=== PATIENT | male | born 1940 | race Caucasian/White ===

== ENCOUNTER 2018-08-12 11:35 | Inpatient (IN) | payer OTHER, SELFPAY ==
[2018-08-12 11:42] VITALS: BP 136/78; PULSE 100; RESP 16; TEMP 36
[2018-08-12 12:29] LABS: Bilirubin Negative (Negative); Blood Large (Negative); Clarity Cloudy; Glucose Negative (Negative); Ketones Trace mg/dL (Negative); Leukocyte Esterase Moderate (Negative); Nitrite Negative (Negative)
[2018-08-12 12:37] LABS: RBC >50 (0-2); WBC 20-50 HPF (0-5)
[2018-08-12 12:38] LABS: Bacteria Many HPF (Negative); C & S Indicated? Yes; Casts Negative LPF (Negative); Crystals Negative HPF (Negative); Epithelial Cells Rare HPF (Negative); Mucus Trace (Negative)
[2018-08-12 12:39] LABS: Abs Immature Grans 0.04 k/cumm (0.0-0.09); Absolute Basophil Count 0.03 k/cumm (0.0-0.2); Absolute Eosinophil Count 0.02 k/cumm (0.0-0.7); Absolute Lymphocyte Count 1.25 k/cumm (1.2-3.4); Absolute Monocyte Count 1.53 k/cumm (0.11-0.7); Basophils % 0.3; Eosinophils % 0.2; HCT 37.2 % (40.0-50.0); Immature Grans % 0.4; Lymphocytes % 11.2; Mean Corp. HGB Concentration 32.3 g/dL (32.0-36.0); Mean Corpuscular Hemoglobin 29.3 pg (27.0-33.0); Mean Corpuscular Volume 90.7 fL (80-95); Mean Platelet Volume 9.4 fL (8.0-11.0); Monocytes % 13.7; Neutrophils % 74.2; Platelet Count 176 x1000/uL (130-400); RBC Distribution Width 14.6 % (11.8-14.1); White Blood Cell Count 11.17 k/cumm (4.4-10.8)
[2018-08-12 12:40] LABS: Absolute Neutrophil Count 8.29 k/cumm (1.2-6.7)
[2018-08-12 12:52] LABS: ALT 45 U/L (12-78); AST 45 U/L (15-37); Albumin 2.5 g/dL (3.4-5.0); Alkaline Phosphatase 119 U/L (46-116); Anion Gap 7.2 mmol/L (3-11); BUN 27 mg/dL (7-18); Bilirubin, Total 1.9 mg/dL (0.2-1.0); CO2 25.8 mmol/L (21.0-32.0); CREATININE 2.31 mg/dL (0.70-1.30); Calcium 10.8 mg/dL (8.5-10.1); Chloride 101 mmol/L (98-107); Glucose 294 mg/dL (70-100); Potassium 4.6 mmol/L (3.5-5.1); Sodium 134 mmol/L (136-145)
[2018-08-12 13:17] LABS: RBC Morphology Normal
[2018-08-12] MEDS: Normal Saline 1,000 ML 250 ML IV (13:25)
--- NOTE | 2018-08-12 14:14 | ED.GENADUL_ITS ---
Discharge Plan Disposition Patient Disposition: [facility] INPATIENT Condition: Improving Discharge Details Chief Complaint: Urinary Clinical Impression: UTI (urinary tract infection), Acute renal insufficiency Reason For Visit: UTI,KENNETH,URINARY RETENTION Admit Date/Time: 08/12/18 14:50 Admit Provider: Tonny Carmona Attending Provider: Tonny Carmona Primary Care Provider: Ricardo Luis ED Provider: Parker Forman Discharge Data Discharge Date/Time-TO BE ENTERED AT DEPARTURE: 08/12/18 16:06 Medical Decision Making Patient presenting to the emergency department for chief complaint of urinary retention and suprapubic pain. states on Saturday patient began complaining of some urinary retention and chills. Initially this seemed slightly worse than his normal urinary retention but over the last couple days it is become more severe this morning started having a little more than dribbling urination and chills, weakness, mild confusion. states approximately a month ago patient was done at [facility] for urinary catheter placement that remained in place for 2 weeks due to urinary retention. Patient does have history of BPH. Physical exam shows some suprapubic tenderness otherwise no other acute findings are noted. To my examination director of medical staff services noted patient to have at least 800 mL's of urinary retention so Knox catheter verbal order was given. Requested nurse to send urinalysis off that sample. At time of my examination patient did state improvement in discomfort. Urine was very cloudy, blood- tinged, and mucousy. Plan to check labs, establish IV access, and give some fluids. Evaluation of patient's labs show a obvious urinary tract infection, mild leukocytosis, hyperglycemia, and some acute kidney injury. Patient was ordered 1 g of Rocephin and I did discuss with patient admission to the hospital due to mild confusion, urinary tract infection, and generalized weakness. Patient and family member were in agreement with this plan. I contacted inpatient hospitalist agreed to have patient admitted for further treatment and stabilization. Report was given to Dr. Carmona whom accepted pain Medical Records Medical records reviewed: Yes I reviewed the patient's medical records. Lab Data Lab results reviewed: Yes I reviewed the patient's lab results. HPI General Mode of arrival: wheelchair . Date/Time Provider Initiated Documentation: 08/12/18 11:48 . Limitations to Documentation: no limitations . Information obtained by: patient, family, RN notes reviewed and old records reviewed . History of Present Illness 77 year old M presents to the emergency department with the chief complaint of Urinary retention, described as severe, with intensity rated at 9. Quality is described as sharp, and is localized to the abdomen (superpubic). Patient reports no radiation. Patient started experiencing this day(s) (3) and it has been constant. No relieving factors improve symptom(s), No exacerbating factors reported . Patient notes no other symptoms.. Patient did receive the following treatments prior to arrival, none Related Data Home Medications Medication Instructions Recorded Confirmed multivitamin [Daily Multiple] 1 ea PO DAILY 12/11/16 08/12/18 blood sugar diagnostic [OneTouch #90 strip 02/12/17 08/12/18 Ultra Test] blood-glucose meter [OneTouch #1 kit 02/12/17 08/12/18 Ultra2] lancets [PansieveTouch UltraSoft #90 ea 02/12/17 08/12/18 Lancets] metformin 500 mg PO BID #180 tab-cap 04/17/17 08/12/18 amlodipine 5 mg PO DAILY #90 tab-cap 09/13/17 08/12/18 warfarin [Jantoven] 1 tab PO DIRECTED #180 tab 01/21/18 08/12/18 omeprazole 20 mg PO DAILY cap 04/15/18 08/12/18 furosemide 20 mg PO DAILY #90 tab 05/13/18 08/12/18 losartan 50 mg PO DAILY #90 tab-cap 07/09/18 08/12/18 potassium chloride [Klor-Con M10] 10 meq PO DAILY #90 tabcr 07/09/18 08/12/18 pravastatin 40 mg PO QPM #90 tab 07/09/18 08/12/18 metoprolol tartrate 50 mg PO BID 08/12/18 08/12/18 cephalexin [Keflex] 500 mg PO TID #20 cap 08/17/18 Previous Rx's Medication Instructions Recorded amlodipine 5 mg PO DAILY #90 tab-cap 09/13/17 warfarin [Jantoven] 1 tab PO DIRECTED #180 tab 01/21/18 furosemide 20 mg PO DAILY #90 tab 05/13/18 losartan 50 mg PO DAILY #90 tab-cap 07/09/18 potassium chloride [Klor-Con M10] 10 meq PO DAILY #90 tabcr 07/09/18 pravastatin 40 mg PO QPM #90 tab 07/09/18 cephalexin [Keflex] 500 mg PO TID #20 cap 08/17/18 Allergies Allergy/AdvReac Type Severity Reaction Status Date / Time No Known Allergies Allergy Unverified 06/04/18 11:23 General Stated Complaint: Urinary GISSEL: 3 Review of Systems Constitutional Reports chills, Reports fatigue, Reports fever(s), Reports malaise and Reports weakness Cardiovascular Denies chest pain and Denies dyspnea Respiratory Denies dyspnea Gastrointestinal Denies abdominal pain, Denies diarrhea, Denies nausea and Denies vomiting Genitourinary Reports as per HPI, Denies flank pain, Denies testicular pain, Reports urinary frequency, Reports urinary hesitancy, Reports urinary incontinence and Reports urinary urgency Integumentary/Breasts Denies rash Neurologic Reports confusion (mild) and Reports weakness Psychiatric Reports confusion (mild) Endocrine Reports fatigue PFSH Family History Mother Diabetes Heart disease Father Neoplasm Brother Neoplasm Brother No problems noted. Daughter No problems noted. Medical History BPH (benign prostatic hyperplasia) (Chronic) Afib (Chronic) GERD (gastroesophageal reflux disease) (Chronic) Hyperlipidemia (Acute) Hypertension (Chronic) Social History household members: spouse current occupational status: retired pets and animals: No Smoking/Tobacco Use Status: Never alcohol intake: current alcohol intake frequency: a few times a month substance use type: does not use special amor needs: No Surgical History Cholecystectomy (~1985) Colonoscopy - MAC (~2002) Replacement of total knee joint Tonsillectomy and adenoidectomy Exam Const General: cooperative Orientation: alert, awake and oriented x3 HENMT Head: normal to inspection Ears: hearing grossly normal bilaterally Mouth: oral mucosa abnormal (dry) Resp Effort & Inspection: normal respiratory effort and able to speak in complete sentences Auscultation: clear to auscultation bilaterally Cardio Rate: regular rate Rhythm: regular rhythm and regular rhythm Heart Sounds: S1 normal and S2 normal GI Inspection: obesity Palpation: soft, not firm and nontender Auscultation: normal bowel sounds Back/Spine/Pelvis Back: no CVA tenderness Skin General skin exam: no rashes or lesions noted and dry skin Rashes: no rashes Neuro General: alert, awake and oriented x3 Course 77-year-old man admitted with a complicated UTI. His urine ended up growing out 2 forms of Klebsiella both nearly pansensitive. He was treated with IV ceftriaxone with resultant improvement in his symptoms. He has urinary retention and is being worked up by Dr. Hobbs from urology. He had a Knox catheter for the first few days and successfully passed a voiding trial, he is voiding on his own in adequate amounts. He has hyperparathyroidism and ran an elevated calcium level of 11.0, corrects to 12.2. He has follow-up with surgery for what sounds like a parathyroidectomy on 08/20/2018 at [facility]. Vital Signs Temperature 36 C L 08/12/18 11:42 Pulse 100 H 08/12/18 11:42 Respiratory Rate 16 08/12/18 11:42 Blood Pressure 136/78 08/12/18 11:42 Temperature 36 C L 08/12/18 11:42 Pulse 100 H 08/12/18 11:42 Respiratory Rate 16 08/12/18 11:42 Respiratory Effort 08/12/18 11:46 Blood Pressure 136/78 08/12/18 11:42 Lab/Test Results Lab/Test Results: 08/12/18 12:15 Urine - Reflex from Ua Urine Culture - Pending Laboratory Tests Range/Units 08/12/18 08/12/18 08/12/18 12:15 12:20 12:20 WBC (4.4-10.8) k/cumm 11.17 H RBC (4.50-6.00) m/cumm 4.10 L Hgb (13.5-17.5) g/dL 12.0 L Hct (40.0-50.0) % 37.2 L MCV (80-95) fL 90.7 MCH (27.0-33.0) pg 29.3 MCHC (32.0-36.0) g/dL 32.3 RDW (11.8-14.1) % 14.6 H Plt Count (130-400) x1000/uL 176 MPV (8.0-11.0) fL 9.4 Immature Gran % 0.4 Neutrophils % 74.2 Lymphocytes % 11.2 Monocytes % 13.7 Eosinophils % 0.2 Basophils % 0.3 Absolute Neutrophils (1.2-6.7) k/cumm 8.29 H Absolute Lymphocytes (1.2-3.4) k/cumm 1.25 Absolute Monocytes (0.11-0.7) k/cumm 1.53 H Absolute Eosinophils (0.0-0.7) k/cumm 0.02 Absolute Basophils (0.0-0.2) k/cumm 0.03 Differential Comment Comment RBC Morphology Normal Sodium (136-145) mmol/L 134 L Potassium (3.5-5.1) mmol/L 4.6 Chloride (98-107) mmol/L 101 Carbon Dioxide (21.0-32.0) mmol/L 25.8 Anion Gap (3-11) mmol/L 7.2 BUN (7-18) mg/dL 27 H Creatinine (0.70-1.30) mg/dL 2.31 H Estimated GFR/1.73 m2 (mL/min/1.73m2) 27.50 Glucose (70-100) mg/dL 294 H Calcium (8.5-10.1) mg/dL 10.8 H Total Bilirubin (0.2-1.0) mg/dL 1.9 H AST (15-37) U/L 45 H ALT (12-78) U/L 45 Alkaline Phosphatase (46-116) U/L 119 H Total Protein (6.4-8.2) g/dL 7.0 Albumin (3.4-5.0) g/dL 2.5 L Urine Color (Yellow) Brown Urine Clarity Cloudy Urine pH (5-8) 7.0 Ur Specific [place] (1.005-1.025) 1.020 Urine Protein (Negative) mg/dL >=300 H Urine Ketones (Negative) mg/dL Trace H Urine Blood (Negative) Large H Urine Nitrite (Negative) Negative Urine Bilirubin (Negative) Negative Urine Urobilinogen (Up TO 0.2) EU/dL 1.0 H Ur Leukocyte Esterase (Negative) Moderate H Urine RBC (0-2) >50 H Urine WBC (0-5) HPF 20-50 Ur Epithelial Cells (Negative) HPF Rare Urine Crystals (Negative) HPF Negative Urine Bacteria (Negative) HPF Many Urine Casts (Negative) LPF Negative Urine Mucus (Negative) Trace Ur Culture Indicated? Yes Urine Glucose (Negative) mg/dL Negative
[2018-08-12 14:18] LABS: Lactate-non-spesis 2.2 mmol/L (0.6-1.4)
[2018-08-12 15:48] LABS: Prothrombin Time 52.4 sec (9.3-10.8)
[2018-08-12 15:53] LABS: INR 5.7 (1.0-3.5); PTT Activated 60.2 sec (21.0-31.4)
[2018-08-12 16:31] VITALS: BP 140/88; PULSE 96; RESP 20; TEMP 38.6; O2SAT 95
[2018-08-12 16:50] VITALS: BP 140/88; PULSE 96; RESP 20; TEMP 38.6; O2SAT 94
[2018-08-12] MEDS: LEVOFLOXACIN 750 MG/150 ML BAG 150 MG IVPB (17:14)
--- NOTE | 2018-08-12 18:22 | HOME_ITS ---
Home Ventilator Equipment Home care company [employer] Reason: Obstructive Sleep Apnea Make: Respironics Model: Dreamstation Mask type: Face mask Mask size: Large Mode: BiPAP Settings: /6 PS 4.0 Oxygen bleed in (lpm): 0 Condition: Good Date last checked: 08/12/18 Year of last sleep study: Compliance Daily Comments:
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
--- NOTE | 2018-08-12 19:08 | NUR.NOTE ---
1633-Pt admitted from the ED via stretcher. Pt stood and pivoted from the stretcher to his bed with 2 assist. Balance noted to be poor. Pt SOB related to this transfer activity. VSS upon arrival. See initial shift assesment for arrival head to toe assesment.
[2018-08-12 19:21] VITALS: TEMP 38.6
[2018-08-12] MEDS: Acetaminophen 325 MG TAB PO (19:21)
[2018-08-12] MEDS: Metoprolol 50 MG TAB PO (19:21)
[2018-08-12] MEDS: Pravastatin 40 MG TAB PO (19:21)
[2018-08-12] MEDS: Normal Saline 1,000 ML 75 ML IV (22:44)
[2018-08-12 23:44] VITALS: BP 142/74; PULSE 87; RESP 22; TEMP 37.7; O2SAT 96
[2018-08-13 07:05] VITALS: RESP 18; O2SAT 94
[2018-08-13 07:27] LABS: Abs Immature Grans 0.04 k/cumm (0.0-0.09); Absolute Basophil Count 0.02 k/cumm (0.0-0.2); Absolute Eosinophil Count 0.05 k/cumm (0.0-0.7); Absolute Lymphocyte Count 1.55 k/cumm (1.2-3.4); Absolute Monocyte Count 1.37 k/cumm (0.11-0.7); Absolute Neutrophil Count 7.53 k/cumm (1.2-6.7); Basophils % 0.2; Eosinophils % 0.5; HCT 35.5 % (40.0-50.0); HGB 11.4 g/dL (13.5-17.5); Immature Grans % 0.4; Lymphocytes % 14.7; Mean Corp. HGB Concentration 32.1 g/dL (32.0-36.0); Mean Corpuscular Hemoglobin 29.1 pg (27.0-33.0); Mean Corpuscular Volume 90.6 fL (80-95); Mean Platelet Volume 10.2 fL (8.0-11.0); Neutrophils % 71.2; Platelet Count 176 x1000/uL (130-400); RBC 3.92 m/cumm (4.50-6.00); RBC Distribution Width 14.4 % (11.8-14.1); White Blood Cell Count 10.56 k/cumm (4.4-10.8)
[2018-08-13 07:39] LABS: Prothrombin Time 46.9 sec (9.3-10.8)
[2018-08-13 07:43] LABS: Anion Gap 8.7 mmol/L (3-11); BUN 33 mg/dL (7-18); CO2 21.3 mmol/L (21.0-32.0); CREATININE 2.41 mg/dL (0.70-1.30); Calcium 10.8 mg/dL (8.5-10.1); Chloride 104 mmol/L (98-107); Estimated GFR 26.19 (mL/min/1.73m2); Glucose 189 mg/dL (70-100); Potassium 4.4 mmol/L (3.5-5.1); Sodium 134 mmol/L (136-145)
--- NOTE | 2018-08-13 07:43 | DI.US_ITS ---
SYMPTOM/DIAGNOSIS: KENNETH, URINARY OBSTRUCTION, UTI RENAL ULTRASOUND: The study is technically limited due to the patient's body habitus. The right kidney measures 13.7 x 7.2 x 6.0 cm. There are multiple stones. There is no evidence of gross hydronephrosis. There is a 7.5 x 8.1 x 6.3 cm cyst in the lateral portion of the kidney. The left kidney measures 139 x 7 8 cm. There are multiple stones and no evidence of gross hydronephrosis. A Knox catheter is identified in place in an empty bladder.
[2018-08-13 07:55] LABS: INR 5.1 (1.0-3.5)
[2018-08-13 08:05] VITALS: BP 138/102; PULSE 67; RESP 26; TEMP 37.5; O2SAT 97
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
[2018-08-13 09:14] LABS: Lactate-non-spesis 1.4 mmol/L (0.6-1.4)
[2018-08-13] MEDS: Multivitamin TAB 1 TAB PO (09:37)
[2018-08-13] MEDS: Normal Saline Flush 10 ML SYR (09:37)
[2018-08-13] MEDS: Potassium Chloride 10 MEQ TABCR PO (09:37)
[2018-08-13] MEDS: Metoprolol 50 MG TAB PO ×2 (09:37→19:26)
[2018-08-13] MEDS: Tamsulosin 0.4 MG CAPCR PO (09:38)
[2018-08-13] MEDS: Omeprazole 20 MG CAPCR PO (09:38)
[2018-08-13] MEDS: Insulin Aspart 300 UNITS/3 ML PEN SC ×3 (09:38→17:15)
[2018-08-13] MEDS: amLODIPine 5 MG TAB PO (09:38)
--- NOTE | 2018-08-13 12:42 | PHARADMIT ---
Addendum entered by Jose Sullivan III 08/15/18 16:17: Pharmacy Note Subjective Urine sensitivities show Klebsiella sens> to Rocephin. Zosyn/Levaquin DC'd Objective VS-OK INR-5.2 K+4.5 SCr-1.92 H&H-up Plts-OK BM yesterday Assessment Lasix & ARB held due to KENNETH, Lopressor & Norvasc continue wit parameters. Plan If urinary etention continues will be consulted Original Note: Addendum entered by Jose Sullivan III 08/14/18 15:54: Pharmacy Note Subjective Fevers persistent x 2 days on Levaquin, Zosyn 4.5gm IV q6hrs added. Treating UTI with urinary retention. Objective VS-OK INR-4.6 Lytes,-ok SCr-2.19 H&H-10.3/32.5 Plts-175 BM today Assessment Flomax started. MD waiting for INR to decrease (does not want Vit-K at this time) Plan Watch renal function and ABX dosing Original Note: Admission Pharmacy Clinical Review UTI, KENNETH, Urinary retention Code Status Full Code Current Weight Wgt-142.3 kg Renally Cleared and Narrow Therapeutic Index Meds CrCl~ 29 mL/min Meds-OK QTc Value / Action Taken NA BP Control, Fever BP-138/102 Tmax- 37.7C Electrolytes reviewed Na- 134 K+4.4 DVT Prophylaxis No High INR (5.1) Opiate Usage / Scheduled Bowel Regimen Ordered No Yes Plt/SCr for Heparin / Enoxaparin Plts-176 SCr- 2.41 INR for Warfarin INR-5.1 H/H stable, WBC/Bands H&H- 11.4/35.5 WBC- 10.56 Antibiotic appropriateness Levaquin Cultures and Sensitivities Urine- Gram (-) lam Surgical ABX d/c within 24 hr na DM control / Insulin Dosing BG-189 Aspart, Heart Failure (Check EF%) (MIS's, B-Block, Diuretics) Norvasc, Lopressor IV to PO Switch No Home Meds Reviewed Yes Home Meds Not Ordered Wafarin-on hold, Lasix. Losartan, Metformin Comments
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
--- NOTE | 2018-08-13 14:19 | NT_ITS ---
Date of service: 08/13/18 Time of Service: 14:19 PT Notes 08/13/18 Patient refused afternoon PT session, stating that he was in too much pain. Shirlene Barber, CLAIM SPECIALIST
[2018-08-13] MEDS: Normal Saline 1,000 ML 75 ML IV (14:21)
[2018-08-13 16:07] VITALS: BP 95/60; PULSE 87; RESP 20; TEMP 37.2; O2SAT 95
--- NOTE | 2018-08-13 16:31 | W.PM.PROGNOT ---
Date of service: 08/13/18 Time of Service: 16:32 Assessment and Plan (1) Acute renal insufficiency: Current visit: No Status: Acute In setting of urinary retention, likely obstructive nephropathy. Treat urinary tract infection and continue Griffin catheter. No evidence of hydronephrosis by ultrasound. Monitor kidney function with daily renal panel, avoid nephrotoxins, and renally dose medications when appropriate. Will also attempt to treat patient's prostatic hypertrophy with an alpha geraldine. (2) BPH (benign prostatic hyperplasia): Current visit: Yes Status: Chronic Initiate Flomax. Currently with evidence of urinary retention in setting of acute infection and acute infection ? continue Rgiffin catheter with plans for voiding trial in the near future. (3) Afib: Current visit: Yes Status: Chronic Continue beta-geraldine therapy. Hold Coumadin in setting of supratherapeutic INR, and monitor INR daily. (4) GERD (gastroesophageal reflux disease): Current visit: Yes Status: Chronic On daily omeprazole. (5) Essential hypertension, benign: Current visit: Yes Status: Chronic Continue beta-geraldine and calcium channel geraldine therapy with hold parameters. Currently with ARB and Lasix on hold due to acute kidney injury. (6) Hyperlipidemia: Current visit: Yes Status: Chronic Continue pravastatin. (7) Diabetes mellitus type 2 in obese: Current visit: Yes Status: Chronic Hold Metformin, Continue sliding scale coverage, and ADA diet. (8) LUCAS on CPAP: Current visit: Yes Status: Chronic Home CPAP ordered. (9) UTI (urinary tract infection): Current visit: No Status: Acute Continue renally dosed Levaquin, currently day #2, and monitor urine and blood cultures. Urine currently with Gram negative rods, not yet speciated. (10) CHF (congestive heart failure): Current visit: Yes Status: Chronic History of nonischemic cardiomyopathy, with last ejection fraction showing 45-50% by echo in 2016. Currently with furosemide and ARB on hold secondary to acute kidney injury, patient is also receiving gentle hydration secondary to kidney injury. Monitor fluid status carefully. While overall volume overloaded chronically, he does not appear to be acutely in heart failure. (11) DVT prophylaxis: Current visit: Yes Status: Acute Monitor daily INR. Subjective Interval history since last seen: 77-year-old man with past medical history significant for A. fib, nonischemic cardiomyopathy with an EF of 45-50%, LUCAS, and diabetes admitted from [facility] emergency department with evidence of Urinary Retention, UTI, and KENNETH. Mr. Winkler developed urinary retention requiring Griffin catheter placement at [facility], with successful removal following a 2-week course of Griffin placement. The patient's spouse also remarks that there was evidence of numerous kidney stones on imaging, and that he was scheduled to follow-up with urology in the future. She states that his urinary retention was on the basis of an enlarged prostate, but that no specific treatments was prescribed to him. The patient began having symptoms 2 days prior to admission that included shaking chills, urinary frequency, pyuria, and hematuria. He was admitted and started on antibiotic therapy, with a griffin catheter placed and started on concurrent alpha-geraldine. Today he reports some improvement overall in his symptoms, and he has remained afebrile since last night. No other events reported. Exam Narrative Exam Narrative: General: Patient appears comfortable, sitting up in bed, AAOX3, NAD Neck: Supple CV: Regular, mildly tachycardic, S1S2,. Obese in contour. Murmurs, or gallops. Pulmonary: Clear to auscultation bilaterally, no crackles, wheezing, or rhonchi. Appears tachypneic but reports it's his baseline. Abdomen: + Bowel Sounds, soft, nontender, nondistended. Obese in contour. Vascular: 2+ bilateral lower extremity edema with chronic hyperpigmentation : Griffin Catheter in place draining bloody appearing urine Psych: Normal mood and affect. Objective Objective Clinical Data: Abnormal lab results 08/13/18 08/13/18 08/13/18 Range/Units 06:50 06:50 06:50 RBC 3.92 L (4.50-6.00) m/cumm Hgb 11.4 L (13.5-17.5) g/dL Hct 35.5 L (40.0-50.0) % RDW 14.4 H (11.8-14.1) % Absolute Neutrophils 7.53 H (1.2-6.7) k/cumm Absolute Monocytes 1.37 H (0.11-0.7) k/cumm PT 46.9 H (9.3-10.8) sec INR 5.1 H* D (1.0-3.5) Sodium 134 L (136-145) mmol/L BUN 33 H (7-18) mg/dL Creatinine 2.41 H (0.70-1.30) mg/dL Glucose 189 H D (70-100) mg/dL Calcium 10.8 H (8.5-10.1) mg/dL Vital Signs Temperature 37.2 C 08/13/18 16:07 Temperature Source Tympanic 08/13/18 16:07 Pulse 87 08/13/18 16:07 Pulse Rhythm Regular 08/13/18 09:30 Respiratory Rate 20 08/13/18 16:07 Respiratory Effort Non-Labored 08/13/18 09:30 Respiratory Depth Normal 08/13/18 09:30 Respiratory Pattern Normal 08/13/18 09:30 Blood Pressure 95/60 L 08/13/18 16:07 Pulse Oximetry 95 08/13/18 16:07 Oxygen Delivery Method Room Air 08/13/18 16:07 Oxygen Flow Rate 0 08/13/18 16:07 Fraction of Inspired Oxygen (FIO2) 21 08/13/18 07:05 Pain Level 0 08/12/18 16:50 Intake & Output 08/12/18 08/13/18 08/13/18 23:59 11:59 23:59 Intake Total 1250 / 1250 Output Total 3750 / 3750 350 / 350 750 / 750 Balance -3750 / -3750 -340 / -340 500 / 500 Weight 142.3 kg Intake: IV 1000 / 1000 Oral 250 / 250 Output: Urine 3750 / 3750 350 / 350 750 / 750 Other: Urine Color Dark Red Dark Red Dark Red Urine Appearance Cloudy Clear Hematuria Hematuria Clots Voiding Methods Indwelling Catheter Laboratory Results WBC 10.56 k/cumm (4.4-10.8) 08/13/18 06:50 RBC 3.92 m/cumm (4.50-6.00) L 08/13/18 06:50 Hgb 11.4 g/dL (13.5-17.5) L 08/13/18 06:50 Hct 35.5 % (40.0-50.0) L 08/13/18 06:50 MCV 90.6 fL (80-95) 08/13/18 06:50 MCH 29.1 pg (27.0-33.0) 08/13/18 06:50 MCHC 32.1 g/dL (32.0-36.0) 08/13/18 06:50 RDW 14.4 % (11.8-14.1) H 08/13/18 06:50 Plt Count 176 x1000/uL (130-400) 08/13/18 06:50 MPV 10.2 fL (8.0-11.0) 08/13/18 06:50 Immature Gran % 0.4 08/13/18 06:50 Neutrophils % 71.2 08/13/18 06:50 Lymphocytes % 14.7 08/13/18 06:50 Monocytes % 13.0 08/13/18 06:50 Eosinophils % 0.5 08/13/18 06:50 Basophils % 0.2 08/13/18 06:50 Absolute Neutrophils 7.53 k/cumm (1.2-6.7) H 08/13/18 06:50 Absolute Lymphocytes 1.55 k/cumm (1.2-3.4) 08/13/18 06:50 Absolute Monocytes 1.37 k/cumm (0.11-0.7) H 08/13/18 06:50 Absolute Eosinophils 0.05 k/cumm (0.0-0.7) 08/13/18 06:50 Absolute Basophils 0.02 k/cumm (0.0-0.2) 08/13/18 06:50 Differential Comment Comment 08/12/18 12:20 RBC Morphology Normal 08/12/18 12:20 PT 46.9 sec (9.3-10.8) H 08/13/18 06:50 INR 5.1 (1.0-3.5) H* D 08/13/18 06:50 APTT 60.2 sec (21.0-31.4) H 08/12/18 15:10 Sodium 134 mmol/L (136-145) L 08/13/18 06:50 Potassium 4.4 mmol/L (3.5-5.1) 08/13/18 06:50 Chloride 104 mmol/L (98-107) 08/13/18 06:50 Carbon Dioxide 21.3 mmol/L (21.0-32.0) 08/13/18 06:50 Anion Gap 8.7 mmol/L (3-11) 08/13/18 06:50 BUN 33 mg/dL (7-18) H 08/13/18 06:50 Creatinine 2.41 mg/dL (0.70-1.30) H 08/13/18 06:50 Estimated GFR/1.73 m2 26.19 (mL/min/1.73m2) 08/13/18 06:50 Glucose 189 mg/dL (70-100) H D 08/13/18 06:50 Lactate 1.4 mmol/L (0.6-1.4) 08/13/18 09:03 Calcium 10.8 mg/dL (8.5-10.1) H 08/13/18 06:50 Total Bilirubin 1.9 mg/dL (0.2-1.0) H 08/12/18 12:20 AST 45 U/L (15-37) H 08/12/18 12:20 ALT 45 U/L (12-78) 08/12/18 12:20 Alkaline Phosphatase 119 U/L (46-116) H 08/12/18 12:20 Total Protein 7.0 g/dL (6.4-8.2) 08/12/18 12:20 Albumin 2.5 g/dL (3.4-5.0) L 08/12/18 12:20 Urine Color Brown (Yellow) 08/12/18 12:15 Urine Clarity Cloudy 08/12/18 12:15 Urine pH 7.0 (5-8) 08/12/18 12:15 Ur Specific Rice 1.020 (1.005-1.025) 08/12/18 12:15 Urine Protein >=300 mg/dL (Negative) H 08/12/18 12:15 Urine Ketones Trace mg/dL (Negative) H 08/12/18 12:15 Urine Blood Large (Negative) H 08/12/18 12:15 Urine Nitrite Negative (Negative) 08/12/18 12:15 Urine Bilirubin Negative (Negative) 08/12/18 12:15 Urine Urobilinogen 1.0 EU/dL (Up TO 0.2) H 08/12/18 12:15 Ur Leukocyte Esterase Moderate (Negative) H 08/12/18 12:15 Urine RBC >50 (0-2) H 08/12/18 12:15 Urine WBC 20-50 HPF (0-5) 08/12/18 12:15 Ur Epithelial Cells Rare HPF (Negative) 08/12/18 12:15 Urine Crystals Negative HPF (Negative) 08/12/18 12:15 Urine Bacteria Many HPF (Negative) 08/12/18 12:15 Urine Casts Negative LPF (Negative) 08/12/18 12:15 Urine Mucus Trace (Negative) 08/12/18 12:15 Ur Culture Indicated? Yes 08/12/18 12:15 Urine Glucose Negative mg/dL (Negative) 08/12/18 12:15 Objective Narrative Objective Narrative: Exam(s) a US:US renal SYMPTOM/DIAGNOSIS: KENNETH, URINARY OBSTRUCTION, UTI RENAL ULTRASOUND: The study is technically limited due to the patient's body habitus. The right kidney measures 13.7 x 7.2 x 6.0 cm. There are multiple stones. There is no evidence of gross hydronephrosis. There is a 7.5 x 8.1 x 6.3 cm cyst in the lateral portion of the kidney. The left kidney measures 139 x 7 8 cm. There are multiple stones and no evidence of gross hydronephrosis. A Griffin catheter is identified in place in an empty bladder.
[2018-08-13] MEDS: Pravastatin 40 MG TAB PO (19:26)
[2018-08-14] VITALS (7 sets, daily range): BP systolic 90–113; BP diastolic 58–73; PULSE 74–90; RESP 22–24; TEMP 36.2–38.2; O2SAT 93–97
[2018-08-14] MEDS: Normal Saline 1,000 ML 75 ML IV ×2 (04:05→19:11)
[2018-08-14 07:48] LABS: Abs Immature Grans 0.02 k/cumm (0.0-0.09); Anion Gap 7.7 mmol/L (3-11); BUN 38 mg/dL (7-18); CO2 21.3 mmol/L (21.0-32.0); CREATININE 2.19 mg/dL (0.70-1.30); Calcium 10.3 mg/dL (8.5-10.1); Chloride 106 mmol/L (98-107); Estimated GFR 29.25 (mL/min/1.73m2); Glucose 205 mg/dL (70-100); HCT 32.5 % (40.0-50.0); HGB 10.3 g/dL (13.5-17.5); Mean Corp. HGB Concentration 31.7 g/dL (32.0-36.0); Mean Corpuscular Hemoglobin 28.6 pg (27.0-33.0); Mean Corpuscular Volume 90.3 fL (80-95); Mean Platelet Volume 10.3 fL (8.0-11.0); Platelet Count 175 x1000/uL (130-400); Potassium 4.1 mmol/L (3.5-5.1); RBC Distribution Width 14.3 % (11.8-14.1); Sodium 135 mmol/L (136-145); White Blood Cell Count 7.91 k/cumm (4.4-10.8)
[2018-08-14 08:06] LABS: Prothrombin Time 42.7 sec (9.3-10.8)
[2018-08-14 08:08] LABS: INR 4.6 (1.0-3.5)
[2018-08-14 08:17] LABS: Absolute Neutrophil Count 5.46 k/cumm (1.2-6.7)
[2018-08-14 08:18] LABS: Absolute Eosinophil Count 0.08 k/cumm (0.0-0.7); Absolute Lymphocyte Count 1.66 k/cumm (1.2-3.4); Absolute Monocyte Count 0.71 k/cumm (0.11-0.7); Atypical Lymphocytes % 2
[2018-08-14 08:19] LABS: Diff Comment Manual Differential; RBC Morphology Normal
[2018-08-14] MEDS: Multivitamin TAB 1 TAB PO (08:23)
[2018-08-14] MEDS: Tamsulosin 0.4 MG CAPCR PO (08:23)
[2018-08-14] MEDS: Omeprazole 20 MG CAPCR PO (08:23)
[2018-08-14] MEDS: Potassium Chloride 10 MEQ TABCR PO (08:23)
--- NOTE | 2018-08-14 08:39 | PT.INTREAT ---
Date of service: 08/14/18 Time of Service: 08:39 PT Notes Inpatient Physical Therapy Treatment Note Date: 08/14/18 SUBJECTIVE: Sav states that he is feeling much better this morning, compared to yesterday. He is agreeable to PT, although states that he has not moved much over the past week, as he as not felt well. OBJECTIVE: PAIN: No c/o pain BED MOBILITY/TRANSFERS Sit-stand: SBA Stand-sit: SBA GAIT Assistive Device: FWW Weight bearing: Full Assist: SBA Distance: 150' Deviation: C/o increased fatigue, cueing for upright posture ASSESSMENT: Patient tolerated a progression in gait distance with FWW support and SBA, requiring cueing for upright posture, and with c/o increased fatigue. Patient would benefit from continued strengthening and gait and transfer training to improved ability to perform functional daily tasks with increased independence. PLAN: Continue with PT's POC TREATMENT CODE/TIME: 20 minutes; STEWART
[2018-08-14] MEDS: Insulin Aspart 300 UNITS/3 ML PEN SC ×3 (08:54→16:54)
--- NOTE | 2018-08-14 14:58 | NT_ITS ---
Date of service: 08/14/18 Time of Service: 14:00 PT Notes PHYSICAL THERAPY NOTE 08/14/18 Attempted to see for PT session, pt sleeping soundly in bed with Bipap in place , sleeping in chair leaning on patient's bed. Did not disturb. Will progress mobility in am Riya Fitzgerald PT
--- NOTE | 2018-08-14 15:31 | W.PM.PROGNOT ---
Assessment and Plan (1) UTI (urinary tract infection): Current visit: No Status: Acute Persistent fevers despite two days of Levaquin, with urine culture showing GNR X2 colonies, both >100,000. Unfortunately it appears that Blood Cultures were not collected in the emergency department. Broaden antibiotic coverage to Zosyn and monitor urine and blood cultures. Urine currently with Gram negative rods, not yet speciated. (2) Acute renal insufficiency: Current visit: No Status: Acute In setting of urinary retention, likely obstructive nephropathy. Treat urinary tract infection and continue Griffin catheter. No evidence of hydronephrosis by ultrasound. Monitor kidney function with daily renal panel, avoid nephrotoxins, and renally dose medications when appropriate. Will also attempt to treat patient's prostatic hypertrophy with an alpha geraldine. Current creatinine still elevated but mildly improved this morning. (3) BPH (benign prostatic hyperplasia): Current visit: No Status: Chronic Initiate Flomax. Currently with evidence of urinary retention in setting of acute infection and acute infection ? continue Griffin catheter with plans for voiding trial in the near future. (4) Afib: Current visit: No Status: Chronic Continue beta-geraldine therapy. Hold Coumadin in setting of supratherapeutic INR, and monitor INR daily. (5) GERD (gastroesophageal reflux disease): Current visit: No Status: Chronic On daily omeprazole. (6) Essential hypertension, benign: Current visit: No Status: Chronic Continue beta-geraldine and calcium channel geraldine therapy with hold parameters. Currently with ARB and Lasix on hold due to acute kidney injury. (7) Hyperlipidemia: Current visit: No Status: Chronic Continue pravastatin. (8) Diabetes mellitus type 2 in obese: Current visit: No Status: Chronic Hold Metformin, Continue sliding scale coverage, and ADA diet. (9) LUCAS on CPAP: Current visit: No Status: Chronic Home CPAP ordered. (10) CHF (congestive heart failure): Current visit: No Status: Chronic History of nonischemic cardiomyopathy, with last ejection fraction showing 45-50% by echo in 2016. Currently with furosemide and ARB on hold secondary to acute kidney injury, patient is also receiving gentle hydration secondary to kidney injury. Monitor fluid status carefully. While overall volume overloaded chronically, he does not appear to be acutely in heart failure. (11) DVT prophylaxis: Current visit: No Status: Acute Monitor daily INR. Subjective Interval history since last seen: 77-year-old man with past medical history significant for A. fib, nonischemic cardiomyopathy with an EF of 45-50%, LUCAS, and diabetes admitted from [facility] emergency department with evidence of Urinary Retention, UTI, and KENNETH. Mr. Winkler developed urinary retention requiring Griffin catheter placement at [facility], with successful removal following a 2-week course of Griffin placement. The patient's spouse also remarks that there was evidence of numerous kidney stones on imaging, and that he was scheduled to follow-up with urology in the future. She states that his urinary retention was on the basis of an enlarged prostate, but that no specific treatments was prescribed to him. The patient began having symptoms 2 days prior to admission that included shaking chills, urinary frequency, pyuria, and hematuria. He was admitted and started on antibiotic therapy, with a griffin catheter placed and started on concurrent alpha-geraldine. Today he reports some improvement overall in his symptoms, and his reports improvement overall in his appearance and alertness. The patient was febrile again last night. No other events reported. Exam Narrative Exam Narrative: General: Patient appears comfortable, sitting up in bed, AAOX3, NAD Neck: Supple CV: Regular, mildly tachycardic, S1S2,. Obese in contour. Murmurs, or gallops. Pulmonary: Clear to auscultation bilaterally, no crackles, wheezing, or rhonchi. Appears tachypneic but reports it's his baseline. Abdomen: + Bowel Sounds, soft, nontender, nondistended. Obese in contour. Vascular: 2+ bilateral lower extremity edema with chronic hyperpigmentation : Griffin Catheter in place draining bloody appearing urine Psych: Normal mood and affect. Objective Objective Clinical Data: Abnormal lab results 08/14/18 08/14/18 08/14/18 Range/Units 07:05 07:05 07:05 RBC 3.60 L (4.50-6.00) m/cumm Hgb 10.3 L (13.5-17.5) g/dL Hct 32.5 L (40.0-50.0) % MCHC 31.7 L (32.0-36.0) g/dL RDW 14.3 H (11.8-14.1) % Absolute Monocytes 0.71 H (0.11-0.7) k/cumm PT 42.7 H (9.3-10.8) sec INR 4.6 H* (1.0-3.5) Sodium 135 L (136-145) mmol/L BUN 38 H (7-18) mg/dL Creatinine 2.19 H (0.70-1.30) mg/dL Glucose 205 H (70-100) mg/dL Calcium 10.3 H (8.5-10.1) mg/dL Vital Signs Temperature 37.1 C 08/14/18 15:22 Temperature Source Tympanic 08/14/18 15:22 Pulse 81 08/14/18 15:22 Pulse Rhythm Regular 08/14/18 10:48 Respiratory Rate 22 08/14/18 15:22 Respiratory Effort 08/14/18 10:48 Respiratory Depth Shallow 08/14/18 10:48 Respiratory Pattern Normal 08/14/18 10:48 Blood Pressure 103/73 08/14/18 15:22 Pulse Oximetry 94 L 08/14/18 15:22 Oxygen Delivery Method Room Air 08/14/18 15:22 Oxygen Flow Rate 0 08/14/18 15:22 Fraction of Inspired Oxygen (FIO2) 21 08/13/18 07:05 Pain Level 0 08/14/18 13:00 Comment 08/14/18 15:22 Intake & Output 08/13/18 08/14/18 08/14/18 23:59 11:59 23:59 Intake Total 2090 / 2090 1360 / 1360 360 / 360 Output Total 1625 / 1625 900 / 900 400 / 400 Balance 465 / 465 460 / 460 -40 / -40 Intake: IV 1600 / 1600 1000 / 1000 Oral 490 / 490 360 / 360 360 / 360 Output: Urine 1625 / 1625 900 / 900 400 / 400 Other: Urine Color Dark Red Dark Hui Straw Urine Appearance Clear Clear Hematuria Hematuria Clots Stool Size Moderate Stool Characteristics Soft Formed Brown Laboratory Results WBC 7.91 k/cumm (4.4-10.8) 08/14/18 07:05 RBC 3.60 m/cumm (4.50-6.00) L 08/14/18 07:05 Hgb 10.3 g/dL (13.5-17.5) L 08/14/18 07:05 Hct 32.5 % (40.0-50.0) L 08/14/18 07:05 MCV 90.3 fL (80-95) 08/14/18 07:05 MCH 28.6 pg (27.0-33.0) 08/14/18 07:05 MCHC 31.7 g/dL (32.0-36.0) L 08/14/18 07:05 RDW 14.3 % (11.8-14.1) H 08/14/18 07:05 Plt Count 175 x1000/uL (130-400) 08/14/18 07:05 MPV 10.3 fL (8.0-11.0) 08/14/18 07:05 Immature Gran % 0.0 08/14/18 07:05 Neutrophils % 69.0 08/14/18 07:05 Lymphocytes % 19.0 08/14/18 07:05 Monocytes % 9.0 08/14/18 07:05 Eosinophils % 1.0 08/14/18 07:05 Basophils % 0.0 08/14/18 07:05 Absolute Neutrophils 5.46 k/cumm (1.2-6.7) 08/14/18 07:05 Absolute Lymphocytes 1.66 k/cumm (1.2-3.4) 08/14/18 07:05 Absolute Monocytes 0.71 k/cumm (0.11-0.7) H 08/14/18 07:05 Absolute Eosinophils 0.08 k/cumm (0.0-0.7) 08/14/18 07:05 Absolute Basophils 0.00 k/cumm (0.0-0.2) 08/14/18 07:05 Differential Comment Manual differential 08/14/18 07:05 Atypical Lymphocytes 2 08/14/18 07:05 RBC Morphology Normal 08/14/18 07:05 PT 42.7 sec (9.3-10.8) H 08/14/18 07:05 INR 4.6 (1.0-3.5) H* 08/14/18 07:05 APTT 60.2 sec (21.0-31.4) H 08/12/18 15:10 Sodium 135 mmol/L (136-145) L 08/14/18 07:05 Potassium 4.1 mmol/L (3.5-5.1) 08/14/18 07:05 Chloride 106 mmol/L (98-107) 08/14/18 07:05 Carbon Dioxide 21.3 mmol/L (21.0-32.0) 08/14/18 07:05 Anion Gap 7.7 mmol/L (3-11) 08/14/18 07:05 BUN 38 mg/dL (7-18) H 08/14/18 07:05 Creatinine 2.19 mg/dL (0.70-1.30) H 08/14/18 07:05 Estimated GFR/1.73 m2 29.25 (mL/min/1.73m2) 08/14/18 07:05 Glucose 205 mg/dL (70-100) H 08/14/18 07:05 Lactate 1.4 mmol/L (0.6-1.4) 08/13/18 09:03 Calcium 10.3 mg/dL (8.5-10.1) H 08/14/18 07:05 Total Bilirubin 1.9 mg/dL (0.2-1.0) H 08/12/18 12:20 AST 45 U/L (15-37) H 08/12/18 12:20 ALT 45 U/L (12-78) 08/12/18 12:20 Alkaline Phosphatase 119 U/L (46-116) H 08/12/18 12:20 Total Protein 7.0 g/dL (6.4-8.2) 08/12/18 12:20 Albumin 2.5 g/dL (3.4-5.0) L 08/12/18 12:20 Urine Color Brown (Yellow) 08/12/18 12:15 Urine Clarity Cloudy 08/12/18 12:15 Urine pH 7.0 (5-8) 08/12/18 12:15 Ur Specific [place] 1.020 (1.005-1.025) 08/12/18 12:15 Urine Protein >=300 mg/dL (Negative) H 08/12/18 12:15 Urine Ketones Trace mg/dL (Negative) H 08/12/18 12:15 Urine Blood Large (Negative) H 08/12/18 12:15 Urine Nitrite Negative (Negative) 08/12/18 12:15 Urine Bilirubin Negative (Negative) 08/12/18 12:15 Urine Urobilinogen 1.0 EU/dL (Up TO 0.2) H 08/12/18 12:15 Ur Leukocyte Esterase Moderate (Negative) H 08/12/18 12:15 Urine RBC >50 (0-2) H 08/12/18 12:15 Urine WBC 20-50 HPF (0-5) 08/12/18 12:15 Ur Epithelial Cells Rare HPF (Negative) 08/12/18 12:15 Urine Crystals Negative HPF (Negative) 08/12/18 12:15 Urine Bacteria Many HPF (Negative) 08/12/18 12:15 Urine Casts Negative LPF (Negative) 08/12/18 12:15 Urine Mucus Trace (Negative) 08/12/18 12:15 Ur Culture Indicated? Yes 08/12/18 12:15 Urine Glucose Negative mg/dL (Negative) 08/12/18 12:15
[2018-08-14] MEDS: Pravastatin 40 MG TAB PO (19:38)
[2018-08-14] MEDS: Metoprolol 50 MG TAB PO (19:38)
--- NOTE | 2018-08-14 20:21 | NUR.NOTE ---
Nursing Note: Patient is more alert this evening, still struggle with shortness of breath with activity got very sob with minimal steps in his room . He is able to reposition himself once assisted into bed. His PO intake of fluid is improving. he still has a KVO running, but the color ad appearance of his urine has improved since yesterday.
[2018-08-15 00:13] VITALS: BP 122/81; PULSE 74; RESP 24; TEMP 37.1; O2SAT 96
[2018-08-15 04:45] VITALS: BP 101/67; PULSE 66; RESP 20; TEMP 36.4; O2SAT 97
[2018-08-15 07:12] LABS: Abs Immature Grans 0.04 k/cumm (0.0-0.09); HGB 10.8 g/dL (13.5-17.5); Mean Corp. HGB Concentration 32.7 g/dL (32.0-36.0); Mean Corpuscular Hemoglobin 29.6 pg (27.0-33.0); Mean Corpuscular Volume 90.4 fL (80-95); Mean Platelet Volume 9.9 fL (8.0-11.0); Platelet Count 187 x1000/uL (130-400); RBC 3.65 m/cumm (4.50-6.00); RBC Distribution Width 14.4 % (11.8-14.1); White Blood Cell Count 8.22 k/cumm (4.4-10.8)
[2018-08-15 07:20] VITALS: BP 134/79; PULSE 74; RESP 24; TEMP 36.6; O2SAT 95
[2018-08-15 07:26] LABS: Anion Gap 10.6 mmol/L (3-11); BUN 32 mg/dL (7-18); CO2 19.4 mmol/L (21.0-32.0); CREATININE 1.92 mg/dL (0.70-1.30); Calcium 10.4 mg/dL (8.5-10.1); Chloride 106 mmol/L (98-107); Estimated GFR 34.04 (mL/min/1.73m2); Glucose 258 mg/dL (70-100); Potassium 4.5 mmol/L (3.5-5.1); Sodium 136 mmol/L (136-145)
[2018-08-15 07:37] LABS: Prothrombin Time 48.1 sec (9.3-10.8)
[2018-08-15 07:50] VITALS: O2SAT 95
[2018-08-15 07:50] LABS: INR 5.2 (1.0-3.5)
[2018-08-15] MEDS: Multivitamin TAB 1 TAB PO (08:00)
[2018-08-15] MEDS: Omeprazole 20 MG CAPCR PO (08:00)
[2018-08-15] MEDS: Insulin Aspart 300 UNITS/3 ML PEN SC ×3 (08:00→16:57)
[2018-08-15] MEDS: Tamsulosin 0.4 MG CAPCR PO (08:00)
[2018-08-15] MEDS: amLODIPine 5 MG TAB PO (08:00)
[2018-08-15] MEDS: Metoprolol 50 MG TAB PO ×2 (08:00→20:25)
[2018-08-15] MEDS: Potassium Chloride 10 MEQ TABCR PO (08:01)
--- NOTE | 2018-08-15 08:18 | PDOC.CMPRO ---
Care Management Progress Note NOTE FOR 08/14/18 S/O: CM met with Sav multiple times throughout the day. He had new PT/OT consults ordered as well. CM met with , Sav and his at the bedside to discuss current status and treatment. CM encouraged Sav and his to discuss home services and decide if they would accept this service if recommended. Sav has a BIPAP he uses while sleeping through [facility]. A: 77 year old male admitted to [facility] 08/12/18 for UTI, KENNETH, Urinary Retention P: Sav will return home when ready per . He will follow up with Dr. Santos and his PCP as well as his plan of care as prescribed. He is considering home health services upon discharge. He will transport via private vehicle with family.
[2018-08-15 08:25] LABS: Absolute Eosinophil Count 0.33 k/cumm (0.0-0.7); Absolute Lymphocyte Count 1.73 k/cumm (1.2-3.4); Absolute Monocyte Count 0.49 k/cumm (0.11-0.7); Absolute Neutrophil Count 5.67 k/cumm (1.2-6.7); Atypical Lymphocytes % 2
--- NOTE | 2018-08-15 08:25 | CMPROGNOTE_ITS ---
Care Management Progress Note NOTE FOR 08/14/18 S/O: CM met with Sav multiple times throughout the day. He had new PT/OT consults ordered as well. CM met with , Sav and his at the bedside to discuss current status and treatment. CM encouraged Sav and his to discuss home services and decide if they would accept this service if recommended. Sav has a BIPAP he uses while sleeping through [employer]. A: 77 year old male admitted to [facility] 08/12/18 for UTI, KENNETH, Urinary Retention P: Sav will return home when ready per . He will follow up with Dr. Santos and his PCP as well as his plan of care as prescribed. He is considering home health services upon discharge. He will transport via private vehicle with family.
[2018-08-15 08:26] LABS: Diff Comment Manual Differential; RBC Morphology Normal
--- NOTE | 2018-08-15 08:29 | PDOC.CMPRO ---
Care Management Progress Note S/O: Sav was lying in bed, his at his bedside when CM attempted to meet with him. He will remain inpatient at this time, and consider increased home supports. A: 77 year old male admitted to [facility] 08/12/18 for UTI, KENNETH, Urinary Retention P: Sav will return home when ready per MD. He will follow up with Dr. Santos and his PCP as well as his plan of care as prescribed. He is considering home health services upon discharge. He will transport via private vehicle with family.
--- NOTE | 2018-08-15 09:03 | DM INPTCON_ITS ---
DESCRIPTION/ASSESSMENT: Appreciate diabetes consult for Mr. Winkler who is hospitalized with urinary complications. Current A1c 7.6 BMI 40 BLood sugars yesterday 225-256 taking 3 units of insulin for the sensitive correction. At home he takes Metformin however his creatinine is elevated here. Fasting blood sugar today 409mg/dl. Blood sugars increase as the day progresses and last night increased nocturnally. He has been visited in the past as an inpatient without interest in self management discussion. INTERVENTION: Suggest intensifying his insulin correction to resistant level given his body mass and elevated blood sugars. Basal insulin may also be helpful to prevent increased hyperglycemia overnight of Glargine at initial dose of 10 units. PLAN: Will follow blood sugars and visit
[2018-08-15] MEDS: Normal Saline 1,000 ML 75 ML IV (09:34)
--- NOTE | 2018-08-15 10:49 | PT.INTREAT ---
Date of service: 08/15/18 Time of Service: 10:49 PT Notes Inpatient Physical Therapy Treatment Note Date: 08/15/18 SUBJECTIVE: Sav is agreeable to PT. OBJECTIVE: PAIN: Patient c/o pain with transfers. BED MOBILITY/TRANSFERS Supine-sit: Mod A with HOB at 10 degrees Sit-stand: SBA Stand-sit: SBA GAIT Assistive Device: FWW Weight bearing: Full Assist: SBA Distance: 100' x2 Deviation: Cueing for upright posture THEREX: Refused ASSESSMENT: Patient tolerated a progression in his gait distance with FWW support and SBA. He required standing rest break x1 due to fatigue. Patient would benefit from continued gait and transfer training to improve ability to perform with increased independence, as well as participation in a strengthening program. PLAN: Continue with PT's POC TREATMENT CODE/TIME: 25 minutes; TAx2
--- NOTE | 2018-08-15 15:04 | PT.INTREAT ---
Date of service: 08/15/18 Time of Service: 15:04 PT Notes Inpatient Physical Therapy Treatment Note Date: 08/15/18 SUBJECTIVE: Patient is agreeable to PT this afternoon. OBJECTIVE: PAIN: No c/o pain BED MOBILITY/TRANSFERS Sit-stand: S Stand-sit: S GAIT Assistive Device: FWW Weight bearing: Full Assist: SBA Distance: 200' Deviation: Cueing for upright posture, SOB ASSESSMENT: Patient was able to tolerate a slight progression in his gait distance with FWW support, requiring cueing for upright posture. Patient demonstrates some SOB with gait training, although did not require standing rest. PLAN: Continue with PT's POC TREATMENT CODE/TIME: 20 minutes; TA
--- NOTE | 2018-08-15 15:40 | W.PM.PROGNOT ---
Assessment and Plan (1) UTI (urinary tract infection): Current visit: No Status: Acute Urine Culture growing X2 colonies of Klebsiella Pneumonia, both susceptible to Ceftriaxone. Unfortunately it appears that Blood Cultures were not collected in the emergency department. Continue but change antibiotics to Ceftriaxone, now day #3 total of antibiotics. (2) Acute renal insufficiency: Current visit: No Status: Acute In setting of urinary retention, likely obstructive nephropathy. Treat urinary tract infection and continue Griffin catheter. No evidence of hydronephrosis by ultrasound. Monitor kidney function with daily renal panel, avoid nephrotoxins, and renally dose medications when appropriate. Will also attempt to treat patient's prostatic hypertrophy with an alpha geraldine. Current creatinine still elevated but continues to improve this morning. (3) BPH (benign prostatic hyperplasia): Current visit: No Status: Chronic Initiate Flomax. Currently with evidence of urinary retention in setting of acute infection and acute infection ? continue Griffin catheter with plans for voiding trial in the near future. (4) Afib: Current visit: No Status: Chronic Continue beta-geraldine therapy. Holding Coumadin in setting of supratherapeutic INR - monitor INR daily. (5) GERD (gastroesophageal reflux disease): Current visit: No Status: Chronic On daily omeprazole. (6) Essential hypertension, benign: Current visit: No Status: Chronic Continue beta-geraldine and calcium channel geraldine therapy with hold parameters. Currently with ARB and Lasix on hold due to acute kidney injury. (7) Hyperlipidemia: Current visit: No Status: Chronic Continue pravastatin. (8) Diabetes mellitus type 2 in obese: Current visit: No Status: Chronic Hold Metformin, Continue sliding scale coverage, and ADA diet. (9) LUCAS on CPAP: Current visit: No Status: Chronic Home CPAP ordered. (10) CHF (congestive heart failure): Current visit: No Status: Chronic History of nonischemic cardiomyopathy, with last ejection fraction showing 45-50% by echo in 2016. Currently with furosemide and ARB on hold secondary to acute kidney injury, patient is also receiving gentle hydration secondary to kidney injury. Monitor fluid status carefully. While overall volume overloaded chronically, he does not appear to be acutely in heart failure. (11) DVT prophylaxis: Current visit: No Status: Acute Monitor daily INR. Subjective Interval history since last seen: 77-year-old man with past medical history significant for A. fib, nonischemic cardiomyopathy with an EF of 45-50%, LUCAS, and diabetes admitted from [facility] emergency department with evidence of Urinary Retention, UTI, and KENNETH. Mr. Winkler developed urinary retention requiring Griffin catheter placement at [facility], with successful removal following a 2-week course of Griffin placement. The patient's spouse also remarks that there was evidence of numerous kidney stones on imaging, and that he was scheduled to follow-up with urology in the future. She states that his urinary retention was on the basis of an enlarged prostate, but that no specific treatments was prescribed to him. The patient began having symptoms 2 days prior to admission that included shaking chills, urinary frequency, pyuria, and hematuria. He was admitted and started on antibiotic therapy, with a griffin catheter placed and started on concurrent alpha-geraldine. Today he reports continued improvement overall in his symptoms, and his reports improvement overall in his appearance and alertness. Urine Culture with growth of 2 seperate colonies of Klebsiella Pneumonia. The patient was febrile again last night. No other events reported. Exam Narrative Exam Narrative: General: Patient appears comfortable, sitting up in bed, AAOX3, NAD Neck: Supple CV: Regular, mildly tachycardic, S1S2,. Obese in contour. Murmurs, or gallops. Pulmonary: Clear to auscultation bilaterally, no crackles, wheezing, or rhonchi. Appears tachypneic but reports it's his baseline. Abdomen: + Bowel Sounds, soft, nontender, nondistended. Obese in contour. Vascular: 2+ bilateral lower extremity edema with chronic hyperpigmentation : Griffin Catheter in place draining bloody appearing urine Psych: Normal mood and affect. Objective Objective Clinical Data: Abnormal lab results 08/15/18 08/15/18 08/15/18 Range/Units 07:00 07:00 07:00 RBC 3.65 L (4.50-6.00) m/cumm Hgb 10.8 L (13.5-17.5) g/dL Hct 33.0 L (40.0-50.0) % RDW 14.4 H (11.8-14.1) % PT 48.1 H (9.3-10.8) sec INR 5.2 H* D (1.0-3.5) Carbon Dioxide 19.4 L (21.0-32.0) mmol/L BUN 32 H (7-18) mg/dL Creatinine 1.92 H (0.70-1.30) mg/dL Glucose 258 H (70-100) mg/dL Calcium 10.4 H (8.5-10.1) mg/dL Vital Signs Temperature 36.6 C 08/15/18 07:20 Temperature Source Tympanic 08/15/18 07:20 Pulse 74 08/15/18 07:20 Pulse Rhythm Regular 08/15/18 09:28 Respiratory Rate 24 08/15/18 07:20 Respiratory Effort 08/15/18 09:28 Respiratory Depth Shallow 08/15/18 09:28 Respiratory Pattern Normal 08/15/18 09:28 Blood Pressure 134/79 08/15/18 07:20 Pulse Oximetry 95 08/15/18 07:50 Oxygen Delivery Method Room Air 08/15/18 07:50 Oxygen Flow Rate 0 08/15/18 07:50 Fraction of Inspired Oxygen (FIO2) 21 08/13/18 07:05 Pain Level 0 08/14/18 13:00 Comment 08/14/18 15:22 Intake & Output 08/14/18 08/15/18 08/15/18 23:59 11:59 23:59 Intake Total 2185 / 2185 2157.5 / 2157.5 240 / 240 Output Total 1400 / 1400 1625 / 1625 500 / 500 Balance 785 / 785 532.5 / 532.5 -260 / -260 Intake: IV 1825 / 1825 1307.5 / 1307.5 Oral 360 / 360 850 / 850 240 / 240 Output: Urine 1400 / 1400 1625 / 1625 500 / 500 Other: Urine Color Dark Robles Straw Straw Urine Appearance Cloudy Clots Cloudy Comment slight tension on griffin, was irritating patient meatus, repositioned , care given, relif was felt as ther was no longer tension , dark robles with blood clots Laboratory Results WBC 8.22 k/cumm (4.4-10.8) 08/15/18 07:00 RBC 3.65 m/cumm (4.50-6.00) L 08/15/18 07:00 Hgb 10.8 g/dL (13.5-17.5) L 08/15/18 07:00 Hct 33.0 % (40.0-50.0) L 08/15/18 07:00 MCV 90.4 fL (80-95) 08/15/18 07:00 MCH 29.6 pg (27.0-33.0) 08/15/18 07:00 MCHC 32.7 g/dL (32.0-36.0) 08/15/18 07:00 RDW 14.4 % (11.8-14.1) H 08/15/18 07:00 Plt Count 187 x1000/uL (130-400) 08/15/18 07:00 MPV 9.9 fL (8.0-11.0) 08/15/18 07:00 Immature Gran % 0.0 08/15/18 07:00 Neutrophils % 69.0 08/15/18 07:00 Lymphocytes % 19.0 08/15/18 07:00 Monocytes % 6.0 08/15/18 07:00 Eosinophils % 4.0 08/15/18 07:00 Basophils % 0.0 08/15/18 07:00 Absolute Neutrophils 5.67 k/cumm (1.2-6.7) 08/15/18 07:00 Absolute Lymphocytes 1.73 k/cumm (1.2-3.4) 08/15/18 07:00 Absolute Monocytes 0.49 k/cumm (0.11-0.7) 08/15/18 07:00 Absolute Eosinophils 0.33 k/cumm (0.0-0.7) 08/15/18 07:00 Absolute Basophils 0.00 k/cumm (0.0-0.2) 08/15/18 07:00 Differential Comment Manual differential 08/15/18 07:00 Atypical Lymphocytes 2 08/15/18 07:00 RBC Morphology Normal 08/15/18 07:00 PT 48.1 sec (9.3-10.8) H 08/15/18 07:00 INR 5.2 (1.0-3.5) H* D 08/15/18 07:00 APTT 60.2 sec (21.0-31.4) H 08/12/18 15:10 Sodium 136 mmol/L (136-145) 08/15/18 07:00 Potassium 4.5 mmol/L (3.5-5.1) 08/15/18 07:00 Chloride 106 mmol/L (98-107) 08/15/18 07:00 Carbon Dioxide 19.4 mmol/L (21.0-32.0) L 08/15/18 07:00 Anion Gap 10.6 mmol/L (3-11) 08/15/18 07:00 BUN 32 mg/dL (7-18) H 08/15/18 07:00 Creatinine 1.92 mg/dL (0.70-1.30) H 08/15/18 07:00 Estimated GFR/1.73 m2 34.04 (mL/min/1.73m2) 08/15/18 07:00 Glucose 258 mg/dL (70-100) H 08/15/18 07:00 Lactate 1.4 mmol/L (0.6-1.4) 08/13/18 09:03 Calcium 10.4 mg/dL (8.5-10.1) H 08/15/18 07:00 Total Bilirubin 1.9 mg/dL (0.2-1.0) H 08/12/18 12:20 AST 45 U/L (15-37) H 08/12/18 12:20 ALT 45 U/L (12-78) 08/12/18 12:20 Alkaline Phosphatase 119 U/L (46-116) H 08/12/18 12:20 Total Protein 7.0 g/dL (6.4-8.2) 08/12/18 12:20 Albumin 2.5 g/dL (3.4-5.0) L 08/12/18 12:20 Urine Color Brown (Yellow) 08/12/18 12:15 Urine Clarity Cloudy 08/12/18 12:15 Urine pH 7.0 (5-8) 08/12/18 12:15 Ur Specific [place] 1.020 (1.005-1.025) 08/12/18 12:15 Urine Protein >=300 mg/dL (Negative) H 08/12/18 12:15 Urine Ketones Trace mg/dL (Negative) H 08/12/18 12:15 Urine Blood Large (Negative) H 08/12/18 12:15 Urine Nitrite Negative (Negative) 08/12/18 12:15 Urine Bilirubin Negative (Negative) 08/12/18 12:15 Urine Urobilinogen 1.0 EU/dL (Up TO 0.2) H 08/12/18 12:15 Ur Leukocyte Esterase Moderate (Negative) H 08/12/18 12:15 Urine RBC >50 (0-2) H 08/12/18 12:15 Urine WBC 20-50 HPF (0-5) 08/12/18 12:15 Ur Epithelial Cells Rare HPF (Negative) 08/12/18 12:15 Urine Crystals Negative HPF (Negative) 08/12/18 12:15 Urine Bacteria Many HPF (Negative) 08/12/18 12:15 Urine Casts Negative LPF (Negative) 08/12/18 12:15 Urine Mucus Trace (Negative) 08/12/18 12:15 Ur Culture Indicated? Yes 08/12/18 12:15 Urine Glucose Negative mg/dL (Negative) 08/12/18 12:15
[2018-08-15 16:11] VITALS: BP 106/68; PULSE 79; RESP 20; TEMP 36.7; O2SAT 96
[2018-08-15] MEDS: Pravastatin 40 MG TAB PO (20:25)
[2018-08-16 00:49] VITALS: BP 102/77; PULSE 78; RESP 16; TEMP 36.5; O2SAT 96
[2018-08-16 07:45] VITALS: BP 128/84; PULSE 73; RESP 24; TEMP 36.8; O2SAT 95
[2018-08-16] MEDS: Metoprolol 50 MG TAB PO ×2 (08:04→20:24)
[2018-08-16] MEDS: Potassium Chloride 10 MEQ TABCR PO (08:04)
[2018-08-16] MEDS: Omeprazole 20 MG CAPCR PO (08:04)
[2018-08-16] MEDS: Multivitamin TAB 1 TAB PO (08:04)
[2018-08-16] MEDS: Normal Saline Flush 10 ML SYR (08:04)
[2018-08-16] MEDS: Tamsulosin 0.4 MG CAPCR PO (08:04)
[2018-08-16] MEDS: amLODIPine 5 MG TAB PO (08:04)
[2018-08-16] MEDS: Insulin Aspart 300 UNITS/3 ML PEN SC ×3 (08:07→17:02)
--- NOTE | 2018-08-16 08:39 | PDOC.CMPRO ---
- If Service Date Differs Date of service: 08/16/18 Time of Service: 08:39 Care Management Progress Note S/O: Sav was sitting at the edge of his bed eating breakfast when CM visited this morning. He is engaged in conversation and makes good eye contact. Sav denies pain at this time and reports that he would like to meet with the MD prior to additional lab draws. Sav denies pain at this time and states that he is ready for discharge and that there has been discussion of HH services (which he has had in the past). He will remain inpatient at this time. A: 77 year old male admitted to [facility] 08/12/18 for UTI, KENNETH, Urinary Retention P: Sav will return home when ready per MD. He will follow up with Dr. Santos and his PCP as well as his plan of care as prescribed. He is considering home health services upon discharge. He will transport via private vehicle with his , Lashawn. CM will continue to offer support to patient, family and care team regarding discharge planning and disposition.
--- NOTE | 2018-08-16 08:42 | CMPROGNOTE_ITS ---
- If Service Date Differs Date of service: 08/16/18 Time of Service: 08:39 Care Management Progress Note S/O: Sav was sitting at the edge of his bed eating breakfast when CM visited this morning. He is engaged in conversation and makes good eye contact. Sav denies pain at this time and reports that he would like to meet with the MD prior to additional lab draws. Sav denies pain at this time and states that he is ready for discharge and that there has been discussion of HH services (which he has had in the past). He will remain inpatient at this time. A: 77 year old male admitted to [facility] 08/12/18 for UTI, KENNETH, Urinary Retention P: Sav will return home when ready per MD. He will follow up with Dr. Santos and his PCP as well as his plan of care as prescribed. He is considering home health services upon discharge. He will transport via private vehicle with his , Lashawn. CM will continue to offer support to patient, family and care team regarding discharge planning and disposition.
[2018-08-16 09:25] LABS: Abs Immature Grans 0.05 k/cumm (0.0-0.09); Absolute Basophil Count 0.05 k/cumm (0.0-0.2); Absolute Eosinophil Count 0.26 k/cumm (0.0-0.7); Absolute Lymphocyte Count 1.27 k/cumm (1.2-3.4); Absolute Monocyte Count 0.62 k/cumm (0.11-0.7); Absolute Neutrophil Count 6.51 k/cumm (1.2-6.7); Basophils % 0.6; HCT 35.3 % (40.0-50.0); HGB 11.2 g/dL (13.5-17.5); Immature Grans % 0.6; Lymphocytes % 14.5; Mean Corp. HGB Concentration 31.7 g/dL (32.0-36.0); Mean Corpuscular Hemoglobin 28.6 pg (27.0-33.0); Mean Corpuscular Volume 90.3 fL (80-95); Mean Platelet Volume 9.9 fL (8.0-11.0); Monocytes % 7.1; Neutrophils % 74.2; Platelet Count 205 x1000/uL (130-400); RBC 3.91 m/cumm (4.50-6.00); RBC Distribution Width 14.4 % (11.8-14.1); White Blood Cell Count 8.76 k/cumm (4.4-10.8)
[2018-08-16 09:38] LABS: Anion Gap 9.4 mmol/L (3-11); BUN 28 mg/dL (7-18); CO2 20.6 mmol/L (21.0-32.0); CREATININE 1.77 mg/dL (0.70-1.30); Calcium 10.2 mg/dL (8.5-10.1); Chloride 108 mmol/L (98-107); Estimated GFR 37.39 (mL/min/1.73m2); Glucose 224 mg/dL (70-100); Potassium 4.6 mmol/L (3.5-5.1); Sodium 138 mmol/L (136-145)
[2018-08-16 09:49] LABS: Diff Comment Agrees w/ Instrument; Prothrombin Time 42.9 sec (9.3-10.8)
[2018-08-16 09:57] LABS: INR 4.6 (1.0-3.5)
--- NOTE | 2018-08-16 10:52 | PT.INNT ---
Date of service: 08/16/18 Time of Service: 10:52 PT Notes 08/16/2018 Patient refuses PT services x2 this a.m. due to fatigue. Mari Callahan, DIRECTOR [employer]OD AND [employer]
[2018-08-16 15:20] VITALS: BP 115/73; PULSE 67; RESP 22; TEMP 36.7; O2SAT 97
[2018-08-16] MEDS: Normal Saline Flush 10 ML SYR 20 ML (16:56)
--- NOTE | 2018-08-16 19:09 | PGE_ITS ---
Assessment and Plan (1) UTI (urinary tract infection): Current visit: No Status: Acute The urinary tract infection appears to be adequately treated. No fevers, normal white count. He is on IV ceftriaxone. Will transition to oral medication tomorrow (2) Acute renal insufficiency: Current visit: No Status: Acute Creatinine at 1.77. He is adequately hydrated. This may be his new baseline. The chronic urinary retention is likely leading to some obstructive uropathy (3) LUCAS on CPAP: Current visit: No Status: Chronic Continue nocturnal CPAP. Likely related to body habitus. (4) Afib: Current visit: No Status: Chronic (5) BPH (benign prostatic hyperplasia): Current visit: No Status: Chronic Continues on warfarin anticoagulation. INR 4.6 today, holding warfarin until INR comes back into therapeutic range. Subjective Interval history since last seen: Patient is much clearer today. His says his sensorium is back to baseline. The patient initially voiced some desire to go home today. He had his Griffin catheter discontinued but was only able to void in very small amounts. His sensorium seemed to get cloudy as the day went on. Eventually he agreed to stay at least 1 more night. He is not having any fever chills or rigors. No evidence of any bleeding Exam Narrative Exam Narrative: On exam his lungs are completely clear and dry bilaterally heart sounds are regular no apparent murmur abdomen is massively obese but overall soft and nontender. He did not appear to have a full bladder. Lower extremities show 3+ edema bilaterally which is chronic. No open sores or weeping Objective Objective Clinical Data: Abnormal lab results 08/16/18 08/16/18 08/16/18 Range/Units 08:55 08:55 08:55 RBC 3.91 L (4.50-6.00) m/cumm Hgb 11.2 L (13.5-17.5) g/dL Hct 35.3 L (40.0-50.0) % MCHC 31.7 L (32.0-36.0) g/dL RDW 14.4 H (11.8-14.1) % PT 42.9 H (9.3-10.8) sec INR 4.6 H* D (1.0-3.5) Chloride 108 H (98-107) mmol/L Carbon Dioxide 20.6 L (21.0-32.0) mmol/L BUN 28 H (7-18) mg/dL Creatinine 1.77 H (0.70-1.30) mg/dL Glucose 224 H (70-100) mg/dL Calcium 10.2 H (8.5-10.1) mg/dL Vital Signs Temperature 36.7 C 08/16/18 15:20 Temperature Source Tympanic 08/16/18 15:20 Pulse 67 08/16/18 15:20 Pulse Rhythm Regular 08/16/18 08:05 Respiratory Rate 22 08/16/18 15:20 Respiratory Effort 08/16/18 08:05 Respiratory Depth Shallow 08/16/18 08:05 Respiratory Pattern Normal 08/16/18 08:05 Blood Pressure 115/73 08/16/18 15:20 Pulse Oximetry 97 08/16/18 15:20 Oxygen Delivery Method Room Air 08/16/18 15:20 Oxygen Flow Rate 0 08/16/18 15:20 Fraction of Inspired Oxygen (FIO2) 21 08/13/18 07:05 Pain Level 0 08/16/18 15:20 Comment 08/16/18 15:20 Intake & Output 08/15/18 08/16/18 08/16/18 23:59 11:59 23:59 Intake Total 890 / 890 730 / 730 70 / 70 Output Total 1675 / 1675 1949 575 / 575 Balance -785 / -785 -1220 / -1220 -505 / -505 Intake: IV 50 / 50 10 / 10 70 / 70 Oral 840 / 840 720 / 720 Output: Urine 1675 / 1675 1949 575 / 575 Other: Urine Color Dark Hui Light Hui Light Hui Urine Appearance Clear Sediment Clots Comment Pt voided small amount in toilet following griffin removal, aware. Voiding Methods Toilet Laboratory Results WBC 8.76 k/cumm (4.4-10.8) 08/16/18 08:55 RBC 3.91 m/cumm (4.50-6.00) L 08/16/18 08:55 Hgb 11.2 g/dL (13.5-17.5) L 08/16/18 08:55 Hct 35.3 % (40.0-50.0) L 08/16/18 08:55 MCV 90.3 fL (80-95) 08/16/18 08:55 MCH 28.6 pg (27.0-33.0) 08/16/18 08:55 MCHC 31.7 g/dL (32.0-36.0) L 08/16/18 08:55 RDW 14.4 % (11.8-14.1) H 08/16/18 08:55 Plt Count 205 x1000/uL (130-400) 08/16/18 08:55 MPV 9.9 fL (8.0-11.0) 08/16/18 08:55 Immature Gran % 0.6 08/16/18 08:55 Neutrophils % 74.2 08/16/18 08:55 Lymphocytes % 14.5 08/16/18 08:55 Monocytes % 7.1 08/16/18 08:55 Eosinophils % 3.0 08/16/18 08:55 Basophils % 0.6 08/16/18 08:55 Absolute Neutrophils 6.51 k/cumm (1.2-6.7) 08/16/18 08:55 Absolute Lymphocytes 1.27 k/cumm (1.2-3.4) 08/16/18 08:55 Absolute Monocytes 0.62 k/cumm (0.11-0.7) 08/16/18 08:55 Absolute Eosinophils 0.26 k/cumm (0.0-0.7) 08/16/18 08:55 Absolute Basophils 0.05 k/cumm (0.0-0.2) 08/16/18 08:55 Differential Comment Agrees w/ instrument 08/16/18 08:55 Atypical Lymphocytes 2 08/15/18 07:00 RBC Morphology Normal 08/15/18 07:00 PT 42.9 sec (9.3-10.8) H 08/16/18 08:55 INR 4.6 (1.0-3.5) H* D 08/16/18 08:55 APTT 60.2 sec (21.0-31.4) H 08/12/18 15:10 Sodium 138 mmol/L (136-145) 08/16/18 08:55 Potassium 4.6 mmol/L (3.5-5.1) 08/16/18 08:55 Chloride 108 mmol/L (98-107) H 08/16/18 08:55 Carbon Dioxide 20.6 mmol/L (21.0-32.0) L 08/16/18 08:55 Anion Gap 9.4 mmol/L (3-11) 08/16/18 08:55 BUN 28 mg/dL (7-18) H 08/16/18 08:55 Creatinine 1.77 mg/dL (0.70-1.30) H 08/16/18 08:55 Estimated GFR/1.73 m2 37.39 (mL/min/1.73m2) 08/16/18 08:55 Glucose 224 mg/dL (70-100) H 08/16/18 08:55 Lactate 1.4 mmol/L (0.6-1.4) 08/13/18 09:03 Calcium 10.2 mg/dL (8.5-10.1) H 08/16/18 08:55 Total Bilirubin 1.9 mg/dL (0.2-1.0) H 08/12/18 12:20 AST 45 U/L (15-37) H 08/12/18 12:20 ALT 45 U/L (12-78) 08/12/18 12:20 Alkaline Phosphatase 119 U/L (46-116) H 08/12/18 12:20 Total Protein 7.0 g/dL (6.4-8.2) 08/12/18 12:20 Albumin 2.5 g/dL (3.4-5.0) L 08/12/18 12:20 Urine Color Brown (Yellow) 08/12/18 12:15 Urine Clarity Cloudy 08/12/18 12:15 Urine pH 7.0 (5-8) 08/12/18 12:15 Ur Specific [place] 1.020 (1.005-1.025) 08/12/18 12:15 Urine Protein >=300 mg/dL (Negative) H 08/12/18 12:15 Urine Ketones Trace mg/dL (Negative) H 08/12/18 12:15 Urine Blood Large (Negative) H 08/12/18 12:15 Urine Nitrite Negative (Negative) 08/12/18 12:15 Urine Bilirubin Negative (Negative) 08/12/18 12:15 Urine Urobilinogen 1.0 EU/dL (Up TO 0.2) H 08/12/18 12:15 Ur Leukocyte Esterase Moderate (Negative) H 08/12/18 12:15 Urine RBC >50 (0-2) H 08/12/18 12:15 Urine WBC 20-50 HPF (0-5) 08/12/18 12:15 Ur Epithelial Cells Rare HPF (Negative) 08/12/18 12:15 Urine Crystals Negative HPF (Negative) 08/12/18 12:15 Urine Bacteria Many HPF (Negative) 08/12/18 12:15 Urine Casts Negative LPF (Negative) 08/12/18 12:15 Urine Mucus Trace (Negative) 08/12/18 12:15 Ur Culture Indicated? Yes 08/12/18 12:15 Urine Glucose Negative mg/dL (Negative) 08/12/18 12:15
[2018-08-16] MEDS: Pravastatin 40 MG TAB PO (20:24)
[2018-08-16 23:54] VITALS: BP 127/86; PULSE 90; RESP 16; TEMP 36.3; O2SAT 97
[2018-08-17 06:36] LABS: Abs Immature Grans 0.04 k/cumm (0.0-0.09); Absolute Basophil Count 0.03 k/cumm (0.0-0.2); Absolute Eosinophil Count 0.28 k/cumm (0.0-0.7); Absolute Lymphocyte Count 1.53 k/cumm (1.2-3.4); Absolute Monocyte Count 0.71 k/cumm (0.11-0.7); Basophils % 0.3; Eosinophils % 3.1; HCT 35.2 % (40.0-50.0); Immature Grans % 0.4; Lymphocytes % 16.8; Mean Corp. HGB Concentration 31.3 g/dL (32.0-36.0); Mean Corpuscular Hemoglobin 28.2 pg (27.0-33.0); Mean Corpuscular Volume 90.3 fL (80-95); Mean Platelet Volume 9.4 fL (8.0-11.0); Monocytes % 7.8; Neutrophils % 71.6; Platelet Count 241 x1000/uL (130-400); RBC Distribution Width 14.3 % (11.8-14.1); White Blood Cell Count 9.09 k/cumm (4.4-10.8)
[2018-08-17 06:45] LABS: Anion Gap 9.9 mmol/L (3-11); BUN 25 mg/dL (7-18); CO2 22.1 mmol/L (21.0-32.0); CREATININE 1.64 mg/dL (0.70-1.30); Chloride 107 mmol/L (98-107); Estimated GFR 40.83 (mL/min/1.73m2); Glucose 199 mg/dL (70-100); Potassium 4.9 mmol/L (3.5-5.1); Prothrombin Time 37.1 sec (9.3-10.8); Sodium 139 mmol/L (136-145)
[2018-08-17] MEDS: Omeprazole 20 MG CAPCR PO (08:03)
[2018-08-17] MEDS: Potassium Chloride 10 MEQ TABCR PO (08:03)
[2018-08-17] MEDS: Tamsulosin 0.4 MG CAPCR PO (08:03)
[2018-08-17] MEDS: Metoprolol 50 MG TAB PO (08:03)
[2018-08-17 08:05] VITALS: BP 125/82; PULSE 83; RESP 24; TEMP 36; O2SAT 95
[2018-08-17] MEDS: amLODIPine 5 MG TAB PO (08:05)
[2018-08-17] MEDS: Insulin Aspart 300 UNITS/3 ML PEN SC ×2 (08:05→11:54)
[2018-08-17] MEDS: Multivitamin TAB 1 TAB PO (08:05)
--- NOTE | 2018-08-17 11:15 | PT.INNT ---
Date of service: 08/17/18 Time of Service: 11:16 PT Notes 08/17/2018 Patient refuses PT treatment.
--- NOTE | 2018-08-17 13:06 | PDOC.CMDIS ---
- If Service Date Differs Date of service: 08/17/18 Time of Service: 13:06 LACE Index Scoring Tool - Questions: Length of Stay (in days): 4 - 6 Acuity (Admit via E.D.?): Yes Comorbidities: Diabetes w/o Complication, Congestive Heart Failure E.D. Visits: 4 - Answers: Total Score: 14 Risk of Readmission: High Risk Care Management Discharge Reason for Hospitalization: UTI, KENNETH, Urinary Retention Discharge Plan: Sav will discharge home when medically ready per MD. Anticipate patient will discharge with no services and follow up with his PCP. Sav will transport via private vehicle with his , Lashawn. Patient/Family Education Needs: Discharge education, any limitations and follow up plan of care. Ask Me Three discussion.
--- NOTE | 2018-08-17 18:33 | W.PM.DS.N ---
Date of service: 08/17/18 Time of Service: 18:33 DS: Diagnosis Discharge Diagnosis (1) UTI (urinary tract infection): Status: Acute Asessment and Plan: Patient was admitted for complicated urinary tract infection. Urine culture grew out 2 species of Klebsiella that were nearly pansensitive. He was treated with IV Zosyn and changed to oral Keflex at the time of discharge. He did not have blood cultures at the time of admission. (2) Acute renal insufficiency: Status: Acute Asessment and Plan: Patient has ongoing problems with chronic renal insufficiency. He had transient worsening of his creatinine but creatinine improved to 1.64 at the time of discharge. (3) LUCAS on CPAP: Status: Chronic Asessment and Plan: Patient's obstructive sleep apnea was treated with his home CPAP device. (4) Afib: Status: Chronic Asessment and Plan: Patient's atrial fibrillation was under good control during his stay. He was over anticoagulated and his warfarin was held through his admission. The plan is for him to hold his warfarin and get a PT/INR on Saturday. (5) BPH (benign prostatic hyperplasia): Status: Chronic Asessment and Plan: Patient had trouble with urinary retention and had a Griffin catheter during his stay. He was started on an alpha geraldine and a voiding trial was attempted on 08/16/2018. At the time of discharge he is able to void on his own in fact had 2500 cc of urine out. We will continue on alpha-geraldine and monitor for signs or symptoms of urinary retention. (6) Hypercalcemia: Status: Acute Asessment and Plan: Patient's calcium was elevated at 11.0 (corrects to 12.2). Patient notes that he is scheduled for evaluation to have his parathyroid glands removed because of ongoing hyperparathyroidism. He has a follow-up appointment on 08/20/2018. Discharge Plan Disposition Patient Disposition: HOME Condition: Improving Discharge Details Reason For Visit: UTI,KENNETH,URINARY RETENTION Admit Date/Time: 08/12/18 14:50 Admit Provider: Tonny Carmona Attending Provider: Tonny Carmona Primary Care Provider: Ricardo Luis Hospital Course Hospital Course: 77-year-old man admitted with a complicated UTI. His urine ended up growing out 2 forms of Klebsiella both nearly pansensitive. He was treated with IV ceftriaxone with resultant improvement in his symptoms. He has urinary retention and is being worked up by Dr. Hobbs from urology. He had a Griffin catheter for the first few days and successfully passed a voiding trial, he is voiding on his own in adequate amounts. He has hyperparathyroidism and ran an elevated calcium level of 11.0, corrects to 12.2. He has follow-up with surgery for what sounds like a parathyroidectomy on 08/20/2018 at [facility]. Home Meds and New Rx's Prescriptions: New cephalexin [Keflex] 500 mg capsule 500 mg PO TID Qty: 20 RF: 0 Continue multivitamin [Daily Multiple] 1 EACH tablet 1 ea PO DAILY RF: 0 blood sugar diagnostic [OneTouch Ultra Test] 1 EACH strip 1 ea Miscellaneous DAILY Qty: 90 RF: 3 lancets [OneTouch UltraSoft Lancets] 1 EACH misc 1 ea Miscellaneous DAILY Qty: 90 RF: 3 blood-glucose meter [OneTouch Ultra2] 1 EACH kit 1 ea Miscellaneous DAILY Qty: 1 RF: 0 metformin 1,000 MG tablet 500 mg PO BID Qty: 180 RF: 3 amlodipine 5 MG tablet 5 mg PO DAILY Qty: 90 RF: 4 warfarin [Jantoven] 2.5 MG tablet 1 tab PO DIRECTED Qty: 180 RF: 6 omeprazole 20 MG capsule,delayed release(DR/EC) 20 mg PO DAILY RF: 0 furosemide 20 MG tablet 20 mg PO DAILY Qty: 90 RF: 3 losartan 50 MG tablet 50 mg PO DAILY Qty: 90 RF: 3 pravastatin 40 MG tablet 40 mg PO QPM Qty: 90 RF: 0 potassium chloride [Klor-Con M10] 10 MEQ tablet,ER particles/crystals 10 meq PO DAILY Qty: 90 RF: 1 metoprolol tartrate 100 mg Tablet 50 mg PO BID RF: 0 Discharge Instructions Instructions: Urinary Retention in Men (GEN), Urinary Tract Infection in Men (DC) Stand Alone Forms: Nursing Discharge Form Referrals: Ricardo Luis DO [Primary Care Provider] - (Please call Dr Luis's office and make a follow up appointment at [phone]) Activity:: Activity as Tolerated Equipment/Supplies:: No Equipment Needed Diet:: Carb Counting Discharge Orders Discharge Orders: Discharge Order (Routine); Ordered 08/17/18 Ordered By: Rui Gayle Other Ambulatory Orders: Prothrombin Time (Routine) Timeframe: [id number] Location: Determined by Patient Ordered By: Rui Gayle Discharge Data Discharge Date/Time-TO BE ENTERED AT DEPARTURE: 08/17/18 14:00 Exam Narrative Exam Narrative: His exam on the day of discharge revealed clear lungs bilaterally his heart showed a regular rate and rhythm his abdomen though quite massively obese is soft and nontender there was no suprapubic tenderness. His lower extremities show chronic edema and venous stasis changes but there were no active lesions. DS: Data Vitals/I&O Vitals and I&O: Vital Signs Temperature 36.0 C L 08/17/18 08:05 Temperature Source Tympanic 08/17/18 08:05 Pulse 83 08/17/18 08:05 Pulse Rhythm Regular 08/17/18 08:05 Respiratory Rate 24 08/17/18 08:05 Respiratory Effort Non-Labored 08/17/18 08:05 Respiratory Depth Shallow 08/17/18 08:05 Respiratory Pattern Normal 08/17/18 08:05 Blood Pressure 125/82 08/17/18 08:05 Pulse Oximetry 95 08/17/18 08:05 Oxygen Delivery Method Room Air 08/17/18 08:05 Oxygen Flow Rate 0 08/17/18 08:05 Fraction of Inspired Oxygen (FIO2) 21 08/13/18 07:05 Pain Level 0 08/17/18 08:05 Comment 08/16/18 15:20 Intake & Output 08/16/18 08/17/18 08/17/18 23:59 11:59 23:59 Intake Total 70 / 70 240 / 240 240 / 240 Output Total 775 / 775 Balance -705 / -705 240 / 240 240 / 240 Intake: IV 70 / 70 Oral 240 / 240 240 / 240 Output: Urine 775 / 775 Other: Urine Color Yellow Urine Appearance Clear Urine Odor Normal Comment Pt voided small amount in toilet following griffin removal, aware. Pt void in toilet, RESEARCH PHYSICIST to obtain PVR bladder scan. Voiding Methods Urinal Toilet Toilet Diaper Incontinent Pending studies at discharge: ARTHROCENTESIS (06/28/97) Bed Mobility Treatment (11/30/17) Bed Mobility Treatment using Assistive, Adaptive, Supportive or Protective Equipment (12/16/17) Drainage of Left Pleural Cavity with Drainage Device, Open Approach (11/30/17) Drainage of Left Pleural Cavity, Percutaneous Approach, Diagnostic (12/16/17) ENDO RECTUM POLYPECTOMY (02/21/06) ENDOSC POLYPECTOMY OF LG INTEST (02/21/06) Gait Training/Functional Ambulation Treatment (01/16/17) Gait Training/Functional Ambulation Treatment using Assistive, Adaptive, Supportive or Protective Equipment (12/16/17) Introduction of Other Therapeutic Substance into Respiratory Tract, Via Natural or Artificial Opening (12/16/17) Monitoring of Cardiac Electrical Activity, External Approach (12/16/17) Range of Motion and Joint Mobility Treatment of Musculoskeletal System - Whole Body (11/30/17) Therapeutic Exercise Treatment of Musculoskeletal System - Whole Body (11/30/17) Transfer Training Treatment (11/30/17) Transfer Training Treatment using Assistive, Adaptive, Supportive or Protective Equipment (12/16/17) WBC 9.09 k/cumm (4.4-10.8) 08/17/18 06:13 RBC 3.90 m/cumm (4.50-6.00) L 08/17/18 06:13 Hgb 11.0 g/dL (13.5-17.5) L 08/17/18 06:13 Hct 35.2 % (40.0-50.0) L 08/17/18 06:13 MCV 90.3 fL (80-95) 08/17/18 06:13 MCH 28.2 pg (27.0-33.0) 08/17/18 06:13 MCHC 31.3 g/dL (32.0-36.0) L 08/17/18 06:13 RDW 14.3 % (11.8-14.1) H 08/17/18 06:13 Plt Count 241 x1000/uL (130-400) 08/17/18 06:13 MPV 9.4 fL (8.0-11.0) 08/17/18 06:13 Immature Gran % 0.4 08/17/18 06:13 Neutrophils % 71.6 08/17/18 06:13 Lymphocytes % 16.8 08/17/18 06:13 Monocytes % 7.8 08/17/18 06:13 Eosinophils % 3.1 08/17/18 06:13 Basophils % 0.3 08/17/18 06:13 Absolute Neutrophils 6.50 k/cumm (1.2-6.7) 08/17/18 06:13 Absolute Lymphocytes 1.53 k/cumm (1.2-3.4) 08/17/18 06:13 Absolute Monocytes 0.71 k/cumm (0.11-0.7) H 08/17/18 06:13 Absolute Eosinophils 0.28 k/cumm (0.0-0.7) 08/17/18 06:13 Absolute Basophils 0.03 k/cumm (0.0-0.2) 08/17/18 06:13 Differential Comment Agrees w/ instrument 08/16/18 08:55 Atypical Lymphocytes 2 08/15/18 07:00 RBC Morphology Normal 08/15/18 07:00 PT 37.1 sec (9.3-10.8) H 08/17/18 06:13 INR 4.0 (1.0-3.5) H D 08/17/18 06:13 APTT 60.2 sec (21.0-31.4) H 08/12/18 15:10 Sodium 139 mmol/L (136-145) 08/17/18 06:13 Potassium 4.9 mmol/L (3.5-5.1) 08/17/18 06:13 Chloride 107 mmol/L (98-107) 08/17/18 06:13 Carbon Dioxide 22.1 mmol/L (21.0-32.0) 08/17/18 06:13 Anion Gap 9.9 mmol/L (3-11) 08/17/18 06:13 BUN 25 mg/dL (7-18) H 08/17/18 06:13 Creatinine 1.64 mg/dL (0.70-1.30) H 08/17/18 06:13 Estimated GFR/1.73 m2 40.83 (mL/min/1.73m2) 08/17/18 06:13 Glucose 199 mg/dL (70-100) H 08/17/18 06:13 Lactate 1.4 mmol/L (0.6-1.4) 08/13/18 09:03 Calcium 11.0 mg/dL (8.5-10.1) H 08/17/18 06:13 Total Bilirubin 1.9 mg/dL (0.2-1.0) H 08/12/18 12:20 AST 45 U/L (15-37) H 08/12/18 12:20 ALT 45 U/L (12-78) 08/12/18 12:20 Alkaline Phosphatase 119 U/L (46-116) H 08/12/18 12:20 Total Protein 7.0 g/dL (6.4-8.2) 08/12/18 12:20 Albumin 2.5 g/dL (3.4-5.0) L 08/12/18 12:20 Urine Color Brown (Yellow) 08/12/18 12:15 Urine Clarity Cloudy 08/12/18 12:15 Urine pH 7.0 (5-8) 08/12/18 12:15 Ur Specific [place] 1.020 (1.005-1.025) 08/12/18 12:15 Urine Protein >=300 mg/dL (Negative) H 08/12/18 12:15 Urine Ketones Trace mg/dL (Negative) H 08/12/18 12:15 Urine Blood Large (Negative) H 08/12/18 12:15 Urine Nitrite Negative (Negative) 08/12/18 12:15 Urine Bilirubin Negative (Negative) 08/12/18 12:15 Urine Urobilinogen 1.0 EU/dL (Up TO 0.2) H 08/12/18 12:15 Ur Leukocyte Esterase Moderate (Negative) H 08/12/18 12:15 Urine RBC >50 (0-2) H 08/12/18 12:15 Urine WBC 20-50 HPF (0-5) 08/12/18 12:15 Ur Epithelial Cells Rare HPF (Negative) 08/12/18 12:15 Urine Crystals Negative HPF (Negative) 08/12/18 12:15 Urine Bacteria Many HPF (Negative) 08/12/18 12:15 Urine Casts Negative LPF (Negative) 08/12/18 12:15 Urine Mucus Trace (Negative) 08/12/18 12:15 Ur Culture Indicated? Yes 08/12/18 12:15 Urine Glucose Negative mg/dL (Negative) 08/12/18 12:15 Labs on day of discharge: Labs from last 24 hours 08/17/18 08/17/18 08/17/18 06:13 06:13 06:13 WBC 9.09 RBC 3.90 L Hgb 11.0 L Hct 35.2 L MCV 90.3 MCH 28.2 MCHC 31.3 L RDW 14.3 H Plt Count 241 MPV 9.4 Immature Gran % 0.4 Neutrophils % 71.6 Lymphocytes % 16.8 Monocytes % 7.8 Eosinophils % 3.1 Basophils % 0.3 Absolute Neutrophils 6.50 Absolute Lymphocytes 1.53 Absolute Monocytes 0.71 H Absolute Eosinophils 0.28 Absolute Basophils 0.03 PT 37.1 H INR 4.0 H D Sodium 139 Potassium 4.9 Chloride 107 Carbon Dioxide 22.1 Anion Gap 9.9 BUN 25 H Creatinine 1.64 H Estimated GFR/1.73 m2 40.83 Glucose 199 H Calcium 11.0 H
--- NOTE | 2018-09-15 15:03 | DM INPTCON_ITS ---
DESCRIPTION/ASSESSMENT: Appreciate diabetes consult for Mr. Winkler who is hospitalized for with UTI. BMI 42 A1c 7.6 Met with Mr. Winkler and his to discuss self management ideas to help Mr. Winkler manage blood sugars at home. He will be going off Metformin due to kidney impairment and initiating glipizide. Blood sugars here in 2-300s taking mealtime correction at sensitive level. INTERVENTION: Given his A1c, reinforced importance of lifestyle intervention to prevent progression of diabetes. Reviewed diabetes food guide and he was part of the discussion focused on carbohydrate sources. Discussed limiting breads and starches and increasing vegetables. Discussed physical activity. Discussed stress. He states he just blows up and then it is over. He jokes with his about this. PLAN: They have my contact information if that should have lifestyle or other diabetes questions.
== END 2018-08-17 14:00 | disposition home or self-care (01) | DRG 690 ==
LOC: ER 15:36 → MS 08-13 12:52
PROVIDERS: Admitting Provider Internal Medicine; Emergency Provider Nurse Practitioner Family; PCP Emergency Medicine; Visit Provider Family Medicine
DX: N39.0 Urinary tract infection, site not specified (principal); N17.9 Acute kidney failure, unspecified; B96.1 Klebsiella pneumoniae [K. pneumoniae] as the cause of diseases classified elsewhere; Z16.11 Resistance to penicillins; E11.22 Type 2 diabetes mellitus with diabetic chronic kidney disease; N18.9 Chronic kidney disease, unspecified; G47.33 Obstructive sleep apnea (adult) (pediatric); I48.91 Unspecified atrial fibrillation; R79.1 Abnormal coagulation profile; T45.515A Adverse effect of anticoagulants, initial encounter; Z79.01 Long term (current) use of anticoagulants; N40.1 Benign prostatic hyperplasia with lower urinary tract symptoms; N13.8 Other obstructive and reflux uropathy; E21.3 Hyperparathyroidism, unspecified; E83.52 Hypercalcemia; E66.9 Obesity, unspecified; I87.8 Other specified disorders of veins; K21.9 Gastro-esophageal reflux disease without esophagitis; I12.9 Hypertensive chronic kidney disease with stage 1 through stage 4 chronic kidney disease, or unspecified chronic kidney disease; E78.5 Hyperlipidemia, unspecified; Z79.84 Long term (current) use of oral hypoglycemic drugs; I50.9 Heart failure, unspecified
CPT/HCPCS: 36415; 51702; 76770; 80048; 80053; 87077; 96361; 96365; 96366; 97162; 97530; 99223; 99232; 99239; 99285; 81003; 81015; 83605; 85025; 85610; 85730; 87086; 87186; 99284; J0696; J1956

== ENCOUNTER 2018-08-18 02:22 | Outpatient (CLI) | payer OTHER, SELFPAY ==
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
[2018-08-18 16:16] LABS: Prothrombin Time 26.2 sec (9.3-10.8)
[2018-08-18 16:44] LABS: INR 2.8 (1.0-3.5)
== END 2018-08-18 02:42 ==
LOC: LOS 02:22 → LBO 15:32
PROVIDERS: PCP Emergency Medicine; Visit Provider Emergency Medicine
DX: I48.91 Unspecified atrial fibrillation (principal); Z79.01 Long term (current) use of anticoagulants; Z55.0 Illiteracy and low-level literacy
CPT/HCPCS: 36415; 85610

== ENCOUNTER 2018-09-09 13:24 | Inpatient (IN) | payer OTHER, SELFPAY ==
[2018-09-09 13:30] VITALS: BP 123/80; PULSE 89; RESP 20; TEMP 36.5; O2SAT 96
[2018-09-09 14:44] LABS: Bilirubin Negative (Negative); Blood Large (Negative); Clarity Cloudy; Glucose Negative (Negative); Ketones Trace mg/dL (Negative); Leukocyte Esterase Large (Negative); Nitrite Negative (Negative); Urobilinogen 0.2 EU/dL (Up TO 0.2)
[2018-09-09] MEDS: Ketorolac 30 MG/ML VIAL IVP (14:48)
[2018-09-09 14:53] LABS: C & S Indicated? Yes; WBC >50 HPF (0-5)
[2018-09-09 14:54] LABS: Abs Immature Grans 0.01 k/cumm (0.0-0.09); Absolute Basophil Count 0.02 k/cumm (0.0-0.2); Absolute Eosinophil Count 0.07 k/cumm (0.0-0.7); Absolute Lymphocyte Count 1.17 k/cumm (1.2-3.4); Absolute Neutrophil Count 5.08 k/cumm (1.2-6.7); Basophils % 0.3; HCT 36.8 % (40.0-50.0); HGB 11.9 g/dL (13.5-17.5); Immature Grans % 0.1; Lymphocytes % 16.6; Mean Corp. HGB Concentration 32.3 g/dL (32.0-36.0); Mean Corpuscular Hemoglobin 28.9 pg (27.0-33.0); Mean Corpuscular Volume 89.3 fL (80-95); Monocytes % 9.9; Neutrophils % 72.1; Platelet Count 210 x1000/uL (130-400); RBC 4.12 m/cumm (4.50-6.00); RBC Distribution Width 15.8 % (11.8-14.1); White Blood Cell Count 7.05 k/cumm (4.4-10.8)
[2018-09-09 15:06] LABS: ALT 24 U/L (12-78); AST 23 U/L (15-37); Albumin 2.9 g/dL (3.4-5.0); Alkaline Phosphatase 128 U/L (46-116); Anion Gap 9.4 mmol/L (3-11); BUN 30 mg/dL (7-18); Bilirubin, Total 0.8 mg/dL (0.2-1.0); CO2 24.6 mmol/L (21.0-32.0); CREATININE 2.23 mg/dL (0.70-1.30); Calcium 10.7 mg/dL (8.5-10.1); Chloride 102 mmol/L (98-107); Estimated GFR 28.57 (mL/min/1.73m2); Glucose 273 mg/dL (70-100); Lipase 242 U/L (73-393); Potassium 4.8 mmol/L (3.5-5.1); Sodium 136 mmol/L (136-145); Total Protein 7.7 g/dL (6.4-8.2)
--- NOTE | 2018-09-09 15:20 | W.ED.GENAD ---
Discharge Plan Disposition Patient Disposition: [facility] INPATIENT Condition: Fair Discharge Details Chief Complaint: Abd Prob Clinical Impression: Kidney stone, UTI (urinary tract infection), Supratherapeutic INR Reason For Visit: UTI Admit Date/Time: 09/09/18 23:52 Admit Provider: Mazin Sue Attending Provider: Mazin Sue Primary Care Provider: Ricardo Luis ED Provider: Yoni Garcia Discharge Data Discharge Date/Time-TO BE ENTERED AT DEPARTURE: 09/10/18 00:56 Medical Decision Making <Chapin Jessica MD - Last Filed: 09/09/18 19:44> 15:25 --78-year-old male with multiple medical problems including renal stones here with left lower quadrant abdominal pain intermittent over the past 3 days. Recent gross hematuria. Tender left lateral lower abdomen. Afebrile. INR pending. UA concerning for large blood and >50RBCs. Consider UTI vs ureteral stone vs septic stone vs other. Plan to CT a/p. Toradol IM for pain. 19:41 --CT of the abdomen pelvis interpreted by radiology: Right hydronephrosis and hydroureter with an 8 mm obstructing calculus at the UVJ, air in the bladder, right ureter and right pelvis. Correlation with recent instrumentation versus infection. Multiple nonobstructing bilateral renal calculi. Stranding around the pancreatic head. Correlation with lab values for acute pancreatitis. Other incidental findings noted including cyst in his kidneys, degenerative changes of the lumbar spine, and inguinal fat-containing hernias bilateral. Labs reviewed and supratherapeutic INR of 9.6 noted. No active bleeding. UA concerning for infection. Patient denies recent instrumentation. Suspect septic stone. Plan is to treat with ceftriaxone IV. Dr. Santos not available for consultation. Call to [facility] [place] - awaiting call back. HPI <Chapin Jessica MD - Last Filed: 09/09/18 19:44> General Mode of arrival: ambulatory. Date/Time Provider Initiated Documentation: 09/09/18 13:30. Limitations to Documentation: no limitations. Information obtained by: patient. HPI Narrative: 78-year-old male with history of diabetes, hypertension, atrial fibrillation, CHF, renal stones here with chief complaint of abdominal pain. Patient notes 3 days of intermittent, sharp, moderate intensity, left lower quadrant abdominal pain. Worse in certain positions. No associated dysuria. Has had some hematuria that now cleared. Related Data Home Medications Medication Instructions Recorded Confirmed multivitamin [Daily Multiple] 1 ea PO DAILY 12/11/16 09/09/18 blood sugar diagnostic [OneTouch #90 strip 02/12/17 08/12/18 Ultra Test] blood-glucose meter [OneTouch #1 kit 02/12/17 08/12/18 Ultra2] lancets [OneTouch UltraSoft #90 ea 02/12/17 08/12/18 Lancets] metformin 500 mg PO BID #180 tab-cap 04/17/17 09/09/18 amlodipine 5 mg PO DAILY #90 tab-cap 09/13/17 09/09/18 warfarin [Jantoven] 1 tab PO DIRECTED #180 tab 01/21/18 09/09/18 omeprazole 20 mg PO DAILY cap 04/15/18 09/09/18 furosemide 20 mg PO DAILY #90 tab 05/13/18 09/09/18 losartan 50 mg PO DAILY #90 tab-cap 07/09/18 09/09/18 potassium chloride [Klor-Con M10] 10 meq PO DAILY #90 tabcr 07/09/18 09/09/18 pravastatin 40 mg PO QPM #90 tab 07/09/18 09/09/18 cephalexin [Keflex] 500 mg PO TID #20 cap 08/17/18 metoprolol tartrate 100 mg tablet 50 mg PO BID #60 tab 08/22/18 09/09/18 Previous Rx's Medication Instructions Recorded amlodipine 5 mg PO DAILY #90 tab-cap 09/13/17 warfarin [Jantoven] 1 tab PO DIRECTED #180 tab 01/21/18 furosemide 20 mg PO DAILY #90 tab 05/13/18 losartan 50 mg PO DAILY #90 tab-cap 07/09/18 potassium chloride [Klor-Con M10] 10 meq PO DAILY #90 tabcr 07/09/18 pravastatin 40 mg PO QPM #90 tab 07/09/18 cephalexin [Keflex] 500 mg PO TID #20 cap 08/17/18 metoprolol tartrate 100 mg tablet 50 mg PO BID #60 tab 08/22/18 Allergies Allergy/AdvReac Type Severity Reaction Status Date / Time No Known Allergies Allergy Unverified 09/09/18 13:34 General Stated Complaint: Abd Prob GISSEL: 3 Review of Systems <Chapin Jessica MD - Last Filed: 09/09/18 19:44> Review of Systems All systems reviewed & are unremarkable except as noted in HPI and below Constitutional Denies fever(s) Cardiovascular Denies chest pain Gastrointestinal Reports abdominal pain, Denies nausea and Denies vomiting Exam <Chapin Jessica MD - Last Filed: 09/09/18 19:44> Const General: cooperative and no acute distress HENMT Head: normocephalic and atraumatic Mouth: moist mucous membranes Eyes Conjunctivae: normal conjunctivae Sclera: normal sclerae EOM: EOM intact bilaterally Neck Neck: trachea midline and supple Resp Effort & Inspection: able to speak in complete sentences and other Auscultation: clear to auscultation bilaterally, no rales, no rhonchi and no wheezes Cardio Jugular venous pressure: no JVD Rate: regular rate and not tachycardic Rhythm: regular rhythm GI Palpation: soft, not firm, no guarding, no masses, not rigid and tender (left lateral lower abd) Skin General skin exam: no rashes or lesions noted Neuro General: alert, awake, oriented x3 and tone normal Extrem General: no edema Psych Appearance: grossly normal Mental Status: mental status grossly normal Speech and Movement: speech and movement normal Course <Chapin Jessica MD - Last Filed: 09/09/18 19:44> Vital Signs Temperature 36.5 C 09/09/18 13:30 Pulse 89 09/09/18 13:30 Respiratory Rate 20 09/09/18 13:30 Blood Pressure 123/80 09/09/18 13:30 Pulse Oximetry 96 09/09/18 13:30 Temperature 36.5 C 09/09/18 13:30 Temperature Source Temporal Artery Scan 09/09/18 13:30 Pulse 89 09/09/18 13:30 Respiratory Rate 20 09/09/18 13:30 Respiratory Effort Non-Labored 09/09/18 13:32 Blood Pressure 123/80 09/09/18 13:30 Pulse Oximetry 96 09/09/18 13:30 Oxygen Delivery Method Room Air 09/09/18 13:30 Oxygen Flow Rate 0 09/09/18 13:30 Pain Level 8 09/09/18 14:48 Comment 09/09/18 13:30 Lab/Test Results Lab/Test Results: 09/09/18 14:37 Urine - Reflex from Ua Urine Culture - Pending Laboratory Tests Range/Units 09/09/18 09/09/18 09/09/18 14:37 14:44 14:44 WBC (4.4-10.8) k/cumm 7.05 RBC (4.50-6.00) m/cumm 4.12 L Hgb (13.5-17.5) g/dL 11.9 L Hct (40.0-50.0) % 36.8 L MCV (80-95) fL 89.3 MCH (27.0-33.0) pg 28.9 MCHC (32.0-36.0) g/dL 32.3 RDW (11.8-14.1) % 15.8 H Plt Count (130-400) x1000/uL 210 MPV (8.0-11.0) fL 9.0 Immature Gran % 0.1 Neutrophils % 72.1 Lymphocytes % 16.6 Monocytes % 9.9 Eosinophils % 1.0 Basophils % 0.3 Absolute Neutrophils (1.2-6.7) k/cumm 5.08 Absolute Lymphocytes (1.2-3.4) k/cumm 1.17 L Absolute Monocytes (0.11-0.7) k/cumm 0.70 Absolute Eosinophils (0.0-0.7) k/cumm 0.07 Absolute Basophils (0.0-0.2) k/cumm 0.02 Sodium (136-145) mmol/L 136 Potassium (3.5-5.1) mmol/L 4.8 Chloride (98-107) mmol/L 102 Carbon Dioxide (21.0-32.0) mmol/L 24.6 Anion Gap (3-11) mmol/L 9.4 BUN (7-18) mg/dL 30 H Creatinine (0.70-1.30) mg/dL 2.23 H Estimated GFR/1.73 m2 (mL/min/1.73m2) 28.57 Glucose (70-100) mg/dL 273 H Calcium (8.5-10.1) mg/dL 10.7 H Total Bilirubin (0.2-1.0) mg/dL 0.8 AST (15-37) U/L 23 ALT (12-78) U/L 24 Alkaline Phosphatase (46-116) U/L 128 H Total Protein (6.4-8.2) g/dL 7.7 Albumin (3.4-5.0) g/dL 2.9 L Lipase (73-393) U/L 242 Urine Color (Yellow) Brown Urine Clarity Cloudy Urine pH (5-8) 6.0 Ur Specific [place] (1.005-1.025) 1.020 Urine Protein (Negative) mg/dL 100 H Urine Ketones (Negative) mg/dL Trace H Urine Blood (Negative) Large H Urine Nitrite (Negative) Negative Urine Bilirubin (Negative) Negative Urine Urobilinogen (Up TO 0.2) EU/dL 0.2 Ur Leukocyte Esterase (Negative) Large H Urine RBC Not Applicable Urine WBC (0-5) HPF >50 Ur Epithelial Cells Not Applicable Urine Crystals Not Applicable Urine Bacteria Not Applicable Urine Mucus Not Applicable Ur Culture Indicated? Yes Urine Glucose (Negative) mg/dL Negative Sign Out <Chapin Jessica MD - Last Filed: 09/09/18 19:44> Sign Out Data: Sign Out Comment: Patient has septic stone. He also has supratherapeutic INR with no active bleeding. He has received ceftriaxone IV. Dr. Santos not available. Awaiting return call from [facility] [place] regarding transfer. Last updated by Chapin Jessica MD at 09/09/18 20:28 Post-Handoff Eval: Patient signed out to me pending discussion with urology at [facility]. 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 Also was in ER. Initially when discussed with urology patient accepted, however, once attending reviewed image results he felt the stone had passed and was in the bladder. Urology asked for a prone pelvic CT scan to be done. The CT scan shows that the stone thought to be in the right ureter is actually in the bladder and moves. Therefore patient does not need surgical intervention. 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 Also urology recommended decompression of the bladder with Knox until culture results are back and antibiotics could be tailored. Case discussed with Dr. Sue. Patient accepted to his service for further management.
--- NOTE | 2018-09-09 15:29 | ED.GENADUL_ITS ---
Discharge Plan Disposition Patient Disposition: [facility] INPATIENT Condition: Fair Discharge Details Chief Complaint: Abd Prob Clinical Impression: Kidney stone, UTI (urinary tract infection), Supratherapeutic INR Reason For Visit: UTI Admit Date/Time: 09/09/18 23:52 Admit Provider: Mazin Sue Attending Provider: Mazin Sue Primary Care Provider: Ricardo Luis ED Provider: Yoni Garcia Discharge Data Discharge Date/Time-TO BE ENTERED AT DEPARTURE: 09/10/18 00:56 Medical Decision Making <Chapin Jessica MD - Last Filed: 09/09/18 19:44> 15:25 --78-year-old male with multiple medical problems including renal stones here with left lower quadrant abdominal pain intermittent over the past 3 days. Recent gross hematuria. Tender left lateral lower abdomen. Afebrile. INR pending. UA concerning for large blood and >50RBCs. Consider UTI vs ureteral stone vs septic stone vs other. Plan to CT a/p. Toradol IM for pain. 19:41 --CT of the abdomen pelvis interpreted by radiology: Right hydronephrosis and hydroureter with an 8 mm obstructing calculus at the UVJ, air in the bladder , right ureter and right pelvis. Correlation with recent instrumentation versus infection. Multiple nonobstructing bilateral renal calculi. Stranding around the pancreatic head. Correlation with lab values for acute pancreatitis. Other incidental findings noted including cyst in his kidneys, degenerative changes of the lumbar spine, and inguinal fat-containing hernias bilateral. Labs reviewed and supratherapeutic INR of 9.6 noted. No active bleeding. UA concerning for infection. Patient denies recent instrumentation. Suspect septic stone. Plan is to treat with ceftriaxone IV. Dr. Santos not available for consultation. Call to [facility] [place] urology - awaiting call back. HPI <Chapin Jessica MD - Last Filed: 09/09/18 19:44> General Mode of arrival: ambulatory . Date/Time Provider Initiated Documentation: 09/09/18 13:30 . Limitations to Documentation: no limitations . Information obtained by: patient . HPI Narrative: 78-year-old male with history of diabetes, hypertension, atrial fibrillation, CHF, renal stones here with chief complaint of abdominal pain. Patient notes 3 days of intermittent, sharp, moderate intensity, left lower quadrant abdominal pain. Worse in certain positions. No associated dysuria. Has had some hematuria that now cleared. Related Data Home Medications Medication Instructions Recorded Confirmed multivitamin [Daily Multiple] 1 ea PO DAILY 12/11/16 09/09/18 blood sugar diagnostic [OneTouch #90 strip 02/12/17 08/12/18 Ultra Test] blood-glucose meter [OneTouch #1 kit 02/12/17 08/12/18 Ultra2] lancets [OneTouch UltraSoft #90 ea 02/12/17 08/12/18 Lancets] metformin 500 mg PO BID #180 tab-cap 04/17/17 09/09/18 amlodipine 5 mg PO DAILY #90 tab-cap 09/13/17 09/09/18 warfarin [Jantoven] 1 tab PO DIRECTED #180 tab 01/21/18 09/09/18 omeprazole 20 mg PO DAILY cap 04/15/18 09/09/18 furosemide 20 mg PO DAILY #90 tab 05/13/18 09/09/18 losartan 50 mg PO DAILY #90 tab-cap 07/09/18 09/09/18 potassium chloride [Klor-Con M10] 10 meq PO DAILY #90 tabcr 07/09/18 09/09/18 pravastatin 40 mg PO QPM #90 tab 07/09/18 09/09/18 cephalexin [Keflex] 500 mg PO TID #20 cap 08/17/18 metoprolol tartrate 100 mg tablet 50 mg PO BID #60 tab 08/22/18 09/09/18 Previous Rx's Medication Instructions Recorded amlodipine 5 mg PO DAILY #90 tab-cap 09/13/17 warfarin [Jantoven] 1 tab PO DIRECTED #180 tab 01/21/18 furosemide 20 mg PO DAILY #90 tab 05/13/18 losartan 50 mg PO DAILY #90 tab-cap 07/09/18 potassium chloride [Klor-Con M10] 10 meq PO DAILY #90 tabcr 07/09/18 pravastatin 40 mg PO QPM #90 tab 07/09/18 cephalexin [Keflex] 500 mg PO TID #20 cap 08/17/18 metoprolol tartrate 100 mg tablet 50 mg PO BID #60 tab 08/22/18 Allergies Allergy/AdvReac Type Severity Reaction Status Date / Time No Known Allergies Allergy Unverified 09/09/18 13:34 General Stated Complaint: Abd Prob GISSEL: 3 Review of Systems <Chapin Jessica MD - Last Filed: 09/09/18 19:44> Review of Systems All systems reviewed & are unremarkable except as noted in HPI and below Constitutional Denies fever(s) Cardiovascular Denies chest pain Gastrointestinal Reports abdominal pain, Denies nausea and Denies vomiting Exam <Chapin Jessica MD - Last Filed: 09/09/18 19:44> Const General: cooperative and no acute distress HENMT Head: normocephalic and atraumatic Mouth: moist mucous membranes Eyes Conjunctivae: normal conjunctivae Sclera: normal sclerae EOM: EOM intact bilaterally Neck Neck: trachea midline and supple Resp Effort & Inspection: able to speak in complete sentences and other Auscultation: clear to auscultation bilaterally, no rales, no rhonchi and no wheezes Cardio Jugular venous pressure: no JVD Rate: regular rate and not tachycardic Rhythm: regular rhythm GI Palpation: soft, not firm, no guarding, no masses, not rigid and tender (left lateral lower abd) Skin General skin exam: no rashes or lesions noted Neuro General: alert, awake, oriented x3 and tone normal Extrem General: no edema Psych Appearance: grossly normal Mental Status: mental status grossly normal Speech and Movement: speech and movement normal Course <Chapin Jessica MD - Last Filed: 09/09/18 19:44> Vital Signs Temperature 36.5 C 09/09/18 13:30 Pulse 89 09/09/18 13:30 Respiratory Rate 20 09/09/18 13:30 Blood Pressure 123/80 09/09/18 13:30 Pulse Oximetry 96 09/09/18 13:30 Temperature 36.5 C 09/09/18 13:30 Temperature Source Temporal Artery Scan 09/09/18 13:30 Pulse 89 09/09/18 13:30 Respiratory Rate 20 09/09/18 13:30 Respiratory Effort Non-Labored 09/09/18 13:32 Blood Pressure 123/80 09/09/18 13:30 Pulse Oximetry 96 09/09/18 13:30 Oxygen Delivery Method Room Air 09/09/18 13:30 Oxygen Flow Rate 0 09/09/18 13:30 Pain Level 8 09/09/18 14:48 Comment 09/09/18 13:30 Lab/Test Results Lab/Test Results: 09/09/18 14:37 Urine - Reflex from Ua Urine Culture - Pending Laboratory Tests Range/Units 09/09/18 09/09/18 09/09/18 14:37 14:44 14:44 WBC (4.4-10.8) k/cumm 7.05 RBC (4.50-6.00) m/cumm 4.12 L Hgb (13.5-17.5) g/dL 11.9 L Hct (40.0-50.0) % 36.8 L MCV (80-95) fL 89.3 MCH (27.0-33.0) pg 28.9 MCHC (32.0-36.0) g/dL 32.3 RDW (11.8-14.1) % 15.8 H Plt Count (130-400) x1000/uL 210 MPV (8.0-11.0) fL 9.0 Immature Gran % 0.1 Neutrophils % 72.1 Lymphocytes % 16.6 Monocytes % 9.9 Eosinophils % 1.0 Basophils % 0.3 Absolute Neutrophils (1.2-6.7) k/cumm 5.08 Absolute Lymphocytes (1.2-3.4) k/cumm 1.17 L Absolute Monocytes (0.11-0.7) k/cumm 0.70 Absolute Eosinophils (0.0-0.7) k/cumm 0.07 Absolute Basophils (0.0-0.2) k/cumm 0.02 Sodium (136-145) mmol/L 136 Potassium (3.5-5.1) mmol/L 4.8 Chloride (98-107) mmol/L 102 Carbon Dioxide (21.0-32.0) mmol/L 24.6 Anion Gap (3-11) mmol/L 9.4 BUN (7-18) mg/dL 30 H Creatinine (0.70-1.30) mg/dL 2.23 H Estimated GFR/1.73 m2 (mL/min/1.73m2) 28.57 Glucose (70-100) mg/dL 273 H Calcium (8.5-10.1) mg/dL 10.7 H Total Bilirubin (0.2-1.0) mg/dL 0.8 AST (15-37) U/L 23 ALT (12-78) U/L 24 Alkaline Phosphatase (46-116) U/L 128 H Total Protein (6.4-8.2) g/dL 7.7 Albumin (3.4-5.0) g/dL 2.9 L Lipase (73-393) U/L 242 Urine Color (Yellow) Brown Urine Clarity Cloudy Urine pH (5-8) 6.0 Ur Specific [place] (1.005-1.025) 1.020 Urine Protein (Negative) mg/dL 100 H Urine Ketones (Negative) mg/dL Trace H Urine Blood (Negative) Large H Urine Nitrite (Negative) Negative Urine Bilirubin (Negative) Negative Urine Urobilinogen (Up TO 0.2) EU/dL 0.2 Ur Leukocyte Esterase (Negative) Large H Urine RBC Not Applicable Urine WBC (0-5) HPF >50 Ur Epithelial Cells Not Applicable Urine Crystals Not Applicable Urine Bacteria Not Applicable Urine Mucus Not Applicable Ur Culture Indicated? Yes Urine Glucose (Negative) mg/dL Negative Sign Out <Chapin Jessica MD - Last Filed: 09/09/18 19:44> Sign Out Data: Sign Out Comment: Patient has septic stone. He also has supratherapeutic INR with no active bleeding. He has received ceftriaxone IV. Dr. Santos not available. Awaiting return call from [facility] [place] urology regarding transfer. Last updated by Chapin Jessica MD at 09/09/18 20:28 Post-Handoff Eval: Patient signed out to me pending discussion with urology at [facility]. 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 Also was in ER. Initially when discussed with urology patient accepted, however, once attending reviewed image results he felt the stone had passed and was in the bladder. Urology asked for a prone pelvic CT scan to be done. The CT scan shows that the stone thought to be in the right ureter is actually in the bladder and moves. Therefore patient does not need surgical intervention. 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 Also urology recommended decompression of the bladder with Knox until culture results are back and antibiotics could be tailored. Case discussed with Dr. Sue. Patient accepted to his service for further management.
[2018-09-09 15:37] LABS: Prothrombin Time 86.6 sec (9.3-10.8)
[2018-09-09 15:50] LABS: INR 9.6 (1.0-3.5)
--- NOTE | 2018-09-09 17:08 | DI.VRAD_ITS ---
EXAM: CT Abdomen and Pelvis Without Intravenous Contrast EXAM DATE/TIME: 09/09/2018 2:28 PM CLINICAL HISTORY: 78 years old, male; Signs and symptoms; Other: Llq abd pain 3 days; Prior surgery; Surgery date: 6+ months; Surgery type: Appendectomy, galbladder TECHNIQUE: Axial computed tomography images of the abdomen and pelvis without intravenous contrast. All CT scans at this facility use at least one of these dose optimization techniques: automated exposure control; mA and/or kV adjustment per patient size (includes targeted exams where dose is matched to clinical indication); or iterative reconstruction. Coronal and sagittal reformatted images were created and reviewed. COMPARISON: CT CHEST ABD PELVIS WITH CONTRAST 11/29/2017 9:35 PM FINDINGS: Lower thorax: Mild calcifications of the posterior pleura on the left. ABDOMEN: Liver: Normal. No mass. Gallbladder and bile ducts: Cholecystectomy clips. Pancreas: Pancreatic calcifications. There is mesenteric stranding around the pancreatic head. Spleen: Normal. No splenomegaly. Adrenals: Normal. No mass. Kidneys and ureters: 7.5 cm cyst in the upper pole of right kidney. 1.5 cm cyst in the midpole of the left kidney. There are multiple nonobstructing calculi in the bilateral kidneys. The largest measures 1.5 cm in the midpole of the right kidney and 1.7 cm in the midpole of the left kidney. There is mild perinephric stranding on the right.. There is hydronephrosis and hydroureter on the right with a 8mm calculus at the uretero vesicular junction. Air is seen in the bladder, in the right ureter and in the right pelvis. Correlation with recent instrumentation versus infection. The left ureter is unremarkable. Stomach and bowel: Normal. No obstruction. No mucosal thickening. Appendix: Appendix is unremarkable. PELVIS: Bladder: See Kidneys And Ureters Finding. Reproductive: Unremarkable as visualized. ABDOMEN and PELVIS: Intraperitoneal space: Normal. No free air. No significant fluid collection. Bones/joints: Degenerative changes of the spine. Grade 1 anterolisthesis of L4 over L5. Soft tissues: Bilateral inguinal hernias containing fat. Umbilical hernia containing fat. Vasculature: Normal. No abdominal aortic aneurysm. Lymph nodes: Normal. No enlarged lymph nodes. IMPRESSION: 1. Right hydronephrosis and hydroureter with a 8mm obstructing calculus at the ureterovesical junction. 2. Air in the bladder, right ureter and right pelvis. Correlation with recent instrumentation versus infection. 3. Multiple nonobstructing bilateral renal calculi as described above. 4. Stranding around the pancreatic head. Correlation with lab values for acute pancreatitis. Other nonacute findings as described above. Dictated and Authenticated by: Bassam Young MD. Ordering:FELICITY KELSEY MD
--- NOTE | 2018-09-09 21:28 | DI.CT_ITS ---
SYMPTOM/DIAGNOSIS: EVALUATE DISTAL RIGHT URETERAL STONE ABDOMEN AND PELVIC CT: Comparison is made with 06/06/18. The exam is somewhat limited by the patient's body habitus. There are multiple large calcifications in the medullary regions of both kidneys. There are two stones seen in the adjacent portion of the bladder of the posterior right side. There is air in the bladder as well as some air in the right renal pelvis. There is mild right hydronephrosis. There are bilateral renal cysts. The prostate does not appear enlarged. There are bilateral fatty containing inguinal hernias as well as an umbilical hernia. The appendix appears normal. There is a moderate quantity of stool. No bowel dilatation or inflammatory changes are seen. The lung bases show mild pleural calcification. The patient is status post cholecystectomy. The liver, spleen and adrenals are unremarkable. The pancreas is somewhat atrophic. The aorta is normal in diameter. Degenerative changes are seen in the spine. IMPRESSION: Multiple bilateral renal calculi. There is mild right hydronephrosis. There are two calcifications seen in the bladder, one of which is close to the ureterovesical junction. A bladder calculus was demonstrated on the previous exam. There is air within the urinary bladder as well as some bladder wall thickening and trabeculation. PELVIC CT: Comparison is made with noncontrast CT of the abdomen and pelvis performed earlier the same day. The exam was performed in the prone position. The two calculi in the bladder are seen in the anterior bladder, consistent with mobile calculi. Gas is again noted in the bladder. There appears to be trabeculation of the bladder wall and multiple small diverticula, filling with air. The bladder appears somewhat distended. The prostate is not enlarged. IMPRESSION: Two mobile bladder calculi are demonstrated. There is air in the urinary bladder which shows thickened wall with multiple diverticula versus emphysematous cystitis.
[2018-09-09] MEDS: Lactated Ringers 1,000 ML 125 ML IV (22:17)
--- NOTE | 2018-09-09 22:43 | DI.VRAD_ITS ---
EXAM: CT Pelvis Without Intravenous Contrast EXAM DATE/TIME: 09/09/2018 9:29 PM CLINICAL HISTORY: 78 years old, male; Signs and symptoms; Other: To evaluate distal right stone TECHNIQUE: Axial computed tomography images of the pelvis without intravenous contrast. All CT scans at this facility use at least one of these dose optimization techniques: automated exposure control; mA and/or kV adjustment per patient size (includes targeted exams where dose is matched to clinical indication); or iterative reconstruction. Coronal and sagittal reformatted images were created and reviewed. COMPARISON: CT renal colic wo 09/09/2018 4:20 PM FINDINGS: Kidneys and ureters: Upon prone positioning, the 2 calculi become dependent suggesting they are within the urinary bladder rather than in the UPJ. Stomach and bowel: No evidence of bowel obstruction. Appendix: Normal appendix. Bladder: Gas is also noted in the urinary bladder which can be seen secondary to recent instrumentation, infection, or fistulous connection. There appear to be some locules of gas either within the urinary bladder wall or within multiple diverticula (series 6 image 47-52) . Emphysematous cystitis is therefore not excluded. There is mild urinary bladder wall prominence which can be seen with infection in the appropriate clinical setting. Reproductive: Normal as visualized. Intraperitoneal space: Unremarkable. No free air. No significant fluid collection. Vasculature: Evaluation of the intra-abdominal organs and vasculature is limited secondary to the lack of IV contrast. Evaluation of the bowel is limited secondary to lack of oral contrast. Vascular calcifications. Lymph nodes: Unremarkable. No enlarged lymph nodes. Bones/joints: Skeletal degenerative changes. Minimal anterolisthesis of L4 on L5, unchanged from prior examination. Soft tissues: Incompletely imaged fat containing anterior abdominal wall hernia. bilateral fat containing inguinal hernias. IMPRESSION: 1. Upon prone positioning, 2 calculi become dependent suggesting they are within the urinary bladder rather than in the UPJ. 2. Gas is also noted in the urinary bladder which can be seen secondary to recent instrumentation, infection, or fistulous connection. There appear to be some locules of gas within the urinary bladder wall , within multiple diverticula , or within a combination (series 6 image 52) . Emphysematous cystitis is therefore not excluded. There is mild urinary bladder wall prominence which can be seen with infection in the appropriate clinical setting. 3. Other findings as above. Dictated and Authenticated by: Hafsa Tucker MD. Ordering:CASEY ALVARADO MD
--- NOTE | 2018-09-09 23:41 | W.PM.HP.N ---
Date of service: 09/09/18 Time of Service: 23:41 Assessment and Plan (1) Cystitis: Current visit: Yes Status: Acute Emphysematous cystitis: As discussed above will begin empiric antibiotics (Rocephin) and Place Knox catheter per urology recommendation. Will await urine culture results. As to the elevated INR, in the setting of gross hematuria, will give dose of vitamin K and obviously hold Coumadin Regarding diabetes will hold Metformin given renal insufficiency and put on sliding scale insulin coverage. I did review advanced directives and patient requests full code History of Present Illness Chief Complaint: Abdominal pain Narrative: Patient is a 78-year-old male with multiple medical problems including diabetes and kidney stone. He comes to the emergency room with several days of left lower quadrant pain (now resolved) and gross hematuria in the emergency room initial evaluation with CT showed what was thought to be 9 mm stone at the UV junction along with gas in the ureter repeat CT in the supine position showed the stone in a dependent position, confirming that it was in fact in the bladder not the ureter, and gas was noted in the wall of the bladder, indicating diagnosis of emphysematous cystitis case was discussed with urology at [facility] and they recommended medical management, entailing antibiotics and Knox catheter. Patient was was admitted for further evaluation and management. Past medical history: CHF, BPH, A. fib, GERD, hyperlipidemia, diabetes, sleep apnea, hypertension, kidney stones, UTI, chronic renal insufficiency, history of hemothorax on the left, history of pneumonia. Allergies: None known. Medications Norvasc 5 daily Lasix 20 daily Cozaar 50 daily metformin 500 twice daily Lopressor 50 twice daily Multivite's Prilosec 20 daily potassium 10 mEq daily pravastatin 40 at bedtime Coumadin unknown dose. Physical exam: Blood pressure 123/80, pulse 89 respirations 20 temp 36.5 HEENT is unremarkable, neck supple lungs clear, no CVA tenderness, abdomen is soft and nontender. and rectal exams are deferred extremities 1+ pedal edema. Neurological patient is alert and oriented moves all 4 extremities equally Laboratory: White count is 7.0 hematocrit 36 platelets 210 INR is 9.6 sodium 136 potassium 4.8 chloride 102 bicarb 24 BUN 30 creatinine 2.2 glucose [address] findings as described above. Review of Systems Review of Systems All systems reviewed & are unremarkable except as noted in HPI and below PFSH Family History Mother Diabetes Heart disease Father Neoplasm Brother Neoplasm Brother No problems noted. Daughter No problems noted. 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) LUCAS on CPAP (Chronic) Essential hypertension, benign (Chronic) Hemothorax on left (Resolved) Social History household members: spouse current occupational status: retired pets and animals: No Smoking/Tobacco Use Status: Never alcohol intake: current alcohol intake frequency: a few times a month substance use type: does not use special aomr needs: No Surgical History Cholecystectomy (~1985) Colonoscopy - MAC (~2002) Replacement of total knee joint Tonsillectomy and adenoidectomy Meds Home Medications Medication Instructions Recorded Confirmed Type multivitamin [Daily Multiple] 1 ea PO DAILY 12/11/16 09/09/18 History blood sugar diagnostic [OneTouch #90 strip 02/12/17 08/12/18 History Ultra Test] blood-glucose meter [OneTouch #1 kit 02/12/17 08/12/18 History Ultra2] lancets [OneTouch UltraSoft #90 ea 02/12/17 08/12/18 History Lancets] metformin 500 mg PO BID #180 tab-cap 04/17/17 09/09/18 History amlodipine 5 mg PO DAILY #90 tab-cap 09/13/17 09/09/18 Rx warfarin [Jantoven] 1 tab PO DIRECTED #180 tab 01/21/18 09/09/18 Rx omeprazole 20 mg PO DAILY cap 04/15/18 09/09/18 History furosemide 20 mg PO DAILY #90 tab 05/13/18 09/09/18 Rx losartan 50 mg PO DAILY #90 tab-cap 07/09/18 09/09/18 Rx potassium chloride [Klor-Con M10] 10 meq PO DAILY #90 tabcr 07/09/18 09/09/18 Rx pravastatin 40 mg PO QPM #90 tab 07/09/18 09/09/18 Rx cephalexin [Keflex] 500 mg PO TID #20 cap 08/17/18 Rx metoprolol tartrate 100 mg tablet 50 mg PO BID #60 tab 08/22/18 09/09/18 Rx Allergies Allergy/AdvReac Type Severity Reaction Status Date / Time No Known Allergies Allergy Unverified 09/09/18 13:34 Exam Narrative Exam Narrative: per HPI Results Labs : 09/09/18 14:44 09/09/18 14:44 Laboratory Results - last 24 hr 09/09/18 09/09/18 09/09/18 14:37 14:44 14:44 WBC 7.05 RBC 4.12 L Hgb 11.9 L Hct 36.8 L MCV 89.3 MCH 28.9 MCHC 32.3 RDW 15.8 H Plt Count 210 MPV 9.0 Immature Gran % 0.1 Neutrophils % 72.1 Lymphocytes % 16.6 Monocytes % 9.9 Eosinophils % 1.0 Basophils % 0.3 Absolute Neutrophils 5.08 Absolute Lymphocytes 1.17 L Absolute Monocytes 0.70 Absolute Eosinophils 0.07 Absolute Basophils 0.02 PT INR Sodium 136 Potassium 4.8 Chloride 102 Carbon Dioxide 24.6 Anion Gap 9.4 BUN 30 H Creatinine 2.23 H Estimated GFR/1.73 m2 28.57 Glucose 273 H Calcium 10.7 H Total Bilirubin 0.8 AST 23 ALT 24 Alkaline Phosphatase 128 H Total Protein 7.7 Albumin 2.9 L Lipase 242 Urine Color Brown Urine Clarity Cloudy Urine pH 6.0 Ur Specific Hamilton 1.020 Urine Protein 100 H Urine Ketones Trace H Urine Blood Large H Urine Nitrite Negative Urine Bilirubin Negative Urine Urobilinogen 0.2 Ur Leukocyte Esterase Large H Urine RBC Not Applicable Urine WBC >50 Ur Epithelial Cells Not Applicable Urine Crystals Not Applicable Urine Bacteria Not Applicable Urine Mucus Not Applicable Ur Culture Indicated? Yes Urine Glucose Negative 09/09/18 14:44 WBC RBC Hgb Hct MCV MCH MCHC RDW Plt Count MPV Immature Gran % Neutrophils % Lymphocytes % Monocytes % Eosinophils % Basophils % Absolute Neutrophils Absolute Lymphocytes Absolute Monocytes Absolute Eosinophils Absolute Basophils PT 86.6 H INR 9.6 H* D Sodium Potassium Chloride Carbon Dioxide Anion Gap BUN Creatinine Estimated GFR/1.73 m2 Glucose Calcium Total Bilirubin AST ALT Alkaline Phosphatase Total Protein Albumin Lipase Urine Color Urine Clarity Urine pH Ur Specific Hamilton Urine Protein Urine Ketones Urine Blood Urine Nitrite Urine Bilirubin Urine Urobilinogen Ur Leukocyte Esterase Urine RBC Urine WBC Ur Epithelial Cells Urine Crystals Urine Bacteria Urine Mucus Ur Culture Indicated? Urine Glucose Last Vital Signs Temp 36.5 C 09/09/18 13:30 Pulse 89 09/09/18 13:30 Resp 20 09/09/18 13:30 BP 123/80 09/09/18 13:30 Pulse Ox 96 09/09/18 13:30
[2018-09-10] VITALS (7 sets, daily range): BP systolic 107–135; BP diastolic 72–91; PULSE 73–98; RESP 20–30; TEMP 36.7–37.9; O2SAT 95–99
[2018-09-10 08:13] LABS: Abs Immature Grans 0.01 k/cumm (0.0-0.09); Absolute Basophil Count 0.02 k/cumm (0.0-0.2); Absolute Eosinophil Count 0.17 k/cumm (0.0-0.7); Absolute Lymphocyte Count 1.02 k/cumm (1.2-3.4); Absolute Monocyte Count 0.84 k/cumm (0.11-0.7); Basophils % 0.3; Eosinophils % 2.4; HCT 34.5 % (40.0-50.0); HGB 11.1 g/dL (13.5-17.5); Immature Grans % 0.1; Lymphocytes % 14.4; Mean Corp. HGB Concentration 32.2 g/dL (32.0-36.0); Mean Corpuscular Hemoglobin 28.8 pg (27.0-33.0); Mean Corpuscular Volume 89.6 fL (80-95); Mean Platelet Volume 9.1 fL (8.0-11.0); Monocytes % 11.9; Neutrophils % 70.9; Platelet Count 182 x1000/uL (130-400); RBC 3.85 m/cumm (4.50-6.00); RBC Distribution Width 15.7 % (11.8-14.1); White Blood Cell Count 7.06 k/cumm (4.4-10.8)
[2018-09-10 08:18] LABS: Anion Gap 8.3 mmol/L (3-11); BUN 34 mg/dL (7-18); CO2 24.7 mmol/L (21.0-32.0); CREATININE 2.06 mg/dL (0.70-1.30); Calcium 10.3 mg/dL (8.5-10.1); Chloride 105 mmol/L (98-107); Estimated GFR 31.31 (mL/min/1.73m2); Glucose 190 mg/dL (70-100); Potassium 4.3 mmol/L (3.5-5.1); Sodium 138 mmol/L (136-145)
[2018-09-10] MEDS: Metoprolol 50 MG TAB PO ×2 (08:23→19:12)
[2018-09-10] MEDS: Insulin Aspart 300 UNITS/3 ML PEN SC ×3 (08:23→17:40)
[2018-09-10] MEDS: amLODIPine 5 MG TAB PO (08:23)
[2018-09-10] MEDS: Omeprazole 20 MG CAPCR PO (08:23)
[2018-09-10] MEDS: Lactated Ringers 1,000 ML 125 ML IV ×2 (08:24→17:10)
[2018-09-10 10:25] LABS: Prothrombin Time 73.8 sec (9.3-10.8)
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
[2018-09-10 10:29] LABS: INR 8.2 (1.0-3.5)
--- NOTE | 2018-09-10 10:35 | PHARADMIT ---
Addendum entered by Jose Mas Sullivancher PALACIOS 09/15/18 11:57: Patient is ready for discharge on oral Levaquin. He has passed (8mm) stone). INR-OK (2.4) .....SCr-1.72 elevated Patient has not had BM (fleets now, ordered. Discharge orders once he has a BM. Original Note: Addendum entered by Jose Mas Sullivancher PALACIOS 09/12/18 17:43: Pharmacy Note Subjective MD considering changing to DOAC from Warfarin. Still no Urology consult added Urine has cleared Objective VS-OK pain: 0 Lytes-OK SCr- 1.69 INR-1.4 H&H-UP No BM yet Assessment Rocephin continues Plan No MD notes entered as of yet Original Note: Addendum entered by Jose Sullivan III 09/11/18 14:49: Pharmacy Note Subjective Patient admitted for High INR-9.6 and hematuria. Question of possible renal stone involvement INR has dropped to 1.8 today. MD is to contact patients urologist in [place] for possible transfer. Objective VS-OK pain: 08/27 Lytes-ok SCr-1.89 H&H-9.9/31.1 Plts-164 No BM Assessment Urine remains robles. Rocephin continues. Vit-K used to bring INR down. Plan Either patient will be transferred or a consult will be entered for Original Note: Admission Pharmacy Clinical Review UTI, (hematuria) Code Status Full Code Current Weight Wgt- 145.5 kg2 Renally Cleared and Narrow Therapeutic Index Meds CrCl~ 32 mL/min Meds-ok QTc Value / Action Taken NA BP Control, Fever BP- 135/91 Tmax-37.2C Electrolytes reviewed Na- 138 K+4.3 Mag-2.0 DVT Prophylaxis No, high INR (Warfarin Held) Opiate Usage / Scheduled Bowel Regimen Ordered No No Plt/SCr for Heparin / Enoxaparin Plts-182 SCr-2005 INR for Warfarin INR-9.6 (8.2 now) H/H stable, WBC/Bands H&H- 11.1/34.5 WBC- 7.06 Antibiotic appropriateness Rocephin Cultures and Sensitivities Urine-pending Surgical ABX d/c within 24 hr na DM control / Insulin Dosing BG- 190 Aspart Heart Failure (Check EF%) (MIS's, B-Block, Diuretics) Norvasc, Lopressor, IV to PO Switch No Home Meds Reviewed Yes Home Meds Not Ordered Lasix, Losartan, , Warfarin, Keflex,M-vites, Metformin, K-Dur Comments
[2018-09-10] MEDS: Phytonadione 5 MG TABLET 10 MG PO (11:06)
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
--- NOTE | 2018-09-10 15:53 | CHAPLAIN ---
I introduced myself to Sav, explained my role and offered support. Sav was pleasant but not interested in further conversation.
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
[2018-09-10] MEDS: Normal Saline Flush 10 ML SYR IVP (16:20)
[2018-09-10] MEDS: Tamsulosin 0.4 MG CAPCR PO (17:47)
[2018-09-10] MEDS: Pravastatin 40 MG TAB PO (19:12)
[2018-09-10] MEDS: Acetaminophen 325 MG TAB 650 MG PO (19:12)
--- NOTE | 2018-09-10 19:32 | PGE_ITS ---
Assessment and Plan (1) Emphysematous cystitis: Current visit: Yes Status: Acute Due to GNR UTI POA - continue empiric antibiotics, griffin. (2) Elevated INR: Current visit: Yes Status: Acute S/p Vit K/FFP. Monitor INR. (3) Hematuria: Current visit: Yes Status: Acute S/p Vit K/FFP. Continue griffin. May require transfer for a urologic intervention. (4) Hydronephrosis: Current visit: Yes Status: Acute Continue griffin. As above (5) Nephrolithiasis: Current visit: Yes Status: Chronic Evidently the obstructive stone initially seen on CT is now in the bladder. May require urologic instrumentation. For now, continue griffin. (6) Chronic a-fib: Current visit: Yes Status: Acute Holding anticoagulation. Rate controlled. (7) CHF (congestive heart failure): Current visit: No Status: Chronic Euvolemic. Monitor volume status. Subjective Interval history since last seen: Mr Winkler feels better. He denies any dizziness , chest pain, shortness of breath (he states that this is how he normally breathes, and his - at bedside - confirms this). He denies any nausea/ vomiting. He still has some LLQ discomfort with some movements, but overall he states he feels better. He consents to getting FFP transfusion as he continues to have significant hematuria. Exam Narrative Exam Narrative: General: Very pleasant obese male, laying comfortably in bed, having some abdominal breathing HEENT: EOMI, MMM Heart: irregularly irregular rhythm, no murmurs Lungs: CTAB Abdomen: soft, nontender, nondistended, obses : jain red blood in griffin catheter Extremities: no edema/clubbing/cyanosis of BLE's. Objective Objective Clinical Data: Abnormal lab results 09/10/18 09/10/18 09/10/18 Range/Units 07:50 07:50 07:50 RBC 3.85 L (4.50-6.00) m/cumm Hgb 11.1 L (13.5-17.5) g/dL Hct 34.5 L (40.0-50.0) % RDW 15.7 H (11.8-14.1) % Absolute Lymphocytes 1.02 L (1.2-3.4) k/cumm Absolute Monocytes 0.84 H (0.11-0.7) k/cumm PT 73.8 H (9.3-10.8) sec INR 8.2 H* D (1.0-3.5) BUN 34 H (7-18) mg/dL Creatinine 2.06 H (0.70-1.30) mg/dL Glucose 190 H D (70-100) mg/dL Calcium 10.3 H (8.5-10.1) mg/dL Vital Signs Temperature 37.1 C 09/10/18 17:05 Temperature Source Tympanic 09/10/18 16:05 Pulse 79 09/10/18 17:05 Pulse Rhythm Irregular 09/10/18 15:40 Respiratory Rate 20 09/10/18 17:05 Respiratory Effort 09/10/18 15:40 Respiratory Depth Shallow 09/10/18 15:40 Respiratory Pattern Tachypnea 09/10/18 15:40 Blood Pressure 109/72 09/10/18 17:05 Pulse Oximetry 99 09/10/18 17:05 Oxygen Delivery Method Room Air 09/10/18 17:05 Oxygen Flow Rate 0 09/10/18 17:05 Pain Level 0 09/10/18 01:17 Comment 09/09/18 13:30 Intake & Output 09/09/18 09/10/18 09/10/18 23:59 11:59 23:59 Intake Total 1058.75 / 1058.75 1889.000 / 1889.000 Output Total 400 / 400 1200 / 1200 Balance 658.75 / 658.75 689.000 / 689.000 Weight 145.15 kg 145.15 kg Intake: IV 818.75 / 818.75 1000.000 / 1000.000 Oral 240 / 240 600 / 600 Blood Product 289 / 289 Frozen Plasma Unit 289 / 289 [id number] Output: Urine 400 / 400 1200 / 1200 Other: Urine Color Brown Dark Red Dark Red Urine Appearance Clear Hematuria Laboratory Results WBC 7.06 k/cumm (4.4-10.8) 09/10/18 07:50 RBC 3.85 m/cumm (4.50-6.00) L 09/10/18 07:50 Hgb 11.1 g/dL (13.5-17.5) L 09/10/18 07:50 Hct 34.5 % (40.0-50.0) L 09/10/18 07:50 MCV 89.6 fL (80-95) 09/10/18 07:50 MCH 28.8 pg (27.0-33.0) 09/10/18 07:50 MCHC 32.2 g/dL (32.0-36.0) 09/10/18 07:50 RDW 15.7 % (11.8-14.1) H 09/10/18 07:50 Plt Count 182 x1000/uL (130-400) 09/10/18 07:50 MPV 9.1 fL (8.0-11.0) 09/10/18 07:50 Immature Gran % 0.1 09/10/18 07:50 Neutrophils % 70.9 09/10/18 07:50 Lymphocytes % 14.4 09/10/18 07:50 Monocytes % 11.9 09/10/18 07:50 Eosinophils % 2.4 09/10/18 07:50 Basophils % 0.3 09/10/18 07:50 Absolute Neutrophils 5.00 k/cumm (1.2-6.7) 09/10/18 07:50 Absolute Lymphocytes 1.02 k/cumm (1.2-3.4) L 09/10/18 07:50 Absolute Monocytes 0.84 k/cumm (0.11-0.7) H 09/10/18 07:50 Absolute Eosinophils 0.17 k/cumm (0.0-0.7) 09/10/18 07:50 Absolute Basophils 0.02 k/cumm (0.0-0.2) 09/10/18 07:50 PT 73.8 sec (9.3-10.8) H 09/10/18 07:50 INR 8.2 (1.0-3.5) H* D 09/10/18 07:50 Sodium 138 mmol/L (136-145) 09/10/18 07:50 Potassium 4.3 mmol/L (3.5-5.1) 09/10/18 07:50 Chloride 105 mmol/L (98-107) 09/10/18 07:50 Carbon Dioxide 24.7 mmol/L (21.0-32.0) 09/10/18 07:50 Anion Gap 8.3 mmol/L (3-11) 09/10/18 07:50 BUN 34 mg/dL (7-18) H 09/10/18 07:50 Creatinine 2.06 mg/dL (0.70-1.30) H 09/10/18 07:50 Estimated GFR/1.73 m2 31.31 (mL/min/1.73m2) 09/10/18 07:50 Glucose 190 mg/dL (70-100) H D 09/10/18 07:50 Calcium 10.3 mg/dL (8.5-10.1) H 09/10/18 07:50 Magnesium 2.0 mg/dL (1.8-2.4) 09/10/18 07:50 Total Bilirubin 0.8 mg/dL (0.2-1.0) 09/09/18 14:44 AST 23 U/L (15-37) 09/09/18 14:44 ALT 24 U/L (12-78) 09/09/18 14:44 Alkaline Phosphatase 128 U/L (46-116) H 09/09/18 14:44 Total Protein 7.7 g/dL (6.4-8.2) 09/09/18 14:44 Albumin 2.9 g/dL (3.4-5.0) L 09/09/18 14:44 Lipase 242 U/L (73-393) 09/09/18 14:44 Urine Color Brown (Yellow) 09/09/18 14:37 Urine Clarity Cloudy 09/09/18 14:37 Urine pH 6.0 (5-8) 09/09/18 14:37 Ur Specific [place] 1.020 (1.005-1.025) 09/09/18 14:37 Urine Protein 100 mg/dL (Negative) H 09/09/18 14:37 Urine Ketones Trace mg/dL (Negative) H 09/09/18 14:37 Urine Blood Large (Negative) H 09/09/18 14:37 Urine Nitrite Negative (Negative) 09/09/18 14:37 Urine Bilirubin Negative (Negative) 09/09/18 14:37 Urine Urobilinogen 0.2 EU/dL (Up TO 0.2) 09/09/18 14:37 Ur Leukocyte Esterase Large (Negative) H 09/09/18 14:37 Urine RBC Not Applicable 09/09/18 14:37 Urine WBC >50 HPF (0-5) 09/09/18 14:37 Ur Epithelial Cells Not Applicable 09/09/18 14:37 Urine Crystals Not Applicable 09/09/18 14:37 Urine Bacteria Not Applicable 09/09/18 14:37 Urine Mucus Not Applicable 09/09/18 14:37 Ur Culture Indicated? Yes 09/09/18 14:37 Urine Glucose Negative mg/dL (Negative) 09/09/18 14:37 Patient ABO/Rh O Negative 09/10/18 07:50
[2018-09-10] MEDS: MORPHine 10 MG/ML VIAL IVP (21:14)
[2018-09-11 00:25] VITALS: BP 93/65; PULSE 72; RESP 20; TEMP 36.8; O2SAT 95
[2018-09-11] MEDS: Lactated Ringers 1,000 ML 125 ML IV ×2 (01:23→09:45)
[2018-09-11] MEDS: Normal Saline Flush 10 ML SYR IVP ×5 (02:13→21:23)
[2018-09-11] MEDS: MORPHine 10 MG/ML VIAL IVP ×4 (02:14→22:43)
[2018-09-11 07:10] VITALS: O2SAT 95
[2018-09-11 07:11] VITALS: BP 106/70; PULSE 66; RESP 19; TEMP 36.3; O2SAT 94
[2018-09-11] MEDS: Metoprolol 50 MG TAB PO ×2 (07:41→20:49)
[2018-09-11] MEDS: Omeprazole 20 MG CAPCR PO (07:41)
[2018-09-11] MEDS: amLODIPine 5 MG TAB PO (07:41)
[2018-09-11 07:46] LABS: Abs Immature Grans 0.02 k/cumm (0.0-0.09); Absolute Basophil Count 0.02 k/cumm (0.0-0.2); Absolute Eosinophil Count 0.16 k/cumm (0.0-0.7); Absolute Lymphocyte Count 1.24 k/cumm (1.2-3.4); Absolute Monocyte Count 0.88 k/cumm (0.11-0.7); Basophils % 0.3; Eosinophils % 2.5; HCT 31.1 % (40.0-50.0); HGB 9.9 g/dL (13.5-17.5); Immature Grans % 0.3; Lymphocytes % 19.6; Mean Corp. HGB Concentration 31.8 g/dL (32.0-36.0); Mean Corpuscular Hemoglobin 28.9 pg (27.0-33.0); Mean Corpuscular Volume 90.9 fL (80-95); Mean Platelet Volume 8.9 fL (8.0-11.0); Monocytes % 13.9; Neutrophils % 63.4; Platelet Count 164 x1000/uL (130-400); RBC 3.42 m/cumm (4.50-6.00); RBC Distribution Width 15.7 % (11.8-14.1); White Blood Cell Count 6.32 k/cumm (4.4-10.8)
[2018-09-11] MEDS: Insulin Aspart 300 UNITS/3 ML PEN SC ×3 (07:53→17:19)
[2018-09-11 07:54] LABS: BUN 27 mg/dL (7-18); CREATININE 1.89 mg/dL (0.70-1.30); Calcium 9.5 mg/dL (8.5-10.1); Chloride 106 mmol/L (98-107); Estimated GFR 34.58 (mL/min/1.73m2); Glucose 196 mg/dL (70-100); Potassium 4.2 mmol/L (3.5-5.1); Sodium 139 mmol/L (136-145)
[2018-09-11 07:55] LABS: INR 1.8 (1.0-3.5); Prothrombin Time 17.4 sec (9.3-10.8)
--- NOTE | 2018-09-11 11:28 | PT.INTREAT ---
Date of service: 09/11/18 Time of Service: 11:28 PT Notes Inpatient Physical Therapy Treatment Note Date: 09/11/18 SUBJECTIVE: Sav states that he is feeling good this morning, that he is not having any pain at this time. OBJECTIVE: PAIN: No c/o pain BED MOBILITY/TRANSFERS Sit-stand: SBA Stand-sit: S GAIT Assistive Device: FWW Weight bearing: Full Assist: SBA Distance: 150' Deviation: Slow pace ASSESSMENT: Patient tolerated session without c/o pain. He was able to progress his gait distance with FWW support and SBA. PLAN: Continue with PT's POC TREATMENT CODE/TIME: 25 minutes; TAx2
--- NOTE | 2018-09-11 13:12 | PDOC.CMPRO ---
- If Service Date Differs Date of service: 09/11/18 Time of Service: 13:13 Care Management Progress Note S/O: CM with patient in the room his spouse is present. Sav continues to have a griffin cath in place with robles colored urine. is going to consult Sav's urologist for possible transfer of patient to his service. Sav remains on IV fluids and antibiotics. He states his pain is controlled. Art INR is 1.8 today from 9.6 on admission his coumadin is on hold. Sav does have a PT consult. A:Sav is a 78 year old male admitted with UTI P:Patient will return home when medically ready for discharge vs transfer to urology services in [place]. CM to continue to provide support ongoing discharge planning, education and disposition to patient, family, and care team.
[2018-09-11 15:32] VITALS: BP 117/76; PULSE 78; RESP 22; TEMP 37.4; O2SAT 95
[2018-09-11] MEDS: Acetaminophen 325 MG TAB 650 MG PO (16:47)
[2018-09-11] MEDS: Tamsulosin 0.4 MG CAPCR PO (17:27)
--- NOTE | 2018-09-11 17:45 | PGE_ITS ---
Assessment and Plan (1) Emphysematous cystitis: Current visit: Yes Status: Acute Due to Klebsiella UTI POA - continue rocephin (sensitive) (2) Elevated INR: Current visit: Yes Status: Resolved S/p Vit K/FFP. INR 1.8 today. Monitor. (3) Hematuria: Current visit: Yes Status: Acute In setting of nephrolithiasis/cystitis, Resolved S/p Vit K/FFP. Continue griffin. (4) Hydronephrosis: Current visit: Yes Status: Acute Continue griffin. As above. Urology follow up as outpatient (5) Nephrolithiasis: Current visit: Yes Status: Chronic Evidently the obstructive stone initially seen on CT is now in the bladder - confirmed with radiology. Continue griffin, follow up as outpatient. (6) Chronic a-fib: Current visit: Yes Status: Acute Holding anticoagulation. Rate controlled. (7) CHF (congestive heart failure): Current visit: No Status: Chronic D/c IVF as did become slightly fluid overloaded. Would initiate diuresis tomorrow. Subjective Interval history since last seen: Feels better today. States he is in less pain. He was able to ambulate. Denies any dizziness, chest pain, shortness of breath, nausea, vomiting. Hematuria has resolved. Exam Narrative Exam Narrative: General: Very pleasant obese male, laying comfortably in bed, no abdominal breathing noted today. HEENT: EOMI, MMM Heart: irregularly irregular rhythm, no murmurs Lungs: CTAB Abdomen: soft, nontender, nondistended, obese : robles urine in griffin catheter Extremities: +1 BLE edema, symmetric/no clubbing/no cyanosis of BLE's. Objective Objective Clinical Data: Abnormal lab results 09/11/18 09/11/18 09/11/18 Range/Units 07:35 07:35 07:35 RBC 3.42 L (4.50-6.00) m/cumm Hgb 9.9 L (13.5-17.5) g/dL Hct 31.1 L (40.0-50.0) % MCHC 31.8 L (32.0-36.0) g/dL RDW 15.7 H (11.8-14.1) % Absolute Monocytes 0.88 H (0.11-0.7) k/cumm PT 17.4 H D (9.3-10.8) sec BUN 27 H (7-18) mg/dL Creatinine 1.89 H (0.70-1.30) mg/dL Glucose 196 H (70-100) mg/dL Vital Signs Temperature 37.4 C 09/11/18 15:32 Temperature Source Tympanic 09/11/18 15:32 Pulse 78 09/11/18 15:32 Pulse Rhythm Irregular 09/11/18 07:30 Respiratory Rate 22 09/11/18 15:32 Respiratory Effort 09/11/18 07:30 Respiratory Depth Deep 09/11/18 07:30 Respiratory Pattern Normal 09/11/18 07:30 Blood Pressure 117/76 09/11/18 15:32 Pulse Oximetry 95 09/11/18 15:32 Oxygen Delivery Method Room Air 09/11/18 15:32 Oxygen Flow Rate 0 09/11/18 15:32 Pain Level 10 09/11/18 14:41 Comment 09/09/18 13:30 Intake & Output 09/10/18 09/11/18 09/11/18 23:59 11:59 23:59 Intake Total 1939.000 / 7368.389 3190 / 2640 795.833 / 795.833 Output Total 1949 650 / 650 1000 / 1000 Balance -11.000 / -11.000 1989 / 1989 -204.167 / -204.167 Intake: IV 1050.000 / 5385.027 9131 / 2000 545.833 / 545.833 Oral 600 / 600 640 / 640 250 / 250 Blood Product 289 / 289 Frozen Plasma Unit 289 / 289 [id number] Output: Urine 1949 650 / 650 1000 / 1000 Other: Urine Color Dark Red Dark [place] Brown Urine Appearance Hematuria Cloudy Comment ? SOME HEMATURIA. URINE WAS DK ROBLES TO TEA COLORED. Laboratory Results WBC 6.32 k/cumm (4.4-10.8) 09/11/18 07:35 RBC 3.42 m/cumm (4.50-6.00) L 09/11/18 07:35 Hgb 9.9 g/dL (13.5-17.5) L 09/11/18 07:35 Hct 31.1 % (40.0-50.0) L 09/11/18 07:35 MCV 90.9 fL (80-95) 09/11/18 07:35 MCH 28.9 pg (27.0-33.0) 09/11/18 07:35 MCHC 31.8 g/dL (32.0-36.0) L 09/11/18 07:35 RDW 15.7 % (11.8-14.1) H 09/11/18 07:35 Plt Count 164 x1000/uL (130-400) 09/11/18 07:35 MPV 8.9 fL (8.0-11.0) 09/11/18 07:35 Immature Gran % 0.3 09/11/18 07:35 Neutrophils % 63.4 09/11/18 07:35 Lymphocytes % 19.6 09/11/18 07:35 Monocytes % 13.9 09/11/18 07:35 Eosinophils % 2.5 09/11/18 07:35 Basophils % 0.3 09/11/18 07:35 Absolute Neutrophils 4.00 k/cumm (1.2-6.7) 09/11/18 07:35 Absolute Lymphocytes 1.24 k/cumm (1.2-3.4) 09/11/18 07:35 Absolute Monocytes 0.88 k/cumm (0.11-0.7) H 09/11/18 07:35 Absolute Eosinophils 0.16 k/cumm (0.0-0.7) 09/11/18 07:35 Absolute Basophils 0.02 k/cumm (0.0-0.2) 09/11/18 07:35 PT 17.4 sec (9.3-10.8) H D 09/11/18 07:35 INR 1.8 (1.0-3.5) D 09/11/18 07:35 Sodium 139 mmol/L (136-145) 09/11/18 07:35 Potassium 4.2 mmol/L (3.5-5.1) 09/11/18 07:35 Chloride 106 mmol/L (98-107) 09/11/18 07:35 Carbon Dioxide 24.0 mmol/L (21.0-32.0) 09/11/18 07:35 Anion Gap 9.0 mmol/L (3-11) 09/11/18 07:35 BUN 27 mg/dL (7-18) H 09/11/18 07:35 Creatinine 1.89 mg/dL (0.70-1.30) H 09/11/18 07:35 Estimated GFR/1.73 m2 34.58 (mL/min/1.73m2) 09/11/18 07:35 Glucose 196 mg/dL (70-100) H 09/11/18 07:35 Calcium 9.5 mg/dL (8.5-10.1) 09/11/18 07:35 Magnesium 2.0 mg/dL (1.8-2.4) 09/11/18 07:35 Total Bilirubin 0.8 mg/dL (0.2-1.0) 09/09/18 14:44 AST 23 U/L (15-37) 09/09/18 14:44 ALT 24 U/L (12-78) 09/09/18 14:44 Alkaline Phosphatase 128 U/L (46-116) H 09/09/18 14:44 Total Protein 7.7 g/dL (6.4-8.2) 09/09/18 14:44 Albumin 2.9 g/dL (3.4-5.0) L 09/09/18 14:44 Lipase 242 U/L (73-393) 09/09/18 14:44 Urine Color Brown (Yellow) 09/09/18 14:37 Urine Clarity Cloudy 09/09/18 14:37 Urine pH 6.0 (5-8) 09/09/18 14:37 Ur Specific [place] 1.020 (1.005-1.025) 09/09/18 14:37 Urine Protein 100 mg/dL (Negative) H 09/09/18 14:37 Urine Ketones Trace mg/dL (Negative) H 09/09/18 14:37 Urine Blood Large (Negative) H 09/09/18 14:37 Urine Nitrite Negative (Negative) 09/09/18 14:37 Urine Bilirubin Negative (Negative) 09/09/18 14:37 Urine Urobilinogen 0.2 EU/dL (Up TO 0.2) 09/09/18 14:37 Ur Leukocyte Esterase Large (Negative) H 09/09/18 14:37 Urine RBC Not Applicable 09/09/18 14:37 Urine WBC >50 HPF (0-5) 09/09/18 14:37 Ur Epithelial Cells Not Applicable 09/09/18 14:37 Urine Crystals Not Applicable 09/09/18 14:37 Urine Bacteria Not Applicable 09/09/18 14:37 Urine Mucus Not Applicable 09/09/18 14:37 Ur Culture Indicated? Yes 09/09/18 14:37 Urine Glucose Negative mg/dL (Negative) 09/09/18 14:37 Patient ABO/Rh O Negative 09/10/18 07:50
[2018-09-11] MEDS: Heparin 5,000 UNITS/ML VIAL 5000 UNITS SC (18:25)
[2018-09-11] MEDS: Pravastatin 40 MG TAB PO (20:49)
[2018-09-11 23:27] VITALS: BP 111/75; PULSE 62; RESP 18; TEMP 37.2; O2SAT 96
[2018-09-12] MEDS: Normal Saline Flush 10 ML SYR IVP ×7 (01:02→23:25)
[2018-09-12] MEDS: MORPHine 10 MG/ML VIAL IVP ×6 (01:03→23:24)
[2018-09-12] MEDS: Heparin 5,000 UNITS/ML VIAL 5000 UNITS SC ×2 (06:43→17:32)
[2018-09-12 07:30] LABS: Abs Immature Grans 0.02 k/cumm (0.0-0.09); Absolute Basophil Count 0.03 k/cumm (0.0-0.2); Absolute Lymphocyte Count 1.45 k/cumm (1.2-3.4); Absolute Monocyte Count 0.69 k/cumm (0.11-0.7); Absolute Neutrophil Count 4.14 k/cumm (1.2-6.7); Basophils % 0.5; Eosinophils % 3.1; Immature Grans % 0.3; Lymphocytes % 22.2; Mean Corp. HGB Concentration 31.4 g/dL (32.0-36.0); Mean Corpuscular Hemoglobin 28.6 pg (27.0-33.0); Mean Corpuscular Volume 90.9 fL (80-95); Mean Platelet Volume 9.2 fL (8.0-11.0); Monocytes % 10.6; Neutrophils % 63.3; Platelet Count 213 x1000/uL (130-400); RBC 3.85 m/cumm (4.50-6.00); RBC Distribution Width 15.5 % (11.8-14.1); White Blood Cell Count 6.53 k/cumm (4.4-10.8)
[2018-09-12 07:35] VITALS: BP 120/80; PULSE 95; RESP 18; TEMP 36.9; O2SAT 96
[2018-09-12 07:39] LABS: INR 1.4 (1.0-3.5); Prothrombin Time 13.8 sec (9.3-10.8)
[2018-09-12 07:41] LABS: Anion Gap 9.8 mmol/L (3-11); BUN 23 mg/dL (7-18); CO2 24.2 mmol/L (21.0-32.0); CREATININE 1.69 mg/dL (0.70-1.30); Calcium 10.2 mg/dL (8.5-10.1); Chloride 105 mmol/L (98-107); Estimated GFR 39.34 (mL/min/1.73m2); Glucose 179 mg/dL (70-100); Magnesium 1.9 mg/dL (1.8-2.4); Potassium 4.1 mmol/L (3.5-5.1); Sodium 139 mmol/L (136-145)
[2018-09-12] MEDS: Metoprolol 50 MG TAB PO ×2 (08:19→19:16)
[2018-09-12] MEDS: amLODIPine 5 MG TAB PO (08:20)
[2018-09-12] MEDS: Omeprazole 20 MG CAPCR PO (08:20)
[2018-09-12] MEDS: Insulin Aspart 300 UNITS/3 ML PEN SC ×3 (08:27→17:32)
--- NOTE | 2018-09-12 09:03 | CMPROGNOTE_ITS ---
- If Service Date Differs Date of service: 09/12/18 Time of Service: 09:01 Care Management Progress Note S/O:CM met with Sav at the bedside he is alert and engaged. He states he understands his current plan of care. Sav is tearful at times during his conversation with CM reflective on his past. No change in Sav's plan of care today he remains on IV antibiotics. He will discharge home when medically ready with his spouse. Anticipate no additional services he will need to continue follow up with his urologist. A:Sva is a 78 year old male admitted with UTI P:Patient will return home when medically ready for discharge home when medically ready with his spouse via private car. CM to continue to provide support ongoing discharge planning, education and disposition to patient, family , and care team.
--- NOTE | 2018-09-12 11:39 | PT.INNT ---
Date of service: 09/12/18 Time of Service: 11:39 PT Notes PHYSICAL THERAPY NOTE 09/12/18 3 attempts to see patient for PT this morning, pt receiving Reiki, pt then sleeping, pt then meeting with Case Management. Will continue attempts in pm Jack Fitzgerald PT
[2018-09-12] MEDS: Acetaminophen 325 MG TAB 650 MG PO ×2 (16:06→23:25)
[2018-09-12 16:18] VITALS: BP 148/77; PULSE 87; RESP 20; TEMP 37.3; O2SAT 94
[2018-09-12] MEDS: Tamsulosin 0.4 MG CAPCR PO (17:32)
--- NOTE | 2018-09-12 18:42 | W.PM.PROGNOT ---
Assessment and Plan (1) Emphysematous cystitis: Current visit: Yes Status: Acute Due to Klebsiella UTI POA - on rocephin D4. Voiding trial tonight. To finish a 14 day course of antibiotics considering the complicated UTI. Would transition to oral on discharge. (2) Elevated INR: Current visit: Yes Status: Resolved Resume coumadin today. Not a candidate for a DOAC due to weight. (3) Hematuria: Current visit: Yes Status: Acute In setting of nephrolithiasis/cystitis, Resolved S/p Vit K/FFP. (4) Hydronephrosis: Current visit: Yes Status: Acute On flomax. Voiding trial tonight. Will need outpatient urology follow up. (5) Nephrolithiasis: Current visit: Yes Status: Chronic Evidently the obstructive stone initially seen on CT is now in the bladder - confirmed with radiology. Follow up with urology as outpatient (6) Chronic a-fib: Current visit: Yes Status: Acute Rate controlled. Resume anticoagulation (7) CHF (congestive heart failure): Current visit: No Status: Chronic IV lasix today - monitor I/O's. (8) Discharge planning issues: Current visit: Yes Status: Acute Can likely be discharged home tomorrow. Full code. (9) DVT prophylaxis: Current visit: Yes Status: Acute on SQ heparin while INR subtherapeutic. Coumadin is being resumed today. Subjective Interval history since last seen: Doing much better today. States pain in L groin is significantly better. Denies any dizziness, chest pain, shortness of breath, nausea, vomiting. Has been able to ambulate in the hallway without an issue. Hematuria has completely resolved. He is very happy with the care he has received here. Exam Narrative Exam Narrative: General: Very pleasant obese male, laying comfortably in bed, very upbeat HEENT: EOMI, MMM Heart: irregularly irregular rhythm, no murmurs Lungs: CTAB Abdomen: soft, nontender, nondistended, obese : clear-yellow urine in griffin catheter Extremities: +1 BLE edema, symmetric/no clubbing/no cyanosis of BLE's. Objective Objective Clinical Data: Abnormal lab results 09/12/18 09/12/18 09/12/18 Range/Units 07:07 07:07 07:07 RBC 3.85 L (4.50-6.00) m/cumm Hgb 11.0 L (13.5-17.5) g/dL Hct 35.0 L (40.0-50.0) % MCHC 31.4 L (32.0-36.0) g/dL RDW 15.5 H (11.8-14.1) % PT 13.8 H (9.3-10.8) sec BUN 23 H (7-18) mg/dL Creatinine 1.69 H (0.70-1.30) mg/dL Glucose 179 H (70-100) mg/dL Calcium 10.2 H (8.5-10.1) mg/dL Vital Signs Temperature 37.3 C 09/12/18 16:18 Temperature Source Tympanic 09/12/18 16:18 Pulse 87 09/12/18 16:18 Pulse Rhythm Irregular 09/12/18 16:00 Respiratory Rate 20 09/12/18 16:18 Respiratory Effort Incrsd Work of Breathing 09/12/18 16:00 Respiratory Depth Normal 09/12/18 16:00 Respiratory Pattern Normal 09/12/18 16:00 Blood Pressure 148/77 H 09/12/18 16:18 Pulse Oximetry 94 L 09/12/18 16:18 Oxygen Delivery Method Room Air 09/12/18 16:18 Oxygen Flow Rate 0 09/12/18 16:18 Pain Level 0 09/12/18 09:20 Comment 09/09/18 13:30 Intake & Output 09/11/18 09/12/18 09/12/18 23:59 11:59 23:59 Intake Total 1840.000 / 1840.000 290 / 290 250 / 250 Output Total 1750 / 1750 900 / 900 500 / 500 Balance 90.000 / 90.000 -610 / -610 -250 / -250 Intake: IV 1050.000 / 1050.000 50 / 50 Oral 790 / 790 240 / 240 250 / 250 Output: Urine 1750 / 1750 900 / 900 500 / 500 Other: Urine Color Brown Yellow Yellow Urine Appearance Clear Clear Clear Strain Urine Result Negative-No Stones/Gravel Negative-No Stones/Gravel Comment light brown same strained no evidence of stones seen at this time no stones or gravel Laboratory Results WBC 6.53 k/cumm (4.4-10.8) 09/12/18 07:07 RBC 3.85 m/cumm (4.50-6.00) L 09/12/18 07:07 Hgb 11.0 g/dL (13.5-17.5) L 09/12/18 07:07 Hct 35.0 % (40.0-50.0) L 09/12/18 07:07 MCV 90.9 fL (80-95) 09/12/18 07:07 MCH 28.6 pg (27.0-33.0) 09/12/18 07:07 MCHC 31.4 g/dL (32.0-36.0) L 09/12/18 07:07 RDW 15.5 % (11.8-14.1) H 09/12/18 07:07 Plt Count 213 x1000/uL (130-400) 09/12/18 07:07 MPV 9.2 fL (8.0-11.0) 09/12/18 07:07 Immature Gran % 0.3 09/12/18 07:07 Neutrophils % 63.3 09/12/18 07:07 Lymphocytes % 22.2 09/12/18 07:07 Monocytes % 10.6 09/12/18 07:07 Eosinophils % 3.1 09/12/18 07:07 Basophils % 0.5 09/12/18 07:07 Absolute Neutrophils 4.14 k/cumm (1.2-6.7) 09/12/18 07:07 Absolute Lymphocytes 1.45 k/cumm (1.2-3.4) 09/12/18 07:07 Absolute Monocytes 0.69 k/cumm (0.11-0.7) 09/12/18 07:07 Absolute Eosinophils 0.20 k/cumm (0.0-0.7) 09/12/18 07:07 Absolute Basophils 0.03 k/cumm (0.0-0.2) 09/12/18 07:07 PT 13.8 sec (9.3-10.8) H 09/12/18 07:07 INR 1.4 (1.0-3.5) 09/12/18 07:07 Sodium 139 mmol/L (136-145) 09/12/18 07:07 Potassium 4.1 mmol/L (3.5-5.1) 09/12/18 07:07 Chloride 105 mmol/L (98-107) 09/12/18 07:07 Carbon Dioxide 24.2 mmol/L (21.0-32.0) 09/12/18 07:07 Anion Gap 9.8 mmol/L (3-11) 09/12/18 07:07 BUN 23 mg/dL (7-18) H 09/12/18 07:07 Creatinine 1.69 mg/dL (0.70-1.30) H 09/12/18 07:07 Estimated GFR/1.73 m2 39.34 (mL/min/1.73m2) 09/12/18 07:07 Glucose 179 mg/dL (70-100) H 09/12/18 07:07 Calcium 10.2 mg/dL (8.5-10.1) H 09/12/18 07:07 Magnesium 1.9 mg/dL (1.8-2.4) 09/12/18 07:07 Total Bilirubin 0.8 mg/dL (0.2-1.0) 09/09/18 14:44 AST 23 U/L (15-37) 09/09/18 14:44 ALT 24 U/L (12-78) 09/09/18 14:44 Alkaline Phosphatase 128 U/L (46-116) H 09/09/18 14:44 Total Protein 7.7 g/dL (6.4-8.2) 09/09/18 14:44 Albumin 2.9 g/dL (3.4-5.0) L 09/09/18 14:44 Lipase 242 U/L (73-393) 09/09/18 14:44 Urine Color Brown (Yellow) 09/09/18 14:37 Urine Clarity Cloudy 09/09/18 14:37 Urine pH 6.0 (5-8) 09/09/18 14:37 Ur Specific [place] 1.020 (1.005-1.025) 09/09/18 14:37 Urine Protein 100 mg/dL (Negative) H 09/09/18 14:37 Urine Ketones Trace mg/dL (Negative) H 09/09/18 14:37 Urine Blood Large (Negative) H 09/09/18 14:37 Urine Nitrite Negative (Negative) 09/09/18 14:37 Urine Bilirubin Negative (Negative) 09/09/18 14:37 Urine Urobilinogen 0.2 EU/dL (Up TO 0.2) 09/09/18 14:37 Ur Leukocyte Esterase Large (Negative) H 09/09/18 14:37 Urine RBC Not Applicable 09/09/18 14:37 Urine WBC >50 HPF (0-5) 09/09/18 14:37 Ur Epithelial Cells Not Applicable 09/09/18 14:37 Urine Crystals Not Applicable 09/09/18 14:37 Urine Bacteria Not Applicable 09/09/18 14:37 Urine Mucus Not Applicable 09/09/18 14:37 Ur Culture Indicated? Yes 09/09/18 14:37 Urine Glucose Negative mg/dL (Negative) 09/09/18 14:37 Patient ABO/Rh O Negative 09/10/18 07:50
[2018-09-12] MEDS: Furosemide 20 MG/2 ML VIAL IVP (19:14)
[2018-09-12] MEDS: Warfarin 5 MG TAB PO (19:16)
[2018-09-12] MEDS: Pravastatin 40 MG TAB PO (19:16)
[2018-09-12 23:17] VITALS: BP 121/79; PULSE 66; RESP 18; TEMP 37.6; O2SAT 96
[2018-09-13] MEDS: Heparin 5,000 UNITS/ML VIAL 5000 UNITS SC ×3 (01:42→17:34)
[2018-09-13] MEDS: Normal Saline Flush 10 ML SYR IVP ×4 (01:56→20:16)
[2018-09-13] MEDS: MORPHine 10 MG/ML VIAL IVP ×7 (01:56→20:15)
[2018-09-13 07:15] VITALS: BP 126/83; PULSE 66; RESP 24; TEMP 36.9; O2SAT 95
[2018-09-13 07:42] LABS: Abs Immature Grans 0.01 k/cumm (0.0-0.09); Absolute Basophil Count 0.03 k/cumm (0.0-0.2); Absolute Monocyte Count 0.71 k/cumm (0.11-0.7); Absolute Neutrophil Count 3.67 k/cumm (1.2-6.7); Basophils % 0.5; Eosinophils % 3.4; HCT 31.7 % (40.0-50.0); HGB 9.9 g/dL (13.5-17.5); Immature Grans % 0.2; Mean Corp. HGB Concentration 31.2 g/dL (32.0-36.0); Mean Corpuscular Hemoglobin 28.4 pg (27.0-33.0); Mean Corpuscular Volume 91.1 fL (80-95); Mean Platelet Volume 9.2 fL (8.0-11.0); Neutrophils % 61.9; Platelet Count 189 x1000/uL (130-400); RBC 3.48 m/cumm (4.50-6.00); RBC Distribution Width 15.5 % (11.8-14.1); White Blood Cell Count 5.92 k/cumm (4.4-10.8)
[2018-09-13 07:50] LABS: INR 1.5 (1.0-3.5); Prothrombin Time 14.5 sec (9.3-10.8)
[2018-09-13 07:51] LABS: Anion Gap 8.8 mmol/L (3-11); BUN 23 mg/dL (7-18); CO2 24.2 mmol/L (21.0-32.0); CREATININE 1.77 mg/dL (0.70-1.30); Calcium 9.7 mg/dL (8.5-10.1); Chloride 106 mmol/L (98-107); Glucose 216 mg/dL (70-100); Magnesium 1.8 mg/dL (1.8-2.4); Sodium 139 mmol/L (136-145)
[2018-09-13] MEDS: amLODIPine 5 MG TAB PO (07:58)
[2018-09-13] MEDS: Omeprazole 20 MG CAPCR PO (07:58)
[2018-09-13] MEDS: Metoprolol 50 MG TAB PO ×2 (07:58→20:15)
[2018-09-13] MEDS: Insulin Aspart 300 UNITS/3 ML PEN SC ×3 (08:05→17:34)
[2018-09-13] MEDS: Magnesium Oxide 400 MG TAB PO (08:37)
[2018-09-13 10:05] VITALS: O2SAT 96
--- NOTE | 2018-09-13 11:01 | PDOC.CMPRO ---
- If Service Date Differs Date of service: 09/13/18 Time of Service: 11:01 Care Management Progress Note S/O: CM met with Sav this morning, whom was sitting up in his chair. Sav states that he did not have a good night, as he had pain issues. Sav discussed his concerns with receiving pain medications in a timely manner, which CECI Camejo, is aware of. CM spoke with CECI Camejo, and have requested that CECI Denny M/S Transmitter Chief, meet with Sav in regards to his concerns. Sav states that he felt better after our conversation, and is hopeful that he is able to get some sleep this evening. A:Sav is a 78 year old male admitted with UTI P:Patient will return home when medically ready for discharge home when medically ready with his spouse via private car. CM to continue to provide support ongoing discharge planning, education and disposition to patient, family, and care team.
--- NOTE | 2018-09-13 11:36 | CMPROGNOTE_ITS ---
- If Service Date Differs Date of service: 09/13/18 Time of Service: 11:01 Care Management Progress Note S/O: CM met with Sav this morning, whom was sitting up in his chair. Sav states that he did not have a good night, as he had pain issues. Sav discussed his concerns with receiving pain medications in a timely manner, which CECI Camejo, is aware of. CM spoke with CECI Camejo, and have requested that CECI Denny M/S [employer] Assistant Principal, meet with Sav in regards to his concerns. Sav states that he felt better after our conversation, and is hopeful that he is able to get some sleep this evening. A:Sav is a 78 year old male admitted with UTI P:Patient will return home when medically ready for discharge home when medically ready with his spouse via private car. CM to continue to provide support ongoing discharge planning, education and disposition to patient, family , and care team.
--- NOTE | 2018-09-13 13:06 | PT.INTREAT ---
Date of service: 09/13/18 Time of Service: 09:00 PT Notes Inpatient Physical Therapy Treatment Note Date: 09/13/18 PRECAUTIONS: Standard SUBJECTIVE: Declined stair ambulation. Indicated he knows how to do stairs and does not need to do them today. Willing to ambulate and do some chair exercises. OBJECTIVE: PAIN: Complained of back pain with attempting to sit back in his chair after ambulation. BED MOBILITY/TRANSFERS Sit-stand: SBA Stand-sit: SBA GAIT Assistive Device:FWW Weight bearing: Full Assist: SBA Distance: 200ft THEREX: Performed 20 reps of ankle pumps and LAQs while in seated position. STAIRS: Refused today. Discussed performance of these tomorrow to show he is strong enough to do them before being DC'ed from hospital. ASSESSMENT: Tolerated ambulation very well despite not agreeing to do stairs. PLAN: Continue to focus on improved mobility and function with ADLs for preparation for DC to home. TREATMENT CODE/TIME: STEWART x 2 (30 minutes), 9:00am
--- NOTE | 2018-09-13 14:18 | W.PM.PROGNOT ---
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 Consider change to PO Levofloxacin, with a planned 14 day course of antibiotic therapy for complicated UTI. (2) Hydronephrosis: Current visit: Yes Status: Acute Likely in setting of BPH and obstructive uropathy. Continue on a-geraldine. Underwent voiding trial this morning without significant post-void residual. Will need outpatient urology follow up - known at [facility]. (3) Elevated INR: Current visit: Yes Status: Resolved Significantly elevated INR at time of admission, with initial value of 9.6. S/p Vitamin K. Resumed coumadin 09/12/2017. Not a candidate for a DOAC due to weight. (4) Hematuria: Current visit: Yes Status: Acute In setting of nephrolithiasis/cystitis with significantly elevated INR - Resolved S/p Vit K/FFP. (5) Nephrolithiasis: Current visit: Yes Status: Chronic Initially thought obstructive stone in bladder by repeat imaging - read apparently confirmed with radiology. Follow up with urology as outpatient. (6) Chronic a-fib: Current visit: Yes Status: Chronic Rate controlled on BB Therapy. Resumed anticoagulation - monitor daily INR. (7) CHF (congestive heart failure): Current visit: No Status: Chronic Currently holding Oral lasix, but patient has received IV. Acute on CKD, appears improved. Consider reinitiation of oral furosemide tomorrow - monitor daily weights closely. (8) Discharge planning issues: Current visit: Yes Status: Acute Can likely be discharged home tomorrow. Full code. (9) Diabetes mellitus type 2 in obese: Current visit: No Status: Chronic Holding metformin, which may not be ideal for patient given CKD. Current blood sugars in the 200's. Will initiate ISS. (10) DVT prophylaxis: Current visit: Yes Status: Acute on SQ heparin while INR subtherapeutic. Subjective Interval history since last seen: 78-year-old patient with a prior history of BPH and urinary retention, nephrolithiasis, Afib, and CHF admitted from [facility] Emergency Department on 09/09/2018 with evidence of UTI. Mr. Winkler presented to the Emergency Department with several days of left lower quadrant pain and gross hematuria, with initial evaluation showing a 9 mm stone at the UV junction along with gas in the ureter - however a repeat CT in the supine position showed the stone to be in fact in the bladder and not the ureter, and gas was noted in the wall of the bladder, indicating diagnosis of emphysematous cystitis. Recommendtion was made by Urology at [facility] for medical management, including antibiotics and [place] catheterization. Patient was was admitted for further evaluation and treatment. The patient has remained on antibiotic therapy with evidence of Klebsiella by culture. Underwent void trial this morning, and had 50 cc's of post-void residual by bladder scan. He is feeling well subjectively. Hematuria has resolved. No overnight events reported. Remains afebrile. Exam Narrative Exam Narrative: General: Sitting up in bed, NAD noted. Appears comfortable. Neck: Supple CV: irregularly irregular, Not tachycardic. No overt murmurs Pulmonary: CTAB without crackles, rhonchi, or wheezing Abdomen: + Bowel Sounds, soft, nontender, nondistended, obese in contour Extremities: +1-2 B/l LE edema, symmetric Objective Objective Clinical Data: Abnormal lab results 09/13/18 09/13/18 09/13/18 Range/Units 06:15 06:15 06:15 RBC 3.48 L (4.50-6.00) m/cumm Hgb 9.9 L (13.5-17.5) g/dL Hct 31.7 L (40.0-50.0) % MCHC 31.2 L (32.0-36.0) g/dL RDW 15.5 H (11.8-14.1) % Absolute Monocytes 0.71 H (0.11-0.7) k/cumm PT 14.5 H (9.3-10.8) sec BUN 23 H (7-18) mg/dL Creatinine 1.77 H (0.70-1.30) mg/dL Glucose 216 H (70-100) mg/dL Vital Signs Temperature 36.9 C 09/13/18 07:15 Temperature Source Tympanic 09/13/18 07:15 Pulse 66 09/13/18 07:15 Pulse Rhythm Regular 09/13/18 13:08 Respiratory Rate 24 09/13/18 07:15 Respiratory Effort 09/13/18 13:08 Respiratory Depth Normal 09/13/18 13:08 Respiratory Pattern Normal 09/13/18 13:08 Blood Pressure 126/83 09/13/18 07:15 Pulse Oximetry 95 09/13/18 07:15 Oxygen Delivery Method Room Air 09/13/18 07:15 Oxygen Flow Rate 0 09/13/18 07:15 Pain Level 4 09/13/18 12:39 Comment 09/09/18 13:30 Intake & Output 09/12/18 09/13/18 09/13/18 23:59 11:59 23:59 Intake Total 250 / 250 280 / 280 Output Total 2100 / 2100 750 / 750 180 / 180 Balance -1850 / -1850 -750 / -750 100 / 100 Intake: IV 30 / 30 Oral 250 / 250 250 / 250 Output: Urine 2100 / 2100 750 / 750 180 / 180 Other: Urine Color Yellow Pale Dark [place] Yellow Urine Appearance Clear Clear Clear Urine Odor Strong Strain Urine Result Negative-No Stones/Gravel Comment no stones Voiding Methods Urinal Laboratory Results WBC 5.92 k/cumm (4.4-10.8) 09/13/18 06:15 RBC 3.48 m/cumm (4.50-6.00) L 09/13/18 06:15 Hgb 9.9 g/dL (13.5-17.5) L 09/13/18 06:15 Hct 31.7 % (40.0-50.0) L 09/13/18 06:15 MCV 91.1 fL (80-95) 09/13/18 06:15 MCH 28.4 pg (27.0-33.0) 09/13/18 06:15 MCHC 31.2 g/dL (32.0-36.0) L 09/13/18 06:15 RDW 15.5 % (11.8-14.1) H 09/13/18 06:15 Plt Count 189 x1000/uL (130-400) 09/13/18 06:15 MPV 9.2 fL (8.0-11.0) 09/13/18 06:15 Immature Gran % 0.2 09/13/18 06:15 Neutrophils % 61.9 09/13/18 06:15 Lymphocytes % 22.0 09/13/18 06:15 Monocytes % 12.0 09/13/18 06:15 Eosinophils % 3.4 09/13/18 06:15 Basophils % 0.5 09/13/18 06:15 Absolute Neutrophils 3.67 k/cumm (1.2-6.7) 09/13/18 06:15 Absolute Lymphocytes 1.30 k/cumm (1.2-3.4) 09/13/18 06:15 Absolute Monocytes 0.71 k/cumm (0.11-0.7) H 09/13/18 06:15 Absolute Eosinophils 0.20 k/cumm (0.0-0.7) 09/13/18 06:15 Absolute Basophils 0.03 k/cumm (0.0-0.2) 09/13/18 06:15 PT 14.5 sec (9.3-10.8) H 09/13/18 06:15 INR 1.5 (1.0-3.5) 09/13/18 06:15 Sodium 139 mmol/L (136-145) 09/13/18 06:15 Potassium 4.0 mmol/L (3.5-5.1) 09/13/18 06:15 Chloride 106 mmol/L (98-107) 09/13/18 06:15 Carbon Dioxide 24.2 mmol/L (21.0-32.0) 09/13/18 06:15 Anion Gap 8.8 mmol/L (3-11) 09/13/18 06:15 BUN 23 mg/dL (7-18) H 09/13/18 06:15 Creatinine 1.77 mg/dL (0.70-1.30) H 09/13/18 06:15 Estimated GFR/1.73 m2 37.30 (mL/min/1.73m2) 09/13/18 06:15 Glucose 216 mg/dL (70-100) H 09/13/18 06:15 Calcium 9.7 mg/dL (8.5-10.1) 09/13/18 06:15 Magnesium 1.8 mg/dL (1.8-2.4) 09/13/18 06:15 Total Bilirubin 0.8 mg/dL (0.2-1.0) 09/09/18 14:44 AST 23 U/L (15-37) 09/09/18 14:44 ALT 24 U/L (12-78) 09/09/18 14:44 Alkaline Phosphatase 128 U/L (46-116) H 09/09/18 14:44 Total Protein 7.7 g/dL (6.4-8.2) 09/09/18 14:44 Albumin 2.9 g/dL (3.4-5.0) L 09/09/18 14:44 Lipase 242 U/L (73-393) 09/09/18 14:44 Urine Color Brown (Yellow) 09/09/18 14:37 Urine Clarity Cloudy 09/09/18 14:37 Urine pH 6.0 (5-8) 09/09/18 14:37 Ur Specific [place] 1.020 (1.005-1.025) 09/09/18 14:37 Urine Protein 100 mg/dL (Negative) H 09/09/18 14:37 Urine Ketones Trace mg/dL (Negative) H 09/09/18 14:37 Urine Blood Large (Negative) H 09/09/18 14:37 Urine Nitrite Negative (Negative) 09/09/18 14:37 Urine Bilirubin Negative (Negative) 09/09/18 14:37 Urine Urobilinogen 0.2 EU/dL (Up TO 0.2) 09/09/18 14:37 Ur Leukocyte Esterase Large (Negative) H 09/09/18 14:37 Urine RBC Not Applicable 09/09/18 14:37 Urine WBC >50 HPF (0-5) 09/09/18 14:37 Ur Epithelial Cells Not Applicable 09/09/18 14:37 Urine Crystals Not Applicable 09/09/18 14:37 Urine Bacteria Not Applicable 09/09/18 14:37 Urine Mucus Not Applicable 09/09/18 14:37 Ur Culture Indicated? Yes 09/09/18 14:37 Urine Glucose Negative mg/dL (Negative) 09/09/18 14:37 Patient ABO/Rh O Negative 09/10/18 07:50
--- NOTE | 2018-09-13 14:27 | PGE_ITS ---
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 Consider change to PO Levofloxacin, with a planned 14 day course of antibiotic therapy for complicated UTI. (2) Hydronephrosis: Current visit: Yes Status: Acute Likely in setting of BPH and obstructive uropathy. Continue on a-geraldine. Underwent voiding trial this morning without significant post-void residual. Will need outpatient urology follow up - known at [facility]. (3) Elevated INR: Current visit: Yes Status: Resolved Significantly elevated INR at time of admission, with initial value of 9.6. S/p Vitamin K. Resumed coumadin 09/12/2017. Not a candidate for a DOAC due to weight. (4) Hematuria: Current visit: Yes Status: Acute In setting of nephrolithiasis/cystitis with significantly elevated INR - Resolved S/p Vit K/FFP. (5) Nephrolithiasis: Current visit: Yes Status: Chronic Initially thought obstructive stone in bladder by repeat imaging - read apparently confirmed with radiology. Follow up with urology as outpatient. (6) Chronic a-fib: Current visit: Yes Status: Chronic Rate controlled on BB Therapy. Resumed anticoagulation - monitor daily INR. (7) CHF (congestive heart failure): Current visit: No Status: Chronic Currently holding Oral lasix, but patient has received IV. Acute on CKD, appears improved. Consider reinitiation of oral furosemide tomorrow - monitor daily weights closely. (8) Discharge planning issues: Current visit: Yes Status: Acute Can likely be discharged home tomorrow. Full code. (9) Diabetes mellitus type 2 in obese: Current visit: No Status: Chronic Holding metformin, which may not be ideal for patient given CKD. Current blood sugars in the 200's. Will initiate ISS. (10) DVT prophylaxis: Current visit: Yes Status: Acute on SQ heparin while INR subtherapeutic. Subjective Interval history since last seen: 78-year-old patient with a prior history of BPH and urinary retention, nephrolithiasis, Afib, and CHF admitted from [facility] Emergency Department on 09/09/2018 with evidence of UTI. Mr. Winkler presented to the Emergency Department with several days of left lower quadrant pain and gross hematuria, with initial evaluation showing a 9 mm stone at the UV junction along with gas in the ureter - however a repeat CT in the supine position showed the stone to be in fact in the bladder and not the ureter , and gas was noted in the wall of the bladder, indicating diagnosis of emphysematous cystitis. Recommendtion was made by Urology at [facility] for medical management, including antibiotics and Knox catheterization. Patient was was admitted for further evaluation and treatment. The patient has remained on antibiotic therapy with evidence of Klebsiella by culture. Underwent void trial this morning, and had 50 cc's of post-void residual by bladder scan. He is feeling well subjectively. Hematuria has resolved. No overnight events reported. Remains afebrile. Exam Narrative Exam Narrative: General: Sitting up in bed, NAD noted. Appears comfortable. Neck: Supple CV: irregularly irregular, Not tachycardic. No overt murmurs Pulmonary: CTAB without crackles, rhonchi, or wheezing Abdomen: + Bowel Sounds, soft, nontender, nondistended, obese in contour Extremities: +1-2 B/l LE edema, symmetric Objective Objective Clinical Data: Abnormal lab results 09/13/18 09/13/18 09/13/18 Range/Units 06:15 06:15 06:15 RBC 3.48 L (4.50-6.00) m/cumm Hgb 9.9 L (13.5-17.5) g/dL Hct 31.7 L (40.0-50.0) % MCHC 31.2 L (32.0-36.0) g/dL RDW 15.5 H (11.8-14.1) % Absolute Monocytes 0.71 H (0.11-0.7) k/cumm PT 14.5 H (9.3-10.8) sec BUN 23 H (7-18) mg/dL Creatinine 1.77 H (0.70-1.30) mg/dL Glucose 216 H (70-100) mg/dL Vital Signs Temperature 36.9 C 09/13/18 07:15 Temperature Source Tympanic 09/13/18 07:15 Pulse 66 09/13/18 07:15 Pulse Rhythm Regular 09/13/18 13:08 Respiratory Rate 24 09/13/18 07:15 Respiratory Effort 09/13/18 13:08 Respiratory Depth Normal 09/13/18 13:08 Respiratory Pattern Normal 09/13/18 13:08 Blood Pressure 126/83 09/13/18 07:15 Pulse Oximetry 95 09/13/18 07:15 Oxygen Delivery Method Room Air 09/13/18 07:15 Oxygen Flow Rate 0 09/13/18 07:15 Pain Level 4 09/13/18 12:39 Comment 09/09/18 13:30 Intake & Output 09/12/18 09/13/18 09/13/18 23:59 11:59 23:59 Intake Total 250 / 250 280 / 280 Output Total 2100 / 2100 750 / 750 180 / 180 Balance -1850 / -1850 -750 / -750 100 / 100 Intake: IV 30 / 30 Oral 250 / 250 250 / 250 Output: Urine 2100 / 2100 750 / 750 180 / 180 Other: Urine Color Yellow Pale Dark Hui Yellow Urine Appearance Clear Clear Clear Urine Odor Strong Strain Urine Result Negative-No Stones/Gravel Comment no stones Voiding Methods Urinal Laboratory Results WBC 5.92 k/cumm (4.4-10.8) 09/13/18 06:15 RBC 3.48 m/cumm (4.50-6.00) L 09/13/18 06:15 Hgb 9.9 g/dL (13.5-17.5) L 09/13/18 06:15 Hct 31.7 % (40.0-50.0) L 09/13/18 06:15 MCV 91.1 fL (80-95) 09/13/18 06:15 MCH 28.4 pg (27.0-33.0) 09/13/18 06:15 MCHC 31.2 g/dL (32.0-36.0) L 09/13/18 06:15 RDW 15.5 % (11.8-14.1) H 09/13/18 06:15 Plt Count 189 x1000/uL (130-400) 09/13/18 06:15 MPV 9.2 fL (8.0-11.0) 09/13/18 06:15 Immature Gran % 0.2 09/13/18 06:15 Neutrophils % 61.9 09/13/18 06:15 Lymphocytes % 22.0 09/13/18 06:15 Monocytes % 12.0 09/13/18 06:15 Eosinophils % 3.4 09/13/18 06:15 Basophils % 0.5 09/13/18 06:15 Absolute Neutrophils 3.67 k/cumm (1.2-6.7) 09/13/18 06:15 Absolute Lymphocytes 1.30 k/cumm (1.2-3.4) 09/13/18 06:15 Absolute Monocytes 0.71 k/cumm (0.11-0.7) H 09/13/18 06:15 Absolute Eosinophils 0.20 k/cumm (0.0-0.7) 09/13/18 06:15 Absolute Basophils 0.03 k/cumm (0.0-0.2) 09/13/18 06:15 PT 14.5 sec (9.3-10.8) H 09/13/18 06:15 INR 1.5 (1.0-3.5) 09/13/18 06:15 Sodium 139 mmol/L (136-145) 09/13/18 06:15 Potassium 4.0 mmol/L (3.5-5.1) 09/13/18 06:15 Chloride 106 mmol/L (98-107) 09/13/18 06:15 Carbon Dioxide 24.2 mmol/L (21.0-32.0) 09/13/18 06:15 Anion Gap 8.8 mmol/L (3-11) 09/13/18 06:15 BUN 23 mg/dL (7-18) H 09/13/18 06:15 Creatinine 1.77 mg/dL (0.70-1.30) H 09/13/18 06:15 Estimated GFR/1.73 m2 37.30 (mL/min/1.73m2) 09/13/18 06:15 Glucose 216 mg/dL (70-100) H 09/13/18 06:15 Calcium 9.7 mg/dL (8.5-10.1) 09/13/18 06:15 Magnesium 1.8 mg/dL (1.8-2.4) 09/13/18 06:15 Total Bilirubin 0.8 mg/dL (0.2-1.0) 09/09/18 14:44 AST 23 U/L (15-37) 09/09/18 14:44 ALT 24 U/L (12-78) 09/09/18 14:44 Alkaline Phosphatase 128 U/L (46-116) H 09/09/18 14:44 Total Protein 7.7 g/dL (6.4-8.2) 09/09/18 14:44 Albumin 2.9 g/dL (3.4-5.0) L 09/09/18 14:44 Lipase 242 U/L (73-393) 09/09/18 14:44 Urine Color Brown (Yellow) 09/09/18 14:37 Urine Clarity Cloudy 09/09/18 14:37 Urine pH 6.0 (5-8) 09/09/18 14:37 Ur Specific [place] 1.020 (1.005-1.025) 09/09/18 14:37 Urine Protein 100 mg/dL (Negative) H 09/09/18 14:37 Urine Ketones Trace mg/dL (Negative) H 09/09/18 14:37 Urine Blood Large (Negative) H 09/09/18 14:37 Urine Nitrite Negative (Negative) 09/09/18 14:37 Urine Bilirubin Negative (Negative) 09/09/18 14:37 Urine Urobilinogen 0.2 EU/dL (Up TO 0.2) 09/09/18 14:37 Ur Leukocyte Esterase Large (Negative) H 09/09/18 14:37 Urine RBC Not Applicable 09/09/18 14:37 Urine WBC >50 HPF (0-5) 09/09/18 14:37 Ur Epithelial Cells Not Applicable 09/09/18 14:37 Urine Crystals Not Applicable 09/09/18 14:37 Urine Bacteria Not Applicable 09/09/18 14:37 Urine Mucus Not Applicable 09/09/18 14:37 Ur Culture Indicated? Yes 09/09/18 14:37 Urine Glucose Negative mg/dL (Negative) 09/09/18 14:37 Patient ABO/Rh O Negative 09/10/18 07:50
[2018-09-13 15:37] VITALS: BP 109/72; PULSE 68; RESP 20; TEMP 37; O2SAT 95
[2018-09-13] MEDS: Acetaminophen 325 MG TAB 650 MG PO ×3 (16:29→23:35)
[2018-09-13] MEDS: Tamsulosin 0.4 MG CAPCR PO (17:34)
[2018-09-13] MEDS: Normal Saline 500 ML IV (20:00)
[2018-09-13] MEDS: Warfarin 5 MG TAB PO (20:15)
[2018-09-13] MEDS: Pravastatin 40 MG TAB PO (20:16)
[2018-09-13 23:29] VITALS: BP 107/72; PULSE 63; RESP 18; TEMP 36.1; O2SAT 96
[2018-09-14] MEDS: Heparin 5,000 UNITS/ML VIAL 5000 UNITS SC ×2 (01:14→09:57)
[2018-09-14] MEDS: MORPHine 10 MG/ML VIAL IVP ×3 (01:42→23:01)
[2018-09-14 01:44] VITALS: BP 109/72; PULSE 67; RESP 18; TEMP 36.5; O2SAT 96
[2018-09-14 04:08] VITALS: BP 125/82; PULSE 57; RESP 22; TEMP 36.4; O2SAT 95
[2018-09-14] MEDS: Acetaminophen 325 MG TAB 650 MG PO ×4 (04:15→19:36)
[2018-09-14 06:36] LABS: Abs Immature Grans 0.03 k/cumm (0.0-0.09); Absolute Basophil Count 0.03 k/cumm (0.0-0.2); Absolute Eosinophil Count 0.18 k/cumm (0.0-0.7); Absolute Lymphocyte Count 1.52 k/cumm (1.2-3.4); Absolute Neutrophil Count 3.79 k/cumm (1.2-6.7); Basophils % 0.5; Eosinophils % 2.9; HCT 32.1 % (40.0-50.0); Immature Grans % 0.5; Lymphocytes % 24.7; Mean Corp. HGB Concentration 31.2 g/dL (32.0-36.0); Mean Corpuscular Hemoglobin 28.4 pg (27.0-33.0); Mean Corpuscular Volume 91.2 fL (80-95); Mean Platelet Volume 9.2 fL (8.0-11.0); Monocytes % 9.8; Neutrophils % 61.6; Platelet Count 226 x1000/uL (130-400); RBC 3.52 m/cumm (4.50-6.00); RBC Distribution Width 15.4 % (11.8-14.1); White Blood Cell Count 6.15 k/cumm (4.4-10.8)
[2018-09-14 06:47] LABS: INR 1.8 (1.0-3.5); Prothrombin Time 16.8 sec (9.3-10.8)
[2018-09-14 06:54] LABS: Anion Gap 9.2 mmol/L (3-11); BUN 24 mg/dL (7-18); CO2 23.8 mmol/L (21.0-32.0); CREATININE 1.85 mg/dL (0.70-1.30); Calcium 9.9 mg/dL (8.5-10.1); Chloride 105 mmol/L (98-107); Estimated GFR 35.44 (mL/min/1.73m2); Glucose 188 mg/dL (70-100); Sodium 138 mmol/L (136-145)
[2018-09-14 07:25] VITALS: BP 126/86; PULSE 64; RESP 20; TEMP 36.4; O2SAT 97
[2018-09-14 07:35] VITALS: O2SAT 97
[2018-09-14] MEDS: Insulin Aspart 300 UNITS/3 ML PEN SC ×3 (08:40→17:04)
[2018-09-14] MEDS: amLODIPine 5 MG TAB PO (08:41)
[2018-09-14] MEDS: Omeprazole 20 MG CAPCR PO (08:41)
[2018-09-14] MEDS: Metoprolol 50 MG TAB PO ×2 (08:41→19:36)
[2018-09-14] MEDS: Docusate Sodium 100 MG CAP PO ×3 (10:20→19:36)
--- NOTE | 2018-09-14 12:18 | CMPROGNOTE_ITS ---
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 He is open to discussion, and states that he is appreciative of discussion with CM yesterday. Per morning meeting Sav will transition to PO antibiotics today and possibly be ready for DC tomorrow. Sav will have outpatient urology f/u at time of DC. A: 78 y/o male admitted 09/09/18 for UTI P: Patient will return home when medically ready for discharge home when medically ready with his spouse via private car. CM to continue to provide support ongoing discharge planning, education and disposition to patient, family , and care team.
[2018-09-14] MEDS: Polyethylene Glycol 3350 17 GM PACKET PO (12:46)
--- NOTE | 2018-09-14 13:25 | PT.INTREAT ---
Date of service: 09/14/18 Time of Service: 12:05 PT Notes Inpatient Physical Therapy Treatment Note Date: 09/14/18 PRECAUTIONS:Standard SUBJECTIVE: Already did ankle pumps and LAQs about 200 times this morning, but willing to take a walk in the [place]. Not willing to do stairs. OBJECTIVE: PAIN: Back pain with going sit to stand and stand to sit BED MOBILITY/TRANSFERS Up with nursing staff Sit-stand: SBA Stand-sit: S GAIT Assistive Device: FWW Weight bearing: Full Assist: SBA Distance: 200ft THEREX: Refused, as indicated in subjective part of note. Already exercised his legs on his own today. STAIRS:Refused, as he did yesterday. ASSESSMENT: Tolerated ambulation very well. PLAN: Continue to encourage strengthening of LEs and ambulation for improved functional mobility with ADLs. TREATMENT CODE/TIME: STEWART (15 minutes), 12:05-12:20
--- NOTE | 2018-09-14 15:04 | W.PM.PROGNOT ---
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 Consider change to PO Levofloxacin, with a planned 14 day course of antibiotic therapy for complicated UTI. (2) Hydronephrosis: Current visit: Yes Status: Acute Likely in setting of BPH and obstructive uropathy. Continue on a-geraldine. Underwent successful voiding trial yesterday morning without significant post-void residual. Will need outpatient urology follow up - known at [facility]. (3) Elevated INR: Current visit: Yes Status: Resolved Significantly elevated INR at time of admission, with initial value of 9.6. S/p Vitamin K. Resumed coumadin 09/12/2017. Not a candidate for a DOAC due to weight. Continue to monitor daily INR. (4) Hematuria: Current visit: Yes Status: Acute In setting of nephrolithiasis/cystitis with significantly elevated INR - Resolved S/p Vit K/FFP. (5) Nephrolithiasis: Current visit: Yes Status: Chronic Initially thought obstructive, stone in bladder by repeat imaging - read apparently confirmed with radiology. Follow up with urology as outpatient. (6) Chronic a-fib: Current visit: Yes Status: Chronic Rate controlled on BB Therapy. Resumed anticoagulation - monitor daily INR. (7) CHF (congestive heart failure): Current visit: No Status: Chronic Currently holding Oral lasix, but patient has received IV lasix previously. Acute on CKD, with current creatinine elevation likely chronic on basis of obstructive uropathy. Consider reinitiation of oral furosemide soon - monitor daily weights closely. (8) Diabetes mellitus type 2 in obese: Current visit: No Status: Chronic Holding metformin, which may not be ideal for patient given CKD. Current blood sugars in the 200's. Initiated ISS previously. (9) Constipation: Current visit: Yes Status: Acute Reported lack of bowel movement for a number of days without any abdominal discomfort or nausea. Passing flatus. Start standing Senna and Colace, one time administration of and then prn miralax, and reevaluate. (10) Discharge planning issues: Current visit: Yes Status: Acute Full code. (11) DVT prophylaxis: Current visit: Yes Status: Acute Discontinue SQ heparin as patient's INR is increasing and nearly therapeutic. Subjective Interval history since last seen: 78-year-old patient with a prior history of BPH and urinary retention, nephrolithiasis, Afib, and CHF admitted from [facility] Emergency Department on 09/09/2018 with evidence of UTI. Mr. Winkler presented to the Emergency Department with several days of left lower quadrant pain and gross hematuria, with initial evaluation showing a 9 mm stone at the UV junction along with gas in the ureter - however a repeat CT in the supine position showed the stone to be in fact in the bladder and not the ureter, and gas was noted in the wall of the bladder, indicating diagnosis of emphysematous cystitis. Recommendtion was made by Urology at [facility] for medical management, including antibiotics and Knox catheterization. Patient was was admitted for further evaluation and treatment. The patient has remained on antibiotic therapy with evidence of Klebsiella by culture. Underwent successful voiding trial yesterday,. He is feeling well subjectively. Hematuria has resolved. Patient's creatinine continues to be elevated but better than at time of admission. He is complaining of lack of bowel movement for a number of days. No overnight events reported. Remains afebrile. Exam Narrative Exam Narrative: General: Sitting up out of bed inc chair, NAD noted. Appears comfortable. Neck: Supple CV: irregularly irregular, Not tachycardic. No overt murmurs Pulmonary: CTAB without crackles, rhonchi, or wheezing Abdomen: + Bowel Sounds, soft, nontender, nondistended, obese in contour Extremities: +1-2 B/l LE edema, symmetric Objective Objective Clinical Data: Abnormal lab results 09/14/18 09/14/18 09/14/18 Range/Units 05:48 05:48 05:48 RBC 3.52 L (4.50-6.00) m/cumm Hgb 10.0 L (13.5-17.5) g/dL Hct 32.1 L (40.0-50.0) % MCHC 31.2 L (32.0-36.0) g/dL RDW 15.4 H (11.8-14.1) % PT 16.8 H (9.3-10.8) sec BUN 24 H (7-18) mg/dL Creatinine 1.85 H (0.70-1.30) mg/dL Glucose 188 H (70-100) mg/dL Vital Signs Temperature 36.4 C L 09/14/18 07:25 Temperature Source Tympanic 09/14/18 07:25 Pulse 64 09/14/18 07:25 Pulse Rhythm Regular 09/13/18 16:35 Respiratory Rate 20 09/14/18 07:25 Respiratory Effort Non-Labored 09/14/18 11:01 Respiratory Depth Normal 09/14/18 11:01 Respiratory Pattern Normal 09/14/18 11:01 Blood Pressure 126/86 09/14/18 07:25 Pulse Oximetry 97 09/14/18 07:35 Oxygen Delivery Method Room Air 09/14/18 07:35 Oxygen Flow Rate 0 09/14/18 07:35 Pain Level 2 09/14/18 11:17 Comment 09/09/18 13:30 Intake & Output 09/13/18 09/14/18 09/14/18 23:59 11:59 23:59 Intake Total 630.026 / 630.026 250 / 250 Output Total 680 / 680 1050 / 1050 Balance -49.974 / -49.974 -800 / -800 Intake: IV 80.026 / 80.026 Oral 550 / 550 250 / 250 Output: Urine 680 / 680 1050 / 1050 Other: Urine Color Yellow Yellow Urine Appearance Clear Clear Urine Odor None Normal Strain Urine Result Positive-Gravel Seen Comment very small grit looking materials noted Voiding Methods Urinal Urinal Laboratory Results WBC 6.15 k/cumm (4.4-10.8) 09/14/18 05:48 RBC 3.52 m/cumm (4.50-6.00) L 09/14/18 05:48 Hgb 10.0 g/dL (13.5-17.5) L 09/14/18 05:48 Hct 32.1 % (40.0-50.0) L 09/14/18 05:48 MCV 91.2 fL (80-95) 09/14/18 05:48 MCH 28.4 pg (27.0-33.0) 09/14/18 05:48 MCHC 31.2 g/dL (32.0-36.0) L 09/14/18 05:48 RDW 15.4 % (11.8-14.1) H 09/14/18 05:48 Plt Count 226 x1000/uL (130-400) 09/14/18 05:48 MPV 9.2 fL (8.0-11.0) 09/14/18 05:48 Immature Gran % 0.5 09/14/18 05:48 Neutrophils % 61.6 09/14/18 05:48 Lymphocytes % 24.7 09/14/18 05:48 Monocytes % 9.8 09/14/18 05:48 Eosinophils % 2.9 09/14/18 05:48 Basophils % 0.5 09/14/18 05:48 Absolute Neutrophils 3.79 k/cumm (1.2-6.7) 09/14/18 05:48 Absolute Lymphocytes 1.52 k/cumm (1.2-3.4) 09/14/18 05:48 Absolute Monocytes 0.60 k/cumm (0.11-0.7) 09/14/18 05:48 Absolute Eosinophils 0.18 k/cumm (0.0-0.7) 09/14/18 05:48 Absolute Basophils 0.03 k/cumm (0.0-0.2) 09/14/18 05:48 PT 16.8 sec (9.3-10.8) H 09/14/18 05:48 INR 1.8 (1.0-3.5) 09/14/18 05:48 Sodium 138 mmol/L (136-145) 09/14/18 05:48 Potassium 4.0 mmol/L (3.5-5.1) 09/14/18 05:48 Chloride 105 mmol/L (98-107) 09/14/18 05:48 Carbon Dioxide 23.8 mmol/L (21.0-32.0) 09/14/18 05:48 Anion Gap 9.2 mmol/L (3-11) 09/14/18 05:48 BUN 24 mg/dL (7-18) H 09/14/18 05:48 Creatinine 1.85 mg/dL (0.70-1.30) H 09/14/18 05:48 Estimated GFR/1.73 m2 35.44 (mL/min/1.73m2) 09/14/18 05:48 Glucose 188 mg/dL (70-100) H 09/14/18 05:48 Calcium 9.9 mg/dL (8.5-10.1) 09/14/18 05:48 Magnesium 1.8 mg/dL (1.8-2.4) 09/13/18 06:15 Total Bilirubin 0.8 mg/dL (0.2-1.0) 09/09/18 14:44 AST 23 U/L (15-37) 09/09/18 14:44 ALT 24 U/L (12-78) 09/09/18 14:44 Alkaline Phosphatase 128 U/L (46-116) H 09/09/18 14:44 Total Protein 7.7 g/dL (6.4-8.2) 09/09/18 14:44 Albumin 2.9 g/dL (3.4-5.0) L 09/09/18 14:44 Lipase 242 U/L (73-393) 09/09/18 14:44 Urine Color Brown (Yellow) 09/09/18 14:37 Urine Clarity Cloudy 09/09/18 14:37 Urine pH 6.0 (5-8) 09/09/18 14:37 Ur Specific [place] 1.020 (1.005-1.025) 09/09/18 14:37 Urine Protein 100 mg/dL (Negative) H 09/09/18 14:37 Urine Ketones Trace mg/dL (Negative) H 09/09/18 14:37 Urine Blood Large (Negative) H 09/09/18 14:37 Urine Nitrite Negative (Negative) 09/09/18 14:37 Urine Bilirubin Negative (Negative) 09/09/18 14:37 Urine Urobilinogen 0.2 EU/dL (Up TO 0.2) 09/09/18 14:37 Ur Leukocyte Esterase Large (Negative) H 09/09/18 14:37 Urine RBC Not Applicable 09/09/18 14:37 Urine WBC >50 HPF (0-5) 09/09/18 14:37 Ur Epithelial Cells Not Applicable 09/09/18 14:37 Urine Crystals Not Applicable 09/09/18 14:37 Urine Bacteria Not Applicable 09/09/18 14:37 Urine Mucus Not Applicable 09/09/18 14:37 Ur Culture Indicated? Yes 09/09/18 14:37 Urine Glucose Negative mg/dL (Negative) 09/09/18 14:37 Patient ABO/Rh O Negative 09/10/18 07:50
--- NOTE | 2018-09-14 15:13 | PGE_ITS ---
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 Consider change to PO Levofloxacin, with a planned 14 day course of antibiotic therapy for complicated UTI. (2) Hydronephrosis: Current visit: Yes Status: Acute Likely in setting of BPH and obstructive uropathy. Continue on a-geraldine. Underwent successful voiding trial yesterday morning without significant post- void residual. Will need outpatient urology follow up - known at [facility]. (3) Elevated INR: Current visit: Yes Status: Resolved Significantly elevated INR at time of admission, with initial value of 9.6. S/p Vitamin K. Resumed coumadin 09/12/2017. Not a candidate for a DOAC due to weight. Continue to monitor daily INR. (4) Hematuria: Current visit: Yes Status: Acute In setting of nephrolithiasis/cystitis with significantly elevated INR - Resolved S/p Vit K/FFP. (5) Nephrolithiasis: Current visit: Yes Status: Chronic Initially thought obstructive, stone in bladder by repeat imaging - read apparently confirmed with radiology. Follow up with urology as outpatient. (6) Chronic a-fib: Current visit: Yes Status: Chronic Rate controlled on BB Therapy. Resumed anticoagulation - monitor daily INR. (7) CHF (congestive heart failure): Current visit: No Status: Chronic Currently holding Oral lasix, but patient has received IV lasix previously. Acute on CKD, with current creatinine elevation likely chronic on basis of obstructive uropathy. Consider reinitiation of oral furosemide soon - monitor daily weights closely. (8) Diabetes mellitus type 2 in obese: Current visit: No Status: Chronic Holding metformin, which may not be ideal for patient given CKD. Current blood sugars in the 200's. Initiated ISS previously. (9) Constipation: Current visit: Yes Status: Acute Reported lack of bowel movement for a number of days without any abdominal discomfort or nausea. Passing flatus. Start standing Senna and Colace , one time administration of and then prn miralax, and reevaluate. (10) Discharge planning issues: Current visit: Yes Status: Acute Full code. (11) DVT prophylaxis: Current visit: Yes Status: Acute Discontinue SQ heparin as patient's INR is increasing and nearly therapeutic. Subjective Interval history since last seen: 78-year-old patient with a prior history of BPH and urinary retention, nephrolithiasis, Afib, and CHF admitted from [facility] Emergency Department on 09/09/2018 with evidence of UTI. Mr. Winkler presented to the Emergency Department with several days of left lower quadrant pain and gross hematuria, with initial evaluation showing a 9 mm stone at the UV junction along with gas in the ureter - however a repeat CT in the supine position showed the stone to be in fact in the bladder and not the ureter , and gas was noted in the wall of the bladder, indicating diagnosis of emphysematous cystitis. Recommendtion was made by Urology at [facility] for medical management, including antibiotics and [place] catheterization. Patient was was admitted for further evaluation and treatment. The patient has remained on antibiotic therapy with evidence of Klebsiella by culture. Underwent successful voiding trial yesterday,. He is feeling well subjectively. Hematuria has resolved. Patient's creatinine continues to be elevated but better than at time of admission. He is complaining of lack of bowel movement for a number of days. No overnight events reported. Remains afebrile. Exam Narrative Exam Narrative: General: Sitting up out of bed inc chair, NAD noted. Appears comfortable. Neck: Supple CV: irregularly irregular, Not tachycardic. No overt murmurs Pulmonary: CTAB without crackles, rhonchi, or wheezing Abdomen: + Bowel Sounds, soft, nontender, nondistended, obese in contour Extremities: +1-2 B/l LE edema, symmetric Objective Objective Clinical Data: Abnormal lab results 09/14/18 09/14/18 09/14/18 Range/Units 05:48 05:48 05:48 RBC 3.52 L (4.50-6.00) m/cumm Hgb 10.0 L (13.5-17.5) g/dL Hct 32.1 L (40.0-50.0) % MCHC 31.2 L (32.0-36.0) g/dL RDW 15.4 H (11.8-14.1) % PT 16.8 H (9.3-10.8) sec BUN 24 H (7-18) mg/dL Creatinine 1.85 H (0.70-1.30) mg/dL Glucose 188 H (70-100) mg/dL Vital Signs Temperature 36.4 C L 09/14/18 07:25 Temperature Source Tympanic 09/14/18 07:25 Pulse 64 09/14/18 07:25 Pulse Rhythm Regular 09/13/18 16:35 Respiratory Rate 20 09/14/18 07:25 Respiratory Effort Non-Labored 09/14/18 11:01 Respiratory Depth Normal 09/14/18 11:01 Respiratory Pattern Normal 09/14/18 11:01 Blood Pressure 126/86 09/14/18 07:25 Pulse Oximetry 97 09/14/18 07:35 Oxygen Delivery Method Room Air 09/14/18 07:35 Oxygen Flow Rate 0 09/14/18 07:35 Pain Level 2 09/14/18 11:17 Comment 09/09/18 13:30 Intake & Output 09/13/18 09/14/18 09/14/18 23:59 11:59 23:59 Intake Total 630.026 / 630.026 250 / 250 Output Total 680 / 680 1050 / 1050 Balance -49.974 / -49.974 -800 / -800 Intake: IV 80.026 / 80.026 Oral 550 / 550 250 / 250 Output: Urine 680 / 680 1050 / 1050 Other: Urine Color Yellow Yellow Urine Appearance Clear Clear Urine Odor None Normal Strain Urine Result Positive-Gravel Seen Comment very small grit looking materials noted Voiding Methods Urinal Urinal Laboratory Results WBC 6.15 k/cumm (4.4-10.8) 09/14/18 05:48 RBC 3.52 m/cumm (4.50-6.00) L 09/14/18 05:48 Hgb 10.0 g/dL (13.5-17.5) L 09/14/18 05:48 Hct 32.1 % (40.0-50.0) L 09/14/18 05:48 MCV 91.2 fL (80-95) 09/14/18 05:48 MCH 28.4 pg (27.0-33.0) 09/14/18 05:48 MCHC 31.2 g/dL (32.0-36.0) L 09/14/18 05:48 RDW 15.4 % (11.8-14.1) H 09/14/18 05:48 Plt Count 226 x1000/uL (130-400) 09/14/18 05:48 MPV 9.2 fL (8.0-11.0) 09/14/18 05:48 Immature Gran % 0.5 09/14/18 05:48 Neutrophils % 61.6 09/14/18 05:48 Lymphocytes % 24.7 09/14/18 05:48 Monocytes % 9.8 09/14/18 05:48 Eosinophils % 2.9 09/14/18 05:48 Basophils % 0.5 09/14/18 05:48 Absolute Neutrophils 3.79 k/cumm (1.2-6.7) 09/14/18 05:48 Absolute Lymphocytes 1.52 k/cumm (1.2-3.4) 09/14/18 05:48 Absolute Monocytes 0.60 k/cumm (0.11-0.7) 09/14/18 05:48 Absolute Eosinophils 0.18 k/cumm (0.0-0.7) 09/14/18 05:48 Absolute Basophils 0.03 k/cumm (0.0-0.2) 09/14/18 05:48 PT 16.8 sec (9.3-10.8) H 09/14/18 05:48 INR 1.8 (1.0-3.5) 09/14/18 05:48 Sodium 138 mmol/L (136-145) 09/14/18 05:48 Potassium 4.0 mmol/L (3.5-5.1) 09/14/18 05:48 Chloride 105 mmol/L (98-107) 09/14/18 05:48 Carbon Dioxide 23.8 mmol/L (21.0-32.0) 09/14/18 05:48 Anion Gap 9.2 mmol/L (3-11) 09/14/18 05:48 BUN 24 mg/dL (7-18) H 09/14/18 05:48 Creatinine 1.85 mg/dL (0.70-1.30) H 09/14/18 05:48 Estimated GFR/1.73 m2 35.44 (mL/min/1.73m2) 09/14/18 05:48 Glucose 188 mg/dL (70-100) H 09/14/18 05:48 Calcium 9.9 mg/dL (8.5-10.1) 09/14/18 05:48 Magnesium 1.8 mg/dL (1.8-2.4) 09/13/18 06:15 Total Bilirubin 0.8 mg/dL (0.2-1.0) 09/09/18 14:44 AST 23 U/L (15-37) 09/09/18 14:44 ALT 24 U/L (12-78) 09/09/18 14:44 Alkaline Phosphatase 128 U/L (46-116) H 09/09/18 14:44 Total Protein 7.7 g/dL (6.4-8.2) 09/09/18 14:44 Albumin 2.9 g/dL (3.4-5.0) L 09/09/18 14:44 Lipase 242 U/L (73-393) 09/09/18 14:44 Urine Color Brown (Yellow) 09/09/18 14:37 Urine Clarity Cloudy 09/09/18 14:37 Urine pH 6.0 (5-8) 09/09/18 14:37 Ur Specific [place] 1.020 (1.005-1.025) 09/09/18 14:37 Urine Protein 100 mg/dL (Negative) H 09/09/18 14:37 Urine Ketones Trace mg/dL (Negative) H 09/09/18 14:37 Urine Blood Large (Negative) H 09/09/18 14:37 Urine Nitrite Negative (Negative) 09/09/18 14:37 Urine Bilirubin Negative (Negative) 09/09/18 14:37 Urine Urobilinogen 0.2 EU/dL (Up TO 0.2) 09/09/18 14:37 Ur Leukocyte Esterase Large (Negative) H 09/09/18 14:37 Urine RBC Not Applicable 09/09/18 14:37 Urine WBC >50 HPF (0-5) 09/09/18 14:37 Ur Epithelial Cells Not Applicable 09/09/18 14:37 Urine Crystals Not Applicable 09/09/18 14:37 Urine Bacteria Not Applicable 09/09/18 14:37 Urine Mucus Not Applicable 09/09/18 14:37 Ur Culture Indicated? Yes 09/09/18 14:37 Urine Glucose Negative mg/dL (Negative) 09/09/18 14:37 Patient ABO/Rh O Negative 09/10/18 07:50
[2018-09-14 16:10] VITALS: BP 111/70; PULSE 61; RESP 18; TEMP 36.6; O2SAT 95
[2018-09-14] MEDS: Tamsulosin 0.4 MG CAPCR PO (17:04)
[2018-09-14] MEDS: Pravastatin 40 MG TAB PO (19:36)
[2018-09-14] MEDS: Warfarin 5 MG TAB PO (19:36)
[2018-09-14 19:38] VITALS: BP 119/71; PULSE 71; RESP 22; TEMP 36.4; O2SAT 96
[2018-09-14] MEDS: Senna TAB 2 TAB PO (21:47)
[2018-09-14] MEDS: Normal Saline Flush 10 ML SYR IVP (23:02)
[2018-09-15 00:01] VITALS: RESP 16
[2018-09-15 00:48] VITALS: BP 112/71; PULSE 71; RESP 16; TEMP 36.6; O2SAT 98
[2018-09-15] MEDS: Acetaminophen 325 MG TAB 650 MG PO ×4 (02:15→13:58)
[2018-09-15 07:36] LABS: BUN 25 mg/dL (7-18); CREATININE 1.72 mg/dL (0.70-1.30); Calcium 9.9 mg/dL (8.5-10.1); Chloride 107 mmol/L (98-107); Estimated GFR 38.55 (mL/min/1.73m2); Glucose 238 mg/dL (70-100); INR 2.4 (1.0-3.5); Potassium 4.3 mmol/L (3.5-5.1); Prothrombin Time 22.9 sec (9.3-10.8); Sodium 139 mmol/L (136-145)
[2018-09-15 07:40] VITALS: BP 117/77; PULSE 71; RESP 18; TEMP 36.4; O2SAT 98
[2018-09-15 07:44] LABS: Abs Immature Grans 0.02 k/cumm (0.0-0.09); Absolute Basophil Count 0.03 k/cumm (0.0-0.2); Absolute Eosinophil Count 0.19 k/cumm (0.0-0.7); Absolute Lymphocyte Count 1.14 k/cumm (1.2-3.4); Absolute Neutrophil Count 4.18 k/cumm (1.2-6.7); Basophils % 0.5; Eosinophils % 3.1; HCT 30.7 % (40.0-50.0); HGB 9.8 g/dL (13.5-17.5); Immature Grans % 0.3; Lymphocytes % 18.5; Mean Corp. HGB Concentration 31.9 g/dL (32.0-36.0); Mean Corpuscular Hemoglobin 28.6 pg (27.0-33.0); Mean Corpuscular Volume 89.5 fL (80-95); Mean Platelet Volume 9.5 fL (8.0-11.0); Monocytes % 9.7; Neutrophils % 67.9; Platelet Count 202 x1000/uL (130-400); RBC 3.43 m/cumm (4.50-6.00); RBC Distribution Width 15.5 % (11.8-14.1); White Blood Cell Count 6.16 k/cumm (4.4-10.8)
[2018-09-15] MEDS: Docusate Sodium 100 MG CAP PO (07:52)
[2018-09-15] MEDS: Metoprolol 50 MG TAB PO (07:52)
[2018-09-15] MEDS: amLODIPine 5 MG TAB PO (07:52)
[2018-09-15] MEDS: Omeprazole 20 MG CAPCR PO (07:52)
[2018-09-15] MEDS: LEVOFLOXACIN 500 MG, LEVOFLOXACIN 250 MG 750 MG PO (07:52)
[2018-09-15] MEDS: Insulin Aspart 300 UNITS/3 ML PEN SC ×2 (07:57→12:24)
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
[2018-09-15 08:12] LABS: Diff Comment RBC Morph Reviewed; Microcytosis 1+; Polychromasia Present
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
[2018-09-15] MEDS: Furosemide 20 MG TAB PO (09:01)
--- NOTE | 2018-09-15 10:10 | PDOC.CMPRO ---
- If Service Date Differs Date of service: 09/15/18 Time of Service: 10:10 Care Management Progress Note S/O: CM met with patient in his room he is sitting up in the recliner. He continues to not have a BM he would like to before returning home. He is taking acetaminophen to relieve his pain which he reports is helping. He is avoiding morphine r/t side effects of constipation. Sav reports he does have urologist in [place] , he also has an [place] [facility] [place] He would like to return home when medically ready. He states that he does not need additional services. CM provided active listening and reflection r/t Pt current hospital stay. He vocalizes his concerns about being informed of short nursing staff during the night and extended wait time for his pain management medications. CM over the weekend did share this with the primary nurse and requested it audit manager meet with patient to address his concerns. Today the patient states his pain is well controlled and he appreciates being able to discuss his hospital experience. A:Sav is a 78 year old male admitted with UTI P:Patient will return home when medically ready for discharge home when medically ready with his spouse via private car. CM to continue to provide support ongoing discharge planning, education and disposition to patient, family, and care team.
[2018-09-15] MEDS: Polyethylene Glycol 3350 17 GM PACKET PO (10:15)
--- NOTE | 2018-09-15 10:21 | CMPROGNOTE_ITS ---
- If Service Date Differs Date of service: 09/15/18 Time of Service: 10:10 Care Management Progress Note S/O: CM met with patient in his room he is sitting up in the recliner. He continues to not have a BM he would like to before returning home. He is taking acetaminophen to relieve his pain which he reports is helping. He is avoiding morphine r/t side effects of constipation. Sav reports he does have urologist in [place] , he also has an appointment at [facility] [place]. He would like to return home when medically ready. He states that he does not need additional services. CM provided active listening and reflection r/t Pt current hospital stay. He vocalizes his concerns about being informed of short nursing staff during the night and extended wait time for his pain management medications. CM over the weekend did share this with the primary nurse and requested product introduction manager meet with patient to address his concerns. Today the patient states his pain is well controlled and he appreciates being able to discuss his hospital experience. A:Sav is a 78 year old male admitted with UTI P:Patient will return home when medically ready for discharge home when medically ready with his spouse via private car. CM to continue to provide support ongoing discharge planning, education and disposition to patient, family , and care team.
--- NOTE | 2018-09-15 10:21 | NUR.NOTE ---
Pt given miralax and prune juice because pt is refusing enema at this time. Nursing Note:
--- NOTE | 2018-09-15 12:18 | DSE_ITS ---
Date of service: 09/15/18 Time of Service: 12:16 DS: Diagnosis Discharge Diagnosis (1) Emphysematous cystitis: Status: Acute (2) Hydronephrosis: Status: Acute (3) Elevated INR: Status: Resolved (4) Hematuria: Status: Acute (5) Nephrolithiasis: Status: Chronic (6) Chronic a-fib: Status: Chronic (7) CHF (congestive heart failure): Status: Chronic (8) Diabetes mellitus type 2 in obese: Status: Chronic (9) Constipation: Status: Acute Discharge Plan Disposition Condition: Improving Discharge Details Reason For Visit: UTI, Hematuria Admit Date/Time: 09/09/18 23:52 Admit Provider: Mazin Sue Attending Provider: Mazin Sue Primary Care Provider: Ricardo Luis Hospital Course Hospital Course: CC: Hematuria HPI: 78-year-old patient with a prior history of BPH and urinary retention, nephrolithiasis, Afib, and CHF admitted from [facility] Emergency Department on 2017 with evidence of UTI. Mr. Winkler presented to the Emergency Department with several days of left lower quadrant pain and gross hematuria, with initial evaluation showing a 9 mm stone at the UV junction along with gas in the ureter - however a repeat CT in the supine position showed the stone to be in fact in the bladder and not the ureter , and gas was noted in the wall of the bladder, indicating diagnosis of emphysematous cystitis. Recommendtion was made by Urology at [facility] [place] for medical management, including antibiotics and Knox catheterization. Patient was was admitted for further evaluation and treatment. The patient has remained on antibiotic therapy for an infection that appears to be Klebsiella by culture. Underwent successful voiding trial previously, and has since passed the stone in his bladder. He is feeling well subjectively. Hematuria has resolved. Patient's creatinine continues to be elevated but better than at time of admission. He had complained of lack of bowel movement for a number of days, resolved following administration of a bowel regimen yesterday and a fleets enema this morning. Hospital Course: (1) Emphysematous cystitis: Culture with Klebsiella - Ceftriaxone initially for five days, followed by change to oral Levofloxacin yesterday with a planned 14 day course of antibiotic therapy for complicated UTI. (2) Hydronephrosis: Likely in setting of BPH and obstructive uropathy. Continue on a-geraldine. Underwent successful voiding trial 2 days ago without significant post-void residual. Will need outpatient urology follow up - scheduled. Passed large bladder stone. (3) Elevated INR: Significantly elevated INR at time of admission, with initial value of 9.6. S/ p Vitamin K. Resumed coumadin 09/12/2017. Not a candidate for a DOAC due to weight. Continue to monitor INR with plans for repeat check as an outpatient in 2-3 days. (4) Hematuria: In setting of nephrolithiasis/cystitis with significantly elevated INR - Resolved S/p Vit K/FFP. (5) Nephrolithiasis: Initially thought obstructive, stone in bladder by repeat imaging - read apparently confirmed with radiology. Patient successfully passed stone. Follow up with urology as outpatient. (6) Chronic a-fib: Rate controlled on BB Therapy. Resumed anticoagulation - monitor INR as above. (7) CHF (congestive heart failure): NICMP with LVEF 45%. Oral lasix held secondary to acute infection and KENNETH - resume now. Patient also received single doses of IV Furosemide. Acute on CKD, with current creatinine elevation likely chronic on basis of obstructive uropathy - Will continue to hold ARB. Pulmonary exam normal, with significant and Chronic LE Edema present. (8) Diabetes mellitus type 2 in obese: Plan on discontinuation of metformin at time of discharge secondary to patient' s creatinine and age. Blood sugars mainly in the 200's - maintained on a sliding scale while hospitalized. Plan on initiating very low dose sulfonylurea with titration as outpatient. (9) Constipation: Reported lack of bowel movement for a number of days without any abdominal discomfort or nausea. Passing flatus. Started on standing Senna and Colace, one time administration of Miralax, and finally Fleets Enema. Patient with successful bowel movement this am. Recommend continuation of daily miralax for another 2-3 days, then on a prn basis. (10) Elevated Creatinine Previous baseline of 1.3, with current values ranging in the 1.7 - 2 range in the setting of obstructive uropathy. Unsure if this is now patient's new baseline. Did initiate a-geraldine in case of enlarged prostate, and patient is following with urology. Need to monitor closely - repeat BMP in 2-3 days. (11) Code Status: Full code. Home Meds and New Rx's Prescriptions: New tamsulosin 0.4 mg Capsule 0.4 mg PO DAILY@1800 30 Days RF: 0 levofloxacin 750 mg tablet 750 mg PO QAM 8 Days Qty: 8 RF: 0 glipizide 5 mg tablet 5 mg PO DAILY Qty: 30 RF: 0 Continue multivitamin [Daily Multiple] 1 EACH tablet 1 ea PO DAILY RF: 0 blood sugar diagnostic [Digitinguch Ultra Test] 1 EACH strip 1 ea Miscellaneous DAILY Qty: 90 RF: 3 lancets [Bluebridge DigitalTouch UltraSoft Lancets] 1 EACH misc 1 ea Miscellaneous DAILY Qty: 90 RF: 3 blood-glucose meter [Digitinguch Ultra2] 1 EACH kit 1 ea Miscellaneous DAILY Qty: 1 RF: 0 amlodipine 5 MG tablet 5 mg PO DAILY Qty: 90 RF: 4 warfarin [Jantoven] 2.5 MG tablet 1 tab PO DIRECTED Qty: 180 RF: 6 omeprazole 20 MG capsule,delayed release(DR/EC) 20 mg PO DAILY RF: 0 furosemide 20 MG tablet 20 mg PO DAILY Qty: 90 RF: 3 pravastatin 40 MG tablet 40 mg PO QPM Qty: 90 RF: 0 potassium chloride [Klor-Con M10] 10 MEQ tablet,ER particles/crystals 10 meq PO DAILY Qty: 90 RF: 1 metoprolol tartrate 100 mg tablet 50 mg PO BID Qty: 60 RF: 4 Discontinued metformin 1,000 MG tablet 500 mg PO BID Qty: 180 RF: 3 losartan 50 MG tablet 50 mg PO DAILY Qty: 90 RF: 3 cephalexin [Keflex] 500 mg capsule 500 mg PO TID Qty: 20 RF: 0 Discharge Instructions Instructions: Urinary Tract Infection in Men (DC) Stand Alone Forms: Nursing Discharge Form Referrals: Ricardo Luis DO [Primary Care Provider] - Activity:: No Strenuous Activity Equipment/Supplies:: No Equipment Needed Diet:: Carb Counting Discharge Orders Other Ambulatory Orders: Basic Metabolic Panel (Routine) Timeframe: 2 Days Location: Determined by Patient Ordered By: Tonny Carmona Complete Blood Count w/Diff (Routine) Timeframe: 2 Days Location: Determined by Patient Ordered By: Tonny Carmona Prothrombin Time (Routine) Timeframe: 2 Days Location: Determined by Patient Ordered By: Tonny Carmona Exam Narrative Exam Narrative: General: Sitting up out of bed inc chair, NAD noted. Appears comfortable. Neck: Supple CV: irregularly irregular, Not tachycardic. No overt murmurs Pulmonary: CTAB without crackles, rhonchi, or wheezing Abdomen: + Bowel Sounds, soft, nontender, nondistended, obese in contour Extremities: +1-2 B/l LE edema, symmetric DS: Data Vitals/I&O Vitals and I&O: Vital Signs Temperature 36.4 C L 09/15/18 07:40 Temperature Source Tympanic 09/15/18 07:40 Pulse 71 09/15/18 07:40 Pulse Rhythm Regular 09/13/18 16:35 Respiratory Rate 18 09/15/18 07:40 Respiratory Effort Non-Labored 09/14/18 21:02 Respiratory Depth Normal 09/14/18 21:02 Respiratory Pattern Normal 09/14/18 21:02 Blood Pressure 117/77 09/15/18 07:40 Pulse Oximetry 98 09/15/18 07:40 Oxygen Delivery Method Room Air 09/15/18 07:40 Oxygen Flow Rate 0 09/15/18 07:40 Pain Level 3 09/15/18 10:55 Comment 09/09/18 13:30 Intake & Output 09/14/18 09/15/18 09/15/18 23:59 11:59 23:59 Intake Total 480 / 480 240 / 240 Output Total 700 / 700 1200 / 1200 Balance -220 / -220 -960 / -960 Intake: Oral 480 / 480 240 / 240 Output: Urine 700 / 700 1200 / 1200 Other: Urine Color Yellow Yellow Urine Appearance Clear Clear Urine Odor Normal Strain Urine Result Positive-Stone Seen Comment large, brown, hard, almond-size stone passed. Specimen saved, labeled and sent to lab. Stool Size Large Stool Characteristics Formed Voiding Methods Urinal Toilet Completed studies during hospitalization [Text1]: Exam(s) 09/09/[address]:CT pelvic wo a CT:CT renal colic wo SYMPTOM/DIAGNOSIS: EVALUATE DISTAL RIGHT URETERAL STONE ABDOMEN AND PELVIC CT: Comparison is made with 06/06/18. The exam is somewhat limited by the patient's body habitus. There are multiple large calcifications in the medullary regions of both kidneys. There are two stones seen in the adjacent portion of the bladder of the posterior right side. There is air in the bladder as well as some air in the right renal pelvis. There is mild right hydronephrosis. There are bilateral renal cysts. The prostate does not appear enlarged. There are bilateral fatty containing inguinal hernias as well as an umbilical hernia. The appendix appears normal. There is a moderate quantity of stool. No bowel dilatation or inflammatory changes are seen. The lung bases show mild pleural calcification. The patient is status post cholecystectomy. The liver, spleen and adrenals are unremarkable. The pancreas is somewhat atrophic. The aorta is normal in diameter. Degenerative changes are seen in the spine. IMPRESSION: Multiple bilateral renal calculi. There is mild right hydronephrosis. There are two calcifications seen in the bladder, one of which is close to the ureterovesical junction. A bladder calculus was demonstrated on the previous exam. There is air within the urinary bladder as well as some bladder wall thickening and trabeculation. PELVIC CT: Comparison is made with noncontrast CT of the abdomen and pelvis performed earlier the same day. The exam was performed in the prone position. The two calculi in the bladder are seen in the anterior bladder, consistent with mobile calculi. Gas is again noted in the bladder. There appears to be trabeculation of the bladder wall and multiple small diverticula, filling with air. The bladder appears somewhat distended. The prostate is not enlarged. IMPRESSION: Two mobile bladder calculi are demonstrated. There is air in the urinary bladder which shows thickened wall with multiple diverticula versus emphysematous cystitis. --------- Exam(s) 09/09/2018 EXAM: CT Abdomen and Pelvis Without Intravenous Contrast EXAM DATE/TIME: 09/09/2018 2:28 PM COMPARISON: CT CHEST ABD PELVIS WITH CONTRAST 11/29/2017 9:35 PM FINDINGS: Lower thorax: Mild calcifications of the posterior pleura on the left. ABDOMEN: Liver: Normal. No mass. Gallbladder and bile ducts: Cholecystectomy clips. Pancreas: Pancreatic calcifications. There is mesenteric stranding around the pancreatic head. Spleen: Normal. No splenomegaly. Adrenals: Normal. No mass. Kidneys and ureters: 7.5 cm cyst in the upper pole of right kidney. 1.5 cm cyst in the midpole of the left kidney. There are multiple nonobstructing calculi in the bilateral kidneys. The largest measures 1.5 cm in the midpole of the right kidney and 1.7 cm in the midpole of the left kidney. There is mild perinephric stranding on the right.. There is hydronephrosis and hydroureter on the right with a 8mm calculus at the uretero vesicular junction. Air is seen in the bladder, in the right ureter and in the right pelvis. Correlation with recent instrumentation versus infection. The left ureter is unremarkable. Stomach and bowel: Normal. No obstruction. No mucosal thickening. Appendix: Appendix is unremarkable. PELVIS: Bladder: See Kidneys And Ureters Finding. Reproductive: Unremarkable as visualized. ABDOMEN and PELVIS: Intraperitoneal space: Normal. No free air. No significant fluid collection. Bones/joints: Degenerative changes of the spine. Grade 1 anterolisthesis of L4 over L5. Soft tissues: Bilateral inguinal hernias containing fat. Umbilical hernia containing fat. Vasculature: Normal. No abdominal aortic aneurysm. Lymph nodes: Normal. No enlarged lymph nodes. IMPRESSION: 1. Right hydronephrosis and hydroureter with a 8mm obstructing calculus at the ureterovesical junction. 2. Air in the bladder, right ureter and right pelvis. Correlation with recent instrumentation versus infection. 3. Multiple nonobstructing bilateral renal calculi as described above. 4. Stranding around the pancreatic head. Correlation with lab values for acute pancreatitis. Other nonacute findings as described above. --------- Exam(s) a CT:CT pelvic wo a CT:CT renal colic wo SYMPTOM/DIAGNOSIS: EVALUATE DISTAL RIGHT URETERAL STONE ABDOMEN AND PELVIC CT: Comparison is made with 06/06/18. The exam is somewhat limited by the patient's body habitus. There are multiple large calcifications in the medullary regions of both kidneys. There are two stones seen in the adjacent portion of the bladder of the posterior right side. There is air in the bladder as well as some air in the right renal pelvis. There is mild right hydronephrosis. There are bilateral renal cysts. The prostate does not appear enlarged. There are bilateral fatty containing inguinal hernias as well as an umbilical hernia. The appendix appears normal. There is a moderate quantity of stool. No bowel dilatation or inflammatory changes are seen. The lung bases show mild pleural calcification. The patient is status post cholecystectomy. The liver, spleen and adrenals are unremarkable. The pancreas is somewhat atrophic. The aorta is normal in diameter. Degenerative changes are seen in the spine. IMPRESSION: Multiple bilateral renal calculi. There is mild right hydronephrosis. There are two calcifications seen in the bladder, one of which is close to the ureterovesical junction. A bladder calculus was demonstrated on the previous exam. There is air within the urinary bladder as well as some bladder wall thickening and trabeculation. PELVIC CT: Comparison is made with noncontrast CT of the abdomen and pelvis performed earlier the same day. The exam was performed in the prone position. The two calculi in the bladder are seen in the anterior bladder, consistent with mobile calculi. Gas is again noted in the bladder. There appears to be trabeculation of the bladder wall and multiple small diverticula, filling with air. The bladder appears somewhat distended. The prostate is not enlarged. IMPRESSION: Two mobile bladder calculi are demonstrated. There is air in the urinary bladder which shows thickened wall with multiple diverticula versus emphysematous cystitis. --------- EXAM: CT Pelvis Without Intravenous Contrast EXAM DATE/TIME: 09/09/2018 9:29 PM CLINICAL HISTORY: 78 years old, male; Signs and symptoms; Other: To evaluate distal right stone COMPARISON: CT renal colic wo 09/09/2018 4:20 PM FINDINGS: Kidneys and ureters: Upon prone positioning, the 2 calculi become dependent suggesting they are within the urinary bladder rather than in the UPJ. Stomach and bowel: No evidence of bowel obstruction. Appendix: Normal appendix. Bladder: Gas is also noted in the urinary bladder which can be seen secondary to recent instrumentation, infection, or fistulous connection. There appear to be some locules of gas either within the urinary bladder wall or within multiple diverticula (series 6 image [id number]) . Emphysematous cystitis is therefore not excluded. There is mild urinary bladder wall prominence which can be seen with infection in the appropriate clinical setting. Reproductive: Normal as visualized. Intraperitoneal space: Unremarkable. No free air. No significant fluid collection. Vasculature: Evaluation of the intra-abdominal organs and vasculature is limited secondary to the lack of IV contrast. Evaluation of the bowel is limited secondary to lack of oral contrast. Vascular calcifications. Lymph nodes: Unremarkable. No enlarged lymph nodes. Bones/joints: Skeletal degenerative changes. Minimal anterolisthesis of L4 on L5, unchanged from prior examination. Soft tissues: Incompletely imaged fat containing anterior abdominal wall hernia. bilateral fat containing inguinal hernias. IMPRESSION: 1. Upon prone positioning, 2 calculi become dependent suggesting they are within the urinary bladder rather than in the UPJ. 2. Gas is also noted in the urinary bladder which can be seen secondary to recent instrumentation, infection, or fistulous connection. There appear to be some locules of gas within the urinary bladder wall , within multiple diverticula , or within a combination (series 6 image 52) . Emphysematous cystitis is therefore not excluded. There is mild urinary bladder wall prominence which can be seen with infection in the appropriate clinical setting. 3. Other findings as above. Labs on day of discharge: Labs from last 24 hours 09/15/18 09/15/18 09/15/18 06:25 06:25 06:25 WBC 6.16 RBC 3.43 L Hgb 9.8 L Hct 30.7 L MCV 89.5 MCH 28.6 MCHC 31.9 L RDW 15.5 H Plt Count 202 MPV 9.5 Immature Gran % 0.3 Neutrophils % 67.9 Lymphocytes % 18.5 Monocytes % 9.7 Eosinophils % 3.1 Basophils % 0.5 Absolute Neutrophils 4.18 Absolute Lymphocytes 1.14 L Absolute Monocytes 0.60 Absolute Eosinophils 0.19 Absolute Basophils 0.03 Differential Comment Rbc morph reviewed RBC Morphology See below Polychromasia Present Microcytosis 1+ PT 22.9 H D INR 2.4 D Sodium 139 Potassium 4.3 Chloride 107 Carbon Dioxide 23.0 Anion Gap 9.0 BUN 25 H Creatinine 1.72 H Estimated GFR/1.73 m2 38.55 Glucose 238 H Calcium 9.9
[2018-09-15] MEDS: Normal Saline Flush 10 ML SYR IVP (12:25)
[2018-09-15] MEDS: MORPHine 10 MG/ML VIAL IVP (12:25)
--- NOTE | 2018-09-15 15:19 | PDOC.CMDIS ---
- If Service Date Differs Date of service: 09/15/18 Time of Service: 15:19 LACE Index Scoring Tool - Questions: Length of Stay (in days): 7 - 13 Acuity (Admit via E.D.?): Yes Comorbidities: Diabetes w/o Complication, Mild Liver/Renal Disease E.D. Visits: 4 - Answers: Total Score: 15 Risk of Readmission: High Risk Care Management Discharge Reason for Hospitalization: UTI Discharge Plan: Sav will be discharged home today with his spouse. Sav declines any services at this time. CM reviewed symptoms of hypoglycemia with patient and reviewed new medications. Sav feels ready to go home and he will follow up with primary care provider and urologist. Patient/Family Education Needs: Discharge education, limitations and follow up plan of care. Review of ask me three and self management discussion with patient and spouse.
== END 2018-09-15 14:00 | disposition home or self-care (01) | DRG 690 ==
LOC: ER 20:50 → MS 09-10 00:56
PROVIDERS: Internal Medicine; Student in an Organized Health Care Education/Training Program; Admitting Provider General Practice; Emergency Provider Emergency Medicine; PCP Emergency Medicine; Visit Provider General Practice
DX: N30.81 Other cystitis with hematuria (principal); N13.6 Pyonephrosis; N17.9 Acute kidney failure, unspecified; Z68.41 Body mass index [BMI] 40.0-44.9, adult; B96.1 Klebsiella pneumoniae [K. pneumoniae] as the cause of diseases classified elsewhere; Z16.11 Resistance to penicillins; N21.0 Calculus in bladder; K59.00 Constipation, unspecified; R79.1 Abnormal coagulation profile; Z79.01 Long term (current) use of anticoagulants; T45.515A Adverse effect of anticoagulants, initial encounter; I48.2 Chronic atrial fibrillation; N18.9 Chronic kidney disease, unspecified; E11.22 Type 2 diabetes mellitus with diabetic chronic kidney disease; R94.4 Abnormal results of kidney function studies; G47.33 Obstructive sleep apnea (adult) (pediatric); Z79.84 Long term (current) use of oral hypoglycemic drugs; E66.01 Morbid (severe) obesity due to excess calories
CPT/HCPCS: 36415; 51702; 80048; 80053; 83690; 86900; 86901; 87077; 96361; 96365; 96375; 97162; 97530; 99222; 99232; 99233; 99239; 99285; 72192; 74176; 81003; 81015; 83735; 85025; 85610; 87086; 87186; J0696; J1644; J1885; J1941; J2270; P9059

== ENCOUNTER 2018-09-19 09:47 | Outpatient (CLI) | payer OTHER, SELFPAY ==
[2018-09-19 13:21] LABS: Abs Immature Grans 0.02 k/cumm (0.0-0.09); Absolute Basophil Count 0.02 k/cumm (0.0-0.2); Absolute Eosinophil Count 0.15 k/cumm (0.0-0.7); Absolute Lymphocyte Count 1.58 k/cumm (1.2-3.4); Absolute Monocyte Count 0.61 k/cumm (0.11-0.7); Absolute Neutrophil Count 4.31 k/cumm (1.2-6.7); Basophils % 0.3; Eosinophils % 2.2; HCT 35.7 % (40.0-50.0); HGB 11.2 g/dL (13.5-17.5); Immature Grans % 0.3; Lymphocytes % 23.6; Mean Corp. HGB Concentration 31.4 g/dL (32.0-36.0); Mean Corpuscular Hemoglobin 28.4 pg (27.0-33.0); Mean Corpuscular Volume 90.6 fL (80-95); Mean Platelet Volume 9.4 fL (8.0-11.0); Monocytes % 9.1; Neutrophils % 64.5; Platelet Count 245 x1000/uL (130-400); RBC 3.94 m/cumm (4.50-6.00); RBC Distribution Width 16.1 % (11.8-14.1); White Blood Cell Count 6.69 k/cumm (4.4-10.8)
[2018-09-19 13:34] LABS: Iron 56 ug/dL (50-175); Total Iron Binding Capacity 308 ug/dL (250-450); Transferrin Sat 18 % (20-55)
[2018-09-19 13:44] LABS: INR 3.7 (1.0-3.5); Prothrombin Time 34.2 sec (9.3-10.8)
[2018-09-19 13:49] LABS: Hemoglobin A1C 7.7 % (4.5-6.2)
[2018-09-19 13:51] LABS: BUN 22 mg/dL (7-18); CREATININE 1.75 mg/dL (0.70-1.30); Calcium 10.5 mg/dL (8.5-10.1); Chloride 108 mmol/L (98-107); Estimated GFR 37.79 (mL/min/1.73m2); Ferritin 99 ng/mL (8-388); Glucose 92 mg/dL (70-100); Potassium 3.8 mmol/L (3.5-5.1); Sodium 141 mmol/L (136-145)
[2018-09-19 14:13] LABS: NT-proBNP 1818 pg/mL
== END 2018-09-19 10:07 ==
PROVIDERS: PCP Emergency Medicine; Visit Provider Internal Medicine
DX: R79.1 Abnormal coagulation profile (principal); I48.2 Chronic atrial fibrillation; N20.0 Calculus of kidney; I50.9 Heart failure, unspecified
CPT/HCPCS: 36415; 80048; 82728; 83036; 83540; 83550; 83880; 85025; 85610

== ENCOUNTER 2018-09-26 07:41 | Outpatient (CLI) | payer OTHER, SELFPAY ==
[2018-09-26 11:32] LABS: INR 2.1 (1.0-3.5); Prothrombin Time 20.1 sec (9.3-10.8)
== END 2018-09-26 08:01 ==
PROVIDERS: PCP Emergency Medicine; Visit Provider Emergency Medicine
DX: I48.91 Unspecified atrial fibrillation (principal); Z79.01 Long term (current) use of anticoagulants
CPT/HCPCS: 36415; 85610

== ENCOUNTER 2018-10-03 01:59 | Outpatient (CLI) | payer OTHER, SELFPAY ==
[2018-10-03 11:11] LABS: INR 2.1 (1.0-3.5); Prothrombin Time 19.7 sec (9.3-10.8)
== END 2018-10-03 02:19 ==
PROVIDERS: PCP Emergency Medicine; Visit Provider Emergency Medicine
DX: I48.91 Unspecified atrial fibrillation (principal); Z79.01 Long term (current) use of anticoagulants
CPT/HCPCS: 36415; 85610

== ENCOUNTER 2018-11-20 12:11 | Outpatient (CLI) | payer OTHER, SELFPAY ==
[2018-11-20 13:21] LABS: INR 3.3 (0.9-1.1); Prothrombin Time 33.8 sec (9.3-11.0)
== END 2018-11-20 12:31 ==
PROVIDERS: PCP Emergency Medicine; Visit Provider Emergency Medicine
DX: I48.91 Unspecified atrial fibrillation (principal); Z79.01 Long term (current) use of anticoagulants
CPT/HCPCS: 36415; 85610

== ENCOUNTER 2019-01-06 14:10 | Outpatient (CLI) | payer OTHER, SELFPAY ==
[2019-01-06 14:58] LABS: Absolute Basophil Count 0.02 k/cumm (0.0-0.2); Absolute Eosinophil Count 0.14 k/cumm (0.0-0.7); Absolute Lymphocyte Count 1.62 k/cumm (1.2-3.4); Absolute Monocyte Count 0.74 k/cumm (0.11-0.7); Basophils % 0.4; Eosinophils % 2.7; HCT 37.7 % (40.0-50.0); HGB 12.3 g/dL (13.5-17.5); Mean Corp. HGB Concentration 32.6 g/dL (32.0-36.0); Mean Corpuscular Volume 88.9 fL (80-95); Mean Platelet Volume 9.7 fL (8.0-11.0); Monocytes % 14.2; Neutrophils % 51.7; Platelet Count 168 x1000/uL (130-400); RBC 4.24 m/cumm (4.50-6.00); RBC Distribution Width 15.7 % (11.8-14.1); White Blood Cell Count 5.22 k/cumm (4.4-10.8)
[2019-01-06 15:11] LABS: INR 2.7 (0.9-1.1); Prothrombin Time 26.9 sec (9.3-11.0)
[2019-01-06 15:36] LABS: Iron 46 ug/dL (50-175); Total Iron Binding Capacity 384 ug/dL (250-450); Transferrin Sat 12 % (20-55)
[2019-01-06 16:03] LABS: Ferritin 36 ng/mL (8-388); Vitamin B12 458 pg/mL (193-986)
[2019-01-06 16:35] LABS: NT-proBNP 2675 pg/mL
== END 2019-01-06 14:30 ==
PROVIDERS: PCP Emergency Medicine; Visit Provider Emergency Medicine
DX: D63.1 Anemia in chronic kidney disease (principal); N18.9 Chronic kidney disease, unspecified; I50.9 Heart failure, unspecified; R20.2 Paresthesia of skin; I48.91 Unspecified atrial fibrillation; Z79.01 Long term (current) use of anticoagulants
CPT/HCPCS: 36415; 82607; 82728; 83540; 83550; 83880; 85025; 85610

== ENCOUNTER 2019-02-12 14:23 | Outpatient (CLI) | payer OTHER, SELFPAY ==
[2019-02-12 14:48] LABS: INR 2.2 (0.9-1.1); Prothrombin Time 22.3 sec (9.3-11.0)
== END 2019-02-12 14:43 ==
PROVIDERS: PCP Emergency Medicine; Visit Provider Emergency Medicine
DX: I48.91 Unspecified atrial fibrillation (principal); Z79.01 Long term (current) use of anticoagulants
CPT/HCPCS: 36415; 85610

== ENCOUNTER 2019-03-20 14:12 | Outpatient (CLI) | payer OTHER, SELFPAY ==
--- NOTE | 2019-03-20 14:30 | DI.RAD_ITS ---
SYMPTOMS/DIAGNOSIS: CONGESTIVE HEART FAILURE, CHRONIC ATRIAL FIBRILLATION, I48.2 PA AND LATERAL CHEST: The heart is at the upper limits of normal in size. The lungs are grossly clear. No pleural effusions seen. CONCLUSION: No evidence of acute disease.
[2019-03-20 14:49] LABS: INR 2.1 (0.9-1.1); Prothrombin Time 20.9 sec (9.3-11.0)
[2019-03-20 15:22] LABS: Anion Gap 9.9 mmol/L (3-11); BUN 26 mg/dL (7-18); CO2 23.1 mmol/L (21.0-32.0); CREATININE 2.04 mg/dL (0.70-1.30); Calcium 9.9 mg/dL (8.5-10.1); Chloride 110 mmol/L (98-107); Estimated GFR 31.66 (mL/min/1.73m2); Glucose 162 mg/dL (70-100); Potassium 4.2 mmol/L (3.5-5.1); Sodium 143 mmol/L (136-145)
== END 2019-03-20 14:32 ==
PROVIDERS: PCP Emergency Medicine; Visit Provider Emergency Medicine
DX: I48.2 Chronic atrial fibrillation (principal); E11.9 Type 2 diabetes mellitus without complications; E66.9 Obesity, unspecified; I10 Essential (primary) hypertension; I50.9 Heart failure, unspecified; Z79.01 Long term (current) use of anticoagulants
CPT/HCPCS: 36415; 80048; 71046; 83036; 85610

== ENCOUNTER 2019-04-02 01:07 | Outpatient (CLI) | payer OTHER, SELFPAY ==
--- NOTE | 2019-04-02 10:32 | MERGE_ITS ---
*[facility]* *[facility]* [address] [place] [address] Date of study: 04/02/2019 Transthoracic Echocardiography M-mode, complete 2D, complete spectral Doppler, and color Doppler *STUDY CONCLUSIONS* Summary: 1. Left ventricle: The cavity size was normal. Systolic function was normal. The estimated ejection fraction was 60-65%. The study was not technically sufficient to allow evaluation of LV diastolic dysfunction due to atrial fibrillation. Doppler parameters are consistent with high ventricular filling pressure. 2. Mitral valve: There was moderate regurgitation. 3. Left atrium: The atrium was severely dilated. 4. Right ventricle: The cavity size was normal. Wall thickness was normal. Systolic function was normal. 5. Right atrium: The atrium was severely dilated. 6. Atrial septum: No defect or patent foramen ovale was identified. 7. Pulmonary arteries: Pulmonary systolic pressure was in the range of 40mm Hg to 55mm Hg. 8. Inferior vena cava: The vessel was patent and dilated. The respirophasic diameter changes were blunted (less than 50%), consistent with elevated central venous pressure. *PATIENT PRESENTATION* Height: 188cm ((74in) ) S/D Pressure: 136 / 71 Weight: 149.7kg ((329.3lb) ) BSA: 2.86m^2 Test start time: 10:40 AM. Test stop time: 11:40 AM. 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 This study was interpreted by [facility]. Pertinent images and digital data are archived for permanent storage and are available for subsequent review. Comparison was made to the study of October 2016. Study status: Routine. Transthoracic echocardiography. M-mode, complete 2D, complete spectral Doppler, and color Doppler. A Transthoracic Echocardiogram was performed. Scanning was performed from the parasternal, apical, subcostal, and suprasternal notch acoustic windows. Images were obtained using an [id number] cardiac ultrasound machine. Image quality was adequate. Study completion: The patient tolerated the procedure well. History: PMH: CHF chronic afib Heart failure. I50.9, I48.2. *CARDIAC ANATOMY* Left ventricle: The cavity size was normal. Systolic function was normal. The estimated ejection fraction was 60-65%. The study was not technically sufficient to allow evaluation of LV diastolic dysfunction due to atrial fibrillation. Doppler parameters are consistent with high ventricular filling pressure. Aortic valve: Trileaflet. Doppler: There was no stenosis. VTI ratio of LVOT to aortic valve: 0.52. Valve area (VTI): 2cm^2. Indexed valve area (VTI): 0.7cm^2/m^2. Peak velocity ratio of LVOT to aortic valve: 0.54. Valve area (Vmax): 2.1cm^2. Indexed valve area (Vmax): 0.7cm^2/m^2. Mean velocity ratio of LVOT to aortic valve: 0.53. Valve area (Vmean): 2cm^2. Indexed valve area (Vmean): 0.7cm^2/m^2. Mean gradient (S): 5mm Hg. Peak gradient (S): 7.6mm Hg. Aorta: Aortic root: The aortic root was normal in size. Ascending aorta: The ascending aorta was mildly dilated. Mitral valve: Doppler: There was no evidence for stenosis. There was moderate regurgitation. Peak gradient (D): 6mm Hg. Left atrium: The atrium was severely dilated. Atrial septum: No defect or patent foramen ovale was identified. Right ventricle: The cavity size was normal. Wall thickness was normal. Systolic function was normal. Pulmonic valve: Doppler: There was no evidence for stenosis. There was no significant regurgitation. Peak gradient (S): 2.8mm Hg. Tricuspid valve: Doppler: There was mild regurgitation. Pulmonary artery: Poorly visualized. Pulmonary systolic pressure was in the range of 40mm Hg to 55mm Hg. Right atrium: The atrium was severely dilated. Pericardium: There was no pericardial effusion. Systemic veins: Inferior vena cava: Well visualized. The vessel was patent and dilated. The respirophasic diameter changes were blunted (less than 50%), consistent with elevated central venous pressure. Baseline ECG: Atrial fibrillation. Measurements Left ventricle Value Reference LV ID, ED, PLAX (H) 6.2 cm 3.5 - 6.0 LV ID, ES, PLAX (H) 4.8 cm 2.1 - 4.0 LV PW thickness, ED, PLAX 1.2 cm LV end-diastolic volume, 1-p A2C 220 ml LV ejection fraction, 1-p A2C 48 % LV end-diastolic volume, 1-p A4C 138 ml LV ejection fraction, 1-p A4C 50 % LV e', lateral 0.108 m/sec LV E/e', lateral 11 LV e', medial 0.094 m/sec LV E/e', medial 13 LV e', average 0.101 m/sec LV E/e', average 12 Ventricular septum Value Reference IVS thickness, ED, PLAX 1.1 cm LVOT Value Reference LVOT ID, A-P 2.2 cm LVOT area 3.8 cm^2 LVOT peak velocity, S 0.74 m/sec LVOT mean velocity, S 0.57 m/sec LVOT VTI, S 16.0 cm LVOT peak gradient, S 2.2 mm Hg LVOT mean gradient, S 1.4 mm Hg Stroke volume (SV), LVOT DP 61 ml Stroke index (SV/bsa), LVOT DP 21 ml/m^2 Aortic valve Value Reference Aortic valve peak velocity, S 1.4 m/sec Aortic valve mean velocity, S 1.07 m/sec Aortic valve VTI, S 31.0 cm Aortic mean gradient, S 5 mm Hg Aortic peak gradient, S 7.6 mm Hg VTI ratio, LVOT/AV 0.52 Aortic valve area, VTI 2 cm^2 Velocity ratio, peak, LVOT/AV 0.54 Aortic valve area, peak velocity 2.1 cm^2 Velocity ratio, mean, LVOT/AV 0.53 Aortic valve area, mean velocity 2 cm^2 Aortic valve area/bsa, mean velocity 0.7 cm^2/m^2 Aorta Value Reference Aortic root ID, ED 3.1 cm Ascending aorta ID, A-P, S 3.9 cm Left atrium Value Reference LA ID, A-P, ES 5.5 cm LA ID/bsa, A-P 1.9 cm/m^2 <=2.2 LA area, ES, A4C (H) 37.1 cm^2 8.8 - 23.4 LA area, ES, A2C 35 cm^2 LA volume/bsa, ES, 1-p A4C 67 ml/m^2 LA volume, ES, 2-p 159 ml LA volume/bsa, ES, 2-p 56 ml/m^2 LA/aortic root ratio 1.76 Mitral valve Value Reference Mitral E-wave peak velocity 1.23 m/sec Mitral peak gradient, D 6 mm Hg Tricuspid valve Value Reference Tricuspid regurg peak velocity 2.3 m/sec Tricuspid peak RV-RA gradient 21.5 mm Hg Right atrium Value Reference RA area, ES, A4C (H) 39.3 cm^2 8.3 - 19.5 Pulmonic valve Value Reference Pulmonic peak gradient, S 2.8 mm Hg Legend: (L) and (H) elizabeth values outside specified reference range. I have personally reviewed the images and have reviewed and edited the reported findings. Electronically signed by Rui Chino MD 04/02/2019 18:51
== END 2019-04-02 01:27 ==
PROVIDERS: PCP Emergency Medicine; Visit Provider Emergency Medicine
DX: I48.2 Chronic atrial fibrillation (principal); I50.9 Heart failure, unspecified; I51.7 Cardiomegaly; I34.0 Nonrheumatic mitral (valve) insufficiency; I10 Essential (primary) hypertension
CPT/HCPCS: 93306

== ENCOUNTER 2019-04-10 09:59 | Emergency (ER) | payer OTHER, SELFPAY ==
[2019-04-10] VITALS (12 sets, daily range): BP systolic 111–118; BP diastolic 70–75; PULSE 90–114; RESP 18–23; TEMP 37.2; O2SAT 81–99
--- NOTE | 2019-04-10 10:06 | NUR.NOTE ---
pt states that he has had a fever and generalized weakness for the past 2-3 days as well as a fever or 102 as been taking Tylenol. this morning pt felt nauseous and vomited however no longer feel nauseated
--- NOTE | 2019-04-10 10:13 | W.ED.GENAD ---
Discharge Plan Disposition Patient Disposition: HOME Condition: Fair Discharge Details Chief Complaint: Fever Clinical Impression: Pneumonia Primary Care Provider: Ricardo Luis ED Provider: Alice Wiseman Home Meds and New Rx's Prescriptions: New doxycycline hyclate 100 mg capsule 100 mg PO BID Qty: 10 RF: 0 cefpodoxime 200 mg tablet 200 mg PO Q24H Qty: 5 RF: 0 Continued glipizide 5 mg tablet 10 mg PO DAILY Qty: 180 RF: 3 tamsulosin 0.4 mg capsule 0.4 mg PO DAILY@1800 90 Days Qty: 90 RF: 3 multivitamin [Daily Multiple] 1 EACH tablet 1 ea PO DAILY RF: 0 blood-glucose meter [UniphoreTouch Ultra2] 1 EACH kit 1 ea Miscellaneous DAILY Qty: 1 RF: 0 omeprazole 20 MG capsule,delayed release(DR/EC) 20 mg PO DAILY RF: 0 furosemide 20 MG tablet 20 mg PO DAILY Qty: 90 RF: 3 potassium chloride [Klor-Con M10] 10 MEQ tablet,ER particles/crystals 10 meq PO DAILY Qty: 90 RF: 1 metoprolol tartrate 100 mg tablet 50 mg PO BID Qty: 60 RF: 4 amlodipine 5 mg tablet 5 mg PO DAILY Qty: 90 RF: 4 OneTouch Ultra Test strip 1 ea Miscellaneous DAILY Qty: 90 RF: 3 lancets [OneTouch UltraSoft Lancets] misc 1 ea Miscellaneous DAILY Qty: 90 RF: 4 warfarin [Jantoven] 2.5 mg tablet 5 mg PO DIRECTED Qty: 180 RF: 6 pravastatin 40 mg tablet 40 mg PO QPM Qty: 90 RF: 3 Discharge Instructions Additional Instructions: Encourage hydration. You may use Tylenol or discomfort or recurrence of fever. Please take antibiotics as prescribed, even if symptoms improve please take entire course. You have a follow up appointment with your primary care at 1PM 04/14/19. If you develop shortness of breath, difficulty breathing, high fevers, inability to stay hydrated or other new/worsening symptoms please seek care urgently once again. Referrals: Ricardo Luis, [Primary Care Provider] - Medical Decision Making Patient 78-year-old male, coming by his , with chief complaint of fever x3 days. Patient is also endorsing cough that he reports been quite productive. Patient reports that he has chronic shortness of breath that is unchanged. Denies any chest pain. Denies any recent travel. No recent antibiotics. Denies any chest pain. Patient is also endorsing some nasal congestion. On exam, patient appears diaphoretic. He is currently afebrile, did take Tylenol this morning. Had a T-max of 103 ?F per 's report over the past 3 days. He does not appear toxic. Concern for wheezes and crackles in the right lower lobe. Plan to screen for pneumonia with chest x-ray, obtain labs. Discussed plan with the patient his when agreed Patient given DuoNeb for wheezing and shortness of breath WBC 11.8. Creatinine 2.5, this is up from 2.04 on 03/20. He has been elevated to near this level historically. Discussed finding with the patient and his , they are aware of his kidney function. Advised that he may be dehdrated associated with illness, encouraged hydration. He was given a 500cc bolus here. Patietn anemic, this is unchaged. INR 2.2. Glucose 229 which is not out of range of normal for patient. CXR reviewed by radiologist with no acute abnomality noted. Dwespite this, patient will be treated for pneumonia as this is noted on clinical exam. RLL crackles noted. Will treat with Doxycycline and Cefpodoxime. Want prompt follow up for the patient, was able to call and get appointment for first office day next week. He was given strict return precautions. Advised he will need his creatinine reassessed, he will discuss this more with PCP and have this ordered at their discretion. All of their questions and concerns were addressed, they are in agreement wiht this plan. HPI General Mode of arrival: ambulatory. Date/Time Provider Initiated Documentation: 04/10/19 10:12. Limitations to Documentation: no limitations. Information obtained by: patient, family (accompanied by ) and RN notes reviewed. History of Present Illness 78 year old M presents to the emergency department with the chief complaint of fever, Quality is described as other (denies any pain at this time), Patient started experiencing this day(s) (3) and it has been constant. Medication improves symptom(s), No exacerbating factors reported . Patient notes cough, diaphoresis, fever/chills, nausea/vomiting (since resolved) and shortness of breath (chronic, unchaged); denies confusion, chest pain, headaches, loss of appetite, malaise, rash, syncope and weakness. Patient did receive the following treatments prior to arrival, none Related Data Home Medications Medication Instructions Recorded Confirmed multivitamin [Daily Multiple] 1 ea PO DAILY 12/11/16 04/10/19 blood-glucose meter [OneTouch #1 kit 02/12/17 04/10/19 Ultra2] omeprazole 20 mg PO DAILY cap 04/15/18 04/10/19 furosemide 20 mg PO DAILY #90 tab 05/13/18 04/10/19 potassium chloride [Klor-Con M10] 10 meq PO DAILY #90 tabcr 07/09/18 04/10/19 metoprolol tartrate 100 mg tablet 50 mg PO BID #60 tab 08/22/18 04/10/19 glipizide 5 mg tablet 10 mg PO DAILY #180 tab 09/19/18 04/10/19 tamsulosin 0.4 mg capsule 0.4 mg PO DAILY@1800 90 Days #90 09/19/18 04/10/19 cap amlodipine 5 mg tablet 5 mg PO DAILY #90 tab-cap 10/15/18 04/10/19 blood sugar diagnostic strips #90 strip 11/04/18 04/10/19 lancets #90 ea 11/06/18 04/10/19 warfarin 2.5 mg tablet 5 mg PO DIRECTED #180 tab 01/06/19 04/10/19 pravastatin 40 mg tablet 40 mg PO QPM #90 tab 03/11/19 04/10/19 cefpodoxime 200 mg PO Q24H #5 tab 04/10/19 doxycycline hyclate 100 mg PO BID #10 cap 04/10/19 Previous Rx's Medication Instructions Recorded furosemide 20 mg PO DAILY #90 tab 05/13/18 potassium chloride [Klor-Con M10] 10 meq PO DAILY #90 tabcr 07/09/18 metoprolol tartrate 100 mg tablet 50 mg PO BID #60 tab 08/22/18 glipizide 5 mg tablet 10 mg PO DAILY #180 tab 09/19/18 tamsulosin 0.4 mg capsule 0.4 mg PO DAILY@1800 90 Days #90 09/19/18 cap amlodipine 5 mg tablet 5 mg PO DAILY #90 tab-cap 10/15/18 blood sugar diagnostic strips #90 strip 11/04/18 lancets #90 ea 11/06/18 warfarin 2.5 mg tablet 5 mg PO DIRECTED #180 tab 01/06/19 pravastatin 40 mg tablet 40 mg PO QPM #90 tab 03/11/19 cefpodoxime 200 mg PO Q24H #5 tab 04/10/19 doxycycline hyclate 100 mg PO BID #10 cap 04/10/19 Allergies Allergy/AdvReac Type Severity Reaction Status Date / Time No Known Allergies Allergy Verified 04/10/19 10:12 General Stated Complaint: Fever GISSEL: 4 Review of Systems Constitutional Reports as per HPI, Reports chills, Reports fatigue, Reports fever(s) and Denies headache(s) Eyes Reports as per HPI, Denies eye discharge and Denies irritation ENT Reports as per HPI, Denies change in voice, Denies dysphagia, Denies ear discharge, Denies otalgia, Denies headache(s), Reports nasal congestion, Denies nasal discharge, Denies sinus pain, Denies sinus pressure, Denies sore throat, Denies throat swelling and Denies tongue swelling Cardiovascular Reports as per HPI, Denies chest pain and Reports dyspnea (chronic, unchanged) Respiratory Reports as per HPI, Reports chest congestion, Reports cough (productive cough), Denies hemoptysis, Denies pain on inspiration, Denies pain with cough and Reports dyspnea (chronic, unchanged) Gastrointestinal Reports as per HPI, Denies abdominal pain, Denies change in bowel habits, Denies dysphagia, Reports nausea and Reports vomiting (x1 this AM) Integumentary/Breasts Reports as per HPI and Denies rash Neurologic Reports as per HPI and Denies headache(s) Endocrine Reports fatigue Allergic/Immunologic Denies throat swelling and Denies tongue swelling [facility] Medical History Chronic a-fib (Chronic) Nephrolithiasis (Chronic) CHF (congestive heart failure) (Chronic) BPH (benign prostatic hyperplasia) (Chronic) GERD (gastroesophageal reflux disease) (Chronic) Hyperlipidemia (Chronic) 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, Class III, 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) LUCAS on CPAP (Chronic) Essential hypertension, benign (Chronic) Hemothorax on left (Resolved) Surgical History Cholecystectomy (~1985) Colonoscopy - MAC (~2002) Replacement of total knee joint Tonsillectomy and adenoidectomy Social History Smoking/Tobacco Use Status: Never Alcohol Intake: never Drug use: Never Substance use type: does not use Household members: spouse Pets and animals: No What type of physical activity do you participate in: none Special amor needs: No Do you feel safe at home: Yes Do you feel safe in your relationship?: Yes Exam Const General: cooperative, comfortable, no acute distress, well developed, well groomed, diaphoretic and ill appearing acutely and chronically Nutritional Appearance: well nourished and overweight Orientation: alert and awake [facility] Head: normal to inspection, normocephalic and atraumatic Ears: hearing grossly normal bilaterally, external ears normal and TM's normal bilaterally General nose exam: external nose normal and nares normal Face and sinus: normal facial exam, sinuses nontender and face symmetric Mouth: oral mucosae normal, lip normal, tongue normal, oropharynx normal and mucous membranes dry (patient appears dry) Teeth and gingiva: dentition normal Throat: posterior oropharynx normal, tonsils normal and uvula midline Eyes General: appearance normal, both eyes and all related structures Neck Neck: normal visual inspection, full ROM, no lymphadenopathy and no meningeal signs Resp Effort & Inspection: normal respiratory effort, able to speak in complete sentences and no respiratory distress Auscultation: no rales, rhonchi (RLL) and wheezes expiratory wheezes (RLL) Cardio Rate: tachycardic (100) Rhythm: abnormal rhythm irregularly irregular Heart Sounds: S1 normal and S2 normal GI Inspection: obesity Palpation: soft, no hepatosplenomegaly, no guarding and nontender Percussion: normal to percussion Auscultation: normal bowel sounds Skin General skin exam: no rashes or lesions noted Neuro General: alert and awake Cognition: normal cognition Speech: speech normal Gait: normal gait Extrem General: no calf tenderness, no calf tenderness bilaterally and edema (bilateral LE, reported to be chronic) Laterality: bilateral Psych Appearance: grossly normal and well kempt Mental Status: mental status grossly normal Speech and Movement: speech and movement normal Course Vital Signs Temperature 37.2 C 04/10/19 10:09 Pulse 101 H 05/24/19 10:09 Respiratory Rate 18 04/10/19 10:09 Pulse Oximetry 97 04/10/19 10:09 Temperature 37.2 C 04/10/19 10:09 Pulse 101 H 04/10/19 10:09 Respiratory Rate 18 04/10/19 10:09 Blood Pressure Position Sitting 04/10/19 10:09 Pulse Oximetry 97 04/10/19 10:09 Oxygen Delivery Method Room Air 04/10/19 10:09 Oxygen Flow Rate 0 04/10/19 10:09 Pain Level 0 04/10/19 10:09
--- NOTE | 2019-04-10 10:29 | ED.GENADUL_ITS ---
Discharge Plan Disposition Patient Disposition: HOME Condition: Fair Discharge Details Chief Complaint: Fever Clinical Impression: Pneumonia Primary Care Provider: Ricardo Luis ED Provider: Alice Wiseman Home Meds and New Rx's Prescriptions: New doxycycline hyclate 100 mg capsule 100 mg PO BID Qty: 10 RF: 0 cefpodoxime 200 mg tablet 200 mg PO Q24H Qty: 5 RF: 0 Continued glipizide 5 mg tablet 10 mg PO DAILY Qty: 180 RF: 3 tamsulosin 0.4 mg capsule 0.4 mg PO DAILY@1800 90 Days Qty: 90 RF: 3 multivitamin [Daily Multiple] 1 EACH tablet 1 ea PO DAILY RF: 0 blood-glucose meter [[employer] ComputingTouch Ultra2] 1 EACH kit 1 ea Miscellaneous DAILY Qty: 1 RF: 0 omeprazole 20 MG capsule,delayed release(DR/EC) 20 mg PO DAILY RF: 0 furosemide 20 MG tablet 20 mg PO DAILY Qty: 90 RF: 3 potassium chloride [Klor-Con M10] 10 MEQ tablet,ER particles/crystals 10 meq PO DAILY Qty: 90 RF: 1 metoprolol tartrate 100 mg tablet 50 mg PO BID Qty: 60 RF: 4 amlodipine 5 mg tablet 5 mg PO DAILY Qty: 90 RF: 4 OneTouch Ultra Test strip 1 ea Miscellaneous DAILY Qty: 90 RF: 3 lancets [OneTouch UltraSoft Lancets] misc 1 ea Miscellaneous DAILY Qty: 90 RF: 4 warfarin [Jantoven] 2.5 mg tablet 5 mg PO DIRECTED Qty: 180 RF: 6 pravastatin 40 mg tablet 40 mg PO QPM Qty: 90 RF: 3 Discharge Instructions Additional Instructions: Encourage hydration. You may use Tylenol or discomfort or recurrence of fever. Please take antibiotics as prescribed, even if symptoms improve please take entire course. You have a follow up appointment with your primary care at 1PM 04/14/19. If you develop shortness of breath, difficulty breathing, high fevers, inability to stay hydrated or other new/worsening symptoms please seek care urgently once again. Referrals: Ricardo Luis, [Primary Care Provider] - Medical Decision Making Patient 78-year-old male, coming by his , with chief complaint of fever x3 days. Patient is also endorsing cough that he reports been quite productive. Patient reports that he has chronic shortness of breath that is unchanged. Denies any chest pain. Denies any recent travel. No recent antibiotics. D enies any chest pain. Patient is also endorsing some nasal congestion. On exam, patient appears diaphoretic. He is currently afebrile, did take Tylenol this morning. Had a T-max of 103 ?F per 's report over the past 3 days. He does not appear toxic. Concern for wheezes and crackles in the right lower lobe. Plan to screen for pneumonia with chest x-ray, obtain labs. Discussed plan with the patient his when agreed Patient given DuoNeb for wheezing and shortness of breath WBC 11.8. Creatinine 2.5, this is up from 2.04 on 03/20. He has been elevated to near this level historically. Discussed finding with the patient and his , they are aware of his kidney function. Advised that he may be dehdrated associated with illness, encouraged hydration. He was given a 500cc bolus here. Patietn anemic, this is unchaged. INR 2.2. Glucose 229 which is not out of range of normal for patient. CXR reviewed by radiologist with no acute abnomality noted. Dwespite this, patient will be treated for pneumonia as this is noted on clinical exam. RLL crackles noted. Will treat with Doxycycline and Cefpodoxime. Want prompt follow up for the patient, was able to call and get appointment for first office day next week. He was given strict return precautions. Advised he will need his creatinine reassessed, he will discuss this more with PCP and have this ordered at their discretion. All of their questions and concerns were addressed, they are in agreement wiht this plan. HPI General Mode of arrival: ambulatory . Date/Time Provider Initiated Documentation: 04/10/19 10:12 . Limitations to Documentation: no limitations . Information obtained by: patient, family (accompanied by ) and RN notes reviewed . History of Present Illness 78 year old M presents to the emergency department with the chief complaint of fever, Quality is described as other (denies any pain at this time), Patient started experiencing this day(s) (3) and it has been constant. Medication improves symptom(s), No exacerbating factors reported . Patient notes cough, diaphoresis, fever/chills, nausea/vomiting (since resolved) and shortness of breath (chronic, unchaged); denies confusion, chest pain, headaches, loss of appetite, malaise, rash, syncope and weakness. Patient did receive the following treatments prior to arrival, none Related Data Home Medications Medication Instructions Recorded Confirmed multivitamin [Daily Multiple] 1 ea PO DAILY 12/11/16 04/10/19 blood-glucose meter [OneTouch #1 kit 02/12/17 04/10/19 Ultra2] omeprazole 20 mg PO DAILY cap 04/15/18 04/10/19 furosemide 20 mg PO DAILY #90 tab 05/13/18 04/10/19 potassium chloride [Klor-Con M10] 10 meq PO DAILY #90 tabcr 07/09/18 04/10/19 metoprolol tartrate 100 mg tablet 50 mg PO BID #60 tab 08/22/18 04/10/19 glipizide 5 mg tablet 10 mg PO DAILY #180 tab 09/19/18 04/10/19 tamsulosin 0.4 mg capsule 0.4 mg PO DAILY@1800 90 Days #90 09/19/18 04/10/19 cap amlodipine 5 mg tablet 5 mg PO DAILY #90 tab-cap 10/15/18 04/10/19 blood sugar diagnostic strips #90 strip 11/04/18 04/10/19 lancets #90 ea 11/06/18 04/10/19 warfarin 2.5 mg tablet 5 mg PO DIRECTED #180 tab 01/06/19 04/10/19 pravastatin 40 mg tablet 40 mg PO QPM #90 tab 03/11/19 04/10/19 cefpodoxime 200 mg PO Q24H #5 tab 04/10/19 doxycycline hyclate 100 mg PO BID #10 cap 04/10/19 Previous Rx's Medication Instructions Recorded furosemide 20 mg PO DAILY #90 tab 05/13/18 potassium chloride [Klor-Con M10] 10 meq PO DAILY #90 tabcr 07/09/18 metoprolol tartrate 100 mg tablet 50 mg PO BID #60 tab 08/22/18 glipizide 5 mg tablet 10 mg PO DAILY #180 tab 09/19/18 tamsulosin 0.4 mg capsule 0.4 mg PO DAILY@1800 90 Days #90 09/19/18 cap amlodipine 5 mg tablet 5 mg PO DAILY #90 tab-cap 10/15/18 blood sugar diagnostic strips #90 strip 11/04/18 lancets #90 ea 11/06/18 warfarin 2.5 mg tablet 5 mg PO DIRECTED #180 tab 01/06/19 pravastatin 40 mg tablet 40 mg PO QPM #90 tab 03/11/19 cefpodoxime 200 mg PO Q24H #5 tab 04/10/19 doxycycline hyclate 100 mg PO BID #10 cap 04/10/19 Allergies Allergy/AdvReac Type Severity Reaction Status Date / Time No Known Allergies Allergy Verified 04/10/19 10:12 General Stated Complaint: Fever GISSEL: 4 Review of Systems Constitutional Reports as per HPI, Reports chills, Reports fatigue, Reports fever(s) and Denies headache(s) Eyes Reports as per HPI, Denies eye discharge and Denies irritation ENT Reports as per HPI, Denies change in voice, Denies dysphagia, Denies ear discharge, Denies otalgia, Denies headache(s), Reports nasal congestion, Denies nasal discharge, Denies sinus pain, Denies sinus pressure, Denies sore throat, Denies throat swelling and Denies tongue swelling Cardiovascular Reports as per HPI, Denies chest pain and Reports dyspnea (chronic, unchanged) Respiratory Reports as per HPI, Reports chest congestion, Reports cough (productive cough), Denies hemoptysis, Denies pain on inspiration, Denies pain with cough and Reports dyspnea (chronic, unchanged) Gastrointestinal Reports as per HPI, Denies abdominal pain, Denies change in bowel habits, Denies dysphagia, Reports nausea and Reports vomiting (x1 this AM) Integumentary/Breasts Reports as per HPI and Denies rash Neurologic Reports as per HPI and Denies headache(s) Endocrine Reports fatigue Allergic/Immunologic Denies throat swelling and Denies tongue swelling [facility] Medical History Chronic a-fib (Chronic) Nephrolithiasis (Chronic) CHF (congestive heart failure) (Chronic) BPH (benign prostatic hyperplasia) (Chronic) GERD (gastroesophageal reflux disease) (Chronic) Hyperlipidemia (Chronic) 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, Class III, 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) LUCAS on CPAP (Chronic) Essential hypertension, benign (Chronic) Hemothorax on left (Resolved) Surgical History Cholecystectomy (~1985) Colonoscopy - MAC (~2002) Replacement of total knee joint Tonsillectomy and adenoidectomy Social History Smoking/Tobacco Use Status: Never Alcohol Intake: never Drug use: Never Substance use type: does not use Household members: spouse Pets and animals: No What type of physical activity do you participate in: none Special amor needs: No Do you feel safe at home: Yes Do you feel safe in your relationship?: Yes Exam Const General: cooperative, comfortable, no acute distress, well developed, well groomed, diaphoretic and ill appearing acutely and chronically Nutritional Appearance: well nourished and overweight Orientation: alert and awake HENKS Head: normal to inspection, normocephalic and atraumatic Ears: hearing grossly normal bilaterally, external ears normal and TM's normal bilaterally General nose exam: external nose normal and nares normal Face and sinus: normal facial exam, sinuses nontender and face symmetric Mouth: oral mucosae normal, lip normal, tongue normal, oropharynx normal and mucous membranes dry (patient appears dry) Teeth and gingiva: dentition normal Throat: posterior oropharynx normal, tonsils normal and uvula midline Eyes General: appearance normal, both eyes and all related structures Neck Neck: normal visual inspection, full ROM, no lymphadenopathy and no meningeal signs Resp Effort & Inspection: normal respiratory effort, able to speak in complete sentences and no respiratory distress Auscultation: no rales, rhonchi (RLL) and wheezes expiratory wheezes (RLL) Cardio Rate: tachycardic (100) Rhythm: abnormal rhythm irregularly irregular Heart Sounds: S1 normal and S2 normal GI Inspection: obesity Palpation: soft, no hepatosplenomegaly, no guarding and nontender Percussion: normal to percussion Auscultation: normal bowel sounds Skin General skin exam: no rashes or lesions noted Neuro General: alert and awake Cognition: normal cognition Speech: speech normal Gait: normal gait Extrem General: no calf tenderness, no calf tenderness bilaterally and edema (bilateral LE, reported to be chronic) Laterality: bilateral Psych Appearance: grossly normal and well kempt Mental Status: mental status grossly normal Speech and Movement: speech and movement normal Course Vital Signs Temperature 37.2 C 04/10/19 10:09 Pulse 101 H 04/10/19 10:09 Respiratory Rate 18 04/10/19 10:09 Pulse Oximetry 97 04/10/19 10:09 Temperature 37.2 C 04/10/19 10:09 Pulse 101 H 04/10/19 10:09 Respiratory Rate 18 04/10/19 10:09 Blood Pressure Position Sitting 04/10/19 10:09 Pulse Oximetry 97 04/10/19 10:09 Oxygen Delivery Method Room Air 04/10/19 10:09 Oxygen Flow Rate 0 04/10/19 10:09 Pain Level 0 04/10/19 10:09
[2019-04-10] MEDS: Normal Saline 1,000 ML 500 ML IV (10:46)
[2019-04-10 10:56] LABS: Lactate-non-spesis 1.4 mmol/l (0.6-1.4)
[2019-04-10 10:59] LABS: Abs Immature Grans 0.03 k/cumm (0.0-0.09); Absolute Basophil Count 0.02 k/cumm (0.0-0.2); Absolute Eosinophil Count 0.03 k/cumm (0.0-0.7); Absolute Lymphocyte Count 0.73 k/cumm (1.2-3.4); Absolute Monocyte Count 1.12 k/cumm (0.11-0.7); Basophils % 0.2; Eosinophils % 0.3; HCT 36.2 % (40.0-50.0); HGB 11.5 g/dL (13.5-17.5); Immature Grans % 0.3; Lymphocytes % 6.5; Mean Corp. HGB Concentration 31.8 g/dL (32.0-36.0); Mean Corpuscular Volume 88.1 fL (80-95); Mean Platelet Volume 9.7 fL (8.0-11.0); Monocytes % 9.9; Neutrophils % 82.8; Platelet Count 167 x1000/uL (130-400); RBC 4.11 m/cumm (4.50-6.00); RBC Distribution Width 15.3 % (11.8-14.1)
[2019-04-10 11:05] LABS: Absolute Neutrophil Count 9.36 k/cumm (1.2-6.7)
[2019-04-10] MEDS: Albuterol/Ipratropium 3 ML UPD VIAL UPD (11:08)
[2019-04-10 11:14] LABS: ALT 17 U/L (12-78); AST 24 U/L (15-37); Albumin 2.7 g/dL (3.4-5.0); Alkaline Phosphatase 102 U/L (46-116); Anion Gap 9.9 mmol/L (3-11); BUN 22 mg/dL (7-18); Bilirubin, Total 1.6 mg/dL (0.2-1.0); CO2 22.1 mmol/L (21.0-32.0); CREATININE 2.51 mg/dL (0.70-1.30); Calcium 9.3 mg/dL (8.5-10.1); Chloride 104 mmol/L (98-107); Estimated GFR 24.92 (mL/min/1.73m2); Glucose 229 mg/dL (70-100); Magnesium 1.9 mg/dL (1.8-2.4); Potassium 3.8 mmol/L (3.5-5.1); Sodium 136 mmol/L (136-145); Total Protein 7.4 g/dL (6.4-8.2); Troponin I 0.02 ng/mL (0.00-0.06)
--- NOTE | 2019-04-10 11:59 | DI.RAD_ITS ---
SYMPTOMS/DIAGNOSIS: FEVER, COUGH, ? RLL PNEUMONIA PA AND LATERAL CHEST: Comparison is made with 3May19. The heart is mildly enlarged and the aorta is tortuous. Mitral valvular calcifications are seen. The lungs appear clear. No infiltrate, effusion or pulmonary edema is seen. Bridging osteophytes are noted in the thoracic spine. There is a stable mild compression of the mid thoracic vertebral body. IMPRESSION: No acute abnormality.
[2019-04-10 12:27] LABS: INR 2.2 (0.9-1.1); Prothrombin Time 21.8 sec (9.3-11.0)
== END 2019-04-10 12:42 | disposition home or self-care (01) ==
PROVIDERS: Emergency Provider Physician Assistant; PCP Emergency Medicine
DX: J18.9 Pneumonia, unspecified organism (principal); R06.02 Shortness of breath; R11.2 Nausea with vomiting, unspecified; R94.4 Abnormal results of kidney function studies; E11.9 Type 2 diabetes mellitus without complications; I10 Essential (primary) hypertension; Z79.84 Long term (current) use of oral hypoglycemic drugs
CPT/HCPCS: 36415; 80053; 82962; 87040; 93005; 94640; 99285; 71046; 81003; 83605; 83735; 84484; 85025; 85610; 93010; 99284; J7620

== ENCOUNTER 2019-04-12 11:32 | Inpatient (IN) | payer OTHER, SELFPAY ==
--- NOTE | 2019-04-12 11:53 | NUR.NOTE ---
last Vince Pt was seen in our ER for fever diaphoresis and was prescribed antibiotics pt has been taking antibiotics as prescribed
[2019-04-12 11:56] VITALS: BP 100/61; PULSE 69; RESP 17; TEMP 37.1; O2SAT 96
--- NOTE | 2019-04-12 12:20 | DI.RAD_ITS ---
SYMPTOMS/DIAGNOSIS: SOB, COUGH PORTABLE AP CHEST: Comparison 04/10/19. The cardiac silhouette appears stable. The pulmonary vasculature is within normal limits. No definite focal consolidating infiltrates are seen. No effusions or pneumothoraces are present. IMPRESSION: No definite acute pulmonary process.
--- NOTE | 2019-04-12 12:23 | ED.GENADUL_ITS ---
Discharge Plan Disposition Patient Disposition: [facility] INPATIENT Condition: Stable Discharge Details Chief Complaint: Fever Clinical Impression: Pneumonia, Acute kidney injury, Hyperplasia of prostate with urinary retention Admit Date/Time: 04/12/19 14:04 Admit Provider: Tonny Carmona Attending Provider: Tonny Carmona Primary Care Provider: Ricardo Luis ED Provider: Silas Del Cid Discharge Data Discharge Date/Time-TO BE ENTERED AT DEPARTURE: 04/12/19 14:36 Medical Decision Making This is a 78-year-old male with a past medical historyatrial fibrillation, on Coumadin, diabetes, high cholesterol, BPH, obstructive sleep apnea, who presents today for evaluation of cough, fever, decreased urine output, and malaise. The patient was seen and assessed here with less than 48 hours ago, he was diagnosed with suspected pneumonia at that time, instructed to return for repeat labs on an outpatient basis after he refused admission and requested to go home. He was started on antibiotics at that time, discharged home understanding the risks. He returns today with worsening of his symptoms. He has had continued cough, malaise, fever, and decreased urine output physical exam demonstrates signs and symptoms concerning for pneumonia, chest x-ray results confirm this suspicion with a left lower lobe atelectasis versus consolidation. Additionally the patient's renal function is notably worsened however his BUN/creatinine ratio does not appear indicative of a prerenal azotemia. He does appear dehydrated however creatinine is notably elevated with only slightly elevated BUN. He states that he still has not been urinating despite our request here. Bladder scan reveals notable urinary retention. Knox catheter was placed and over 800 cc of urine were received. EKG is unchanged, with the patient's current symptomatology, chest x-ray findings, continued fever, worsening labs, I do feel that he certainly requires admission. We will start broad-spectrum antibiotics, and admit to the floor for further management. The patient was resuscitated with IV fluids. I discussed the case with Dr Carmona, I have extensively reviewed the treatment plan with the patient. I have addressed all patient concerns at this time. I have also discussed the plan with the admitting physician and they agree with the current assessment and plan and have agreed to assume responsibility for the patient. All parties demonstrate verbal understanding and agreement with our assessment and plan at this time. EKG 12: 34 Rate 72, intervals normal except for OH, atrial fibrillation, no significant ST elevations or depressions, Q wave is noted in lead III. Inverted T wave in aVR. COMPARISON: CR XR CHEST 2V PA LATERAL 04/10/2019 11:38 AM FINDINGS: Lungs: There some minimal increased left lung base lateral markings. Pleural space: Unremarkable. No pleural effusion. No pneumothorax. Heart/Mediastinum: Mild cardiomegaly unchanged. Vasculature: Mild aortic ectasia again noted. Bones/joints: Unremarkable. Other findings: The patient is slightly lordotically positioned. IMPRESSION: Left lower lobe atelectasis versus possible early consolidation. COMMENT: Preliminary interpretation is based on receipt of 1 image(s). A final report will be issued subsequently. Dictated and Authenticated by: Sherri Anne MD. Ordering:HIMANSHU Rosen MD HPI General Date/Time Provider Initiated Documentation: 04/12/19 11:36 . HPI Narrative: This is a pleasant 78-year-old male with a past medical history of atrial fibrillation, on Coumadin, diabetes, high cholesterol, BPH, obstructive sleep apnea, who presents today for evaluation of cough, fever, decreased urine output, and malaise. He was seen and assessed within the last 48 hours, he had a thorough and appropriate work-up, however at that time after being recommended to be admitted for pneumonia he decided to go home understanding the risks. He was started on doxycycline and Cefpodoxime. Unfortunately and as expected patient did not do well at home, his cough continued, he is fever persisted, and his urine output decreased. He came into the ER for further evaluation and management. Although he is an extremely pleasant gentleman he is quite the minimizer. He denies any chest pain, shortness of breath, abdominal pain, vomiting, diarrhea, headache, or neck pain. He states that he feels fine and does not have many complaints. His who is at bedside states that he has not been doing well though, and is notably been declining. No other complaints modifying factors at this time. He does state that he has been taking the antibiotics as directed. Related Data Home Medications Medication Instructions Recorded Confirmed multivitamin [Daily Multiple] 1 ea PO DAILY 12/11/16 04/12/19 blood-glucose meter [OneTouch #1 kit 02/12/17 04/12/19 Ultra2] omeprazole 20 mg PO DAILY cap 04/15/18 04/12/19 furosemide 20 mg PO DAILY #90 tab 05/13/18 04/12/19 potassium chloride [Klor-Con M10] 10 meq PO DAILY #90 tabcr 07/09/18 04/12/19 metoprolol tartrate 100 mg tablet 50 mg PO BID #60 tab 08/22/18 04/12/19 glipizide 5 mg tablet 10 mg PO DAILY #180 tab 09/19/18 04/12/19 tamsulosin 0.4 mg capsule 0.4 mg PO DAILY@1800 90 Days #90 09/19/18 04/12/19 cap amlodipine 5 mg tablet 5 mg PO DAILY #90 tab-cap 10/15/18 04/12/19 blood sugar diagnostic strips #90 strip 11/04/18 04/12/19 lancets #90 ea 11/06/18 04/12/19 warfarin 2.5 mg tablet 5 mg PO DIRECTED #180 tab 01/06/19 04/12/19 pravastatin 40 mg tablet 40 mg PO QPM #90 tab 03/11/19 04/12/19 cefpodoxime 200 mg PO Q24H #5 tab 04/10/19 04/12/19 doxycycline hyclate 100 mg PO BID #10 cap 04/10/19 04/12/19 Previous Rx's Medication Instructions Recorded furosemide 20 mg PO DAILY #90 tab 05/13/18 potassium chloride [Klor-Con M10] 10 meq PO DAILY #90 tabcr 07/09/18 metoprolol tartrate 100 mg tablet 50 mg PO BID #60 tab 08/22/18 glipizide 5 mg tablet 10 mg PO DAILY #180 tab 09/19/18 tamsulosin 0.4 mg capsule 0.4 mg PO DAILY@1800 90 Days #90 09/19/18 cap amlodipine 5 mg tablet 5 mg PO DAILY #90 tab-cap 10/15/18 blood sugar diagnostic strips #90 strip 11/04/18 lancets #90 ea 11/06/18 warfarin 2.5 mg tablet 5 mg PO DIRECTED #180 tab 01/06/19 pravastatin 40 mg tablet 40 mg PO QPM #90 tab 03/11/19 cefpodoxime 200 mg PO Q24H #5 tab 04/10/19 doxycycline hyclate 100 mg PO BID #10 cap 04/10/19 Allergies Allergy/AdvReac Type Severity Reaction Status Date / Time No Known Allergies Allergy Verified 04/12/19 11:58 General Stated Complaint: Fever GISSEL: 3 Review of Systems Review of Systems All systems reviewed & are unremarkable except as noted in HPI and below PFSH Medical History Chronic anticoagulation (Chronic) Atrial fibrillation (Chronic) Bladder stone (Resolved 02/14/16) Carpal tunnel syndrome (Chronic) Cellulitis of foot (Resolved 10/17/06) Generalized osteoarthrosis (Chronic) Hiatal hernia (Chronic) Obesity (Chronic 02/11/13) Polyp of colon (Chronic) Rosacea (Chronic) Sexual function problem (Chronic) Sleep apnea (Chronic 02/14/16) Constipation (Chronic) Chronic a-fib (Chronic) Nephrolithiasis (Chronic) CHF (congestive heart failure) (Chronic) BPH (benign prostatic hyperplasia) (Chronic) GERD (gastroesophageal reflux disease) (Chronic) Hyperlipidemia (Chronic) 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 Daughter No problems noted. Social History Smoking/Tobacco Use Status: Never Alcohol Intake: never Drug use: Never Substance use type: does not use Household members: spouse Pets and animals: No What type of physical activity do you participate in: none Special amor needs: No Do you feel safe at home: Yes Do you feel safe in your relationship?: Yes Exam Narrative Exam Narrative: 1.Const: Well-nourished, Well-developed, appearing stated age 2.Eyes: PERRL, no conjunctival injection, and symmetrical lids. 3.ENT: Atraumatic external nose and ears. Notably dry MM. Neck: Symmetric, trachea midline, No thyromegaly. 4.CVS: +S1/S2, No murmurs or gallops. Peripheral pulses 2+ and equal in all extremities. Brisk capillary refill in all extremities. 5.RESP: Mild tachypnea, crackles in the bases, worse on the left. No rhonchi. No wheezes. 6.GI: Soft, Nontender/Nondistended, No hepatosplenomegaly. No guarding or rebound. 7.MSK: Normocephalic/Atraumatic, Extremities w/o deformity or ttp No cyanosis or clubbing, Normal movement of all extremities. No calf tenderness, no swelling or pitting edema on the lower extremities. 8.Skin: Warm, Dry. No rashes or lesions. 9.Neuro: talent development analyst II-XII grossly intact. Sensation grossly intact, no focal neurologic deficits. 10.Psych: (AAO) x3. Appropriate mood and affect Course Vital Signs Temperature 37.1 C 04/12/19 11:56 Pulse 69 04/12/19 11:56 Respiratory Rate 17 04/12/19 11:56 Blood Pressure 100/61 04/12/19 11:56 Pulse Oximetry 96 04/12/19 11:56 Temperature 37.1 C 04/12/19 11:56 Temperature Source Skin 04/12/19 11:56 Pulse 69 04/12/19 11:56 Respiratory Rate 17 04/12/19 11:56 Blood Pressure 100/61 04/12/19 11:56 Blood Pressure Position Sitting 04/12/19 11:56 Pulse Oximetry 96 04/12/19 11:56 Oxygen Delivery Method Room Air 04/12/19 11:56 Oxygen Flow Rate 0 04/12/19 11:56 Pain Level 0 04/12/19 11:56 Lab/Test Results Lab/Test Results: 04/12/19 12:09 Nasopharynx Influenza Types A,B Antigen - Pending 04/12/19 12:03 Blood Blood Culture - Pending 04/12/19 12:03 Blood Blood Culture - Pending
[2019-04-12 12:25] LABS: Lactate 1.7 mmol/L (0.6-1.4)
[2019-04-12] MEDS: Normal Saline 1,000 ML 1000 ML IV (12:29)
--- NOTE | 2019-04-12 12:37 | DI.VRAD_ITS ---
EXAM: XR Chest, 1 View EXAM DATE/TIME: 04/12/2019 12:06 PM CLINICAL HISTORY: 78 years old, male; Signs and symptoms; Shortness of breath; Patient HX: SOB and cough TECHNIQUE: Imaging protocol: XR of the chest, 1 view. COMPARISON: CR XR CHEST 2V PA LATERAL 04/10/2019 11:38 AM FINDINGS: Lungs: There some minimal increased left lung base lateral markings. Pleural space: Unremarkable. No pleural effusion. No pneumothorax. Heart/Mediastinum: Mild cardiomegaly unchanged. Vasculature: Mild aortic ectasia again noted. Bones/joints: Unremarkable. Other findings: The patient is slightly lordotically positioned. IMPRESSION: Left lower lobe atelectasis versus possible early consolidation. COMMENT: Preliminary interpretation is based on receipt of 1 image(s). A final report will be issued subsequently. Dictated and Authenticated by: Sherri Anne MD. Ordering:HIMANSHU Rosen MD
[2019-04-12 12:38] LABS: Abs Immature Grans 0.03 k/cumm (0.0-0.09); Absolute Eosinophil Count 0.01 k/cumm (0.0-0.7); Basophils % 0.1; Eosinophils % 0.1; HGB 10.9 g/dL (13.5-17.5); Immature Grans % 0.2; Lymphocytes % 4.9; Mean Corp. HGB Concentration 32.1 g/dL (32.0-36.0); Mean Corpuscular Hemoglobin 27.8 pg (27.0-33.0); Mean Corpuscular Volume 86.7 fL (80-95); Mean Platelet Volume 9.8 fL (8.0-11.0); Monocytes % 9.5; Neutrophils % 85.2; Platelet Count 189 x1000/uL (130-400); RBC 3.92 m/cumm (4.50-6.00); RBC Distribution Width 15.3 % (11.8-14.1); White Blood Cell Count 14.36 k/cumm (4.4-10.8)
[2019-04-12 12:41] LABS: Absolute Basophil Count 0.01 k/cumm (0.0-0.2); Absolute Monocyte Count 1.36 k/cumm (0.11-0.7); Absolute Neutrophil Count 12.23 k/cumm (1.2-6.7)
[2019-04-12 12:50] LABS: INR 2.6 (0.9-1.1); PTT Activated 38.3 sec (21.0-31.4); Prothrombin Time 26.5 sec (9.3-11.0)
[2019-04-12 12:54] LABS: AST 23 U/L (15-37); Albumin 2.5 g/dL (3.4-5.0); Anion Gap 12.6 mmol/L (3-11); BUN 30 mg/dL (7-18); CO2 19.4 mmol/L (21.0-32.0); CREATININE 3.24 mg/dL (0.70-1.30); Calcium 9.6 mg/dL (8.5-10.1); Chloride 102 mmol/L (98-107); Estimated GFR 18.56 (mL/min/1.73m2); Glucose 205 mg/dL (70-100); NT-proBNP 6709 pg/mL; Potassium 3.6 mmol/L (3.5-5.1); Sodium 134 mmol/L (136-145); Troponin I 0.02 ng/mL (0.00-0.06)
[2019-04-12] MEDS: PIPERACILLIN/TAZO 3.375 GM in Normal Saline 50 ML IVPB (13:30)
[2019-04-12 13:56] LABS: Bilirubin, Total 1.1 mg/dL (0.2-1.0); Total Protein 7.3 g/dL (6.4-8.2)
[2019-04-12 13:57] LABS: ALT 16 U/L (12-78); Alkaline Phosphatase 118 U/L (46-116)
[2019-04-12] MEDS: DOXYCYCLINE 100 MG in Normal Saline 100 ML IVPB (14:00)
[2019-04-12 14:08] LABS: Bilirubin Negative (Negative); Blood Large (Negative); Clarity Clear; Glucose 100 mg/dL (Negative); Ketones Negative (Negative); Leukocyte Esterase Large (Negative); Nitrite Positive (Negative)
[2019-04-12 14:20] LABS: C & S Indicated? Yes; RBC >50 (0-2); WBC >50 HPF (0-5)
[2019-04-12 15:16] LABS: Procalcitonin 0.6 ng/mL
[2019-04-12] MEDS: Potassium Chloride 20 MEQ TABCR 40 MEQ PO (15:19)
[2019-04-12] MEDS: Magnesium Oxide 400 MG TAB PO (15:19)
[2019-04-12 15:25] VITALS: BP 100/63; PULSE 74; RESP 22; TEMP 36.9; O2SAT 98
[2019-04-12] MEDS: Normal Saline 1,000 ML 75 ML IV (15:51)
--- NOTE | 2019-04-12 16:07 | W.PM.HP.N ---
Date of service: 04/12/19 Time of Service: 16:07 Assessment and Plan (1) Fever: Current visit: Yes Status: Acute Evidence of UTI by urinalysis in patient with a history of prior UTIs, stones, and obstructive Uropathy. Also with potential infiltrate by CXR and increase in cough with sputum production, as well as a Procalcitonin of 0.6. - Review of prior culture data with essentially pansensitive E.Coli and Klebsiella. Given urinary retention and KENNETH will check a renal ultrasound. Given potential for concurrent pulmonary infection will also initiate Fluoroquinolone therapy with renally dosed Levofloxacin. Await results of Blood Cultures as well, and monitor closely for development of sepsis. Continue gentle IVFs for now with low threshold for increase in rate. - Potential for pulmonary infection as well - both Pneumonia and UTI either not responding to regimen of oral Cephalosporin and Doxy, or not enough time on these medications. Will continue Levofloxacin as above, and add Vancomycin as well. Check Sputum Culture. (2) Acute renal insufficiency: Current visit: No Status: Acute KENNETH in setting of potential dehydration and obstruction - hydrate gently, renally dose medication as needed, and avoid nephrotoxins. Knox Catheter in place and draining well - will check renal ultrasound. (3) BPH (benign prostatic hyperplasia): Current visit: No Status: Chronic With current Urinary retention in setting of either infection or BPH. Continue a-geraldine, Knox Catheter as above. (4) Atrial fibrillation: Current visit: Yes Status: Chronic Continue BB, AC with coumadin. (5) GERD (gastroesophageal reflux disease): Current visit: No Status: Chronic Continue PPI. (6) Hyperlipidemia: Current visit: No Status: Chronic Currently on statin. (7) Diabetes mellitus type 2 in obese: Current visit: No Status: Chronic Continue Glipizide, and initiate ISS. (8) LUCAS on CPAP: Current visit: No Status: Chronic Ensure nocturnal CPAP. (9) DVT prophylaxis: Current visit: No Status: Acute Monitor daily INR in patient on coumadin. History of Present Illness Chief Complaint: Fevers Narrative: 78-year-old patient with a prior history of BPH, UTI, and urinary retention, nephrolithiasis, Afib, and CHF admitted from [facility] Emergency Department on 04/12 with evidence of UTI. Mr. Winkler has a past Medical History significant for Afib on AC with Warfarin, CKD, and DM. He has a previously known history of CHF, but with last ECHO earlier this month showing evidence of a normal LV & RV function, with potential Diastolic Dysfunction (Unable to ascertain due to afib, but with high filling pressures), Mod MR, as well as PHTN. Other history includes prior renal and bladder calculi, BPH, and previous urinary retention with hydronephrosis. 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 He presented to the ED 2 days ago with complaints of fevers, with reported first onset approximately one week prior. He also reported a concurrent productive cough, but with a negative CXR - treated for presumptive pneumonia with Cefpodoxime and Doxycycline. A urinalysis was not collected at that time. Despite this however the patient's symptoms progressed, and he presented back to the ED with reported ongoing fevers and chills. His actually describes that the patient was unable to warm-up despite her use of 3 blankets, and temperatures of 103 at home. She also reported concurrent difficulty with urinating (small amounts), along with concurrent altered mental status, described not as confusion but more along the lines of the patient acting 'not like himself'. Work-up was significant for a mild leukocytosis, KENNETH with a creatinine well above baseline, elevated BNP, minimally elevated Lactate, and CXR findings significant for LLL Atelectasis vs. Early Consolidation. Following admission a urinalysis was also obtained and abnormal, indicative of a likely UTI, and an elevated Procalcitonin. Review of Systems Review of Systems All systems reviewed & are unremarkable except as noted in HPI and below [facility] Medical History Chronic anticoagulation (Chronic) Atrial fibrillation (Chronic) Bladder stone (Resolved 02/14/16) Carpal tunnel syndrome (Chronic) Cellulitis of foot (Resolved 10/17/06) Generalized osteoarthrosis (Chronic) Hiatal hernia (Chronic) Obesity (Chronic 02/11/13) Polyp of colon (Chronic) Rosacea (Chronic) Sexual function problem (Chronic) Sleep apnea (Chronic 02/14/16) Constipation (Chronic) Chronic a-fib (Chronic) Nephrolithiasis (Chronic) CHF (congestive heart failure) (Chronic) BPH (benign prostatic hyperplasia) (Chronic) GERD (gastroesophageal reflux disease) (Chronic) Hyperlipidemia (Chronic) 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 Daughter No problems noted. Social History Smoking/Tobacco Use Status: Never Alcohol Intake: never Drug use: Never Substance use type: does not use Household members: spouse Pets and animals: No What type of physical activity do you participate in: none Special amor needs: No Do you feel safe at home: Yes Do you feel safe in your relationship?: Yes Meds Home Medications Medication Instructions Recorded Confirmed Type multivitamin [Daily Multiple] 1 ea PO DAILY 12/11/16 04/12/19 History blood-glucose meter [OneTouch #1 kit 02/12/17 04/12/19 History Ultra2] omeprazole 20 mg PO DAILY cap 04/15/18 04/12/19 History furosemide 20 mg PO DAILY #90 tab 05/13/18 04/12/19 Rx potassium chloride [Klor-Con M10] 10 meq PO DAILY #90 tabcr 07/09/18 04/12/19 Rx metoprolol tartrate 100 mg tablet 50 mg PO BID #60 tab 08/22/18 04/12/19 Rx glipizide 5 mg tablet 10 mg PO DAILY #180 tab 09/19/18 04/12/19 Rx tamsulosin 0.4 mg capsule 0.4 mg PO DAILY@1800 90 Days #90 09/19/18 04/12/19 Rx cap amlodipine 5 mg tablet 5 mg PO DAILY #90 tab-cap 10/15/18 04/12/19 Rx blood sugar diagnostic strips #90 strip 11/04/18 04/12/19 Rx lancets #90 ea 11/06/18 04/12/19 Rx warfarin 2.5 mg tablet 5 mg PO DIRECTED #180 tab 01/06/19 04/12/19 Rx pravastatin 40 mg tablet 40 mg PO QPM #90 tab 03/11/19 04/12/19 Rx cefpodoxime 200 mg PO Q24H #5 tab 04/10/19 04/12/19 Rx doxycycline hyclate 100 mg PO BID #10 cap 04/10/19 04/12/19 Rx Allergies Allergy/AdvReac Type Severity Reaction Status Date / Time No Known Allergies Allergy Verified 04/12/19 11:58 Exam Narrative Exam Narrative: General: Patient appears comfortable, NAD, awake and alert, appears acutely ill but not toxic Neck: Supple CV: Irregular, nontachycardic, S1S2, No rubs, murmurs, or gallops. Pulmonary: Mild left basilar crackles, otherwise clear and without rhonchi or wheezing Abdomen: + Bowel Sounds, soft, nontender, nondistended, obese in contour Vascular: +1-2 b/l LE Edema with chronic appearing hyperpigmentation Psych: Normal mood and affect. Results Labs : 04/12/19 12:00 04/12/19 12:00 Laboratory Results - last 24 hr 04/12/19 04/12/19 04/12/19 12:00 12:00 12:00 WBC 14.36 H RBC 3.92 L Hgb 10.9 L Hct 34.0 L MCV 86.7 MCH 27.8 MCHC 32.1 RDW 15.3 H Plt Count 189 MPV 9.8 Immature Gran % 0.2 Neutrophils % 85.2 Lymphocytes % 4.9 Monocytes % 9.5 Eosinophils % 0.1 Basophils % 0.1 Absolute Neutrophils 12.23 H Absolute Lymphocytes 0.70 L Absolute Monocytes 1.36 H Absolute Eosinophils 0.01 Absolute Basophils 0.01 PT INR APTT Sodium 134 L Potassium 3.6 Chloride 102 Carbon Dioxide 19.4 L Anion Gap 12.6 H BUN 30 H Creatinine 3.24 H D Estimated GFR/1.73 m2 18.56 Glucose 205 H Lactate 1.7 H Calcium 9.6 Total Bilirubin 1.1 H AST 23 ALT 16 Alkaline Phosphatase 118 H Troponin I 0.02 NT-Pro-B Natriuret Pep 6709 H Total Protein 7.3 Albumin 2.5 L Procalcitonin Urine Color Urine Clarity Urine pH Ur Specific [place] Urine Protein Urine Ketones Urine Blood Urine Nitrite Urine Bilirubin Urine Urobilinogen Ur Leukocyte Esterase Urine RBC Urine WBC Ur Epithelial Cells Urine Crystals Urine Bacteria Urine Mucus Ur Culture Indicated? Urine Glucose 04/12/19 04/12/19 04/12/19 12:00 12:04 12:06 WBC RBC Hgb Hct MCV MCH MCHC RDW Plt Count MPV Immature Gran % Neutrophils % Lymphocytes % Monocytes % Eosinophils % Basophils % Absolute Neutrophils Absolute Lymphocytes Absolute Monocytes Absolute Eosinophils Absolute Basophils PT Cancelled INR Cancelled APTT Sodium Potassium Chloride Carbon Dioxide Anion Gap BUN Creatinine Estimated GFR/1.73 m2 Glucose Lactate Calcium Total Bilirubin AST ALT Alkaline Phosphatase Troponin I Cancelled NT-Pro-B Natriuret Pep Total Protein Albumin Procalcitonin 0.6 Urine Color Urine Clarity Urine pH Ur Specific [place] Urine Protein Urine Ketones Urine Blood Urine Nitrite Urine Bilirubin Urine Urobilinogen Ur Leukocyte Esterase Urine RBC Urine WBC Ur Epithelial Cells Urine Crystals Urine Bacteria Urine Mucus Ur Culture Indicated? Urine Glucose 04/12/19 04/12/19 04/12/19 12:06 12:21 13:50 WBC RBC Hgb Hct MCV MCH MCHC RDW Plt Count MPV Immature Gran % Neutrophils % Lymphocytes % Monocytes % Eosinophils % Basophils % Absolute Neutrophils Absolute Lymphocytes Absolute Monocytes Absolute Eosinophils Absolute Basophils PT 26.5 H INR 2.6 H APTT 38.3 H Sodium Potassium Chloride Carbon Dioxide Anion Gap BUN Creatinine Estimated GFR/1.73 m2 Glucose Lactate Calcium Total Bilirubin AST ALT Alkaline Phosphatase Troponin I NT-Pro-B Natriuret Pep Cancelled Total Protein Albumin Procalcitonin Urine Color Yellow Urine Clarity Clear Urine pH 7.0 Ur Specific [place] 1.010 Urine Protein 100 H Urine Ketones Negative Urine Blood Large H Urine Nitrite Positive H Urine Bilirubin Negative Urine Urobilinogen 1.0 H Ur Leukocyte Esterase Large H Urine RBC >50 H Urine WBC >50 Ur Epithelial Cells Not Applicable Urine Crystals Not Applicable Urine Bacteria Not Applicable Urine Mucus Not Applicable Ur Culture Indicated? Yes Urine Glucose 100 Last Vital Signs Temp 36.9 C 04/12/19 15:25 Pulse 74 04/12/19 15:25 Resp 22 04/12/19 15:25 BP 100/63 04/12/19 15:25 Pulse Ox 98 04/12/19 15:25
[2019-04-12 16:42] VITALS: PULSE 64
[2019-04-12] MEDS: levoFLOXacin 750 MG/150 ML BAG 100 MG IVPB (16:49)
[2019-04-12] MEDS: Tamsulosin 0.4 MG CAPCR PO (17:02)
[2019-04-12] MEDS: Metoprolol 50 MG TAB PO (19:38)
[2019-04-12] MEDS: Pravastatin 40 MG TAB PO (19:38)
[2019-04-12 20:17] VITALS: BP 122/77; PULSE 86; RESP 17; TEMP 37; O2SAT 96
[2019-04-13] VITALS (12 sets, daily range): BP systolic 102–153; BP diastolic 64–80; PULSE 61–99; RESP 18–30; TEMP 36.8–39.1; O2SAT 94–99
[2019-04-13] MEDS: Acetaminophen 325 MG TAB PO ×2 (01:53→05:55)
[2019-04-13] MEDS: Normal Saline 1,000 ML 75 ML IV ×2 (05:19→22:22)
[2019-04-13 06:58] LABS: Lactate-non-spesis 0.8 mmol/l (0.6-1.4)
[2019-04-13 07:08] LABS: Abs Immature Grans 0.05 k/cumm (0.0-0.09); Absolute Eosinophil Count 0.01 k/cumm (0.0-0.7); Absolute Lymphocyte Count 1.02 k/cumm (1.2-3.4); Basophils % 0.1; Eosinophils % 0.1; HCT 32.8 % (40.0-50.0); HGB 10.4 g/dL (13.5-17.5); Immature Grans % 0.4; Lymphocytes % 7.3; Mean Corp. HGB Concentration 31.7 g/dL (32.0-36.0); Mean Corpuscular Hemoglobin 27.7 pg (27.0-33.0); Mean Corpuscular Volume 87.2 fL (80-95); Mean Platelet Volume 9.6 fL (8.0-11.0); Neutrophils % 83.1; Platelet Count 185 x1000/uL (130-400); RBC 3.76 m/cumm (4.50-6.00); RBC Distribution Width 15.5 % (11.8-14.1); White Blood Cell Count 13.96 k/cumm (4.4-10.8)
[2019-04-13 07:11] LABS: Absolute Basophil Count 0.01 k/cumm (0.0-0.2); Absolute Monocyte Count 1.26 k/cumm (0.11-0.7); INR 3.1 (0.9-1.1); Prothrombin Time 31.7 sec (9.3-11.0)
[2019-04-13 07:14] LABS: Anion Gap 12.7 mmol/L (3-11); BUN 31 mg/dL (7-18); CO2 17.3 mmol/L (21.0-32.0); CREATININE 3.21 mg/dL (0.70-1.30); Calcium 9.6 mg/dL (8.5-10.1); Chloride 109 mmol/L (98-107); Estimated GFR 18.76 (mL/min/1.73m2); Glucose 99 mg/dL (70-100); Magnesium 1.6 mg/dL (1.8-2.4); Potassium 3.8 mmol/L (3.5-5.1); Sodium 139 mmol/L (136-145)
[2019-04-13] MEDS: glipiZIDE 5 MG TAB 10 MG PO (09:07)
[2019-04-13] MEDS: amLODIPine 5 MG TAB PO (09:07)
[2019-04-13] MEDS: Omeprazole 20 MG CAPCR PO (09:07)
[2019-04-13] MEDS: Potassium Chloride 10 MEQ TABCR PO (09:07)
[2019-04-13] MEDS: Multivitamin TAB 1 TAB PO (09:08)
[2019-04-13] MEDS: Metoprolol 50 MG TAB PO ×2 (09:08→19:13)
--- NOTE | 2019-04-13 09:45 | PHARADMIT ---
Addendum entered by Benita Cavazos 04/17/19 16:36: Pharmacy Note Subjective possible prostatitis- treating pt as such per progress notes Objective VS-okay, no fevers in the last 24 hours Cl-108 SCr-3.15 WBC-11.40 CRP-11.97(down) Assessment vanco changed to amoxicillin 500 mg BID levofloxacin continues for prostatitis (day 6 of prolonged course) Plan possible change of abx to augmentin pending sensitivities, watch for micro sensitivity results Addendum entered by Vilma Castillo 04/16/19 15:38: Pharmacy Note Subjective Unknown source of fevers Objective Fevers overnight, SCr up 3.12 (CrCl~21ml/min), BG 82 Micro urine: <10K Micro blood from 04/13/19: no growth flu negative, CT scan today does not show anything Procalcitonin level increased 0.6 to 1.1 INR: 3.1 Assessment blood cultures repeated today Cefepime was reduced to 2gram Q24h...but then dc'd Vanco/Levaquin continue renally adjusted Glipizide dc'd, Omeprazole increased to BID Warfarin continues with no dose adjustment Plan follow repeat BC, Urology consult to r/o prostate abscess? INR/Warfarin/Anbx coverage ORDERED VANCO TROUGH FOR 3AM ON 04/17/19...MAY HAVE TO EXTRAPOLATE, NOT QUITE AT STEADY STATE, but w/frequency of Q36h, didn't want to wait another 3 days Addendum entered by Sindhu Taylor 04/15/19 14:42: Pharmacy Note Subjective question of possibly prostatitis, Continues to have shortness of breath at rest Objective INR 2.8, FS 75, procalcitonin up, BC no growth 48 hrs, UC mixed all less than 10,000col/ml Assessment cefepime Iv added renally dosed, levofloxacn and vancomycin continue Plan follow INR, FS Original Note: Admission Pharmacy Clinical Review pneumonia Code Status Full Code Current Weight 142.7 kg Renally Cleared and Narrow Therapeutic Index Meds Crcl ~27.7 mL/min using adjusted body weight -acetaminophen: recommended Q6H for GFR 10-50 mL/min QTc Value / Action Taken QTc 435 BP Control, Fever BP-102/67 afebrile Electrolytes reviewed Cl 109 mag 1.6 DVT Prophylaxis pt is on warfarin Opiate Usage / Scheduled Bowel Regimen Ordered no/prn Plt/SCr for Heparin / Enoxaparin plt 185 SCr 3.21 INR for Warfarin INR 3.1 H/H stable, WBC/Bands h/h 10.4/32.8 WBC 13.96 Antibiotic appropriateness levofloxacin and vanco for UTI and pneumonia Cultures and Sensitivities blood and urine cultures pending rapid flu negative Surgical ABX d/c within 24 hr n/a DM control / Insulin Dosing BG 99 sliding scale aspart and glipizide ordered Heart Failure (Check EF%) (MIS's, B-Block, Diuretics) amlodipine, metoprolol, IV to PO Switch n/a Home Meds Reviewed separate admin of doxycycline from multivitamin Home Meds Not Ordered cefpodoxime and doxycyline(has other abx ordered), furosemide, losartan, metformin Comments -watch renal function for dose adjustments for vanco and levofloxacin -watch INR and for resume of warfarin dosing (currently ordered but on hold)
[2019-04-13] MEDS: MAGNESIUM SULFATE 4 GM/100 ML BAG IVPB (10:42)
--- NOTE | 2019-04-13 11:31 | W.PM.PROGNOT ---
Date of Service Date of service: 04/13/19 Time of Service: 11:31 Assessment and Plan (1) Fever: Start date: 04/13/19 Start time: 11:43 Current visit: Yes Status: Acute Evidence of UTI by urinalysis in patient with a history of prior UTIs, stones, and obstructive Uropathy. Also with potential infiltrate by CXR and increase in cough with sputum production, as well as a Procalcitonin of 0.6. Blood cultures pending. Feeling better today. Continue levaquin and vancomycin day 2. Fever early this am, none at this time. Continue to monitor. (2) Acute renal insufficiency: Start date: 04/13/19 Start time: 11:47 Current visit: No Status: Acute KENNETH in setting of potential dehydration and obstruction - hydrate gently, renally dose medication as needed, and avoid nephrotoxins. Knox Catheter in place and draining well - will check renal ultrasound. (3) BPH (benign prostatic hyperplasia): Start date: 04/13/19 Start time: 11:47 Current visit: No Status: Chronic With current Urinary retention in setting of either infection or BPH. Continue a-geraldine, Knox Catheter as above. (4) Atrial fibrillation: Start date: 04/13/19 Start time: 11:51 Current visit: Yes Status: Chronic Continue BB, AC with coumadin. (5) GERD (gastroesophageal reflux disease): Start date: 04/13/19 Start time: 11:51 Current visit: No Status: Chronic Continue PPI. (6) Hyperlipidemia: Start date: 04/13/19 Start time: 11:52 Current visit: No Status: Chronic Currently on statin. (7) Diabetes mellitus type 2 in obese: Start date: 04/13/19 Start time: 11:52 Current visit: No Status: Chronic Continue Glipizide, and initiate ISS. Blood glucose 99 by am labs, continue to monitor. (8) LUCAS on CPAP: Start date: 04/13/19 Start time: 11:52 Current visit: No Status: Chronic Ensure nocturnal CPAP. (9) DVT prophylaxis: Start date: 04/13/19 Start time: 11:52 Current visit: No Status: Acute Monitor daily INR in patient on coumadin. Subjective Patient reports: feels better Interval history since last seen: Mr. Winkler is a 78 y.o M admitted for failed outpatient CAP. He was started on vanco and levaquin day 2. He was febrile last night at 37.9; with an elevated WBC and procalcitonin of 0.6. Continue antibiotics and monitor. Blood cultures pending. He is not coughing at this time and endorses feeling better. Continue nebs as needed, updrafts. He is not requiring oxygen, lungs were clear, diminished. He did have +2 pitting edema no JVD, he states edema is normal for him. He denies chest pain, shortness of breath, nausea, vomiting diarrhea. Exam Const General: cooperative, healthy appearing, comfortable and no acute distress Nutritional Appearance: obese Orientation: alert, awake and oriented x3 Chest Chest: normal inspection of the chest Resp Effort & Inspection: normal respiratory effort and able to speak in complete sentences Auscultation: clear to auscultation bilaterally Cardio Jugular venous pressure: no JVD Heart Sounds: S1 normal and S2 normal Other: irregularly irregular GI Inspection: normal to inspection Auscultation: normal bowel sounds Skin General skin exam: no rashes or lesions noted Neuro General: alert, awake and oriented x3 Extrem Right lower extremity: edema Left lower extremity: edema Objective Objective Clinical Data: Abnormal lab results 04/12/19 04/12/19 04/12/19 Range/Units 12:00 12:00 12:00 WBC 14.36 H (4.4-10.8) k/cumm RBC 3.92 L (4.50-6.00) m/cumm Hgb 10.9 L (13.5-17.5) g/dL Hct 34.0 L (40.0-50.0) % MCHC (32.0-36.0) g/dL RDW 15.3 H (11.8-14.1) % Absolute Neutrophils 12.23 H (1.2-6.7) k/cumm Absolute Lymphocytes 0.70 L (1.2-3.4) k/cumm Absolute Monocytes 1.36 H (0.11-0.7) k/cumm PT (9.3-11.0) sec INR (0.9-1.1) APTT (21.0-31.4) sec Sodium 134 L (136-145) mmol/L Chloride (98-107) mmol/L Carbon Dioxide 19.4 L (21.0-32.0) mmol/L Anion Gap 12.6 H (3-11) mmol/L BUN 30 H (7-18) mg/dL Creatinine 3.24 H D (0.70-1.30) mg/dL Glucose 205 H (70-100) mg/dL Lactate 1.7 H (0.6-1.4) mmol/L Magnesium (1.8-2.4) mg/dL Total Bilirubin 1.1 H (0.2-1.0) mg/dL Alkaline Phosphatase 118 H (46-116) U/L NT-Pro-B Natriuret Pep 6709 H ( - 299) pg/mL Albumin 2.5 L (3.4-5.0) g/dL Urine Protein (Negative) mg/dL Urine Blood (Negative) Urine Nitrite (Negative) Urine Urobilinogen (Up TO 0.2) EU/dL Ur Leukocyte Esterase (Negative) Urine RBC (0-2) 04/12/19 04/12/19 04/13/19 Range/Units 12:06 13:50 06:55 WBC (4.4-10.8) k/cumm RBC (4.50-6.00) m/cumm Hgb (13.5-17.5) g/dL Hct (40.0-50.0) % MCHC (32.0-36.0) g/dL RDW (11.8-14.1) % Absolute Neutrophils (1.2-6.7) k/cumm Absolute Lymphocytes (1.2-3.4) k/cumm Absolute Monocytes (0.11-0.7) k/cumm PT 26.5 H 31.7 H (9.3-11.0) sec INR 2.6 H 3.1 H (0.9-1.1) APTT 38.3 H (21.0-31.4) sec Sodium (136-145) mmol/L Chloride (98-107) mmol/L Carbon Dioxide (21.0-32.0) mmol/L Anion Gap (3-11) mmol/L BUN (7-18) mg/dL Creatinine (0.70-1.30) mg/dL Glucose (70-100) mg/dL Lactate (0.6-1.4) mmol/L Magnesium (1.8-2.4) mg/dL Total Bilirubin (0.2-1.0) mg/dL Alkaline Phosphatase (46-116) U/L NT-Pro-B Natriuret Pep ( - 299) pg/mL Albumin (3.4-5.0) g/dL Urine Protein 100 H (Negative) mg/dL Urine Blood Large H (Negative) Urine Nitrite Positive H (Negative) Urine Urobilinogen 1.0 H (Up TO 0.2) EU/dL Ur Leukocyte Esterase Large H (Negative) Urine RBC >50 H (0-2) 04/13/19 04/13/19 Range/Units 06:55 06:55 WBC 13.96 H (4.4-10.8) k/cumm RBC 3.76 L (4.50-6.00) m/cumm Hgb 10.4 L (13.5-17.5) g/dL Hct 32.8 L (40.0-50.0) % MCHC 31.7 L (32.0-36.0) g/dL RDW 15.5 H (11.8-14.1) % Absolute Neutrophils 11.60 H (1.2-6.7) k/cumm Absolute Lymphocytes 1.02 L (1.2-3.4) k/cumm Absolute Monocytes 1.26 H (0.11-0.7) k/cumm PT (9.3-11.0) sec INR (0.9-1.1) APTT (21.0-31.4) sec Sodium (136-145) mmol/L Chloride 109 H (98-107) mmol/L Carbon Dioxide 17.3 L (21.0-32.0) mmol/L Anion Gap 12.7 H (3-11) mmol/L BUN 31 H (7-18) mg/dL Creatinine 3.21 H (0.70-1.30) mg/dL Glucose (70-100) mg/dL Lactate (0.6-1.4) mmol/L Magnesium 1.6 L (1.8-2.4) mg/dL Total Bilirubin (0.2-1.0) mg/dL Alkaline Phosphatase (46-116) U/L NT-Pro-B Natriuret Pep ( - 299) pg/mL Albumin (3.4-5.0) g/dL Urine Protein (Negative) mg/dL Urine Blood (Negative) Urine Nitrite (Negative) Urine Urobilinogen (Up TO 0.2) EU/dL Ur Leukocyte Esterase (Negative) Urine RBC (0-2) Vital Signs Temperature 37.1 C 04/13/19 07:20 Temperature Source Tympanic 04/13/19 07:20 Pulse 83 04/13/19 07:20 Pulse Rhythm Regular 04/13/19 07:21 Respiratory Rate 30 H 04/13/19 07:20 Respiratory Effort 04/13/19 07:21 Respiratory Depth Normal 04/13/19 07:21 Respiratory Pattern Normal 04/13/19 07:21 Blood Pressure 102/67 04/13/19 07:20 Blood Pressure Position Sitting 04/12/19 11:56 Pulse Oximetry 96 04/13/19 07:30 Oxygen Delivery Method Room Air 04/13/19 07:30 Oxygen Flow Rate 0 04/13/19 07:30 Pain Level 0 04/13/19 07:20 Comment 04/13/19 07:20 Intake & Output 04/12/19 04/12/19 04/13/19 11:59 23:59 11:59 Intake Total 1920 / 1920 1800 / 1800 Output Total 1500 / 1500 1100 / 1100 Balance 420 / 420 700 / 700 Weight 324.4 kg 142.7 kg Intake: IV 1550 / 1550 1000 / 1000 Oral 370 / 370 800 / 800 Output: Urine 1500 / 1500 1100 / 1100 Other: Urine Color Light Hui Light Hui Urine Appearance Cloudy Cloudy Laboratory Results WBC 13.96 k/cumm (4.4-10.8) H 04/13/19 06:55 RBC 3.76 m/cumm (4.50-6.00) L 04/13/19 06:55 Hgb 10.4 g/dL (13.5-17.5) L 04/13/19 06:55 Hct 32.8 % (40.0-50.0) L 04/13/19 06:55 MCV 87.2 fL (80-95) 04/13/19 06:55 MCH 27.7 pg (27.0-33.0) 04/13/19 06:55 MCHC 31.7 g/dL (32.0-36.0) L 04/13/19 06:55 RDW 15.5 % (11.8-14.1) H 04/13/19 06:55 Plt Count 185 x1000/uL (130-400) 04/13/19 06:55 MPV 9.6 fL (8.0-11.0) 04/13/19 06:55 Immature Gran % 0.4 04/13/19 06:55 Neutrophils % 83.1 04/13/19 06:55 Lymphocytes % 7.3 04/13/19 06:55 Monocytes % 9.0 04/13/19 06:55 Eosinophils % 0.1 04/13/19 06:55 Basophils % 0.1 04/13/19 06:55 Absolute Neutrophils 11.60 k/cumm (1.2-6.7) H 04/13/19 06:55 Absolute Lymphocytes 1.02 k/cumm (1.2-3.4) L 04/13/19 06:55 Absolute Monocytes 1.26 k/cumm (0.11-0.7) H 04/13/19 06:55 Absolute Eosinophils 0.01 k/cumm (0.0-0.7) 04/13/19 06:55 Absolute Basophils 0.01 k/cumm (0.0-0.2) 04/13/19 06:55 PT 31.7 sec (9.3-11.0) H 04/13/19 06:55 INR 3.1 (0.9-1.1) H 04/13/19 06:55 APTT 38.3 sec (21.0-31.4) H 04/12/19 12:06 Sodium 139 mmol/L (136-145) 04/13/19 06:55 Potassium 3.8 mmol/L (3.5-5.1) 04/13/19 06:55 Chloride 109 mmol/L (98-107) H 04/13/19 06:55 Carbon Dioxide 17.3 mmol/L (21.0-32.0) L 04/13/19 06:55 Anion Gap 12.7 mmol/L (3-11) H 04/13/19 06:55 BUN 31 mg/dL (7-18) H 04/13/19 06:55 Creatinine 3.21 mg/dL (0.70-1.30) H 04/13/19 06:55 Estimated GFR/1.73 m2 18.76 (mL/min/1.73m2) 04/13/19 06:55 Glucose 99 mg/dL (70-100) D 04/13/19 06:55 Lactate 0.8 mmol/l (0.6-1.4) 04/13/19 06:55 Calcium 9.6 mg/dL (8.5-10.1) 04/13/19 06:55 Magnesium 1.6 mg/dL (1.8-2.4) L 04/13/19 06:55 Total Bilirubin 1.1 mg/dL (0.2-1.0) H 04/12/19 12:00 AST 23 U/L (15-37) 04/12/19 12:00 ALT 16 U/L (12-78) 04/12/19 12:00 Alkaline Phosphatase 118 U/L (46-116) H 04/12/19 12:00 Troponin I Cancelled 04/12/19 12:06 NT-Pro-B Natriuret Pep Cancelled 04/12/19 12:21 Total Protein 7.3 g/dL (6.4-8.2) 04/12/19 12:00 Albumin 2.5 g/dL (3.4-5.0) L 04/12/19 12:00 Procalcitonin 0.6 ng/mL 04/12/19 12:00 Urine Color Yellow (Yellow) 04/12/19 13:50 Urine Clarity Clear 04/12/19 13:50 Urine pH 7.0 (5-8) 04/12/19 13:50 Ur Specific [place] 1.010 (1.005-1.025) 04/12/19 13:50 Urine Protein 100 mg/dL (Negative) H 04/12/19 13:50 Urine Ketones Negative mg/dL (Negative) 04/12/19 13:50 Urine Blood Large (Negative) H 04/12/19 13:50 Urine Nitrite Positive (Negative) H 04/12/19 13:50 Urine Bilirubin Negative (Negative) 04/12/19 13:50 Urine Urobilinogen 1.0 EU/dL (Up TO 0.2) H 04/12/19 13:50 Ur Leukocyte Esterase Large (Negative) H 04/12/19 13:50 Urine RBC >50 (0-2) H 04/12/19 13:50 Urine WBC >50 HPF (0-5) 04/12/19 13:50 Ur Epithelial Cells Not Applicable 04/12/19 13:50 Urine Crystals Not Applicable 04/12/19 13:50 Urine Bacteria Not Applicable 04/12/19 13:50 Urine Mucus Not Applicable 04/12/19 13:50 Ur Culture Indicated? Yes 04/12/19 13:50 Urine Glucose 100 mg/dL (Negative) 04/12/19 13:50
[2019-04-13] MEDS: Insulin Aspart 300 UNITS/3 ML PEN SC ×2 (11:48→17:13)
--- NOTE | 2019-04-13 13:59 | CHAPLAIN ---
Sav was watching tv when I visited. He said he is feeling better. He expects his and daughter to be in later today to visit. He is passing the time watching tv. 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
--- NOTE | 2019-04-13 14:19 | PDOC.CMIN ---
- If Service Date Differs Date of service: 04/13/19 Time of Service: 14:19 Care Management Initial Assess REASON FOR HOSPITALIZATION:: Pneumonia ? UTI PAST MEDICAL HISTORY/PAST SURGICAL HISTORY:: Chronic anticoagulation (Chronic). Atrial fibrillation (Chronic). Bladder stone (Resolved 02/14/16). Carpal tunnel syndrome (Chronic). Cellulitis of foot (Resolved 10/17/06). Cholecystectomy (~1985). Colonoscopy - MAC (~2002). Replacement of total knee joint. Tonsillectomy and adenoidectomy. Generalized osteoarthrosis (Chronic). Hiatal hernia (Chronic). Obesity (Chronic 02/11/13). Polyp of colon (Chronic). Rosacea (Chronic). Sexual function problem (Chronic). Sleep apnea (Chronic 02/14/16). Constipation (Chronic). Chronic a-fib (Chronic). Nephrolithiasis (Chronic). CHF (congestive heart failure) (Chronic). BPH (benign prostatic hyperplasia) (Chronic). GERD (gastroesophageal reflux disease) (Chronic). Hyperlipidemia (Chronic). 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 LUCAS on CPAP (Chronic). Essential hypertension, benign (Chronic) PREVIOUS FUNCTIONAL STATUS/SOCIAL/FAMILY SUPPORTS:: 76 y.o. male who lives with his , Lashawn, at their home in [facility]. Retired now after many years working for [employer]. They have one daughter who lives about 6 miles from him and is supportive. CURRENT FUNCTIONAL STATUS:: Sav is well known to this from several past admissions. Sav is lying in bed his spouse is at his side. Sav is trying to nap when CM into visit. His spouse states there have been no changes since last admission. Sav is hopefull to be discharge by [facility]. He appreciates being home with his spouse and family. ADVANCE DIRECTIVES:: None on file Has patient been provided with information about the portal?: Yes Did the patient sign up for the portal?: No (enrolled) CODE STATUS:: Full Code INSURANCE COVERAGE / FINANCIAL ISSUES:: [employer], Medicare CURRENT HOME/COMMUNITY SERVICES/EQUIPMENT:: Uses a cane, FWW, and CPAP through [employer]. PRIMARY CARE PHYSICIAN:: Ricardo Luis MD POTENTIAL DISCHARGE NEEDS:: Appointment on 04/14/19 already scheduled as an ED follow up appt. PATIENT/FAMILY EDUCATION NEEDS:: Discharge education, limitations and follow up plan of care including ask me three and self management. ANTICIPATED BARRIERS TO DISCHARGE:: None TRANSPORTATION:: Via private car with spouse at time of discharge. PLAN:: Sav is receiving IV antibiotics levaquin and vancomycin as well as rehydration with IV fluids. He will be discharged home when medically ready per provider. He has a follow up scheduled with primary care office on 04/14/19 after his last ED visit. This may need to be rescheduled due to his inpatient status. CM to continue to provide support to Pt and family ongoing discharge planning.
--- NOTE | 2019-04-13 14:29 | INITIAL_ITS ---
- If Service Date Differs Date of service: 04/13/19 Time of Service: 14:19 Care Management Initial Assess REASON FOR HOSPITALIZATION:: Pneumonia ? UTI PAST MEDICAL HISTORY/PAST SURGICAL HISTORY:: Chronic anticoagulation (Chronic). Atrial fibrillation (Chronic). Bladder stone (Resolved 02/14/16). Carpal tunnel syndrome (Chronic). Cellulitis of foot (Resolved 10/17/06). Cholecystectomy (~1985). Colonoscopy - MAC (~2002). Replacement of total knee joint. Tonsillectomy and adenoidectomy. Generalized osteoarthrosis (Chronic). Hiatal hernia (Chronic). Obesity (Chronic 02/11/13). Polyp of colon (Chronic). Rosacea (Chronic). Sexual function problem (Chronic). Sleep apnea (Chronic 02/14/16). Constipation (Chronic). Chronic a-fib (Chronic). Nephrolithiasis (Chronic). CHF (congestive heart failure) (Chronic). BPH (benign prostatic hyperplasia) (Chronic). GERD (gastroesophageal reflux disease) (Chronic). Hyperlipidemia (Chronic). 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 LUCAS on CPAP (Chronic). Essential hypertension, benign (Chronic) PREVIOUS FUNCTIONAL STATUS/SOCIAL/FAMILY SUPPORTS:: 76 y.o. male who lives with his , Lashawn, at their home in [place]. Retired now after many years working for [employer]. They have one daughter who lives about 6 miles from him and is supportive. CURRENT FUNCTIONAL STATUS:: Sav is well known to this from several past admissions. Sav is lying in bed his spouse is at his side. Sav is trying to nap when CM into visit. His spouse states there have been no changes since last admission. Sav is hopefull to be [facility]. He appreciates being home with his spouse and family. ADVANCE DIRECTIVES:: None on file Has patient been provided with information about the portal?: Yes Did the patient sign up for the portal?: No (enrolled) CODE STATUS:: Full Code INSURANCE COVERAGE / FINANCIAL ISSUES:: Aet[employer], Medicare CURRENT HOME/COMMUNITY SERVICES/EQUIPMENT:: Uses a cane, FWW, and CPAP through [employer]. PRIMARY CARE PHYSICIAN:: Ricardo Luis MD POTENTIAL DISCHARGE NEEDS:: Appointment on 04/14/19 already scheduled as an ED follow up appt. PATIENT/FAMILY EDUCATION NEEDS:: Discharge education, limitations and follow up plan of care including ask me three and self management. ANTICIPATED BARRIERS TO DISCHARGE:: None TRANSPORTATION:: Via private car with spouse at time of discharge. PLAN:: Sav is receiving IV antibiotics levaquin and vancomycin as well as rehydration with IV fluids. He will be discharged home when medically ready per provider. He has a follow up scheduled with primary care office on 04/14/19 after his last ED visit. This may need to be rescheduled due to his inpatient status. CM to continue to provide support to Pt and family ongoing discharge planning.
[2019-04-13] MEDS: Tamsulosin 0.4 MG CAPCR PO (17:46)
[2019-04-13] MEDS: Pravastatin 40 MG TAB PO (19:14)
--- NOTE | 2019-04-13 21:21 | NUR.NOTE ---
Nursing Note: Pt has audible wheezes. Had coughed out thick yellow secretions, unable to collect sputum for lab specimen, pt is not aware at that time. Education provided and needs reinforcement. Knox drained dark robles urine for 900 cc. Denied of pain. Bipap in progress.
[2019-04-14] VITALS (14 sets, daily range): BP systolic 119–170; BP diastolic 76–90; PULSE 64–107; RESP 21–22; TEMP 36.5–38.5; O2SAT 97–98
[2019-04-14 06:58] LABS: Abs Immature Grans 0.05 k/cumm (0.0-0.09); Absolute Basophil Count 0.02 k/cumm (0.0-0.2); Absolute Eosinophil Count 0.05 k/cumm (0.0-0.7); Absolute Lymphocyte Count 1.32 k/cumm (1.2-3.4); Absolute Monocyte Count 1.06 k/cumm (0.11-0.7); Absolute Neutrophil Count 9.71 k/cumm (1.2-6.7); Basophils % 0.2; Eosinophils % 0.4; HCT 31.9 % (40.0-50.0); HGB 10.2 g/dL (13.5-17.5); Immature Grans % 0.4; Lymphocytes % 10.8; Mean Corpuscular Hemoglobin 27.7 pg (27.0-33.0); Mean Corpuscular Volume 86.7 fL (80-95); Mean Platelet Volume 9.8 fL (8.0-11.0); Monocytes % 8.7; Neutrophils % 79.5; Platelet Count 203 x1000/uL (130-400); RBC 3.68 m/cumm (4.50-6.00); RBC Distribution Width 15.5 % (11.8-14.1); White Blood Cell Count 12.21 k/cumm (4.4-10.8)
[2019-04-14 07:05] LABS: Prothrombin Time 24.7 sec (9.3-11.0)
[2019-04-14 07:07] LABS: BUN 32 mg/dL (7-18); CREATININE 2.86 mg/dL (0.70-1.30); Calcium 9.5 mg/dL (8.5-10.1); Chloride 106 mmol/L (98-107); Estimated GFR 21.44 (mL/min/1.73m2); Glucose 89 mg/dL (70-100); Magnesium 2.2 mg/dL (1.8-2.4); Potassium 3.9 mmol/L (3.5-5.1); Sodium 135 mmol/L (136-145)
[2019-04-14 07:13] LABS: INR 2.4 (0.9-1.1)
--- NOTE | 2019-04-14 07:52 | DI.US_ITS ---
SYMPTOM/DIAGNOSIS: KENNETH, URINARY RETENTION RENAL ULTRASOUND: Routine examination. Comparison is made with 08/13/18. Comparison CT scan is 09/09/18. The left kidney measures 15 cm. in length. There are several echogenic foci within the kidney, consistent with patient's known renal stones. No hydronephrosis is identified. No solid renal mass is present. There is blood flow to the left kidney. The right kidney measures 14.6 cm. long. There are again seen multiple echogenic shadowing foci consistent with non obstructing stones. These can be seen on the CT scan from 09/09/18. There are renal cysts present on the right kidney, the largest is seen superiorly and measures 8.6 by 6.1 by 8.4 cm. There is blood flow seen to the right kidney. The urinary bladder is incompletely visualized. A griffin catheter is in place. A volume of 16 cc's was measured. The ureteral jets were not visualized during the examination. IMPRESSION: 1. Bilateral nephrolithiasis. 2. Right renal cysts. 3. No evidence of obstructive uropathy.
[2019-04-14] MEDS: Potassium Chloride 10 MEQ TABCR PO (08:16)
[2019-04-14] MEDS: glipiZIDE 5 MG TAB 10 MG PO (08:17)
[2019-04-14] MEDS: Omeprazole 20 MG CAPCR PO (08:17)
[2019-04-14] MEDS: Multivitamin TAB 1 TAB PO (08:17)
[2019-04-14] MEDS: Metoprolol 50 MG TAB PO ×2 (08:17→19:41)
[2019-04-14] MEDS: amLODIPine 5 MG TAB PO (08:18)
[2019-04-14] MEDS: Normal Saline Flush 10 ML SYR IVP ×3 (08:19→16:18)
[2019-04-14] MEDS: Albuterol/Ipratropium 3 ML UPD VIAL UPD (09:54)
[2019-04-14] MEDS: Acetaminophen 325 MG TAB PO (11:04)
--- NOTE | 2019-04-14 11:42 | W.INDIABCONS ---
Date of service: 04/14/19 Time of Service: 11:42 Diabetes Inpatient Consult DESCRIPTION/ASSESSMENT: Appreciate diabetes consult for Sav Winkler who is hospitalized with urinary involvement. BMI 41 A1c 6.0 taking Glipizide 10mg. Blood sugars 73-167 after admission also treated with sensitive insulin correction. He is eating 39-58grams carbohydrate per meal. A1c in pre-diabetes range on minimal medication regimen. INTERVENTION: No intervention at this time. He was visited at his last inpatient stay and had no concerns or voiced needs. PLAN: Will follow blood sugars. Will f/u if deemed helpful. Time Spent in Nutritional Counseling and Treatment: 0
--- NOTE | 2019-04-14 11:45 | W.PM.PROGNOT ---
Date of Service Date of service: 04/14/19 Time of Service: 11:45 Assessment and Plan (1) Fever: Current visit: Yes Status: Acute With urine culture growing <10,000 colonies gram negative rods. Possible prostatitis. Also with potential infiltrate by CXR and increase in cough with sputum production, as well as a Procalcitonin of 0.6 on admission. Was febrile to 38 5 this morning, fever curve appears to be declining. Blood cultures with no growth at 24 hours. Continue current treatment with Levaquin and vancomycin, currently day #3. Repeat procalcitonin in the morning. Continue to monitor closely. (2) Acute renal insufficiency: Current visit: No Status: Acute Creatinine improving but not yet at baseline. Renal ultrasound shows bilateral nephrolithiasis, nonobstructing, no hydronephrosis, right renal cyst, no evidence of obstructive uropathy. He received IV fluids overnight. Appears mildly fluid overloaded today. We will give Lasix IV and continue to follow BMP. Daily weights. (3) BPH (benign prostatic hyperplasia): Current visit: No Status: Chronic With current Urinary retention in setting of either infection or BPH. Continue a-geraldine, Knox Catheter in place. (4) GERD (gastroesophageal reflux disease): Current visit: No Status: Chronic Continue PPI. (5) Atrial fibrillation: Current visit: Yes Status: Chronic With heart rate irregularly irregular, not tachycardic. INR currently therapeutic at 2.4. Resume Coumadin. Continue beta-geraldine AC. Continue to monitor daily INR. (6) Hyperlipidemia: Current visit: No Status: Chronic Continue statin. (7) Diabetes mellitus type 2 in obese: Current visit: No Status: Chronic Continue Glipizide, short acting insulin via sliding scale. Blood glucose 89 by morning labs. Continue to monitor blood glucose before meals. (8) LUCAS on CPAP: Current visit: No Status: Chronic Continue CPAP. (9) DVT prophylaxis: Current visit: No Status: Acute Therapeutic on Coumadin. Continue to monitor daily INR Subjective Interval history since last seen: Mr. Winkler reports shortness of breath at rest, he has an occasional cough productive of clear, frothy sputum. He denies wheezing. He denies chest pain/pressure or palpitations. He denies dizziness, abdominal pain, nausea, vomiting. He is eating and drinking. He is moving his bowels. He had a renal ultrasound this morning that did not show evidence of obstructive uropathy. His nurse reports that he was febrile this morning, has increased work of breathing and has an irregular heart rate. He has a history of atrial fibrillation. Exam Narrative Exam Narrative: General: elderly man sitting in recliner with legs elevated. He is awake and alert. He has shortness of breath at rest. HEENT: Normocephalic, atraumatic, pupils equal round, extraocular movements intact, mucous membranes moist. Neck: Supple CV: Irregularly irregular. Non-tachycardic. No murmur appreciated. Pulmonary: Appears to have increased work of breathing. Is short of breath at rest. Lung sounds with rales to the right base. No wheezing. Abdomen: Large, round abdomen, normal active bowel sounds in all 4 quadrants, soft, nontender, nondistended. Vascular: +1 bilateral lower extremity edema, TEDs on bilaterally. Hypertrophic toenails. DP pulses palpable bilaterally. Psych: Normal mood and affect. Objective Objective Clinical Data: Abnormal lab results 04/14/19 04/14/19 04/14/19 Range/Units 06:25 06:25 06:25 WBC 12.21 H (4.4-10.8) k/cumm RBC 3.68 L (4.50-6.00) m/cumm Hgb 10.2 L (13.5-17.5) g/dL Hct 31.9 L (40.0-50.0) % RDW 15.5 H (11.8-14.1) % Absolute Neutrophils 9.71 H (1.2-6.7) k/cumm Absolute Monocytes 1.06 H (0.11-0.7) k/cumm PT 24.7 H D (9.3-11.0) sec INR 2.4 H D (0.9-1.1) Sodium 135 L (136-145) mmol/L Carbon Dioxide 16.0 L (21.0-32.0) mmol/L Anion Gap 13.0 H (3-11) mmol/L BUN 32 H (7-18) mg/dL Creatinine 2.86 H (0.70-1.30) mg/dL Vital Signs Temperature 38.5 C H 04/14/19 11:04 Temperature Source Tympanic 04/14/19 08:00 Pulse 107 H 04/14/19 08:00 Pulse Rhythm Irregular 04/14/19 10:18 Respiratory Rate 21 04/14/19 08:00 Respiratory Effort 04/14/19 10:18 Respiratory Depth Deep 04/14/19 10:18 Respiratory Pattern Tachypnea 04/14/19 10:18 Blood Pressure 170/83 H 04/14/19 08:00 Blood Pressure Position Sitting 04/12/19 11:56 Pulse Oximetry 97 04/14/19 08:00 Oxygen Delivery Method Room Air 04/14/19 08:00 Oxygen Flow Rate 0 04/14/19 08:00 Pain Level 0 04/13/19 23:15 Comment 04/14/19 08:00 Intake & Output 04/13/19 04/13/19 04/14/19 11:59 23:59 11:59 Intake Total 1800 / 3940 2140 / 3940 1535 / 1535 Output Total 1100 / 2475 1375 / 2475 1250 / 1250 Balance 700 / 1465 765 / 1465 285 / 285 Intake: IV 1000 / 2100 1100 / 2100 1055 / 1055 Oral 800 / 1840 1040 / 1840 480 / 480 Output: Urine 1100 / 2475 1375 / 2475 1250 / 1250 Other: Urine Color Light Hui Dark Hui Dark Hui Urine Appearance Cloudy Mucous Threads Cloudy Sediment Stool Size Copious Stool Characteristics Soft Formed Brown Laboratory Results WBC 12.21 k/cumm (4.4-10.8) H 04/14/19 06:25 RBC 3.68 m/cumm (4.50-6.00) L 04/14/19 06:25 Hgb 10.2 g/dL (13.5-17.5) L 04/14/19 06:25 Hct 31.9 % (40.0-50.0) L 04/14/19 06:25 MCV 86.7 fL (80-95) 04/14/19 06:25 MCH 27.7 pg (27.0-33.0) 04/14/19 06:25 MCHC 32.0 g/dL (32.0-36.0) 04/14/19 06:25 RDW 15.5 % (11.8-14.1) H 04/14/19 06:25 Plt Count 203 x1000/uL (130-400) 04/14/19 06:25 MPV 9.8 fL (8.0-11.0) 04/14/19 06:25 Immature Gran % 0.4 04/14/19 06:25 Neutrophils % 79.5 04/14/19 06:25 Lymphocytes % 10.8 04/14/19 06:25 Monocytes % 8.7 04/14/19 06:25 Eosinophils % 0.4 04/14/19 06:25 Basophils % 0.2 04/14/19 06:25 Absolute Neutrophils 9.71 k/cumm (1.2-6.7) H 04/14/19 06:25 Absolute Lymphocytes 1.32 k/cumm (1.2-3.4) 04/14/19 06:25 Absolute Monocytes 1.06 k/cumm (0.11-0.7) H 04/14/19 06:25 Absolute Eosinophils 0.05 k/cumm (0.0-0.7) 04/14/19 06:25 Absolute Basophils 0.02 k/cumm (0.0-0.2) 04/14/19 06:25 PT 24.7 sec (9.3-11.0) H D 04/14/19 06:25 INR 2.4 (0.9-1.1) H D 04/14/19 06:25 APTT 38.3 sec (21.0-31.4) H 04/12/19 12:06 Sodium 135 mmol/L (136-145) L 04/14/19 06:25 Potassium 3.9 mmol/L (3.5-5.1) 04/14/19 06:25 Chloride 106 mmol/L (98-107) 04/14/19 06:25 Carbon Dioxide 16.0 mmol/L (21.0-32.0) L 04/14/19 06:25 Anion Gap 13.0 mmol/L (3-11) H 04/14/19 06:25 BUN 32 mg/dL (7-18) H 04/14/19 06:25 Creatinine 2.86 mg/dL (0.70-1.30) H 04/14/19 06:25 Estimated GFR/1.73 m2 21.44 (mL/min/1.73m2) 04/14/19 06:25 Glucose 89 mg/dL (70-100) 04/14/19 06:25 Lactate 0.8 mmol/l (0.6-1.4) 04/13/19 06:55 Calcium 9.5 mg/dL (8.5-10.1) 04/14/19 06:25 Magnesium 2.2 mg/dL (1.8-2.4) 04/14/19 06:25 Total Bilirubin 1.1 mg/dL (0.2-1.0) H 04/12/19 12:00 AST 23 U/L (15-37) 04/12/19 12:00 ALT 16 U/L (12-78) 04/12/19 12:00 Alkaline Phosphatase 118 U/L (46-116) H 04/12/19 12:00 Troponin I Cancelled 04/12/19 12:06 NT-Pro-B Natriuret Pep Cancelled 04/12/19 12:21 Total Protein 7.3 g/dL (6.4-8.2) 04/12/19 12:00 Albumin 2.5 g/dL (3.4-5.0) L 04/12/19 12:00 Procalcitonin 0.6 ng/mL 04/12/19 12:00 Urine Color Yellow (Yellow) 04/12/19 13:50 Urine Clarity Clear 04/12/19 13:50 Urine pH 7.0 (5-8) 04/12/19 13:50 Ur Specific [place] 1.010 (1.005-1.025) 04/12/19 13:50 Urine Protein 100 mg/dL (Negative) H 04/12/19 13:50 Urine Ketones Negative mg/dL (Negative) 04/12/19 13:50 Urine Blood Large (Negative) H 04/12/19 13:50 Urine Nitrite Positive (Negative) H 04/12/19 13:50 Urine Bilirubin Negative (Negative) 04/12/19 13:50 Urine Urobilinogen 1.0 EU/dL (Up TO 0.2) H 04/12/19 13:50 Ur Leukocyte Esterase Large (Negative) H 04/12/19 13:50 Urine RBC >50 (0-2) H 04/12/19 13:50 Urine WBC >50 HPF (0-5) 04/12/19 13:50 Ur Epithelial Cells Not Applicable 04/12/19 13:50 Urine Crystals Not Applicable 04/12/19 13:50 Urine Bacteria Not Applicable 04/12/19 13:50 Urine Mucus Not Applicable 04/12/19 13:50 Ur Culture Indicated? Yes 04/12/19 13:50 Urine Glucose 100 mg/dL (Negative) 04/12/19 13:50
[2019-04-14] MEDS: Furosemide 40 MG/4 ML VIAL IVP (12:17)
--- NOTE | 2019-04-14 14:21 | PDOC.CMPRO ---
Care Management Progress Note S/O: Sav was sitting up in his chair, visiting with his and having lunch when CM met with him. He shared no concerns and reported he did not anticipate discharging today. Sav remains on IV ABX for empiric MRSA coverage and prostatitis per MD. He is benefiting from PRN breathing treatments and per MD report sputum cultures pending as well. Sav reports he was having his INR checked monthly at the [facility] lab. Upon his last discharge he had new orders for [facility] services which he and his report ended some time ago but report finding the services helpful in recovery. Sav used good humor appropriately and appeared to be in good spirits. CM will continue to follow. A: 78 year old male admitted to [facility] 04/12/19 for Pneumonia P: Sav will return home when ready per MD; no additional services anticipated at this time. CM will continue to follow and support discharge planning considerations.
--- NOTE | 2019-04-14 14:39 | CMPROGNOTE_ITS ---
Care Management Progress Note S/O: Sav was sitting up in his chair, visiting with his and having lunch when CM met with him. He shared no concerns and reported he did not anticipate discharging today. Sav remains on IV ABX for empiric MRSA coverage and prostatitis per MD. He is benefiting from PRN breathing treatments and per MD report sputum cultures pending as well. Sav reports he was having his INR checked monthly at the [facility] lab. Upon his last discharge he had new orders for [facility] services which he and his report ended some time ago but report finding the services helpful in recovery. Sav used good humor appropriately and appeared to be in good spirits. CM will continue to follow. A: 78 year old male admitted to [facility] 04/12/19 for Pneumonia P: Sav will return home when ready per MD; no additional services anticipated at this time. CM will continue to follow and support discharge planning considerations.
[2019-04-14] MEDS: levoFLOXacin 750 MG/150 ML BAG 100 MG IVPB (16:17)
[2019-04-14] MEDS: Tamsulosin 0.4 MG CAPCR PO (17:43)
[2019-04-14] MEDS: Pravastatin 40 MG TAB PO (19:41)
[2019-04-15] VITALS (10 sets, daily range): BP systolic 113–127; BP diastolic 67–82; PULSE 67–93; RESP 18–22; TEMP 37.2–38.1; O2SAT 96–97
[2019-04-15 07:09] LABS: Abs Immature Grans 0.04 k/cumm (0.0-0.09); Absolute Basophil Count 0.02 k/cumm (0.0-0.2); Absolute Eosinophil Count 0.03 k/cumm (0.0-0.7); Absolute Lymphocyte Count 1.11 k/cumm (1.2-3.4); Absolute Monocyte Count 1.13 k/cumm (0.11-0.7); Absolute Neutrophil Count 7.48 k/cumm (1.2-6.7); Basophils % 0.2; Eosinophils % 0.3; HGB 9.9 g/dL (13.5-17.5); Immature Grans % 0.4; Lymphocytes % 11.3; Mean Corp. HGB Concentration 31.9 g/dL (32.0-36.0); Mean Corpuscular Hemoglobin 27.7 pg (27.0-33.0); Mean Corpuscular Volume 86.6 fL (80-95); Mean Platelet Volume 9.4 fL (8.0-11.0); Monocytes % 11.5; Neutrophils % 76.3; Platelet Count 211 x1000/uL (130-400); RBC 3.58 m/cumm (4.50-6.00); RBC Distribution Width 15.6 % (11.8-14.1); White Blood Cell Count 9.81 k/cumm (4.4-10.8)
[2019-04-15 07:15] LABS: Anion Gap 14.4 mmol/L (3-11); BUN 33 mg/dL (7-18); CO2 16.6 mmol/L (21.0-32.0); CREATININE 3.06 mg/dL (0.70-1.30); Calcium 9.4 mg/dL (8.5-10.1); Chloride 106 mmol/L (98-107); Estimated GFR 19.83 (mL/min/1.73m2); Glucose 80 mg/dL (70-100); Potassium 3.7 mmol/L (3.5-5.1); Sodium 137 mmol/L (136-145)
[2019-04-15 07:17] LABS: INR 2.8 (0.9-1.1); Prothrombin Time 28.4 sec (9.3-11.0)
[2019-04-15 07:41] LABS: Diff Comment RBC Morph Reviewed; Hypochromasia 1+; Polychromasia Present
[2019-04-15 07:55] LABS: Procalcitonin 1.1 ng/mL
[2019-04-15] MEDS: Potassium Chloride 10 MEQ TABCR PO (08:01)
[2019-04-15] MEDS: Normal Saline Flush 10 ML SYR IVP ×4 (08:01→20:44)
[2019-04-15] MEDS: glipiZIDE 5 MG TAB 10 MG PO (08:02)
[2019-04-15] MEDS: amLODIPine 5 MG TAB PO (08:02)
[2019-04-15] MEDS: Omeprazole 20 MG CAPCR PO (08:02)
[2019-04-15] MEDS: Metoprolol 50 MG TAB PO ×2 (08:03→19:28)
[2019-04-15] MEDS: Multivitamin TAB 1 TAB PO (08:03)
[2019-04-15 11:04] LABS: C-Reactive Protein 13.99 mg/dL (0.0-0.3)
[2019-04-15] MEDS: Acetaminophen 325 MG TAB PO ×2 (11:31→19:27)
[2019-04-15] MEDS: Nystatin POWDER 60 GM JAR TP ×2 (11:32→19:29)
[2019-04-15 12:12] LABS: ESR 113 MM/HR (1-20)
--- NOTE | 2019-04-15 12:19 | W.INDIABCONS ---
Date of service: 04/15/19 Time of Service: 12:19 Diabetes Inpatient Consult DESCRIPTION/ASSESSMENT: Appreciate diabetes consult for Mr. Winkler who is hospitalized with urinary issues. BMI 41 A1c 6.0 taking Glipizide 10mg. GFR 19 Blood sugars since yesterday 62-134. Met with Mr. Winkler and his . States he did not feel symptoms of hypoglycemia last evening. Discussed whether he feels low blood sugars at home and he says no. His notes at times he is a little confused or fuzzy-headed and that he has fallen. He does not monitor his blood sugars at home. He states he has lost 50 pounds over the past year without effort, but he has had a decreased appetite. 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 INTERVENTION: Discussed his symptoms and possible solutions. He voices whether he could cut his Glipizide dose by 1/2 given his low blood sugars here and possibly at home, his need to 'feed' low blood sugars with snacking. Discussed having slightly higher blood sugars for this 78 year old with some impaired kidney functioning based on eGRF. PLAN: Will discuss with Hospitalists recommendation to decrease Glipizide to 5mg daily. Will follow blood sugars Time Spent in Nutritional Counseling and Treatment: 15 minutes face to face
--- NOTE | 2019-04-15 12:36 | PGE_ITS ---
Date of Service Date of service: 04/15/19 Time of Service: 12:34 Assessment and Plan (1) Fever: Current visit: Yes Status: Acute With urine culture growing only <10,000 colonies of enterococcus and klebsiella with a positive UA and urinary retention, Possible prostatitis. CRP markedly elevated, >13. Refused rectal exam today. Also with potential infiltrate by CXR and increase in cough with sputum production, as well as a Procalcitonin of 0.6 on admission, repeated today and found to be elevated to 1.1. Was febrile to 38.1 again today. Blood cultures with no growth to date. C ontinue current treatment with Levaquin and vancomycin, currently day #4. Add renally dosed Cefepime. Repeat labs in the morning. Continue to monitor closely. (2) Acute renal insufficiency: Current visit: No Status: Acute Renal function worsened today in the setting of IV lasix bolus yesterday. Renal ultrasound showed bilateral nephrolithiasis, nonobstructing, no hydronephrosis, right renal cyst, no evidence of obstructive uropathy. Hold lasix today and repeat BMP in the morning. (3) BPH (benign prostatic hyperplasia): Current visit: No Status: Chronic With current Urinary retention in setting of likely prostatitis. Continue a-geraldine, Knox Catheter in place. (4) GERD (gastroesophageal reflux disease): Current visit: No Status: Chronic Continue PPI. (5) Atrial fibrillation: Current visit: Yes Status: Chronic With heart rate irregularly irregular, not tachycardic. INR currently therapeutic at 2.8. Continue Coumadin. Continue beta-geraldine AC. Continue to monitor daily INR. (6) Hyperlipidemia: Current visit: No Status: Chronic Continue statin. (7) Diabetes mellitus type 2 in obese: Current visit: No Status: Chronic Continue Glipizide, short acting insulin via sliding scale. Blood glucose 79 by morning labs. Continue to monitor blood glucose before meals. (8) LUCAS on CPAP: Current visit: No Status: Chronic Continue CPAP. (9) DVT prophylaxis: Current visit: No Status: Acute Therapeutic on Coumadin. Continue to monitor daily INR Subjective Interval history since last seen: Mr. Winkler continues to have shortness of breath at rest, he has a productive cough, he cannot describe the sputum. He denies wheezing, chest pain/pressure, or palpitations. He does have a Knox catheter in place. He denies any abdominal pain, nausea or vomiting. He is eating and drinking. His is present. We discussed the possibility that he likely has prostatitis and that we need to do a rectal exam to assess his prostate. He was very hesitant to have a rectal exam. He states that he prefers to either just be treated as if he has prostatitis with antibiotics, understanding that this would require a longer course. He reluctantly agrees to have a male preform the exam. He was clear that he did not want a female giving him a rectal exam. Exam Narrative Exam Narrative: General: elderly man laying in bed with his head elevated. He is awake and alert. He appears short of breath at rest. HEENT: Normocephalic, atraumatic, pupils equal round, extraocular movements intact, mucous membranes moist. Neck: Supple CV: Irregularly irregular. Non-tachycardic. No murmur appreciated. Pulmonary: Appears to have increased work of breathing with talking, improved from yesterday. Has mild shortness of breath at rest. Lung sounds clear throughout, No rales or wheezing. Abdomen: Large, round abdomen, normal active bowel sounds in all 4 quadrants, soft, nontender, nondistended. Vascular: trace bilateral lower extremity edema, TEDs on bilaterally. Hypertrophic toenails. DP pulses palpable bilaterally. Psych: Normal mood and affect. Objective Objective Clinical Data: Abnormal lab results 04/15/19 04/15/19 04/15/19 Range/Units 06:32 06:32 06:32 RBC 3.58 L (4.50-6.00) m/cumm Hgb 9.9 L (13.5-17.5) g/dL Hct 31.0 L (40.0-50.0) % MCHC 31.9 L (32.0-36.0) g/dL RDW 15.6 H (11.8-14.1) % Absolute Neutrophils 7.48 H (1.2-6.7) k/cumm Absolute Lymphocytes 1.11 L (1.2-3.4) k/cumm Absolute Monocytes 1.13 H (0.11-0.7) k/cumm ESR 113 H (1-20) MM/HR PT 28.4 H (9.3-11.0) sec INR 2.8 H (0.9-1.1) Carbon Dioxide 16.6 L (21.0-32.0) mmol/L Anion Gap 14.4 H (3-11) mmol/L BUN 33 H (7-18) mg/dL Creatinine 3.06 H (0.70-1.30) mg/dL C-Reactive Protein 13.99 H (0.0-0.3) mg/dL Vital Signs Temperature 38.0 C H 04/15/19 11:27 Temperature Source Tympanic 04/15/19 11:10 Pulse 80 04/15/19 11:10 Pulse Rhythm Regular 04/15/19 09:33 Respiratory Rate 22 04/15/19 11:10 Respiratory Effort 04/15/19 09:33 Respiratory Depth Normal 04/15/19 09:33 Respiratory Pattern Tachypnea 04/15/19 09:33 Blood Pressure 127/79 04/15/19 11:10 Blood Pressure Position Sitting 04/12/19 11:56 Pulse Oximetry 96 04/15/19 11:10 Oxygen Delivery Method Room Air 04/15/19 11:10 Oxygen Flow Rate 0 04/15/19 11:10 Pain Level 0 04/13/19 23:15 Comment 04/14/19 15:58 Intake & Output 04/14/19 04/15/19 04/15/19 23:59 11:59 23:59 Intake Total 630 / 2165 510 / 510 Output Total 2900 / 4150 1700 / 1700 Balance -2269 / -1984 -1190 / -1190 Weight 145.5 kg 145.3 kg Intake: IV 150 / 1205 Oral 480 / 960 510 / 510 Output: Urine 2900 / 4150 1700 / 1700 Other: Urine Color Light Hui Yellow Urine Appearance Clear Clear Comment Additional after afternoon lasix Laboratory Results WBC 9.81 k/cumm (4.4-10.8) 04/15/19 06:32 RBC 3.58 m/cumm (4.50-6.00) L 04/15/19 06:32 Hgb 9.9 g/dL (13.5-17.5) L 04/15/19 06:32 Hct 31.0 % (40.0-50.0) L 04/15/19 06:32 MCV 86.6 fL (80-95) 04/15/19 06:32 MCH 27.7 pg (27.0-33.0) 04/15/19 06:32 MCHC 31.9 g/dL (32.0-36.0) L 04/15/19 06:32 RDW 15.6 % (11.8-14.1) H 04/15/19 06:32 Plt Count 211 x1000/uL (130-400) 04/15/19 06:32 MPV 9.4 fL (8.0-11.0) 04/15/19 06:32 Immature Gran % 0.4 04/15/19 06:32 Neutrophils % 76.3 04/15/19 06:32 Lymphocytes % 11.3 04/15/19 06:32 Monocytes % 11.5 04/15/19 06:32 Eosinophils % 0.3 04/15/19 06:32 Basophils % 0.2 04/15/19 06:32 Absolute Neutrophils 7.48 k/cumm (1.2-6.7) H 04/15/19 06:32 Absolute Lymphocytes 1.11 k/cumm (1.2-3.4) L 04/15/19 06:32 Absolute Monocytes 1.13 k/cumm (0.11-0.7) H 04/15/19 06:32 Absolute Eosinophils 0.03 k/cumm (0.0-0.7) 04/15/19 06:32 Absolute Basophils 0.02 k/cumm (0.0-0.2) 04/15/19 06:32 Differential Comment Rbc morph reviewed 04/15/19 06:32 RBC Morphology See below 04/15/19 06:32 Polychromasia Present 04/15/19 06:32 Hypochromasia 1+ 04/15/19 06:32 ESR 113 MM/HR (1-20) H 04/15/19 06:32 PT 28.4 sec (9.3-11.0) H 04/15/19 06:32 INR 2.8 (0.9-1.1) H 04/15/19 06:32 APTT 38.3 sec (21.0-31.4) H 04/12/19 12:06 Sodium 137 mmol/L (136-145) 04/15/19 06:32 Potassium 3.7 mmol/L (3.5-5.1) 04/15/19 06:32 Chloride 106 mmol/L (98-107) 04/15/19 06:32 Carbon Dioxide 16.6 mmol/L (21.0-32.0) L 04/15/19 06:32 Anion Gap 14.4 mmol/L (3-11) H 04/15/19 06:32 BUN 33 mg/dL (7-18) H 04/15/19 06:32 Creatinine 3.06 mg/dL (0.70-1.30) H 04/15/19 06:32 Estimated GFR/1.73 m2 19.83 (mL/min/1.73m2) 04/15/19 06:32 Glucose 80 mg/dL (70-100) 04/15/19 06:32 Lactate 0.8 mmol/l (0.6-1.4) 04/13/19 06:55 Calcium 9.4 mg/dL (8.5-10.1) 04/15/19 06:32 Magnesium 2.0 mg/dL (1.8-2.4) 04/15/19 06:32 Total Bilirubin 1.1 mg/dL (0.2-1.0) H 04/12/19 12:00 AST 23 U/L (15-37) 04/12/19 12:00 ALT 16 U/L (12-78) 04/12/19 12:00 Alkaline Phosphatase 118 U/L (46-116) H 04/12/19 12:00 Troponin I Cancelled 04/12/19 12:06 C-Reactive Protein 13.99 mg/dL (0.0-0.3) H 04/15/19 06:32 NT-Pro-B Natriuret Pep Cancelled 04/12/19 12:21 Total Protein 7.3 g/dL (6.4-8.2) 04/12/19 12:00 Albumin 2.5 g/dL (3.4-5.0) L 04/12/19 12:00 Procalcitonin 1.1 ng/mL 04/15/19 06:32 Urine Color Yellow (Yellow) 04/12/19 13:50 Urine Clarity Clear 04/12/19 13:50 Urine pH 7.0 (5-8) 04/12/19 13:50 Ur Specific [place] 1.010 (1.005-1.025) 04/12/19 13:50 Urine Protein 100 mg/dL (Negative) H 04/12/19 13:50 Urine Ketones Negative mg/dL (Negative) 04/12/19 13:50 Urine Blood Large (Negative) H 04/12/19 13:50 Urine Nitrite Positive (Negative) H 04/12/19 13:50 Urine Bilirubin Negative (Negative) 04/12/19 13:50 Urine Urobilinogen 1.0 EU/dL (Up TO 0.2) H 04/12/19 13:50 Ur Leukocyte Esterase Large (Negative) H 04/12/19 13:50 Urine RBC >50 (0-2) H 04/12/19 13:50 Urine WBC >50 HPF (0-5) 04/12/19 13:50 Ur Epithelial Cells Not Applicable 04/12/19 13:50 Urine Crystals Not Applicable 04/12/19 13:50 Urine Bacteria Not Applicable 04/12/19 13:50 Urine Mucus Not Applicable 04/12/19 13:50 Ur Culture Indicated? Yes 04/12/19 13:50 Urine Glucose 100 mg/dL (Negative) 04/12/19 13:50
[2019-04-15] MEDS: CEFEPIME 2 GM in Normal Saline 100 ML IVPB (13:22)
[2019-04-15] MEDS: Tamsulosin 0.4 MG CAPCR PO (17:07)
--- NOTE | 2019-04-15 17:57 | CMPROGNOTE_ITS ---
Care Management Progress Note S/O: Sav was lying in bed, his dozing in a chair at his bedside. No change to overall plan. CM will continue to follow. A: 78 year old male admitted to [facility] 04/12/19 for Pneumonia P: Sav will return home when ready per MD; no additional services anticipated at this time. CM will continue to follow and support discharge planning considerations.
[2019-04-15] MEDS: Pravastatin 40 MG TAB PO (19:27)
[2019-04-15] MEDS: Warfarin 5 MG TAB PO (19:27)
[2019-04-16] VITALS (8 sets, daily range): BP systolic 105–130; BP diastolic 65–76; PULSE 72–110; RESP 4–36; TEMP 36.8–38.7; O2SAT 93–97
[2019-04-16] MEDS: CEFEPIME 2 GM in Normal Saline 100 ML IVPB (02:09)
[2019-04-16 07:12] LABS: Abs Immature Grans 0.11 k/cumm (0.0-0.09); Absolute Eosinophil Count 0.12 k/cumm (0.0-0.7); Basophils % 0.2; HCT 36.5 % (40.0-50.0); HGB 11.5 g/dL (13.5-17.5); Immature Grans % 0.9; Lymphocytes % 13.9; Mean Corp. HGB Concentration 31.5 g/dL (32.0-36.0); Mean Corpuscular Hemoglobin 27.4 pg (27.0-33.0); Mean Corpuscular Volume 86.9 fL (80-95); Mean Platelet Volume 9.7 fL (8.0-11.0); Monocytes % 11.1; Neutrophils % 72.9; Platelet Count 231 x1000/uL (130-400); RBC Distribution Width 15.7 % (11.8-14.1)
[2019-04-16 07:13] LABS: Absolute Basophil Count 0.02 k/cumm (0.0-0.2); Absolute Monocyte Count 1.35 k/cumm (0.11-0.7); Absolute Neutrophil Count 8.89 k/cumm (1.2-6.7)
[2019-04-16 07:24] LABS: Anion Gap 11.1 mmol/L (3-11); BUN 37 mg/dL (7-18); C-Reactive Protein 13.43 mg/dL (0.0-0.3); CO2 18.9 mmol/L (21.0-32.0); CREATININE 3.12 mg/dL (0.70-1.30); Calcium 10.3 mg/dL (8.5-10.1); Chloride 108 mmol/L (98-107); Estimated GFR 19.39 (mL/min/1.73m2); Glucose 82 mg/dL (70-100); Magnesium 2.2 mg/dL (1.8-2.4); Potassium 4.7 mmol/L (3.5-5.1); Sodium 138 mmol/L (136-145)
[2019-04-16] MEDS: glipiZIDE 5 MG TAB 10 MG PO (08:02)
[2019-04-16] MEDS: Potassium Chloride 10 MEQ TABCR PO (08:02)
[2019-04-16] MEDS: Acetaminophen 325 MG TAB PO (08:02)
[2019-04-16] MEDS: Multivitamin TAB 1 TAB PO (08:02)
[2019-04-16] MEDS: amLODIPine 5 MG TAB PO (08:02)
[2019-04-16] MEDS: Omeprazole 20 MG CAPCR PO ×2 (08:03→19:37)
[2019-04-16] MEDS: Metoprolol 50 MG TAB PO ×2 (08:03→19:36)
[2019-04-16 09:25] LABS: INR 3.1 (0.9-1.1); Prothrombin Time 30.9 sec (9.3-11.0)
[2019-04-16] MEDS: Albuterol/Ipratropium 3 ML UPD VIAL UPD (10:03)
--- NOTE | 2019-04-16 10:30 | DI.CT_ITS ---
SYMPTOMS/DIAGNOSIS: FEVERS, COUGH, SHORTNESS OF BREATH CHEST CT: The study was carried out without contrast enhancement. The lungs are free of infiltrate. There is no pleural effusion. The heart is enlarged. There is no pericardial effusion. Coronary artery calcification is demonstrated. A number of small mediastinal lymph nodes are demonstrated. There is no definite evidence of adenopathy. There are small calcifications in the right hilum and mediastinum which would be consistent with old healed granulomatous disease. There are atherosclerotic changes involving the aorta without evidence of an aneurysm. Note is made of left nephrolithiasis. SUMMARY: No evidence of acute cardiopulmonary disease on a noncontrast enhanced chest CT.
--- NOTE | 2019-04-16 11:13 | PGE_ITS ---
Date of Service Date of service: 04/16/19 Time of Service: 11:12 Assessment and Plan (1) UTI (urinary tract infection): Current visit: No Status: Acute This is a medical student progress note written for educational purposes. Please refer to the attending hospitalist note for clinical care. The ddx for Mr. Winkler's fever, urinary retention, positive UA include: prostatic abscess (persistent fever despite on broad spectrum abx + significant BPH and retention hx + urine culture colony <10,000), acute complicated cystitis (positive UA, positive urine culture), pyelonephritis (did have fevers and chills, but less likely because no CVA tenderness), urosepsis (does have bilat nephrolithiasis evidenced on renal U/S, but colony amount is not consistent with infected kidney stones). He is current on vancomycin, cefepime, and levofloxacin, which will have broad spectrum coverage especially for complicatd infections. Given the high likelihood of a prostate abscess, we will obtain a urology consult to further assess: - CT abdomen/pelvis - Urology consult - Continue vancomycin 1.25 gm @167 mls/hr --> will cover enterococcus - Continue levofloxacin 750 mg, 100 ml/hr Q48h --> will cover klebsiella - Continue cefepime 2gm @ 200 mls/hr --> broad spectrum gram positive and negative, including pseudomonal coverage, treats nosocomial PNA (2) BPH (benign prostatic hyperplasia): Current visit: No Status: Chronic Mr. Winkler has baseline BPH with urinary retention. Renal ultrasound 04/14 showed bilateral nephrolithiasis and right renal cysts but no obstructive uropathy. It is likely that his current presentation is BPH complicated with prostatitis vs prostatic abscess. We will await the result of CT abd/pelvis to further assess the etiology. - Continue Tamsulosin 0.4mg - Knox in place (3) GERD (gastroesophageal reflux disease): Current visit: No Status: Chronic Patient has underlying GERD, currently asymptomatic, on omeprazole 20 mg. (4) Diabetes mellitus type 2 in obese: Current visit: No Status: Chronic Patient's serum glucose has been < 100, therefore has not needed insulin aspart. Continue home glipizide 10mg daily. Subjective Interval history since last seen: This is a medical student progress note written for educational purposes. Please refer to the attending hospitalist note for clinical care. 04/16: Mr. Winkler said he had chest pain x 4 overnight over the period of 1 min. He describes the pain as across he left side of his abdomen. He was not exerting himself when this happened. No radiation of the pain anywhere. He does have a hx of rib fracture in the past. He did have a productive cough yesterday, but denies any blood in the sputum. Denies chest pain, sob (states he has been breathing the same way for 15 yrs), abd pain, dysuria, back pain. He does suffer from chronic kidney stones, but no acute pain currently. He has never smoked. He refused a rectal prostate exam yesterday and said his last exam was with the late Dr. Sav Waggoner 10 years ago. Mr. 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 He was seen at [facility] ED 2 days prior on 04/10 with fevers and productive cough but negative CXR treated with cefpodoxime and doxy. However fever persisted after went home then came back to the hospital. Since admission his UA was positive for nitrites and leukocyte esterase, and urine culture grew <10,000 enterococcus and klebsiella. He was also febrile, had tello kocytosis, elevated lactate CRP ESR, and BUN and Cr higher than baseline. He was started on vancomycin and levofloxacin promptly. His temperature as well as wbc return to baseline back quickly went up. Given patient's persistent fever while on broad-spectrum abx and his significant hx of BPH and retention, a urology consult was placed to investigate any underlying pathologies. Exam Narrative Exam Narrative: Vitals: T 99.5F, BP 130/76, P 110, R 36, O2 96% RA, weight 313 lb (admission 320 lb) GEN: elderly obese male in NTD, alert and oriented to person, place, time HEENT: ATNS, PERRL, EOMI CV: tachycardic, irregular rhythm, s1, s2 Pulm: clear bilatrally, no crackles or wheezes Abd: positive BS, non-tender on palpation Back: Negative CVA tenderness Neuro: cranial nerves grossly intact, motor 5/5 on UE and LE MSK: no LE edema appreciated Psych: appropriate affect, conversational Const General: cooperative, comfortable and no acute distress Orientation: alert, awake and oriented x3 HENMT Head: normal to inspection Eyes General: appearance normal, both eyes and all related structures Pupils: PERRL EOM: EOM intact bilaterally Resp Effort & Inspection: tachypneic Auscultation: clear to auscultation bilaterally Cardio Rate: tachycardic Rhythm: abnormal rhythm GI Palpation: not firm, no guarding and nontender Auscultation: normal bowel sounds Neuro General: alert, awake and oriented x3 Cognition: normal cognition Speech: speech normal Extrem Right lower extremity: no edema Left lower extremity: no edema Psych Appearance: grossly normal Mental Status: mental status grossly normal Speech and Movement: speech and movement normal Mood: congruent mood Affect: normal affect Attitude: cooperative Thought Process: normal Insight: insight good Judgment: judgment good Objective Objective Clinical Data: Abnormal lab results 04/15/19 04/16/19 04/16/19 Range/Units 06:32 06:45 06:45 WBC 12.20 H (4.4-10.8) k/cumm RBC 4.20 L (4.50-6.00) m/cumm Hgb 11.5 L (13.5-17.5) g/dL Hct 36.5 L (40.0-50.0) % MCHC 31.5 L (32.0-36.0) g/dL RDW 15.7 H (11.8-14.1) % Absolute Neutrophils 8.89 H (1.2-6.7) k/cumm Absolute Monocytes 1.35 H (0.11-0.7) k/cumm ESR 113 H (1-20) MM/HR PT (9.3-11.0) sec INR (0.9-1.1) Chloride 108 H (98-107) mmol/L Carbon Dioxide 18.9 L (21.0-32.0) mmol/L Anion Gap 11.1 H (3-11) mmol/L BUN 37 H (7-18) mg/dL Creatinine 3.12 H (0.70-1.30) mg/dL Calcium 10.3 H (8.5-10.1) mg/dL C-Reactive Protein 13.43 H (0.0-0.3) mg/dL 04/16/19 Range/Units 08:45 WBC (4.4-10.8) k/cumm RBC (4.50-6.00) m/cumm Hgb (13.5-17.5) g/dL Hct (40.0-50.0) % MCHC (32.0-36.0) g/dL RDW (11.8-14.1) % Absolute Neutrophils (1.2-6.7) k/cumm Absolute Monocytes (0.11-0.7) k/cumm ESR (1-20) MM/HR PT 30.9 H (9.3-11.0) sec INR 3.1 H (0.9-1.1) Chloride (98-107) mmol/L Carbon Dioxide (21.0-32.0) mmol/L Anion Gap (3-11) mmol/L BUN (7-18) mg/dL Creatinine (0.70-1.30) mg/dL Calcium (8.5-10.1) mg/dL C-Reactive Protein (0.0-0.3) mg/dL Vital Signs Temperature 99.5 F 04/16/19 10:00 Temperature Source Tympanic 04/16/19 10:00 Pulse 110 H 04/16/19 08:00 Pulse Rhythm Irregular 04/16/19 08:08 Respiratory Rate 36 H 04/16/19 08:00 Respiratory Effort 04/16/19 08:08 Respiratory Depth Shallow 04/16/19 08:08 Respiratory Pattern Normal 04/15/19 19:10 Blood Pressure 130/76 04/16/19 08:00 Blood Pressure Position Sitting 04/12/19 11:56 Pulse Oximetry 97 04/16/19 10:05 Oxygen Delivery Method Room Air 04/16/19 10:05 Oxygen Flow Rate 0 04/16/19 10:05 Pain Level 0 04/16/19 08:02 Comment 04/14/19 15:58 Intake & Output 04/15/19 04/15/19 04/16/19 11:59 23:59 11:59 Intake Total 510 / 1220 710 / 1220 100 / 100 Output Total 1700 / 2850 1150 / 2850 1300 / 1300 Balance -1190 / -1630 -440 / -1630 -1200 / -1200 Weight 320 lb 5.306 oz 313 lb 0.902 oz Intake: IV 350 / 350 100 / 100 Oral 510 / 870 360 / 870 Output: Urine 1700 / 2850 1150 / 2850 1300 / 1300 Other: Urine Color Yellow Dark Hui Yellow Urine Appearance Clear Clear Sediment Laboratory Results WBC 12.20 k/cumm (4.4-10.8) H 04/16/19 06:45 RBC 4.20 m/cumm (4.50-6.00) L 04/16/19 06:45 Hgb 11.5 g/dL (13.5-17.5) L 04/16/19 06:45 Hct 36.5 % (40.0-50.0) L 04/16/19 06:45 MCV 86.9 fL (80-95) 04/16/19 06:45 MCH 27.4 pg (27.0-33.0) 04/16/19 06:45 MCHC 31.5 g/dL (32.0-36.0) L 04/16/19 06:45 RDW 15.7 % (11.8-14.1) H 04/16/19 06:45 Plt Count 231 x1000/uL (130-400) 04/16/19 06:45 MPV 9.7 fL (8.0-11.0) 04/16/19 06:45 Immature Gran % 0.9 04/16/19 06:45 Neutrophils % 72.9 04/16/19 06:45 Lymphocytes % 13.9 04/16/19 06:45 Monocytes % 11.1 04/16/19 06:45 Eosinophils % 1.0 04/16/19 06:45 Basophils % 0.2 04/16/19 06:45 Absolute Neutrophils 8.89 k/cumm (1.2-6.7) H 04/16/19 06:45 Absolute Lymphocytes 1.70 k/cumm (1.2-3.4) 04/16/19 06:45 Absolute Monocytes 1.35 k/cumm (0.11-0.7) H 04/16/19 06:45 Absolute Eosinophils 0.12 k/cumm (0.0-0.7) 04/16/19 06:45 Absolute Basophils 0.02 k/cumm (0.0-0.2) 04/16/19 06:45 Differential Comment Rbc morph reviewed 04/15/19 06:32 RBC Morphology See below 04/15/19 06:32 Polychromasia Present 04/15/19 06:32 Hypochromasia 1+ 04/15/19 06:32 ESR 113 MM/HR (1-20) H 04/15/19 06:32 PT 30.9 sec (9.3-11.0) H 04/16/19 08:45 INR 3.1 (0.9-1.1) H 04/16/19 08:45 APTT 38.3 sec (21.0-31.4) H 04/12/19 12:06 Sodium 138 mmol/L (136-145) 04/16/19 06:45 Potassium 4.7 mmol/L (3.5-5.1) D 04/16/19 06:45 Chloride 108 mmol/L (98-107) H 04/16/19 06:45 Carbon Dioxide 18.9 mmol/L (21.0-32.0) L 04/16/19 06:45 Anion Gap 11.1 mmol/L (3-11) H 04/16/19 06:45 BUN 37 mg/dL (7-18) H 04/16/19 06:45 Creatinine 3.12 mg/dL (0.70-1.30) H 04/16/19 06:45 Estimated GFR/1.73 m2 19.39 (mL/min/1.73m2) 04/16/19 06:45 Glucose 82 mg/dL (70-100) 04/16/19 06:45 Lactate 0.8 mmol/l (0.6-1.4) 04/13/19 06:55 Calcium 10.3 mg/dL (8.5-10.1) H 04/16/19 06:45 Magnesium 2.2 mg/dL (1.8-2.4) 04/16/19 06:45 Total Bilirubin 1.1 mg/dL (0.2-1.0) H 04/12/19 12:00 AST 23 U/L (15-37) 04/12/19 12:00 ALT 16 U/L (12-78) 04/12/19 12:00 Alkaline Phosphatase 118 U/L (46-116) H 04/12/19 12:00 Troponin I Cancelled 04/12/19 12:06 C-Reactive Protein 13.43 mg/dL (0.0-0.3) H 04/16/19 06:45 NT-Pro-B Natriuret Pep Cancelled 04/12/19 12:21 Total Protein 7.3 g/dL (6.4-8.2) 04/12/19 12:00 Albumin 2.5 g/dL (3.4-5.0) L 04/12/19 12:00 Procalcitonin 1.1 ng/mL 04/15/19 06:32 Urine Color Yellow (Yellow) 04/12/19 13:50 Urine Clarity Clear 04/12/19 13:50 Urine pH 7.0 (5-8) 04/12/19 13:50 Ur Specific [place] 1.010 (1.005-1.025) 04/12/19 13:50 Urine Protein 100 mg/dL (Negative) H 04/12/19 13:50 Urine Ketones Negative mg/dL (Negative) 04/12/19 13:50 Urine Blood Large (Negative) H 04/12/19 13:50 Urine Nitrite Positive (Negative) H 04/12/19 13:50 Urine Bilirubin Negative (Negative) 04/12/19 13:50 Urine Urobilinogen 1.0 EU/dL (Up TO 0.2) H 04/12/19 13:50 Ur Leukocyte Esterase Large (Negative) H 04/12/19 13:50 Urine RBC >50 (0-2) H 04/12/19 13:50 Urine WBC >50 HPF (0-5) 04/12/19 13:50 Ur Epithelial Cells Not Applicable 04/12/19 13:50 Urine Crystals Not Applicable 04/12/19 13:50 Urine Bacteria Not Applicable 04/12/19 13:50 Urine Mucus Not Applicable 04/12/19 13:50 Ur Culture Indicated? Yes 04/12/19 13:50 Urine Glucose 100 mg/dL (Negative) 04/12/19 13:50
[2019-04-16] MEDS: Normal Saline Flush 10 ML SYR IVP ×2 (12:17→15:48)
[2019-04-16] MEDS: Insulin Aspart 300 UNITS/3 ML PEN SC ×2 (12:17→17:26)
--- NOTE | 2019-04-16 12:23 | PGE_ITS ---
Date of Service Date of service: 04/16/19 Time of Service: 12:21 Assessment and Plan (1) Fever: Current visit: Yes Status: Acute Possible prostatitis with urine culture growing only <10,000 colonies of enterococcus and klebsiella with a positive UA and urinary retention. CRP markedly elevated, >13. Refused rectal exam yesterday. Also with potential infiltrate by CXR on admission. His procalcitonin was 0.6 on admission, repeated yesterday and found to be elevated to 1.1. He remains febrile on day #4 of IV antibiotic therapy with Levaquin and vancomycin and Cefepime added yesterday. Blood cultures with no growth to date. Blood cultures repeated today in the setting of fever. Respiratory symptoms improving. Chest CT today shows no acute process. Concern for prostate abscess. Urology consulted. Consider imaging prostate. The patient agrees to urology doing rectal exam. Given the improvement noted on Chest CT, and continued fevers after Cefepime was added. Will discontinue cefepime today and continue to monitor. (2) Acute renal insufficiency: Current visit: No Status: Acute Renal function worsened again today. Renal ultrasound on 04/14/19 showed bilateral nephrolithiasis, nonobstructing, no hydronephrosis, right renal cyst, no evidence of obstructive uropathy. Cefepime discontinued as above. Glipizide discontinued. ntinue to follow BMP. (3) BPH (benign prostatic hyperplasia): Current visit: No Status: Chronic With Urinary retention in setting of likely prostatitis. Continue alpha geraldine, Griffin Catheter in place. (4) GERD (gastroesophageal reflux disease): Current visit: No Status: Chronic Continue PPI. (5) Atrial fibrillation: Current visit: Yes Status: Chronic With heart rate irregularly irregular, not tachycardic. INR currently therapeutic at 3.1. Continue anticoagulation with Coumadin. Continue metoprolol for rate control. Continue to monitor daily INR. (6) Hyperlipidemia: Current visit: No Status: Chronic Continue statin. (7) Diabetes mellitus type 2 in obese: Current visit: No Status: Chronic His blood glucose has been low and with worsening renal function. Hold glipizide. Continue short acting insulin via sliding scale. Blood glucose 82 by morning labs. Continue to monitor blood glucose before meals. (8) LUCAS on CPAP: Current visit: No Status: Chronic Continue CPAP. (9) DVT prophylaxis: Current visit: No Status: Acute Continue Coumadin. Continue to monitor daily INR (10) Discharge planning issues: Current visit: Yes Status: Acute He is a FULL CODE. Discussed code status and he wishes to remain a full code. He is physically deconditioned, consult PT. This case was discussed with Dr. Carmona who is in agreement. Subjective Interval history since last seen: Mr. Winkler reports having a fever this morning with chills. He states he feels better now. He denies dizziness, shortness of breath, wheezing, he has not been coughing at all today. He reports left chest discomfort to his left lateral ribs/upper abdomen. He reports having this chest pain since he fractured left ribs in November 2017, however he normally has 1 sharp pain and last night he had 4 brief sharp pains over a 10 second period. He otherwise denies any concerns, he is eating and drinking, he has no abdominal discomfort, he denies any low back pain, he has a griffin catheter in place. He is eating and drinking, no nausea, vomiting or diarrhea. He denies edema. He will agree to urology doing a rectal exam, he refuses a female doing the exam. Exam Narrative Exam Narrative: General: elderly man sitting up in the chair. He is awake and alert. He does not appear to be in any respiratory distress. Alert and oriented, pleasant and cooperative. HEENT: Normocephalic, atraumatic, pupils equal round, extraocular movements intact, mucous membranes moist. Neck: Supple CV: Irregularly irregular. Non-tachycardic. No murmur appreciated. Pulmonary: Respirations appear unlabored. Lung sounds clear throughout, No rales or wheezing. Abdomen: Large, round abdomen, normal active bowel sounds in all 4 quadrants, soft, nontender, nondistended. Vascular: trace bilateral lower extremity edema around the ankles, TEDs on bilaterally. Hypertrophic toenails. DP pulses palpable bilaterally. Psych: Normal mood and affect. Objective Objective Clinical Data: Abnormal lab results 04/16/19 04/16/19 04/16/19 Range/Units 06:45 06:45 08:45 WBC 12.20 H (4.4-10.8) k/cumm RBC 4.20 L (4.50-6.00) m/cumm Hgb 11.5 L (13.5-17.5) g/dL Hct 36.5 L (40.0-50.0) % MCHC 31.5 L (32.0-36.0) g/dL RDW 15.7 H (11.8-14.1) % Absolute Neutrophils 8.89 H (1.2-6.7) k/cumm Absolute Monocytes 1.35 H (0.11-0.7) k/cumm PT 30.9 H (9.3-11.0) sec INR 3.1 H (0.9-1.1) Chloride 108 H (98-107) mmol/L Carbon Dioxide 18.9 L (21.0-32.0) mmol/L Anion Gap 11.1 H (3-11) mmol/L BUN 37 H (7-18) mg/dL Creatinine 3.12 H (0.70-1.30) mg/dL Calcium 10.3 H (8.5-10.1) mg/dL C-Reactive Protein 13.43 H (0.0-0.3) mg/dL Vital Signs Temperature 37.4 C 04/16/19 12:00 Temperature Source Tympanic 04/16/19 12:00 Pulse 76 04/16/19 12:00 Pulse Rhythm Irregular 04/16/19 08:08 Respiratory Rate 16 04/16/19 12:00 Respiratory Effort 04/16/19 08:08 Respiratory Depth Shallow 04/16/19 08:08 Respiratory Pattern Normal 04/15/19 19:10 Blood Pressure 105/65 04/16/19 12:00 Blood Pressure Position Sitting 04/12/19 11:56 Pulse Oximetry 93 L 04/16/19 12:00 Oxygen Delivery Method Room Air 04/16/19 12:00 Oxygen Flow Rate 0 04/16/19 12:00 Pain Level 0 04/16/19 08:02 Comment 04/14/19 15:58 Intake & Output 04/15/19 04/16/19 04/16/19 23:59 11:59 23:59 Intake Total 710 / 1220 100 / 100 Output Total 1150 / 2850 1300 / 1300 Balance -440 / -1630 -1200 / -1200 Weight 142 kg Intake: IV 350 / 350 100 / 100 Oral 360 / 870 Output: Urine 1150 / 2850 1300 / 1300 Other: Urine Color Dark Hui Yellow Urine Appearance Clear Sediment Laboratory Results WBC 12.20 k/cumm (4.4-10.8) H 04/16/19 06:45 RBC 4.20 m/cumm (4.50-6.00) L 04/16/19 06:45 Hgb 11.5 g/dL (13.5-17.5) L 04/16/19 06:45 Hct 36.5 % (40.0-50.0) L 04/16/19 06:45 MCV 86.9 fL (80-95) 04/16/19 06:45 MCH 27.4 pg (27.0-33.0) 04/16/19 06:45 MCHC 31.5 g/dL (32.0-36.0) L 04/16/19 06:45 RDW 15.7 % (11.8-14.1) H 04/16/19 06:45 Plt Count 231 x1000/uL (130-400) 04/16/19 06:45 MPV 9.7 fL (8.0-11.0) 04/16/19 06:45 Immature Gran % 0.9 04/16/19 06:45 Neutrophils % 72.9 04/16/19 06:45 Lymphocytes % 13.9 04/16/19 06:45 Monocytes % 11.1 04/16/19 06:45 Eosinophils % 1.0 04/16/19 06:45 Basophils % 0.2 04/16/19 06:45 Absolute Neutrophils 8.89 k/cumm (1.2-6.7) H 04/16/19 06:45 Absolute Lymphocytes 1.70 k/cumm (1.2-3.4) 04/16/19 06:45 Absolute Monocytes 1.35 k/cumm (0.11-0.7) H 04/16/19 06:45 Absolute Eosinophils 0.12 k/cumm (0.0-0.7) 04/16/19 06:45 Absolute Basophils 0.02 k/cumm (0.0-0.2) 04/16/19 06:45 Differential Comment Rbc morph reviewed 04/15/19 06:32 RBC Morphology See below 04/15/19 06:32 Polychromasia Present 04/15/19 06:32 Hypochromasia 1+ 04/15/19 06:32 ESR 113 MM/HR (1-20) H 04/15/19 06:32 PT 30.9 sec (9.3-11.0) H 04/16/19 08:45 INR 3.1 (0.9-1.1) H 04/16/19 08:45 APTT 38.3 sec (21.0-31.4) H 04/12/19 12:06 Sodium 138 mmol/L (136-145) 04/16/19 06:45 Potassium 4.7 mmol/L (3.5-5.1) D 04/16/19 06:45 Chloride 108 mmol/L (98-107) H 04/16/19 06:45 Carbon Dioxide 18.9 mmol/L (21.0-32.0) L 04/16/19 06:45 Anion Gap 11.1 mmol/L (3-11) H 04/16/19 06:45 BUN 37 mg/dL (7-18) H 04/16/19 06:45 Creatinine 3.12 mg/dL (0.70-1.30) H 04/16/19 06:45 Estimated GFR/1.73 m2 19.39 (mL/min/1.73m2) 04/16/19 06:45 Glucose 82 mg/dL (70-100) 04/16/19 06:45 Lactate 0.8 mmol/l (0.6-1.4) 04/13/19 06:55 Calcium 10.3 mg/dL (8.5-10.1) H 04/16/19 06:45 Magnesium 2.2 mg/dL (1.8-2.4) 04/16/19 06:45 Total Bilirubin 1.1 mg/dL (0.2-1.0) H 04/12/19 12:00 AST 23 U/L (15-37) 04/12/19 12:00 ALT 16 U/L (12-78) 04/12/19 12:00 Alkaline Phosphatase 118 U/L (46-116) H 04/12/19 12:00 Troponin I Cancelled 04/12/19 12:06 C-Reactive Protein 13.43 mg/dL (0.0-0.3) H 04/16/19 06:45 NT-Pro-B Natriuret Pep Cancelled 04/12/19 12:21 Total Protein 7.3 g/dL (6.4-8.2) 04/12/19 12:00 Albumin 2.5 g/dL (3.4-5.0) L 04/12/19 12:00 Procalcitonin 1.1 ng/mL 04/15/19 06:32 Urine Color Yellow (Yellow) 04/12/19 13:50 Urine Clarity Clear 04/12/19 13:50 Urine pH 7.0 (5-8) 04/12/19 13:50 Ur Specific Reading 1.010 (1.005-1.025) 04/12/19 13:50 Urine Protein 100 mg/dL (Negative) H 04/12/19 13:50 Urine Ketones Negative mg/dL (Negative) 04/12/19 13:50 Urine Blood Large (Negative) H 04/12/19 13:50 Urine Nitrite Positive (Negative) H 04/12/19 13:50 Urine Bilirubin Negative (Negative) 04/12/19 13:50 Urine Urobilinogen 1.0 EU/dL (Up TO 0.2) H 04/12/19 13:50 Ur Leukocyte Esterase Large (Negative) H 04/12/19 13:50 Urine RBC >50 (0-2) H 04/12/19 13:50 Urine WBC >50 HPF (0-5) 04/12/19 13:50 Ur Epithelial Cells Not Applicable 04/12/19 13:50 Urine Crystals Not Applicable 04/12/19 13:50 Urine Bacteria Not Applicable 04/12/19 13:50 Urine Mucus Not Applicable 04/12/19 13:50 Ur Culture Indicated? Yes 04/12/19 13:50 Urine Glucose 100 mg/dL (Negative) 04/12/19 13:50
[2019-04-16] MEDS: Nystatin POWDER 60 GM JAR TP ×2 (13:47→19:38)
--- NOTE | 2019-04-16 14:00 | W.UROLOGYCON ---
Date of service: 04/16/19 Time of Service: 14:00 History of Present Illness Chief Complaint: Fever Narrative: This is a 78-year-old gentleman who has a history of diabetes mellitus, urinary retention, bilateral kidney stones, bladder stone, urinary incontinence and recurrent urinary tract infections. He is currently hospitalized with fevers. Initially, he was diagnosed with pneumonia, but his sputum cultures and CT scan are unconvincing. He has had pyuria on his urinalyses, but his urine cultures have grown low levels of bacteria. He has been on broad-spectrum antibiotics, but he continues to spike fevers. I have been asked to see him to see if he might have prostatitis or a prostatic abscess. The patient does have urinary retention and currently has a catheter in place. He has never had prostate surgery or kidney stone surgery. He has had gross hematuria for which he has been evaluated with cystoscopy is and bladder biopsies. When he has had positive urine cultures in the past, his urine has grown E. coli, Klebsiella and enterococcus. Each of these organisms have been sensitive to quinolones. He has been on Levaquin for the past 4 days. Review of Systems Constitutional Reports chills, Reports fever(s) and Reports snoring Cardiovascular Denies chest pain Respiratory Denies change in phlegm color, Denies hemoptysis and Reports snoring Gastrointestinal Denies abdominal pain, Denies change in bowel habits, Denies constipation and Denies diarrhea Musculoskeletal Reports arthralgias Neurologic Denies seizure-like activity [facility] Medical History Chronic anticoagulation (Chronic) Atrial fibrillation (Chronic) Bladder stone (Resolved 02/14/16) Carpal tunnel syndrome (Chronic) Cellulitis of foot (Resolved 10/17/06) Generalized osteoarthrosis (Chronic) Hiatal hernia (Chronic) Obesity (Chronic 02/11/13) Polyp of colon (Chronic) Rosacea (Chronic) Sexual function problem (Chronic) Sleep apnea (Chronic 02/14/16) Constipation (Chronic) Chronic a-fib (Chronic) Nephrolithiasis (Chronic) CHF (congestive heart failure) (Chronic) BPH (benign prostatic hyperplasia) (Chronic) GERD (gastroesophageal reflux disease) (Chronic) Hyperlipidemia (Chronic) 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 Daughter No problems noted. Social History Smoking/Tobacco Use Status: Never Alcohol Intake: never Drug use: Never Substance use type: does not use Household members: spouse Pets and animals: No What type of physical activity do you participate in: none Special amor needs: No Do you feel safe at home: Yes Do you feel safe in your relationship?: Yes Exam Narrative Exam Narrative: He is an obese gentleman in no obvious distress. His vital signs are documented elsewhere in the chart His abdomen is obese but soft with no guarding or rebound tenderness There is no CVA tenderness A Knox catheter is in place and is draining cloudy urine On digital rectal exam, his external sphincter tone is poor. The prostate is not tender and not overly boggy He is awake and alert I reviewed his renal ultrasound. He does have bilateral kidney stones but no hydronephrosis. I also reviewed his medical records from [facility] Results Last Vital Signs Temp 37.4 C 04/16/19 12:00 Pulse 76 04/16/19 12:00 Resp 16 04/16/19 12:00 BP 105/65 04/16/19 12:00 Pulse Ox 93 L 04/16/19 12:00 Labs : 04/17/19 06:25 04/17/19 06:25 Laboratory Results - last 24 hr 04/16/19 04/16/19 04/16/19 06:45 06:45 08:45 WBC 12.20 H RBC 4.20 L Hgb 11.5 L Hct 36.5 L MCV 86.9 MCH 27.4 MCHC 31.5 L RDW 15.7 H Plt Count 231 MPV 9.7 Immature Gran % 0.9 Neutrophils % 72.9 Lymphocytes % 13.9 Monocytes % 11.1 Eosinophils % 1.0 Basophils % 0.2 Absolute Neutrophils 8.89 H Absolute Lymphocytes 1.70 Absolute Monocytes 1.35 H Absolute Eosinophils 0.12 Absolute Basophils 0.02 PT 30.9 H INR 3.1 H Sodium 138 Potassium 4.7 D Chloride 108 H Carbon Dioxide 18.9 L Anion Gap 11.1 H BUN 37 H Creatinine 3.12 H Estimated GFR/1.73 m2 19.39 Glucose 82 Calcium 10.3 H Magnesium 2.2 C-Reactive Protein 13.43 H Assessment and Plan (1) Fever: Current visit: Yes Status: Acute Based on his exam, I do not have any clinical signs that he has a prostate abscess. He may have a component of prostatitis, but I would expect that his fevers would begin to clear with his antibiotics. 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 Again, all of the appropriate treatments have already been begun (Knox catheter and antibiotics). He does have kidney and bladder stones. Potentially, the stones could be harboring an infection, but I would have expected his urine culture to show a higher colony count of bacteria. If he does not begin to defervesce over the next 24 hours, we may want to consider abdominal imaging. He has no signs or symptoms of an intra-abdominal process, but he should be getting better by now. If he does defervesce, we may want to consider a longer course of antibiotic (up to 6 weeks) for a presumptive diagnosis of prostatitis or recurrent emphysematous cystitis. His retention has been an issue in the past. In [place] [facility] [place], it looks like he was being taught self catheterization. If he is able to perform CIC, his catheter could be removed. Otherwise, he would likely need to leave his catheter and have in changed monthly.
[2019-04-16] MEDS: levoFLOXacin 750 MG/150 ML BAG 100 MG IVPB (15:48)
--- NOTE | 2019-04-16 17:05 | CMPROGNOTE_ITS ---
- If Service Date Differs Date of service: 04/16/19 Time of Service: 17:05 Care Management Progress Note S/O: CM met with Sav in the room he is sitting up eating his breakfast. Sav appears uncomfortable he has audible wheezing during interaction with CM. Findings where reported to his nurse and provider. Sav is going to have a CT scan today. He continues to be febrile overnight blood cultures are pending. Per interdisciplinary report he did have some chest discomfort overnight and his BUN an CR are elevated. Sav will have a urology consult today r/t question of prostatitis. Sav is receiving broad spectrum antibiotics and remains acute at this time. CM met with his spouse Fannie and provided updates. A: 78 year old male admitted to [facility] 04/12/19 for Pneumonia P: Sav will return home when medically ready. Sav is considering home health nursing at time of discharge. CM to continue to provide support ongoing discharge planning and disposition.
[2019-04-16] MEDS: Tamsulosin 0.4 MG CAPCR PO (17:32)
[2019-04-16] MEDS: Pravastatin 40 MG TAB PO (19:36)
[2019-04-17 03:49] LABS: Vancomycin, Trough 14.7 ug/mL (10.0-20.0)
[2019-04-17] MEDS: Normal Saline Flush 10 ML SYR IVP ×2 (04:26→09:02)
[2019-04-17] MEDS: VANCOMYCIN 1,250 MG in Normal Saline 250 ML 166.667 MG IVPB (04:26)
[2019-04-17 07:08] LABS: Abs Immature Grans 0.08 k/cumm (0.0-0.09); Absolute Basophil Count 0.03 k/cumm (0.0-0.2); Absolute Eosinophil Count 0.18 k/cumm (0.0-0.7); Absolute Monocyte Count 1.08 k/cumm (0.11-0.7); Basophils % 0.3; Eosinophils % 1.6; HCT 31.8 % (40.0-50.0); Immature Grans % 0.7; Lymphocytes % 10.5; Mean Corp. HGB Concentration 31.4 g/dL (32.0-36.0); Mean Corpuscular Hemoglobin 27.4 pg (27.0-33.0); Mean Corpuscular Volume 87.1 fL (80-95); Mean Platelet Volume 9.1 fL (8.0-11.0); Monocytes % 9.5; Neutrophils % 77.4; Platelet Count 284 x1000/uL (130-400); RBC 3.65 m/cumm (4.50-6.00); RBC Distribution Width 15.5 % (11.8-14.1)
[2019-04-17 07:11] LABS: Absolute Neutrophil Count 8.82 k/cumm (1.2-6.7)
[2019-04-17 07:18] LABS: Anion Gap 10.6 mmol/L (3-11); BUN 39 mg/dL (7-18); C-Reactive Protein 11.97 mg/dL (0.0-0.3); CO2 17.4 mmol/L (21.0-32.0); CREATININE 3.15 mg/dL (0.70-1.30); Calcium 9.8 mg/dL (8.5-10.1); Chloride 108 mmol/L (98-107); Estimated GFR 19.18 (mL/min/1.73m2); Glucose 145 mg/dL (70-100); Magnesium 2.1 mg/dL (1.8-2.4); Potassium 4.2 mmol/L (3.5-5.1); Sodium 136 mmol/L (136-145)
[2019-04-17 07:23] LABS: INR 3.5 (0.9-1.1); Prothrombin Time 35.1 sec (9.3-11.0)
[2019-04-17 07:25] VITALS: BP 157/81; PULSE 69; RESP 24; TEMP 36.8; O2SAT 96
[2019-04-17 07:56] LABS: Procalcitonin 0.4 ng/mL
--- NOTE | 2019-04-17 07:56 | PGE_ITS ---
Date of Service Date of service: 04/17/19 Time of Service: 07:50 Assessment and Plan (1) Fever: Current visit: Yes Status: Acute He seems to be gradually responding to his antibiotic regimen. I do not have definitive proof that he has bacterial prostatitis or recurrent emphysematous cystitis, but it seems reasonable to treat this gentleman as such (especially with no other obvious source). The quinilones seem to be an appropriate choice of antibiotic. My only suggestion would be a longer course of antibiotic compared to usual. We may want to [place] [facility] [place] get a suggestion regarding a recommended duration of antibiotic. Subjective Interval history since last seen: He finally had an evening without chills. Exam Narrative Exam Narrative: He looks well. He does not appear septic or toxic. His catheter is in place and is draining clear urine. he is awake and alert. Objective Objective Clinical Data: Abnormal lab results 04/16/19 04/17/19 04/17/19 Range/Units 08:45 06:25 06:25 WBC (4.4-10.8) k/cumm RBC (4.50-6.00) m/cumm Hgb (13.5-17.5) g/dL Hct (40.0-50.0) % MCHC (32.0-36.0) g/dL RDW (11.8-14.1) % Absolute Neutrophils (1.2-6.7) k/cumm Absolute Monocytes (0.11-0.7) k/cumm PT 30.9 H 35.1 H (9.3-11.0) sec INR 3.1 H 3.5 H (0.9-1.1) Chloride 108 H (98-107) mmol/L Carbon Dioxide 17.4 L (21.0-32.0) mmol/L BUN 39 H (7-18) mg/dL Creatinine 3.15 H (0.70-1.30) mg/dL Glucose 145 H (70-100) mg/dL C-Reactive Protein 11.97 H (0.0-0.3) mg/dL 04/17/19 Range/Units 06:25 WBC 11.40 H (4.4-10.8) k/cumm RBC 3.65 L (4.50-6.00) m/cumm Hgb 10.0 L (13.5-17.5) g/dL Hct 31.8 L (40.0-50.0) % MCHC 31.4 L (32.0-36.0) g/dL RDW 15.5 H (11.8-14.1) % Absolute Neutrophils 8.82 H (1.2-6.7) k/cumm Absolute Monocytes 1.08 H (0.11-0.7) k/cumm PT (9.3-11.0) sec INR (0.9-1.1) Chloride (98-107) mmol/L Carbon Dioxide (21.0-32.0) mmol/L BUN (7-18) mg/dL Creatinine (0.70-1.30) mg/dL Glucose (70-100) mg/dL C-Reactive Protein (0.0-0.3) mg/dL Vital Signs Temperature 36.9 C 04/16/19 20:00 Temperature Source Tympanic 04/16/19 20:00 Pulse 72 04/16/19 22:16 Pulse Rhythm Regular 04/17/19 04:15 Respiratory Rate 18 04/16/19 20:00 Respiratory Effort 04/17/19 04:15 Respiratory Depth Normal 04/17/19 04:15 Respiratory Pattern Normal 04/17/19 04:15 Blood Pressure 112/68 04/16/19 20:00 Blood Pressure Position Sitting 04/12/19 11:56 Pulse Oximetry 94 L 04/16/19 22:16 Oxygen Delivery Method Room Air 04/16/19 20:00 Oxygen Flow Rate 0 04/16/19 20:00 Pain Level 0 04/16/19 08:02 Comment 04/14/19 15:58 Intake & Output 04/16/19 04/16/19 04/17/19 11:59 23:59 11:59 Intake Total 110 / 750 640 / 750 585 / 585 Output Total 1300 / 2950 1650 / 2950 800 / 800 Balance -1190 / -2200 -1010 / -2200 -215 / -215 Weight 142 kg 141.2 kg Intake: IV 110 / 270 160 / 270 485 / 485 Oral 480 / 480 100 / 100 Output: Urine 1300 / 2950 1650 / 2950 800 / 800 Other: Urine Color Yellow Straw Yellow Urine Appearance Sediment Sediment Clear Hematuria Laboratory Results WBC 11.40 k/cumm (4.4-10.8) H 04/17/19 06:25 RBC 3.65 m/cumm (4.50-6.00) L 04/17/19 06:25 Hgb 10.0 g/dL (13.5-17.5) L 04/17/19 06:25 Hct 31.8 % (40.0-50.0) L 04/17/19 06:25 MCV 87.1 fL (80-95) 04/17/19 06:25 MCH 27.4 pg (27.0-33.0) 04/17/19 06:25 MCHC 31.4 g/dL (32.0-36.0) L 04/17/19 06:25 RDW 15.5 % (11.8-14.1) H 04/17/19 06:25 Plt Count 284 x1000/uL (130-400) 04/17/19 06:25 MPV 9.1 fL (8.0-11.0) 04/17/19 06:25 Immature Gran % 0.7 04/17/19 06:25 Neutrophils % 77.4 04/17/19 06:25 Lymphocytes % 10.5 04/17/19 06:25 Monocytes % 9.5 04/17/19 06:25 Eosinophils % 1.6 04/17/19 06:25 Basophils % 0.3 04/17/19 06:25 Absolute Neutrophils 8.82 k/cumm (1.2-6.7) H 04/17/19 06:25 Absolute Lymphocytes 1.20 k/cumm (1.2-3.4) 04/17/19 06:25 Absolute Monocytes 1.08 k/cumm (0.11-0.7) H 04/17/19 06:25 Absolute Eosinophils 0.18 k/cumm (0.0-0.7) 04/17/19 06:25 Absolute Basophils 0.03 k/cumm (0.0-0.2) 04/17/19 06:25 Differential Comment Rbc morph reviewed 04/15/19 06:32 RBC Morphology See below 04/15/19 06:32 Polychromasia Present 04/15/19 06:32 Hypochromasia 1+ 04/15/19 06:32 ESR 113 MM/HR (1-20) H 04/15/19 06:32 PT 35.1 sec (9.3-11.0) H 04/17/19 06:25 INR 3.5 (0.9-1.1) H 04/17/19 06:25 APTT 38.3 sec (21.0-31.4) H 04/12/19 12:06 Sodium 136 mmol/L (136-145) 04/17/19 06:25 Potassium 4.2 mmol/L (3.5-5.1) 04/17/19 06:25 Chloride 108 mmol/L (98-107) H 04/17/19 06:25 Carbon Dioxide 17.4 mmol/L (21.0-32.0) L 04/17/19 06:25 Anion Gap 10.6 mmol/L (3-11) 04/17/19 06:25 BUN 39 mg/dL (7-18) H 04/17/19 06:25 Creatinine 3.15 mg/dL (0.70-1.30) H 04/17/19 06:25 Estimated GFR/1.73 m2 19.18 (mL/min/1.73m2) 04/17/19 06:25 Glucose 145 mg/dL (70-100) H 04/17/19 06:25 Lactate 0.8 mmol/l (0.6-1.4) 04/13/19 06:55 Calcium 9.8 mg/dL (8.5-10.1) 04/17/19 06:25 Magnesium 2.1 mg/dL (1.8-2.4) 04/17/19 06:25 Total Bilirubin 1.1 mg/dL (0.2-1.0) H 04/12/19 12:00 AST 23 U/L (15-37) 04/12/19 12:00 ALT 16 U/L (12-78) 04/12/19 12:00 Alkaline Phosphatase 118 U/L (46-116) H 04/12/19 12:00 Troponin I Cancelled 04/12/19 12:06 C-Reactive Protein 11.97 mg/dL (0.0-0.3) H 04/17/19 06:25 NT-Pro-B Natriuret Pep Cancelled 04/12/19 12:21 Total Protein 7.3 g/dL (6.4-8.2) 04/12/19 12:00 Albumin 2.5 g/dL (3.4-5.0) L 04/12/19 12:00 Procalcitonin 1.1 ng/mL 04/15/19 06:32 Urine Color Yellow (Yellow) 04/12/19 13:50 Urine Clarity Clear 04/12/19 13:50 Urine pH 7.0 (5-8) 04/12/19 13:50 Ur Specific [place] 1.010 (1.005-1.025) 04/12/19 13:50 Urine Protein 100 mg/dL (Negative) H 04/12/19 13:50 Urine Ketones Negative mg/dL (Negative) 04/12/19 13:50 Urine Blood Large (Negative) H 04/12/19 13:50 Urine Nitrite Positive (Negative) H 04/12/19 13:50 Urine Bilirubin Negative (Negative) 04/12/19 13:50 Urine Urobilinogen 1.0 EU/dL (Up TO 0.2) H 04/12/19 13:50 Ur Leukocyte Esterase Large (Negative) H 04/12/19 13:50 Urine RBC >50 (0-2) H 04/12/19 13:50 Urine WBC >50 HPF (0-5) 04/12/19 13:50 Ur Epithelial Cells Not Applicable 04/12/19 13:50 Urine Crystals Not Applicable 04/12/19 13:50 Urine Bacteria Not Applicable 04/12/19 13:50 Urine Mucus Not Applicable 04/12/19 13:50 Ur Culture Indicated? Yes 04/12/19 13:50 Urine Glucose 100 mg/dL (Negative) 04/12/19 13:50 Vancomycin Trough 14.7 ug/mL (10.0-20.0) 04/17/19 02:56
--- NOTE | 2019-04-17 08:54 | PDOC.CMPRO ---
- If Service Date Differs Date of service: 04/17/19 Time of Service: 08:54 Care Management Progress Note S/O: CM met with Sav in the room he is sitting up in the chair and engaged with CM. He remains on IV antibiotics and oral antibiotics treatment for prostatitis. Anticipate he will be discharged over the weekend he was hopeful to return home today. A: 78 year old male admitted to [facility] 04/12/19 for Pneumonia P: Sav will return home when medically ready. Sav is considering home health nursing at time of discharge. CM to continue to provide support ongoing discharge planning and disposition.
[2019-04-17] MEDS: Nystatin POWDER 60 GM JAR TP (09:01)
[2019-04-17] MEDS: Metoprolol 50 MG TAB PO ×2 (09:03→20:50)
[2019-04-17] MEDS: Multivitamin TAB 1 TAB PO (09:03)
[2019-04-17] MEDS: Omeprazole 20 MG CAPCR PO ×2 (09:03→20:49)
[2019-04-17] MEDS: amLODIPine 5 MG TAB PO (09:03)
[2019-04-17] MEDS: Potassium Chloride 10 MEQ TABCR PO (09:04)
--- NOTE | 2019-04-17 12:25 | PT.INIE ---
Date of service: 04/17/19 Time of Service: 08:36 PT Notes Inpatient Physical Therapy Evaluation Date: 04/17/2019 Referring Doctor: Anita Tran NP PT Orders: PT CONSULT: Generalized weakness Precautions: Fall. Standard. Patient Profile/Admitting Diagnosis: Patient is a 78-year-old male with past medical history significant for right total knee replacement, obesity, diabetes mellitus, and chronic atrial fibrillation who presented to the ED on fever, productive cough, and nasal congestion x3 days. Patient was diagnosed with a urinary tract infectin and acute renal insufficiency. Orders received for functional mobility training, gait and balance training, and therapy discharge planning. 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 He is independent with all mobility related-ADLs using straight cane. 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 They have one supportive daughter who lives locally. Current Functional Limitations: Need for assistance for all transfer and ambulation task using FWW Equipment Owned/DME: Patient states he has walkers, canes, and a wheelchair at home Subjective: Patient is agreeable to a PT consult. Patient is expecting that he is going home today. He does state that he feels a lot better and that he has not had any fevers since yesterday morning. He feels less tired today. He reports that he tries to be careful and not move too much because of fear of falling. Objective: General Observation: Patient sit seen sitting on chair. Bilateral to TEDS on legs. Breathing appeared mildly labored even at rest. Mental Status: Alert and oriented x4 Pain: Patient reported some mild pain on right knee especially with weight bearing. ROM: Right Upper Extremity: Shoulder Flexion WFL. Shoulder abduction WFL. Elbow flexion WFL. Wrist flexion WFL. Functional opening and closing of hand WFL. Left Upper Extremity: Shoulder Flexion WFL. Shoulder abduction WFL. Elbow flexion WFL. Wrist flexion WFL. Functional opening and closing of hand WFL. 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 Hip abduction WFL. Knee flexion 0-100. Ankle dorsiflexion WFL. Ankle plantarflexion WFL. 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 Hip abduction WFL. Knee flexion WFL. Ankle dorsiflexion WFL. Ankle plantarflexion WFL. Strength: Right Upper Extremity: Shoulder flexors 5/5. Shoulder abductors 5/5. Elbow flexors 5/5. Elbow extensors 5/5. Fishing Guide strong. Left Upper Extremity: Shoulder flexors 5/5. Shoulder abductors 5/5. Elbow flexors 5/5. Elbow extensors 5/5. Fishing Guide strong. Right Lower Extremity: Hip flexors 3-/5. Hip abductors 4/5. Knee flexors 3-/5. Knee extensors 4-/5. Ankle dorsiflexors 4/5. Ankle plantarflexors 4/5. Left Lower Extremity:Hip flexors 3-/5. Hip abductors 4/5. Knee flexors3-/5. Knee extensors 4-/5. Ankle dorsiflexors 4/5. Ankle plantarflexors 5/5. Bed Mobility/Transfers: Rolling SBA Supine to sit SBA Sit to supine SBA Sit to stand SBA Stand to sit SBA Bed to chair SBA Chair to bed SBA Gait: Patient tolerated level surface ambulation using F WW with FWB requiring SBA from this PT for 80 feet with 2 standing rests. Minimal verbal cues given for energy conservation, pursed lip breathing and walker management. Gait velocity decreased. Step height decreased. Minimal shortness of breath observed which according to him is his baseline. Oxygen saturation stayed above 90%. Denied dizziness, chest pain, and headache throughout gait activity. Balance: Static Sitting: Good Dynamic Sitting: Good Static Standing: Fair Dynamic Standing: Fair Special Tests: Mobility Limitations Standardized Measure [facility] AM-PAC 6 clicks Basic Mobility Inpatient Short Form: Raw Score: 18 CMS Score: 47% deficit Informed Consent/Education: Patient instructed in purpose of PT consult and plan of care. Patient was educated about about treatment frequency in order to maximize functional mobility performance while reducing onset of fatigue. Assessment: 78-year-old male with diagnosis of urinary tract infection and acute renal insufficiency. Patient presents with clinical signs and symptoms consistent with current/admitting diagnoses that have resulted to mobility limitations, gait instability, generalized weakness, and impairment of motor control as demonstrated by the following impairment level findings: 1. Decreased strength to B LE major muscle groups 2. Impaired sitting/standing balance 3. Impaired activity tolerance/endurance 4. Obesity Impairments are contributing to the following functional limitations: 1. Dependent bed mobility skills 2. Increased dependence with transfers 3. Inability to safely ambulate without assistive device and physical assistance 4. Increase completion time for mobility ADL performance 5. Increased fall risk 6. Inability to negotiate steps alone safely Patient is assessed as a 26253 moderate complexity based on the following: History: Apparent functional mobility decline and reduced activity tolerance as a result of current medical diagnoses of urinary tract renal insufficiency Examination: Underlying impairments and functional limitations as noted above Presentation:Evolving Decision Makin moderate complexity Goals: Goals X1 week 1. Supine-Sit independent 2. Sit-Supine independent 3. Sit-Stand independent 4. Stand-Sit independent 5. Bed-Chair independent 6. Chair-Bed independent 7. Independent gait on level surface with use of least restrictive device for at least 300 feet without report of pain nor dyspnea 8. Independent stair negotiation while holding onto bilateral rails for at least 10 steps without report of pain nor dyspnea 9. Independent with home exercise program 10. Good static and dynamic standing balance/tolerance Plan of Care/Treatment Plan: 1-2x/day, 7 days/week x 1 week. Plan of care has been reviewed with the TUMBLING BARREL PAINTER providing the service under Physical Therapy direction. Initiate Physical Therapy intervention for strengthening, bed mobility, transfers, gait, stairs, balance training, use of assistive device. DISCHARGE RECOMMENDATIONS: Patient will benefit from home health PT services in order to progress mobility level using least restrictive assistive ambulatory device/using no device, assess home safety, identify additional equipment needs, and establish a functional maintenance program that will increase ability of patient to remain at home. No equipment needs at this time. TREATMENT CODE/TIME: 94530 for 34 minutes beginning at 8:36 AM. Thank you very much for this referral. Madhavi Victoria PT, DPT, CLT [facility]
--- NOTE | 2019-04-17 12:31 | IN_ITS ---
Date of service: 04/17/19 Time of Service: 08:36 PT Notes Inpatient Physical Therapy Evaluation Date: 04/17/2019 Referring Doctor: Anita Tran NP PT Orders: PT CONSULT: Generalized weakness Precautions: Fall. Standard. Patient Profile/Admitting Diagnosis: Patient is a 78-year-old male with past medical history significant for right total knee replacement, obesity, diabetes mellitus, and chronic atrial fibrillation who presented to the ED on fever, pr oductive cough, and nasal congestion x3 days. Patient was diagnosed with a urinary tract infectin and acute renal insufficiency. Orders received for functional mobility training, gait and balance training, and therapy discharge planning. 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 He is independent with all mobility related-ADLs using straight cane. 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 They have one supportive daughter who lives locally. Current Functional Limitations: Need for assistance for all transfer and ambulation task using FWW Equipment Owned/DME: Patient states he has walkers, canes, and a wheelchair at home Subjective: Patient is agreeable to a PT consult. Patient is expecting that he is going home today. He does state that he feels a lot better and that he has not had any fevers since yesterday morning. He feels less tired today. He reports that he tries to be careful and not move too much because of fear of falling. Objective: General Observation: Patient sit seen sitting on chair. Bilateral to TEDS on legs. Breathing appeared mildly labored even at rest. Mental Status: Alert and oriented x4 Pain: Patient reported some mild pain on right knee especially with weight bearing. ROM: Right Upper Extremity: Shoulder Flexion WFL. Shoulder abduction WFL. Elbow flexion WFL. Wrist flexion WFL. Functional opening and closing of hand WFL. Left Upper Extremity: Shoulder Flexion WFL. Shoulder abduction WFL. Elbow flexion WFL. Wrist flexion WFL. Functional opening and closing of hand WFL. 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 Hip abduction WFL. Knee flexion 0-100. Ankle dorsiflexion WFL. Ankle plantarflexion WFL. 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 Hip abduction WFL. Knee flexion WFL. Ankle dorsiflexion WFL. Ankle plantarflexion WFL. Strength: Right Upper Extremity: Shoulder flexors 5/5. Shoulder abductors 5/5. Elbow flexors 5/5. Elbow extensors 5/5. Civil Estimator strong. Left Upper Extremity: Shoulder flexors 5/5. Shoulder abductors 5/5. Elbow flexors 5/5. Elbow extensors 5/5. Civil Estimator strong. Right Lower Extremity: Hip flexors 3-/5. Hip abductors 4/5. Knee flexors 3-/5. Knee extensors 4-/5. Ankle dorsiflexors 4/5. Ankle plantarflexors 4/5. Left Lower Extremity:Hip flexors 3-/5. Hip abductors 4/5. Knee flexors3-/5. Knee extensors 4-/5. Ankle dorsiflexors 4/5. Ankle plantarflexors 5/5. Bed Mobility/Transfers: Rolling SBA Supine to sit SBA Sit to supine SBA Sit to stand SBA Stand to sit SBA Bed to chair SBA Chair to bed SBA Gait: Patient tolerated level surface ambulation using F WW with FWB requiring SBA from this PT for 80 feet with 2 standing rests. Minimal verbal cues given for energy conservation, pursed lip breathing and walker management. Gait velocity decreased. Step height decreased. Minimal shortness of breath observed which according to him is his baseline. Oxygen saturation stayed above 90%. Denied dizziness, chest pain, and headache throughout gait activity. Balance: Static Sitting: Good Dynamic Sitting: Good Static Standing: Fair Dynamic Standing: Fair Special Tests: Mobility Limitations Standardized Measure [facility] AM-PAC 6 clicks Basic Mobility Inpatient Short Form: Raw Score: 18 CMS Score: 47% deficit Informed Consent/Education: Patient instructed in purpose of PT consult and plan of care. Patient was educated about about treatment frequency in order to maximize functional mobility performance while reducing onset of fatigue. Assessment: 78-year-old male with diagnosis of urinary tract infection and acute renal insufficiency. Patient presents with clinical signs and symptoms consistent with current/admitting diagnoses that have resulted to mobility limitations, gait instability, generalized weakness, and impairment of motor control as demonstrated by the following impairment level findings: 1. Decreased strength to B LE major muscle groups 2. Impaired sitting/standing balance 3. Impaired activity tolerance/endurance 4. Obesity Impairments are contributing to the following functional limitations: 1. Dependent bed mobility skills 2. Increased dependence with transfers 3. Inability to safely ambulate without assistive device and physical assistance 4. Increase completion time for mobility ADL performance 5. Increased fall risk 6. Inability to negotiate steps alone safely Patient is assessed as a 06156 moderate complexity based on the following: History: Apparent functional mobility decline and reduced activity tolerance as a result of current medical diagnoses of urinary tract renal insufficiency Examination: Underlying impairments and functional limitations as noted above Presentation:Evolving Decision Makin moderate complexity Goals: Goals X1 week 1. Supine-Sit independent 2. Sit-Supine independent 3. Sit-Stand independent 4. Stand-Sit independent 5. Bed-Chair independent 6. Chair-Bed independent 7. Independent gait on level surface with use of least restrictive device for at least 300 feet without report of pain nor dyspnea 8. Independent stair negotiation while holding onto bilateral rails for at least 10 steps without report of pain nor dyspnea 9. Independent with home exercise program 10. Good static and dynamic standing balance/tolerance Plan of Care/Treatment Plan: 1-2x/day, 7 days/week x 1 week. Plan of care has been reviewed with the MANAGER PERFORMANCE IMPROVEMENT providing the service under Physical Therapy direction. Initiate Physical Therapy intervention for strengthening, bed mobility, transfers, gait, stairs, balance training, use of assistive device. DISCHARGE RECOMMENDATIONS: Patient will benefit from home health PT services in order to progress mobility level using least restrictive assistive ambulatory device/using no device, assess home safety, identify additional equipment needs, and establish a functional maintenance program that will increase ability of patient to remain at home. No equipment needs at this time. TREATMENT CODE/TIME: 51621 for 34 minutes beginning at 8:36 AM. Thank you very much for this referral. Madhavi Victoria PT, DPT, CLT [facility]
[2019-04-17] MEDS: Insulin Aspart 300 UNITS/3 ML PEN SC ×2 (12:46→16:43)
--- NOTE | 2019-04-17 13:36 | PGE_ITS ---
Date of Service Date of service: 04/17/19 Time of Service: 13:34 Assessment and Plan (1) Fever: Current visit: Yes Status: Acute Possible prostatitis with urine culture growing only <10,000 colonies of enterococcus and klebsiella with a positive UA and urinary retention. CRP markedly elevated, trending down today from >13 to 11.97. Also with potential infiltrate by CXR on admission, Chest CT yesterday showed no acute process. His procalcitonin was 0.6 on admission. He is on day #5 IV Levaquin and Vancomycin. He remained febrile through day #4 of IV antibiotic therapy. He had 2 doses of IV Cefepime to broaden coverage in the setting of continued fevers, however, he had worsening kidney function and it was discontinued. Blood cultures with no growth to date. Repeat blood cultures with no growth. Respiratory symptoms improved. Procalcitonin level down to 0.4. CRP improving. No fever in 24 hours. Urology consulted, agrees with Levaquin for possible prostatitis. Does not suspect prostate abscess based on digital rectal exam. He recommends up to 6 weeks of antibiotics for presumptive diagnosis of prostatitis or recurrent emphysematous cystitis. Also recommends self catheterization or continuing griffin catheter at discharge due to history of urinary retention. His case was discussed with infectious disease who recommended requesting that the lab run sensitivities, this has been requested. They recommend changing vancomycin to amoxicillin (which could potentially be changed to augmentin to cover both entercoccus and klebsiella based on sensitivities). For now, continue levaquin to cover Klebsiella (monitor cultures to determine if this can be discontinued). If both bacteria are sensitive to augmentin, will need 28 day course. Continue to monitor for fevers overnight. (2) Acute renal insufficiency: Current visit: No Status: Acute Creatinine remains elevated. Renal ultrasound on 04/14/19 showed bilateral nephrolithiasis, nonobstructing, no hydronephrosis, right renal cyst, no evidence of obstructive uropathy. Cefepime discontinued as above. Glipizide discontinued. Admits to poor oral intake, agrees to increase oral intake. Became fluid overloaded with gentle IV fluid hydration. If increased oral intake does not improve renal function. Consider gentle IV fluids. Continue to follow BMP. (3) BPH (benign prostatic hyperplasia): Current visit: No Status: Chronic With Urinary retention in setting of likely prostatitis. Continue alpha geraldine, Griffin Catheter in place. Will likely be discharged home with griffin in place. Voiding trial tomorrow. (4) GERD (gastroesophageal reflux disease): Current visit: No Status: Chronic Continue PPI. (5) Atrial fibrillation: Current visit: Yes Status: Chronic With heart rate irregularly irregular, not tachycardic. INR currently supratherapeutic at 3.5. Hold Coumadin. Continue metoprolol for rate control. Continue to monitor daily INR. (6) Hyperlipidemia: Current visit: No Status: Chronic Continue statin. (7) Diabetes mellitus type 2 in obese: Current visit: No Status: Chronic He was experiencing low fasting blood glucose. Given worsening renal function his glipizide was placed on hold. Continue short acting insulin via sliding scale. Blood glucose 126 by morning labs. Continue to monitor blood glucose before meals. Resume Glipizide when indicated. (8) LUCAS on CPAP: Current visit: No Status: Chronic Continue CPAP. (9) DVT prophylaxis: Current visit: No Status: Acute Supratherapeutic on Coumadin. Hold dose tonight. Continue to monitor daily INR (10) Discharge planning issues: Current visit: Yes Status: Acute He is a FULL CODE. Discussed code status and he wishes to remain a full code. He is physically deconditioned, continue PT. This case was discussed with Dr. Carmona who is in agreement. Subjective Interval history since last seen: Mr. Winkler reports feeling better today, no fevers or chills overnight. He feels his breathing is at his baseline, he denies dizziness, shortness of breath, wheezing or coughing. He denies any chest pain/pressure, palpitations, he is eating and drinking and tolerating his diet. He reports that he has not been drinking well because he does not like the water here. He is asking his to bring some water in from home. He denies abdominal pain, nausea, vomiting, diarrhea, edema. He was seen by urology yesterday who performed a rectal exam. He is inquiring when he may be able to go home. Exam Narrative Exam Narrative: General: elderly man sitting up at the edge of the bed. He is awake and alert. He does not appear to be in any respiratory distress. He is alert and oriented, pleasant and cooperative. HEENT: Normocephalic, atraumatic, pupils equal round, extraocular movements intact, mucous membranes moist. Neck: Supple CV: Irregularly irregular. Non-tachycardic. No murmur appreciated. Pulmonary: Respirations appear unlabored, shallow and slightly tachypnic at times. Lung sounds clear throughout, No rales or wheezing. Abdomen: Large, round abdomen, normal active bowel sounds in all 4 quadrants, soft, nontender, nondistended. No CVA tenderness. Vascular: trace bilateral lower extremity edema around the ankles, TEDs on bilaterally. Hypertrophic toenails. DP pulses palpable bilaterally. Psych: Normal mood and affect. Objective Objective Clinical Data: Abnormal lab results 04/17/19 04/17/19 04/17/19 Range/Units 06:25 06:25 06:25 WBC 11.40 H (4.4-10.8) k/cumm RBC 3.65 L (4.50-6.00) m/cumm Hgb 10.0 L (13.5-17.5) g/dL Hct 31.8 L (40.0-50.0) % MCHC 31.4 L (32.0-36.0) g/dL RDW 15.5 H (11.8-14.1) % Absolute Neutrophils 8.82 H (1.2-6.7) k/cumm Absolute Monocytes 1.08 H (0.11-0.7) k/cumm PT 35.1 H (9.3-11.0) sec INR 3.5 H (0.9-1.1) Chloride 108 H (98-107) mmol/L Carbon Dioxide 17.4 L (21.0-32.0) mmol/L BUN 39 H (7-18) mg/dL Creatinine 3.15 H (0.70-1.30) mg/dL Glucose 145 H (70-100) mg/dL C-Reactive Protein 11.97 H (0.0-0.3) mg/dL Vital Signs Temperature 36.8 C 04/17/19 07:25 Temperature Source Tympanic 04/17/19 07:25 Pulse 69 04/17/19 07:25 Pulse Rhythm Irregular 04/17/19 09:05 Respiratory Rate 24 04/17/19 07:25 Respiratory Effort 04/17/19 09:05 Respiratory Depth Shallow 04/17/19 09:05 Respiratory Pattern Normal 04/17/19 09:05 Blood Pressure 157/81 H 04/17/19 07:25 Blood Pressure Position Sitting 04/12/19 11:56 Pulse Oximetry 96 04/17/19 07:25 Oxygen Delivery Method Room Air 04/17/19 07:25 Oxygen Flow Rate 0 04/17/19 07:25 Pain Level 0 04/16/19 08:02 Comment 04/14/19 15:58 Intake & Output 04/16/19 04/17/19 04/17/19 23:59 11:59 23:59 Intake Total 640 / 750 585 / 585 Output Total 1650 / 2950 800 / 1500 700 / 1500 Balance -1010 / -2200 -215 / -915 -700 / -915 Weight 141.2 kg Intake: IV 160 / 270 485 / 485 Oral 480 / 480 100 / 100 Output: Urine 1650 / 2950 800 / 1500 700 / 1500 Other: Urine Color Straw Yellow Pale Light Hui Urine Appearance Sediment Clear Cloudy Hematuria Clots Laboratory Results WBC 11.40 k/cumm (4.4-10.8) H 04/17/19 06:25 RBC 3.65 m/cumm (4.50-6.00) L 04/17/19 06:25 Hgb 10.0 g/dL (13.5-17.5) L 04/17/19 06:25 Hct 31.8 % (40.0-50.0) L 04/17/19 06:25 MCV 87.1 fL (80-95) 04/17/19 06:25 MCH 27.4 pg (27.0-33.0) 04/17/19 06:25 MCHC 31.4 g/dL (32.0-36.0) L 04/17/19 06:25 RDW 15.5 % (11.8-14.1) H 04/17/19 06:25 Plt Count 284 x1000/uL (130-400) 04/17/19 06:25 MPV 9.1 fL (8.0-11.0) 04/17/19 06:25 Immature Gran % 0.7 04/17/19 06:25 Neutrophils % 77.4 04/17/19 06:25 Lymphocytes % 10.5 04/17/19 06:25 Monocytes % 9.5 04/17/19 06:25 Eosinophils % 1.6 04/17/19 06:25 Basophils % 0.3 04/17/19 06:25 Absolute Neutrophils 8.82 k/cumm (1.2-6.7) H 04/17/19 06:25 Absolute Lymphocytes 1.20 k/cumm (1.2-3.4) 04/17/19 06:25 Absolute Monocytes 1.08 k/cumm (0.11-0.7) H 04/17/19 06:25 Absolute Eosinophils 0.18 k/cumm (0.0-0.7) 04/17/19 06:25 Absolute Basophils 0.03 k/cumm (0.0-0.2) 04/17/19 06:25 Differential Comment Rbc morph reviewed 04/15/19 06:32 RBC Morphology See below 04/15/19 06:32 Polychromasia Present 04/15/19 06:32 Hypochromasia 1+ 04/15/19 06:32 ESR 113 MM/HR (1-20) H 04/15/19 06:32 PT 35.1 sec (9.3-11.0) H 04/17/19 06:25 INR 3.5 (0.9-1.1) H 04/17/19 06:25 APTT 38.3 sec (21.0-31.4) H 04/12/19 12:06 Sodium 136 mmol/L (136-145) 04/17/19 06:25 Potassium 4.2 mmol/L (3.5-5.1) 04/17/19 06:25 Chloride 108 mmol/L (98-107) H 04/17/19 06:25 Carbon Dioxide 17.4 mmol/L (21.0-32.0) L 04/17/19 06:25 Anion Gap 10.6 mmol/L (3-11) 04/17/19 06:25 BUN 39 mg/dL (7-18) H 04/17/19 06:25 Creatinine 3.15 mg/dL (0.70-1.30) H 04/17/19 06:25 Estimated GFR/1.73 m2 19.18 (mL/min/1.73m2) 04/17/19 06:25 Glucose 145 mg/dL (70-100) H 04/17/19 06:25 Lactate 0.8 mmol/l (0.6-1.4) 04/13/19 06:55 Calcium 9.8 mg/dL (8.5-10.1) 04/17/19 06:25 Magnesium 2.1 mg/dL (1.8-2.4) 04/17/19 06:25 Total Bilirubin 1.1 mg/dL (0.2-1.0) H 04/12/19 12:00 AST 23 U/L (15-37) 04/12/19 12:00 ALT 16 U/L (12-78) 04/12/19 12:00 Alkaline Phosphatase 118 U/L (46-116) H 04/12/19 12:00 Troponin I Cancelled 04/12/19 12:06 C-Reactive Protein 11.97 mg/dL (0.0-0.3) H 04/17/19 06:25 NT-Pro-B Natriuret Pep Cancelled 04/12/19 12:21 Total Protein 7.3 g/dL (6.4-8.2) 04/12/19 12:00 Albumin 2.5 g/dL (3.4-5.0) L 04/12/19 12:00 Procalcitonin 0.4 ng/mL 04/17/19 06:25 Urine Color Yellow (Yellow) 04/12/19 13:50 Urine Clarity Clear 04/12/19 13:50 Urine pH 7.0 (5-8) 04/12/19 13:50 Ur Specific [place] 1.010 (1.005-1.025) 04/12/19 13:50 Urine Protein 100 mg/dL (Negative) H 04/12/19 13:50 Urine Ketones Negative mg/dL (Negative) 04/12/19 13:50 Urine Blood Large (Negative) H 04/12/19 13:50 Urine Nitrite Positive (Negative) H 04/12/19 13:50 Urine Bilirubin Negative (Negative) 04/12/19 13:50 Urine Urobilinogen 1.0 EU/dL (Up TO 0.2) H 04/12/19 13:50 Ur Leukocyte Esterase Large (Negative) H 04/12/19 13:50 Urine RBC >50 (0-2) H 04/12/19 13:50 Urine WBC >50 HPF (0-5) 04/12/19 13:50 Ur Epithelial Cells Not Applicable 04/12/19 13:50 Urine Crystals Not Applicable 04/12/19 13:50 Urine Bacteria Not Applicable 04/12/19 13:50 Urine Mucus Not Applicable 04/12/19 13:50 Ur Culture Indicated? Yes 04/12/19 13:50 Urine Glucose 100 mg/dL (Negative) 04/12/19 13:50 Vancomycin Trough 14.7 ug/mL (10.0-20.0) 04/17/19 02:56
--- NOTE | 2019-04-17 13:37 | PT.INNT ---
Date of service: 04/17/19 Time of Service: 13:37 PT Notes 04/17/19 Pt refuses PM PT today due to fatigue. He would like PT to come back in the AM. Mari Callahan, [phone] DIRECTORY ASSISTANCE OPERATOR
[2019-04-17 14:14] VITALS: TEMP 37.2
[2019-04-17 15:38] VITALS: BP 123/73; PULSE 74; RESP 18; TEMP 37.2; O2SAT 97
[2019-04-17 15:52] VITALS: O2SAT 97
[2019-04-17 16:45] VITALS: TEMP 37
[2019-04-17] MEDS: Tamsulosin 0.4 MG CAPCR PO (17:34)
[2019-04-17] MEDS: Amoxicillin 500 MG CAP PO (20:49)
[2019-04-17] MEDS: Acetaminophen 325 MG TAB PO (20:50)
[2019-04-17] MEDS: Pravastatin 40 MG TAB PO (20:50)
[2019-04-17 20:57] VITALS: BP 124/81; PULSE 93; RESP 18; TEMP 36.8; O2SAT 96
[2019-04-18] VITALS (10 sets, daily range): BP systolic 112–164; BP diastolic 71–96; PULSE 67–101; RESP 1–23; TEMP 36.8–38.3; O2SAT 95–98
[2019-04-18 07:04] LABS: Abs Immature Grans 0.13 k/cumm (0.0-0.09); Absolute Basophil Count 0.04 k/cumm (0.0-0.2); Absolute Lymphocyte Count 1.62 k/cumm (1.2-3.4); Absolute Monocyte Count 1.12 k/cumm (0.11-0.7); Anion Gap 10.7 mmol/L (3-11); BUN 40 mg/dL (7-18); Basophils % 0.3; CO2 19.3 mmol/L (21.0-32.0); CREATININE 3.06 mg/dL (0.70-1.30); Calcium 11.1 mg/dL (8.5-10.1); Chloride 107 mmol/L (98-107); Eosinophils % 2.4; Estimated GFR 19.83 (mL/min/1.73m2); Glucose 145 mg/dL (70-100); HCT 34.3 % (40.0-50.0); HGB 10.8 g/dL (13.5-17.5); Lymphocytes % 12.3; Magnesium 2.1 mg/dL (1.8-2.4); Mean Corp. HGB Concentration 31.5 g/dL (32.0-36.0); Mean Corpuscular Hemoglobin 27.5 pg (27.0-33.0); Mean Corpuscular Volume 87.3 fL (80-95); Mean Platelet Volume 8.9 fL (8.0-11.0); Monocytes % 8.5; Neutrophils % 75.5; Platelet Count 298 x1000/uL (130-400); Potassium 4.7 mmol/L (3.5-5.1); RBC 3.93 m/cumm (4.50-6.00); RBC Distribution Width 15.5 % (11.8-14.1); Sodium 137 mmol/L (136-145); White Blood Cell Count 13.18 k/cumm (4.4-10.8)
[2019-04-18 07:06] LABS: Absolute Eosinophil Count 0.32 k/cumm (0.0-0.7); Absolute Neutrophil Count 9.95 k/cumm (1.2-6.7)
[2019-04-18 07:09] LABS: INR 3.2 (0.9-1.1); Prothrombin Time 32.3 sec (9.3-11.0)
[2019-04-18] MEDS: Nystatin POWDER 60 GM JAR TP (07:38)
[2019-04-18] MEDS: Normal Saline Flush 10 ML SYR IVP ×2 (07:39→13:26)
[2019-04-18] MEDS: Acetaminophen 325 MG TAB PO ×2 (07:40→20:29)
[2019-04-18] MEDS: Amoxicillin 500 MG CAP PO ×2 (07:40→20:29)
[2019-04-18] MEDS: amLODIPine 5 MG TAB PO (07:41)
[2019-04-18] MEDS: Metoprolol 50 MG TAB PO ×2 (07:41→20:29)
[2019-04-18] MEDS: Multivitamin TAB 1 TAB PO (07:41)
[2019-04-18] MEDS: Potassium Chloride 10 MEQ TABCR PO (07:41)
[2019-04-18] MEDS: Omeprazole 20 MG CAPCR PO ×2 (07:41→20:29)
[2019-04-18] MEDS: Albuterol/Ipratropium 3 ML UPD VIAL UPD (07:48)
[2019-04-18] MEDS: Hydrogen Peroxide 3% 480 ML BTL TP (09:43)
--- NOTE | 2019-04-18 09:59 | DI.US_ITS ---
SYMPTOM/DIAGNOSIS: PERSISTENT FEVER, EDEMA, ? DVT DUPLEX VENOUS ULTRASOUND BOTH LOWER EXTREMITIES: The study was carried out according to the usual protocol. The superficial, femoral, popliteal and proximal trifurcation in the superior portion of the legs are well seen. Good compressibility is noted throughout. Flow is demonstrated and flow augmentation was easily elicited with calf compression. SUMMARY: There is no evidence of DVT in either lower extremity.
--- NOTE | 2019-04-18 10:08 | PGE_ITS ---
Date of Service Date of service: 04/18/19 Time of Service: 10:03 Assessment and Plan (1) Fever: Current visit: Yes Status: Acute I would have expected more improvement if we were dealing with UTI/prostatitis/emphysematous cystitis. It may be time to have abdominal imaging to make sure we are dealing with an unrecognized process. Subjective Interval history since last seen: He has had blood and clots in his catheter intermittently. He is known to have a bladder stone from previous scans. He has not been felt to be an anesthesia candidate for surgical treatment of his stones or his enlarged prostate. Exam Narrative Exam Narrative: He continues to have fevers. I hand irrigated his catheter and no clots were obtained. Objective Objective Clinical Data: Abnormal lab results 04/18/19 04/18/19 04/18/19 Range/Units 06:30 06:30 06:30 WBC 13.18 H (4.4-10.8) k/cumm RBC 3.93 L (4.50-6.00) m/cumm Hgb 10.8 L (13.5-17.5) g/dL Hct 34.3 L (40.0-50.0) % MCHC 31.5 L (32.0-36.0) g/dL RDW 15.5 H (11.8-14.1) % Absolute Neutrophils 9.95 H (1.2-6.7) k/cumm Absolute Monocytes 1.12 H (0.11-0.7) k/cumm PT 32.3 H (9.3-11.0) sec INR 3.2 H (0.9-1.1) Carbon Dioxide 19.3 L (21.0-32.0) mmol/L BUN 40 H (7-18) mg/dL Creatinine 3.06 H (0.70-1.30) mg/dL Glucose 145 H (70-100) mg/dL Calcium 11.1 H (8.5-10.1) mg/dL Vital Signs Temperature 38.3 C H 04/18/19 07:40 Temperature Source Tympanic 04/18/19 07:10 Pulse 101 H 04/18/19 07:10 Pulse Rhythm Irregular 04/18/19 09:17 Respiratory Rate 20 04/18/19 07:10 Respiratory Effort Accessory Muscle Use 04/18/19 09:17 Respiratory Depth Shallow 04/18/19 09:17 Respiratory Pattern Irregular 04/18/19 09:17 Blood Pressure 164/96 H 04/18/19 07:10 Blood Pressure Position Sitting 04/12/19 11:56 Pulse Oximetry 98 04/18/19 07:10 Oxygen Delivery Method Room Air 04/18/19 07:10 Oxygen Flow Rate 0 04/18/19 07:10 Pain Level 0 04/18/19 07:10 Comment 04/14/19 15:58 Intake & Output 04/17/19 04/17/19 04/18/19 11:59 23:59 11:59 Intake Total 1065 / 2665 1600 / 2665 1140 / 1140 Output Total 800 / 3000 2200 / 3000 1100 / 1100 Balance 265 / -335 -600 / -335 40 / 40 Weight 141.2 kg 142.4 kg Intake: IV 485 / 485 Oral 580 / 2180 1600 / 2180 1140 / 1140 Output: Urine 800 / 3000 2200 / 3000 1100 / 1100 Other: Urine Color Yellow Light Hui Light Hui Urine Appearance Clear Clear Clear Comment patient was flushed by Dr. Santos today, he reports no resistance and good return, no clots noted in return Stool Occult Blood Negative Stool Size Large Stool Characteristics Soft Formed Laboratory Results WBC 13.18 k/cumm (4.4-10.8) H 04/18/19 06:30 RBC 3.93 m/cumm (4.50-6.00) L 04/18/19 06:30 Hgb 10.8 g/dL (13.5-17.5) L 04/18/19 06:30 Hct 34.3 % (40.0-50.0) L 04/18/19 06:30 MCV 87.3 fL (80-95) 04/18/19 06:30 MCH 27.5 pg (27.0-33.0) 04/18/19 06:30 MCHC 31.5 g/dL (32.0-36.0) L 04/18/19 06:30 RDW 15.5 % (11.8-14.1) H 04/18/19 06:30 Plt Count 298 x1000/uL (130-400) 04/18/19 06:30 MPV 8.9 fL (8.0-11.0) 04/18/19 06:30 Immature Gran % 1.0 04/18/19 06:30 Neutrophils % 75.5 04/18/19 06:30 Lymphocytes % 12.3 04/18/19 06:30 Monocytes % 8.5 04/18/19 06:30 Eosinophils % 2.4 04/18/19 06:30 Basophils % 0.3 04/18/19 06:30 Absolute Neutrophils 9.95 k/cumm (1.2-6.7) H 04/18/19 06:30 Absolute Lymphocytes 1.62 k/cumm (1.2-3.4) 04/18/19 06:30 Absolute Monocytes 1.12 k/cumm (0.11-0.7) H 04/18/19 06:30 Absolute Eosinophils 0.32 k/cumm (0.0-0.7) 04/18/19 06:30 Absolute Basophils 0.04 k/cumm (0.0-0.2) 04/18/19 06:30 Differential Comment Rbc morph reviewed 04/15/19 06:32 RBC Morphology See below 04/15/19 06:32 Polychromasia Present 04/15/19 06:32 Hypochromasia 1+ 04/15/19 06:32 ESR 113 MM/HR (1-20) H 04/15/19 06:32 PT 32.3 sec (9.3-11.0) H 04/18/19 06:30 INR 3.2 (0.9-1.1) H 04/18/19 06:30 APTT 38.3 sec (21.0-31.4) H 04/12/19 12:06 Sodium 137 mmol/L (136-145) 04/18/19 06:30 Potassium 4.7 mmol/L (3.5-5.1) 04/18/19 06:30 Chloride 107 mmol/L (98-107) 04/18/19 06:30 Carbon Dioxide 19.3 mmol/L (21.0-32.0) L 04/18/19 06:30 Anion Gap 10.7 mmol/L (3-11) 04/18/19 06:30 BUN 40 mg/dL (7-18) H 04/18/19 06:30 Creatinine 3.06 mg/dL (0.70-1.30) H 04/18/19 06:30 Estimated GFR/1.73 m2 19.83 (mL/min/1.73m2) 04/18/19 06:30 Glucose 145 mg/dL (70-100) H 04/18/19 06:30 Lactate 0.8 mmol/l (0.6-1.4) 04/13/19 06:55 Calcium 11.1 mg/dL (8.5-10.1) H 04/18/19 06:30 Magnesium 2.1 mg/dL (1.8-2.4) 04/18/19 06:30 Total Bilirubin 1.1 mg/dL (0.2-1.0) H 04/12/19 12:00 AST 23 U/L (15-37) 04/12/19 12:00 ALT 16 U/L (12-78) 04/12/19 12:00 Alkaline Phosphatase 118 U/L (46-116) H 04/12/19 12:00 Troponin I Cancelled 04/12/19 12:06 C-Reactive Protein 11.97 mg/dL (0.0-0.3) H 04/17/19 06:25 NT-Pro-B Natriuret Pep Cancelled 04/12/19 12:21 Total Protein 7.3 g/dL (6.4-8.2) 04/12/19 12:00 Albumin 2.5 g/dL (3.4-5.0) L 04/12/19 12:00 Procalcitonin 0.4 ng/mL 04/17/19 06:25 Urine Color Yellow (Yellow) 04/12/19 13:50 Urine Clarity Clear 04/12/19 13:50 Urine pH 7.0 (5-8) 04/12/19 13:50 Ur Specific [place] 1.010 (1.005-1.025) 04/12/19 13:50 Urine Protein 100 mg/dL (Negative) H 04/12/19 13:50 Urine Ketones Negative mg/dL (Negative) 04/12/19 13:50 Urine Blood Large (Negative) H 04/12/19 13:50 Urine Nitrite Positive (Negative) H 04/12/19 13:50 Urine Bilirubin Negative (Negative) 04/12/19 13:50 Urine Urobilinogen 1.0 EU/dL (Up TO 0.2) H 04/12/19 13:50 Ur Leukocyte Esterase Large (Negative) H 04/12/19 13:50 Urine RBC >50 (0-2) H 04/12/19 13:50 Urine WBC >50 HPF (0-5) 04/12/19 13:50 Ur Epithelial Cells Not Applicable 04/12/19 13:50 Urine Crystals Not Applicable 04/12/19 13:50 Urine Bacteria Not Applicable 04/12/19 13:50 Urine Mucus Not Applicable 04/12/19 13:50 Ur Culture Indicated? Yes 04/12/19 13:50 Urine Glucose 100 mg/dL (Negative) 04/12/19 13:50 Vancomycin Trough 14.7 ug/mL (10.0-20.0) 04/17/19 02:56
[2019-04-18 10:20] LABS: Bilirubin Negative (Negative); Blood Large (Negative); Clarity Cloudy; Glucose 100 mg/dL (Negative); Ketones Negative (Negative); Leukocyte Esterase Small (Negative); Nitrite Negative (Negative); Urobilinogen 0.2 EU/dL (Up TO 0.2); pH 6.5 (5-8)
--- NOTE | 2019-04-18 10:23 | PT.INNT ---
Date of service: 04/18/19 Time of Service: 10:24 PT Notes 04/18/19 Pt is out of room for diagnostics. I will see pt tomorrow.
[2019-04-18 10:28] LABS: RBC >50 (0-2); WBC 20-50 HPF (0-5)
[2019-04-18 10:29] LABS: Bacteria Few HPF (Negative); C & S Indicated? C&S Done As Ordered; Casts Negative LPF (Negative); Crystals Few Amorphous HPF (Negative); Epithelial Cells Negative HPF (Negative); Mucus Trace (Negative)
--- NOTE | 2019-04-18 10:30 | DI.COMBO_ITS ---
SYMPTOM/DIAGNOSIS: DYSPNEA, PERSISTENT FEVER, ? RENAL ABSCESS ABDOMEN AND PELVIC CT: CT examination of the abdomen and pelvis was performed without contrast administration. There is significant motion artifact on this study which limits interpretation. Liver and spleen are grossly unremarkable by noncontrast criteria as is the pancreas. Gallbladder appears to have been surgically removed. Abdominal aorta is of normal diameter. There is a fat containing lower abdominal wall ventral hernia and fat containing bilateral inguinal hernias. No gross free intraperitoneal air. No significant adenopathy. There are multiple bilateral non obstructing renal calculi. There are multiple calculi in the urinary bladder. There is a griffin catheter in the urinary bladder. Note is also made of elongated calculus or group of calculi of the ureteropelvic junction on the left which appear to be causing moderate left hydronephrosis. Presumed upper pole 8 cm. right renal cyst noted. Presumed exophytic, 1-2 cm. left lower pole renal cyst noted. CONCLUSION: Limited study. Multiple bilateral non obstructing renal calculi and bladder calculi. Obstructing calculus or calculi at left UPJ measuring up to about 16 by 8 mm. in diameter on coronal images. PA AND LATERAL CHEST: The heart is mildly enlarged. The lungs are grossly clear and well expanded. No pleural effusion is seen. CONCLUSION: No evidence of acute disease.
--- NOTE | 2019-04-18 10:41 | DI.VRAD_ITS ---
EXAM: CT Abdomen and Pelvis Without Contrast EXAM DATE/TIME: 04/18/2019 10:00 AM CLINICAL HISTORY: 78 years old, male; Signs and symptoms; Other: Persistent fevers; ? Renal abscess. ; Patient HX: Wo due to patients renal function TECHNIQUE: Imaging protocol: Axial computed tomography images of the abdomen and pelvis without contrast. Coronal and sagittal reformatted images were created and reviewed. Radiation optimization: All CT scans at this facility use at least one of these dose optimization techniques: automated exposure control; mA and/or kV adjustment per patient size (includes targeted exams where dose is matched to clinical indication); or iterative reconstruction. COMPARISON: CT pelvic wo 09/09/2018 9:39 PM FINDINGS: ABDOMEN: Liver: Normal. No mass. Gallbladder and bile ducts: Previous cholecystectomy. Pancreas: Normal. No ductal dilation. Spleen: Normal. No splenomegaly. Adrenals: Normal. No mass. Kidneys and ureters: Mild left obstructive uropathy with bilobed calculus at the ureteropelvic junction measuring 1.1 x 1.4 cm. Exophytic right cortical renal cyst along the superior pole measures 7.6 x 7.6 cm. Multiple large, nonobstructing renal calculi bilaterally. Limited evaluation for renal abscess without intravenous contrast. Stomach and bowel: Normal. No obstruction. No mucosal thickening. Appendix: No evidence of appendicitis. PELVIS: Bladder: Multiple bladder calculi. Reproductive: Unremarkable as visualized. ABDOMEN and PELVIS: Intraperitoneal space: Normal. No free air. No significant fluid collection. Bones/joints: No acute fracture. No dislocation. Soft tissues: Umbilical hernia containing fat. Vasculature: Normal. No abdominal aortic aneurysm. Lymph nodes: Normal. No enlarged lymph nodes. IMPRESSION: 1. Mild left obstructive uropathy with bilobed calculus at the ureteropelvic junction measuring 1.1 x 1.4 cm. 2. Exophytic right cortical renal cyst along the superior pole measures 7.6 x 7.6 cm. 3. Multiple large, nonobstructing renal calculi bilaterally. 4. Multiple bladder calculi. 5. Limited evaluation for renal abscess without intravenous contrast. Dictated and Authenticated by: Nusrat Flores MD. Ordering:FAUZIA Briones MD
--- NOTE | 2019-04-18 10:43 | DI.VRAD_ITS ---
EXAM: XR Chest, 2 Views EXAM DATE/TIME: 04/18/2019 10:31 AM CLINICAL HISTORY: 78 years old, male; Signs and symptoms; Other: Dyspnea TECHNIQUE: Imaging protocol: XR of the chest, 2 views. COMPARISON: SC XR PORTABLE CHEST AP 04/12/2019 12:12 PM FINDINGS: Lungs: Unremarkable. No consolidation. Pleural space: Unremarkable. No pleural effusion. No pneumothorax. Heart/Mediastinum: Unremarkable. No cardiomegaly. Bones/joints: Unremarkable. IMPRESSION: No acute findings. Dictated and Authenticated by: Nusrat Flores MD. Ordering:FAUZIA Briones MD
--- NOTE | 2019-04-18 11:18 | DI.VRAD_ITS ---
EXAM: CT Chest Without Contrast EXAM DATE/TIME: 04/16/2019 3:48 PM CLINICAL HISTORY: 78 years old, male; Signs and symptoms; Other: Persistent fevers; ? Renal abscess, no po/iv contrast TECHNIQUE: Imaging protocol: Axial computed tomography images of the chest without intravenous contrast. Coronal and sagittal reformatted images were created and reviewed. Radiation optimization: All CT scans at this facility use at least one of these dose optimization techniques: automated exposure control; mA and/or kV adjustment per patient size (includes targeted exams where dose is matched to clinical indication); or iterative reconstruction. COMPARISON: CT CHEST FOR PULMONARY EMBOLUS 12/16/2017 3:44 PM FINDINGS: Lungs: 7 mm pulmonary nodule within the posterior right upper lobe. Followup as indicated. No focal consolidation. Pleural space: Normal. No pneumothorax. No pleural effusion. Heart: Normal. No cardiomegaly. No pericardial effusion. Aorta: Normal. No aortic aneurysm. Lymph nodes: Unremarkable. No enlarged lymph nodes. Bones/joints: Unremarkable. No acute fracture. Soft tissues: Unremarkable. Other findings: Previous granulomatous exposure. IMPRESSION: 7 mm pulmonary nodule within the posterior right upper lobe. Followup as indicated. F[employer]ISCHNER CRITERIA FOR MANAGEMENT OF PULMONARY NODULES Low Risk Patients: <6mm, no follow-up 6-8mm, 6-12 month follow-up >8mm, CT 3, months, PET/CT or biopsy High Risk Patients: <6mm, follow-up 12 months 6-8mm, 6-12 month then 18-24 month follow-up >8mm, same as for low risk Dictated and Authenticated by: Nusrat Flores MD. Ordering:ROSANNE Hwoard MD
[2019-04-18 11:34] LABS: Lactate 1.5 mmol/L (0.6-1.4)
[2019-04-18 11:49] LABS: C-Reactive Protein 11.08 mg/dL (0.0-0.3)
[2019-04-18 12:01] LABS: NT-proBNP 3675 pg/mL
[2019-04-18] MEDS: Insulin Aspart 300 UNITS/3 ML PEN SC ×2 (12:07→17:01)
[2019-04-18 12:33] LABS: Procalcitonin 0.3 ng/mL
--- NOTE | 2019-04-18 13:33 | DI.VRAD_ITS ---
EXAM: US Duplex Bilateral Lower Extremity Veins EXAM DATE/TIME: 04/18/2019 1:18 PM CLINICAL HISTORY: 78 years old, male; Signs and symptoms; Edema, localized; Lower extremity, bilateral; Prior surgery; Surgery date: 6+ months; Surgery type: Bilateral knee replacements TECHNIQUE: Imaging protocol: Real-time duplex ultrasound of the Bilateral Lower Extremities with 2-D new scale, color Doppler flow and spectral waveform analysis. Complete exam focused on the bilateral lower extremity veins. COMPARISON: No relevant prior studies available. FINDINGS: Right deep veins: Unremarkable. The common femoral, femoral, proximal profunda femoral and popliteal veins are patent without thrombus. Normal Doppler waveforms. Normal compressibility and/or augmentation response. Right superficial veins: Saphenofemoral junction is patent without thrombus. Left deep veins: Unremarkable. The common femoral, femoral, proximal profunda femoral and popliteal veins are patent without thrombus. Normal Doppler waveforms. Normal compressibility and/or augmentation response. Left superficial veins: Saphenofemoral junction is patent without thrombus. Soft tissues: Unremarkable. IMPRESSION: No acute findings. No evidence of deep vein thrombosis. Dictated and Authenticated by: Nusrat Flores MD. Ordering:FAUZIA Briones MD
--- NOTE | 2019-04-18 14:02 | W.PM.PROGNOT ---
Date of Service Date of service: 04/18/19 Time of Service: 14:02 Assessment and Plan (1) Obesity hypoventilation syndrome: Current visit: Yes Status: Chronic I feel this is what's driving the patient's respiratory difficulty at this time - ABG is pending to see if he is hypercapnic. The patient is recommended to go back on BiPAP - we might have to adjust settings. There is no clinical evidence of pneumonia or fluid overload at this time. (2) Sepsis: Current visit: Yes Status: Acute Likely due to complicated UTI in setting of obstructive nephrolithiasis/uropathy. Vancomycin reintroduced. Continue amoxicillin/levofloxacin. Trend lactates and procalcitonin. Awaiting urology opinion as to plan. The patient was previously felt to be a poor anesthesia candidate. 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 Holding anticoagulation in light of supratherapeutic INR. (7) Chronic anticoagulation: Current visit: Yes Status: Chronic As above (8) Elevated INR: Current visit: No Status: Resolved (9) Nephrolithiasis: Current visit: No Status: Chronic As above (10) LUCAS on CPAP: Current visit: No Status: Chronic Actually BiPAP - patient is recommended to wear BiPAP right now. ABG is pending. (11) Diabetes mellitus type 2 in obese: Current visit: No Status: Chronic BG's reasonably controlled on current regimen - no change (12) Obesity, Class III, BMI 40-49.9 (morbid obesity): Current visit: No Status: Chronic Likely has obesity hypoventilation syndrome in addition to LUCAS. Weight loss needs to be encouraged. (13) Discharge planning issues: Current visit: Yes Status: Acute Full code. If requires a surgical intervention, has been deemed a poor anesthesia candidate here - will have to consider transfer. (14) DVT prophylaxis: Current visit: No Status: Acute On therapeutic coumadin (INR supratherapeutic today Subjective Interval history since last seen: Mr Winkler states that about an hour ago he was very short of breath. He feels better now - he thinks he is at his baseline. Denies cough and wheezing. States he did not wear his BiPAP last night because the mask felt tight and confining, though usually he wears it every night. Denies dizziness, chest pain, nausea, vomiting, abdominal pain. The patient states he is concerned about his shortness of breath. T max 38.3 (last seen this morning) while on amoxicillin and levofloxacin. Sensitivities on urine C&S from admission won't be available until tomorrow. Exam Narrative Exam Narrative: General: Obese middle-aged male, appears somnolent and falling asleep midsentence with me, mildly tachypneic - he looks as if he is retaining CO2. A&Ox3. HEENT: EOMI, MMM Heart: RRR, no m/r/g Lungs: CTAB Abdomen: soft, nontender, nondistended Extremities: 2+ BLE edema, no clubbing/cyanosis Objective Objective Clinical Data: Abnormal lab results 04/18/19 04/18/19 04/18/19 Range/Units 06:30 06:30 06:30 WBC 13.18 H (4.4-10.8) k/cumm RBC 3.93 L (4.50-6.00) m/cumm Hgb 10.8 L (13.5-17.5) g/dL Hct 34.3 L (40.0-50.0) % MCHC 31.5 L (32.0-36.0) g/dL RDW 15.5 H (11.8-14.1) % Absolute Neutrophils 9.95 H (1.2-6.7) k/cumm Absolute Monocytes 1.12 H (0.11-0.7) k/cumm PT 32.3 H (9.3-11.0) sec INR 3.2 H (0.9-1.1) Carbon Dioxide 19.3 L (21.0-32.0) mmol/L BUN 40 H (7-18) mg/dL Creatinine 3.06 H (0.70-1.30) mg/dL Glucose 145 H (70-100) mg/dL Lactate (0.6-1.4) mmol/L Calcium 11.1 H (8.5-10.1) mg/dL C-Reactive Protein (0.0-0.3) mg/dL NT-Pro-B Natriuret Pep ( - 299) pg/mL Urine Protein (Negative) mg/dL Urine Blood (Negative) Ur Leukocyte Esterase (Negative) Urine RBC (0-2) 04/18/19 04/18/19 04/18/19 Range/Units 10:05 11:22 11:22 WBC (4.4-10.8) k/cumm RBC (4.50-6.00) m/cumm Hgb (13.5-17.5) g/dL Hct (40.0-50.0) % MCHC (32.0-36.0) g/dL RDW (11.8-14.1) % Absolute Neutrophils (1.2-6.7) k/cumm Absolute Monocytes (0.11-0.7) k/cumm PT (9.3-11.0) sec INR (0.9-1.1) Carbon Dioxide (21.0-32.0) mmol/L BUN (7-18) mg/dL Creatinine (0.70-1.30) mg/dL Glucose (70-100) mg/dL Lactate 1.5 H (0.6-1.4) mmol/L Calcium (8.5-10.1) mg/dL C-Reactive Protein (0.0-0.3) mg/dL NT-Pro-B Natriuret Pep 3675 H ( - 299) pg/mL Urine Protein 100 H (Negative) mg/dL Urine Blood Large H (Negative) Ur Leukocyte Esterase Small H (Negative) Urine RBC >50 H (0-2) 04/18/19 Range/Units 11:22 WBC (4.4-10.8) k/cumm RBC (4.50-6.00) m/cumm Hgb (13.5-17.5) g/dL Hct (40.0-50.0) % MCHC (32.0-36.0) g/dL RDW (11.8-14.1) % Absolute Neutrophils (1.2-6.7) k/cumm Absolute Monocytes (0.11-0.7) k/cumm PT (9.3-11.0) sec INR (0.9-1.1) Carbon Dioxide (21.0-32.0) mmol/L BUN (7-18) mg/dL Creatinine (0.70-1.30) mg/dL Glucose (70-100) mg/dL Lactate (0.6-1.4) mmol/L Calcium (8.5-10.1) mg/dL C-Reactive Protein 11.08 H (0.0-0.3) mg/dL NT-Pro-B Natriuret Pep ( - 299) pg/mL Urine Protein (Negative) mg/dL Urine Blood (Negative) Ur Leukocyte Esterase (Negative) Urine RBC (0-2) Vital Signs Temperature 37.4 C 04/18/19 11:40 Temperature Source Tympanic 04/18/19 11:40 Pulse 72 04/18/19 11:40 Pulse Rhythm Irregular 04/18/19 09:17 Respiratory Rate 18 04/18/19 11:40 Respiratory Effort Accessory Muscle Use 04/18/19 09:17 Respiratory Depth Shallow 04/18/19 09:17 Respiratory Pattern Irregular 04/18/19 09:17 Blood Pressure 130/85 04/18/19 11:40 Blood Pressure Position Sitting 04/12/19 11:56 Pulse Oximetry 95 04/18/19 11:40 Oxygen Delivery Method Room Air 04/18/19 11:40 Oxygen Flow Rate 0 04/18/19 11:40 Pain Level 0 04/18/19 11:40 Comment 04/14/19 15:58 Intake & Output 04/17/19 04/18/19 04/18/19 23:59 11:59 23:59 Intake Total 1600 / 2665 1140 / 1380 240 / 1380 Output Total 2200 / 3000 1500 / 1500 Balance -600 / -335 -360 / -120 240 / -120 Weight 142.4 kg Intake: Oral 1600 / 2180 1140 / 1380 240 / 1380 Output: Urine 2200 / 3000 1500 / 1500 Other: Urine Color Light Hui Pale Yellow Urine Appearance Clear Clear Comment patient was flushed by Dr. Santos today, he reports no resistance and good return, no clots noted in return Stool Occult Blood Negative Stool Size Large Stool Characteristics Soft Formed Laboratory Results WBC 13.18 k/cumm (4.4-10.8) H 04/18/19 06:30 RBC 3.93 m/cumm (4.50-6.00) L 04/18/19 06:30 Hgb 10.8 g/dL (13.5-17.5) L 04/18/19 06:30 Hct 34.3 % (40.0-50.0) L 04/18/19 06:30 MCV 87.3 fL (80-95) 04/18/19 06:30 MCH 27.5 pg (27.0-33.0) 04/18/19 06:30 MCHC 31.5 g/dL (32.0-36.0) L 04/18/19 06:30 RDW 15.5 % (11.8-14.1) H 04/18/19 06:30 Plt Count 298 x1000/uL (130-400) 04/18/19 06:30 MPV 8.9 fL (8.0-11.0) 04/18/19 06:30 Immature Gran % 1.0 04/18/19 06:30 Neutrophils % 75.5 04/18/19 06:30 Lymphocytes % 12.3 04/18/19 06:30 Monocytes % 8.5 04/18/19 06:30 Eosinophils % 2.4 04/18/19 06:30 Basophils % 0.3 04/18/19 06:30 Absolute Neutrophils 9.95 k/cumm (1.2-6.7) H 04/18/19 06:30 Absolute Lymphocytes 1.62 k/cumm (1.2-3.4) 04/18/19 06:30 Absolute Monocytes 1.12 k/cumm (0.11-0.7) H 04/18/19 06:30 Absolute Eosinophils 0.32 k/cumm (0.0-0.7) 04/18/19 06:30 Absolute Basophils 0.04 k/cumm (0.0-0.2) 04/18/19 06:30 Differential Comment Rbc morph reviewed 04/15/19 06:32 RBC Morphology See below 04/15/19 06:32 Polychromasia Present 04/15/19 06:32 Hypochromasia 1+ 04/15/19 06:32 ESR 113 MM/HR (1-20) H 04/15/19 06:32 PT 32.3 sec (9.3-11.0) H 04/18/19 06:30 INR 3.2 (0.9-1.1) H 04/18/19 06:30 APTT 38.3 sec (21.0-31.4) H 04/12/19 12:06 Sodium 137 mmol/L (136-145) 04/18/19 06:30 Potassium 4.7 mmol/L (3.5-5.1) 04/18/19 06:30 Chloride 107 mmol/L (98-107) 04/18/19 06:30 Carbon Dioxide 19.3 mmol/L (21.0-32.0) L 04/18/19 06:30 Anion Gap 10.7 mmol/L (3-11) 04/18/19 06:30 BUN 40 mg/dL (7-18) H 04/18/19 06:30 Creatinine 3.06 mg/dL (0.70-1.30) H 04/18/19 06:30 Estimated GFR/1.73 m2 19.83 (mL/min/1.73m2) 04/18/19 06:30 Glucose 145 mg/dL (70-100) H 04/18/19 06:30 Lactate 1.5 mmol/L (0.6-1.4) H 04/18/19 11:22 Calcium 11.1 mg/dL (8.5-10.1) H 04/18/19 06:30 Magnesium 2.1 mg/dL (1.8-2.4) 04/18/19 06:30 Total Bilirubin 1.1 mg/dL (0.2-1.0) H 04/12/19 12:00 AST 23 U/L (15-37) 04/12/19 12:00 ALT 16 U/L (12-78) 04/12/19 12:00 Alkaline Phosphatase 118 U/L (46-116) H 04/12/19 12:00 Troponin I Cancelled 04/12/19 12:06 C-Reactive Protein 11.08 mg/dL (0.0-0.3) H 04/18/19 11:22 NT-Pro-B Natriuret Pep 3675 pg/mL (-299) H 04/18/19 11:22 Total Protein 7.3 g/dL (6.4-8.2) 04/12/19 12:00 Albumin 2.5 g/dL (3.4-5.0) L 04/12/19 12:00 Procalcitonin 0.3 ng/mL 04/18/19 11:22 Urine Color Yellow (Yellow) 04/18/19 10:05 Urine Clarity Cloudy 04/18/19 10:05 Urine pH 6.5 (5-8) 04/18/19 10:05 Ur Specific [place] 1.010 (1.005-1.025) 04/18/19 10:05 Urine Protein 100 mg/dL (Negative) H 04/18/19 10:05 Urine Ketones Negative mg/dL (Negative) 04/18/19 10:05 Urine Blood Large (Negative) H 04/18/19 10:05 Urine Nitrite Negative (Negative) 04/18/19 10:05 Urine Bilirubin Negative (Negative) 04/18/19 10:05 Urine Urobilinogen 0.2 EU/dL (Up TO 0.2) 04/18/19 10:05 Ur Leukocyte Esterase Small (Negative) H 04/18/19 10:05 Urine RBC >50 (0-2) H 04/18/19 10:05 Urine WBC 20-50 HPF (0-5) 04/18/19 10:05 Ur Epithelial Cells Negative HPF (Negative) 04/18/19 10:05 Urine Crystals Few amorphous HPF (Negative) 04/18/19 10:05 Urine Bacteria Few HPF (Negative) 04/18/19 10:05 Urine Casts Negative LPF (Negative) 04/18/19 10:05 Urine Mucus Trace (Negative) 04/18/19 10:05 Ur Culture Indicated? C&s done as ordered 04/18/19 10:05 Urine Glucose 100 mg/dL (Negative) 04/18/19 10:05 Vancomycin Trough 14.7 ug/mL (10.0-20.0) 04/17/19 02:56 CXR 04/18/19: No acute findings. Venous doppler BLE 04/18/19: No acute findings. No evidence of deep vein thrombosis. CT abdomen/pelvis 04/18/19: 1. Mild left obstructive uropathy with bilobed calculus at the ureteropelvic junction measuring 1.1 x 1.4 cm. 2. Exophytic right cortical renal cyst along the superior pole measures 7.6 x 7.6 cm. 3. Multiple large, nonobstructing renal calculi bilaterally. 4. Multiple bladder calculi. 5. Limited evaluation for renal abscess without intravenous contrast.
--- NOTE | 2019-04-18 14:17 | PDOC.CMPRO ---
Care Management Progress Note S/O: Sav presented with a fever last evening and per MD will resume previous IV ABX regime. He was able to verbalize this to this medical writer and reported he hoped the source of his recurrent fever became apparent soon. Sav was sitting up on the side of his bed, he remains pleasant in interaction, though appears to have not made gains clinically. He reported its up and down, waxes and weans when asked if he felt he was making progress. He used good humor in conversation and appeared to be in good spirits. CM continues to follow. A: 78 year old male admitted to [facility] 04/12/19 for Pneumonia P: Sav will return home when medically ready. Sav is considering home health nursing at time of discharge, [facility] PT is recommending home PT as well. CM to continue to provide support ongoing discharge planning and disposition.
--- NOTE | 2019-04-18 14:21 | CMPROGNOTE_ITS ---
Care Management Progress Note S/O: Sav presented with a fever last evening and per MD will resume previous IV ABX regime. He was able to verbalize this to this medical underwriter and reported he hoped the source of his recurrent fever became apparent soon. Sav was sitting up on the side of his bed, he remains pleasant in interaction, though appears to have not made gains clinically. He reported its up and down, waxes and weans when asked if he felt he was making progress. He used good humor in conversation and appeared to be in good spirits. CM continues to follow. A: 78 year old male admitted to [facility] 04/12/19 for Pneumonia P: Sav will return home when medically ready. Sav is considering home health nursing at time of discharge, [facility] PT is recommending home PT as well. CM to continue to provide support ongoing discharge planning and disposition.
[2019-04-18 14:27] LABS: HCO3 16 mmol/L (22-28); pCO2 28 mmHg (34-47); pH 7.36 (7.35-7.45); pO2 88 mmHg (83-108); sO2 98 % (94-98); tCO2 15 mmol/L (22-29)
[2019-04-18 14:28] LABS: BE -9.3 mmol/L (-3-3)
[2019-04-18 14:29] LABS: FIO2 R/A %; Site Right Radial
[2019-04-18] MEDS: VANCOMYCIN 1,250 MG in Normal Saline 250 ML 166.667 MG IV (15:03)
--- NOTE | 2019-04-18 15:29 | NUR.NOTE ---
Nursing Note: patients cpap mask was found to be filled with what appears to be food material. Rt was unable to provide a mask that fits his home appliance. therefore I was able to soak his mask, and use a tooth brush to remove all of the food particles. Patient was given information and education on how to care for his mask which included soaking it weekly in vinegar and warm water. patient was able to verbalize back this information in his own words.
[2019-04-18 16:03] LABS: Lactate 1.2 mmol/L (0.6-1.4)
[2019-04-18] MEDS: levoFLOXacin 750 MG/150 ML BAG 100 MG IVPB (17:01)
[2019-04-18] MEDS: Tamsulosin 0.4 MG CAPCR PO (17:11)
[2019-04-18] MEDS: Furosemide 100 MG/10 ML VIAL (18:07)
[2019-04-18] MEDS: Normal Saline 100 ML (18:08)
[2019-04-18] MEDS: Pravastatin 40 MG TAB PO (20:29)
[2019-04-19] VITALS (8 sets, daily range): BP systolic 117–133; BP diastolic 80–91; PULSE 61–95; RESP 18–23; TEMP 36.7–37.9; O2SAT 93–100
[2019-04-19 06:59] LABS: Anion Gap 10.5 mmol/L (3-11); BUN 43 mg/dL (7-18); C-Reactive Protein 10.31 mg/dL (0.0-0.3); CO2 20.5 mmol/L (21.0-32.0); CREATININE 3.19 mg/dL (0.70-1.30); Calcium 10.6 mg/dL (8.5-10.1); Chloride 105 mmol/L (98-107); Glucose 160 mg/dL (70-100); Potassium 4.8 mmol/L (3.5-5.1); Sodium 136 mmol/L (136-145)
[2019-04-19 07:00] LABS: INR 2.7 (0.9-1.1); Prothrombin Time 27.7 sec (9.3-11.0)
[2019-04-19 07:01] LABS: Absolute Basophil Count 0.03 k/cumm (0.0-0.2); Absolute Monocyte Count 0.91 k/cumm (0.11-0.7); Basophils % 0.2; Eosinophils % 2.1; HCT 33.3 % (40.0-50.0); HGB 10.4 g/dL (13.5-17.5); Immature Grans % 0.8; Lymphocytes % 12.5; Mean Corp. HGB Concentration 31.2 g/dL (32.0-36.0); Mean Corpuscular Hemoglobin 27.3 pg (27.0-33.0); Mean Corpuscular Volume 87.4 fL (80-95); Mean Platelet Volume 8.9 fL (8.0-11.0); Monocytes % 7.2; Neutrophils % 77.2; Platelet Count 345 x1000/uL (130-400); RBC 3.81 m/cumm (4.50-6.00); RBC Distribution Width 15.3 % (11.8-14.1); White Blood Cell Count 12.59 k/cumm (4.4-10.8)
[2019-04-19 07:03] LABS: Absolute Eosinophil Count 0.26 k/cumm (0.0-0.7); Absolute Lymphocyte Count 1.57 k/cumm (1.2-3.4); Absolute Neutrophil Count 9.72 k/cumm (1.2-6.7)
[2019-04-19 07:18] LABS: Procalcitonin 0.3 ng/mL
[2019-04-19] MEDS: Insulin Aspart 300 UNITS/3 ML PEN SC ×3 (07:55→17:06)
[2019-04-19] MEDS: Nystatin POWDER 60 GM JAR TP ×2 (07:55→20:05)
[2019-04-19] MEDS: Amoxicillin 500 MG CAP PO (07:56)
[2019-04-19] MEDS: Multivitamin TAB 1 TAB PO (07:56)
[2019-04-19] MEDS: Potassium Chloride 10 MEQ TABCR PO (07:56)
[2019-04-19] MEDS: Metoprolol 50 MG TAB PO ×2 (07:56→20:04)
[2019-04-19] MEDS: Omeprazole 20 MG CAPCR PO ×2 (07:56→20:04)
--- NOTE | 2019-04-19 10:29 | PT.INTREAT ---
Date of service: 04/19/19 Time of Service: 09:00 PT Notes Inpatient Physical Therapy Treatment Note [facility] Date: 04/19/19 PRECAUTIONS:Fall/ Standard OBJECTIVE: Sit-stand: Min assist Stand-sit: CGA GAIT Assistive Device: FWW Weight bearing: Full Assist: SBA Distance: 100ft with no rests with vc's to have walker closer with ambulation. THEREX: Pt completed UE and LE ther ex as per flow sheet while in the seated position. ASSESSMENT: Pt tolerated today's session fairly well. PLAN: Cont as per PT POC. TREATMENT CODE/TIME: 9-9:30 (30) STEWART RIVERA
[2019-04-19] MEDS: Acetaminophen 325 MG TAB PO (10:53)
--- NOTE | 2019-04-19 11:16 | W.PM.PROGNOT ---
Date of Service Date of service: 04/19/19 Time of Service: 11:16 Assessment and Plan (1) Sepsis: Current visit: Yes Status: Acute As he continues to be febrile, I think it is reasonable to place a left ureteral stent to allow the kidney to drain fully. I will need to check with our anesthesia providers to gauge their comfort level regarding providing anesthesia for this gentleman. He does have a relationship with the urology service at [facility] [place] if he needs to go to a tertiary care facility. I will make the patient NPO after midnight just in case his procedure can be accomplished here tomorrow. Subjective Interval history since last seen: He remains fairly comfortable, but has continued to be febrile. He has no complaints of flank pain/renal colic. Exam Narrative Exam Narrative: He does not appear septic/toxic His urine is grossly clear. I reviewed his CT scan on the PACS system. He has an increase in the stone burden in the bladder with multiple stones now present. he has large burden stone disease in both kidneys (as before) but he now has a partially obstructing mid ureteral stone on the left. Objective Objective Clinical Data: Abnormal lab results 04/18/19 04/18/19 04/18/19 Range/Units 11:22 11:22 11:22 WBC (4.4-10.8) k/cumm RBC (4.50-6.00) m/cumm Hgb (13.5-17.5) g/dL Hct (40.0-50.0) % MCHC (32.0-36.0) g/dL RDW (11.8-14.1) % Absolute Neutrophils (1.2-6.7) k/cumm Absolute Monocytes (0.11-0.7) k/cumm PT (9.3-11.0) sec INR (0.9-1.1) pCO2 (34-47) mmHg ABG HCO3 (22-28) mmol/L ABG Total CO2 (22-29) mmol/L ABG Base Excess (-3-3) mmol/L Carbon Dioxide (21.0-32.0) mmol/L BUN (7-18) mg/dL Creatinine (0.70-1.30) mg/dL Glucose (70-100) mg/dL Lactate 1.5 H (0.6-1.4) mmol/L Calcium (8.5-10.1) mg/dL C-Reactive Protein 11.08 H (0.0-0.3) mg/dL NT-Pro-B Natriuret Pep 3675 H ( - 299) pg/mL 04/18/19 04/19/19 04/19/19 Range/Units 14:28 06:30 06:30 WBC (4.4-10.8) k/cumm RBC (4.50-6.00) m/cumm Hgb (13.5-17.5) g/dL Hct (40.0-50.0) % MCHC (32.0-36.0) g/dL RDW (11.8-14.1) % Absolute Neutrophils (1.2-6.7) k/cumm Absolute Monocytes (0.11-0.7) k/cumm PT 27.7 H (9.3-11.0) sec INR 2.7 H (0.9-1.1) pCO2 28 L (34-47) mmHg ABG HCO3 16 L (22-28) mmol/L ABG Total CO2 15 L (22-29) mmol/L ABG Base Excess -9.3 L (-3-3) mmol/L Carbon Dioxide 20.5 L (21.0-32.0) mmol/L BUN 43 H (7-18) mg/dL Creatinine 3.19 H (0.70-1.30) mg/dL Glucose 160 H (70-100) mg/dL Lactate (0.6-1.4) mmol/L Calcium 10.6 H (8.5-10.1) mg/dL C-Reactive Protein 10.31 H (0.0-0.3) mg/dL NT-Pro-B Natriuret Pep ( - 299) pg/mL 04/19/19 Range/Units 06:30 WBC 12.59 H (4.4-10.8) k/cumm RBC 3.81 L (4.50-6.00) m/cumm Hgb 10.4 L (13.5-17.5) g/dL Hct 33.3 L (40.0-50.0) % MCHC 31.2 L (32.0-36.0) g/dL RDW 15.3 H (11.8-14.1) % Absolute Neutrophils 9.72 H (1.2-6.7) k/cumm Absolute Monocytes 0.91 H (0.11-0.7) k/cumm PT (9.3-11.0) sec INR (0.9-1.1) pCO2 (34-47) mmHg ABG HCO3 (22-28) mmol/L ABG Total CO2 (22-29) mmol/L ABG Base Excess (-3-3) mmol/L Carbon Dioxide (21.0-32.0) mmol/L BUN (7-18) mg/dL Creatinine (0.70-1.30) mg/dL Glucose (70-100) mg/dL Lactate (0.6-1.4) mmol/L Calcium (8.5-10.1) mg/dL C-Reactive Protein (0.0-0.3) mg/dL NT-Pro-B Natriuret Pep ( - 299) pg/mL Vital Signs Temperature 37.9 C H 04/19/19 10:53 Temperature Source Tympanic 04/19/19 10:50 Pulse 89 04/19/19 10:50 Pulse Rhythm Irregular 04/19/19 08:37 Respiratory Rate 22 04/19/19 10:50 Respiratory Effort Incrsd Work of Breathing 04/19/19 08:37 Respiratory Depth Shallow 04/19/19 08:37 Respiratory Pattern Normal 04/19/19 08:37 Blood Pressure 124/83 04/19/19 10:50 Blood Pressure Position Sitting 04/12/19 11:56 Pulse Oximetry 96 04/19/19 10:50 Oxygen Delivery Method Room Air 04/19/19 10:50 Oxygen Flow Rate 0 04/19/19 10:50 Pain Level 0 04/19/19 10:50 Comment 04/14/19 15:58 Intake & Output 04/18/19 04/18/19 04/19/19 11:59 23:59 11:59 Intake Total 1380 / 2470 1090 / 2470 1290 / 1290 Output Total 1500 / 2800 1300 / 2800 2625 / 2625 Balance -120 / -330 -210 / -330 -1335 / -1335 Weight 142.4 kg 139.4 kg Intake: IV 250 / 250 Oral 1380 / 2220 840 / 2220 1290 / 1290 Output: Urine 1500 / 2800 1300 / 2800 2625 / 2625 Other: Urine Color Pale Yellow Pale Yellow Light Hui Urine Appearance Clear Clear Cloudy Comment patient was flushed by Dr. Santos today, he reports no resistance and good return, no clots noted in return monitored carefully as patient is on lasix drip Laboratory Results WBC 12.59 k/cumm (4.4-10.8) H 04/19/19 06:30 RBC 3.81 m/cumm (4.50-6.00) L 04/19/19 06:30 Hgb 10.4 g/dL (13.5-17.5) L 04/19/19 06:30 Hct 33.3 % (40.0-50.0) L 04/19/19 06:30 MCV 87.4 fL (80-95) 04/19/19 06:30 MCH 27.3 pg (27.0-33.0) 04/19/19 06:30 MCHC 31.2 g/dL (32.0-36.0) L 04/19/19 06:30 RDW 15.3 % (11.8-14.1) H 04/19/19 06:30 Plt Count 345 x1000/uL (130-400) 04/19/19 06:30 MPV 8.9 fL (8.0-11.0) 04/19/19 06:30 Immature Gran % 0.8 04/19/19 06:30 Neutrophils % 77.2 04/19/19 06:30 Lymphocytes % 12.5 04/19/19 06:30 Monocytes % 7.2 04/19/19 06:30 Eosinophils % 2.1 04/19/19 06:30 Basophils % 0.2 04/19/19 06:30 Absolute Neutrophils 9.72 k/cumm (1.2-6.7) H 04/19/19 06:30 Absolute Lymphocytes 1.57 k/cumm (1.2-3.4) 04/19/19 06:30 Absolute Monocytes 0.91 k/cumm (0.11-0.7) H 04/19/19 06:30 Absolute Eosinophils 0.26 k/cumm (0.0-0.7) 04/19/19 06:30 Absolute Basophils 0.03 k/cumm (0.0-0.2) 04/19/19 06:30 Differential Comment Rbc morph reviewed 04/15/19 06:32 RBC Morphology See below 04/15/19 06:32 Polychromasia Present 04/15/19 06:32 Hypochromasia 1+ 04/15/19 06:32 ESR 113 MM/HR (1-20) H 04/15/19 06:32 PT 27.7 sec (9.3-11.0) H 04/19/19 06:30 INR 2.7 (0.9-1.1) H 04/19/19 06:30 APTT 38.3 sec (21.0-31.4) H 04/12/19 12:06 Sample Site Right radial 04/18/19 14:28 pCO2 28 mmHg (34-47) L 04/18/19 14:28 pO2 88 mmHg (83-108) 04/18/19 14:28 O2 Saturation 98 % (94-98) 04/18/19 14:28 ABG pH 7.36 (7.35-7.45) 04/18/19 14:28 ABG HCO3 16 mmol/L (22-28) L 04/18/19 14:28 ABG Total CO2 15 mmol/L (22-29) L 04/18/19 14:28 ABG Base Excess -9.3 mmol/L (-3-3) L 04/18/19 14:28 FiO2 R/a % 04/18/19 14:28 Sodium 136 mmol/L (136-145) 04/19/19 06:30 Potassium 4.8 mmol/L (3.5-5.1) 04/19/19 06:30 Chloride 105 mmol/L (98-107) 04/19/19 06:30 Carbon Dioxide 20.5 mmol/L (21.0-32.0) L 04/19/19 06:30 Anion Gap 10.5 mmol/L (3-11) 04/19/19 06:30 BUN 43 mg/dL (7-18) H 04/19/19 06:30 Creatinine 3.19 mg/dL (0.70-1.30) H 04/19/19 06:30 Estimated GFR/1.73 m2 18.90 (mL/min/1.73m2) 04/19/19 06:30 Glucose 160 mg/dL (70-100) H 04/19/19 06:30 Lactate 1.2 mmol/L (0.6-1.4) 04/18/19 15:50 Calcium 10.6 mg/dL (8.5-10.1) H 04/19/19 06:30 Magnesium 2.0 mg/dL (1.8-2.4) 04/19/19 06:30 Total Bilirubin 1.1 mg/dL (0.2-1.0) H 04/12/19 12:00 AST 23 U/L (15-37) 04/12/19 12:00 ALT 16 U/L (12-78) 04/12/19 12:00 Alkaline Phosphatase 118 U/L (46-116) H 04/12/19 12:00 Troponin I Cancelled 04/12/19 12:06 C-Reactive Protein 10.31 mg/dL (0.0-0.3) H 04/19/19 06:30 NT-Pro-B Natriuret Pep 3675 pg/mL (-299) H 04/18/19 11:22 Total Protein 7.3 g/dL (6.4-8.2) 04/12/19 12:00 Albumin 2.5 g/dL (3.4-5.0) L 04/12/19 12:00 Procalcitonin 0.3 ng/mL 04/19/19 06:30 Urine Color Yellow (Yellow) 04/18/19 10:05 Urine Clarity Cloudy 04/18/19 10:05 Urine pH 6.5 (5-8) 04/18/19 10:05 Ur Specific [place] 1.010 (1.005-1.025) 04/18/19 10:05 Urine Protein 100 mg/dL (Negative) H 04/18/19 10:05 Urine Ketones Negative mg/dL (Negative) 04/18/19 10:05 Urine Blood Large (Negative) H 04/18/19 10:05 Urine Nitrite Negative (Negative) 04/18/19 10:05 Urine Bilirubin Negative (Negative) 04/18/19 10:05 Urine Urobilinogen 0.2 EU/dL (Up TO 0.2) 04/18/19 10:05 Ur Leukocyte Esterase Small (Negative) H 04/18/19 10:05 Urine RBC >50 (0-2) H 04/18/19 10:05 Urine WBC 20-50 HPF (0-5) 04/18/19 10:05 Ur Epithelial Cells Negative HPF (Negative) 04/18/19 10:05 Urine Crystals Few amorphous HPF (Negative) 04/18/19 10:05 Urine Bacteria Few HPF (Negative) 04/18/19 10:05 Urine Casts Negative LPF (Negative) 04/18/19 10:05 Urine Mucus Trace (Negative) 04/18/19 10:05 Ur Culture Indicated? C&s done as ordered 04/18/19 10:05 Urine Glucose 100 mg/dL (Negative) 04/18/19 10:05 Vancomycin Trough 14.7 ug/mL (10.0-20.0) 04/17/19 02:56
[2019-04-19] MEDS: Phytonadione 5 MG TABLET PO (11:40)
--- NOTE | 2019-04-19 14:35 | PDOC.CMPRO ---
Care Management Progress Note S/O: Sav had a scan today, results showing a significant obstructed kidney stone likely the culprit for increased urinary retention per MD. Sav verbally acknowledged the plan and awaits notification of whether surgical intervention will take place at [facility]; likely tomorrow. CM continues to follow. A: 78 year old male admitted to [facility] 04/12/19 for Pneumonia P: Sav will return home when medically ready. Sav is considering home health nursing at time of discharge, [facility] PT is recommending home PT as well. Undetermined at this time if Sav will be transferred or have ureteral stent placed at [facility]; awaiting anesthesia consult determination. CM to continue to provide support ongoing discharge planning and disposition.
--- NOTE | 2019-04-19 14:52 | CMPROGNOTE_ITS ---
Care Management Progress Note S/O: Sav had a scan today, results showing a significant obstructed kidney stone likely the culprit for increased urinary retention per MD. Sav verbally acknowledged the plan and awaits notification of whether surgical intervention will take place at [facility]; likely tomorrow. CM continues to follow. A: 78 year old male admitted to [facility] 04/12/19 for Pneumonia P: Sav will return home when medically ready. Sav is considering home health nursing at time of discharge, [facility] PT is recommending home PT as well. Undetermined at this time if Sav will be transferred or have ureteral stent placed at [facility]; awaiting anesthesia consult determination. CM to continue to provide support ongoing discharge planning and disposition.
--- NOTE | 2019-04-19 15:42 | W.PM.PROGNOT ---
Date of Service Date of service: 04/19/19 Time of Service: 15:42 Assessment and Plan (1) Sepsis: Current visit: Yes Status: Acute Likely due to complicated UTI in setting of obstructive nephrolithiasis/uropathy. Urine C&S from 04/18/19 with NGTD (done on abx). Blood cx from 04/18/19 with NGTD (on abx). Urine C&S from 04/12/19 with E. faecalis and Klebsiella. Continue vancomycin/levofloxacin. Amoxicillin not listed in sensitivities for enterococcus - resistant to ampicillin. Sensitive to augmentin and levofloxacin. At this point, d/c amoxicillin. Continue vanco/levofloxacin. T max 37.9 today and CRP starting to decrease since reintroduction of vancomycin. Continue to trend procalcitonin. Will require cysto and stent by urology - hopefully at [facility] tomorrow. May require transfer to a tertiary care facility if not cleared by our anesthesiology team. (2) Complicated UTI (urinary tract infection): Current visit: Yes Status: Acute As above (3) Obstructive uropathy: Current visit: Yes Status: Acute with UPJ stone - for cysto/stent, as above (4) Metabolic acidosis with respiratory acidosis: Current visit: Yes Status: Acute Improving. Likely cause of tachypnea seen yesterday rather than CO2 retention/OHS. DDx for metabolic acidosis: KENNETH, volume expansion due to CHF/fluid overload. Lactic acidosis was mild and actually resolved. He is responding well to gentle diuresis, and his creatinine appears to be able to tolerate it. Ultimately, his KENNETH will also improve post urological intervention. (5) Moderate pulmonary arterial systolic hypertension: Current visit: Yes Status: Chronic Per echo in 04/05. Continue BiPAP at night and volume management with diuretics. (6) Bladder stone: Current visit: Yes Status: Chronic As above (7) Atrial fibrillation: Current visit: Yes Status: Chronic Chronic, rate controlled. Holding anticoagulation in light of preparation for surgery tomorrow - vit K given (8) Chronic anticoagulation: Current visit: Yes Status: Chronic As above (9) Nephrolithiasis: Current visit: No Status: Chronic As above (10) LUCAS on CPAP: Current visit: No Status: Chronic Actually BiPAP - patient is recommended to wear BiPAP at night as much as he can. (11) Diabetes mellitus type 2 in obese: Current visit: No Status: Chronic BG's reasonably controlled on current regimen - no change (12) Obesity, Class III, BMI 40-49.9 (morbid obesity): Current visit: No Status: Chronic Likely has obesity hypoventilation syndrome in addition to LUCAS. Weight loss needs to be encouraged. (13) Discharge planning issues: Current visit: Yes Status: Acute Full code. Awaiting consideration by anesthesia for cystoscopy here tomorrow (14) DVT prophylaxis: Current visit: No Status: Acute Hold coumadin - INR therapeutic today Subjective Interval history since last seen: Mr Winkler states his breathing is better today. He is on lasix gtt, his legs are less swollen. He denies dizziness, chest pain, nausea, vomiting, abdominal pain, back pain. He is planned for cystoscopy and stent by Dr Santos tomorrow, assuming that he will get anesthesiology clearance. Exam Narrative Exam Narrative: General: Obese middle-aged male, looks better, somewhat slow to respond when talking to me, but able to have a complicated conversation about his care with me, A&Ox3, very minimal tachypnea noted, significant improvement from yesterday HEENT: EOMI, MMM Heart: RRR, no m/r/g Lungs: CTAB Abdomen: soft, nontender, nondistended Extremities: 1+ BLE edema - improved; no clubbing/cyanosis Objective Objective Clinical Data: Abnormal lab results 04/19/19 04/19/19 04/19/19 Range/Units 06:30 06:30 06:30 WBC 12.59 H (4.4-10.8) k/cumm RBC 3.81 L (4.50-6.00) m/cumm Hgb 10.4 L (13.5-17.5) g/dL Hct 33.3 L (40.0-50.0) % MCHC 31.2 L (32.0-36.0) g/dL RDW 15.3 H (11.8-14.1) % Absolute Neutrophils 9.72 H (1.2-6.7) k/cumm Absolute Monocytes 0.91 H (0.11-0.7) k/cumm PT 27.7 H (9.3-11.0) sec INR 2.7 H (0.9-1.1) Carbon Dioxide 20.5 L (21.0-32.0) mmol/L BUN 43 H (7-18) mg/dL Creatinine 3.19 H (0.70-1.30) mg/dL Glucose 160 H (70-100) mg/dL Calcium 10.6 H (8.5-10.1) mg/dL C-Reactive Protein 10.31 H (0.0-0.3) mg/dL Vital Signs Temperature 37.9 C H 04/19/19 10:53 Temperature Source Tympanic 04/19/19 10:50 Pulse 89 04/19/19 10:50 Pulse Rhythm Irregular 04/19/19 08:37 Respiratory Rate 22 04/19/19 10:50 Respiratory Effort Incrsd Work of Breathing 04/19/19 08:37 Respiratory Depth Shallow 04/19/19 08:37 Respiratory Pattern Normal 04/19/19 08:37 Blood Pressure 124/83 04/19/19 10:50 Blood Pressure Position Sitting 04/12/19 11:56 Pulse Oximetry 96 04/19/19 10:50 Oxygen Delivery Method Room Air 04/19/19 10:50 Oxygen Flow Rate 0 04/19/19 10:50 Pain Level 0 04/19/19 10:50 Comment 04/14/19 15:58 Intake & Output 04/18/19 04/19/19 04/19/19 23:59 11:59 23:59 Intake Total 1090 / 2470 1290 / 1530 240 / 1530 Output Total 1300 / 2800 2625 / 3375 750 / 3375 Balance -210 / -330 -1335 / -1845 -510 / -1845 Weight 139.4 kg Intake: IV 250 / 250 Oral 840 / 2220 1290 / 1530 240 / 1530 Output: Urine 1300 / 2800 2625 / 3375 750 / 3375 Other: Urine Color Yellow Pale Pale Light Hui Light Hui Urine Appearance Clear Cloudy Cloudy Clots Comment monitored carefully as patient is on lasix drip Laboratory Results WBC 12.59 k/cumm (4.4-10.8) H 04/19/19 06:30 RBC 3.81 m/cumm (4.50-6.00) L 04/19/19 06:30 Hgb 10.4 g/dL (13.5-17.5) L 04/19/19 06:30 Hct 33.3 % (40.0-50.0) L 04/19/19 06:30 MCV 87.4 fL (80-95) 04/19/19 06:30 MCH 27.3 pg (27.0-33.0) 04/19/19 06:30 MCHC 31.2 g/dL (32.0-36.0) L 04/19/19 06:30 RDW 15.3 % (11.8-14.1) H 04/19/19 06:30 Plt Count 345 x1000/uL (130-400) 04/19/19 06:30 MPV 8.9 fL (8.0-11.0) 04/19/19 06:30 Immature Gran % 0.8 04/19/19 06:30 Neutrophils % 77.2 04/19/19 06:30 Lymphocytes % 12.5 04/19/19 06:30 Monocytes % 7.2 04/19/19 06:30 Eosinophils % 2.1 04/19/19 06:30 Basophils % 0.2 04/19/19 06:30 Absolute Neutrophils 9.72 k/cumm (1.2-6.7) H 04/19/19 06:30 Absolute Lymphocytes 1.57 k/cumm (1.2-3.4) 04/19/19 06:30 Absolute Monocytes 0.91 k/cumm (0.11-0.7) H 04/19/19 06:30 Absolute Eosinophils 0.26 k/cumm (0.0-0.7) 04/19/19 06:30 Absolute Basophils 0.03 k/cumm (0.0-0.2) 04/19/19 06:30 Differential Comment Rbc morph reviewed 04/15/19 06:32 RBC Morphology See below 04/15/19 06:32 Polychromasia Present 04/15/19 06:32 Hypochromasia 1+ 04/15/19 06:32 ESR 113 MM/HR (1-20) H 04/15/19 06:32 PT 27.7 sec (9.3-11.0) H 04/19/19 06:30 INR 2.7 (0.9-1.1) H 04/19/19 06:30 APTT 38.3 sec (21.0-31.4) H 04/12/19 12:06 Sample Site Right radial 04/18/19 14:28 pCO2 28 mmHg (34-47) L 04/18/19 14:28 pO2 88 mmHg (83-108) 04/18/19 14:28 O2 Saturation 98 % (94-98) 04/18/19 14:28 ABG pH 7.36 (7.35-7.45) 04/18/19 14:28 ABG HCO3 16 mmol/L (22-28) L 04/18/19 14:28 ABG Total CO2 15 mmol/L (22-29) L 04/18/19 14:28 ABG Base Excess -9.3 mmol/L (-3-3) L 04/18/19 14:28 FiO2 R/a % 04/18/19 14:28 Sodium 136 mmol/L (136-145) 04/19/19 06:30 Potassium 4.8 mmol/L (3.5-5.1) 04/19/19 06:30 Chloride 105 mmol/L (98-107) 04/19/19 06:30 Carbon Dioxide 20.5 mmol/L (21.0-32.0) L 04/19/19 06:30 Anion Gap 10.5 mmol/L (3-11) 04/19/19 06:30 BUN 43 mg/dL (7-18) H 04/19/19 06:30 Creatinine 3.19 mg/dL (0.70-1.30) H 04/19/19 06:30 Estimated GFR/1.73 m2 18.90 (mL/min/1.73m2) 04/19/19 06:30 Glucose 160 mg/dL (70-100) H 04/19/19 06:30 Lactate 1.2 mmol/L (0.6-1.4) 04/18/19 15:50 Calcium 10.6 mg/dL (8.5-10.1) H 04/19/19 06:30 Magnesium 2.0 mg/dL (1.8-2.4) 04/19/19 06:30 Total Bilirubin 1.1 mg/dL (0.2-1.0) H 04/12/19 12:00 AST 23 U/L (15-37) 04/12/19 12:00 ALT 16 U/L (12-78) 04/12/19 12:00 Alkaline Phosphatase 118 U/L (46-116) H 04/12/19 12:00 Troponin I Cancelled 04/12/19 12:06 C-Reactive Protein 10.31 mg/dL (0.0-0.3) H 04/19/19 06:30 NT-Pro-B Natriuret Pep 3675 pg/mL (-299) H 04/18/19 11:22 Total Protein 7.3 g/dL (6.4-8.2) 04/12/19 12:00 Albumin 2.5 g/dL (3.4-5.0) L 04/12/19 12:00 Procalcitonin 0.3 ng/mL 04/19/19 06:30 Urine Color Yellow (Yellow) 04/18/19 10:05 Urine Clarity Cloudy 04/18/19 10:05 Urine pH 6.5 (5-8) 04/18/19 10:05 Ur Specific [place] 1.010 (1.005-1.025) 04/18/19 10:05 Urine Protein 100 mg/dL (Negative) H 04/18/19 10:05 Urine Ketones Negative mg/dL (Negative) 04/18/19 10:05 Urine Blood Large (Negative) H 04/18/19 10:05 Urine Nitrite Negative (Negative) 04/18/19 10:05 Urine Bilirubin Negative (Negative) 04/18/19 10:05 Urine Urobilinogen 0.2 EU/dL (Up TO 0.2) 04/18/19 10:05 Ur Leukocyte Esterase Small (Negative) H 04/18/19 10:05 Urine RBC >50 (0-2) H 04/18/19 10:05 Urine WBC 20-50 HPF (0-5) 04/18/19 10:05 Ur Epithelial Cells Negative HPF (Negative) 04/18/19 10:05 Urine Crystals Few amorphous HPF (Negative) 04/18/19 10:05 Urine Bacteria Few HPF (Negative) 04/18/19 10:05 Urine Casts Negative LPF (Negative) 04/18/19 10:05 Urine Mucus Trace (Negative) 04/18/19 10:05 Ur Culture Indicated? C&s done as ordered 04/18/19 10:05 Urine Glucose 100 mg/dL (Negative) 04/18/19 10:05 Vancomycin Trough 14.7 ug/mL (10.0-20.0) 04/17/19 02:56
[2019-04-19] MEDS: Tamsulosin 0.4 MG CAPCR PO (17:06)
[2019-04-19] MEDS: Pravastatin 40 MG TAB PO (20:04)
[2019-04-20] MEDS: VANCOMYCIN 1,250 MG in Normal Saline 250 ML 166.667 MG IV (01:08)
[2019-04-20] MEDS: Normal Saline Flush 10 ML SYR IVP ×2 (01:09→08:24)
[2019-04-20 03:15] VITALS: BP 101/68; PULSE 85; RESP 20; TEMP 36.7; O2SAT 95
[2019-04-20 07:02] LABS: Abs Immature Grans 0.06 k/cumm (0.0-0.09); Absolute Basophil Count 0.02 k/cumm (0.0-0.2); Absolute Eosinophil Count 0.12 k/cumm (0.0-0.7); Absolute Lymphocyte Count 1.51 k/cumm (1.2-3.4); Absolute Monocyte Count 0.89 k/cumm (0.11-0.7); Basophils % 0.2; HGB 10.4 g/dL (13.5-17.5); Immature Grans % 0.5; Mean Corp. HGB Concentration 31.5 g/dL (32.0-36.0); Mean Corpuscular Hemoglobin 27.2 pg (27.0-33.0); Mean Corpuscular Volume 86.2 fL (80-95); Mean Platelet Volume 8.8 fL (8.0-11.0); Monocytes % 7.7; Neutrophils % 77.6; Platelet Count 314 x1000/uL (130-400); RBC 3.83 m/cumm (4.50-6.00); RBC Distribution Width 14.9 % (11.8-14.1); White Blood Cell Count 11.58 k/cumm (4.4-10.8)
[2019-04-20 07:05] LABS: Absolute Neutrophil Count 8.99 k/cumm (1.2-6.7)
[2019-04-20 07:10] VITALS: BP 113/79; PULSE 87; RESP 18; TEMP 37.1; O2SAT 97
--- NOTE | 2019-04-20 07:16 | PGE_ITS ---
Date of Service Date of service: 04/20/19 Time of Service: 07:16 Assessment and Plan (1) Sepsis: Current visit: Yes Status: Acute He does not appear toxic at this point, but he continues to be febrile in spite of a week's worth of antibiotics. In light of of the left ureteral stone found on CT scan, we would recommend placement of the left ureteral stent. I reviewed the patient's chart with our anesthesia providers. Given his cardiac and pulmonary history, our recommendation is that any procedure requiring anesthesia be done at a tertiary care center that has pulmonary and cardiac providers full-time. A have not booked him for surgery here today. I will cancel his n.p.o. order and ask our hospitalist colleagues to work on a transfer to a larger facility. The patient has seen the urology team at [facility] previously. The referral to [facility] was made by the urologist at [place], [place] when the patient was felt to be too high risk to have surgery done at that facility Subjective Interval history since last seen: He is not having any flank pain. He was afebrile overnight, but had a temp of 37.9 within the past 24 hours.. Exam Narrative Exam Narrative: He does not appear septic or toxic. His urine is clear with no clots. Objective Objective Clinical Data: Abnormal lab results 04/20/19 Range/Units 06:35 WBC 11.58 H (4.4-10.8) k/cumm RBC 3.83 L (4.50-6.00) m/cumm Hgb 10.4 L (13.5-17.5) g/dL Hct 33.0 L (40.0-50.0) % MCHC 31.5 L (32.0-36.0) g/dL RDW 14.9 H (11.8-14.1) % Absolute Neutrophils 8.99 H (1.2-6.7) k/cumm Absolute Monocytes 0.89 H (0.11-0.7) k/cumm Vital Signs Temperature 36.7 C 04/20/19 03:15 Temperature Source Tympanic 04/20/19 03:15 Pulse 85 04/20/19 03:15 Pulse Rhythm Irregular 04/19/19 20:07 Respiratory Rate 20 04/20/19 03:15 Respiratory Effort Incrsd Work of Breathing 04/19/19 20:07 Respiratory Depth Shallow 04/19/19 20:07 Respiratory Pattern Normal 04/19/19 08:37 Blood Pressure 101/68 04/20/19 03:15 Blood Pressure Position Sitting 04/12/19 11:56 Pulse Oximetry 95 04/20/19 03:15 Oxygen Delivery Method Room Air 04/20/19 03:15 Oxygen Flow Rate 0 04/20/19 03:15 Pain Level 0 04/20/19 03:15 Comment 04/20/19 03:15 Intake & Output 04/19/19 04/19/19 04/20/19 11:59 23:59 11:59 Intake Total 1290 / 2067.5 777.5 / 2067.5 260 / 260 Output Total 2625 / 4775 2150 / 4775 1850 / 1850 Balance -1335 / -2707.5 -1372.5 / -2707.5 -1590 / -1590 Weight 139.4 kg Intake: IV 57.5 / 57.5 260 / 260 Oral 1290 / 2009 720 / 2010 Output: Urine 2625 / 4775 2150 / 4775 1850 / 1850 Other: Urine Color Pale Light Hui Yellow Light Hui Urine Appearance Cloudy Clear Clear Comment monitored carefully as patient is on lasix drip Laboratory Results WBC 11.58 k/cumm (4.4-10.8) H 04/20/19 06:35 RBC 3.83 m/cumm (4.50-6.00) L 04/20/19 06:35 Hgb 10.4 g/dL (13.5-17.5) L 04/20/19 06:35 Hct 33.0 % (40.0-50.0) L 04/20/19 06:35 MCV 86.2 fL (80-95) 04/20/19 06:35 MCH 27.2 pg (27.0-33.0) 04/20/19 06:35 MCHC 31.5 g/dL (32.0-36.0) L 04/20/19 06:35 RDW 14.9 % (11.8-14.1) H 04/20/19 06:35 Plt Count 314 x1000/uL (130-400) 04/20/19 06:35 MPV 8.8 fL (8.0-11.0) 04/20/19 06:35 Immature Gran % 0.5 04/20/19 06:35 Neutrophils % 77.6 04/20/19 06:35 Lymphocytes % 13.0 04/20/19 06:35 Monocytes % 7.7 04/20/19 06:35 Eosinophils % 1.0 04/20/19 06:35 Basophils % 0.2 04/20/19 06:35 Absolute Neutrophils 8.99 k/cumm (1.2-6.7) H 04/20/19 06:35 Absolute Lymphocytes 1.51 k/cumm (1.2-3.4) 04/20/19 06:35 Absolute Monocytes 0.89 k/cumm (0.11-0.7) H 04/20/19 06:35 Absolute Eosinophils 0.12 k/cumm (0.0-0.7) 04/20/19 06:35 Absolute Basophils 0.02 k/cumm (0.0-0.2) 04/20/19 06:35 Differential Comment Rbc morph reviewed 04/15/19 06:32 RBC Morphology See below 04/15/19 06:32 Polychromasia Present 04/15/19 06:32 Hypochromasia 1+ 04/15/19 06:32 ESR 113 MM/HR (1-20) H 04/15/19 06:32 PT 27.7 sec (9.3-11.0) H 04/19/19 06:30 INR 2.7 (0.9-1.1) H 04/19/19 06:30 APTT 38.3 sec (21.0-31.4) H 04/12/19 12:06 Sample Site Right radial 04/18/19 14:28 pCO2 28 mmHg (34-47) L 04/18/19 14:28 pO2 88 mmHg (83-108) 04/18/19 14:28 O2 Saturation 98 % (94-98) 04/18/19 14:28 ABG pH 7.36 (7.35-7.45) 04/18/19 14:28 ABG HCO3 16 mmol/L (22-28) L 04/18/19 14:28 ABG Total CO2 15 mmol/L (22-29) L 04/18/19 14:28 ABG Base Excess -9.3 mmol/L (-3-3) L 04/18/19 14:28 FiO2 R/a % 04/18/19 14:28 Sodium 136 mmol/L (136-145) 04/19/19 06:30 Potassium 4.8 mmol/L (3.5-5.1) 04/19/19 06:30 Chloride 105 mmol/L (98-107) 04/19/19 06:30 Carbon Dioxide 20.5 mmol/L (21.0-32.0) L 04/19/19 06:30 Anion Gap 10.5 mmol/L (3-11) 04/19/19 06:30 BUN 43 mg/dL (7-18) H 04/19/19 06:30 Creatinine 3.19 mg/dL (0.70-1.30) H 04/19/19 06:30 Estimated GFR/1.73 m2 18.90 (mL/min/1.73m2) 04/19/19 06:30 Glucose 160 mg/dL (70-100) H 04/19/19 06:30 Lactate 1.2 mmol/L (0.6-1.4) 04/18/19 15:50 Calcium 10.6 mg/dL (8.5-10.1) H 04/19/19 06:30 Magnesium 2.0 mg/dL (1.8-2.4) 04/19/19 06:30 Total Bilirubin 1.1 mg/dL (0.2-1.0) H 04/12/19 12:00 AST 23 U/L (15-37) 04/12/19 12:00 ALT 16 U/L (12-78) 04/12/19 12:00 Alkaline Phosphatase 118 U/L (46-116) H 04/12/19 12:00 Troponin I Cancelled 04/12/19 12:06 C-Reactive Protein 10.31 mg/dL (0.0-0.3) H 04/19/19 06:30 NT-Pro-B Natriuret Pep 3675 pg/mL (-299) H 04/18/19 11:22 Total Protein 7.3 g/dL (6.4-8.2) 04/12/19 12:00 Albumin 2.5 g/dL (3.4-5.0) L 04/12/19 12:00 Procalcitonin 0.3 ng/mL 04/19/19 06:30 Urine Color Yellow (Yellow) 04/18/19 10:05 Urine Clarity Cloudy 04/18/19 10:05 Urine pH 6.5 (5-8) 04/18/19 10:05 Ur Specific [place] 1.010 (1.005-1.025) 04/18/19 10:05 Urine Protein 100 mg/dL (Negative) H 04/18/19 10:05 Urine Ketones Negative mg/dL (Negative) 04/18/19 10:05 Urine Blood Large (Negative) H 04/18/19 10:05 Urine Nitrite Negative (Negative) 04/18/19 10:05 Urine Bilirubin Negative (Negative) 04/18/19 10:05 Urine Urobilinogen 0.2 EU/dL (Up TO 0.2) 04/18/19 10:05 Ur Leukocyte Esterase Small (Negative) H 04/18/19 10:05 Urine RBC >50 (0-2) H 04/18/19 10:05 Urine WBC 20-50 HPF (0-5) 04/18/19 10:05 Ur Epithelial Cells Negative HPF (Negative) 04/18/19 10:05 Urine Crystals Few amorphous HPF (Negative) 04/18/19 10:05 Urine Bacteria Few HPF (Negative) 04/18/19 10:05 Urine Casts Negative LPF (Negative) 04/18/19 10:05 Urine Mucus Trace (Negative) 04/18/19 10:05 Ur Culture Indicated? C&s done as ordered 04/18/19 10:05 Urine Glucose 100 mg/dL (Negative) 04/18/19 10:05 Vancomycin Trough 14.7 ug/mL (10.0-20.0) 04/17/19 02:56
[2019-04-20 07:21] LABS: Anion Gap 12.6 mmol/L (3-11); BUN 47 mg/dL (7-18); C-Reactive Protein 7.84 mg/dL (0.0-0.3); CO2 18.4 mmol/L (21.0-32.0); CREATININE 3.14 mg/dL (0.70-1.30); Calcium 10.3 mg/dL (8.5-10.1); Chloride 105 mmol/L (98-107); Estimated GFR 19.25 (mL/min/1.73m2); Glucose 173 mg/dL (70-100); Magnesium 2.1 mg/dL (1.8-2.4); Potassium 4.1 mmol/L (3.5-5.1); Sodium 136 mmol/L (136-145)
[2019-04-20] MEDS: Potassium Chloride 10 MEQ TABCR PO (08:22)
[2019-04-20] MEDS: Omeprazole 20 MG CAPCR PO (08:23)
[2019-04-20] MEDS: Metoprolol 50 MG TAB PO (08:23)
[2019-04-20] MEDS: Multivitamin TAB 1 TAB PO (08:23)
[2019-04-20] MEDS: Insulin Aspart 300 UNITS/3 ML PEN SC ×2 (08:23→12:11)
[2019-04-20] MEDS: Nystatin POWDER 60 GM JAR TP (08:24)
--- NOTE | 2019-04-20 08:45 | PT.INTREAT ---
Date of service: 04/20/19 Time of Service: 08:45 PT Notes 04/20/19 SUBJECTIVE: Sav stating he is doing okay today. No pain complaints. OBJECTIVE: Seated in recliner. Agreeable to PT treatment. TRANSFERS Sit to stand: SBA Stand to sit: SBA GAIT Device: FWW Weight bearing: Full Assist: SBA Distance: 100' Deviation: No rest breaks THEREX: Pt declines ASSESSMENT: Progressing well with his gait distance and speed. He is walking more here at the hospital than he does at baseline at home. PLAN: Continue per PT's POC. Treatment time: 15 minutes [id number] Mari Callahan, [employer]
--- NOTE | 2019-04-20 08:51 | PTTR_ITS ---
Date of service: 04/20/19 Time of Service: 08:45 PT Notes 04/20/19 SUBJECTIVE: Sav stating he is doing okay today. No pain complaints. OBJECTIVE: Seated in recliner. Agreeable to PT treatment. TRANSFERS Sit to stand: SBA Stand to sit: SBA GAIT Device: FWW Weight bearing: Full Assist: SBA Distance: 100' Deviation: No rest breaks THEREX: Pt declines ASSESSMENT: Progressing well with his gait distance and speed. He is walking more here at the hospital than he does at baseline at home. PLAN: Continue per PT's POC. Treatment time: 15 minutes [id number] Mari Callahan, TRANSMITTER CHIEF
--- NOTE | 2019-04-20 11:27 | DSE_ITS ---
Date of service: 04/20/19 Time of Service: 11:26 DS: Diagnosis Discharge Diagnosis (1) Sepsis: Status: Acute (2) Complicated UTI (urinary tract infection): Status: Acute (3) Obstructive uropathy: Status: Acute Asessment and Plan: obstructing stone at L UPJ (4) CHF (congestive heart failure): Status: Chronic (5) Metabolic acidosis with respiratory acidosis: Status: Acute (6) Moderate pulmonary arterial systolic hypertension: Status: Chronic (7) Obesity hypoventilation syndrome: Status: Chronic (8) Atrial fibrillation: Status: Chronic (9) Bladder stone: Status: Chronic (10) Chronic anticoagulation: Status: Chronic (11) BPH (benign prostatic hyperplasia): Status: Chronic (12) GERD (gastroesophageal reflux disease): Status: Chronic (13) Hyperlipidemia: Status: Chronic (14) Diabetes mellitus type 2 in obese: Status: Chronic (15) Obesity, Class III, BMI 40-49.9 (morbid obesity): Status: Chronic (16) LUCAS on CPAP: Status: Chronic Asessment and Plan: BiPAP (17) Essential hypertension, benign: Status: Chronic Discharge Plan Disposition Patient Disposition: [facility] Condition: Stable Discharge Details Reason For Visit: PNEUMONIA Admit Date/Time: 04/12/19 14:04 Admit Provider: Tonny Carmona Attending Provider: Tonny Carmona Primary Care Provider: Ricardo Luis Hospital Course Hospital Course: Mr Winkler is a 78 year old male with PMHx of nephrolithiasis, bladder stones, prior episode of complicated UTI (emphysematous cystitis), urinary retention, BPH, in addition to a number of other medical conditions (chronic Afib on coumadin, chronic diastolic CHF, moderate to severe pulmonary hypertension, moderate mitral regurgitation, NIDDM2, CKD), admitted to [facility] on 04/12/19 with a complicated UTI as well as CAP and KENNETH with Cr of 3.24, up from his baseline of 1.75. There was evidence of urinary retention as well, and a griffin catheter was inserted. The patient's urine cultures done on admission (was on doxycycline and cefpodoxime as outpatient at the time) grew E. faecalis and Klebsiella pneumonia. He was treated with vancomycin and levofloxacin. His renal ultrasound, done on 04/14/19, revealed B nephrolithiasis, R renal cyst, but no obstructive uropathy. However, despite appropriate antibiotic therapy, the patient continued to have fevers. Blood cultures were negative. Urology evalu ated the patient and felt he needed more in depth imaging, such as CT of the abdomen/pelvis, which was done on 04/18/19 and revealed obstructing calculus vs calculi at L UPJ, 16x 8 mm in size, in addition to nonobstructing calculi and bladder calculi. Dr Santos of urology consulted with [facility] anesthesia - the patient was felt to be too high of anesthesia risk for our hospital and was recommended to be transferred to a tertiary care facility such as [facility]. He was accepted at [facility] by Dr Cesar of urology for anticipated cystoscopy and stent. While he did have an elevated INR earlier on this admission, the day of transfer it is 1.6. From the pneumonia stand point, CXR on 04/18/19 does not reveal any infiltrates. Clinically, he does have mild shortness of breath - this is felt to be due to his respiratory compensation for metabolic acidosis, which is multifactorial - due to mild fluid overload (patient is on lasix drip at [facility] at 2.5 mg/hr), KENNETH on CKD, and infection. He is not requiring oxygen. His respiratory status is much better and stable. It is expected that his very mild tachypnea will resolve with improvement of his KENNETH, which in his case is post- renal/obstructive. The patient is in agreement with transfer. We appreciate the assistance of [facility] and wish the patient well! Care for the patient as well as preparation of his transfer summary took 60 minutes Home Meds and New Rx's Prescriptions: New acetaminophen [Tylenol] 325 mg Tablet 650 mg PO Q4H PRN PRNQty: 0 RF: 0 ipratropium-albuterol 0.5 mg-3 mg(2.5 mg base)/3 mL Solution For Nebulization 3 ml UPD Q6H PRN PRNQty: 0 RF: 0 docusate sodium [Colace] 100 mg Capsule 100 mg PO TID PRN PRNQty: 0 RF: 0 omeprazole 20 mg Capsule,Delayed Release(Dr/Ec) 20 mg PO BID@0730,2000 Qty: 0 RF: 0 nystatin 100,000 unit/gram Powder topical BID Qty: 0 RF: 0 Novolog Flexpen U-100 Insulin 100 unit/mL Insulin Pen subcut 0800,1200,1700 Qty: 0 RF: 0 levofloxacin in D5W 750 mg/150 mL Piggyback 750 mg IVPB Q48H Qty: 0 RF: 0 Continued tamsulosin 0.4 mg capsule 0.4 mg PO DAILY@1800 90 Days Qty: 90 RF: 3 multivitamin [Daily Multiple] 1 EACH tablet 1 ea PO DAILY RF: 0 blood-glucose meter [[employer] [facility] [employer] Ultra2] 1 EACH kit 1 ea Miscellaneous DAILY Qty: 1 RF: 0 omeprazole 20 MG capsule,delayed release(DR/EC) 20 mg PO DAILY RF: 0 furosemide 20 MG tablet 20 mg PO DAILY Qty: 90 RF: 3 potassium chloride [Klor-Con M10] 10 MEQ tablet,ER particles/crystals 10 meq PO DAILY Qty: 90 RF: 1 metoprolol tartrate 100 mg tablet 50 mg PO BID Qty: 60 RF: 4 amlodipine 5 mg tablet 5 mg PO DAILY Qty: 90 RF: 4 [employer] [facility] [employer] Ultra Test strip 1 ea Miscellaneous DAILY Qty: 90 RF: 3 lancets [[employer] UltraSoft Lancets] misc 1 ea Miscellaneous DAILY Qty: 90 RF: 4 pravastatin 40 mg tablet 40 mg PO QPM Qty: 90 RF: 3 Discontinued glipizide 5 mg tablet 10 mg PO DAILY Qty: 180 RF: 3 warfarin [Jantoven] 2.5 mg tablet 5 mg PO DIRECTED Qty: 180 RF: 6 doxycycline hyclate 100 mg capsule 100 mg PO BID Qty: 10 RF: 0 cefpodoxime 200 mg tablet 200 mg PO Q24H Qty: 5 RF: 0 Discharge Instructions Instructions: Kidney Stones (DC), Cystoscopy (DC) Stand Alone Forms: Nursing Discharge Form Referrals: Ricardo Luis DO [Primary Care Provider] - Activity:: Activity as Tolerated Diet:: diabetic cardiac Discharge Orders Discharge Orders: Discharge Order (Routine); Ordered 04/20/19 Ordered By: Anali Miller Exam Narrative Exam Narrative: General: Obese middle-aged male, only very minimally tachypneic, somewhat slow to respond when talking to me, but able to have a complicated conversation about his care with me, A&Ox3, looks better than yesterday HEENT: EOMI, MMM Heart: irregularly irregular rhythm, no m/r/g Lungs: CTAB Abdomen: soft, nontender, nondistended Extremities: trace edema - improved; no clubbing/cyanosis DS: Data Vitals/I&O Vitals and I&O: Vital Signs Temperature 37.1 C 04/20/19 07:10 Temperature Source Tympanic 04/20/19 07:10 Pulse 87 04/20/19 07:10 Pulse Rhythm Irregular 04/20/19 10:17 Respiratory Rate 18 04/20/19 07:10 Respiratory Effort 04/20/19 10:17 Respiratory Depth Shallow 04/20/19 10:17 Respiratory Pattern Normal 04/20/19 10:17 Blood Pressure 113/79 04/20/19 07:10 Blood Pressure Position Sitting 04/12/19 11:56 Pulse Oximetry 97 04/20/19 07:10 Oxygen Delivery Method Bi-pap 04/20/19 07:10 Oxygen Flow Rate 0 04/20/19 03:15 Pain Level 0 04/20/19 07:10 Comment 04/20/19 03:15 Intake & Output 04/19/19 04/19/19 04/20/19 11:59 23:59 11:59 Intake Total 1290 / 2067.5 777.5 / 2067.5 260 / 260 Output Total 2625 / 4775 2150 / 4775 2525 / 2525 Balance -1335 / -2707.5 -1372.5 / -2707.5 -2265 / -2265 Weight 139.4 kg 139 kg Intake: IV 57.5 / 57.5 260 / 260 Oral 1290 / 2009 720 / 2010 Output: Urine 2625 / 4775 2150 / 4775 2525 / 2525 Other: Urine Color Pale Light Hui Yellow Light Hui Urine Appearance Cloudy Clear Clear Comment monitored carefully as patient is on lasix drip some blood tinged swirls noted in urine. Stool Size Moderate Stool Characteristics Formed Brown Completed studies during hospitalization [Text1]: CXR 04/12/19: No definite acute pulmonary process US renal 04/14/19: 1. Bilateral nephrolithiasis. 2. Right renal cysts. 3. No evidence of obstructive uropathy. CT chest 04/16/19: No evidence of acute cardiopulmonary disease on a noncontrast enhanced chest CT. Venous doppler BLE's 04/18/19: There is no evidence of DVT in either lower extremity. CT abdomen and pelvis 04/18/19: Limited study. Multiple bilateral non obstructing renal calculi and bladder calculi. Obstructing calculus or calculi at left UPJ measuring up to about 16 by 8 mm. in diameter on coronal images. CXR 04/18/19: No evidence of acute disease. Labs on day of discharge: Labs from last 24 hours 04/20/19 04/20/19 04/20/19 11:11 06:35 06:35 WBC 11.58 H RBC 3.83 L Hgb 10.4 L Hct 33.0 L MCV 86.2 MCH 27.2 MCHC 31.5 L RDW 14.9 H Plt Count 314 MPV 8.8 Immature Gran % 0.5 Neutrophils % 77.6 Lymphocytes % 13.0 Monocytes % 7.7 Eosinophils % 1.0 Basophils % 0.2 Absolute Neutrophils 8.99 H Absolute Lymphocytes 1.51 Absolute Monocytes 0.89 H Absolute Eosinophils 0.12 Absolute Basophils 0.02 PT Pending INR Pending Sodium 136 Potassium 4.1 Chloride 105 Carbon Dioxide 18.4 L Anion Gap 12.6 H BUN 47 H Creatinine 3.14 H Estimated GFR/1.73 m2 19.25 Glucose 173 H Calcium 10.3 H Magnesium 2.1 C-Reactive Protein 7.84 H Preliminary micro results at discharge 04/16/19 08:55 Blood Culture - Preliminary Blood NO GROWTH 96 HOURS 04/16/19 08:45 Blood Culture - Preliminary Blood NO GROWTH 96 HOURS 04/18/19 11:22 Blood Culture - Preliminary Blood NO GROWTH 24 HOURS 04/18/19 10:56 Blood Culture - Preliminary Blood NO GROWTH 24 HOURS [facility] Medical History Chronic anticoagulation (Chronic) Atrial fibrillation (Chronic) Bladder stone (Resolved 02/14/16) Carpal tunnel syndrome (Chronic) Cellulitis of foot (Resolved 10/17/06) Generalized osteoarthrosis (Chronic) Hiatal hernia (Chronic) Obesity (Chronic 02/11/13) Polyp of colon (Chronic) Rosacea (Chronic) Sexual function problem (Chronic) Sleep apnea (Chronic 02/14/16) Constipation (Chronic) Chronic a-fib (Chronic) Nephrolithiasis (Chronic) CHF (congestive heart failure) (Chronic) BPH (benign prostatic hyperplasia) (Chronic) GERD (gastroesophageal reflux disease) (Chronic) Hyperlipidemia (Chronic) 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 Daughter No problems noted. Social History Smoking/Tobacco Use Status: Never Alcohol Intake: never Drug use: Never Substance use type: does not use Household members: spouse Pets and animals: No What type of physical activity do you participate in: none Special amor needs: No Do you feel safe at home: Yes Do you feel safe in your relationship?: Yes
[2019-04-20 11:44] LABS: INR 1.6 (0.9-1.1); Prothrombin Time 15.9 sec (9.3-11.0)
[2019-04-20 12:04] VITALS: BP 122/76; PULSE 77; RESP 32; TEMP 36.2; O2SAT 96
--- NOTE | 2019-04-20 12:16 | PT.INDS ---
Date of service: 04/20/19 Time of Service: 12:16 PT Notes Date: 04/17/2019 Referring Doctor: Anita Tran NP PT Orders: PT CONSULT: Generalized weakness Precautions: Fall. Standard. Treatment Dates: 04/17/19 - 04/20/19 This document serves as a summary of care. Patient Profile/Admitting Diagnosis: Patient is a 78-year-old male with past medical history significant for right total knee replacement, obesity, diabetes mellitus, and chronic atrial fibrillation who presented to the ED on fever, productive cough, and nasal congestion x3 days. Patient was diagnosed with a urinary tract infectin and acute renal insufficiency. Orders received for functional mobility training, gait and balance training, and therapy discharge planning. Patient participated in skilled PT intervention for a total of 3 PT sessions over the past 3 days, and will now be transferred to a tertiary care facility for ongoing medical intervention. PMHX: Medical History Chronic a-fib (Chronic) Nephrolithiasis (Chronic) CHF (congestive heart failure) (Chronic) BPH (benign prostatic hyperplasia) (Chronic) GERD (gastroesophageal reflux disease) (Chronic) Hyperlipidemia (Chronic) 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, Class III, 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) LUCAS on CPAP (Chronic) Essential hypertension, benign (Chronic) Hemothorax on left (Resolved) Surgical History Cholecystectomy (~1985) Colonoscopy - MAC (~2002) Replacement of total knee joint Tonsillectomy and adenoidectomy Social History/Home Situation: Patient lives with Lashawn in a [address] in [facility] with 2 steps to enter, no rails. He is independent with all mobility related-ADLs using straight cane. 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 They have one supportive daughter who lives locally. Current Functional Limitations: Need for assistance for all transfer and ambulation task using FWW Equipment Owned/DME: Patient states he has walkers, canes, and a wheelchair at home Subjective: None obtained Objective: ROM: Right Upper Extremity: Shoulder Flexion WFL. Shoulder abduction WFL. Elbow flexion WFL. Wrist flexion WFL. Functional opening and closing of hand WFL. Left Upper Extremity: Shoulder Flexion WFL. Shoulder abduction WFL. Elbow flexion WFL. Wrist flexion WFL. Functional opening and closing of hand WFL. 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 Hip abduction WFL. Knee flexion 0-100. Ankle dorsiflexion WFL. Ankle plantarflexion WFL. 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 Hip abduction WFL. Knee flexion WFL. Ankle dorsiflexion WFL. Ankle plantarflexion WFL. Strength: Right Upper Extremity: Shoulder flexors 5/5. Shoulder abductors 5/5. Elbow flexors 5/5. Elbow extensors 5/5. Digital Analytics Manager strong. Left Upper Extremity: Shoulder flexors 5/5. Shoulder abductors 5/5. Elbow flexors 5/5. Elbow extensors 5/5. Digital Analytics Manager strong. Right Lower Extremity: Hip flexors 3-/5. Hip abductors 4/5. Knee flexors 3-/5. Knee extensors 4-/5. Ankle dorsiflexors 4/5. Ankle plantarflexors 4/5. Left Lower Extremity:Hip flexors 3-/5. Hip abductors 4/5. Knee flexors3-/5. Knee extensors 4-/5. Ankle dorsiflexors 4/5. Ankle plantarflexors 5/5. Bed Mobility/Transfers: Rolling SBA Supine to sit SBA Sit to supine SBA Sit to stand SBA Stand to sit SBA Bed to chair SBA Chair to bed SBA Gait: Patient was able to ambulate up to 100' with FWW and SBA, without rest periods. Balance: Static Sitting: Good Dynamic Sitting: Good Static Standing: Fair Dynamic Standing: Fair Assessment: 78-year-old male with diagnosis of urinary tract infection and acute renal insufficiency. Patient made gains in functional mobility, although requires ongoing medical intervention at a tertiary care facility. He is subsequently discharged from PT services at this facility although goals have not been met. He will benefit from PT intervention once medically stabilized to allow for continued gains in safety and mobility. Goals: Goals X1 week 1. Supine-Sit independent (progressing toward) 2. Sit-Supine independent (progressing toward) 3. Sit-Stand independent (progressing toward) 4. Stand-Sit independent (progressing toward) 5. Bed-Chair independent (progressing toward) 6. Chair-Bed independent (progressing toward) 7. Independent gait on level surface with use of least restrictive device for at least 300 feet without report of pain nor dyspnea (progressing toward) 8. Independent stair negotiation while holding onto bilateral rails for at least 10 steps without report of pain nor dyspnea (progressing toward) 9. Independent with home exercise program (progressing toward) 10. Good static and dynamic standing balance/tolerance (progressing toward) Plan of Care/Treatment Plan: D/C from PT in acute care setting. DISCHARGE RECOMMENDATIONS: Patient transferring to tertiary care facility TREATMENT CODE/TIME: none provided at this time Rhonda Porter, PT, DPT [facility]
--- NOTE | 2019-04-20 16:33 | PDOC.CMDIS ---
- If Service Date Differs Date of service: 04/20/19 Time of Service: 11:00 LACE Index Scoring Tool - Questions: Length of Stay (in days): 7 - 13 Acuity (Admit via E.D.?): Yes Comorbidities: Diabetes w/o Complication, Congestive Heart Failure, Liver or Renal Disease E.D. Visits: 4 - Answers: Total Score: 17 Risk of Readmission: High Risk Care Management Discharge Reason for Hospitalization: Pneumonia ? UTI Discharge Plan: Sav is being transfered to [facility] via ambulance coordianted by RN Cable Tool Operator. Spouse is present during transfer and aware of plan. Patient/Family Education Needs: Education related to plan for transfer to [facility].
--- NOTE | 2019-04-21 16:36 | CMDISCH_ITS ---
- If Service Date Differs Date of service: 04/20/19 Time of Service: 11:00 LACE Index Scoring Tool - Questions: Length of Stay (in days): 7 - 13 Acuity (Admit via E.D.?): Yes Comorbidities: Diabetes w/o Complication, Congestive Heart Failure, Liver or Renal Disease E.D. Visits: 4 - Answers: Total Score: 17 Risk of Readmission: High Risk Care Management Discharge Reason for Hospitalization: Pneumonia ? UTI Discharge Plan: Sav is being transfered to [facility] via ambulance coordianted by RN Addiction Psychiatrist. Spouse is present during transfer and aware of plan. Patient/Family Education Needs: Education related to plan for transfer to [facility].
== END 2019-04-20 13:37 | disposition short-term general hospital (02) | DRG 872 ==
LOC: ER 12:39 → MS 14:40
PROVIDERS: Nurse Practitioner; Admitting Provider Internal Medicine; Emergency Provider Student in an Organized Health Care Education/Training Program; PCP Emergency Medicine; Visit Provider Internal Medicine
DX: A41.9 Sepsis, unspecified organism (principal); N17.8 Other acute kidney failure; N41.0 Acute prostatitis; N13.2 Hydronephrosis with renal and ureteral calculous obstruction; I13.0 Hypertensive heart and chronic kidney disease with heart failure and stage 1 through stage 4 chronic kidney disease, or unspecified chronic kidney disease; I50.32 Chronic diastolic (congestive) heart failure; E66.2 Morbid (severe) obesity with alveolar hypoventilation; E87.4 Mixed disorder of acid-base balance; Z68.41 Body mass index [BMI] 40.0-44.9, adult; R65.20 Severe sepsis without septic shock; N30.80 Other cystitis without hematuria; E11.22 Type 2 diabetes mellitus with diabetic chronic kidney disease; N18.9 Chronic kidney disease, unspecified; E87.70 Fluid overload, unspecified; G47.33 Obstructive sleep apnea (adult) (pediatric); Z71.3 Dietary counseling and surveillance; Z99.89 Dependence on other enabling machines and devices; Z87.442 Personal history of urinary calculi; Z79.01 Long term (current) use of anticoagulants; Z96.0 Presence of urogenital implants; Z79.84 Long term (current) use of oral hypoglycemic drugs
CPT/HCPCS: 36410; 36415; 51702; 71250; 76770; 80048; 80053; 82805; 82962; 84145; 85652; 87040; 87077; 87449; 93005; 96361; 96365; 96368; 97110; 97162; 97530; 99222; 99223; 99232; 99233; 99239; 99252; 99285; 36600; 71045; 71046; 74176; 80202; 81003; 81015; 83605; 83735; 83880; 84484; 85025; 85610; 85730; 86140; 87070; 87086; 87186; 87205; 93010; 93970; 94640; J1940; J1956; J2543; J3370; J3475; J7620

== ENCOUNTER → 2019-04-28 07:50 | Outpatient (BNVA) | payer OTHER, SELFPAY | PROVIDERS: PCP Emergency Medicine; Visit Provider Urology | DX: R69 Illness, unspecified (principal) ==

== ENCOUNTER 2019-04-28 08:39 | Outpatient (CLI) | payer OTHER, SELFPAY ==
[2019-04-28 09:12] LABS: INR 1.4 (0.9-1.1); Prothrombin Time 14.3 sec (9.3-11.0)
[2019-04-28 09:40] LABS: Calculated LDL 82; Cholesterol 127 mg/dL (50-200); HDL Cholesterol 29 mg/dL (40-60); Triglyceride 82 mg/dL (30-150)
== END 2019-04-28 08:59 ==
PROVIDERS: PCP Emergency Medicine; Visit Provider Emergency Medicine
DX: E11.9 Type 2 diabetes mellitus without complications (principal); E66.9 Obesity, unspecified; I48.91 Unspecified atrial fibrillation; Z79.01 Long term (current) use of anticoagulants; R33.9 Retention of urine, unspecified; I11.0 Hypertensive heart disease with heart failure; I50.9 Heart failure, unspecified
CPT/HCPCS: 36415; 80061; 83721; 99212; 99213; 85610

== ENCOUNTER 2019-05-13 12:23 | Outpatient (CLI) | payer OTHER, SELFPAY ==
[2019-05-13 13:35] LABS: INR 2.8 (0.9-1.1); Prothrombin Time 27.9 sec (9.3-11.0)
== END 2019-05-13 12:43 ==
PROVIDERS: PCP Emergency Medicine; Visit Provider Emergency Medicine
DX: I48.91 Unspecified atrial fibrillation (principal); Z79.01 Long term (current) use of anticoagulants
CPT/HCPCS: 36415; 85610

== ENCOUNTER 2019-07-03 12:30 | Outpatient (CLI) | payer OTHER, SELFPAY ==
[2019-07-03 13:08] LABS: HCT 35.5 % (40.0-50.0); Mean Corpuscular Hemoglobin 27.6 pg (27.0-33.0); Mean Corpuscular Volume 89.2 fL (80-95); Mean Platelet Volume 9.1 fL (8.0-11.0); Platelet Count 199 x1000/uL (130-400); RBC 3.98 m/cumm (4.50-6.00); RBC Distribution Width 16.1 % (11.8-14.1); White Blood Cell Count 4.76 k/cumm (4.4-10.8)
[2019-07-03 13:11] LABS: INR 1.5 (0.9-1.1); Prothrombin Time 15.5 sec (9.3-11.0)
[2019-07-03 14:40] LABS: Anion Gap 9.5 mmol/L (3-11); BUN 29 mg/dL (7-18); CO2 23.5 mmol/L (21.0-32.0); CREATININE 1.97 mg/dL (0.70-1.30); Calcium 9.7 mg/dL (8.5-10.1); Chloride 111 mmol/L (98-107); Estimated GFR 32.96 (mL/min/1.73m2); Glucose 119 mg/dL (70-100); NT-proBNP 3519 pg/mL; Potassium 4.2 mmol/L (3.5-5.1); Sodium 144 mmol/L (136-145)
== END 2019-07-03 12:50 ==
PROVIDERS: PCP Emergency Medicine; Visit Provider Emergency Medicine
DX: I50.9 Heart failure, unspecified (principal); I48.91 Unspecified atrial fibrillation; Z79.01 Long term (current) use of anticoagulants
CPT/HCPCS: 36415; 80048; 85027; 83880; 85610

== ENCOUNTER 2019-07-30 14:39 | Outpatient (CLI) | payer OTHER, SELFPAY ==
[2019-07-30 15:39] LABS: INR 3.3 (0.9-1.1); Prothrombin Time 33.1 sec (9.3-11.0)
== END 2019-07-30 14:59 ==
PROVIDERS: PCP Emergency Medicine; Visit Provider Emergency Medicine
DX: I48.91 Unspecified atrial fibrillation (principal); Z79.01 Long term (current) use of anticoagulants
CPT/HCPCS: 36415; 85610

== ENCOUNTER 2019-09-01 15:14 | Outpatient (CLI) | payer OTHER, SELFPAY ==
[2019-09-01 16:00] LABS: INR 2.6 (0.9-1.1); Prothrombin Time 25.5 sec (9.3-11.0)
[2019-09-01 16:58] LABS: Anion Gap 9.8 mmol/L (3-11); BUN 27 mg/dL (7-18); CO2 25.2 mmol/L (21.0-32.0); CREATININE 1.96 mg/dL (0.70-1.30); Calcium 9.6 mg/dL (8.5-10.1); Chloride 109 mmol/L (98-107); Estimated GFR 33.07 (mL/min/1.73m2); Glucose 118 mg/dL (70-100); Potassium 3.7 mmol/L (3.5-5.1); Sodium 144 mmol/L (136-145)
[2019-09-01 17:44] LABS: NT-proBNP 2782 pg/mL
== END 2019-09-01 15:34 ==
PROVIDERS: PCP Emergency Medicine; Visit Provider Emergency Medicine
DX: I48.91 Unspecified atrial fibrillation (principal); Z79.01 Long term (current) use of anticoagulants; I50.9 Heart failure, unspecified
CPT/HCPCS: 36415; 80048; 83880; 85610

== ENCOUNTER 2019-10-28 15:15 | Outpatient (CLI) | payer OTHER, SELFPAY ==
[2019-10-28 16:01] LABS: Prothrombin Time 29.2 sec (9.3-11.0)
== END 2019-10-28 15:35 ==
PROVIDERS: PCP Emergency Medicine; Visit Provider Emergency Medicine
DX: E11.9 Type 2 diabetes mellitus without complications (principal); I48.91 Unspecified atrial fibrillation; Z79.01 Long term (current) use of anticoagulants
CPT/HCPCS: 36415; 83036; 85610

== ENCOUNTER 2019-11-03 11:13 | Outpatient (CLI) | payer OTHER, SELFPAY ==
--- NOTE | 2019-11-03 11:20 | DI.RAD_ITS ---
EXAM: XR HIP RT COMPLETE AP PELVIS INDICATION: right hip pain acute, M25.551. COMPARISON: CT ABDOMEN PELVIS WO from 04/18/2019 TECHNIQUE: 2D digital imaging was performed. FINDINGS: There are moderate degenerative changes of the right hip. No fracture or dislocation is seen. There is widening of the pubic symphysis which appears unchanged when compared with CT of . Dege nerative changes are noted at the SI joints. There are mild degenerative changes of the left hip. 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
== END 2019-11-03 11:33 ==
PROVIDERS: PCP Emergency Medicine; Visit Provider Emergency Medicine
DX: M25.551 Pain in right hip (principal); M16.11 Unilateral primary osteoarthritis, right hip
CPT/HCPCS: 73502

== ENCOUNTER → 2019-11-24 08:38 | Outpatient (BNVA) | payer OTHER, SELFPAY | PROVIDERS: PCP Emergency Medicine; Referring Provider Emergency Medicine; Visit Provider Orthopaedic Surgery | DX: R10.31 Right lower quadrant pain (principal); E11.9 Type 2 diabetes mellitus without complications; Z79.4 Long term (current) use of insulin; J44.9 Chronic obstructive pulmonary disease, unspecified; I10 Essential (primary) hypertension | CPT/HCPCS: 99201; 99213 ==

== ENCOUNTER 2019-12-12 02:27 | Outpatient (CLI) | payer OTHER, SELFPAY ==
[2019-12-12 11:19] LABS: INR 3.1 (0.9-1.1); Prothrombin Time 30.2 sec (9.3-11.0)
== END 2019-12-12 02:47 ==
PROVIDERS: PCP Emergency Medicine; Visit Provider Emergency Medicine
DX: I48.91 Unspecified atrial fibrillation (principal); Z79.01 Long term (current) use of anticoagulants
CPT/HCPCS: 36415; 85610

== ENCOUNTER → 2019-12-22 11:29 | Outpatient (BNVA) | payer OTHER, SELFPAY | PROVIDERS: PCP Emergency Medicine; Referring Provider Emergency Medicine; Visit Provider Orthopaedic Surgery | DX: M70.61 Trochanteric bursitis, right hip (principal) | CPT/HCPCS: 99212; 99213 ==

== ENCOUNTER 2020-01-28 10:43 | Outpatient (CLI) | payer OTHER, SELFPAY ==
[2020-01-28 12:33] LABS: INR 2.1 (0.9-1.1); Prothrombin Time 21.1 sec (9.3-11.0)
== END 2020-01-28 11:03 ==
PROVIDERS: PCP Emergency Medicine; Visit Provider Emergency Medicine
DX: I48.91 Unspecified atrial fibrillation (principal); Z79.01 Long term (current) use of anticoagulants
CPT/HCPCS: 36415; 85610

== ENCOUNTER 2020-04-08 17:16 | Emergency (ER) | payer OTHER, SELFPAY ==
--- NOTE | 2020-04-08 17:15 | DI.US_ITS ---
EXAM: US LOWER EXTREMITY VENOUS LT CLINICAL HISTORY: ecchymosis swelling. TECHNIQUE: Lower extremity venous ultrasound performed using grayscale, color-flow, and spectral Dop pler analysis. COMPARISON: No exams were available for comparison FINDINGS: The common femoral, femoral and popliteal veins demonstrate normal compressibility, augmentation, and color Doppler. The posterior tibial veins are patent. The saphenous vein appears free of thrombus. No Wilde's cyst or hematoma is seen. There is mild soft tissue edema in the distal calf. IMPRESSION: No evidence of DVT. DATA REPOSITORY:
[2020-04-08 17:25] VITALS: BP 148/96; PULSE 89; RESP 20; TEMP 36.4; O2SAT 97
--- NOTE | 2020-04-08 17:32 | W.ED.GENAD ---
Discharge Plan Disposition Patient Disposition: HOME Condition: Stable Discharge Details Chief Complaint: Cellulitis Clinical Impression: Cellulitis of left ankle Primary Care Provider: Ricardo Luis ED Provider: Shivani Ware Home Meds and New Rx's Prescriptions: New cephalexin [Keflex] 500 mg capsule 500 mg PO QID Qty: 36 RF: 0 Continued ipratropium-albuterol 0.5 mg-3 mg(2.5 mg base)/3 mL solution for nebulization 3 ml UPD Q6H PRN PRNRF: 0 potassium chloride [Klor-Con M10] 10 mEq tablet,ER particles/crystals 10 meq PO DAILY RF: 0 furosemide 20 mg tablet 60 mg PO BID Qty: 180 RF: 6 prednisone 20 mg tablet 10 - 40 mg PO DAILY Qty: 16 RF: 0 multivitamin [Daily Multiple] 1 EACH tablet 1 ea PO DAILY RF: 0 (DME) blood-glucose meter [TCD [employer]uch Ultra2 Meter] 1 EACH kit 1 ea Miscellaneous DAILY Qty: 1 RF: 0 omeprazole 20 MG capsule,delayed release(DR/EC) 20 mg PO DAILY RF: 0 (DME) blood sugar diagnostic [OneTouch Ultra Test] strip 1 ea Miscellaneous DAILY Qty: 90 RF: 3 (DME) lancets [BeFunkyTouch UltraSoft Lancets] misc 1 ea Miscellaneous DAILY Qty: 90 RF: 4 glipizide 5 mg tablet 10 mg PO DAILY Qty: 180 RF: 3 tamsulosin 0.4 mg capsule 0.4 mg PO HS Qty: 90 RF: 3 warfarin [Coumadin] 5 mg tablet 5 mg PO DAILY Qty: 180 RF: 6 amlodipine 5 mg tablet 5 mg PO DAILY Qty: 90 RF: 4 pravastatin 40 mg tablet 40 mg PO QPM Qty: 90 RF: 3 metoprolol tartrate 100 mg tablet 50 mg PO BID Qty: 60 RF: 8 acetaminophen [Tylenol] 325 mg Tablet 650 mg PO Q4H PRN PRNQty: 0 RF: 0 docusate sodium [Colace] 100 mg Capsule 100 mg PO TID PRN PRNQty: 0 RF: 0 nystatin 100,000 unit/gram Powder 0 g topical BID Qty: 0 RF: 0 insulin aspart U-100 [Novolog Flexpen U-100 Insulin] 100 unit/mL Insulin Pen 0 units subcut 0800,1200,1700 Qty: 0 RF: 0 Discharge Instructions Instructions: Cellulitis (ED) Additional Instructions: Follow up with primary care provider in 3-5 days. Return to ED sooner if any worsening or concerns. Increase oral fluids. Take medications as prescribed. Return for any worsening redness, worsening pain, fever or worsening of condition any at all. Referrals: Ricardo Luis, [Primary Care Provider] - Medical Decision Making <Shivani Ware - Last Filed: 04/08/20 20:50> 79-year-old male presents to the ED for chief complaint of left lower extremity pain and swelling. Patient describes pain as a sharp searing intermittent pain. Patient states it began last night when he noticed redness to the medial aspect of his left lower extremity, he states that pain and redness has gotten worse. He has a history of cellulitis of the foot, obesity, non-insulin dependent diabetic, atrial fibrillation , which he is currently on warfarin for. On exam, he does have bilateral lower extremity 2+ pitting edema. Area of ecchymosis measuring approximately 9 cm x 7 cm. He denies any shortness of breath or chest pain. He denies any fever nausea vomiting or diarrhea. High suspicion at this time is for left lower extremity cellulitis other differential includes DVT. At this time ultrasound is unavailable will order d-dimer to rule out possible clot. Will start patient on antibiotics with expected disposition discharge with close follow-up for ultrasound sometime this weekend if possible. Ultrasound he is due to come in approximately 30 minutes. D-dimer is elevated 800 but according to age-adjusted d-dimer this is within normal limits. We will give patient a dose of Rocephin 1 g IV piggyback. At this time INR is therapeutic on warfarin so low suspicion for DVT. 1845: Ultrasound at bedside for Doppler to rule out DVT. 192: Preliminary result received by electronics repair technician, negative for DVT. Patient will be discharged with diagnosis of cellulitis placed on cephalexin twice daily x 10 days. This text was generated using [employer] system, please disregard any oddities of phrase or misspellings. <Chapin Jessica MD - Last Filed: 04/08/20 19:48> Patient seen, examined, and discussed with ARCADIO Ware. Left leg was examined and consistent with cellulitis. INR therapeutic. I feel DVT is low likelihood. Ultrasound interpreted by radiology as negative for DVT. I agree with treatment plan as discussed/documented. HPI <Shivani Ware - Last Filed: 04/08/20 20:50> General Mode of arrival: wheelchair. Date/Time Provider Initiated Documentation: 04/08/20 17:19. Limitations to Documentation: no limitations. Information obtained by: patient. HPI Narrative: 79-year-old male presents to the ED for chief complaint of left lower extremity pain and swelling. Patient describes pain as a sharp searing intermittent pain. Patient states it began last night when he noticed redness to the medial aspect of his left lower extremity, he states that pain and redness has gotten worse. He has a history of cellulitis of the foot, obesity, non-insulin dependent diabetic, atrial fibrillation , which he is currently on warfarin for. On exam, he does have bilateral lower extremity 2+ pitting edema. Area of ecchymosis measuring approximately 9 cm x 7 cm. He denies any shortness of breath or chest pain. He denies any fever nausea vomiting or diarrhea. Related Data Home Medications Medication Instructions Recorded Confirmed multivitamin [Daily Multiple] 1 ea PO DAILY 12/11/16 04/08/20 blood-glucose meter [OneTouch #1 kit 02/12/17 04/08/20 Ultra2 Meter] omeprazole 20 mg PO DAILY cap 04/15/18 04/08/20 blood sugar diagnostic #90 strip 11/04/18 04/08/20 lancets #90 ea 11/06/18 04/08/20 acetaminophen [Tylenol] 650 mg PO Q4H PRN PRN #0 tab 04/20/19 04/08/20 docusate sodium [Colace] 100 mg PO TID PRN PRN #0 cap 04/20/19 04/08/20 insulin aspart U-100 [Novolog 0 units SUBCUT 0800,1200,1700 #0 ml 04/20/19 04/08/20 Flexpen U-100 Insulin] nystatin 0 g TOPICAL BID #0 g 04/20/19 04/08/20 ipratropium 0.5 mg-albuterol 3 mg 3 ml UPD Q6H PRN PRN ml 06/23/19 04/08/20 (2.5 mg base)/3 mL nebulization soln potassium chloride 10 mEq 10 meq PO DAILY tabcr 06/23/19 04/08/20 tablet,extended release(part/cryst) furosemide 20 mg tablet 60 mg PO BID #180 tab 08/05/19 04/08/20 glipizide 5 mg tablet 10 mg PO DAILY #180 tab 09/28/19 04/08/20 tamsulosin 0.4 mg capsule 0.4 mg PO HS #90 cap 09/29/19 04/08/20 warfarin 5 mg tablet 5 mg PO DAILY #180 tab 12/22/19 04/08/20 amlodipine 5 mg tablet 5 mg PO DAILY #90 tab-cap 01/18/20 04/08/20 pravastatin 40 mg tablet 40 mg PO QPM #90 tab 01/18/20 04/08/20 prednisone 20 mg tablet 10 - 40 mg PO DAILY #16 tab 03/25/20 04/08/20 metoprolol tartrate 100 mg tablet 50 mg PO BID #60 tab 04/07/20 04/08/20 cephalexin [Keflex] 500 mg PO QID #36 cap NS 04/08/20 Previous Rx's Medication Instructions Recorded blood sugar diagnostic #90 strip 11/04/18 lancets #90 ea 11/06/18 acetaminophen [Tylenol] 650 mg PO Q4H PRN PRN #0 tab 04/20/19 docusate sodium [Colace] 100 mg PO TID PRN PRN #0 cap 04/20/19 insulin aspart U-100 [Novolog 0 units SUBCUT 0800,1200,1700 #0 ml 04/20/19 Flexpen U-100 Insulin] nystatin 0 g TOPICAL BID #0 g 04/20/19 furosemide 20 mg tablet 60 mg PO BID #180 tab 08/05/19 glipizide 5 mg tablet 10 mg PO DAILY #180 tab 09/28/19 tamsulosin 0.4 mg capsule 0.4 mg PO HS #90 cap 09/29/19 warfarin 5 mg tablet 5 mg PO DAILY #180 tab 12/22/19 amlodipine 5 mg tablet 5 mg PO DAILY #90 tab-cap 01/18/20 pravastatin 40 mg tablet 40 mg PO QPM #90 tab 01/18/20 prednisone 20 mg tablet 10 - 40 mg PO DAILY #16 tab 03/25/20 metoprolol tartrate 100 mg tablet 50 mg PO BID #60 tab 04/07/20 cephalexin [Keflex] 500 mg PO QID #36 cap NS 04/08/20 Allergies Allergy/AdvReac Type Severity Reaction Status Date / Time No Known Allergies Allergy Verified 04/08/20 18:03 General Stated Complaint: Cellulitis GISSEL: 3 Review of Systems <Shivani Ware - Last Filed: 04/08/20 20:50> Narrative: Constitutional: Negative for weight loss, alert and oriented, well groomed, obese body habitus, appears comfortable. HEENT: Denies trauma, headaches, blurry vision, nasal discharge, sore throat, trouble swallowing. Chest: Denies chest pain, palpitations, irregular rhythm, hypertension. Respiratory: Denies Shortness of breath, cough, hemoptysis. GI: Denies abdominal pain, nausea, vomiting, diarrhea, constipation. Does have a noted umbilical hernia : Denies dysuria, hematuria, flank pain, rectal bleeding. Musculoskeletal: Does have pitting edema bilateral lower extremities and complaining of left lower extremity pain and area of ecchymosis. Neuro: Denies dizziness, blurry vision, weakness, syncope, headache or facial numbness. Hematologic: Denies, intolerance to heat or cold, hair loss. All systems reviewed & are unremarkable except as noted in HPI and below PFSH <Shivani Jeanie - Last Filed: 04/08/20 20:50> Medical History Acute renal insufficiency (Acute) Atrial fibrillation (Chronic) Bladder stone (Chronic 02/14/16) BPH (benign prostatic hyperplasia) (Chronic) Carpal tunnel syndrome (Chronic) Cellulitis of foot (Resolved 10/17/06) RIGHT CHF (congestive heart failure) (Chronic) Chronic anticoagulation (Chronic) Constipation (Chronic) Diabetes mellitus type 2 in obese (Chronic) Essential hypertension, benign (Chronic) Generalized osteoarthrosis (Chronic) GERD (gastroesophageal reflux disease) (Chronic) Hiatal hernia (Chronic) Hyperlipidemia (Chronic) Nephrolithiasis (Chronic) Obesity (Chronic 02/11/13) Obesity, Class III, 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 Daughter No problems noted. Social History Smoking/Tobacco Use Status: Never Alcohol Intake: never Drug use: Never Substance use type: does not use Household members: spouse Pets and animals: No What type of physical activity do you participate in: none Special amor needs: No Do you feel safe at home: Yes Do you feel safe in your relationship?: Yes Exam <Shivani Ware - Last Filed: 04/08/20 20:50> Narrative Exam Narrative: Constitutional: Alert and oriented x3. Appears stated age. Obese body habitus. Head: Normocephalic, no trauma. Eyes: Pupils PERRLA, Red reflex noted, EOM's intact. Eyelids symmetrical without lesions, discharge, or swelling. ENT: Bilateral TM's WNL, External ear normal to inspection, no mastoid TTP, swelling, or erythema, Nasal turbinates WNL, no nasal discharge. Normal dentition, Posterior pharynx WNL, no exudate. Chest: RRR, Normal S1, S2, distal pulses intact. Resp: Lungs clear to auscultation bilaterally, no wheezes, rales, or rhonchi. Has shortness of breath from baseline. Abdomen: Very large abdomen, umbilical hernia noted abdomen is soft nontender to palpation. Musculoskeletal: 5/5 strength to all four extremities. Has left lower extremity tenderness, large area of ecchymosis noted to the medial aspect of his left leg. This measures about approximately 9 cm x 5 cm. Warmth also noted. Skin: Area of ecchymosis as noted above. Capillary refill less than 2 sec. Neurologic: Cranial nerves II-XII intact. Alert and oriented x 3. DTR's intact. Hematologic/Lymphatic: no lymphadenopathy. Course <Shivani Ware - Last Filed: 04/08/20 20:50> Vital Signs Vital signs: Vital Signs Temperature 36.4 C L 04/08/20 17:25 Pulse 89 04/08/20 17:25 Respiratory Rate 20 04/08/20 17:25 Blood Pressure 148/96 H 04/08/20 17:25 Pulse Oximetry 97 04/08/20 17:25 Temperature 36.4 C L 04/08/20 17:25 Temperature Source Temporal Artery Scan 04/08/20 17:25 Pulse 89 04/08/20 17:25 Respiratory Rate 20 04/08/20 17:25 Respiratory Effort Labored 04/08/20 17:31 Blood Pressure 148/96 H 04/08/20 17:25 Blood Pressure Position Supine 04/08/20 17:25 Pulse Oximetry 97 04/08/20 17:25 Oxygen Delivery Method Room Air 04/08/20 17:25 Oxygen Flow Rate 0 04/08/20 17:25 Pain Level 7 04/08/20 17:25 Lab/Test Results Lab/Test Results: 04/08/20 17:27 Blood Blood Culture - Pending 04/08/20 17:27 Blood Blood Culture - Pending
[2020-04-08 17:50] LABS: Abs Immature Grans 0.03 k/cumm (0.0-0.09); Absolute Basophil Count 0.01 k/cumm (0.0-0.2); Absolute Eosinophil Count 0.16 k/cumm (0.0-0.7); Absolute Lymphocyte Count 1.84 k/cumm (1.2-3.4); Absolute Monocyte Count 0.92 k/cumm (0.11-0.7); Absolute Neutrophil Count 8.31 k/cumm (1.2-6.7); Basophils % 0.1; Eosinophils % 1.4; HCT 40.3 % (40.0-50.0); HGB 12.8 g/dL (13.5-17.5); Immature Grans % 0.3 %; Lymphocytes % 16.3; Mean Corp. HGB Concentration 31.8 g/dL (32.0-36.0); Mean Corpuscular Hemoglobin 27.9 pg (27.0-33.0); Mean Corpuscular Volume 87.8 fL (80-95); Mean Platelet Volume 9.3 fL (8.0-11.0); Monocytes % 8.2; Neutrophils % 73.7; Platelet Count 185 x1000/uL (130-400); RBC 4.59 m/cumm (4.50-6.00); RBC Distribution Width 15.8 % (11.8-14.1); White Blood Cell Count 11.28 k/cumm (4.4-10.8)
[2020-04-08 17:59] LABS: INR 3.4 (0.9-1.1); Prothrombin Time 33.1 sec (9.3-11.0)
[2020-04-08 18:01] VITALS: RESP 20; TEMP 36.4; O2SAT 97
[2020-04-08 18:18] LABS: ALT 26 U/L (16-63); AST 18 U/L (15-37); Albumin 3.2 g/dL (3.4-5.0); Alkaline Phosphatase 101 U/L (46-116); Anion Gap 7.2 mmol/L (3-11); BUN 39 mg/dL (7-18); Bilirubin, Total 0.9 mg/dL (0.2-1.0); CO2 25.8 mmol/L (21.0-32.0); CREATININE 1.88 mg/dL (0.70-1.30); Calcium 9.9 mg/dL (8.5-10.1); Chloride 105 mmol/L (98-107); D-Dimer 800 ng/mlFEU (<500); Glucose 210 mg/dL (74-106); Magnesium 2.1 mg/dL (1.8-2.4); Potassium 3.9 mmol/L (3.5-5.1); Sodium 138 mmol/L (136-145)
[2020-04-08] MEDS: cefTRIAXone 1 GM/50 ML BAG IVPB (18:21)
[2020-04-08 18:23] VITALS: BP 148/86; RESP 20; TEMP 36.2; O2SAT 97
--- NOTE | 2020-04-08 19:27 | DI.VRAD_ITS ---
PROCEDURE INFORMATION: Exam: US Duplex Left Lower Extremity Veins, Limited Exam date and time: 04/08/2020 5:31 PM Age: 79 years old Clinical indication: Other: Erythema/swelling lle TECHNIQUE: Imaging protocol: Real-time Duplex ultrasound of the Left Lower Extremity with 2-D new scale, color Doppler flow and spectral waveform analysis with image documentation. Limited exam focused on the left lower extremity veins. COMPARISON: US extremity venous BI 04/18/2019 1:00 PM FINDINGS: Left deep veins: Unremarkable. The common femoral, femoral, proximal profunda femoral and popliteal veins are patent without thrombus. Normal Doppler waveforms. Normal compressibility and/or augmentation response. Left superficial veins: Unremarkable. Saphenofemoral junction is patent without thrombus. Soft tissues: Calf edema distally. IMPRESSION: No evidence of deep vein thrombosis. Dictated and Authenticated by: Mony Haile MD. Ordering:JEANETTE Parrish MD
[2020-04-08 20:02] VITALS: BP 140/91; PULSE 89; RESP 17; TEMP 36.6; O2SAT 99
== END 2020-04-08 19:50 | disposition home or self-care (01) ==
PROVIDERS: Emergency Provider Registered Nurse Emergency; PCP Emergency Medicine
DX: L03.116 Cellulitis of left lower limb (principal); E11.9 Type 2 diabetes mellitus without complications; Z79.84 Long term (current) use of oral hypoglycemic drugs; Z79.01 Long term (current) use of anticoagulants; I48.91 Unspecified atrial fibrillation; I12.0 Hypertensive chronic kidney disease with stage 5 chronic kidney disease or end stage renal disease
CPT/HCPCS: 36415; 80053; 87040; 96365; 99284; 83735; 85025; 85379; 85610; 93971; 99285; J0696

== ENCOUNTER 2020-04-13 09:41 | Outpatient (CLI) | payer OTHER, SELFPAY ==
[2020-04-13 16:35] LABS: INR 1.8 (0.9-1.1); Prothrombin Time 18.3 sec (9.3-11.0)
== END 2020-04-13 10:01 ==
PROVIDERS: PCP Emergency Medicine; Visit Provider Emergency Medicine
DX: I48.91 Unspecified atrial fibrillation (principal); Z79.01 Long term (current) use of anticoagulants
CPT/HCPCS: 36415; 85610

== ENCOUNTER 2020-09-01 02:56 | Outpatient (CLI) | payer OTHER, SELFPAY ==
[2020-09-01 14:38] LABS: Prothrombin Time 32.6 sec (9.3-11.0)
[2020-09-01 14:39] LABS: INR 3.3 (0.9-1.1)
== END 2020-09-01 03:16 ==
PROVIDERS: PCP Emergency Medicine; Visit Provider Emergency Medicine
DX: I48.20 Chronic atrial fibrillation, unspecified (principal); Z79.01 Long term (current) use of anticoagulants
CPT/HCPCS: 36415; 85610

== ENCOUNTER 2020-11-22 05:23 | Emergency (ER) | payer OTHER, SELFPAY ==
--- NOTE | 2020-11-22 05:30 | DI.CT_ITS ---
EXAM: CT UPPER EXTREMITY LT WO CLINICAL HISTORY: nontraumatic left upper humerus and elbow pain. TECHNIQUE: Imaging Protocol: Axial computed tomography images with coronal and sagittal reformatted images were created and reviewed. COMPARISON: No exams were available for comparison FINDINGS: The elbow is incompletely imaged on this examination. Neither the epicondyles can't be adequately ev aluated on this examination. Bones: The visualized osseous structures and articular surfaces are intact. There is no evidence of fracture or dislocation. Degenerative changes are seen at the glenohumeral joint and to a lesser degr ee the acromioclavicular joint. Old root left rib fractures are noted. Degenerative changes are see n in the spine. The visualized portions of the radius and ulna appear intact. The proximal radius a nd ulna are not well visualized. Soft Tissues: Normal. IMPRESSION: 1. Inadequate examination for evaluation of the elbow. If there is continued concern, a dedicated CT scan of the left elbow should be obtained. 2. No fracture or dislocation of the visualized proximal humerus. RADIATION DOSE DELIVERED: 404.28mGy.cm Total DLP 404.28mGy.cm Total DLP DATA REPOSITORY: All CT scans at this facility are submitted to the National Radiology Data Registry (NRDR) Dose Index Registry (DIR) with the [employer] ([employer]). RADIATION OPTIMIZATION: All CT scans at this facility use at least one of these dose optimization te chniques: automated exposure control; mA and/or kV adjustment per patient size (includes targeted exa ms where dose is matched to clinical indication); or iterative reconstruction.
[2020-11-22 05:32] VITALS: BP 104/65; PULSE 91; RESP 20; TEMP 36.2; O2SAT 96
--- NOTE | 2020-11-22 05:44 | ED.GENADUL_ITS ---
Discharge Plan Disposition Patient Disposition: HOME Condition: Stable Discharge Details Clinical Impression: Elbow pain, left, Left shoulder pain, Closed fracture of left elbow Primary Care Provider: Ricardo Luis ED Provider: Rui Murphy Home Meds and New Rx's Prescriptions: New oxycodone 5 mg tablet 5 mg PO TID PRNQty: 12 RF: 0 Continued ipratropium-albuterol 0.5 mg-3 mg(2.5 mg base)/3 mL solution for nebulization 3 ml UPD Q6H PRN PRNRF: 0 potassium chloride [Klor-Con M10] 10 mEq tablet,ER particles/crystals 10 meq PO DAILY RF: 0 prednisone 20 mg tablet 10 - 40 mg PO DAILY Qty: 16 RF: 0 multivitamin [Daily Multiple] 1 EACH tablet 1 ea PO DAILY RF: 0 (DME) blood-glucose meter [Instant Information Ultra2 Meter] 1 EACH kit 1 ea Miscellaneous DAILY Qty: 1 RF: 0 omeprazole 20 MG capsule,delayed release(DR/EC) 20 mg PO DAILY RF: 0 (DME) SpineGuardTouch Ultra Test strip 1 ea Miscellaneous DAILY Qty: 90 RF: 3 (DME) lancets [SpineGuardTouch UltraSoft Lancets] misc 1 ea Miscellaneous DAILY Qty: 90 RF: 4 warfarin [Coumadin] 5 mg tablet 5 mg PO DAILY Qty: 180 RF: 6 amlodipine 5 mg tablet 5 mg PO DAILY Qty: 90 RF: 4 metoprolol tartrate 100 mg tablet 50 mg PO BID Qty: 60 RF: 8 furosemide 20 mg tablet 60 mg PO BID Qty: 180 RF: 6 tamsulosin 0.4 mg capsule 0.4 mg PO HS Qty: 90 RF: 3 glipizide 5 mg tablet 10 mg PO DAILY Qty: 180 RF: 3 pravastatin 40 mg tablet 40 mg PO QPM Qty: 90 RF: 3 acetaminophen [Tylenol] 325 mg Tablet 650 mg PO Q4H PRN PRNQty: 0 RF: 0 docusate sodium [Colace] 100 mg Capsule 100 mg PO TID PRN PRNQty: 0 RF: 0 nystatin 100,000 unit/gram Powder 0 g topical BID Qty: 0 RF: 0 insulin aspart U-100 [Novolog Flexpen U-100 Insulin] 100 unit/mL Insulin Pen 0 units subcut 0800,1200,1700 Qty: 0 RF: 0 Discharge Instructions Additional Instructions: Take 1000mg tylenol every 6 hours for pain as needed. If you need additional pain relief take 1 oxycodone, try to lay down or stay seated for several hours and do not drink alcohol or drive if you take this medicine call orthopedics for an appointment if you have severe worsening pain or fevers return to the emergency department Referrals: Papa Harris MD [ [facility]YS[facility]IAN] - Medical Decision Making 80 yo male with hx of afib, hld, htn, t2dm, chf, who comes in with nontraumatic left elbow pain since yesterday afternoon with no significant relief with tylenol. He denies falls, fevers, chest pain, abdominal pain, dyspnea. Has limited rom of the elbow due to pain with some swelling but no warmth or erythema or crepitus. Normal distal sensation and pulses and also has proximal humerus tenderness without deformity. Given the reproducible pain in the elbow and shoulder without chest pain or dyspnea doubt acs. Seems likely arthritis vs tendonitis but given increased pain will obtain imaging to evaluate for possible fx though unlikely given fall. No infectious symptoms to suggest nec fasc and no crepitus and no warmth or redness to suggest septic joint pt having difficulty with xrays of humerus/shoulder so ct obtained showing no acute findings and elbow xray shows likely lateral epicondylar fx with joint effusion. His crp and esr are elevated but seems they are chronically elevated. I did recommend performing arthrocentesis but he declined given fx findings and unlikely septic joint and has capacity to make his own decisions and understands risks of missing septic joint including possible loss of limb and life and is willing to accept these risks. Placed in posterior arm splint and sling, will have him f/u with ortho. INtact neurovascular exam so doubt comparemt syndrome Differential Diagnosis Differential Diagnosis: bursitis, arthritis, nec fasc, fx, tendonitis Medical Records Medical records reviewed: Yes I reviewed the patient's medical records. Imaging Data Radiologic Study: Attestation: I personally reviewed and interpreted this imaging study as follows: Imaging: CT Scan Radiologist's impression: IMPRESSION: 1. Left shoulder osteoarthritis. 2. The left elbow is not entirely imaged, lying partially outside the imaging volume Radiologic Study #2: Attestation: I personally reviewed and interpreted this imaging study as follows: Imaging: X-Ray Radiologist's impression: IMPRESSION: 1. Lateral epicondylar fracture suspected. Small densities adjacent to the truncated epicondyle may reflect fracture fragments, as well as a on lateral view and anteriorly displaced fragment appears to be present. . 2. Large joint effusion . Lab Data Lab results reviewed: Yes I reviewed the patient's lab results. HPI General Mode of arrival: wheelchair . Date/Time Provider Initiated Documentation: 11/22/20 05:25 . Limitations to Documentation: no limitations . Information obtained by: patient . History of Present Illness 80 year old M presents to the emergency department with the chief complaint of left elbow pain, described as moderate, Patient started experiencing this day(s) (1) and it has been constant. No relieving factors improve symptom(s), No e xacerbating factors reported . Patient did receive the following treatments prior to arrival, other (tylenol) Related Data Home Medications Medication Instructions Recorded Confirmed multivitamin [Daily Multiple] 1 ea PO DAILY 12/11/16 11/22/20 blood-glucose meter [OneTouch #1 kit 02/12/17 11/22/20 Ultra2 Meter] omeprazole 20 mg PO DAILY cap 04/15/18 11/22/20 blood sugar diagnostic #90 strip 11/04/18 11/22/20 lancets #90 ea 11/06/18 11/22/20 acetaminophen [Tylenol] 650 mg PO Q4H PRN PRN #0 tab 04/20/19 11/22/20 docusate sodium [Colace] 100 mg PO TID PRN PRN #0 cap 04/20/19 11/22/20 insulin aspart U-100 [Novolog 0 units SUBCUT 0800,1200,1700 #0 ml 04/20/19 11/22/20 Flexpen U-100 Insulin] nystatin 0 g TOPICAL BID #0 g 04/20/19 11/22/20 ipratropium 0.5 mg-albuterol 3 mg 3 ml UPD Q6H PRN PRN ml 06/23/19 11/22/20 (2.5 mg base)/3 mL nebulization soln potassium chloride 10 mEq 10 meq PO DAILY tabcr 06/23/19 11/22/20 tablet,extended release(part/cryst) warfarin 5 mg tablet 5 mg PO DAILY #180 tab 12/22/19 11/22/20 amlodipine 5 mg tablet 5 mg PO DAILY #90 tab-cap 01/18/20 11/22/20 prednisone 20 mg tablet 10 - 40 mg PO DAILY #16 tab 03/25/20 11/22/20 metoprolol tartrate 100 mg tablet 50 mg PO BID #60 tab 04/07/20 11/22/20 furosemide 20 mg tablet 60 mg PO BID #180 tab 06/08/20 11/22/20 glipizide 5 mg tablet 10 mg PO DAILY #180 tab 09/09/20 11/22/20 pravastatin 40 mg tablet 40 mg PO QPM #90 tab 09/09/20 11/22/20 tamsulosin 0.4 mg capsule 0.4 mg PO HS #90 cap 09/09/20 11/22/20 oxycodone 5 mg PO TID PRN #12 tab 11/22/20 Previous Rx's Medication Instructions Recorded blood sugar diagnostic #90 strip 11/04/18 lancets #90 ea 11/06/18 acetaminophen [Tylenol] 650 mg PO Q4H PRN PRN #0 tab 04/20/19 docusate sodium [Colace] 100 mg PO TID PRN PRN #0 cap 04/20/19 insulin aspart U-100 [Novolog 0 units SUBCUT 0800,1200,1700 #0 ml 04/20/19 Flexpen U-100 Insulin] nystatin 0 g TOPICAL BID #0 g 04/20/19 warfarin 5 mg tablet 5 mg PO DAILY #180 tab 12/22/19 amlodipine 5 mg tablet 5 mg PO DAILY #90 tab-cap 01/18/20 prednisone 20 mg tablet 10 - 40 mg PO DAILY #16 tab 03/25/20 metoprolol tartrate 100 mg tablet 50 mg PO BID #60 tab 04/07/20 furosemide 20 mg tablet 60 mg PO BID #180 tab 06/08/20 glipizide 5 mg tablet 10 mg PO DAILY #180 tab 09/09/20 pravastatin 40 mg tablet 40 mg PO QPM #90 tab 09/09/20 tamsulosin 0.4 mg capsule 0.4 mg PO HS #90 cap 09/09/20 oxycodone 5 mg PO TID PRN #12 tab 11/22/20 Allergies Allergy/AdvReac Type Severity Reaction Status Date / Time No Known Allergies Allergy Verified 11/22/20 05:56 General Stated Complaint: Orthopedic GISSEL: 4 Review of Systems All systems reviewed & are unremarkable except as noted in HPI and below Constitutional Constitutional: Denies chills, Denies fever(s) and Denies weakness Cardiovascular Cardiovascular: Denies chest pain and Denies dyspnea Respiratory Respiratory: Denies cough and Denies dyspnea Gastrointestinal Gastrointestinal: Denies abdominal pain, Denies nausea and Denies vomiting Musculoskeletal Musculoskeletal: Denies joint swelling Neurologic Neurologic: Denies weakness [facility] Medical History (Updated 11/22/20 @ 07:19 by Rui Murphy MD) Acute renal insufficiency Atrial fibrillation Bladder stone (02/14/16) BPH (benign prostatic hyperplasia) Carpal tunnel syndrome Cellulitis of foot (10/17/06) RIGHT CHF (congestive heart failure) Chronic anticoagulation Constipation Diabetes mellitus type 2 in obese Essential hypertension, benign Generalized osteoarthrosis GERD (gastroesophageal reflux disease) Hiatal hernia Hyperlipidemia Nephrolithiasis Obesity (02/11/13) Obesity, Class III, BMI 40-49.9 (morbid obesity) LUCAS on CPAP Pneumonia Polyp of colon Rosacea Sexual function problem Surgical History Cholecystectomy (~1985) Colonoscopy - MAC (~2002) Replacement of total knee joint B/L Tonsillectomy and adenoidectomy Family History Mother Diabetes Heart disease Father Neoplasm STOMACH Brother Neoplasm Brother No problems noted. Daughter No problems noted. Social History Smoking/Tobacco Use Status: Never Smoking risk assessment performed?: Yes Alcohol Intake: never Drug use: Never Substance use type: does not use Household members: spouse Pets and animals: No What type of physical activity do you participate in: none Special amor needs: No Do you feel safe at home: Yes Do you feel safe in your relationship?: Yes Exam Const General: no acute distress Orientation: alert HENMT Head: normal to inspection Ears: external ears normal General nose exam: external nose normal Mouth: moist mucous membranes Eyes General: appearance normal, both eyes and all related structures Neck Neck: normal visual inspection Resp Effort & Inspection: normal respiratory effort and able to speak in complete sentences Cardio Rate: regular rate Skin General skin exam: no rashes or lesions noted Neuro General: patient alert and patient oriented x3 Extrem General: capillary refill normal Psych Mental Status: mental status grossly normal Course Vital Signs Vital signs: Vital Signs Temperature 36.2 C L 11/22/20 05:32 Pulse 91 H 11/22/20 05:32 Respiratory Rate 20 11/22/20 05:32 Blood Pressure 104/65 11/22/20 05:32 Pulse Oximetry 96 11/22/20 05:32 Temperature 36.2 C L 11/22/20 05:32 Temperature Source Skin 11/22/20 05:32 Pulse 91 H 11/22/20 05:32 Respiratory Rate 20 11/22/20 05:32 Blood Pressure 104/65 11/22/20 05:32 Blood Pressure Position Sitting 11/22/20 05:32 Pulse Oximetry 96 11/22/20 05:32 Oxygen Delivery Method Room Air 11/22/20 05:32 Oxygen Flow Rate 0 11/22/20 05:32
[2020-11-22 05:57] LABS: Abs Immature Grans 0.03 10^3/uL (0.0-0.06); Absolute Basophil Count 0.02 10^3/uL (0.0-0.2); Absolute Eosinophil Count 0.06 10^3/uL (0.0-0.7); Absolute Monocyte Count 0.82 10^3/uL (0.1-0.8); Absolute Neutrophil Count 5.14 10^3/uL (1.2-6.7); Basophils % 0.3; Eosinophils % 0.8; HCT 33.4 % (40.0-50.0); HGB 10.3 g/dL (13.5-17.5); Immature Grans % 0.4; Lymphocytes % 16.5; MCH 26.1 pg (27.0-33.0); MCHC 30.8 % (32.0-36.0); MCV 84.6 fL (80-95); MPV 9.6 fL (8.0-11.0); Monocytes % 11.3; Neutrophils % 70.7; Nucleated RBC 0 %; RBC 3.95 10^6/uL (4.36-5.78); RDW 14.6 % (11.8-14.1); WBC 7.27 10^3/uL (4.4-10.8)
[2020-11-22 06:12] LABS: INR 2.7 (0.9-1.1); PTT Activated 39.5 sec (21.0-27.5); Prothrombin Time 26.7 sec (9.3-11.0)
--- NOTE | 2020-11-22 06:15 | DI.RAD_ITS ---
EXAM: XR ELBOW LT COMPLETE CLINICAL HISTORY: pain. TECHNIQUE: 2D digital imaging was performed. COMPARISON: No exams were available for comparison FINDINGS: Examination is limited due to patient cooperation and position. BONES: There appears to be a lateral epicondylar fracture. There are densities lateral to the epicon dyle which may represent displaced fracture fragments. There is an osseous density seen on the later al view anterior to the distal humerus which may reflect a displaced fracture fragment. No bony dest ructive lesion is seen. JOINTS: The elbow is normally aligned. There is a large joint effusion present. SOFT TISSUE: There is soft tissue swelling about the elbow laterally. IMPRESSION: 1. Suboptimal examination due to patient positioning. 2. Findings suspicious for a comminuted lateral epicondylar fracture. CT scan should be considered f or further evaluation. 3. Large joint effusion. 4. Soft tissue swelling about the elbow laterally. DATA REPOSITORY: RADIATION DOSE DELIVERED:
[2020-11-22 06:16] LABS: Polychromasia Present
[2020-11-22 06:19] LABS: ALT 21 U/L (16-63); AST 20 U/L (15-37); Albumin 2.9 g/dL (3.4-5.0); Alkaline Phosphatase 98 U/L (46-116); Anion Gap 9.2 mmol/L (3-11); BUN 38 mg/dL (7-18); Bilirubin, Total 0.8 mg/dL (0.2-1.0); C-Reactive Protein 4.83 mg/dL (0.0-0.3); CO2 23.8 mmol/L (21.0-32.0); CREATININE 2.54 mg/dL (0.70-1.30); Calcium 9.2 mg/dL (8.5-10.1); Chloride 103 mmol/L (98-107); Estimated GFR 24.46 (mL/min/1.73m2); Glucose 175 mg/dL (74-106); Potassium 3.8 mmol/L (3.5-5.1); Sodium 136 mmol/L (136-145)
[2020-11-22] MEDS: predniSONE 20 MG TAB 60 MG PO (06:30)
--- NOTE | 2020-11-22 06:36 | DI.VRAD_ITS ---
PROCEDURE INFORMATION: Exam: CT Left Upper Extremity Without Contrast, Upper Arm Exam date and time: 11/22/2020 5:41 AM Age: 80 years old Clinical indication: Patient HX: Left upper arm and elbow pain, no trauma TECHNIQUE: Imaging protocol: CT of the Left upper extremity without contrast was performed. Exam focused on the upper arm. Radiation optimization: All CT scans at this facility use at least one of these dose optimization techniques: automated exposure control; mA and/or kV adjustment per patient size (includes targeted exams where dose is matched to clinical indication); or iterative reconstruction. COMPARISON: No relevant prior studies available. FINDINGS: Bones/joints: Left shoulder osteoarthritis. The left elbow is not entirely imaged, lying partially outside the imaging volume. No obvious distal humeral fracture noted of the visualized portions of the distal humerus. No obvious radial or ulnar fracture noted of the visualized portions of these bones Soft tissues: Normal. IMPRESSION: 1. Left shoulder osteoarthritis. 2. The left elbow is not entirely imaged, lying partially outside the imaging volume. Dictated and Authenticated by: Oskar Marie MD. Ordering:CANELO Fabian MD
[2020-11-22 06:40] LABS: ESR 89 mm/hr (1-20)
--- NOTE | 2020-11-22 07:03 | DI.VRAD_ITS ---
PROCEDURE INFORMATION: Exam: XR Left Elbow Exam date and time: 11/22/2020 6:48 AM Age: 80 years old Clinical indication: Left; Patient HX: Pain in elbow, unable to fully extend and rotate arm, no known trauma TECHNIQUE: Imaging protocol: XR Left elbow. Views: 3 or more views. COMPARISON: CT UPPER EXTREMITY LT WO 11/22/2020 6:06 AM FINDINGS: Bones/joints: Lateral epicondylar fracture suspected. Small densities adjacent to the truncated epicondyle may reflect fracture fragments, as well as a on lateral view and anteriorly displaced fragment appears to be present. . Large joint effusion . Soft tissues: Normal. IMPRESSION: 1. Lateral epicondylar fracture suspected. Small densities adjacent to the truncated epicondyle may reflect fracture fragments, as well as a on lateral view and anteriorly displaced fragment appears to be present. . 2. Large joint effusion . Dictated and Authenticated by: Oskar Marie MD. Ordering:CANELO Fabian MD
--- NOTE | 2020-11-22 07:33 | NUR.NOTE ---
faxed to [facility] Nursing Note:
[2020-11-22 08:01] VITALS: BP 145/69; PULSE 82; RESP 16; TEMP 36.2; O2SAT 98
== END 2020-11-22 07:55 | disposition home or self-care (01) ==
PROVIDERS: Emergency Provider Emergency Medicine; PCP Emergency Medicine
DX: S42.432A Displaced fracture (avulsion) of lateral epicondyle of left humerus, initial encounter for closed fracture (principal); M25.512 Pain in left shoulder; X58.XXXA Exposure to other specified factors, initial encounter; E11.9 Type 2 diabetes mellitus without complications; Z79.4 Long term (current) use of insulin; I10 Essential (primary) hypertension
CPT/HCPCS: 24560; 36415; 80053; 85652; 99281; 73080; 73200; 85025; 85610; 85730; 86140; J7512

== ENCOUNTER 2020-11-30 13:16 | Emergency (ER) | payer OTHER, SELFPAY ==
[2020-11-30] VITALS (16 sets, daily range): BP systolic 106–118; BP diastolic 52–71; PULSE 61–91; RESP 20; TEMP 36.5–36.6; O2SAT 97–99
--- NOTE | 2020-11-30 13:38 | ED.GENADUL_ITS ---
Discharge Plan Disposition Patient Disposition: HOME Condition: Stable Discharge Details Clinical Impression: Cellulitis of hand, left Primary Care Provider: Ricardo Luis ED Provider: Shivani Ware Home Meds and New Rx's Prescriptions: New clindamycin HCl 300 mg capsule 300 mg PO BID 10 Days Qty: 20 RF: 0 No Action ipratropium-albuterol 0.5 mg-3 mg(2.5 mg base)/3 mL solution for nebulization 3 ml UPD Q6H PRN PRNRF: 0 potassium chloride [Klor-Con M10] 10 mEq tablet,ER particles/crystals 10 meq PO DAILY RF: 0 prednisone 20 mg tablet 10 - 40 mg PO DAILY Qty: 16 RF: 0 multivitamin [Daily Multiple] 1 EACH tablet 1 ea PO DAILY RF: 0 (DME) blood-glucose meter [[employer] Ultra2 Meter] 1 EACH kit 1 ea Miscellaneous DAILY Qty: 1 RF: 0 omeprazole 20 MG capsule,delayed release(DR/EC) 20 mg PO DAILY RF: 0 (DME) shenzhoufuuch Ultra Test strip 1 ea Miscellaneous DAILY Qty: 90 RF: 3 (DME) lancets [shenzhoufuuch UltraSoft Lancets] misc 1 ea Miscellaneous DAILY Qty: 90 RF: 4 warfarin [Coumadin] 5 mg tablet 5 mg PO DAILY Qty: 180 RF: 6 amlodipine 5 mg tablet 5 mg PO DAILY Qty: 90 RF: 4 metoprolol tartrate 100 mg tablet 50 mg PO BID Qty: 60 RF: 8 furosemide 20 mg tablet 60 mg PO BID Qty: 180 RF: 6 tamsulosin 0.4 mg capsule 0.4 mg PO HS Qty: 90 RF: 3 glipizide 5 mg tablet 10 mg PO DAILY Qty: 180 RF: 3 pravastatin 40 mg tablet 40 mg PO QPM Qty: 90 RF: 3 acetaminophen [Tylenol] 325 mg Tablet 650 mg PO Q4H PRN PRNQty: 0 RF: 0 docusate sodium [Colace] 100 mg Capsule 100 mg PO TID PRN PRNQty: 0 RF: 0 nystatin 100,000 unit/gram Powder 0 g topical BID Qty: 0 RF: 0 insulin aspart U-100 [Novolog Flexpen U-100 Insulin] 100 unit/mL Insulin Pen 0 units subcut 0800,1200,1700 Qty: 0 RF: 0 oxycodone 5 mg tablet 5 mg PO TID PRNQty: 12 RF: 0 Discharge Instructions Instructions: Cellulitis (ED) Additional Instructions: Wear sling for comfort. Keep your follow-up appointment with orthopedics as previously scheduled. Take antibiotic twice a day for the next 10 days as prescribed. Please watch the redness on your hand over the next 2 to 3 days. If the redness spreads or gets any worse please return to the ER. Please return to the ER if you start having a fever, chills, or feeling sick at all. Please take Tylenol with food every 4-6 hours as needed for pain and swelling. The CT today shows no evidence of elbow fracture, however, keep the appointment with Ortho as previously scheduled. Referrals: Ricardo Luis DO [Primary Care Provider] - Discharge Data Discharge Date/Time-TO BE ENTERED AT DEPARTURE: 11/30/20 16:30 Medical Decision Making 80-year-old male presents to the ED with chief complaint of left hand redness and swelling which he has noted increase in the last 2 to 3 days. He was placed in a posterior long-arm splint here in the ER on November 22, 2020 for possible elbow fracture. He is due to follow-up with orthopedics in approximately 5 days. He was concerned that the splint was on too tight so he removed it prior to arrival. He has notable well-demarcated erythema noted to the dorsum of his left hand. Notable swelling and warmth. He has 2 small puncture wounds to the base of his left thumb which are scabbed over. Patient states that he may have been cut by a knife that fell off a tray a couple weeks ago. He also has some ecchymosis noted around his left antecubital space presumably from the Tyrese wrap. He has decreased range of motion decreased flexion and extension noted to his left hand. He also has decreased flexion and extension of his left wrist. Radial pulses are intact. He denies any chest chills or fever nor any other complaints at this time. He has a past medical history of atrial fibrillation, CHF, diabetes type 2, hypertension, GERD. Workup ordered including, CBC, CMP, Lactate, Blood cultures x [address] UPPER EXTREMITY LT WO from 11/22/2020 FINDINGS: This is a less than optimal study. It was apparently difficult to fit this patient into the machine bore properly. Visualized lower half of the humerus appears intact. There is no obvious fracture at the level of the epicondyles. No osteochondral defects. There is no obvious fracture of the radial head and capitellum nor fracture of the olecranon and trochlea nor of the coronoid process. No loose intra-articular body seen. There is subcutaneous edema around the elbow, more pose there early than anteriorly. No distinct fluid collection. IMPRESSION: Less than optimal study but no obvious fractures identified. Soft tissue edema. No drainable fluid collection evident Patient received 1 gm Rocephin IVPB here in department and Clindamycin 300mg PO. Discussed home care and strict return instructions. Instructed to wear sling instead of posterior long arm splint for elbow pain if needed. Instructed to return in 24-48 hours if worsening erythema, swelling, fever, chills or feeling sick at all. No leukocytosis, lactate minimally elevated at 1.8, CMP within normal limits, patient afebrile. Rx given for Clindamycin 300 mg PO bid x 10 days. . This text was generated using [employer] system, please disregard any oddities of phrase or misspellings. HPI General Mode of arrival: ambulatory . Date/Time Provider Initiated Documentation: 11/30/20 13:16 . Limitations to Documentation: no limitations . Information obtained by: patient . HPI Narrative: 80-year-old male presents to the ED with chief complaint of left hand redness and swelling which he has noted increase in the last 2 to 3 days. He was placed in a posterior long-arm splint here in the ER on November 22, 2020 for possible elbow fracture. He is due to follow-up with orthopedics in approximately 5 days. He was concerned that the splint was on too tight so he removed it prior to arrival. He has notable well- demarcated erythema noted to the dorsum of his left hand. Notable swelling and warmth. He has 2 small puncture wounds to the base of his left thumb which are scabbed over. Patient states that he may have been cut by a knife that fell off a tray a couple weeks ago. He also has some ecchymosis noted around his left antecubital space presumably from the Tyrese wrap. He has decreased range of motion decreased flexion and extension noted to his left hand. He also has decreased flexion and extension of his left wrist. Radial pulses are intact. He denies any chest chills or fever nor any other complaints at this time. He has a past medical history of atrial fibrillation, CHF, diabetes type 2, hypertension, GERD. Related Data Home Medications Medication Instructions Recorded Confirmed multivitamin [Daily Multiple] 1 ea PO DAILY 12/11/16 11/30/20 blood-glucose meter [OneTouch #1 kit 02/12/17 11/30/20 Ultra2 Meter] omeprazole 20 mg PO DAILY cap 04/15/18 11/30/20 blood sugar diagnostic #90 strip 11/04/18 11/30/20 lancets #90 ea 11/06/18 11/30/20 acetaminophen [Tylenol] 650 mg PO Q4H PRN PRN #0 tab 04/20/19 11/30/20 docusate sodium [Colace] 100 mg PO TID PRN PRN #0 cap 04/20/19 11/30/20 insulin aspart U-100 [Novolog 0 units SUBCUT 0800,1200,1700 #0 ml 04/20/19 11/30/20 Flexpen U-100 Insulin] nystatin 0 g TOPICAL BID #0 g 04/20/19 11/30/20 ipratropium 0.5 mg-albuterol 3 mg 3 ml UPD Q6H PRN PRN ml 06/23/19 11/30/20 (2.5 mg base)/3 mL nebulization soln potassium chloride 10 mEq 10 meq PO DAILY tabcr 06/23/19 11/30/20 tablet,extended release(part/cryst) warfarin 5 mg tablet 5 mg PO DAILY #180 tab 12/22/19 11/30/20 amlodipine 5 mg tablet 5 mg PO DAILY #90 tab-cap 01/18/20 11/30/20 prednisone 20 mg tablet 10 - 40 mg PO DAILY #16 tab 03/25/20 11/30/20 metoprolol tartrate 100 mg tablet 50 mg PO BID #60 tab 04/07/20 11/30/20 furosemide 20 mg tablet 60 mg PO BID #180 tab 06/08/20 11/30/20 glipizide 5 mg tablet 10 mg PO DAILY #180 tab 09/09/20 11/30/20 pravastatin 40 mg tablet 40 mg PO QPM #90 tab 09/09/20 11/30/20 tamsulosin 0.4 mg capsule 0.4 mg PO HS #90 cap 09/09/20 11/30/20 oxycodone 5 mg PO TID PRN #12 tab 11/22/20 11/30/20 clindamycin HCl 300 mg PO BID 10 Days #20 cap 11/30/20 Previous Rx's Medication Instructions Recorded blood sugar diagnostic #90 strip 11/04/18 lancets #90 ea 11/06/18 acetaminophen [Tylenol] 650 mg PO Q4H PRN PRN #0 tab 04/20/19 docusate sodium [Colace] 100 mg PO TID PRN PRN #0 cap 04/20/19 insulin aspart U-100 [Novolog 0 units SUBCUT 0800,1200,1700 #0 ml 04/20/19 Flexpen U-100 Insulin] nystatin 0 g TOPICAL BID #0 g 04/20/19 warfarin 5 mg tablet 5 mg PO DAILY #180 tab 12/22/19 amlodipine 5 mg tablet 5 mg PO DAILY #90 tab-cap 01/18/20 prednisone 20 mg tablet 10 - 40 mg PO DAILY #16 tab 03/25/20 metoprolol tartrate 100 mg tablet 50 mg PO BID #60 tab 04/07/20 furosemide 20 mg tablet 60 mg PO BID #180 tab 06/08/20 glipizide 5 mg tablet 10 mg PO DAILY #180 tab 09/09/20 pravastatin 40 mg tablet 40 mg PO QPM #90 tab 09/09/20 tamsulosin 0.4 mg capsule 0.4 mg PO HS #90 cap 09/09/20 oxycodone 5 mg PO TID PRN #12 tab 11/22/20 clindamycin HCl 300 mg PO BID 10 Days #20 cap 11/30/20 Allergies Allergy/AdvReac Type Severity Reaction Status Date / Time No Known Allergies Allergy Verified 11/30/20 13:38 General Stated Complaint: Cellulitis GISSEL: 3 Review of Systems All systems reviewed & are unremarkable except as noted in HPI and below Constitutional Constitutional: Denies chills, Denies fatigue, Denies fever(s) and Denies frequent falls Musculoskeletal Musculoskeletal: Reports as per HPI, Reports arthralgias, Reports joint swelling (Left hand) and Reports limited range of motion Neurologic Neurologic: Denies frequent falls Endocrine Endocrine: Denies fatigue PFSH Medical History (Updated 11/30/20 @ 15:53 by Shivani Ware) Acute renal insufficiency Atrial fibrillation Bladder stone (02/14/16) BPH (benign prostatic hyperplasia) Carpal tunnel syndrome Cellulitis of foot (10/17/06) RIGHT CHF (congestive heart failure) Chronic anticoagulation Constipation Diabetes mellitus type 2 in obese Essential hypertension, benign Generalized osteoarthrosis GERD (gastroesophageal reflux disease) Hiatal hernia Hyperlipidemia Nephrolithiasis Obesity (02/11/13) Obesity, Class III, BMI 40-49.9 (morbid obesity) LUCAS on CPAP Pneumonia Polyp of colon Rosacea Sexual function problem Surgical History Cholecystectomy (~1985) Colonoscopy - MAC (~2002) Replacement of total knee joint B/L Tonsillectomy and adenoidectomy Family History Mother Diabetes Heart disease Father Neoplasm STOMACH Brother Neoplasm Brother No problems noted. Daughter No problems noted. Social History Smoking/Tobacco Use Status: Never Smoking risk assessment performed?: Yes Alcohol Intake: never Drug use: Never Substance use type: does not use Household members: spouse Pets and animals: No What type of physical activity do you participate in: none Special amor needs: No Do you feel safe at home: Yes Do you feel safe in your relationship?: Yes Exam Narrative Exam Narrative: Constitutional: Alert and oriented x3. Appears stated age. Obese body habitus. Head: Normocephalic, no trauma. Eyes: Pupils PERRLA, Red reflex noted, EOM's intact. Eyelids symmetrical without lesions, discharge, or swelling. ENT: Bilateral TM's WNL, External ear normal to inspection, no mastoid TTP, swelling, or erythema, Nasal turbinates WNL, no nasal discharge. Normal dentition, Posterior pharynx WNL, no exudate. Chest: RRR, Normal S1, S2, distal pulses intact. Resp: Lungs clear to auscultation bilaterally, no wheezes, rales, or rhonchi. Musculoskeletal: Swelling, warmth, redness noted to the dorsum of the left hand. He does have some ecchymosis apparently from the Tyrese wrap noted to his left antecubital space. Radial pulses intact. Range of motion is decreased to the flexion extension of his wrist and hand. Radial pulses intact. Skin: Well demarcated and marked area of erythema to the dorsum of his left hand. Ecchymosis noted to his left antecubital space. Capillary refill less than 2 sec. Neurologic: Cranial nerves II-XII intact. Alert and oriented x 3. DTR's intact. Hematologic/Lymphatic: No ecchymosis, no lymphadenopathy. Extrem Left upper extremity: hand Details: warmth and swelling Elbow/forearm/wrist images: 1. Ecchymosis Hand/finger images: 1. Erythema, warmth, swelling 2. Healing puncture wound with a scab 3. Healing puncture wound with a scab Course Vital Signs Vital signs: Vital Signs Temperature 36.6 C 11/30/20 13:23 Pulse 91 H 11/30/20 13:23 Respiratory Rate 20 11/30/20 13:23 Blood Pressure 114/71 11/30/20 13:23 Pulse Oximetry 98 11/30/20 13:23 Temperature 36.6 C 11/30/20 13:23 Temperature Source Temporal Artery Scan 11/30/20 13:23 Pulse 91 H 11/30/20 13:23 Respiratory Rate 20 11/30/20 13:23 Respiratory Effort 11/30/20 13:28 Blood Pressure 114/71 11/30/20 13:23 Blood Pressure Position Supine 11/30/20 13:23 Pulse Oximetry 98 11/30/20 13:23 Oxygen Delivery Method Room Air 11/30/20 13:23 Oxygen Flow Rate 0 11/30/20 13:23 Pain Level 0 11/30/20 13:23
[2020-11-30 14:05] LABS: Lactate 1.8 mmol/L (0.6-1.4)
[2020-11-30 14:10] LABS: Abs Immature Grans 0.02 10^3/uL (0.0-0.06); Absolute Basophil Count 0.02 10^3/uL (0.0-0.2); Absolute Eosinophil Count 0.19 10^3/uL (0.0-0.7); Absolute Lymphocyte Count 1.05 10^3/uL (1.2-3.4); Absolute Monocyte Count 0.51 10^3/uL (0.1-0.8); Absolute Neutrophil Count 4.62 10^3/uL (1.2-6.7); Basophils % 0.3; HCT 34.5 % (40.0-50.0); HGB 10.7 g/dL (13.5-17.5); Immature Grans % 0.3; Lymphocytes % 16.4; MCH 26.4 pg (27.0-33.0); MPV 8.8 fL (8.0-11.0); Nucleated RBC 0 %; Platelet Count 238 10^3/uL (130-400); RBC 4.06 10^6/uL (4.36-5.78); RDW 14.8 % (11.8-14.1); RDW-SD 45.8 fL; WBC 6.41 10^3/uL (4.4-10.8)
[2020-11-30] MEDS: cefTRIAXone 1 GM/50 ML BAG IVPB (14:38)
[2020-11-30 14:45] LABS: ALT 41 U/L (16-63); AST 21 U/L (15-37); Albumin 3.7 g/dL (3.4-5.0); Alkaline Phosphatase 86 U/L (46-116); Anion Gap 9.3 mmol/L (3-11); BUN 13 mg/dL (7-18); Bilirubin, Total 0.4 mg/dL (0.2-1.0); CO2 24.7 mmol/L (21.0-32.0); CREATININE 1.06 mg/dL (0.70-1.30); Chloride 104 mmol/L (98-107); Glucose 154 mg/dL (74-106); Magnesium 1.8 mg/dL (1.8-2.4); Sodium 138 mmol/L (136-145); Total Protein 7.3 g/dL (6.4-8.2)
[2020-11-30 14:46] LABS: INR 3.1 (0.9-1.1); Prothrombin Time 29.9 sec (9.3-11.0)
--- NOTE | 2020-11-30 15:30 | DI.CT_ITS ---
EXAM: CT UPPER EXTREMITY LT WO CLINICAL HISTORY: Eval elbow fracture, Left hand cellulitis TECHNIQUE: Imaging Protocol: Axial computed tomography images with coronal and sagittal reformatted images were created and reviewed. CONTRAST MATERIAL: Intravenous: Omnipaque 350 Contrast volume:structured data in ml Contrast route:I V - Oral: yes / no COMPARISON: CR,XR XR ELBOW LT COMPLETE from 11/22/[address] UPPER EXTREMITY LT WO from 11/22/[address] UPPER EXTREMITY LT WO from 11/22/2020 FINDINGS: This is a less than optimal study. It was apparently difficult to fit this patient into the machine bore properly. Visualized lower half of the humerus appears intact. There is no obvious fracture at the level of th e epicondyles. No osteochondral defects. There is no obvious fracture of the radial head and capite llum nor fracture of the olecranon and trochlea nor of the coronoid process. No loose intra-articula r body seen. There is subcutaneous edema around the elbow, more pose there early than anteriorly. No distinct flu id collection. IMPRESSION: Less than optimal study but no obvious fractures identified. Soft tissue edema. No drainable fluid collection evident RADIATION DOSE DELIVERED: 189.3mGy.cm Total DLP DATA REPOSITORY: All CT scans at this facility are submitted to the National Radiology Data Registry (NRDR) Dose Index Registry (DIR) with the [employer] ([employer]). RADIATION OPTIMIZATION: All CT scans at this facility use at least one of these dose optimization te chniques: automated exposure control; mA and/or kV adjustment per patient size (includes targeted exa ms where dose is matched to clinical indication); or iterative reconstruction.
[2020-11-30] MEDS: Clindamycin 300 MG CAP PO (16:06)
== END 2020-11-30 16:30 | disposition home or self-care (01) ==
PROVIDERS: Emergency Provider Registered Nurse Emergency; PCP Emergency Medicine
DX: L03.114 Cellulitis of left upper limb (principal); I10 Essential (primary) hypertension; E11.9 Type 2 diabetes mellitus without complications; Z79.84 Long term (current) use of oral hypoglycemic drugs
CPT/HCPCS: 36415; 80053; 87040; 96365; 99284; 73200; 83605; 83735; 85025; 85610; J0696

== ENCOUNTER → 2020-12-05 14:42 | Outpatient (BNVA) | payer OTHER, SELFPAY | PROVIDERS: PCP Emergency Medicine; Referring Provider Emergency Medicine; Visit Provider Student in an Organized Health Care Education/Training Program | DX: L03.114 Cellulitis of left upper limb (principal); M25.522 Pain in left elbow; E11.9 Type 2 diabetes mellitus without complications; I11.0 Hypertensive heart disease with heart failure; I50.9 Heart failure, unspecified | CPT/HCPCS: 99203; 99214 ==

== ENCOUNTER 2020-12-12 05:19 | Outpatient (CLI) | payer OTHER, SELFPAY ==
[2020-12-12 11:02] LABS: Prothrombin Time 47.8 sec (9.3-11.0)
== END 2020-12-12 05:39 ==
PROVIDERS: PCP Emergency Medicine; Visit Provider Emergency Medicine
DX: I48.91 Unspecified atrial fibrillation (principal); Z79.01 Long term (current) use of anticoagulants
CPT/HCPCS: 36415; 85610

== ENCOUNTER 2020-12-23 01:19 | Outpatient (CLI) | payer OTHER, SELFPAY ==
[2020-12-23 15:50] LABS: INR 2.9 (0.9-1.1); Prothrombin Time 28.7 sec (9.3-11.0)
== END 2020-12-23 01:20 | disposition home or self-care (01) ==
LOC: LBO 01:19
PROVIDERS: PCP Emergency Medicine; Visit Provider Emergency Medicine
DX: I48.91 Unspecified atrial fibrillation (principal); Z79.01 Long term (current) use of anticoagulants
CPT/HCPCS: 36415; 85610

== ENCOUNTER 2021-01-12 03:29 | Outpatient (CLI) | payer OTHER, SELFPAY ==
[2021-01-12 15:30] LABS: INR 2.2 (0.9-1.1); Prothrombin Time 21.8 sec (9.3-11.0)
== END 2021-01-12 03:30 | disposition home or self-care (01) ==
LOC: LBO 03:29
PROVIDERS: PCP Emergency Medicine; Visit Provider Emergency Medicine
DX: I48.91 Unspecified atrial fibrillation (principal); Z79.01 Long term (current) use of anticoagulants
CPT/HCPCS: 36415; 85610

== ENCOUNTER 2021-03-15 03:37 | Outpatient (CLI) | payer OTHER, SELFPAY ==
[2021-03-15 10:55] LABS: INR 2.6 (0.9-1.1); Prothrombin Time 25.3 sec (9.3-11.0)
== END 2021-03-15 03:38 | disposition home or self-care (01) ==
LOC: LBO 03:37
PROVIDERS: PCP Emergency Medicine; Visit Provider Emergency Medicine
DX: I48.91 Unspecified atrial fibrillation (principal); Z79.01 Long term (current) use of anticoagulants
CPT/HCPCS: 36415; 85610

== ENCOUNTER 2021-05-30 03:57 | Outpatient (CLI) | payer OTHER, SELFPAY ==
[2021-05-30 07:52] LABS: Prothrombin Time 43.6 sec (9.3-11.0)
[2021-05-30 08:09] LABS: INR 4.5 (0.9-1.1)
== END 2021-05-30 03:58 | disposition home or self-care (01) ==
LOC: LBO 03:58
PROVIDERS: PCP Emergency Medicine; Visit Provider Emergency Medicine
DX: I48.91 Unspecified atrial fibrillation (principal); Z79.01 Long term (current) use of anticoagulants
CPT/HCPCS: 36415; 85610

== ENCOUNTER 2021-06-01 03:25 | Outpatient (CLI) | payer OTHER, SELFPAY ==
[2021-06-01 12:51] LABS: INR 2.8 (0.9-1.1); Prothrombin Time 27.7 sec (9.3-11.0)
== END 2021-06-01 03:26 | disposition home or self-care (01) ==
PROVIDERS: PCP Emergency Medicine; Visit Provider Emergency Medicine
DX: I48.91 Unspecified atrial fibrillation (principal); Z79.01 Long term (current) use of anticoagulants
CPT/HCPCS: 36415; 85610

== ENCOUNTER 2021-06-08 21:07 | Outpatient (REF) | payer OTHER, SELFPAY ==
[2021-06-08 14:17] LABS: Anion Gap 9.8 mmol/L (3-11); BUN 20 mg/dL (7-18); CO2 27.2 mmol/L (21.0-32.0); CREATININE 2.3 mg/dL (0.70-1.30); Calcium 9.2 mg/dL (8.5-10.1); Chloride 106 mmol/L (98-107); Estimated GFR 27.43 (mL/min/1.73m2); Glucose 142 mg/dL (74-106); NT-proBNP 2466 pg/mL (<300); Potassium 3.2 mmol/L (3.5-5.1); Sodium 143 mmol/L (136-145)
[2021-06-08 14:19] LABS: Hemoglobin A1C 8.5 % (<5.7)
== END 2021-06-08 21:08 | disposition home or self-care (01) ==
LOC: LBN 21:07
PROVIDERS: PCP Emergency Medicine; Visit Provider Emergency Medicine
DX: I10 Essential (primary) hypertension (principal); E11.9 Type 2 diabetes mellitus without complications; I50.9 Heart failure, unspecified
CPT/HCPCS: 80048; 83036; 83880

== ENCOUNTER 2021-10-27 22:48 | Inpatient (IN) | payer OTHER, SELFPAY ==
[2021-10-27] VITALS (11 sets, daily range): BP systolic 88–95; BP diastolic 48–58; PULSE 43–80; RESP 18–31; TEMP 37; O2SAT 91–100
--- NOTE | 2021-10-27 22:30 | RT.EKG_ITS ---
APPROVED REPORT Exam: Resting ECG Reason for Exam: shortness of breath Patient Location: E HR:49 bpm ECG Measurements Heart Rate 49 AXIS AR [id number] P [id number] QRSd 109 QRS 42 QT 528 T -34 QTc 477 Conclusion Atrial fibrillation...V-rate 40- 61, irreg A-activity Low voltage, precordial leads...precordial leads <1.0mV. Slow afib. No STEMI. I have reviewed and interpreted ECG and agree with software generated interpretation.
--- NOTE | 2021-10-27 22:45 | DI.RAD_ITS ---
Exam(s) XR PORTABLE CHEST AP EXAM: XR PORTABLE CHEST AP CLINICAL HISTORY: cough, sob, r/o acute disease TECHNIQUE: 2D digital imaging was performed of the chest. One image was obtained. An AP view was ob tained. COMPARISON: CR XR CHEST 2V PA LATERAL from 04/18/2019 FINDINGS: MEDIASTINUM: Normal. HEART: Stable cardiomegaly. PULMONARY VASCULATURE: Normal. LUNGS: There may be small infiltrates in the lung bases bilaterally. PLEURAL SPACE: No pleural effusion or pneumothorax. BONE:Within normal limits for the patient's age. OTHER FINDINGS:Normal. IMPRESSION: Question of small bilateral basilar infiltrates. DATA REPOSITORY: RADIATION DOSE DELIVERED:
[2021-10-27] MEDS: Albuterol/Ipratropium 3 ML UPD VIAL UPD (23:14)
[2021-10-27] MEDS: Albuterol 2.5 MG/3 ML INH SOLN VIAL 5 MG UPD (23:14)
[2021-10-27] MEDS: methylPREDNISolone SUCC 125 MG VIAL IVP (23:14)
--- NOTE | 2021-10-27 23:24 | W.ED.GENAD ---
Discharge Plan Disposition Patient Disposition: [facility] INPATIENT Condition: Poor Discharge Details Clinical Impression: Dyspnea, Wheezing Primary Care Provider: Ricardo Luis ED Provider: Yoni Garcia Home Meds and New Rx's Prescriptions: No Action multivitamin [Daily Multiple] 1 EACH tablet 1 ea PO DAILY RF: 0 (DME) blood-glucose meter [OneTouch Ultra2 Meter] 1 EACH kit 1 ea Miscellaneous DAILY Qty: 1 RF: 0 omeprazole 20 MG capsule,delayed release(DR/EC) 20 mg PO DAILY RF: 0 (DME) OneTouch Ultra Test strip 1 ea Miscellaneous DAILY Qty: 90 RF: 3 (DME) lancets [OneTouch UltraSoft Lancets] misc 1 ea Miscellaneous DAILY Qty: 90 RF: 4 furosemide 20 mg tablet 60 mg PO BID Qty: 540 RF: 3 amlodipine 5 mg tablet 5 mg PO DAILY Qty: 90 RF: 4 warfarin 5 mg tablet 5 mg PO DAILY Qty: 180 RF: 6 metoprolol tartrate 100 mg tablet 50 mg PO BID Qty: 60 RF: 8 potassium chloride [Klor-Con M10] 10 mEq tablet,ER particles/crystals 10 meq PO DAILY Qty: 90 RF: 3 pravastatin 40 mg tablet 40 mg PO QPM Qty: 90 RF: 3 glipizide 5 mg tablet 10 mg PO DAILY Qty: 180 RF: 3 tamsulosin 0.4 mg capsule 0.4 mg PO HS Qty: 90 RF: 3 acetaminophen [Tylenol] 325 mg Tablet 650 mg PO Q4H PRN PRNQty: 0 RF: 0 sodium bicarbonate 325 mg Tablet 325 mg PO BID PRNRF: 0 docusate sodium [Colace] 100 mg capsule 100 mg PO DAILY RF: 0 Medical Decision Making Patient presenting with shortness of breath, cough, wheezing with no prior history of COPD or asthma. He is vaccinated against Covid but not flu and did not receive a COVID booster. Has responded to nebulized treatments by EMS. Repeat nebulizer treatment here and dose with steroids. EKG with slow A. fib no acute changes. Portable chest x-ray and laboratory studies ordered. Likely viral URI with reactive airway. Will reassess after labs and x-ray return but likely will need admission given low pulse oximetry at home. Patient definitely feels better after nebulizer treatment. Blood pressure is a little soft. Laboratory studies with normal white count. Hemoglobin a little lower than baseline but has history of anemia. Kidney function seems to be baseline though elevated. Troponin negative. BNP elevated with history of same. Tonight higher than usual. Chest x-ray being read by radiology preliminarily has bilateral patchy infiltrate. Testing for Covid, flu, RSV all negative. I still think this is likely viral with reactive airway disease. Consider CHF. Cover for bacterial pneumonia given radiology read. Discussed with hospitalist. Will continue treatment with nebulizer, steroids, antibiotics. Hold off on fluids or diuresis at this point. Admit to telemetry with second troponin at 3 AM. Discussed with patient and who are in agreement to admission. Medical Records Medical records reviewed: Yes I reviewed the patient's medical records. Lab Data Lab results reviewed: Yes I reviewed the patient's lab results. ECG Data Attestation: I personally reviewed and interpreted this ECG (s) as follows: Interpretation: no acute changes HPI General Mode of arrival: EMS. Date/Time Provider Initiated Documentation: 10/27/21 23:16. Limitations to Documentation: no limitations. Information obtained by: patient, RN notes reviewed and old records reviewed. HPI Narrative: Patient presents to ED by ambulance with shortness of breath. Patient reports a couple day history of cough, wheezing, shortness of breath. He is bringing up clear sputum. He does not have history of COPD or asthma. He is without fever, other URI symptoms, chest pain, abdominal pain, vomiting. He has had his COVID shot but not the booster. He did not receive flu vaccine. By report his saturations were in the mid 80s when EMS arrived at his house. He has responded to nebulized treatments and nasal cannula oxygen. He arrives here in no distress but still wheezing. Related Data Home Medications Medication Instructions Recorded Confirmed multivitamin [Daily Multiple] 1 ea PO DAILY 12/11/16 10/27/21 blood-glucose meter [OneTouch #1 kit 02/12/17 10/20/21 Ultra2 Meter] omeprazole 20 mg PO DAILY cap 04/15/18 10/27/21 blood sugar diagnostic #90 strip 11/04/18 10/20/21 lancets #90 ea 11/06/18 10/20/21 acetaminophen [Tylenol] 650 mg PO Q4H PRN PRN #0 tab 04/20/19 10/27/21 furosemide 20 mg tablet 60 mg PO BID #540 tab 01/06/21 10/27/21 amlodipine 5 mg tablet 5 mg PO DAILY #90 tab-cap 02/24/21 10/27/21 warfarin 5 mg tablet 5 mg PO DAILY #180 tab 03/15/21 10/20/21 metoprolol tartrate 100 mg tablet 50 mg PO BID #60 tab 03/24/21 10/27/21 potassium chloride 10 mEq 10 meq PO DAILY #90 tab 06/08/21 10/27/21 tablet,extended release(part/cryst) pravastatin 40 mg tablet 40 mg PO QPM #90 tab 08/14/21 10/27/21 glipizide 5 mg tablet 10 mg PO DAILY #180 tab 08/29/21 10/27/21 tamsulosin 0.4 mg capsule 0.4 mg PO HS #90 cap 08/29/21 10/27/21 docusate sodium [Colace] 100 mg PO DAILY 10/27/21 10/27/21 sodium bicarbonate 325 mg PO BID PRN 10/27/21 10/27/21 Previous Rx's Medication Instructions Recorded blood sugar diagnostic #90 strip 11/04/18 lancets #90 ea 11/06/18 acetaminophen [Tylenol] 650 mg PO Q4H PRN PRN #0 tab 04/20/19 furosemide 20 mg tablet 60 mg PO BID #540 tab 01/06/21 amlodipine 5 mg tablet 5 mg PO DAILY #90 tab-cap 02/24/21 warfarin 5 mg tablet 5 mg PO DAILY #180 tab 03/15/21 metoprolol tartrate 100 mg tablet 50 mg PO BID #60 tab 03/24/21 potassium chloride 10 mEq 10 meq PO DAILY #90 tab 06/08/21 tablet,extended release(part/cryst) pravastatin 40 mg tablet 40 mg PO QPM #90 tab 08/14/21 glipizide 5 mg tablet 10 mg PO DAILY #180 tab 08/29/21 tamsulosin 0.4 mg capsule 0.4 mg PO HS #90 cap 08/29/21 Allergies Allergy/AdvReac Type Severity Reaction Status Date / Time No Known Allergies Allergy Verified 10/20/21 16:56 General Stated Complaint: SOB GISSEL: 2 Review of Systems Narrative: 08/31 Review of Systems completed and is negative except as stated above in HPI (Systems reviewed: Const, Eyes, ENT, Resp, CV, GI, , MSK, Skin, Neuro) PFSH All Active Problems (Updated 10/28/21 @ 01:58 by Yoni Garcia MD) Dyspnea (Acute) Wheezing (Acute) Multisystem organ failure (Acute) Hives (Acute) Cellulitis of foot (Acute 10/17/06) Obesity (Acute 02/11/13) Status post cholecystectomy (Acute) Status post cystoscopy (Acute 02/15/16) Status post tonsillectomy and adenoidectomy (Acute) Status post total bilateral knee replacement (Acute) Obstructive nephropathy (Acute) Moderate pulmonary arterial systolic hypertension (Chronic) Metabolic acidosis with respiratory acidosis (Acute) Complicated UTI (urinary tract infection) (Acute) Sepsis (Acute) Obstructive uropathy (Acute) Discharge planning issues (Acute) Fever (Acute) Chronic anticoagulation (Chronic) Bladder stone (Chronic 02/14/16) Carpal tunnel syndrome (Chronic) Generalized osteoarthrosis (Chronic) Hiatal hernia (Chronic) Obesity (Chronic 02/11/13) Polyp of colon (Chronic) Rosacea (Chronic) Sexual function problem (Chronic) Constipation (Chronic) DVT prophylaxis (Acute) CHF (congestive heart failure) (Chronic) Obesity, Class III, 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) UTI (urinary tract infection) (Acute) Acute renal insufficiency (Acute) Medical History (Updated 10/28/21 @ 01:58 by Yoni Garcia MD) Atrial fibrillation BPH (benign prostatic hyperplasia) Diabetes mellitus type 2 in obese Essential hypertension, benign GERD (gastroesophageal reflux disease) Hyperlipidemia Nephrolithiasis Obesity hypoventilation syndrome LUCAS on CPAP Surgical History Cholecystectomy (~1985) Colonoscopy - MAC (~2002) Replacement of total knee joint B/L Tonsillectomy and adenoidectomy Family History Mother Diabetes Heart disease Father Neoplasm STOMACH Brother Neoplasm Brother No problems noted. Daughter No problems noted. Social History Smoking/Tobacco Use Status: Never Smoking risk assessment performed?: Yes Alcohol Intake: never Drug use: Never Substance use type: does not use Household members: spouse Pets and animals: No What type of physical activity do you participate in: none Special amor needs: No Do you feel safe at home: Yes Do you feel safe in your relationship?: Yes Exam Narrative Exam Narrative: Const: Morbidly obese male in NAD. HEENT: NC/AT. Normal facial exam. Eyes: Normal conjunctiva and sclera. Neck: Supple. Trachea midline. Lungs: Normal respiratory effort. Mild tachypnea. Diffuse wheezing and rhonchi throughout. Cor: Irregular and slow without murmur/gallop. Good radial pulses. GI: Soft. NT/ND. Neuro: A+O x 3. Normal speech, mentation, gait. Cranial nerves II - XII grossly intact. No gross motor or sensory deficit. Ext: No C/C. Some LE edema. No calf tenderness. Skin: Warm and dry without rash. Course Vital Signs Vital signs: Vital Signs Temperature 98.6 F 10/27/21 23:08 Pulse 46 L 10/27/21 23:08 Respiratory Rate 22 10/27/21 23:08 Blood Pressure 90/48 L 10/27/21 23:08 Pulse Oximetry 100 10/27/21 23:08 Temperature 98.6 F 10/27/21 23:08 Temperature Source Temporal Artery Scan 10/27/21 23:08 Pulse 46 L 10/27/21 23:08 Respiratory Rate 24 10/27/21 23:11 Respiratory Effort Labored 10/27/21 23:11 Respiratory Depth Deep 10/27/21 23:11 Respiratory Pattern Tachypnea 10/27/21 23:11 Blood Pressure 90/48 L 10/27/21 23:08 Blood Pressure Position Sitting 10/27/21 23:08 Pulse Oximetry 100 10/27/21 23:08 Oxygen Delivery Method Aerosol Mask 10/27/21 23:08 Lab/Test Results Lab/Test Results: Laboratory Tests Range/Units 10/27/21 22:53 COVID-19 Source Cancelled SARS-CoV-2 (PCR) Cancelled
[2021-10-27 23:39] LABS: Abs Immature Grans 0.03 10^3/uL (0.0-0.06); Absolute Basophil Count 0.02 10^3/uL (0.0-0.2); Absolute Eosinophil Count 0.31 10^3/uL (0.0-0.7); Absolute Lymphocyte Count 1.08 10^3/uL (1.2-3.4); Absolute Monocyte Count 0.68 10^3/uL (0.1-0.8); Absolute Neutrophil Count 3.78 10^3/uL (1.2-6.7); Basophils % 0.3; Eosinophils % 5.3; HCT 31.8 % (40.0-50.0); HGB 9.1 g/dL (13.5-17.5); Immature Grans % 0.5; Lymphocytes % 18.3; MCH 26.3 pg (27.0-33.0); MCHC 28.6 % (32.0-36.0); MCV 91.9 fL (80-95); MPV 9.3 fL (8.0-11.0); Monocytes % 11.5; Neutrophils % 64.1; Nucleated RBC 0 %; Platelet Count 157 10^3/uL (130-400); RBC 3.46 10^6/uL (4.36-5.78); RDW 16.9 % (11.8-14.1); RDW-SD 56.7 fL
[2021-10-27 23:55] LABS: ALT 11 U/L (16-63); AST 18 U/L (15-37); Alkaline Phosphatase 93 U/L (46-116); Anion Gap 5.6 mmol/L (3-11); BUN 23 mg/dL (7-18); Bilirubin, Total 0.9 mg/dL (0.2-1.0); CO2 30.4 mmol/L (21.0-32.0); CREATININE 2.5 mg/dL (0.70-1.30); Calcium 9.2 mg/dL (8.5-10.1); Chloride 106 mmol/L (98-107); Estimated GFR 24.85 (mL/min/1.73m2); Glucose 156 mg/dL (74-106); Magnesium 2.5 mg/dL (1.8-2.4); Potassium 4.1 mmol/L (3.5-5.1); Sodium 142 mmol/L (136-145); Total Protein 7.9 g/dL (6.4-8.2)
[2021-10-28] VITALS (36 sets, daily range): BP systolic 91–125; BP diastolic 55–77; PULSE 44–78; RESP 1–26; TEMP 36.3–37; O2SAT 2–97
[2021-10-28 00:02] LABS: Troponin I < 0.05 ng/mL (<0.06)
[2021-10-28 00:22] LABS: COVID-19 PCR Negative (Negative); Influenza A PCR Negative (Negative); Influenza B PCR Negative (Negative); RSV PCR Negative (Negative)
[2021-10-28 00:30] LABS: Prothrombin Time 46.9 sec (9.3-11.0)
[2021-10-28 00:34] LABS: INR 4.9 (0.9-1.1)
[2021-10-28 00:43] LABS: NT-proBNP 5337 pg/mL (<300)
--- NOTE | 2021-10-28 01:01 | DI.VRAD_ITS ---
PROCEDURE INFORMATION: Exam: XR Chest Exam date and time: 10/27/2021 10:54 PM Age: 81 years old Clinical indication: Other: Cough, SOB, R/O acute disease TECHNIQUE: Imaging protocol: XR of the chest. Views: 1 view. COMPARISON: CR XR CHEST 2V PA LATERAL 04/18/2019 10:28 AM FINDINGS: Tubes, catheters and devices: Monitoring wires present. Lungs: Patchy airspace opacity noted in both lungs, new from previous and greatest at the lung bases. Pleural spaces: Unremarkable. No pleural effusion. No pneumothorax. Heart/Mediastinum: Mild cardiomegaly noted, similar to previous. Bones/joints: Unremarkable. IMPRESSION: Multifocal infiltrates and/or edema. Dictated and Authenticated by: Rui Santos MD. Ordering:VIANCA Jacinto MD
[2021-10-28] MEDS: cefTRIAXone 1 GM/50 ML BAG IVPB (01:19)
[2021-10-28] MEDS: DOXYCYCLINE 100 MG in Normal Saline 100 ML IVPB (01:19)
[2021-10-28] MEDS: Albuterol 2.5 MG/3 ML INH SOLN VIAL UPD (02:46)
[2021-10-28 07:25] LABS: Anion Gap 10.3 mmol/L (3-11); BUN 27 mg/dL (7-18); CO2 24.7 mmol/L (21.0-32.0); CREATININE 2.5 mg/dL (0.70-1.30); Calcium 9.3 mg/dL (8.5-10.1); Chloride 105 mmol/L (98-107); Estimated GFR 24.85 (mL/min/1.73m2); Glucose 272 mg/dL (74-106); Potassium 4.1 mmol/L (3.5-5.1); Sodium 140 mmol/L (136-145)
[2021-10-28 07:27] LABS: Troponin I < 0.05 ng/mL (<0.06)
[2021-10-28 07:57] LABS: Procalcitonin < 0.1 ng/mL
--- NOTE | 2021-10-28 08:22 | HPE_ITS ---
Date of service: 10/28/21 Time of Service: 08:22 Assessment and Plan Assessment and plan (1) Acute on chronic heart failure with preserved ejection fraction: Status: Acute Assessment and plan: Give IV Lasix and diuresis until he is euvolemic at which point he should be started on an SGLT2 inhibitor for both his heart failure and his diabetes mellitus. We'll get an updated echocardiogram on Saturday morning. Last echocardiogram was from April 02, 2019 at which point he had preserved left ventricular systolic function with ejection fraction of 60-65%. He had severe biatrial enlargement and moderate mitral regurgitation and moderate pulmonary hypertension. Patient should be placed on a strict low- sodium diet in addition to his cardiac and carbohydrate friendly diet. If his renal function will allow he should be placed on Entresto or an MIS inhibitor or ARB. Ischemic heart disease should also be evaluated with an outpatient stress MPI after he has been adequately diuresed and is in stable euvolemic condition. Patient's case was discussed with Dr. Yoni Garcia, ER attending physician upon acceptance the patient for admission during the night. Patient's case was subsequently discussed at handoff with Dr. Mor Adames daytime hospitalist. (2) Chronic renal failure, stage 4 (severe): Status: Chronic Assessment and plan: As listed above patient should be placed on SGLT2 inh ibitor for both renal protection as well as treatment of CHF and diabetes mellitus. His diabetes mellitus should be optimized in addition to his CHF. (3) Acute bronchitis: Status: Acute Assessment and plan: We'll treat with aerosolized bronchodilators along with 5-day course of doxycycline and 5-day course of prednisone. Qualifiers: Bronchitis organism: unspecified organism Qualified Code(s): J20.9 - Acute bronchitis, unspecified (4) Diabetes mellitus type 2 in obese: Assessment and plan: Will monitor blood sugars before meals and at bedtime and check a glycohemoglobin A1c. Will provide NovoLog sliding scale insulin resistant level coverage for elevated blood sugars in addition to NovoLog for meal coverage at a ratio of 2:10. Was hospitalized we will hold his glipizide. Upon discharge she should be transition to an SGLT2 inhibitor such as empagliflozin 10 mg daily. (5) Atrial fibrillation: Assessment and plan: Patient is chronically anticoagulated with warfarin and currently his INR is supratherapeutic at 4.9. We'll continue to hold his warfarin for now until his INR drops below 3.0. At which point we can resume his warfarin at a reduced dose. Continue to monitor daily INR. Continue rate control with metoprolol 50 mg p.o. twice daily. Qualifiers: Atrial fibrillation type: longstanding persistent Qualified Code(s): I48.11 - Longstanding persistent atrial fibrillation History of Present Illness History of Present Illness Chief Complaint: dyspnea Narrative: 81-year-old white male non-smoker with type 2 diabetes mellitus, essential hypertension, LUCAS treated with CPAP, no formal diagnosis of congestive heart failure but takes diuretics regularly., Chronic atrial fibrillation rate control with metoprolol and chronically anticoagulated with warfarin who presented emergency department with dyspnea that began morning along with a cough that is been minimally productive of whitish mucus with occasional yellowish coloration. No associated fever chills rigors. Has had some chest pain with the coughing. He has chronic bilateral leg edema. He is usually taking Lasix 60 mg twice a day. He has chronic kidney disease with a baseline creatinine of around two. Work-up in the ER included CBC that showed no leukocytosis with white count 5900. He has a chronic anemia hemoglobin 9.1 g hematocrit 31%. CMP shows chronic renal failure with a BUN of 23 creatinine 2.5 normal LFTs normal troponin I level of less than 0.05. proBNP is elevated at 5300 whereas his last BMP in June 08, 2021 was 2400. Procalcitonin was added to his morning labs and is less than 0.1. Nasal swab was negative for SARS-CoV-2 as well as influenza type a and B and RSV. He has been vaccinated with COVID vaccine x2 but has not received his booster. Chest x-ray last night was read as showing multifocal infiltrates and/or edema and mild cardiomegaly similar to previous exams. ECG shows atrial fibrillation slow rate of 49 bpm with no acute ischemic ST or T wave changes. Treatment emergency department included DuoNeb treatments and Solu-Medrol. Tentative diagnosis I received from the ER physician that the patient probably had a viral pneumonitis and acute bronchospasm. However I believe the patient is acute on chronic heart failure and may have a superimposed acute bronchitis. Patient will be treated with oral doxycycline and oral prednisone and bronchodilators for his bronchitis but for his heart failure he'll be placed on IV Lasix. He normally takes 60 mg orally twice a day. I'll put him on 80 mg IV 3 times daily and monitor his urine output daily weights as well as his BMP. We'll continue to use his home CPAP unit whenever he sleeps. If he deteriorates from a respiratory standpoint he'll be placed on hospital provided BiPAP machine and transferred to intensive care unit if he worsens. Patient is a full code. Review of Systems All systems reviewed & are unremarkable except as noted in HPI and below PFSH All Active Problems (Updated 10/28/21 @ 08:47 by Robert Traore) Acute bronchitis (Acute) Chronic renal failure, stage 4 (severe) (Chronic) Acute on chronic heart failure with preserved ejection fraction (Acute) Dyspnea (Acute) Wheezing (Acute) Multisystem organ failure (Acute) Hives (Acute) Cellulitis of foot (Acute 10/17/06) Obesity (Acute 02/11/13) Status post cholecystectomy (Acute) Status post cystoscopy (Acute 02/15/16) Status post tonsillectomy and adenoidectomy (Acute) Status post total bilateral knee replacement (Acute) Obstructive nephropathy (Acute) Moderate pulmonary arterial systolic hypertension (Chronic) Metabolic acidosis with respiratory acidosis (Acute) Complicated UTI (urinary tract infection) (Acute) Sepsis (Acute) Obstructive uropathy (Acute) Discharge planning issues (Acute) Fever (Acute) Chronic anticoagulation (Chronic) Bladder stone (Chronic 02/14/16) Carpal tunnel syndrome (Chronic) Generalized osteoarthrosis (Chronic) Hiatal hernia (Chronic) Obesity (Chronic 02/11/13) Polyp of colon (Chronic) Rosacea (Chronic) Sexual function problem (Chronic) Constipation (Chronic) DVT prophylaxis (Acute) CHF (congestive heart failure) (Chronic) Obesity, Class III, 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 Daughter No problems noted. Social History Smoking/Tobacco Use Status: Never Smoking risk assessment performed?: Yes Alcohol Intake: never Drug use: Never Substance use type: does not use Household members: spouse Pets and animals: No What type of physical activity do you participate in: none Special amor needs: No Do you feel safe at home: Yes Do you feel safe in your relationship?: Yes Meds Allergies and Home Medications Allergies Allergy/AdvReac Type Severity Reaction Status Date / Time No Known Allergies Allergy Verified 10/20/21 16:56 Home Medications Medication Instructions Recorded Confirmed Type multivitamin [Daily Multiple] 1 ea PO DAILY 12/11/16 10/27/21 History blood-glucose meter [OneTouch #1 kit 02/12/17 10/20/21 History Ultra2 Meter] omeprazole 20 mg PO DAILY cap 04/15/18 10/27/21 History blood sugar diagnostic #90 strip 11/04/18 10/20/21 Rx lancets #90 ea 11/06/18 10/20/21 Rx acetaminophen [Tylenol] 650 mg PO Q4H PRN PRN #0 tab 04/20/19 10/27/21 Rx furosemide 20 mg tablet 60 mg PO BID #540 tab 01/06/21 10/27/21 Rx amlodipine 5 mg tablet 5 mg PO DAILY #90 tab-cap 02/24/21 10/27/21 Rx warfarin 5 mg tablet 5 mg PO DAILY #180 tab 03/15/21 10/20/21 Rx metoprolol tartrate 100 mg tablet 50 mg PO BID #60 tab 03/24/21 10/27/21 Rx potassium chloride 10 mEq 10 meq PO DAILY #90 tab 06/08/21 10/27/21 Rx tablet,extended release(part/cryst) pravastatin 40 mg tablet 40 mg PO QPM #90 tab 08/14/21 10/27/21 Rx glipizide 5 mg tablet 10 mg PO DAILY #180 tab 08/29/21 10/27/21 Rx tamsulosin 0.4 mg capsule 0.4 mg PO HS #90 cap 08/29/21 10/27/21 Rx docusate sodium [Colace] 100 mg PO DAILY 10/27/21 10/27/21 History sodium bicarbonate 325 mg PO BID PRN 10/27/21 10/28/21 History Exam Narrative Exam Narrative: Morbidly obese white male alert and oriented to person place time circumstance wearing his CPAP mask. Was difficult to understand him underneath the mask so I loosened his mask so he could communicate with me. HEENT is otherwise unremarkable. Neck is obese difficult to assess for JVD due to his obesity. He has normal carotid pulses no bruits Lungs with diffuse expiratory wheezes in all lung trevino anteriorly and posteriorly. Heart tones are difficult to assess due to his wheezing but sound to be irregular with no appreciable murmur rub Abdomen is obese soft nontender with normal active bowel sounds. Because of his obesity is difficult to assess for organomegaly but there is no overt masses and no audible bruits. Lower extremities with 2+ pitting edema bilaterally from his ankles up to his knees with bronze stasis dermatitis skin changes bilaterally no open sores. He has normal pedal pulses. He has a lack of hair over the dorsum of his feet. Neuro exam grossly intact no focal motor deficits. Sensory is intact to light touch. I did not perform fine touch or vibratory sense. DTRs were not tested. Cranial nerves grossly intact. Results Imaging Chest x-ray: image reviewed EKG: image reviewed Imaging Studies: POCUS exam of his lungs shows bilateral basilar to mid lung B-lines but no pleural effusion and no consolidation. Upper trevino showed normal A-line pattern. Cardiac exam was limited because of the patient's body habitus and difficulty getting him properly position. However an apical four-chamber view and a subcostal four-chamber view were obtained and he appears to have preserved LV and RV function with biatrial enlargement and a small pericardial effusion with no evidence for tamponade. IVC appears to be dilated but unable to get adequate images to obtain decent M-mode measurements. Labs Result diagrams: 10/27/21 23:00 10/28/21 06:58 Labs: Laboratory Results - last 24 hr 10/27/21 10/27/21 10/27/21 22:53 23:00 23:00 WBC 5.90 RBC 3.46 L Hgb 9.1 L Hct 31.8 L MCV 91.9 MCH 26.3 L MCHC 28.6 L RDW 16.9 H Plt Count 157 MPV 9.3 Immature Gran % 0.5 Neutrophils % 64.1 Lymphocytes % 18.3 Monocytes % 11.5 Eosinophils % 5.3 Basophils % 0.3 Nucleated RBC % 0 Absolute Neutrophils 3.78 Absolute Lymphocytes 1.08 L Absolute Monocytes 0.68 Absolute Eosinophils 0.31 Absolute Basophils 0.02 PT INR Sodium 142 Potassium 4.1 Chloride 106 Carbon Dioxide 30.4 Anion Gap 5.6 BUN 23 H Creatinine 2.5 H Estimated GFR/1.73 m2 24.85 Glucose 156 H Calcium 9.2 Magnesium 2.5 H Total Bilirubin 0.9 AST 18 ALT 11 L Alkaline Phosphatase 93 Troponin I < 0.05 NT-Pro-B Natriuret Pep Total Protein 7.9 Albumin 3.0 L Procalcitonin COVID-19 Source Cancelled SARS-CoV-2 (PCR) Cancelled Influenza Type A (PCR) Influenza Type B (PCR) RSV (PCR) 10/27/21 10/27/21 10/27/21 23:00 23:00 23:16 WBC RBC Hgb Hct MCV MCH MCHC RDW Plt Count MPV Immature Gran % Neutrophils % Lymphocytes % Monocytes % Eosinophils % Basophils % Nucleated RBC % Absolute Neutrophils Absolute Lymphocytes Absolute Monocytes Absolute Eosinophils Absolute Basophils PT 46.9 H INR 4.9 H* Sodium Potassium Chloride Carbon Dioxide Anion Gap BUN Creatinine Estimated GFR/1.73 m2 Glucose Calcium Magnesium Total Bilirubin AST ALT Alkaline Phosphatase Troponin I NT-Pro-B Natriuret Pep 5337 H Total Protein Albumin Procalcitonin COVID-19 Source NASOPHARYX SARS-CoV-2 (PCR) Negative Influenza Type A (PCR) Negative Influenza Type B (PCR) Negative RSV (PCR) Negative 10/28/21 10/28/21 06:58 06:58 WBC RBC Hgb Hct MCV MCH MCHC RDW Plt Count MPV Immature Gran % Neutrophils % Lymphocytes % Monocytes % Eosinophils % Basophils % Nucleated RBC % Absolute Neutrophils Absolute Lymphocytes Absolute Monocytes Absolute Eosinophils Absolute Basophils PT INR Sodium 140 Potassium 4.1 Chloride 105 Carbon Dioxide 24.7 Anion Gap 10.3 BUN 27 H Creatinine 2.5 H Estimated GFR/1.73 m2 24.85 Glucose 272 H D Calcium 9.3 Magnesium Total Bilirubin AST ALT Alkaline Phosphatase Troponin I < 0.05 NT-Pro-B Natriuret Pep Total Protein Albumin Procalcitonin < 0.1 COVID-19 Source SARS-CoV-2 (PCR) Influenza Type A (PCR) Influenza Type B (PCR) RSV (PCR) Last Vital Signs Temp 36.3 C L 10/28/21 08:14 Pulse 74 10/28/21 08:14 Resp 24 10/28/21 08:14 BP 122/73 10/28/21 08:14 Pulse Ox 92 10/28/21 08:14
--- NOTE | 2021-10-28 09:10 | INITIAL_ITS ---
- If Service Date Differs Date of service: 10/28/21 Time of Service: 09:10 Care Management Initial Assess REASON FOR HOSPITALIZATION:: Wheezing, SOB PAST MEDICAL HISTORY/PAST SURGICAL HISTORY:: Medical History . Atrial fibrillation. BPH (benign prostatic hyperplasia). Diabetes mellitus type 2 in obese. Essential hypertension, benign. GERD (gastroesophageal reflux disease). Hyperlipidemia. Nephrolithia sis. Obesity hypoventilation syndrome. LUCAS on CPAP. Surgical History . Cholecystectomy (~1985). Colonoscopy - MAC (~2002). Replacement of total knee joint. B/L. Tonsillectomy and adenoidectomy PREVIOUS FUNCTIONAL STATUS/SOCIAL/FAMILY SUPPORTS:: Resides with his , Lashawn, at their home in [place]. Retired now after many years working for [employer]. They have one daughter who lives about 6 miles from him and is supportive. CURRENT FUNCTIONAL STATUS:: Sav is lying in bed, remains short of breath, drowsy during CM consult. He has his home CPAP unit and is using it at night. One assist up to chair today. ADVANCE DIRECTIVES:: None on file at [facility]. Has patient been provided with info about the portal/API?: Yes Did the patient sign up for the portal?: No CODE STATUS:: Full Code INSURANCE COVERAGE / FINANCIAL ISSUES:: [employer]-Medicare replacement CURRENT HOME/COMMUNITY SERVICES/EQUIPMENT:: Uses a cane, FWW, and CPAP through [employer]. PRIMARY CARE PHYSICIAN:: Ricardo Luis MD POTENTIAL DISCHARGE NEEDS:: Follow up appointment with PCP, evaluation for increased service supports. PATIENT/FAMILY EDUCATION NEEDS:: Discharge education, limitations and follow up plan of care including ask me three and self management. ANTICIPATED BARRIERS TO DISCHARGE:: None identified at this time. TRANSPORTATION:: Via private car with spouse at time of discharge. PLAN:: Anticipate Sav will return home when ready per MD with new orders for [facility] RN/PT/OT to support his in his transition home. He will follow up with his PCP and plan of care as prescribed. He will transport via private vehicle with his .
[2021-10-28] MEDS: Metoprolol 50 MG TAB PO ×2 (09:13→19:19)
[2021-10-28] MEDS: Doxycycline Hyclate 100 MG CAP PO ×2 (09:14→19:19)
[2021-10-28] MEDS: Docusate Sodium 100 MG CAP PO ×2 (09:14→19:19)
[2021-10-28] MEDS: Potassium Chloride 10 MEQ TABCR PO (09:14)
[2021-10-28] MEDS: predniSONE 20 MG TAB 40 MG PO (09:14)
[2021-10-28] MEDS: Omeprazole 20 MG CAPCR PO (09:14)
[2021-10-28] MEDS: amLODIPine 5 MG TAB PO (09:15)
[2021-10-28] MEDS: Multivitamin TAB 1 TAB PO (09:15)
[2021-10-28] MEDS: Normal Saline Flush 10 ML SYR IVP ×2 (09:15→21:50)
[2021-10-28] MEDS: Furosemide 100 MG/10 ML VIAL 80 MG IVP ×3 (09:15→17:51)
[2021-10-28] MEDS: guaiFENesin 600 MG TABCR PO ×2 (09:16→19:19)
[2021-10-28] MEDS: Albuterol/Ipratropium 3 ML UPD VIAL UPD ×3 (09:16→19:19)
[2021-10-28] MEDS: Insulin Aspart 300 UNITS/3 ML PEN SC ×7 (09:17→21:49)
[2021-10-28 09:36] LABS: TSH (W/Ref FT4) 0.46 uIU/mL (0.36-3.74)
[2021-10-28 11:25] LABS: Prothrombin Time 51.7 sec (9.3-11.0)
[2021-10-28 11:27] LABS: INR 5.4 (0.9-1.1)
[2021-10-28] MEDS: Phytonadione 5 MG TABLET 10 MG PO (12:05)
[2021-10-28 13:27] LABS: Bilirubin Small (Negative); Blood Large (Negative); Clarity Cloudy (Clear); Glucose Negative (Negative); Ketones Trace mg/dL (Negative); Leukocyte Esterase Large (Negative); Nitrite Positive (Negative); Specific Gravity 1.025 (1.005-1.025); pH 5.5 (5-8)
[2021-10-28 13:33] LABS: WBC >50 HPF (0-5)
[2021-10-28 13:34] LABS: C & S Indicated? C&S Done As Ordered
[2021-10-28] MEDS: CEFEPIME 1 GM in Normal Saline 50 ML IVPB (14:56)
[2021-10-28] MEDS: Nystatin POWDER 60 GM JAR TP ×2 (14:56→19:19)
[2021-10-28] MEDS: Pravastatin 40 MG TAB PO (19:20)
[2021-10-28] MEDS: Tamsulosin 0.4 MG CAPCR PO (21:48)
[2021-10-29] VITALS (11 sets, daily range): BP systolic 107–168; BP diastolic 66–92; PULSE 67–81; RESP 2–22; TEMP 36.5–37.7; O2SAT 93–96
[2021-10-29] MEDS: CEFEPIME 1 GM in Normal Saline 50 ML IVPB ×2 (01:55→15:40)
[2021-10-29] MEDS: Normal Saline Flush 10 ML SYR IVP ×2 (01:56→20:19)
[2021-10-29 06:53] LABS: Abs Immature Grans 0.08 10^3/uL (0.0-0.06); Absolute Basophil Count 0.01 10^3/uL (0.0-0.2); Absolute Lymphocyte Count 1.07 10^3/uL (1.2-3.4); Absolute Monocyte Count 0.66 10^3/uL (0.1-0.8); Absolute Neutrophil Count 9.43 10^3/uL (1.2-6.7); Basophils % 0.1; HCT 28.6 % (40.0-50.0); HGB 8.7 g/dL (13.5-17.5); Immature Grans % 0.7; Lymphocytes % 9.5; MCH 26.6 pg (27.0-33.0); MCHC 30.4 % (32.0-36.0); MCV 87.5 fL (80-95); MPV 10.2 fL (8.0-11.0); Monocytes % 5.9; Neutrophils % 83.8; Nucleated RBC 0 %; RBC 3.27 10^6/uL (4.36-5.78); RDW 16.9 % (11.8-14.1); RDW-SD 53.9 fL; WBC 11.25 10^3/uL (4.4-10.8)
[2021-10-29 07:04] LABS: Anion Gap 7.9 mmol/L (3-11); BUN 37 mg/dL (7-18); CO2 27.1 mmol/L (21.0-32.0); CREATININE 2.6 mg/dL (0.70-1.30); Calcium 9.3 mg/dL (8.5-10.1); Chloride 105 mmol/L (98-107); Estimated GFR 23.75 (mL/min/1.73m2); Glucose 188 mg/dL (74-106); Potassium 3.7 mmol/L (3.5-5.1); Sodium 140 mmol/L (136-145)
[2021-10-29 07:07] LABS: INR 2.3 (0.9-1.1); Prothrombin Time 22.7 sec (9.3-11.0)
[2021-10-29 07:15] LABS: Iron 23 ug/dL (65-175); Total Iron Binding Capacity 338 ug/dL (250-450); Transferrin Sat 7 % (20-55)
[2021-10-29 07:16] LABS: Diff Comment Diff Reviewed; Hypochromasia 2+; Platelet Count 173 10^3/uL (130-400); Polychromasia Present
[2021-10-29 07:19] LABS: Calculated LDL 83 mg/dL (<100); Cholesterol 126 mg/dL (<200); Ferritin 37 ng/mL (26-388); HDL Cholesterol 30 mg/dL (40-60); Triglyceride 65 mg/dL (<150)
[2021-10-29 07:20] LABS: Hemoglobin A1C 6.9 % (<5.7)
[2021-10-29 07:41] LABS: Folate 15.2 ng/mL (8.6-20.0); Magnesium 2.5 mg/dL (1.8-2.4); Vitamin B12 600 pg/mL (193-986)
[2021-10-29] MEDS: Nystatin POWDER 60 GM JAR TP ×3 (09:00→20:15)
[2021-10-29] MEDS: Albuterol/Ipratropium 3 ML UPD VIAL UPD ×4 (09:44→20:15)
[2021-10-29] MEDS: guaiFENesin 600 MG TABCR PO ×2 (09:45→12:30)
[2021-10-29] MEDS: Docusate Sodium 100 MG CAP PO ×2 (09:45→20:13)
[2021-10-29] MEDS: Potassium Chloride 10 MEQ TABCR PO (09:45)
[2021-10-29] MEDS: Omeprazole 20 MG CAPCR PO (09:45)
[2021-10-29] MEDS: Multivitamin TAB 1 TAB PO (09:45)
[2021-10-29] MEDS: Doxycycline Hyclate 100 MG CAP PO (09:45)
[2021-10-29] MEDS: predniSONE 20 MG TAB 40 MG PO (09:45)
[2021-10-29] MEDS: Insulin Aspart 300 UNITS/3 ML PEN SC ×7 (09:45→21:40)
[2021-10-29] MEDS: Furosemide 100 MG/10 ML VIAL 80 MG IVP ×3 (10:54→18:19)
--- NOTE | 2021-10-29 11:12 | IN_ITS ---
Date of service: 10/29/21 Time of Service: 11:10 PT Notes Visit Reasons: wheezing, shortness of breath Inpatient Physical Therapy Evaluation Date: 10/29/2021 Referring Doctor: Mirta Grossman NP PT Orders: PT CONSULT: Limited ability Precautions: Standard, fall precautions, activity as tolerated. Patient Profile/Admitting Diagnosis: History of Present Illness Chief Complaint: dyspnea Narrative: 81-year-old white male non-smoker with type 2 diabetes mellitus, essential hypertension, LUCAS treated with CPAP, no formal diagnosis of congestive heart failure but takes diuretics regularly., Chronic atrial fibrillation rate control with metoprolol and chronically anticoagulated with warfarin who presented emergency department with dyspnea that began morning along with a cough that is been minimally productive of whitish mucus with occasional yellowish coloration. No associated fever chills rigors. Has had some chest pain with the coughing. He has chronic bilateral leg edema. He is usually taking Lasix 60 mg twice a day. He has chronic kidney disease with a baseline creatinine of around two. PMHX: PFSH All Active Problems (Updated 10/28/21 @ 08:47 by Robert Traore) Acute bronchitis (Acute) Chronic renal failure, stage 4 (severe) (Chronic) Acute on chronic heart failure with preserved ejection fraction (Acute) Dyspnea (Acute) Wheezing (Acute) Multisystem organ failure (Acute) Hives (Acute) Cellulitis of foot (Acute 10/17/06) Obesity (Acute 02/11/13) Status post cholecystectomy (Acute) Status post cystoscopy (Acute 02/15/16) Status post tonsillectomy and adenoidectomy (Acute) Status post total bilateral knee replacement (Acute) Obstructive nephropathy (Acute) Moderate pulmonary arterial systolic hypertension (Chronic) Metabolic acidosis with respiratory acidosis (Acute) Complicated UTI (urinary tract infection) (Acute) Sepsis (Acute) Obstructive uropathy (Acute) Discharge planning issues (Acute) Fever (Acute) Chronic anticoagulation (Chronic) Bladder stone (Chronic 02/14/16) Carpal tunnel syndrome (Chronic) Generalized osteoarthrosis (Chronic) Hiatal hernia (Chronic) Obesity (Chronic 02/11/13) Polyp of colon (Chronic) Rosacea (Chronic) Sexual function problem (Chronic) Constipation (Chronic) DVT prophylaxis (Acute) CHF (congestive heart failure) (Chronic) Obesity, Class III, 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) UTI (urinary tract infection) (Acute) Medical History Atrial fibrillation BPH (benign prostatic hyperplasia) Diabetes mellitus type 2 in obese Essential hypertension, benign GERD (gastroesophageal reflux disease) Hyperlipidemia Nephrolithiasis Obesity hypoventilation syndrome LUCAS on CPAP Surgical History Cholecystectomy (~1985) Colonoscopy - MAC (~2002) Replacement of total knee joint B/L Tonsillectomy and adenoidectomy Social History/Home Situation: Lives with his in a multilevel home. Very to not utilize the upstairs of their dwelling and live primarily in the first floor. 2 steps with hand railing into the dwelling. Equipment Owned/DME: Cane in front wheeled walker. Patient states he uses a cane has baseline functional mobility. Subjective: Complaining of shortness of breath with activity. Denies any significant pain. Has been battling left shoulder pain for 6+ months. Was scheduled for cortisone injection this coming Saturday. Objective: General Observation: Catheter, to IV ports in right upper extremity. Patient is right-hand dominant Mental Status: Alert and oriented x3 Pain: 0/10 Vital Signs: Monitored via telemetry ROM: Right Upper Extremity: Glenohumeral joint flexion 110 degrees, 115 active assisted with pain at endrange, abduction 75 degrees, external rotation 25 degrees with arm by side. Elbow flexion and extension within normal limits, wrist range of motion within normal limits. Left Upper Extremity: Glenohumeral joint flexion and abduction 10 degrees limited due to pain. External rotation with arm by side 0 degrees. Elbow flexion and extension within normal limits, wrist range of motion within normal limits. Right Lower Extremity: Hip, knee and ankle range of motion active within functional limits pain-free Left Lower Extremity: Hip, knee and ankle range of motion active within func tional limits pain-free. Strength: Right Upper Extremity: 4/5 glenohumeral joint flexion, abduction, bicep, tricep. 4 -/5 external rotation. 4/5 internal rotation. 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 Left Upper Extremity: Unable to test left shoulder secondary to pain. Bicep and tricep 4/5. 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 Right Lower Extremity: 4+/5 throughout Left Lower Extremity: 4+/5 throughout Sensation: Intact sensation bilateral lower extremities to light touch Bed Mobility/Transfers: Patient sitting in chair bedside at start of initial evaluation. Sit to stand: Standby assist to front wheeled walker Stand to sit: Standby assist from front wheeled walker Gait: 15 feet x 2 with front wheel walker and standby assist. Significant increased wheezing with walking activity. Also reports mild shortness of breath. O2 saturation was not monitored. Balance: Static Sitting: Good Dynamic Sitting: Good Static Standing: Normal Dynamic Standing: Fair Special Tests: Mobility Limitations Standardized Measure [facility] AM-PAC 6 clicks Basic Mobility Inpatient Short Form: Raw Score: 20 standardized Score: 47.67 CMS Score: 53.83] Informed Consent/Education: Patient instructed in purpose of PT consult and plan of care. Assessment: Patient is a 81 year old male referred to physical therapy services with the diagnosis of dyspnea, limited ability. Patient presents with clinical signs and symptoms consistent with diagnosis, as demonstrated by the following impairment level findings: 1. Decreased activity tolerance due to cardiopulmonary status 2. Generalized weakness 3. Fatigue 4. SOB Impairments are contributing to the following functional limitations: 1. Decreased activity tolerance 2. Difficulty with ambulation. Impairments are contributing to the following functional limitations: AMPAC score. Patient is assessed as a [] Low 34804 X Moderate 72026 [] High 96850 complexity based on the following: History: See above Examination: See above Presentation: Evolving Decision Making: Moderate Goals: Goals X1 week 1. Supine-Sit: Independent 2. Sit-Supine: Independent 3. Sit-Stand: Independent 4. Stand-Sit: Independent 5. Bed-Chair: Independent 6. Chair-Bed: Independent 7. Gait: Greater than or equal to 200 feet with least required assistive device and standby assist Plan of Care/Treatment Plan: 1-2x/day, 7 days/week x 1 week. Plan of care has been reviewed with the CONSULTING TECHNICAL DIRECTOR providing the service under Physical Therapy direction. Initiate Physical Therapy intervention for strengthening, bed mobility, transfers, gait, stairs, balance training, use of assistive device. DISCHARGE RECOMMENDATIONS: X Home with services [home health physical therapy] TREATMENT CODE/TIME: 46488. Direct treatment time 11:10 - 11:30 Thank you for this referral Rui Naylor PT, DPT Disclaimer: This note was created using [employer] voice recognition software. It was reviewed for major content. However, there may be multiple small discrepancies and errors due to the voice recognition aspects of the software.
[2021-10-29] MEDS: amLODIPine 5 MG TAB PO (12:30)
[2021-10-29] MEDS: Metoprolol 50 MG TAB PO ×2 (12:30→20:13)
--- NOTE | 2021-10-29 14:29 | PGE_ITS ---
Date of Service Date of service: 10/29/21 Time of Service: 11:00 Assessment and Plan Assessment and plan (1) UTI (urinary tract infection): Start date: 10/29/21 Start time: 11:00 Status: Acute Assessment and plan: U/a done with positive nitrates large leuk est large amount of blood patient placed on cefepime Urine was milky in consistency with brown and pink discoloration. Growing gram negative rods at this time. Afebrile. Qualifiers: Urinary tract infection type: acute cystitis Hematuria presence: with hematuria Qualified Code(s): N30.01 - Acute cystitis with hematuria (2) Acute on chronic heart failure with preserved ejection fraction: Start date: 10/29/21 Start time: 11:00 Status: Acute Assessment and plan: Breathing improving. Wt is down to 153 kg. continue lasix TID Griffin to measure UOP, daily wts. Echo pending Cardiology consulted (3) Chronic renal failure, stage 4 (severe): Start date: 10/29/21 Start time: 11:00 Status: Chronic Assessment and plan: patient should be placed on SGLT2 inhibitor for both renal protection as well as treatment of CHF and diabetes mellitus. His diabetes mellitus should be optimized in addition to his CHF. (4) Diabetes mellitus type 2 in obese: Start date: 10/29/21 Start time: 11:00 Assessment and plan: Will monitor blood sugars before meals and at bedtime and check a A1c 6.9 improved from 8.5 in may Will provide NovoLog sliding scale insulin resistant in addition to NovoLog for meal coverage at a ratio of 2:10. hold his glipizide. Upon discharge she should be transition to an SGLT2 inhibitor such as empagliflozin 10 mg daily. (5) Acute bronchitis: Start date: 10/29/21 Start time: 11:00 Status: Acute Assessment and plan: We'll treat with aerosolized bronchodilators along with 5-day course of doxycycline and 5-day course of prednisone. Qualifiers: Bronchitis organism: unspecified organism Qualified Code(s): J20.9 - Acute bronchitis, unspecified (6) Atrial fibrillation: Start date: 10/29/21 Start time: 11:00 Assessment and plan: On coumandin, held yesterday for INR over 5, today INR is 2.3. Goal is for 3. Will restart evening dose with monitoring. discussed with Dr. Adames Qualifiers: Atrial fibrillation type: longstanding persistent Qualified Code(s): I48.11 - Longstanding persistent atrial fibrillation Subjective Subjective Patient reports: no new complaints Interval history since last seen: Sitting up in chair. SOB improved from admission. Spoke to about about possible bipass surgery in future. Cardiology consulted for tomorrow with repeat echo. He has not had one since 2019 and has never seen electric distribution engineer. He is now on RA. Wt today is down from admission. He did have a griffin placed to monitor strict I/O. U/a revealed positive nitrates, large leuk est. initated on cefepime. Continue current treatment. Urine cx growing gram negative lam Exam Narrative Exam Narrative: Morbidly obesemale alert and oriented to person place time circumstance sitting up in chair. HEENT is otherwise unremarkable. Neck is obese difficult to assess for JVD due to his obesity. He has normal carotid pulses no bruits Lungs rhonchi, no wheezing or crackles. Heart Irregularrly iregular Abdomen is obese soft nontender with normal active bowel sounds. Because of his obesity is difficult to assess for organomegaly but there is no overt masses and no audible bruits. Lower extremities with 2+ pitting edema bilaterally from his ankles up to his knees with bronze stasis dermatitis skin changes bilaterally no open sores. He has normal pedal pulses. He has a lack of hair over the dorsum of his feet. Neuro exam grossly intact no focal motor deficits. Sensory is intact to light touch. Objective Last Vital Signs Temp 36.6 C 10/29/21 12:04 Pulse 70 10/29/21 12:04 Resp 20 10/29/21 12:04 BP 168/81 H 10/29/21 12:04 Pulse Ox 96 10/29/21 12:04 Laboratory Results - last 24 hr 10/29/21 10/29/21 10/29/21 06:00 06:00 06:00 WBC RBC Hgb Hct MCV MCH MCHC RDW Plt Count MPV Immature Gran % Neutrophils % Lymphocytes % Monocytes % Eosinophils % Basophils % Nucleated RBC % Absolute Neutrophils Absolute Lymphocytes Absolute Monocytes Absolute Eosinophils Absolute Basophils RBC Morphology Polychromasia Hypochromasia PT INR Sodium Potassium Chloride Carbon Dioxide Anion Gap BUN Creatinine Estimated GFR/1.73 m2 Glucose Hemoglobin A1c 6.9 H Calcium Magnesium Iron 23 L TIBC 338 Transferrin % Sat 7 L Ferritin 37 Triglycerides 65 Total Cholesterol 126 LDL Cholesterol, Calc 83 HDL Cholesterol 30 L Vitamin B12 Folate 10/29/21 10/29/21 10/29/21 06:00 06:00 06:00 WBC 11.25 H RBC 3.27 L Hgb 8.7 L Hct 28.6 L MCV 87.5 MCH 26.6 L MCHC 30.4 L RDW 16.9 H Plt Count 173 MPV 10.2 Immature Gran % 0.7 Neutrophils % 83.8 Lymphocytes % 9.5 Monocytes % 5.9 Eosinophils % 0.0 Basophils % 0.1 Nucleated RBC % 0 Absolute Neutrophils 9.43 H Absolute Lymphocytes 1.07 L Absolute Monocytes 0.66 Absolute Eosinophils 0.00 Absolute Basophils 0.01 RBC Morphology See Below Polychromasia Present Hypochromasia 2+ PT INR Sodium 140 Potassium 3.7 Chloride 105 Carbon Dioxide 27.1 Anion Gap 7.9 BUN 37 H D Creatinine 2.6 H Estimated GFR/1.73 m2 23.75 Glucose 188 H D Hemoglobin A1c Calcium 9.3 Magnesium 2.5 H Iron TIBC Transferrin % Sat Ferritin Triglycerides Total Cholesterol LDL Cholesterol, Calc HDL Cholesterol Vitamin B12 600 Folate 15.2 10/29/21 06:00 WBC RBC Hgb Hct MCV MCH MCHC RDW Plt Count MPV Immature Gran % Neutrophils % Lymphocytes % Monocytes % Eosinophils % Basophils % Nucleated RBC % Absolute Neutrophils Absolute Lymphocytes Absolute Monocytes Absolute Eosinophils Absolute Basophils RBC Morphology Polychromasia Hypochromasia PT 22.7 H D INR 2.3 H D Sodium Potassium Chloride Carbon Dioxide Anion Gap BUN Creatinine Estimated GFR/1.73 m2 Glucose Hemoglobin A1c Calcium Magnesium Iron TIBC Transferrin % Sat Ferritin Triglycerides Total Cholesterol LDL Cholesterol, Calc HDL Cholesterol Vitamin B12 Folate
[2021-10-29] MEDS: Acetaminophen 325 MG TAB PO (20:12)
[2021-10-29] MEDS: Mylanta Suspension 30 ML CUP PO (20:13)
[2021-10-29] MEDS: guaiFENesin 600 MG TABCR 1200 MG PO (20:13)
[2021-10-29] MEDS: Pravastatin 40 MG TAB PO (20:16)
[2021-10-29] MEDS: Warfarin 5 MG TAB PO (20:17)
[2021-10-29] MEDS: Tamsulosin 0.4 MG CAPCR PO (21:39)
[2021-10-29] MEDS: Albuterol 2.5 MG/3 ML INH SOLN VIAL UPD (21:46)
[2021-10-30] VITALS (16 sets, daily range): BP systolic 114–127; BP diastolic 66–80; PULSE 65–82; RESP 4–21; TEMP 35.6–36.9; O2SAT 92–94
[2021-10-30] MEDS: CEFEPIME 1 GM in Normal Saline 50 ML IVPB (02:23)
[2021-10-30] MEDS: Furosemide 100 MG/10 ML VIAL 80 MG IVP (05:31)
--- NOTE | 2021-10-30 07:00 | DI.US_ITS ---
APPROVED REPORT EXAM: Comprehensive 2D, Doppler, and color-flow Echocardiogram Patient Location: In-Patient Room/Bed: [address] Mate: Barbara Hughes RDCS (AE) Indications: CHF, Evaluate LV and RV Other Information Study Quality: Technically Difficult. Technically limited study due to body habitus, inability to pos ition patient. Conclusion This is a technically limited study Left Ventricle : The left ventricle is normal size. The left ventricular systolic function is normal. The left ventricular ejection fraction is within the normal range. There is normal left ventricular wall thickness. There is normal LV segmental wall motion. The left ventricular diastolic function is normal. LVEF is 55%. Right Ventricle : Right ventricle is not well visualized. Right ventricular systolic function could n ot be assessed. There was not enough TR to evaluate RVSP Atria : Left atrium is moderately dilated. Right atrium is moderately dilated. Great Vessels : The aortic root is normal in size. The ascending aorta is moderately dilated. IVC is normal in size and collapses >50% with inspiration. Compared to study from 2019, there is no significant change though the current study was unable to es timate RVSP. Wall motion Left Ventricle The left ventricle is normal size. The left ventricular systolic function is normal. The left ventric ular ejection fraction is within the normal range. There is normal left ventricular wall thickness. T here is normal LV segmental wall motion. The left ventricular diastolic function is normal. There is no ventricular septal defect visualized. LVEF is 55%. Right Ventricle Right ventricle is not well visualized. Right ventricular systolic function could not be assessed. Th ere was not enough TR to evaluate RVSP Atria Left atrium is moderately dilated. Right atrium is moderately dilated. The interatrial septum is inta ct with no evidence for an atrial septal defect. Aortic Valve The aortic valve is normal in structure. Number of aortic valve leaflets could not be assessed. There is no aortic valvular stenosis. No aortic regurgitation is present. Mitral Valve Mild mitral annular calcification. No evidence of mitral valve stenosis. Trace mitral regurgitation. Tricuspid Valve The tricuspid valve is normal in structure. There is no tricuspid valve stenosis. Trace tricuspid reg urgitation. Pulmonic Valve Pulmonic valve is not well visualized. There is no pulmonic valvular stenosis. There is no pulmonic v alvular regurgitation. Great Vessels The aortic root is normal in size. The ascending aorta is moderately dilated. IVC is normal in size a nd collapses >50% with inspiration. Pericardium There is no pericardial effusion. 2D Dimensions IVSD d PLAX 1.19 cm M: 0.6-1.2 LVPW d PLAX 1.20 cm M: 0.6 - 1.2 LVID d PLAX 5.26 cm M: 4.2 - 5.8 LVDs 3.70 cm M: 2.5 - 4.0 Ao Root d 2.88 cm M: 3.1 - 3.7 Ao Asc Diam d 4.04 cm M: 2.6 - 3.4 LV EF Teichholz 55.4 % FS 29.05 % M-Mode TAPSE 2.09 cm (M/F) >1.7 LV Diastology MV E' medial 0.078 (>0.07 m/s) MV E Vmax 0.95 (0.4-1.3 m/s) LV E/e MED 12.20 (<14) MV E' lateral 0.075 (>0.1 m/s) LV E/e LAT 12.70 (<14) MV E/E' medial 12.20 MV E/E' lateral 12.73 Aortic Valve LVOT Area 3.51 cm2 AoV Area Vmax 3.00 cm2 LVOT Vmax 1.05 m/s AoV Area/ BSA (Vmax) 1.11 cm2/m2 LVOT Mean Uriah. 0.67 m/s TO Mean Uriah. 2.73 cm2 LVOT Peak Grad 4.4 mmHg TO Mean Uriah. Index 1.01 cm2/m2 LVOT Mean Grad 2.1 mmHg LVOT VTI 0.183 m LVOT Diam s 2.10 cm AoV Vmax 1.23 m/s Velocity Ratio 0.85 AoV Mean Uriah. 0.86 m/s AoV Peak Grad 6.1 mmHg LVOT SV 64.01 mL AoV Mean Grad 3.4 mmHg AoV VTI 0.202 m AoV Area VTI 3.16 cm2 AoV Area/ BSA (VTI) 1.16 cm/m2 Mitral Valve MV DT 207 (160-240 msec) MV PHT 60 msec MV Area PHT 3.67 cm2 MV VTI 0.305 m MV Area VTI 2.10 (4.0-6.0 cm2) Pulmonary Valve PV Vmax 1.25 (0.5-1.5 m/s) RVOT Peak Gr. 1.79 mmHg PV Peak Grad 6.2 mmHg RVOT Mean Gr. 0.90 mmHg PV Mean Grad 4.2 mmHg RVOT VTI 0.153 m PV VTI 0.230 m RVOT Vmax 0.67 m/s
[2021-10-30 07:32] LABS: Abs Immature Grans 0.07 10^3/uL (0.0-0.06); Absolute Basophil Count 0.01 10^3/uL (0.0-0.2); Absolute Monocyte Count 0.75 10^3/uL (0.1-0.8); Absolute Neutrophil Count 8.37 10^3/uL (1.2-6.7); Basophils % 0.1; HCT 31.4 % (40.0-50.0); HGB 9.6 g/dL (13.5-17.5); Immature Grans % 0.6; Lymphocytes % 16.4; MCH 26.6 pg (27.0-33.0); MCHC 30.6 % (32.0-36.0); MPV 9.8 fL (8.0-11.0); Monocytes % 6.8; Neutrophils % 76.1; Nucleated RBC 0 %; Platelet Count 193 10^3/uL (130-400); RBC 3.61 10^6/uL (4.36-5.78); RDW 16.8 % (11.8-14.1); RDW-SD 53.3 fL
[2021-10-30 07:52] LABS: Anion Gap 9.1 mmol/L (3-11); BUN 45 mg/dL (7-18); CO2 27.9 mmol/L (21.0-32.0); CREATININE 2.7 mg/dL (0.70-1.30); Calcium 9.4 mg/dL (8.5-10.1); Chloride 104 mmol/L (98-107); Estimated GFR 22.74 (mL/min/1.73m2); Glucose 176 mg/dL (74-106); Potassium 3.1 mmol/L (3.5-5.1); Sodium 141 mmol/L (136-145)
[2021-10-30 08:01] LABS: INR 1.4 (0.9-1.1); Prothrombin Time 13.7 sec (9.3-11.0)
[2021-10-30] MEDS: Insulin Aspart 300 UNITS/3 ML PEN SC ×7 (08:39→22:16)
[2021-10-30] MEDS: Potassium Chloride 10 MEQ TABCR PO (08:49)
[2021-10-30] MEDS: Metoprolol 50 MG TAB PO ×2 (08:49→20:12)
[2021-10-30] MEDS: guaiFENesin 600 MG TABCR 1200 MG PO ×2 (08:49→20:11)
[2021-10-30] MEDS: Multivitamin TAB 1 TAB PO (08:50)
[2021-10-30] MEDS: amLODIPine 5 MG TAB PO (08:50)
[2021-10-30] MEDS: predniSONE 20 MG TAB 40 MG PO (08:50)
[2021-10-30] MEDS: Omeprazole 20 MG CAPCR PO (08:50)
[2021-10-30] MEDS: Albuterol/Ipratropium 3 ML UPD VIAL UPD ×4 (08:51→18:26)
[2021-10-30] MEDS: Nystatin POWDER 60 GM JAR TP ×2 (08:55→14:49)
[2021-10-30] MEDS: Docusate Sodium 100 MG CAP PO ×2 (08:58→20:12)
--- NOTE | 2021-10-30 10:03 | OTIE_ITS ---
Occupational Therapy Notes Inpatient Occupational Therapy Evaluation Date: 10/30/21 Referring Doctor:Anali Miller MD OT Orders:Non urgent Precautions: Standard Precautions, fall, Full PATIENT PROFILE/ADMITTING DIAGNOSIS: Pt is a 81 year old male who was admitted to [facility] via ED for the clinical dx of Dyspnea and Wheezing. Past Medical History: All Active Problems (Updated 10/28/21 @ 08:47 by Robert Traore) Acute bronchitis (Acute) Chronic renal failure, stage 4 (severe) (Chronic) Acute on chronic heart failure with preserved ejection fraction (Acute) Dyspnea (Acute) Wheezing (Acute) Multisystem organ failure (Acute) Hives (Acute) Cellulitis of foot (Acute 10/17/06) Obesity (Acute 02/11/13) Status post cholecystectomy (Acute) Status post cystoscopy (Acute 02/15/16) Status post tonsillectomy and adenoidectomy (Acute) Status post total bilateral knee replacement (Acute) Obstructive nephropathy (Acute) Moderate pulmonary arterial systolic hypertension (Chronic) Metabolic acidosis with respiratory acidosis (Acute) Complicated UTI (urinary tract infection) (Acute) Sepsis (Acute) Obstructive uropathy (Acute) Discharge planning issues (Acute) Fever (Acute) Chronic anticoagulation (Chronic) Bladder stone (Chronic 02/14/16) Carpal tunnel syndrome (Chronic) Generalized osteoarthrosis (Chronic) Hiatal hernia (Chronic) Obesity (Chronic 02/11/13) Polyp of colon (Chronic) Rosacea (Chronic) Sexual function problem (Chronic) Constipation (Chronic) DVT prophylaxis (Acute) CHF (congestive heart failure) (Chronic) Obesity, Class III, 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) UTI (urinary tract infection) (Acute) Medical History Atrial fibrillation BPH (benign prostatic hyperplasia) Diabetes mellitus type 2 in obese Essential hypertension, benign GERD (gastroesophageal reflux disease) Hyperlipidemia Nephrolithiasis Obesity hypoventilation syndrome LUCAS on CPAP Surgical History Cholecystectomy (~1985) Colonoscopy - MAC (~2002) Replacement of total knee joint B/L Tonsillectomy and adenoidectomy Social History/Home Situation: Pt reports that he lives with in a house in [place], [place]. He has 2 steps to enter no railing and a step down living room with one step to get down into it. His baseline is (I) in ADLs and reports that his assists him with any other care that he needs including the shower (A), LE dressing (A) and cooking tasks. Equipment owned/DME: Cane, FWW, CPAP, shower seat, grab bars in bathroom SUBJECTIVE: Pt sitting in bed when OT arrived. He is agreeable to OT session. OBJECTIVE: General Observation: Pleasant and agreeable to OT session, (R) UE IV Mental Status: A&Ox4 Pain: no c/o pain ROM: RUE AROM Khushboo flexion limited to 95-100*, Elbow WNL (flexion and extension) L UE AROM WNL STRENGTH: RUE 5/5 throughout LUE 5/5 throughout OT and pt went over pts current level of function and his functional (I) in his daily routines. Pt states that he would like to perform his socks more (I). Pt and OT discussed plan of care goals needed for increased (I). Pt is receptive to this and feels that Occupational Therapy services will be helpful. BALANCE: Static sitting Normal Dynamic Sitting Normal SPECIAL TESTS: Daily Activity Limitations Standardized Measure [facility] AM -PAC ?6 clicks? Daily Activity Inpatient Short Form: Raw score:14 Standardized score: 33.39 CMS score: 59.67% INFORMED CONSENT/EDUCATION: Pt instructed in purpose of OT Consult and plan of care. ASSESSMENT: Patient is a 81-year-old male referred to occupational therapy services with diagnosis of acute bronchitis, chronic renal failure stage 4, chronic heart failure, dyspnea, wheezing, multisystem organ falure, hive, cellulitis of foot, s/p cholecyctectmy, obstructive nephropathy. Pt has difficulty with decreased functional activity tolerance, decreased standing tolerance, decreased ability to perform ADLs, decreased functional mobility required for ADLs. Patient is assessed as a Moderate 30981 complexity based on the following: History: see above Examination: See functional limitations as noted above Presentation: Evolving Decision Making: moderate complexity GOALS: 1 week 1. Pt will be able to mod (I) don and doff his socks in the seated position 2. Pt will be able to (I) perform his bathing routine sitting in the chair 3. Pt will be able to stand at the sink and brush his teeth (I) PLAN OF CARE/TREATMENT PLAN: OT will plan to see pt 1x per day, 5 days per week for 1 week. DISCHARGE RECOMMENDATIONS home with HH services when medically cleared. TREATMENT TIME/MINUTES/[place] [id number] [address] OTR/[facility]
[2021-10-30] MEDS: Amoxicillin 875/Clav. 125 TAB PO ×2 (11:58→20:12)
[2021-10-30] MEDS: Potassium Chloride 20 MEQ TABCR 40 MEQ PO ×2 (12:50→18:29)
--- NOTE | 2021-10-30 13:29 | W.INDIABCONS ---
Date of service: 10/30/21 Time of Service: 13:29 Diabetes Inpatient Consult DESCRIPTION/ASSESSMENT: Mr. Winkler has good PO intake. On a cho consistent, heart healthy, low sodium diet. BMI is 42.1 kg/m2 c/w class 3 severe obesity. Blood sugars are getting closer to target. He is on Aspart correction as well as Aspart to cover carbohydrate at 2 units/10 gms of CHO. Most recent A1C on 10/29/21 was 6.9 which is within target range suggesting good glycemic control. INTERVENTION: Will offer diabetes education as well as low sodium education while Mr. Winkler is here. PLAN: Will continue to follow blood sugars and nutritional status. Will evaluate nutrition care plan ongoing and adjust as needed. Time Spent in Nutritional Counseling and Treatment: 0
--- NOTE | 2021-10-30 13:58 | PT.INTREAT ---
Date of service: 10/30/21 Time of Service: 10:43 PT Notes Visit Reasons: Wheezing,Shortness of Breath Inpatient Physical Therapy Treatment Note [facility] Date: 10/30/2021 PRECAUTIONS: Fall, Activity as tolerated SUBJECTIVE: Sav is pleasant and agreeable to participating in PT. He states that he feels he could manage at home with the help of his , but he will go to a SNF for rehab first if that is the recommendation. OBJECTIVE: PAIN: No c/o pain BED MOBILITY/TRANSFERS Supine-sit: Min A with HOB at 30 degrees Sit-supine: I with HOB flat Sit-stand: SBA Stand-sit: SBA GAIT Assistive Device: FWW Weight bearing: Full Assist: SBA Distance: 80' + 120' in a.m.; 250' in p.m. Deviation: Slow pacing (increasing in p.m.), SOB THEREX: Patient was instructed in a supine LE strengthening and stabilization program, as per flow sheet. STAIRS: Up/down 3x4 and 2x6 using B rails and a step-to pattern with supervision. ASSESSMENT: Patient tolerated session with SOB with gait and stair training. He would benefit from continued general conditioning for improved activity tolerance. PLAN: Continue with global strengthening and gait and transfer training for improved activity tolerance. TREATMENT CODE/TIME: Session 1: 29 minutes; 72026 x2 (10:43) Session 2: 17 minutes; [id number] (15:13)
--- NOTE | 2021-10-30 15:21 | PGE_ITS ---
Date of Service Date of service: 10/30/21 Time of Service: 08:30 Assessment and Plan Assessment and plan (1) UTI (urinary tract infection): Start date: 10/30/21 Start time: 10:00 Status: Acute Assessment and plan: urine cx growing citrobacter freundii placed on augmentin Afebrile, wbc 11 continue to monitor CBC, check crp Qualifiers: Urinary tract infection type: acute cystitis Hematuria presence: with hematuria Qualified Code(s): N30.01 - Acute cystitis with hematuria (2) Acute on chronic heart failure with preserved ejection fraction: Start date: 10/30/21 Start time: 10:00 Status: Acute Assessment and plan: Breathing improving. Patient feeling better continue lasix will change to 60 BID [place] to measure UOP, daily wts. Echo with no significant change from 2019 Cardiology recommend continue current treatment Follow up as outpatient Recheck bnp in am (3) Chronic renal failure, stage 4 (severe): Start date: 10/30/21 Start time: 10:00 Status: Chronic Assessment and plan: patient should be placed on SGLT2 inhibitor for both renal protection as well as treatment of CHF and diabetes mellitus. His diabetes mellitus should be optimized in addition to his CHF. (4) Diabetes mellitus type 2 in obese: Start date: 10/30/21 Start time: 10:00 Assessment and plan: Will monitor blood sugars before meals and at bedtime and check a A1c 6.9 improved from 8.5 in may Will provide NovoLog sliding scale insulin resistant in addition to NovoLog for meal coverage at a ratio of 2:10. hold his glipizide. Upon discharge she should be transition to an SGLT2 inhibitor such as empagliflozin 10 mg daily. (5) Acute bronchitis: Start date: 10/30/21 Start time: 10:00 Status: Acute Assessment and plan: We'll treat with aerosolized bronchodilators and 5- day course of prednisone. now on augmentin for UTI Qualifiers: Bronchitis organism: unspecified organism Qualified Code(s): J20.9 - Acute bronchitis, unspecified (6) Atrial fibrillation: Start date: 10/30/21 Start time: 10:00 Assessment and plan: On coumandin, held yesterday for INR over 5, today INR is 1.4 give and extra dose 2.5 in addition to 5 mg tonight Goal is for 3. Will restart evening dose with monitoring. discussed with Dr. Adames Qualifiers: Atrial fibrillation type: longstanding persistent Qualified Code(s): I48.11 - Longstanding persistent atrial fibrillation Subjective Subjective Patient reports: feels better Interval history since last seen: Patient states he is feeling better and breathing better. Lasix has been decreased to to IVP BID. His wt is down 12 kg from admission. Cardiology stated continue with current treatment. He will need outpatient referral at discharge. Possible discharge tomorrow or saturday. Exam Narrative Exam Narrative: Morbidly obesemale alert and oriented to person place time circumstance sitting up in chair. HEENT is otherwise unremarkable. Neck is obese difficult to assess for JVD due to his obesity. He has normal carotid pulses no bruits Lungs rhonchi to lower bases, no wheezing or crackles. Heart Irregularly irregular Abdomen is obese soft nontender with normal active bowel sounds. Because of his obesity is difficult to assess for organomegaly but there is no overt masses and no audible bruits. Lower extremities with 2+ pitting edema bilaterall around ankles improving with bronze stasis dermatitis skin changes bilaterally no open sores. He has normal pedal pulses. He has a lack of hair over the dorsum of his feet. Neuro exam grossly intact no focal motor deficits. Sensory is intact to light touch. Objective Last Vital Signs Temp 36.7 C 10/30/21 10:54 Pulse 74 10/30/21 10:54 Resp 20 10/30/21 10:54 BP 114/66 10/30/21 10:54 Pulse Ox 92 10/30/21 10:54 Laboratory Results - last 24 hr 10/30/21 10/30/21 10/30/21 06:21 06:21 06:21 WBC 11.00 H RBC 3.61 L Hgb 9.6 L Hct 31.4 L MCV 87.0 MCH 26.6 L MCHC 30.6 L RDW 16.8 H Plt Count 193 MPV 9.8 Immature Gran % 0.6 Neutrophils % 76.1 Lymphocytes % 16.4 Monocytes % 6.8 Eosinophils % 0.0 Basophils % 0.1 Nucleated RBC % 0 Absolute Neutrophils 8.37 H Absolute Lymphocytes 1.80 Absolute Monocytes 0.75 Absolute Eosinophils 0.00 Absolute Basophils 0.01 PT 13.7 H D INR 1.4 H D Sodium 141 Potassium 3.1 L Chloride 104 Carbon Dioxide 27.9 Anion Gap 9.1 BUN 45 H Creatinine 2.7 H Estimated GFR/1.73 m2 22.74 Glucose 176 H Calcium 9.4
--- NOTE | 2021-10-30 16:46 | PCNE_ITS ---
Date of service: 10/30/21 Time of Service: 16:46 History of Present Illness History of Present Illness Chief Complaint: SOB Narrative: From H and P: History of Present Illness Chief Complaint: dyspnea Narrative: 81-year-old white male non-smoker with type 2 diabetes mellitus, essential hypertension, LUCAS treated with CPAP, no formal diagnosis of congestive heart failure but takes diuretics regularly., Chronic atrial fibrillation rate control with metoprolol and chronically anticoagulated with warfarin who presented emergency department with dyspnea that began morning along with a cough that is been minimally productive of whitish mucus with occasional yellowish coloration. No associated fever chills rigors. Has had some chest pain with the coughing. He has chronic bilateral leg edema. He is usually taking Lasix 60 mg twice a day. He has chronic kidney disease with a baseline creatinine of around two. Work-up in the ER included CBC that showed no leukocytosis with white count 5900. He has a chronic anemia hemoglobin 9.1 g hematocrit 31%. CMP shows chronic renal failure with a BUN of 23 creatinine 2.5 normal LFTs normal troponin I level of less than 0.05. proBNP is elevated at 5300 whereas his last BMP in June 08, 2021 was 2400. Procalcitonin was added to his morning labs and is less than 0.1. Nasal swab was negative for SARS-CoV-2 as well as influenza type a and B and RSV. He has been vaccinated with COVID vaccine x2 but has not received his booster. Chest x-ray last night was read as showing multifocal infiltrates and/or edema and mild cardiomegaly similar to previous exams. ECG shows atrial fibrillation slow rate of 49 bpm with no acute ischemic ST or T wave changes. Treatment emergency department included DuoNeb treatments and Solu-Medrol. Tentative diagnosis I received from the ER physician that the patient probably had a viral pneumonitis and acute bronchospasm. However I believe the patient is acute on chronic heart failure and may have a superimposed acute bronchitis. Patient will be treated with oral doxycycline and oral prednisone and bronchodilators for his bronchitis but for his heart failure he'll be placed on IV Lasix. He normally takes 60 mg orally twice a day. I'll put him on 80 mg IV 3 times daily and monitor his urine output daily weights as well as his BMP. We'll continue to use his home CPAP unit whenever he sleeps. If he deteriorates from a respiratory standpoint he'll be placed on hospital provided BiPAP machine and transferred to intensive care unit if he worsens. Patient is a full code. Interim Hx: Sav states that he is feeling better today. He was unclear exactly about the events of the last few days. He states that someone told him that he might need open heart surgery and that he was dying. He also states that he has left arm pain which has worsened since he received his Covid vaccine. He then went on to say that in general he has no pain and that has been a real plus given all of his problems. he thought that he had shortness of breath and wondered about bronchitis. He was unclear exactly what happened rega rding going to the [facility]. He states that when he is got his CPAP machine on that he does not have any shortness of breath. He recently had some chest pain and pressure and did call 911. He reiterated that he does not like to be in pain and usually he is not in pain. He was fairly scattered regarding recent events. He states that his is better able to answer things. He states he is retired. He used to work for [employer] prior to [employer]. 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 He knows he is not very healthy right now. He was able to tell me that he had heart problems, kidney problems, diabetes, and COPD. Assessment and Plan Assessment and plan (1) Chronic renal failure, stage 4 (severe): Status: Chronic (2) Acute on chronic heart failure with preserved ejection fraction: Status: Acute (3) Wheezing: Status: Acute (4) Multisystem organ failure: Status: Acute (5) Acute bronchitis: Status: Acute Qualifiers: Bronchitis organism: unspecified organism Qualified Code(s): J20.9 - Acute bronchitis, unspecified (6) Palliative care patient: Status: Acute Assessment and plan: Sav enjoyed our discussion, but was not able to truly answer questions thoughtfully. We did talk about CODE STATUS. He is presently a full code. He was quite surprised to find that CPR did not work all the time and that there were risks such as rib fractures etc. involved in CPR. He did ask me a number of times what I thought he should do. I recommended that we talk about this again in the near future with his present. He seemed to understand our conversation but yet asked questions that told me he did not really truly comprehend. Shortness of breath definitely improving Echo was reassuring for preserved systolic function. Lower extremity edema?he is diuresing which is great he may benefit from some teds, or other compression stockings etc. to help keep the edema out of his legs. 1 thing was certain is that he does not like being in pain. He mentioned this over and over again that he does not want to be in pain and he wants to be comfortable. Bronchitis presently being treated Thank you very much for this consult. I think it would be good to see Sav outpatient with his so that we can better ascertain what he would want regarding CPR Review of Systems Narrative: Sav states that he is not in pain and he does not like to be in pain. He no longer has chest pain but he did prior to admission. He does not have shortness of breath when he is on his CPAP machine but does have it intermittently. He states that he has kidney problems but is not exactly sure what they are. He also says that people have not been concerned about his kidneys recently. PFSH All Active Problems (Updated 10/30/21 @ 20:10 by Lakesha Gerard MD, [place]) Palliative care patient (Acute) Acute bronchitis (Acute) Chronic renal failure, stage 4 (severe) (Chronic) Acute on chronic heart failure with preserved ejection fraction (Acute) Dyspnea (Acute) Wheezing (Acute) Multisystem organ failure (Acute) Hives (Acute) Cellulitis of foot (Acute 10/17/06) Obesity (Acute 02/11/13) Status post cholecystectomy (Acute) Status post cystoscopy (Acute 02/15/16) Status post tonsillectomy and adenoidectomy (Acute) Status post total bilateral knee replacement (Acute) Obstructive nephropathy (Acute) Moderate pulmonary arterial systolic hypertension (Chronic) Metabolic acidosis with respiratory acidosis (Acute) Complicated UTI (urinary tract infection) (Acute) Sepsis (Acute) Obstructive uropathy (Acute) Discharge planning issues (Acute) Fever (Acute) Chronic anticoagulation (Chronic) Bladder stone (Chronic 02/14/16) Carpal tunnel syndrome (Chronic) Generalized osteoarthrosis (Chronic) Hiatal hernia (Chronic) Obesity (Chronic 02/11/13) Polyp of colon (Chronic) Rosacea (Chronic) Sexual function problem (Chronic) Constipation (Chronic) DVT prophylaxis (Acute) CHF (congestive heart failure) (Chronic) Obesity, Class III, 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 Daughter No problems noted. Social History Smoking/Tobacco Use Status: Never Smoking risk assessment performed?: Yes Alcohol Intake: never Drug use: Never Substance use type: does not use Household members: spouse Pets and animals: No What type of physical activity do you participate in: none Special amor needs: No Do you feel safe at home: Yes Do you feel safe in your relationship?: Yes Exam Narrative Exam Narrative: Sav is lying in bed. He looks comfortable. He had difficulty answering questions. Many times he would ask a question and then reask it a few minutes later. His heart was irregular. Lungs diminished lung sounds especially along the bases. There were wheezes in all lung trevino. his abdomen was soft. His legs were blue and had edema. Results Last Vital Signs Temp 98.1 F 10/30/21 15:30 Pulse 77 10/30/21 16:18 Resp 21 10/30/21 15:30 BP 117/74 10/30/21 15:30 Pulse Ox 92 10/30/21 15:30 Laboratory Tests 10/29/21 10/30/21 10/30/21 06:00 06:21 06:21 Hct 31.4 L Potassium 3.1 L Creatinine 2.7 H Magnesium 2.5 H Echo: Conclusion This is a technically limited study Left Ventricle : The left ventricle is normal size. The left ventricular systolic function is normal. The left ventricular ejection fraction is within the normal range. There is normal left ventricular wall thickness. There is normal LV segmental wall motion. The left ventricular diastolic function is normal. LVEF is 55%. Right Ventricle : Right ventricle is not well visualized. Right ventricular systolic function could not be assessed. There was not enough TR to evaluate RVSP Atria : Left atrium is moderately dilated. Right atrium is moderately dilated. Great Vessels : The aortic root is normal in size. The ascending aorta is moderately dilated. IVC is normal in size and collapses >50% with inspiration. Compared to study from 2019, there is no significant change though the current study was unable to estimate RVSP. Labs Result diagrams: 10/30/21 06:21 10/30/21 06:21 Labs: Laboratory Results - last 24 hr 10/30/21 10/30/21 10/30/21 06:21 06:21 06:21 WBC 11.00 H RBC 3.61 L Hgb 9.6 L Hct 31.4 L MCV 87.0 MCH 26.6 L MCHC 30.6 L RDW 16.8 H Plt Count 193 MPV 9.8 Immature Gran % 0.6 Neutrophils % 76.1 Lymphocytes % 16.4 Monocytes % 6.8 Eosinophils % 0.0 Basophils % 0.1 Nucleated RBC % 0 Absolute Neutrophils 8.37 H Absolute Lymphocytes 1.80 Absolute Monocytes 0.75 Absolute Eosinophils 0.00 Absolute Basophils 0.01 PT 13.7 H D INR 1.4 H D Sodium 141 Potassium 3.1 L Chloride 104 Carbon Dioxide 27.9 Anion Gap 9.1 BUN 45 H Creatinine 2.7 H Estimated GFR/1.73 m2 22.74 Glucose 176 H Calcium 9.4
[2021-10-30] MEDS: Furosemide 100 MG/10 ML VIAL 60 MG IVP (17:16)
[2021-10-30] MEDS: Normal Saline Flush 10 ML SYR IVP (17:17)
--- NOTE | 2021-10-30 18:25 | PDOC.CMPRO ---
- If Service Date Differs Date of service: 10/30/21 Time of Service: 18:30 Care Management Progress Note S/O: Sav was sitting up in his chair when CM met with him. He reported that he is feeling better today. Per report, Cardiology recommended to continue his current treatment for acute on chronic CHF, and they will follow him outpatient. His weight is down 12kg from admission. He may be ready for discharge in a day or two, depending on his progress. CM will continue to follow. A: Sav is an 81 year old male admitted to [facility] on 10/28/21 with SOB, UTI. P: Anticipate Sav will return home when ready per MD with new orders for [facility] RN/PT/OT to support his in his transition home. He will follow up with his PCP and plan of care as prescribed. He will transport via private vehicle with his . CM will continue to follow.
[2021-10-30] MEDS: Acetaminophen 325 MG TAB PO (20:11)
[2021-10-30] MEDS: Warfarin 5 MG TAB PO (20:12)
[2021-10-30] MEDS: Pravastatin 40 MG TAB PO (20:12)
[2021-10-30] MEDS: Tamsulosin 0.4 MG CAPCR PO (22:16)
[2021-10-31] VITALS (7 sets, daily range): BP systolic 117–123; BP diastolic 74–78; PULSE 70–82; RESP 4–21; TEMP 36.7; O2SAT 92–95
[2021-10-31 07:10] LABS: Abs Immature Grans 0.09 10^3/uL (0.0-0.06); Absolute Basophil Count 0.01 10^3/uL (0.0-0.2); Absolute Eosinophil Count 0.01 10^3/uL (0.0-0.7); Absolute Lymphocyte Count 2.14 10^3/uL (1.2-3.4); Absolute Monocyte Count 0.84 10^3/uL (0.1-0.8); Absolute Neutrophil Count 7.38 10^3/uL (1.2-6.7); Basophils % 0.1; Eosinophils % 0.1; HCT 33.1 % (40.0-50.0); HGB 9.9 g/dL (13.5-17.5); Immature Grans % 0.9; Lymphocytes % 20.4; MCH 26.4 pg (27.0-33.0); MCHC 29.9 % (32.0-36.0); MCV 88.3 fL (80-95); MPV 9.4 fL (8.0-11.0); Neutrophils % 70.5; Nucleated RBC 0 %; Platelet Count 197 10^3/uL (130-400); RBC 3.75 10^6/uL (4.36-5.78); RDW 16.6 % (11.8-14.1); RDW-SD 53.8 fL; WBC 10.47 10^3/uL (4.4-10.8)
[2021-10-31 07:24] LABS: INR 1.5 (0.9-1.1); Prothrombin Time 14.6 sec (9.3-11.0)
[2021-10-31 07:34] LABS: Anion Gap 7.4 mmol/L (3-11); BUN 54 mg/dL (7-18); C-Reactive Protein 0.57 mg/dL (0.0-0.3); CO2 28.6 mmol/L (21.0-32.0); CREATININE 2.7 mg/dL (0.70-1.30); Calcium 9.7 mg/dL (8.5-10.1); Chloride 104 mmol/L (98-107); Estimated GFR 22.74 (mL/min/1.73m2); Glucose 174 mg/dL (74-106); Magnesium 2.6 mg/dL (1.8-2.4); NT-proBNP 2915 pg/mL (<300); Potassium 3.8 mmol/L (3.5-5.1); Sodium 140 mmol/L (136-145)
[2021-10-31] MEDS: Albuterol/Ipratropium 3 ML UPD VIAL UPD ×2 (09:28→13:01)
[2021-10-31] MEDS: Furosemide 100 MG/10 ML VIAL 60 MG IVP (09:28)
[2021-10-31] MEDS: Polyethylene Glycol 3350 17 GM PACKET PO (09:34)
[2021-10-31] MEDS: Omeprazole 20 MG CAPCR PO (09:35)
[2021-10-31] MEDS: Potassium Chloride 10 MEQ TABCR PO (09:35)
[2021-10-31] MEDS: guaiFENesin 600 MG TABCR 1200 MG PO (09:35)
[2021-10-31] MEDS: Metoprolol 50 MG TAB PO (09:35)
[2021-10-31] MEDS: Multivitamin TAB 1 TAB PO (09:36)
[2021-10-31] MEDS: Docusate Sodium 100 MG CAP PO (09:36)
[2021-10-31] MEDS: amLODIPine 5 MG TAB PO (09:36)
[2021-10-31] MEDS: Amoxicillin 875/Clav. 125 TAB PO (09:36)
[2021-10-31] MEDS: predniSONE 20 MG TAB 40 MG PO (09:36)
[2021-10-31] MEDS: Normal Saline Flush 10 ML SYR IVP (09:37)
[2021-10-31] MEDS: Insulin Aspart 300 UNITS/3 ML PEN SC ×4 (09:37→12:55)
[2021-10-31] MEDS: Nystatin POWDER 60 GM JAR TP (09:40)
--- NOTE | 2021-10-31 10:41 | PT.INDS ---
Date of service: 10/31/21 Time of Service: 10:41 PT Notes Visit Reasons: Wheezing,Shortness of Breath Physical Therapy Inpatient Discharge Summary Date: 10/31/2021 Dates of service: 10/30/2021 and 10/31/2021 Referring Doctor: Mirta Grossman NP PT Orders: PT CONSULT: Limited ability Precautions: Standard, fall precautions, activity as tolerated. Patient Profile/Admitting Diagnosis: History of Present Illness Chief Complaint: dyspnea Narrative: 81-year-old white male non-smoker with type 2 diabetes mellitus, essential hypertension, LUCAS treated with CPAP, no formal diagnosis of congestive heart failure but takes diuretics regularly., Chronic atrial fibrillation rate control with metoprolol and chronically anticoagulated with warfarin who presented emergency department with dyspnea that began morning along with a cough that is been minimally productive of whitish mucus with occasional yellowish coloration. No associated fever chills rigors. Has had some chest pain with the coughing. He has chronic bilateral leg edema. He is usually taking Lasix 60 mg twice a day. He has chronic kidney disease with a baseline creatinine of around two. PMHX: PFSH All Active Problems (Updated 10/28/21 @ 08:47 by Robert Traore) Acute bronchitis (Acute) Chronic renal failure, stage 4 (severe) (Chronic) Acute on chronic heart failure with preserved ejection fraction (Acute) Dyspnea (Acute) Wheezing (Acute) Multisystem organ failure (Acute) Hives (Acute) Cellulitis of foot (Acute 10/17/06) Obesity (Acute 02/11/13) Status post cholecystectomy (Acute) Status post cystoscopy (Acute 02/15/16) Status post tonsillectomy and adenoidectomy (Acute) Status post total bilateral knee replacement (Acute) Obstructive nephropathy (Acute) Moderate pulmonary arterial systolic hypertension (Chronic) Metabolic acidosis with respiratory acidosis (Acute) Complicated UTI (urinary tract infection) (Acute) Sepsis (Acute) Obstructive uropathy (Acute) Discharge planning issues (Acute) Fever (Acute) Chronic anticoagulation (Chronic) Bladder stone (Chronic 02/14/16) Carpal tunnel syndrome (Chronic) Generalized osteoarthrosis (Chronic) Hiatal hernia (Chronic) Obesity (Chronic 02/11/13) Polyp of colon (Chronic) Rosacea (Chronic) Sexual function problem (Chronic) Constipation (Chronic) DVT prophylaxis (Acute) CHF (congestive heart failure) (Chronic) Obesity, Class III, 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) UTI (urinary tract infection) (Acute) Medical History Atrial fibrillation BPH (benign prostatic hyperplasia) Diabetes mellitus type 2 in obese Essential hypertension, benign GERD (gastroesophageal reflux disease) Hyperlipidemia Nephrolithiasis Obesity hypoventilation syndrome LUCAS on CPAP Surgical History Cholecystectomy (~1985) Colonoscopy - MAC (~2002) Replacement of total knee joint B/L Tonsillectomy and adenoidectomy Social History/Home Situation: Lives with his in a multilevel home. Very to not utilize the upstairs of their dwelling and live primarily in the first floor. 2 steps with hand railing into the dwelling. Equipment Owned/DME: Cane in front wheeled walker. Patient states he uses a cane has baseline functional mobility. Subjective: Agreeable to PT session. Hopeful about going home today when cleared by MD. Objective: General Observation: Catheter, IV ports in right upper extremity. Patient is right-hand dominant Mental Status: Alert and oriented x3 Pain: 0/10 Vital Signs: Monitored via telemetry ROM: Right Upper Extremity: Glenohumeral joint flexion 110 degrees, 115 active assisted with pain at endrange, abduction 75 degrees, external rotation 25 degrees with arm by side. Elbow flexion and extension within normal limits, wrist range of motion within normal limits. Left Upper Extremity: Glenohumeral joint flexion and abduction 10 degrees limited due to pain. External rotation with arm by side 0 degrees. Elbow flexion and extension within normal limits, wrist range of motion within normal limits. Right Lower Extremity: Hip, knee and ankle range of motion active within functional limits pain-free Left Lower Extremity: Hip, knee and ankle range of motion active within functional limits pain-free. Strength: Right Upper Extremity: 4/5 glenohumeral joint flexion, abduction, bicep, tricep. 4 -/5 external rotation. 4/5 internal rotation. 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 Left Upper Extremity: Unable to test left shoulder secondary to pain. Bicep and tricep 4/5. 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 Right Lower Extremity: 4+/5 throughout Left Lower Extremity: 4+/5 throughout Sensation: Intact sensation bilateral lower extremities to light touch Bed Mobility/Transfers: Sit to stand: Supervision with FWW Stand to sit: Supervision with FWW Gait: Able to tolerate up to 250 feet x 2 with level surface ambulation using front wheeled walker with full weightbearing requiring standby assist with mild shortness of breath and increased toeing on the right requiring moderate verbal cueing to prevent her right foot from hitting the right walker hind leg. Stairs: Able to negotiate 6 x 4 inch steps while holding onto 1 rail with 1 hand and single-point cane with the other hand requiring standby assist with step to gait pattern with minimal shortness of breath.Balance: Static Sitting: Good Dynamic Sitting: Good Static Standing: Normal Dynamic Standing: Fair Assessment: Patient demonstrates meaningful functional mobility improvement requiring only standby assist to supervision for all mobility ADL performance using front wheeled walker. Goals: Goals X1 week 1. Supine-Sit: Independent NOT MET 2. Sit-Supine: Independent NOT MET 3. Sit-Stand: Independent NOT MET 4. Stand-Sit: Independent NOT MET 5. Bed-Chair: Independent NOT MET 6. Chair-Bed: Independent NOT MET 7. Gait: Greater than or equal to 200 feet with least required assistive device and standby assist NOT MET DISCHARGE RECOMMENDATIONS: Home with services [home health physical therapy] TREATMENT CODE/TIME: 69963 x 24 minutes beginning at 10:41 AM. Thank you for the opportunity to participate in the care of this patient. Madhvai Victoria PT, DPT, CLT [facility] [place], [place]
--- NOTE | 2021-10-31 10:54 | OT.INTREAT ---
Date of service: 10/31/21 Time of Service: 09:50 Occupational Therapy Notes Occupational Therapy Inpatient Treatment Note Date: 10/31/21 PRECAUTIONS: Fall, standard, Full SUBJECTIVE: Pt was sitting in the chair when OT arrived. [place] in place and no IV connected but placed in (R) UE. Pt is agreeable to OT session. OBJECTIVE: PAIN:c/o pain in (L) shoulder which pt states is arthriits DRESSING: sitting in chair with min vc throughout OT educated and trained pt in adaptive equipment including dressing stick, sock aid, long handled shoe horn. He was able to perform this in the sitting position with good technique and don and doff his (B) socks (I) for what he reports the first time in years. He is receptive to education and training for his ADLs. Adaptive equipment was provided to pt at todays session. OT educates pt in energy conservation techniques for ADLS. ASSESSMENT/PLAN: OT feels that pt is making good progress and is receptive to education and training provided to him. OT will continue to progress pt as symptoms allow. TREATMENT CODES/TIME: 80350, 20 minutes (09:50) [facility]
[2021-10-31] MEDS: Warfarin 5 MG TAB PO (11:08)
--- NOTE | 2021-10-31 11:53 | W.PM.DS.N ---
Date of service: 10/31/21 Time of Service: 11:54 DS: Diagnosis Discharge Diagnosis (1) Complicated UTI (urinary tract infection): Start date: 10/31/21 Start time: 12:03 Status: Acute Asessment and Plan: urine cx growing citrobacter freundii placed on augmentin will treat for 14 days due to complicated UTI. Treat with Augmentin BID will also finish doxy for COPD in addition to augmentin WBC has normalized (2) Acute on chronic heart failure with preserved ejection fraction: Start date: 10/31/21 Start time: 11:54 Status: Acute Asessment and Plan: Improved, breathing is much better. He can now ambulate without severe SOB Not requiring oxygen. Wt is down 13 kg from admission Will continue home lasix Wt self daily and call PCP if increase of 2-3 lbs in 24-48 hours. He needs a f/u with cardiology echo this admission no changed from 2019, he has severe valve disease and would benefit from bypass surgery F/u with pcp in 1-2 weeks (3) Chronic renal failure, stage 4 (severe): Start date: 10/31/21 Start time: 11:54 Status: Chronic Asessment and Plan: Around baseline (4) Wheezing: Start date: 10/31/21 Start time: 12:04 Status: Chronic Asessment and Plan: Likely cardiac wheezing as he has no SOB, not requiring oxygen (5) Acute bronchitis: Start date: 10/31/21 Start time: 12:05 Status: Resolved Asessment and Plan: Resolved with steroids and aerosolized bronchodilators (6) Palliative care patient: Start date: 10/31/21 Start time: 12:07 Status: Acute Asessment and Plan: Seen by palliative in the hospital and will continue to follow as an outpatient Discussed with Dr. Adames Discharge Plan Disposition Patient Disposition: HOME W/HOME HEALTH SERVICE Condition: Improving Discharge Details Reason For Visit: Wheezing,Shortness of Breath Admit Date/Time: 10/28/21 01:19 Admit Provider: Robert Traore Attending Provider: Robert Traore Primary Care Provider: Ricardo Luis Hospital Course Hospital Course: 81 y.o male admitted to [facility] after presenting with SOB, Work-up in the ER included CBC that showed no leukocytosis with white count 5900. He has a chronic anemia hemoglobin 9.1 g hematocrit 31%. CMP shows chronic renal failure with a BUN of 23 creatinine 2.5 normal LFTs normal troponin I level of less than 0.05. proBNP is elevated at 5300 whereas his last BMP in June 08, 2021 was 2400. Procalcitonin was added to his morning labs and is less than 0.1. Nasal swab was negative for SARS-CoV-2 as well as influenza type a and B and RSV. He has been vaccinated with COVID vaccine x2 but has not received his booster. Chest x-ray was read as showing multifocal infiltrates and/or edema and mild cardiomegaly similar to previous exams. ECG shows atrial fibrillation slow rate of 49 bpm with no acute ischemic ST or T wave changes. He was asked to be admitted for further management. He was shown to have CHF, clinical he had exacerbation of COPD and treated with steroids and duonebs. Doxy added d/t sputum production. He was also found to have UTI growing citor bacter sensitive to augmentin. His white count trending down. After 3 days of lasix IVP breathing improved. he is no longer SOB. Swelling improved. +1 around the ankles. He feels well enough to home. He was evaluated by PT and they recommend PT. He will be getting HH PT/OT nursing and [employer]. He will f/u with cardiology and pcp as above. Home Meds and New Rx's Prescriptions: New prednisone 20 mg Tablet 40 mg PO DAILY Qty: 3 RF: 0 amoxicillin-pot clavulanate 875-125 mg Tablet 1 tab PO BID Qty: 25 RF: 0 guaifenesin [Mucinex] 600 mg Tablet Extended Release 12hr 1,200 mg PO BID Qty: 10 RF: 0 doxycycline hyclate 100 mg capsule 100 mg PO BID Qty: 10 RF: 0 Continued multivitamin [Daily Multiple] 1 EACH tablet 1 ea PO DAILY RF: 0 (DME) blood-glucose meter [Aquicoreuch Ultra2 Meter] 1 EACH kit 1 ea Miscellaneous DAILY Qty: 1 RF: 0 omeprazole 20 MG capsule,delayed release(DR/EC) 20 mg PO DAILY RF: 0 (DME) OneTouch Ultra Test strip 1 ea Miscellaneous DAILY Qty: 90 RF: 3 (DME) lancets [OneTouch UltraSoft Lancets] misc 1 ea Miscellaneous DAILY Qty: 90 RF: 4 furosemide 20 mg tablet 60 mg PO BID Qty: 540 RF: 3 amlodipine 5 mg tablet 5 mg PO DAILY Qty: 90 RF: 4 warfarin 5 mg tablet 5 mg PO DAILY Qty: 180 RF: 6 metoprolol tartrate 100 mg tablet 50 mg PO BID Qty: 60 RF: 8 potassium chloride [Klor-Con M10] 10 mEq tablet,ER particles/crystals 10 meq PO DAILY Qty: 90 RF: 3 pravastatin 40 mg tablet 40 mg PO QPM Qty: 90 RF: 3 glipizide 5 mg tablet 10 mg PO DAILY Qty: 180 RF: 3 tamsulosin 0.4 mg capsule 0.4 mg PO HS Qty: 90 RF: 3 acetaminophen [Tylenol] 325 mg Tablet 650 mg PO Q4H PRN PRNQty: 0 RF: 0 sodium bicarbonate 325 mg Tablet 325 mg PO BID PRNRF: 0 docusate sodium [Colace] 100 mg capsule 100 mg PO DAILY RF: 0 Discharge Instructions Instructions: Heart Failure (DC), Aortic Stenosis (DC), Aortic Regurgitation (DC), Urinary Tract Infection in Men (DC), Chronic Lung Disease and Infection Prevention (DC), Aortic Valve Replacement (GEN) Additional Instructions: Weigh yourself daily, if you have greater than a 2-3 lb wt gain in 24-48 hours call your PCP Follow up with cardiology as scheduled. The soonest we could get you in was Dec 05. Follow up with Dr. Luis on 11/14 Continue antibiotics as prescribed, Eat a yogurt daily or take a probiotic. Stand Alone Forms: Nursing Discharge Form Referrals: Ricardo Luis DO [Primary Care Provider] - 11/14/21 9:20 am Alesia Baca MD [ [facility] STAFF PHYSICIAN] - 12/05/21 9:40 am Activity:: Activity as Tolerated Equipment/Supplies:: No Equipment Needed Diet:: Low Sodium Discharge Orders Discharge Orders: Discharge Order (Routine); Ordered 10/31/21 Ordered By: Mirta Grossman DS: Summary Time Spent with Patient providing and/or coordinating discharge services: Less than 30 minutes Status at Discharge Functional status at discharge: uses cane/walker Overall status at discharge: patient is progressing back to baseline Mental Status: mental status grossly normal Speech and Movement: speech and movement normal Mood: congruent mood Affect: normal affect Exam Narrative Exam Narrative: Morbidly obesemale alert and oriented to person place time circumstance sitting up in chair. HEENT is otherwise unremarkable. Neck is obese difficult to assess for JVD due to his obesity. He has normal carotid pulses no bruits Lungs rhonchi to lower bases, no wheezing or crackles. Heart Irregularly irregular Abdomen is obese soft nontender with normal active bowel sounds. Because of his obesity is difficult to assess for organomegaly but there is no overt masses and no audible bruits. Lower extremities with 2+ pitting edema bilaterall around ankles improving with bronze stasis dermatitis skin changes bilaterally no open sores. He has normal pedal pulses. He has a lack of hair over the dorsum of his feet. Neuro exam grossly intact no focal motor deficits. Sensory is intact to light touch. Psych Mental Status: mental status grossly normal Speech and Movement: speech and movement normal Mood: congruent mood Affect: normal affect DS: Data Vitals/I&O Vitals and I&O: Vital Signs Temperature 36.7 C 10/31/21 08:10 Temperature Source Tympanic 10/31/21 08:10 Pulse 70 10/31/21 08:10 Pulse Rhythm Regular 10/31/21 05:13 Pulse 52 L 10/28/21 01:40 Respiratory Rate 18 10/31/21 08:10 Respiratory Effort Non-Labored 10/31/21 05:13 Respiratory Depth Normal 10/31/21 05:13 Respiratory Pattern Normal 10/31/21 05:13 Blood Pressure 123/78 10/31/21 08:10 Blood Pressure Mean 87 10/28/21 01:30 Blood Pressure Position Sitting 10/27/21 23:08 Pulse Oximetry 95 10/31/21 08:10 Oxygen Delivery Method Room Air 10/31/21 08:10 Oxygen Flow Rate 0 10/31/21 08:10 Fraction of Inspired Oxygen (FIO2) 21 10/31/21 10:49 Pain Level 0 10/31/21 08:10 Comment 10/29/21 23:26 Intake & Output 10/30/21 10/30/21 10/31/21 11:59 23:59 11:59 Intake Total 450 / 1050 600 / 1050 Output Total 3475 / 4775 1300 / 4775 1000 / 1000 Balance -3025 / -3725 -700 / -3725 -1000 / -1000 Weight 148.8 kg 147.281 kg Intake: IV 50 / 50 Oral 400 / 1000 600 / 1000 Output: Urine 3475 / 4775 1300 / 4775 1000 / 1000 Other: Urine Color Yellow Yellow Yellow Urine Appearance Cloudy Clear Cloudy Sediment Data Completed and Pending Completed studies during hospitalization [Text1]: EXAM: XR PORTABLE CHEST AP CLINICAL HISTORY: cough, sob, r/o acute disease TECHNIQUE: 2D digital imaging was performed of the chest. One image was obtained. An AP view was obtained. COMPARISON: CR XR CHEST 2V PA LATERAL from 04/18/2019 FINDINGS: MEDIASTINUM: Normal. HEART: Stable cardiomegaly. PULMONARY VASCULATURE: Normal. LUNGS: There may be small infiltrates in the lung bases bilaterally. PLEURAL SPACE: No pleural effusion or pneumothorax. BONE:Within normal limits for the patient's age. OTHER FINDINGS:Normal. IMPRESSION: Question of small bilateral basilar infiltrates. Exam(s) PROCEDURE INFORMATION: Exam: XR Chest Exam date and time: 10/27/2021 10:54 PM Age: 81 years old Clinical indication: Other: Cough, SOB, R/O acute disease TECHNIQUE: Imaging protocol: XR of the chest. Views: 1 view. COMPARISON: CR XR CHEST 2V PA LATERAL 04/18/2019 10:28 AM FINDINGS: Tubes, catheters and devices: Monitoring wires present. Lungs: Patchy airspace opacity noted in both lungs, new from previous and greatest at the lung bases. Pleural spaces: Unremarkable. No pleural effusion. No pneumothorax. Heart/Mediastinum: Mild cardiomegaly noted, similar to previous. Bones/joints: Unremarkable. IMPRESSION: Multifocal infiltrates and/or edema. Conclusion This is a technically limited study Left Ventricle : The left ventricle is normal size. The left ventricular systolic function is normal. The left ventricular ejection fraction is within the normal range. There is normal left ventricular wall thickness. There is normal LV segmental wall motion. The left ventricular diastolic function is normal. LVEF is 55%. Right Ventricle : Right ventricle is not well visualized. Right ventricular systolic function could not be assessed. There was not enough TR to evaluate RVSP Atria : Left atrium is moderately dilated. Right atrium is moderately dilated. Great Vessels : The aortic root is normal in size. The ascending aorta is moderately dilated. IVC is normal in size and collapses >50% with inspiration. Compared to study from 2019, there is no significant change though the current study was unable to estimate RVSP. Labs on day of discharge: Labs from last 24 hours 10/31/21 10/31/21 10/31/21 06:40 06:40 06:40 WBC 10.47 RBC 3.75 L Hgb 9.9 L Hct 33.1 L MCV 88.3 MCH 26.4 L MCHC 29.9 L RDW 16.6 H Plt Count 197 MPV 9.4 Immature Gran % 0.9 Neutrophils % 70.5 Lymphocytes % 20.4 Monocytes % 8.0 Eosinophils % 0.1 Basophils % 0.1 Nucleated RBC % 0 Absolute Neutrophils 7.38 H Absolute Lymphocytes 2.14 Absolute Monocytes 0.84 H Absolute Eosinophils 0.01 Absolute Basophils 0.01 PT 14.6 H INR 1.5 H Sodium 140 Potassium 3.8 D Chloride 104 Carbon Dioxide 28.6 Anion Gap 7.4 BUN 54 H Creatinine 2.7 H Estimated GFR/1.73 m2 22.74 Glucose 174 H Calcium 9.7 Magnesium 2.6 H C-Reactive Protein 0.57 H NT-Pro-B Natriuret Pep 2915 H PFSH All Active Problems Palliative care patient (Acute) Chronic renal failure, stage 4 (severe) (Chronic) Acute on chronic heart failure with preserved ejection fraction (Acute) Dyspnea (Acute) Wheezing (Chronic) Multisystem organ failure (Acute) Hives (Acute) Cellulitis of foot (Acute 10/17/06) Obesity (Acute 02/11/13) Status post cholecystectomy (Acute) Status post cystoscopy (Acute 02/15/16) Status post tonsillectomy and adenoidectomy (Acute) Status post total bilateral knee replacement (Acute) Obstructive nephropathy (Acute) Moderate pulmonary arterial systolic hypertension (Chronic) Metabolic acidosis with respiratory acidosis (Acute) Complicated UTI (urinary tract infection) (Acute) Sepsis (Acute) Obstructive uropathy (Acute) Discharge planning issues (Acute) Fever (Acute) Chronic anticoagulation (Chronic) Bladder stone (Chronic 02/14/16) Carpal tunnel syndrome (Chronic) Generalized osteoarthrosis (Chronic) Hiatal hernia (Chronic) Obesity (Chronic 02/11/13) Polyp of colon (Chronic) Rosacea (Chronic) Sexual function problem (Chronic) Constipation (Chronic) DVT prophylaxis (Acute) CHF (congestive heart failure) (Chronic) Obesity, Class III, 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 Daughter No problems noted. Social History Smoking/Tobacco Use Status: Never Smoking risk assessment performed?: Yes Alcohol Intake: never Drug use: Never Substance use type: does not use Household members: spouse Pets and animals: No What type of physical activity do you participate in: none Special amor needs: No Do you feel safe at home: Yes Do you feel safe in your relationship?: Yes
--- NOTE | 2021-10-31 12:54 | PDOC.HHF2F ---
Home Health Certification Home Health Certification: 1. Encounter Date and Reason I certify that Sav Winkler was seen by Mirta Grossman on 10/31/21 and that I had a [id number] encounter with this patient that meets the physician face to face encounter requirements. 2. Clinical Findings Supporting Skilled Need and Homebound Status I certify that home health services are medically necessary, include either intermittent nursing home and/or physical/speech therapy, and that this patient is homebound in that absences from the home require considerable and taxing effort and are infrequent or of short duration, or are attributable to the need to receive medical care. [X] (a) Attached documentation from encounter provides clinical findings supporting skilled need and homebound status (including what assistance patient requires to leave the home). The encounter with the patient was in whole, or in part, for the following medical condition, which is the primary reason for home health care: Wheezing,Shortness of Breath Residential: Patient would benefit from nursing services for daily wt checks med administration, CHF continuing education, etc Physical Therapy: Patient would benefit for continued strength and gait training and balance, he would also benefit from OT for improved adls Patient would benefit from [employer] for more resources in the community to help with chronic health Homebound: 3. Certification and Authentication I certify that I composed the above information based on my clinical judgement relating to this patient's medical condition and, if applicable, clinical findings communicated to me by the NPP or inpatient physician who performed the Home Health Referral. All further orders will be obtained through ___Luba Luis___(Community Based Physician - PCP)
--- NOTE | 2021-10-31 18:30 | PDOC.CMDIS ---
- If Service Date Differs Date of service: 10/31/21 Time of Service: 18:30 LACE Index Scoring Tool - Questions: Length of Stay (in days): 3 Acuity (Admit via E.D.?): Yes Comorbidities: Congestive Heart Failure, Liver or Renal Disease E.D. Visits: 3 - Answers: Total Score: 14 Risk of Readmission: High Risk Care Management Discharge Reason for Hospitalization: Wheezing, SOB Discharge Plan: Sav will return home today with new orders for RN, PT, OT, APPLIANCE REPAIRER. His will drive him home via private vehicle. He will follow up with Cardiology, his PCP, and his discharge plan of care. He is happy to be going home. Patient/Family Education Needs: Review discharge instructions regarding medications and activity, discussion of self care needs including ask me three and goals of care. Services Needed at Discharge: Home Health Care Services (RN, PT, OT, APPLIANCE REPAIRER)
== END 2021-10-31 15:59 | disposition home health service (06) | DRG 291 ==
LOC: ER 10-28 02:08 → MS 10-28 02:33
PROVIDERS: Nurse Practitioner Family; Physician Assistant; Admitting Provider Internal Medicine; Emergency Provider Emergency Medicine; PCP Emergency Medicine; Visit Provider Internal Medicine
DX: I13.0 Hypertensive heart and chronic kidney disease with heart failure and stage 1 through stage 4 chronic kidney disease, or unspecified chronic kidney disease (principal); I50.33 Acute on chronic diastolic (congestive) heart failure; N18.4 Chronic kidney disease, stage 4 (severe); Z68.41 Body mass index [BMI] 40.0-44.9, adult; I48.11 Longstanding persistent atrial fibrillation; E66.2 Morbid (severe) obesity with alveolar hypoventilation; N30.01 Acute cystitis with hematuria; J44.1 Chronic obstructive pulmonary disease with (acute) exacerbation; J44.0 Chronic obstructive pulmonary disease with (acute) lower respiratory infection; E11.22 Type 2 diabetes mellitus with diabetic chronic kidney disease; J20.9 Acute bronchitis, unspecified; Z79.01 Long term (current) use of anticoagulants; D64.9 Anemia, unspecified; I27.20 Pulmonary hypertension, unspecified; M15.9 Polyosteoarthritis, unspecified; K44.9 Diaphragmatic hernia without obstruction or gangrene; Z20.822 Contact with and (suspected) exposure to COVID-19
CPT/HCPCS: 36415; 80048; 80053; 80061; 84145; 87077; 87635; 87637; 93005; 93306; 94640; 96365; 96368; 96374; 97162; 97166; 97530; 97535; 99285; 71045; 81003; 81015; 82607; 82728; 82746; 83036; 83540; 83550; 83735; 83880; 84443; 84484; 85025; 85610; 86140; 87070; 87086; 87186; 87205; 93010; 94660; 99223; 99232; 99238; J0696; J1940; J2930; J7512; J7613; J7620

== ENCOUNTER → 2021-10-30 07:44 | Outpatient (BNVA) | payer OTHER, SELFPAY | PROVIDERS: PCP Emergency Medicine; Referring Provider Emergency Medicine; Visit Provider Internal Medicine Cardiovascular Disease | DX: R69 Illness, unspecified (principal) ==

== ENCOUNTER → 2021-11-16 13:25 | Outpatient (BNVA) | payer OTHER, SELFPAY | PROVIDERS: PCP Emergency Medicine; Referring Provider Emergency Medicine; Visit Provider Surgery | DX: L98.8 Other specified disorders of the skin and subcutaneous tissue (principal); L85.8 Other specified epidermal thickening; I48.11 Longstanding persistent atrial fibrillation | CPT/HCPCS: 17110; 99213; 99242 ==

== ENCOUNTER 2021-11-19 13:22 | Emergency (ER) | payer OTHER, SELFPAY ==
[2021-11-19] VITALS (40 sets, daily range): BP systolic 110–132; BP diastolic 56–81; PULSE 62–94; RESP 13–34; TEMP 36.4–36.6; O2SAT 93–98
--- NOTE | 2021-11-19 13:00 | RT.EKG_ITS ---
APPROVED REPORT Exam: Resting ECG Reason for Exam: SOB Patient Location: E HR:77 bpm ECG Measurements Heart Rate 77 AXIS [place] [id number] P [id number] QRSd 107 QRS 14 QT 436 T 7 QTc 493 Conclusion Atrial fibrillation...V-rate 66- 98, irreg A-activity Low voltage, precordial leads...precordial leads <1.0mV Nonspecific repolarization abnormalities...ST dep, T neg, 2-3 leads. Afib. No STEMI. I have reviewed and interpreted ECG and agree with software generated interpretation.
--- NOTE | 2021-11-19 13:45 | ED.GENADUL_ITS ---
Discharge Plan Disposition Patient Disposition: HOME Condition: Good Discharge Details Clinical Impression: UTI (urinary tract infection), Peripheral edema Primary Care Provider: Ricardo Luis ED Provider: Ophelia Gleason Home Meds and New Rx's Prescriptions: Continued multivitamin [Daily Multiple] 1 EACH tablet 1 ea PO DAILY RF: 0 (DME) blood-glucose meter [OneTouch Ultra2 Meter] 1 EACH kit 1 ea Miscellaneous DAILY Qty: 1 RF: 0 omeprazole 20 MG capsule,delayed release(DR/EC) 20 mg PO DAILY RF: 0 (DME) OneTouch Ultra Test strip 1 ea Miscellaneous DAILY Qty: 90 RF: 3 (DME) lancets [OneTouch UltraSoft Lancets] misc 1 ea Miscellaneous DAILY Qty: 90 RF: 4 furosemide 20 mg tablet 60 mg PO BID Qty: 540 RF: 3 amlodipine 5 mg tablet 5 mg PO DAILY Qty: 90 RF: 4 warfarin 5 mg tablet 5 mg PO DAILY Qty: 180 RF: 6 metoprolol tartrate 100 mg tablet 50 mg PO BID Qty: 60 RF: 8 potassium chloride [Klor-Con M10] 10 mEq tablet,ER particles/crystals 10 meq PO DAILY Qty: 90 RF: 3 pravastatin 40 mg tablet 40 mg PO QPM Qty: 90 RF: 3 glipizide 5 mg tablet 10 mg PO DAILY Qty: 180 RF: 3 tamsulosin 0.4 mg capsule 0.4 mg PO HS Qty: 90 RF: 3 acetaminophen [Tylenol] 325 mg Tablet 650 mg PO Q4H PRN PRNQty: 0 RF: 0 sodium bicarbonate 325 mg Tablet 325 mg PO BID PRNRF: 0 docusate sodium [Colace] 100 mg capsule 100 mg PO DAILY RF: 0 Discharge Instructions Instructions: Urinary Tract Infection in Men (ED) Additional Instructions: Your work-up today reveals evidence of a urinary tract infection. Your lab work and imaging otherwise is reassuring and shows no evidence of worsening of your significant heart failure. It is suspected that your weight gain could be due to fluid overload. Take your regularly scheduled 60 mg of Lasix this evening before bed. Take an extra 20 mg dose of your Lasix tomorrow morning for a total of 80 mg of Lasix tomorrow morning then resume your 60 mg of Lasix tomorrow evening. You are being sent home with 2 doses of fosfomycin to take every 48 hours. You were given 1 dose of fosfomycin today. Take the next dose on Saturday and the last dose on . Call your primary care doctor's office tomorrow to schedule a follow-up appointment for reevaluation. Return immediately to the emergency department if you develop any worsening or new concerning symptoms such as fever, chest pain, shortness of breath or worsening swelling. Discharge Data Discharge Physician: Ophelia Gleason Medical Decision Making 81-year-old male with a history of morbid obesity, atrial fibrillation on Coumadin, hypertension, hyperlipidemia, GERD, diabetes admitted here last month for complicated UTI and acute on chronic CHF sent home on antibiotics and steroids with improvement of his symptoms until 3 days ago with 10 pound weight gain over 2 days. Patient denies any complaint of chest pain, shortness of breath or fever. Vitals within normal limits. Patient appears comfortable and nontoxic. Oxygen saturation 98 to 100% on room air. He has bilateral lower extremity edema with skin changes consistent with venous stasis versus lymphedema but does not appear consistent with cellulitis. Suspect fluid overload. Will obtain screening labs and chest x-ray. Urinalysis obtained by nursing on arrival notes findings consistent with UTI. His previous urine culture grew Citrobacter and was treated with Augmentin. Labs reviewed. Normal white blood cell count. Hemoglobin 10 which is improved compared to his baseline. Creatinine 2.1 which is his baseline. Troponin 62 which is essentially indeterminate and unlikely cardiac as he denies chest pain, however will obtain a repeat troponin. BNP 2552. He has not taken any of his medications today. We will give 40 mg lasix IV. Repeat troponin normal at 58. Repeat EKG unchanged. Patient continues to deny any chest pain or shortness of breath. BMP 2552. Chest x-ray negative. Discussed with hospitalist regarding initial troponin of 62 and repeat of 58 --would consider these essentially negative. In the setting of unremarkable EKGs and no chest pain, does not appear cardiac and no other acute recommendations. We will plan to treat UTI with fosfomycin as patient's Coumadin was recently held due to supratherapeutic INR with concerns for treating with Levaquin. Patient and agreeable with this plan. Patient was given 1 dose of fosfomycin here and 2 doses of fosfomycin to go. He was given his morning 60mg dose of lasix here and advised to take his evening dose tonight. He was advised to take an extra 20mg Lasix dose tomorrow morning. Advised to follow up with the primary care doctor for re-evaluation. Usual and customary return precautions given prior to discharge. Medical Records Medical records reviewed: Yes I reviewed the patient's medical records. Imaging Data Radiologic Study: Radiologist's impression: XR CHEST 2V PA LATERAL CLINICAL HISTORY: weight gain, fluid overload, r/o chf TECHNIQUE: COMPARISON: CR,XR XR PORTABLE CHEST AP from 10/27/2021 FINDINGS: The heart is enlarged. Lungs appear grossly clear and well expanded. No pleural effusion seen. IMPRESSION: Cardiomegaly, no evidence of acute CHF or other significant process. Lab Data Lab results reviewed: Yes I reviewed the patient's lab results. Labs: 11/19/21 11:45 Urine - Reflex from Ua Urine Culture - Pending Laboratory Tests Range/Units 11/19/21 11/19/21 11/19/21 11:45 13:58 13:58 WBC (4.4-10.8) 10^3/uL 6.25 RBC (4.36-5.78) 10^6/uL 3.88 L Hgb (13.5-17.5) g/dL 10.2 L Hct (40.0-50.0) % 34.1 L MCV (80-95) fL 87.9 MCH (27.0-33.0) pg 26.3 L MCHC (32.0-36.0) % 29.9 L RDW (11.8-14.1) % 15.9 H Plt Count (130-400) 10^3/uL 145 MPV (8.0-11.0) fL 8.9 Immature Gran % 0.2 Neutrophils % 74.2 Lymphocytes % 13.6 Monocytes % 9.4 Eosinophils % 2.4 Basophils % 0.2 Nucleated RBC % % 0 Absolute Neutrophils (1.2-6.7) 10^3/uL 4.64 Absolute Lymphocytes (1.2-3.4) 10^3/uL 0.85 L Absolute Monocytes (0.1-0.8) 10^3/uL 0.59 Absolute Eosinophils (0.0-0.7) 10^3/uL 0.15 Absolute Basophils (0.0-0.2) 10^3/uL 0.01 PT (9.3-11.0) sec INR (0.9-1.1) APTT (21.0-27.5) sec Sodium (136-145) mmol/L 144 Potassium (3.5-5.1) mmol/L 3.8 Chloride (98-107) mmol/L 107 Carbon Dioxide (21.0-32.0) mmol/L 29.3 Anion Gap (3-11) mmol/L 7.7 BUN (7-18) mg/dL 15 Creatinine (0.70-1.30) mg/dL 2.1 H Estimated GFR/1.73 m2 (mL/min/1.73m2) 30.39 Glucose (74-106) mg/dL 176 H Calcium (8.5-10.1) mg/dL 9.6 Magnesium (1.8-2.4) mg/dL 2.0 Total Bilirubin (0.2-1.0) mg/dL 1.1 H AST (15-37) U/L 17 ALT (16-63) U/L 16 Alkaline Phosphatase (46-116) U/L 96 Troponin I (<or=60) ng/L 62 H* NT-Pro-B Natriuret Pep (<300) pg/mL 2552 H Total Protein (6.4-8.2) g/dL 6.9 Albumin (3.4-5.0) g/dL 2.8 L Urine Color (Yellow) Yellow Urine Clarity (Clear) Sl Cloudy Urine pH (5-8) 7.0 Ur Specific [place] (1.005-1.025) 1.025 Urine Protein (Negative) mg/dL >=300 H Urine Ketones (Negative) mg/dL Negative Urine Blood (Negative) Large H Urine Nitrite (Negative) Positive H Urine Bilirubin (Negative) Negative Urine Urobilinogen (Up TO 0.2) EU/dL 0.2 Ur Leukocyte Esterase (Negative) Small H Urine RBC (0-2) HPF 20-50 H Urine WBC (0-5) HPF 10-20 H Ur Epithelial Cells (Negative) HPF Rare Urine Crystals (Negative) HPF Negative Urine Bacteria (Negative) HPF Few Urine Casts (Negative) LPF Negative Urine Mucus (Negative) Negative Ur Culture Indicated? Yes Urine Glucose (Negative) mg/dL Negative Range/Units 11/19/21 11/19/21 17:10 17:10 WBC (4.4-10.8) 10^3/uL RBC (4.36-5.78) 10^6/uL Hgb (13.5-17.5) g/dL Hct (40.0-50.0) % MCV (80-95) fL MCH (27.0-33.0) pg MCHC (32.0-36.0) % RDW (11.8-14.1) % Plt Count (130-400) 10^3/uL MPV (8.0-11.0) fL Immature Gran % Neutrophils % Lymphocytes % Monocytes % Eosinophils % Basophils % Nucleated RBC % % Absolute Neutrophils (1.2-6.7) 10^3/uL Absolute Lymphocytes (1.2-3.4) 10^3/uL Absolute Monocytes (0.1-0.8) 10^3/uL Absolute Eosinophils (0.0-0.7) 10^3/uL Absolute Basophils (0.0-0.2) 10^3/uL PT (9.3-11.0) sec 15.8 H INR (0.9-1.1) 1.6 H APTT (21.0-27.5) sec 22.7 Sodium (136-145) mmol/L Potassium (3.5-5.1) mmol/L Chloride (98-107) mmol/L Carbon Dioxide (21.0-32.0) mmol/L Anion Gap (3-11) mmol/L BUN (7-18) mg/dL Creatinine (0.70-1.30) mg/dL Estimated GFR/1.73 m2 (mL/min/1.73m2) Glucose (74-106) mg/dL Calcium (8.5-10.1) mg/dL Magnesium (1.8-2.4) mg/dL Total Bilirubin (0.2-1.0) mg/dL AST (15-37) U/L ALT (16-63) U/L Alkaline Phosphatase (46-116) U/L Troponin I (<or=60) ng/L 58 NT-Pro-B Natriuret Pep (<300) pg/mL Total Protein (6.4-8.2) g/dL Albumin (3.4-5.0) g/dL Urine Color (Yellow) Urine Clarity (Clear) Urine pH (5-8) Ur Specific [place] (1.005-1.025) Urine Protein (Negative) mg/dL Urine Ketones (Negative) mg/dL Urine Blood (Negative) Urine Nitrite (Negative) Urine Bilirubin (Negative) Urine Urobilinogen (Up TO 0.2) EU/dL Ur Leukocyte Esterase (Negative) Urine RBC (0-2) HPF Urine WBC (0-5) HPF Ur Epithelial Cells (Negative) HPF Urine Crystals (Negative) HPF Urine Bacteria (Negative) HPF Urine Casts (Negative) LPF Urine Mucus (Negative) Ur Culture Indicated? Urine Glucose (Negative) mg/dL ECG Data Attestation: I personally reviewed and interpreted this ECG (s) as follows: Interpretation: #1 -- Rate of 77, afib, no acute ST elevation or depression. #2 -- Rate of 75, afib, no acute ST elevation or depression. HPI General Mode of arrival: EMS . Date/Time Provider Initiated Documentation: 11/19/21 13:41 . Limitations to Documentation: no limitations . Information obtained by: patient . HPI Narrative: Patient is an 81-year-old male with a history of morbid obesity, CHF, atrial fibrillation, diabetes, GERD, hypertension and hyperlipidemia who was admitted here last month for UTI and CHF presents for 10 pound weight gain over the past 2 days. Patient was seen by home health and advised to come to the ER for further evaluation. Patient states he has not changed his diet significantly over the holidays and has been monitoring his weight every day. He does admit to increased swelling in his lower extremities. He denies any fever, cough, chest pain, shortness of breath, abdominal pain, vomiting, diarrhea or urinary symptoms. He was treated with antibiotics and steroids last month which he states he finished completely and felt better until 3 days ago. He states he has not yet received his Covid booster as he had an allergic reaction to the second Covid vaccine with hives. Related Data Home Medications Medication Instructions Recorded Confirmed multivitamin [Daily Multiple] 1 ea PO DAILY 12/11/16 11/19/21 blood-glucose meter [OneTouch #1 kit 02/12/17 11/14/21 Ultra2 Meter] omeprazole 20 mg PO DAILY cap 04/15/18 11/19/21 blood sugar diagnostic #90 strip 12/18/18 12/28/21 lancets #90 ea 11/06/18 11/14/21 acetaminophen [Tylenol] 650 mg PO Q4H PRN PRN #0 tab 04/20/19 11/19/21 furosemide 20 mg tablet 60 mg PO BID #540 tab 01/06/21 11/19/21 amlodipine 5 mg tablet 5 mg PO DAILY #90 tab-cap 02/24/21 11/19/21 warfarin 5 mg tablet 5 mg PO DAILY #180 tab 03/15/21 11/19/21 metoprolol tartrate 100 mg tablet 50 mg PO BID #60 tab 03/24/21 11/19/21 potassium chloride 10 mEq 10 meq PO DAILY #90 tab 06/08/21 11/19/21 tablet,extended release(part/cryst) pravastatin 40 mg tablet 40 mg PO QPM #90 tab 08/14/21 11/19/21 glipizide 5 mg tablet 10 mg PO DAILY #180 tab 08/29/21 11/14/21 tamsulosin 0.4 mg capsule 0.4 mg PO HS #90 cap 08/29/21 11/19/21 docusate sodium [Colace] 100 mg PO DAILY 10/27/21 11/19/21 sodium bicarbonate 325 mg PO BID PRN 10/27/21 11/19/21 Previous Rx's Medication Instructions Recorded blood sugar diagnostic #90 strip 11/04/18 lancets #90 ea 11/06/18 acetaminophen [Tylenol] 650 mg PO Q4H PRN PRN #0 tab 04/20/19 furosemide 20 mg tablet 60 mg PO BID #540 tab 01/06/21 amlodipine 5 mg tablet 5 mg PO DAILY #90 tab-cap 02/24/21 warfarin 5 mg tablet 5 mg PO DAILY #180 tab 03/15/21 metoprolol tartrate 100 mg tablet 50 mg PO BID #60 tab 03/24/21 potassium chloride 10 mEq 10 meq PO DAILY #90 tab 06/08/21 tablet,extended release(part/cryst) pravastatin 40 mg tablet 40 mg PO QPM #90 tab 08/14/21 glipizide 5 mg tablet 10 mg PO DAILY #180 tab 08/29/21 tamsulosin 0.4 mg capsule 0.4 mg PO HS #90 cap 08/29/21 Allergies Allergy/AdvReac Type Severity Reaction Status Date / Time No Known Allergies Allergy Verified 11/16/21 13:29 General Stated Complaint: RespSymp GISSEL: 2 Review of Systems All systems reviewed & are unremarkable except as noted in HPI and below Constitutional Constitutional: Reports as per HPI, Denies chills, Denies fever(s), Reports weakness and Reports weight gain (10 lb over 2 days) Eyes Eyes: Denies blurry vision ENT Ears, Nose, Mouth, and Throat: Denies dizziness, Denies sore throat and Denies throat swelling Cardiovascular Cardiovascular: Denies chest pain and Denies dyspnea Respiratory Respiratory: Denies cough and Denies dyspnea Gastrointestinal Gastrointestinal: Denies abdominal pain, Denies diarrhea and Denies vomiting Genitourinary Genitourinary: Denies hematuria and Denies dysuria Musculoskeletal Musculoskeletal: Denies back pain and Denies numbness Integumentary/Breasts Skin/Breast: Denies lesions and Denies rash Neurologic Neurologic: Denies dizziness, Denies localized weakness, Denies numbness and Reports weakness Allergic/Immunologic Allergic/Immunologic: Denies throat swelling PFSH All Active Problems (Updated 11/19/21 @ 18:47 by Ophelia Gleason DO) UTI (urinary tract infection) (Acute) Peripheral edema (Acute) Palliative care patient (Acute) Chronic renal failure, stage 4 (severe) (Chronic) Acute on chronic heart failure with preserved ejection fraction (Acute) Dyspnea (Acute) Wheezing (Chronic) Multisystem organ failure (Acute) Hives (Acute) Cellulitis of foot (Acute 10/17/06) Obesity (Acute 02/11/13) Status post cholecystectomy (Acute) Status post cystoscopy (Acute 02/15/16) Status post tonsillectomy and adenoidectomy (Acute) Status post total bilateral knee replacement (Acute) Obstructive nephropathy (Acute) Moderate pulmonary arterial systolic hypertension (Chronic) Metabolic acidosis with respiratory acidosis (Acute) Complicated UTI (urinary tract infection) (Acute) Sepsis (Acute) Obstructive uropathy (Acute) Discharge planning issues (Acute) Fever (Acute) Chronic anticoagulation (Chronic) Bladder stone (Chronic 02/14/16) Carpal tunnel syndrome (Chronic) Generalized osteoarthrosis (Chronic) Hiatal hernia (Chronic) Obesity (Chronic 02/11/13) Polyp of colon (Chronic) Rosacea (Chronic) Sexual function problem (Chronic) Constipation (Chronic) DVT prophylaxis (Acute) CHF (congestive heart failure) (Chronic) Obesity, Class III, 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 Daughter No problems noted. Social History Smoking/Tobacco Use Status: Never Smoking risk assessment performed?: Yes Alcohol Intake: never Drug use: Never Substance use type: does not use Household members: spouse Pets and animals: No What type of physical activity do you participate in: none Special amor needs: No Do you feel safe at home: Yes Do you feel safe in your relationship?: Yes Exam Const General: cooperative and no acute distress Nutritional Appearance: obese morbidly obese Orientation: alert, awake and oriented x3 HENMT Head: normal to inspection Face and sinus: normal facial exam Eyes General: appearance normal, both eyes and all related structures EOM: EOM intact bilaterally Neck Neck: normal visual inspection and No submandibular swelling Lymphatic: no lymphadenopathy noted Chest Chest: normal inspection of the chest and no tenderness Resp Effort & Inspection: normal respiratory effort and able to speak in complete sentences Auscultation: clear to auscultation bilaterally Cardio Rate: regular rate Rhythm: regular rhythm GI Inspection: normal to inspection and obesity Palpation: soft, not firm, not rigid and nontender Auscultation: normal bowel sounds Skin General skin exam: no rashes or lesions noted Neuro General: patient alert, patient awake and patient oriented x3 Cognition: normal cognition Speech: speech normal Motor: muscle tone normal throughout Sensory Exam: no sensory deficits noted Extrem General: no calf tenderness bilaterally and no edema Other: Bilateral lower extremity 2+ pitting edema. Rubor of skin appears consistent with venous stasis versus lymphedema. No significant erythema consistent w/ cellulitis. Psych Appearance: grossly normal Mental Status: mental status grossly normal Speech and Movement: speech and movement normal Affect: normal affect Course Vital Signs Vital signs: Vital Signs Temperature 97.5 F L 11/19/21 13:27 Pulse 93 H 11/19/21 13:27 Respiratory Rate 18 11/19/21 13:27 Blood Pressure 130/75 11/19/21 13:27 Pulse Oximetry 98 11/19/21 13:27 Temperature 97.5 F L 11/19/21 13:27 Temperature Source Tympanic 11/19/21 13:27 Pulse 93 H 11/19/21 13:27 Respiratory Rate 18 11/19/21 13:27 Blood Pressure 130/75 11/19/21 13:27 Blood Pressure Position Supine 11/19/21 13:27 Pulse Oximetry 98 11/19/21 13:27 Oxygen Delivery Method Room Air 11/19/21 13:27 Oxygen Flow Rate 0 11/19/21 13:27
[2021-11-19 13:47] LABS: Bilirubin Negative (Negative); Blood Large (Negative); Clarity Sl Cloudy (Clear); Glucose Negative (Negative); Ketones Negative (Negative); Leukocyte Esterase Small (Negative); Nitrite Positive (Negative); Specific Gravity 1.025 (1.005-1.025); Urobilinogen 0.2 EU/dL (Up TO 0.2)
[2021-11-19 13:54] LABS: Bacteria Few HPF (Negative); C & S Indicated? Yes; Casts Negative LPF (Negative); Crystals Negative HPF (Negative); Epithelial Cells Rare HPF (Negative); Mucus Negative (Negative); RBC 20-50 HPF (0-2)
[2021-11-19 14:02] LABS: Abs Immature Grans 0.01 10^3/uL (0.0-0.06); Absolute Basophil Count 0.01 10^3/uL (0.0-0.2); Absolute Eosinophil Count 0.15 10^3/uL (0.0-0.7); Absolute Lymphocyte Count 0.85 10^3/uL (1.2-3.4); Absolute Monocyte Count 0.59 10^3/uL (0.1-0.8); Absolute Neutrophil Count 4.64 10^3/uL (1.2-6.7); Basophils % 0.2; Eosinophils % 2.4; HCT 34.1 % (40.0-50.0); HGB 10.2 g/dL (13.5-17.5); Immature Grans % 0.2; Lymphocytes % 13.6; MCH 26.3 pg (27.0-33.0); MCHC 29.9 % (32.0-36.0); MCV 87.9 fL (80-95); MPV 8.9 fL (8.0-11.0); Monocytes % 9.4; Neutrophils % 74.2; Nucleated RBC 0 %; Platelet Count 145 10^3/uL (130-400); RBC 3.88 10^6/uL (4.36-5.78); RDW 15.9 % (11.8-14.1); WBC 6.25 10^3/uL (4.4-10.8)
[2021-11-19 14:26] LABS: ALT 16 U/L (16-63); AST 17 U/L (15-37); Albumin 2.8 g/dL (3.4-5.0); Alkaline Phosphatase 96 U/L (46-116); Anion Gap 7.7 mmol/L (3-11); BUN 15 mg/dL (7-18); Bilirubin, Total 1.1 mg/dL (0.2-1.0); CO2 29.3 mmol/L (21.0-32.0); CREATININE 2.1 mg/dL (0.70-1.30); Calcium 9.6 mg/dL (8.5-10.1); Chloride 107 mmol/L (98-107); Estimated GFR 30.39 (mL/min/1.73m2); Glucose 176 mg/dL (74-106); Potassium 3.8 mmol/L (3.5-5.1); Sodium 144 mmol/L (136-145); Total Protein 6.9 g/dL (6.4-8.2)
[2021-11-19 14:29] LABS: Troponin I 62 ng/L (<or=60)
[2021-11-19 14:47] LABS: NT-proBNP 2552 pg/mL (<300)
--- NOTE | 2021-11-19 15:00 | DI.RAD_ITS ---
Exam(s) XR CHEST 2V PA LATERAL EXAM: XR CHEST 2V PA LATERAL CLINICAL HISTORY: weight gain, fluid overload, r/o chf TECHNIQUE: COMPARISON: CR,XR XR PORTABLE CHEST AP from 10/27/2021 FINDINGS: The heart is enlarged. Lungs appear grossly clear and well expanded. No pleural effusion seen. IMPRESSION: Cardiomegaly, no evidence of acute CHF or other significant process. RADIATION DOSE DELIVERED: Total DLP
[2021-11-19] MEDS: Furosemide 40 MG/4 ML VIAL IVP (15:26)
[2021-11-19 17:32] LABS: INR 1.6 (0.9-1.1); PTT Activated 22.7 sec (21.0-27.5); Prothrombin Time 15.8 sec (9.3-11.0)
[2021-11-19 17:34] LABS: Troponin I 58 ng/L (<or=60)
--- NOTE | 2021-11-19 17:45 | RT.EKG_ITS ---
APPROVED REPORT Exam: Resting ECG Reason for Exam: abnormal troponin Patient Location: E HR:75 bpm ECG Measurements Heart Rate 75 [place] [id number] P [id number] QRSd 101 QRS 27 QT 418 T 20 QTc 469 Conclusion Atrial fibrillation...? atrial activity Low voltage, extremity and precordial leads...extremity<0.5mV, precordial<1.0mV. Afib. No STEMI. I have reviewed and interpreted ECG and agree with software generated interpretation.
[2021-11-19] MEDS: FUROSEMIDE 40 MG, FUROSEMIDE 20 MG 60 MG PO (19:01)
[2021-11-19] MEDS: Fosfomycin Tromethamine 3 GM PACKET 6 GM PO (19:54)
[2021-11-19] MEDS: Fosfomycin Tromethamine 3 GM PACKET PO (19:54)
== END 2021-11-19 19:53 | disposition home or self-care (01) ==
PROVIDERS: Emergency Provider Physician Assistant; PCP Emergency Medicine
DX: N39.0 Urinary tract infection, site not specified (principal); B96.89 Other specified bacterial agents as the cause of diseases classified elsewhere; R06.02 Shortness of breath; E87.70 Fluid overload, unspecified; R79.89 Other specified abnormal findings of blood chemistry; I13.0 Hypertensive heart and chronic kidney disease with heart failure and stage 1 through stage 4 chronic kidney disease, or unspecified chronic kidney disease; I50.33 Acute on chronic diastolic (congestive) heart failure; N18.4 Chronic kidney disease, stage 4 (severe); E11.22 Type 2 diabetes mellitus with diabetic chronic kidney disease
CPT/HCPCS: 80053; 93005; 96374; 99284; 71046; 81003; 81015; 83735; 83880; 84484; 85025; 85610; 85730; 87086; 93010; J1940; J3490

== ENCOUNTER 2021-11-30 09:14 | Outpatient (CLI) | payer OTHER, SELFPAY | END 2021-11-30 09:34 | PROVIDERS: PCP Emergency Medicine; Visit Provider Family Medicine ==

== ENCOUNTER 2021-12-01 02:50 | Outpatient (CLI) | payer OTHER, SELFPAY ==
--- NOTE | 2021-12-01 06:45 | DI.US_ITS ---
Exam(s) US RENAL EXAM: US RENAL CLINICAL HISTORY: ckd , hx of stone , rule out bladder retention,n18.9 TECHNIQUE: Ultrasound of both kidneys performed using standard protocol. COMPARISON: Prior CT scan 04/18/2019 FINDINGS: RIGHT KIDNEY: Measures 15 cm in length. There is a 6 cm cyst in the superior pole the right kidney, seen on prior C T scan of 2019. Multiple echogenic foci consistent with calculi, these ranging up to 15 millimeters s ize. There appears to be calculus in the proximal right ureter mild dilatation right collecting system abo ve this level. LEFT KIDNEY: Measures 12.5 cm in length. No cysts evident. Also contains echogenic foci consistent with calculi t herein. No hydronephrosis. URINARY BLADDER: Prevoid volume is 1067 cc Postvoid volume is 815 cc No evidence of bladder mass nor diverticuli. Ureterovesical jets: Neither visualized on this study. IMPRESSION: 1. Bilateral nephrolithiasis. There also appears to be a calculus in the proximal right ureter and ipsilateral mild hydronephrosis. Recommend follow-up CT scan. 2. Large pre and postvoid volumes urinary bladder noted. DATA REPOSITORY:
== END 2021-12-01 03:10 ==
PROVIDERS: PCP Emergency Medicine; Visit Provider Family Medicine
DX: N18.9 Chronic kidney disease, unspecified (principal); N20.2 Calculus of kidney with calculus of ureter; R33.9 Retention of urine, unspecified
CPT/HCPCS: 76770

== ENCOUNTER 2021-12-05 08:13 | Outpatient (CLI) | payer OTHER, SELFPAY ==
--- NOTE | 2021-12-05 08:00 | RT.EKG_ITS ---
APPROVED REPORT Exam: Resting ECG Reason for Exam: afib Patient Location: O HR:75 bpm ECG Measurements Heart Rate 75 [place] [id number] P [id number] QRSd 102 QRS 10 QT 424 T 4 QTc 474 Conclusion Atrial fibrillation...V-rate 59- 88, irreg A-activity Low voltage, precordial leads...precordial leads <1.0mV
== END 2021-12-05 08:14 | disposition home or self-care (01) ==
LOC: DI.CARD 08:14
PROVIDERS: PCP Emergency Medicine; Visit Provider Internal Medicine Cardiovascular Disease
DX: I48.91 Unspecified atrial fibrillation (principal); R31.9 Hematuria, unspecified
CPT/HCPCS: 87077; 93010; 87086; 87186

== ENCOUNTER → 2021-12-05 12:46 | Outpatient (BNVA) | payer OTHER, SELFPAY | PROVIDERS: PCP Emergency Medicine; Referring Provider Emergency Medicine; Visit Provider Internal Medicine Cardiovascular Disease | DX: I48.21 Permanent atrial fibrillation (principal); G47.33 Obstructive sleep apnea (adult) (pediatric); N18.9 Chronic kidney disease, unspecified; I27.21 Secondary pulmonary arterial hypertension; I50.810 Right heart failure, unspecified; E11.22 Type 2 diabetes mellitus with diabetic chronic kidney disease | CPT/HCPCS: 93005; 99203; 99214 ==

== ENCOUNTER → 2021-12-05 13:58 | Outpatient (BNVA) | payer OTHER, SELFPAY | PROVIDERS: PCP Emergency Medicine; Referring Provider Emergency Medicine; Visit Provider Urology | DX: R31.9 Hematuria, unspecified (principal); R33.9 Retention of urine, unspecified | CPT/HCPCS: 51702; 81003; 99213 ==

== ENCOUNTER → 2021-12-25 13:30 | Outpatient (BNVA) | payer OTHER, SELFPAY | PROVIDERS: PCP Emergency Medicine; Referring Provider Emergency Medicine; Visit Provider Nurse Practitioner Gerontology | DX: R33.9 Retention of urine, unspecified (principal); R31.9 Hematuria, unspecified; Z46.6 Encounter for fitting and adjustment of urinary device | CPT/HCPCS: 51702; 81003; 99214 ==

== ENCOUNTER 2021-12-25 19:14 | Outpatient (REF) | payer OTHER, SELFPAY ==
[2021-12-25 15:54] LABS: Bilirubin Negative (Negative); Blood Large (Negative); Clarity Turbid (Clear); Glucose Negative (Negative); Ketones Negative (Negative); Leukocyte Esterase Large (Negative); Nitrite Negative (Negative); Urobilinogen 0.2 EU/dL (Up TO 0.2)
[2021-12-25 16:23] LABS: WBC >50 HPF (0-5)
[2021-12-25 16:24] LABS: C & S Indicated? C&S Done As Ordered
== END 2021-12-25 19:15 | disposition home or self-care (01) ==
LOC: LBN 19:14
PROVIDERS: PCP Emergency Medicine; Visit Provider Nurse Practitioner Gerontology
DX: R33.9 Retention of urine, unspecified (principal); R31.9 Hematuria, unspecified
CPT/HCPCS: 87077; 81003; 81015; 87086; 87186

== ENCOUNTER → 2022-01-22 14:29 | Outpatient (BNVA) | payer OTHER, SELFPAY | PROVIDERS: PCP Family Medicine; Referring Provider Family Medicine; Visit Provider Nurse Practitioner Gerontology | DX: R33.8 Other retention of urine (principal); R31.9 Hematuria, unspecified | CPT/HCPCS: 51702 ==

== ENCOUNTER 2022-03-07 03:11 | Outpatient (CLI) | payer OTHER, SELFPAY ==
[2022-03-07 12:30] LABS: Uric Acid 6.4 mg/dL (3.5-7.2)
== END 2022-03-07 03:12 | disposition home or self-care (01) ==
LOC: LBO 03:11
PROVIDERS: Emergency Medicine; PCP Family Medicine; Visit Provider Family Medicine
DX: M79.644 Pain in right finger(s) (principal)
CPT/HCPCS: 36415; 84550

== ENCOUNTER → 2022-03-13 13:51 | Outpatient (BNVA) | payer OTHER, SELFPAY | PROVIDERS: PCP Family Medicine; Referring Provider Family Medicine; Visit Provider Nurse Practitioner Gerontology | DX: R33.8 Other retention of urine (principal); N39.0 Urinary tract infection, site not specified | CPT/HCPCS: 51702 ==

== ENCOUNTER 2022-03-13 17:23 | Outpatient (REF) | payer OTHER, SELFPAY | END 2022-03-13 17:24 | disposition home or self-care (01) | LOC: LBN 17:23 | PROVIDERS: PCP Family Medicine; Visit Provider Nurse Practitioner Gerontology | DX: N39.0 Urinary tract infection, site not specified (principal); R33.8 Other retention of urine | CPT/HCPCS: 87077; 87086; 87186 ==

== ENCOUNTER → 2022-04-03 13:10 | Outpatient (BNVA) | payer OTHER, SELFPAY | PROVIDERS: PCP Family Medicine; Referring Provider Family Medicine; Visit Provider Internal Medicine Cardiovascular Disease | DX: I50.810 Right heart failure, unspecified (principal); G47.33 Obstructive sleep apnea (adult) (pediatric); I48.91 Unspecified atrial fibrillation; I27.21 Secondary pulmonary arterial hypertension | CPT/HCPCS: 99214; 99213 ==

== ENCOUNTER 2022-04-19 17:39 | Outpatient (REF) | payer OTHER, SELFPAY | END 2022-04-19 17:40 | disposition home or self-care (01) | LOC: LBN 17:39 | PROVIDERS: PCP Family Medicine; Visit Provider Family Medicine | DX: E11.9 Type 2 diabetes mellitus without complications (principal) | CPT/HCPCS: 83036 ==

== ENCOUNTER 2022-08-23 12:21 | Outpatient (REF) | payer OTHER, SELFPAY ==
[2022-08-23 13:33] LABS: Anion Gap 12.5 mmol/L (3-11); BUN 31 mg/dL (7-18); CO2 26.5 mmol/L (21.0-32.0); CREATININE 3.4 mg/dL (0.70-1.30); Calcium 9.3 mg/dL (8.5-10.1); Chloride 99 mmol/L (98-107); Glucose 192 mg/dL (74-106); Sodium 138 mmol/L (136-145)
== END 2022-08-23 12:22 | disposition home or self-care (01) ==
LOC: LBN 12:21
PROVIDERS: PCP Family Medicine; Visit Provider Family Medicine
DX: E87.1 Hypo-osmolality and hyponatremia (principal)
CPT/HCPCS: 80048

== ENCOUNTER 2022-08-30 14:01 | Outpatient (REF) | payer OTHER, SELFPAY ==
[2022-08-30 14:51] LABS: Anion Gap 8.3 mmol/L (3-11); BUN 38 mg/dL (7-18); CO2 24.7 mmol/L (21.0-32.0); Calcium 8.9 mg/dL (8.5-10.1); Chloride 106 mmol/L (98-107); Estimated GFR 19.98 (mL/min/1.73m2); Glucose 238 mg/dL (74-106); Potassium 3.1 mmol/L (3.5-5.1); Sodium 139 mmol/L (136-145)
== END 2022-08-30 14:02 | disposition home or self-care (01) ==
LOC: LBN 14:01
PROVIDERS: PCP Family Medicine; Visit Provider Family Medicine
DX: E87.1 Hypo-osmolality and hyponatremia (principal)
CPT/HCPCS: 80048

== ENCOUNTER 2022-12-28 15:54 | Outpatient (REF) | payer MEDICARE, SELFPAY ==
[2022-12-28 16:12] LABS: Bilirubin Negative (Negative); Blood Moderate (Negative); Clarity Cloudy (Clear); Glucose 250 mg/dL (Negative); Ketones Negative (Negative); Leukocyte Esterase Moderate (Negative); Nitrite Positive (Negative); Urobilinogen 0.2 EU/dL (Up TO 0.2); pH 6.5 (5-8)
[2022-12-28 16:32] LABS: Bacteria Moderate HPF (Negative); Epithelial Cells Few HPF (Negative); WBC 20-50 HPF (0-5)
[2022-12-28 16:33] LABS: C & S Indicated? C&S Done As Ordered; Casts Negative LPF (Negative); Crystals Negative HPF (Negative); Mucus Trace (Negative)
== END 2022-12-28 15:55 | disposition home or self-care (01) ==
LOC: LBN 15:54
PROVIDERS: PCP Family Medicine; Visit Provider Family Medicine
DX: N40.1 Benign prostatic hyperplasia with lower urinary tract symptoms (principal)
CPT/HCPCS: 81003; 81015; 87086

== ENCOUNTER 2022-12-31 06:36 | Inpatient (IN) | payer MEDICARE, SELFPAY ==
[2022-12-31] VITALS (86 sets, daily range): BP systolic 101–124; BP diastolic 42–70; PULSE 61–120; RESP 14–40; TEMP 37–37.6; O2SAT 91–99
--- NOTE | 2022-12-31 | DI.US_ITS ---
Exam(s) US RENAL EXAM: US RENAL CLINICAL HISTORY: KENNETH on CKD, UTI. TECHNIQUE: Reardon scale, color and spectral Doppler were used. COMPARISON: US US RENAL from 12/01/2021 FINDINGS: Exam is severely limited by patient body habitus. Renal size in cm: Right: 12.1 left: 10.1 Echogenicity: Normal Hydronephrosis: No Cyst or mass: 5.5 centimeters cyst lateral midpole right kidney. Nephrolithiasis: 1.5 centimeter stone mid left kidney. Bladder: Empty, not visualized. IMPRESSION: 1.5 cm nonobstructing stone mid left kidney. No evidence of hydronephrosis. DATA REPOSITORY:
[2022-12-31 07:24] LABS: Lactate 1.7 mmol/L (0.6-1.4)
[2022-12-31 07:25] LABS: Abs Immature Grans 0.08 10^3/uL (0.0-0.06); Absolute Basophil Count 0.03 10^3/uL (0.0-0.2); Absolute Eosinophil Count 0.03 10^3/uL (0.0-0.7); Absolute Lymphocyte Count 0.93 10^3/uL (1.2-3.4); Absolute Monocyte Count 1.06 10^3/uL (0.1-0.8); Absolute Neutrophil Count 10.61 10^3/uL (1.2-6.7); Basophils % 0.2; Eosinophils % 0.2; HCT 35.3 % (40.0-50.0); HGB 11.3 g/dL (13.5-17.5); Immature Grans % 0.6; Lymphocytes % 7.3; MCH 26.9 pg (27.0-33.0); MCV 84 fL (80-95); MPV 9.3 fL (8.0-11.0); Monocytes % 8.3; Neutrophils % 83.4; Platelet Count 205 10^3/uL (130-400); RDW 15.3 % (11.8-14.1); RDW-SD 46.5 fL; WBC 12.72 10^3/uL (4.4-10.8)
[2022-12-31 07:41] LABS: INR 2.3 (0.9-1.1); PTT Activated 45.7 sec (21.5-31.9); Prothrombin Time 23.7 sec (9.3-11.0)
[2022-12-31 07:49] LABS: ALT 34 U/L (16-63); AST 44 U/L (15-37); Albumin 2.7 g/dL (3.4-5.0); Alkaline Phosphatase 150 U/L (46-116); Anion Gap 12.7 mmol/L (3-11); BUN 54 mg/dL (7-18); CO2 27.3 mmol/L (21.0-32.0); Calcium 9.4 mg/dL (8.5-10.1); Chloride 91 mmol/L (98-107); Estimated GFR 11.37 (mL/min/1.73m2); Glucose 209 mg/dL (74-106); Magnesium 2.2 mg/dL (1.8-2.4); Sodium 131 mmol/L (136-145); Total Protein 8.9 g/dL (6.4-8.2)
[2022-12-31 07:50] LABS: CREATININE 4.8 mg/dL (0.70-1.30); Potassium 2.5 mmol/L (3.5-5.1)
[2022-12-31 07:56] LABS: Bilirubin Negative (Negative); Blood Large (Negative); Clarity Sl Cloudy (Clear); Glucose 500 mg/dL (Negative); Ketones Negative (Negative); Leukocyte Esterase Small (Negative); Nitrite Positive (Negative); Specific Gravity 1.015 (1.005-1.025); Urobilinogen 0.2 EU/dL (Up TO 0.2)
[2022-12-31 08:00] LABS: Procalcitonin 0.5 ng/mL
--- NOTE | 2022-12-31 08:00 | DI.RAD_ITS ---
Exam(s) XR PORTABLE CHEST AP EXAM: XR PORTABLE CHEST AP CLINICAL HISTORY: confused, cough, chf, r/o pneumonia TECHNIQUE: 2D digital imaging was performed. COMPARISON: 19 November 2021 FINDINGS: Exam is limited by under penetration at the lung bases LUNGS: Clear. No pleural abnormality seen. HEART: Normal size. AORTA: Normal diameter. BONES: Unremarkable for age. Soft tissues: Unremarkable. IMPRESSION: No acute findings. DATA REPOSITORY: RADIATION DOSE DELIVERED:
[2022-12-31 08:05] LABS: COVID-19 PCR Negative (Negative); Influenza A PCR Negative (Negative); Influenza B PCR Negative (Negative); RSV PCR Negative (Negative)
[2022-12-31 08:06] LABS: Source Nasopharynx
[2022-12-31 08:12] LABS: Bacteria Moderate HPF (Negative); C & S Indicated? Yes; Casts Negative LPF (Negative); Crystals Moderate Amorphous HPF (Negative); Epithelial Cells Rare HPF (Negative); Mucus Trace (Negative)
[2022-12-31 08:16] LABS: BE (Venous) 4 mmol/L (-2-3); HCO3 (Venous) 28 mmol/L (23-28); O2 Sat (Venous) 42 %; TCO2 (Venous) 26 mmol/L (24-29); pCO2 (Venous) 41 mmHg (41-51); pH (Venous) 7.44 (7.31-7.41); pO2 (Venous) 23 mmHg
[2022-12-31] MEDS: cefTRIAXone 2 GM/50 ML BAG IVPB (08:20)
--- NOTE | 2022-12-31 08:28 | ED.GENADUL_ITS ---
Discharge Plan Disposition Patient Disposition: Admit to [facility] Condition: Serious Discharge Details Chief Complaint: Urinary Clinical Impression: Acute renal failure, Acute hypokalemia, Acute UTI, Acute dehydration Primary Care Provider: Gordo Dominguez ED Provider: Silas Del Cid Home Meds and New Rx's Prescriptions: No Action pravastatin 40 mg tablet 40 mg PO QPM Qty: 90 3RF warfarin 2.5 mg tablet 2.5 mg PO DAILY Qty: 90 3RF Protocol: Dose Management Condition: Saturday Dose/Route: 2.5 mg Instruction: 1 x 2.5 mg tablet Condition: Saturday Dose/Route: 2.5 mg Instruction: 1 x 2.5 mg tablet Condition: Saturday Dose/Route: 2.5 mg Instruction: 1 x 2.5 mg tablet Condition: Saturday Dose/Route: 2.5 mg Instruction: 1 x 2.5 mg tablet Condition: Dose/Route: 2.5 mg Instruction: 1 x 2.5 mg tablet Condition: Saturday Dose/Route: 2.5 mg Instruction: 1 x 2.5 mg tablet Condition: Saturday Dose/Route: 2.5 mg Instruction: 1 x 2.5 mg tablet Protocol Text: Adjustment Start Date: Saturday12/26/22 INR Value: 2.3 INR Date: 12/25/22 Recheck Date: 01/09/23 finasteride 5 mg tablet 5 mg PO DAILY Qty: 90 3RF (DME) pen needle, diabetic [Comfort EZ Pen [place]] 33 gauge x 3/16 needle See Rx Instructions .ROUTE .MEDSUPPLY Qty: 100 3RF Rx Instructions: inject once/day multivitamin [Daily Multiple] 1 EACH tablet 1 ea PO DAILY (DME) blood-glucose meter [[employer] Ultra2 Meter] 1 EACH kit 1 ea Miscellaneous DAILY Qty: 1 omeprazole 20 MG capsule,delayed release(DR/EC) 20 mg PO DAILY (DME) lancets [OneTouch UltraSoft Lancets] misc 1 ea Miscellaneous DAILY Qty: 90 4RF Rx Instructions: test daily before breakfast torsemide 20 mg tablet 40 mg PO BID Qty: 360 3RF amlodipine 5 mg tablet 5 mg PO DAILY Qty: 90 4RF metoprolol tartrate 100 mg tablet 50 mg PO BID Qty: 60 5RF 5-hydroxytryptophan (5-HTP) [5-HTP] 100 mg capsule 100 mg PO DAILY melatonin 5 mg capsule 5 mg PO HS coenzyme Q10 [Co Q-10] 10 mg capsule 10 mg PO DAILY (DME) OneTouch Ultra Test Strip 1 ea Miscellaneous DAILY Qty: 90 3RF Rx Instructions: test daily before breakfast glipizide 5 mg tablet 10 mg PO DAILY Qty: 180 3RF Rx Instructions: Take prior to breakfast. potassium chloride [Klor-Con M10] 10 mEq tablet,ER particles/crystals 30 meq PO DAILY Qty: 270 0RF Rx Instructions: dose increase 08/30/22 tamsulosin 0.4 mg capsule 0.4 mg PO HS Qty: 90 3RF Jardiance 25 mg tablet 25 mg PO QAM Qty: 90 3RF lidocaine HCl [Glydo] 2 % jelly in applicator 10 ml intra-urethral ONCE Qty: 120 0RF Rx Instructions: as a single dose - one dose per catheter change. lactulose 10 gram packet 10 g PO DAILY PRN (Reason: constipation) Qty: 30 1RF metolazone 5 mg tablet 5 mg PO .q Th, Mon PRN (Reason: weight gain) Qty: 20 1RF insulin glargine [Lantus Solostar U-100 Insulin] 100 unit/mL (3 mL) insulin pen 12 unit subcut QPM Qty: 15 1RF acetaminophen [Tylenol] 325 mg Tablet 650 mg PO Q4H PRN PRNQty: 0 0RF docusate sodium [Colace] 100 mg capsule 100 mg PO DAILY Medical Decision Making 82-year-old male with an extensive past medical history of chronic kidney disease, chronic indwelling Knox catheter, type 2 diabetes on insulin, atrial fibrillation on Coumadin, obstructive sleep apnea, chronic peripheral edema on furosemide, within echo with an LVEF of 55% done in 2020, who presents today for evaluation of confusion, weakness, low blood pressure all for the last week. who is from [employer] states that over the last week he has had increased work of breathing, low blood pressure with a systolic in the 80s, confusion, questionable chills. She has also noticed a diminished urinary output. She and the patient denies any chest pain. He denies any significant shortness of breath. No history of COPD. No vomiting or diarrhea. No falls or trauma. No other complaints at this time. Physical exam demonstrates an obese male, who does not appear in respiratory distress. He is ANO x3, with no signs of severe altered mental status. However I do believe the that he is certainly not at his baseline. Urine does appear somewhat dirty from the chronic indwelling Knox catheter. He does have crackles in the left lower lung trevino. Differential includes dehydration, kidney injury, pneumonia, less likely brain bleed from a fall or trauma, or other acute process. We will evaluate for these concerning etiologies, monitor closely and reassess. 10:40 AM Laboratory work-up has returned, patient does have a mildly elevated white count, mild left shift. No bandemia. VBG is stable. Potassium is low at 2.5, creatinine is notably elevated at 4.8, which is definitely higher than normal. Patient is still making urine. Urine is cloudy. Initial troponin is minimally elevated in the 80s, which is likely attributed to mild demand ischemia and his increased creatinine. Small fluid bolus of 500 cc have been given with mild continuous fluids at 125 cc/h. Procalcitonin is elevated at 0.5. Urinalysis is concerning for UTI. He has been given 2 g of ceftriaxone. Additionally I am concerned there may be a small amount of consolidation in the lungs on the right. X-ray was read as negative per radiology though. Ceftriaxone will help cover this. COVID flu and RSV are negative. EKG shows no STEMI. Clearly the patient demonstrates worsening KENNETH, in the setting of infection. I do feel that the patient would benefit from admission. Currently we are at capacity in the hospital, and we are boarding multiple patients in the ER. We have contacted multiple other facilities in the last 6 hours, all of which are not able to accept transfer or have open beds. We will continue to watch the patient here in the emergency department and treat. Potassium is notably low at 2.5, I suspect this may be a component of his weakness as well. We will give 20 mEq IV and 40 oral and continue to monitor closely on telemetry. I did contact the hospitalist Dr. Miller and at this time with what is going on upstairs, she would like to hold off on the admission currently and we will continue to monitor manage here in the ED. She will call back shortly though. 12:45 PM Patient has remained stable in the emergency department. He continues to have good urine output. He is clinically improved a little. Vital signs remain notably stable though. Knox catheter has been replaced. Dr. Miller has called back, and has formally excepted the patient for admission. We will continue to board here in the emergency department. I have extensively reviewed the treatment plan with the patient. I have addressed all patient concerns at this time. I have also discussed the plan with the admitting physician and they agree with the current assessment and plan and have agreed to assume responsibility for the patient. All parties demonstrate verbal understanding and agreement with our assessment and plan at this time. The documentation in this chart was dictated using [employer] dictation software. Please excuse any dictation errors. FINDINGS: Ventricles and Extra axial spaces: Normal in size and morphology for the patient's age. Hemorrhage: None. Cerebral parenchyma: Atrophy. 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 Microvascular changes in the white matter. Midline shift: None. Brainstem/Cerebellum: Normal. Calvarium: Normal. Visualized Paranasal sinuses/Mastoids: Complete opacification of the left maxillary sinus with high-density material. No significant change from prior. Few adjacent left ethmoid air cells are opacified. Small amount of mucus in the right sphenoid sinus. Mastoid air cells are clear. Soft Tissues: Unremarkable. IMPRESSION: No acute intracranial process. Chronic sinus disease, particularly of the left maxillary sinus. FINDINGS: Exam is limited by under penetration at the lung bases LUNGS: Clear. No pleural abnormality seen. HEART: Normal size. AORTA: Normal diameter. BONES: Unremarkable for age. Soft tissues: Unremarkable. IMPRESSION: No acute findings. HPI General Date/Time Provider Initiated Documentation: 12/31/22 06:53 . HPI Narrative: 82-year-old male with an extensive past medical history of chronic kidney disease, chronic indwelling Knox catheter, type 2 diabetes on insulin, atrial fibrillation on Coumadin, obstructive sleep apnea, chronic peripheral edema on furosemide, within echo with an LVEF of 55% done in 2020, who presents today for evaluation of confusion, weakness, low blood pressure all for the last week. who is from [employer] states that over the last week he has had increased work of breathing, low blood pressure with a systolic in the 80s, confusion, questionable chills. She has also noticed a diminished urinary output. She and the patient denies any chest pain. He denies any significant shortness of breath. No history of COPD. No vomiting or diarrhea. No falls or trauma. No other complaints at this time. Related Data Home Medications Medication Instructions Recorded Confirmed multivitamin (Daily Multiple 1 ea PO DAILY 12/11/16 12/31/22 tablet) blood-glucose meter ([facility] ##1 02/12/17 12/31/22 Ultra2 Meter kit) omeprazole 20 mg capsule,delayed 20 mg PO DAILY 04/15/18 12/31/22 release lancets ([facility] UltraSoft #90 ea 11/06/18 12/31/22 Lancets) acetaminophen 325 mg tablet 650 mg PO Q4H PRN PRN #0 tabs 04/20/19 12/31/22 (Tylenol) docusate sodium 100 mg capsule 100 mg PO DAILY 10/27/21 12/31/22 (Colace) torsemide 20 mg tablet 40 mg PO BID #360 tabs 02/02/22 12/31/22 amlodipine 5 mg tablet 5 mg PO DAILY #90 tab-caps 03/12/22 12/31/22 metoprolol tartrate 100 mg tablet 50 mg PO BID #60 tabs 03/21/22 12/31/22 5-hydroxytryptophan (5-HTP) 100 mg 100 mg PO DAILY 04/10/22 12/31/22 capsule (5-HTP) coenzyme Q10 10 mg capsule (Co 10 mg PO DAILY 04/10/22 12/31/22 Q-10) melatonin 5 mg capsule 5 mg PO HS 04/10/22 12/31/22 blood sugar diagnostic ([facility] strips 05/17/22 12/31/22 Ultra Test strips) pravastatin 40 mg tablet 40 mg PO QPM #90 tabs 05/30/22 12/31/22 glipizide 5 mg tablet 10 mg PO DAILY #180 tabs 06/25/22 12/31/22 potassium chloride 10 mEq 30 meq PO DAILY #270 tabs 08/30/22 12/31/22 tablet,extended release(part/cryst) (Klor-Con M) tamsulosin 0.4 mg capsule 0.4 mg PO HS #90 caps 08/31/22 12/31/22 empagliflozin 25 mg tablet 25 mg PO QAM #90 tabs 10/10/22 12/31/22 (Jardiance) lidocaine HCl 2 % mucosal jelly in 10 ml intra-urethral ONCE #120 mL 10/31/22 12/31/22 applicator (Glydo) lactulose 10 gram oral packet 10 g PO DAILY PRN constipation #30 11/05/22 ea metolazone 5 mg tablet 5 mg PO .q Thurs, Mon PRN weight 11/23/22 12/31/22 gain #20 tabs finasteride 5 mg tablet 5 mg PO DAILY #90 tabs 12/11/22 12/31/22 pen needle, diabetic 33 gauge x #100 ea 12/11/22 12/31/22 3/16 (Comfort EZ Pen [place]) warfarin 2.5 mg tablet 2.5 mg PO DAILY #90 tabs 12/11/22 12/31/22 insulin glargine 100 unit/mL (3 12 unit (0.12 mL) subcut QPM #15 mL 12/26/22 12/31/22 mL) subcutaneous pen (Lantus Solostar U-100 Insulin) Previous Rx's Medication Instructions Recorded lancets (LAM Aviation[employer] UltraSoft #90 ea 11/06/18 Lancets) acetaminophen 325 mg tablet 650 mg PO Q4H PRN PRN #0 tabs 04/20/19 (Tylenol) torsemide 20 mg tablet 40 mg PO BID #360 tabs 02/02/22 amlodipine 5 mg tablet 5 mg PO DAILY #90 tab-caps 03/12/22 metoprolol tartrate 100 mg tablet 50 mg PO BID #60 tabs 03/21/22 blood sugar diagnostic (LAM AviationTouch #90 strips 05/17/22 Ultra Test strips) pravastatin 40 mg tablet 40 mg PO QPM #90 tabs 05/30/22 glipizide 5 mg tablet 10 mg PO DAILY #180 tabs 06/25/22 potassium chloride 10 mEq 30 meq PO DAILY #270 tabs 08/30/22 tablet,extended release(part/cryst) (Klor-Con M) tamsulosin 0.4 mg capsule 0.4 mg PO HS #90 caps 08/31/22 empagliflozin 25 mg tablet 25 mg PO QAM #90 tabs 10/10/22 (Jardiance) lidocaine HCl 2 % mucosal jelly in 10 ml intra-urethral ONCE #120 mL 10/31/22 applicator (Glydo) lactulose 10 gram oral packet 10 g PO DAILY PRN constipation #30 11/05/22 ea metolazone 5 mg tablet 5 mg PO .q Th, Mon PRN weight 11/23/22 gain #20 tabs finasteride 5 mg tablet 5 mg PO DAILY #90 tabs 12/11/22 pen needle, diabetic 33 gauge x #100 ea 12/11/22 3/16 (Comfort EZ Pen [place]) warfarin 2.5 mg tablet 2.5 mg PO DAILY #90 tabs 12/11/22 insulin glargine 100 unit/mL (3 12 unit (0.12 mL) subcut QPM #15 mL 12/26/22 mL) subcutaneous pen (Lantus Solostar U-100 Insulin) Allergies Allergy/AdvReac Type Severity Reaction Status Date / Time No Known Allergies Allergy Verified 12/31/22 07:55 General Stated Complaint: Urinary GISSEL: 3 Review of Systems All systems reviewed & are unremarkable except as noted in HPI and below PFSH All Active Problems (Updated 12/31/22 @ 12:48 by Silas Del Cid DO) Acute renal failure (Acute) Acute hypokalemia (Acute) Acute UTI (Acute) Acute dehydration (Acute) Diabetes mellitus (Chronic) Atrial fibrillation (Chronic) on coumadin Chronic kidney disease (Chronic) 2020- borderline stage 4 Venous insufficiency (chronic) (peripheral) (Acute) Nail dystrophy (Acute) COVID-19 (Acute ~08/05/22) Thumb pain (Acute) Right heart failure (Acute) Urinary retention (Acute) 11/2021, ultrasound shows significant pretty and post void residual- minimal response to voiding Kidney stones (Chronic) Longstanding history of multiple stones 11/2021 ultrasound showed multiple stones in kidney, 1 stone possibly in right ureter Anemia (Chronic) Chronic mild anemia, associated with CKD Obstructive sleep apnea (Chronic) cpap Acute on chronic heart failure with preserved ejection fraction (Acute) Hives (Acute) Obesity (Acute 02/11/13) Obstructive nephropathy (Acute) Moderate pulmonary arterial systolic hypertension (Chronic) Chronic anticoagulation (Chronic) Polyp of colon (Chronic) Rosacea (Chronic) Constipation (Chronic) CHF (congestive heart failure) (Chronic) Medical History (Updated 12/31/22 @ 12:48 by Silas Del Cid DO) Atrial fibrillation BPH (benign prostatic hyperplasia) Diabetes mellitus type 2 in obese Essential hypertension, benign GERD (gastroesophageal reflux disease) Hyperlipidemia Nephrolithiasis Obesity hypoventilation syndrome LUCAS on CPAP Palliative care patient Surgical History Cholecystectomy (~1985) Colonoscopy - MAC (~2002) Replacement of total knee joint B/L Tonsillectomy and adenoidectomy Family History Mother Diabetes Heart disease Father Neoplasm STOMACH Brother Neoplasm Brother No problems noted. Daughter No problems noted. Social History (Updated 05/30/22 @ 16:30 by La Malik) Smoking/Tobacco Use Status: Never Second Hand Exposure: No Smoking risk assessment performed?: Yes Alcohol Intake: current Alcohol Intake frequency: holidays/special occasions only Drug use: Never Substance use type: does not use Caregiver/Support person: Yes Household members: spouse Housing: house Communication Needs: Hard of Hearing Do you need help understanding health information?: Often Pets and animals: No Sexually active: No What is your relationship status?: How often do you talk on the phone with friends or family?: decline to answer How often do you get together with friends or relatives?: decline to answer How often do you attend holiness or lutheran services?: decline to answer Do you belong to any clubs or organized social groups?: decline to answer Panel score (0-1 are the most socially isolated patients): 1 What type of physical activity do you participate in: walking Duration: < 15 minutes/day Frequency: daily Special amor needs: No Do you feel safe at home: Yes Do you feel safe in your relationship?: Yes Exam Narrative Exam Narrative: 1.Const: Well-nourished, Well-developed, appearing stated age 2.Eyes: PERRL, no conjunctival injection, and symmetrical lids. 3.ENT: Atraumatic external nose and ears. Dry MM. Neck: Symmetric, trachea midline, No thyromegaly. 4.CVS: +S1/S2, No murmurs or gallops. Peripheral pulses 2+ and equal in all extremities. Brisk capillary refill in all extremities. 5.RESP: Unlabored respiratory effort. Crackles in the left lower lung field. No wheezes or rhonchi. 6.GI: Soft, Nontender/Nondistended, No hepatosplenomegaly. No guarding or rebound. Genital exam demonstrates intact Knox catheter that is in place with no blood 7.MSK: Normocephalic/Atraumatic, Extremities w/o deformity or ttp No cyanosis or clubbing, Normal movement of all extremities. No significant peripheral edema. Minimal trace edema in the lower compartment of the extremities. Chronic venous stasis discoloring is present. 8.Skin: Warm, Dry. No rashes or lesions. Please see musculoskeletal 9.Neuro: rn pacu II-XII grossly intact. Sensation grossly intact, no focal neurolo gic deficits. 10.Psych: (AAO) x3. Appropriate mood and affect Course Vital Signs Vital signs: Vital Signs Temperature 37.6 C 12/31/22 06:39 Pulse 85 12/31/22 06:39 Respiratory Rate 16 12/31/22 06:39 Blood Pressure 112/52 L 12/31/22 06:39 Pulse Oximetry 94 12/31/22 06:39 Temperature 37.6 C 12/31/22 06:39 Temperature Source Oral 12/31/22 06:39 Pulse 85 12/31/22 06:39 Respiratory Rate 16 12/31/22 06:39 Respiratory Effort Short of Breath 12/31/22 07:51 Blood Pressure 112/52 L 12/31/22 06:39 Blood Pressure Position Sitting 12/31/22 06:39 Pulse Oximetry 94 12/31/22 06:39 Oxygen Delivery Method Room Air 12/31/22 06:39 Oxygen Flow Rate 0 12/31/22 06:39 Lab/Test Results Lab/Test Results: 12/31/22 07:50 Urine - Reflex from Ua Urine Culture - Pending 12/31/22 08:01 Blood Blood Culture - Pending 12/31/22 07:00 Blood Blood Culture - Pending Laboratory Tests Range/Units 12/31/22 12/31/22 12/31/22 07:00 07:00 07:00 WBC (4.4-10.8) 10^3/uL 12.72 H RBC (4.36-5.78) 10^6/uL 4.20 L Hgb (13.5-17.5) g/dL 11.3 L Hct (40.0-50.0) % 35.3 L MCV (80-95) fL 84 MCH (27.0-33.0) pg 26.9 L MCHC (32.0-36.0) % 32.0 RDW (11.8-14.1) % 15.3 H Plt Count (130-400) 10^3/uL 205 MPV (8.0-11.0) fL 9.3 Immature Gran % 0.6 Neutrophils % 83.4 Lymphocytes % 7.3 Monocytes % 8.3 Eosinophils % 0.2 Basophils % 0.2 Nucleated RBC % (0.0-0.3) % 0.0 Absolute Neutrophils (1.2-6.7) 10^3/uL 10.61 H Absolute Lymphocytes (1.2-3.4) 10^3/uL 0.93 L Absolute Monocytes (0.1-0.8) 10^3/uL 1.06 H Absolute Eosinophils (0.0-0.7) 10^3/uL 0.03 Absolute Basophils (0.0-0.2) 10^3/uL 0.03 PT (9.3-11.0) sec 23.7 H INR (0.9-1.1) 2.3 H APTT (21.5-31.9) sec 45.7 H VBG pH (7.31-7.41) VBG pCO2 (41-51) mmHg VBG pO2 mmHg VBG HCO3 (23-28) mmol/L VBG Total CO2 (24-29) mmol/L VBG O2 Saturation % VBG Base Excess (-2-3) mmol/L VBG Lactate (0.6-1.4) mmol/L Sodium (136-145) mmol/L 131 L Potassium (3.5-5.1) mmol/L 2.5 L* Chloride (98-107) mmol/L 91 L Carbon Dioxide (21.0-32.0) mmol/L 27.3 Anion Gap (3-11) mmol/L 12.7 H BUN (7-18) mg/dL 54 H Creatinine (0.70-1.30) mg/dL 4.8 H* Est GFR (CKD-EPI 2020) (mL/min/1.73m2) 11.37 Glucose (74-106) mg/dL 209 H Calcium (8.5-10.1) mg/dL 9.4 Magnesium (1.8-2.4) mg/dL 2.2 Total Bilirubin (0.2-1.0) mg/dL 1.0 AST (15-37) U/L 44 H ALT (16-63) U/L 34 Alkaline Phosphatase (46-116) U/L 150 H Total Protein (6.4-8.2) g/dL 8.9 H Albumin (3.4-5.0) g/dL 2.7 L Procalcitonin ng/mL Urine Color (Yellow) Urine Clarity (Clear) Urine pH (5-8) Ur Specific [place] (1.005-1.025) Urine Protein (Negative) mg/dL Urine Ketones (Negative) mg/dL Urine Blood (Negative) Urine Nitrite (Negative) Urine Bilirubin (Negative) Urine Urobilinogen (Up TO 0.2) EU/dL Ur Leukocyte Esterase (Negative) Urine RBC (0-2) HPF Urine WBC (0-5) HPF Ur Epithelial Cells (Negative) HPF Urine Crystals (Negative) HPF Urine Bacteria (Negative) HPF Urine Casts (Negative) LPF Urine Mucus (Negative) Ur Culture Indicated? Urine Glucose (Negative) mg/dL COVID-19 Source SARS-CoV-2 (PCR) (Negative) Influenza Type A (PCR) (Negative) Influenza Type B (PCR) (Negative) RSV (PCR) (Negative) Range/Units 12/31/22 12/31/22 12/31/22 07:13 07:17 07:50 WBC (4.4-10.8) 10^3/uL RBC (4.36-5.78) 10^6/uL Hgb (13.5-17.5) g/dL Hct (40.0-50.0) % MCV (80-95) fL MCH (27.0-33.0) pg MCHC (32.0-36.0) % RDW (11.8-14.1) % Plt Count (130-400) 10^3/uL MPV (8.0-11.0) fL Immature Gran % Neutrophils % Lymphocytes % Monocytes % Eosinophils % Basophils % Nucleated RBC % (0.0-0.3) % Absolute Neutrophils (1.2-6.7) 10^3/uL Absolute Lymphocytes (1.2-3.4) 10^3/uL Absolute Monocytes (0.1-0.8) 10^3/uL Absolute Eosinophils (0.0-0.7) 10^3/uL Absolute Basophils (0.0-0.2) 10^3/uL PT (9.3-11.0) sec INR (0.9-1.1) APTT (21.5-31.9) sec VBG pH (7.31-7.41) VBG pCO2 (41-51) mmHg VBG pO2 mmHg VBG HCO3 (23-28) mmol/L VBG Total CO2 (24-29) mmol/L VBG O2 Saturation % VBG Base Excess (-2-3) mmol/L VBG Lactate (0.6-1.4) mmol/L 1.7 H Sodium (136-145) mmol/L Potassium (3.5-5.1) mmol/L Chloride (98-107) mmol/L Carbon Dioxide (21.0-32.0) mmol/L Anion Gap (3-11) mmol/L BUN (7-18) mg/dL Creatinine (0.70-1.30) mg/dL Est GFR (CKD-EPI 2020) (mL/min/1.73m2) Glucose (74-106) mg/dL Calcium (8.5-10.1) mg/dL Magnesium (1.8-2.4) mg/dL Total Bilirubin (0.2-1.0) mg/dL AST (15-37) U/L ALT (16-63) U/L Alkaline Phosphatase (46-116) U/L Total Protein (6.4-8.2) g/dL Albumin (3.4-5.0) g/dL Procalcitonin ng/mL 0.5 Urine Color (Yellow) Yellow Urine Clarity (Clear) Sl Cloudy Urine pH (5-8) 6.0 Ur Specific [place] (1.005-1.025) 1.015 Urine Protein (Negative) mg/dL 100 H Urine Ketones (Negative) mg/dL Negative Urine Blood (Negative) Large H Urine Nitrite (Negative) Positive H Urine Bilirubin (Negative) Negative Urine Urobilinogen (Up TO 0.2) EU/dL 0.2 Ur Leukocyte Esterase (Negative) Small H Urine RBC (0-2) HPF 10-20 H Urine WBC (0-5) HPF 5-10 Ur Epithelial Cells (Negative) HPF Rare Urine Crystals (Negative) HPF Moderate Amorphous Urine Bacteria (Negative) HPF Moderate Urine Casts (Negative) LPF Negative Urine Mucus (Negative) Trace Ur Culture Indicated? Yes Urine Glucose (Negative) mg/dL 500 H COVID-19 Source Nasopharynx SARS-CoV-2 (PCR) (Negative) Negative Influenza Type A (PCR) (Negative) Negative Influenza Type B (PCR) (Negative) Negative RSV (PCR) (Negative) Negative Range/Units 12/31/22 08:12 WBC (4.4-10.8) 10^3/uL RBC (4.36-5.78) 10^6/uL Hgb (13.5-17.5) g/dL Hct (40.0-50.0) % MCV (80-95) fL MCH (27.0-33.0) pg MCHC (32.0-36.0) % RDW (11.8-14.1) % Plt Count (130-400) 10^3/uL MPV (8.0-11.0) fL Immature Gran % Neutrophils % Lymphocytes % Monocytes % Eosinophils % Basophils % Nucleated RBC % (0.0-0.3) % Absolute Neutrophils (1.2-6.7) 10^3/uL Absolute Lymphocytes (1.2-3.4) 10^3/uL Absolute Monocytes (0.1-0.8) 10^3/uL Absolute Eosinophils (0.0-0.7) 10^3/uL Absolute Basophils (0.0-0.2) 10^3/uL PT (9.3-11.0) sec INR (0.9-1.1) APTT (21.5-31.9) sec VBG pH (7.31-7.41) 7.44 H VBG pCO2 (41-51) mmHg 41 VBG pO2 mmHg 23 VBG HCO3 (23-28) mmol/L 28 VBG Total CO2 (24-29) mmol/L 26 VBG O2 Saturation % 42 VBG Base Excess (-2-3) mmol/L 4 H VBG Lactate (0.6-1.4) mmol/L Sodium (136-145) mmol/L Potassium (3.5-5.1) mmol/L Chloride (98-107) mmol/L Carbon Dioxide (21.0-32.0) mmol/L Anion Gap (3-11) mmol/L BUN (7-18) mg/dL Creatinine (0.70-1.30) mg/dL Est GFR (CKD-EPI 2020) (mL/min/1.73m2) Glucose (74-106) mg/dL Calcium (8.5-10.1) mg/dL Magnesium (1.8-2.4) mg/dL Total Bilirubin (0.2-1.0) mg/dL AST (15-37) U/L ALT (16-63) U/L Alkaline Phosphatase (46-116) U/L Total Protein (6.4-8.2) g/dL Albumin (3.4-5.0) g/dL Procalcitonin ng/mL Urine Color (Yellow) Urine Clarity (Clear) Urine pH (5-8) Ur Specific [place] (1.005-1.025) Urine Protein (Negative) mg/dL Urine Ketones (Negative) mg/dL Urine Blood (Negative) Urine Nitrite (Negative) Urine Bilirubin (Negative) Urine Urobilinogen (Up TO 0.2) EU/dL Ur Leukocyte Esterase (Negative) Urine RBC (0-2) HPF Urine WBC (0-5) HPF Ur Epithelial Cells (Negative) HPF Urine Crystals (Negative) HPF Urine Bacteria (Negative) HPF Urine Casts (Negative) LPF Urine Mucus (Negative) Ur Culture Indicated? Urine Glucose (Negative) mg/dL COVID-19 Source SARS-CoV-2 (PCR) (Negative) Influenza Type A (PCR) (Negative) Influenza Type B (PCR) (Negative) RSV (PCR) (Negative) Critical Care Time Critical Care Time Critical Care Time: Yes Total Critical Care Time: 45 Attestation: Upon my evaluation, this patient had a high probability of imminent or life- threatening deterioration, which required my direct attention, intervention, and personal management. I have personally provided 45 minutes of critical care time exclusive of time spent on separately billable procedures. Time includes review of laboratory data, radiology results, discussion with consultants, and monitoring for potential decompensation. Interventions were performed as documented.
--- NOTE | 2022-12-31 08:30 | DI.CT_ITS ---
Exam(s) CT HEAD WO EXAM: CT HEAD WO CLINICAL HISTORY: confusion, on coumadin, r/o bleed. TECHNIQUE: Imaging Protocol: Axial computed tomography images with coronal and sagittal reformatted images were created and reviewed COMPARISON: CT HEAD AND CSPINE W/O CONTRAST from 11/29/2017 FINDINGS: Ventricles and Extra axial spaces: Normal in size and morphology for the patient's age. Hemorrhage: None. Cerebral parenchyma: Atrophy. 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 Microvascular changes in th e white matter. Midline shift: None. Brainstem/Cerebellum: Normal. Calvarium: Normal. Visualized Paranasal sinuses/Mastoids: Complete opacification of the left maxillary sinus with high-d ensity material. No significant change from prior. Few adjacent left ethmoid air cells are opacifie d. Small amount of mucus in the right sphenoid sinus. Mastoid air cells are clear. Soft Tissues: Unremarkable. IMPRESSION: No acute intracranial process. Chronic sinus disease, particularly of the left maxillary sinus. RADIATION DOSE DELIVERED: 932.66mGy.cm Total DLP DATA REPOSITORY: All CT scans at this facility are submitted to the National Radiology Data Registry (NRDR) Dose Index Registry (DIR) with the [employer] ([employer]). RADIATION OPTIMIZATION: All CT scans at this facility use at least one of these dose optimization te chniques: automated exposure control; mA and/or kV adjustment per patient size (includes targeted exa ms where dose is matched to clinical indication); or iterative reconstruction.
--- NOTE | 2022-12-31 08:30 | RT.EKG_ITS ---
APPROVED REPORT Exam: Resting ECG Reason for Exam: confusion Patient Location: E HR:75 bpm ECG Measurements Heart Rate 75 AXIS WA [id number] P [id number] QRSd 109 QRS 26 QT 433 T 19 QTc 483 Conclusion Atrial fibrillation...? atrial activity Low voltage, precordial leads...precordial leads <1.0mV Nonspecific repol abnormality, diffuse leads...ST dep, T flat/neg, ant/lat/inf Physian: ST depressions similiar to prior ekg, slightly worsened, QT appears prolonged
[2022-12-31] MEDS: POTASSIUM CHLORIDE 20 MEQ/100 ML BAG 50 MEQ IVPB (09:09)
[2022-12-31 09:10] LABS: Troponin I 89 ng/L (<or=60)
[2022-12-31] MEDS: Normal Saline 500 ML IV (09:10)
[2022-12-31] MEDS: Normal Saline 1,000 ML 150 ML IV (10:00)
[2022-12-31] MEDS: Potassium Chloride 20 MEQ TABCR 40 MEQ PO (10:00)
[2022-12-31 10:29] LABS: Troponin I 86 ng/L (<or=60)
[2022-12-31] MEDS: Lidocaine 2% Jelly 6 ML SYR (12:46)
[2022-12-31 13:08] LABS: NT-proBNP 7516 pg/mL (<300)
--- NOTE | 2022-12-31 14:17 | HPE_ITS ---
The patient was seen and examined by me independently. Please, see my note from same date for the official assessment and plan. Date of service: 12/31/22 Time of Service: 14:17 Assessment and Plan Assessment and plan (1) Acute UTI: Status: Acute Assessment and plan: Patient presented with fever,mild leukocytosis with WBC 12.72, urine was positive for blood, nitrites and and leukocyte esterase. Ceftriaxone 2 gm IV in the ED today. Blood and urine Culture results are pending. Will continue daily ceftriaxone and narrow down coverage if indicated. (2) Acute renal failure: Status: Acute Assessment and plan: Patient has a history of CKD with previous creatinine of 3.0 on 08/30/2022 and 4.8 on admission day on 12/30/22, and a reported BP of 88/55 by spouse. Most AKIs result from pre-renal azotemia and IV fluid is the main intervention to resolve it while being cautious of fluid overloading this patient with CHF Continue IVF (3) Atrial fibrillation: Assessment and plan: Chronic A-fib, on warfarin and metoprolol tartrate. Will continue therapy Qualifiers: Atrial fibrillation type: longstanding persistent Qualified Code(s): I48.11 - Longstanding persistent atrial fibrillation (4) CHF (congestive heart failure): Status: Chronic Assessment and plan: Patient has a history of HFpEF with LVEF of 55% as per 10/2021 He was on Torsemide, metolazone ,and jardiance. We will hold diuretics for now: Hold torsemide and metolazone hold jardiance Consider repeating the echocardiography (5) BPH (benign prostatic hyperplasia): Assessment and plan: Patient on Flomax and Finesteride at home, patient has a chronic griffin catheter Hold Flomax and Finesteride (6) Diabetes mellitus type 2 in obese: Assessment and plan: Will continue lantus and start point of care glucose checks AC and HS with SS. Will hold glipizide due to KENNETH, hold Jardiance KENNETH and acute UTI (7) Essential hypertension, benign: Assessment and plan: Continue metoprolol and amlodipine. Hold amlodipine for MAP <65 (8) GERD (gastroesophageal reflux disease): Assessment and plan: Patient is on home omeprazole will continue therapy (9) ULCAS on CPAP: Assessment and plan: Patient is on home CPAP. Device brought to the hospital. RT will be contacted to verify and set up machine (10) Hypokalemia: Status: Acute Assessment and plan: Patient on torsemide BID, last dose was on 12/30 PM. K=2.5,no loop diuretic today, replacement provided. BMP in AM (11) DVT prophylaxis: Status: Acute Assessment and plan: Patient is on warfarin for atrial fibrillation and this will cover DVT prophylaxis (12) Discharge planning issues: Status: Acute Assessment and plan: Plan for discharge not determined at this time: home versus rehab. Discussed with Dr. Miller History of Present Illness History of Present Illness Chief Complaint: Not producing enough urine, unable to walk and low BP, desorientation Narrative: This is a 82 years old patient with a history of atrial- fibrillation,HFpEF with LVEF of 55%, DM II, urinary retention with chronic Griffin, BPH, presnted to the ED at [facility] via EMS for oliguria, ambulatory dy sfunction, low BP 88/55 and altered mental status. The spouse is at bedside and reports decline starting 2weeks ago with progressive worsening urine output, decreased mobility. The called EMS in the past week but EMS told them that everything was full and patient was worried about driving back home in bad weather, joint decision was made to stay home and to call if further needs for EMS transport to ED assessed. BP trending down on 12/29 with BP 90/59 then 88/55 on the 12/30. Spouse called the ambulance EMS to ED [facility]. Patient denied chest pain, nausea, vomiting or diarrhea. He reported difficulty breathing, fatigue, weakness. Review of Systems Constitutional Constitutional: Denies body ache(s), Reports daytime sleepiness, Reports fatigue and Reports weight gain Eyes Eyes: Denies loss of vision and Denies other visual disturbances ENT Ears, Nose, Mouth, and Throat: Reports dry mouth, Denies neck pain and Reports disequilibrium Cardiovascular Cardiovascular: Denies chest pain, Reports leg edema, Reports dyspnea and Reports dyspnea on exertion Respiratory Respiratory: Denies cough, Reports dyspnea and Reports dyspnea on exertion Gastrointestinal Gastrointestinal: Denies abdominal pain, Denies diarrhea, Reports nausea (In the past 3 days but not today) and Denies vomiting Genitourinary Genitourinary: Denies hematuria Musculoskeletal Musculoskeletal: Denies abnormal gait and Denies neck pain Neurologic Neurologic: Denies abnormal gait, Denies loss of vision and Reports disequilibr [facility] Endocrine Endocrine: Reports fatigue Hematologic/Lymphatic Hematologic/Lymphatic: Denies lymphadenopathy PFSH All Active Problems (Updated 01/01/23 @ 22:30 by Anali Miller MD) Gram-negative bacteremia (Acute) Sepsis (Acute) Bacteremia (Acute) Discharge planning issues (Acute) DVT prophylaxis (Acute) Acute kidney injury superimposed on chronic kidney disease (Acute) Hypokalemia (Acute) Acute renal failure (Acute) Acute hypokalemia (Acute) Acute UTI (Acute) Acute dehydration (Acute) Diabetes mellitus (Chronic) Atrial fibrillation (Chronic) on coumadin Chronic kidney disease (Chronic) 2020- borderline stage 4 Venous insufficiency (chronic) (peripheral) (Acute) Nail dystrophy (Acute) COVID-19 (Acute ~08/05/22) Thumb pain (Acute) Right heart failure (Acute) Urinary retention (Acute) 11/2021, ultrasound shows significant pretty and post void residual- minimal response to voiding Kidney stones (Chronic) Longstanding history of multiple stones 11/2021 ultrasound showed multiple stones in kidney, 1 stone possibly in right ureter Anemia (Chronic) Chronic mild anemia, associated with CKD Obstructive sleep apnea (Chronic) cpap Acute on chronic heart failure with preserved ejection fraction (Acute) Hives (Acute) Obesity (Acute 02/11/13) Obstructive nephropathy (Acute) Moderate pulmonary arterial systolic hypertension (Chronic) Chronic anticoagulation (Chronic) Polyp of colon (Chronic) Rosacea (Chronic) Constipation (Chronic) CHF (congestive heart failure) (Chronic) Medical History Atrial fibrillation BPH (benign prostatic hyperplasia) Diabetes mellitus type 2 in obese Essential hypertension, benign GERD (gastroesophageal reflux disease) Hyperlipidemia Nephrolithiasis Obesity hypoventilation syndrome LUCAS on CPAP Palliative care patient Surgical History Cholecystectomy (~1985) Colonoscopy - MAC (~2002) Replacement of total knee joint B/L Tonsillectomy and adenoidectomy Family History Mother Diabetes Heart disease Father Neoplasm STOMACH Brother Neoplasm Brother No problems noted. Daughter No problems noted. Social History Smoking/Tobacco Use Status: Never Second Hand Exposure: No Smoking risk assessment performed?: Yes Alcohol Intake: current Alcohol Intake frequency: holidays/special occasions only Drug use: Never Substance use type: does not use Caregiver/Support person: Yes Household members: spouse Housing: house Communication Needs: Hard of Hearing Do you need help understanding health information?: Often Pets and animals: No Sexually active: No What is your relationship status?: How often do you talk on the phone with friends or family?: decline to answer How often do you get together with friends or relatives?: decline to answer How often do you attend caodaism or mu-ism services?: decline to answer Do you belong to any clubs or organized social groups?: decline to answer Panel score (0-1 are the most socially isolated patients): 1 What type of physical activity do you participate in: walking Duration: < 15 minutes/day Frequency: daily Special amor needs: No Do you feel safe at home: Yes Do you feel safe in your relationship?: Yes Meds Allergies and Home Medications Allergies Allergy/AdvReac Type Severity Reaction Status Date / Time No Known Allergies Allergy Verified 12/31/22 07:55 Home Medications Medication Instructions Recorded Confirmed Type multivitamin (Daily Multiple 1 ea PO DAILY 12/11/16 12/31/22 History tablet) blood-glucose meter (Calixaruch ##1 02/12/17 12/31/22 History Ultra2 Meter kit) omeprazole 20 mg capsule,delayed 20 mg PO DAILY 04/15/18 12/31/22 History release lancets (Calixaruch UltraSoft #90 ea 11/06/18 12/31/22 Rx Lancets) acetaminophen 325 mg tablet 650 mg PO Q4H PRN PRN #0 tabs 04/20/19 12/31/22 Rx (Tylenol) docusate sodium 100 mg capsule 100 mg PO DAILY 10/27/21 12/31/22 History (Colace) torsemide 20 mg tablet 40 mg PO BID #360 tabs 02/02/22 12/31/22 Rx amlodipine 5 mg tablet 5 mg PO DAILY #90 tab-caps 03/12/22 12/31/22 Rx metoprolol tartrate 100 mg tablet 50 mg PO BID #60 tabs 03/21/22 12/31/22 Rx 5-hydroxytryptophan (5-HTP) 100 mg 100 mg PO DAILY 04/10/22 12/31/22 History capsule (5-HTP) coenzyme Q10 10 mg capsule (Co 10 mg PO DAILY 04/10/22 12/31/22 History Q-10) melatonin 5 mg capsule 5 mg PO HS 04/10/22 12/31/22 History blood sugar diagnostic (OneTouch #90 strips 05/17/22 12/31/22 Rx Ultra Test strips) pravastatin 40 mg tablet 40 mg PO QPM #90 tabs 05/30/22 12/31/22 Rx glipizide 5 mg tablet 10 mg PO DAILY #180 tabs 06/25/22 12/31/22 Rx potassium chloride 10 mEq 30 meq PO DAILY #270 tabs 08/30/22 12/31/22 Rx tablet,extended release(part/cryst) (Klor-Con M) tamsulosin 0.4 mg capsule 0.4 mg PO HS #90 caps 08/31/22 12/31/22 Rx empagliflozin 25 mg tablet 25 mg PO QAM #90 tabs 10/10/22 12/31/22 Rx (Jardiance) lidocaine HCl 2 % mucosal jelly in 10 ml intra-urethral ONCE #120 mL 10/31/22 12/31/22 Rx applicator (Glydo) lactulose 10 gram oral packet 10 g PO DAILY PRN constipation #30 11/05/22 12/31/22 Rx ea finasteride 5 mg tablet 5 mg PO DAILY #90 tabs 12/11/22 12/31/22 Rx pen needle, diabetic 33 gauge x #100 ea 12/11/22 12/31/22 Rx 3/16 (Comfort EZ Pen Capitan) warfarin 2.5 mg tablet 2.5 mg PO DAILY #90 tabs 12/11/22 12/31/22 Rx insulin glargine 100 unit/mL (3 12 unit (0.12 mL) subcut QPM #15 mL 12/26/22 12/31/22 Rx mL) subcutaneous pen (Lantus Solostar U-100 Insulin) metolazone 5 mg tablet 5 mg PO .q Thurs, Mon PRN weight 12/31/22 12/31/22 History gain 3lbs/day or 7 lbs/week Exam Narrative Exam Narrative: Patient is lying on stretcher in ED with spouse at bedside. Speaks in short sentences, 3-4 words then falls back to sleep, lethargic and slo w to follow commands. Head is atraumatic, conjugated gaze Alert and oriented X3 S1,S2, no murmur, in atrial fibrillation on ED monitor HR 80-90's, trace edema to lower extremities, radial and pedal pulses are present Bibasilar crackles heard to lung trevino, clear posterior upper lobes Abdomen is large, non-tender, non-distended No CVA tenderness, Griffin in place draining yellow urine with copious sediment Generalized weakness, unable to mobilize self in stretcher No bruising or lesion to skin, but hyperpigmentation to bilateral lower extremities No signs of psychological distress noted. Results Labs 12/31/22 07:00 12/31/22 07:00 Labs: Laboratory Results - last 24 hr 12/31/22 12/31/22 12/31/22 07:00 07:00 07:00 WBC 12.72 H RBC 4.20 L Hgb 11.3 L Hct 35.3 L MCV 84 MCH 26.9 L MCHC 32.0 RDW 15.3 H Plt Count 205 MPV 9.3 Immature Gran % 0.6 Neutrophils % 83.4 Lymphocytes % 7.3 Monocytes % 8.3 Eosinophils % 0.2 Basophils % 0.2 Nucleated RBC % 0.0 Absolute Neutrophils 10.61 H Absolute Lymphocytes 0.93 L Absolute Monocytes 1.06 H Absolute Eosinophils 0.03 Absolute Basophils 0.03 PT 23.7 H INR 2.3 H APTT 45.7 H VBG pH VBG pCO2 VBG pO2 VBG HCO3 VBG Total CO2 VBG O2 Saturation VBG Base Excess VBG Lactate Sodium 131 L Potassium 2.5 L* Chloride 91 L Carbon Dioxide 27.3 Anion Gap 12.7 H BUN 54 H Creatinine 4.8 H* Est GFR (CKD-EPI 2020) 11.37 Glucose 209 H Calcium 9.4 Magnesium 2.2 Total Bilirubin 1.0 AST 44 H ALT 34 Alkaline Phosphatase 150 H Troponin I NT-Pro-B Natriuret Pep Total Protein 8.9 H Albumin 2.7 L Procalcitonin Urine Color Urine Clarity Urine pH Ur Specific [place] Urine Protein Urine Ketones Urine Blood Urine Nitrite Urine Bilirubin Urine Urobilinogen Ur Leukocyte Esterase Urine RBC Urine WBC Ur Epithelial Cells Urine Crystals Urine Bacteria Urine Casts Urine Mucus Ur Culture Indicated? Urine Glucose COVID-19 Source SARS-CoV-2 (PCR) Influenza Type A (PCR) Influenza Type B (PCR) RSV (PCR) 12/31/22 12/31/22 12/31/22 07:00 07:13 07:17 WBC RBC Hgb Hct MCV MCH MCHC RDW Plt Count MPV Immature Gran % Neutrophils % Lymphocytes % Monocytes % Eosinophils % Basophils % Nucleated RBC % Absolute Neutrophils Absolute Lymphocytes Absolute Monocytes Absolute Eosinophils Absolute Basophils PT INR APTT VBG pH VBG pCO2 VBG pO2 VBG HCO3 VBG Total CO2 VBG O2 Saturation VBG Base Excess VBG Lactate 1.7 H Sodium Potassium Chloride Carbon Dioxide Anion Gap BUN Creatinine Est GFR (CKD-EPI 2020) Glucose Calcium Magnesium Total Bilirubin AST ALT Alkaline Phosphatase Troponin I 89 H* NT-Pro-B Natriuret Pep Total Protein Albumin Procalcitonin 0.5 Urine Color Urine Clarity Urine pH Ur Specific [place] Urine Protein Urine Ketones Urine Blood Urine Nitrite Urine Bilirubin Urine Urobilinogen Ur Leukocyte Esterase Urine RBC Urine WBC Ur Epithelial Cells Urine Crystals Urine Bacteria Urine Casts Urine Mucus Ur Culture Indicated? Urine Glucose COVID-19 Source Nasopharynx SARS-CoV-2 (PCR) Negative Influenza Type A (PCR) Negative Influenza Type B (PCR) Negative RSV (PCR) Negative 12/31/22 12/31/22 12/31/22 07:50 08:12 09:55 WBC RBC Hgb Hct MCV MCH MCHC RDW Plt Count MPV Immature Gran % Neutrophils % Lymphocytes % Monocytes % Eosinophils % Basophils % Nucleated RBC % Absolute Neutrophils Absolute Lymphocytes Absolute Monocytes Absolute Eosinophils Absolute Basophils PT INR APTT VBG pH 7.44 H VBG pCO2 41 VBG pO2 23 VBG HCO3 28 VBG Total CO2 26 VBG O2 Saturation 42 VBG Base Excess 4 H VBG Lactate Sodium Potassium Chloride Carbon Dioxide Anion Gap BUN Creatinine Est GFR (CKD-EPI 2020) Glucose Calcium Magnesium Total Bilirubin AST ALT Alkaline Phosphatase Troponin I 86 H* NT-Pro-B Natriuret Pep Total Protein Albumin Procalcitonin Urine Color Yellow Urine Clarity Sl Cloudy Urine pH 6.0 Ur Specific [place] 1.015 Urine Protein 100 H Urine Ketones Negative Urine Blood Large H Urine Nitrite Positive H Urine Bilirubin Negative Urine Urobilinogen 0.2 Ur Leukocyte Esterase Small H Urine RBC 10-20 H Urine WBC 5-10 Ur Epithelial Cells Rare Urine Crystals Moderate Amorphous Urine Bacteria Moderate Urine Casts Negative Urine Mucus Trace Ur Culture Indicated? Yes Urine Glucose 500 H COVID-19 Source SARS-CoV-2 (PCR) Influenza Type A (PCR) Influenza Type B (PCR) RSV (PCR) 12/31/22 09:55 WBC RBC Hgb Hct MCV MCH MCHC RDW Plt Count MPV Immature Gran % Neutrophils % Lymphocytes % Monocytes % Eosinophils % Basophils % Nucleated RBC % Absolute Neutrophils Absolute Lymphocytes Absolute Monocytes Absolute Eosinophils Absolute Basophils PT INR APTT VBG pH VBG pCO2 VBG pO2 VBG HCO3 VBG Total CO2 VBG O2 Saturation VBG Base Excess VBG Lactate Sodium Potassium Chloride Carbon Dioxide Anion Gap BUN Creatinine Est GFR (CKD-EPI 2020) Glucose Calcium Magnesium Total Bilirubin AST ALT Alkaline Phosphatase Troponin I NT-Pro-B Natriuret Pep 7516 H Total Protein Albumin Procalcitonin Urine Color Urine Clarity Urine pH Ur Specific [place] Urine Protein Urine Ketones Urine Blood Urine Nitrite Urine Bilirubin Urine Urobilinogen Ur Leukocyte Esterase Urine RBC Urine WBC Ur Epithelial Cells Urine Crystals Urine Bacteria Urine Casts Urine Mucus Ur Culture Indicated? Urine Glucose COVID-19 Source SARS-CoV-2 (PCR) Influenza Type A (PCR) Influenza Type B (PCR) RSV (PCR) Last Vital Signs Temp 99.3 F 12/31/22 10:34 Pulse 93 H 12/31/22 13:59 Resp 24 12/31/22 13:59 BP 110/61 12/31/22 13:59 Pulse Ox 96 12/31/22 13:59 PAWSS Pt Consumed Any Amount of Alcohol Within the Last 30 days OR had positive SAL Upon Admission: No Time Spent Time spent with Patient: >75 minutes Time was spent: preparing to see the patient(eg.review tests), obtaining and/or reviewing separately otained hiistory, ordering medications,tests, procedures, referring, communicating with other health palliative care physician, indepentently interpreting results, counseling the patient and care coordination
--- NOTE | 2022-12-31 14:29 | HPE_ITS ---
Date of service: 12/31/22 Time of Service: 15:53 Assessment and Plan Assessment and plan (1) Acute UTI: Status: Acute Assessment and plan: Present on admission Associated with a griffin catheter. Griffin catheter was changed. Was empirically started on ceftriaxone. Continue IVF. Trend procalcitonin. (2) Acute kidney injury superimposed on chronic kidney disease: Status: Acute Assessment and plan: Clinically dehydrated, so suspect that this is prerenal. IVF. Check Cr in am. Check CPK. hold nephrotoxic drugs. 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 (5) Acute hypokalemia: Status: Acute Assessment and plan: Replete, recheck in am (6) Diabetes mellitus: Status: Chronic Assessment and plan: Cover with SSI. Hold jardiance and glipizide. (7) Atrial fibrillation: Status: Chronic Assessment and plan: Continue coumadin. Split metoprolol into 25 mg PO Q6hrs w/ holding parameters. Monitor on tele. (8) LUCAS on CPAP: Assessment and plan: Continue CPAP. (9) DVT prophylaxis: Status: Acute Assessment and plan: On therapeutic coumadin (10) Discharge planning issues: Status: Acute Assessment and plan: DNR/DNI C/s PT History of Present Illness History of Present Illness Chief Complaint: I am here because of low blood pressure. Low UOP, unable to walk, confuse Narrative: Mr Winkler is an 82 year old male with PMHx of R heart failure as well as Afib on coumadin, CKD w/ a baseline Cr of 3.0, IDDM2, chronic indwelling griffin catheter for a h/o urinary retention, whom the hospitalist service was asked to admit for a UTI, encephalopathy, and KENNETH on CKD. The patient states that he is here because of low blood pressure and weakness. He denies having fevers, a cough, falls, or any other symptoms including chest pain or shortness of breath at home, and states that the symptoms have lasted for two days. The patient's is not available in the room to provide history at the time of my visit, but did speak with Yesenia Luis, student nurse practitioner, who reported that over the past two weeks, the patient has had a decreased UOP, difficulty walking, and confusion, having a hard time explaining his ideas. He had a hard time transferring. Did feel warm at home when seated near a stove; temp normalized when seated farther away from it.They called EMS 1 week ago, but were told: Everything was full, so a decision was made to stay home. SBP were 80s-90s at home for the last couple of days, so they again called EMS and came to [facility] ED. Here the workup was consistent with a UTI and dehydration. He was initiated on IV ceftriaxone and IVF, and his griffin catheter was changed in the ER. Hospitalist admission was requested. Review of Systems All systems reviewed & are unremarkable except as noted in HPI and below PFSH All Active Problems (Updated 12/31/22 @ 16:44 by Anali Miller MD) Discharge planning issues (Acute) DVT prophylaxis (Acute) Dehydration (Acute) Acute kidney injury superimposed on chronic kidney disease (Acute) Hypokalemia (Acute) Acute renal failure (Acute) Acute hypokalemia (Acute) Acute UTI (Acute) Acute dehydration (Acute) Diabetes mellitus (Chronic) Atrial fibrillation (Chronic) on coumadin Chronic kidney disease (Chronic) 2020- borderline stage 4 Venous insufficiency (chronic) (peripheral) (Acute) Nail dystrophy (Acute) COVID-19 (Acute ~08/05/22) Thumb pain (Acute) Right heart failure (Acute) Urinary retention (Acute) 11/2021, ultrasound shows significant pretty and post void residual- minimal response to voiding Kidney stones (Chronic) Longstanding history of multiple stones 11/2021 ultrasound showed multiple stones in kidney, 1 stone possibly in right ureter Anemia (Chronic) Chronic mild anemia, associated with CKD Obstructive sleep apnea (Chronic) cpap Acute on chronic heart failure with preserved ejection fraction (Acute) Hives (Acute) Obesity (Acute 02/11/13) Obstructive nephropathy (Acute) Moderate pulmonary arterial systolic hypertension (Chronic) Chronic anticoagulation (Chronic) Polyp of colon (Chronic) Rosacea (Chronic) Constipation (Chronic) CHF (congestive heart failure) (Chronic) Medical History Atrial fibrillation BPH (benign prostatic hyperplasia) Diabetes mellitus type 2 in obese Essential hypertension, benign GERD (gastroesophageal reflux disease) Hyperlipidemia Nephrolithiasis Obesity hypoventilation syndrome LUCAS on CPAP Palliative care patient Surgical History Cholecystectomy (~1985) Colonoscopy - MAC (~2002) Replacement of total knee joint B/L Tonsillectomy and adenoidectomy Family History Mother Diabetes Heart disease Father Neoplasm STOMACH Brother Neoplasm Brother No problems noted. Daughter No problems noted. Social History Smoking/Tobacco Use Status: Never Second Hand Exposure: No Smoking risk assessment performed?: Yes Alcohol Intake: current Alcohol Intake frequency: holidays/special occasions only Drug use: Never Substance use type: does not use Caregiver/Support person: Yes Household members: spouse Housing: house Communication Needs: Hard of Hearing Do you need help understanding health information?: Often Pets and animals: No Sexually active: No What is your relationship status?: How often do you talk on the phone with friends or family?: decline to answer How often do you get together with friends or relatives?: decline to answer How often do you attend islam or congregational services?: decline to answer Do you belong to any clubs or organized social groups?: decline to answer Panel score (0-1 are the most socially isolated patients): 1 What type of physical activity do you participate in: walking Duration: < 15 minutes/day Frequency: daily Special amor needs: No Do you feel safe at home: Yes Do you feel safe in your relationship?: Yes Meds Allergies and Home Medications Allergies Allergy/AdvReac Type Severity Reaction Status Date / Time No Known Allergies Allergy Verified 12/31/22 07:55 Home Medications Medication Instructions Recorded Confirmed Type multivitamin (Daily Multiple 1 ea PO DAILY 12/11/16 12/31/22 History tablet) blood-glucose meter ([employer] ##1 02/12/17 12/31/22 History Ultra2 Meter kit) omeprazole 20 mg capsule,delayed 20 mg PO DAILY 04/15/18 12/31/22 History release lancets (Pro Stream +Touch UltraSoft #90 ea 11/06/18 12/31/22 Rx Lancets) acetaminophen 325 mg tablet 650 mg PO Q4H PRN PRN #0 tabs 04/20/19 12/31/22 Rx (Tylenol) docusate sodium 100 mg capsule 100 mg PO DAILY 10/27/21 12/31/22 History (Colace) torsemide 20 mg tablet 40 mg PO BID #360 tabs 02/02/22 12/31/22 Rx amlodipine 5 mg tablet 5 mg PO DAILY #90 tab-caps 03/12/22 12/31/22 Rx metoprolol tartrate 100 mg tablet 50 mg PO BID #60 tabs 03/21/22 12/31/22 Rx 5-hydroxytryptophan (5-HTP) 100 mg 100 mg PO DAILY 04/10/22 12/31/22 History capsule (5-HTP) coenzyme Q10 10 mg capsule (Co 10 mg PO DAILY 04/10/22 12/31/22 History Q-10) melatonin 5 mg capsule 5 mg PO HS 04/10/22 12/31/22 History blood sugar diagnostic (OneTouch #90 strips 05/17/22 12/31/22 Rx Ultra Test strips) pravastatin 40 mg tablet 40 mg PO QPM #90 tabs 05/30/22 12/31/22 Rx glipizide 5 mg tablet 10 mg PO DAILY #180 tabs 06/25/22 12/31/22 Rx potassium chloride 10 mEq 30 meq PO DAILY #270 tabs 08/30/22 12/31/22 Rx tablet,extended release(part/cryst) (Klor-Con M) tamsulosin 0.4 mg capsule 0.4 mg PO HS #90 caps 08/31/22 12/31/22 Rx empagliflozin 25 mg tablet 25 mg PO QAM #90 tabs 10/10/22 12/31/22 Rx (Jardiance) lidocaine HCl 2 % mucosal jelly in 10 ml intra-urethral ONCE #120 mL 10/31/22 12/31/22 Rx applicator (Glydo) lactulose 10 gram oral packet 10 g PO DAILY PRN constipation #30 11/05/22 12/31/22 Rx ea finasteride 5 mg tablet 5 mg PO DAILY #90 tabs 12/11/22 12/31/22 Rx pen needle, diabetic 33 gauge x #100 ea 12/11/22 12/31/22 Rx 3/16 (Comfort EZ Pen [place]) warfarin 2.5 mg tablet 2.5 mg PO DAILY #90 tabs 12/11/22 12/31/22 Rx insulin glargine 100 unit/mL (3 12 unit (0.12 mL) subcut QPM #15 mL 12/26/22 12/31/22 Rx mL) subcutaneous pen (Lantus Solostar U-100 Insulin) metolazone 5 mg tablet 5 mg PO .q Thurs, Mon PRN weight 12/31/22 12/31/22 History gain 3lbs/day or 7 lbs/week Exam Narrative Exam Narrative: General: Pleasant obese male who is minimally tachypneic, but not in acute respiratory distress, on RA, A&Ox3 Neurological: A&Ox3, no focal deficits Psychiatric: Appropriate speech pattern/content Skin: Chronic venous stasis dermatitis, no open lesions, otherwise visible skin is intact HEENT: Atraumatic, normocephalic, EOMI, dry MM, clear oropharynx, no submandibular or cervical lymphadenopathy, no goiter or JVD Cardiovascular: irregularly irregular rhythm, no m/r/g Lungs: CTAB Gastrointestinal: soft, obese, nontender Genitourinary: has a foely - draining concentrated yellow urine Extremities: trace edema BLEs, chronic venous stasis dermatitis Results Imaging Additional studies: US renal: 1.5 cm nonobstructing stone mid left kidney.? No evidence of hydronephrosis. CXR: No acute? findings. CT head w/o contrast: No acute intracranial process.? Chronic sinus disease, particularly of the left maxillary sinus. EKG: Afib, HR 75, nonspecific ST-T changes, no acute ischemia Labs 12/31/22 07:00 12/31/22 07:00 Labs: Laboratory Results - last 24 hr 12/31/22 12/31/22 12/31/22 07:00 07:00 07:00 WBC 12.72 H RBC 4.20 L Hgb 11.3 L Hct 35.3 L MCV 84 MCH 26.9 L MCHC 32.0 RDW 15.3 H Plt Count 205 MPV 9.3 Immature Gran % 0.6 Neutrophils % 83.4 Lymphocytes % 7.3 Monocytes % 8.3 Eosinophils % 0.2 Basophils % 0.2 Nucleated RBC % 0.0 Absolute Neutrophils 10.61 H Absolute Lymphocytes 0.93 L Absolute Monocytes 1.06 H Absolute Eosinophils 0.03 Absolute Basophils 0.03 PT 23.7 H INR 2.3 H APTT 45.7 H VBG pH VBG pCO2 VBG pO2 VBG HCO3 VBG Total CO2 VBG O2 Saturation VBG Base Excess VBG Lactate Sodium 131 L Potassium 2.5 L* Chloride 91 L Carbon Dioxide 27.3 Anion Gap 12.7 H BUN 54 H Creatinine 4.8 H* Est GFR (CKD-EPI 2020) 11.37 Glucose 209 H Calcium 9.4 Magnesium 2.2 Total Bilirubin 1.0 AST 44 H ALT 34 Alkaline Phosphatase 150 H Troponin I NT-Pro-B Natriuret Pep Total Protein 8.9 H Albumin 2.7 L Procalcitonin Urine Color Urine Clarity Urine pH Ur Specific Wagoner Urine Protein Urine Ketones Urine Blood Urine Nitrite Urine Bilirubin Urine Urobilinogen Ur Leukocyte Esterase Urine RBC Urine WBC Ur Epithelial Cells Urine Crystals Urine Bacteria Urine Casts Urine Mucus Ur Culture Indicated? Urine Glucose COVID-19 Source SARS-CoV-2 (PCR) Influenza Type A (PCR) Influenza Type B (PCR) RSV (PCR) 12/31/22 12/31/22 12/31/22 07:00 07:13 07:17 WBC RBC Hgb Hct MCV MCH MCHC RDW Plt Count MPV Immature Gran % Neutrophils % Lymphocytes % Monocytes % Eosinophils % Basophils % Nucleated RBC % Absolute Neutrophils Absolute Lymphocytes Absolute Monocytes Absolute Eosinophils Absolute Basophils PT INR APTT VBG pH VBG pCO2 VBG pO2 VBG HCO3 VBG Total CO2 VBG O2 Saturation VBG Base Excess VBG Lactate 1.7 H Sodium Potassium Chloride Carbon Dioxide Anion Gap BUN Creatinine Est GFR (CKD-EPI 2020) Glucose Calcium Magnesium Total Bilirubin AST ALT Alkaline Phosphatase Troponin I 89 H* NT-Pro-B Natriuret Pep Total Protein Albumin Procalcitonin 0.5 Urine Color Urine Clarity Urine pH Ur Specific Wagoner Urine Protein Urine Ketones Urine Blood Urine Nitrite Urine Bilirubin Urine Urobilinogen Ur Leukocyte Esterase Urine RBC Urine WBC Ur Epithelial Cells Urine Crystals Urine Bacteria Urine Casts Urine Mucus Ur Culture Indicated? Urine Glucose COVID-19 Source Nasopharynx SARS-CoV-2 (PCR) Negative Influenza Type A (PCR) Negative Influenza Type B (PCR) Negative RSV (PCR) Negative 12/31/22 12/31/22 12/31/22 07:50 08:12 09:55 WBC RBC Hgb Hct MCV MCH MCHC RDW Plt Count MPV Immature Gran % Neutrophils % Lymphocytes % Monocytes % Eosinophils % Basophils % Nucleated RBC % Absolute Neutrophils Absolute Lymphocytes Absolute Monocytes Absolute Eosinophils Absolute Basophils PT INR APTT VBG pH 7.44 H VBG pCO2 41 VBG pO2 23 VBG HCO3 28 VBG Total CO2 26 VBG O2 Saturation 42 VBG Base Excess 4 H VBG Lactate Sodium Potassium Chloride Carbon Dioxide Anion Gap BUN Creatinine Est GFR (CKD-EPI 2020) Glucose Calcium Magnesium Total Bilirubin AST ALT Alkaline Phosphatase Troponin I 86 H* NT-Pro-B Natriuret Pep Total Protein Albumin Procalcitonin Urine Color Yellow Urine Clarity Sl Cloudy Urine pH 6.0 Ur Specific Wagoner 1.015 Urine Protein 100 H Urine Ketones Negative Urine Blood Large H Urine Nitrite Positive H Urine Bilirubin Negative Urine Urobilinogen 0.2 Ur Leukocyte Esterase Small H Urine RBC 10-20 H Urine WBC 5-10 Ur Epithelial Cells Rare Urine Crystals Moderate Amorphous Urine Bacteria Moderate Urine Casts Negative Urine Mucus Trace Ur Culture Indicated? Yes Urine Glucose 500 H COVID-19 Source SARS-CoV-2 (PCR) Influenza Type A (PCR) Influenza Type B (PCR) RSV (PCR) 12/31/22 09:55 WBC RBC Hgb Hct MCV MCH MCHC RDW Plt Count MPV Immature Gran % Neutrophils % Lymphocytes % Monocytes % Eosinophils % Basophils % Nucleated RBC % Absolute Neutrophils Absolute Lymphocytes Absolute Monocytes Absolute Eosinophils Absolute Basophils PT INR APTT VBG pH VBG pCO2 VBG pO2 VBG HCO3 VBG Total CO2 VBG O2 Saturation VBG Base Excess VBG Lactate Sodium Potassium Chloride Carbon Dioxide Anion Gap BUN Creatinine Est GFR (CKD-EPI 2020) Glucose Calcium Magnesium Total Bilirubin AST ALT Alkaline Phosphatase Troponin I NT-Pro-B Natriuret Pep 7516 H Total Protein Albumin Procalcitonin Urine Color Urine Clarity Urine pH Ur Specific Wagoner Urine Protein Urine Ketones Urine Blood Urine Nitrite Urine Bilirubin Urine Urobilinogen Ur Leukocyte Esterase Urine RBC Urine WBC Ur Epithelial Cells Urine Crystals Urine Bacteria Urine Casts Urine Mucus Ur Culture Indicated? Urine Glucose COVID-19 Source SARS-CoV-2 (PCR) Influenza Type A (PCR) Influenza Type B (PCR) RSV (PCR) Last Vital Signs Temp 37.4 C 12/31/22 10:34 Pulse 93 H 12/31/22 13:59 Resp 24 12/31/22 13:59 BP 110/61 12/31/22 13:59 Pulse Ox 96 12/31/22 13:59 Time Spent Time spent with Patient: 55-74 minutes Time was spent: preparing to see the patient(eg.review tests), obtaining and/or reviewing separately otained hiistory, ordering medications,tests, procedures, referring, communicating with other health team primary care physician, indepentently in terpreting results, counseling the patient and care coordination
[2022-12-31] MEDS: Insulin Aspart 300 UNITS/3 ML PEN SC (18:07)
[2022-12-31] MEDS: Metoprolol 25 MG TAB PO (18:09)
[2022-12-31 18:11] LABS: Lab Add On Test DONE
[2022-12-31 18:24] LABS: Creatine Kinase 55 U/L (39-308)
[2022-12-31] MEDS: Acetaminophen 325 MG TAB PO (20:13)
[2022-12-31] MEDS: Insulin Glargine 300 UNITS/3 ML PEN 12 UNITS SC (20:14)
[2022-12-31] MEDS: Pravastatin 40 MG TAB PO (20:15)
[2023-01-01] VITALS (104 sets, daily range): BP systolic 73–122; BP diastolic 47–79; PULSE 64–176; RESP 18–24; TEMP 36.4–38; O2SAT 92–97
--- NOTE | 2023-01-01 | DI.US_ITS ---
APPROVED REPORT EXAM: Comprehensive 2D, Doppler, and color-flow Echocardiogram Patient Location: ER Room/Bed: 6 Jigsawyer: Barbara Hughes RDCS (AE) Indications: CHF Other Information Study Quality: Poor. Technically limited study due to body habitus, inability to position patient exa m done supine bedside in the ER. Conclusion Technically difficult and suboptimal study Left ventricle appears grossly normal in size and systolic function, EF 55%. Unable to assess segmen ike wall motion Right ventricle is not well visualized The right atrium is mildly dilated. The left atrium is moderately dilated The aortic valve is sclerotic and probably trileaflet with trace regurgitation Mitral annular calcification, trace mitral regurgitation Right ventricular systolic pressure could not be estimated Wall motion Left Ventricle Technically limited parasternal imaging. The left ventricular systolic function is normal. The left v entricular ejection fraction is within the normal range. Regional wall motion abnormalities cannot be excluded. There is no ventricular septal defect visualized. LVEF is 55%. Right Ventricle Right ventricle is not well visualized. Right ventricular systolic function could not be assessed. Atria Left atrium is moderately dilated. Right atrium is mildly dilated. The interatrial septum is intact w ith no evidence for an atrial septal defect. Aortic Valve The Aortic valve is sclerotic. Aortic valve is probably trileaflet. There is no aortic valvular steno sis. Trace aortic regurgitation. Mitral Valve There is mitral annular calcification. No evidence of mitral valve stenosis. Trace mitral regurgitati on. Tricuspid Valve The tricuspid valve is normal in structure. There is no tricuspid valve stenosis. Trace tricuspid reg urgitation. Unable to assess PA pressure. Pulmonic Valve Pulmonic valve is not well visualized. There is no pulmonic valvular stenosis. There is no pulmonic v alvular regurgitation. Great Vessels The aortic root is normal in size. Ascending aorta is not well visualized. Aortic arch is not well vi sualized. IVC is normal in size and collapses >50% with inspiration. Pericardium Limited subcostal imaging. 2D Dimensions Ao Root d 3.39 cm M: 3.1 - 3.7 LV Vol A2C d MOD 174.4 mL LVEF (Nazario's) 48.66 % M: 52 - 72 LV Vol A4C d MOD 157.3 mL LV Volume 117.87 mL M: 62 - 150 LV EF A4C MOD 50.2 % LV Volume Index 42.86 mL/m2 M: 34 - 74 LV EF A2C MOD 45.6 % LV Vol Biplane MOD 172.9 mL LV EF Biplane MOD 48.7 % SV 84.12 mL SV Index 30.59 mL/m2 LV Diastology MV E' lateral 0.119 (>0.1 m/s) MV E Vmax 1.08 (0.4-1.3 m/s) LV E/e LAT 9.00 (<14) MV E/E' lateral 9.04 Aortic Valve LVOT Area 3.22 cm2 AoV Area Vmax 2.11 cm2 LVOT Vmax 0.99 m/s AoV Area/ BSA (Vmax) 0.77 cm2/m2 LVOT Mean Uriah. 0.72 m/s TO Mean Uriah. 2.22 cm2 LVOT Peak Grad 3.9 mmHg TO Mean Uriah. Index 0.81 cm2/m2 LVOT Mean Grad 2.4 mmHg LVOT VTI 0.162 m LVOT Diam s 2.00 cm AoV Vmax 1.52 m/s Velocity Ratio 0.65 AoV Mean Uriah. 1.05 m/s AoV Peak Grad 9.2 mmHg LVOT SV 52.04 mL AoV Mean Grad 5.0 mmHg AoV VTI 0.209 m AoV Area VTI 2.49 cm2 AoV Area/ BSA (VTI) 0.91 cm/m2 Mitral Valve MV DT 279 (160-240 msec) MV PHT 81 msec MV Area PHT 2.72 cm2 MV VTI 0.259 m MV Area VTI 2.01 (4.0-6.0 cm2) Pulmonary Valve PV Vmax 1.13 (0.5-1.5 m/s) RVOT Peak Gr. 2.83 mmHg PV Peak Grad 5.1 mmHg RVOT Mean Gr. 1.90 mmHg PV Mean Grad 3.3 mmHg RVOT VTI 0.129 m PV VTI 0.166 m RVOT Vmax 0.84 m/s
[2023-01-01] MEDS: Insulin Aspart 300 UNITS/3 ML PEN SC ×5 (00:16→21:34)
[2023-01-01] MEDS: Tamsulosin 0.4 MG CAPCR PO ×2 (00:17→21:32)
[2023-01-01] MEDS: Melatonin 3 MG TAB 6 MG PO ×2 (00:17→21:32)
[2023-01-01 05:48] LABS: Abs Immature Grans 0.14 10^3/uL (0.0-0.06); Absolute Basophil Count 0.03 10^3/uL (0.0-0.2); Absolute Eosinophil Count 0.02 10^3/uL (0.0-0.7); Absolute Lymphocyte Count 1.37 10^3/uL (1.2-3.4); Absolute Monocyte Count 1.13 10^3/uL (0.1-0.8); Absolute Neutrophil Count 12.84 10^3/uL (1.2-6.7); Basophils % 0.2; Eosinophils % 0.1; HCT 31.7 % (40.0-50.0); HGB 10.2 g/dL (13.5-17.5); Immature Grans % 0.9; Lymphocytes % 8.8; MCH 27.4 pg (27.0-33.0); MCHC 32.2 % (32.0-36.0); MCV 85 fL (80-95); MPV 9.1 fL (8.0-11.0); Monocytes % 7.3; Neutrophils % 82.7; Platelet Count 192 10^3/uL (130-400); RBC 3.72 10^6/uL (4.36-5.78); RDW 15.4 % (11.8-14.1); RDW-SD 47.8 fL; WBC 15.52 10^3/uL (4.4-10.8)
[2023-01-01 06:00] LABS: INR 2.5 (0.9-1.1); Prothrombin Time 25.3 sec (9.3-11.0)
[2023-01-01 06:01] LABS: Anion Gap 11.8 mmol/L (3-11); BUN 60 mg/dL (7-18); CO2 26.2 mmol/L (21.0-32.0); Calcium 9.2 mg/dL (8.5-10.1); Chloride 96 mmol/L (98-107); Estimated GFR 11.09 (mL/min/1.73m2); Glucose 169 mg/dL (74-106); Magnesium 2.2 mg/dL (1.8-2.4); Potassium 3.1 mmol/L (3.5-5.1); Sodium 134 mmol/L (136-145)
[2023-01-01 06:09] LABS: CREATININE 4.9 mg/dL (0.70-1.30)
--- NOTE | 2023-01-01 06:44 | NUR.NOTE ---
MD Ant called and alerted to pt's am labwork. Asked MD to consider additional abx to treat UTI. Updated on VS and current status. No new orders received.
[2023-01-01 07:50] LABS: Lab Add On Test DONE
[2023-01-01] MEDS: Potassium Chloride 20 MEQ TABCR 40 MEQ PO (08:01)
[2023-01-01] MEDS: cefTRIAXone 2 GM/50 ML BAG IVPB (08:01)
[2023-01-01] MEDS: Omeprazole 20 MG CAPCR PO (08:01)
[2023-01-01] MEDS: Docusate Sodium 100 MG CAP PO (08:01)
[2023-01-01] MEDS: Multivitamin TAB 1 TAB PO (08:11)
[2023-01-01] MEDS: Finasteride 5 MG TAB PO (08:11)
[2023-01-01 08:13] LABS: NT-proBNP 7158 pg/mL (<300)
--- NOTE | 2023-01-01 14:04 | PGE_ITS ---
The patient was seen and examined by me independently. Please, see my note from same date for the official assessment and plan. Date of Service Date of service: 01/01/23 Time of Service: 14:04 Assessment and Plan Assessment and plan (1) Bacteremia: Status: Acute Assessment and plan: Blood cultures are showing Gram negative bacteremia in one bottle out of 4. Cem ayala's clinical picture of leukocytosis, fever, and hypotension, KENNETH and AMS was correlating with septic presentation, qualifying him for sepsis. Broad spectrum antibiotic, Ceftriaxone was initiated covering the diagnosed UTI as patient had a previous UTI from E. Coli on 02/2022. Ceftriaxone also offers some coverage for GPC, but not MRSA, as he lives at home, was not hospitalized in the past 90 days, and did not require vasopressors or invasive respiratory support; still a low grade fever at 100.4 this afternoon. We will continue the coverage with the Ceftriaxone. In the event P. Aeruginosa was detected, we would change the coverage to Cefepime (2) Acute UTI: Status: Acute Assessment and plan: Patient presented with fever,mild leukocytosis with WBC 12.72, urine was positive for blood, nitrites and and leukocyte esterase. Treated with Ceftriaxone 2gm IV, urine and one bottle of blood cultures growing Gram-negative rods Patient has a history of E. Coli in the urine. Will continue daily ceftriaxone and narrow down coverage if indicated. , (3) Acute renal failure: Status: Acute Assessment and plan: Patient has a history of CKD with previous creatinine of 3.0 on 08/30/2022 and 4.9 today. Most AKIs result from pre-renal azotemia and IV fluid, the main intervention did not result in lower creatinine. In the context of cardiorenal syndrome diuretic therapy might be an option to mitigate the reduce renal perfusion due to a decline in CO induced by lower filling pressures. Considering diuresis. K was 3.1, monitor and replace electrolytes (4) Atrial fibrillation: Assessment and plan: Chronic A-fib, on warfarin and metoprolol tartrate; telemetry A-fib HR 88 to 122 Will continue therapy Qualifiers: Atrial fibrillation type: longstanding persistent Qualified Code(s): I48.11 - Longstanding persistent atrial fibrillation (5) CHF (congestive heart failure): Status: Chronic Assessment and plan: Patient has a history of HFpEF with LVEF of 55% as per 10/2021 He was on Torsemide, metolazone ,and jardiance. We will hold diuretics for now: Hold torsemide and metolazone hold jardiance Consider repeating the echocardiography: EF maintained at 55% as per imaging completed on 01/01/2023 (6) BPH (benign prostatic hyperplasia): Assessment and plan: Patient on Flomax and Finesteride at home, patient has a chronic griffin catheter as per spouse, there will be not voiding trail in the future Hold Flomax and Finesteride (7) Diabetes mellitus type 2 in obese: Assessment and plan: Gluc 169 this AM Will continue lantus and start point of care glucose checks AC and HS with SSI. Will hold glipizide due to KENNETH, hold Jardiance KENNETH and acute UTI (8) Essential hypertension, benign: Assessment and plan: Continue metoprolol and amlodipine. Hold amlodipine for MAP <65 (9) GERD (gastroesophageal reflux disease): Assessment and plan: Patient is on home omeprazole will continue therapy (10) LUCAS on CPAP: Assessment and plan: Patient is on home CPAP. Device brought to the hospital. RT completed the verification and set up. (11) Hypokalemia: Status: Acute Assessment and plan: K=3.1, no loop diuretic today, replacement provided. BMP in AM (12) DVT prophylaxis: Status: Acute Assessment and plan: INR 2.5 Patient is on warfarin for atrial fibrillation and this will cover DVT prophylaxis (13) Discharge planning issues: Status: Acute Assessment and plan: Plan for discharge not determined at this time: home versus rehab. Discussed with Dr. Miller Subjective Subjective Interval history since last seen: Patient reports feeling better, sleeping well, denies chills, dizziness, change in vision, chest pain. Denies increased shortness of breath, sore throat, dysphagia, nausea or vomiting.He reports eating and drinking well, able to mobilized himself in bed. He reports having a bowel movement today. Exam Narrative Exam Narrative: Patient is in bed with spouse at bedside. Speaks in short sentences a few words a the time, makes eye contact and adequate interaction Head is atraumatic, conjugated gaze No adenopathy Alert and oriented X3, follows commands S1,S2, no murmur, in atrial fibrillation, on telemetry monitoring HR 80-90's, decreased edema to lower extremities, radial and pedal pulses are present Bibasilar crackles heard to lung trevino, clear posterior upper lobes Abdomen is large, non-tender, distended, umbilical hernia can be reduced without pain Griffin in place draining yellow urine with copious sediment Generalized mild weakness No bruising or lesion to skin, but hyperpigmentation to bilateral lower extremities No signs of psychological distress noted. Objective Last Vital Signs Temp 98.9 F 01/01/23 11:11 Pulse 100 H 01/01/23 12:30 Resp 21 01/01/23 11:11 BP 105/62 01/01/23 12:30 Pulse Ox 92 01/01/23 11:11 Laboratory Results - last 24 hr 12/31/22 12/31/22 01/01/23 09:55 18:10 05:35 WBC RBC Hgb Hct MCV MCH MCHC RDW Plt Count MPV Immature Gran % Neutrophils % Lymphocytes % Monocytes % Eosinophils % Basophils % Nucleated RBC % Absolute Neutrophils Absolute Lymphocytes Absolute Monocytes Absolute Eosinophils Absolute Basophils PT INR Sodium 134 L Potassium 3.1 L Chloride 96 L Carbon Dioxide 26.2 Anion Gap 11.8 H BUN 60 H Creatinine 4.9 H* Est GFR (CKD-EPI 2020) 11.09 Glucose 169 H Calcium 9.2 Magnesium 2.2 Creatine Kinase 55 NT-Pro-B Natriuret Pep Add-On Test Request DONE 01/01/23 01/01/23 01/01/23 05:35 05:35 05:35 WBC 15.52 H RBC 3.72 L Hgb 10.2 L Hct 31.7 L MCV 85 MCH 27.4 MCHC 32.2 RDW 15.4 H Plt Count 192 MPV 9.1 Immature Gran % 0.9 Neutrophils % 82.7 Lymphocytes % 8.8 Monocytes % 7.3 Eosinophils % 0.1 Basophils % 0.2 Nucleated RBC % 0.0 Absolute Neutrophils 12.84 H Absolute Lymphocytes 1.37 Absolute Monocytes 1.13 H Absolute Eosinophils 0.02 Absolute Basophils 0.03 PT 25.3 H INR 2.5 H Sodium Potassium Chloride Carbon Dioxide Anion Gap BUN Creatinine Est GFR (CKD-EPI 2020) Glucose Calcium Magnesium Creatine Kinase NT-Pro-B Natriuret Pep Add-On Test Request DONE 01/01/23 05:35 WBC RBC Hgb Hct MCV MCH MCHC RDW Plt Count MPV Immature Gran % Neutrophils % Lymphocytes % Monocytes % Eosinophils % Basophils % Nucleated RBC % Absolute Neutrophils Absolute Lymphocytes Absolute Monocytes Absolute Eosinophils Absolute Basophils PT INR Sodium Potassium Chloride Carbon Dioxide Anion Gap BUN Creatinine Est GFR (CKD-EPI 2020) Glucose Calcium Magnesium Creatine Kinase NT-Pro-B Natriuret Pep 7158 H Add-On Test Request PAWSS Pt Consumed Any Amount of Alcohol Within the Last 30 days OR had positive SAL Upon Admission: No Time Spent with Patient Time Spent with Patient: >50 minutes Time was spent: preparing to see the patient(eg.review tests), obtaining and/or reviewing separately otained hiistory, ordering medications,tests, procedures, referring, communicating with other health medical care administrator, indepentently interpreting results, counseling the patient and care coordination
--- NOTE | 2023-01-01 14:39 | PTTR_ITS ---
Date of service: 01/01/23 Time of Service: 14:06 PT Notes Visit Reasons: Sepsis Due to a UTI,PNA Inpatient Physical Therapy Treatment Note [facility] Date: 01/01/2023 PRECAUTIONS: Fall, Activity as tolerated SUBJECTIVE: Sav is pleasant and agreeable to participating in PT. When asked how he is feeling he reports [place] to [place]. OBJECTIVE: PAIN: No c/o pain BED MOBILITY/TRANSFERS Supine-sit: Min A with HOB at 40 degrees Sit-supine: Mod A x2 with HOB flat Sit-stand: CGA Stand-sit: CGA GAIT Assistive Device: FWW Weight bearing: Full Assist: CGA Distance: 4 side steps up the bed Deviation: SOB Static sitting at EOB 2x3 minutes with SBA ASSESSMENT: Patient tolerated session with SOB and increased fatigue with all activity. He demonstrates limited activity tolerance today due to fatigue. He would benefit from continued general conditioning for improved activity tolerance. PLAN: Continue with global strengthening and gait and transfer training for improved activity tolerance. TREATMENT CODE/TIME: 34 minutes; 89065 x2 (14:06)
--- NOTE | 2023-01-01 14:40 | IN_ITS ---
Date of service: 01/01/23 Time of Service: 11:15 PT Notes Visit Reasons: Sepsis Due to a UTI,PNA Inpatient Physical Therapy Evaluation Date: 01/01/2023 Referring Doctor:? Anali Miller MD PT Orders: PT CONSULT: Limited ability Precautions: Fall. Standard. Activity as tolerated. Patient Profile/Admitting Diagnosis:? Patient is a 82-year-old male admitted for the management of acute urinary tract infection, acute renal failure, AF, CHF, BPH, DM TYpe II, HTN, GERD, and hypokalemia. PMHX: All Active Problems?(Updated 12/31/22 @ 16:44 by Anali Miller MD) Discharge planning issues (Acute) DVT prophylaxis (Acute) Dehydration (Acute) Acute kidney injury superimposed on chronic kidney disease (Acute) Hypokalemia (Acute) Acute renal failure (Acute) Acute hypokalemia (Acute) Acute UTI (Acute) Acute dehydration (Acute) Diabetes mellitus (Chronic) Atrial fibrillation (Chronic) on coumadin Chronic kidney disease (Chronic) 2020- borderline stage 4Venous insufficiency (chronic) (peripheral) (Acute) Nail dystrophy (Acute) COVID-19 (Acute ~08/05/22) Thumb pain (Acute) Right heart failure (Acute) Urinary retention (Acute) 11/2021, ultrasound shows significant pretty and post void residual- minimal response to voiding Kidney stones (Chronic) Longstanding history of multiple stones 11/2021 ultrasound showed multiple stones in kidney, 1 stone possibly in right ureter Anemia (Chronic) Chronic mild anemia, associated with CKDObstructive sleep apnea (Chronic) cpap Acute on chronic heart failure with preserved ejection fraction (Acute) Hives (Acute) Obesity (Acute 02/11/13) Obstructive nephropathy (Acute) Moderate pulmonary arterial systolic hypertension (Chronic) Chronic anticoagulation (Chronic) Polyp of colon (Chronic) Rosacea (Chronic) Constipation (Chronic) CHF (congestive heart failure) (Chronic) Medical History? Atrial fibrillation BPH (benign prostatic hyperplasia) Diabetes mellitus type 2 in obese Essential hypertension, benign GERD (gastroesophageal reflux disease) Hyperlipidemia Nephrolithiasis Obesity hypoventilation syndrome LUCAS on CPAP Palliative care patient Surgical History? Cholecystectomy (~1985) Colonoscopy - MAC (~2002) Replacement of total knee joint B/LTonsillectomy and adenoidectomy Social History/Home Situation: Patient lives with Lashawn in a 1 floor house in [facility] with 2 steps to enter, no rails.?? 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 They have one supportive daughter who lives locally. states that she uses a device that she holds up to him so that he can pull on it to sit up in bed. She adds that he has walked for over a week now due to weakness, pain in B knees and fearfulness of falling. Equipment Owned/DME: Bed that has changeable angles at the head and the knee but is not able to move up nor down. Motorized wheelchair. FWW SPC Subjective:? Patient is no longer confident about standing as he does not feel that he could stand up should he fall to the floor at home. Distantly considering short-term rehab placement but is wondering if he can stay in the hospital instead until he gets his strength back. Objective:? General Observation: Supine in bed.? IV access throigh R brachium.? Breathing appeared mildly labored even at rest, worse with exertion. Mental Status: Alert and oriented x 4 Pain: Pain in B knees with weight bearing ROM: Right Upper Extremity: ? Shoulder Flexion about 10 degrees. Shoulder abduction about 10 degrees. Elbow flexion WFL. Wrist flexion WFL. Functional opening and closing of hand WFL. Left Upper Extremity:? Shoulder Flexion about 10 degrees. Shoulder abduction about 10 degrees. Elbow flexion WFL. Wrist flexion WFL. Functional opening and closing of hand WFL. Right Lower Extremity: Hip flexion up to 90 degrees. Hip abduction WFL. Knee flexion 0-100. Ankle dorsiflexion WFL. Ankle plantarflexion WFL. Left Lower Extremity: Hip flexion WFL. Hip abduction WFL. Knee flexion WFL. Ankle dorsiflexion WFL. Ankle plantarflexion WFL. Strength: Right Upper Extremity: Shoulder flexors 2-/5. Shoulder abductors 2-/5. Elbow flexors 4-/5. Elbow extensors 4-/5. Contracts Law Professor strong. Left Upper Extremity: Shoulder flexors 2-/5. Shoulder abductors 2-/5. Elbow flexors 4-/5. Elbow extensors 4-/5. Contracts Law Professor strong. Right Lower Extremity: Hip flexors 3-/5. Hip abductors 4/5. Knee flexors 3-/5. Knee extensors 4-/5. Ankle dorsiflexors 4-/5. Ankle plantarflexors 4-/5. Left Lower Extremity:Hip flexors 3-/5. Hip abductors 4/5. Knee flexors3-/5. Knee extensors 4-/5. Ankle dorsiflexors 4-/5. Ankle plantarflexors 4-/5. Bed Mobility/Transfers: Supine to sit moderate assist of 2 with HOB at 60 degrees Sit to stand minimal assist of 2 Stand to sit minimal assist of 2 Bed to bedside commode minimal assist of 2 bedside commode to bed commode minimal assist of 2 Gait:? Patient tolerated level surface ambulation using FWW with FWB minimal ssist of 2 for 5 steps. Patient was able to return from bedisde commode after 5 short steps with moderate shortness of breath with BP decrease to the high 70s/high 50s mmHg that normalized after 3 minutes of seated rest. Reports instability and fatigue after transfer activities. Balance:? Static Sitting: Good Dynamic Sitting: Good Static Standing: Fair Dynamic Standing: Fair Special Tests: Mobility Limitations Standardized Measure [facility]-PAC 6 clicks Basic Mobility Inpatient Short Form: Raw Score: 12 ? CMS Score: 69% deficit? Informed Consent/Education:? Patient instructed in purpose of PT consult and plan of care.? Patient was educated about about treatment frequency in order to maximize functional mobility performance while reducing onset of fatigue.? Assessment:? Patient is a 82-year-old male admitted for the management of acute urinary tract infection, acute renal failure, AF, CHF, BPH, DM TYpe II, HTN, GERD, and hypokalemia. He presents with considerable functional mobility decline which requires assistnce of two people for al;l mobibility ADL performance. Patient will not thrive well at home only relying on who will not be able to provide the assistance he needs. Patient presents with clinical signs and symptoms consistent with current /admitting diagnoses that have resulted to mobility limitations, gait instability, generalized weakness, and impairment of motor control as demonstrated by the following impairment level findings: 1.? Decreased strength to B LE major muscle groups 2.? Impaired sitting/standing balance 3.? Impaired activity tolerance/endurance 4.? Obesity 5. Shortness of breath 6. fearfulness of falling 7. Pain in B knees Impairments are contributing to the following functional limitations: 1.? Dependent bed mobility skills 2.? Increased dependence with transfers 3.? Inability to safely ambulate without assistive device and physical assistance 4.? Increase completion time for mobility ADL performance 5.? Increased fall risk 6.? Inability to negotiate steps alone safely 7. AMPAC score of 69% deficit Patient is assessed [place] a 52468 moderate complexity based on the following: History: Apparent functional mobility decline and reduced activity tolerance as a result of current medical diagnoses of urinary tract renal insufficiency Examination: Underlying impairments and functional limitations as noted above Presentation:Evolving Decision Makin moderate complexity Goals: Goals X1 week 1. Supine-Sit independent 2. Sit-Supine independent 3. Sit-Stand supervision with FWW 4. Stand-Sit supervision with FWW 5. Bed-Chair supervision with FWW 6. Chair-Bed supervision with FWW 7. Contact guard assist gait on level surface with use of FWW for at least 30 feet without report of pain nor dyspnea 8. Contact guard assist stair negotiation while holding onto bilateral rails for at least 3 steps without report of pain nor dyspnea Plan of Care/Treatment Plan: 1-2x/day, 7 days/week x 1 week. Plan of care has been reviewed with the S[employer] CONSULTANT providing the service under Physical Therapy direction. Initiate Physical Therapy intervention for strengthening, bed mobility, transfers, gait, stairs, balance training, use of assistive device. DISCHARGE RECOMMENDATIONS: [] Home with no services [] [] Home with services [specify] [] Home with outpatient PT [] [X] SNF for continued rehabilitation. Patient will benefit from care home facility placement for continued skilled physical therapy services in order to progress mobility level, strength, and balance in preparation for a safe discharge to home. [] [facility] [] [] SNF versus LTC based on ability to participate and progress [] TREATMENT CODE/TIME: 69810 for 20 minutes, 94949 x 18 minutes beginning at 11:15 AM. Thank you for the opportunity to participate in the care of this patient. Madhavi Victoria PT, DPT, CLT [facility] [place], [place]
--- NOTE | 2023-01-01 15:15 | RESPIRATORY ---
Addendum entered by Mirta Rivas 01/02/23 15:03: Patients DME is [facility] and uses a [employer] size Large FFM. Original Note: Patient's home PAP unit set up at bedside. [employer] Auto[employer] IPAP-20/EPAP-8, PS 4.
[2023-01-01 17:29] LABS: Urea Nitrogen Random Urine 370 mg/dL (See Note)
[2023-01-01] MEDS: Metoprolol 25 MG TAB PO ×2 (17:36→23:52)
[2023-01-01] MEDS: Normal Saline Flush 10 ML SYR IVP ×2 (18:37→23:28)
[2023-01-01] MEDS: Furosemide 40 MG/4 ML VIAL IVP (18:37)
[2023-01-01] MEDS: Insulin Glargine 300 UNITS/3 ML PEN 12 UNITS SC (20:10)
[2023-01-01] MEDS: Pravastatin 40 MG TAB PO (20:10)
--- NOTE | 2023-01-01 22:10 | PGE_ITS ---
Date of Service Date of service: 01/01/23 Time of Service: 21:30 Assessment and Plan Assessment and plan (1) Sepsis: Status: Acute Assessment and plan: Due to a polybacterial UTID with a GNR bacteremia, present on admission. UTI is associated with a griffin catheter. WBC is actually worse today. Will expand antibiotics to vancomycin and cefepime. Repeat blood cultures in am. (2) Gram-negative bacteremia: Status: Acute Assessment and plan: As above (3) Acute UTI: Status: Acute Assessment and plan: As above (4) Acute kidney injury superimposed on chronic kidney disease: Status: Acute Assessment and plan: Not improved with IVF. Suspect ATN. Trial furosemide. (5) Dehydration: Status: Ruled-out Assessment and plan: As above (6) Moderate pulmonary arterial systolic hypertension: Status: Chronic Assessment and plan: Echo does not actually have sufficient tricuspid regurg for us to estimate PA pressure. As above - I suspect he does have a cardiorenal component. Will trial diuresis and see if his kidney function improves. (7) Acute hypokalemia: Status: Acute Assessment and plan: Repleted. Recheck in am. (8) Diabetes mellitus: Status: Chronic Assessment and plan: Continue basal bolus insulin (9) Atrial fibrillation: Status: Chronic Assessment and plan: Rate controlled. Continue metoprolol, coumadin. (10) LUCAS on CPAP: Assessment and plan: Patient is on home CPAP. Device brought to the hospital. RT completed the veri fication and set up. (11) DVT prophylaxis: Status: Acute Assessment and plan: INR 2.5 ON coumadin (12) Discharge planning issues: Status: Acute Assessment and plan: DNR/DNI Continues to require hospitalization. Subjective Subjective Interval history since last seen: Mr Winkler states that he is feeling better, though he cannot tell me exactly in which way he feels better. He states he does not feel less tired. He states his breathing is about the same. He denies dizziness, CP, nausea. He was febrile to 38.0 today. Exam Narrative Exam Narrative: General: Pleasant obese male who is sitting up at the edge of the bed, A&Ox3, NAD, looks more engaged today HEENT: EOMI, MMM Cardiovascular: irregularly irregular rhythm, no m/r/g Lungs: CTAB Gastrointestinal: soft, obese, nontender Genitourinary: has a griffin - draining concentrated yellow urine Extremities: trace edema BLEs, chronic venous stasis dermatitis Objective Last Vital Signs Temp 37.8 C H 01/01/23 19:33 Pulse 80 01/01/23 19:33 Resp 24 01/01/23 19:33 BP 121/74 01/01/23 19:33 Pulse Ox 95 01/01/23 19:33 Laboratory Results - last 24 hr 01/01/23 01/01/23 01/01/23 05:35 05:35 05:35 WBC 15.52 H RBC 3.72 L Hgb 10.2 L Hct 31.7 L MCV 85 MCH 27.4 MCHC 32.2 RDW 15.4 H Plt Count 192 MPV 9.1 Immature Gran % 0.9 Neutrophils % 82.7 Lymphocytes % 8.8 Monocytes % 7.3 Eosinophils % 0.1 Basophils % 0.2 Nucleated RBC % 0.0 Absolute Neutrophils 12.84 H Absolute Lymphocytes 1.37 Absolute Monocytes 1.13 H Absolute Eosinophils 0.02 Absolute Basophils 0.03 PT 25.3 H INR 2.5 H Sodium 134 L Potassium 3.1 L Chloride 96 L Carbon Dioxide 26.2 Anion Gap 11.8 H BUN 60 H Creatinine 4.9 H* Est GFR (CKD-EPI 2020) 11.09 Glucose 169 H Calcium 9.2 Magnesium 2.2 NT-Pro-B Natriuret Pep Add-On Test Request 01/01/23 01/01/23 05:35 05:35 WBC RBC Hgb Hct MCV MCH MCHC RDW Plt Count MPV Immature Gran % Neutrophils % Lymphocytes % Monocytes % Eosinophils % Basophils % Nucleated RBC % Absolute Neutrophils Absolute Lymphocytes Absolute Monocytes Absolute Eosinophils Absolute Basophils PT INR Sodium Potassium Chloride Carbon Dioxide Anion Gap BUN Creatinine Est GFR (CKD-EPI 2020) Glucose Calcium Magnesium NT-Pro-B Natriuret Pep 7158 H Add-On Test Request DONE PAWSS Pt Consumed Any Amount of Alcohol Within the Last 30 days OR had positive SAL Upon Admission: No Time Spent with Patient Time Spent with Patient: 25-34 minutes Time was spent: preparing to see the patient(eg.review tests), obtaining and/or reviewing separately otained hiistory, ordering medications,tests, procedures, referring, communicating with other health healthcare account manager, indepentently interpreting results, counseling the patient and care coordination
[2023-01-01] MEDS: CEFEPIME 1 GM in Normal Saline 50 ML IVPB (23:28)
[2023-01-01] MEDS: VANCOMYCIN 2,000 MG in Normal Saline 500 ML 250 MG IVPB (23:43)
[2023-01-02] VITALS (9 sets, daily range): BP systolic 99–139; BP diastolic 62–83; PULSE 67–96; RESP 14–20; TEMP 36–37.4; O2SAT 95–96
[2023-01-02] MEDS: Metoprolol 25 MG TAB PO ×2 (05:27→17:29)
[2023-01-02 05:29] LABS: Prothrombin Time 26.7 sec (9.3-11.0)
[2023-01-02 05:32] LABS: Anion Gap 14.5 mmol/L (3-11); BUN 63 mg/dL (7-18); CO2 22.5 mmol/L (21.0-32.0); Calcium 9.3 mg/dL (8.5-10.1); Chloride 94 mmol/L (98-107); Estimated GFR 9.87 (mL/min/1.73m2); Glucose 183 mg/dL (74-106); Magnesium 2.4 mg/dL (1.8-2.4); Potassium 3.4 mmol/L (3.5-5.1); Sodium 131 mmol/L (136-145)
[2023-01-02 05:33] LABS: Abs Immature Grans 0.13 10^3/uL (0.0-0.06); Absolute Basophil Count 0.03 10^3/uL (0.0-0.2); Absolute Eosinophil Count 0.06 10^3/uL (0.0-0.7); Absolute Lymphocyte Count 1.88 10^3/uL (1.2-3.4); Absolute Monocyte Count 0.97 10^3/uL (0.1-0.8); Basophils % 0.2; Eosinophils % 0.4; HCT 31.4 % (40.0-50.0); HGB 9.9 g/dL (13.5-17.5); Immature Grans % 0.9; Lymphocytes % 13.5; MCHC 31.5 % (32.0-36.0); MCV 86 fL (80-95); MPV 9.5 fL (8.0-11.0); Platelet Count 257 10^3/uL (130-400); RBC 3.66 10^6/uL (4.36-5.78); RDW 15.7 % (11.8-14.1); RDW-SD 48.9 fL
[2023-01-02 05:37] LABS: CREATININE 5.4 mg/dL (0.70-1.30)
[2023-01-02 05:41] LABS: Absolute Neutrophil Count 10.84 10^3/uL (1.2-6.7); INR 2.6 (0.9-1.1)
[2023-01-02 08:03] LABS: Lab Add On Test DONE
[2023-01-02] MEDS: Finasteride 5 MG TAB PO (08:31)
[2023-01-02] MEDS: Insulin Aspart 300 UNITS/3 ML PEN SC ×4 (08:31→21:18)
[2023-01-02] MEDS: Multivitamin TAB 1 TAB PO (08:31)
[2023-01-02] MEDS: Omeprazole 20 MG CAPCR PO (08:31)
[2023-01-02] MEDS: Docusate Sodium 100 MG CAP PO (08:31)
[2023-01-02 08:48] LABS: Procalcitonin 1.9 ng/mL
--- NOTE | 2023-01-02 09:23 | PDOC.CMIN ---
- If Service Date Differs Date of service: 01/02/23 Time of Service: 09:24 Care Management Initial Assess REASON FOR HOSPITALIZATION:: Sepsis, Acute UTI, bacteremia, KENNETH PAST MEDICAL HISTORY/PAST SURGICAL HISTORY:: All Active Problems (Updated 12/31/22 @ 16:44 by Anali Miller MD). Discharge planning issues (Acute). DVT prophylaxis (Acute). Dehydration (Acute). Acute kidney injury superimposed on chronic kidney disease (Acute). Hypokalemia (Acute). Acute renal failure (Acute). Acute hypokalemia (Acute). Acute UTI (Acute). Acute dehydration (Acute). Diabetes mellitus (Chronic). Atrial fibrillation (Chronic). on coumadin. Chronic kidney disease (Chronic). 2020- borderline stage 4. Venous insufficiency (chronic) (peripheral) (Acute). Nail dystrophy (Acute). COVID-19 (Acute ~08/05/22). Thumb pain (Acute). Right heart failure (Acute). Urinary retention (Acute). 11/2021, ultrasound shows significant pretty and post void residual- minimal response to voiding. Kidney stones (Chronic). Longstanding history of multiple stones. 11/2021 ultrasound showed multiple stones in kidney, 1 stone possibly in right ureter. Anemia (Chronic). Chronic mild anemia, associated with CKD. Obstructive sleep apnea (Chronic). cpap. Acute on chronic heart failure with preserved ejection fraction (Acute). Hives (Acute). Obesity (Acute 02/11/13). Obstructive nephropathy (Acute). Moderate pulmonary arterial systolic hypertension (Chronic). Chronic anticoagulation (Chronic). Polyp of colon (Chronic). Rosacea (Chronic). Constipation (Chronic). CHF (congestive heart failure) (Chronic). Medical History . Atrial fibrillation. BPH (benign prostatic hyperplasia). Diabetes mellitus type 2 in obese. Essential hypertension, benign. GERD (gastroesophageal reflux disease). Hyperlipidemia. Nephrolithiasis. Obesity hypoventilation syndrome. LUCAS on CPAP. Palliative care patient. Surgical History . Cholecystectomy (~1985). Colonoscopy - MAC (~2002). Replacement of total knee joint. B/L. Tonsillectomy and adenoidectomy PREVIOUS FUNCTIONAL STATUS/SOCIAL/FAMILY SUPPORTS:: Sav is and lives in [facility] with his Lashawn. He worked for [employer] and is now retired. Sav drives and is independent in the community and with his ADL's at baseline.They have one daughter who lives about 6 miles from him and is supportive. CURRENT FUNCTIONAL STATUS:: Sav is lying in bed when CM met with him. He is awake, alert and easily engages in conversation. Sav shares that his enjoys cooking and his favorite passtime is watching TV in his recliner. Sav uses an electric wheelchair while at home and rarely leaves his house because it's hard to get up and down his front steps. ADVANCE DIRECTIVES:: None on file at [facility]. Has patient been provided with info about the portal/API?: Yes Did the patient sign up for the portal?: Yes (Prior to admission) CODE STATUS:: DNR/DNI INSURANCE COVERAGE / FINANCIAL ISSUES:: [employer] [facility]. CURRENT HOME/COMMUNITY SERVICES/EQUIPMENT:: [facility] RN. Electric Wheelchair with ramps inside his home. Walker. Cpap PRIMARY CARE PHYSICIAN:: Dr. Dominguez POTENTIAL DISCHARGE NEEDS:: Resmption of [facility] RN, add PT/OT (if indicated). COA-declines services PATIENT/FAMILY EDUCATION NEEDS:: Review discharge instructions, limitations, medications and plan to follow up with community providers. Discuss ask me three. TRANSPORTATION:: Via private vehicle with family. PLAN:: Anticipate, Sav will discharge home with resumption of [facility] RN (add PT/OT if indicated) when medically ready. He will transport via private vehicle with his and follow up with community providers and discharge plan of care as prescribed.
--- NOTE | 2023-01-02 10:49 | CHAPLAIN ---
Sav was resting in bed when I visiting. His is driving down from their home in [place] to visit him and hasn't arrived yet, which worries Sav. Sav was pleasant and easily engaged in a conversation. He is connected to a [employer] Scientologist. I explained my role and offered support. He said he is doing fair to middlin.'
--- NOTE | 2023-01-02 11:05 | PT.INTREAT ---
Date of service: 01/02/23 Time of Service: 10:34 PT Notes Visit Reasons: Sepsis Due to a UTI,PNA Inpatient Physical Therapy Treatment Note [facility] Date: 01/02/2023 PRECAUTIONS: Activity as tolerated SUBJECTIVE: Sav is pleasant and agreeable to participate in PT. He reports that he did not sleep well last night. He states that he would like to discharge to home, rather than a SNF-level rehab, once medically cleared. OBJECTIVE: PAIN: No c/o pain BED MOBILITY/TRANSFERS Supine-sit: CGA with HOB at 30 degrees Sit-supine: Min A of B LE with HOB flat Sit-stand: SBA Stand-sit: SBA GAIT Assistive Device: FWW Weight bearing: Full Assist: SBA Distance: 6' in both a.m. and p.m. Deviation: Gait unremarkable, mild SOB THEREX: Patient was instructed in a LE strengthening program, completed in a seated position, to include: LAQ, hip flexion and hip abduction. ASSESSMENT: Patient tolerated session well, without complaint. He was able to tolerate a slight progression in gait distance with FWW support and SBA. He demonstrates some mild SOB with activity. PLAN: Continue with global strengthening and general conditioning for improved activity tolerance. TREATMENT CODE/TIME: Session 1: 17 minutes; 04122 (10:37) Session 2: 24 minutes; [id number] x2 (13:12)
[2023-01-02] MEDS: Normal Saline Flush 10 ML SYR IVP (11:53)
--- NOTE | 2023-01-02 17:33 | W.PM.PROGNOT ---
Date of Service Date of service: 01/02/23 Time of Service: 17:33 Assessment and Plan Assessment and plan (1) Sepsis: Status: Acute Assessment and plan: Secondary to gram-negative bacteremia. Continue cefepime. Vancomycin discontinued. Professional time spent interviewing and examining patient, discussion of goals of care with hospital team (care management, nursing and consulting professionals) was 30 minutes. (2) Gram-negative bacteremia: Status: Acute Assessment and plan: As above. Echocardiogram was performed no vegetations were seen but was a technically difficult suboptimal study. LV function was grossly normal with an EF 55%. RV was not well visualized. He has trace mitral regurgitation trace aortic insufficiency. RV was not well seen. Trace tricuspid regurgitation PA pressures cannot be measured. (3) Acute UTI: Status: Acute Assessment and plan: As above (4) Acute kidney injury superimposed on chronic kidney disease: Status: Acute Assessment and plan: Worsening azotemia with a rising BUN and creatinine since initiation of Lasix. We will withhold Lasix give a small amount of IV fluids overnight particular given that he has grossly normal LV function. Cannot exclude possibility of diastolic heart failure but clinically he does not appear to be in overt heart failure (5) Moderate pulmonary arterial systolic hypertension: Status: Chronic Assessment and plan: Echo does not actually have sufficient tricuspid regurg for us to estimate PA pressure. (6) Acute hypokalemia: Status: Acute Assessment and plan: Repleted. Recheck in am. (7) Diabetes mellitus: Status: Chronic Assessment and plan: Continue basal bolus insulin (8) Atrial fibrillation: Status: Chronic Assessment and plan: Rate controlled. Continue metoprolol, coumadin. (9) LUCAS on CPAP: Assessment and plan: Patient is on home CPAP. Device brought to the hospital. RT completed the verification and set up. (10) DVT prophylaxis: Status: Acute Assessment and plan: INR 2.6 ON coumadin (11) Discharge planning issues: Status: Acute Assessment and plan: DNR/DNI Continues to require hospitalization. Subjective Subjective Interval history since last seen: Patient denies any acute complaints. States that he walked w/ walker from bed to bathroom and to doorway but not out in the ledezma. He is afebrile. Currentlyon Cefepime for GNR bacteremia.Final identification and sensitivity still pending. Repeat blood cultures were drawn today. When I evaluated him this evening he was eating salted potato chips w/ his dinner. I spoke w/ nursing regarding this given he has CHF and CKD. I have modified his heart heatlhy/diabetic diet to include low sodium. Exam Narrative Exam Narrative: Morbidly obese white male sitting up in bed eating his dinner he is alert and oriented person place time circumstance he is visiting with his . Lungs with some end expiratory wheezes diffusely no rhonchi Heart is irregularly irregular review of his rhythm strip from this morning showed he was in atrial fibrillation in the 80s to low 100s. To me it sounds like his rate seems to be controlled at present Abdomen obese soft and nontender Lower extremities with chronic venous stasis changes with bronze reddish-brown skin changes he has trace of edema in his legs Objective Last Vital Signs Temp 36.9 C 01/02/23 10:37 Pulse 70 01/02/23 11:17 Resp 18 01/02/23 10:37 BP 99/65 L 01/02/23 10:37 Pulse Ox 95 01/02/23 10:37 Laboratory Results - last 24 hr 12/31/22 01/02/23 01/02/23 16:25 04:50 04:50 WBC RBC Hgb Hct MCV MCH MCHC RDW Plt Count MPV Immature Gran % Neutrophils % Lymphocytes % Monocytes % Eosinophils % Basophils % Nucleated RBC % Absolute Neutrophils Absolute Lymphocytes Absolute Monocytes Absolute Eosinophils Absolute Basophils PT 26.7 H INR 2.6 H Sodium 131 L Potassium 3.4 L Chloride 94 L Carbon Dioxide 22.5 Anion Gap 14.5 H BUN 63 H Creatinine 5.4 H* Est GFR (CKD-EPI 2020) 9.87 Glucose 183 H Calcium 9.3 Magnesium 2.4 Procalcitonin Urine Urea Nitrogen 370 Add-On Test Request 01/02/23 01/02/23 01/02/23 04:50 04:50 Unknown WBC 13.90 H RBC 3.66 L Hgb 9.9 L Hct 31.4 L MCV 86 MCH 27.0 MCHC 31.5 L RDW 15.7 H Plt Count 257 MPV 9.5 Immature Gran % 0.9 Neutrophils % 78.0 Lymphocytes % 13.5 Monocytes % 7.0 Eosinophils % 0.4 Basophils % 0.2 Nucleated RBC % 0.0 Absolute Neutrophils 10.84 H Absolute Lymphocytes 1.88 Absolute Monocytes 0.97 H Absolute Eosinophils 0.06 Absolute Basophils 0.03 PT INR Sodium Potassium Chloride Carbon Dioxide Anion Gap BUN Creatinine Est GFR (CKD-EPI 2020) Glucose Calcium Magnesium Procalcitonin 1.9 Urine Urea Nitrogen Add-On Test Request DONE PAWSS Pt Consumed Any Amount of Alcohol Within the Last 30 days OR had positive SAL Upon Admission: No Time Spent with Patient Time Spent with Patient: 25-34 minutes Time was spent: preparing to see the patient(eg.review tests), ordering medications,tests, procedures, indepentently interpreting results and care coordination
[2023-01-02] MEDS: Melatonin 3 MG TAB 6 MG PO (21:16)
[2023-01-02] MEDS: Pravastatin 40 MG TAB PO (21:16)
[2023-01-02] MEDS: Tamsulosin 0.4 MG CAPCR PO (21:17)
[2023-01-02] MEDS: Insulin Glargine 300 UNITS/3 ML PEN 12 UNITS SC (21:17)
[2023-01-03] VITALS (11 sets, daily range): BP systolic 106–118; BP diastolic 58–72; PULSE 59–94; RESP 17–22; TEMP 36.1–37.5; O2SAT 95–98
[2023-01-03] MEDS: CEFEPIME 1 GM in Normal Saline 50 ML IVPB (00:27)
[2023-01-03] MEDS: Metoprolol 25 MG TAB PO ×4 (00:27→17:46)
[2023-01-03] MEDS: Lactated Ringers 1,000 ML 85 ML IV ×2 (01:45→13:22)
[2023-01-03 06:59] LABS: INR 3.1 (0.9-1.1); Prothrombin Time 31.5 sec (9.3-11.0)
[2023-01-03] MEDS: Insulin Aspart 300 UNITS/3 ML PEN SC ×4 (08:13→22:22)
[2023-01-03] MEDS: Docusate Sodium 100 MG CAP PO (08:14)
[2023-01-03] MEDS: Multivitamin TAB 1 TAB PO (08:15)
[2023-01-03] MEDS: Finasteride 5 MG TAB PO (08:15)
[2023-01-03] MEDS: Omeprazole 20 MG CAPCR PO (08:15)
[2023-01-03] MEDS: Normal Saline Flush 10 ML SYR IVP ×3 (08:15→18:17)
--- NOTE | 2023-01-03 08:48 | PDOC.CMPRO ---
- If Service Date Differs Date of service: 01/03/23 Time of Service: 08:49 Care Management Progress Note S/O: Sav is lying in bed wearing his C-pap machine and appears to be sleeping soundly. Per nursing, he did not sleep well again last night therefor CM did not wake him. CM observed Sav walking in his room then later in the ledezma with PT today. His goal is to discharge home with New PT/OT services in addition to the [facility] RN services he already has. CM will continue to support Sav and his discharge planning considerations. A: 82 year old male admitted to [facility] on 12/31/22 for Sepsis, Acute UTI, bacteremia, KENNETH P: Anticipate, Sav will discharge home with resumption of [facility] RN (add PT/OT if indicated) when medically ready. He will transport via private vehicle with his and follow up with community providers and discharge plan of care as prescribed.
--- NOTE | 2023-01-03 12:06 | PT.INTREAT ---
Date of service: 01/03/23 Time of Service: 09:35 PT Notes Visit Reasons: Sepsis Due to a UTI,PNA Inpatient Physical Therapy Treatment Note [facility] Date: 01/03/2023 PRECAUTIONS: Activity as tolerated SUBJECTIVE: Sav is pleasant and agreeable to participate in PT. He reports that he did not sleep well again last night. OBJECTIVE: PAIN: No c/o pain BED MOBILITY/TRANSFERS Sit-stand: SBA Stand-sit: SBA GAIT Assistive Device: FWW Weight bearing: Full Assist: SBA Distance: 6 steps F/B + 12' in a.m.; 60' in p.m. Deviation: Gait unremarkable, mild SOB, lowered height of walker per patient preference THEREX: Patient completes LAQ x10 ASSESSMENT: Patient tolerated session well, without complaint. He was able to tolerate a slight progression in gait distance with FWW support and SBA. He demonstrates some mild SOB with activity. PLAN: Continue with global strengthening and general conditioning for improved activity tolerance. TREATMENT CODE/TIME: Session 1: 25 minutes; [id number] x2 (09:35) Session 2: 16 minutes; [id number] (12:55)
[2023-01-03 13:45] LABS: Anion Gap 12.3 mmol/L (3-11); BUN 68 mg/dL (7-18); CO2 24.7 mmol/L (21.0-32.0); Calcium 9.3 mg/dL (8.5-10.1); Chloride 95 mmol/L (98-107); Estimated GFR 10.09 (mL/min/1.73m2); Glucose 254 mg/dL (74-106); Sodium 132 mmol/L (136-145)
[2023-01-03 13:49] LABS: CREATININE 5.3 mg/dL (0.70-1.30)
--- NOTE | 2023-01-03 17:20 | PGE_ITS ---
Date of Service Date of service: 01/03/23 Time of Service: 17:20 Assessment and Plan Assessment and plan (1) Sepsis: Status: Acute Assessment and plan: Secondary to E. coli bacteremia. Initial culture was positive on 12/31/2022 but repeat blood cultures from 01/02/2023 are no growth to date.. E. coli is pansensitive therefore cefepime and vancomycin has been discontinued and patient is now on ceftriaxone. Anticipate discharge home in the next 24 to 48 hours, but will require total treatment of 10 days of antibiotics. Today is day 4 of parenteral antibiotics. Professional time spent interviewing and examining patient, discussion of goals of care with hospital team (care management, nursing and consulting professionals) was 30 minutes. (2) Gram-negative bacteremia: Status: Acute Assessment and plan: As above. Echocardiogram was performed no vegetations were seen but was a technically difficult suboptimal study. LV function was grossly normal with an EF 55%. RV was not well visualized. He has trace mitral regurgitation trace aortic insufficiency. RV was not well seen. Trace tricuspid regurgitation PA pressures cannot be measured. (3) Acute UTI: Status: Acute Assessment and plan: As above. (4) Acute kidney injury superimposed on chronic kidney disease: Status: Acute Assessment and plan: Renal function has remained unchanged in spite of IV fluids. BUN is 68 creatinine 5.3 which is essentially unchanged from yesterday. He presented with a BUN of 54 creatinine 4.8. His baseline from last fall was 38 and 3.0. I suspect this can have a new baseline of his chronic renal failure. Renal ultrasound was performed on admission he had a 1.5 cm nonobstructing stone of his left mid kidney with no evidence for hydronephrosis. Knox catheter has been changed and is now functional. (5) Acute hypokalemia: Status: Acute Assessment and plan: Repeat potassium is down to 3.0 this morning.Patient's been given oral r eplacement. Recheck levels. (6) Diabetes mellitus: Status: Chronic Assessment and plan: Continue basal bolus insulin (7) Atrial fibrillation: Status: Chronic Assessment and plan: Rate controlled. Per review of monitor with the ICU nurses heart rates been in the 60s to 70s Continue metoprolol, coumadin. (8) LUCAS on CPAP: Assessment and plan: Patient is on home CPAP. Device brought to the hospital. RT completed the verification and set up. (9) DVT prophylaxis: Status: Acute Assessment and plan: INR 3.1. Warfarin dose will be reduced to 1 mg for tonight only then resume his previous dose of 2.5 mg nightly. Continue to monitor ON coumadin (10) Discharge planning issues: Status: Acute Assessment and plan: DNR/DNI Continues to require hospitalization. I expect discharge in next 24 to 48 hours with continued oral antibiotics. Subjective Subjective Patient reports: no new complaints, feels better and tolerating a regular diet Exam Narrative Exam Narrative: Sav is sitting up at the bedside eating his dinner no acute distress. Lungs are clear to auscultation Heart is irregularly irregular at a controlled rate no thrill or heave Abdomen obese soft and nontender Lower extremities no edema Knox catheter draining clear yellow urine Objective Last Vital Signs Temp 37.5 C 01/03/23 15:22 Pulse 66 01/03/23 15:22 Resp 18 01/03/23 15:22 BP 106/69 01/03/23 15:22 Pulse Ox 98 01/03/23 15:22 Laboratory Results - last 24 hr 01/03/23 01/03/23 06:38 13:30 PT 31.5 H INR 3.1 H Sodium 132 L Potassium 3.0 L Chloride 95 L Carbon Dioxide 24.7 Anion Gap 12.3 H BUN 68 H Creatinine 5.3 H* Est GFR (CKD-EPI 2020) 10.09 Glucose 254 H Calcium 9.3 PAWSS Pt Consumed Any Amount of Alcohol Within the Last 30 days OR had positive SAL Upon Admission: No Time Spent with Patient Time Spent with Patient: 25-34 minutes Time was spent: preparing to see the patient(eg.review tests), ordering medications,tests, procedures, indepentently interpreting results, counseling the patient and care coordination
[2023-01-03] MEDS: Potassium Chloride 10 MEQ CAPCR 40 MEQ PO (17:46)
[2023-01-03] MEDS: cefTRIAXone 2 GM/50 ML BAG IVPB (18:17)
[2023-01-03] MEDS: Warfarin 1 MG TAB PO (19:36)
[2023-01-03] MEDS: Tamsulosin 0.4 MG CAPCR PO (19:36)
[2023-01-03] MEDS: Pravastatin 40 MG TAB PO (19:36)
[2023-01-03] MEDS: Melatonin 3 MG TAB 6 MG PO (19:37)
[2023-01-03] MEDS: Insulin Glargine 300 UNITS/3 ML PEN 12 UNITS SC (22:22)
[2023-01-03 22:39] LABS: Potassium 3.2 mmol/L (3.5-5.1)
[2023-01-04] VITALS (9 sets, daily range): BP systolic 100–138; BP diastolic 63–89; PULSE 50–78; RESP 18–22; TEMP 36.6–37.2; O2SAT 96–100
[2023-01-04] MEDS: Metoprolol 25 MG TAB PO ×4 (06:21→19:58)
[2023-01-04 06:42] LABS: Abs Immature Grans 0.07 10^3/uL (0.0-0.06); Absolute Basophil Count 0.02 10^3/uL (0.0-0.2); Absolute Eosinophil Count 0.09 10^3/uL (0.0-0.7); Absolute Lymphocyte Count 0.83 10^3/uL (1.2-3.4); Absolute Monocyte Count 0.57 10^3/uL (0.1-0.8); Absolute Neutrophil Count 5.23 10^3/uL (1.2-6.7); Basophils % 0.3; Eosinophils % 1.3; HGB 9.7 g/dL (13.5-17.5); Lymphocytes % 12.2; MCH 27.5 pg (27.0-33.0); MCHC 32.3 % (32.0-36.0); MCV 85 fL (80-95); MPV 8.9 fL (8.0-11.0); Monocytes % 8.4; Neutrophils % 76.8; Platelet Count 259 10^3/uL (130-400); RBC 3.53 10^6/uL (4.36-5.78); RDW 15.6 % (11.8-14.1); RDW-SD 47.6 fL; WBC 6.81 10^3/uL (4.4-10.8)
[2023-01-04 06:56] LABS: INR 3.6 (0.9-1.1); Prothrombin Time 36.3 sec (9.3-11.0)
[2023-01-04 07:05] LABS: Anion Gap 14.3 mmol/L (3-11); BUN 70 mg/dL (7-18); C-Reactive Protein 14.94 mg/dL (0.0-0.3); CO2 19.7 mmol/L (21.0-32.0); Calcium 9.1 mg/dL (8.5-10.1); Chloride 96 mmol/L (98-107); Estimated GFR 10.57 (mL/min/1.73m2); Glucose 324 mg/dL (74-106); Potassium 3.1 mmol/L (3.5-5.1); Sodium 130 mmol/L (136-145)
[2023-01-04 07:10] LABS: CREATININE 5.1 mg/dL (0.70-1.30)
[2023-01-04 07:18] LABS: Procalcitonin 0.7 ng/mL
[2023-01-04] MEDS: Omeprazole 20 MG CAPCR PO (07:54)
[2023-01-04] MEDS: Finasteride 5 MG TAB PO (07:54)
[2023-01-04] MEDS: Normal Saline Flush 10 ML SYR IVP ×2 (07:54→16:12)
[2023-01-04] MEDS: Docusate Sodium 100 MG CAP PO (07:55)
[2023-01-04] MEDS: Multivitamin TAB 1 TAB PO (07:55)
[2023-01-04] MEDS: Insulin Aspart 300 UNITS/3 ML PEN SC ×4 (08:30→20:04)
--- NOTE | 2023-01-04 08:59 | CMPROGNOTE_ITS ---
- If Service Date Differs Date of service: 01/04/23 Time of Service: 08:59 Care Management Progress Note S/O: Sav is sitting up in bed visiting with his when CM met with him. He is working with PT and still refuses SNF for STR. He wants to discharge home with resumption of [facility] RN (Add PT/OT/[employer]) when medically able. Per pt, he gets by at home and does a lot of sitting in his recliner. He doesn't get out much and uses his motorized chair and has ramps within his home. His is a gr eat cook and he doesn't need MOW at this time. CM will continue to support pt and his discharge planning considerations. A: 82 year old male admitted to [facility] on 12/31/22 for Sepsis, Acute UTI, lg teremia, KENNETH P: Anticipate, Sav will discharge home with resumption of [facility] RN (add PT/OT/[employer]) when medically ready. He will transport via private vehicle with his when ready and may need a lift assist to help him up his front steps. Sav will follow up with community providers and discharge plan of care as prescribed.
--- NOTE | 2023-01-04 10:55 | CHAPLAIN ---
Sav was sitting at the edge of the bed when I visited, and his was with him. He is hoping to be discharged today. Sav remembered our visit from a couple of days ago. He was pleasant and easily engaged in a conversation.
--- NOTE | 2023-01-04 14:26 | PTTR_ITS ---
PT Notes Visit Reasons: Sepsis Due to a UTI,PNA Date: 01/04/2023 PRECAUTIONS: Activity as tolerated SUBJECTIVE: Pt in recliner when approached for therapy this morning, pt refused participating initially, reports that is coming and would like to be scheduled later to allow for visit with , pt re- approached after an hour pt reporting he is not ready and would like to be reapproached later, re- approached an hour later pt reports that he would like to stay on the EOB for awhile since pt just got situated and would like to be repparoached later, re- approached a fourth time but this time pt is sleeping, requested that pt not be disturbed due to pt not sleeping well at night. Pt sitting on the EOB when approached for therapy in the afternoon, pleasant and agreeable to participate in PT.? OBJECTIVE: ? PAIN: No c/o pain ? BED MOBILITY/TRANSFERS? Sit-stand: SBA ? Stand-sit: SBA? GAIT? Assistive Device: FWW ? Weight bearing: Full Assist: SBA ? Distance: 60' with CGA ? Deviation: slow meredith, low step height and step lenght, ANDREW with activity. ASSESSMENT:? Patient tolerated session well, without complaint of pain.? pt stayed in recliner post session.? PLAN: Continue with global strengthening and general conditioning for improved activity tolerance. TREATMENT CODE/TIME: Session 1: approached multiple time with pt rescheduling at every attempt. ? Session 2: 30 minutes; [id number] (1:20-1:50pm)
--- NOTE | 2023-01-04 15:42 | PGE_ITS ---
Date of Service Date of service: 01/04/23 Time of Service: 15:42 Assessment and Plan Assessment and plan (1) Sepsis: Status: Acute Assessment and plan: Secondary to E. coli bacteremia. Initial culture was positive on 12/31/2022 but repeat blood cultures from 01/02/2023 are no growth to date.. E. coli is pansensitive therefore cefepime and vancomycin has been discontinued and patient is now on ceftriaxone. Anticipate discharge home in the next 24 to 48 hours, but will require total treatment of 10 days of antibiotics. Today is day 5 of parenteral antibiotics. Professional time spent interviewing and examining patient, discussion of goals of care with hospital team (care management, nursing and consulting professionals) was 30 minutes. (2) Gram-negative bacteremia: Status: Acute Assessment and plan: As above. Echocardiogram was performed no vegetations were seen but was a technically difficult suboptimal study. LV function was grossly normal with an EF 55%. RV was not well visualized. He has trace mitral regurgitation trace aortic insufficiency. RV was not well seen. Trace tricuspid regurgitation PA pressures cannot be measured. (3) Acute UTI: Status: Acute Assessment and plan: As above. (4) Acute kidney injury superimposed on chronic kidney disease: Status: Acute Assessment and plan: Renal function has remained unchanged in spite of IV fluids. BUN is 70 creatinine 5.1 which is essentially unchanged from yesterday. He presented with a BUN of 54 creatinine 4.8. His baseline from last fall was 38 and 3.0. I suspect this can have a new baseline of his chronic renal failure. Renal ultrasound was performed on admission he had a 1.5 cm nonobstructing stone of his left mid kidney with no evidence for hydronephrosis. Knox catheter has been changed and is now functional. (5) Acute hypokalemia: Status: Acute Assessment and plan: Repeat potassium is down to 3.1 this morning.Patient's been given oral r eplacement. Recheck levels. (6) Diabetes mellitus: Status: Chronic Assessment and plan: Continue basal bolus insulin (7) Atrial fibrillation: Status: Chronic Assessment and plan: Rate controlled. Per review of monitor with the ICU nurses heart rates been in the 60s to 70s Continue metoprolol, coumadin. (8) LUCAS on CPAP: Assessment and plan: Patient is on home CPAP. Device brought to the hospital. RT completed the verification and set up. (9) DVT prophylaxis: Status: Acute Assessment and plan: INR 3.6. warfarin now on hold (10) Discharge planning issues: Status: Acute Assessment and plan: DNR/DNI Continues to require hospitalization. I expect discharge in next 24 to 48 hours with continued oral antibiotics. Subjective Subjective Interval history since last seen: Patient denies any nausea or emesis. Eating well. No dyspnea or CP. He had questions about his insulin. Apparently he was recently started on insulin, Lantus 10 units and recently uptitrated to 12 units. He is not on any Novolog at home. I explained to his that we will send him home on both as his glucose has been very elevated in the 200's to 300's. At home he says that despite his insulin his glucose ran in the low 300's. Exam Narrative Exam Narrative: Mr. Winkler is sitting up at the bedside he is alert and oriented person place time circumstance no acute distress. Lungs are clear to auscultation Heart is irregularly irregular at a controlled rate Abdomen is obese soft and nontender Legs with chronic stasis bronze/reddish skin changes. Objective Last Vital Signs Temp 37.2 C 01/04/23 15:42 Pulse 77 01/04/23 15:42 Resp 22 01/04/23 15:42 BP 138/89 01/04/23 15:42 Pulse Ox 97 01/04/23 15:42 Laboratory Results - last 24 hr 01/03/23 01/04/23 01/04/23 22:16 06:28 06:28 WBC RBC Hgb Hct MCV MCH MCHC RDW Plt Count MPV Immature Gran % Neutrophils % Lymphocytes % Monocytes % Eosinophils % Basophils % Nucleated RBC % Absolute Neutrophils Absolute Lymphocytes Absolute Monocytes Absolute Eosinophils Absolute Basophils PT 36.3 H INR 3.6 H Sodium 130 L Potassium 3.2 L 3.1 L Chloride 96 L Carbon Dioxide 19.7 L Anion Gap 14.3 H BUN 70 H Creatinine 5.1 H* Est GFR (CKD-EPI 2020) 10.57 Glucose 324 H Calcium 9.1 C-Reactive Protein 14.94 H Procalcitonin 01/04/23 01/04/23 06:28 06:28 WBC 6.81 RBC 3.53 L Hgb 9.7 L Hct 30.0 L MCV 85 MCH 27.5 MCHC 32.3 RDW 15.6 H Plt Count 259 MPV 8.9 Immature Gran % 1.0 Neutrophils % 76.8 Lymphocytes % 12.2 Monocytes % 8.4 Eosinophils % 1.3 Basophils % 0.3 Nucleated RBC % 0.0 Absolute Neutrophils 5.23 Absolute Lymphocytes 0.83 L Absolute Monocytes 0.57 Absolute Eosinophils 0.09 Absolute Basophils 0.02 PT INR Sodium Potassium Chloride Carbon Dioxide Anion Gap BUN Creatinine Est GFR (CKD-EPI 2020) Glucose Calcium C-Reactive Protein Procalcitonin 0.7 PAWSS Pt Consumed Any Amount of Alcohol Within the Last 30 days OR had positive SAL Upon Admission: No Time Spent with Patient Time Spent with Patient: 25-34 minutes Time was spent: preparing to see the patient(eg.review tests), ordering medications,tests, procedures, indepentently interpreting results, counseling the patient and care coordination
[2023-01-04] MEDS: Potassium Chloride 10 MEQ CAPCR 40 MEQ PO (15:45)
[2023-01-04] MEDS: POTASSIUM CHLORIDE 10 MEQ/100 ML BAG 100 MEQ IVPB ×2 (16:07→17:53)
[2023-01-04] MEDS: cefTRIAXone 2 GM/50 ML BAG IVPB (18:21)
[2023-01-04] MEDS: Potassium Chloride 20 MEQ TABCR PO (19:58)
[2023-01-04] MEDS: Melatonin 3 MG TAB 6 MG PO (19:59)
[2023-01-04] MEDS: Tamsulosin 0.4 MG CAPCR PO (19:59)
[2023-01-04] MEDS: Pravastatin 40 MG TAB PO (19:59)
[2023-01-04] MEDS: Insulin Glargine 300 UNITS/3 ML PEN 18 UNITS SC (20:03)
[2023-01-05] VITALS (10 sets, daily range): BP systolic 105–122; BP diastolic 67–76; PULSE 56–75; RESP 18–22; TEMP 36.4–36.9; O2SAT 96–98
[2023-01-05] MEDS: Metoprolol 25 MG TAB PO ×2 (01:14→06:35)
[2023-01-05 06:27] LABS: INR 3.8 (0.9-1.1)
[2023-01-05 06:30] LABS: Anion Gap 11.6 mmol/L (3-11); BUN 67 mg/dL (7-18); CO2 22.4 mmol/L (21.0-32.0); Calcium 9.1 mg/dL (8.5-10.1); Chloride 99 mmol/L (98-107); Estimated GFR 11.09 (mL/min/1.73m2); Glucose 202 mg/dL (74-106); Magnesium 2.1 mg/dL (1.8-2.4); Potassium 3.5 mmol/L (3.5-5.1); Sodium 133 mmol/L (136-145)
[2023-01-05] MEDS: Omeprazole 20 MG CAPCR PO (06:34)
[2023-01-05 06:35] LABS: CREATININE 4.9 mg/dL (0.70-1.30)
[2023-01-05] MEDS: Insulin Aspart 300 UNITS/3 ML PEN SC ×7 (07:53→19:58)
[2023-01-05] MEDS: Normal Saline Flush 10 ML SYR IVP ×2 (07:54→18:09)
[2023-01-05] MEDS: Finasteride 5 MG TAB PO (07:54)
[2023-01-05] MEDS: Docusate Sodium 100 MG CAP PO (07:54)
[2023-01-05] MEDS: Multivitamin TAB 1 TAB PO (07:54)
[2023-01-05] MEDS: Potassium Chloride 20 MEQ TABCR PO (07:54)
[2023-01-05] MEDS: Empaglifozin 10 MG TAB PO (08:54)
--- NOTE | 2023-01-05 10:19 | PT.INTREAT ---
PT Notes Visit Reasons: Sepsis Due to a UTI,PNA Inpatient Physical Therapy Treatment Note [facility] Date: 01/05/23 OBJECTIVE: Sit-stand: CGA Stand-sit: SBA GAIT Assistive Device: FWW Weight bearing: Full Assist: SBA Distance: Approx 75 ft THEREX: Too tired ASSESSMENT: Pt tolerated today's session fairly well. Pt was fatigued fairly quickly. PLAN: Cont as per PT POC. TREATMENT CODE/TIME: 10-10:15 (15) TA
[2023-01-05] MEDS: Metoprolol CR 100 MG TABCR PO (11:10)
--- NOTE | 2023-01-05 12:37 | PGE_ITS ---
Date of Service Date of service: 01/05/23 Time of Service: 12:37 Assessment and Plan Assessment and plan (1) Sepsis: Status: Resolved Assessment and plan: Secondary to E. coli bacteremia. Initial culture was positive on 12/31/2022 but repeat blood cultures from 01/02/2023 are no growth to date.. E. coli is pansensitive therefore cefepime and vancomycin has been discontinued and patient is now on ceftriaxone. Today is day 6 of his parenteral antibiotics. Tomorrow morning we will complete 7 days of antibiotics at which point I think he can go home without any further antibiotics. Recent studies indicate that there is no difference in outcome between 7 days versus 10 days of antibiotics for urosepsis. Since the organism was E. coli and was pansensitive he should not need prolonged antibiotic treatment beyond 7 day Professional time spent interviewing and examining patient, discussion of goals of care with hospital team (care management, nursing and consulting pr ofessionals) was 20 minutes. (2) Gram-negative bacteremia: Status: Acute Assessment and plan: As above. Echocardiogram was performed no vegetations were seen but was a technically difficult suboptimal study. LV function was grossly normal with an EF 55%. RV was not well visualized. He has trace mitral regurgitation trace aortic insufficiency. RV was not well seen. Trace tricuspid regurgitation PA pressures cannot be measured. (3) Acute UTI: Status: Acute Assessment and plan: As above. (4) Acute kidney injury superimposed on chronic kidney disease: Status: Acute Assessment and plan: Renal function has remained unchanged in spite of IV fluids. BUN is 70 cr eatinine 5.1 which is essentially unchanged from yesterday. He presented with a BUN of 54 creatinine 4.8. His baseline from last fall was 38 and 3.0. I suspect this can have a new baseline of his chronic renal failure. Renal ultrasound was performed on admission he had a 1.5 cm nonobstructing stone of his left mid kidney with no evidence for hydronephrosis. Knox catheter has been changed and is now functional. I talked with him and his about considerations for suprapubic catheter and recommend they follow-up with his urologist at this this further. (5) Acute hypokalemia: Status: Acute Assessment and plan: Potassium is now up to 3.5. He is now on daily potassium supplement. I will recheck his lab in the morning. (6) Diabetes mellitus: Status: Chronic Assessment and plan: Continue basal bolus insulin. I explained to the patient and his that because of his no function that we be disc doing his glipizide. He will go home on Jardiance and insulin. (7) Atrial fibrillation: Status: Chronic Assessment and plan: Rate controlled. Per review of monitor with the ICU nurses heart rates been in the 60s to 70s Continue metoprolol, coumadin. Coumadin on hold because of elevated INR of 3.8. (8) LUCAS on CPAP: Assessment and plan: Patient is on home CPAP. Device brought to the hospital. RT completed the verification and set up. (9) DVT prophylaxis: Status: Acute Assessment and plan: INR 3.8. warfarin now on hold (10) Discharge planning issues: Status: Acute Assessment and plan: DNR/DNI Continues to require hospitalization. Discharge home in the morning after his Rocephin dose tomorrow morning. Subjective Subjective Interval history since last seen: She denies any acute complaints no chest pain no dyspnea. He is eating well. He remains afebrile. Unfortunately his INR went up overnight despite holding his warfarin. INR is up to 3.8. I switch his short acting Lopressor to long- acting Toprol-XL this morning. He is going stay overnight complete his antibiotic treatment tonight and go home in the morning. I reviewed the results of his echocardiogram with him and his . While he has no evidence of systolic heart failure the echocardiogram did not give diastolic indices to determine whether or not he has underlying diastolic heart failure. RV was not well visualized and therefore we could not comment about RV dysfunction or pulmonary hypertension. According to his if he did ask torsemide to 20 mg tablets twice a day and she also gives him metolazone 5 mg 1-2 times a week depending on whether he gains more than 3 pounds per day or 7 pounds in a week. Currently have his diuretics on hold because of his azotemia. However by withholding his diuretic it is not made any significant impact on his renal indices as his BUN/creatinine remain elevated at 67 and 4.9. Exam Narrative Exam Narrative: Mr. Winkler sitting up in his chair eating his lunch she is alert and oriented person place time circumstance no acute distress. Neck is obese difficult to discern JVD. Lungs are clear to auscultation Heart is irregular irregular and controlled rate Abdomen is obese soft and nontender Legs with chronic venous stasis bronzing changes of the skin with trace to 1+ pitting edema over the ankles feet and lower tibia. Objective Last Vital Signs Temp 36.4 C L 01/05/23 08:35 Pulse 68 01/05/23 08:35 Resp 22 01/05/23 08:35 BP 117/76 01/05/23 08:35 Pulse Ox 98 01/05/23 08:35 Laboratory Results - last 24 hr 01/05/23 01/05/23 01/05/23 06:07 06:07 06:09 Reticulocyte % (Auto) 1.0 PT 38.0 H INR 3.8 H Sodium 133 L Potassium 3.5 Chloride 99 Carbon Dioxide 22.4 Anion Gap 11.6 H BUN 67 H Creatinine 4.9 H* Est GFR (CKD-EPI 2020) 11.09 Glucose 202 H Calcium 9.1 Magnesium 2.1 PAWSS Pt Consumed Any Amount of Alcohol Within the Last 30 days OR had positive SAL Upon Admission: No Time Spent with Patient Time Spent with Patient: <25 minutes Time was spent: preparing to see the patient(eg.review tests), ordering medications,tests, procedures, indepentently interpreting results, counseling the patient and care coordination
[2023-01-05] MEDS: cefTRIAXone 2 GM/50 ML BAG IVPB (18:08)
[2023-01-05] MEDS: Normal Saline 500 ML 30 ML IV (18:30)
[2023-01-05] MEDS: Tamsulosin 0.4 MG CAPCR PO (19:55)
[2023-01-05] MEDS: Pravastatin 40 MG TAB PO (19:55)
[2023-01-05] MEDS: Melatonin 3 MG TAB 6 MG PO (19:55)
[2023-01-05] MEDS: Insulin Glargine 300 UNITS/3 ML PEN 22 UNITS SC (19:57)
[2023-01-06 03:00] VITALS: BP 130/86; PULSE 89; RESP 18; TEMP 36.7; O2SAT 100
[2023-01-06 06:39] LABS: Abs Immature Grans 0.12 10^3/uL (0.0-0.06); Absolute Basophil Count 0.03 10^3/uL (0.0-0.2); Absolute Eosinophil Count 0.14 10^3/uL (0.0-0.7); Absolute Lymphocyte Count 1.23 10^3/uL (1.2-3.4); Absolute Neutrophil Count 6.56 10^3/uL (1.2-6.7); Basophils % 0.3; Eosinophils % 1.6; HCT 29.3 % (40.0-50.0); HGB 9.1 g/dL (13.5-17.5); Immature Grans % 1.4; Lymphocytes % 14.2; MCHC 31.1 % (32.0-36.0); MCV 87 fL (80-95); Monocytes % 6.9; Neutrophils % 75.6; Platelet Count 284 10^3/uL (130-400); RBC 3.37 10^6/uL (4.36-5.78); RDW 15.9 % (11.8-14.1); RDW-SD 50.6 fL; WBC 8.68 10^3/uL (4.4-10.8)
[2023-01-06 06:56] LABS: Anion Gap 12.3 mmol/L (3-11); BUN 69 mg/dL (7-18); CO2 21.7 mmol/L (21.0-32.0); Calcium 9.4 mg/dL (8.5-10.1); Chloride 102 mmol/L (98-107); Estimated GFR 11.37 (mL/min/1.73m2); Glucose 230 mg/dL (74-106); Potassium 4.1 mmol/L (3.5-5.1); Sodium 136 mmol/L (136-145)
[2023-01-06 07:01] LABS: C-Reactive Protein 10.23 mg/dL (0.0-0.3); LDH 202 U/L (85-227)
[2023-01-06 07:02] LABS: INR 3.2 (0.9-1.1); Prothrombin Time 32.1 sec (9.3-11.0)
[2023-01-06 07:05] LABS: CREATININE 4.8 mg/dL (0.70-1.30)
[2023-01-06 07:06] LABS: Iron 30 ug/dL (65-175); Total Iron Binding Capacity 213 ug/dL (250-450); Transferrin Sat 14 % (20-55)
[2023-01-06 07:22] LABS: Procalcitonin 0.3 ng/mL
[2023-01-06 07:27] VITALS: BP 129/75; PULSE 58; RESP 20; TEMP 36.7; O2SAT 100
[2023-01-06 07:49] LABS: Ferritin 134 ng/mL (26-388); Vitamin B12 902 pg/mL (193-986)
[2023-01-06 07:50] LABS: Folate > 20.0 ng/mL (8.6-20.0)
[2023-01-06] MEDS: Normal Saline Flush 10 ML SYR IVP (09:32)
[2023-01-06] MEDS: Docusate Sodium 100 MG CAP PO (09:33)
[2023-01-06] MEDS: Metoprolol CR 100 MG TABCR PO (09:33)
[2023-01-06] MEDS: Potassium Chloride 20 MEQ TABCR PO (09:33)
[2023-01-06] MEDS: Multivitamin TAB 1 TAB PO (09:33)
[2023-01-06] MEDS: Omeprazole 20 MG CAPCR PO (09:33)
[2023-01-06] MEDS: Finasteride 5 MG TAB PO (09:33)
[2023-01-06] MEDS: Torsemide 20 MG TAB 40 MG PO (09:34)
[2023-01-06] MEDS: Empaglifozin 10 MG TAB PO (09:34)
[2023-01-06] MEDS: Insulin Aspart 300 UNITS/3 ML PEN SC ×4 (09:38→12:06)
--- NOTE | 2023-01-06 10:00 | PT.INNT ---
PT Notes Visit Reasons: Sepsis Due to a UTI,PNA Pt refused x 2 today and is going home this afternoon.
[2023-01-06 10:27] VITALS: PULSE 90
[2023-01-06 10:29] VITALS: PULSE 67
[2023-01-06 11:06] VITALS: BP 117/73; PULSE 79; RESP 22; TEMP 36.5; O2SAT 99
[2023-01-06] MEDS: cefTRIAXone 2 GM/50 ML BAG IVPB (12:04)
--- NOTE | 2023-01-06 14:07 | DSE_ITS ---
Date of service: 01/06/23 Time of Service: 14:07 DS: Diagnosis Discharge Diagnosis (1) Sepsis: Status: Resolved Asessment and Plan: E. coli bacteremia secondary to infected indwelling Griffin catheter. Griffin catheter was removed and exchanged in the emergency department. Patient be sent home with an indwelling Griffin catheter with follow-up with Dr. Santos in the next month. E. coli bacteremia was cleared as of 01/02/2023 blood culture showed no growth. Patient was afebrile with normal white blood cell count on discharge. Patient completed 7-day course of parenteral antibiotics including initially cefepime and vancomycin and then subsequently treated with Rocephin 2 g daily. He had a total 7-day course and was not discharged home on any oral antibiotics. (2) Gram-negative bacteremia: Status: Acute Asessment and Plan: As above (3) Acute UTI: Status: Acute Asessment and Plan: As above (4) Acute kidney injury superimposed on chronic kidney disease: Status: Suspected Asessment and Plan: Patient was suspected of having acute on chronic renal failure. This is based on the fact that he presented with elevated BUN and creatinine 54 and 4.8 however despite IV fluids there is no change in his BUN and creatinine and even with resumption of his diuretics that he continue to show no change in his BUN/creatinine. I suspect that he is now at a new baseline level. At discharge his BUN was 69 creatinine was 4.8. Torsemide dose was reduced to 40 mg daily from his previous dose of 40 mg twice daily. (5) Acute hypokalemia: Status: Resolved Asessment and Plan: Resolved with parenteral and oral treatment. Patient will be discharged home on continued potassium supplementation. Repeat BMP in a week is recommended. (6) Diabetes mellitus: Status: Chronic Asessment and Plan: No hypoglycemic spells. Patient was taken off of his glipizide. His Empagliflozin. Lantus Was Adjusted Upwards to 22 Units at Night and He Was Started on NovoLog Sliding Scale As Well As Mealtime Coverage at 5 Units per Meal (7) Atrial fibrillation: Status: Chronic Asessment and Plan: Patient remained in atrial fibrillation throughout his hospital course at a well-controlled rate in the 60s to 70s. Unfortunately warfarin had to be held because of elevated INR's. Initial INR on admission was 2.3 but peaked at 3.6. Warfarin is being held until he can have a follow-up prothrombin time on the day after discharge. (8) LUCAS on CPAP: (9) Discharge planning issues: Status: Resolved Asessment and Plan: Patient will be discharged home with home health services including physical therapy, Occupational Therapy, home nursing and [employer]. Patient will follow-up with Dr. Gordo Dominguez next week the patient should call Dr. Santos's office for follow-up in the next month. Discharge Plan Disposition Patient Disposition: Home W/Home Health Services Condition: Improving Discharge Details Reason For Visit: Sepsis Due to a UTI,PNA Admit Date/Time: 12/31/22 12:06 Admit Provider: Anali Miller Attending Provider: Anali Miller Primary Care Provider: Gordo Dominguez Hospital Course Hospital Course: Mr Winkler is an 82 year old male with PMHx of R heart failure as well as Afib on coumadin, CKD w/ a baseline Cr of 3.0, IDDM2, chronic indwelling griffin catheter for a h/o urinary retention, whom the hospitalist service was asked to admit for a UTI, encephalopathy, and KENNETH on CKD. The patient states that he is here because of low blood pressure and weakness. He denies having fevers, a cough, falls, or any other symptoms including chest pain or shortness of breath at home, and states that the symptoms have lasted for two days. Here the workup was consistent with a UTI and dehydration. He was initiated on IV ceftriaxone and IVF, and his griffin catheter was changed in the ER. Work-up on admission revealed him to be in acute on chronic renal failure with a BUN of 54 creatinine 4.8 and a low potassium of 2.5 with normal magnesium 2.2. CBC demonstrated leukocytosis of 12,720 with a mildly elevated procalcitonin level of 0.5 which later peaked at 1.9 before settling down to 0.3. Troponin level was elevated on admission to 80 9 repeat level was 86 CK level was normal at 55 transaminases were minimally elevated with an AST of 44 alkaline phosphatase 150. As his blood pressures were soft his amlodipine was discontinued he was initially given gentle IV fluid hydration which later had to be discontinued and he was resumed on diuretics. Blood and urine cultures were obtained as Griffin catheter was exchanged. Blood cultures from 12/31/2022 showed 1 set positive for E. coli which eventually was found to be pansensitive. The other blood culture was no growth on 12/31/2022 follow-up blood cultures and cleared on 01/02/2023. Urine culture had mixed gram-negative sapphire and mixed gram-positive sapphire with no predominant species. Patient was initially treated with vancomycin and cefepime and then later downgraded to ceftriaxone 2 g daily. Patient was afebrile on admission but had a low-grade temp on 01/01/2023 of 37.8 but remained afebrile thereafter. Serial CBC and BMPs were monitored during his hospital stay and his white blood cell count peaked at 15,500 on 01/01/2023 before normalizing on 01/04/2023. On the day of discharge his white cell count was normal at 8680. Patient has stable chronic anemia hemoglobin of around 9 g hematocrit 29%. Serial BMPs were monitored his potassium he had a jeannine of 2.5 on admission with supplementation over the next couple days his potassium remained in the 3.1-3.4 range but at the time of discharge was normal at 4.1. His BUN and creatinine remained essentially unchanged at the time of discharge was 69 and 4.8 respectively. Anemia work-up was pursued including serum LDH which was normal at 202 ferritin level was normal at 134 transferrin saturation was low at 14% TIBC was low at 213 mcg/dL and serum iron was low at 38 mcg/dL. These findings are consistent with anemia of chronic inflammation. proBNP was elevated on admission at 7516 and remained unchanged. Radiologic studies performed during his hospitalization include a renal ultrasound on admission that showed a 1.5 cm nonobstructing stone in the mid left kidney there was no evidence for hydronephrosis. Chest 2 Views on admission showed no acute findings head CT scan without contrast showed no acute intracranial process he has chronic sinus changes in the left maxillary sinus. Echocardiogram was performed it was a technically difficult and suboptimal study nevertheless left ventricle appeared to be grossly normal in size and function with an EF of 55%. RV was not well visualized. Left atrium is moderately dilated right atrium is mildly dilated aortic valve is sclerotic and trileaflet with a trace regurgitation. Mitral annular calcification with a trace of mitral regurgitation was seen. RV systolic pressures could not be estimated. As the patient had completed a 7-day course of antibiotics with source control of his infection including replacement of his Griffin catheter and clearance of his bacteremia it was felt that he had had adequate antibiotic treatment and could be discharged home. He was doing well and was afebrile at the time of discharge. His appetite was good. For his diabetes because of his renal failure he was taken off of his glipizide and he was placed on basal bolus insulin as well as his Jardiance. His Lantus dose was titrated upwards to 22 units. He was placed on moderate dose sliding scale insulin. Blood sugars while hospitalized were under variable control but generally at the time of discharge was running in the 180-220 range. He will be discharged home on Lantus 22 units every afternoon along with NovoLog 5 units with each meal in addition to a moderate dose sliding scale. His Jardiance was continued but his glipizide was discontinued. At the time of discharge his vital signs were stable with a BP 117/73, pulse 79 irregularly irregular with a respiratory rate of 22 breaths/min oxygen saturation 99% on room air. His weight at discharge was 145.6 kg. He is discharged in markedly improved condition with instructions to follow-up with his primary care provider next week and with Dr. Santos next month. Of note we had to hold his warfarin because of a rising INR probably related to antibiotic use with antibiotic interaction with his warfarin. His pro time on admission was 2.3 and peaked to as high as 3.8 on the day prior to discharge but was down to 3.2 on the day of discharge. He is to hold his warfarin tonight and get his pro time checked tomorrow morning. Home Meds and New Rx's Prescriptions: New metoprolol succinate [Toprol XL] 100 mg tablet extended release 24 hr 100 mg PO DAILY Qty: 30 0RF insulin aspart U-100 [Novolog FlexPen U-100 Insulin] 100 unit/mL (3 mL) insulin pen 5 unit subcut AC Qty: 15 0RF Continued pravastatin 40 mg tablet 40 mg PO QPM Qty: 90 3RF finasteride 5 mg tablet 5 mg PO DAILY Qty: 90 3RF multivitamin [Daily Multiple] 1 EACH tablet 1 ea PO DAILY omeprazole 20 MG capsule,delayed release(DR/EC) 20 mg PO DAILY 5-hydroxytryptophan (5-HTP) [5-HTP] 100 mg capsule 100 mg PO DAILY melatonin 5 mg capsule 5 mg PO HS coenzyme Q10 [Co Q-10] 10 mg capsule 10 mg PO DAILY potassium chloride [Klor-Con M10] 10 mEq tablet,ER particles/crystals 30 meq PO DAILY Qty: 270 0RF Rx Instructions: dose increase 08/30/22 tamsulosin 0.4 mg capsule 0.4 mg PO HS Qty: 90 3RF Jardiance 25 mg tablet 25 mg PO QAM Qty: 90 3RF lidocaine HCl [Glydo] 2 % jelly in applicator 10 ml intra-urethral ONCE Qty: 120 0RF Rx Instructions: as a single dose - one dose per catheter change. lactulose 10 gram packet 10 g PO DAILY PRN (Reason: constipation) Qty: 30 1RF acetaminophen [Tylenol] 325 mg Tablet 650 mg PO Q4H PRN PRNQty: 0 0RF docusate sodium [Colace] 100 mg capsule 100 mg PO DAILY metolazone 5 mg tablet 5 mg PO .q , Sat PRN (Reason: weight gain 3lbs/day or 7 lbs/week) Changed torsemide 20 mg tablet 40 mg PO DAILY Qty: 360 3RF insulin glargine [Lantus Solostar U-100 Insulin] 100 unit/mL (3 mL) insulin pen 22 unit subcut QPM Qty: 15 1RF Held warfarin 2.5 mg tablet 2.5 mg PO DAILY Qty: 90 3RF Hold Instructions: Resume on 01/07/23. get repeat INR done tomorrow and check with your primary care provider regarding adjusting your dose Protocol: Dose Management Condition: Saturday Dose/Route: 2.5 mg Instruction: 1 x 2.5 mg tablet Condition: Saturday Dose/Route: 2.5 mg Instruction: 1 x 2.5 mg tablet Condition: Saturday Dose/Route: 2.5 mg Instruction: 1 x 2.5 mg tablet Condition: Saturday Dose/Route: 2.5 mg Instruction: 1 x 2.5 mg tablet Condition: Dose/Route: 2.5 mg Instruction: 1 x 2.5 mg tablet Condition: Saturday Dose/Route: 2.5 mg Instruction: 1 x 2.5 mg tablet Condition: Saturday Dose/Route: 2.5 mg Instruction: 1 x 2.5 mg tablet Protocol Text: Adjustment Start Date: Saturday12/26/22 INR Value: 2.3 INR Date: 12/25/22 Recheck Date: 01/09/23 Discontinued amlodipine 5 mg tablet 5 mg PO DAILY Qty: 90 4RF metoprolol tartrate 100 mg tablet 50 mg PO BID Qty: 60 5RF glipizide 5 mg tablet 10 mg PO DAILY Qty: 180 3RF Rx Instructions: Take prior to breakfast. No Action (DME) pen needle, diabetic [Comfort EZ Pen [place]] 33 gauge x 3/16 needle See Rx Instructions .ROUTE .MEDSUPPLY Qty: 100 3RF Rx Instructions: inject once/day (DME) blood-glucose meter [OneTouch Ultra2 Meter] 1 EACH kit 1 ea Miscellaneous DAILY Qty: 1 (DME) lancets [OneTouch UltraSoft Lancets] misc 1 ea Miscellaneous DAILY Qty: 90 4RF Rx Instructions: test daily before breakfast (DME) OneTouch Ultra Test Strip 1 ea Miscellaneous DAILY Qty: 90 3RF Rx Instructions: test daily before breakfast Discharge Instructions Instructions: Warfarin (By mouth), A-fib (Atrial Fibrillation) (DC), Catheter- associated Urinary Tract Infection (DC) Additional Instructions: Do not take your warfarin (coumadin) tonight but get your prothrombin time checked tomorrow and check with your primary care provider regarding any new adjustment in your dose. Your INR was elevated during your hospitalization making it necessary to hold it. Your were treated for a urinary tract infection which had spread to your blood stream and was E coli. Your repeat blood culture showed that you had cleared the infection from the blood stream. You were treated w/ iv antibiotics including Ceftriaxone for 7 days and you should not need further antibiotics. You should follow up with your urologist and have your griffin catheter changed at least monthly or sooner if the urine is appearing dark and cloudy. You should have follow up blood work in the next week to include a basic metabolic profile. Dr. Caro can order this to monitor your kidney function. Stand Alone Forms: Nursing Discharge Form Referrals: Naveen Santos MD [ [facility] STAFF PHYSICIAN] - (Please call on Saturday to make a follow up appointment) Gordo Dominguez MD [Primary Care Provider] - (Please call on Saturday to make a follow up appointment.) Activity:: Activity as Tolerated Equipment/Supplies:: No Equipment Needed Diet:: Carb Counting Discharge Orders Discharge Orders: Discharge Order (Routine); Ordered 01/06/23 Ordered By: Robert Traore DS: Summary Time Spent with Patient providing and/or coordinating discharge services: Greater than 30 minutes Specific discharge activities: Interview/exam of patient; review of discharge instructions, completion of prescriptions/discharge instructions; discussion w/ nursing and CM; documentation of hospital visit Status at Discharge Functional status at discharge: independent ambulation Overall status at discharge: patient is back to baseline Mental Status: mental status grossly normal Speech and Movement: speech and movement normal Mood: congruent mood Affect: normal affect Exam Narrative Exam Narrative: Alert and oriented x3 no acute distress no respiratory discomfort no chest pain Lungs are clear to auscultation anteriorly Heart is irregular irregular controlled rate review of rhythm strip shows he is in atrial fibrillation in the 60s to 70s Abdomen is obese soft and nontender Legs with 1+ pitting edema and bronze venous stasis skin changes Psych Mental Status: mental status grossly normal Speech and Movement: speech and movement normal Mood: congruent mood Affect: normal affect DS: Data Vitals/I&O Vitals and I&O: Vital Signs Temperature 36.5 C 01/06/23 11:06 Temperature Source Tympanic 01/06/23 11:06 Pulse 79 01/06/23 11:06 Pulse Rhythm Irregular 01/06/23 09:30 Pulse 101 H 01/01/23 12:40 Respiratory Rate 22 01/06/23 11:06 Respiratory Effort Normal 01/06/23 09:30 Respiratory Depth Normal 01/06/23 09:30 Respiratory Pattern Normal 01/06/23 09:30 Blood Pressure 117/73 01/06/23 11:06 Blood Pressure Mean 71 01/01/23 12:30 Blood Pressure Position Sitting 12/31/22 06:39 Pulse Oximetry 99 01/06/23 11:06 Oxygen Delivery Method Room Air 01/06/23 11:06 Oxygen Flow Rate 0 01/06/23 11:06 Fraction of Inspired Oxygen (FIO2) 21 01/04/23 08:00 Pain Level 0 01/06/23 07:27 Comment refused vitals 01/04/23 23:16 Intake & Output 01/05/23 01/06/23 01/06/23 23:59 11:59 23:59 Intake Total 816.5 / 816.5 10 Output Total 1000 / 1650 1250 / 1250 Balance -183.5 / -833.5 -1240 / -1240 Weight 145.6 kg Intake: IV 96.5 / 96.5 Oral 720 / 720 Output: Urine 1000 / 1650 1250 / 1250 Other: Urine Color Light Hui Yellow Urine Appearance Clear Cloudy Data Completed and Pending Labs on day of discharge: Labs from last 24 hours 01/06/23 01/06/23 01/06/23 05:53 05:53 05:53 WBC 8.68 RBC 3.37 L Hgb 9.1 L Hct 29.3 L MCV 87 MCH 27.0 MCHC 31.1 L RDW 15.9 H Plt Count 284 MPV 9.0 Immature Gran % 1.4 Neutrophils % 75.6 Lymphocytes % 14.2 Monocytes % 6.9 Eosinophils % 1.6 Basophils % 0.3 Nucleated RBC % 0.0 Absolute Neutrophils 6.56 Absolute Lymphocytes 1.23 Absolute Monocytes 0.60 Absolute Eosinophils 0.14 Absolute Basophils 0.03 PT INR Sodium Potassium Chloride Carbon Dioxide Anion Gap BUN Creatinine Est GFR (CKD-EPI 2020) Glucose Calcium Iron TIBC Transferrin Pending Transferrin % Sat Ferritin Lactate Dehydrogenase C-Reactive Protein Vitamin B12 Folate Procalcitonin 0.3 01/06/23 01/06/23 01/06/23 05:53 05:53 05:53 WBC RBC Hgb Hct MCV MCH MCHC RDW Plt Count MPV Immature Gran % Neutrophils % Lymphocytes % Monocytes % Eosinophils % Basophils % Nucleated RBC % Absolute Neutrophils Absolute Lymphocytes Absolute Monocytes Absolute Eosinophils Absolute Basophils PT INR Sodium 136 Potassium 4.1 Chloride 102 Carbon Dioxide 21.7 Anion Gap 12.3 H BUN 69 H Creatinine 4.8 H* Est GFR (CKD-EPI 2020) 11.37 Glucose 230 H Calcium 9.4 Iron 30 L TIBC 213 L Transferrin Transferrin % Sat 14 L Ferritin 134 Lactate Dehydrogenase 202 C-Reactive Protein 10.23 H Vitamin B12 902 Folate > 20.0 H Procalcitonin 01/06/23 05:53 WBC RBC Hgb Hct MCV MCH MCHC RDW Plt Count MPV Immature Gran % Neutrophils % Lymphocytes % Monocytes % Eosinophils % Basophils % Nucleated RBC % Absolute Neutrophils Absolute Lymphocytes Absolute Monocytes Absolute Eosinophils Absolute Basophils PT 32.1 H INR 3.2 H Sodium Potassium Chloride Carbon Dioxide Anion Gap BUN Creatinine Est GFR (CKD-EPI 2020) Glucose Calcium Iron TIBC Transferrin Transferrin % Sat Ferritin Lactate Dehydrogenase C-Reactive Protein Vitamin B12 Folate Procalcitonin Preliminary micro results at discharge 01/02/23 05:00 Blood Culture - Preliminary Blood NO GROWTH 96 HOURS 01/02/23 04:50 Blood Culture - Preliminary Blood NO GROWTH 96 HOURS PFSH All Active Problems (Updated 01/06/23 @ 14:27 by Robert Traore MD) Gram-negative bacteremia (Acute) Bacteremia (Acute) DVT prophylaxis (Acute) Hypokalemia (Acute) Acute renal failure (Acute) Acute UTI (Acute) Acute dehydration (Acute) Diabetes mellitus (Chronic) Atrial fibrillation (Chronic) on coumadin Chronic kidney disease (Chronic) 2020- borderline stage 4 Venous insufficiency (chronic) (peripheral) (Acute) Nail dystrophy (Acute) COVID-19 (Acute ~08/05/22) Thumb pain (Acute) Right heart failure (Acute) Urinary retention (Acute) 11/2021, ultrasound shows significant pretty and post void residual- minimal response to voiding Kidney stones (Chronic) Longstanding history of multiple stones 11/2021 ultrasound showed multiple stones in kidney, 1 stone possibly in right ureter Anemia (Chronic) Chronic mild anemia, associated with CKD Obstructive sleep apnea (Chronic) cpap Acute on chronic heart failure with preserved ejection fraction (Acute) Hives (Acute) Obesity (Acute 02/11/13) Obstructive nephropathy (Acute) Moderate pulmonary arterial systolic hypertension (Chronic) Chronic anticoagulation (Chronic) Polyp of colon (Chronic) Rosacea (Chronic) Constipation (Chronic) CHF (congestive heart failure) (Chronic) Medical History Atrial fibrillation BPH (benign prostatic hyperplasia) Diabetes mellitus type 2 in obese Essential hypertension, benign GERD (gastroesophageal reflux disease) Hyperlipidemia Nephrolithiasis Obesity hypoventilation syndrome LUCAS on CPAP Palliative care patient Surgical History Cholecystectomy (~1985) Colonoscopy - MAC (~2002) Replacement of total knee joint B/L Tonsillectomy and adenoidectomy Family History Mother Diabetes Heart disease Father Neoplasm STOMACH Brother Neoplasm Brother No problems noted. Daughter No problems noted. Social History Smoking/Tobacco Use Status: Never Second Hand Exposure: No Smoking risk assessment performed?: Yes Alcohol Intake: current Alcohol Intake frequency: holidays/special occasions only Drug use: Never Substance use type: does not use Caregiver/Support person: Yes Household members: spouse Housing: house Communication Needs: Hard of Hearing Do you need help understanding health information?: Often Pets and animals: No Sexually active: No What is your relationship status?: How often do you talk on the phone with friends or family?: decline to answer How often do you get together with friends or relatives?: decline to answer How often do you attend hoahaoism or hindu services?: decline to answer Do you belong to any clubs or organized social groups?: decline to answer Panel score (0-1 are the most socially isolated patients): 1 What type of physical activity do you participate in: walking Duration: < 15 minutes/day Frequency: daily Special amor needs: No Do you feel safe at home: Yes Do you feel safe in your relationship?: Yes Time Spent with Patient Time Spent with Patient: <45 minutes Time was spent: preparing to see the patient(eg.review tests), ordering medications,tests, procedures, indepentently interpreting results, counseling the patient and care coordination
[2023-01-06 14:30] VITALS: PULSE 72
--- NOTE | 2023-01-06 15:07 | PDOC.HHF2F ---
Home Health Referral Home Health Orders Clinical synopsis of why skilled professionals are needed: Admitted with symptoms of sepsis including weakness fever chills rigors found to have urinary tract infection with E. coli bacteremia. 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 Patient continues to have generalized weakness secondary to recent infection and requires ongoing PT and OT for gait and strength training and balance. Mr Winkler is an 82 year old male with PMHx of R heart failure as well as Afib on coumadin, CKD w/ a baseline Cr of 3.0, IDDM2, chronic indwelling griffin catheter for a h/o urinary retention, whom the hospitalist service was asked to admit for a UTI, encephalopathy, and KENNETH on CKD. The patient states that he is here because of low blood pressure and weakness. He denies having fevers, a cough, falls, or any other symptoms including chest pain or shortness of breath at home, and states that the symptoms have lasted for two days. Here the workup was consistent with a UTI and dehydration. He was initiated on IV ceftriaxone and IVF, and his griffin catheter was changed in the ER. Work-up on admission revealed him to be in acute on chronic renal failure with a BUN of 54 creatinine 4.8 and a low potassium of 2.5 with normal magnesium 2.2.? CBC demonstrated leukocytosis of 12,720 with a mildly elevated procalcitonin level of 0.5 which later peaked at 1.9 before settling down to 0.3.? Troponin level was elevated on admission to 80 9 repeat level was 86 CK level was normal at 55 transaminases were minimally elevated with an AST of 44 alkaline phosphatase 150.? As his blood pressures were soft his amlodipine was discontinued he was initially given gentle IV fluid hydration which later had to be discontinued and he was resumed on diuretics.? Blood and urine cultures were obtained as Griffin catheter was exchanged.? Blood cultures from 12/31/2022 showed 1 set positive for E. coli which eventually was found to be pansensitive.? The other blood culture was no growth on 12/31/2022 follow-up blood cultures and cleared on 01/02/2023.? Urine culture had mixed gram-negative sapphire and mixed gram-positive sapphire with no predominant species. Patient was initially treated with vancomycin and cefepime and then later downgraded to ceftriaxone 2 g daily.? Patient was afebrile on admission but had a low-grade temp on 01/01/2023 of 37.8 but remained afebrile thereafter.? Serial CBC and BMPs were monitored during his hospital stay and his white blood cell count peaked at 15,500 on 01/01/2023 before normalizing on 01/04/2023.? On the day of discharge his white cell count was normal at 8680.? Patient has stable chronic anemia hemoglobin of around 9 g hematocrit 29%.? Serial BMPs were monitored his potassium he had a jeannine of 2.5 on admission with supplementation over the next couple days his potassium remained in the 3.1-3.4 range but at the time of discharge was normal at 4.1.? His BUN and creatinine remained essentially unchanged at the time of discharge was 69 and 4.8 respectively.? Anemia work-up was pursued including serum LDH which was normal at 202 ferritin level was normal at 134 transferrin saturation was low at 14% TIBC was low at 213 mcg/dL and serum iron was low at 38 mcg/dL.? These findings are consistent with anemia of chronic inflammation.? proBNP was elevated on admission at 7516 and remained unchanged. Radiologic studies performed during his hospitalization include a renal ultrasound on admission that showed a 1.5 cm nonobstructing stone in the mid left kidney there was no evidence for hydronephrosis.? Chest 2 Views on admission showed no acute findings head CT scan without contrast showed no acute intracranial process he has chronic sinus changes in the left maxillary sinus.? Echocardiogram was performed it was a technically difficult and suboptimal study nevertheless left ventricle appeared to be grossly normal in size and function with an EF of 55%.? RV was not well visualized.? Left atrium is moderately dilated right atrium is mildly dilated aortic valve is sclerotic and trileaflet with a trace regurgitation.? Mitral annular calcification with a trace of mitral regurgitation was seen.? RV systolic pressures could not be estimated. As the patient had completed a 7-day course of antibiotics with source control of his infection including replacement of his Griffin catheter and clearance of his bacteremia it was felt that he had had adequate antibiotic treatment and could be discharged home.? He was doing well and was afebrile at the time of discharge.? His appetite was good.? For his diabetes because of his renal failure he was taken off of his glipizide and he was placed on basal bolus insulin as well as his Jardiance.? His Lantus dose was titrated upwards to 22 units.? He was placed on moderate dose sliding scale insulin.? Blood sugars while hospitalized were under variable control but generally at the time of discharge was running in the 180-220 range.? He will be discharged home on Lantus 22 units every afternoon along with NovoLog 5 units with each meal in addition to a moderate dose sliding scale.? His Jardiance was continued but his glipizide was discontinued. At the time of discharge his vital signs were stable with a BP 117/73, pulse 79 irregularly irregular with a respiratory rate of 22 breaths/min oxygen saturation 99% on room air.? His weight at discharge was 145.6 kg.? He is discharged in markedly improved condition with instructions to follow-up with his primary care provider next week and with Dr. Santos next month.? Of note we had to hold his warfarin because of a rising INR probably related to antibiotic use with antibiotic interaction with his warfarin.? His pro time on admission was 2.3 and peaked to as high as 3.8 on the day prior to discharge but was down to 3.2 on the day of discharge.? He is to hold his warfarin tonight and get his pro time checked tomorrow morning. Medical diagnosis necessitation home health referral: Urosepsis with E. coli bacteremia Registered Nurse: Check all that apply Instruct on new or changed medication(s)/assess compliance: Ordered Instruct on, and maintenance of, urinary device: Ordered (Griffin catheter) Physical Therapist: Check all that apply Increase strength & endurance for safe mobility at home: Ordered To design/establish home maintenance program: Ordered Fall reduction therapy program for patient with history of frequent falls: Ordered Home safety evaluation and teaching/gait training including stair management (if applicable): Ordered Occupational Therapist: Evaluate and treat for patient unable to perform ADL/IADL/self-care: Ordered Upper extremity strengthening, range and motion: Ordered Vegetable Preparer: Assist with community resources: Ordered Home Bound Status Requires the aid of supportive device (check all that apply): Walker Encounter Date and Reason: I certify that a FTF encounter for this patient was performed on January 06, 2023 and that such encounter was related to the primary reason the patient requires home health services. The encounter was conducted in the following manner: By me as the certifying physician, BUN MACHINE OPERATOR, PA or By an inpatient physician, BUN MACHINE OPERATOR or PA during an inpatient stay who communicated findings to me, Certification And Authentication I certify that I composed the above information based on my clinical judgment relating to this patient's medical condition and, if applicable, clinical findings communicated to me by the NPP or inpatient physician who performed the FTF encounter. Name of Provider that will be monitoring home health services: Gordo Dominguez
--- NOTE | 2023-01-06 17:25 | CMDISCH_ITS ---
- If Service Date Differs Date of service: 01/06/23 Time of Service: 17:25 LACE Index Scoring Tool - Questions: Length of Stay (in days): 4 - 6 Acuity (Admit via E.D.?): Yes Comorbidities: Diabetes w/o Complication, Congestive Heart Failure, Liver or Renal Disease E.D. Visits: 1 - Answers: Total Score: 13 Risk of Readmission: High Risk Care Management Discharge Reason for Hospitalization: Sepsis, Acute UTI, bacteremia, KENNETH Discharge Plan: Sav returned home today with a resumption of CARMEN RN, and the addition of PT, OT, MECHANICAL DEVELOPER PROVER. His drove him home via private vehicle. He will follow up with his PCP and discharge plan of care. Patient/Family Education Needs: Review discharge instructions and limitations, discussion of self care needs including ask me three. Services Needed at Discharge: Home Health Care Services (resume HH RN, add PT, OT, MECHANICAL DEVELOPER PROVER)
[2023-01-07 12:48] LABS: Transferrin 188 mg/dL (201-352)
--- NOTE | 2023-01-22 17:55 | PT.INDS ---
Date of service: 01/07/23 Time of Service: 17:00 PT Notes Visit Reasons: Sepsis Due to a UTI,PNA Physical Therapy Inpatient Discharge Summary Date: 01/01/2023 Dates of service: 01/01/2023 through 01/06/2023 This is a clinical summary of care provided for the duration of dates listed above. No charge was made in the completion of this documentation. Referring Doctor:? Anali Miller,? PT Orders: PT CONSULT: Limited ability Precautions: Fall. Standard.? Activity as tolerated. Patient Profile/Admitting Diagnosis:? Patient is a 82-year-old male admitted for the management of acute urinary tract infection,? acute renal failure,? AF,? CHF,? BPH, DM TYpe II,? HTN,? GERD, and hypokalemia.? PMHX: All Active Problems?(Updated 12/31/22 @ 16:44 by Anali Miller MD) Discharge planning issues (Acute) DVT prophylaxis (Acute) Dehydration (Acute) Acute kidney injury superimposed on chronic kidney disease (Acute) Hypokalemia (Acute) Acute renal failure (Acute) Acute hypokalemia (Acute) Acute UTI (Acute) Acute dehydration (Acute) Diabetes mellitus (Chronic) Atrial fibrillation (Chronic) on coumadin Chronic kidney disease (Chronic) 2020- borderline stage 4Venous insufficiency (chronic) (peripheral) (Acute) Nail dystrophy (Acute) COVID-19 (Acute ~08/05/22) Thumb pain (Acute) Right heart failure (Acute) Urinary retention (Acute) 11/2021, ultrasound shows significant pretty and post void residual- minimal response to voiding Kidney stones (Chronic) Longstanding history of multiple stones 11/2021 ultrasound showed multiple stones in kidney, 1 stone possibly in right ureter Anemia (Chronic) Chronic mild anemia, associated with CKDObstructive sleep apnea (Chronic) cpap Acute on chronic heart failure with preserved ejection fraction (Acute) Hives (Acute) Obesity (Acute 02/11/13) Obstructive nephropathy (Acute) Moderate pulmonary arterial systolic hypertension (Chronic) Chronic anticoagulation (Chronic) Polyp of colon (Chronic) Rosacea (Chronic) Constipation (Chronic) CHF (congestive heart failure) (Chronic) Medical History? Atrial fibrillation BPH (benign prostatic hyperplasia) Diabetes mellitus type 2 in obese Essential hypertension, benign GERD (gastroesophageal reflux disease) Hyperlipidemia Nephrolithiasis Obesity hypoventilation syndrome LUCAS on CPAP Palliative care patient Surgical History? Cholecystectomy (~1985) Colonoscopy - MAC (~2002) Replacement of total knee joint B/LTonsillectomy and adenoidectomy Social History/Home Situation: Patient lives with Lashawn in a 1 floor house in [facility] with 2 steps to enter, no rails.?? 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 They have one supportive daughter who lives locally.? states that she uses a device that she holds up to him so that he can pull on it to sit up in bed.? She adds that he has walked for over a week now due to weakness,? pain in B knees and fearfulness of falling.? Equipment Owned/DME: Bed that has changeable angles at the head and the knee but is not able to move up nor down.? Motorized wheelchair.? FWW SPC Subjective:? NT. See most recent CORPORATE BUYER notes. Objective:? General Observation: NT. See most recent CORPORATE BUYER notes. Mental Status: NT. See most recent CORPORATE BUYER notes. Pain: NT. See most recent CORPORATE BUYER notes. ROM: Right Upper Extremity: ? Shoulder Flexion about 10 degrees. Shoulder abduction about 10 degrees. Elbow flexion WFL. Wrist flexion WFL. Functional opening and closing of hand WFL. Left Upper Extremity:? Shoulder Flexion about 10 degrees. Shoulder abduction about 10 degrees. Elbow flexion WFL. Wrist flexion WFL. Functional opening and closing of hand WFL. Right Lower Extremity: Hip flexion up to 90 degrees. Hip abduction WFL. Knee flexion 0-100. Ankle dorsiflexion WFL. Ankle plantarflexion WFL. Left Lower Extremity: Hip flexion WFL. Hip abduction WFL. Knee flexion WFL. Ankle dorsiflexion WFL. Ankle plantarflexion WFL. Strength: Right Upper Extremity: Shoulder flexors 2-/5. Shoulder abductors 2-/5. Elbow flexors 4-/5. Elbow extensors 4-/5. Corn Cutter strong. Left Upper Extremity: Shoulder flexors 2-/5. Shoulder abductors 2-/5. Elbow flexors 4-/5. Elbow extensors 4-/5. Corn Cutter strong. Right Lower Extremity: Hip flexors 3-/5. Hip abductors 4/5. Knee flexors 3-/5. Knee extensors 4-/5. Ankle dorsiflexors 4-/5. Ankle plantarflexors 4-/5. Left Lower Extremity:Hip flexors 3-/5. Hip abductors 4/5. Knee flexors3-/5. Knee extensors 4-/5. Ankle dorsiflexors 4-/5. Ankle plantarflexors 4-/5. BED MOBILITY/TRANSFERS? Sit-stand: SBA ? Stand-sit: SBA? GAIT? Assistive Device: FWW ? Weight bearing: Full Assist: SBA ? Distance: 60' with CGA ? Deviation: slow meredith, low step height and step lenght, ANDREW with activity. Balance:? Static Sitting: Good Dynamic Sitting: Good Static Standing: Fair Dynamic Standing: Fair Assessment:? Patient is a 82-year-old male admitted for the management of acute urinary tract infection,? acute renal failure,? AF,? CHF,? BPH, DM TYpe II,? HTN,? GERD, and hypokalemia.? He presents with considerable functional mobility decline which requires assistnce of two people for al;l mobibility ADL performance.? Patient will not thrive well at home only relying on who will not be able to provide the assistance he needs.? Patient presents with clinical signs and symptoms consistent with current/admitting diagnoses that have resulted to mobility limitations, gait instability, generalized weakness, and impairment of motor control as demonstrated by the following impairment level findings: 1.? Decreased strength to B LE major muscle groups 2.? Impaired sitting/standing balance 3.? Impaired activity tolerance/endurance 4.? Obesity 5.? Shortness of breath 6.? fearfulness of falling 7.? Pain in B knees Impairments are contributing to the following functional limitations: 1.? Dependent bed mobility skills 2.? Increased dependence with transfers 3.? Inability to safely ambulate without assistive device and physical assistance 4.? Increase completion time for mobility ADL performance 5.? Increased fall risk 6.? Inability to negotiate steps alone safely 7.? AMPAC score of 69% deficit Goals: Goals X1 week 1. Supine-Sit independent NOT MET 2. Sit-Supine independent NOT MET 3. Sit-Stand supervision with FWW NOT MET 4. Stand-Sit supervision with FWW NOT MET 5. Bed-Chair supervision with FWW NOT MET 6. Chair-Bed supervision with FWW NOT MET 7. Contact guard assist gait on level surface with use of FWW for at least 30 feet without report of pain nor dyspnea NOT MET 8. Contact guard assist stair negotiation while holding onto bilateral rails for at least 3 steps without report of pain nor dyspnea NOT MET DISCHARGE RECOMMENDATIONS: [] ? Home with no services [] [] ? Home with services [specify] [] ? Home with outpatient PT [] [X] ? SNF for continued rehabilitation.? Patient will benefit from senior care facility placement for continued skilled physical therapy services in order to progress mobility level, strength, and balance in preparation for a safe discharge to home. [] ? [facility] [] [] ? SNF versus LTC based on ability to participate and progress [] TREATMENT CODE/TIME: NC Thank you for the opportunity to participate in the care of this patient. Madhavi Victoria PT, DPT, CLT [facility] [place], [place]
== END 2023-01-06 15:19 | disposition home health service (06) | DRG 872 ==
LOC: ER 15:49 → MS 01-01 13:35
PROVIDERS: Emergency Medicine; Internal Medicine; Admitting Provider Internal Medicine; Emergency Provider Student in an Organized Health Care Education/Training Program; PCP Family Medicine; Visit Provider Internal Medicine
DX: A41.51 Sepsis due to Escherichia coli [E. coli] (principal); I13.0 Hypertensive heart and chronic kidney disease with heart failure and stage 1 through stage 4 chronic kidney disease, or unspecified chronic kidney disease; N39.0 Urinary tract infection, site not specified; I50.32 Chronic diastolic (congestive) heart failure; Z68.41 Body mass index [BMI] 40.0-44.9, adult; I48.11 Longstanding persistent atrial fibrillation; N18.4 Chronic kidney disease, stage 4 (severe); G93.40 Encephalopathy, unspecified; N17.9 Acute kidney failure, unspecified; E87.6 Hypokalemia; E86.0 Dehydration; Z79.01 Long term (current) use of anticoagulants; Z79.4 Long term (current) use of insulin; Z79.84 Long term (current) use of oral hypoglycemic drugs; E11.22 Type 2 diabetes mellitus with diabetic chronic kidney disease; G47.33 Obstructive sleep apnea (adult) (pediatric); R60.0 Localized edema; I87.2 Venous insufficiency (chronic) (peripheral); N20.0 Calculus of kidney; D63.1 Anemia in chronic kidney disease; E66.9 Obesity, unspecified; I27.20 Pulmonary hypertension, unspecified; L71.9 Rosacea, unspecified; K59.00 Constipation, unspecified; N40.0 Benign prostatic hyperplasia without lower urinary tract symptoms; K21.9 Gastro-esophageal reflux disease without esophagitis; E78.5 Hyperlipidemia, unspecified; Z96.653 Presence of artificial knee joint, bilateral; R33.9 Retention of urine, unspecified; Z66 Do not resuscitate
CPT/HCPCS: 36410; 36415; 51702; 76770; 80048; 80053; 82550; 82805; 84145; 87040; 87077; 87637; 93005; 93306; 96361; 96365; 96366; 96367; 97162; 97530; 99291; 70450; 71045; 81003; 81015; 82607; 82728; 82746; 83540; 83550; 83605; 83615; 83735; 83880; 84132; 84466; 84484; 84540; 85025; 85045; 85610; 85730; 86140; 87086; 87186; 93010; 99223; 99231; 99232; 99233; 99239; J1940; J3480

== ENCOUNTER → 2023-02-20 11:39 | Outpatient (BNVA) | payer MEDICARE, SELFPAY | PROVIDERS: PCP Family Medicine; Referring Provider Family Medicine; Visit Provider Nurse Practitioner Gerontology | DX: R33.8 Other retention of urine (principal); Z96.0 Presence of urogenital implants | CPT/HCPCS: 99213 ==

== ENCOUNTER 2023-03-20 17:56 | Outpatient (REF) | payer MEDICARE, SELFPAY ==
[2023-03-20 18:23] LABS: Abs Immature Grans 0.17 10^3/uL (0.0-0.06); Absolute Basophil Count 0.02 10^3/uL (0.0-0.2); Absolute Eosinophil Count 0.19 10^3/uL (0.0-0.7); Absolute Lymphocyte Count 1.27 10^3/uL (1.2-3.4); Absolute Monocyte Count 0.96 10^3/uL (0.1-0.8); Basophils % 0.2; Eosinophils % 1.5; Immature Grans % 1.4; Lymphocytes % 10.2; MCH 26.4 pg (27.0-33.0); MCHC 30.3 % (32.0-36.0); MCV 87 fL (80-95); Monocytes % 7.7; Platelet Count 278 10^3/uL (130-400); RBC 2.31 10^6/uL (4.36-5.78); RDW-SD 53.2 fL; WBC 12.48 10^3/uL (4.4-10.8)
[2023-03-20 18:40] LABS: ALT 17 U/L (16-63); AST 27 U/L (15-37); Albumin 1.8 g/dL (3.4-5.0); Alkaline Phosphatase 228 U/L (46-116); Anion Gap 12.3 mmol/L (3-11); BUN 56 mg/dL (7-18); Bilirubin, Total 0.6 mg/dL (0.2-1.0); CO2 18.7 mmol/L (21.0-32.0); Calcium 9.2 mg/dL (8.5-10.1); Chloride 108 mmol/L (98-107); Estimated GFR 9.25 (mL/min/1.73m2); Glucose 214 mg/dL (74-106); NT-proBNP 12226 pg/mL (<300); Potassium 5.3 mmol/L (3.5-5.1); Sodium 139 mmol/L (136-145); Total Protein 7.4 g/dL (6.4-8.2)
[2023-03-20 19:56] LABS: Absolute Neutrophil Count 9.86 10^3/uL (1.2-6.7)
[2023-03-20 19:57] LABS: HCT 20.1 % (40.0-50.0); HGB 6.1 g/dL (13.5-17.5)
[2023-03-20 20:05] LABS: CREATININE 5.7 mg/dL (0.70-1.30)
[2023-03-20 20:37] LABS: Bilirubin Negative (Negative); Blood Moderate (Negative); Clarity Cloudy (Clear); Glucose 250 mg/dL (Negative); Ketones Negative (Negative); Leukocyte Esterase Moderate (Negative); Nitrite Negative (Negative); Specific Gravity 1.015 (1.005-1.025); Urobilinogen 0.2 mg/dL (Up to 0.2); pH 5.5 (5-8)
[2023-03-20 20:49] LABS: WBC 20-50 HPF (0-5)
[2023-03-20 20:50] LABS: Bacteria Many HPF (Negative); C & S Indicated? Yes; Casts Negative LPF (Negative); Crystals Negative HPF (Negative); Epithelial Cells Rare HPF (Negative); Mucus Negative (Negative)
== END 2023-03-20 17:57 | disposition home or self-care (01) ==
LOC: LBN 17:56
PROVIDERS: PCP Family Medicine; Visit Provider Family Medicine
DX: R06.89 Other abnormalities of breathing (principal); R53.1 Weakness; R60.9 Edema, unspecified; R82.90 Unspecified abnormal findings in urine; I50.810 Right heart failure, unspecified
CPT/HCPCS: 80053; 87077; 81003; 81015; 83880; 85025; 87086; 87186

== ENCOUNTER 2023-03-21 10:07 | Inpatient (IN) | payer MEDICARE, SELFPAY ==
[2023-03-21] VITALS (10 sets, daily range): BP systolic 106–143; BP diastolic 49–86; PULSE 66–80; RESP 8–30; TEMP 36.6–38.1; O2SAT 92–99
--- NOTE | 2023-03-21 10:00 | RT.EKG_ITS ---
APPROVED REPORT Exam: Resting ECG Reason for Exam: sob Patient Location: E HR:69 bpm ECG Measurements Heart Rate 69 AXIS VT [id number] P [id number] QRSd 98 QRS 52 QT 416 T 21 QTc 445 Conclusion Atrial fibrillation...? atrial activity Low voltage, extremity and precordial leads...extremity<0.5mV, precordial<1.0mV. Afib. No acute ischemic findings. I have reviewed and interpreted ECG and agree with software generated interpretation.
--- NOTE | 2023-03-21 10:40 | ED.GENADUL_ITS ---
Discharge Plan Disposition Patient Disposition: Admit to [facility] Discharge Details Chief Complaint: SOB Clinical Impression: Fever, Chronic indwelling Griffin catheter, Symptomatic anemia Primary Care Provider: Gordo Dominguez ED Provider: Ophelia Gleason Home Meds and New Rx's Prescriptions: No Action insulin aspart U-100 [Novolog FlexPen U-100 Insulin] 100 unit/mL (3 mL) insulin pen 30 unit subcut AC Qty: 45 3RF insulin glargine [Lantus Solostar U-100 Insulin] 100 unit/mL (3 mL) insulin pen 40 unit subcut QPM Qty: 45 3RF warfarin 2.5 mg tablet 2.5 mg PO DAILY Qty: 90 3RF Hold Instructions: Resume on 01/07/23. get repeat INR done tomorrow and check with your primary care provider regarding adjusting your dose Protocol: Dose Management Condition: Saturday Dose/Route: 2.5 mg Instruction: 1 x 2.5 mg tablet Condition: Saturday Dose/Route: 2.5 mg Instruction: 1 x 2.5 mg tablet Condition: Saturday Dose/Route: 0 mg Instruction: 0 tablets Condition: Saturday Dose/Route: 2.5 mg Instruction: 1 x 2.5 mg tablet Condition: Dose/Route: 0 mg Instruction: 0 tablets Condition: Saturday Dose/Route: 2.5 mg Instruction: 1 x 2.5 mg tablet Condition: Saturday Dose/Route: Hold Instruction: No doses Protocol Text: Adjustment Start Date: Saturday03/12/23 INR Value: 2.1 INR Date: 03/11/23 Recheck Date: 04/11/23 finasteride 5 mg tablet 5 mg PO DAILY Qty: 90 3RF (DME) pen needle, diabetic [Comfort EZ Pen [place]] 33 gauge x 3/16 needle See Rx Instructions .ROUTE .MEDSUPPLY Qty: 100 3RF Rx Instructions: inject once/day multivitamin [Daily Multiple] 1 EACH tablet 1 ea PO DAILY (DME) blood-glucose meter [OneTouch Ultra2 Meter] 1 EACH kit 1 ea Miscellaneous DAILY Qty: 1 omeprazole 20 MG capsule,delayed release(DR/EC) 20 mg PO DAILY (DME) lancets [OneTouch UltraSoft Lancets] misc 1 ea Miscellaneous DAILY Qty: 90 4RF Rx Instructions: test daily before breakfast 5-hydroxytryptophan (5-HTP) [5-HTP] 100 mg capsule 100 mg PO DAILY melatonin 5 mg capsule 5 mg PO HS coenzyme Q10 [Co Q-10] 10 mg capsule 10 mg PO DAILY (DME) OneTouch Ultra Test Strip 1 ea Miscellaneous DAILY Qty: 90 3RF Rx Instructions: test daily before breakfast potassium chloride [Klor-Con M10] 10 mEq tablet,ER particles/crystals 30 meq PO DAILY Qty: 270 0RF Rx Instructions: dose increase 08/30/22 tamsulosin 0.4 mg capsule 0.4 mg PO HS Qty: 90 3RF Jardiance 25 mg tablet 25 mg PO QAM Qty: 90 3RF lidocaine HCl [Glydo] 2 % jelly in applicator 10 ml intra-urethral ONCE Qty: 120 0RF Rx Instructions: as a single dose - one dose per catheter change. lactulose 10 gram packet 10 g PO DAILY PRN (Reason: constipation) Qty: 30 1RF (DME) FreeStyle Shantell 2 Mozier Misc See Rx Instructions .MEDSUPPLY Qty: 1 0RF Rx Instructions: As directed (DME) FreeStyle Shantell 2 Sensor Kit See Rx Instructions .MEDSUPPLY Qty: 1 11RF Rx Instructions: As directed metoprolol succinate [Toprol XL] 100 mg tablet extended release 24 hr 100 mg PO DAILY Qty: 90 3RF pravastatin 40 mg tablet 40 mg PO QPM Qty: 90 3RF torsemide 20 mg tablet 40 mg PO DAILY Qty: 360 3RF acetaminophen [Tylenol] 325 mg Tablet 650 mg PO Q4H PRN PRNQty: 0 0RF docusate sodium [Colace] 100 mg capsule 100 mg PO DAILY metolazone 5 mg tablet 5 mg PO .q Th, Mon PRN (Reason: weight gain 3lbs/day or 7 lbs/week) Medical Decision Making 1015 -- 82-year-old male with a history of morbid obesity, hypertension, hyperlipidemia, GERD, diabetes, atrial fibrillation on Coumadin, obesity hypoventilation syndrome, obstructive sleep apnea, BPH with chronic indwelling Griffin catheter presents for shortness of breath for the past 5 days. EMS reported oxygen saturation 82% room air on arrival now 97% on 4 L. On arrival to the ED, oxygen saturation 99% on 2 L, will continue to titrate down. Patient felt warm to touch, rectal temp 100.6, suspect this was higher as he took 2 tabs of Tylenol 90 minutes ago. He has diminished breath sounds throughout, worse in the bases and worse in the right base. He has a chronic nonpitting lower extremity edema and induration consistent with venous stasis. He has no crackles or new lower extremity edema to suggest acute CHF. He has no chest pain to suggest ACS. He has no tachycardia and is already on anticoagulation so suspicion for PE low earlier. In the setting of fever and shortness of breath, consider pneumonia, bronchitis, COVID, influenza. As he has a chronic indwelling catheter, consider UTI. Will obtain screening labs, chest x-ray, urinalysis, FLUVID, lactate, blood cultures, procalcitonin and give fluid bolus and DuoNeb. 1130 --Labs and imaging reviewed. Hemoglobin 7, on labs per PCP yesterday was 6. Patient states he was notified of his hemoglobin of 6 yesterday and he states he was told to come to the ER today. He has not received any blood transfusion. He denies any known rectal bleeding. White blood cell count 14.81. Lactate 1.2. Creatinine 5.6 which appears his baseline over the past few months. Magnesium 1.7. Troponin 54. BNP 65282, was 63669 today which has been increasing. Procalcitonin 0.8. Urinalysis notes greater than 50 WBCs, large leukocyte esterase, urine culture sent. FLUVID negative. Patient has not yet gone for chest x-ray. 1 unit of PRBC blood transfusion ordered. 1300 --chest x-ray negative for acute disease. Will admit for shortness of breath in the setting of fever for IV antibiotics, possible UTI with history of chronic indwelling catheter, and for symptomatic anemia requiring blood transfusion. Case discussed with Dr. Adames who accepts patient for admission. Medical Records Medical records reviewed: Yes I reviewed the patient's medical records. Imaging Data Radiologic Study: Radiologist's impression: XR CHEST 2V PA ? LATERAL CLINICAL HISTORY:? fever, sob, r/o acute disease TECHNIQUE:? 2D digital imaging was performed of the chest.? Three images were obtained.? PA and lateral views were obtained. COMPARISON:? CR XR CHEST 2V PA ? LATERAL from 11/19/2021 CR XR PORTABLE CHEST AP from 12/31/2022 FINDINGS: MEDIASTINUM: Normal.? HEART: Normal. PULMONARY VASCULATURE: Normal. LUNGS: Clear. ? PLEURAL SPACE: No pleural effusion or pneumothorax. BONE:Within normal limits for the patient's age.? OTHER FINDINGS:Normal.? IMPRESSION: No acute pulmonary findings. Lab Data Lab results reviewed: Yes I reviewed the patient's lab results. Labs: 03/21/23 11:27 Blood Blood Culture - Pending 03/21/23 11:40 Blood Blood Culture - Pending 03/21/23 11:05 Urine - Reflex from Ua Urine Culture - Pending Laboratory Tests Range/Units 03/21/23 03/21/23 03/21/23 10:48 10:48 10:48 WBC (4.4-10.8) 10^3/uL 14.81 H RBC (4.36-5.78) 10^6/uL 2.71 L Hgb (13.5-17.5) g/dL 7.0 L* Hct (40.0-50.0) % 23.4 L MCV (80-95) fL 86 MCH (27.0-33.0) pg 25.8 L MCHC (32.0-36.0) % 29.9 L RDW (11.8-14.1) % 16.9 H Plt Count (130-400) 10^3/uL 289 MPV (8.0-11.0) fL 8.5 Immature Gran % 1.4 Neutrophils % 82.1 Lymphocytes % 8.4 Monocytes % 7.2 Eosinophils % 0.7 Basophils % 0.2 Nucleated RBC % (0.0-0.3) % 0.0 Absolute Neutrophils (1.2-6.7) 10^3/uL 12.16 H Absolute Lymphocytes (1.2-3.4) 10^3/uL 1.24 Absolute Monocytes (0.1-0.8) 10^3/uL 1.07 H Absolute Eosinophils (0.0-0.7) 10^3/uL 0.10 Absolute Basophils (0.0-0.2) 10^3/uL 0.03 RBC Morphology See Below Hypochromasia 2+ PT Cancelled INR Cancelled APTT Cancelled VBG Lactate (0.6-1.4) mmol/L Sodium (136-145) mmol/L 134 L Potassium (3.5-5.1) mmol/L 4.8 Chloride (98-107) mmol/L 104 Carbon Dioxide (21.0-32.0) mmol/L 18.2 L Anion Gap (3-11) mmol/L 11.8 H BUN (7-18) mg/dL 59 H Creatinine (0.70-1.30) mg/dL 5.6 H* Est GFR (CKD-EPI 2020) (mL/min/1.73m2) 9.45 Glucose (74-106) mg/dL 181 H Calcium (8.5-10.1) mg/dL 10.0 Magnesium (1.8-2.4) mg/dL 1.7 L Total Bilirubin (0.2-1.0) mg/dL 0.7 AST (15-37) U/L 26 ALT (16-63) U/L 15 L Alkaline Phosphatase (46-116) U/L 240 H Troponin I (<or=60) ng/L 54 NT-Pro-B Natriuret Pep (<300) pg/mL 83923 H Total Protein (6.4-8.2) g/dL 8.9 H Albumin (3.4-5.0) g/dL 1.9 L Procalcitonin ng/mL Urine Color (Yellow) Urine Clarity (Clear) Urine pH (5-8) Ur Specific [place] (1.005-1.025) Urine Protein (Negative) mg/dL Urine Ketones (Negative) mg/dL Urine Blood (Negative) Urine Nitrite (Negative) Urine Bilirubin (Negative) Urine Urobilinogen (Up to 0.2) mg/dL Ur Leukocyte Esterase (Negative) Urine RBC Urine WBC (0-5) HPF Ur Epithelial Cells Urine Crystals Urine Bacteria Urine Mucus Ur Culture Indicated? Urine Glucose (Negative) mg/dL COVID-19 Source SARS-CoV-2 (PCR) (Negative) Influenza Type A (PCR) (Negative) Influenza Type B (PCR) (Negative) RSV (PCR) (Negative) Patient ABO/Rh Antibody Screen Crossmatch Range/Units 03/21/23 03/21/23 03/21/23 10:48 10:50 11:05 WBC (4.4-10.8) 10^3/uL RBC (4.36-5.78) 10^6/uL Hgb (13.5-17.5) g/dL Hct (40.0-50.0) % MCV (80-95) fL MCH (27.0-33.0) pg MCHC (32.0-36.0) % RDW (11.8-14.1) % Plt Count (130-400) 10^3/uL MPV (8.0-11.0) fL Immature Gran % Neutrophils % Lymphocytes % Monocytes % Eosinophils % Basophils % Nucleated RBC % (0.0-0.3) % Absolute Neutrophils (1.2-6.7) 10^3/uL Absolute Lymphocytes (1.2-3.4) 10^3/uL Absolute Monocytes (0.1-0.8) 10^3/uL Absolute Eosinophils (0.0-0.7) 10^3/uL Absolute Basophils (0.0-0.2) 10^3/uL RBC Morphology Hypochromasia PT INR APTT VBG Lactate (0.6-1.4) mmol/L 1.2 Sodium (136-145) mmol/L Potassium (3.5-5.1) mmol/L Chloride (98-107) mmol/L Carbon Dioxide (21.0-32.0) mmol/L Anion Gap (3-11) mmol/L BUN (7-18) mg/dL Creatinine (0.70-1.30) mg/dL Est GFR (CKD-EPI 2020) (mL/min/1.73m2) Glucose (74-106) mg/dL Calcium (8.5-10.1) mg/dL Magnesium (1.8-2.4) mg/dL Total Bilirubin (0.2-1.0) mg/dL AST (15-37) U/L ALT (16-63) U/L Alkaline Phosphatase (46-116) U/L Troponin I (<or=60) ng/L NT-Pro-B Natriuret Pep (<300) pg/mL Total Protein (6.4-8.2) g/dL Albumin (3.4-5.0) g/dL Procalcitonin ng/mL 0.8 Urine Color (Yellow) Yellow Urine Clarity (Clear) Sl Cloudy Urine pH (5-8) 5.5 Ur Specific [place] (1.005-1.025) 1.020 Urine Protein (Negative) mg/dL 100 H Urine Ketones (Negative) mg/dL Negative Urine Blood (Negative) Large H Urine Nitrite (Negative) Negative Urine Bilirubin (Negative) Negative Urine Urobilinogen (Up to 0.2) mg/dL 0.2 Ur Leukocyte Esterase (Negative) Large H Urine RBC Not Applicable Urine WBC (0-5) HPF >50 H Ur Epithelial Cells Not Applicable Urine Crystals Not Applicable Urine Bacteria Not Applicable Urine Mucus Not Applicable Ur Culture Indicated? Yes Urine Glucose (Negative) mg/dL 250 H COVID-19 Source Nasopharynx SARS-CoV-2 (PCR) (Negative) Negative Influenza Type A (PCR) (Negative) Negative Influenza Type B (PCR) (Negative) Negative RSV (PCR) (Negative) Negative Patient ABO/Rh Antibody Screen Crossmatch Range/Units 03/21/23 03/21/23 11:40 11:52 WBC (4.4-10.8) 10^3/uL RBC (4.36-5.78) 10^6/uL Hgb (13.5-17.5) g/dL Hct (40.0-50.0) % MCV (80-95) fL MCH (27.0-33.0) pg MCHC (32.0-36.0) % RDW (11.8-14.1) % Plt Count (130-400) 10^3/uL MPV (8.0-11.0) fL Immature Gran % Neutrophils % Lymphocytes % Monocytes % Eosinophils % Basophils % Nucleated RBC % (0.0-0.3) % Absolute Neutrophils (1.2-6.7) 10^3/uL Absolute Lymphocytes (1.2-3.4) 10^3/uL Absolute Monocytes (0.1-0.8) 10^3/uL Absolute Eosinophils (0.0-0.7) 10^3/uL Absolute Basophils (0.0-0.2) 10^3/uL RBC Morphology Hypochromasia PT 25.7 H INR 2.5 H APTT 54.1 H VBG Lactate (0.6-1.4) mmol/L Sodium (136-145) mmol/L Potassium (3.5-5.1) mmol/L Chloride (98-107) mmol/L Carbon Dioxide (21.0-32.0) mmol/L Anion Gap (3-11) mmol/L BUN (7-18) mg/dL Creatinine (0.70-1.30) mg/dL Est GFR (CKD-EPI 2020) (mL/min/1.73m2) Glucose (74-106) mg/dL Calcium (8.5-10.1) mg/dL Magnesium (1.8-2.4) mg/dL Total Bilirubin (0.2-1.0) mg/dL AST (15-37) U/L ALT (16-63) U/L Alkaline Phosphatase (46-116) U/L Troponin I (<or=60) ng/L NT-Pro-B Natriuret Pep (<300) pg/mL Total Protein (6.4-8.2) g/dL Albumin (3.4-5.0) g/dL Procalcitonin ng/mL Urine Color (Yellow) Urine Clarity (Clear) Urine pH (5-8) Ur Specific [place] (1.005-1.025) Urine Protein (Negative) mg/dL Urine Ketones (Negative) mg/dL Urine Blood (Negative) Urine Nitrite (Negative) Urine Bilirubin (Negative) Urine Urobilinogen (Up to 0.2) mg/dL Ur Leukocyte Esterase (Negative) Urine RBC Urine WBC (0-5) HPF Ur Epithelial Cells Urine Crystals Urine Bacteria Urine Mucus Ur Culture Indicated? Urine Glucose (Negative) mg/dL COVID-19 Source SARS-CoV-2 (PCR) (Negative) Influenza Type A (PCR) (Negative) Influenza Type B (PCR) (Negative) RSV (PCR) (Negative) Patient ABO/Rh O Negative Antibody Screen NEGATIVE Crossmatch See Detail ECG Data Attestation: I personally reviewed and interpreted this ECG (s) as follows: Interpretation: Rate of 69, atrial fibrillation, no acute ischemic findings. HPI General Mode of arrival: EMS . Date/Time Provider Initiated Documentation: 03/21/23 10:40 . Limitations to Documentation: no limitations . Information obtained by: patient . HPI Narrative: Patient is a an 82-year-old male with a history of morbid obesity, hypertension, hyperlipidemia, diabetes, atrial fibrillation on Coumadin, CHF, obstructive nephropathy, BPH with chronic indwelling urinary catheter presents from home for shortness of breath for the past 5 days. Patient states he is not on home oxygen. EMS reported oxygen saturation 6% on room air on arrival and increased to 97% on 4 L. Patient endorses that he is more short of breath with exertion. He states he was recently treated with diuretics for scrotal edema and states this is improving. He states he was having significant pain in his scrotum mainly with sitting but has gotten better with the diuretics. He states he took 2 tabs of Tylenol 90 minutes ago for my pain . Patient is unable to state where his pain is but states he usually takes it twice a day for aches and pains. Patient was unaware of having a fever. He denies sore throat, new cough, chest pain, abdominal pain, nausea, vomiting, diarrhea. He states his urinary catheter was last changed 3 weeks ago. He states he uses a walker or cane with ambulation. He denies any worsening of his lower extremity edema. Related Data Home Medications Medication Instructions Recorded Confirmed multivitamin (Daily Multiple 1 ea PO DAILY 12/11/16 03/21/23 tablet) blood-glucose meter (Ibottauch ##1 02/12/17 03/21/23 Ultra2 Meter kit) omeprazole 20 mg capsule,delayed 20 mg PO DAILY 04/15/18 03/21/23 release lancets (Ibottauch UltraSoft #90 ea 11/06/18 03/21/23 Lancets) acetaminophen 325 mg tablet 650 mg PO Q4H PRN PRN #0 tabs 04/20/19 03/21/23 (Tylenol) docusate sodium 100 mg capsule 100 mg PO DAILY 10/27/21 03/21/23 (Colace) 5-hydroxytryptophan (5-HTP) 100 mg 100 mg PO DAILY 04/10/22 03/21/23 capsule (5-HTP) coenzyme Q10 10 mg capsule (Co 10 mg PO DAILY 04/10/22 03/21/23 Q-10) melatonin 5 mg capsule 5 mg PO HS 04/10/22 03/21/23 blood sugar diagnostic (Gertrude #90 strips 05/17/22 03/21/23 Ultra Test strips) potassium chloride 10 mEq 30 meq PO DAILY #270 tabs 08/30/22 03/21/23 tablet,extended release(part/cryst) (Klor-Con M) tamsulosin 0.4 mg capsule 0.4 mg PO HS #90 caps 08/31/22 03/21/23 empagliflozin 25 mg tablet 25 mg PO QAM #90 tabs 10/10/22 03/21/23 (Jardiance) lidocaine HCl 2 % mucosal jelly in 10 ml intra-urethral ONCE #120 mL 10/31/22 03/21/23 applicator (Glydo) lactulose 10 gram oral packet 10 g PO DAILY PRN constipation #30 11/05/22 03/21/23 ea finasteride 5 mg tablet 5 mg PO DAILY #90 tabs 12/11/22 03/21/23 pen needle, diabetic 33 gauge x #100 ea 12/11/22 03/21/2301/31 (Comfort EZ Pen [place]) warfarin 2.5 mg tablet 2.5 mg PO DAILY #90 tabs 12/11/22 03/21/23 metolazone 5 mg tablet 5 mg PO .q Th, Mon PRN weight 12/31/22 03/21/23 gain 3lbs/day or 7 lbs/week flash glucose scanning reader #1 ea 01/07/23 03/21/23 (FreeStyle Shantell 2 Mozier) flash glucose sensor (FreeStyle #1 ea 01/07/23 03/21/23 Shantell 2 Sensor kit) metoprolol succinate 100 mg 100 mg PO DAILY #90 tabs 02/05/23 03/21/23 tablet,extended release 24 hr (Toprol XL) pravastatin 40 mg tablet 40 mg PO QPM #90 tabs 02/14/23 03/21/23 insulin aspart U-100 100 unit/mL 30 unit (0.3 mL) subcut AC #45 mL 03/06/23 03/21/23 (3 mL) subcutaneous pen (Novolog FlexPen U-100 Insulin aspart) insulin glargine 100 unit/mL (3 40 unit (0.4 mL) subcut QPM #45 mL 03/06/23 03/21/23 mL) subcutaneous pen (Lantus Solostar U-100 Insulin) torsemide 20 mg tablet 40 mg PO DAILY #360 tabs 03/19/23 03/21/23 Previous Rx's Medication Instructions Recorded lancets (OneTouch UltraSoft #90 ea 11/06/18 Lancets) acetaminophen 325 mg tablet 650 mg PO Q4H PRN PRN #0 tabs 04/20/19 (Tylenol) blood sugar diagnostic (OneTouch #90 strips 05/17/22 Ultra Test strips) potassium chloride 10 mEq 30 meq PO DAILY #270 tabs 08/30/22 tablet,extended release(part/cryst) (Klor-Con M) tamsulosin 0.4 mg capsule 0.4 mg PO HS #90 caps 08/31/22 empagliflozin 25 mg tablet 25 mg PO QAM #90 tabs 10/10/22 (Jardiance) lidocaine HCl 2 % mucosal jelly in 10 ml intra-urethral ONCE #120 mL 10/31/22 applicator (Glydo) lactulose 10 gram oral packet 10 g PO DAILY PRN constipation #30 11/05/22 ea finasteride 5 mg tablet 5 mg PO DAILY #90 tabs 12/11/22 pen needle, diabetic 33 gauge x #100 ea 12/11/2201/31 (Comfort EZ Pen [place]) warfarin 2.5 mg tablet 2.5 mg PO DAILY #90 tabs 12/11/22 flash glucose scanning reader #1 ea 01/07/23 (FreeStyle Shantell 2 Moz[place]) flash glucose sensor (FreeStyle #1 ea 01/07/23 Shantell 2 Sensor kit) metoprolol succinate 100 mg 100 mg PO DAILY #90 tabs 02/05/23 tablet,extended release 24 hr (Toprol XL) pravastatin 40 mg tablet 40 mg PO QPM #90 tabs 02/14/23 insulin aspart U-100 100 unit/mL 30 unit (0.3 mL) subcut AC #45 mL 03/06/23 (3 mL) subcutaneous pen (Novolog FlexPen U-100 Insulin aspart) insulin glargine 100 unit/mL (3 40 unit (0.4 mL) subcut QPM #45 mL 03/06/23 mL) subcutaneous pen (Lantus Solostar U-100 Insulin) torsemide 20 mg tablet 40 mg PO DAILY #360 tabs 03/19/23 Allergies Allergy/AdvReac Type Severity Reaction Status Date / Time No Known Allergies Allergy Verified 03/21/23 10:15 General Stated Complaint: SOB GISSEL: 2 Review of Systems All systems reviewed & are unremarkable except as noted in HPI and below Constitutional Constitutional: Reports as per HPI, Denies chills and Denies fever(s) Eyes Eyes: Denies blurry vision ENT Ears, Nose, Mouth, and Throat: Denies dizziness, Denies sore throat and Denies throat swelling Cardiovascular Cardiovascular: Denies chest pain and Reports dyspnea Respiratory Respiratory: Denies cough and Reports dyspnea Gastrointestinal Gastrointestinal: Denies abdominal pain, Denies diarrhea and Denies vomiting Genitourinary Genitourinary: Denies hematuria and Denies dysuria Musculoskeletal Musculoskeletal: Denies back pain and Denies numbness Integumentary/Breasts Skin/Breast: Denies lesions and Denies rash Neurologic Neurologic: Denies dizziness, Denies localized weakness and Denies numbness Allergic/Immunologic Allergic/Immunologic: Denies throat swelling PFSH All Active Problems (Updated 03/21/23 @ 13:38 by Ophelia Gleason DO) Fever (Acute) Chronic indwelling Griffin catheter (Acute) Symptomatic anemia (Acute) Acute renal failure (Acute) Acute UTI (Acute) Diabetes mellitus (Chronic) Atrial fibrillation (Chronic) on coumadin Chronic kidney disease (Chronic) 2020- borderline stage 4 Venous insufficiency (chronic) (peripheral) (Acute) Nail dystrophy (Acute) COVID-19 (Acute ~08/05/22) Thumb pain (Acute) Right heart failure (Acute) Urinary retention (Acute) 11/2021, ultrasound shows significant pretty and post void residual- minimal response to voiding Kidney stones (Chronic) Longstanding history of multiple stones 11/2021 ultrasound showed multiple stones in kidney, 1 stone possibly in right ureter Anemia (Chronic) Chronic mild anemia, associated with CKD Obstructive sleep apnea (Chronic) cpap Acute on chronic heart failure with preserved ejection fraction (Acute) Hives (Acute) Obesity (Acute 02/11/13) Obstructive nephropathy (Acute) Moderate pulmonary arterial systolic hypertension (Chronic) Chronic anticoagulation (Chronic) Polyp of colon (Chronic) Rosacea (Chronic) Constipation (Chronic) CHF (congestive heart failure) (Chronic) Medical History Atrial fibrillation BPH (benign prostatic hyperplasia) Diabetes mellitus type 2 in obese Essential hypertension, benign GERD (gastroesophageal reflux disease) Hyperlipidemia Nephrolithiasis Obesity hypoventilation syndrome LUCAS on CPAP Palliative care patient Surgical History Cholecystectomy (~1985) Colonoscopy - MAC (~2002) Replacement of total knee joint B/L Tonsillectomy and adenoidectomy Family History Mother Diabetes Heart disease Father Neoplasm STOMACH Brother Neoplasm Brother No problems noted. Daughter No problems noted. Social History Smoking/Tobacco Use Status: Never Second Hand Exposure: No Smoking risk assessment performed?: Yes Alcohol Intake: current Alcohol Intake frequency: holidays/special occasions only Drug use: Never Substance use type: does not use Caregiver/Support person: Yes Household members: spouse Housing: house Communication Needs: Hard of Hearing Do you need help understanding health information?: Often Pets and animals: No Sexually active: No What is your relationship status?: How often do you talk on the phone with friends or family?: decline to answer How often do you get together with friends or relatives?: decline to answer How often do you attend sabianism or mandaen services?: decline to answer Do you belong to any clubs or organized social groups?: decline to answer Panel score (0-1 are the most socially isolated patients): 1 What type of physical activity do you participate in: walking Duration: < 15 minutes/day Frequency: daily Special amor needs: No Do you feel safe at home: Yes Do you feel safe in your relationship?: Yes Exam Const General: cooperative, healthy appearing and no acute distress HENMT Head: normal to inspection Face and sinus: normal facial exam Eyes General: appearance normal, both eyes and all related structures Pupils: PERRL EOM: EOM intact bilaterally Neck Neck: normal visual inspection and No submandibular swelling Lymphatic: no lymphadenopathy noted Chest Chest: normal inspection of the chest and no tenderness Resp Effort & Inspection: normal respiratory effort and not able to speak in complete sentences (3-4 word sentences) Auscultation: diminished lung sounds bilaterally throughout (worse in bases b/l, worse R base) Cardio Rate: regular rate Rhythm: regular rhythm GI Inspection: normal to inspection and obesity Palpation: soft, not firm, not rigid and nontender Auscultation: hypoactive bowel sounds General: other (griffin catheter present) Scrotum: edematous (mild to moderate edema, no distension, induration, fluctuance or erythema) Back/Spine/Pelvis Thoracic/Lumbar Spine: thoracic and lumbar spine normal to inspection Pelvis: no pain with anterior-posterior compression Skin General skin exam: no rashes or lesions noted Neuro General: patient alert, patient awake and patient oriented x3 Cognition: normal cognition Speech: speech normal Motor: muscle tone normal throughout Sensory Exam: no sensory deficits noted Extrem General: normal to inspection and full ROM Other: Nonpitting edema and induration bilateral lower extremities. Some scaling and crusts noted. Purpleish discoloration consistent with venous stasis. Psych Appearance: grossly normal Mental Status: mental status grossly normal Speech and Movement: speech and movement normal Affect: normal affect Course Vital Signs Vital signs: Vital Signs Temperature 99.5 F 03/21/23 10:09 Pulse 69 03/21/23 10:09 Respiratory Rate 23 03/21/23 10:09 Blood Pressure 114/63 03/21/23 10:09 Pulse Oximetry 97 03/21/23 10:09 Temperature 100.6 F H 03/21/23 10:33 Temperature Source Rectal 03/21/23 10:33 Pulse 80 03/21/23 10:33 Respiratory Rate 30 H 03/21/23 10:33 Blood Pressure 119/86 03/21/23 10:33 Blood Pressure Position Supine 03/21/23 10:09 Pulse Oximetry 92 03/21/23 10:33 Oxygen Delivery Method Nasal Cannula 03/21/23 10:33 Oxygen Flow Rate 2 03/21/23 10:33 End Tidal Co2 4 03/21/23 10:09 Pain Level 0 03/21/23 10:09
[2023-03-21] MEDS: Albuterol/Ipratropium 3 ML UPD VIAL UPD (10:59)
[2023-03-21 11:01] LABS: Abs Immature Grans 0.21 10^3/uL (0.0-0.06); Absolute Basophil Count 0.03 10^3/uL (0.0-0.2); Absolute Lymphocyte Count 1.24 10^3/uL (1.2-3.4); Absolute Monocyte Count 1.07 10^3/uL (0.1-0.8); Absolute Neutrophil Count 12.16 10^3/uL (1.2-6.7); Basophils % 0.2; Eosinophils % 0.7; HCT 23.4 % (40.0-50.0); Immature Grans % 1.4; Lactate 1.2 mmol/L (0.6-1.4); Lymphocytes % 8.4; MCH 25.8 pg (27.0-33.0); MCHC 29.9 % (32.0-36.0); MCV 86 fL (80-95); MPV 8.5 fL (8.0-11.0); Monocytes % 7.2; Neutrophils % 82.1; Platelet Count 289 10^3/uL (130-400); RBC 2.71 10^6/uL (4.36-5.78); RDW 16.9 % (11.8-14.1); RDW-SD 53.1 fL; WBC 14.81 10^3/uL (4.4-10.8)
[2023-03-21 11:18] LABS: Bilirubin Negative (Negative); Blood Large (Negative); Clarity Sl Cloudy (Clear); Glucose 250 mg/dL (Negative); Ketones Negative (Negative); Leukocyte Esterase Large (Negative); Nitrite Negative (Negative); Urobilinogen 0.2 mg/dL (Up to 0.2); pH 5.5 (5-8)
[2023-03-21 11:26] LABS: ALT 15 U/L (16-63); AST 26 U/L (15-37); Albumin 1.9 g/dL (3.4-5.0); Alkaline Phosphatase 240 U/L (46-116); Anion Gap 11.8 mmol/L (3-11); BUN 59 mg/dL (7-18); Bilirubin, Total 0.7 mg/dL (0.2-1.0); CO2 18.2 mmol/L (21.0-32.0); Chloride 104 mmol/L (98-107); Estimated GFR 9.45 (mL/min/1.73m2); Glucose 181 mg/dL (74-106); Magnesium 1.7 mg/dL (1.8-2.4); NT-proBNP 11270 pg/mL (<300); Potassium 4.8 mmol/L (3.5-5.1); Sodium 134 mmol/L (136-145); Total Protein 8.9 g/dL (6.4-8.2); Troponin I 54 ng/L (<or=60)
[2023-03-21 11:28] LABS: CREATININE 5.6 mg/dL (0.70-1.30); Diff Comment Diff Reviewed; Hypochromasia 2+
[2023-03-21 11:29] LABS: C & S Indicated? Yes; WBC >50 HPF (0-5)
[2023-03-21 11:42] LABS: Procalcitonin 0.8 ng/mL
[2023-03-21 11:45] LABS: COVID-19 PCR Negative (Negative); Influenza A PCR Negative (Negative); Influenza B PCR Negative (Negative); RSV PCR Negative (Negative)
[2023-03-21 11:47] LABS: Source Nasopharynx
[2023-03-21 12:13] LABS: INR 2.5 (0.9-1.1); PTT Activated 54.1 sec (21.5-31.9); Prothrombin Time 25.7 sec (9.3-11.0)
--- NOTE | 2023-03-21 12:38 | DI.RAD_ITS ---
Exam(s) XR CHEST 2V PA LATERAL EXAM: XR CHEST 2V PA LATERAL CLINICAL HISTORY: fever, sob, r/o acute disease TECHNIQUE: 2D digital imaging was performed of the chest. Three images were obtained. PA and later al views were obtained. COMPARISON: CR XR CHEST 2V PA LATERAL from 11/19/2021 CR XR PORTABLE CHEST AP from 12/31/2022 FINDINGS: MEDIASTINUM: Normal. HEART: Normal. PULMONARY VASCULATURE: Normal. LUNGS: Clear. PLEURAL SPACE: No pleural effusion or pneumothorax. BONE:Within normal limits for the patient's age. OTHER FINDINGS:Normal. IMPRESSION: No acute pulmonary findings. DATA REPOSITORY: RADIATION DOSE DELIVERED:
[2023-03-21] MEDS: cefTRIAXone 2 GM/50 ML BAG IVPB (13:37)
[2023-03-21] MEDS: Lidocaine 2% Jelly 6 ML SYR (15:14)
[2023-03-21 16:44] LABS: Lab Add On Test DONE
[2023-03-21] MEDS: Acetaminophen 325 MG TAB PO (17:07)
[2023-03-21] MEDS: Insulin Aspart 300 UNITS/3 ML PEN 30 UNITS SC (17:07)
[2023-03-21] MEDS: Insulin Aspart 300 UNITS/3 ML PEN SC (17:07)
[2023-03-21 17:39] LABS: Iron 18 ug/dL (65-175); Total Iron Binding Capacity 170 ug/dL (250-450); Transferrin Sat 11 % (20-55)
--- NOTE | 2023-03-21 18:18 | HPE_ITS ---
Date of service: 03/21/23 Time of Service: 18:18 Assessment and Plan Assessment and plan (1) Atrial fibrillation: Status: Chronic Assessment and plan: Controlled rate on metoprolol Cr 100mg daily. On warfarin for AC. Monitor. (2) Chronic kidney disease: Status: Chronic Assessment and plan: Creatinine has been in the upper 4 to mid 5 range. Obstructive nephropathy d/t BPH. Chronic indwelling griffin catheter; new catheter inserted in ED. Diuresing with Torsemide and metolazone. Monitor and increase dose or change to IV. Monitor renal function. (3) Right heart failure: Status: Acute Assessment and plan: Echocardiogram on 01/01/23 was a technically difficult and suboptimal study. EF of 55%. Unable to assess segmental wall motion. I suspect a degree of dietary noncompliance with low Na intake; need to stress this. Will have nutrition consult with him regarding Na intake as well as DM2. (4) Anemia: Status: Chronic Assessment and plan: Etiology unclear but likely combination of anemia of chronic disease (CKD), iron deficiency, volume overload. Will hemoccult stool to evaluate for blood loss. Transfused 1 unit pRBCs Fe level of 18. Venofer 300mg IV infused. Will give dose of Aranesp 300mcg. Monitor. 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 + LUCAS on CPAP. (6) Obstructive nephropathy: Status: Acute Assessment and plan: See CKD Cont tamsulosin. Chronic indwelling griffin cath. (7) Hyperlipidemia: Assessment and plan: Cont pravastatin. (8) Diabetes mellitus type 2 in obese: (9) LUCAS on CPAP: Assessment and plan: Home meds: Jardiance 5mg daily, insulin aspart 30 units SQ AC, Glargine 40 unis QHS. Diabetic diet. Diabetic education. Monitor. History of Present Illness History of Present Illness Chief Complaint: Shortness of breath Narrative: Mr Winkler is an 82 yo male with a PMH of DM2, afib on coumadin, right heart failure, HTN, HLD, obstructive nephropahty/BPH with chronic indwelling griffin catheter. He endorsed 5 days of shortness of breath. EMS called and they reported his RA O2 saturation was 86%. On arrival to the ED on 4L his saturation was 97%. Supplemental O2 decreased to 2L then off during the course of his ED evaluation. He recently was started on torsemide for scrotal edema with some improvement. He denied cough/sputum, fever/chills, CP, palpitations. Last urinary catheter change was 3 weeks prior to arrival. Of note, lab the previous day showed a hgb of 6.1. In the ED it was 7. He stated he doesn't really know if he has had melena or hematochezia because he doesn't observe his stool. No abd pain, N/V. WBC count 14.81. Creatinine 5.6 (similar to values recently and at recent admission in December). Troponin negative. BNP 47988. Procalcitonin 0.8. Fluvid neg. UA with WBCs, large leuk esterase; sample was from griffin output before griffin replaced. CXR w/o acute process. He was transfused 1 unit pRBCs and given Rocephin and admitted for further evaluation and tx. Review of Systems All systems reviewed & are unremarkable except as noted in HPI and below PFSH All Active Problems Fever (Acute) Chronic indwelling Griffin catheter (Acute) Symptomatic anemia (Acute) Acute renal failure (Acute) Acute UTI (Acute) Diabetes mellitus (Chronic) Atrial fibrillation (Chronic) on coumadin Chronic kidney disease (Chronic) 2020- borderline stage 4 Venous insufficiency (chronic) (peripheral) (Acute) Nail dystrophy (Acute) COVID-19 (Acute ~08/05/22) Thumb pain (Acute) Right heart failure (Acute) Urinary retention (Acute) 11/2021, ultrasound shows significant pretty and post void residual- minimal response to voiding Kidney stones (Chronic) Longstanding history of multiple stones 11/2021 ultrasound showed multiple stones in kidney, 1 stone possibly in right ureter Anemia (Chronic) Chronic mild anemia, associated with CKD Obstructive sleep apnea (Chronic) cpap Acute on chronic heart failure with preserved ejection fraction (Acute) Hives (Acute) Obesity (Acute 02/11/13) Obstructive nephropathy (Acute) Moderate pulmonary arterial systolic hypertension (Chronic) Chronic anticoagulation (Chronic) Polyp of colon (Chronic) Rosacea (Chronic) Constipation (Chronic) CHF (congestive heart failure) (Chronic) Medical History Atrial fibrillation BPH (benign prostatic hyperplasia) Diabetes mellitus type 2 in obese Essential hypertension, benign GERD (gastroesophageal reflux disease) Hyperlipidemia Nephrolithiasis Obesity hypoventilation syndrome LUCAS on CPAP Palliative care patient Surgical History Cholecystectomy (~1985) Colonoscopy - MAC (~2002) Replacement of total knee joint B/L Tonsillectomy and adenoidectomy Family History Mother Diabetes Heart disease Father Neoplasm STOMACH Brother Neoplasm Brother No problems noted. Daughter No problems noted. Social History Smoking/Tobacco Use Status: Never Second Hand Exposure: No Smoking risk assessment performed?: Yes Alcohol Intake: current Alcohol Intake frequency: holidays/special occasions only Drug use: Never Substance use type: does not use Caregiver/Support person: Yes Household members: spouse Housing: house Communication Needs: Hard of Hearing Do you need help understanding health information?: Often Pets and animals: No Sexually active: No What is your relationship status?: How often do you talk on the phone with friends or family?: decline to answer How often do you get together with friends or relatives?: decline to answer How often do you attend samaritan or jehovah's witness services?: decline to answer Do you belong to any clubs or organized social groups?: decline to answer Panel score (0-1 are the most socially isolated patients): 1 What type of physical activity do you participate in: walking Duration: < 15 minutes/day Frequency: daily Special amor needs: No Do you feel safe at home: Yes Do you feel safe in your relationship?: Yes Meds Allergies and Home Medications Allergies Allergy/AdvReac Type Severity Reaction Status Date / Time No Known Allergies Allergy Verified 03/21/23 10:15 Home Medications Medication Instructions Recorded Confirmed Type multivitamin (Daily Multiple 1 ea PO DAILY 12/11/16 03/21/23 History tablet) blood-glucose meter ([employer] ##1 02/12/17 03/21/23 History Ultra2 Meter kit) omeprazole 20 mg capsule,delayed 20 mg PO DAILY 04/15/18 03/21/23 History release lancets ([employer] UltraSoft #90 ea 11/06/18 03/21/23 Rx Lancets) acetaminophen 325 mg tablet 650 mg PO Q4H PRN PRN #0 tabs 04/20/19 03/21/23 Rx (Tylenol) docusate sodium 100 mg capsule 100 mg PO DAILY 10/27/21 03/21/23 History (Colace) 5-hydroxytryptophan (5-HTP) 100 mg 100 mg PO DAILY 04/10/22 03/21/23 History capsule (5-HTP) coenzyme Q10 10 mg capsule (Co 10 mg PO DAILY 04/10/22 03/21/23 History Q-10) melatonin 5 mg capsule 5 mg PO HS 04/10/22 03/21/23 History blood sugar diagnostic (OneTouch #90 strips 05/17/22 03/21/23 Rx Ultra Test strips) potassium chloride 10 mEq 30 meq PO DAILY #270 tabs 08/30/22 03/21/23 Rx tablet,extended release(part/cryst) (Klor-Con M) tamsulosin 0.4 mg capsule 0.4 mg PO HS #90 caps 08/31/22 03/21/23 Rx empagliflozin 25 mg tablet 25 mg PO QAM #90 tabs 10/10/22 03/21/23 Rx (Jardiance) lidocaine HCl 2 % mucosal jelly in 10 ml intra-urethral ONCE #120 mL 10/31/22 03/21/23 Rx applicator (Glydo) lactulose 10 gram oral packet 10 g PO DAILY PRN constipation #30 11/05/22 03/21/23 Rx ea finasteride 5 mg tablet 5 mg PO DAILY #90 tabs 12/11/22 03/21/23 Rx pen needle, diabetic 33 gauge x #100 ea 12/11/22 03/21/23 Rx 3/16 (Comfort EZ Pen [place]) warfarin 2.5 mg tablet 2.5 mg PO DAILY #90 tabs 12/11/22 03/21/23 Rx metolazone 5 mg tablet 5 mg PO .q Th, Mon PRN weight 12/31/22 03/21/23 History gain 3lbs/day or 7 lbs/week flash glucose scanning reader #1 ea 01/07/23 03/21/23 Rx (FreeStyle Shantell 2 Drew) flash glucose sensor (FreeStyle #1 ea 01/07/23 03/21/23 Rx Shantell 2 Sensor kit) metoprolol succinate 100 mg 100 mg PO DAILY #90 tabs 02/05/23 03/21/23 Rx tablet,extended release 24 hr (Toprol XL) pravastatin 40 mg tablet 40 mg PO QPM #90 tabs 02/14/23 03/21/23 Rx insulin aspart U-100 100 unit/mL 30 unit (0.3 mL) subcut AC #45 mL 03/06/23 03/21/23 Rx (3 mL) subcutaneous pen (Novolog FlexPen U-100 Insulin aspart) insulin glargine 100 unit/mL (3 40 unit (0.4 mL) subcut QPM #45 mL 03/06/23 03/21/23 Rx mL) subcutaneous pen (Lantus Solostar U-100 Insulin) torsemide 20 mg tablet 40 mg PO DAILY #360 tabs 03/19/23 03/21/23 Rx Exam Narrative Exam Narrative: Lying supine. On RA only. He does stop to take deep breath during conversation. Const General: cooperative Nutritional Appearance: obese Orientation: alert and oriented x3 Eyes General: appearance normal, both eyes and all related structures Sclera: sclerae normal Neck Neck: other (large girth; difficult to evaluate for JVD) Resp Effort & Inspection: not able to speak in complete sentences Auscultation: clear to auscultation bilaterally and diminished lung sounds Cardio Rate: regular rate Rhythm: abnormal rhythm irregularly irregular GI Inspection: obesity Palpation: soft and nontender Auscultation: normal bowel sounds Skin General skin exam: no rashes or lesions noted and other (brawny skin discoloration below the knees. ) Neuro General: no focal motor deficits Cranial Nerves: facial strength normal Cognition: normal cognition Speech: speech normal Extrem General: edema Laterality: bilateral (tr - 1+. ) Psych Appearance: grossly normal Affect: normal affect Results Labs 03/21/23 10:48 03/21/23 10:48 Labs: Laboratory Results - last 24 hr 03/20/23 03/21/23 03/21/23 16:00 10:48 10:48 WBC 14.81 H RBC 2.71 L Hgb 7.0 L* Hct 23.4 L MCV 86 MCH 25.8 L MCHC 29.9 L RDW 16.9 H Plt Count 289 MPV 8.5 Immature Gran % 1.4 Neutrophils % 82.1 Lymphocytes % 8.4 Monocytes % 7.2 Eosinophils % 0.7 Basophils % 0.2 Nucleated RBC % 0.0 Absolute Neutrophils 12.16 H Absolute Lymphocytes 1.24 Absolute Monocytes 1.07 H Absolute Eosinophils 0.10 Absolute Basophils 0.03 RBC Morphology See Below Hypochromasia 2+ PT INR APTT VBG Lactate Sodium 134 L Potassium 4.8 Chloride 104 Carbon Dioxide 18.2 L Anion Gap 11.8 H BUN 59 H Creatinine 5.6 H* Est GFR (CKD-EPI 2020) 9.45 Glucose 181 H Calcium 10.0 Magnesium 1.7 L Iron 18 L TIBC 170 L Transferrin % Sat 11 L Total Bilirubin 0.7 AST 26 ALT 15 L Alkaline Phosphatase 240 H Troponin I 54 NT-Pro-B Natriuret Pep 32303 H Total Protein 8.9 H Albumin 1.9 L Procalcitonin Urine Color Urine Clarity Urine pH Ur Specific [place] Urine Protein Urine Ketones Urine Blood Urine Nitrite Urine Bilirubin Urine Urobilinogen Ur Leukocyte Esterase Urine RBC Urine WBC Ur Epithelial Cells Urine Crystals Urine Bacteria Urine Mucus Ur Culture Indicated? Urine Glucose COVID-19 Source SARS-CoV-2 (PCR) Influenza Type A (PCR) Influenza Type B (PCR) RSV (PCR) Add-On Test Request Patient ABO/Rh Antibody Screen Crossmatch 03/21/23 03/21/23 03/21/23 10:48 10:48 10:50 WBC RBC Hgb Hct MCV MCH MCHC RDW Plt Count MPV Immature Gran % Neutrophils % Lymphocytes % Monocytes % Eosinophils % Basophils % Nucleated RBC % Absolute Neutrophils Absolute Lymphocytes Absolute Monocytes Absolute Eosinophils Absolute Basophils RBC Morphology Hypochromasia PT Cancelled INR Cancelled APTT Cancelled VBG Lactate 1.2 Sodium Potassium Chloride Carbon Dioxide Anion Gap BUN Creatinine Est GFR (CKD-EPI 2020) Glucose Calcium Magnesium Iron TIBC Transferrin % Sat Total Bilirubin AST ALT Alkaline Phosphatase Troponin I NT-Pro-B Natriuret Pep Total Protein Albumin Procalcitonin 0.8 Urine Color Urine Clarity Urine pH Ur Specific [place] Urine Protein Urine Ketones Urine Blood Urine Nitrite Urine Bilirubin Urine Urobilinogen Ur Leukocyte Esterase Urine RBC Urine WBC Ur Epithelial Cells Urine Crystals Urine Bacteria Urine Mucus Ur Culture Indicated? Urine Glucose COVID-19 Source Nasopharynx SARS-CoV-2 (PCR) Negative Influenza Type A (PCR) Negative Influenza Type B (PCR) Negative RSV (PCR) Negative Add-On Test Request Patient ABO/Rh Antibody Screen Crossmatch 03/21/23 03/21/23 03/21/23 11:05 11:40 11:52 WBC RBC Hgb Hct MCV MCH MCHC RDW Plt Count MPV Immature Gran % Neutrophils % Lymphocytes % Monocytes % Eosinophils % Basophils % Nucleated RBC % Absolute Neutrophils Absolute Lymphocytes Absolute Monocytes Absolute Eosinophils Absolute Basophils RBC Morphology Hypochromasia PT 25.7 H INR 2.5 H APTT 54.1 H VBG Lactate Sodium Potassium Chloride Carbon Dioxide Anion Gap BUN Creatinine Est GFR (CKD-EPI 2020) Glucose Calcium Magnesium Iron TIBC Transferrin % Sat Total Bilirubin AST ALT Alkaline Phosphatase Troponin I NT-Pro-B Natriuret Pep Total Protein Albumin Procalcitonin Urine Color Yellow Urine Clarity Sl Cloudy Urine pH 5.5 Ur Specific [place]orest 1.020 Urine Protein 100 H Urine Ketones Negative Urine Blood Large H Urine Nitrite Negative Urine Bilirubin Negative Urine Urobilinogen 0.2 Ur Leukocyte Esterase Large H Urine RBC Not Applicable Urine WBC >50 H Ur Epithelial Cells Not Applicable Urine Crystals Not Applicable Urine Bacteria Not Applicable Urine Mucus Not Applicable Ur Culture Indicated? Yes Urine Glucose 250 H COVID-19 Source SARS-CoV-2 (PCR) Influenza Type A (PCR) Influenza Type B (PCR) RSV (PCR) Add-On Test Request Patient ABO/Rh O Negative Antibody Screen NEGATIVE Crossmatch See Detail 03/21/23 16:42 WBC RBC Hgb Hct MCV MCH MCHC RDW Plt Count MPV Immature Gran % Neutrophils % Lymphocytes % Monocytes % Eosinophils % Basophils % Nucleated RBC % Absolute Neutrophils Absolute Lymphocytes Absolute Monocytes Absolute Eosinophils Absolute Basophils RBC Morphology Hypochromasia PT INR APTT VBG Lactate Sodium Potassium Chloride Carbon Dioxide Anion Gap BUN Creatinine Est GFR (CKD-EPI 2020) Glucose Calcium Magnesium Iron TIBC Transferrin % Sat Total Bilirubin AST ALT Alkaline Phosphatase Troponin I NT-Pro-B Natriuret Pep Total Protein Albumin Procalcitonin Urine Color Urine Clarity Urine pH Ur Specific Demorest Urine Protein Urine Ketones Urine Blood Urine Nitrite Urine Bilirubin Urine Urobilinogen Ur Leukocyte Esterase Urine RBC Urine WBC Ur Epithelial Cells Urine Crystals Urine Bacteria Urine Mucus Ur Culture Indicated? Urine Glucose COVID-19 Source SARS-CoV-2 (PCR) Influenza Type A (PCR) Influenza Type B (PCR) RSV (PCR) Add-On Test Request DONE Patient ABO/Rh Antibody Screen Crossmatch Last Vital Signs Temp 37.7 C H 03/21/23 15:15 Pulse 72 03/21/23 17:43 Resp 24 03/21/23 15:15 BP 143/76 H 03/21/23 15:15 Pulse Ox 96 03/21/23 15:15 Time Spent Time spent with Patient: 40-54 minutes Time was spent: preparing to see the patient(eg.review tests), obtaining and/or reviewing separately otained hiistory, ordering medications,tests, procedures, referring, communicating with other health dialysis patient care technician, indepentently interpreting results and care coordination
[2023-03-21] MEDS: Torsemide 20 MG TAB PO (19:02)
[2023-03-21] MEDS: Pravastatin 40 MG TAB PO (19:46)
[2023-03-21] MEDS: IRON SUCROSE COMPLEX 300 MG in Normal Saline 250 ML 167 MG IVPB (19:47)
[2023-03-21] MEDS: Insulin Glargine 300 UNITS/3 ML PEN 40 UNITS SC (20:00)
[2023-03-21] MEDS: Tamsulosin 0.4 MG CAPCR PO (21:18)
[2023-03-21] MEDS: Melatonin 3 MG TAB 6 MG PO (21:18)
[2023-03-22] VITALS (10 sets, daily range): BP systolic 100–115; BP diastolic 65–74; PULSE 64–89; RESP 20–24; TEMP 36.7–37.9; O2SAT 95–97
[2023-03-22 06:48] LABS: Prothrombin Time 30.4 sec (9.3-11.0)
[2023-03-22 06:49] LABS: Abs Immature Grans 0.26 10^3/uL (0.0-0.06); Absolute Basophil Count 0.03 10^3/uL (0.0-0.2); Absolute Lymphocyte Count 1.18 10^3/uL (1.2-3.4); Basophils % 0.2; Eosinophils % 0.8; HCT 27.4 % (40.0-50.0); HGB 8.2 g/dL (13.5-17.5); Immature Grans % 1.8; Lymphocytes % 8.3; MCH 26.2 pg (27.0-33.0); MCHC 29.9 % (32.0-36.0); MCV 88 fL (80-95); MPV 8.5 fL (8.0-11.0); Monocytes % 10.2; Neutrophils % 78.7; Nucleated RBC 0.2 % (0.0-0.3); Platelet Count 270 10^3/uL (130-400); RBC 3.13 10^6/uL (4.36-5.78); RDW 17.3 % (11.8-14.1); RDW-SD 55.2 fL; WBC 14.16 10^3/uL (4.4-10.8)
[2023-03-22 06:50] LABS: Absolute Eosinophil Count 0.11 10^3/uL (0.0-0.7); Absolute Monocyte Count 1.44 10^3/uL (0.1-0.8); Absolute Neutrophil Count 11.14 10^3/uL (1.2-6.7)
[2023-03-22 07:05] LABS: Anion Gap 13.8 mmol/L (3-11); BUN 54 mg/dL (7-18); CO2 17.2 mmol/L (21.0-32.0); Chloride 105 mmol/L (98-107); Estimated GFR 9.65 (mL/min/1.73m2); Glucose 93 mg/dL (74-106); Magnesium 1.8 mg/dL (1.8-2.4); Potassium 4.5 mmol/L (3.5-5.1); Sodium 136 mmol/L (136-145)
[2023-03-22 07:25] LABS: CREATININE 5.5 mg/dL (0.70-1.30)
[2023-03-22] MEDS: Insulin Aspart 300 UNITS/3 ML PEN 30 UNITS SC (08:36)
[2023-03-22] MEDS: metOLazone 2.5 MG TAB 5 MG PO (08:36)
[2023-03-22] MEDS: Docusate Sodium 100 MG CAP PO (08:36)
[2023-03-22] MEDS: Empaglifozin 25 MG TAB PO (08:37)
[2023-03-22] MEDS: Omeprazole 20 MG CAPCR PO (08:38)
[2023-03-22] MEDS: Torsemide 20 MG TAB 40 MG PO (08:38)
[2023-03-22] MEDS: Potassium Chloride 10 MEQ CAPCR 30 MEQ PO (08:38)
[2023-03-22] MEDS: Finasteride 5 MG TAB PO (08:38)
[2023-03-22] MEDS: Normal Saline Flush 10 ML SYR IVP (08:39)
[2023-03-22] MEDS: Metoprolol CR 100 MG TABCR PO (08:39)
[2023-03-22] MEDS: Doxycycline Hyclate 100 MG CAP PO ×2 (08:56→21:45)
--- NOTE | 2023-03-22 10:57 | PDOC.CMIN ---
- If Service Date Differs Date of service: 03/22/23 Time of Service: 10:57 Care Management Initial Assess REASON FOR HOSPITALIZATION:: Anemia, acute respiratory failure, UTI PAST MEDICAL HISTORY/PAST SURGICAL HISTORY:: All Active Problems . Fever (Acute). Chronic indwelling Knox catheter (Acute). Symptomatic anemia (Acute). Acute renal failure (Acute). Acute UTI (Acute). Diabetes mellitus (Chronic). Atrial fibrillation (Chronic). on coumadin. Chronic kidney disease (Chronic). 2020- borderline stage 4. Venous insufficiency (chronic) (peripheral) (Acute). Nail dystrophy (Acute). COVID-19 (Acute ~08/05/22). Thumb pain (Acute). Right heart failure (Acute). Urinary retention (Acute). 11/2021, ultrasound shows significant pretty and post void residual- minimal response to voiding. Kidney stones (Chronic). Longstanding history of multiple stones. 11/2021 ultrasound showed multiple stones in kidney, 1 stone possibly in right ureter. Anemia (Chronic). Chronic mild anemia, associated with CKD. Obstructive sleep apnea (Chronic). cpap. Acute on chronic heart failure with preserved ejection fraction (Acute). Hives (Acute). Obesity (Acute 02/11/13). Obstructive nephropathy (Acute). Moderate pulmonary arterial systolic hypertension (Chronic). Chronic anticoagulation (Chronic). Polyp of colon (Chronic). Rosacea (Chronic). Constipation (Chronic). CHF (congestive heart failure) (Chronic). Medical History . Atrial fibrillation. BPH (benign prostatic hyperplasia). Diabetes mellitus type 2 in obese. Essential hypertension, benign. GERD (gastroesophageal reflux disease). Hyperlipidemia. Nephrolithiasis. Obesity hypoventilation syndrome. LUCAS on CPAP. Palliative care patient. Surgical History . Cholecystectomy (~1985). Colonoscopy - MAC (~2002). Replacement of total knee joint. B/L. Tonsillectomy and adenoidectomy PREVIOUS FUNCTIONAL STATUS/SOCIAL/FAMILY SUPPORTS:: Sav is and lives in [facility] with his Lashawn. He worked for [employer] and is now retired. Sav drives and is independent in the community and with his ADL's at baseline.They have one daughter who lives about 6 miles from him and is supportive. CURRENT FUNCTIONAL STATUS:: Sav was lying in bed when CM met with him. He is pleasant and engages in conversation, minimally. Per Sav, he wants to discharge home with resumption of [facility] services when medically ready and indicates that he would consider going to SNF for STR as a last resort. ADVANCE DIRECTIVES:: None on file Has patient been provided with info about the portal/API?: Yes Did the patient sign up for the portal?: Yes (Prior to admission) CODE STATUS:: DNR/DNI INSURANCE COVERAGE / FINANCIAL ISSUES:: [employer] CURRENT HOME/COMMUNITY SERVICES/EQUIPMENT:: [employer] PRINTING PHYSICIAN:: Dr. Dominguez POTENTIAL DISCHARGE NEEDS:: Resumption of [facility] RN (add PT/OT/ADOLESCENT MEDICINE SPECIALIST, if needed) vs. SNF for STR. Evaluations for further needs PATIENT/FAMILY EDUCATION NEEDS:: Review discharge instructions, limitations, medications and plan to follow up with community providers. Discuss ask me three and goals of self care. TRANSPORTATION:: Via private vehicle with family. PLAN:: Sav is being closely monitored and treated. Anticipate, He will discharge home with resumption of [facility] RN (add PT/OT/ADOLESCENT MEDICINE SPECIALIST, if indicated) vs. SNF for STR, when medically ready per provider. PT consult is ordered, awaiting discharge recommendations .CM will continue to follow.
[2023-03-22] MEDS: Darbepoetin 40 MCG SYR SC (13:10)
--- NOTE | 2023-03-22 14:47 | PGE_ITS ---
Date of Service Date of service: 03/22/23 Time of Service: 14:47 Assessment and Plan Assessment and plan (1) Atrial fibrillation: Status: Chronic Assessment and plan: Controlled rate on metoprolol Cr 100mg daily. On warfarin for AC. Monitor. (2) Chronic kidney disease: Status: Chronic Assessment and plan: Creatinine has been in the upper 4 to mid 5 range. Obstructive nephropathy d/t BPH. Chronic indwelling griffin catheter; new catheter inserted in ED. Diuresing with Torsemide and metolazone. Has a negative fluid balance currently. Monitor renal function. (3) Right heart failure: Status: Acute Assessment and plan: Echocardiogram on 01/01/23 was a technically difficult and suboptimal study. EF of 55%. Unable to assess segmental wall motion. I suspect a degree of dietary noncompliance with low Na intake; need to stress this. Will have nutrition consult with him regarding Na intake as well as DM2. (4) Anemia: Status: Chronic Assessment and plan: Etiology unclear but likely combination of anemia of chronic disease (CKD), iron deficiency, volume overload. Will hemoccult stool to evaluate for blood loss. Transfused 1 unit pRBCs Fe level of 18. Venofer 300mg IV infused. Gave a dose of Aranesp 300mcg. Monitor. 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 + LUCAS on CPAP. (6) Obstructive nephropathy: Status: Acute Assessment and plan: See CKD Cont tamsulosin. Chronic indwelling griffin cath. (7) Hyperlipidemia: Assessment and plan: Cont pravastatin. (8) Diabetes mellitus type 2 in obese: Assessment and plan: Cont Jardiance, Lantus and aspart insulin AC. Also SS insulin correction dosing. Diabetic diet. (9) LUCAS on CPAP: Assessment and plan: Home meds: Jardiance 5mg daily, insulin aspart 30 units SQ AC, Glargine 40 unis QHS. Diabetic diet. Diabetic education. Monitor. Subjective Subjective Patient reports: feels better, tolerating a regular diet and shortness of breath (He endorses improvement. ); denies nausea or vomiting Exam Narrative Exam Narrative: Lying supine. On RA only. Const General: cooperative Nutritional Appearance: obese Orientation: alert and oriented x3 Eyes General: appearance normal, both eyes and all related structures Sclera: sclerae normal Neck Neck: other (large girth; difficult to evaluate for JVD) Resp Effort & Inspection: not able to speak in complete sentences Auscultation: clear to auscultation bilaterally and diminished lung sounds Cardio Rate: regular rate Rhythm: abnormal rhythm irregularly irregular GI Inspection: obesity Palpation: soft and nontender Auscultation: normal bowel sounds Skin General skin exam: no rashes or lesions noted and other (brawny skin discoloration below the knees. ) Neuro General: no focal motor deficits Cranial Nerves: facial strength normal Cognition: normal cognition Speech: speech normal Extrem General: edema Laterality: bilateral (tr - 1+. ) Psych Appearance: grossly normal Affect: normal affect Objective Last Vital Signs Temp 37.9 C H 03/22/23 11:18 Pulse 83 03/22/23 11:18 Resp 24 03/22/23 11:18 BP 113/70 03/22/23 11:18 Pulse Ox 97 03/22/23 11:18 Laboratory Results - last 24 hr 03/20/23 03/21/23 03/22/23 16:00 16:42 05:40 WBC RBC Hgb Hct MCV MCH MCHC RDW Plt Count MPV Immature Gran % Neutrophils % Lymphocytes % Monocytes % Eosinophils % Basophils % Nucleated RBC % Absolute Neutrophils Absolute Lymphocytes Absolute Monocytes Absolute Eosinophils Absolute Basophils PT INR Sodium 136 Potassium 4.5 Chloride 105 Carbon Dioxide 17.2 L Anion Gap 13.8 H BUN 54 H Creatinine 5.5 H* Est GFR (CKD-EPI 2020) 9.65 Glucose 93 Calcium 10.0 Magnesium 1.8 Iron 18 L TIBC 170 L Transferrin % Sat 11 L Add-On Test Request DONE 03/22/23 03/22/23 05:40 05:40 WBC 14.16 H RBC 3.13 L Hgb 8.2 L Hct 27.4 L MCV 88 MCH 26.2 L MCHC 29.9 L RDW 17.3 H Plt Count 270 MPV 8.5 Immature Gran % 1.8 Neutrophils % 78.7 Lymphocytes % 8.3 Monocytes % 10.2 Eosinophils % 0.8 Basophils % 0.2 Nucleated RBC % 0.2 Absolute Neutrophils 11.14 H Absolute Lymphocytes 1.18 L Absolute Monocytes 1.44 H Absolute Eosinophils 0.11 Absolute Basophils 0.03 PT 30.4 H INR 3.0 H Sodium Potassium Chloride Carbon Dioxide Anion Gap BUN Creatinine Est GFR (CKD-EPI 2020) Glucose Calcium Magnesium Iron TIBC Transferrin % Sat Add-On Test Request Time Spent with Patient Time Spent with Patient: 25-34 minutes Time was spent: preparing to see the patient(eg.review tests), ordering medications,tests, procedures, referring, communicating with other health rn progressive care unit and indepentently interpreting results
[2023-03-22] MEDS: Acetaminophen 325 MG TAB PO (15:27)
[2023-03-22] MEDS: cefTRIAXone 2 GM/50 ML BAG IVPB (15:28)
--- NOTE | 2023-03-22 15:36 | PT.INNT ---
Date of service: 03/22/23 Time of Service: 15:36 PT Notes Visit Reasons: Anemia, Acute Respiratory Failure, UTI Patient is running a fever per Nurse Alix who was administering pills for patient when PT came in. Will hold off on PT evaluation and re-approach patient tomorrow morning.
[2023-03-22] MEDS: Tamsulosin 0.4 MG CAPCR PO (21:45)
[2023-03-22] MEDS: Melatonin 3 MG TAB 6 MG PO (21:45)
[2023-03-22] MEDS: Pravastatin 40 MG TAB PO (21:46)
[2023-03-22] MEDS: Insulin Glargine 300 UNITS/3 ML PEN 40 UNITS SC (21:54)
[2023-03-23] VITALS (7 sets, daily range): BP systolic 99–129; BP diastolic 64–74; PULSE 65–83; RESP 18–22; TEMP 36.4–37.2; O2SAT 95–97
[2023-03-23 06:42] LABS: Abs Immature Grans 0.36 10^3/uL (0.0-0.06); Absolute Eosinophil Count 0.17 10^3/uL (0.0-0.7); Absolute Lymphocyte Count 1.42 10^3/uL (1.2-3.4); Absolute Monocyte Count 1.11 10^3/uL (0.1-0.8); Absolute Neutrophil Count 10.15 10^3/uL (1.2-6.7); Basophils % 0.2; Eosinophils % 1.3; HCT 24.9 % (40.0-50.0); HGB 7.4 g/dL (13.5-17.5); Immature Grans % 2.7; Lymphocytes % 10.7; MCH 25.8 pg (27.0-33.0); MCHC 29.7 % (32.0-36.0); MCV 87 fL (80-95); MPV 8.6 fL (8.0-11.0); Monocytes % 8.4; Neutrophils % 76.7; Platelet Count 287 10^3/uL (130-400); RBC 2.87 10^6/uL (4.36-5.78); RDW 17.4 % (11.8-14.1); RDW-SD 54.9 fL; WBC 13.23 10^3/uL (4.4-10.8)
[2023-03-23 06:50] LABS: INR 3.3 (0.9-1.1); Prothrombin Time 33.1 sec (9.3-11.0)
[2023-03-23 06:56] LABS: Absolute Basophil Count 0.03 10^3/uL (0.0-0.2)
[2023-03-23] MEDS: Senna TAB 2 TAB PO (07:37)
[2023-03-23] MEDS: Omeprazole 20 MG CAPCR PO (07:37)
[2023-03-23] MEDS: Potassium Chloride 10 MEQ CAPCR 30 MEQ PO (07:37)
[2023-03-23] MEDS: Empaglifozin 10 MG TAB PO (07:37)
[2023-03-23] MEDS: Polyethylene Glycol 3350 17 GM PACKET PO (07:37)
[2023-03-23] MEDS: Metoprolol CR 100 MG TABCR PO (07:37)
[2023-03-23] MEDS: Finasteride 5 MG TAB PO (07:38)
[2023-03-23] MEDS: Docusate Sodium 100 MG CAP PO (07:38)
[2023-03-23] MEDS: Insulin Aspart 300 UNITS/3 ML PEN SC ×2 (07:38→12:25)
[2023-03-23] MEDS: Torsemide 20 MG TAB 40 MG PO (07:38)
[2023-03-23] MEDS: metOLazone 2.5 MG TAB 5 MG PO (07:43)
[2023-03-23 08:07] LABS: ALT 14 U/L (16-63); AST 25 U/L (15-37); Albumin 1.7 g/dL (3.4-5.0); Alkaline Phosphatase 257 U/L (46-116); BUN 62 mg/dL (7-18); Bilirubin, Total 0.4 mg/dL (0.2-1.0); Chloride 103 mmol/L (98-107); Estimated GFR 9.06 (mL/min/1.73m2); Glucose 151 mg/dL (74-106); Potassium 4.6 mmol/L (3.5-5.1); Sodium 135 mmol/L (136-145); Total Protein 8.5 g/dL (6.4-8.2)
[2023-03-23 08:18] LABS: CREATININE 5.8 mg/dL (0.70-1.30)
--- NOTE | 2023-03-23 11:20 | IN_ITS ---
Date of service: 03/23/23 Time of Service: 10:49 PT Notes Visit Reasons: Anemia, Acute Respiratory Failure, UTI Inpatient Physical Therapy Evaluation Date: 03/23/2023 Referring Doctor:? Mor Adames,? PT Orders: PT CONSULT: Eval/Treat Precautions: Fall. Standard.? Activity as tolerated. Fearful of falling. Patient Profile/Admitting Diagnosis:? Patient is a 82-year-old male who presented to the ED on 03/21/2023 due to 5 days worth of shortness of breath and is admitted admitted for the management of atrial fibrillation, chronic kidney disease, right-sided heart failure, anemia, moderate pulmonary arterial systolic hypertension, obstructive neuropathy, hyperlipidemia, type II DM, and LUCAS. PMHX: All Active Problems? Fever (Acute) Chronic indwelling Knox catheter (Acute) Symptomatic anemia (Acute) Acute renal failure (Acute) Acute UTI (Acute) Diabetes mellitus (Chronic) Atrial fibrillation (Chronic) on coumadin Chronic kidney disease (Chronic) 2020- borderline stage 4 Venous insufficiency (chronic) (peripheral) (Acute) Nail dystrophy (Acute) COVID-19 (Acute ~08/05/22) Thumb pain (Acute) Right heart failure (Acute) Urinary retention (Acute) 11/2021, ultrasound shows significant pretty and post void residual- minimal response to voiding Kidney stones (Chronic) Longstanding history of multiple stones 11/2021 ultrasound showed multiple stones in kidney, 1 stone possibly in right ureter Anemia (Chronic) Chronic mild anemia, associated with CKD Obstructive sleep apnea (Chronic) cpapAcute on chronic heart failure with preserved ejection fraction (Acute) Hives (Acute) Obesity (Acute 02/11/13) Obstructive nephropathy (Acute) Moderate pulmonary arterial systolic hypertension (Chronic) Chronic anticoagulation (Chronic) Polyp of colon (Chronic) Rosacea (Chronic) Constipation (Chronic) CHF (congestive heart failure) (Chronic) Medical History? Atrial fibrillation BPH (benign prostatic hyperplasia) Diabetes mellitus type 2 in obese Essential hypertension, benign GERD (gastroesophageal reflux disease) Hyperlipidemia Nephrolithiasis Obesity hypoventilation syndrome LUCAS on CPAP Palliative care patient Surgical History? Cholecystectomy (~1985) Colonoscopy - MAC (~2002) Replacement of total knee joint B/L Tonsillectomy and adenoidectomy Social History/Home Situation: Patient lives with Lashawn in a 1 floor house in [facility] with 2 steps to enter, no rails.?? 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 They have one supportive daughter who lives locally.? states that she uses a device that she holds up to him so that he can pull on it to sit up in bed.? She adds that he has walked for over a week now due to weakness,? pain in B knees and fearfulness of falling.? Equipment Owned/DME: Bed that has changeable angles at the head and the knee but is not able to move up nor down Motorized wheelchair FWW SPC Subjective:? Highly anxious about getting out of bed but was agreeable to sitting up with slow movement and use of Pull-Me-Up handle device and with the help of his . Needed to rest after this activity as he was fatigued. Refused to do anything more due to generalized pain and fatigue. Objective:? General Observation: Supine in bed.? IV access through R brachium.? Breathing appeared mildly labored even at rest,? worse with exertion. Mental Status: Alert and oriented x 4 Pain: Generalized pain at 7-8/10 ROM: Right Upper Extremity: ? Shoulder Flexion about 90 degrees. Shoulder abduction about 45 degrees. Elbow flexion WFL. Wrist flexion WFL. Functional opening and closing of hand WFL. Left Upper Extremity:? Shoulder Flexion about 90 degrees. Shoulder abduction about 45 degrees. Elbow flexion WFL. Wrist flexion WFL. Functional opening and closing of hand WFL. Right Lower Extremity: Hip flexion up to 90 degrees. Hip abduction WFL. Knee flexion 0-100. Ankle dorsiflexion WFL. Ankle plantarflexion WFL. Left Lower Extremity: Hip flexion WFL. Hip abduction WFL. Knee flexion WFL. Ankle dorsiflexion WFL. Ankle plantarflexion WFL. Strength: Right Upper Extremity: Shoulder flexors 3-/5. Shoulder abductors 3-/5. Elbow flexors 4-/5. Elbow extensors 4-/5. Rubber Boots And Shoes Repairer strong. Left Upper Extremity: Shoulder flexors 3-/5. Shoulder abductors 3-/5. Elbow flexors 4-/5. Elbow extensors 4-/5. Rubber Boots And Shoes Repairer strong. Right Lower Extremity: Hip flexors 3-/5. Hip abductors 4/5. Knee flexors 3-/5. Knee extensors 4-/5. Ankle dorsiflexors 4-/5. Ankle plantarflexors 4-/5. Left Lower Extremity:Hip flexors 3-/5. Hip abductors 4/5. Knee flexors3-/5. Knee extensors 4-/5. Ankle dorsiflexors 4-/5. Ankle plantarflexors 4-/5. Bed Mobility/Transfers: Supine to sit moderate assist of 2 with HOB at 60 degrees Sit to stand minimal assist of 2 Stand to sit minimal assist of 2 Bed to bedside commode minimal assist of 2 Bedside commode to bed commode minimal assist of 2 Gait:? Small cautious steps from bedside commode to bed about 4-5x using FWW with minimal assist of 2. Balance:? Static Sitting: Good Dynamic Sitting: Good Static Standing: Fair Dynamic Standing: Poor Special Tests: Mobility Limitations Standardized Measure [facility] 6 clicks Basic Mobility Inpatient Short Form: Raw Score: 12 ? CMS Score: 69% deficit? Informed Consent/Education:? Patient instructed in purpose of PT consult and plan of care.? Patient was educated about about treatment frequency in order to maximize functional mobility performance while reducing onset of fatigue.? Assessment:? Patient is a 82-year-old male who presented to the ED on 03/21/2023 due to 5 days worth of shortness of breath and is admitted admitted for the management of atrial fibrillation, chronic kidney disease, right-sided heart failure, anemia, moderate pulmonary arterial systolic hypertension, obstructive neuropathy, hyperlipidemia, type II DM, and LUCAS. Patient presents with clinical signs and symptoms consistent with current/admitting diagnoses that have resulted to mobility limitations, gait instability, generalized weakness, and impairment of motor control as demonstrated by the following impairment level findings: 1.? Decreased strength to B LE major muscle groups 2.? Impaired sitting/standing balance 3.? Impaired activity tolerance/endurance 4.? Obesity 5.? Shortness of breath 6.? fearfulness of falling 7.? Generalized pain Impairments are contributing to the following functional limitations: 1.? Dependent bed mobility skills 2.? Increased dependence with transfers 3.? Inability to safely ambulate without assistive device and physical assistance 4.? Increase completion time for mobility ADL performance 5.? Increased fall risk 6.? Inability to negotiate steps alone safely 7.? AMPAC score of 69% deficit Patient is assessed as a 17265 moderate complexity based on the following: History: Apparent functional mobility decline and reduced activity tolerance as a result of current medical diagnoses of urinary tract renal insufficiency Examination: Underlying impairments and functional limitations as noted above Presentation:Evolving Decision Makin moderate complexity Goals: Goals X1 week 1. Supine-Sit contact guard assist 2. Sit-Supine contact guard assist 3. Sit-Stand contact guard assist 4. Stand-Sit contact guard assist with FWW 5. Bed-Chair contact guard assist with FWW 6. Chair-Bed contact guard assist with FWW 7. Contact guard assist gait on level surface with use of FWW for at least 30 feet without report of pain nor dyspnea 8. Contact guard assist stair negotiation while holding onto bilateral rails for at least 3 steps without report of pain nor dyspnea PLAN OF CARE/TREATMENT PLAN: 1-2x/day, 7 days/week x 1 week. Plan of care has been reviewed with the WEATHERSTRIP MACHINE OPERATOR providing the service under Physical Therapy direction. Pre-medicate for pain. Improve standing balance and tolerance. Progress ambulation distance as tolerated with wheelchair follow as needed. Initiate seated level strengthening exercises to B UE/LE. Facilitate balance skills to reduce fall risk. Deep breathing exercises in between activities to reduce fatigue. DISCHARGE RECOMMENDATIONS: [] ? Home with no services [] [] ? Home with services [specify] [] ? Home with outpatient PT [] [X] ? SNF for continued rehabilitation.? Patient will benefit from group home facility placement for continued skilled physical therapy services in order to progress mobility level, strength, and balance in preparation for a safe discharge to home. [] ? Care Home Care [] [] ? SNF versus LTC based on ability to participate and progress [] TREATMENT CODE/TIME: 97418 x 20 minutes,? 91724 x 21 minutes beginning at 10:49 and 11:40 AM. Thank you for the opportunity to participate in the care of this patient. Madhavi Victoria PT, DPT, CLT [facility] [place], [place]
[2023-03-23 12:30] LABS: HGB 8.3 g/dL (13.5-17.5)
--- NOTE | 2023-03-23 14:09 | PGE_ITS ---
Date of Service Date of service: 03/23/23 Time of Service: 14:09 Assessment and Plan Assessment and plan (1) Atrial fibrillation: Status: Chronic Assessment and plan: Controlled rate on metoprolol Cr 100mg daily. On warfarin for AC. Monitor. (2) Chronic kidney disease: Status: Chronic Assessment and plan: Creatinine has been in the upper 4 to mid 5 range. Obstructive nephropathy d/t BPH. Chronic indwelling griffin catheter; new catheter inserted in ED. Diuresing with Torsemide and metolazone. but will hold second dose of torsemide today. Monitor renal function. (3) Right heart failure: Status: Acute Assessment and plan: Echocardiogram on 01/01/23 was a technically difficult and suboptimal study. EF of 55%. Unable to assess segmental wall motion. I suspect a degree of dietary noncompliance with low Na intake; need to stress this. Will have nutrition consult with him regarding Na intake as well as DM2. (4) Anemia: Status: Chronic Assessment and plan: Etiology unclear but likely combination of anemia of chronic disease (CKD), iron deficiency, volume overload. Will hemoccult stool to evaluate for blood loss. Transfused 1 unit pRBCs Fe level of 18. Venofer 300mg IV infused. Gave a dose of Aranesp 300mcg. Hgb 8.3. Monitor. 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 + LUCAS on CPAP. (6) Obstructive nephropathy: Status: Acute Assessment and plan: See CKD Cont tamsulosin. Chronic indwelling griffin cath. (7) Hyperlipidemia: Assessment and plan: Cont pravastatin. (8) Diabetes mellitus type 2 in obese: Assessment and plan: Cont Jardiance, Lantus and aspart insulin AC. Also SS insulin correction dosing. Diabetic diet. (9) LUCAS on CPAP: Assessment and plan: Home meds: Jardiance 5mg daily, insulin aspart 30 units SQ AC, Glargine 40 unis QHS. Diabetic diet. Diabetic education. Monitor. Subjective Subjective Patient reports: no new complaints, feels better, tolerating a regular diet and afebrile Interval history since last seen: Notes improvement in pedal edema Mildly less SOA with ambulation in the room. Exam Narrative Exam Narrative: Sitting on edge of bed. On RA only. Const General: cooperative Nutritional Appearance: obese Orientation: alert and oriented x3 Eyes General: appearance normal, both eyes and all related structures Sclera: sclerae normal Neck Neck: other (large girth; difficult to evaluate for JVD) Resp Effort & Inspection: able to speak in complete sentences Auscultation: clear to auscultation bilaterally and diminished lung sounds Cardio Rate: regular rate Rhythm: abnormal rhythm irregularly irregular GI Inspection: obesity Palpation: soft and nontender Auscultation: normal bowel sounds Skin General skin exam: no rashes or lesions noted and other (brawny skin d iscoloration below the knees. ) Neuro General: no focal motor deficits Cranial Nerves: facial strength normal Cognition: normal cognition Speech: speech normal Extrem General: edema Laterality: bilateral (tr ) Psych Appearance: grossly normal Affect: normal affect Objective Last Vital Signs Temp 37.2 C 03/23/23 07:43 Pulse 83 03/23/23 08:11 Resp 18 03/23/23 07:43 BP 116/67 03/23/23 07:43 Pulse Ox 96 03/23/23 07:43 Laboratory Results - last 24 hr 03/23/23 03/23/23 03/23/23 06:00 06:00 06:00 WBC 13.23 H RBC 2.87 L Hgb 7.4 L Hct 24.9 L MCV 87 MCH 25.8 L MCHC 29.7 L RDW 17.4 H Plt Count 287 MPV 8.6 Immature Gran % 2.7 Neutrophils % 76.7 Lymphocytes % 10.7 Monocytes % 8.4 Eosinophils % 1.3 Basophils % 0.2 Nucleated RBC % 0.0 Absolute Neutrophils 10.15 H Absolute Lymphocytes 1.42 Absolute Monocytes 1.11 H Absolute Eosinophils 0.17 Absolute Basophils 0.03 PT 33.1 H INR 3.3 H Sodium 135 L Potassium 4.6 Chloride 103 Carbon Dioxide 18.0 L Anion Gap 14.0 H BUN 62 H Creatinine 5.8 H* Est GFR (CKD-EPI 2020) 9.06 Glucose 151 H Calcium 10.0 Total Bilirubin 0.4 AST 25 ALT 14 L Alkaline Phosphatase 257 H Total Protein 8.5 H Albumin 1.7 L 03/23/23 12:21 WBC RBC Hgb 8.3 L Hct 28.0 L MCV MCH MCHC RDW Plt Count MPV Immature Gran % Neutrophils % Lymphocytes % Monocytes % Eosinophils % Basophils % Nucleated RBC % Absolute Neutrophils Absolute Lymphocytes Absolute Monocytes Absolute Eosinophils Absolute Basophils PT INR Sodium Potassium Chloride Carbon Dioxide Anion Gap BUN Creatinine Est GFR (CKD-EPI 2020) Glucose Calcium Total Bilirubin AST ALT Alkaline Phosphatase Total Protein Albumin Time Spent with Patient Time Spent with Patient: 25-34 minutes Time was spent: preparing to see the patient(eg.review tests), ordering medications,tests, procedures, referring, communicating with other health skin care therapist and indepentently interpreting results
[2023-03-23] MEDS: Normal Saline Flush 10 ML SYR IVP (16:09)
[2023-03-23] MEDS: cefTRIAXone 2 GM/50 ML BAG IVPB (16:09)
[2023-03-23] MEDS: Acetaminophen 325 MG TAB PO (21:21)
[2023-03-23] MEDS: Insulin Glargine 300 UNITS/3 ML PEN 40 UNITS SC (21:22)
[2023-03-23] MEDS: Pravastatin 40 MG TAB PO (21:23)
[2023-03-23] MEDS: Tamsulosin 0.4 MG CAPCR PO (21:23)
[2023-03-23] MEDS: Melatonin 3 MG TAB 6 MG PO (21:23)
[2023-03-24 06:32] LABS: INR 3.1 (0.9-1.1)
[2023-03-24 06:52] LABS: Abs Immature Grans 0.42 10^3/uL (0.0-0.06); Absolute Basophil Count 0.03 10^3/uL (0.0-0.2); Absolute Eosinophil Count 0.18 10^3/uL (0.0-0.7); Absolute Lymphocyte Count 1.55 10^3/uL (1.2-3.4); Absolute Monocyte Count 1.01 10^3/uL (0.1-0.8); Absolute Neutrophil Count 7.55 10^3/uL (1.2-6.7); Basophils % 0.3; Eosinophils % 1.7; HCT 24.5 % (40.0-50.0); HGB 7.6 g/dL (13.5-17.5); Immature Grans % 3.9; Lymphocytes % 14.4; MCH 26.7 pg (27.0-33.0); MCV 86 fL (80-95); MPV 8.5 fL (8.0-11.0); Monocytes % 9.4; Neutrophils % 70.3; Platelet Count 296 10^3/uL (130-400); RBC 2.85 10^6/uL (4.36-5.78); RDW 17.3 % (11.8-14.1); RDW-SD 53.4 fL; WBC 10.74 10^3/uL (4.4-10.8)
[2023-03-24 07:05] LABS: ALT 15 U/L (16-63); AST 31 U/L (15-37); Albumin 1.6 g/dL (3.4-5.0); Alkaline Phosphatase 265 U/L (46-116); Anion Gap 13.6 mmol/L (3-11); BUN 72 mg/dL (7-18); Bilirubin, Total 0.3 mg/dL (0.2-1.0); CO2 19.4 mmol/L (21.0-32.0); Calcium 10.2 mg/dL (8.5-10.1); Chloride 102 mmol/L (98-107); Estimated GFR 9.45 (mL/min/1.73m2); Glucose 168 mg/dL (74-106); Potassium 3.9 mmol/L (3.5-5.1); Sodium 135 mmol/L (136-145); Total Protein 8.3 g/dL (6.4-8.2)
[2023-03-24 07:17] LABS: CREATININE 5.6 mg/dL (0.70-1.30)
[2023-03-24] MEDS: Polyethylene Glycol 3350 17 GM PACKET PO (07:29)
[2023-03-24] MEDS: Docusate Sodium 100 MG CAP PO (07:29)
[2023-03-24] MEDS: Empaglifozin 10 MG TAB PO (07:29)
[2023-03-24] MEDS: Omeprazole 20 MG CAPCR PO (07:30)
[2023-03-24] MEDS: Metoprolol CR 100 MG TABCR PO (07:30)
[2023-03-24] MEDS: Finasteride 5 MG TAB PO (07:30)
[2023-03-24] MEDS: Normal Saline Flush 10 ML SYR IVP ×2 (07:30→15:57)
[2023-03-24] MEDS: Potassium Chloride 10 MEQ CAPCR 30 MEQ PO (07:30)
[2023-03-24 07:33] VITALS: BP 110/67; PULSE 71; RESP 22; TEMP 36.4; O2SAT 97
[2023-03-24 08:42] VITALS: RESP 20
[2023-03-24 09:52] LABS: Lab Add On Test DONE
[2023-03-24 09:58] LABS: Reticulocyte 2.6 % (0.5-2.4)
[2023-03-24] MEDS: Insulin Aspart 300 UNITS/3 ML PEN 30 UNITS SC ×2 (10:39→12:15)
[2023-03-24] MEDS: Insulin Aspart 300 UNITS/3 ML PEN SC (12:14)
--- NOTE | 2023-03-24 12:38 | W.PM.PROGNOT ---
Date of Service Date of service: 03/24/23 Time of Service: 12:38 Assessment and Plan Assessment and plan (1) Atrial fibrillation: Status: Chronic Assessment and plan: Controlled rate on metoprolol Cr 100mg daily. On warfarin for AC. Monitor. (2) Chronic kidney disease: Status: Chronic Assessment and plan: Creatinine has been in the upper 4 to mid 5 range. Obstructive nephropathy d/t BPH. Chronic indwelling griffin catheter; new catheter inserted in ED. Diuresing with Torsemide and metolazone; decreased torsemide to 40mg QD (from BID) and holding metolazone. Monitor renal function. (3) Right heart failure: Status: Acute Assessment and plan: Echocardiogram on 01/01/23 was a technically difficult and suboptimal study. EF of 55%. Unable to assess segmental wall motion. I suspect a degree of dietary noncompliance with low Na intake; need to stress this. Will have nutrition consult with him regarding Na intake as well as DM2. (4) Anemia: Status: Chronic Assessment and plan: Etiology unclear but likely combination of anemia of chronic disease (CKD), iron deficiency, volume overload. Will hemoccult stool to evaluate for blood loss. Transfused 1 unit pRBCs Fe level of 18. Venofer 300mg IV infused. Gave a dose of Aranesp 300mcg. Hgb: 6.1 > 7 > 8.2 > 7.4 > 8.3 > 7.6. Likely some of these variations are related to fluid shifts. Retic count is 2.6. Monitor. 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 + LUCAS on CPAP. (6) Obstructive nephropathy: Status: Acute Assessment and plan: See CKD Cont tamsulosin. Chronic indwelling griffin cath. (7) Hyperlipidemia: Assessment and plan: Cont pravastatin. (8) Diabetes mellitus type 2 in obese: Assessment and plan: Cont Jardiance, Lantus and aspart insulin AC. Also SS insulin correction dosing. OK to monitor with his Dexcom. Diabetic diet. (9) LUCAS on CPAP: Assessment and plan: Home meds: Jardiance 5mg daily, insulin aspart 30 units SQ AC, Glargine 40 unis QHS. Diabetic diet. Diabetic education. Monitor. Subjective Subjective Patient reports: no new complaints, tolerating a regular diet and afebrile; denies nausea or vomiting Interval history since last seen: Improvement in ANDREW. Exam Narrative Exam Narrative: Sitting up in bed. RA only. is present. Const General: cooperative Nutritional Appearance: obese Orientation: alert and oriented x3 Eyes General: appearance normal, both eyes and all related structures Sclera: sclerae normal Neck Neck: other (large girth; difficult to evaluate for JVD) Resp Effort & Inspection: able to speak in complete sentences Auscultation: clear to auscultation bilaterally and diminished lung sounds Cardio Rate: regular rate Rhythm: abnormal rhythm irregularly irregular GI Inspection: obesity Palpation: soft and nontender Auscultation: normal bowel sounds Skin General skin exam: no rashes or lesions noted and other (brawny skin discoloration below the knees. ) Neuro General: no focal motor deficits Cranial Nerves: facial strength normal Cognition: normal cognition Speech: speech normal Extrem General: edema Laterality: bilateral (tr ) Psych Appearance: grossly normal Affect: normal affect Objective Last Vital Signs Temp 36.4 C L 03/24/23 07:33 Pulse 71 03/24/23 07:33 Resp 22 03/24/23 07:33 BP 110/67 03/24/23 07:33 Pulse Ox 97 03/24/23 07:33 Laboratory Results - last 24 hr 03/24/23 03/24/23 03/24/23 05:50 05:50 05:50 WBC 10.74 RBC 2.85 L Hgb 7.6 L Hct 24.5 L MCV 86 MCH 26.7 L MCHC 31.0 L RDW 17.3 H Plt Count 296 MPV 8.5 Reticulocyte % (Auto) Immature Gran % 3.9 Neutrophils % 70.3 Lymphocytes % 14.4 Monocytes % 9.4 Eosinophils % 1.7 Basophils % 0.3 Nucleated RBC % 0.0 Absolute Neutrophils 7.55 H Absolute Lymphocytes 1.55 Absolute Monocytes 1.01 H Absolute Eosinophils 0.18 Absolute Basophils 0.03 PT 31.0 H INR 3.1 H Sodium 135 L Potassium 3.9 Chloride 102 Carbon Dioxide 19.4 L Anion Gap 13.6 H BUN 72 H Creatinine 5.6 H* Est GFR (CKD-EPI 2020) 9.45 Glucose 168 H Calcium 10.2 H Total Bilirubin 0.3 AST 31 ALT 15 L Alkaline Phosphatase 265 H Total Protein 8.3 H Albumin 1.6 L Add-On Test Request 03/24/23 03/24/23 05:50 05:50 WBC RBC Hgb Hct MCV MCH MCHC RDW Plt Count MPV Reticulocyte % (Auto) 2.6 H Immature Gran % Neutrophils % Lymphocytes % Monocytes % Eosinophils % Basophils % Nucleated RBC % Absolute Neutrophils Absolute Lymphocytes Absolute Monocytes Absolute Eosinophils Absolute Basophils PT INR Sodium Potassium Chloride Carbon Dioxide Anion Gap BUN Creatinine Est GFR (CKD-EPI 2020) Glucose Calcium Total Bilirubin AST ALT Alkaline Phosphatase Total Protein Albumin Add-On Test Request DONE Time Spent with Patient Time Spent with Patient: 25-34 minutes Time was spent: preparing to see the patient(eg.review tests), ordering medications,tests, procedures, indepentently interpreting results and counseling the patient
--- NOTE | 2023-03-24 13:46 | PTTR_ITS ---
PT Notes Visit Reasons: Anemia, Acute Respiratory Failure, UTI Date: 03/24/2023 PRECAUTIONS: Activity as tolerated SUBJECTIVE: Pt in bed when approached for therapy this morning, pt refused standing activity, but agreed to participating with sitting on the EOB. OBJECTIVE: ? PAIN: pt complains of bilateral leg pain with movement, pain on buttock area due to pressure sore. ? BED MOBILITY/TRANSFERS Supine to sidelying: Mod A L/R sidelying to EOB max A+2 (pt spouse)? Sit-stand: mod A ? Stand-sit: min A? GAIT? Assistive Device: FWW ? Weight bearing: Full Assist: min A? Distance:? 2 steps F/B + 5steps sideways going to the HOB ? Deviation: very low step height and short step length, anterior trunk lean, Therapeutic Activities [id number] 50mins: instruction in dynamic activities with one on one patient contact by the provider to improve functional performance?as follows: Sit to stand from EOB to FWW min A Weight shifting while doing standing balance activity Standing marching in place Standing trunk rotation ASSESSMENT:? pt very dependent on spouse and requires spouse to be present before pt would do any activity. pt requires time for positional change request ing rest breaks everytime pt moves. pt very appreciative of being able to stand up and ambulate to get properly situated at the EOB and was able to stay sitting at the EOB to eat lunch. PLAN: Continue with global strengthening and general conditioning for improved activity tolerance. TREATMENT CODE/TIME: Session 1: 50 minutes; 53511 x3 (11:00-11:50am) ?
[2023-03-24] MEDS: cefTRIAXone 2 GM/50 ML BAG IVPB (15:57)
[2023-03-24 16:01] VITALS: BP 117/73; PULSE 72; RESP 20; TEMP 37.1; O2SAT 97
[2023-03-24] MEDS: Insulin Glargine 300 UNITS/3 ML PEN 40 UNITS SC (20:36)
[2023-03-24] MEDS: Tamsulosin 0.4 MG CAPCR PO (21:25)
[2023-03-24] MEDS: Magnesium Oxide 400 MG TAB PO (21:25)
[2023-03-24] MEDS: Pravastatin 40 MG TAB PO (21:25)
[2023-03-24] MEDS: Melatonin 3 MG TAB 6 MG PO (21:26)
[2023-03-25 04:04] VITALS: BP 108/63; PULSE 72; RESP 16; TEMP 36.7; O2SAT 98
[2023-03-25 07:02] LABS: HCT 25.2 % (40.0-50.0); HGB 7.6 g/dL (13.5-17.5)
[2023-03-25] MEDS: Polyethylene Glycol 3350 17 GM PACKET PO (07:07)
[2023-03-25] MEDS: Potassium Chloride 10 MEQ CAPCR 30 MEQ PO (07:07)
[2023-03-25] MEDS: Empaglifozin 10 MG TAB PO (07:08)
[2023-03-25] MEDS: Finasteride 5 MG TAB PO (07:08)
[2023-03-25] MEDS: Docusate Sodium 100 MG CAP PO (07:08)
[2023-03-25] MEDS: Normal Saline Flush 10 ML SYR IVP (07:08)
[2023-03-25] MEDS: Metoprolol CR 100 MG TABCR PO (07:08)
[2023-03-25] MEDS: Omeprazole 20 MG CAPCR PO (07:11)
[2023-03-25 07:14] LABS: INR 3.1 (0.9-1.1); Prothrombin Time 31.3 sec (9.3-11.0)
[2023-03-25 07:15] VITALS: BP 108/62; PULSE 67; RESP 22; TEMP 36.6; O2SAT 97
[2023-03-25 07:40] LABS: Anion Gap 14.8 mmol/L (3-11); BUN 74 mg/dL (7-18); CO2 18.2 mmol/L (21.0-32.0); Calcium 10.1 mg/dL (8.5-10.1); Chloride 100 mmol/L (98-107); Estimated GFR 9.25 (mL/min/1.73m2); Glucose 155 mg/dL (74-106); Potassium 3.5 mmol/L (3.5-5.1); Sodium 133 mmol/L (136-145)
[2023-03-25 07:52] LABS: CREATININE 5.7 mg/dL (0.70-1.30)
[2023-03-25 08:36] VITALS: RESP 20
--- NOTE | 2023-03-25 09:48 | CMPROGNOTE_ITS ---
Date of service: 03/25/23 Time of Service: 09:48 Care Management Progress Note Progress Note Text Progress Note Text: S/O: Sav is lying in bed, visiting with his when CM met with him. He is pleasant and easily engages in conversation. He is aware that PT recommends SNF for STR, however he refuses and requests to discharge home when medically ready. He feels that he is well set up at home and expresses that he doesn't believe STR at a SNF will help his mobility, which has been declining for several years. Sav has a motorized wheelchair, FWW and ramps and his is always home. CM discussed services offered by the [facility]. No referral is made, per pts request. A: 82 year old male admitted to [facility] on 03/21/23 for Anemia, acute respiratory failure, UTI P: PT recommends SNF for STR, which Sav refuses. Anticipate he will discharge home via private vehicle with (with Lift Assist, if needed). Resume [facility] RN services, add PT/OT/SENIOR MECHANICAL DESIGNER. CM will continue to follow.
[2023-03-25] MEDS: Insulin Aspart 300 UNITS/3 ML PEN SC (12:08)
[2023-03-25] MEDS: Insulin Aspart 300 UNITS/3 ML PEN 30 UNITS SC (12:09)
--- NOTE | 2023-03-25 15:17 | PDOC.CMIN ---
Date of service: 03/25/23 Time of Service: 15:18 [facility] All Active Problems Fever (Acute) Chronic indwelling Knox catheter (Acute) Symptomatic anemia (Acute) Acute renal failure (Acute) Acute UTI (Acute) Diabetes mellitus (Chronic) Atrial fibrillation (Chronic) on coumadin Chronic kidney disease (Chronic) 2020- borderline stage 4 Venous insufficiency (chronic) (peripheral) (Acute) Nail dystrophy (Acute) COVID-19 (Acute ~08/05/22) Thumb pain (Acute) Right heart failure (Acute) Urinary retention (Acute) 11/2021, ultrasound shows significant pretty and post void residual- minimal response to voiding Kidney stones (Chronic) Longstanding history of multiple stones 11/2021 ultrasound showed multiple stones in kidney, 1 stone possibly in right ureter Anemia (Chronic) Chronic mild anemia, associated with CKD Obstructive sleep apnea (Chronic) cpap Acute on chronic heart failure with preserved ejection fraction (Acute) Hives (Acute) Obesity (Acute 02/11/13) Obstructive nephropathy (Acute) Moderate pulmonary arterial systolic hypertension (Chronic) Chronic anticoagulation (Chronic) Polyp of colon (Chronic) Rosacea (Chronic) Constipation (Chronic) CHF (congestive heart failure) (Chronic) Medical History Atrial fibrillation BPH (benign prostatic hyperplasia) Diabetes mellitus type 2 in obese Essential hypertension, benign GERD (gastroesophageal reflux disease) Hyperlipidemia Nephrolithiasis Obesity hypoventilation syndrome LUCAS on CPAP Palliative care patient Surgical History Cholecystectomy (~1985) Colonoscopy - MAC (~2002) Replacement of total knee joint B/L Tonsillectomy and adenoidectomy Family History Mother Diabetes Heart disease Father Neoplasm STOMACH Brother Neoplasm Brother No problems noted. Daughter No problems noted. Social History Smoking/Tobacco Use Status: Never Second Hand Exposure: No Smoking risk assessment performed?: Yes Alcohol Intake: current Alcohol Intake frequency: holidays/special occasions only Drug use: Never Substance use type: does not use Caregiver/Support person: Yes Household members: spouse Housing: house Communication Needs: Hard of Hearing Do you need help understanding health information?: Often Pets and animals: No Sexually active: No What is your relationship status?: How often do you talk on the phone with friends or family?: decline to answer How often do you get together with friends or relatives?: decline to answer How often do you attend religion or caodaism services?: decline to answer Do you belong to any clubs or organized social groups?: decline to answer Panel score (0-1 are the most socially isolated patients): 1 What type of physical activity do you participate in: walking Duration: < 15 minutes/day Frequency: daily Special amor needs: No Do you feel safe at home: Yes Do you feel safe in your relationship?: Yes
[2023-03-25] MEDS: cefTRIAXone 2 GM/50 ML BAG IVPB (15:28)
[2023-03-25 15:34] VITALS: BP 110/68; PULSE 68; RESP 22; TEMP 36.7; O2SAT 98
--- NOTE | 2023-03-25 16:45 | PT.INTREAT ---
Date of service: 03/25/23 Time of Service: 14:20 PT Notes Visit Reasons: Anemia, Acute Respiratory Failure, UTI Physical Therapy Inpatient Treatment Note PRECAUTIONS: Activity as tolerated. SUBJECTIVE: Agreeable to getting out of bed and transferring to the bedside chair. Highly dependent on but with encouragement has allowed Nurse CATHERINE Reynoso, and this PT to help him as he moved. Did not report as much pain as he did last session. Higly anxious about falling. Anticipates pain. OBJECTIVE: ? PAIN: Generalized pain with movement but of a much less intensity 9minimal pain) compared to last session ? BED MOBILITY/TRANSFERS Supine to sitting: moderate assist of 2 with HOB at 45 degrees Supine to sit: moderate assist of 2 ? Sit-stand: minimal assist of 2 ?with FWW ? Stand-sit: minimal assist of 2 ?with FWW ? GAIT? Assistive Device: FWW ? Weight bearing: Full Assist: minimal assist of 2? Distance:? Up to 8 steps from bedside to recliner? Deviation: Trunk bent, unable to fully extend at knee, slow pacing, reports fatigue limiting tolerance THERA EX: Quads sets x 10 with 5 sh Gluteal sets x 10 with 5 sh Ankle DF/PF x10 Hip adductor squeeze x 10 with 5 sh ASSESSMENT:? Has trust issues with other people trying to move him without his . Expressed how his limbs have been yanked out in the past while he was assisted out of bed and has made him selective who lets him help with mobility tasks. Low endurance, requires short, intermittent rests in between small tasks. Gets out of breath easy. Fearful of falling. Refusing SNF placement. PLAN: Coordinate with nurse to pre-medicate for pain. May do supine or seated exercises to increase ROM and flexibility of B UE/LE joints. Increase standing balance/tolerance to reduce fall risk. Minimize participation of to just supervision to build trust with staff with mobility performance. Initiate balance skilling to reduce fall risk. Goal is to be able to walk 25 feet in preparation of home D/C. TREATMENT CODE/TIME: Session 1-- 77251 x 38 minutes beginning at 10:45 AM. Session 2-- [id number] x 15 minutes ebginning at 14:20 PM. ?
--- NOTE | 2023-03-25 19:48 | PGE_ITS ---
Date of Service Date of service: 03/25/23 Time of Service: 19:48 Assessment and Plan Assessment and plan (1) Acute UTI: Status: Acute Assessment and plan: Due to klebsiella + mixed sapphire, present on admission, associated with an indwelling catheter. Continue ceftriaxone. Griffin exchanged in the ED. (2) Right heart failure: Status: Acute Assessment and plan: COntinue diuresis w/ torsemide/metolazone + CPAP. (3) Anemia: Status: Chronic Assessment and plan: Etiology: combination of anemia of chronic disease due to CKD, iron deficiency, volume overload. s/p 1 unit pRBCS and venofer x 1 on this admission as well as aranesp. Hgb stable at 7.6. Will consider another unit of PRBCs if H/H does not improve by tomorrow. (4) Atrial fibrillation: Status: Chronic Assessment and plan: Rate controlled. Continue metoprolol. Hold coumadin today due to a supratherapeutic INR. (5) Chronic kidney disease: Status: Chronic Assessment and plan: Cr remains at 5.7, which is near baseline. Continues to make urine. Continue griffin catheter, monitor Cr while diuresing w/ torsemide + metolazone. Griffin was exchanged in the ED. (6) Moderate pulmonary arterial systolic hypertension: Status: Chronic Assessment and plan: Continue torsemide and CPAP. Has LUCAS/OHS/pulmonary hypertension. (7) Obstructive nephropathy: Status: Acute Assessment and plan: See CKD Cont tamsulosin. Chronic indwelling griffin cath. (8) Hyperlipidemia: Assessment and plan: Continue pravastatin. (9) Diabetes mellitus type 2 in obese: Assessment and plan: Continue jardiance, basal bolus insulin. (10) LUCAS on CPAP: Assessment and plan: Continue CPAP (11) DVT prophylaxis: Status: Acute Assessment and plan: Supratherapeutic on coumadin. (12) Discharge planning issues: Status: Acute Assessment and plan: DNR/DNI Continues to require hospitalization. 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 Subjective Subjective Interval history since last seen: Mr Winkler feels a little bit better today. He says he feels stronger. He is not short of breath and states his leg swelling and scrotal edema are both better. Denies dizziness, chest pain, shortness of breath. Exam Narrative Exam Narrative: General: Pleasant elderly male who is A&Ox3, NAD HEENT: EOMI, MMM Heart: RRR, no m/r/g Lungs: CTAB anteriorly Abdomen: soft, nontender, nondistended Extremities: trace edema BLEs, wearing SCDs Objective Last Vital Signs Temp 36.7 C 03/25/23 15:34 Pulse 68 03/25/23 15:34 Resp 22 03/25/23 15:34 BP 110/68 03/25/23 15:34 Pulse Ox 98 03/25/23 15:34 Laboratory Results - last 24 hr 03/25/23 03/25/23 03/25/23 06:30 06:30 06:30 Hgb 7.6 L Hct 25.2 L PT 31.3 H INR 3.1 H Sodium 133 L Potassium 3.5 Chloride 100 Carbon Dioxide 18.2 L Anion Gap 14.8 H BUN 74 H Creatinine 5.7 H* Est GFR (CKD-EPI 2020) 9.25 Glucose 155 H Calcium 10.1 Time Spent with Patient Time Spent with Patient: 25-34 minutes Time was spent: preparing to see the patient(eg.review tests), obtaining and/or reviewing separately otained hiistory, ordering medications,tests, procedures, referring, communicating with other health career center director, indepentently interpreting results, counseling the patient and care coordination
[2023-03-25] MEDS: Tamsulosin 0.4 MG CAPCR PO (21:32)
[2023-03-25] MEDS: Pravastatin 40 MG TAB PO (21:32)
[2023-03-25] MEDS: Magnesium Oxide 400 MG TAB PO (21:32)
[2023-03-25] MEDS: Melatonin 3 MG TAB 6 MG PO (21:32)
[2023-03-25] MEDS: Insulin Glargine 300 UNITS/3 ML PEN 40 UNITS SC (21:32)
[2023-03-25 23:20] VITALS: BP 110/64; PULSE 66; RESP 20; TEMP 36.3; O2SAT 97
[2023-03-26] VITALS (7 sets, daily range): BP systolic 103–112; BP diastolic 63–71; PULSE 67–85; RESP 18–24; TEMP 36.1–37.2; O2SAT 97–98
[2023-03-26 07:07] LABS: Abs Immature Grans 0.24 10^3/uL (0.0-0.06); Absolute Basophil Count 0.03 10^3/uL (0.0-0.2); Absolute Lymphocyte Count 1.43 10^3/uL (1.2-3.4); Absolute Monocyte Count 0.95 10^3/uL (0.1-0.8); Basophils % 0.3; Eosinophils % 1.8; HCT 24.9 % (40.0-50.0); HGB 7.5 g/dL (13.5-17.5); Immature Grans % 2.2; Lymphocytes % 12.9; MCHC 30.1 % (32.0-36.0); MCV 86 fL (80-95); MPV 8.3 fL (8.0-11.0); Monocytes % 8.6; Neutrophils % 74.2; Platelet Count 307 10^3/uL (130-400); RBC 2.89 10^6/uL (4.36-5.78); RDW 17.5 % (11.8-14.1); RDW-SD 53.8 fL
[2023-03-26 07:13] LABS: Absolute Neutrophil Count 8.24 10^3/uL (1.2-6.7)
[2023-03-26 07:28] LABS: INR 2.9 (0.9-1.1); Prothrombin Time 28.9 sec (9.3-11.0)
[2023-03-26 07:36] LABS: BUN 74 mg/dL (7-18); Calcium 10.1 mg/dL (8.5-10.1); Chloride 102 mmol/L (98-107); Estimated GFR 9.45 (mL/min/1.73m2); Glucose 202 mg/dL (74-106); Magnesium 1.8 mg/dL (1.8-2.4); Potassium 4.1 mmol/L (3.5-5.1); Sodium 135 mmol/L (136-145)
[2023-03-26 07:52] LABS: Anion Gap 14.3 mmol/L (3-11); CO2 18.7 mmol/L (21.0-32.0)
[2023-03-26 07:55] LABS: CREATININE 5.6 mg/dL (0.70-1.30)
[2023-03-26] MEDS: Potassium Chloride 10 MEQ CAPCR 30 MEQ PO (09:11)
[2023-03-26] MEDS: Milk of Magnesia 30 ML CUP PO ×2 (09:12→09:15)
[2023-03-26] MEDS: Finasteride 5 MG TAB PO (09:12)
[2023-03-26] MEDS: Docusate Sodium 100 MG CAP PO (09:12)
[2023-03-26] MEDS: Metoprolol CR 100 MG TABCR PO (09:12)
[2023-03-26] MEDS: Insulin Aspart 300 UNITS/3 ML PEN SC ×2 (09:12→12:55)
[2023-03-26] MEDS: Empaglifozin 10 MG TAB PO (09:12)
[2023-03-26] MEDS: Omeprazole 20 MG CAPCR PO (09:12)
[2023-03-26] MEDS: Insulin Aspart 300 UNITS/3 ML PEN 30 UNITS SC ×2 (09:13→12:56)
[2023-03-26] MEDS: Polyethylene Glycol 3350 17 GM PACKET PO (09:15)
--- NOTE | 2023-03-26 11:54 | OTIE_ITS ---
Occupational Therapy Notes Inpatient Occupational Therapy Evaluation Date: 03/26/23 Referring Doctor:Anali Miller MD OT Orders:Non urgent Precautions: Standard Precautions, fall, Full PATIENT PROFILE/ADMITTING DIAGNOSIS: Pt is a 82 year old male who was admitted to [facility] via ED for fever, symptomatic anemia, acute Kidney injury, acute renal failure, UTI, DM, a-Fib, chronic kidney disease. Past Medical History: All Active Problems? Fever (Acute) Chronic indwelling Griffin catheter (Acute) Symptomatic anemia (Acute) Acute renal failure (Acute) Acute UTI (Acute) Diabetes mellitus (Chronic) Atrial fibrillation (Chronic) on coumadinChronic kidney disease (Chronic) 2020- borderline stage 4Venous insufficiency (chronic) (peripheral) (Acute) Nail dystrophy (Acute) COVID-19 (Acute ~08/05/22) Thumb pain (Acute) Right heart failure (Acute) Urinary retention (Acute) 11/2021, ultrasound shows significant pretty and post void residual- minimal response to voidingKidney stones (Chronic) Longstanding history of multiple stones 11/2021 ultrasound showed multiple stones in kidney, 1 stone possibly in right ureterAnemia (Chronic) Chronic mild anemia, associated with CKDObstructive sleep apnea (Chronic) cpapAcute on chronic heart failure with preserved ejection fraction (Acute) Hives (Acute) Obesity (Acute 02/11/13) Obstructive nephropathy (Acute) Moderate pulmonary arterial systolic hypertension (Chronic) Chronic anticoagulation (Chronic) Polyp of colon (Chronic) Rosacea (Chronic) Constipation (Chronic) CHF (congestive heart failure) (Chronic) Medical History? Atrial fibrillation BPH (benign prostatic hyperplasia) Diabetes mellitus type 2 in obese Essential hypertension, benign GERD (gastroesophageal reflux disease) Hyperlipidemia Nephrolithiasis Obesity hypoventilation syndrome LUCAS on CPAP Palliative care patient Surgical History? Cholecystectomy (~1985) Colonoscopy - MAC (~2002) Replacement of total knee joint B/LTonsillectomy and adenoidectomy Social History/Home Situation: Pt reports that he lives with in a house in [place], [place]. He has 2 steps to enter no railing and a step down living room wi th one step to get down into it. His baseline is (I) in ADLs and reports that his assists him with any other care that he needs including the shower (A), LE dressing (A) and cooking tasks. Equipment owned/DME: Cane, FWW, CPAP, shower seat, grab bars in bathroom SUBJECTIVE:? Pt sitting in bed when OT arrived. He is agreeable to OT session but notes that he feels that he is good with his routine with the (A) of his . OBJECTIVE: General Observation: Pleasant and agreeable to OT session, (R) UE IV, griffin in place, telemetry Mental Status: A&Ox4 Pain: no c/o pain ROM: RUE AROM Khushboo flexion limited to 95-100*, Elbow WNL (flexion and extension) L UE AROM WNL STRENGTH: RUE 5/5 throughout LUE 5/5 throughout OT and pt went over pts current level of function and his functional (I) in his daily routines. Pt states that he is as (I) as he can be with good and bad days. His is present and states that she (A) him with his ADLs. He denies bathing today and notes that he performed this yesterday. BALANCE: Static sitting Normal Dynamic Sitting Normal SPECIAL TESTS: Daily Activity Limitations Standardized Measure [facility] ? AM -PAC ? ?6 clicks? Daily Activity Inpatient Short Form: Raw score:14 ? Standardized score: 33.39? CMS score: ? 59.67% ? INFORMED CONSENT/EDUCATION: Pt instructed in purpose of OT Consult and plan of care. ASSESSMENT: ? Patient is a? 82-year-old male referred to occupational therapy services with diagnosis of fever, symptomatic anemia, acute Kidney injury, acute renal failure, UTI, DM, a-Fib, chronic kidney disease. Pt has difficulty with decreased functional activity tolerance, decreased standing tolerance, decreased ability to perform ADLs, decreased functional mobility required for ADLs. Pts and and pt agree through that they feel that where he is at is a good baseline and would like to hold on skilled OT services. Patient is assessed as a? Moderate 00171 complexity based on the following: History:? see above Examination: See functional limitations as noted above Presentation: Evolving Decision Making: moderate complexity GOALS:N/A PLAN OF CARE/TREATMENT PLAN: Discharge from skilled OT services. Pt and his feel that pt does not need services at this time. DISCHARGE RECOMMENDATIONS home with continued HH services when medically cleared vs. SNF TREATMENT TIME/MINUTES/CODES Maliha Hill OTR/L [facility]
--- NOTE | 2023-03-26 13:45 | PHA.REVIEW2 ---
Pharmacy Admission Review - Admission Clinical Review (Last Reviewed 03/22/23 @ 06:58 by Mor Adames MD) Discharge planning issues (Acute) DVT prophylaxis (Acute) Fever (Acute) Chronic indwelling Knox catheter (Acute) Symptomatic anemia (Acute) Acute UTI (Acute) Right heart failure (Acute) Obstructive nephropathy (Acute) No Known Allergies Allergy (Verified 03/21/23 10:15) Resuscitation Status DNR/DNI Height 6 ft 2 in Weight 148.6 kg - Renal Dosing Renal Dosing: BUN 74 mg/dL (7-18) H 03/26/23 05:56 Creatinine 5.6 mg/dL (0.70-1.30) H* 03/26/23 05:56 Medications needing adjustments: Reviewed List of meds needing interventions: SCr 5.6, eCrCl 15.3 ml/min; jardiance dosed reduced to 10mg, torsemide on hold - Anticoagulation Anticoagulation: Hgb 7.5 g/dL (13.5-17.5) L 03/26/23 05:56 Hct 24.9 % (40.0-50.0) L 03/26/23 05:56 Plt Count 307 10^3/uL (130-400) 03/26/23 05:56 INR 2.9 (0.9-1.1) H 03/26/23 05:56 Creatinine 5.6 mg/dL (0.70-1.30) H* 03/26/23 05:56 Therapeutic Anticoagulation: Intervened (restarted Warfarin today as INR is finally below 3 but at a slightly lower dose per recommendation from MD) Medications: Warfarin (Warfarin was held on 03/23 due to elevated INR of 3.3 and restarted today as INR was 2.9 -- warfarin will be reinitiated with a 5% dose reduction) - Opiate Usage Evaluate Pain Scale/Pains Meds: N/A - Relevant Labs Sodium 135 mmol/L (136-145) L 03/26/23 05:56 Potassium 4.1 mmol/L (3.5-5.1) 03/26/23 05:56 Chloride 102 mmol/L (98-107) 03/26/23 05:56 Magnesium 1.8 mg/dL (1.8-2.4) 03/26/23 05:56 Electrolytes, C-Reactive P, ESR: Reviewed - DM Control DM Control: Glucose 202 mg/dL (74-106) H 03/26/23 05:56 Finger Stick Blood Glucose 213 Finger Stick Blood Glucose 213 Finger Stick Blood Glucose 213 Finger Stick Blood Glucose 158 Finger Stick Blood Glucose 158 DM Control: Reviewed (aspart per SS + schedule 30 units prior to meals and glargine 40u at hs) - Cardiac Review Cardiac Review: Troponin I 54 ng/L (<or=60) 03/21/23 10:48 NT-Pro-B Natriuret Pep 02952 pg/mL (<300) H 03/21/23 10:48 BP, HR, EF%: Reviewed - Qtc Review QTc: Reviewed (QTc 445 on admission) - IV to PO Switch IV Medications: Reviewed - Home Meds Home Med List reviewed: Reviewed Relevent Home Meds Not ordered & why?: all ordered - Current meds Current Medication Order Review: Reviewed
[2023-03-26] MEDS: Nystatin POWDER 60 GM JAR TP ×2 (14:00→21:46)
--- NOTE | 2023-03-26 14:27 | CHAPLAIN ---
Sav was in bed, sleeping, when I visited. I spoke with his . She was pleasant and easily engaged in a conversation. They and from [facility] and don't have other relatives around to help out, Mrs. Winkler said. According to Care Management notes, Sav prefers to go home rather to a rehab after being discharged here. I introduced myself to Sav's , explained my role and offered support.
--- NOTE | 2023-03-26 16:08 | PGE_ITS ---
Date of Service Date of service: 03/26/23 Time of Service: 16:08 Assessment and Plan Assessment and plan (1) Acute UTI: Status: Acute Assessment and plan: Due to klebsiella + mixed sapphire, present on admission, associated with an indwelling catheter. Continue ceftriaxone. Griffin exchanged in the ED. (2) Right heart failure: Status: Acute Assessment and plan: Continue diuresis w/ torsemide/metolazone + CPAP. (3) Anemia: Status: Chronic Assessment and plan: Etiology: combination of anemia of chronic disease due to CKD, iron deficiency, volume overload. s/p 1 unit pRBCS and venofer x 1 on this admission as well as aranesp. Hgb stable, but target Hgb is closer to 10 given CKD. Will give 1 unit of pRBCs today. (4) Atrial fibrillation: Status: Chronic Assessment and plan: Rate controlled. Continue metoprolol. Hold coumadin today prior to reinitiation of home schedule tomorrow. (5) Chronic kidney disease: Status: Chronic Assessment and plan: Cr is 5.6. Continues to make urine. Continue griffin catheter, monitor Cr while diuresing w/ torsemide + metolazone. Griffin was exchanged in the ED. (6) Moderate pulmonary arterial systolic hypertension: Status: Chronic Assessment and plan: Continue torsemide and CPAP. Has LUCAS/OHS/pulmonary hypertension. May require diuretics post blood. (7) Obstructive nephropathy: Status: Acute Assessment and plan: See CKD Continue tamsulosin. Chronic indwelling griffin cath. (8) Hyperlipidemia: Assessment and plan: Continue pravastatin. (9) Diabetes mellitus type 2 in obese: Assessment and plan: Continue jardiance, basal bolus insulin. (10) LUCAS on CPAP: Assessment and plan: Continue CPAP (11) DVT prophylaxis: Status: Acute Assessment and plan: Therapeutic on coumadin (12) Discharge planning issues: Status: Acute Assessment and plan: DNR/DNI Continues to require hospitalization. Ideally would go to SNF, but refusing this at this time. ?Candidate for a swing? After which he would go home with resumption of home health nursing and new home health PT, OT, AUTOMOTIVE SALES ASSOCIATE. Subjective Subjective Interval history since last seen: Mr Winkler states that he has a hard time getting up from the bed and sitting down. He is a 2 assist. His also notes that he has two wounds in his devante area and is interested in a wound care evaluation. The patient states his breathing is good ( confirms he is at his baseline), denies dizziness, chest pain, nausea. When discussing that it might be a good idea for the patient to go to a SNF on discharge, he initially agrees, but then changed his mind with care management and is now refusing SNF. Exam Narrative Exam Narrative: General: Pleasant elderly male who is A&Ox3, NAD, sitting up at the edge of the bed HEENT: EOMI, MMM Heart: RRR, no m/r/g Lungs: CTAB anteriorly Abdomen: soft, nontender, nondistended Extremities: trace edema BLEs,, TTP distal RLE tibial surface Objective Last Vital Signs Temp 37.2 C 03/26/23 14:53 Pulse 85 03/26/23 14:53 Resp 24 03/26/23 14:53 BP 103/68 03/26/23 14:53 Pulse Ox 98 03/26/23 14:53 Laboratory Results - last 24 hr 03/26/23 03/26/23 03/26/23 05:56 05:56 05:56 WBC 11.10 H RBC 2.89 L Hgb 7.5 L Hct 24.9 L MCV 86 MCH 26.0 L MCHC 30.1 L RDW 17.5 H Plt Count 307 MPV 8.3 Immature Gran % 2.2 Neutrophils % 74.2 Lymphocytes % 12.9 Monocytes % 8.6 Eosinophils % 1.8 Basophils % 0.3 Nucleated RBC % 0.0 Absolute Neutrophils 8.24 H Absolute Lymphocytes 1.43 Absolute Monocytes 0.95 H Absolute Eosinophils 0.20 Absolute Basophils 0.03 PT 28.9 H INR 2.9 H Sodium 135 L Potassium 4.1 Chloride 102 Carbon Dioxide 18.7 L Anion Gap 14.3 H BUN 74 H Creatinine 5.6 H* Est GFR (CKD-EPI 2020) 9.45 Glucose 202 H Calcium 10.1 Magnesium 1.8 Crossmatch 03/26/23 16:06 WBC RBC Hgb Hct MCV MCH MCHC RDW Plt Count MPV Immature Gran % Neutrophils % Lymphocytes % Monocytes % Eosinophils % Basophils % Nucleated RBC % Absolute Neutrophils Absolute Lymphocytes Absolute Monocytes Absolute Eosinophils Absolute Basophils PT INR Sodium Potassium Chloride Carbon Dioxide Anion Gap BUN Creatinine Est GFR (CKD-EPI 2020) Glucose Calcium Magnesium Crossmatch See Detail Time Spent with Patient Time Spent with Patient: 25-34 minutes Time was spent: preparing to see the patient(eg.review tests), obtaining and/or reviewing separately otained hiistory, ordering medications,tests, procedures, referring, communicating with other health care rep, indepentently interpreting results, counseling the patient and care coordination
--- NOTE | 2023-03-26 16:13 | PT.INNT ---
Date of service: 03/26/23 Time of Service: 11:50 PT Notes Visit Reasons: Anemia, Acute Respiratory Failure, UTI Patient is busy with other healthcare providers. Will treat in the afternoon.
--- NOTE | 2023-03-26 16:15 | PT.INTREAT ---
Date of service: 03/26/23 Time of Service: 14:09 PT Notes Visit Reasons: Anemia, Acute Respiratory Failure, UTI Inpatient Physical Therapy Treatment Note [facility] Date: 03/26/23 PRECAUTIONS: Fall. Standard. Activity as tolerated. SUBJECTIVE: Patient supine in bed, agreeable to therapy. States his goal for today is to stand up on his own. OBJECTIVE: PAIN: none reported BED MOBILITY/TRANSFERS Rolling L/R: standby Supine-sit: min assist Sit-supine: not assessed Sit-stand: CGA x2 Stand-sit: CGA x2 Bed-Chair: CGAx2 with verbal cues to reassure patient that we won't let him fall / wont let the walker roll away. Chair-bed:CGAx2 with verbal cues to reassure patient that we won't let him fall / wont let the walker roll away. GAIT Assistive Device: front wheeled walker Weight bearing: full Assist: CGA x2 Distance: 5 feet Deviation: decreased stride length, decreased foot clearance THEREX: sit to stands x3 with extended rests between, seated marching ASSESSMENT: Patient tolerates therapy well, ends therapy sitting up on the commode PLAN: Continue therapy per plan of care for strengthening, functional activity tolerance. TREATMENT CODE/TIME: 22510 Ther Ex 30 minutes, 56741 Gait 15 minutes, 65581 Neuro Sharif 15 minutes beginning at 14:09
[2023-03-26] MEDS: cefTRIAXone 2 GM/50 ML BAG IVPB (16:34)
--- NOTE | 2023-03-26 16:48 | CMPROGNOTE_ITS ---
Date of service: 03/26/23 Time of Service: 16:48 Care Management Progress Note Progress Note Text Progress Note Text: S/O: Sav is lying in bed when CM met with him, his is at his bedside. Sav agreed to SNF for STR when the hospitalist met with him, but is now having second thoughts. Per Lashawn, she had a talk with Sav and they feel that SNF is not is their best interest. She would have a difficult time traveling to a SNF. Sav agrees and states I want to go home. Both are aware that additional home support is recommended on discharge if SNF is not being considered. Lashawn reports that she just got off the phone with her tenant, who is an PLATFORM MILL SUPERVISOR and she can help when needed. Lashawn reiterates to CM again today that Sav has been like this for 1.5 years, she helps him get up and down and get dressed. No SNF referral's are sent, per pts request. Hospitalist is notified. A: 82 year old male admitted to [facility] on 03/21/23 for Anemia, acute respiratory failure, UTI P:?PT recommends SNF for STR, which Sav consistently refuses. Anticipate he will discharge home via private vehicle with (with Lift Assist, if needed). Resume [facility] RN services, add PT/OT/LIQUID FLAVOR COMPOUNDER.? CM will continue to follow.
--- NOTE | 2023-03-26 18:31 | WOUNDCONS ---
- If Service Date Differs Date of service: 03/26/23 Time of Service: 18:31 Wound Initial Evaluation Narrative: This is an 82 year old man who was admitted after 2 weeks of increasing weakness and fever. He does have an indwelling griffin and was found to have a UTI and CHF. Initial WBC of 14.81 now down to 11.1. Upon initial assessment, pt is very edematous including a large panus, enlarged scrotum, and leg edema. He is very weak rolling over in bed from side to side. He was found to be anemic also with an H&H of 7.0 and 23.4. Blood is currently hanging for a count of 7.5 and 24.9 today. He also has acute kidney failure with a BUN of 74, cre of 5.6. Mouth looks dry with a crevice tongue. The patient is also a diabetic with a blood sugar of 202 this am. He also has many comorbidities such as: Diabetes mellitus, Atrial fibrillation on coumadin, Chronic kidney disease stage 4, Venous insufficiency (chronic) (peripheral) (Acute), COVID-19 in Jul 2022, Right heart failure (Acute), Urinary retention being treated with an indwelling griffin, Kidney stones (Chronic), Obstructive sleep apnea (Chronic) with cpap use, Acute on chronic heart failure with preserved ejection fraction (Acute), morbid Obesity, Obstructive nephropathy (Acute), Moderate pulmonary arterial systolic hypertension (Chronic), and Constipation (Chronic). His urine grew out klebsiella. The has been caring for the patient at home and states he really hasn't been able to get out of bed for a couple of weeks due to weakness. She has a lift assist device at home that he normally can pull himself up with but lately has not been able to. He also has a lift chair. She noticed sores on his buttocks beginning about 2 weeks ago and states that they have been too sore for Sav to be able to sit up. Body Four View: 1 - left ischial tuberosity 2 - right ischial tuberosity 3 - coccyx - Wound left ischial tuberosity Wound Type: Other Wound General Appearance: Bleeding, Unapproximated Wound Bed Greatest Portion: Blanched/Dull Wound Bed Lesser Portion: Yellow (Slough) Wound Surrounding Tissue Appearance: [place] Percent of Wound Bed Granulated/Red: 90 Percent of Wound Bed Slough/Yellow: 10 Percent of Wound Bed Eschar/Black: 0 Wound Length: 1.18 in (3cm) Wound Width: 0.79 in (2cm) Wound Depth: 0 in (0.01cm) Wound Drainage Amount: Minimal (mays) Wound Drainage Odor: None/Absent Wound Drainage Description: Serous Wound Topical Solution/Irrigant: Other (Anasept spray) Wound Debridement Method: Gauze Wound Debridement Result: Healthy Tissue Revealed Wound Debridement Amount of Tissue Removed: Minimal right ischial tuberosity Wound Type: Deep Tissue Injury (DTI) Pressure Ulcer Stage: Eschar/Unstageable Wound General Appearance: Reddened, Other (burgundy purple) Wound Bed Greatest Portion: Dusky Red, Other (burgundy purple) Wound Bed Lesser Portion: Dusky Red Wound Surrounding Tissue Appearance: Bright Red Percent of Wound Bed Granulated/Red: 0 Percent of Wound Bed Slough/Yellow: 5 Percent of Wound Bed Eschar/Black: 95 (burgundy purple) Wound Length: 0.79 in Wound Width: 1.18 in Wound Depth: 0 in coccyx Wound Type: Abrasion, Other (shear injury) Wound General Appearance: Open to air Wound Bed Greatest Portion: Yellow (Slough) Wound Bed Lesser Portion: Pale [place] Wound Surrounding Tissue Appearance: [place] Percent of Wound Bed Granulated/Red: 20 Percent of Wound Bed Slough/Yellow: 80 Percent of Wound Bed Eschar/Black: 0 Wound Length: 0.59 in (1.5cm) Wound Width: 1.38 in (3.5cm) Wound Depth: 0 in (0.01cm) Wound Drainage Amount: None Wound Drainage Odor: None/Absent Wound Topical Solution/Irrigant: Other (Anasept spray) Wound Debridement Method: Gauze Wound Debridement Amount of Tissue Removed: Minimal - Circulation, Sensation, Motion Edema Degree: 3+ Skin Temperature: Warm Skin Color: Pale - Pain Pain Level: 5 Pain Scale Used: Adult Pain Duration/Frequency: With Palpation Pt is able to help slide himself up in the bed however he does have some shearing injuries over his coccyx and left ischial tuberosity. His states that due to the edema, his scrotum has been sticking to his thigh and she has been concerned about tears. Due to his inactivity at home, she has also been concerned with bedsores. We discussed at length that even the griffin catheter can cause pressure injuries if caught between his thighs and scrotum or underneath him. She has been very creative in cutting a hold in the front of his depends to pass the catheter through. At this time we have applied interdry between his scrotum and thighs to avoid the skin to skin contact. She has also spoken to her pharmacist about wound care dressings and has been applying pads over the bilateral ischial tuberosities to help heal and protect the areas. She has done a great job in preventing worse injury. - Photo Photo: - Treatment/Dressing Change Topicals/Ointments: Anasept Gel, Other (Coloplast triad) Cleanse With: Anasept Dressing Types: Mepilex w/Border - Nutrition Education Reviewed Nutrition Education: Yes Note: Pt states he has not been eating well lately. Advised that wound healing requires a high protein intake. However, due to diabetes and his renal failure, a balance needs to reviewed. He has been seen by nutrition and I will inform them of his wound care needs. - Recomendation Recomendation:: Left Ischial Tuberosity: 1. Cleanse with Anasept [place] and allow to dwell 2 minutes. 2. Pat dry using gauze. 3. Apply Triad Coloplast to area. 4. Cover with a Mepilex 4x4. Right Ischial Tuberosity: 1. Cleanse with Anasept [place] and allow to dwell 2 minutes. 2. Pat dry using gauze. 3. Apply Anasept gel to area. 4. Cover with a Mepilex 4x4. Coccyx: 1. Cleanse with Anasept [place] and allow to dwell 2 minutes. 2. Pat dry using gauze. 3. Apply Anasept gel to area. 4. Cover with a Mepilex 4x4. Change dressings daily and prn. Keep pt off back as much as possible. Can be in high fowlers for meal times only. Have pt roll side to side. When moving pt up in bed, make sure he lifts buttocks off the bed before moving up to prevent shearing. Use a draw sheet with a nursing team and Ergo nurse to help move up in bed. Once pt is getting up to the chair, have a cushion in chair at all times. Have pt do frequent position changes while seated. Maximum time up in chair is limited to 2 hours per event. Physcian/Nurse Practioner Notified: Yes Referrals: Dietary (for wound healing), Physical Therapy (to increase activity), Surgeon (to evaluate Deep tissue injury) Treatment Time - Time Total Time Spent with Patient: 80 minutes - Patient Will be Seen Weekly Treatment: daily - For: For:: 2 weeks
[2023-03-26] MEDS: Insulin Glargine 300 UNITS/3 ML PEN 40 UNITS SC (21:03)
[2023-03-26] MEDS: Tamsulosin 0.4 MG CAPCR PO (21:09)
[2023-03-26] MEDS: Pravastatin 40 MG TAB PO (21:09)
[2023-03-26] MEDS: Magnesium Oxide 400 MG TAB PO (21:09)
[2023-03-26] MEDS: Melatonin 3 MG TAB 6 MG PO (21:09)
[2023-03-27] MEDS: Gabapentin 100 MG CAP PO ×2 (00:12→20:09)
[2023-03-27 07:18] VITALS: BP 95/63; PULSE 62; RESP 18; TEMP 36.9
[2023-03-27 07:27] LABS: Abs Immature Grans 0.23 10^3/uL (0.0-0.06); Absolute Eosinophil Count 0.24 10^3/uL (0.0-0.7); Absolute Lymphocyte Count 1.45 10^3/uL (1.2-3.4); Absolute Monocyte Count 0.89 10^3/uL (0.1-0.8); Basophils % 0.5; Eosinophils % 2.2; HCT 27.2 % (40.0-50.0); HGB 8.5 g/dL (13.5-17.5); Immature Grans % 2.1; Lymphocytes % 13.1; MCH 26.6 pg (27.0-33.0); MCHC 31.3 % (32.0-36.0); MCV 85 fL (80-95); MPV 8.5 fL (8.0-11.0); Neutrophils % 74.1; Platelet Count 330 10^3/uL (130-400); RBC 3.19 10^6/uL (4.36-5.78); RDW 17.7 % (11.8-14.1); RDW-SD 53.8 fL; WBC 11.09 10^3/uL (4.4-10.8)
[2023-03-27 07:29] LABS: Absolute Basophil Count 0.06 10^3/uL (0.0-0.2); Absolute Neutrophil Count 8.22 10^3/uL (1.2-6.7)
[2023-03-27 07:39] LABS: INR 2.4 (0.9-1.1); Prothrombin Time 24.3 sec (9.3-11.0)
[2023-03-27 08:04] LABS: Anion Gap 13.7 mmol/L (3-11); BUN 76 mg/dL (7-18); C-Reactive Protein 13.06 mg/dL (0.0-0.3); CO2 18.3 mmol/L (21.0-32.0); Calcium 10.5 mg/dL (8.5-10.1); Chloride 101 mmol/L (98-107); Estimated GFR 9.87 (mL/min/1.73m2); Glucose 124 mg/dL (74-106); Potassium 3.8 mmol/L (3.5-5.1); Sodium 133 mmol/L (136-145)
[2023-03-27 08:07] LABS: CREATININE 5.4 mg/dL (0.70-1.30)
[2023-03-27 08:13] VITALS: RESP 20
[2023-03-27 08:14] LABS: Procalcitonin 0.4 ng/mL
--- NOTE | 2023-03-27 08:30 | DI.RAD_ITS ---
Exam(s) XR PORTABLE CHEST AP EXAM: XR PORTABLE CHEST AP CLINICAL HISTORY: persistent leucocytosis, ?PNA TECHNIQUE: 2D digital imaging was performed. COMPARISON: CR XR CHEST 2V PA LATERAL from 03/21/2023 FINDINGS: LUNGS: Clear. No pleural abnormality seen. HEART: Normal size. AORTA: Calcified and mildly tortuous. BONES: Degenerative changes. Soft tissues: Unremarkable. IMPRESSION: No acute findings. DATA REPOSITORY: RADIATION DOSE DELIVERED:
[2023-03-27] MEDS: metOLazone 2.5 MG TAB 5 MG PO (08:56)
[2023-03-27] MEDS: Potassium Chloride 10 MEQ CAPCR 30 MEQ PO (08:59)
[2023-03-27] MEDS: Docusate Sodium 100 MG CAP PO (09:00)
[2023-03-27] MEDS: Metoprolol CR 100 MG TABCR PO (09:00)
[2023-03-27] MEDS: Finasteride 5 MG TAB PO (09:00)
[2023-03-27] MEDS: Empaglifozin 10 MG TAB PO (09:00)
[2023-03-27] MEDS: Omeprazole 20 MG CAPCR PO (09:00)
[2023-03-27] MEDS: Insulin Aspart 300 UNITS/3 ML PEN 30 UNITS SC ×2 (09:21→12:22)
[2023-03-27] MEDS: Nystatin POWDER 60 GM JAR TP ×3 (09:23→22:02)
[2023-03-27 09:55] LABS: Bilirubin Negative (Negative); Blood Large (Negative); Glucose 250 mg/dL (Negative); Ketones Negative (Negative); Leukocyte Esterase Large (Negative); Nitrite Negative (Negative); Urobilinogen 0.2 mg/dL (Up to 0.2); pH 5.5 (5-8)
[2023-03-27 10:00] LABS: Clarity Turbid (Clear)
[2023-03-27 10:02] LABS: C & S Indicated? Yes; WBC >50 HPF (0-5)
[2023-03-27 13:36] VITALS: BP 112/71; PULSE 66; RESP 18; TEMP 37.2; O2SAT 97
[2023-03-27 14:53] VITALS: BP 110/62; PULSE 66; RESP 20; TEMP 36.8; O2SAT 95
--- NOTE | 2023-03-27 14:56 | CMPROGNOTE_ITS ---
Date of service: 03/27/23 Time of Service: 14:56 Care Management Progress Note Progress Note Text Progress Note Text: S/O: Sav is being closely monitored and treated with IV ABX. Sav is lying in bed, visiting with his when CM met with him. PT recommend's SNF for STR when medically ready and patient agrees to go to the [facility] for STR. Referral is faxed. Per provider, a deep tissue, non blanchable wound was found at his wound consult, which requires a Surgical Consult. Palliative consult is ordered for tomorrow to discuss goals of care. CM will continue to follow. A: 82 year old male admitted to [facility] on 03/21/23 for Anemia, acute respiratory failure, UTI P:?PT recommends SNF for STR. SNF referral is sent only to the [facility] at patients request. Anticipate, he will discharge to SNF for STR vs home via EMS with full [facility] services. CM will continue to follow.
[2023-03-27] MEDS: Acetaminophen 325 MG TAB PO ×2 (15:43→20:30)
[2023-03-27] MEDS: cefTRIAXone 2 GM/50 ML BAG IVPB (15:44)
[2023-03-27] MEDS: Normal Saline Flush 10 ML SYR IVP (15:44)
[2023-03-27] MEDS: Torsemide 20 MG TAB 40 MG PO (17:25)
--- NOTE | 2023-03-27 17:28 | PT.INTREAT ---
Date of service: 03/27/23 Time of Service: 11:02 PT Notes Visit Reasons: Anemia, Acute Respiratory Failure, UTI Inpatient Physical Therapy Treatment Note [facility] Date: 03/27/23 PRECAUTIONS: Fall, standard, activity as tolerated SUBJECTIVE: Patient supine in bed, agreeable to therapy, reports feeling fair to middlin' OBJECTIVE: PAIN: none reported BED MOBILITY/TRANSFERS Rolling L/R: mod assist Supine-sit: mod assist x2 Sit-supine: mod assist Sit-stand: min assist Stand-sit: contact guard Bed-Chair: not assessed Chair-bed: not assessed THEREX: bed mobility exercises to patient tolerance including bridging, rolling. Supine exercises including ankle pumps, heel slides. ASSESSMENT: Patient resting comfortably in bed at end of therapy, appears to have tolerated therapy well PLAN: continue strengthening per plan of care TREATMENT CODE/TIME: [id number] THEREX 18 minutes beginning at 10:42
--- NOTE | 2023-03-27 17:31 | PGE_ITS ---
Date of Service Date of service: 03/27/23 Time of Service: 17:31 Assessment and Plan Assessment and plan (1) Acute UTI: Status: Acute Assessment and plan: Due to klebsiella + mixed sapphire, present on admission, associated with an indwelling catheter. Continue ceftriaxone. Griffin exchanged in the ED. Procalcitonin is improving (2) Right heart failure: Status: Acute Assessment and plan: Continue diuresis w/ torsemide/metolazone + CPAP. (3) Anemia: Status: Chronic Assessment and plan: Etiology: combination of anemia of chronic disease due to CKD, iron deficiency, volume overload. S/p 2 units pRBCs on this admission. H/H improved as expected. I do think he got a little fluid overloaded with the transfusion and needs resumption of torsemide now. (4) Atrial fibrillation: Status: Chronic Assessment and plan: Rate controlled. Continue metoprolol. Resume coumadin. (5) Chronic kidney disease: Status: Chronic Assessment and plan: Cr is 5.4. Continues to make urine. Continue griffin catheter, monitor Cr while diuresing w/ torsemide + metolazone. Griffin was exchanged in the ED. 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 Has LUCAS/OHS/pulmonary hypertension. Resume torsemide, continuue metolazone. (7) Obstructive nephropathy: Status: Acute Assessment and plan: See CKD Continue tamsulosin. Chronic indwelling griffin cath. (8) Hyperlipidemia: Assessment and plan: Continue pravastatin. (9) Diabetes mellitus type 2 in obese: Assessment and plan: Continue jardiance, basal bolus insulin was adjusted to moderate SSI w/ meals. (10) LUCAS on CPAP: Assessment and plan: Continue CPAP (11) Pressure ulcer of right ischium: Status: Acute Assessment and plan: deep tissue wound, present on admission. I have asked general surgery to evaluate this. (12) DVT prophylaxis: Status: Acute Assessment and plan: Therapeutic on coumadin (13) Discharge planning issues: Status: Acute Assessment and plan: DNR/DNI Continues to require hospitalization. Agreeable to SNF if it's the [place]. Referrals are being sent. Awaiting a palliative care consult. Subjective Subjective Interval history since last seen: Mr Winkler states he is short of breath. He had two hypoglycemic episodes today. He has been insisting on dexcom being used rather than fingersticks, and I discussed with him and his how there is a 15-30 min delay in subcutaneous blood sugars as opposed to the capillary ones. They verbalized understanding, but I am not sure that they will be agreeable to fingersticks. At home, he gets 39 units of lantus at night and with dinner 20 units of aspart + SSI (for BG of 200, he would get 4 units, his thinks, but she does not remember the scale). No dizziness, CP, nausea. Will be seen by a general surgeon today for his deep tissue wound on R ischial tuberosity. Exam Narrative Exam Narrative: General: Pleasant elderly male who is somnolent, slightly more tachypneic in bed while laying flat and without the BiPAP, A&Ox3, NAD HEENT: EOMI, MMM Heart: RRR, no m/r/g Lungs: DIminished breath sounds at B bases (requires assistance to turn to let me listen to him). Abdomen: soft, nontender, nondistended Extremities: trace edema BLEs, wearing SCDS, TTP distal RLE tibial surface Objective Last Vital Signs Temp 36.8 C 03/27/23 14:53 Pulse 66 03/27/23 14:53 Resp 20 03/27/23 14:53 BP 110/62 03/27/23 14:53 Pulse Ox 95 03/27/23 14:53 Laboratory Results - last 24 hr 03/26/23 03/27/23 03/27/23 17:25 06:43 06:43 WBC RBC Hgb Hct MCV MCH MCHC RDW Plt Count MPV Immature Gran % Neutrophils % Lymphocytes % Monocytes % Eosinophils % Basophils % Nucleated RBC % Absolute Neutrophils Absolute Lymphocytes Absolute Monocytes Absolute Eosinophils Absolute Basophils PT 24.3 H INR 2.4 H Sodium 133 L Potassium 3.8 Chloride 101 Carbon Dioxide 18.3 L Anion Gap 13.7 H BUN 76 H Creatinine 5.4 H* Est GFR (CKD-EPI 2020) 9.87 Glucose 124 H Calcium 10.5 H Magnesium 2.0 C-Reactive Protein 13.06 H Procalcitonin Urine Color Urine Clarity Urine pH Ur Specific [place] Urine Protein Urine Ketones Urine Blood Urine Nitrite Urine Bilirubin Urine Urobilinogen Ur Leukocyte Esterase Urine RBC Urine WBC Ur Epithelial Cells Urine Crystals Urine Bacteria Urine Mucus Ur Culture Indicated? Urine Glucose Patient ABO/Rh O Negative Antibody Screen NEGATIVE Crossmatch See Detail 03/27/23 03/27/23 03/27/23 06:43 06:43 09:30 WBC 11.09 H RBC 3.19 L Hgb 8.5 L Hct 27.2 L MCV 85 MCH 26.6 L MCHC 31.3 L RDW 17.7 H Plt Count 330 MPV 8.5 Immature Gran % 2.1 Neutrophils % 74.1 Lymphocytes % 13.1 Monocytes % 8.0 Eosinophils % 2.2 Basophils % 0.5 Nucleated RBC % 0.0 Absolute Neutrophils 8.22 H Absolute Lymphocytes 1.45 Absolute Monocytes 0.89 H Absolute Eosinophils 0.24 Absolute Basophils 0.06 PT INR Sodium Potassium Chloride Carbon Dioxide Anion Gap BUN Creatinine Est GFR (CKD-EPI 2020) Glucose Calcium Magnesium C-Reactive Protein Procalcitonin 0.4 Urine Color Straw Urine Clarity Turbid Urine pH 5.5 Ur Specific [place] 1.020 Urine Protein 100 H Urine Ketones Negative Urine Blood Large H Urine Nitrite Negative Urine Bilirubin Negative Urine Urobilinogen 0.2 Ur Leukocyte Esterase Large H Urine RBC Not Applicable Urine WBC >50 H Ur Epithelial Cells Not Applicable Urine Crystals Not Applicable Urine Bacteria Not Applicable Urine Mucus Not Applicable Ur Culture Indicated? Yes Urine Glucose 250 H Patient ABO/Rh Antibody Screen Crossmatch Objective Narrative Objective Narrative: CXR: No acute? findings. Time Spent with Patient Time Spent with Patient: 35-49 minutes Time was spent: preparing to see the patient(eg.review tests), obtaining and/or reviewing separately otained hiistory, ordering medications,tests, procedures, referring, communicating with other health health careers instructor, indepentently interpreting results, counseling the patient and care coordination
--- NOTE | 2023-03-27 17:35 | PT.INNT ---
Date of service: 03/27/23 Time of Service: 16:06 PT Notes Visit Reasons: Anemia, Acute Respiratory Failure, UTI Patient reports not feeling up for therapy, RN comes in to check glucose because CGM is reading low. Patient determined to have low blood glucose. No therapy this afternoon.
--- NOTE | 2023-03-27 18:32 | SCONE_ITS ---
Date of service: 03/27/23 Time of Service: 18:33 Assessment and Plan Assessment and plan (1) Pressure ulcer of right ischium: Status: Acute Assessment and plan: In the current state, I do not think the wounds warrant surgical debridement. I would continue with a pressure offloading strategy as you are doing. I think a hydrogel based solution like Anasept, or SkinTegrity are fine to use. I would cleanse and dress the wounds twice daily if possible. They should be dressed with a soft mildly occlusive dressing like Mepilex. History of Present Illness History of Present Illness Chief Complaint: Pressure ulcers Narrative: Sav is an 82-year-old male with medical comorbidities that include chronic kidney disease, diabetes, and heart failure. Over the past several weeks he has become increasingly immobile, receives most of his care at home from his and other support assistance. She reports that he basically has been bedbound for several weeks. He is admitted to the hospital with a urinary tract infection, and perhaps some mild exacerbation of CHF. He seems to be responding favorably to antibiotics and diuretic therapies. I am asked to see him for dec ubitus ulcers on his ischium and sacrum. The patient offers no specific complaints for it. His tells me that the wounds have been present for several weeks. She tries to assist him with positioning in bed, and she changes the dressings at least daily at the recommendation from her local pharmacist [facility] All Active Problems (Updated 03/27/23 @ 17:42 by Anali Miller MD) Pressure ulcer of right ischium (Acute) Discharge planning issues (Acute) DVT prophylaxis (Acute) Fever (Acute) Chronic indwelling [place] catheter (Acute) Symptomatic anemia (Acute) Acute renal failure (Acute) Acute UTI (Acute) Diabetes mellitus (Chronic) Atrial fibrillation (Chronic) on coumadin Chronic kidney disease (Chronic) 2020- borderline stage 4 Venous insufficiency (chronic) (peripheral) (Acute) Nail dystrophy (Acute) COVID-19 (Acute ~08/05/22) Thumb pain (Acute) Right heart failure (Acute) Urinary retention (Acute) 11/2021, ultrasound shows significant pretty and post void residual- minimal response to voiding Kidney stones (Chronic) Longstanding history of multiple stones 11/2021 ultrasound showed multiple stones in kidney, 1 stone possibly in right ureter Anemia (Chronic) Chronic mild anemia, associated with CKD Obstructive sleep apnea (Chronic) cpap Acute on chronic heart failure with preserved ejection fraction (Acute) Hives (Acute) Obesity (Acute 02/11/13) Obstructive nephropathy (Acute) Moderate pulmonary arterial systolic hypertension (Chronic) Chronic anticoagulation (Chronic) Polyp of colon (Chronic) Rosacea (Chronic) Constipation (Chronic) CHF (congestive heart failure) (Chronic) Medical History Atrial fibrillation BPH (benign prostatic hyperplasia) Diabetes mellitus type 2 in obese Essential hypertension, benign GERD (gastroesophageal reflux disease) Hyperlipidemia Nephrolithiasis Obesity hypoventilation syndrome LUCAS on CPAP Palliative care patient Surgical History Cholecystectomy (~1985) Colonoscopy - MAC (~2002) Replacement of total knee joint B/L Tonsillectomy and adenoidectomy Family History Mother Diabetes Heart disease Father Neoplasm STOMACH Brother Neoplasm Brother No problems noted. Daughter No problems noted. Social History Smoking/Tobacco Use Status: Never Second Hand Exposure: No Smoking risk assessment performed?: Yes Alcohol Intake: current Alcohol Intake frequency: holidays/special occasions only Drug use: Never Substance use type: does not use Caregiver/Support person: Yes Household members: spouse Housing: house Communication Needs: Hard of Hearing Do you need help understanding health information?: Often Pets and animals: No Sexually active: No What is your relationship status?: How often do you talk on the phone with friends or family?: decline to answer How often do you get together with friends or relatives?: decline to answer How often do you attend buddhism or jehovah's witness services?: decline to answer Do you belong to any clubs or organized social groups?: decline to answer Panel score (0-1 are the most socially isolated patients): 1 What type of physical activity do you participate in: walking Duration: < 15 minutes/day Frequency: daily Special amor needs: No Do you feel safe at home: Yes Do you feel safe in your relationship?: Yes Exam Skin Other: There are stage I decubitus ulcers on the right and left ischium, as well as a small skin tear over the sacrococcygeal area. The decubitus ulcers are generally stage I deep tissue wounds. The one on the right is a little worse. There is no fluctuance. There is mild desquamation of the epithelium over the center portion of the wounds. They are a little bit tender. They are not foul- smelling. Results Last Vital Signs Temp 98.2 F 03/27/23 14:53 Pulse 66 03/27/23 14:53 Resp 20 03/27/23 14:53 BP 110/62 03/27/23 14:53 Pulse Ox 95 03/27/23 14:53 Labs 03/27/23 06:43 03/27/23 06:43 Labs: Laboratory Results - last 24 hr 03/26/23 03/27/23 03/27/23 17:25 06:43 06:43 WBC RBC Hgb Hct MCV MCH MCHC RDW Plt Count MPV Immature Gran % Neutrophils % Lymphocytes % Monocytes % Eosinophils % Basophils % Nucleated RBC % Absolute Neutrophils Absolute Lymphocytes Absolute Monocytes Absolute Eosinophils Absolute Basophils PT 24.3 H INR 2.4 H Sodium 133 L Potassium 3.8 Chloride 101 Carbon Dioxide 18.3 L Anion Gap 13.7 H BUN 76 H Creatinine 5.4 H* Est GFR (CKD-EPI 2020) 9.87 Glucose 124 H Calcium 10.5 H Magnesium 2.0 C-Reactive Protein 13.06 H Procalcitonin Urine Color Urine Clarity Urine pH Ur Specific [place] Urine Protein Urine Ketones Urine Blood Urine Nitrite Urine Bilirubin Urine Urobilinogen Ur Leukocyte Esterase Urine RBC Urine WBC Ur Epithelial Cells Urine Crystals Urine Bacteria Urine Mucus Ur Culture Indicated? Urine Glucose Patient ABO/Rh O Negative Antibody Screen NEGATIVE Crossmatch See Detail 03/27/23 03/27/23 03/27/23 06:43 06:43 09:30 WBC 11.09 H RBC 3.19 L Hgb 8.5 L Hct 27.2 L MCV 85 MCH 26.6 L MCHC 31.3 L RDW 17.7 H Plt Count 330 MPV 8.5 Immature Gran % 2.1 Neutrophils % 74.1 Lymphocytes % 13.1 Monocytes % 8.0 Eosinophils % 2.2 Basophils % 0.5 Nucleated RBC % 0.0 Absolute Neutrophils 8.22 H Absolute Lymphocytes 1.45 Absolute Monocytes 0.89 H Absolute Eosinophils 0.24 Absolute Basophils 0.06 PT INR Sodium Potassium Chloride Carbon Dioxide Anion Gap BUN Creatinine Est GFR (CKD-EPI 2020) Glucose Calcium Magnesium C-Reactive Protein Procalcitonin 0.4 Urine Color Straw Urine Clarity Turbid Urine pH 5.5 Ur Specific [place] 1.020 Urine Protein 100 H Urine Ketones Negative Urine Blood Large H Urine Nitrite Negative Urine Bilirubin Negative Urine Urobilinogen 0.2 Ur Leukocyte Esterase Large H Urine RBC Not Applicable Urine WBC >50 H Ur Epithelial Cells Not Applicable Urine Crystals Not Applicable Urine Bacteria Not Applicable Urine Mucus Not Applicable Ur Culture Indicated? Yes Urine Glucose 250 H Patient ABO/Rh Antibody Screen Crossmatch
[2023-03-27] MEDS: Acetaminophen 325 MG TAB 650 MG PO (20:09)
[2023-03-27] MEDS: Pravastatin 40 MG TAB PO (20:09)
[2023-03-27] MEDS: Tamsulosin 0.4 MG CAPCR PO (20:09)
[2023-03-27] MEDS: Magnesium Oxide 400 MG TAB PO (20:09)
[2023-03-27] MEDS: Melatonin 3 MG TAB 6 MG PO (20:09)
[2023-03-27] MEDS: Insulin Glargine 300 UNITS/3 ML PEN 40 UNITS SC (20:10)
[2023-03-27] MEDS: Warfarin 4 MG TAB 2 MG PO (22:01)
[2023-03-27] MEDS: Insulin Aspart 300 UNITS/3 ML PEN SC (22:02)
[2023-03-28 00:38] VITALS: BP 99/60; PULSE 74; RESP 24; TEMP 36.9; O2SAT 96
[2023-03-28 06:32] VITALS: BP 108/62; PULSE 60; RESP 20; TEMP 36.5; O2SAT 98
[2023-03-28 06:59] LABS: Abs Immature Grans 0.18 10^3/uL (0.0-0.06); Absolute Basophil Count 0.04 10^3/uL (0.0-0.2); Absolute Eosinophil Count 0.24 10^3/uL (0.0-0.7); Absolute Lymphocyte Count 1.34 10^3/uL (1.2-3.4); Basophils % 0.4; Eosinophils % 2.4; HCT 26.1 % (40.0-50.0); Immature Grans % 1.8; Lymphocytes % 13.3; MCH 26.6 pg (27.0-33.0); MCHC 30.7 % (32.0-36.0); MCV 87 fL (80-95); MPV 8.7 fL (8.0-11.0); Monocytes % 9.9; Neutrophils % 72.2; Platelet Count 276 10^3/uL (130-400); RBC 3.01 10^6/uL (4.36-5.78); RDW 17.7 % (11.8-14.1); RDW-SD 55.4 fL
[2023-03-28 07:08] LABS: INR 2.2 (0.9-1.1); Prothrombin Time 21.9 sec (9.3-11.0)
[2023-03-28 07:18] LABS: Anion Gap 13.5 mmol/L (3-11); BUN 79 mg/dL (7-18); CO2 20.5 mmol/L (21.0-32.0); Calcium 9.4 mg/dL (8.5-10.1); Chloride 100 mmol/L (98-107); Estimated GFR 10.09 (mL/min/1.73m2); Glucose 164 mg/dL (74-106); Magnesium 1.8 mg/dL (1.8-2.4); Potassium 3.7 mmol/L (3.5-5.1); Sodium 134 mmol/L (136-145)
[2023-03-28 07:22] LABS: CREATININE 5.3 mg/dL (0.70-1.30)
[2023-03-28] MEDS: Docusate Sodium 100 MG CAP PO (08:54)
[2023-03-28] MEDS: Metoprolol CR 100 MG TABCR PO (08:54)
[2023-03-28] MEDS: metOLazone 2.5 MG TAB 5 MG PO (08:54)
[2023-03-28] MEDS: Polyethylene Glycol 3350 17 GM PACKET PO (08:54)
[2023-03-28] MEDS: Finasteride 5 MG TAB PO (08:54)
[2023-03-28] MEDS: Potassium Chloride 10 MEQ CAPCR 30 MEQ PO (08:54)
[2023-03-28] MEDS: Torsemide 20 MG TAB 40 MG PO (08:55)
[2023-03-28] MEDS: Empaglifozin 10 MG TAB PO (08:55)
[2023-03-28] MEDS: Omeprazole 20 MG CAPCR PO (08:55)
[2023-03-28] MEDS: Insulin Aspart 300 UNITS/3 ML PEN SC ×4 (08:55→22:15)
[2023-03-28 08:58] VITALS: BP 110/68; PULSE 87
[2023-03-28] MEDS: Nystatin POWDER 60 GM JAR TP ×2 (08:59→14:31)
--- NOTE | 2023-03-28 09:24 | CMPROGNOTE_ITS ---
Date of service: 03/28/23 Time of Service: 09:29 Care Management Progress Note Progress Note Text Progress Note Text: S/O: Sav was lying in bed when CM met with him. His Lashawn was visiting at the time. They both asked about bed availability at the [facility]. Sav is agreeable to going to a SNF for short term rehab, but only if it is close by. [facility] has been closed to admissions for quite some time, so The [facility] would be the only option. CM contacted the [facility] and is waiting to hear back. Sav had a urine culture done yesterday which is growing yeast, He is afebrile and his vital signs are stable.Sav has been working with PT, mostly doing exercises. He was only able to ambulate about 5 feet yesterday and did not ambulate at all today. A: 82 year old male admitted to [facility] on 03/21/23 for Anemia, acute respiratory failure, UTI P:?PT recommends SNF for STR, which Sav has consistently refused. yesterday he finally agreed to go for a short time if the facility id close by. A referral was sent to the [facility] and review is pending. If there is no bed offer, anticipate he will discharge home via private vehicle with (with Lift Assist, if needed). Resume [facility] RN services, add PT/OT/OPTICAL LENS MANUFACTURING TECH.? CM will continue to follow and support discharge needs.
--- NOTE | 2023-03-28 10:46 | W.INDIABCONS ---
Date of service: 03/28/23 Time of Service: 10:46 Diabetes Inpatient Consult Reason for Visit: dm2 DESCRIPTION/ASSESSMENT: Mr. Winkler admitted with complicated UTI, being bedbound last couple of weeks and now with pressure ulcer of right ischium. Long standing hx of DM2, most recent A1C (12/11/22) 9.3% indicates poor glycemic control. Has dexcom CGM. Home Dm meds include 25 mg Jardiance qd, 39 units glargine q hs and novolog at meals. PO intake has been excellent since admission. Pt asleep at time of visit. Recommend outpatient diabetes self management education referral at time of discharge. In view of increased nutrient needs for optimal healing of pressure wounds, recommend liquid protein 1 oz TID, along with MVI, 500mg VIt C BID and 220 mg Zinc Sulfate x 14 days. Estimated Needs: (based on adjusted body weight of 101 kg): 2531 kcal, 130 g protein, 2500 ml fluid INTERVENTION: recommend liquid protein 1 oz TID, along with MVI, 500mg VIt C BID and 220 mg Zinc Sulfate x 14 days. PLAN: po intake, labs, weight Time Spent in Nutritional Counseling and Treatment: 0
--- NOTE | 2023-03-28 16:25 | PT.INTREAT ---
Date of service: 03/28/23 Time of Service: 08:44 PT Notes Visit Reasons: Anemia, Acute Respiratory Failure, UTI Inpatient Physical Therapy Treatment Note [facility] Date: 03/28/23 PRECAUTIONS: Fall, standard, activity as tolerated. SUBJECTIVE: Patient reports feeling fair to middlin'. RN requests help getting patient up to commode OBJECTIVE: PAIN: None reported BED MOBILITY/TRANSFERS Rolling L/R: mod assist Supine-sit: max assist Sit-supine: not assessed Sit-stand: min assist Stand-sit: contact guard Bed-Chair: contact guard Chair-bed: contact guard GAIT Assistive Device: front wheeled walker Weight bearing: full Assist: contact guard Distance: 4 feet Deviation: reduced stride length, reduced step height, very anxious about falling. Verbal cues to line up correctly, reach back for chair. ASSESSMENT: Patient seated on commode, RN present at end of treatment PLAN: continue strengthening per plan of care TREATMENT CODE/TIME: 56611 THERACT 15 minutes beginning at 8:44
[2023-03-28] MEDS: cefTRIAXone 2 GM/50 ML BAG IVPB (16:38)
[2023-03-28] MEDS: Normal Saline Flush 10 ML SYR IVP (16:38)
[2023-03-28 17:44] VITALS: RESP 20
[2023-03-28] MEDS: Magnesium Oxide 400 MG TAB PO (20:25)
[2023-03-28] MEDS: Pravastatin 40 MG TAB PO (20:25)
[2023-03-28] MEDS: Tamsulosin 0.4 MG CAPCR PO (20:25)
[2023-03-28] MEDS: Gabapentin 100 MG CAP PO (20:25)
[2023-03-28] MEDS: Melatonin 3 MG TAB 6 MG PO (20:26)
[2023-03-28] MEDS: Insulin Glargine 300 UNITS/3 ML PEN 40 UNITS SC (22:16)
[2023-03-28 23:55] VITALS: BP 112/68; PULSE 68; RESP 18; TEMP 37; O2SAT 96
[2023-03-29 07:00] LABS: Abs Immature Grans 0.14 10^3/uL (0.0-0.06); Absolute Basophil Count 0.04 10^3/uL (0.0-0.2); Absolute Eosinophil Count 0.22 10^3/uL (0.0-0.7); Absolute Lymphocyte Count 1.46 10^3/uL (1.2-3.4); Absolute Monocyte Count 1.05 10^3/uL (0.1-0.8); Basophils % 0.4; Eosinophils % 2.1; HCT 27.1 % (40.0-50.0); HGB 8.4 g/dL (13.5-17.5); Immature Grans % 1.4; Lymphocytes % 14.2; MCH 26.5 pg (27.0-33.0); MCV 86 fL (80-95); MPV 8.6 fL (8.0-11.0); Monocytes % 10.2; Neutrophils % 71.7; Platelet Count 306 10^3/uL (130-400); RBC 3.17 10^6/uL (4.36-5.78); RDW 17.5 % (11.8-14.1); RDW-SD 53.8 fL; WBC 10.31 10^3/uL (4.4-10.8)
[2023-03-29 07:35] LABS: Anion Gap 14.9 mmol/L (3-11); C-Reactive Protein 14.32 mg/dL (0.0-0.3); CO2 19.1 mmol/L (21.0-32.0); Calcium 10.1 mg/dL (8.5-10.1); Chloride 98 mmol/L (98-107); Estimated GFR 9.25 (mL/min/1.73m2); Glucose 192 mg/dL (74-106); Magnesium 2.1 mg/dL (1.8-2.4); Potassium 3.7 mmol/L (3.5-5.1); Sodium 132 mmol/L (136-145)
[2023-03-29 07:40] VITALS: BP 105/69; PULSE 80; RESP 20; TEMP 36.9; O2SAT 96
[2023-03-29 07:56] LABS: BUN 86 mg/dL (7-18); CREATININE 5.7 mg/dL (0.70-1.30)
[2023-03-29 07:57] LABS: Procalcitonin 0.4 ng/mL
[2023-03-29 08:02] LABS: Prothrombin Time 20.2 sec (9.3-11.0)
[2023-03-29] MEDS: Docusate Sodium 100 MG CAP PO (09:05)
[2023-03-29] MEDS: Metoprolol CR 100 MG TABCR PO (09:05)
[2023-03-29] MEDS: Empaglifozin 10 MG TAB PO (09:05)
[2023-03-29] MEDS: Omeprazole 20 MG CAPCR PO (09:05)
[2023-03-29] MEDS: Finasteride 5 MG TAB PO (09:05)
[2023-03-29] MEDS: Insulin Aspart 300 UNITS/3 ML PEN SC ×5 (09:05→21:22)
[2023-03-29] MEDS: Fluconazole 100 MG TAB PO (09:05)
[2023-03-29] MEDS: Potassium Chloride 10 MEQ CAPCR 30 MEQ PO (09:05)
[2023-03-29] MEDS: Nystatin POWDER 60 GM JAR TP ×2 (09:12→14:03)
[2023-03-29] MEDS: Polyethylene Glycol 3350 17 GM PACKET PO (09:13)
[2023-03-29] MEDS: Torsemide 20 MG TAB 40 MG PO (09:21)
[2023-03-29] MEDS: metOLazone 2.5 MG TAB 5 MG PO (09:21)
--- NOTE | 2023-03-29 09:58 | CMPROGNOTE_ITS ---
Date of service: 03/29/23 Time of Service: 09:58 Care Management Progress Note Progress Note Text Progress Note Text: S/O: Sav was lying in bed when CM met with him. His Lashawn was visiting at the time. Sav is agreeable to going to a SNF for STR (but only if facility is close by.) [facility] referral was faxed, bed offer is made and accepted on 03/29/23 (pending Prior Auth) for Saturday. Sav has been working with PT. CM will follow. A: 82 year old male admitted to [facility] on 03[facility]23 for Anemia, acute respiratory failure, UTI P:?PT recommendation is SNF for STR, A referral was sent to the [facility], bed offer is made and pt accepted, pending Prior Auth for Saturday.. If there is no bed offer, anticipate he will discharge home via EMS vs private vehicle with (with Lift Assist). Resume [facility] [place] RN services, add PT/OT/FAMILY RESOURCE MANAGEMENT SPECIALIST.? CM will continue to follow and support discharge needs.
[2023-03-29] MEDS: Lidocaine 2% Jelly 11 ML SYR UR (14:03)
--- NOTE | 2023-03-29 14:46 | PT.INTREAT ---
Date of service: 03/29/23 Time of Service: 10:16 PT Notes Visit Reasons: Anemia, Acute Respiratory Failure, UTI Inpatient Physical Therapy Treatment Note [facility] Date: 03/29/23 PRECAUTIONS:Fall, standard, activity as tolerated. SUBJECTIVE: Patient supine in bed, agreeable to therapy. present. OBJECTIVE: PAIN: none reported BED MOBILITY/TRANSFERS Rolling L/R: min assist Supine-sit: mod assist with Pull Me Up device Sit-supine: modified independent with leg customer support agent, extra time. Sit-stand: Min assist of 2 Stand-sit: contact guard Bed-Chair: contact guard Chair-bed: contact guard GAIT Assistive Device: front wheeled walker or parallel bars Weight bearing: full Assist: contact guard with frequent verbal reassurance Distance: 5 feet x3 Deviation: Reduced step height, reduced step length, stooped posture, very anxious, becomes short of breath with exertion ASSESSMENT: Patient sitting in recliner at end of therapy, comfortable, call mcneal within reach, present. Tolerated therapy well. PLAN: Continue strengthening per plan of care TREATMENT CODE/TIME: 94114 Ther Ex 17, 12144 Ther Act 30, 16051 Gait 30 beginning at 10:16
--- NOTE | 2023-03-29 15:24 | W.PM.PROGNOT ---
Date of Service Date of service: 03/28/23 Time of Service: 18:00 Assessment and Plan Assessment and plan (1) Acute UTI: Status: Acute Assessment and plan: Due to klebsiella + mixed sapphire, present on admission, associated with an indwelling catheter. Continue ceftriaxone. Griffin exchanged in the ED. Procalcitonin is improving (2) Right heart failure: Status: Acute Assessment and plan: Continue diuresis w/ torsemide/metolazone + CPAP. (3) Anemia: Status: Chronic Assessment and plan: Etiology: combination of anemia of chronic disease due to CKD, iron deficiency, volume overload. S/p 2 units pRBCs on this admission. H/H improved as expected. I do think he got a little fluid overloaded with the transfusion. (4) Atrial fibrillation: Status: Chronic Assessment and plan: Rate controlled. Continue metoprolol. Continue coumadin. INR 2.0 (5) Chronic kidney disease: Status: Chronic Assessment and plan: Monitor Cr with resumption of diuresis. Continues to make urine. Continue griffin catheter, monitor Cr while diuresing w/ torsemide + metolazone. Griffin was exchanged in the ED. 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 Has LUCAS/OHS/pulmonary hypertension. Continue torsemide, continuue metolazone. (7) Obstructive nephropathy: Status: Acute Assessment and plan: See CKD Continue tamsulosin. Chronic indwelling griffin cath. (8) Hyperlipidemia: Assessment and plan: Continue pravastatin. (9) Diabetes mellitus type 2 in obese: Assessment and plan: Continue jardiance, basal bolus insulin was adjusted to moderate SSI w/ meals. (10) LUCAS on CPAP: Assessment and plan: Continue CPAP (11) Pressure ulcer of right ischium: Status: Acute Assessment and plan: deep tissue wound, present on admission. General surgery recommends wound care; no surgical intervention needed. (12) DVT prophylaxis: Status: Acute Assessment and plan: Therapeutic on coumadin (13) Discharge planning issues: Status: Acute Assessment and plan: DNR/DNI Continues to require hospitalization. Awaiting bed at the [facility] on Saturday. Subjective Subjective Interval history since last seen: Mr Winkler is feeling better. He was reported a stiff left ankle in the morning but it got better on its own by the afternoon. Denied dizziness, chest pain, shortness of breath, nausea Exam Narrative Exam Narrative: General: Pleasant elderly male who is awake, laying comfortably in bed A&Ox3, NAD HEENT: EOMI, MMM Heart: RRR, no m/r/g Lungs: CTAB Abdomen: soft, nontender, nondistended Extremities: no edema BLEs, wearing SCDS, TTP distal BLE tibial surface, no erythema of L ankle, preserved L ankle Objective Last Vital Signs Temp 36.9 C 03/29/23 07:40 Pulse 80 03/29/23 07:40 Resp 20 03/29/23 07:40 BP 105/69 03/29/23 07:40 Pulse Ox 96 03/29/23 07:40 Laboratory Results - last 24 hr 03/29/23 03/29/23 03/29/23 06:42 06:42 06:42 WBC 10.31 RBC 3.17 L Hgb 8.4 L Hct 27.1 L MCV 86 MCH 26.5 L MCHC 31.0 L RDW 17.5 H Plt Count 306 MPV 8.6 Immature Gran % 1.4 Neutrophils % 71.7 Lymphocytes % 14.2 Monocytes % 10.2 Eosinophils % 2.1 Basophils % 0.4 Nucleated RBC % 0.0 Absolute Neutrophils 7.40 H Absolute Lymphocytes 1.46 Absolute Monocytes 1.05 H Absolute Eosinophils 0.22 Absolute Basophils 0.04 PT INR Sodium 132 L Potassium 3.7 Chloride 98 Carbon Dioxide 19.1 L Anion Gap 14.9 H BUN 86 H* Creatinine 5.7 H* Est GFR (CKD-EPI 2020) 9.25 Glucose 192 H Calcium 10.1 Magnesium 2.1 C-Reactive Protein 14.32 H Procalcitonin 0.4 03/29/23 06:42 WBC RBC Hgb Hct MCV MCH MCHC RDW Plt Count MPV Immature Gran % Neutrophils % Lymphocytes % Monocytes % Eosinophils % Basophils % Nucleated RBC % Absolute Neutrophils Absolute Lymphocytes Absolute Monocytes Absolute Eosinophils Absolute Basophils PT 20.2 H INR 2.0 H Sodium Potassium Chloride Carbon Dioxide Anion Gap BUN Creatinine Est GFR (CKD-EPI 2020) Glucose Calcium Magnesium C-Reactive Protein Procalcitonin Time Spent with Patient Time Spent with Patient: 25-34 minutes Time was spent: preparing to see the patient(eg.review tests), obtaining and/or reviewing separately otained hiistory, ordering medications,tests, procedures, referring, communicating with other health healthcare management consultant, indepentently interpreting results, counseling the patient and care coordination
[2023-03-29 15:27] VITALS: BP 105/66; PULSE 72; RESP 16; TEMP 37; O2SAT 100
--- NOTE | 2023-03-29 15:28 | PT.INPN ---
PT Notes Visit Reasons: Anemia, Acute Respiratory Failure, UTI Inpatient Physical Therapy Progress Note Treatment Dates: 03/23/23 - 03/29/2023 Referring Doctor:? Mor Adames,? PT Orders: PT CONSULT: Eval/Treat Precautions: Fall. Standard.? Activity as tolerated. Fearful of falling. Patient Profile/Admitting Diagnosis:? Patient is a 82-year-old male who presented to the ED on 03/21/2023 due to 5 days worth of shortness of breath and is admitted admitted for the management of atrial fibrillation, chronic kidney disease, right-sided heart failure, anemia, moderate pulmonary arterial systolic hypertension, obstructive neuropathy, hyperlipidemia, type II DM, and LUCAS. He's participated in skilled PT intervention for 7 days, with anticipated discharge to SNF once stable. PMHX: All Active Problems? Fever (Acute) Chronic indwelling Knox catheter (Acute) Symptomatic anemia (Acute) Acute renal failure (Acute) Acute UTI (Acute) Diabetes mellitus (Chronic) Atrial fibrillation (Chronic) on coumadin Chronic kidney disease (Chronic) 2020- borderline stage 4 Venous insufficiency (chronic) (peripheral) (Acute) Nail dystrophy (Acute) COVID-19 (Acute ~08/05/22) Thumb pain (Acute) Right heart failure (Acute) Urinary retention (Acute) 11/2021, ultrasound shows significant pretty and post void residual- minimal response to voiding Kidney stones (Chronic) Longstanding history of multiple stones 11/2021 ultrasound showed multiple stones in kidney, 1 stone possibly in right ureter Anemia (Chronic) Chronic mild anemia, associated with CKD Obstructive sleep apnea (Chronic) cpapAcute on chronic heart failure with preserved ejection fraction (Acute) Hives (Acute) Obesity (Acute 02/11/13) Obstructive nephropathy (Acute) Moderate pulmonary arterial systolic hypertension (Chronic) Chronic anticoagulation (Chronic) Polyp of colon (Chronic) Rosacea (Chronic) Constipation (Chronic) CHF (congestive heart failure) (Chronic) Medical History? Atrial fibrillation BPH (benign prostatic hyperplasia) Diabetes mellitus type 2 in obese Essential hypertension, benign GERD (gastroesophageal reflux disease) Hyperlipidemia Nephrolithiasis Obesity hypoventilation syndrome LUCAS on CPAP Palliative care patient Surgical History? Cholecystectomy (~1985) Colonoscopy - MAC (~2002) Replacement of total knee joint B/L Tonsillectomy and adenoidectomy Social History/Home Situation: Patient lives with Lashawn in a 1 floor house in [facility] with 2 steps to enter, no rails.?? 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 They have one supportive daughter who lives locally.? states that she uses a device that she holds up to him so that he can pull on it to sit up in bed.? She adds that he has walked for over a week now due to weakness,? pain in B knees and fearfulness of falling.? Equipment Owned/DME: Bed that has changeable angles at the head and the knee but is not able to move up nor down Motorized wheelchair FWW SPC Subjective:? Sav reports that he is extremely fatigued after an intensive PT session earlier today. States that he is having a hard time staying awake. He declines sitting up or transferring, but is agreeable to reassessment in bed. Objective:? General Observation: Supine in bed. Mental Status: Alert and oriented x 4 Pain: Generalized pain at 7-8/10 ROM: Right Upper Extremity: ? Shoulder Flexion 90 degrees. Shoulder abduction about 45 degrees. Elbow flexion WFL. Wrist flexion WFL. Functional opening and closing of hand WFL. Left Upper Extremity:? Shoulder Flexion 90 degrees. Shoulder abduction about 45 degrees. Elbow flexion WFL. Wrist flexion WFL. Functional opening and closing of hand WFL. Right Lower Extremity: Hip flexion up to 90 degrees. Hip abduction WFL. Knee flexion 0-100. Ankle dorsiflexion WFL. Ankle plantarflexion WFL. Left Lower Extremity: Hip flexion WFL. Hip abduction WFL. Knee flexion WFL. Ankle dorsiflexion WFL. Ankle plantarflexion WFL. Strength: Right Upper Extremity: Shoulder flexors 3-/5. Shoulder abductors 3-/5. Elbow flexors 4+/5. Elbow extensors 4+/5. Public Speaking Professor strong. Left Upper Extremity: Shoulder flexors 3-/5. Shoulder abductors 3-/5. Elbow flexors 4+/5. Elbow extensors 4+/5. Public Speaking Professor strong. Right Lower Extremity: Hip flexors 3-/5. Hip abductors 4/5. Knee flexors 3-/5. Knee extensors 4-/5. Ankle dorsiflexors 4-/5. Ankle plantarflexors 4-/5. Left Lower Extremity:Hip flexors 3-/5. Hip abductors 4/5. Knee flexors3-/5. Knee extensors 4-/5. Ankle dorsiflexors 4-/5. Ankle plantarflexors 4-/5. BED MOBILITY/TRANSFERS *declines transfers this afternoon, however demonstrated the following mobility in this morning's session:? Rolling L/R: min assist Supine-sit: mod assist with Pull Me Up device? Sit-supine: modified independent with leg trommel tender, extra time.? Sit-stand: Min assist of 2? Stand-sit: contact guard? Bed-Chair: contact guard? Chair-bed: contact guard ? GAIT? *declines ambulation this afternoon, however demonstrated the following mobility in this morning's session:? Assistive Device: front wheeled walker or parallel bars ? Weight bearing: full Assist: contact guard with frequent verbal reassurance? Distance:? 5 feet x3 ? Deviation: Reduced step height, reduced step length, stooped posture, very anxious, becomes short of breath with exertion? Balance:? Static Sitting: Good Dynamic Sitting: Good Static Standing: Fair Dynamic Standing: Poor? Informed Consent/Education:? Patient instructed in purpose of PT consult and plan of care.? Patient was educated about about treatment frequency in order to maximize functional mobility performance while reducing onset of fatigue.? Treatment: Assessment of strength and mobility as above Discussion regarding treatment goals and planning SLR x 2 right (d/c due to pain in right knee), x3 left due to fatigue Ankle pumps x 10 Assessment:? Patient is a 82-year-old male who presented to the ED on 03/21/2023 due to 5 days worth of shortness of breath and is admitted admitted for the management of atrial fibrillation, chronic kidney disease, right-sided heart failure, anemia, moderate pulmonary arterial systolic hypertension, obstructive neuropathy, hyperlipidemia, type II DM, and LUCAS. He's been participating in skilled PT intervention, with slow improvements in mobility and independence. He requires continued rehabilitation during his acute care stay, and is appropriate for transition to SNF for continued rehabilitation once medically stable. Goals: Goals X1 week 1. Supine-Sit contact guard assist (progressing toward) 2. Sit-Supine contact guard assist(progressing toward) 3. Sit-Stand contact guard assist(progressing toward) 4. Stand-Sit contact guard assist with FWW (met) 5. Bed-Chair contact guard assist with FWW (progressing toward) 6. Chair-Bed contact guard assist with FWW(progressing toward) 7. Contact guard assist gait on level surface with use of FWW for at least 30 feet without report of pain nor dyspnea(progressing toward) 8. Contact guard assist stair negotiation while holding onto bilateral rails for at least 3 steps without report of pain nor dyspnea(progressing toward) PLAN OF CARE/TREATMENT PLAN: Continue 1x/day, 7 days/week x 1 week. Plan of care has been reviewed with the TECHNOLOGY EDUCATION INSTRUCTOR providing the service under Physical Therapy direction. Pre-medicate for pain. Improve standing balance and tolerance. Progress ambulation distance as tolerated with wheelchair follow as needed. Initiate seated level strengthening exercises to B UE/LE. Facilitate balance skills to reduce fall risk. Deep breathing exercises in between activities to reduce fatigue. DISCHARGE RECOMMENDATIONS: [] ? Home with no services [] [] ? Home with services [specify] [] ? Home with outpatient PT [] [X] ? SNF for continued rehabilitation.? Patient will benefit from care home facility placement for continued skilled physical therapy services in order to progress mobility level, strength, and balance in preparation for a safe discharge to home. [] ? Guitar Repair Technician Care [] [] ? SNF versus LTC based on ability to participate and progress [] TREATMENT CODE/TIME: 99461 x 21 minutes 3:10-3:31 Thank you for the opportunity to participate in the care of this patient. Rhonda Porter PT, DPT [facility] [place], [place]
[2023-03-29] MEDS: cefTRIAXone 2 GM/50 ML BAG IVPB (17:02)
--- NOTE | 2023-03-29 19:23 | PGE_ITS ---
Date of Service Date of service: 03/29/23 Time of Service: 19:23 Assessment and Plan Assessment and plan (1) Acute UTI: Status: Acute Assessment and plan: Due to klebsiella + mixed sapphire and now also yeast, present on admission, associated with an indwelling catheter. Continue ceftriaxone. Add fluconazole. Griffin exchanged again today. (2) Right heart failure: Status: Acute Assessment and plan: Continue diuresis w/ torsemide/metolazone + CPAP. (3) Anemia: Status: Chronic Assessment and plan: Etiology: combination of anemia of chronic disease due to CKD, iron deficiency, volume overload. S/p 2 units pRBCs on this admission. H/H improved as expected. I do think he got a little fluid overloaded with the transfusion. (4) Atrial fibrillation: Status: Chronic Assessment and plan: Rate controlled. Continue metoprolol. Continue coumadin. INR 2.0 (5) Chronic kidney disease: Status: Chronic Assessment and plan: Monitor Cr with resumption of diuresis. Continues to make urine. Continue griffin catheter, monitor Cr while diuresing w/ torsemide + metolazone. Griffin was exchanged in the ED. 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 Has LUCAS/OHS/pulmonary hypertension. Continue torsemide, continuue metolazone. (7) Obstructive nephropathy: Status: Acute Assessment and plan: See CKD Continue tamsulosin. Chronic indwelling griffin cath. (8) Hyperlipidemia: Assessment and plan: Continue pravastatin. (9) Diabetes mellitus type 2 in obese: Assessment and plan: Continue basal bolus insulin was adjusted to moderate SSI w/ meals. Jardiance d/c'ed due to worsening risk of UTIs, including fungal UTis. (10) LUCAS on CPAP: Assessment and plan: Continue CPAP (11) Pressure ulcer of right ischium: Status: Acute Assessment and plan: deep tissue wound, present on admission. General surgery recommends wound care; no surgical intervention needed. (12) DVT prophylaxis: Status: Acute Assessment and plan: Therapeutic on coumadin (13) Discharge planning issues: Status: Acute Assessment and plan: DNR/DNI Continues to require hospitalization. Awaiting bed at the [facility] on Saturday. Subjective Subjective Interval history since last seen: Mr Winkler states that he is having a good day. Slept well. Denies dizziness, chest pain, shortness of breath, nausea. Griffin catheter was exchanged today due to yeast on latest urine C&S. Exam Narrative Exam Narrative: General: Pleasant elderly male who is awake, laying comfortably in bed A&Ox3, NAD HEENT: EOMI, MMM Heart: RRR, no m/r/g Lungs: CTAB Abdomen: soft, nontender, nondistended Extremities: no edema BLEs, TTP distal BLE tibial surface, no erythema of L ankle, preserved L ankle ROM Objective Last Vital Signs Temp 37.0 C 03/29/23 15:27 Pulse 72 03/29/23 15:27 Resp 16 03/29/23 15:27 BP 105/66 03/29/23 15:27 Pulse Ox 100 03/29/23 15:27 Laboratory Results - last 24 hr 03/29/23 03/29/23 03/29/23 06:42 06:42 06:42 WBC 10.31 RBC 3.17 L Hgb 8.4 L Hct 27.1 L MCV 86 MCH 26.5 L MCHC 31.0 L RDW 17.5 H Plt Count 306 MPV 8.6 Immature Gran % 1.4 Neutrophils % 71.7 Lymphocytes % 14.2 Monocytes % 10.2 Eosinophils % 2.1 Basophils % 0.4 Nucleated RBC % 0.0 Absolute Neutrophils 7.40 H Absolute Lymphocytes 1.46 Absolute Monocytes 1.05 H Absolute Eosinophils 0.22 Absolute Basophils 0.04 PT INR Sodium 132 L Potassium 3.7 Chloride 98 Carbon Dioxide 19.1 L Anion Gap 14.9 H BUN 86 H* Creatinine 5.7 H* Est GFR (CKD-EPI 2020) 9.25 Glucose 192 H Calcium 10.1 Magnesium 2.1 C-Reactive Protein 14.32 H Procalcitonin 0.4 03/29/23 06:42 WBC RBC Hgb Hct MCV MCH MCHC RDW Plt Count MPV Immature Gran % Neutrophils % Lymphocytes % Monocytes % Eosinophils % Basophils % Nucleated RBC % Absolute Neutrophils Absolute Lymphocytes Absolute Monocytes Absolute Eosinophils Absolute Basophils PT 20.2 H INR 2.0 H Sodium Potassium Chloride Carbon Dioxide Anion Gap BUN Creatinine Est GFR (CKD-EPI 2020) Glucose Calcium Magnesium C-Reactive Protein Procalcitonin Time Spent with Patient Time Spent with Patient: 25-34 minutes Time was spent: preparing to see the patient(eg.review tests), obtaining and/or reviewing separately otained hiistory, ordering medications,tests, procedures, referring, communicating with other health pet care technician, indepentently interpreting results, counseling the patient and care coordination
[2023-03-29] MEDS: Magnesium Oxide 400 MG TAB PO (21:13)
[2023-03-29] MEDS: Gabapentin 100 MG CAP PO (21:13)
[2023-03-29] MEDS: Melatonin 3 MG TAB 6 MG PO (21:13)
[2023-03-29] MEDS: Tamsulosin 0.4 MG CAPCR PO (21:13)
[2023-03-29] MEDS: Pravastatin 40 MG TAB PO (21:13)
[2023-03-29] MEDS: Insulin Glargine 300 UNITS/3 ML PEN 40 UNITS SC (21:22)
[2023-03-29 23:27] VITALS: BP 92/64; PULSE 80; RESP 16; TEMP 36.6; O2SAT 98
[2023-03-30 06:55] LABS: INR 1.6 (0.9-1.1); Prothrombin Time 16.5 sec (9.3-11.0)
[2023-03-30] MEDS: Omeprazole 20 MG CAPCR PO (07:16)
[2023-03-30] MEDS: Insulin Aspart 300 UNITS/3 ML PEN SC ×6 (07:49→21:17)
[2023-03-30] MEDS: Metoprolol CR 100 MG TABCR PO (07:52)
[2023-03-30] MEDS: Finasteride 5 MG TAB PO (07:52)
[2023-03-30] MEDS: Torsemide 20 MG TAB 40 MG PO (07:52)
[2023-03-30] MEDS: Docusate Sodium 100 MG CAP PO (07:52)
[2023-03-30] MEDS: Fluconazole 100 MG TAB PO (07:52)
[2023-03-30] MEDS: metOLazone 2.5 MG TAB 5 MG PO (07:53)
[2023-03-30] MEDS: Polyethylene Glycol 3350 17 GM PACKET PO (07:53)
[2023-03-30] MEDS: Nystatin POWDER 60 GM JAR TP ×2 (08:53→20:54)
[2023-03-30 11:26] VITALS: BP 119/79; PULSE 63; RESP 16; TEMP 36.4; O2SAT 98
[2023-03-30] MEDS: Heparin 5,000 UNITS/ML VIAL 5000 UNITS SC ×2 (12:48→20:50)
--- NOTE | 2023-03-30 13:58 | PT.INTREAT ---
PT Notes Visit Reasons: Anemia, Acute Respiratory Failure, UTI Inpatient Physical Therapy Treatment Note [facility] Date: 03/30/23 SUBJECTIVE:Sav states that he thinks he is doing ok. He offers no complaints to me today. Indicated that he had already walked quite a bit this am, bed to commode to recliner and is tired from that OBJECTIVE: [] BED MOBILITY/TRANSFERS declined getting out of recliner today stating that he is just too tired and will do it tomorrow. He is agreeable to doing chair ex. THEREX: global LE strength and stabilization while seated including AP, LAQ, hip flex, hip ab/add x 10-15 each. ASSESSMENT: did well with the exercises, but noted him to get a little sleepy. He would nod off during conversation. Had a hard time focusing due to fatigue PLAN: will work with him tomorrow on functional mobility and strengthening TREATMENT CODE/TIME: 20 min TPx1
[2023-03-30 14:57] VITALS: O2SAT 98
[2023-03-30] MEDS: Normal Saline Flush 10 ML SYR IVP (16:32)
[2023-03-30] MEDS: cefTRIAXone 2 GM/50 ML BAG IVPB (16:33)
--- NOTE | 2023-03-30 20:19 | W.PM.PROGNOT ---
Date of Service Date of service: 03/30/23 Time of Service: 20:21 Assessment and Plan Assessment and plan (1) Acute UTI: Status: Acute Assessment and plan: Due to klebsiella + mixed sapphire and now also yeast, present on admission, associated with an indwelling catheter. Continue ceftriaxone and fluconazole. Griffin exchanged 07/30/23. (2) Right heart failure: Status: Acute Assessment and plan: Continue diuresis w/ torsemide/metolazone + CPAP. (3) Anemia: Status: Chronic Assessment and plan: Etiology: combination of anemia of chronic disease due to CKD, iron deficiency, volume overload. S/p 2 units pRBCs on this admission. H/H improved as expected. I do think he got a little fluid overloaded with the transfusion. (4) Atrial fibrillation: Status: Chronic Assessment and plan: Rate controlled. Continue metoprolol. Continue coumadin. INR subtherapeutic - will add DVT ppx. (5) Chronic kidney disease: Status: Chronic Assessment and plan: Monitor Cr with resumption of diuresis. Continues to make urine. Continue griffin catheter, monitor Cr while diuresing w/ torsemide + metolazone. 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 Has LUCAS/OHS/pulmonary hypertension. Continue torsemide, continuue metolazone. (7) Obstructive nephropathy: Status: Acute Assessment and plan: See CKD Continue tamsulosin. Chronic indwelling griffin cath. (8) Hyperlipidemia: Assessment and plan: Continue pravastatin. (9) Diabetes mellitus type 2 in obese: Assessment and plan: Continue basal bolus insulin was adjusted to moderate SSI w/ meals. Jardiance d/c'ed due to worsening risk of UTIs, including fungal UTis. (10) LUCAS on CPAP: Assessment and plan: Continue CPAP (11) Pressure ulcer of right ischium: Status: Acute Assessment and plan: deep tissue wound, present on admission. General surgery recommends wound care; no surgical intervention needed. (12) DVT prophylaxis: Status: Acute Assessment and plan: SC heparin while subtherapeutic on coumadin (13) Discharge planning issues: Status: Acute Assessment and plan: DNR/DNI Continues to require hospitalization. Awaiting bed at the [facility] on Saturday. Subjective Subjective Interval history since last seen: Mr Winkler states that his breathing today has been good. I haven't noticed it. He denies dizziness, chest pain, shortness of breath, nausea. He really enjoyed his visit with his granddaughter Charline who is a linter tender. Exam Narrative Exam Narrative: General: Pleasant elderly male who is awake, laying comfortably in bed, A&Ox3, eating dinner HEENT: EOMI, MMM Heart: RRR, no m/r/g Lungs: CTAB Abdomen: soft, nontender, nondistended Extremities: no edema BLEs, TTP distal BLE tibial surface Objective Last Vital Signs Temp 36.4 C L 03/30/23 11:26 Pulse 63 03/30/23 11:26 Resp 16 03/30/23 11:26 BP 119/79 03/30/23 11:26 Pulse Ox 98 03/30/23 14:57 Laboratory Results - last 24 hr 03/30/23 06:15 PT 16.5 H INR 1.6 H Time Spent with Patient Time Spent with Patient: 25-34 minutes Time was spent: preparing to see the patient(eg.review tests), obtaining and/or reviewing separately otained hiistory, ordering medications,tests, procedures, referring, communicating with other health landcare facilitator, indepentently interpreting results, counseling the patient and care coordination
[2023-03-30] MEDS: Tamsulosin 0.4 MG CAPCR PO (20:46)
[2023-03-30] MEDS: Pravastatin 40 MG TAB PO (20:46)
[2023-03-30] MEDS: Magnesium Oxide 400 MG TAB PO (20:46)
[2023-03-30] MEDS: Insulin Glargine 300 UNITS/3 ML PEN 40 UNITS SC (20:47)
[2023-03-30] MEDS: Gabapentin 100 MG CAP PO (20:47)
[2023-03-30] MEDS: Melatonin 3 MG TAB 9 MG PO (21:12)
[2023-03-30 22:11] VITALS: BP 96/60; PULSE 69; RESP 16; TEMP 37.6; O2SAT 95
[2023-03-31 07:38] LABS: INR 1.6 (0.9-1.1); Prothrombin Time 16.2 sec (9.3-11.0)
[2023-03-31 07:51] LABS: Anion Gap 18.1 mmol/L (3-11); C-Reactive Protein 14.79 mg/dL (0.0-0.3); CO2 20.9 mmol/L (21.0-32.0); Calcium 10.2 mg/dL (8.5-10.1); Chloride 94 mmol/L (98-107); Glucose 148 mg/dL (74-106); Magnesium 2.3 mg/dL (1.8-2.4); Potassium 3.1 mmol/L (3.5-5.1); Sodium 133 mmol/L (136-145)
[2023-03-31] MEDS: Insulin Aspart 300 UNITS/3 ML PEN SC ×6 (07:53→21:21)
[2023-03-31] MEDS: Nystatin POWDER 60 GM JAR TP ×2 (07:53→20:13)
[2023-03-31] MEDS: Polyethylene Glycol 3350 17 GM PACKET PO (07:53)
[2023-03-31] MEDS: Docusate Sodium 100 MG CAP PO (07:54)
[2023-03-31] MEDS: Metoprolol CR 100 MG TABCR PO (07:54)
[2023-03-31] MEDS: Torsemide 20 MG TAB 40 MG PO (07:54)
[2023-03-31] MEDS: Fluconazole 100 MG TAB PO (07:54)
[2023-03-31] MEDS: metOLazone 2.5 MG TAB 5 MG PO (07:54)
[2023-03-31] MEDS: Potassium Chloride 10 MEQ CAPCR 30 MEQ PO (07:54)
[2023-03-31] MEDS: Finasteride 5 MG TAB PO (07:54)
[2023-03-31 07:59] LABS: BUN 107 mg/dL (7-18)
[2023-03-31 08:19] LABS: Procalcitonin 0.4 ng/mL
[2023-03-31] MEDS: Omeprazole 20 MG CAPCR PO (08:20)
[2023-03-31 10:02] VITALS: BP 93/61; PULSE 76; RESP 22; TEMP 36.4; O2SAT 98
[2023-03-31] MEDS: Lactated Ringers 250 ML IV (11:24)
[2023-03-31] MEDS: Normal Saline Flush 10 ML SYR IVP (11:24)
[2023-03-31] MEDS: Heparin 5,000 UNITS/ML VIAL 5000 UNITS SC ×2 (11:24→20:13)
[2023-03-31 12:01] LABS: Source Nasal/Nares
--- NOTE | 2023-03-31 12:29 | PTTR_ITS ---
PT Notes Visit Reasons: Anemia, Acute Respiratory Failure, UTI Inpatient Physical Therapy Treatment Note [facility] Date: 03/31/23 SUBJECTIVE: Sav states that he is willing to try to walk a bit today. He would like a wc close in case he needs to sit. OBJECTIVE: [] BED MOBILITY/TRANSFERS Sit-stand: mod A of 2 Stand-sit: mod A of 2 GAIT Assistive Device: FWW Weight bearing: full Assist: CGA/min A of 2 Distance: approx 4' x 2 Deviation: one sitting rest x 10 min, constant encouragement due to high anxiety, cues for proper sequencing ASSESSMENT: Sav did well ambulating recliner to wc (4') however coming back his anxiety got the best of him, panic set in (he stopped listening to instruct ions) and he decided to sit too early, only placing one hip on recliner. I was able to get my leg under his right hip to avoid falling to the floor. Nursing staff came in to help get him safely into recliner. Once he had both hips in chair he was able to assist in standing and getting himself back into the recliner. He denies any pain or injury. PLAN: requires continuation in strengthening and functional mobility. TREATMENT CODE/TIME: 30 min TAx2
[2023-03-31 13:41] LABS: COVID-19 PCR Negative (Negative)
[2023-03-31] MEDS: Lactated Ringers 1,000 ML 75 ML IV ×2 (15:10→23:22)
[2023-03-31] MEDS: cefTRIAXone 2 GM/50 ML BAG IVPB (15:42)
[2023-03-31 15:50] VITALS: BP 90/58; PULSE 75; RESP 20; TEMP 36.6; O2SAT 99
--- NOTE | 2023-03-31 16:33 | W.PM.PROGNOT ---
Date of Service Date of service: 03/31/23 Time of Service: 16:33 Assessment and Plan Assessment and plan (1) Acute UTI: Status: Acute Assessment and plan: Due to klebsiella + mixed sapphire and now also yeast, present on admission, associated with an indwelling catheter. Finish ceftriaxone. Continue fluconazole. Griffin exchanged 07/30/23. (2) Chronic kidney disease: Status: Chronic Assessment and plan: With slight KENNETH in that Cr is 6 today. Got diuretics before am labs came back. He has received a bolus of 250 cc of LR and is receiving another 250 cc at 75 cc/hr. Hold further diuresis for now. Continues to make urine. Continue griffin catheter, monitor Cr. I had a long discussion today with the re what dialysis means and what it looks like. (3) Right heart failure: Status: Acute Assessment and plan: monitor respiratory status while the diuretics are on hold. Continue CPAP. (4) Anemia: Status: Chronic Assessment and plan: Etiology: combination of anemia of chronic disease due to CKD, iron deficiency, volume overload. S/p 2 units pRBCs on this admission. H/H improved as expected. I do think he got a little fluid overloaded with the transfusion. (5) Atrial fibrillation: Status: Chronic Assessment and plan: Rate controlled. Continue metoprolol. Continue coumadin. INR subtherapeutic again today (1.6). 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 Has LUCAS/OHS/pulmonary hypertension. Hold torsemide/metolazone. (7) Obstructive nephropathy: Status: Acute Assessment and plan: See CKD Continue tamsulosin. Chronic indwelling griffin cath. (8) Hyperlipidemia: Assessment and plan: Continue pravastatin. (9) Diabetes mellitus type 2 in obese: Assessment and plan: Continue basal bolus insulin was adjusted to moderate SSI w/ meals. Jardiance d/c'ed due to worsening risk of UTIs, including fungal UTis. (10) LUCAS on CPAP: Assessment and plan: Continue CPAP (11) Pressure ulcer of right ischium: Status: Acute Assessment and plan: deep tissue wound, present on admission. General surgery recommends wound care; no surgical intervention needed. (12) DVT prophylaxis: Status: Acute Assessment and plan: SC heparin while subtherapeutic on coumadin (13) Discharge planning issues: Status: Acute Assessment and plan: DNR/DNI Continues to require hospitalization. Awaiting bed at the [facility] on Saturday, but this may have to be delayed if Cr not better. Subjective Subjective Interval history since last seen: Mr Winkler is more somnolent today, per family. He says he didn't sleep well last night and that's why he is so sleepy. Denies pain, shortness of breath, nausea, dizziness. Exam Narrative Exam Narrative: General: Pleasant elderly male who is asleep, wakes up to repetitive verbal stimuli, laying comfortably in bed, A&Ox3, being visited by and granddaughter HEENT: EOMI, MMM Heart: RRR, no m/r/g Lungs: CTAB Abdomen: soft, nontender, nondistended : has a catheter Extremities: trace edema BLEs, TTP distal BLE tibial surface, chronic venous stasis dermatitis Objective Last Vital Signs Temp 36.6 C 03/31/23 15:50 Pulse 75 03/31/23 15:50 Resp 20 03/31/23 15:50 BP 90/58 L 03/31/23 15:50 Pulse Ox 99 03/31/23 15:50 Laboratory Results - last 24 hr 03/31/23 03/31/23 03/31/23 06:55 06:55 06:55 PT 16.2 H INR 1.6 H Sodium 133 L Potassium 3.1 L Chloride 94 L Carbon Dioxide 20.9 L Anion Gap 18.1 H BUN 107 H* Creatinine 6.0 H* Est GFR (CKD-EPI 2020) 8.70 Glucose 148 H Calcium 10.2 H Magnesium 2.3 C-Reactive Protein 14.79 H Procalcitonin 0.4 COVID-19 Source SARS-CoV-2 (PCR) 03/31/23 11:50 PT INR Sodium Potassium Chloride Carbon Dioxide Anion Gap BUN Creatinine Est GFR (CKD-EPI 2020) Glucose Calcium Magnesium C-Reactive Protein Procalcitonin COVID-19 Source Nasal/Nares SARS-CoV-2 (PCR) Negative Time Spent with Patient Time Spent with Patient: 25-34 minutes Time was spent: preparing to see the patient(eg.review tests), obtaining and/or reviewing separately otained hiistory, ordering medications,tests, procedures, referring, communicating with other health certified social workers in health care, indepentently interpreting results, counseling the patient and care coordination
[2023-03-31 17:49] VITALS: BP 95/57; PULSE 70
[2023-03-31] MEDS: Pravastatin 40 MG TAB PO (20:13)
[2023-03-31] MEDS: Insulin Glargine 300 UNITS/3 ML PEN 40 UNITS SC (20:14)
[2023-03-31] MEDS: Magnesium Oxide 400 MG TAB PO (21:21)
[2023-03-31] MEDS: Tamsulosin 0.4 MG CAPCR PO (21:22)
[2023-03-31] MEDS: Gabapentin 100 MG CAP PO (21:22)
[2023-03-31] MEDS: Melatonin 3 MG TAB 9 MG PO (21:22)
[2023-03-31] MEDS: Acetaminophen 325 MG TAB PO (21:27)
[2023-03-31 21:53] VITALS: O2SAT 98
--- NOTE | 2023-04-01 | DI.RAD_ITS ---
Exam(s) XR SHOULDER RT COMPLETE 2+V EXAM: XR SHOULDER RT COMPLETE 2+V CLINICAL HISTORY: acute right shoulder pain. TECHNIQUE: 2D digital imaging was performed. Five views. COMPARISON: CR XR CHEST 2V PA LATERAL from 03/21/2023 CR XR PORTABLE CHEST AP from 03/27/2023 FINDINGS: BONES: No acute fracture is present. No bony destructive lesion is seen. JOINTS: No dislocation present. Severe degenerative changes of the glenohumeral joint, with a bone-o n-bone appearance and prominent periarticular spurring. Some remodeling of the humeral head and rebeca oid. Evidence of chronic rotator cuff tear. Spurring at the AC joint and tip of the acromion. SOFT TISSUE: Normal. 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 No acute abnormality. DATA REPOSITORY: RADIATION DOSE DELIVERED:
[2023-04-01 04:40] VITALS: BP 115/69; PULSE 57; RESP 22; TEMP 36; O2SAT 98
[2023-04-01] MEDS: Heparin 5,000 UNITS/ML VIAL 5000 UNITS SC ×3 (06:14→20:23)
[2023-04-01 06:47] LABS: Abs Immature Grans 0.05 10^3/uL (0.0-0.06); Absolute Basophil Count 0.03 10^3/uL (0.0-0.2); Absolute Lymphocyte Count 1.39 10^3/uL (1.2-3.4); Absolute Monocyte Count 0.93 10^3/uL (0.1-0.8); Absolute Neutrophil Count 5.29 10^3/uL (1.2-6.7); Basophils % 0.4; Eosinophils % 2.5; Immature Grans % 0.6; Lymphocytes % 17.6; MCH 26.4 pg (27.0-33.0); MCV 83 fL (80-95); MPV 8.5 fL (8.0-11.0); Monocytes % 11.8; Neutrophils % 67.1; Platelet Count 269 10^3/uL (130-400); RBC 3.03 10^6/uL (4.36-5.78); RDW 17.1 % (11.8-14.1); RDW-SD 50.8 fL; WBC 7.89 10^3/uL (4.4-10.8)
[2023-04-01 07:00] LABS: INR 1.6 (0.9-1.1); Prothrombin Time 16.6 sec (9.3-11.0)
[2023-04-01 07:19] LABS: Anion Gap 17.9 mmol/L (3-11); C-Reactive Protein 14.95 mg/dL (0.0-0.3); CO2 20.1 mmol/L (21.0-32.0); Calcium 9.8 mg/dL (8.5-10.1); Chloride 91 mmol/L (98-107); Glucose 175 mg/dL (74-106); Magnesium 2.2 mg/dL (1.8-2.4); Sodium 129 mmol/L (136-145)
[2023-04-01 07:22] LABS: BUN 113 mg/dL (7-18)
[2023-04-01 07:23] LABS: Potassium 2.7 mmol/L (3.5-5.1)
[2023-04-01] MEDS: Omeprazole 20 MG CAPCR PO (07:28)
[2023-04-01] MEDS: Potassium Chloride 10 MEQ CAPCR 30 MEQ PO (08:05)
[2023-04-01] MEDS: Polyethylene Glycol 3350 17 GM PACKET PO (08:05)
[2023-04-01] MEDS: Finasteride 5 MG TAB PO (08:06)
[2023-04-01] MEDS: Metoprolol CR 100 MG TABCR PO (08:06)
[2023-04-01] MEDS: Docusate Sodium 100 MG CAP PO (08:06)
[2023-04-01] MEDS: Fluconazole 100 MG TAB PO (08:06)
[2023-04-01] MEDS: Insulin Aspart 300 UNITS/3 ML PEN SC ×3 (08:09→20:23)
[2023-04-01] MEDS: POTASSIUM CHLORIDE 10 MEQ/100 ML BAG 30 MEQ IVPB (08:55)
[2023-04-01] MEDS: Normal Saline Flush 10 ML SYR IVP ×2 (09:08→16:39)
[2023-04-01] MEDS: Nystatin POWDER 60 GM JAR TP ×2 (09:26→20:22)
[2023-04-01] MEDS: Acetaminophen 325 MG TAB PO ×2 (09:38→13:56)
--- NOTE | 2023-04-01 11:21 | PDOC.CMPRO ---
Date of service: 04/01/23 Time of Service: 11:21 Care Management Progress Note Progress Note Text Progress Note Text: S/O: ? Sav was lying in bed when CM met with him. He was planning on discharging to the [facility] for STR today, however his potassium needs to be repleated and his Kidney function requires monitoring. Possible discharge tomorrow, RCT W/C van will be coordinated. CM will follow. A: 82 year old male admitted to [facility] on 03/21/23 for Anemia, acute respiratory failure, UTI P:?PT recommendation is SNF for STR, A referral was sent to the [facility], bed offer is made and pt accepted, pending Prior Auth for Saturday.. If there is no bed offer, anticipate he will discharge home via EMS vs private vehicle with (with Lift Assist). Resume [facility] RN services, add PT/OT/RATING SPECIALIST.? CM will continue to follow and support discharge needs.
[2023-04-01] MEDS: POTASSIUM CHLORIDE 10 MEQ/100 ML BAG 40 MEQ IVPB (11:51)
--- NOTE | 2023-04-01 14:39 | W.PM.PROGNOT ---
Date of Service Date of service: 04/01/23 Time of Service: 14:39 Assessment and Plan Assessment and plan (1) Acute UTI: Status: Acute Assessment and plan: Due to klebsiella + mixed sapphire and now also yeast, present on admission, associated with an indwelling catheter. Finish ceftriaxone. Continue fluconazole. Griffin exchanged 07/30/23. Professional time spent interviewing and examining patient, discussion of goals of care with hospital team (care management, nursing and consulting professionals) was 30 minutes. (2) Chronic kidney disease: Status: Chronic Assessment and plan: acute on chronic renal failure. He is probably a little over diuresed. Diuretics on hold. Patient given small fluid bolus yesterday. Given his hx of right heart failure (although his last echocardiogram from 01/01/23 showed normal LV systolic function w/ LVEF 55%, his RV was not well visualized. Likely his right sided failure is d/t his LUCAS. RVSP could not be estimated on his last echo. BUN and creatinine have not improved. BUN up to 113 and creatinine up to 6.0. I will give him some further iv fluids overnight at low rate. i.e. LR @ 50 mL/hr (3) Right shoulder pain: Status: Acute Assessment and plan: new complaint since yesterday. Possible right shoulder rotator cuff injury. will get xray to rule out any na abnormalities/trauma. If negative then will ask P.T. to work w/ him and I will give him further narcotic analgesic, may benefit from steroid burst or even ask ortho to evaluate. I have increased his gabapentin to 200 mg hs and will give him low dose hydromorphone. (4) Right heart failure: Status: Acute Assessment and plan: monitor respiratory status while the diuretics are on hold. Continue CPAP. (5) Anemia: Status: Chronic Assessment and plan: Etiology: combination of anemia of chronic disease due to CKD, iron deficiency, volume overload. S/p 2 units pRBCs on this admission. H/H improved as expected. I do think he got a little fluid overloaded with the transfusion. However he is now prerenal azotemia in setting of CKD (6) Atrial fibrillation: Status: Chronic Assessment and plan: Rate controlled. Continue metoprolol. Continue coumadin. INR subtherapeutic again today (1.6). I have adjusted his warfarin. Will give him 3 mg tonight then resume his prior home dose of 2.5 mg nightly every Saturday, Saturday, Saturday and Saturday (7) Moderate pulmonary arterial systolic hypertension: Status: Chronic Assessment and plan: Continue CPAP. Has LUCAS/OHS/pulmonary hypertension. Hold torsemide/metolazone. (8) Obstructive nephropathy: Status: Acute Assessment and plan: See CKD Continue tamsulosin. Chronic indwelling griffin cath. (9) Hyperlipidemia: Assessment and plan: Continue pravastatin. (10) Diabetes mellitus type 2 in obese: Assessment and plan: Continue basal bolus insulin was adjusted to moderate SSI w/ meals. Jardiance d/c'ed due to worsening risk of UTIs, including fungal UTis. (11) LUCAS on CPAP: Assessment and plan: Continue CPAP (12) Pressure ulcer of right ischium: Status: Acute Assessment and plan: deep tissue wound, present on admission. General surgery recommends wound care; no surgical intervention needed. (13) DVT prophylaxis: Status: Acute Assessment and plan: SC heparin while subtherapeutic on coumadin (14) Discharge planning issues: Status: Acute Assessment and plan: DNR/DNI Continues to require hospitalization. Patient has been accepted to [facility] however d/t his low K+ level of 2.7 today, he is being delayed. Also his acute right shoulder pain is being investigated. Subjective Subjective Interval history since last seen: Patient complaining of acute right shoulder pain. He says that this just started last night. Per his nurse, Danial, the patient had slid during P.T. yesterday but did not actually fall. P.T. actually caught him and supported him w/ her knee. It is unclear whether or not he used his right arm to brace himself or catch himself. His was here for this and states that he was up out of the chair for P.T. but felt that he could have wrenched his shoulder in the process of getting him back into the chair. Exam Narrative Exam Narrative: Morbidly obese male lying in bed talking with his . He is alert and oriented. Lungs are clear to auscultation Heart is regular but bradycardic no murmur rub Abdomen obese soft and nontender Extremities right shoulder is tender to palpation of the acromioclavicular joint and tender and very painful with abduction or external rotation of the shoulder. There is no visible bruising and no palpable displacement of the humerus head. Examination of the right forearm and elbow reveals no swelling of the elbow he has normal flexion extension at the elbow and normal supination and pronation with the hand and wrist Legs: no pitting edema over his tibia, he is very tender to touch and he has chronic venous skin darkening but no open sores Objective Last Vital Signs Temp 36.0 C L 04/01/23 04:40 Pulse 57 L 04/01/23 04:40 Resp 22 04/01/23 04:40 BP 115/69 04/01/23 04:40 Pulse Ox 98 04/01/23 04:40 Laboratory Results - last 24 hr 04/01/23 04/01/23 04/01/23 06:24 06:24 06:24 WBC 7.89 RBC 3.03 L Hgb 8.0 L Hct 25.0 L MCV 83 MCH 26.4 L MCHC 32.0 RDW 17.1 H Plt Count 269 MPV 8.5 Immature Gran % 0.6 Neutrophils % 67.1 Lymphocytes % 17.6 Monocytes % 11.8 Eosinophils % 2.5 Basophils % 0.4 Nucleated RBC % 0.0 Absolute Neutrophils 5.29 Absolute Lymphocytes 1.39 Absolute Monocytes 0.93 H Absolute Eosinophils 0.20 Absolute Basophils 0.03 PT 16.6 H INR 1.6 H Sodium 129 L Potassium 2.7 L* Chloride 91 L Carbon Dioxide 20.1 L Anion Gap 17.9 H BUN 113 H* Creatinine 6.0 H* Est GFR (CKD-EPI 2020) 8.70 Glucose 175 H Calcium 9.8 Magnesium 2.2 C-Reactive Protein 14.95 H Time Spent with Patient Time Spent with Patient: 25-34 minutes Time was spent: preparing to see the patient(eg.review tests), obtaining and/or reviewing separately otained hiistory, ordering medications,tests, procedures, referring, communicating with other health hearing healthcare practitioner, indepentently interpreting results, counseling the patient (And patient's ) and care coordination
--- NOTE | 2023-04-01 14:43 | PT.INTREAT ---
Date of service: 04/01/23 Time of Service: 12:43 PT Notes Visit Reasons: Anemia, Acute Respiratory Failure, UTI Inpatient Physical Therapy Treatment Note [facility] Date: 04/01/23 PRECAUTIONS: Fall, standard, activity as tolerated SUBJECTIVE: Patient reports feeling fair to middlin'. Granddaughter is present, as well as . Patient would like help getting repositioned in bed, but then wants to hold the rest of therapy until after his granddaughter leaves. OBJECTIVE: PAIN: none reported BED MOBILITY/TRANSFERS Rolling L/R: standby with rare verbal cues Supine-sit: min to mod assist with verbal cues for sequencing Sit-supine: set up assistance with leg pathology secretary/transcriptionist, rare verbal cues Sit-stand: Contact guard to min assist Stand-sit: contact guard with verbal cues for safety Bed-Chair: contact guard to min assist Chair-bed: contact guard to min assist THERACT: Patient participates in bed mobility training including verbal and tactile cues to facilitate independent rolling and scooting in the bed. Patient gets into a comfortable position. ASSESSMENT: Patient resting comfortably in bed, visiting with and granddaughter. Agreeable to therapy later, after granddaughter leaves. PLAN: Continue strengthening per plan of care. TREATMENT CODE/TIME: 48211 Theract 11 minutes beginning at 12:43
[2023-04-01 15:43] VITALS: BP 105/70; PULSE 67; RESP 20; TEMP 35.9; O2SAT 99
[2023-04-01] MEDS: HYDROmorphone 2 MG/ML SYR 0.5 MG IVP (16:38)
[2023-04-01 16:43] LABS: Potassium 3.3 mmol/L (3.5-5.1)
--- NOTE | 2023-04-01 17:19 | PTTR_ITS ---
Date of service: 04/01/23 Time of Service: 15:00 PT Notes Visit Reasons: Anemia, Acute Respiratory Failure, UTI Inpatient Physical Therapy Treatment Note [facility] Date: 04/01/23 PRECAUTIONS: Fall. Standard. Activity as tolerated. SUBJECTIVE: and patient complains of pain in the R shoulder of about 5-6/10 with movement, 0/10 at rest. gently applying liniment to 's shoulder which is giving him good relief. states that has had chronic pain issue on that same shoulder but may have been aggravated by yesterday's difficult transfer with HEALTH CLUB ATTENDANT and nursing staff. OBJECTIVE: General Observation: Supine in bed. HOB elevated at about 30 degrees. ? PAIN: 5-6/10 ? BED MOBILITY/TRANSFERS? Deferred bed mobility and transfers for today as patient has been highly guarding his R shoulder and did not feel safe about moving without knowing what is going on with that R shoulder. GAIT:? Anxious about using his R UE for bed mobility and transfers. Only agreed to getting moved out of bed using the inflated harness placed underneath him. ASSESSMENT: Provided assistance with safely transferring patient to stretcher for x-ray of R shoulder. Unwilling to move R UE, highly guarding it. No pain at rest. Will reassess patient for soft tissue injury in the shoulder after result of x-ray in shoulder is received. PLAN: Continue with PT POC as initially established. Assess musculotendinous integrity in the R shoulder when x-ray result is received and fracture ruled out. TREATMENT CODE/TIME: 45110 x 20 minutes beginning at 15:00 PM.
[2023-04-01] MEDS: Pravastatin 40 MG TAB PO (20:21)
[2023-04-01] MEDS: Magnesium Oxide 400 MG TAB PO (20:21)
[2023-04-01] MEDS: Melatonin 3 MG TAB 9 MG PO (20:22)
[2023-04-01] MEDS: Insulin Glargine 300 UNITS/3 ML PEN 40 UNITS SC (20:22)
[2023-04-01] MEDS: Tamsulosin 0.4 MG CAPCR PO (20:22)
[2023-04-01] MEDS: Sodium Bicarbonate 650 MG TAB PO (20:22)
[2023-04-01] MEDS: Potassium Chloride 20 MEQ TABCR PO (20:22)
[2023-04-01] MEDS: Gabapentin 100 MG CAP 200 MG PO (21:11)
[2023-04-01 23:35] VITALS: BP 108/72; PULSE 70; RESP 20; TEMP 36.6; O2SAT 96
--- NOTE | 2023-04-02 | DI.RAD_ITS ---
Exam(s) XR WRIST RT COMPLETE EXAM: XR WRIST RT COMPLETE CLINICAL HISTORY: right wrist pain. TECHNIQUE: 2D digital imaging was performed of the right wrist. Three views were obtained. PA, lat eral and oblique views were obtained. COMPARISON: No exams were available for comparison FINDINGS: BONES: No acute fracture is present. No bony destructive lesion is seen. JOINTS: There are moderately severe degenerative changes seen in the wrist with joint space narrowing and bony hypertrophy. The findings can be seen at the distal radial ulnar joint and the 1st carpome tacarpal joint. In addition changes are seen at the radiocarpal joint. There does appear to be some widening of the scapholunate distance raising the question ligament tear. SOFT TISSUE: Atherosclerosis. Chondrocalcinosis is seen distal to the ulna. IMPRESSION: 1. No acute fracture or dislocation. 2. 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 3. Findings suspicious for scapholunate ligament tear. DATA REPOSITORY: RADIATION DOSE DELIVERED:
[2023-04-02] MEDS: Heparin 5,000 UNITS/ML VIAL 5000 UNITS SC ×3 (05:55→19:56)
[2023-04-02 07:27] LABS: Abs Immature Grans 0.07 10^3/uL (0.0-0.06); Absolute Basophil Count 0.04 10^3/uL (0.0-0.2); Absolute Eosinophil Count 0.15 10^3/uL (0.0-0.7); Absolute Lymphocyte Count 1.11 10^3/uL (1.2-3.4); Absolute Monocyte Count 0.79 10^3/uL (0.1-0.8); Absolute Neutrophil Count 6.79 10^3/uL (1.2-6.7); Basophils % 0.4; Eosinophils % 1.7; HCT 27.2 % (40.0-50.0); HGB 8.7 g/dL (13.5-17.5); Immature Grans % 0.8; Lymphocytes % 12.4; MCH 26.5 pg (27.0-33.0); MCV 83 fL (80-95); MPV 8.5 fL (8.0-11.0); Monocytes % 8.8; Neutrophils % 75.9; Platelet Count 283 10^3/uL (130-400); RBC 3.28 10^6/uL (4.36-5.78); RDW 17.3 % (11.8-14.1); RDW-SD 52.4 fL; WBC 8.95 10^3/uL (4.4-10.8)
[2023-04-02 07:49] LABS: Anion Gap 15.2 mmol/L (3-11); CO2 20.8 mmol/L (21.0-32.0); Calcium 9.5 mg/dL (8.5-10.1); Chloride 92 mmol/L (98-107); Estimated GFR 8.88 (mL/min/1.73m2); Glucose 222 mg/dL (74-106); Potassium 3.4 mmol/L (3.5-5.1); Sodium 128 mmol/L (136-145)
[2023-04-02 07:53] LABS: BUN 115 mg/dL (7-18); CREATININE 5.9 mg/dL (0.70-1.30)
[2023-04-02 07:54] LABS: PHOSPHORUS 8.6 mg/dL (2.6-4.7)
[2023-04-02] MEDS: Sodium Bicarbonate 650 MG TAB PO ×3 (07:57→19:55)
[2023-04-02] MEDS: Polyethylene Glycol 3350 17 GM PACKET PO (07:57)
[2023-04-02] MEDS: Potassium Chloride 10 MEQ CAPCR 30 MEQ PO ×2 (07:57→19:56)
[2023-04-02] MEDS: Finasteride 5 MG TAB PO (07:58)
[2023-04-02] MEDS: Acetaminophen 325 MG TAB PO (07:58)
[2023-04-02] MEDS: Docusate Sodium 100 MG CAP PO (07:59)
[2023-04-02] MEDS: Fluconazole 100 MG TAB PO (07:59)
[2023-04-02] MEDS: Omeprazole 20 MG CAPCR PO (07:59)
[2023-04-02] MEDS: Metoprolol CR 100 MG TABCR PO (07:59)
--- NOTE | 2023-04-02 08:09 | PCNE_ITS ---
Date of service: 04/01/23 Time of Service: 15:00 History of Present Illness Narrative: Mr. Ang is an 82 y/o M currently inpt 2/2 UTI, acute resp failure and anemia; PMH sig for CKD, CHF w/a fid, DM, HTN, HLD, BPH, GERD, obesity; present today his /[facility] His kidneys have 100s of stones , they are aware of the dialysis may be recommended, that his kidneys may have weeks to months remaining before this decision needs to be made His right shoulder has been hurting since yesterday, did have x-ray today. The pain is worse with limited movement tolerable at rest, would like additional pain management He has been to his Lashawn for 19 years, he has 1 daughter who lives local, 3 grandchildren Sav has worked hard throughout his life to ensure that he can provide for his family, he has made arrangements for his and is always tried to be prepared as an adult for the future. He has completed an advanced directive, and defers to his Lashawn to make major decisions for him. His preference is to continue living, with any life-sustaining treatment. He would like to live as long as he can without suffering. His preference would be once diagrams advised to stop breathing, without pain. per staff: He was to be discharged today, however due to low potassium he was held, lab draw this afternoon with plans for discharge tomorrow. 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 Steven dickerson or tomorrow Plan for discharge to the [facility] tomorr Assessment and Plan Assessment and plan (1) Right shoulder pain: Status: Acute Assessment and plan: shoulder injection w/ortho scheduled (2) Discharge planning issues: Status: Acute (3) Acute kidney injury superimposed on chronic kidney disease: Status: Suspected (4) Acute UTI: Status: Acute (5) Chronic kidney disease: Status: Chronic (6) Kidney stones: Status: Chronic (7) Urinary retention: Status: Acute (8) Obesity: Status: Acute (9) CHF (congestive heart failure): Status: Chronic (10) Do not resuscitate: Status: Acute (11) Palliative care patient: (12) Advance care planning: Status: Acute Assessment and plan: Sav defers to his to make any serious decisions with his care if he is unable to make them, he would like to focus on comfort and quality, w/life sustaining interventions tried if there is a reasonable chance of survival w/the same quality. We reviewed CPR, what it entails, the survival rates, and suffering associated with this, his would not want CPR. If he were so sick and there was no chance of a reasonable recovery, he would want to transition to comfort measures and not return to the hospital. Unfortunately we were unable to complete the full COLST form d/t being interrupted several times, and administration of hydromorphone for pain l/t Sav being unable to complete visit. We did complete the COLST form to request his wishes, signed by his who participated in the entire visit. We reviewed dialysis and what it entails, reviewed how this decision will need to be made relatively soon for appropriate treatment start. At this time he has not made his decision Sav will be transferred to the [facility] tomorrow, 04/02, and palliative will continue to work with him for appropriate review of ACP, including decisions regarding dialysis, intubation, feeding tube, and when to consider vs not consider life sustaining treatments. From review of his advanced directive he would want a trial of intubation and feeding tube if there is a reasonable chance he will survive and return to his baseline Review of Systems Narrative: as per [facility] All Active Problems (Updated 04/02/23 @ 08:25 by Kathy Reeder NP) Do not resuscitate (Acute) Advance care planning (Acute) Right shoulder pain (Acute) Pressure ulcer of right ischium (Acute) Discharge planning issues (Acute) DVT prophylaxis (Acute) Fever (Acute) Chronic indwelling Knox catheter (Acute) Symptomatic anemia (Acute) Acute renal failure (Acute) Acute UTI (Acute) Diabetes mellitus (Chronic) Atrial fibrillation (Chronic) on coumadin Chronic kidney disease (Chronic) 2020- borderline stage 4 Venous insufficiency (chronic) (peripheral) (Acute) Nail dystrophy (Acute) COVID-19 (Acute ~08/05/22) Thumb pain (Acute) Right heart failure (Acute) Urinary retention (Acute) 11/2021, ultrasound shows significant pretty and post void residual- minimal response to voiding Kidney stones (Chronic) Longstanding history of multiple stones 11/2021 ultrasound showed multiple stones in kidney, 1 stone possibly in right ureter Anemia (Chronic) Chronic mild anemia, associated with CKD Obstructive sleep apnea (Chronic) cpap Acute on chronic heart failure with preserved ejection fraction (Acute) Hives (Acute) Obesity (Acute 02/11/13) Obstructive nephropathy (Acute) Moderate pulmonary arterial systolic hypertension (Chronic) Chronic anticoagulation (Chronic) Polyp of colon (Chronic) Rosacea (Chronic) Constipation (Chronic) CHF (congestive heart failure) (Chronic) Medical History Atrial fibrillation BPH (benign prostatic hyperplasia) Diabetes mellitus type 2 in obese Essential hypertension, benign GERD (gastroesophageal reflux disease) Hyperlipidemia Nephrolithiasis Obesity hypoventilation syndrome LUCAS on CPAP Palliative care patient Surgical History Cholecystectomy (~1985) Colonoscopy - MAC (~2002) Replacement of total knee joint B/L Tonsillectomy and adenoidectomy Family History Mother Diabetes Heart disease Father Neoplasm STOMACH Brother Neoplasm Brother No problems noted. Daughter No problems noted. Social History Smoking/Tobacco Use Status: Never Second Hand Exposure: No Smoking risk assessment performed?: Yes Alcohol Intake: current Alcohol Intake frequency: holidays/special occasions only Drug use: Never Substance use type: does not use Caregiver/Support person: Yes Household members: spouse Housing: house Communication Needs: Hard of Hearing Do you need help understanding health information?: Often Pets and animals: No Sexually active: No What is your relationship status?: How often do you talk on the phone with friends or family?: decline to answer How often do you get together with friends or relatives?: decline to answer How often do you attend judaism or confucianist services?: decline to answer Do you belong to any clubs or organized social groups?: decline to answer Panel score (0-1 are the most socially isolated patients): 1 What type of physical activity do you participate in: walking Duration: < 15 minutes/day Frequency: daily Special amor needs: No Do you feel safe at home: Yes Do you feel safe in your relationship?: Yes Exam Narrative Exam Narrative: General: older obese male, lying in bed, at bedside; NAD HEENT: normocephalic, atraumatic, hearing WNL Resp: speaks full sentences w/SOB w/prolonged speech, prolonged expiratatory phase, no audible wheezes or cough Ext: grimmace x5 throughout visit r/t R shoulder, limited movement at elbow, does not move shoulder, able to move fingers Psych: cooperative, MS clear at start of exam, speech clear, thought process/content normal; insight/judgment limited to fair Results Last Vital Signs Temp 97.9 F 04/01/23 23:35 Pulse 70 04/01/23 23:35 Resp 20 04/01/23 23:35 BP 108/72 04/01/23 23:35 Pulse Ox 96 04/01/23 23:35 Labs 04/02/23 06:55 04/02/23 06:55 Labs: Laboratory Results - last 24 hr 04/01/23 04/02/23 04/02/23 16:20 05:35 06:55 WBC RBC Hgb Hct MCV MCH MCHC RDW Plt Count MPV Immature Gran % Neutrophils % Lymphocytes % Monocytes % Eosinophils % Basophils % Nucleated RBC % Absolute Neutrophils Absolute Lymphocytes Absolute Monocytes Absolute Eosinophils Absolute Basophils Sodium 128 L Potassium 3.3 L 3.4 L Chloride 92 L Carbon Dioxide 20.8 L Anion Gap 15.2 H BUN 115 H* Creatinine 5.9 H* Est GFR (CKD-EPI 2020) 8.88 Glucose 222 H Calcium 9.5 Phosphorus Cancelled 8.6 H 04/02/23 06:55 WBC 8.95 RBC 3.28 L Hgb 8.7 L Hct 27.2 L MCV 83 MCH 26.5 L MCHC 32.0 RDW 17.3 H Plt Count 283 MPV 8.5 Immature Gran % 0.8 Neutrophils % 75.9 Lymphocytes % 12.4 Monocytes % 8.8 Eosinophils % 1.7 Basophils % 0.4 Nucleated RBC % 0.0 Absolute Neutrophils 6.79 H Absolute Lymphocytes 1.11 L Absolute Monocytes 0.79 Absolute Eosinophils 0.15 Absolute Basophils 0.04 Sodium Potassium Chloride Carbon Dioxide Anion Gap BUN Creatinine Est GFR (CKD-EPI 2020) Glucose Calcium Phosphorus
[2023-04-02] MEDS: Insulin Aspart 300 UNITS/3 ML PEN SC ×7 (09:02→20:55)
[2023-04-02 09:36] VITALS: BP 120/72; PULSE 77; RESP 18; TEMP 36.9; O2SAT 98
[2023-04-02] MEDS: Lactated Ringers 500 ML 100 ML IV (10:21)
[2023-04-02 13:16] LABS: INR 1.7 (0.9-1.1); Prothrombin Time 17.5 sec (9.3-11.0)
[2023-04-02] MEDS: Bupivacaine 0.5% Pres-Free 10 ML VIAL IJ (13:20)
[2023-04-02] MEDS: methylPREDNISolone ACETATE 80 MG/ML VIAL IJ (13:20)
[2023-04-02 14:54] VITALS: BP 98/60; PULSE 64; RESP 20; TEMP 36.1; O2SAT 99
--- NOTE | 2023-04-02 15:04 | W.PM.PROGNOT ---
Date of Service Date of service: 04/02/23 Time of Service: 15:04 Assessment and Plan Assessment and plan (1) Chronic kidney disease: Status: Chronic Assessment and plan: acute on chronic renal failure. He is probably a little over diuresed. Diuretics on hold. Patient given small fluid bolus yesterday. Given his hx of right heart failure (although his last echocardiogram from 01/01/23 showed normal LV systolic function w/ LVEF 55%, his RV was not well visualized. Likely his right sided failure is d/t his LUCAS. RVSP could not be estimated on his last echo. BUN and creatinine have not improved. BUN up to 115 and creatinine up to 5.9. Patient will continue on iv fluids. continue to monitor electrolytes and BUn and creatinine and urine output. (2) Hyperphosphatemia: Status: Acute Assessment and plan: begin PhosLo w/ meals; monitor phosphorus levels (3) Right wrist pain: Status: Acute Assessment and plan: probably gout. will check uric acid levels and xray of wrist and begin empiric prednisone. I have text messaged Dr. Harris to see if he would consider aspiration of the joint to confirm diagnosis. Patient is not candidate for colchicine d/t his CKD (4) Hypokalemia: Status: Acute Assessment and plan: still w/ low potassium despite KENNETH on CKD. receiving supplementation. monitor levels (5) Right shoulder pain: Status: Acute Assessment and plan: new complaint since yesterday. Possible right shoulder rotator cuff injury. will get xray to rule out any na abnormalities/trauma. If negative then will ask P.T. to work w/ him and I will give him further narcotic analgesic, may benefit from steroid burst or even ask ortho to evaluate. I have increased his gabapentin to 200 mg hs and will give him low dose hydromorphone. Dr. Tian gave him injection of corticosteroids today (6) Right heart failure: Status: Acute Assessment and plan: monitor respiratory status while the diuretics are on hold. Continue CPAP. continue to hold diuretics for now. No evidence of worsening edema despite iv fluids (7) Acute UTI: Status: Acute Assessment and plan: Due to klebsiella + mixed sapphire and now also yeast, present on admission, associated with an indwelling catheter. Finished w/ ceftriaxone. Continue fluconazole. Griffin exchanged 07/30/23. Professional time spent interviewing and examining patient, discussion of goals of care with hospital team (care management, nursing and consulting professionals) was 30 minutes. (8) Anemia: Status: Chronic Assessment and plan: likely d/t his CKD (9) Atrial fibrillation: Status: Chronic Assessment and plan: Rate controlled. Continue metoprolol. Continue coumadin. INR subtherapeutic again today (1.7). I have adjusted his warfarin. Will give him 3 mg tonight then resume his prior home dose of 2.5 mg nightly every Saturday, Saturday, Saturday and Saturday (10) Moderate pulmonary arterial systolic hypertension: Status: Chronic Assessment and plan: Continue CPAP. Has LUCAS/OHS/pulmonary hypertension. Hold torsemide/metolazone. (11) Obstructive nephropathy: Status: Acute Assessment and plan: See CKD Continue tamsulosin. Chronic indwelling griffin cath. (12) Hyperlipidemia: Assessment and plan: Continue pravastatin. (13) Diabetes mellitus type 2 in obese: Assessment and plan: Continue basal bolus insulin was adjusted to moderate SSI w/ meals. Jardiance d/c'ed due to worsening risk of UTIs, including fungal UTis. (14) LUCAS on CPAP: Assessment and plan: Continue CPAP (15) Pressure ulcer of right ischium: Status: Acute Assessment and plan: deep tissue wound, present on admission. General surgery recommends wound care; no surgical intervention needed. (16) DVT prophylaxis: Status: Acute Assessment and plan: SC heparin while subtherapeutic on coumadin (17) Discharge planning issues: Status: Acute Assessment and plan: DNR/DNI Continues to require hospitalization. Patient has been accepted to [facility] however transfer has been delayed due to his renal fxn not recovering and his complications w/ low K and shoulder pain and now right wrist pain. Subjective Subjective Interval history since last seen: Patient feels weak, states he just has no strength. He requires at least two people assist. his potassium remains low today at 3.4 but improved from yesterday. I have increased his daily dose to 30 meq bid.His phosphorus is high at 8.6. I have added PhosLo to his regimen. His BUN and creatinine remain high at 115 and 5.9. His baseline prior to admission was 4.8 and his baseline BUN was 60. I have reordered iv fluids to be given today. He is not ready for dc to [facility] today. I went over his condition and his treatment w/ the patient and his . Patient had his right shoulder injected w/ steroids by Dr. Harris However, patient now having acute swelling and pain in the right wrist. he has no fevers. he is unable to flex or extend the wrist and there is palpable tenderness and swelling of the wrist over the dorsal surface but no redness. Exam Narrative Exam Narrative: Morbidly obese white male, who is sitting up in his chair. no acute distress. no dyspnea or CP Lungs: clear Heart: irregularly irregular but at controlled rate, I did not hear any murmur or gallop Abdomen: obese, soft, nontender Legs: bronze/red discoloration c/w chronic stasis skin changes. No weeping of any fluid from the skin and no pitting edema Objective Last Vital Signs Temp 36.1 C L 04/02/23 14:54 Pulse 64 04/02/23 14:54 Resp 20 04/02/23 14:54 BP 98/60 L 04/02/23 14:54 Pulse Ox 99 04/02/23 14:54 Laboratory Results - last 24 hr 04/01/23 04/02/23 04/02/23 16:20 05:35 06:55 WBC RBC Hgb Hct MCV MCH MCHC RDW Plt Count MPV Immature Gran % Neutrophils % Lymphocytes % Monocytes % Eosinophils % Basophils % Nucleated RBC % Absolute Neutrophils Absolute Lymphocytes Absolute Monocytes Absolute Eosinophils Absolute Basophils PT INR Sodium 128 L Potassium 3.3 L 3.4 L Chloride 92 L Carbon Dioxide 20.8 L Anion Gap 15.2 H BUN 115 H* Creatinine 5.9 H* Est GFR (CKD-EPI 2020) 8.88 Glucose 222 H Calcium 9.5 Phosphorus Cancelled 8.6 H 04/02/23 04/02/23 06:55 13:00 WBC 8.95 RBC 3.28 L Hgb 8.7 L Hct 27.2 L MCV 83 MCH 26.5 L MCHC 32.0 RDW 17.3 H Plt Count 283 MPV 8.5 Immature Gran % 0.8 Neutrophils % 75.9 Lymphocytes % 12.4 Monocytes % 8.8 Eosinophils % 1.7 Basophils % 0.4 Nucleated RBC % 0.0 Absolute Neutrophils 6.79 H Absolute Lymphocytes 1.11 L Absolute Monocytes 0.79 Absolute Eosinophils 0.15 Absolute Basophils 0.04 PT 17.5 H INR 1.7 H Sodium Potassium Chloride Carbon Dioxide Anion Gap BUN Creatinine Est GFR (CKD-EPI 2020) Glucose Calcium Phosphorus Time Spent with Patient Time Spent with Patient: 35-49 minutes Time was spent: preparing to see the patient(eg.review tests), ordering medications,tests, procedures, referring, communicating with other health landcare facilitator, indepentently interpreting results, counseling the patient and care coordination
--- NOTE | 2023-04-02 15:29 | PDOC.CMPRO ---
Date of service: 04/02/23 Time of Service: 15:29 Care Management Progress Note Progress Note Text Progress Note Text: S/O: ? Sav was sitting up in a chair when CM met with him. He was planning on discharging to the [facility] for STR today, however his potassium needs to be repleted and his Kidney function requires monitoring. Possible discharge tomorrow, [facility] W/C van will be coordinated. Sav also has been complaining about pain in his right hand so an xray has been ordered. CM will follow. A: 82 year old male admitted to [facility] on 03/21/23 for Anemia, acute respiratory failure, UTI P:?PT recommendation is SNF for STR. A referral was sent to the [facility], bed offer was made and pt accepted. Per provider, Sav is not ready for discharge but may be tomorrow. CM will coordinate transportation with [facility] wheelchair van. CM will continue to follow and support discharge needs.
[2023-04-02 15:53] LABS: Uric Acid 9.2 mg/dL (3.5-7.2)
--- NOTE | 2023-04-02 16:30 | PT.INTREAT ---
Date of service: 04/02/23 Time of Service: 10:48 PT Notes Visit Reasons: Anemia, Acute Respiratory Failure, UTI Inpatient Physical Therapy Treatment Note [facility] Date: 04/02/23 PRECAUTIONS: Fall, standard, activity as tolerated SUBJECTIVE: Patient reports he wrenched his shoulder on Saturday, now shoulder arm and hand are excruciating. 8/10 pain with movement, 3/10 pain at rest. OBJECTIVE: BED MOBILITY/TRANSFERS Sit-stand: Max x4 Stand-sit: Max x4 Bed-Chair: Max x4 Chair-bed: Max x4 GAIT Assistive Device: none Weight bearing: full Assist: Max x4-5 Distance: 3 feet Deviation: Patient struggles more today to take side steps. Becomes overwhelmed, sits while still not optimally lined up with chair. Reports feeling too weak. Reports too much pain. Performs better after this therapist points out that the injured shoulder should not affect his legs. THERACT: Spent time educating patient on transfer techniques, talking through and then practicing chair to chair transfers. ASSESSMENT: Patient is struggling with this recent setback. C/o pain, fatigue, reports not being up for much therapy today. PLAN: Continue strengthening per plan of care. Patient expecting x ray of hand. Possible OT referral for shoulder / hand assesment? TREATMENT CODE/TIME: 21104 Ther Act 8 minutes beginning at 10:48, 18 minutes beginning at 13:45
[2023-04-02] MEDS: predniSONE 20 MG TAB 60 MG PO (16:33)
[2023-04-02] MEDS: methylPREDNISolone ACETATE 40 MG/ML VIAL IJ (17:00)
[2023-04-02] MEDS: Bupivacaine 0.25% Pres-Free 10 ML VIAL IJ (17:00)
--- NOTE | 2023-04-02 19:32 | OCONE_ITS ---
Date of service: 04/02/23 Time of Service: 12:00 History of Present Illness History of Present Illness Chief Complaint: Right Shoudler and Wrist/Hand Pain Narrative: Sav is an 82-year-old male who has multiple known orthopedic issues. He is currently been hospitalized for acute on chronic kidney failure. He has had progressive weakness and decline. I have seen him previously for his bilateral knees. He had failure of a knee replacement with ongoing bilateral knee pain after knee replacement. He has multiple joints that are arthritic but was not deemed a surgical candidate at that time. Unfortunate, he has had further medical decline. During his hospitalization he was working physical therapy when he slid down from the bed and doing so use his right arm to help stabilize some support himself. After that he had significant increase in pain about his right shoulder. I was consulted for this right shoulder pain. Previous x-rays were obtained which show severe rotator cuff tear arthropathy about the right shoulder, grade 4. Additionally, on examination he reports pain about the shoulder. He points to the shoulder. He reports any attempted motion causes pain. However, he also is having significant pain within his wrist. He describes his whole hand when he moved his hand but truly isolate the pain to the wrist joint itself. He denies having any these issues before. He denies any overlying changes to the wrist itself or the shoulder. He denies any skin changes. Denies history of gout. He is on blood thinners. Consults Consult date: 04/02/23 Requesting physician: Robert Traore Consult Reason Right shoulder and wrist pain Assessment and Plan Assessment and plan (1) Arthritis of right shoulder region: Status: Acute Assessment and plan: Sav is an 82-year-old who has severe arthritis of his right shoulder. He likely aggravated his underlying arthritis with the use of the right arm during his slide. It is notably severe. He has not had any active treatments for this and. Therefore, I did offer an injection to the right shoulder. He is unable to tolerate anti-inflammatories by mouth. He is unable to participate in physical therapy given the pain. He tolerated the injection well and did report some pain immediately after the injection was completed. (2) Arthritis of right wrist: Status: Acute Assessment and plan: Simile for the right wrist Sav has notable arthritis. This mostly involves the radiolunate joint but there is also changes in the DRUJ and throughout the hand seen on this wrist film. Furthermore, there is some calcific type change seen around the joint and adjacent the DRUJ which may represent chondrocalcinosis. Gout is also a likely potential given his high uric acid level but that is not terribly uncommon given his kidney disease. He does not have the warmth and swelling out expect with gout nor was there much fluid, barely 1 cc of normal- appearing fluid. Nevertheless, I injected the wrist joint and he immediately felt some improvement with the pain of the wrist with passive and active range of motion. I am hopeful this will calm it down from this acute flare that he is having. (3) Chondrocalcinosis articularis: Status: Acute Review of Systems All systems reviewed & are unremarkable except as noted in HPI and below PFSH All Active Problems (Updated 04/03/23 @ 05:52 by Papa Harris MD) Chondrocalcinosis articularis (Acute) Arthritis of right shoulder region (Acute) Arthritis of right wrist (Acute) Right wrist pain (Acute) Hyperphosphatemia (Acute) Hypokalemia (Acute) Do not resuscitate (Acute) Advance care planning (Acute) Right shoulder pain (Acute) Pressure ulcer of right ischium (Acute) Discharge planning issues (Acute) DVT prophylaxis (Acute) Fever (Acute) Chronic indwelling Knox catheter (Acute) Symptomatic anemia (Acute) Acute renal failure (Acute) Acute UTI (Acute) Diabetes mellitus (Chronic) Atrial fibrillation (Chronic) on coumadin Chronic kidney disease (Chronic) 2020- borderline stage 4 Venous insufficiency (chronic) (peripheral) (Acute) Nail dystrophy (Acute) COVID-19 (Acute ~08/05/22) Thumb pain (Acute) Right heart failure (Acute) Urinary retention (Acute) 11/2021, ultrasound shows significant pretty and post void residual- minimal response to voiding Kidney stones (Chronic) Longstanding history of multiple stones 11/2021 ultrasound showed multiple stones in kidney, 1 stone possibly in right ureter Anemia (Chronic) Chronic mild anemia, associated with CKD Obstructive sleep apnea (Chronic) cpap Acute on chronic heart failure with preserved ejection fraction (Acute) Hives (Acute) Obesity (Acute 02/11/13) Obstructive nephropathy (Acute) Moderate pulmonary arterial systolic hypertension (Chronic) Chronic anticoagulation (Chronic) Polyp of colon (Chronic) Rosacea (Chronic) Constipation (Chronic) CHF (congestive heart failure) (Chronic) Medical History Atrial fibrillation BPH (benign prostatic hyperplasia) Diabetes mellitus type 2 in obese Essential hypertension, benign GERD (gastroesophageal reflux disease) Hyperlipidemia Nephrolithiasis Obesity hypoventilation syndrome LUCAS on CPAP Palliative care patient Surgical History Cholecystectomy (~1985) Colonoscopy - MAC (~2002) Replacement of total knee joint B/L Tonsillectomy and adenoidectomy Family History Mother Diabetes Heart disease Father Neoplasm STOMACH Brother Neoplasm Brother No problems noted. Daughter No problems noted. Social History Smoking/Tobacco Use Status: Never Second Hand Exposure: No Smoking risk assessment performed?: Yes Alcohol Intake: current Alcohol Intake frequency: holidays/special occasions only Drug use: Never Substance use type: does not use Caregiver/Support person: Yes Household members: spouse Housing: house Communication Needs: Hard of Hearing Do you need help understanding health information?: Often Pets and animals: No Sexually active: No What is your relationship status?: How often do you talk on the phone with friends or family?: decline to answer How often do you get together with friends or relatives?: decline to answer How often do you attend zoroastrian or spiritism services?: decline to answer Do you belong to any clubs or organized social groups?: decline to answer Panel score (0-1 are the most socially isolated patients): 1 What type of physical activity do you participate in: walking Duration: < 15 minutes/day Frequency: daily Special amor needs: No Do you feel safe at home: Yes Do you feel safe in your relationship?: Yes Exam Narrative Exam Narrative: Sitting up in the chair on examination. Large gentleman. Alert and oriented to person and place. Evaluation of the right shoulder shows no overlying skin defects. Any attempted active nor passive range of motion causes pain. There is crepitus with passive range of motion. True motor testing of the right shoulder was not possible gi nuris his limitations. Pain to palpation about the glenohumeral joint. Only able to demonstrate 30 degrees of abduction about the right shoulder, once again limited by pain, habitus and positioning. During this exam though he also complained of right hand and wrist pain. Evaluation of this shows mild swelling around the right wrist but no gross effusion. No overlying skin changes. No erythema. His hand shows a somewhat resting intrinsic plus position with prominence of the dorsal metacarpals and MCP joints in a flexed position. He is able to demonstrate active finger flexion extension although causes pain. He points to the area of the fingers but more specifically the wrist. If I isolate the wrist he is able to demonstrate finger motion. He has no pain to palpation along the forearm. He has no swelling to the fingers. No pain along the flexor tendons. Passive range of motion of the wrist causes exquisite pain. He also has pain with palpation of the wrist itself. Palpable radial pulse. Sensation tact light touch over the median, radial, ulnar nerve. Results Last Vital Signs Temp 36.6 C 04/02/23 23:14 Pulse 60 04/02/23 23:14 Resp 20 04/02/23 23:14 BP 106/66 04/02/23 23:14 Pulse Ox 93 04/02/23 23:14 Labs 04/02/23 06:55 04/02/23 06:55 Labs: Laboratory Results - last 24 hr 04/02/23 04/02/23 04/02/23 06:55 06:55 13:00 WBC 8.95 RBC 3.28 L Hgb 8.7 L Hct 27.2 L MCV 83 MCH 26.5 L MCHC 32.0 RDW 17.3 H Plt Count 283 MPV 8.5 Immature Gran % 0.8 Neutrophils % 75.9 Lymphocytes % 12.4 Monocytes % 8.8 Eosinophils % 1.7 Basophils % 0.4 Nucleated RBC % 0.0 Absolute Neutrophils 6.79 H Absolute Lymphocytes 1.11 L Absolute Monocytes 0.79 Absolute Eosinophils 0.15 Absolute Basophils 0.04 PT 17.5 H INR 1.7 H Sodium 128 L Potassium 3.4 L Chloride 92 L Carbon Dioxide 20.8 L Anion Gap 15.2 H BUN 115 H* Creatinine 5.9 H* Est GFR (CKD-EPI 2020) 8.88 Glucose 222 H Uric Acid Calcium 9.5 Phosphorus 8.6 H 04/02/23 15:34 WBC RBC Hgb Hct MCV MCH MCHC RDW Plt Count MPV Immature Gran % Neutrophils % Lymphocytes % Monocytes % Eosinophils % Basophils % Nucleated RBC % Absolute Neutrophils Absolute Lymphocytes Absolute Monocytes Absolute Eosinophils Absolute Basophils PT INR Sodium Potassium Chloride Carbon Dioxide Anion Gap BUN Creatinine Est GFR (CKD-EPI 2020) Glucose Uric Acid 9.2 H Calcium Phosphorus Imaging Imaging Studies: X-ray of the right shoulder shows severe arthritis about the right shoulder. He has [id number] articulation of the glenohumeral joint with large osteophytes and some deformity but also a high riding humeral head which would suggest that he has both glenohumeral arthritis as well as rotator cuff tear arthropathy. No fracture. No suspicious lesions. X-ray of the right wrist demonstrates severe arthritis of the right wrist, likely from scapholunate injury. However, he has grade 4 arthritis of the radiolunate joint. There is also flattening of the DRUJ with osteophytes and calcification seen along the distal ulna, likely represent some type of chondrocalcinosis or other calcific Disease of the distal radial ulnar joint and the wrist joint itself. There is also some moderate arthritis seen within the first CMC joint as well as the thumb MCP joint. Procedures Joint Aspiration/Injection Joint Asp./Inject. 1: Time out performed: Yes Side of body: right Joint aspirated: shoulder Medication injected, if any: other (80 mg methylprednisolone and 8 cc of 0.5% bupivacaine) Patient tolerated procedure: well Complications: none Joint Asp./Inject. 2: Time out performed: Yes Side of body: right Joint aspirated: wrist/hand Ultrasound guidance: No Skin prep: other (Alcohol) Needle size used: 22G Fluid obtained: clear Total fluid obtained (ml): 1 Medication injected, if any: other (40 mg of methylprednisolone and 3 cc of 0.5% bupivacaine) Patient tolerated procedure: well Complications: none
[2023-04-02] MEDS: Magnesium Oxide 400 MG TAB PO (19:55)
[2023-04-02] MEDS: Gabapentin 100 MG CAP 200 MG PO (19:55)
[2023-04-02] MEDS: Tamsulosin 0.4 MG CAPCR PO (19:55)
[2023-04-02] MEDS: Nystatin POWDER 60 GM JAR TP (19:55)
[2023-04-02] MEDS: Pravastatin 40 MG TAB PO (19:56)
[2023-04-02] MEDS: Melatonin 3 MG TAB 9 MG PO (19:56)
[2023-04-02] MEDS: Insulin Glargine 300 UNITS/3 ML PEN 40 UNITS SC (19:56)
[2023-04-02 23:14] VITALS: BP 106/66; PULSE 60; RESP 20; TEMP 36.6; O2SAT 93
--- NOTE | 2023-04-03 | DI.US_ITS ---
Exam(s) US RENAL EXAM: US RENAL CLINICAL HISTORY: worsening azotemia. TECHNIQUE: Reardon scale, color and spectral Doppler were used. COMPARISON: US US RENAL from 12/31/2022 US US ECHOCARDIOGRAM from 01/01/2023 FINDINGS: Exam is limited patient immobility and body habitus.. The left kidney is poorly visualized. Renal size in cm: Right: 12.7 left: 11.7 Echogenicity: Normal Hydronephrosis: Mild to moderate left hydronephrosis. Cyst or mass: 6 cm maximal dimension cyst upper pole right kidney. 2.1 centimeter cyst lower pole ri ght kidney. Other smaller cysts right renal cysts seen. Nephrolithiasis: Multiple large echogenic foci are noted in the left kidney, largest measures up to 3 cm. 6 millimeter stone lower pole right kidney. Bladder:Not well evaluated. Prevoid vol:40 Postvoid vol: IMPRESSION: Multiple left renal stones are seen. There there is mild to moderate left hydronephrosis. 6 millimeter stone lower pole right kidney. Renal cysts. DATA REPOSITORY:
[2023-04-03] MEDS: Heparin 5,000 UNITS/ML VIAL 5000 UNITS SC ×2 (06:15→14:24)
[2023-04-03 07:33] LABS: INR 1.8 (0.9-1.1); Prothrombin Time 18.1 sec (9.3-11.0)
[2023-04-03 07:57] LABS: Anion Gap 16.8 mmol/L (3-11); CO2 18.2 mmol/L (21.0-32.0); Calcium 9.8 mg/dL (8.5-10.1); Chloride 92 mmol/L (98-107); Estimated GFR 9.06 (mL/min/1.73m2); Glucose 374 mg/dL (74-106); Potassium 3.8 mmol/L (3.5-5.1); Sodium 127 mmol/L (136-145)
[2023-04-03 07:59] LABS: BUN 118 mg/dL (7-18); CREATININE 5.8 mg/dL (0.70-1.30)
[2023-04-03 08:01] VITALS: BP 122/68; PULSE 73; RESP 20; RESP 22; TEMP 36.8; O2SAT 94
[2023-04-03] MEDS: Omeprazole 20 MG CAPCR PO (08:28)
[2023-04-03] MEDS: Sodium Bicarbonate 650 MG TAB PO ×3 (08:28→20:21)
[2023-04-03] MEDS: Fluconazole 100 MG TAB PO (08:28)
[2023-04-03] MEDS: Docusate Sodium 100 MG CAP PO (08:28)
[2023-04-03] MEDS: predniSONE 20 MG TAB 40 MG PO (08:28)
[2023-04-03] MEDS: Potassium Chloride 10 MEQ CAPCR 30 MEQ PO ×2 (08:28→20:21)
[2023-04-03] MEDS: Polyethylene Glycol 3350 17 GM PACKET PO (08:28)
[2023-04-03] MEDS: Insulin Aspart 300 UNITS/3 ML PEN SC ×7 (08:29→21:10)
[2023-04-03] MEDS: Metoprolol CR 100 MG TABCR PO (08:29)
[2023-04-03] MEDS: Finasteride 5 MG TAB PO (08:29)
[2023-04-03] MEDS: Normal Saline Flush 10 ML SYR IVP ×3 (08:32→16:27)
[2023-04-03] MEDS: Insulin NPH-Human 300 UNITS/3 ML PEN 20 UNIT SC (09:06)
--- NOTE | 2023-04-03 11:18 | PGE_ITS ---
Date of Service Date of service: 04/03/23 Time of Service: 11:18 Assessment and Plan Assessment and plan (1) KENNETH (acute kidney injury): Status: Acute Assessment and plan: despite judicious fluid boluses over past three days, he remains azotemic w/ persistently elevated BUN and creatinine at 118 and 5.8. However he continues to produce good urine ouput. Yesterday he had 2825 in urine output. The day before he had urine output of 2125 and 2450 on 03/31. He has been off his diuretics since 04/01 (last dose of metolazone and torsemide was on 03/31> He was given LR 1178 mL on 03/31 and another 500 mL on 04/01 . I discussed his case w/ [facility] nephrology fellow, Dr. Finn who recommended the followin. assess volume status w/ POCUS looking at his IVC 2. obtain renal ultrsound to asses for obstructive uropathy 3. match his urine output w/ iv fluids at rate to match his urine output and provide for insensible losses 4. obtain UA and urine sodium, creatinine and osmolality and plasma osmolality and VBG to assess his FeNa and urine osmolallity to plasma osmolality to help determine prerenal vs renal azotemia 5. calculate his bicarbonate deficit and correct w/ sodium bibarbonate 6. set him up w/ outpatient follow up in renal failure clinic at [facility] So far I have already put the patient on bicarbonate therapy and put him on phosphate binding medicine. As for his volume, he probably has not had adequate volume replacement. I did attemtp POCUS echo but d/t his body habitus this was an imperfect study. Ultrasound dept is here for bedside renal and bladder ultras ound. I have increased his iv fluids and changed to NS at 150 mL/hr to correct his volume deficit, however this may worsen his metabolic acidosis w/ hyperchloremia. I will check VBG and serial BMP. Renal US was done this today and came back showing new hydronephrosis on the left. This was new compared to prior renal US done in December. He also has hx of multiple left sided renal stones. I have spoken w/ Dr. Santos who will see him first thing tomorrow and I have made the patient NPO for cystoscopy and ureteral stenting. I have stopped his warfarin and heparin in preparation for urologic procedure. I will repeat his coags in the morning prior to surgery. Professional time spent interviewing and examining patient, discussion of goals of care with hospital team (care management, nursing and consulting professionals) was 45 minutes. (2) Chronic kidney disease: Status: Chronic Assessment and plan: acute on chronic renal failure. He is probably a little over diuresed. Diuretics on hold. Patient given small fluid bolus yesterday. Given his hx of right heart failure (although his last echocardiogram from 01/01/23 showed normal LV systolic function w/ LVEF 55%, his RV was not well visualized. Likely his right sided failure is d/t his LUCAS. RVSP could not be estimated on his last echo. BUN and creatinine have not improved. BUN up to 115 and creatinine up to 5.9. Patient will continue on iv fluids. continue to monitor electrolytes and BUn and creatinine and urine output. see above under KENNETH (3) Hyperphosphatemia: Status: Acute Assessment and plan: begin PhosLo w/ meals; monitor phosphorus levels (4) Hypokalemia: Status: Acute Assessment and plan: still w/ low potassium despite KENNETH on CKD. receiving supplementation. monitor levels (5) Obstructive nephropathy: Status: Acute Assessment and plan: See CKD Continue tamsulosin. Chronic indwelling griffin cath. Now w/ new left sided hydronephrosis probably d/t nephrolithiasis; will keep NPO for possible cystoscopy and stent tomorrow. I discussed case w/ Dr. Santos. (6) Right heart failure: Status: Acute Assessment and plan: monitor respiratory status while the diuretics are on hold. Continue CPAP. continue to hold diuretics for now. 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 Has LUCAS/OHS/pulmonary hypertension. Hold torsemide/metolazone. (8) Atrial fibrillation: Status: Chronic Assessment and plan: Rate controlled. Continue metoprolol. Continue coumadin. INR subtherapeutic again today (1.8). cont. home dose of 2.5 mg nightly every Saturday, Saturday, Saturday and Saturday Warfarin and heparin stopped for now in preparation for possible cystoscopy and stent for tomorrow. (9) Anemia: Status: Chronic Assessment and plan: likely d/t his CKD, erythropoietin level sent (10) Right wrist pain: Status: Acute Assessment and plan: probably gout. will check uric acid levels and xray of wrist and begin empiric prednisone. I have text messaged Dr. Harris to see if he would consider aspiration of the joint to confirm diagnosis. Patient is not candidate for colchicine d/t his CKD (11) Right shoulder pain: Status: Acute Assessment and plan: new complaint since yesterday. Possible right shoulder rotator cuff injury. will get xray to rule out any na abnormalities/trauma. If negative then will ask P.T. to work w/ him and I will give him further narcotic analgesic, may benefit from steroid burst or even ask ortho to evaluate. I have increased his gabapentin to 200 mg hs and will give him low dose hydromorphone. Dr. Tian gave him injection of corticosteroids today (12) Acute UTI: Status: Acute Assessment and plan: Due to klebsiella + mixed sapphire and now also yeast, present on admission, associated with an indwelling catheter. Finished w/ ceftriaxone. Continue fluconazole. Griffin exchanged 07/30/23. (13) Hyperlipidemia: Assessment and plan: Continue pravastatin. (14) Diabetes mellitus type 2 in obese: Assessment and plan: Continue basal bolus insulin was adjusted to moderate SSI w/ meals. Jardiance d/c'ed due to worsening risk of UTIs, including fungal UTis. (15) LUCAS on CPAP: Assessment and plan: Continue CPAP (16) Pressure ulcer of right ischium: Status: Acute Assessment and plan: deep tissue wound, present on admission. General surgery recommends wound care; no surgical intervention needed. (17) DVT prophylaxis: Status: Acute Assessment and plan: SC heparin while subtherapeutic on coumadin (18) Discharge planning issues: Status: Acute Assessment and plan: DNR/DNI Continues to require hospitalization. Patient has been accepted to [facility] however transfer has been delayed due to his renal fxn not recovering and his complications w/ low K and shoulder pain and now right wrist pain. Subjective Subjective Interval history since last seen: Sav says that his right shoulder and right wrist is much better since Dr. Harris injected them w/ corticosteroids. I discussed w/ Sav his labs which has not shown any recovery of his renal function. I asked him whether or not he would consider hemodialysis. He says that he would consider this if it is necessary. I told him that I would like to discuss his case w/ [facility] nephrology and that he needs an appointment w/ them in the near future as he is headed towards needing HD sooner rather than later Exam Narrative Exam Narrative: Sav is alert, lying in bed, no acute distress, not requiring any oxygen, not dyspnea nor any tachypnea Skin has the appearance of CKD i.e. Lungs: clear Heart: Abdomen: obese, soft, nontender Legs: no pitting edema, chronic venous skin changes w/ dark pigmentation, skin sensitive to touch Right arm: improved ROM of his wrist and shoulder Objective Last Vital Signs Temp 36.8 C 04/03/23 08:01 Pulse 73 04/03/23 08:01 Resp 22 04/03/23 08:01 BP 122/68 04/03/23 08:01 Pulse Ox 94 04/03/23 08:01 Laboratory Results - last 24 hr 04/02/23 04/02/23 04/03/23 13:00 15:34 06:47 PT 17.5 H INR 1.7 H Sodium 127 L Potassium 3.8 Chloride 92 L Carbon Dioxide 18.2 L Anion Gap 16.8 H BUN 118 H* Creatinine 5.8 H* Est GFR (CKD-EPI 2020) 9.06 Glucose 374 H Uric Acid 9.2 H Calcium 9.8 04/03/23 06:47 PT 18.1 H INR 1.8 H Sodium Potassium Chloride Carbon Dioxide Anion Gap BUN Creatinine Est GFR (CKD-EPI 2020) Glucose Uric Acid Calcium Time Spent with Patient Time Spent with Patient: 35-49 minutes Time was spent: preparing to see the patient(eg.review tests), ordering medications,tests, procedures, referring, communicating with other health medicare compliance auditor, indepentently interpreting results, counseling the patient and care coordination
[2023-04-03 12:03] LABS: Glucose 430 mg/dL (74-106)
[2023-04-03 13:33] LABS: BE (Venous) -9 mmol/L (-2-3); HCO3 (Venous) 17 mmol/L (23-28); pCO2 (Venous) 29 mmHg (41-51); pH (Venous) 7.36 (7.31-7.41); pO2 (Venous) 133 mmHg
[2023-04-03 13:45] LABS: O2 Sat (Venous) > 99 %
--- NOTE | 2023-04-03 13:45 | PT.INNT ---
PT Notes Visit Reasons: Anemia, Acute Respiratory Failure, UTI Pt getting final preparations for transport downstairs for ultrasound and UTI testing. inside pt room.
[2023-04-03] MEDS: Normal Saline 1,000 ML 150 ML IV ×2 (14:24→22:43)
[2023-04-03] MEDS: Nystatin POWDER 60 GM JAR TP ×2 (14:46→20:22)
[2023-04-03 14:54] VITALS: BP 101/61; PULSE 78; RESP 24; TEMP 36.6; O2SAT 98
[2023-04-03 15:25] LABS: Bilirubin Negative (Negative); Blood Large (Negative); Clarity Cloudy (Clear); Glucose >=1000 mg/dL (Negative); Ketones Negative (Negative); Leukocyte Esterase Large (Negative); Nitrite Negative (Negative); Specific Gravity 1.015 (1.005-1.025); Urobilinogen 0.2 mg/dL (Up to 0.2); pH 5.5 (5-8)
[2023-04-03 15:30] LABS: POTASSIUM,URINE RANDOM 38 mmol/L; Sodium, Urine 28 mmol/L
[2023-04-03 15:35] LABS: Bacteria Many HPF (Negative); C & S Indicated? Yes; Casts Negative LPF (Negative); Crystals Negative HPF (Negative); Epithelial Cells Few HPF (Negative); Mucus Trace (Negative); WBC >50 HPF (0-5)
--- NOTE | 2023-04-03 15:51 | PDOC.CMDIS ---
Date of service: 04/03/23 Time of Service: 15:51 Care Management Discharge Plan Reason for Hospitalization: Anemia, acute respiratory failure, UTI
--- NOTE | 2023-04-03 15:52 | PDOC.CMPRO ---
Date of service: 04/03/23 Time of Service: 15:52 Care Management Progress Note Progress Note Text Progress Note Text: S/O: ? Sav was sitting up in a chair when CM met with him. He was planning on discharging to the [facility] for STR again today, however further medical work up on his Kidney's is needed, per Hospitalist. New referral and PA will be needed when patient is nearing medical readiness for discharge, as the prior auth the [facility] obtained was good through today and they are unable to hold the bed. CM will follow. A: 82 year old male admitted to [facility] on 03/21/23 for Anemia, acute respiratory failure, UTI P:? Patient is not medically ready for discharge. PT recommendation is SNF for STR, when medically ready. The [facility] is unable to hold the bed and will need a New Referral and PA. CM will continue to follow and support discharge needs.
--- NOTE | 2023-04-03 16:42 | PT.INTREAT ---
PT Notes Visit Reasons: Anemia, Acute Respiratory Failure, UTI Inpatient Physical Therapy Treatment Note [facility] Date: 04/03/23 PRECAUTIONS: Fall, standard, activity as tolerated SUBJECTIVE: Sav is requesting to get up to recliner for dinner. Reports being very nervous about falling. OBJECTIVE: BED MOBILITY/TRANSFERS Scooting in bed: independent supine-sit: max A x 3 Sit-stand: CGA x 2 with bed elevated Stand-sit: CGA x 2, cues for hand placement Bed-Chair: CGA x 2, assist of 1 for line management GAIT Assistive Device: none Weight bearing: full Assist: CGA x 2, assist of 1 for line management Distance: 4 feet Deviation: THERACT: Instruction in bed mobility techniques, equipment management ASSESSMENT: Improving independence with shoulder pain under control. Very fatigued with transfer. PLAN: Continue progressing strengthening and transfer training, conditioning for improved activity tolerance. TREATMENT CODE/TIME: 11479 Ther Act 15 minutes beginning at 1620
--- NOTE | 2023-04-03 18:13 | PTTR_ITS ---
Date of service: 04/03/23 Time of Service: 11:25 PT Notes Visit Reasons: Anemia, Acute Respiratory Failure, UTI Inpatient Physical Therapy Treatment Note [facility] Date: 04/03/23 PRECAUTIONS: Fall. Standard. Activity as tolerated. SUBJECTIVE: Cooperative with getting out of bed and transferrring to the chair today. Reports much improved pain relief in L shoulder today after injection yesterday. Cheerful this morning. OBJECTIVE: Supine in bed. Knox catheter in place. B leg edema continuing to resolve.? BED MOBILITY/TRANSFERS? Supine to sit: minimal assist of 2?with HOB at 45 degrees ? Sit-stand: Contact guard assist with bed at low height?per patient request ? Stand-sit: Contact guard assist, cues needed for hand placement and slow descent? Bed-Chair: Contact guard assist with FWW, moderate cueing for safety? GAIT? Assistive Device: FWW ? Weight bearing: FWB Assist: Contact guard assist of 2 + stand by of 2 for safety? Distance: 6 small steps? Deviation:?Gait asymmetric and cautious, pace slow ? ASSESSMENT: First time after steroid injection yesterday to have moveed with the least help and least pain report. Good response from intra-articular injection so far. PLAN: Progress strengthening, transfer training, and bed mobility to reduce fall risk and maximize independence. DISCHARGE RECOMMENDATIONS: [] ? Home with no services [] [] ? Home with services [specify] [] ? Home with outpatient PT [] [X] ? SNF for continued rehabilitation.? Patient will benefit from detention facility placement for continued skilled physical therapy services in order to progress mobility level, strength, and balance in preparation for a safe discharge to home. [] ? [facility] [] [] ? SNF versus LTC based on ability to participate and progress [] TREATMENT CODE/TIME: 31728 x 23 minutes beginning at 11:25 AM.
[2023-04-03 18:30] LABS: Creatinine,Urine 41.99 mg/dL
[2023-04-03 18:54] LABS: Parathyroid Hormone,Intact 125 pg/mL (19-88)
[2023-04-03] MEDS: Tamsulosin 0.4 MG CAPCR PO (20:21)
[2023-04-03] MEDS: Gabapentin 100 MG CAP 200 MG PO (20:21)
[2023-04-03] MEDS: Insulin Glargine 300 UNITS/3 ML PEN 40 UNITS SC (20:21)
[2023-04-03] MEDS: Melatonin 3 MG TAB 9 MG PO (20:21)
[2023-04-03] MEDS: Pravastatin 40 MG TAB PO (20:21)
[2023-04-03] MEDS: Magnesium Oxide 400 MG TAB PO (20:21)
[2023-04-03 22:13] LABS: Osmolality Serum 335 mOsm/kg (275-295)
[2023-04-03 23:29] VITALS: BP 123/66; PULSE 50; RESP 20; TEMP 36.8; O2SAT 99
[2023-04-04] VITALS (18 sets, daily range): BP systolic 96–125; BP diastolic 57–78; PULSE 40–70; RESP 16–22; TEMP 34.8–36.9; O2SAT 95–100; BMI 41.1
[2023-04-04] MEDS: Normal Saline 1,000 ML 150 ML IV ×2 (06:00→12:42)
[2023-04-04 06:48] LABS: INR 2.1 (0.9-1.1); PTT Activated 43.9 sec (21.5-31.9); Prothrombin Time 20.8 sec (9.3-11.0)
[2023-04-04 06:51] LABS: Anion Gap 14.8 mmol/L (3-11); CO2 19.2 mmol/L (21.0-32.0); Calcium 10.1 mg/dL (8.5-10.1); Chloride 95 mmol/L (98-107); Estimated GFR 9.87 (mL/min/1.73m2); Glucose 279 mg/dL (74-106); PHOSPHORUS 6.2 mg/dL (2.6-4.7); Potassium 4.2 mmol/L (3.5-5.1); Sodium 129 mmol/L (136-145)
[2023-04-04 06:54] LABS: BUN 123 mg/dL (7-18); CREATININE 5.4 mg/dL (0.70-1.30)
--- NOTE | 2023-04-04 07:12 | W.UROLOGYCON ---
Date of service: 04/04/23 Time of Service: 07:12 Assessment and Plan Assessment and plan (1) Chronic indwelling Knox catheter: Status: Acute (2) Acute kidney injury superimposed on chronic kidney disease: Status: Suspected (3) Hydronephrosis, left: Status: Acute Assessment and plan: He does have chronic renal insufficiency, but his current serum creatinine is above his baseline. Likewise, he has known kidney stones but the left-sided hydronephrosis seen on ultrasound was not present on previous studies. I think a drainage procedure such as a stent or nephrostomy tube would be in order. Hopefully it would allow the kidney to drain appropriately and his renal function to return to baseline. With the patient's other medical issues, we probably could not do any elective ureteroscopy and stone treatments here at our facility, but we will check and make sure that a stent placement with sedation would be appropriate. Any further ureteroscopy and stone manipulation would likely need to be done at a tertiary care center. History of Present Illness History of Present Illness Chief Complaint: Left hydronephrosis Narrative: This is an 82-year-old gentleman who has a history of multiple medical problems. He was originally admitted during this hospitalization with shortness of breath. He has a history of bilateral kidney stones along with urinary retention. He has had ureteroscopy by the providers at [facility] previously. He was not felt to be a good surgical candidate at our facility for elective procedures. For the urinary retention, he was initially taught to perform CIC. He was unable to do so consistently, so he now has a chronic indwelling catheter that is changed monthly by home health providers. When he was admitted, he was found to have an elevated serum creatinine above his baseline. Generally, his serum creatinine runs between 4 and 5 mg/dL. During this hospitalization, the creatinine has been closer to 6 mg/dL and has not responded to hydration/diuresis. He had a renal ultrasound yesterday which showed a new onset of left hydronephrosis. I have been asked to see him to consider placement of a ureteral stent. The patient tells me he has had a stent previously. He does not currently have any flank pain. He is chronically anticoagulated for atrial fibrillation. His Coumadin has been held this morning and he has been made n.p.o. after midnight. Review of Systems Narrative: No fevers or chills No vision change or dysphasia No diabetes or thyroid Chronic shortness of breath. No hemoptysis History of atrial fibrillation. No chest pain History GERD, No hepatitis, ulcers, jaundice No seizures, strokes or peripheral neuropathy Anemia. On anticoagulants No gout PFSH All Active Problems (Updated 04/04/23 @ 07:12 by Naveen Santos MD) Hydronephrosis, left (Acute) KENNETH (acute kidney injury) (Acute) Chondrocalcinosis articularis (Acute) Arthritis of right shoulder region (Acute) Arthritis of right wrist (Acute) Right wrist pain (Acute) Hyperphosphatemia (Acute) Hypokalemia (Acute) Do not resuscitate (Acute) Advance care planning (Acute) Right shoulder pain (Acute) Pressure ulcer of right ischium (Acute) Discharge planning issues (Acute) DVT prophylaxis (Acute) Fever (Acute) Chronic indwelling Knox catheter (Acute) Symptomatic anemia (Acute) Acute renal failure (Acute) Acute UTI (Acute) Diabetes mellitus (Chronic) Atrial fibrillation (Chronic) on coumadin Chronic kidney disease (Chronic) 2020- borderline stage 4 Venous insufficiency (chronic) (peripheral) (Acute) Nail dystrophy (Acute) COVID-19 (Acute ~08/05/22) Thumb pain (Acute) Right heart failure (Acute) Urinary retention (Acute) 11/2021, ultrasound shows significant pretty and post void residual- minimal response to voiding Kidney stones (Chronic) Longstanding history of multiple stones 11/2021 ultrasound showed multiple stones in kidney, 1 stone possibly in right ureter Anemia (Chronic) Chronic mild anemia, associated with CKD Obstructive sleep apnea (Chronic) cpap Acute on chronic heart failure with preserved ejection fraction (Acute) Hives (Acute) Obesity (Acute 02/11/13) Obstructive nephropathy (Acute) Moderate pulmonary arterial systolic hypertension (Chronic) Chronic anticoagulation (Chronic) Polyp of colon (Chronic) Rosacea (Chronic) Constipation (Chronic) CHF (congestive heart failure) (Chronic) Medical History Atrial fibrillation BPH (benign prostatic hyperplasia) Diabetes mellitus type 2 in obese Essential hypertension, benign GERD (gastroesophageal reflux disease) Hyperlipidemia Nephrolithiasis Obesity hypoventilation syndrome LUCAS on CPAP Palliative care patient Surgical History Cholecystectomy (~1985) Colonoscopy - MAC (~2002) Replacement of total knee joint B/L Tonsillectomy and adenoidectomy Family History Mother Diabetes Heart disease Father Neoplasm STOMACH Brother Neoplasm Brother No problems noted. Daughter No problems noted. Social History Smoking/Tobacco Use Status: Never Second Hand Exposure: No Smoking risk assessment performed?: Yes Alcohol Intake: current Alcohol Intake frequency: holidays/special occasions only Drug use: Never Substance use type: does not use Caregiver/Support person: Yes Household members: spouse Housing: house Communication Needs: Hard of Hearing Do you need help understanding health information?: Often Pets and animals: No Sexually active: No What is your relationship status?: How often do you talk on the phone with friends or family?: decline to answer How often do you get together with friends or relatives?: decline to answer How often do you attend catholic or tenriism services?: decline to answer Do you belong to any clubs or organized social groups?: decline to answer Panel score (0-1 are the most socially isolated patients): 1 What type of physical activity do you participate in: walking Duration: < 15 minutes/day Frequency: daily Special amor needs: No Do you feel safe at home: Yes Do you feel safe in your relationship?: Yes Exam Narrative Exam Narrative: He he is an obese gentleman who appears somewhat short of breath at rest His vital signs are documented elsewhere His abdomen is soft with no CVA tenderness He is awake and alert His catheter is draining clear urine Results Last Vital Signs Temp 36.9 C 04/04/23 06:12 Pulse 52 L 04/04/23 06:12 Resp 18 04/04/23 06:12 BP 115/63 04/04/23 06:12 Pulse Ox 97 04/04/23 06:12 Labs 04/02/23 06:55 04/04/23 06:00 Labs: Laboratory Results - last 24 hr 04/03/23 04/03/23 04/03/23 06:47 06:47 11:30 PT 18.1 H INR 1.8 H APTT VBG pH VBG pCO2 VBG pO2 VBG HCO3 VBG Total CO2 VBG O2 Saturation VBG Base Excess Sodium 127 L Potassium 3.8 Chloride 92 L Carbon Dioxide 18.2 L Anion Gap 16.8 H BUN 118 H* Creatinine 5.8 H* Est GFR (CKD-EPI 2020) 9.06 Glucose 374 H 430 H Calcium 9.8 Phosphorus Urine Color Urine Clarity Urine pH Ur Specific [place] Urine Protein Urine Ketones Urine Blood Urine Nitrite Urine Bilirubin Urine Urobilinogen Ur Leukocyte Esterase Urine RBC Urine WBC Ur Epithelial Cells Urine Crystals Urine Bacteria Urine Casts Urine Mucus Ur Culture Indicated? Ur Random Creatinine Ur Random Sodium Ur Random Potassium Urine Glucose 04/03/23 04/03/23 04/03/23 13:22 15:18 15:18 PT INR APTT VBG pH 7.36 VBG pCO2 29 L VBG pO2 133 VBG HCO3 17 L VBG Total CO2 VBG O2 Saturation > 99 VBG Base Excess -9 L Sodium Potassium Chloride Carbon Dioxide Anion Gap BUN Creatinine Est GFR (CKD-EPI 2020) Glucose Calcium Phosphorus Urine Color Yellow Urine Clarity Cloudy Urine pH 5.5 Ur Specific [place] 1.015 Urine Protein 100 H Urine Ketones Negative Urine Blood Large H Urine Nitrite Negative Urine Bilirubin Negative Urine Urobilinogen 0.2 Ur Leukocyte Esterase Large H Urine RBC 10-20 H Urine WBC >50 H Ur Epithelial Cells Few Urine Crystals Negative Urine Bacteria Many Urine Casts Negative Urine Mucus Trace Ur Culture Indicated? Yes Ur Random Creatinine 41.99 Ur Random Sodium Ur Random Potassium Urine Glucose >=1000 H 04/03/23 04/04/23 04/04/23 15:18 06:00 06:00 PT 20.8 H INR 2.1 H APTT 43.9 H VBG pH VBG pCO2 VBG pO2 VBG HCO3 VBG Total CO2 VBG O2 Saturation VBG Base Excess Sodium 129 L Potassium 4.2 Chloride 95 L Carbon Dioxide 19.2 L Anion Gap 14.8 H BUN 123 H* Creatinine 5.4 H* Est GFR (CKD-EPI 2020) 9.87 Glucose 279 H Calcium 10.1 Phosphorus 6.2 H Urine Color Urine Clarity Urine pH Ur Specific [place] Urine Protein Urine Ketones Urine Blood Urine Nitrite Urine Bilirubin Urine Urobilinogen Ur Leukocyte Esterase Urine RBC Urine WBC Ur Epithelial Cells Urine Crystals Urine Bacteria Urine Casts Urine Mucus Ur Culture Indicated? Ur Random Creatinine Ur Random Sodium 28 Ur Random Potassium 38 Urine Glucose
[2023-04-04] MEDS: Insulin Aspart 300 UNITS/3 ML PEN SC ×6 (07:52→21:13)
[2023-04-04] MEDS: Potassium Chloride 10 MEQ CAPCR 30 MEQ PO ×2 (07:53→20:18)
[2023-04-04] MEDS: Sodium Bicarbonate 650 MG TAB PO ×3 (07:53→20:18)
[2023-04-04] MEDS: Finasteride 5 MG TAB PO (07:53)
[2023-04-04] MEDS: Omeprazole 20 MG CAPCR PO (07:53)
[2023-04-04] MEDS: Nystatin POWDER 60 GM JAR TP ×2 (07:54→21:11)
[2023-04-04] MEDS: Fluconazole 100 MG TAB PO (07:54)
--- NOTE | 2023-04-04 08:35 | W.ANESPRE ---
General Info Date of Service Date Performed: 04/04/23 Height: 6 ft 2 in Weight: 145.1 kg Body Mass Index (BMI): 41.1 Surgical Procedure: Operation Date: 04/04/23 09:10 Proposed Procedure Side Surgeon p Cystoscopy/Retrograde w/Stent Placement Naveen Santos MD Meds Allergies and Home Medications Allergies Allergy/AdvReac Type Severity Reaction Status Date / Time No Known Allergies Allergy Verified 03/21/23 10:15 Home Medication Medication Instructions Recorded multivitamin (Daily Multiple 1 ea PO DAILY 12/11/16 tablet) blood-glucose meter (OneTouch ##1 02/12/17 Ultra2 Meter kit) omeprazole 20 mg capsule,delayed 20 mg PO DAILY 04/15/18 release lancets (OneTouch UltraSoft #90 ea 11/06/18 Lancets) acetaminophen 325 mg tablet 650 mg PO Q4H PRN PRN #0 tabs 04/20/19 (Tylenol) docusate sodium 100 mg capsule 100 mg PO DAILY 10/27/21 (Colace) 5-hydroxytryptophan (5-HTP) 100 mg 100 mg PO DAILY 04/10/22 capsule (5-HTP) coenzyme Q10 10 mg capsule (Co 10 mg PO DAILY 04/10/22 Q-10) melatonin 5 mg capsule 5 mg PO HS 04/10/22 blood sugar diagnostic (OneTouch #90 strips 05/17/22 Ultra Test strips) potassium chloride 10 mEq 30 meq PO DAILY #270 tabs 08/30/22 tablet,extended release(part/cryst) (Klor-Con M) tamsulosin 0.4 mg capsule 0.4 mg PO HS #90 caps 08/31/22 empagliflozin 25 mg tablet 25 mg PO QAM #90 tabs 10/10/22 (Jardiance) lidocaine HCl 2 % mucosal jelly in 10 ml intra-urethral ONCE #120 mL 10/31/22 applicator (Glydo) lactulose 10 gram oral packet 10 g PO DAILY PRN constipation #30 11/05/22 ea finasteride 5 mg tablet 5 mg PO DAILY #90 tabs 12/11/22 pen needle, diabetic 33 gauge x #100 ea 12/11/22 3/16 (Comfort EZ Pen [place]) warfarin 2.5 mg tablet 2.5 mg PO DAILY #90 tabs 12/11/22 metolazone 5 mg tablet 5 mg PO .q Th, Mon PRN weight 12/31/22 gain 3lbs/day or 7 lbs/week flash glucose scanning reader #1 ea 01/07/23 (FreeStyle [place] 2 Doran) flash glucose sensor (FreeStyle #1 ea 01/07/23 Shantell 2 Sensor kit) metoprolol succinate 100 mg 100 mg PO DAILY #90 tabs 02/05/23 tablet,extended release 24 hr (Toprol XL) pravastatin 40 mg tablet 40 mg PO QPM #90 tabs 02/14/23 torsemide 20 mg tablet 40 mg PO DAILY #360 tabs 03/19/23 insulin aspart U-100 100 unit/mL sliding scale dose subcut 03/27/23 (3 mL) subcutaneous pen (Novolog DIRECTED FlexPen U-100 Insulin aspart) insulin glargine 100 unit/mL (3 39 unit subcut HS 03/27/23 mL) subcutaneous pen (Lantus Solostar U-100 Insulin) Current Visit Medications: Current Medications Generic Name Dose Route Start Last Admin Trade Name Freq PRN Reason Stop Dose Admin Acetaminophen 0 mg 03/21/23 13:48 04/02/23 07:58 Acetaminophen 325 Mg Tab PO 325 mg Q4H PRN PRN Administration Calcium Acetate 667 mg 04/02/23 17:00 04/04/23 07:55 Calcium Acetate 667 Mg Gel Cap PO Not Given QMEALS AIDEE Dextrose 0 gm 03/21/23 14:00 Glucose Oral Gel 15 Gm/37.5 Gm Tube PO DIRECTED PRN Dextrose/Water 0 gm 03/21/23 14:00 Dextrose 50%-Water 25 Gm/50 Ml Syr IVP DIRECTED PRN Dimethicone/Zinc Oxide 0 gm 03/21/23 13:48 Mick Protect Cream 142 Gm Tube TP PRN PRN Docusate Sodium 100 mg 03/22/23 08:30 04/04/23 07:55 Docusate Sodium 100 Mg Cap PO Not Given DAILY AIDEE Finasteride 5 mg 03/22/23 08:30 04/04/23 07:53 Finasteride 5 Mg Tab PO 5 mg DAILY AIDEE Administration Fluconazole 100 mg 03/29/23 08:30 04/04/23 07:54 Fluconazole 100 Mg Tab PO 100 mg DAILY AIDEE Administration Gabapentin 200 mg 04/01/23 22:00 04/03/23 20:21 Gabapentin 100 Mg Cap PO 200 mg HS AIDEE Administration Hydromorphone HCl 0.5 mg 04/01/23 15:18 Hydromorphone 2 Mg Tab PO Q8H PRN PRN Sodium Chloride 1,000 mls @ 150 mls/hr 04/03/23 13:00 04/04/23 06:00 Saline 1000ml Bag IV 150 mls/hr IN[facility]USION [facility] Administration Cefazolin Sodium/Dextrose 2 gm in 50 mls @ 100 mls/hr 04/04/23 08:15 Ancef Duplex IVPB 04/04/23 08:44 NOW ONE IV Miscellaneous Supplies 1 each 03/21/23 10:45 Iv Access IV DIRECTED [facility] Insulin Aspart 0 units 03/27/23 22:00 04/04/23 07:52 Insulin Aspart 300 Units/3 Ml Pen SC 12 unit 0800,1200,1700,2200 [facility] Administration Protocol Insulin Aspart 1 - 20 units 03/29/23 17:00 04/04/23 07:55 Insulin Aspart 300 Units/3 Ml Pen SC Not Given 0800,1200,1700 [facility] Insulin Glargine 40 units 03/21/23 20:00 04/03/23 20:21 Insulin Glargine 300 Units/3 Ml Pen SC 40 units QPM AIDEE Administration Lactulose 10 gm 03/21/23 14:44 Lactulose 20 Gm/30 Ml Cup PO DAILY PRN PRN constipation Magnesium Hydroxide 30 ml 03/21/23 13:48 03/26/23 09:15 Milk Of Magnesia 30 Ml Cup PO 30 ml DAILY PRN PRN Administration Magnesium Oxide 400 mg 03/24/23 22:00 04/03/23 20:21 Magnesium Oxide 400 Mg Tab PO 400 mg HS [facility] Administration Melatonin 9 mg 03/30/23 22:00 04/03/23 20:21 Melatonin 3 Mg Tab PO 9 mg HS [facility] Administration Metoprolol Succinate 100 mg 03/22/23 08:30 04/04/23 07:54 Metoprolol Cr 100 Mg Tabcr PO Not Given DAILY [facility] Nystatin 0 gm 03/26/23 14:00 04/04/23 07:54 Nystatin Powder 60 Gm Jar TP 1 applic TID AIDEE Administration Omeprazole 20 mg 03/22/23 07:30 04/04/23 07:53 Omeprazole 20 Mg Capcr PO 20 mg DAILY@0730 AIDEE Administration Polyethylene Glycol 17 gm 03/23/23 08:30 04/04/23 07:54 Polyethylene Glycol 3350 17 Gm Packet PO Not Given DAILY [facility] Potassium Chloride 30 meq 04/02/23 20:00 04/04/23 07:53 Potassium Chloride 10 Meq Capcr PO 30 meq BID AIDEE Administration Pravastatin Sodium 40 mg 03/21/23 20:00 04/03/23 20:21 Pravastatin 40 Mg Tab PO 40 mg QPM AIDEE Administration Sodium Bicarbonate 650 mg 04/01/23 20:00 04/04/23 07:53 Sodium Bicarbonate 650 Mg Tab PO 650 mg TID AIDEE Administration Sodium Chloride 0 ml 03/21/23 10:43 04/03/23 16:27 Normal Saline Flush 10 Ml Syr IVP 10 ml PRN PRN Administration Tamsulosin HCl 0.4 mg 03/21/23 22:00 04/03/23 20:21 Tamsulosin 0.4 Mg Capcr PO 0.4 mg HS AIDEE Administration PFSH Active Problems Active Problems: Problem Status Onset Code Hydronephrosis, left N13.30 KENNETH (acute kidney injury) N17.9 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 M19.011 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 Right wrist pain M25.531 Hyperphosphatemia E83.39 Hypokalemia E87.6 Do not resuscitate Z66 Advance care planning Z71.89 Right shoulder pain M25.511 Pressure ulcer of right ischium L89.319 Discharge planning issues Z02.9 DVT prophylaxis Z29.9 Fever R50.9 Chronic indwelling Knox catheter Z97.8 Symptomatic anemia D64.9 Acute renal failure N17.9 Acute UTI N39.0 Diabetes mellitus E11.9 Atrial fibrillation I48.91 Chronic kidney disease N18.9 Venous insufficiency (chronic) (peripheral) I87.2 Nail dystrophy L60.3 COVID-19 ~08/05/22 U07.1 Thumb pain M79.646 Right heart failure I50.810 Urinary retention R33.9 Kidney stones N20.0 Anemia D64.9 Obstructive sleep apnea G47.33 Acute on chronic heart failure with preserved ejection fraction I50.33 Hives L50.9 Obesity 02/11/13 E66.9 Obstructive nephropathy N13.8 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 Chronic anticoagulation Z79.01 Cellulitis of foot 10/17/06 L03.119 Polyp of colon K63.5 Rosacea L71.9 Constipation K59.00 Hydronephrosis N13.30 Hematuria R31.9 Hypercalcemia E83.52 CHF (congestive heart failure) I50.9 Hemothorax on left J94.2 Pneumonia J18.9 Medical History Medical History Atrial fibrillation BPH (benign prostatic hyperplasia) Diabetes mellitus type 2 in obese Essential hypertension, benign GERD (gastroesophageal reflux disease) Hyperlipidemia Nephrolithiasis Obesity hypoventilation syndrome LUCAS on CPAP Palliative care patient Surgical History Surgical History Cholecystectomy (~1985) Colonoscopy - MAC (~2002) Replacement of total knee joint B/L Tonsillectomy and adenoidectomy Tobacco Smoking/Tobacco Use Status: Never Second hand exposure: No Alcohol Alcohol Intake: current Alcohol intake frequency: holidays/special occasions only Substance Use Substance use: Never Substance use type: does not use Vital Signs and Lab Results Vital Signs Most Recent Vital Signs in EMR: Most Recent Vital Signs Temp Pulse Resp BP Pulse Ox 35.2 C L 53 L 22 123/65 98 04/04/23 07:23 04/04/23 07:23 04/04/23 07:23 04/04/23 07:23 04/04/23 07:23 Point of Care Results Point of Care Results: Finger Stick Blood Glucose 295 04/04/23 07:52 Lab Results 04/02/23 06:55 04/04/23 06:00 Blood Type / Crossmatch: Patient ABO/Rh O Negative 03/26/23 Antibody Screen NEGATIVE 03/26/23 Crossmatch See Detail 03/26/23 Complete Blood Count: White Blood Count 8.95 10^3/uL (4.4-10.8) 04/02/23 06:55 Red Blood Count 3.28 10^6/uL (4.36-5.78) L 04/02/23 06:55 Hemoglobin 8.7 g/dL (13.5-17.5) L 04/02/23 06:55 Hematocrit 27.2 % (40.0-50.0) L 04/02/23 06:55 Platelet Count 283 10^3/uL (130-400) 04/02/23 06:55 Venous Blood Lactate 1.2 mmol/L (0.6-1.4) 03/21/23 10:48 Complete Metabolic Panel: Sodium 129 mmol/L (136-145) L 04/04/23 06:00 Potassium 4.2 mmol/L (3.5-5.1) 04/04/23 06:00 Chloride 95 mmol/L (98-107) L 04/04/23 06:00 Carbon Dioxide 19.2 mmol/L (21.0-32.0) L 04/04/23 06:00 BUN 123 mg/dL (7-18) H* 04/04/23 06:00 Creatinine 5.4 mg/dL (0.70-1.30) H* 04/04/23 06:00 Est GFR (CKD-EPI 2020) 9.87 (mL/min/1.73m2) 04/04/23 06:00 Magnesium 2.2 mg/dL (1.8-2.4) 04/01/23 06:24 Calcium 10.1 mg/dL (8.5-10.1) 04/04/23 06:00 Albumin 1.6 g/dL (3.4-5.0) L 03/24/23 05:50 Glucose 279 mg/dL (74-106) H 04/04/23 06:00 C-Reactive Protein 14.95 mg/dL (0.0-0.3) H 04/01/23 06:24 Liver Function Panel: Alanine Aminotransferase (ALT/SGPT) 15 U/L (16-63) L 03/24/23 05:50 Aspartate Amino Transf (AST/SGOT) 31 U/L (15-37) 03/24/23 05:50 Coagulation Panel: INR International Normalized Ratio 2.1 (0.9-1.1) H 04/04/23 06:00 Prothrombin Time 20.8 sec (9.3-11.0) H 04/04/23 06:00 Activated Partial Thromboplast Time 43.9 sec (21.5-31.9) H 04/04/23 06:00 Cardiac Panel: Troponin I 54 ng/L (<or=60) 03/21/23 NT-Pro-B Natriuret Pep 80145 pg/mL (<300) H 03/21/23 Arterial Blood Gas: No Data to Display Venous Blood Gas: Venous Blood pH 7.36 (7.31-7.41) 04/03/23 13:22 Venous Blood Partial Pressure O2 133 mmHg 04/03/23 13:22 Venous Blood Partial Pressure CO2 29 mmHg (41-51) L 04/03/23 13:22 Venous Blood Oxygen Saturation > 99 % 04/03/23 13:22 Venous Blood HCO3 17 mmol/L (23-28) L 04/03/23 13:22 Venous Blood Base Excess -9 mmol/L (-2-3) L 04/03/23 13:22 Venous Blood Total Carbon Dioxide mmol/L (24-29) 04/03/23 13:22 Pancreas Panel: No Data to Display Thyroid Panel: No Data to Display Infectious Disease: Coronavirus (COVID-19)(PCR) Negative (Negative) 03/31/23 11:50 Coronavirus 2019 Source Nasal/Nares 03/31/23 11:50 Influenza Virus Type A (PCR) Negative (Negative) 03/21/23 10:50 Influenza Virus Type B (PCR) Negative (Negative) 03/21/23 10:50 Respiratory Syncytial Virus (PCR) Negative (Negative) 03/21/23 10:50 Blood Cultures: No Data to Display Toxicology Panel: No Data to Display Imaging and Studies Imaging and Studies Study information below may be from another EMR and interpreted by another provider. Please see original notes in EMR for more complete details. EKG Summary: PATIENT NAME: Sav Winkler #: [id number] ORDERING PROVIDER: Ophelia Gleason #: [id number] PRIMARY CARE PROVIDER: GORDO DOMINGUEZ MD DATE/TIME OF SERVICE: 03/21/23 1016 : 1940PERFORMING LOCATION: [place] APPROVED REPORT Exam: Resting ECG Reason for Exam: sob Patient Location: E HR:69 bpm ECG Measurements Heart Rate 69 AXIS [place] [id number] P [id number] QRSd 98 QRS 52 QT 416 T21 QTc 445 Conclusion Atrial fibrillation...? atrial activity Low voltage, extremity and precordial leads...extremity<0.5mV, precordial<1.0mV. Afib. No acute ischemic findings. I have reviewed and interpreted ECG and agree with software generated interpretation. Echocardiogram Summary: Patient Name: Sav Winkler #: [id number]: ER Ordering Provider: Anali Miller M.D. : [facility] ER Primary Care Provider: Gordo Dominguez M.D.Date of Exam: 01/01/23Sex: M Admission Date: 12/31/22 : 1940 Age: 82 APPROVED REPORT EXAM: Comprehensive 2D, Doppler, and color-flow Echocardiogram Patient Location: ER Room/Bed: 6 Business Objects Developer: Barbara Hughes RDCS (AE) Indications: CHF Other Information Study Quality: Poor. Technically limited study due to body habitus, inability to position patient exam done supine bedside in the ER. Conclusion Technically difficult and suboptimal study Left ventricle appears grossly normal in size and systolic function, EF 55%. Unable to assess segmental wall motion Right ventricle is not well visualized The right atrium is mildly dilated. The left atrium is moderately dilated The aortic valve is sclerotic and probably trileaflet with trace regurgitation Mitral annular calcification, trace mitral regurgitation Right ventricular systolic pressure could not be estimated Wall motion Left Ventricle Technically limited parasternal imaging. The left ventricular systolic function is normal. The left ventricular ejection fraction is within the normal range. Regional wall motion abnormalities cannot be excluded. There is no ventricular septal defect visualized. LVEF is 55%. Right Ventricle Right ventricle is not well visualized. Right ventricular systolic function could not be assessed. Atria Left atrium is moderately dilated. Right atrium is mildly dilated. The interatrial septum is intact with no evidence for an atrial septal defect. Aortic Valve The Aortic valve is sclerotic. Aortic valve is probably trileaflet. There is no aortic valvular stenosis. Trace aortic regurgitation. Mitral Valve There is mitral annular calcification. No evidence of mitral valve stenosis. Trace mitral regurgitation. Tricuspid Valve The tricuspid valve is normal in structure. There is no tricuspid valve stenosis. Trace tricuspid regurgitation. Unable to assess PA pressure. Pulmonic Valve Pulmonic valve is not well visualized. There is no pulmonic valvular stenosis. There is no pulmonic valvular regurgitation. Great Vessels The aortic root is normal in size. Ascending aorta is not well visualized. Aortic arch is not well visualized. IVC is normal in size and collapses >50% with inspiration. Anesthesia Assessment and Plan Anesthesia History Personal History: No History of Anesthesia Complications Family History: No Family History of Anesthesia Complications Exercise Tolerance Exercise Tolerance: Metabolic Equivalents<4 Pertinent Negatives Pertinent Negatives: Other (Afib, LUCAS) Cardiac & Pulmonary Exam Cardiac Exam: Normal S1/S2 Heart Sounds Pulmonary Exam: Clear Bilateral Breath Sounds Implantable Cardiac Device Does patient have a Pacemaker or an ICD?: No Airway Exam Known Difficult Airway: No Mallampati Class: 4 Mouth Opening: Normal (> 3cm) Thyromental Distance: Greater than 3 cm Neck Range of Motion: Limited ROM Neck Circumference: Thick Teeth Condition: Normal Dentition (teeth on bottom only) and Removable Dentures/Plates Upper ASA Classification ASA Score: ASA 3 Emergency Case?: No NPO Status NPO Status: NPO Clears >2 hours, Solids >8 hours Anesthesia Plan Resuscitation Status: DNR Modified During Perioperative Period Resuscitation Modifications: Pt. Requests for Clinical Judgement to be Used Anesthesia Technique: MAC Anesthesia Airway Planned: Natural Airway Monitors Used: Standard Monitors Preoperative Comments:: Cysto/Stent only with MAC, refer to tertiary care for any additional procedures
--- NOTE | 2023-04-04 08:45 | DI.RAD_ITS ---
Exam(s) XR RETROGRADE IN OR EXAM: XR RETROGRADE IN OR CLINICAL HISTORY: Hydronephrosis, left TECHNIQUE: 2D and realtime digital imaging was performed. CONTRAST MATERIAL: Refer to procedure report. COMPARISON: No exams were available for comparison FINDINGS: Fluoroscopy was provided for Dr. Santos during the performance of a retrograde evaluation of the serge l collecting system. Please refer to the procedure report for complete details. Ka,r=0.64 mGy IMPRESSION: RADIATION DOSE DELIVERED:
[2023-04-04] MEDS: Lidocaine 2% Jelly 6 ML SYR (09:37)
[2023-04-04] MEDS: ceFAZolin 2 GM/50 ML BAG IVPB (10:00)
--- NOTE | 2023-04-04 10:20 | ROE_ITS ---
Date of service: 04/04/23 Time of Service: 10:20 Operative Note Operative Note DATE OF PROCEDURE: 04/04/23 PRE-OP DIAGNOSIS: Left hydronephrosis POST-OP DIAGNOSIS: same Bladder stones PROCEDURE: Cystoscopy SURGEON: Naveen Santos ANESTHESIA TYPE: Local By Surgeon and MAC Refer to Anesthesia Record ESTIMATED BLOOD LOSS: 5 PATHOLOGY: none sent COMPLICATIONS: None Patient was transported to: floor Patient's condition: stable Implants: None Indications: This is an 82-year-old gentleman who has a history of bilateral kidney stones. He has had ureteroscopic procedures at [facility] in the past. He has baseline renal insufficiency, but he was admitted to the hospital with wo rsening shortness of breath. His renal function has worsened slightly and does not improve with medical management. A renal ultrasound showed a new finding of left hydronephrosis. He is agreeable to placement of a left ureteral stent. He understands that any additional ureteroscopic procedures would need to be done at a tertiary care center. Findings: multiple large stones withing bladder lumen unable to canulate or advance guidewire up left ureter Procedure Description: The patient was brought to the op room on 04/04/2023. He was given a dose of preoperative IV antibiotics. His indwelling catheter was removed. He was then placed in the dorsal lithotomy position. He was given IV sedation. His genitalia was prepped and draped. 2% Xylocaine jelly was instilled into the urethra to act as a local anesthetic. A 22 [place]ian rigid cystoscope was passed through the urethra into the bladder. The urethra and bladder were inspected with the 30 degree lens. The pendulous, bulbar and membranous urethra's appeared normal with no strictures. The prostatic urethra had some lateral lobe enlargement but no significant median lobe. The bladder neck was entered and the bladder mucosa was inspected. 3 large bladder stones were identified in the lumen of the bladder. Some erythematous mucosa was seen posteriorly as would be expected with his chronic indwelling catheter. The trigone was identified and the left ureteral orifice was visualized. I was not able to cannulate the orifice with a access catheter. Likewise, I was not able to pass a guidewire through the orifice and up the ureter. I again tried cannulating the orifice with a 70 degree lens. Finally, I removed the rigid cystoscope and attempted with the flexible cystoscope. I was still unable to gain access to the left ureteral orifice. No retrograde pyelogram was obtained and no stent was placed. Having been unable to place a stent in a retrograde manner, once the patient's anticoagulation has been reversed, we can consider placement of a nephrostomy tube and antegrade stent. The patient tolerated the procedure well. His bladder was emptied. All scopes were removed. A 16 Gu[place]ian Knox catheter was passed back through the urethra into the bladder. The catheter balloon was inflated with 10 cc of sterile water and the catheter was hooked to gravity drainage.
--- NOTE | 2023-04-04 10:52 | W.ANESPOSTOP ---
Postoperative Evaluation Date, Time and Location Date Performed: 04/04/23 Time Performed: 10:40 Patient Location: Med/Surg Vital Signs Most Recent Imported Vital Signs: Most Recent Vital Signs Temp Pulse Resp BP Pulse Ox 35.8 C L 47 L 19 101/62 100 04/04/23 10:40 04/04/23 10:40 04/04/23 10:40 04/04/23 10:40 04/04/23 10:40 Pain Score Most Recent Pain Score: Most Recent Pain Score Pain Level [Right Shoulder] 8 04/02/23 07:58 Pain Level [Bilateral Lower 0 03/23/23 15:00 Leg] Pain Level [Generalized] 0 03/30/23 14:57 Pain Level 0 04/04/23 10:40 Assessment Mental Status: Awake (Alert & Oriented to Patient Baseline) Airway and Respiratory Function: Patent airway with normal (patient baseline) respiratory exam Cardiovascular Function: Hemodynamically Stable Hydration Status: Adequately Hydrated Nausea & Vomiting: No Nausea or Vomiting Pain: Pt. Denies Any Pain Peripheral Nerve Block: Patient did not receive a nerve block
--- NOTE | 2023-04-04 13:13 | PGE_ITS ---
Date of Service Date of service: 04/04/23 Time of Service: 13:13 Assessment and Plan Assessment and plan (1) KENNETH (acute kidney injury): Status: Acute Assessment and plan: In spite of ongoing iv fluids, he has not shown signs of worsening right heart failure. However his azotemia also has not responded at his BUN and creatinine remain elevated at 123 and 5.4, however we now know that he has obstruction of his left ureter causing hydronephrosis and failed attempt at stent placement of his left ureter. He will need urostomy tube placement which I have set up w/ [facility] IR for tomorrow morning Professional time spent interviewing and examining patient, discussion of goals of care with hospital team (care management, nursing and consulting professionals) was 45 minutes. (2) Chronic kidney disease: Status: Chronic Assessment and plan: acute on chronic renal failure. Combination of over diuresis for his right heart failure along w/ new obstruction of his left ureter causing him hydronephrosis. Patient has baseline CKD w/ BUN 60's and creatinine around 4. However he has worsened over the past week and after failed attempt at cystoscopy and stent placement he will go to [facility] for down and back procedure for IR placed nephrostomy tube. (3) Hyperphosphatemia: Status: Acute Assessment and plan: begin PhosLo w/ meals; monitor phosphorus levels which are now declining but remain elevated at 6.2 (4) Hypokalemia: Status: Acute Assessment and plan: potassium level now normal at 4.2. I will hold further supplementation until after his nephrostomy tube and we see how his renal recovery goes. (5) Obstructive nephropathy: Status: Acute Assessment and plan: has chronic indwelling griffin catheter which was changed this admission for UTI but now has higher level obstruction from nephrolithiasis. See above for details (6) Right heart failure: Status: Acute Assessment and plan: monitor respiratory status while the diuretics are on hold. Continue CPAP. continue to hold diuretics for now. 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 Has LUCAS/OHS/pulmonary hypertension. Hold torsemide/metolazone. (8) Atrial fibrillation: Status: Chronic Assessment and plan: Rate controlled. Continue metoprolol. Continue coumadin. INR subtherapeutic again today (1.8). cont. home dose of 2.5 mg nightly every Saturday, Saturday, Saturday and Saturday His anticoagulation was stopped yesterday and will not be resumed until after his nephrostomy tube placement. 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 Harris (11) Right shoulder pain: Status: Acute Assessment and plan: s/p CS injection by Dr Harris; doing better (12) Acute UTI: Status: Acute Assessment and plan: Due to klebsiella + mixed sapphire and now also yeast, present on admission, associated with an indwelling catheter. Finished w/ ceftriaxone. Continue fluconazole. Griffin exchanged 07/30/23. Patient had Ancef perioperatively for his cystoscopy (13) Hyperlipidemia: Assessment and plan: Continue pravastatin. (14) Diabetes mellitus type 2 in obese: Assessment and plan: Continue basal bolus insulin was adjusted to moderate SSI w/ meals. Jardiance d/c'ed due to worsening risk of UTIs, including fungal UTis. (15) LUCAS on CPAP: Assessment and plan: Continue CPAP (16) Pressure ulcer of right ischium: Status: Acute Assessment and plan: deep tissue wound, present on admission. General surgery recommends wound care; no surgical intervention needed. (17) DVT prophylaxis: Status: Acute Assessment and plan: use SCD while off anticoagulation (18) Discharge planning issues: Status: Acute Assessment and plan: DNR/DNI Continues to require hospitalization. Patient has been accepted to [facility] however transfer has been delayed due to his renal fxn not recovering and his complications w/ low K and shoulder pain and now right wrist pain. Subjective Subjective Interval history since last seen: No new complaints from Sav. He went for cystoscopy this morning but Dr. Santos could not pass the guide wire around the obstruction. Sav will need left nephrostomy tube placement to alleviate his hydronephrosis. I contacted [facility] this morning and spoke w/ the PA in the IR department and gave him the hx. We sent the patient's renal US and todays pyelogram to [facility] along w/ my progress notes, labs and Dr. Santos's consultation. Patient is mildly bradycardic in the 40's. he is on Toprol XL 100 mg daily and with his renal insufficiency he probably is not clearing this. I have held his Toprol and we have put him on telemetry monitoring. We may need to give a dose of glucagon. Exam Narrative Exam Narrative: Sav is lying in bed. He has bear hugger warmer on as he is hypothermic coming back from the OR He is alert and oriented Lungs: remain clear Heart: bradycardic but irregularly irregular Abdomen: soft, nontender Legs: no edema Objective Last Vital Signs Temp 35.6 C L 04/04/23 12:57 Pulse 55 L 04/04/23 12:25 Resp 19 04/04/23 12:25 BP 106/66 04/04/23 12:25 Pulse Ox 99 04/04/23 12:25 Laboratory Results - last 24 hr 04/03/23 04/03/23 04/03/23 06:35 13:22 13:22 PT INR APTT VBG pH 7.36 VBG pCO2 29 L VBG pO2 133 VBG HCO3 17 L VBG Total CO2 VBG O2 Saturation > 99 VBG Base Excess -9 L Sodium Potassium Chloride Carbon Dioxide Anion Gap BUN Creatinine Est GFR (CKD-EPI 2020) Glucose Serum Osmolality 335 H Calcium Phosphorus PTH Intact 125 H Urine Color Urine Clarity Urine pH Ur Specific [place] Urine Protein Urine Ketones Urine Blood Urine Nitrite Urine Bilirubin Urine Urobilinogen Ur Leukocyte Esterase Urine RBC Urine WBC Ur Epithelial Cells Urine Crystals Urine Bacteria Urine Casts Urine Mucus Ur Culture Indicated? Ur Random Creatinine Ur Random Sodium Ur Random Potassium Urine Glucose 04/03/23 04/03/23 04/03/23 15:18 15:18 15:18 PT INR APTT VBG pH VBG pCO2 VBG pO2 VBG HCO3 VBG Total CO2 VBG O2 Saturation VBG Base Excess Sodium Potassium Chloride Carbon Dioxide Anion Gap BUN Creatinine Est GFR (CKD-EPI 2020) Glucose Serum Osmolality Calcium Phosphorus PTH Intact Urine Color Yellow Urine Clarity Cloudy Urine pH 5.5 Ur Specific [place] 1.015 Urine Protein 100 H Urine Ketones Negative Urine Blood Large H Urine Nitrite Negative Urine Bilirubin Negative Urine Urobilinogen 0.2 Ur Leukocyte Esterase Large H Urine RBC 10-20 H Urine WBC >50 H Ur Epithelial Cells Few Urine Crystals Negative Urine Bacteria Many Urine Casts Negative Urine Mucus Trace Ur Culture Indicated? Yes Ur Random Creatinine 41.99 Ur Random Sodium 28 Ur Random Potassium 38 Urine Glucose >=1000 H 04/04/23 04/04/23 06:00 06:00 PT 20.8 H INR 2.1 H APTT 43.9 H VBG pH VBG pCO2 VBG pO2 VBG HCO3 VBG Total CO2 VBG O2 Saturation VBG Base Excess Sodium 129 L Potassium 4.2 Chloride 95 L Carbon Dioxide 19.2 L Anion Gap 14.8 H BUN 123 H* Creatinine 5.4 H* Est GFR (CKD-EPI 2020) 9.87 Glucose 279 H Serum Osmolality Calcium 10.1 Phosphorus 6.2 H PTH Intact Urine Color Urine Clarity Urine pH Ur Specific [place] Urine Protein Urine Ketones Urine Blood Urine Nitrite Urine Bilirubin Urine Urobilinogen Ur Leukocyte Esterase Urine RBC Urine WBC Ur Epithelial Cells Urine Crystals Urine Bacteria Urine Casts Urine Mucus Ur Culture Indicated? Ur Random Creatinine Ur Random Sodium Ur Random Potassium Urine Glucose Time Spent with Patient Time Spent with Patient: 25-34 minutes Time was spent: preparing to see the patient(eg.review tests), ordering medications,tests, procedures, referring, communicating with other health residential care facility manager, indepentently interpreting results, counseling the patient and care coordination
--- NOTE | 2023-04-04 13:38 | W.NUTRFU ---
Date of service: 04/04/23 Time of Service: 13:39 Nutrition Note NOTE: Met with Mrs. Winkler and provided diet education on Renal Diet Plan. Provided written material and contact information. Encouraged follow up as needed in outpatient setting once discharged. Time Spent in Nutritional Counseling and Treatment: 20
--- NOTE | 2023-04-04 17:01 | CMPROGNOTE_ITS ---
Date of service: 04/04/23 Time of Service: 17:01 Care Management Progress Note Progress Note Text Progress Note Text: S/O: ? Sav needs a nephrostomy tube, per Dr. Santos and is going down and back to [facility] tomorrow. SNF for STR, is still recommended when pt is medically ready. New referral and PA will be needed when patient is nearing medical readiness for discharge, as the prior auth [facility] obtained was good through today and they are unable to hold the bed.? CM will follow. A: 82 year old male admitted to [facility] on 03/21/23 for Anemia, acute respiratory failure, UTI P:? Patient is not medically ready for discharge. PT recommendation is SNF for STR, when medically ready. [facility] is unable to hold the bed and will need a New Referral and PA. ? CM will continue to follow and support discharge needs.
--- NOTE | 2023-04-04 17:20 | PTTR_ITS ---
Date of service: 04/04/23 Time of Service: 16:04 PT Notes Visit Reasons: Anemia, Acute Respiratory Failure, UTI Inpatient Physical Therapy Treatment Note [facility] Date: 04/04/23 PRECAUTIONS: Fall.? Standard. Activity as tolerated. SUBJECTIVE: Nurse Mary recommended holding off on Pt treatment this morning as patient just came back from a cystoscopy procedure and is needing rest. Continues to be cooperative and willing to doing more this afternoon. OBJECTIVE: Supine in bed.? Knox catheter in place.? B leg edema continuing to resolve.? IV through R UE.? BED MOBILITY/TRANSFERS? Supine to sit:? moderate of 2?with HOB at 45 degrees ? Sit-stand: Contact guard assist with FWW ? Stand-sit: Contact guard assist?wit FWW? Bed-Chair: Contact guard assist with FWW ? GAIT? Assistive Device: FWW ? Weight bearing: FWB Assist: Contact guard assist of 2 + stand by 1 for safety? Distance: 8 steps? Deviation:?Gait asymmetric and cautious,? pace slow ? ASSESSMENT: Continued good response from intra-articular injection. Only required contact guard assist of 2 using FWW to cover short distance from bedside to chair. More agreeable, developing better relationships with staff. Almost nearing baseline mobility of stand by assist of up to 25 feet using FWW. PLAN: Progress strengthening, transfer training, and bed mobility to reduce fall risk and maximize independence. DISCHARGE RECOMMENDATIONS: [] ? Home with no services [] [] ? Home with services [specify] [] ? Home with outpatient PT [] [] ? SNF for continued rehabilitation [] ? Penitentiary Care [] [] ? SNF versus LTC based on ability to participate and progress [] [X] SNF vs. PT based on progress towards goals TREATMENT CODE/TIME: 26363 x 25 minutes beginning at 16:04 PM.
[2023-04-04 18:45] LABS: Osmolality, Urine 410 mOsm/kg (150-1150)
[2023-04-04] MEDS: Normal Saline 1,000 ML 75 ML IV (19:05)
[2023-04-04] MEDS: Pravastatin 40 MG TAB PO (20:18)
[2023-04-04] MEDS: Melatonin 3 MG TAB 9 MG PO (21:11)
[2023-04-04] MEDS: Gabapentin 100 MG CAP 200 MG PO (21:11)
[2023-04-04] MEDS: Magnesium Oxide 400 MG TAB PO (21:11)
[2023-04-04] MEDS: Tamsulosin 0.4 MG CAPCR PO (21:11)
[2023-04-04] MEDS: Insulin Glargine 300 UNITS/3 ML PEN 40 UNITS SC (21:12)
[2023-04-05] VITALS (10 sets, daily range): BP systolic 107–120; BP diastolic 57–81; PULSE 53–63; RESP 16–20; TEMP 35.3–36.6; O2SAT 95–98
[2023-04-05 06:13] LABS: INR 2.3 (0.9-1.1); PTT Activated 42.3 sec (21.5-31.9); Prothrombin Time 23.4 sec (9.3-11.0)
[2023-04-05 06:17] LABS: Anion Gap 12.8 mmol/L (3-11); CO2 20.2 mmol/L (21.0-32.0); Chloride 102 mmol/L (98-107); Estimated GFR 10.33 (mL/min/1.73m2); Glucose 242 mg/dL (74-106); PHOSPHORUS 6.3 mg/dL (2.6-4.7); Potassium 4.6 mmol/L (3.5-5.1); Sodium 135 mmol/L (136-145)
[2023-04-05 06:21] LABS: BUN 136 mg/dL (7-18); CREATININE 5.2 mg/dL (0.70-1.30)
--- NOTE | 2023-04-05 06:30 | NUR.NOTE ---
Nurse to nurse called to [facility] IR department. Nursing Note:
--- NOTE | 2023-04-05 07:25 | NUR.NOTE ---
Nursing Note: Patient transferred to [facility] and taken to [facility] via EMS.
--- NOTE | 2023-04-05 10:03 | CMPROGNOTE_ITS ---
Date of service: 04/05/23 Time of Service: 10:03 Care Management Progress Note Progress Note Text Progress Note Text: S/O: ? Sav went down and back to [facility] to get a nephrostomy tube and is unavailable to meet with CM. Per PT, SNF for STR is still recommended when pt is medically ready.? New referral and PA will be sent when patient is nearing medical readiness for discharge, as the prior auth [facility] obtained was good through today and they are unable to hold the bed.? CM will follow. A: 82 year old male admitted to [facility] on 03/21/23 for Anemia, acute respiratory failure, UTI P:? Patient is not medically ready for discharge. Down and back to [facility] is scheduled 04/05/23. PT recommendation is SNF for STR, when medically ready. [facility] is unable to hold the bed and will need a New Referral and PA. ? CM will continue to follow and support discharge needs.
--- NOTE | 2023-04-05 16:00 | NUR.NOTE ---
Nursing Note: Patient returned from [facility]. Left neph tube in place with dressing cdi. Purulent, new drainage present. Knox catheter in place with white purulent drainage. No reports of pain at this time.
[2023-04-05] MEDS: Omeprazole 20 MG CAPCR PO (16:16)
[2023-04-05] MEDS: Fluconazole 100 MG TAB PO (16:17)
[2023-04-05] MEDS: Docusate Sodium 100 MG CAP PO (16:17)
[2023-04-05] MEDS: Finasteride 5 MG TAB PO (16:17)
[2023-04-05] MEDS: Polyethylene Glycol 3350 17 GM PACKET PO (16:17)
[2023-04-05] MEDS: Normal Saline 1,000 ML 75 ML IV (16:33)
--- NOTE | 2023-04-05 17:09 | INPN_ITS ---
Date of service: 04/05/23 Time of Service: 15:45 PT Notes Visit Reasons: Anemia, Acute Respiratory Failure, UTI Inpatient Physical Therapy Progress Note Date: 04/05/2023 Dates of Service: 03/29/23 - 04/05/2023 Referring Doctor:Natalya Thacker MD PT Orders: PT CONSULT: Eval/Treat Precautions: Fall. Standard.? Activity as tolerated.? Fearful of falling. Patient Profile/Admitting Diagnosis:? S/P nephrostomy tube placement on POD 0 from a down and back surgery at [facility]. Patient is a 82-year-old male who presented to the ED on 03/21/2023 due to 5 days worth of shortness of breath and is admitted admitted for the management of atrial fibrillation, chronic kidney disease, right-sided heart failure, anemia, moderate pulmonary arterial systolic hypertension, obstructive neuropathy, hyperlipidemia, type II DM, and LUCAS. He's participated in skilled PT intervention for 7 days, with anticipated discharge to SNF once stable. PMHX: All Active Problems? Fever (Acute) Chronic indwelling Knox catheter (Acute) Symptomatic anemia (Acute) Acute renal failure (Acute) Acute UTI (Acute) Diabetes mellitus (Chronic) Atrial fibrillation (Chronic) on coumadin Chronic kidney disease (Chronic) 2020- borderline stage 4 Venous insufficiency (chronic) (peripheral) (Acute) Nail dystrophy (Acute) COVID-19 (Acute ~08/05/22) Thumb pain (Acute) Right heart failure (Acute) Urinary retention (Acute) 11/2021, ultrasound shows significant pretty and post void residual- minimal response to voiding Kidney stones (Chronic) Longstanding history of multiple stones 11/2021 ultrasound showed multiple stones in kidney, 1 stone possibly in right ureter Anemia (Chronic) Chronic mild anemia, associated with CKD Obstructive sleep apnea (Chronic) cpapAcute on chronic heart failure with preserved ejection fraction (Acute) Hives (Acute) Obesity (Acute 02/11/13) Obstructive nephropathy (Acute) Moderate pulmonary arterial systolic hypertension (Chronic) Chronic anticoagulation (Chronic) Polyp of colon (Chronic) Rosacea (Chronic) Constipation (Chronic) CHF (congestive heart failure) (Chronic) Medical History? Atrial fibrillation BPH (benign prostatic hyperplasia) Diabetes mellitus type 2 in obese Essential hypertension, benign GERD (gastroesophageal reflux disease) Hyperlipidemia Nephrolithiasis Obesity hypoventilation syndrome LUCAS on CPAP Palliative care patient Surgical History? Cholecystectomy (~1985) Colonoscopy - MAC (~2002) Replacement of total knee joint B/L Tonsillectomy and adenoidectomy Social History/Home Situation: Patient lives with Lashawn in a 1 floor house in [facility] with 2 steps to enter, no rails.?? 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 They have one supportive daughter who lives locally.? states that she uses a device that she holds up to him so that he can pull on it to sit up in bed.? She adds that he has walked for over a week now due to weakness,? pain in B knees and fearfulness of falling.? Equipment Owned/DME: Bed that has changeable angles at the head and the knee but is not able to move up nor down Motorized wheelchair FWW SPC Subjective:? Patient exhausted from a down and back surgery at [facility] today. Agreeable to being assisted back to bed from stretcher with Nurse Vanda and [place] EMT personnel. present in room during the visit. Hungry as he has not eaten anything since supper last night. Objective:? General Observation: Supine in stretcher Mental Status: Alert and oriented x 4 Pain: None reported throughout short session ROM: Right Upper Extremity: ? Shoulder Flexion 90 degrees. Shoulder abduction about 45 degrees. Elbow flexion WFL. Wrist flexion WFL. Functional opening and closing of hand WFL. Left Upper Extremity:? Shoulder Flexion 90 degrees. Shoulder abduction about 45 degrees. Elbow flexion WFL. Wrist flexion WFL. Functional opening and closing of hand WFL. Right Lower Extremity: Hip flexion up to 90 degrees. Hip abduction WFL. Knee flexion 0-100. Ankle dorsiflexion WFL. Ankle plantarflexion WFL. Left Lower Extremity: Hip flexion WFL. Hip abduction WFL. Knee flexion WFL. Ankle dorsiflexion WFL. Ankle plantarflexion WFL. Strength: Right Upper Extremity: Shoulder flexors 3-/5. Shoulder abductors 3-/5. Elbow flexors 4+/5. Elbow extensors 4+/5. Client Architect strong. Left Upper Extremity: Shoulder flexors 3-/5. Shoulder abductors 3-/5. Elbow flexors 4+/5. Elbow extensors 4+/5. Client Architect strong. Right Lower Extremity: Hip flexors 3-/5. Hip abductors 4/5. Knee flexors 3-/5. Knee extensors 4-/5. Ankle dorsiflexors 4-/5. Ankle plantarflexors 4-/5. Left Lower Extremity:Hip flexors 3-/5. Hip abductors 4/5. Knee flexors3-/5. Knee extensors 4-/5. Ankle dorsiflexors 4-/5. Ankle plantarflexors 4-/5. BED MOBILITY/TRANSFERS Bed to bed transfer using slider placed underneath patient. In the past three days, patient has been requiring just conatct guard assist of 2 for all transfers with no report of pain. ? GAIT? Up to 12 steps from bedside to commode placed at a distance from bed with contact guard assist of 2 using FWW. Moderate cues needed for backing up, reaching behind, managing walker and going slow with stand to sit.? Balance:? Static Sitting: Good Dynamic Sitting: Good Static Standing: Fair Dynamic Standing: Fair Informed Consent/Education:? Patient instructed in purpose of PT consult and plan of care.? Patient was edu cated about about treatment frequency in order to maximize functional mobility performance while reducing onset of fatigue. Assessment:? S/P neprhostomy tune placement on POD 0 at [facility] today. 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 He's been participating in skilled PT intervention, with slow improvements in mobility and independence. He requires continued rehabilitation during his acute care stay, and is appropriate for transition to SNF for continued rehabilitation once medically stable.? Goals: Goals X1 week 1. Supine-Sit contact guard assist (progressing toward) 2. Sit-Supine contact guard assist(progressing toward) 3. Sit-Stand contact guard assist(progressing toward) 4. Stand-Sit contact guard assist with FWW (met) 5. Bed-Chair contact guard assist with FWW (progressing toward) 6. Chair-Bed contact guard assist with FWW(progressing toward) 7. Contact guard assist gait on level surface with use of FWW for at least 30 feet without report of pain nor dyspnea(progressing toward) 8. Contact guard assist stair negotiation while holding onto bilateral rails for at least 3 steps without report of pain nor dyspnea(progressing toward) PLAN OF CARE/TREATMENT PLAN: Continue 1x/day, 7 days/week x 1 week. Plan of care has been reviewed with the [facility]NER providing the service under Physical Therapy direction. Pre-medicate for pain. Improve standing balance and tolerance. Progress ambulation distance as tolerated with wheelchair follow as needed. Continue with seated level strengthening exercises to B UE/LE. Facilitate balance skills to reduce fall risk. Deep breathing exercises in between activities to reduce fatigue. DISCHARGE RECOMMENDATIONS: [] ? Home with no services [] [] ? Home with services [specify] [] ? Home with outpatient PT [] [X] ? SNF for continued rehabilitation.? Patient will benefit from care home facility placement for continued skilled physical therapy services in order to progress mobility level, strength, and balance in preparation for a safe discharge to home. [] ? Public Safety Teacher Care [] [] ? SNF versus LTC based on ability to participate and progress [] TREATMENT CODE/TIME: 28526 x 15 minutes beginning at 16:40 PM. Thank you for the opportunity to participate in the care of this patient. Madhavi Victoria PT, DPT, CLT [facility] [place], [place]
--- NOTE | 2023-04-05 17:33 | PGE_ITS ---
Date of Service Date of service: 04/05/23 Time of Service: 17:33 Assessment and Plan Assessment and plan (1) KENNETH (acute kidney injury): Status: Acute Assessment and plan: In spite of ongoing iv fluids, he has not shown signs of worsening right heart failure. However his azotemia also has not responded at his BUN and creatinine remain elevated. Now s/p left percutaneous nephrostomy tube placement at [facility] for left hydronephrosis. Cont to monitor renal function. Of note; when nephrotomy tube placed, purulent material was returned and this was sent for culture. Will need to f/u with [facility] for the culture results. (2) Chronic kidney disease: Status: Chronic Assessment and plan: Acute on chronic renal failure. Combination of over diuresis for his right heart failure along w/ new obstruction of his left ureter causing him hydronephrosis. Patient has baseline CKD w/ BUN 60's and creatinine around 4. However he has worsened and after failed attempt at cystoscopy and stent placement he was sent to [facility] for nephrostomy tube placement as per above. (3) Hyperphosphatemia: Status: Acute Assessment and plan: begin PhosLo w/ meals; monitor phosphorus levels which are now declining but remain elevated at 6.2 (4) Hypokalemia: Status: Acute Assessment and plan: potassium level now normal Monitor. (5) Obstructive nephropathy: Status: Acute Assessment and plan: has chronic indwelling griffin catheter which was changed this admission for UTI but now has higher level obstruction from nephrolithiasis. See above for details (6) Right heart failure: Status: Acute Assessment and plan: monitor respiratory status while the diuretics are on hold. Currently stable. Continue CPAP. continue to hold diuretics for now. 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 Has LUCAS/OHS/pulmonary hypertension. Hold torsemide/metolazone. (8) Atrial fibrillation: Status: Chronic Assessment and plan: Rate controlled. Continue metoprolol. INR reversed at [facility] prior to nephrostomy tube placement; KCentra and Vit K. Restart coumadin at 5mg daily. Bridging with SC heparin. 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 Harris (11) Right shoulder pain: Status: Acute Assessment and plan: s/p CS injection by Dr Harris; doing better (12) Acute UTI: Status: Acute Assessment and plan: Due to klebsiella + mixed sapphire and now also yeast, present on admission, associated with an indwelling catheter. Finished w/ ceftriaxone. Continue fluconazole. Griffin exchanged 07/30/23. Patient had Ancef perioperatively for his cystoscopy (13) Hyperlipidemia: Assessment and plan: Continue pravastatin. (14) Diabetes mellitus type 2 in obese: Assessment and plan: Continue basal bolus insulin was adjusted to moderate SSI w/ meals. Jardiance d/c'ed due to worsening risk of UTIs, including fungal UTis. (15) LUCAS on CPAP: Assessment and plan: Continue CPAP (16) Pressure ulcer of right ischium: Status: Acute Assessment and plan: deep tissue wound, present on admission. General surgery recommends wound care; no surgical intervention needed. (17) DVT prophylaxis: Status: Acute Assessment and plan: use SCD while off anticoagulation (18) Discharge planning issues: Status: Acute Assessment and plan: DNR/DNI Continues to require hospitalization. Patient has been accepted to [facility] however transfer has been delayed due to his renal fxn not recovering and his complications w/ low K and shoulder pain and now right wrist pain. Subjective Subjective Patient reports: no new complaints and afebrile; denies nausea, vomiting or shortness of breath Interval history since last seen: Pt is back from [facility] where he was transported earlier in the day for placement of a left percutaneous nephrostomy tube. He states he tolerated the procedure well and has no pain complaints at the insertion site. Exam Narrative Exam Narrative: Sav is lying in bed. He has bear hugger warmer on. Eating dinner; assisting. He is alert and oriented Lungs: remain clear Heart: bradycardic but irregularly irregular Abdomen: soft, nontender Legs: no edema Objective Last Vital Signs Temp 35.3 C L 04/05/23 15:59 Pulse 58 L 04/05/23 15:59 Resp 16 04/05/23 15:59 BP 107/66 04/05/23 15:59 Pulse Ox 98 04/05/23 15:59 Laboratory Results - last 24 hr 04/03/23 04/05/2304/05/23 15:18 05:48 05:48 PT 23.4 H INR 2.3 H APTT 42.3 H Sodium Potassium Chloride Carbon Dioxide Anion Gap BUN Creatinine Est GFR (CKD-EPI 2020) Glucose Calcium Phosphorus 6.3 H Urine Osmolality 410 04/05/23 05:48 PT INR APTT Sodium 135 L Potassium 4.6 Chloride 102 Carbon Dioxide 20.2 L Anion Gap 12.8 H BUN 136 H* Creatinine 5.2 H* Est GFR (CKD-EPI 2020) 10.33 Glucose 242 H Calcium 10.0 Phosphorus Urine Osmolality Time Spent with Patient Time Spent with Patient: 25-34 minutes Time was spent: preparing to see the patient(eg.review tests), obtaining and/or reviewing separately otained hiistory, ordering medications,tests, procedures, referring, communicating with other health infant caregiver, indepentently interpreting results and counseling the patient
[2023-04-05] MEDS: Heparin 5,000 UNITS/ML VIAL 5000 UNITS SC (17:45)
[2023-04-05] MEDS: Insulin Aspart 300 UNITS/3 ML PEN SC ×3 (17:46→21:41)
[2023-04-05] MEDS: Pravastatin 40 MG TAB PO (20:34)
[2023-04-05] MEDS: Sodium Bicarbonate 650 MG TAB PO (20:34)
[2023-04-05] MEDS: Potassium Chloride 10 MEQ CAPCR 30 MEQ PO (20:34)
[2023-04-05] MEDS: Warfarin 5 MG TAB PO (20:34)
[2023-04-05] MEDS: Insulin Glargine 300 UNITS/3 ML PEN 40 UNITS SC (20:37)
[2023-04-05] MEDS: Nystatin POWDER 60 GM JAR TP (21:01)
[2023-04-05] MEDS: Melatonin 3 MG TAB 9 MG PO (21:39)
[2023-04-05] MEDS: Tamsulosin 0.4 MG CAPCR PO (21:39)
[2023-04-05] MEDS: Magnesium Oxide 400 MG TAB PO (21:40)
[2023-04-05] MEDS: Acetaminophen 325 MG TAB PO (21:40)
[2023-04-05] MEDS: Gabapentin 100 MG CAP 200 MG PO (21:40)
[2023-04-06] VITALS (9 sets, daily range): BP systolic 117–143; BP diastolic 74–81; PULSE 49–87; RESP 16–20; TEMP 35.9–36.6; O2SAT 99–100
[2023-04-06] MEDS: Heparin 5,000 UNITS/ML VIAL 5000 UNITS SC ×3 (00:33→17:08)
[2023-04-06 07:20] LABS: Abs Immature Grans 0.06 10^3/uL (0.0-0.06); Absolute Eosinophil Count 0.02 10^3/uL (0.0-0.7); Absolute Lymphocyte Count 1.05 10^3/uL (1.2-3.4); Absolute Monocyte Count 0.61 10^3/uL (0.1-0.8); Absolute Neutrophil Count 5.93 10^3/uL (1.2-6.7); Eosinophils % 0.3; HCT 25.4 % (40.0-50.0); HGB 7.9 g/dL (13.5-17.5); Immature Grans % 0.8; Lymphocytes % 13.7; MCH 26.7 pg (27.0-33.0); MCHC 31.1 % (32.0-36.0); MCV 86 fL (80-95); MPV 8.6 fL (8.0-11.0); Neutrophils % 77.2; Platelet Count 256 10^3/uL (130-400); RBC 2.96 10^6/uL (4.36-5.78); RDW 17.7 % (11.8-14.1); RDW-SD 54.1 fL; WBC 7.67 10^3/uL (4.4-10.8)
[2023-04-06 07:24] LABS: Lab Add On Test DONE
[2023-04-06 07:27] LABS: Prothrombin Time 12.7 sec (9.3-11.0)
[2023-04-06 07:30] LABS: INR 1.2 (0.9-1.1)
[2023-04-06 07:36] LABS: Calcium 9.7 mg/dL (8.5-10.1); Chloride 105 mmol/L (98-107); Estimated GFR 12.28 (mL/min/1.73m2); Glucose 134 mg/dL (74-106); Potassium 4.7 mmol/L (3.5-5.1); Sodium 139 mmol/L (136-145)
[2023-04-06 07:53] LABS: BUN 125 mg/dL (7-18)
[2023-04-06 07:54] LABS: CREATININE 4.5 mg/dL (0.70-1.30)
[2023-04-06 07:58] LABS: PHOSPHORUS 5.4 mg/dL (2.6-4.7)
[2023-04-06] MEDS: Finasteride 5 MG TAB PO (08:08)
[2023-04-06] MEDS: Fluconazole 100 MG TAB PO (08:08)
[2023-04-06] MEDS: Omeprazole 20 MG CAPCR PO (08:08)
[2023-04-06] MEDS: Docusate Sodium 100 MG CAP PO (08:08)
[2023-04-06] MEDS: Sodium Bicarbonate 650 MG TAB PO ×3 (08:08→20:57)
[2023-04-06] MEDS: Polyethylene Glycol 3350 17 GM PACKET PO (08:09)
[2023-04-06] MEDS: Potassium Chloride 10 MEQ CAPCR 30 MEQ PO ×2 (08:09→20:57)
[2023-04-06] MEDS: Insulin Aspart 300 UNITS/3 ML PEN SC ×6 (08:11→22:56)
[2023-04-06] MEDS: Nystatin POWDER 60 GM JAR TP ×3 (08:16→20:45)
[2023-04-06] MEDS: HYDROmorphone 2 MG TAB 1 MG PO (09:48)
--- NOTE | 2023-04-06 11:19 | PT.INTREAT ---
Date of service: 04/06/23 Time of Service: 10:45 PT Notes Visit Reasons: Anemia, Acute Respiratory Failure, UTI Inpatient Physical Therapy Treatment Note [facility] Date: 04/06/2023 PRECAUTIONS: Fall, Standard, Activity as tolerated, Cystoscopy on 04/05/23 SUBJECTIVE: Stated he is eager to sit up. Knows he needs to get moving to be able to return home with his . OBJECTIVE: PAIN: No complaints offered. BED MOBILITY/TRANSFERS Rolling L/R: Rolled to left with mod assist of 2 Supine-sit: Mod assist of 2-3 Sit-stand: Verbal cueing and CGA of 2 and one stand by Stand-sit: Verbal cueing and support of walker, CGA of 2 Bed-Chair: With FWW and CGA of 2, stand by guard of 1 GAIT Assistive Device: FWW Weight bearing: Full Assist: CGA and verbal cueing Distance: Approximately 8ft bed to chair Deviation: slow controlled pace THEREX: Once up in chair patient performed AP, LAQs, seated hip abd/adduction and small seated marching for 10 reps x 2 sets. ASSESSMENT: Tolerated ambulation and exercises well, but very nervous about falling and difficulty with bed mobility. PLAN: Continue to work on ADL function with bed mobility and ambulation, with continued strengthening activities. TREATMENT CODE/TIME: 82862/ 21505, 10:45-11:15 am
--- NOTE | 2023-04-06 11:49 | W.PM.PROGNOT ---
Date of Service Date of service: 04/06/23 Time of Service: 11:50 Assessment and Plan Assessment and plan (1) KENNETH (acute kidney injury): Status: Acute Assessment and plan: s/p left percutaneous nephrostomy tube placement at [facility] for left hydronephrosis on 04/05/23. Notable improvement in creatinine; now 4.5. Cont to monitor. Of note; when nephrotomy tube placed, purulent material was returned and this was sent for culture. Will need to f/u with [facility] for the culture results. (2) Chronic kidney disease: Status: Chronic Assessment and plan: Acute on chronic renal failure. Combination of over diuresis for his right heart failure along w/ new obstruction of his left ureter causing him hydronephrosis. Patient has baseline CKD w/ BUN 60's and creatinine around 4. However he has worsened and after failed attempt at cystoscopy and stent placement he was sent to [facility] for nephrostomy tube placement as per above. Creatinine approaching his baseline. (3) Hyperphosphatemia: Status: Acute Assessment and plan: PhosLo w/ meals Phosphorous improved to 5.4. (4) Hypokalemia: Status: Acute Assessment and plan: potassium level now normal Monitor. (5) Obstructive nephropathy: Status: Acute Assessment and plan: has chronic indwelling griffin catheter which was changed this admission for UTI but now has higher level obstruction from nephrolithiasis. See above for details (6) Right heart failure: Status: Acute Assessment and plan: monitor respiratory status while the diuretics are on hold. Currently stable. Continue CPAP. continue to hold diuretics for now. No evidence of worsening edema. Stopping NS at 75ml/hr. 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 Has LUCAS/OHS/pulmonary hypertension. Hold torsemide/metolazone. (8) Atrial fibrillation: Status: Chronic Assessment and plan: Rate controlled. Continue metoprolol. INR reversed at [facility] prior to nephrostomy tube placement; KCentra and Vit K. Restart coumadin at 5mg daily. Bridging with SC heparin. INR 1.2 today. (9) Anemia: Status: Chronic Assessment and plan: Erythropoetin level elevated at 32; secondary to anemia. 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 Harris (11) Right shoulder pain: Status: Acute Assessment and plan: s/p CS injection by Dr Harris; doing better (12) Acute UTI: Status: Acute Assessment and plan: Due to klebsiella + mixed sapphire and now also yeast, present on admission, associated with an indwelling catheter. Finished w/ ceftriaxone. Continue fluconazole. Griffin exchanged 07/30/23. Patient had Ancef perioperatively for his cystoscopy (13) Hyperlipidemia: Assessment and plan: Continue pravastatin. (14) Diabetes mellitus type 2 in obese: Assessment and plan: Continue basal bolus insulin was adjusted to moderate SSI w/ meals. Jardiance d/c'ed due to worsening risk of UTIs, including fungal UTis. (15) LUCAS on CPAP: Assessment and plan: Continue CPAP (16) Pressure ulcer of right ischium: Status: Acute Assessment and plan: deep tissue wound, present on admission. General surgery recommends wound care; no surgical intervention needed. (17) DVT prophylaxis: Status: Acute Assessment and plan: use SCD while off anticoagulation (18) Discharge planning issues: Status: Acute Assessment and plan: DNR/DNI Continues to require hospitalization. Patient has been accepted to [facility] however transfer has been delayed due to his renal fxn not recovering and his complications w/ low K and shoulder pain and now right wrist pain. Subjective Subjective Patient reports: no new complaints, tolerating a regular diet and afebrile; denies nausea, vomiting or shortness of breath Interval history since last seen: Pt is very emotional this am; thanking [facility] staff for the care he has received. Exam Narrative Exam Narrative: Sav is lying in bed. Conversant. is present. He is alert and oriented Lungs: clear. Nonlabored breathing. Heart: bradycardic but irregularly irregular Abdomen: soft, nontender Legs: no edema Objective Last Vital Signs Temp 36.6 C 04/06/23 07:10 Pulse 50 L 04/06/23 07:10 Resp 16 04/06/23 07:10 BP 117/75 04/06/23 07:10 Pulse Ox 99 04/06/23 07:10 Laboratory Results - last 24 hr 04/06/23 04/06/23 04/06/23 06:26 06:26 06:45 WBC RBC Hgb Hct MCV MCH MCHC RDW Plt Count MPV Immature Gran % Neutrophils % Lymphocytes % Monocytes % Eosinophils % Basophils % Nucleated RBC % Absolute Neutrophils Absolute Lymphocytes Absolute Monocytes Absolute Eosinophils Absolute Basophils PT 12.7 H INR 1.2 H Sodium Potassium Chloride Carbon Dioxide Anion Gap BUN Creatinine Est GFR (CKD-EPI 2020) Glucose Calcium Phosphorus 5.4 H Add-On Test Request DONE 04/06/23 04/06/23 06:45 06:45 WBC 7.67 RBC 2.96 L Hgb 7.9 L Hct 25.4 L MCV 86 MCH 26.7 L MCHC 31.1 L RDW 17.7 H Plt Count 256 MPV 8.6 Immature Gran % 0.8 Neutrophils % 77.2 Lymphocytes % 13.7 Monocytes % 8.0 Eosinophils % 0.3 Basophils % 0.0 Nucleated RBC % 0.0 Absolute Neutrophils 5.93 Absolute Lymphocytes 1.05 L Absolute Monocytes 0.61 Absolute Eosinophils 0.02 Absolute Basophils 0.00 PT INR Sodium 139 Potassium 4.7 Chloride 105 Carbon Dioxide 20.0 L Anion Gap 14.0 H BUN 125 H* Creatinine 4.5 H* Est GFR (CKD-EPI 2020) 12.28 Glucose 134 H Calcium 9.7 Phosphorus Add-On Test Request Time Spent with Patient Time Spent with Patient: 25-34 minutes Time was spent: preparing to see the patient(eg.review tests), obtaining and/or reviewing separately otained hiistory, ordering medications,tests, procedures, referring, communicating with other health critical care technician and indepentently interpreting results
[2023-04-06] MEDS: Tamsulosin 0.4 MG CAPCR PO (20:57)
[2023-04-06] MEDS: Insulin Glargine 300 UNITS/3 ML PEN 40 UNITS SC (20:57)
[2023-04-06] MEDS: Magnesium Oxide 400 MG TAB PO (20:57)
[2023-04-06] MEDS: Warfarin 5 MG TAB PO (20:57)
[2023-04-06] MEDS: Pravastatin 40 MG TAB PO (20:57)
[2023-04-06] MEDS: Gabapentin 100 MG CAP 200 MG PO (20:57)
[2023-04-06] MEDS: Melatonin 3 MG TAB 9 MG PO (20:57)
[2023-04-07] VITALS (9 sets, daily range): BP systolic 111–128; BP diastolic 72–78; PULSE 61–82; RESP 16–21; TEMP 36.1–37.1; O2SAT 94–98
--- NOTE | 2023-04-07 | DI.RAD_ITS ---
Exam(s) XR PORTABLE CHEST AP EXAM: XR PORTABLE CHEST AP CLINICAL HISTORY: Chest congestion / adventitious breath sounds. TECHNIQUE: 2D digital imaging was performed of the chest. One image was obtained. An AP view was ob tained. COMPARISON: CR XR PORTABLE CHEST AP from 03/27/2023 FINDINGS: MEDIASTINUM: Normal. HEART: Normal. PULMONARY VASCULATURE: Normal. LUNGS: Clear. PLEURAL SPACE: No pleural effusion or pneumothorax. BONE:Within normal limits for the patient's age. OTHER FINDINGS:Normal. IMPRESSION: No acute pulmonary findings. DATA REPOSITORY: RADIATION DOSE DELIVERED:
[2023-04-07] MEDS: Heparin 5,000 UNITS/ML VIAL 5000 UNITS SC ×3 (00:47→17:15)
[2023-04-07 07:34] LABS: HCT 26.5 % (40.0-50.0); HGB 8.3 g/dL (13.5-17.5); MCH 27.1 pg (27.0-33.0); MCHC 31.3 % (32.0-36.0); MCV 87 fL (80-95); MPV 8.6 fL (8.0-11.0); Platelet Count 239 10^3/uL (130-400); RBC 3.06 10^6/uL (4.36-5.78); RDW 17.5 % (11.8-14.1); RDW-SD 54.4 fL; WBC 7.89 10^3/uL (4.4-10.8)
[2023-04-07 07:39] LABS: Anion Gap 11.8 mmol/L (3-11); CO2 21.2 mmol/L (21.0-32.0); Calcium 9.9 mg/dL (8.5-10.1); Chloride 105 mmol/L (98-107); Estimated GFR 13.34 (mL/min/1.73m2); Glucose 172 mg/dL (74-106); Potassium 4.8 mmol/L (3.5-5.1); Sodium 138 mmol/L (136-145)
[2023-04-07 07:43] LABS: BUN 121 mg/dL (7-18); CREATININE 4.2 mg/dL (0.70-1.30); INR 1.2 (0.9-1.1); Prothrombin Time 12.4 sec (9.3-11.0)
[2023-04-07] MEDS: Omeprazole 20 MG CAPCR PO (07:52)
[2023-04-07] MEDS: Insulin Aspart 300 UNITS/3 ML PEN SC ×6 (07:53→17:21)
[2023-04-07] MEDS: Finasteride 5 MG TAB PO (08:01)
[2023-04-07] MEDS: Fluconazole 100 MG TAB PO (08:01)
[2023-04-07] MEDS: Docusate Sodium 100 MG CAP PO (08:01)
[2023-04-07] MEDS: Potassium Chloride 10 MEQ CAPCR 30 MEQ PO ×2 (08:01→19:41)
[2023-04-07] MEDS: Sodium Bicarbonate 650 MG TAB PO ×3 (08:01→19:42)
[2023-04-07] MEDS: Nystatin POWDER 60 GM JAR TP ×3 (08:08→19:42)
[2023-04-07] MEDS: IRON SUCROSE COMPLEX 300 MG in Normal Saline 250 ML 167 MG IVPB (08:29)
[2023-04-07] MEDS: Linezolid 600 MG TAB PO ×2 (08:29→19:42)
[2023-04-07] MEDS: HYDROmorphone 2 MG TAB 1 MG PO (09:22)
--- NOTE | 2023-04-07 09:36 | DI.VRAD_ITS ---
PROCEDURE INFORMATION: Exam: XR Chest Exam date and time: 04/07/2023 8:15 AM Age: 82 years old Clinical indication: Other: Chest congestion / adventitious breath sounds. TECHNIQUE: Imaging protocol: Radiologic exam of the chest. Views: 1 view. COMPARISON: CR XR PORTABLE CHEST AP 03/27/2023 8:46 AM FINDINGS: Lungs: Unremarkable. No consolidation. Pleural spaces: Unremarkable. No pleural effusion. No pneumothorax. Heart/Mediastinum: Unremarkable. No cardiomegaly. Bones/joints: Degenerative changes in the glenohumeral joints IMPRESSION: No acute findings. Dictated and Authenticated by: Sophy Seymour MD. Ordering:SMILEY Juares MD
--- NOTE | 2023-04-07 12:40 | PT.INTREAT ---
Date of service: 04/07/23 Time of Service: 10:30 PT Notes Visit Reasons: Anemia, Acute Respiratory Failure, UTI Inpatient Physical Therapy Treatment Note [facility] Date: 04/07/2023 PRECAUTIONS: Fall, Standard, Activity as tolerated, Cystoscopy on 04/05/23 SUBJECTIVE: Doing okay today. Glad to get up and do his exercises. Wants to get back home with his . OBJECTIVE: ? PAIN: Indicated only pain he had when resting in bed is in the back region where Cystoscopy tube is located. Indicated this was a 3 out of 10 on 0-10 pain scale. ? BED MOBILITY/TRANSFERS? Rolling L/R: Rolled to left with mod assist of 2 Supine-sit: HOB at 50 degrees, mod assist of 1 using patient's home device to allow him to pull himself up ? Sit-stand: Verbal cueing and CGA of 2 and one stand by ? Stand-sit: Verbal cueing and support of walker, CGA of 2 ? Bed-Chair: With FWW and CGA of 2, stand by guard of 1? GAIT? Assistive Device: FWW? Weight bearing: Full Assist: CGA and verbal cueing? Distance:? Approximately 10 ft bed to chair? Deviation: slow controlled pace ? THEREX:? Once up in chair patient performed AP, LAQs, seated hip abd/adduction and small seated marching for 10 reps x 2 sets. ? ASSESSMENT: Tolerated ambulation and exercises well, but very nervous about falling. Continued difficulty with bed mobility. PLAN: Continue to work on ADL function with bed mobility and ambulation, with continued strengthening activities. TREATMENT CODE/TIME: 90467/ 16026, 10:00 to 10:30 am (30')
--- NOTE | 2023-04-07 14:39 | PGE_ITS ---
Date of Service Date of service: 04/07/23 Time of Service: 14:40 Assessment and Plan Assessment and plan (1) VRE (vancomycin resistant enterococcus) culture positive: Status: Acute Assessment and plan: See #2 (2) Acute UTI: Status: Acute Assessment and plan: Initially had a UTI due to klebsiella + mixed sapphire and now also yeast, present on admission, associated with an indwelling catheter. Finished w/ ceftriaxone. Continue fluconazole. Griffin exchanged 07/30/23. Patient had Ancef perioperatively for his cystoscopy Now urine growing VRE. Notably, there was purulent material drained at time of nephrostomy tube insertion. Initiated Linezolid 600mg po BID with plan to treat for 14 days. Checking with insurance regarding coverage. (3) KENNETH (acute kidney injury): Status: Acute Assessment and plan: s/p left percutaneous nephrostomy tube placement at [facility] for left hydronephrosis on 04/05/23. Notable improvement in creatinine; 4.2 Nephrostomy drain output: 04/06 260. Cont to monitor. (4) Chronic kidney disease: Status: Chronic Assessment and plan: Patient has baseline CKD w/ BUN 60's and creatinine around 4. However he has worsened and after failed attempt at cystoscopy and stent placement he was sent to [facility] for nephrostomy tube placement as per above. Creatinine approaching his baseline. (5) Obstructive nephropathy: Status: Acute Assessment and plan: has chronic indwelling griffin catheter. (6) Right heart failure: Status: Acute Assessment and plan: monitor respiratory status while the diuretics are on hold. Currently stable. Continue CPAP. continue to hold diuretics for now. No evidence of worsening edema. Stopping NS at 75ml/hr. (7) Atrial fibrillation: Status: Chronic Assessment and plan: Rate controlled. Continue metoprolol. INR reversed at [facility] prior to nephrostomy tube placement; KCentra and Vit K. Restart coumadin at 5mg daily. Bridging with SC heparin. INR still 1.2 today. (8) Hyperphosphatemia: Status: Acute Assessment and plan: PhosLo w/ meals Phosphorous improved to 5.4. (9) Hypokalemia: Status: Acute Assessment and plan: potassium level now normal Monitor. 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 Has LUCAS/OHS/pulmonary hypertension. Hold torsemide/metolazone. (11) Anemia: Status: Chronic Assessment and plan: Erythropoetin level elevated at 32; secondary to anemia. Venofer 300mg IV. 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 Harris (13) Right shoulder pain: Status: Acute Assessment and plan: s/p CS injection by Dr Harris; doing better (14) Hyperlipidemia: Assessment and plan: Continue pravastatin. (15) Diabetes mellitus type 2 in obese: Assessment and plan: Continue basal bolus insulin was adjusted to moderate SSI w/ meals. Jardiance d/c'ed due to worsening risk of UTIs, including fungal UTis. (16) LUCAS on CPAP: Assessment and plan: Continue CPAP (17) Pressure ulcer of right ischium: Status: Acute Assessment and plan: deep tissue wound, present on admission. General surgery recommends wound care; no surgical intervention needed. (18) DVT prophylaxis: Status: Acute Assessment and plan: use SCD while off anticoagulation (19) Discharge planning issues: Status: Acute Assessment and plan: DNR/DNI Continues to require hospitalization. Patient has been accepted to [facility] however transfer has been delayed due to his renal fxn not recovering and his complications w/ low K and shoulder pain and now right wrist pain. Subjective Subjective Patient reports: no new complaints, tolerating a regular diet and afebrile; denies nausea, vomiting or shortness of breath Exam Narrative Exam Narrative: Sav is lying in bed. Conversant. is present. He is alert and oriented Lungs: clear. Nonlabored breathing. Heart: bradycardic but irregularly irregular Abdomen: soft, nontender. Left nephrostomy tube site w/o tenderness. Pinkish- red thin fluid in collection bag. Legs: no edema Objective Last Vital Signs Temp 36.1 C L 04/07/23 08:10 Pulse 82 04/07/23 09:58 Resp 19 04/07/23 08:10 BP 113/78 04/07/23 08:10 Pulse Ox 94 04/07/23 08:10 Laboratory Results - last 24 hr 04/07/23 04/07/23 04/07/23 06:10 06:10 06:10 WBC 7.89 RBC 3.06 L Hgb 8.3 L Hct 26.5 L MCV 87 MCH 27.1 MCHC 31.3 L RDW 17.5 H Plt Count 239 MPV 8.6 PT 12.4 H INR 1.2 H Sodium 138 Potassium 4.8 Chloride 105 Carbon Dioxide 21.2 Anion Gap 11.8 H BUN 121 H* Creatinine 4.2 H* Est GFR (CKD-EPI 2020) 13.34 Glucose 172 H Calcium 9.9 Time Spent with Patient Time Spent with Patient: 25-34 minutes Time was spent: preparing to see the patient(eg.review tests), ordering medications,tests, procedures, referring, communicating with other health residential caregiver and indepentently interpreting results
--- NOTE | 2023-04-07 16:29 | NUR.NOTE ---
Nursing Note: The patients took home patients own medication, given to the by this RN.
[2023-04-07] MEDS: Warfarin 5 MG TAB PO (19:42)
[2023-04-07] MEDS: Pravastatin 40 MG TAB PO (19:42)
[2023-04-07] MEDS: Insulin Glargine 300 UNITS/3 ML PEN 42 UNITS SC (19:42)
[2023-04-07] MEDS: Melatonin 3 MG TAB 9 MG PO (23:04)
[2023-04-07] MEDS: Magnesium Oxide 400 MG TAB PO (23:04)
[2023-04-07] MEDS: Gabapentin 100 MG CAP 200 MG PO (23:04)
[2023-04-07] MEDS: Tamsulosin 0.4 MG CAPCR PO (23:04)
[2023-04-08] VITALS (7 sets, daily range): BP systolic 115–128; BP diastolic 72–84; PULSE 68–89; RESP 16–22; TEMP 36.2–37.1; O2SAT 96–99
[2023-04-08] MEDS: Heparin 5,000 UNITS/ML VIAL 5000 UNITS SC ×4 (01:25→23:48)
[2023-04-08 06:45] LABS: INR 1.4 (0.9-1.1)
[2023-04-08] MEDS: Fluconazole 100 MG TAB PO (08:14)
[2023-04-08] MEDS: Linezolid 600 MG TAB PO ×2 (08:14→20:03)
[2023-04-08] MEDS: Finasteride 5 MG TAB PO (08:14)
[2023-04-08] MEDS: Docusate Sodium 100 MG CAP PO (08:14)
[2023-04-08] MEDS: Omeprazole 20 MG CAPCR PO (08:15)
[2023-04-08] MEDS: Polyethylene Glycol 3350 17 GM PACKET PO (08:15)
[2023-04-08] MEDS: Potassium Chloride 10 MEQ CAPCR 30 MEQ PO ×2 (08:15→20:02)
[2023-04-08] MEDS: Insulin Aspart 300 UNITS/3 ML PEN SC ×6 (08:17→23:46)
[2023-04-08] MEDS: Sodium Bicarbonate 650 MG TAB PO ×3 (08:25→20:03)
[2023-04-08] MEDS: Nystatin POWDER 60 GM JAR TP ×3 (08:25→20:18)
--- NOTE | 2023-04-08 09:27 | CMPROGNOTE_ITS ---
Date of service: 04/08/23 Time of Service: 09:27 Care Management Progress Note Progress Note Text Progress Note Text: S/O: ? Sav was sitting up in his chair, visiting with his when CM met with him. He is feeling much better and shares that he has a lot more energy.?On [place] [facility] [place] for a nephrostomy tube placement for left hydronephrosis and medically he is improving and is able to return home with services, per provider. His plans to transport him, however he may require a lift assist, awaiting PT recommendations. Sav is interested in [facility], and a brochure was provided. CM will follow. A: 82 year old male admitted to [facility] on 03/21/23 for Anemia, acute respiratory failure, UTI P:? Anticipate Sav will be ready for discharge home with resumption of [facility] RN, add PT, OT, MEDICAL OFFICE TECHNICIAN services. He may need a lift assist, awaiting PT recommendation. ? CM will continue to follow and support discharge needs.
--- NOTE | 2023-04-08 15:05 | W.PALPGNOTE ---
Date of service: 04/08/23 Time of Service: 14:20 Assessment and Plan Assessment and plan (1) Hydronephrosis, left: Status: Acute Assessment and plan: Status post percutaneous nephrostomy tube placement at [facility] on 519 renal labs improving continue to monitor, Urology consult today (2) Advance care planning: Status: Acute Assessment and plan: Reviewed plan postmortem, preference to have and daughter have ongoing support, which would be appropriate to hospice bereavement programs Continue to review care preferences, including ongoing chronic kidney disease with review of decision on dialysis or comfort care has all equipment at home, recommend obtaining life alert If it helps my it helps me (3) Chronic indwelling Knox catheter: Status: Acute Assessment and plan: Replaced on 04/05, increased infection risk (4) Chronic kidney disease: Status: Chronic Assessment and plan: Stage IV, 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 twice daily started, plan for 14 days (8) Acute UTI: Status: Acute Assessment and plan: As above (9) Acute kidney injury superimposed on chronic kidney disease: Status: Suspected Assessment and plan: Improving Subjective Subjective Interval history since last seen: Waiting to hear from urology regarding discharge plan, hopeful for today. wonders about 2 questions, like how long he can stay in how to care for, increase infection risk, etc, will ask Dr. Santos on consult today Left percutaneous nephrostomy tube placed at [facility] for left hydronephrosis, renal function improving, culture pending, to be followed up /[facility] Have all equipment being at home, including a reclining in bed and electric recliner, has shower chair. Wonders about plan for if he were to fall and unable to get up, wonders if a life alert could be helpful He is on a special diet in the hospital, carb reduction, low-sodium and heart friendly, would like additional information for food choices at home They both feel comfortable with plan to return home at this time, with home health support Sav is very interested in injuring his and daughter taking care of after his , he would like to continue to focus on reducing his burden on , with services and care goals focusing on this as well Exam Narrative Exam Narrative: General: older obese male, reclined in recliner at bedside, feet elevated, at bedside; NAD HEENT: normocephalic, atraumatic, hearing WNL Resp: speaks full sentences w/SOB w/prolonged speech, prolonged expiratory phase, no audible wheezes or cough Skin: scattered superficial bruising BUE, did not conduct full skin exam Psych: cooperative, MS clear at start of exam, speech clear, thought process/content normal; insight/judgment limited to fair Objective Last Vital Signs Temp 97.5 F L 04/08/23 10:58 Pulse 76 04/08/23 10:58 Resp 22 04/08/23 10:58 BP 128/80 04/08/23 10:58 Pulse Ox 98 04/08/23 10:58 Laboratory Results - last 24 hr 04/08/23 06:25 PT 14.0 H INR 1.4 H
--- NOTE | 2023-04-08 15:48 | PT.INTREAT ---
Date of service: 04/08/23 Time of Service: 11:26 PT Notes Visit Reasons: Anemia, Acute Respiratory Failure, UTI Inpatient Physical Therapy Treatment Note [facility] Date: 04/08/23 PRECAUTIONS: Fall, standard, activity as tolerated, enteric droplet precautions. SUBJECTIVE: Patient reports doing fair to middlin' however patient's countenance appears more positive, patient reports feeling stronger and having more energy. Patient is agreeable to therapy. OBJECTIVE: Patient long sitting in bed. PAIN: none reported BED MOBILITY/TRANSFERS Rolling L/R: CGA Supine-sit: min assist of 1 Sit-supine: not assessed Sit-stand: min assist Stand-sit: contact guard Bed-Chair: contact guard Chair-bed: contact guard GAIT Assistive Device: front wheeled walker Weight bearing: full Assist: CGA Distance: 20 feet Deviation: Patient demonstrates reduced step height, reduced stride length. As patient fatigues he curls forward, pushes walker further from body. Regains posture and safe distance from AD with verbal cue. ASSESSMENT: Patient tolerates therapy well, is resting in recliner with call mcneal in reach at end of treatment session. PLAN: Patient is improving in functional mobility, strength, and endurance. Continue treatment per plan of care. TREATMENT CODE/TIME: 17559 Ther Act 15 minutes, 53135 Gait 9 minutes
--- NOTE | 2023-04-08 16:07 | PGE_ITS ---
Date of Service Date of service: 04/08/23 Time of Service: 16:07 Assessment and Plan Assessment and plan (1) Hydronephrosis, left: Status: Acute Assessment and plan: The patient's renal function has improved with adequate kidney drainage. We are not certain as to the exact etiology of his hydronephrosis. Generally, we would recommend placement of an antegrade stent and consideration of ureteroscopy. At the time of ureteroscopy, his bladder stones could be addressed as well. Given the patient's medical history, he is not felt to be a good anesthesia candidate to have these types of procedures done locally. I will contact Dr. Caban and his staff so that this gentleman surgical follow-up be done at [facility]. In terms of the patient's home care, his will only need to empty his nephrostomy tube drainage bag as the nephrostomy tube is not meant to be a long- term device for this gentleman. Routine bathing and hygiene can be performed while the nephrostomy tube is in place. Subjective Subjective Interval history since last seen: Chief complaint: Hydronephrosis I was unable to place a retrograde stent last week, so we asked interventional radiology to place a nephrostomy tube. The tube was placed successfully on Saturday. Since then, his renal function has improved rather dramatically. He does not have a ureteral stent but only has the nephrostomy tube at this point. We also know that he has some rather large bladder stones present. He has been under the care of Dr. Pulliam at [facility] for his previous stone surgeries. He is not a good anesthesia risk for extensive procedures at our facility. Exam Const Other: He appears comfortable His vital signs are documented elsewhere He is awake and alert I reviewed the cultures that were obtained at the time of his nephrostomy tube placement. No uropathogens were identified Objective Last Vital Signs Temp 36.4 C L 04/08/23 15:24 Pulse 73 04/08/23 15:24 Resp 22 04/08/23 15:24 BP 126/84 04/08/23 15:24 Pulse Ox 99 04/08/23 15:24 Laboratory Results - last 24 hr 04/08/23 06:25 PT 14.0 H INR 1.4 H Time Spent with Patient Time Spent with Patient: 25-34 minutes Time was spent: other
--- NOTE | 2023-04-08 17:37 | W.PM.PROGNOT ---
Date of Service Date of service: 04/08/23 Time of Service: 17:37 Assessment and Plan Assessment and plan (1) VRE (vancomycin resistant enterococcus) culture positive: Status: Acute Assessment and plan: See #2 (2) Acute UTI: Status: Acute Assessment and plan: Initially had a UTI due to klebsiella + mixed sapphire and now also yeast, present on admission, associated with an indwelling catheter. Finished w/ ceftriaxone. Continue fluconazole. Griffin exchanged 07/30/23. Patient had Ancef perioperatively for his cystoscopy Now urine growing VRE. Notably, there was purulent material drained at time of nephrostomy tube insertion. Initiated Linezolid 600mg po BID with plan to treat for 14 days. His insurance approved a prior auth. (3) KENNETH (acute kidney injury): Status: Acute Assessment and plan: s/p left percutaneous nephrostomy tube placement at [facility] for left hydronephrosis on 04/05/23. Notable improvement in creatinine; 3.8 Nephrostomy drain functioning. Cont to monitor. (4) Chronic kidney disease: Status: Chronic Assessment and plan: Patient has baseline CKD w/ BUN 60's and creatinine around 4. However he has worsened and after failed attempt at cystoscopy and stent placement he was sent to [facility] for nephrostomy tube placement as per above. Creatinine approaching his baseline. (5) Obstructive nephropathy: Status: Acute Assessment and plan: has chronic indwelling griffin catheter. Dr Santos arranging f/u at [facility] for likely stenting; hydronephrosis etiology is not clear. (6) Right heart failure: Status: Acute Assessment and plan: monitor respiratory status while the diuretics are on hold. Currently stable. Continue CPAP. continue to hold diuretics for now. No evidence of worsening edema. Stopping NS at 75ml/hr. (7) Atrial fibrillation: Status: Chronic Assessment and plan: Rate controlled. Continue metoprolol. INR reversed at [facility] prior to nephrostomy tube placement; KCentra and Vit K. Restart coumadin at 5mg daily. Bridging with SC heparin. INR 1.4 (8) Hyperphosphatemia: Status: Acute Assessment and plan: PhosLo w/ meals Phosphorous improved to 5.4. (9) Hypokalemia: Status: Acute Assessment and plan: potassium level now normal Monitor. 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 Has LUCAS/OHS/pulmonary hypertension. Hold torsemide/metolazone. (11) Anemia: Status: Chronic Assessment and plan: Erythropoetin level elevated at 32; secondary to anemia. Venofer 300mg IV. 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 Harris (13) Right shoulder pain: Status: Acute Assessment and plan: s/p CS injection by Dr Harris; doing better (14) Hyperlipidemia: Assessment and plan: Continue pravastatin. (15) Diabetes mellitus type 2 in obese: Assessment and plan: Continue basal bolus insulin was adjusted to moderate SSI w/ meals. Jardiance d/c'ed due to worsening risk of UTIs, including fungal UTis. (16) LUCAS on CPAP: Assessment and plan: Continue CPAP (17) Pressure ulcer of right ischium: Status: Acute Assessment and plan: deep tissue wound, present on admission. General surgery recommends wound care; no surgical intervention needed. (18) DVT prophylaxis: Status: Acute Assessment and plan: use SCD while off anticoagulation (19) Discharge planning issues: Status: Acute Assessment and plan: DNR/DNI Continues to require hospitalization. Patient has been accepted to [facility] however transfer has been delayed due to his renal fxn not recovering and his complications w/ low K and shoulder pain and now right wrist pain. Subjective Subjective Patient reports: no new complaints, feels better and afebrile; denies shortness of breath Interval history since last seen: Working with PT Exam Narrative Exam Narrative: Sav is lying in bed. Conversant. is present. He is alert and oriented Lungs: clear. Nonlabored breathing. Heart: bradycardic but irregularly irregular Abdomen: soft, nontender. Left nephrostomy tube site w/o tenderness. Pinkish-red thin fluid in collection bag. Legs: no edema Objective Last Vital Signs Temp 36.4 C L 04/08/23 15:24 Pulse 73 04/08/23 15:24 Resp 22 04/08/23 15:24 BP 126/84 04/08/23 15:24 Pulse Ox 99 04/08/23 15:24 Laboratory Results - last 24 hr 04/08/23 06:25 PT 14.0 H INR 1.4 H Time Spent with Patient Time Spent with Patient: 25-34 minutes Time was spent: preparing to see the patient(eg.review tests), obtaining and/or reviewing separately otained hiistory, ordering medications,tests, procedures, referring, communicating with other health director of health care marketing, indepentently interpreting results and counseling the patient
[2023-04-08] MEDS: Warfarin 5 MG TAB PO (20:02)
[2023-04-08] MEDS: Pravastatin 40 MG TAB PO (20:02)
[2023-04-08] MEDS: Insulin Glargine 300 UNITS/3 ML PEN 42 UNITS SC (20:03)
[2023-04-08] MEDS: Normal Saline Flush 10 ML SYR IVP (20:03)
[2023-04-08] MEDS: Gabapentin 100 MG CAP 200 MG PO (22:19)
[2023-04-08] MEDS: Tamsulosin 0.4 MG CAPCR PO (22:19)
[2023-04-08] MEDS: Magnesium Oxide 400 MG TAB PO (22:19)
[2023-04-08] MEDS: Melatonin 3 MG TAB 9 MG PO (22:19)
[2023-04-09 01:55] VITALS: BP 119/64; PULSE 67; RESP 16; TEMP 36.5; O2SAT 98
[2023-04-09 05:50] VITALS: BP 111/73; PULSE 65; RESP 18; TEMP 36.4; O2SAT 98
[2023-04-09] MEDS: Normal Saline Flush 10 ML SYR IVP (06:14)
[2023-04-09 06:38] LABS: Absolute Basophil Count 0.01 10^3/uL (0.0-0.2); Absolute Eosinophil Count 0.27 10^3/uL (0.0-0.7); Absolute Lymphocyte Count 1.53 10^3/uL (1.2-3.4); Absolute Monocyte Count 0.67 10^3/uL (0.1-0.8); Absolute Neutrophil Count 5.99 10^3/uL (1.2-6.7); Basophils % 0.1; Eosinophils % 3.2; HCT 27.8 % (40.0-50.0); HGB 8.5 g/dL (13.5-17.5); Immature Grans % 1.2; Lymphocytes % 17.9; MCH 26.8 pg (27.0-33.0); MCHC 30.6 % (32.0-36.0); MCV 88 fL (80-95); MPV 8.7 fL (8.0-11.0); Monocytes % 7.8; Neutrophils % 69.8; Platelet Count 202 10^3/uL (130-400); RBC 3.17 10^6/uL (4.36-5.78); RDW 18.2 % (11.8-14.1); RDW-SD 56.1 fL; WBC 8.57 10^3/uL (4.4-10.8)
[2023-04-09 06:50] LABS: INR 1.6 (0.9-1.1); Prothrombin Time 16.5 sec (9.3-11.0)
[2023-04-09 07:11] LABS: Anion Gap 6.7 mmol/L (3-11); CO2 23.3 mmol/L (21.0-32.0); Calcium 10.1 mg/dL (8.5-10.1); Chloride 105 mmol/L (98-107); Estimated GFR 15.05 (mL/min/1.73m2); Glucose 136 mg/dL (74-106); Potassium 5.6 mmol/L (3.5-5.1); Sodium 135 mmol/L (136-145)
[2023-04-09 07:13] LABS: CREATININE 3.8 mg/dL (0.70-1.30)
[2023-04-09 07:14] LABS: BUN 99 mg/dL (7-18)
--- NOTE | 2023-04-09 07:17 | W.PM.PROGNOT ---
Date of Service Date of service: 04/09/23 Time of Service: 07:18 Assessment and Plan Assessment and plan (1) Hydronephrosis, left: Status: Acute (2) Chronic indwelling Griffin catheter: Status: Acute (3) Kidney stones: Status: Chronic Assessment and plan: I have gone ahead and placed an outpatient referral for this gentleman to see Dr. Pulliam at [facility]. Mr. Winkler does not need a specific follow-up appointment with me until after he has completed his care with Dr. Pulliam. If the patient has not heard from [facility] regarding an appointment, I have asked the patient and his to give my office a call so that we can troubleshoot any potential issues with the referral. Subjective Subjective Interval history since last seen: No flank pain Exam Narrative Exam Narrative: His urine remains clear from the neph tube and from the griffin Objective Last Vital Signs Temp 36.4 C L 04/09/23 05:50 Pulse 65 04/09/23 05:50 Resp 18 04/09/23 05:50 BP 111/73 04/09/23 05:50 Pulse Ox 98 04/09/23 05:50 Laboratory Results - last 24 hr 04/08/23 04/09/23 04/09/23 06:25 06:18 06:18 WBC 8.57 RBC 3.17 L Hgb 8.5 L Hct 27.8 L MCV 88 MCH 26.8 L MCHC 30.6 L RDW 18.2 H Plt Count 202 MPV 8.7 Immature Gran % 1.2 Neutrophils % 69.8 Lymphocytes % 17.9 Monocytes % 7.8 Eosinophils % 3.2 Basophils % 0.1 Nucleated RBC % 0.0 Absolute Neutrophils 5.99 Absolute Lymphocytes 1.53 Absolute Monocytes 0.67 Absolute Eosinophils 0.27 Absolute Basophils 0.01 PT 14.0 H INR 1.4 H Sodium 135 L Potassium 5.6 H Chloride 105 Carbon Dioxide 23.3 Anion Gap 6.7 BUN 99 H* Creatinine 3.8 H* Est GFR (CKD-EPI 2020) 15.05 Glucose 136 H Calcium 10.1 04/09/23 06:18 WBC RBC Hgb Hct MCV MCH MCHC RDW Plt Count MPV Immature Gran % Neutrophils % Lymphocytes % Monocytes % Eosinophils % Basophils % Nucleated RBC % Absolute Neutrophils Absolute Lymphocytes Absolute Monocytes Absolute Eosinophils Absolute Basophils PT 16.5 H INR 1.6 H Sodium Potassium Chloride Carbon Dioxide Anion Gap BUN Creatinine Est GFR (CKD-EPI 2020) Glucose Calcium Time Spent with Patient Time Spent with Patient: <25 minutes Time was spent: referring, communicating with other health care director rn
[2023-04-09] MEDS: Fluconazole 100 MG TAB PO (07:56)
[2023-04-09] MEDS: Finasteride 5 MG TAB PO (07:56)
[2023-04-09] MEDS: Sodium Bicarbonate 650 MG TAB PO (07:56)
[2023-04-09] MEDS: Linezolid 600 MG TAB PO (07:56)
[2023-04-09] MEDS: Docusate Sodium 100 MG CAP PO (07:56)
[2023-04-09] MEDS: Nystatin POWDER 60 GM JAR TP (07:56)
[2023-04-09] MEDS: Potassium Chloride 10 MEQ CAPCR 30 MEQ PO (07:56)
[2023-04-09] MEDS: Omeprazole 20 MG CAPCR PO (07:56)
[2023-04-09] MEDS: Insulin Aspart 300 UNITS/3 ML PEN SC ×2 (07:57→12:18)
[2023-04-09] MEDS: Heparin 5,000 UNITS/ML VIAL 5000 UNITS SC (07:57)
[2023-04-09 08:00] VITALS: O2SAT 96
[2023-04-09] MEDS: Polyethylene Glycol 3350 17 GM PACKET PO (08:22)
--- NOTE | 2023-04-09 08:41 | PDOC.CMDIS ---
Date of service: 04/09/23 Time of Service: 08:42 LACE Index Scoring Tool Questions: Length of Stay (in days): 14 or more Was the patient admitted via the E.D.?: Yes Comorbidities: Diabetes w/o Complication, Congestive Heart Failure and Liver or Renal Disease E.D. Visits: 2 Answers: Total Score: 17 Risk of Readmission: High Risk Care Management Discharge Plan Reason for Hospitalization: Anemia, acute respiratory failure, UTI Discharge Plan: Sav is discharged home with resumption of [facility] RN, add PT/OT/INTELLIGENCE SENIOR SERGEANT services. He is transported via private vehicle with . He will follow up with community providers and his discharge plan of care as instructed. RX's are transmitted to [facility], PCP f/u on 04/24/23, as scheduled and outpatient follow up with [facility] Urology to be arranged by Dr Santos's office. Patient/Family Education Needs: Review discharge instructions, limitations, medications and plan to follow up with community providers. Discuss ask me three. Services Needed at Discharge: Home Health Care Services (resumption of [facility] RN, add PT/OT/INTELLIGENCE SENIOR SERGEANT services.)
--- NOTE | 2023-04-09 08:51 | W.PM.DS.N ---
Date of service: 04/09/23 Time of Service: 08:52 DS: Diagnosis Discharge Diagnosis (1) VRE (vancomycin resistant enterococcus) culture positive: Status: Acute Asessment and Plan: Post-percutaneous nephrostomy tube placement urine culture growing VRE. Purulent drainage noted when the tube was placed at [facility] [place]. On a 14 day course of Linezolid. (2) Acute UTI: Status: Acute Asessment and Plan: Due to klebsiella + mixed sapphire. This UTI was present on admission. Treated adequately. (3) KENNETH (acute kidney injury): Status: Acute Asessment and Plan: Required diuresis initially and worsening renal function resulted. However, this was found to not respond, subsequently, to fluid replacement. KENNETH d/t UTI and obstructive uropathy with left hydronephrosis of unknown origin. He was found to have kidney stones in the bladder and the left kidney but not in the ureter. Dr Santos evaluated. He was sent for a [id number] percutaneous nephrostomy tube placement at [facility] which resulted in significant improvement in renal function. His creatinine peaked at 6.2 and on day of discharge was 3.8. His BUN was also improving. His diuretic was held for multiple days but was restarted on day of discharge. Creatinine to be monitored; lab on 04/11. (4) Chronic kidney disease: Status: Chronic Asessment and Plan: As per above. (5) Obstructive nephropathy: Status: Acute Asessment and Plan: Percutaneous nephrostomy tube in place and functioning properly. Dr Santos is arranging for pts f/u at [facility]. (6) Right heart failure: Status: Acute Asessment and Plan: Diuresed well and then diuretics held d/t worsening renal function. Now that renal function is returning to baseline, Torsemide and metolazone restarted. (7) Atrial fibrillation: Status: Chronic Asessment and Plan: Cont metoprolol and warfarin. Warfarin reversed prior to nephrostomy tube placement with Vit K and KCentra. Now on 5mg daily until INR > 2 then resume his previous dosing. 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 (11) Anemia: Status: Chronic (12) Right wrist pain: Status: Acute (13) Right shoulder pain: Status: Acute (14) Hyperlipidemia: (15) Diabetes mellitus type 2 in obese: (16) LUCAS on CPAP: (17) Pressure ulcer of right ischium: Status: Acute (18) DVT prophylaxis: Status: Acute (19) Discharge planning issues: Status: Acute Discharge Plan Disposition Patient Disposition: Home W/Home Health Services Condition: Improving Discharge Details Reason For Visit: Anemia, Acute Respiratory Failure, UTI Admit Date/Time: 03/21/23 13:48 Admit Provider: Mor Adames Attending Provider: Mor Adames Primary Care Provider: Gordo Dominguez Hospital Course Hospital Course: Mr Winkler is an 82 yo male with a PMH of DM2, afib on coumadin, right heart failure, HTN, HLD, obstructive nephropahty/BPH with chronic indwelling griffin catheter.? He endorsed 5 days of shortness of breath.? EMS called and they reported his RA O2 saturation was 86%.? On arrival to the ED on 4L his saturation was 97%.? Supplemental O2 decreased to 2L then off during the course of his ED evaluation. He recently was started on torsemide for scrotal edema with some improvement. He denied cough/sputum, fever/chills, CP, palpitations.? Last urinary catheter change was 3 weeks prior to arrival.? Of note, lab the previous day showed a hgb of 6.1. In the ED it was 7.? He stated he doesn't really know if he has had melena or hematochezia because he doesn't observe his stool.? No abd pain, N/V.? WBC count 14.81.? Creatinine 5.6 (similar to values recently and at recent admission in December). Troponin negative.? BNP 71563.? Procalcitonin 0.8.? Fluvid neg.? UA with WBCs, large leuk esterase; sample was from griffin output before griffin replaced.? CXR w/o acute process. He was transfused 1 unit pRBCs and given Rocephin and admitted for further evaluation and tx. See Diagnosis ? PCP f/u in 1-2 weeks. [facility] Urology to be arranged by Dr Santos's office. Home Meds and New Rx's Prescriptions: New linezolid 600 mg tablet 600 mg PO BID Qty: 24 0RF polyethylene glycol 3350 17 gram Powder In Packet 17 g PO DAILY Qty: 0 0RF warfarin [Jantoven] 5 mg Tablet 5 mg PO QPM Qty: 0 0RF gabapentin 100 mg Capsule 200 mg PO HS Qty: 30 0RF Continued finasteride 5 mg tablet 5 mg PO DAILY Qty: 90 3RF multivitamin [Daily Multiple] 1 EACH tablet 1 ea PO DAILY omeprazole 20 MG capsule,delayed release(DR/EC) 20 mg PO DAILY 5-hydroxytryptophan (5-HTP) [5-HTP] 100 mg capsule 100 mg PO DAILY melatonin 5 mg capsule 5 mg PO HS coenzyme Q10 [Co Q-10] 10 mg capsule 10 mg PO DAILY potassium chloride [Klor-Con M10] 10 mEq tablet,ER particles/crystals 30 meq PO DAILY Qty: 270 0RF Rx Instructions: dose increase 08/30/22 tamsulosin 0.4 mg capsule 0.4 mg PO HS Qty: 90 3RF lidocaine HCl [Glydo] 2 % jelly in applicator 10 ml intra-urethral ONCE Qty: 120 0RF Rx Instructions: as a single dose - one dose per catheter change. lactulose 10 gram packet 10 g PO DAILY PRN (Reason: constipation) Qty: 30 1RF metoprolol succinate [Toprol XL] 100 mg tablet extended release 24 hr 100 mg PO DAILY Qty: 90 3RF pravastatin 40 mg tablet 40 mg PO QPM Qty: 90 3RF torsemide 20 mg tablet 40 mg PO DAILY Qty: 360 3RF acetaminophen [Tylenol] 325 mg Tablet 650 mg PO Q4H PRN PRNQty: 0 0RF docusate sodium [Colace] 100 mg capsule 100 mg PO DAILY metolazone 5 mg tablet 5 mg PO .q , Sat PRN (Reason: weight gain 3lbs/day or 7 lbs/week) insulin aspart U-100 [Novolog FlexPen U-100 Insulin] 100 unit/mL (3 mL) insulin pen SUBCUT DIRECTED Patient Comments: INJECT 30 UNITS SUBCUTANEOUSLY BEFORE MEALS Rx Instructions: -No rapid acting insulin with breakfast or lunch. -20 units + SSI 2:50>150 with dinner. insulin glargine [Lantus Solostar U-100 Insulin] 100 unit/mL (3 mL) insulin pen 39 unit SUBCUT HS Patient Comments: INJECT 40 UNITS SUBCUTANEOUSLY EVERY EVENING Held Jardiance 25 mg tablet 25 mg PO QAM Qty: 90 3RF Hold Instructions: Hold until renal function allows resumption; likely resume at 10mg daily Discontinued warfarin 2.5 mg tablet 2.5 mg PO DAILY Qty: 90 3RF Hold Instructions: Resume on 01/07/23. get repeat INR done tomorrow and check with your primary care provider regarding adjusting your dose Protocol: Dose Management Condition: Saturday Dose/Route: 2.5 mg Instruction: 1 x 2.5 mg tablet Condition: Saturday Dose/Route: 2.5 mg Instruction: 1 x 2.5 mg tablet Condition: Saturday Dose/Route: 0 mg Instruction: 0 tablets Condition: Saturday Dose/Route: 2.5 mg Instruction: 1 x 2.5 mg tablet Condition: Dose/Route: 0 mg Instruction: 0 tablets Condition: Saturday Dose/Route: 2.5 mg Instruction: 1 x 2.5 mg tablet Condition: Saturday Dose/Route: Hold Instruction: No doses Protocol Text: Adjustment Start Date: 03/21/23 INR Value: 2.5 INR Date: 03/21/23 Recheck Date: 04/20/23 No Action (DME) pen needle, diabetic [Comfort EZ Pen Santa Claus] 33 gauge x 3/16 needle See Rx Instructions .ROUTE .MEDSUPPLY Qty: 100 3RF Rx Instructions: inject once/day (DME) blood-glucose meter [OneTouch Ultra2 Meter] 1 EACH kit 1 ea Miscellaneous DAILY Qty: 1 (DME) lancets [OneTouch UltraSoft Lancets] misc 1 ea Miscellaneous DAILY Qty: 90 4RF Rx Instructions: test daily before breakfast (DME) OneTouch Ultra Test Strip 1 ea Miscellaneous DAILY Qty: 90 3RF Rx Instructions: test daily before breakfast (DME) FreeStyle Sh[place]ell 2 [place] Misc See Rx Instructions .MEDSUPPLY Qty: 1 0RF Rx Instructions: As directed (DME) FreeStyle Shantell 2 Sensor Kit See Rx Instructions .MEDSUPPLY Qty: 1 11RF Rx Instructions: As directed Discharge Instructions Instructions: Urinary Tract Infection in Men (DC), Anemia (DC), Acute Respiratory Failure (GEN) Additional Instructions: Coumadin dosing is now 5mg daily until INR greater than 2.0. When greater than 2.0 resume previous routine dosing. Lab order for daily INR to be drawn by nursing until stable INR. Stand Alone Forms: Nursing Discharge Form Referrals: Gordo Dominguez MD [Primary Care Provider] - 04/24/23 9:20 am Activity:: Activity as Tolerated Equipment/Supplies:: No Equipment Needed Diet:: Diabetic, low Na Discharge Orders Discharge Orders: Discharge Order (Routine); Ordered 04/09/23 Ordered By: Mor Adames Other Ambulatory Orders: Basic Metabolic Panel (Routine) Timeframe: [id number] Location: None Selected Ordered By: Mor Adames Prothrombin Time (Routine) Timeframe: 3 Days Location: None Selected Ordered By: Mor Adames DS: Summary Time Spent with Patient providing and/or coordinating discharge services: Greater than 30 minutes Status at Discharge Functional status at discharge: uses cane/walker Overall status at discharge: patient is progressing back to baseline Mental Status: mental status grossly normal Speech and Movement: speech clear Mood: congruent mood Affect: normal affect Exam Narrative Exam Narrative: Sav is lying in bed. Conversant. He is alert and oriented Lungs: clear. Nonlabored breathing. Heart: bradycardic but irregularly irregular Abdomen: soft, nontender. Left nephrostomy tube site w/o tenderness. Pinkish-red thin fluid in collection bag. Legs: no edema Psych Mental Status: mental status grossly normal Speech and Movement: speech clear Mood: congruent mood Affect: normal affect DS: Data Vitals/I&O Vitals and I&O: Vital Signs Temperature 36.4 C L 04/09/23 05:50 Temperature Source Tympanic 04/09/23 05:50 Pulse 65 04/09/23 05:50 Pulse Rhythm Irregular 04/09/23 06:15 Respiratory Rate 18 04/09/23 05:50 Respiratory Effort Non-Labored 04/09/23 06:15 Respiratory Depth Normal 04/09/23 06:15 Respiratory Pattern Normal 04/09/23 06:15 Blood Pressure 111/73 04/09/23 05:50 Blood Pressure Position Supine 03/21/23 10:09 Pulse Oximetry 98 04/09/23 05:50 Oxygen Delivery Method Room Air 04/09/23 05:50 Oxygen Flow Rate 0 04/09/23 05:50 Fraction of Inspired Oxygen (FIO2) 21 04/08/23 08:05 End Tidal Co2 4 03/21/23 10:09 Pain Level 0 04/09/23 01:55 Comment alma alcocer applied - charge nurse bette made aware of temp. 04/05/23 15:59 Intake & Output 04/08/23 04/08/23 04/09/23 11:59 23:59 11:59 Intake Total 410 / 1010 600 / 1010 80 / 80 Output Total 1400 / 2200 800 / 2200 1400 / 1400 Balance -990 / -1190 -200 / -1190 -1320 / -1320 Weight 146.3 kg 144.8 kg Intake: IV 110 / 110 80 / 80 Oral 300 / 900 600 / 900 Injectate 0 / 0 left flank- neph tube 0 / 0 Output: Drainage 300 / 300 left flank- neph tube 300 / 300 Urine 1400 / 1900 500 / 1900 1400 / 1400 Other: Urine Color Yellow Yellow Yellow Urine Appearance Clear Clear Clear Stool Size Large Moderate Stool Characteristics Soft Soft Formed Formed Brown Data Completed and Pending Labs on day of discharge: Labs from last 24 hours 04/09/23 04/09/23 04/09/23 06:18 06:18 06:18 WBC 8.57 RBC 3.17 L Hgb 8.5 L Hct 27.8 L MCV 88 MCH 26.8 L MCHC 30.6 L RDW 18.2 H Plt Count 202 MPV 8.7 Immature Gran % 1.2 Neutrophils % 69.8 Lymphocytes % 17.9 Monocytes % 7.8 Eosinophils % 3.2 Basophils % 0.1 Nucleated RBC % 0.0 Absolute Neutrophils 5.99 Absolute Lymphocytes 1.53 Absolute Monocytes 0.67 Absolute Eosinophils 0.27 Absolute Basophils 0.01 PT 16.5 H INR 1.6 H Sodium 135 L Potassium 5.6 H Chloride 105 Carbon Dioxide 23.3 Anion Gap 6.7 BUN 99 H* Creatinine 3.8 H* Est GFR (CKD-EPI 2020) 15.05 Glucose 136 H Calcium 10.1 PFSH All Active Problems (Updated 04/09/23 @ 09:22 by Mor Adames MD) Hyperkalemia (Acute) VRE (vancomycin resistant enterococcus) culture positive (Acute) Hydronephrosis, left (Acute) KENNETH (acute kidney injury) (Acute) Chondrocalcinosis articularis (Acute) Arthritis of right shoulder region (Acute) Arthritis of right wrist (Acute) Right wrist pain (Acute) Hyperphosphatemia (Acute) Hypokalemia (Acute) Do not resuscitate (Acute) Advance care planning (Acute) Right shoulder pain (Acute) Pressure ulcer of right ischium (Acute) Discharge planning issues (Acute) DVT prophylaxis (Acute) Fever (Acute) Chronic indwelling Griffin catheter (Acute) Symptomatic anemia (Acute) Acute renal failure (Acute) Acute UTI (Acute) Diabetes mellitus (Chronic) Atrial fibrillation (Chronic) on coumadin Chronic kidney disease (Chronic) 2020- borderline stage 4 Venous insufficiency (chronic) (peripheral) (Acute) Nail dystrophy (Acute) COVID-19 (Acute ~08/05/22) Thumb pain (Acute) Right heart failure (Acute) Urinary retention (Acute) 11/2021, ultrasound shows significant pretty and post void residual- minimal response to voiding Kidney stones (Chronic) Longstanding history of multiple stones 11/2021 ultrasound showed multiple stones in kidney, 1 stone possibly in right ureter Anemia (Chronic) Chronic mild anemia, associated with CKD Obstructive sleep apnea (Chronic) cpap Acute on chronic heart failure with preserved ejection fraction (Acute) Hives (Acute) Obesity (Acute 02/11/13) Obstructive nephropathy (Acute) Moderate pulmonary arterial systolic hypertension (Chronic) Chronic anticoagulation (Chronic) Polyp of colon (Chronic) Rosacea (Chronic) Constipation (Chronic) CHF (congestive heart failure) (Chronic) Medical History Atrial fibrillation BPH (benign prostatic hyperplasia) Diabetes mellitus type 2 in obese Essential hypertension, benign GERD (gastroesophageal reflux disease) Hyperlipidemia Nephrolithiasis Obesity hypoventilation syndrome LUCAS on CPAP Palliative care patient Surgical History Cholecystectomy (~1985) Colonoscopy - MAC (~2002) Replacement of total knee joint B/L Tonsillectomy and adenoidectomy Family History Mother Diabetes Heart disease Father Neoplasm STOMACH Brother Neoplasm Brother No problems noted. Daughter No problems noted. Social History Smoking/Tobacco Use Status: Never Second Hand Exposure: No Smoking risk assessment performed?: Yes Alcohol Intake: current Alcohol Intake frequency: holidays/special occasions only Drug use: Never Substance use type: does not use Caregiver/Support person: Yes Household members: spouse Housing: house Communication Needs: Hard of Hearing Do you need help understanding health information?: Often Pets and animals: No Sexually active: No What is your relationship status?: How often do you talk on the phone with friends or family?: decline to answer How often do you get together with friends or relatives?: decline to answer How often do you attend methodist or confucianism services?: decline to answer Do you belong to any clubs or organized social groups?: decline to answer Panel score (0-1 are the most socially isolated patients): 1 What type of physical activity do you participate in: walking Duration: < 15 minutes/day Frequency: daily Special amor needs: No Do you feel safe at home: Yes Do you feel safe in your relationship?: Yes Time Spent with Patient Time Spent with Patient: 45-69 minutes Time was spent: preparing to see the patient(eg.review tests), obtaining and/or reviewing separately otained hiistory, ordering medications,tests, procedures, referring, communicating with other health ostomy care nurse, indepentently interpreting results and counseling the patient
--- NOTE | 2023-04-09 09:13 | PDOC.HHF2F ---
Home Health Referral Home Health Orders Clinical synopsis of why skilled professionals are needed: Obstructive uropathy with percutaneous nephrostomy tube placed. +VRE UTI. Afib with RVR. Coumadin was reversed for procedure and now on 5mg daily; needs monitoring daily until INR > 2 then go back to his previous dosing schedule and monitor per PCP Acute on chronic renal failure; significantly improving and approaching baseline renal function. Medical diagnosis necessitation home health referral: VRE UTI Percutaneous nephrostomy tube. Generalized decreased strength and mobility d/t prolonged hospitalization. Registered Nurse: Check all that apply Instruct on new or changed medication(s)/assess compliance: Ordered Instruct on, and maintenance of, urinary device: Ordered Assess for exacerbation of medical condition, instruct patient/caregivers on signs and symptoms to report for early detection: Ordered Physical Therapist: Check all that apply Increase strength & endurance for safe mobility at home: Ordered To design/establish home maintenance program: Ordered Fall reduction therapy program for patient with history of frequent falls: Ordered Home safety evaluation and teaching/gait training including stair management (if applicable): Ordered Occupational Therapist: Evaluate and treat for patient unable to perform ADL/IADL/self-care: Ordered Plumbing Inspector: Assist with community resources: Ordered Home Bound Status Requires the aid of supportive device (check all that apply): Walker Assistance of another person (Describe assistance and medical necessity): Pt requires walker for ambulation and not safe to ambulate on any uneven or unfamiliar terrain. Describe why leaving home would require a considerable and taxing effort: Requires frequent rest periods and Safety Concerns: describe (Prolonged hospitalization resulting in diminished overall strength and balance. ) Encounter Date and Reason: I certify that a FTF encounter for this patient was performed on April 09, 2023 and that such encounter was related to the primary reason the patient requires home health services. The encounter was conducted in the following manner: By me as the certifying physician, INSURANCE INVESTIGATOR, PA or By an inpatient physician, INSURANCE INVESTIGATOR or PA during an inpatient stay who communicated findings to me, Certification And Authentication I certify that I composed the above information based on my clinical judgment relating to this patient's medical condition and, if applicable, clinical findings communicated to me by the NPP or inpatient physician who performed the FTF encounter. Name of Provider that will be monitoring home health services: Mor Adames
[2023-04-09] MEDS: Torsemide 20 MG TAB 40 MG PO (10:15)
[2023-04-09 10:48] VITALS: BP 110/69; PULSE 72; RESP 22; TEMP 36.4; O2SAT 98
--- NOTE | 2023-04-09 10:49 | PT.INTREAT ---
Date of service: 04/09/23 Time of Service: 09:20 PT Notes Visit Reasons: Anemia, Acute Respiratory Failure, UTI Inpatient Physical Therapy Treatment Note [facility] Date: 04/09/23 PRECAUTIONS:Fall, standard, activity as tolerated, enteric droplet precautions SUBJECTIVE: Patient reports feeling fair to middlin'. supine in bed, agreeable to therapy, eager to get home. OBJECTIVE: PAIN: complains of discomfort from nephrostomy tube. RN comes to look, changes bandage covering as tape was coming loose and pulling. Patient states it is much better after this. BED MOBILITY/TRANSFERS Rolling L/R: standby assist Supine-sit: mod assist Sit-supine: min assist Sit-stand: standby assist Stand-sit: standby assist Bed-Chair: standby assist Chair-bed: standby assist GAIT Assistive Device: front wheeled walker Weight bearing: full Assist: contact guard Distance: transfer only this session STAIRS: one 6 inch step, seated rest, one more 6 inch step. Bilateral railings, standby assist. Patient demonstrates good situational awareness, safety awareness ASSESSMENT: Patient tolerates therapy well. Wants to sit at the edge of the bed at the end of treatment session. Knows to call prior to attempting to lay down. Call [facility], telephone, water within reach. PLAN: Continue strengthening per plan of care until discharge home with home health services. TREATMENT CODE/TIME: 84252 Ther Act 17 minutes, [id number] Gait 19 minutes beginning at 9:20
--- NOTE | 2023-04-09 10:56 | NUR.NOTE ---
0900 upon changing dressing on Neph tube site I noted increased bruising & quarter sized hard mass above the drainage site. patient had no c/o any discomfort. lamp tester and inspector notified & she assessed the site. No further orders were given ATT, Will continue to monitor. Nursing Note:
--- NOTE | 2023-04-09 10:57 | WOUNDCONS ---
- If Service Date Differs Date of service: 04/09/23 Time of Service: 10:30 Wound Initial Evaluation Reviewed plan of care for wounds on buttocks. Visited with the pt. The left ischial tuberosity is totally healed. The right ischial tuberosity that was a suspected deep tissue injury has opened up to be a stage 2 ulcer. Is smaller in size than the suspected DTI and appears to be healing. Has granulation tissue in the center of the wound. Would continue treatment as previously prescribed.
[2023-04-09 11:18] LABS: Potassium 5.5 mmol/L (3.5-5.1)
--- NOTE | 2023-04-09 11:39 | NUR.NOTE ---
Patient has been DC. All DC instructions have been reviewed & signed. All question & or concerns have been addressed. PIV was removed. As per tank charger leave griffin, neph tube & midline in place. All of patients belongings have been bagged as well as wound care supplies. Patient is awaiting his for transport. Will follow up. Nursing Note:
--- NOTE | 2023-04-10 09:54 | INDS_ITS ---
Date of service: 04/09/23 PT Notes Visit Reasons: Anemia, Acute Respiratory Failure, UTI Physical Therapy Inpatient Discharge Summary Date: 04/09/2023 Dates of Service: 03/23/23 - 04/09/2023 This is a clinical summary of care provided for the duration of dates listed above. No charge was made in the completion of this documentation. Referring Doctor:? Mor Adames,? PT Orders: PT CONSULT: Eval/Treat Precautions: Fall. Standard.? Activity as tolerated.? Fearful of falling. Patient Profile/Admitting Diagnosis:? S/P nephrostomy tube placement on POD 0 from a down and back surgery at [facility].? Patient is a 82-year-old male who presented to the ED on 03/21/2023 due to 5 days worth of shortness of breath and is admitted admitted for the management of atrial fibrillation, chronic kidney disease, right-sided heart failure, anemia, moderate pulmonary arterial systolic hypertension, obstructive neuropathy, hyperlipidemia, type II DM, and LUCAS. He's participated in skilled PT intervention for 7 days, with anticipated discharge to SNF once stable. PMHX: All Active Problems? Fever (Acute) Chronic indwelling Knox catheter (Acute) Symptomatic anemia (Acute) Acute renal failure (Acute) Acute UTI (Acute) Diabetes mellitus (Chronic) Atrial fibrillation (Chronic) on coumadin Chronic kidney disease (Chronic) 2020- borderline stage 4 Venous insufficiency (chronic) (peripheral) (Acute) Nail dystrophy (Acute) COVID-19 (Acute ~08/05/22) Thumb pain (Acute) Right heart failure (Acute) Urinary retention (Acute) 11/2021, ultrasound shows significant pretty and post void residual- minimal response to voiding Kidney stones (Chronic) Longstanding history of multiple stones 11/2021 ultrasound showed multiple stones in kidney, 1 stone possibly in right ureter Anemia (Chronic) Chronic mild anemia, associated with CKD Obstructive sleep apnea (Chronic) cpapAcute on chronic heart failure with preserved ejection fraction (Acute) Hives (Acute) Obesity (Acute 02/11/13) Obstructive nephropathy (Acute) Moderate pulmonary arterial systolic hypertension (Chronic) Chronic anticoagulation (Chronic) Polyp of colon (Chronic) Rosacea (Chronic) Constipation (Chronic) CHF (congestive heart failure) (Chronic) Medical History? Atrial fibrillation BPH (benign prostatic hyperplasia) Diabetes mellitus type 2 in obese Essential hypertension, benign GERD (gastroesophageal reflux disease) Hyperlipidemia Nephrolithiasis Obesity hypoventilation syndrome LUCAS on CPAP Palliative care patient Surgical History? Cholecystectomy (~1985) Colonoscopy - MAC (~2002) Replacement of total knee joint B/L Tonsillectomy and adenoidectomy Social History/Home Situation: Patient lives with Lashawn in a 1 floor house in [facility] with 2 steps to enter, no rails.?? 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 They have one supportive daughter who lives locally.? states that she uses a device that she holds up to him so that he can pull on it to sit up in bed.? She adds that he has walked for over a week now due to weakness,? pain in B knees and fearfulness of falling.? Equipment Owned/DME: Bed that has changeable angles at the head and the knee but is not able to move up nor down Motorized wheelchair FWW SPC Subjective:? NT. See most recent ANTHROPOLOGY DEPARTMENT CHAIR notes. Objective:? General Observation: NT. See most recent ANTHROPOLOGY DEPARTMENT CHAIR notes. Mental Status: NT. See most recent ANTHROPOLOGY DEPARTMENT CHAIR notes. Pain: NT. See most recent ANTHROPOLOGY DEPARTMENT CHAIR notes. ROM: Right Upper Extremity: ? Shoulder Flexion 90 degrees. Shoulder abduction about 45 degrees. Elbow flexion WFL. Wrist flexion WFL. Functional opening and closing of hand WFL. Left Upper Extremity:? Shoulder Flexion 90 degrees. Shoulder abduction about 45 degrees. Elbow flexion WFL. Wrist flexion WFL. Functional opening and closing of hand WFL. Right Lower Extremity: Hip flexion up to 90 degrees. Hip abduction WFL. Knee flexion 0-100. Ankle dorsiflexion WFL. Ankle plantarflexion WFL. Left Lower Extremity: Hip flexion WFL. Hip abduction WFL. Knee flexion WFL. Ankle dorsiflexion WFL. Ankle plantarflexion WFL. Strength: Right Upper Extremity: Shoulder flexors 3-/5. Shoulder abductors 3-/5. Elbow flexors 4+/5. Elbow extensors 4+/5. Licensed Electrician strong. Left Upper Extremity: Shoulder flexors 3-/5. Shoulder abductors 3-/5. Elbow flexors 4+/5. Elbow extensors 4+/5. Licensed Electrician strong. Right Lower Extremity: Hip flexors 3-/5. Hip abductors 4/5. Knee flexors 3-/5. Knee extensors 4-/5. Ankle dorsiflexors 4-/5. Ankle plantarflexors 4-/5. Left Lower Extremity:Hip flexors 3-/5. Hip abductors 4/5. Knee flexors3-/5. Knee extensors 4-/5. Ankle dorsiflexors 4-/5. Ankle plantarflexors 4-/5. BED MOBILITY/TRANSFERS? Rolling L/R: standby assist Supine-sit: mod assist? Sit-supine: min assist ? Sit-stand: standby assist ? Stand-sit: standby assist? Bed-Chair: standby assist ? Chair-bed: standby assist ? GAIT? Assistive Device: front-wheeled walker? Weight bearing: full Assist: contact guard ? Distance:? able to walk up to 25 feet ? STAIRS: one 6 inch step, seated rest, one more 6 inch step. Bilateral railings, standby assist. Patient demonstrates good situational awareness, safety awareness? Balance:? Static Sitting: Good Dynamic Sitting: Good Static Standing: Fair Dynamic Standing: Fair Informed Consent/Education:? Patient instructed in purpose of PT consult and plan of care.? Patient was educated about about treatment frequency in order to maximize functional mobility performance while reducing onset of fatigue. Assessment:? S/P neprhostomy tune placement on POD 0 at [facility] today.? Patient is a 82-year-old male who presented to the ED on 03/21/2023 due to 5 days worth of shortness of breath and is admitted admitted for the management of atrial fibrillation, chronic kidney disease, right-sided heart failure, anemia, moderate pulmonary arterial systolic hypertension, obstructive neuropathy, hyperlipidemia, type II DM, and LUCAS. He's been participating in skilled PT intervention, with slow improvements in mobility and independence. He requires continued rehabilitation during his acute care stay, and is appropriate for transition to SNF for continued rehabilitation once medically stable.? Goals: Goals X1 week 1. Supine-Sit contact guard assist (progressing toward) NOT MET 2. Sit-Supine contact guard assist(progressing toward) NOT MET 3. Sit-Stand contact guard assist(progressing toward) MET 4. Stand-Sit contact guard assist with FWW (met) MET 5. Bed-Chair contact guard assist with FWW (progressing toward) MET 6. Chair-Bed contact guard assist with FWW(progressing toward) MET 7. Contact guard assist gait on level surface with use of FWW for at least 30 feet without report of pain nor dyspnea(progressing toward) MET 8. Contact guard assist stair negotiation while holding onto bilateral rails for at least 3 steps without report of pain nor dyspnea(progressing toward) MET DISCHARGE RECOMMENDATIONS: [] ? Home with no services [] [] ? Home with services [specify] [] ? Home with outpatient PT [] [X] ? SNF for continued rehabilitation.? Patient will benefit from senior living facility placement for continued skilled physical therapy services in order to progress mobility level, strength, and balance in preparation for a safe discharge to home. [] ? Senior Sql Database Developer Care [] [] ? SNF versus LTC based on ability to participate and progress [] TREATMENT CODE/TIME: NC Thank you for the opportunity to participate in the care of this patient. Madhavi Victoria PT, DPT, CLT [facility] [place], [place]
== END 2023-04-09 14:42 | disposition home health service (06) | DRG 699 ==
LOC: ER 13:38 → MS 15:12
PROVIDERS: Family Medicine; Internal Medicine; Urology; Admitting Provider Family Medicine; Emergency Provider Physician Assistant; PCP Family Medicine; Visit Provider Family Medicine
PROC: 0TJB8ZZ Inspection of Bladder, Via Natural or Artificial Opening Endoscopic (ICD-10-PCS; CPT 74450; principal; 2023-04-04 09:00)
DX: T83.511A Infection and inflammatory reaction due to indwelling urethral catheter, initial encounter (principal); E66.2 Morbid (severe) obesity with alveolar hypoventilation; I13.0 Hypertensive heart and chronic kidney disease with heart failure and stage 1 through stage 4 chronic kidney disease, or unspecified chronic kidney disease; Z68.41 Body mass index [BMI] 40.0-44.9, adult; N13.8 Other obstructive and reflux uropathy; N17.9 Acute kidney failure, unspecified; N18.4 Chronic kidney disease, stage 4 (severe); Z16.21 Resistance to vancomycin; I50.32 Chronic diastolic (congestive) heart failure; I48.20 Chronic atrial fibrillation, unspecified; I50.811 Acute right heart failure; E78.5 Hyperlipidemia, unspecified; K21.9 Gastro-esophageal reflux disease without esophagitis; Z79.01 Long term (current) use of anticoagulants; N40.0 Benign prostatic hyperplasia without lower urinary tract symptoms; I87.2 Venous insufficiency (chronic) (peripheral); R60.0 Localized edema; E11.22 Type 2 diabetes mellitus with diabetic chronic kidney disease; N40.1 Benign prostatic hyperplasia with lower urinary tract symptoms; D50.9 Iron deficiency anemia, unspecified; I27.20 Pulmonary hypertension, unspecified; D63.1 Anemia in chronic kidney disease; Z96.0 Presence of urogenital implants; R33.9 Retention of urine, unspecified; Z96.653 Presence of artificial knee joint, bilateral; B96.1 Klebsiella pneumoniae [K. pneumoniae] as the cause of diseases classified elsewhere; B96.89 Other specified bacterial agents as the cause of diseases classified elsewhere; S30.810A Abrasion of lower back and pelvis, initial encounter; X58.XXXA Exposure to other specified factors, initial encounter; E11.649 Type 2 diabetes mellitus with hypoglycemia without coma; L89.891 Pressure ulcer of other site, stage 1; E83.39 Other disorders of phosphorus metabolism; M10.9 Gout, unspecified; E87.6 Hypokalemia; M19.011 Primary osteoarthritis, right shoulder; M19.031 Primary osteoarthritis, right wrist; M11.231 Other chondrocalcinosis, right wrist; N21.0 Calculus in bladder; B95.2 Enterococcus as the cause of diseases classified elsewhere
CPT/HCPCS: 52000; 20606; 20610; 36410; 36415; 36430; 36569; 76770; 80048; 80053; 82668; 82805; 82947; 83935; 84145; 85027; 86850; 86900; 86901; 86920; 87040; 87077; 87635; 87637; 93005; 94640; 96365; 97110; 97112; 97116; 97162; 97166; 97530; 97535; 99222; 99223; 99231; 99285; 71045; 71046; 73030; 73110; 74420; 81003; 81015; 82565; 83540; 83550; 83605; 83735; 83880; 83930; 83970; 84100; 84132; 84133; 84300; 84484; 84550; 85014; 85018; 85025; 85045; 85610; 85730; 86140; 87086; 87186; 93010; 99232; 99233; 99239; J0690; J0881; J1030; J1040; J1170; J1644; J1756; J2250; J2704; J3480; J7512; J7620; P9016

== ENCOUNTER → 2023-04-04 09:43 | Outpatient (BNVA) | payer MEDICARE, SELFPAY | PROVIDERS: PCP Family Medicine; Referring Provider Family Medicine; Visit Provider Urology ==

== ENCOUNTER → 2023-04-08 15:43 | Outpatient (BNVA) | payer MEDICARE, SELFPAY | PROVIDERS: PCP Family Medicine; Referring Provider Family Medicine; Visit Provider Urology ==

== ENCOUNTER 2023-04-10 13:02 | Observation (INO) | payer MEDICARE, SELFPAY ==
[2023-04-10 13:01] VITALS: BP 93/52; PULSE 63; RESP 18; TEMP 36.1; O2SAT 99
--- NOTE | 2023-04-10 13:16 | W.ED.GENAD ---
Discharge Plan Discharge Details Chief Complaint: GenMedical Primary Care Provider: Gordo Dominguez ED Provider: Robert Davies Home Meds and New Rx's Prescriptions: No Action finasteride 5 mg tablet 5 mg PO DAILY Qty: 90 3RF (DME) pen needle, diabetic [Comfort EZ Pen [place]] 33 gauge x 3/16 needle See Rx Instructions .ROUTE .MEDSUPPLY Qty: 100 3RF Rx Instructions: inject once/day multivitamin [Daily Multiple] 1 EACH tablet 1 ea PO DAILY (DME) blood-glucose meter [Prylosuch Ultra2 Meter] 1 EACH kit 1 ea Miscellaneous DAILY Qty: 1 omeprazole 20 MG capsule,delayed release(DR/EC) 20 mg PO DAILY (DME) lancets [Paperless PostTouch UltraSoft Lancets] misc 1 ea Miscellaneous DAILY Qty: 90 4RF Rx Instructions: test daily before breakfast 5-hydroxytryptophan (5-HTP) [5-HTP] 100 mg capsule 100 mg PO DAILY melatonin 5 mg capsule 5 mg PO HS coenzyme Q10 [Co Q-10] 10 mg capsule 10 mg PO DAILY (DME) Prylosuch Ultra Test Strip 1 ea Miscellaneous DAILY Qty: 90 3RF Rx Instructions: test daily before breakfast potassium chloride [Klor-Con M10] 10 mEq tablet,ER particles/crystals 30 meq PO DAILY Qty: 270 0RF Rx Instructions: dose increase 08/30/22 tamsulosin 0.4 mg capsule 0.4 mg PO HS Qty: 90 3RF Jardiance 25 mg tablet 25 mg PO QAM Qty: 90 3RF Hold Instructions: Hold until renal function allows resumption; likely resume at 10mg daily lidocaine HCl [Glydo] 2 % jelly in applicator 10 ml intra-urethral ONCE Qty: 120 0RF Rx Instructions: as a single dose - one dose per catheter change. lactulose 10 gram packet 10 g PO DAILY PRN (Reason: constipation) Qty: 30 1RF (DME) FreeStyle [place] 2 [place] Misc See Rx Instructions .MEDSUPPLY Qty: 1 0RF Rx Instructions: As directed (DME) FreeStyle [place] 2 Sensor Kit See Rx Instructions .MEDSUPPLY Qty: 1 11RF Rx Instructions: As directed metoprolol succinate [Toprol XL] 100 mg tablet extended release 24 hr 100 mg PO DAILY Qty: 90 3RF pravastatin 40 mg tablet 40 mg PO QPM Qty: 90 3RF torsemide 20 mg tablet 40 mg PO DAILY Qty: 360 3RF acetaminophen [Tylenol] 325 mg Tablet 650 mg PO Q4H PRN PRNQty: 0 0RF docusate sodium [Colace] 100 mg capsule 100 mg PO DAILY metolazone 5 mg tablet 5 mg PO .q , Sat PRN (Reason: weight gain 3lbs/day or 7 lbs/week) insulin aspart U-100 [Novolog FlexPen U-100 Insulin] 100 unit/mL (3 mL) insulin pen 20 sliding scale dose SUBCUT DIRECTED Patient Comments: INJECT 30 UNITS SUBCUTANEOUSLY BEFORE MEALS Rx Instructions: -No rapid acting insulin with breakfast or lunch. -20 units + SSI 2:50>150 with dinner. insulin glargine [Lantus Solostar U-100 Insulin] 100 unit/mL (3 mL) insulin pen 39 unit SUBCUT HS Patient Comments: INJECT 40 UNITS SUBCUTANEOUSLY EVERY EVENING linezolid 600 mg tablet 600 mg PO BID Qty: 24 0RF polyethylene glycol 3350 17 gram Powder In Packet 17 g PO DAILY Qty: 0 0RF warfarin [Jantoven] 5 mg Tablet 5 mg PO QPM Qty: 0 0RF gabapentin 100 mg Capsule 200 mg PO HS Qty: 30 0RF Medical Decision Making Lab Data Lab results narrative: Labs show elevation of the BUN to creatinine ratio at the same level almost 10 yesterday but a bit worse. 04/10/23 13:40 04/10/23 13:40 Labs: Lab Results 04/10/23 04/10/23 Range/Units 13:40 13:40 WBC 9.20 (4.4-10.8) 10^3/uL RBC 3.79 L (4.36-5.78) 10^6/uL Hgb 10.0 L (13.5-17.5) g/dL Hct 33.3 L (40.0-50.0) % MCV 88 (80-95) fL MCH 26.4 L (27.0-33.0) pg MCHC 30.0 L (32.0-36.0) % RDW 18.6 H (11.8-14.1) % Plt Count 207 (130-400) 10^3/uL MPV 8.6 (8.0-11.0) fL Immature Gran % 0.9 Neutrophils % 72.6 Lymphocytes % 15.3 Monocytes % 8.9 Eosinophils % 2.1 Basophils % 0.2 Nucleated RBC % 0.0 (0.0-0.3) % Absolute Neutrophils 6.68 (1.2-6.7) 10^3/uL Absolute Lymphocytes 1.41 (1.2-3.4) 10^3/uL Absolute Monocytes 0.82 H (0.1-0.8) 10^3/uL Absolute Eosinophils 0.19 (0.0-0.7) 10^3/uL Absolute Basophils 0.02 (0.0-0.2) 10^3/uL Sodium 136 (136-145) mmol/L Potassium 5.8 H (3.5-5.1) mmol/L Chloride 102 (98-107) mmol/L Carbon Dioxide 24.4 (21.0-32.0) mmol/L Anion Gap 9.6 (3-11) mmol/L BUN 103 H* (7-18) mg/dL Creatinine 4.5 H* (0.70-1.30) mg/dL Est GFR (CKD-EPI 2020) 12.28 (mL/min/1.73m2) Glucose 138 H (74-106) mg/dL Calcium 10.4 H (8.5-10.1) mg/dL Total Bilirubin 0.6 (0.2-1.0) mg/dL AST 31 (15-37) U/L ALT 20 (16-63) U/L Alkaline Phosphatase 154 H (46-116) U/L Total Protein 8.6 H (6.4-8.2) g/dL Albumin 2.6 L (3.4-5.0) g/dL HPI General Date/Time Provider Initiated Documentation: 04/10/23 13:07. HPI Narrative: Patient presents emergency department complaining of being very dizzy who fell sustaining trauma to his left lower leg. Reports he is extremely weak. He was discharged yesterday afternoon from the hospital and was to go to a rehab facility but at the end they gave him a better way before he was medically cleared and trying to go home. States that at home his cannot take care of him and there are stairs and he fell reason she took the ambulance again and return to the emergency department. Related Data Home Medications Medication Instructions Recorded Confirmed multivitamin (Daily Multiple 1 ea PO DAILY 12/11/16 04/10/23 tablet) blood-glucose meter (OneTouch ##1 02/12/17 04/03/23 Ultra2 Meter kit) omeprazole 20 mg capsule,delayed 20 mg PO DAILY 04/15/18 04/10/23 release lancets (OneTouch UltraSoft #90 ea 11/06/18 04/03/23 Lancets) acetaminophen 325 mg tablet 650 mg PO Q4H PRN PRN #0 tabs 04/20/19 04/10/23 (Tylenol) docusate sodium 100 mg capsule 100 mg PO DAILY 10/27/21 04/10/23 (Colace) 5-hydroxytryptophan (5-HTP) 100 mg 100 mg PO DAILY 04/10/22 04/10/23 capsule (5-HTP) coenzyme Q10 10 mg capsule (Co 10 mg PO DAILY 04/10/22 04/10/23 Q-10) melatonin 5 mg capsule 5 mg PO HS 04/10/22 04/10/23 blood sugar diagnostic (OneTouch #90 strips 05/17/22 04/03/23 Ultra Test strips) potassium chloride 10 mEq 30 meq PO DAILY #270 tabs 08/30/22 04/10/23 tablet,extended release(part/cryst) (Klor-Con M) tamsulosin 0.4 mg capsule 0.4 mg PO HS #90 caps 08/31/22 04/10/23 empagliflozin 25 mg tablet 25 mg PO QAM #90 tabs 10/10/22 04/10/23 (Jardiance) lidocaine HCl 2 % mucosal jelly in 10 ml intra-urethral ONCE #120 mL 10/31/22 04/10/23 applicator (Glydo) lactulose 10 gram oral packet 10 g PO DAILY PRN constipation #30 11/05/22 04/10/23 ea finasteride 5 mg tablet 5 mg PO DAILY #90 tabs 12/11/22 04/10/23 pen needle, diabetic 33 gauge x #100 ea 12/11/22 04/03/23/16 (Comfort EZ Pen [place]) metolazone 5 mg tablet 5 mg PO .q Thurs, Mon PRN weight 12/31/22 04/10/23 gain 3lbs/day or 7 lbs/week flash glucose scanning reader #1 ea 01/07/23 04/03/23 (FreeStyle [place]ell 2 [place]) flash glucose sensor (FreeStyle #1 ea 01/07/23 04/03/23 Shantell 2 Sensor kit) metoprolol succinate 100 mg 100 mg PO DAILY #90 tabs 02/05/23 04/10/23 tablet,extended release 24 hr (Toprol XL) pravastatin 40 mg tablet 40 mg PO QPM #90 tabs 02/14/23 04/10/23 torsemide 20 mg tablet 40 mg PO DAILY #360 tabs 03/19/23 04/10/23 insulin aspart U-100 100 unit/mL 20 sliding scale dose subcut 03/27/23 04/10/23 (3 mL) subcutaneous pen (Novolog DIRECTED FlexPen U-100 Insulin aspart) insulin glargine 100 unit/mL (3 39 unit subcut HS 03/27/23 04/10/23 mL) subcutaneous pen (Lantus Solostar U-100 Insulin) linezolid 600 mg tablet 600 mg PO BID #24 tabs 04/07/23 04/10/23 gabapentin 100 mg capsule 200 mg PO HS #30 caps 04/09/23 04/10/23 polyethylene glycol 3350 17 gram 17 g PO DAILY #0 ea 04/09/23 04/10/23 oral powder packet warfarin 5 mg tablet (Jantoven) 5 mg PO QPM #0 tabs 04/09/23 04/10/23 Previous Rx's Medication Instructions Recorded lancets (OneTouch UltraSoft #90 ea 11/06/18 Lancets) acetaminophen 325 mg tablet 650 mg PO Q4H PRN PRN #0 tabs 04/20/19 (Tylenol) blood sugar diagnostic (OneTouch #90 strips 05/17/22 Ultra Test strips) potassium chloride 10 mEq 30 meq PO DAILY #270 tabs 08/30/22 tablet,extended release(part/cryst) (Klor-Con M) tamsulosin 0.4 mg capsule 0.4 mg PO HS #90 caps 08/31/22 empagliflozin 25 mg tablet 25 mg PO QAM #90 tabs 10/10/22 (Jardiance) lidocaine HCl 2 % mucosal jelly in 10 ml intra-urethral ONCE #120 mL 10/31/22 applicator (Glydo) lactulose 10 gram oral packet 10 g PO DAILY PRN constipation #30 11/05/22 ea finasteride 5 mg tablet 5 mg PO DAILY #90 tabs 12/11/22 pen needle, diabetic 33 gauge x #100 ea 12/11/22 3/16 (Comfort EZ Pen [place]) flash glucose scanning reader #1 ea 01/07/23 (FreeStyle [place] 2 [place]) flash glucose sensor (FreeStyle #1 ea 01/07/23 Shantell 2 Sensor kit) metoprolol succinate 100 mg 100 mg PO DAILY #90 tabs 02/05/23 tablet,extended release 24 hr (Toprol XL) pravastatin 40 mg tablet 40 mg PO QPM #90 tabs 02/14/23 torsemide 20 mg tablet 40 mg PO DAILY #360 tabs 03/19/23 linezolid 600 mg tablet 600 mg PO BID #24 tabs 04/07/23 gabapentin 100 mg capsule 200 mg PO HS #30 caps 04/09/23 polyethylene glycol 3350 17 gram 17 g PO DAILY #0 ea 04/09/23 oral powder packet warfarin 5 mg tablet (Jantoven) 5 mg PO QPM #0 tabs 04/09/23 Allergies Allergy/AdvReac Type Severity Reaction Status Date / Time No Known Allergies Allergy Verified 04/10/23 13:42 General Stated Complaint: GenMedical GISSEL: 3 Review of Systems All systems reviewed & are unremarkable except as noted in HPI and below Constitutional Constitutional: Reports difficulty sleeping, Reports fatigue, Reports frequent falls, Reports malaise, Reports poor appetite and Reports weakness Eyes Eyes: Reports as per HPI and Reports system reviewed and no additional complaints, except as documented ENT Ears, Nose, Mouth, and Throat: Reports system reviewed and no additional complaints, except as documented and Reports as per HPI Cardiovascular Cardiovascular: Reports as per HPI and Reports system reviewed and no additional complaints, except as documented Respiratory Respiratory: Reports as per HPI and Reports system reviewed and no additional complaints, except as documented Gastrointestinal Gastrointestinal: Reports as per HPI and Reports system reviewed and no additional complaints, except as documented Genitourinary Genitourinary: Reports system reviewed and no additional complaints, except as documented Musculoskeletal Musculoskeletal: Reports other (Abrasion skin tear on the left lower extremity) Neurologic Neurologic: Reports system reviewed and no additional complaints, except as documented, Reports as per HPI, Reports frequent falls and Reports weakness Psychiatric Psychiatric: Reports system reviewed and no additional complaints, except as documented Endocrine Endocrine: Reports fatigue PFSH All Active Problems Fall (Acute) Advance care planning (Acute) Skin tear of left lower leg without complication (Acute) Discharge planning issues (Acute) Hyperkalemia (Acute) VRE (vancomycin resistant enterococcus) culture positive (Acute) Hydronephrosis, left (Acute) Hyperphosphatemia (Acute) Do not resuscitate (Acute) Pressure ulcer of right ischium (Acute) Chronic indwelling Knox catheter (Acute) Acute renal failure (Acute) Acute UTI (Acute) Diabetes mellitus (Chronic) Atrial fibrillation (Chronic) on coumadin Chronic kidney disease (Chronic) 2020- borderline stage 4 Venous insufficiency (chronic) (peripheral) (Acute) Nail dystrophy (Acute) COVID-19 (Acute ~08/05/22) Thumb pain (Acute) Right heart failure (Acute) Urinary retention (Acute) 11/2021, ultrasound shows significant pretty and post void residual- minimal response to voiding Kidney stones (Chronic) Longstanding history of multiple stones 11/2021 ultrasound showed multiple stones in kidney, 1 stone possibly in right ureter Anemia (Chronic) Chronic mild anemia, associated with CKD Obstructive sleep apnea (Chronic) cpap Acute on chronic heart failure with preserved ejection fraction (Acute) Hives (Acute) Obesity (Acute 02/11/13) Obstructive nephropathy (Acute) Moderate pulmonary arterial systolic hypertension (Chronic) Chronic anticoagulation (Chronic) Polyp of colon (Chronic) Rosacea (Chronic) Constipation (Chronic) CHF (congestive heart failure) (Chronic) Medical History 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 Daughter No problems noted. Social History Smoking/Tobacco Use Status: Never Second Hand Exposure: No Smoking risk assessment performed?: Yes Alcohol Intake: current Alcohol Intake frequency: holidays/special occasions only Drug use: Never Substance use type: does not use Caregiver/Support person: Yes Household members: spouse Housing: house Communication Needs: Hard of Hearing Do you need help understanding health information?: Often Pets and animals: No Sexually active: No What is your relationship status?: How often do you talk on the phone with friends or family?: decline to answer How often do you get together with friends or relatives?: decline to answer How often do you attend christian or jain services?: decline to answer Do you belong to any clubs or organized social groups?: decline to answer Panel score (0-1 are the most socially isolated patients): 1 What type of physical activity do you participate in: walking Duration: < 15 minutes/day Frequency: daily Special amor needs: No Do you feel safe at home: Yes Do you feel safe in your relationship?: Yes Exam Narrative Exam Narrative: Exam; vitals signs as reported above Constitutional; In no acute distress, afebrile General: cooperative, healthy appearing, comfortable and no acute distress HEENT:: Head: normal to inspection, no palpable skull fracture and normocephalic Eyes: l: appearance normal, both eyes and all related structures Pupils: PERRL EOM: EOM intact bilaterally Direct ophthalmoscopy: normal light reflex, normal conjunctiva, normal visual acuity Neck no JVD, supple Neck: normal visual inspection, full ROM and no lymphadenopathy Chest Chest: normal inspection of the chest Respiratory : normal respiratory effort and able to speak in complete sentences Cardio Rate: regular rate Rhythm: regular rhythm normal heart sounds S1 and S2 no murmurs, gallops, or rubs GI Inspection: normal to inspection, normal bowel sounds, soft, non tender, non distended, no organomegally Back/Spine/ no CVA tenderness Thoracic/Lumbar Spine: no tenderness or deformities Skin/4 cm skin abrasion on the left lower extremity distal third Neuro: patient alert and no meningeal signs, Cranial Nerves: CN's II-XI intact bilaterally, Cognition: normal cognition, Speech: speech normal, Gait: normal gait, Depp tendon reflexes normal 2+ Extremities, no edema, full range of motion, decreased strength in lower extremities bilateral Course Vital Signs Vital signs: Vital Signs Temperature 36.1 C L 04/10/23 13:01 Pulse 63 04/10/23 13:01 Respiratory Rate 18 04/10/23 13:01 Blood Pressure 93/52 L 04/10/23 13:01 Pulse Oximetry 99 04/10/23 13:01 Temperature 36.1 C L 04/10/23 13:01 Temperature Source Oral 04/10/23 13:01 Pulse 63 04/10/23 13:01 Respiratory Rate 18 04/10/23 13:01 Blood Pressure 93/52 L 04/10/23 13:01 Blood Pressure Position Supine 04/10/23 13:01 Pulse Oximetry 99 04/10/23 13:01 Oxygen Delivery Method Room Air 04/10/23 13:01 Oxygen Flow Rate 0 04/10/23 13:01
[2023-04-10 13:45] LABS: Abs Immature Grans 0.08 10^3/uL (0.0-0.06); Absolute Basophil Count 0.02 10^3/uL (0.0-0.2); Absolute Eosinophil Count 0.19 10^3/uL (0.0-0.7); Absolute Lymphocyte Count 1.41 10^3/uL (1.2-3.4); Absolute Monocyte Count 0.82 10^3/uL (0.1-0.8); Absolute Neutrophil Count 6.68 10^3/uL (1.2-6.7); Basophils % 0.2; Eosinophils % 2.1; HCT 33.3 % (40.0-50.0); Immature Grans % 0.9; Lymphocytes % 15.3; MCH 26.4 pg (27.0-33.0); MCV 88 fL (80-95); MPV 8.6 fL (8.0-11.0); Monocytes % 8.9; Neutrophils % 72.6; Platelet Count 207 10^3/uL (130-400); RBC 3.79 10^6/uL (4.36-5.78); RDW 18.6 % (11.8-14.1); RDW-SD 57.5 fL
[2023-04-10 14:14] LABS: ALT 20 U/L (16-63); AST 31 U/L (15-37); Albumin 2.6 g/dL (3.4-5.0); Alkaline Phosphatase 154 U/L (46-116); Anion Gap 9.6 mmol/L (3-11); Bilirubin, Total 0.6 mg/dL (0.2-1.0); CO2 24.4 mmol/L (21.0-32.0); Calcium 10.4 mg/dL (8.5-10.1); Chloride 102 mmol/L (98-107); Estimated GFR 12.28 (mL/min/1.73m2); Glucose 138 mg/dL (74-106); Potassium 5.8 mmol/L (3.5-5.1); Sodium 136 mmol/L (136-145); Total Protein 8.6 g/dL (6.4-8.2)
[2023-04-10 14:16] LABS: BUN 103 mg/dL (7-18)
[2023-04-10 14:17] LABS: CREATININE 4.5 mg/dL (0.70-1.30)
[2023-04-10 14:22] VITALS: BP 129/80; PULSE 85; RESP 16; O2SAT 98
--- NOTE | 2023-04-10 14:37 | NUR.NOTE ---
Nursing Note: PT c/o 04/27 pain in the left nicolas. provider made aware.
--- NOTE | 2023-04-10 14:38 | W.PALLCONSUL ---
Date of service: 04/10/23 Time of Service: 13:50 History of Present Illness Narrative: Mr. Ang is an 82 y/o M currently in ED 2/2 fall at home s/p discharge from [facility] r/t UTI, acute resp failure and anemia, w/VRE noted s/p peripheral nephrostomy tube placement; PMH sig for CKD, CHF w/a fid, DM, HTN, HLD, BPH, GERD, obesity; Sav was discharged home from [facility] after an inpatient stay from 03/21 to 04/09, upon arrival at home he fell on second stair getting into home, hitting his LLE nicolas w/resulting skin tear inability to bear weight d/t pain, lift assist provided from EMS; returned to ED w/concern of infection and nonweight bearing status; he had previously agreed to returning home due to no local long-term facilities available. Sav was alone in the emergency room when palliative met today, sharing not present in emergency room. Sav is agreeable to considering additional SNF referrals, is agreeable to going to [facility] or [place], he also has some money available to pay caregivers, he does not feel he needs 10/06, but does admit that he is not safe to return home without this assistance Pain in nicolas flares up to 5 or 6 out of 10, down to 0 when not painful, unsure what makes it better or worse, does not feel comfortable bearing weight at this time; has already requested pain medication Plan with urology to follow-up in [facility], he hopes to have more time with kidneys he is aware that renal status was improving s/p nephrostomy, aware of CKD and nature of disease progression, would like to hold off on further discussion reviewing CKD progression, dialysis vs hospice and move forward to SNF placement at this time RUE shoulder pain resolved s/p injection from Dr. Harris Sav expresses concerns that antibiotic linezolid not available at local pharmacies, review of chart shows that CCC from PCP office has confirmed that it will be available today and local pharmacy; Sav reports that is available at [facility] Assessment and Plan Assessment and plan (1) VRE (vancomycin resistant enterococcus) culture positive: Status: Acute Assessment and plan: Linezolid BID x14 days Rx'd, available in local pharmacy today, per review of CCC note consider dose in ED to avoid missing 3rd dose (2) Hydronephrosis, left: Status: Acute Assessment and plan: s/p peripheral nephrostomy placement f/b [facility] urology, Dr. Pulliam, to f/u outpatient consider local urology assistance as needed (3) Do not resuscitate: Status: Acute Assessment and plan: confirmed today (4) Chronic kidney disease: Status: Chronic Assessment and plan: Briefly reviewed disease progression, stage IV status, next stage would be stage V, briefly reviewed dialysis (5) Venous insufficiency (chronic) (peripheral): Status: Acute Assessment and plan: Likely impact wound healing (6) Kidney stones: Status: Chronic Assessment and plan: Ongoing and chronic followed by [facility] (7) Palliative care patient: Assessment and plan: PC to continue to follow, plan for outpatient follow-up (8) Discharge planning issues: Status: Acute Assessment and plan: Currently no beds available at [facility] inpatient, consider transfer if needed Recommend referral start long-term facilities (9) Skin tear of left lower leg without complication: Status: Acute (10) Advance care planning: Status: Acute Assessment and plan: Despite previous statements of not wanting to return to hospital, Sav is comfortable being here at this time, would be comfortable with transfer, wishes to continue ongoing follow-up with urology at [facility] prior to determining next steps with renal function Reviewed home health caregiving versus long-term facility, CKD progression, brief review of hospice Recommend referrals to long-term facilities sent, already has qualifying stay for ongoing rehab Continue to review hospice, dialysis, care preferences and goals of care (11) Fall: Status: Acute Assessment and plan: Recommend long-term facility Review of Systems Narrative: as per HPI PFSH All Active Problems (Updated 04/10/23 @ 14:52 by Kathy Reeder NP) Fall (Acute) Advance care planning (Acute) Skin tear of left lower leg without complication (Acute) Discharge planning issues (Acute) Hyperkalemia (Acute) VRE (vancomycin resistant enterococcus) culture positive (Acute) Hydronephrosis, left (Acute) Hyperphosphatemia (Acute) Do not resuscitate (Acute) Pressure ulcer of right ischium (Acute) Chronic indwelling Knox catheter (Acute) Acute renal failure (Acute) Acute UTI (Acute) Diabetes mellitus (Chronic) Atrial fibrillation (Chronic) on coumadin Chronic kidney disease (Chronic) 2020- borderline stage 4 Venous insufficiency (chronic) (peripheral) (Acute) Nail dystrophy (Acute) COVID-19 (Acute ~08/05/22) Thumb pain (Acute) Right heart failure (Acute) Urinary retention (Acute) 11/2021, ultrasound shows significant pretty and post void residual- minimal response to voiding Kidney stones (Chronic) Longstanding history of multiple stones 11/2021 ultrasound showed multiple stones in kidney, 1 stone possibly in right ureter Anemia (Chronic) Chronic mild anemia, associated with CKD Obstructive sleep apnea (Chronic) cpap Acute on chronic heart failure with preserved ejection fraction (Acute) Hives (Acute) Obesity (Acute 02/11/13) Obstructive nephropathy (Acute) Moderate pulmonary arterial systolic hypertension (Chronic) Chronic anticoagulation (Chronic) Polyp of colon (Chronic) Rosacea (Chronic) Constipation (Chronic) CHF (congestive heart failure) (Chronic) Medical History 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 Daughter No problems noted. Social History Smoking/Tobacco Use Status: Never Second Hand Exposure: No Smoking risk assessment performed?: Yes Alcohol Intake: current Alcohol Intake frequency: holidays/special occasions only Drug use: Never Substance use type: does not use Caregiver/Support person: Yes Household members: spouse Housing: house Communication Needs: Hard of Hearing Do you need help understanding health information?: Often Pets and animals: No Sexually active: No What is your relationship status?: How often do you talk on the phone with friends or family?: decline to answer How often do you get together with friends or relatives?: decline to answer How often do you attend holiness or mandaen services?: decline to answer Do you belong to any clubs or organized social groups?: decline to answer Panel score (0-1 are the most socially isolated patients): 1 What type of physical activity do you participate in: walking Duration: < 15 minutes/day Frequency: daily Special amor needs: No Do you feel safe at home: Yes Do you feel safe in your relationship?: Yes Exam Narrative Exam Narrative: General: older obese male, lying in ED hospital bed; NAD; intermittent grimace/groan/guarding, occurs 5x in 25 min visit lasting 1-2 seconds HEENT: normocephalic, atraumatic, hearing WNL Resp: speaks full sentences w/SOB w/prolonged speech, prolonged expiratory phase, no audible wheezes or cough Skin: LLE skin tear w/erythema over anterior aspect of nicolas Psych: cooperative, MS clear, speech clear, thought process/content normal; insight/judgment fair Results Last Vital Signs Temp 96.9 F L 04/10/23 13:01 Pulse 85 04/10/23 14:22 Resp 16 04/10/23 14:22 BP 129/80 04/10/23 14:22 Pulse Ox 98 04/10/23 14:22 Labs 04/10/23 13:40 04/10/23 13:40 Labs: Laboratory Results - last 24 hr 04/10/23 04/10/23 13:40 13:40 WBC 9.20 RBC 3.79 L Hgb 10.0 L Hct 33.3 L MCV 88 MCH 26.4 L MCHC 30.0 L RDW 18.6 H Plt Count 207 MPV 8.6 Immature Gran % 0.9 Neutrophils % 72.6 Lymphocytes % 15.3 Monocytes % 8.9 Eosinophils % 2.1 Basophils % 0.2 Nucleated RBC % 0.0 Absolute Neutrophils 6.68 Absolute Lymphocytes 1.41 Absolute Monocytes 0.82 H Absolute Eosinophils 0.19 Absolute Basophils 0.02 Sodium 136 Potassium 5.8 H Chloride 102 Carbon Dioxide 24.4 Anion Gap 9.6 BUN 103 H* Creatinine 4.5 H* Est GFR (CKD-EPI 2020) 12.28 Glucose 138 H Calcium 10.4 H Total Bilirubin 0.6 AST 31 ALT 20 Alkaline Phosphatase 154 H Total Protein 8.6 H Albumin 2.6 L
--- NOTE | 2023-04-10 15:00 | RT.EKG_ITS ---
APPROVED REPORT Exam: Resting ECG Reason for Exam: weakness Patient Location: E HR:61 bpm ECG Measurements Heart Rate 61 AXIS TX 154 P 0 QRSd 102 QRS 11 QT 407 T 22 QTc 441 Conclusion Sinus rhythm...normal P axis, V-rate 60- 99 Sinus pause...long R-R interval, normal QRSd Low voltage, precordial leads...precordial leads <1.0mV Rate controlled atrial fibrillation at a rate of 61 with interventricular conduction delay and a QRS of [address] segment abnormalities. QTc within normal limits. Low voltage. Appears similar to prior dated earlier this month.
--- NOTE | 2023-04-10 15:20 | W.EDPROG ---
Date of service: 04/10/23 Time of Service: 15:21 Medical Decision Making I received signout on this 82-year-old male with CKD who was discharged yesterday from the hospitalist service. He has a number of comorbidities including VRE for which he is on outpatient linezolid. He fell and felt weak and is currently pending palliative care evaluation. Either he will require repeat hospitalization versus placement. I ordered the patient's linezolid and his acetaminophen for pain. We will update documentation as clinically warranted. 4:10 PM I spoke with Alma Rosa from care management who reported that unfortunately it was very unlikely that the patient would be able to be placed today. I will speak with the hospitalist, Dr. Adames to request hospitalization. 4:20 PM I spoke with who graciously accepted the patient for hospitalization. 4:25 PM I spoke again with who requested a physical therapy evaluation which I ordered. I met with the patient and explained plan of care. Left lower extremity skin tear for which I ordered plain film. I also updated his tetanus as this had not been updated since 2016. 5:30 PM I spoke with physical therapy who advised SNF placement. We will touch base with Alma Rosa. 612 p.m. Alma Rosa reported that the patient would not be able to be placed from the ED. I spoke again with who I accepted the patient for hospitalization. We will hold the patient in the ED pending x-ray. 8:30 PM Plain films negative for any acute osseous abnormalities of the patient's left tib-fib. Discharge Plan Discharge Details Chief Complaint: GenMedical Clinical Impression: History of fall, Noninfected skin tear of left lower extremity Admit Date/Time: 04/10/23 18:52 Admit Provider: Mor Aadmes Attending Provider: Mor Adames Primary Care Provider: Gordo Dominguez ED Provider: Sav Davalos
[2023-04-10] MEDS: Acetaminophen 500 MG TAB 1000 MG PO (15:28)
[2023-04-10] MEDS: Linezolid 600 MG TAB PO ×2 (15:28→23:23)
[2023-04-10 15:39] LABS: Prothrombin Time 22.7 sec (9.3-11.0)
[2023-04-10 15:42] LABS: INR 2.2 (0.9-1.1)
[2023-04-10 16:17] LABS: Bilirubin Negative (Negative); Clarity Cloudy (Clear); Glucose 100 mg/dL (Negative); Ketones Negative (Negative); Leukocyte Esterase Large (Negative); Nitrite Negative (Negative); Urobilinogen 0.2 mg/dL (Up to 0.2)
[2023-04-10 16:18] LABS: Blood Large (Negative)
[2023-04-10 16:19] LABS: Bacteria Moderate HPF (Negative); C & S Indicated? Yes; Casts Negative LPF (Negative); Crystals Negative HPF (Negative); Epithelial Cells Rare HPF (Negative); Mucus Negative (Negative); WBC >50 HPF (0-5)
--- NOTE | 2023-04-10 16:30 | DI.RAD_ITS ---
Exam(s) XR TIB/FIB LT EXAM: XR TIB/FIB LT CLINICAL HISTORY: Left lower extremity skin tear. TECHNIQUE: 2D digital imaging was performed of the left tibia and fibula. Four images were obtained. AP and lateral views were obtained. COMPARISON: CR XR knee LT 2V AP,lat from 08/08/2016 FINDINGS: BONES: No acute fracture is present. No bony destructive lesion is seen. There is a total knee replac ement partially visualized. SOFT TISSUE: Atherosclerosis. No radiopaque foreign bodies are seen in the soft tissues. IMPRESSION: No acute abnormality. DATA REPOSITORY: RADIATION DOSE DELIVERED:
--- NOTE | 2023-04-10 16:46 | PDOC.CMPRO ---
Date of service: 04/10/23 Time of Service: 16:46 Care Management Progress Note Progress Note Text Progress Note Text: Sav presents in the ED via EMS. He was discharged home from [facility] yesterday after being inpatient for several days. He reportedly fell at home last evening and injured his nicolas. He returns to the hospital today in hopes of going to rehab to regain some strength. CM meets with Sav and his , Lashawn, to discuss rehab options. At their request, referrals are faxed to [facility] ([place]), [facility] ([place]), and [facility]. CM also telephones [facility] ([place]) and [facility] ([place]) for bed availability. Neither facility has any male beds available at this time but both anticipate male bed discharges next week. CM will continue to follow.
--- NOTE | 2023-04-10 17:42 | IN_ITS ---
Date of service: 04/10/23 Time of Service: 16:58 PT Notes Visit Reasons: [facility] Emergency Department Physical Therapy Initial Evaluation Date: 04/11/2023 Referring Doctor:? Sav Davalos? PT Orders: PT CONSULT: Eval/Treat Precautions: Fall. Standard.? Activity as tolerated.? Fearful of falling. Patient Profile/Admitting Diagnosis:? Returns to the ED today due to a loss of balance that caused and another caregiver to slowly lower patient onto the floor at home last night. Patient was discharged from this hospital yesterday morning. S/P nephrostomy tube placement on 04/05/23 from a down and back surgery at [facility].? Patient is a 82-year-old male who presented to the ED on 03/21/2023 due to 5 days worth of shortness of breath and is admitted admitted for the management of atrial fibrillation, chronic kidney disease, right-sided heart failure, anemia, moderate pulmonary arterial systolic hypertension, obstructive neuropathy, hyperlipidemia, type II DM, and LUCAS. PMHX: All Active Problems? Fever (Acute) Chronic indwelling Knox catheter (Acute) Symptomatic anemia (Acute) Acute renal failure (Acute) Acute UTI (Acute) Diabetes mellitus (Chronic) Atrial fibrillation (Chronic) on coumadin Chronic kidney disease (Chronic) 2020- borderline stage 4 Venous insufficiency (chronic) (peripheral) (Acute) Nail dystrophy (Acute) COVID-19 (Acute ~08/05/22) Thumb pain (Acute) Right heart failure (Acute) Urinary retention (Acute) 11/2021, ultrasound shows significant pretty and post void residual- minimal response to voiding Kidney stones (Chronic) Longstanding history of multiple stones 11/2021 ultrasound showed multiple stones in kidney, 1 stone possibly in right ureter Anemia (Chronic) Chronic mild anemia, associated with CKD Obstructive sleep apnea (Chronic) cpapAcute on chronic heart failure with preserved ejection fraction (Acute) Hives (Acute) Obesity (Acute 02/11/13) Obstructive nephropathy (Acute) Moderate pulmonary arterial systolic hypertension (Chronic) Chronic anticoagulation (Chronic) Polyp of colon (Chronic) Rosacea (Chronic) Constipation (Chronic) CHF (congestive heart failure) (Chronic) Medical History? Atrial fibrillation BPH (benign prostatic hyperplasia) Diabetes mellitus type 2 in obese Essential hypertension, benign GERD (gastroesophageal reflux disease) Hyperlipidemia Nephrolithiasis Obesity hypoventilation syndrome LUCAS on CPAP Palliative care patient Surgical History? Cholecystectomy (~1985) Colonoscopy - MAC (~2002) Replacement of total knee joint B/L Tonsillectomy and adenoidectomy Social History/Home Situation: Patient lives with Lashawn in a 1 floor house in [facility] with 2 steps to enter, no rails.?? 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 They have one supportive daughter who lives locally.? states that she uses a device that she holds up to him so that he can pull on it to sit up in bed.? Equipment Owned/DME: Bed that has changeable angles at the head and the knee but is not able to move up nor down Motorized wheelchair FWW SPC Subjective:? Reports pain in the L nicolas, initially very leary about being able to get up but when he neede to use the commode was agreeable with standing up to transfer using the FWW and assist of 2 people. Objective:? General Observation: Supine in stretcher. Contusions noted in L elbow. Abrasions seen in L nicolas. Nephrostomoy tube on L side. Knox catheter in place. Mental Status: Alert and oriented as to person, place, and time Pain: Moderate pain noted in the L nicolas and L knee that are aggravated with movement and weight bearing ROM: Right Lower Extremity: Hip flexion up to 60 degrees. Hip abduction WFL. Knee flexion 0-90. Ankle dorsiflexion WFL. Ankle plantarflexion WFL. Left Lower Extremity: Hip flexion about 30 degrees. Hip abduction 10 degrees. Knee flexion 15-20 degrees. Ankle dorsiflexion WFL. Ankle plantarflexion WFL. Strength: Right Lower Extremity: Hip flexors 3-/5. Hip abductors 4/5. Knee flexors 3-/5. Knee extensors 4-/5. Ankle dorsiflexors 4-/5. Ankle plantarflexors 4-/5. Left Lower Extremity:Hip flexors 2-/5. Hip abductors 3-/5. Knee flexors 3-/5. Knee extensors 4-/5. Ankle dorsiflexors 4-/5. Ankle plantarflexors 4-/5. BED MOBILITY/TRANSFERS: [employer] Susan assisting for safety? Supine-sit: mod assist?of 2? Sit-stand: mod assist?of 2? Stand-sit: mod assist?of 2? Bed-commode: standby assist ? GAIT? Assistive Device: front-wheeled walker? Weight bearing: full Assist: contact guard ? Distance:? small side step to the R [facility], has a tendency to panic and sit down mid transfer, needs much encouragement to safely complete task ? Balance:? Static Sitting: Good Dynamic Sitting: Fair Static Standing: Poor Dynamic Standing: Poor Informed Consent/Education:? Patient instructed in purpose of PT consult. Patient and agreeable to SNF placement anywhere once a bed becomes available. Assessment:? Patient has fearfulness of falling and has a tendency to get so anxious about transferring and walking, needs maximal encouragement to safely complete mobility performance. Able to bear weight through R LE during transfers. Now requires moderate assist of 2 for just transfers. Takes time to trust caregivers before he gets confident about moving about. S/P nephrostomy tube placement on 04/05/23 from a down and back surgery at [facility].? Patient is a 82-year-old male recently admitted for management of atrial fibrillation, chronic kidney disease, right-sided heart failure, anemia, moderate pulmonary arterial systolic hypertension, obstructive neuropathy, hyperlipidemia, type II DM, and LUCAS. He requires services and is appropriate for transition to SNF for continued rehabilitation once acceptance for placement is made. Goals: N/A. PT evaluation only. DISCHARGE RECOMMENDATIONS: N/A. PT evaluation only. TREATMENT CODE/TIME: 46838 x 34 minutes beginning at 16:58 PM. Thank you for the opportunity to participate in the care of this patient. Madhavi Victoria PT, DPT, CLT [facility] [place], [place]
--- NOTE | 2023-04-10 18:44 | DI.VRAD_ITS ---
PROCEDURE INFORMATION: Exam: XR Left Tibia and Fibula Exam date and time: 04/10/2023 6:15 PM Age: 82 years old Clinical indication: Other: Lt lower extremity skin tear TECHNIQUE: Imaging protocol: Radiologic exam of the left tibia and fibula. Views: 2 views. COMPARISON: US LOWER EXTREMITY VENOUS LT 04/08/2020 6:50 PM FINDINGS: Bones/joints: Total knee replacement partially visualized. No acute fracture or dislocation. Minimal spurring at the calcaneal plantar aspect. Degenerative changes at the ankle joint Soft tissues: Vascular calcifications IMPRESSION: No acute findings. Dictated and Authenticated by: Franc Pisano MD. Ordering:LANIE Ang MD
--- NOTE | 2023-04-10 19:45 | NUR.NOTE ---
Nursing Note: cover sheet faxed to [facility]
[2023-04-10 20:15] VITALS: BP 96/58; PULSE 61; RESP 20; TEMP 36.4; O2SAT 98
[2023-04-10 20:57] VITALS: BP 96/58; PULSE 61; RESP 20; TEMP 36.4; O2SAT 98
[2023-04-10 21:18] VITALS: RESP 20
--- NOTE | 2023-04-10 22:54 | W.PM.HP.N ---
Date of service: 04/10/23 Time of Service: 22:54 Assessment and Plan Assessment and plan (1) Noninfected skin tear of left lower extremity: Status: Acute Assessment and plan: Secondary to mechanical fall. Cleanse and cover. No evidence of current infection. (2) VRE (vancomycin resistant enterococcus) culture positive: Status: Acute Assessment and plan: Cont Linezolid Precautions (3) Hydronephrosis, left: Status: Acute Assessment and plan: Etiology unclear. No obstructing stone. S/P percut. nephrostomy tube placement. Dr Santos arranging f/u at [facility] [place] [facility]. (4) Atrial fibrillation: Status: Chronic Assessment and plan: Cont warfarin. During previous hospitalization, given KCentra and Vit K to reverse coumadin effect prior to nephrostomy tube placement. Now on 5mg warfarin daily and INR 2.2. Monitor and adjust warfarin to his previous dosing regimen. (5) Chronic kidney disease: Status: Chronic Assessment and plan: Baseline previously in the 3's. D/T obstructive nephropathy and diureses his creatinine increased to 6.2. After nephrostomy tube his creatinine improved to 3.8. Now 4.5 He is on torsemide 40mg daily and metolazone 5 mg Mon and Th prn. He did have a very significant volume overload at last admission and diuresed a large volume. Will possibly need to hold his torsemide and/or lower the dose. This would have to be done cautiously to not result in volume overload again. (6) Diabetes mellitus type 2 in obese: Assessment and plan: Basal/bolus insulin. Monitor. (7) Fall: Status: Acute Assessment and plan: Mechanical. PT consulted. (8) Hyperphosphatemia: Status: Acute Assessment and plan: Cont PhosLo with meals. (9) Chronic indwelling Knox catheter: Status: Acute Assessment and plan: Urology managing. (10) Pressure ulcer of right ischium: Status: Acute Assessment and plan: Present on previous admission. Dressing changes as per wound cares previous recommendations. (11) Essential hypertension, benign: Assessment and plan: Cont metoprolol, diuretics. Monitor. (12) Hyperlipidemia: Assessment and plan: Cont pravastatin. (13) LUCAS on CPAP: Assessment and plan: Home CPAP (14) Discharge planning issues: Status: Acute Assessment and plan: PT to evaluate. May need SNF. History of Present Illness History of Present Illness Chief Complaint: Fall with abrasion to left leg Narrative: Mr Winkler is an 82 yo male with a PMH of obstructive uropathy (s/o percutaneous nephrostomy tube placement on 04/05/23), afib on warfarin, DM2 insulin requiring, VRE UTI on linezolid, KENNETH on CKD, right heart failure, Moderate pulmonary hypertension, HLD. He was discharged from [facility] the day before this admission after being hospitalized since 03/22/23. After his nephrostomy tube place his urine grew VRE organism enterococcus faecium. He had been treated earlier in that admission for Klebsiella UTI. He worked with PT and on the day of discharge was evaluated for safety on stairs and he did well. He endorses not lifting his foot away from the stair riser and catching it on the stair. This caused him to fall and scrape the left nicolas. He denied striking head. No presyncope or syncope. No CP or palpitations. He then presented on day of this admission d/t unsafe ambulation d/t left leg discomfort. In the ED there was no fracture noted. His lab showed a Hgb of 10. K of 5.8. INR 2.2. BUN 103. Creatinine 4.5. Attempts were made to find a SNF that would accept him for admission from the ED but this was not successful. Admitted for observation. Review of Systems All systems reviewed & are unremarkable except as noted in HPI and below PFSH All Active Problems History of fall (Acute) Noninfected skin tear of left lower extremity (Acute) Fall (Acute) Advance care planning (Acute) Skin tear of left lower leg without complication (Acute) Discharge planning issues (Acute) Hyperkalemia (Acute) VRE (vancomycin resistant enterococcus) culture positive (Acute) Hydronephrosis, left (Acute) Hyperphosphatemia (Acute) Do not resuscitate (Acute) Pressure ulcer of right ischium (Acute) Chronic indwelling Knox catheter (Acute) Acute renal failure (Acute) Acute UTI (Acute) Diabetes mellitus (Chronic) Atrial fibrillation (Chronic) on coumadin Chronic kidney disease (Chronic) 2020- borderline stage 4 Venous insufficiency (chronic) (peripheral) (Acute) Nail dystrophy (Acute) COVID-19 (Acute ~08/05/22) Thumb pain (Acute) Right heart failure (Acute) Urinary retention (Acute) 11/2021, ultrasound shows significant pretty and post void residual- minimal response to voiding Kidney stones (Chronic) Longstanding history of multiple stones 11/2021 ultrasound showed multiple stones in kidney, 1 stone possibly in right ureter Anemia (Chronic) Chronic mild anemia, associated with CKD Obstructive sleep apnea (Chronic) cpap Acute on chronic heart failure with preserved ejection fraction (Acute) Hives (Acute) Obesity (Acute 02/11/13) Obstructive nephropathy (Acute) Moderate pulmonary arterial systolic hypertension (Chronic) Chronic anticoagulation (Chronic) Polyp of colon (Chronic) Rosacea (Chronic) Constipation (Chronic) CHF (congestive heart failure) (Chronic) Medical History 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 Daughter No problems noted. Social History Smoking/Tobacco Use Status: Never Second Hand Exposure: No Smoking risk assessment performed?: Yes Alcohol Intake: current Alcohol Intake frequency: holidays/special occasions only Drug use: Never Substance use type: does not use Caregiver/Support person: Yes Household members: spouse Housing: house Communication Needs: Hard of Hearing Do you need help understanding health information?: Often Pets and animals: No Sexually active: No What is your relationship status?: How often do you talk on the phone with friends or family?: decline to answer How often do you get together with friends or relatives?: decline to answer How often do you attend holiness or uatsdin services?: decline to answer Do you belong to any clubs or organized social groups?: decline to answer Panel score (0-1 are the most socially isolated patients): 1 What type of physical activity do you participate in: walking Duration: < 15 minutes/day Frequency: daily Special amor needs: No Do you feel safe at home: Yes Do you feel safe in your relationship?: Yes Meds Allergies and Home Medications Allergies Allergy/AdvReac Type Severity Reaction Status Date / Time No Known Allergies Allergy Verified 04/10/23 13:42 Home Medications Medication Instructions Recorded Confirmed Type multivitamin (Daily Multiple 1 ea PO DAILY 12/11/16 04/10/23 History tablet) blood-glucose meter (OneTouch ##1 02/12/17 04/03/23 History Ultra2 Meter kit) omeprazole 20 mg capsule,delayed 20 mg PO DAILY 04/15/18 04/10/23 History release lancets (115 network disksTouch UltraSoft #90 ea 11/06/18 04/03/23 Rx Lancets) acetaminophen 325 mg tablet 650 mg PO Q4H PRN PRN #0 tabs 04/20/19 04/10/23 Rx (Tylenol) docusate sodium 100 mg capsule 100 mg PO DAILY 10/27/21 04/10/23 History (Colace) 5-hydroxytryptophan (5-HTP) 100 mg 100 mg PO DAILY 04/10/22 04/10/23 History capsule (5-HTP) coenzyme Q10 10 mg capsule (Co 10 mg PO DAILY 04/10/22 04/10/23 History Q-10) melatonin 5 mg capsule 5 mg PO HS 04/10/22 04/10/23 History blood sugar diagnostic (OneTouch #90 strips 05/17/22 04/03/23 Rx Ultra Test strips) potassium chloride 10 mEq 30 meq PO DAILY #270 tabs 08/30/22 04/10/23 Rx tablet,extended release(part/cryst) (Klor-Con M) tamsulosin 0.4 mg capsule 0.4 mg PO HS #90 caps 08/31/22 04/10/23 Rx empagliflozin 25 mg tablet 25 mg PO QAM #90 tabs 10/10/22 04/10/23 Rx (Jardiance) lidocaine HCl 2 % mucosal jelly in 10 ml intra-urethral ONCE #120 mL 10/31/22 04/10/23 Rx applicator (Glydo) lactulose 10 gram oral packet 10 g PO DAILY PRN constipation #30 11/05/22 04/10/23 Rx ea finasteride 5 mg tablet 5 mg PO DAILY #90 tabs 12/11/22 04/10/23 Rx pen needle, diabetic 33 gauge x #100 ea 12/11/22 04/03/23 Rx 3/16 (Comfort EZ Pen [place]) metolazone 5 mg tablet 5 mg PO .q Thurs, Mon PRN weight 12/31/22 04/10/23 History gain 3lbs/day or 7 lbs/week flash glucose scanning reader #1 ea 01/07/23 04/03/23 Rx (FreeStyle [place] 2 [place]) flash glucose sensor (FreeStyle #1 ea 01/07/23 04/03/23 Rx Sahntell 2 Sensor kit) metoprolol succinate 100 mg 100 mg PO DAILY #90 tabs 02/05/23 04/10/23 Rx tablet,extended release 24 hr (Toprol XL) pravastatin 40 mg tablet 40 mg PO QPM #90 tabs 02/14/23 04/10/23 Rx torsemide 20 mg tablet 40 mg PO DAILY #360 tabs 03/19/23 04/10/23 Rx insulin aspart U-100 100 unit/mL 20 sliding scale dose subcut 03/27/23 04/10/23 History (3 mL) subcutaneous pen (Novolog DIRECTED FlexPen U-100 Insulin aspart) insulin glargine 100 unit/mL (3 39 unit subcut HS 03/27/23 04/10/23 History mL) subcutaneous pen (Lantus Solostar U-100 Insulin) linezolid 600 mg tablet 600 mg PO BID #24 tabs 04/07/23 04/10/23 Rx gabapentin 100 mg capsule 200 mg PO HS #30 caps 04/09/23 04/10/23 Rx polyethylene glycol 3350 17 gram 17 g PO DAILY #0 ea 04/09/23 04/10/23 Rx oral powder packet warfarin 5 mg tablet (Jantoven) 5 mg PO QPM #0 tabs 04/09/23 04/10/23 Rx Exam Narrative Exam Narrative: Gen: In no acute distress, resting comfortable in bed. conversant. Head: normal to inspection, no palpable skull fracture Eyes: sclera clear. SUKI Neck no JVD, FROM Respiratory : normal respiratory effort and able to speak in complete sentences. Clear. CV: RRR, S1, S2. GI Inspection: Obese, NT, ND. Skin/4 cm skin abrasion on the left lower extremity distal third Neuro: patient alert. Normal cognition and speech., Extremities, no pitting edema, calf tenderness. Results Labs 04/10/23 13:40 04/10/23 13:40 Labs: Laboratory Results - last 24 hr 04/10/23 04/10/23 04/10/23 13:40 13:40 14:00 WBC 9.20 RBC 3.79 L Hgb 10.0 L Hct 33.3 L MCV 88 MCH 26.4 L MCHC 30.0 L RDW 18.6 H Plt Count 207 MPV 8.6 Immature Gran % 0.9 Neutrophils % 72.6 Lymphocytes % 15.3 Monocytes % 8.9 Eosinophils % 2.1 Basophils % 0.2 Nucleated RBC % 0.0 Absolute Neutrophils 6.68 Absolute Lymphocytes 1.41 Absolute Monocytes 0.82 H Absolute Eosinophils 0.19 Absolute Basophils 0.02 PT 22.7 H INR 2.2 H Sodium 136 Potassium 5.8 H Chloride 102 Carbon Dioxide 24.4 Anion Gap 9.6 BUN 103 H* Creatinine 4.5 H* Est GFR (CKD-EPI 2020) 12.28 Glucose 138 H Calcium 10.4 H Total Bilirubin 0.6 AST 31 ALT 20 Alkaline Phosphatase 154 H Total Protein 8.6 H Albumin 2.6 L Urine Color Urine Clarity Urine pH Ur Specific [place] Urine Protein Urine Ketones Urine Blood Urine Nitrite Urine Bilirubin Urine Urobilinogen Ur Leukocyte Esterase Urine RBC Urine WBC Ur Epithelial Cells Urine Crystals Urine Bacteria Urine Casts Urine Mucus Ur Culture Indicated? Urine Glucose 04/10/23 15:55 WBC RBC Hgb Hct MCV MCH MCHC RDW Plt Count MPV Immature Gran % Neutrophils % Lymphocytes % Monocytes % Eosinophils % Basophils % Nucleated RBC % Absolute Neutrophils Absolute Lymphocytes Absolute Monocytes Absolute Eosinophils Absolute Basophils PT INR Sodium Potassium Chloride Carbon Dioxide Anion Gap BUN Creatinine Est GFR (CKD-EPI 2020) Glucose Calcium Total Bilirubin AST ALT Alkaline Phosphatase Total Protein Albumin Urine Color Yellow Urine Clarity Cloudy Urine pH 7.0 Ur Specific [place] 1.020 Urine Protein >=300 H Urine Ketones Negative Urine Blood Large H Urine Nitrite Negative Urine Bilirubin Negative Urine Urobilinogen 0.2 Ur Leukocyte Esterase Large Urine RBC 10-20 H Urine WBC >50 H Ur Epithelial Cells Rare Urine Crystals Negative Urine Bacteria Moderate Urine Casts Negative Urine Mucus Negative Ur Culture Indicated? Yes Urine Glucose 100 H Last Vital Signs Temp 36.4 C 04/10/23 20:57 Pulse 61 04/10/23 20:57 Resp 20 04/10/23 20:57 BP 96/58 L 04/10/23 20:57 Pulse Ox 98 04/10/23 20:57 Time Spent Time spent with Patient: 40-54 minutes Time was spent: preparing to see the patient(eg.review tests), obtaining and/or reviewing separately otained hiistory, ordering medications,tests, procedures, referring, communicating with other health medicare biller and indepentently interpreting results
[2023-04-10] MEDS: Tamsulosin 0.4 MG CAPCR PO (23:22)
[2023-04-10] MEDS: Acetaminophen 325 MG TAB PO (23:22)
[2023-04-10] MEDS: Warfarin 5 MG TAB PO (23:23)
[2023-04-10] MEDS: Gabapentin 100 MG CAP 200 MG PO (23:23)
[2023-04-10] MEDS: Pravastatin 40 MG TAB PO (23:23)
[2023-04-10] MEDS: Insulin Glargine 300 UNITS/3 ML PEN 39 UNITS SC (23:43)
[2023-04-10 23:58] VITALS: PULSE 62; RESP 20; O2SAT 98
[2023-04-11 06:53] LABS: INR 2.8 (0.9-1.1); Prothrombin Time 28.2 sec (9.3-11.0)
[2023-04-11 06:57] LABS: PHOSPHORUS 5.8 mg/dL (2.6-4.7)
[2023-04-11 07:00] LABS: Anion Gap 10.8 mmol/L (3-11); CO2 22.2 mmol/L (21.0-32.0); Calcium 10.3 mg/dL (8.5-10.1); Chloride 103 mmol/L (98-107); Estimated GFR 12.28 (mL/min/1.73m2); Glucose 158 mg/dL (74-106); Sodium 136 mmol/L (136-145)
[2023-04-11 07:20] LABS: BUN 113 mg/dL (7-18); CREATININE 4.5 mg/dL (0.70-1.30)
[2023-04-11 07:44] VITALS: BP 102/66; PULSE 58; RESP 16; TEMP 35.9; O2SAT 99
[2023-04-11] MEDS: Insulin Aspart 300 UNITS/3 ML PEN 30 UNITS SC ×2 (08:21→12:31)
[2023-04-11] MEDS: Insulin Aspart 300 UNITS/3 ML PEN SC ×2 (08:22→12:31)
[2023-04-11] MEDS: Linezolid 600 MG TAB PO ×2 (08:22→20:04)
[2023-04-11] MEDS: Docusate Sodium 100 MG CAP PO (08:23)
[2023-04-11] MEDS: Multivitamin TAB 1 TAB PO (08:23)
[2023-04-11] MEDS: Finasteride 5 MG TAB PO (08:23)
[2023-04-11] MEDS: Torsemide 20 MG TAB 40 MG PO (08:23)
[2023-04-11] MEDS: Omeprazole 20 MG CAPCR PO (08:23)
--- NOTE | 2023-04-11 09:55 | PDOC.CMIN ---
Care Management Initial Assmt Initial Assessment PREVIOUS FUNCTIONAL STATUS/SOCIAL/FAMILY SUPPORTS:: Sav is and lives in [facility] with his Lashawn. He worked for [employer] and is now retired. Sav no longer drives and requires assistance with his ADL's at baseline. Sav and Lashawn have one daughter who lives about 6 miles from him and is supportive. CURRENT FUNCTIONAL STATUS:: Sav is lying in bed sleeping, his Lashawn is visiting and shares that Sav was notably more weak after discharging home. Unfortunately, he stubbed his toe while going from the car to the front step of his house and fell. Sav is agreeable to SNF for STR. Referral's are sent to sent to [facility], [facility], [facility]. ADVANCE DIRECTIVES:: On file, [facility] is Alt. Evon Agent Burak Coker Has patient been provided with info about the portal/API?: Yes Did the patient sign up for the portal?: Yes (Prior to admission) CODE STATUS:: DNR ([facility] on file) INSURANCE COVERAGE / FINANCIAL ISSUES:: [employer] [facility]. CURRENT HOME/COMMUNITY SERVICES/EQUIPMENT:: [facility] RN. Electric Wheelchair with ramps inside his home. Walker. Cpap PRIMARY CARE PHYSICIAN:: Dr. Dominguez POTENTIAL DISCHARGE NEEDS:: SNF for STR PATIENT/FAMILY EDUCATION NEEDS:: Review discharge instructions, limitations, medications and plan to follow up with community providers. Discuss ask me three. TRANSPORTATION:: Dependent on Dispo PLAN:: Anticipate, Sav will require SNF for STR, prior to discharging home. SNF referrals sent to [facility], [facility], [facility]. CM will follow. PFSH All Active Problems History of fall (Acute) Noninfected skin tear of left lower extremity (Acute) Fall (Acute) Advance care planning (Acute) Skin tear of left lower leg without complication (Acute) Discharge planning issues (Acute) Hyperkalemia (Acute) VRE (vancomycin resistant enterococcus) culture positive (Acute) Hydronephrosis, left (Acute) Hyperphosphatemia (Acute) Do not resuscitate (Acute) Pressure ulcer of right ischium (Acute) Chronic indwelling Knox catheter (Acute) Acute renal failure (Acute) Acute UTI (Acute) Diabetes mellitus (Chronic) Atrial fibrillation (Chronic) on coumadin Chronic kidney disease (Chronic) 2020- borderline stage 4 Venous insufficiency (chronic) (peripheral) (Acute) Nail dystrophy (Acute) COVID-19 (Acute ~08/05/22) Thumb pain (Acute) Right heart failure (Acute) Urinary retention (Acute) 11/2021, ultrasound shows significant pretty and post void residual- minimal response to voiding Kidney stones (Chronic) Longstanding history of multiple stones 11/2021 ultrasound showed multiple stones in kidney, 1 stone possibly in right ureter Anemia (Chronic) Chronic mild anemia, associated with CKD Obstructive sleep apnea (Chronic) cpap Acute on chronic heart failure with preserved ejection fraction (Acute) Hives (Acute) Obesity (Acute 02/11/13) Obstructive nephropathy (Acute) Moderate pulmonary arterial systolic hypertension (Chronic) Chronic anticoagulation (Chronic) Polyp of colon (Chronic) Rosacea (Chronic) Constipation (Chronic) CHF (congestive heart failure) (Chronic) Medical History 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 Daughter No problems noted. Social History Smoking/Tobacco Use Status: Never Second Hand Exposure: No Smoking risk assessment performed?: Yes Alcohol Intake: current Alcohol Intake frequency: holidays/special occasions only Drug use: Never Substance use type: does not use Caregiver/Support person: Yes Household members: spouse Housing: house Communication Needs: Hard of Hearing Do you need help understanding health information?: Often Pets and animals: No Sexually active: No What is your relationship status?: How often do you talk on the phone with friends or family?: decline to answer How often do you get together with friends or relatives?: decline to answer How often do you attend yazidi or temple services?: decline to answer Do you belong to any clubs or organized social groups?: decline to answer Panel score (0-1 are the most socially isolated patients): 1 What type of physical activity do you participate in: walking Duration: < 15 minutes/day Frequency: daily Special amor needs: No Do you feel safe at home: Yes Do you feel safe in your relationship?: Yes Readmission Within the Past 30 Days Yes or No: Yes Date of First Admission Date of 1st Admission: 03/21/23 Date of this Admission Date of Admission: 04/10/23 Office Visit Since 1st Admission Have you seen your PCP in the office since discharge?: No Had an appointment Been Scheduled?: Yes Date of Scheduled Appointment: 04/24/23 Speicalist Appointments Have you seen any other specialist since your 1st Admission?: No I. Interview patient and/or Family Difficulty reaching your doctor or getting an office appt?: No Have you had trouble purchasing/ or taking medication?: No Describe barriers fpr purchasing or taking medication: Antibiotics were not picked up at pharmacy after discharge. Have you had trouble with getting meals at home?: No Did you feel ready for discharge when you left the last time: Yes Were services received that you thought were set up on disch: Yes What services were received?: One [facility] RN visit Why weren't services received?: [facility] PT/OT/BILINGUAL TEACHER ASSISTANT services were ordered, Patient returned to the hospital less than 24 hours following discharge. discharge?: Yes What were the barriers for not receiving services?: Patient returned to the hospital less than 24 hours following discharge. Did you call your physician beore you came to the ED?: No Did your physician tell you to come in?: No How do you think you became sick enough to come back?: Reportedly, Sav fell getting into his home after discharge. If the patient had a VNA ordered Did the patient have a VNA order?: Yes Did you call the VNA before you came?: Yes Did the VNA tell you to come to the hospital?: Yes Do you know if the VNA called your physician?: Yes Ask the Care Team Members: What do you think caused the patient to be readmitted: Per ER report: He worked with PT and on the day of discharge was evaluated for safety on stairs and he did well.? He endorses not lifting his foot away from the stair riser and catching it on the stair.? This caused him to fall and scrape the left nicolas. He denied striking head. No presyncope or syncope. No CP or palpitations.? He then presented on day of this admission d/t unsafe ambulation d/t left leg discomfort.? ED visits How many ED visits in the past 12 months: 2
[2023-04-11] MEDS: Acetaminophen 325 MG TAB PO ×2 (13:41→21:13)
[2023-04-11 14:51] VITALS: BP 101/66; PULSE 73; RESP 18; TEMP 36.3; O2SAT 99
--- NOTE | 2023-04-11 16:45 | IN_ITS ---
Date of service: 04/11/23 Time of Service: 12:57 PT Notes Visit Reasons: Ambulatory Disfunction, Hyperkalemia,CKD Inpataient Physical Therapy Initial Evaluation Date: 04/11/2023 Referring Doctor:? Ru Adames,? PT Orders: PT CONSULT: Eval/Treat Precautions: Fall. Standard.? Activity as tolerated.? Fearful of falling. Patient Profile/Admitting Diagnosis:? Returns to the ED on 04/10/2023 due to a loss of balance that caused and another caregiver to slowly lower patient onto the floor at home last night.? Patient was discharged from this hospital on . S/P nephrostomy tube placement on 04/05/23 from a down and back surgery at [facility].?? Patient is a 82-year-old male who presented to the ED on 03/21/2023 due to 5 days worth of shortness of breath and is admitted admitted for the management of atrial fibrillation, chronic kidney disease, right-sided heart failure, anemia, moderate pulmonary arterial systolic hypertension, obstructive neuropathy, hyperlipidemia, type II DM, and LUCAS. PMHX: All Active Problems? Fever (Acute) Chronic indwelling Knox catheter (Acute) Symptomatic anemia (Acute) Acute renal failure (Acute) Acute UTI (Acute) Diabetes mellitus (Chronic) Atrial fibrillation (Chronic) on coumadin Chronic kidney disease (Chronic) 2020- borderline stage 4 Venous insufficiency (chronic) (peripheral) (Acute) Nail dystrophy (Acute) COVID-19 (Acute ~08/05/22) Thumb pain (Acute) Right heart failure (Acute) Urinary retention (Acute) 11/2021, ultrasound shows significant pretty and post void residual- minimal response to voiding Kidney stones (Chronic) Longstanding history of multiple stones 11/2021 ultrasound showed multiple stones in kidney, 1 stone possibly in right ureter Anemia (Chronic) Chronic mild anemia, associated with CKD Obstructive sleep apnea (Chronic) cpapAcute on chronic heart failure with preserved ejection fraction (Acute) Hives (Acute) Obesity (Acute 02/11/13) Obstructive nephropathy (Acute) Moderate pulmonary arterial systolic hypertension (Chronic) Chronic anticoagulation (Chronic) Polyp of colon (Chronic) Rosacea (Chronic) Constipation (Chronic) CHF (congestive heart failure) (Chronic) Medical History? Atrial fibrillation BPH (benign prostatic hyperplasia) Diabetes mellitus type 2 in obese Essential hypertension, benign GERD (gastroesophageal reflux disease) Hyperlipidemia Nephrolithiasis Obesity hypoventilation syndrome LUCAS on CPAP Palliative care patient Surgical History? Cholecystectomy (~1985) Colonoscopy - MAC (~2002) Replacement of total knee joint B/L Tonsillectomy and adenoidectomy Social History/Home Situation: Patient lives with Lashawn in a 1 floor house in [facility] with 2 steps to enter, no rails.?? 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 They have one supportive daughter who lives locally.? states that she uses a device that she holds up to him so that he can pull on it to sit up in bed.? Equipment Owned/DME: Bed that has changeable angles at the head and the knee but is not able to move up nor down Motorized wheelchair FWW SPC Subjective:? Reports pain in the L nicolas but expressed his plan of working fully with PT to improve his strength. Objective:? General Observation: Supine in bed, HOB at about 30 degrees.? Contusions noted in L elbow.? Abrasions seen in L nicolas.? Nephrostomoy tube on L side.? Knox catheter in place. Mental Status: Alert and oriented as to person,? place, and time Pain: Moderate pain noted in the L nicolas and L knee that are aggravated with movement and weight bearing ROM: Right Lower Extremity: Hip flexion up to 60 degrees. Hip abduction WFL. Knee flexion 0-90. Ankle dorsiflexion WFL. Ankle plantarflexion WFL. Left Lower Extremity: Hip flexion about 30 degrees. Hip abduction 10 degrees. Knee flexion 15-20 degrees. Ankle dorsiflexion WFL. Ankle plantarflexion WFL. Strength: Right Lower Extremity: Hip flexors 3-/5. Hip abductors 4/5. Knee flexors 3-/5. Knee extensors 4-/5. Ankle dorsiflexors 4-/5. Ankle plantarflexors 4-/5. Left Lower Extremity:Hip flexors 2-/5. Hip abductors 3-/5. Knee flexors 3-/5. Knee extensors 4-/5. Ankle dorsiflexors 4-/5. Ankle plantarflexors 4-/5. BED MOBILITY/TRANSFERS:? FORENSIC ENGINEER Susan assisting for safety? Supine-sit: moderate assist?of 2? Sit-stand: moderate assist?of 2? Stand-sit: moerate assist?of 2? Side step to L: minimal assist of 2 ? Scoot to L while seated at edge of bed: stand by assist with bed at lowest level? GAIT? Assistive Device: front-wheeled walker? Weight bearing: full Assist: contact guard ? Distance:? 2 small steps forward and two backward; small side step to L x 3 ? Balance:? Static Sitting: Good Dynamic Sitting: Fair Static Standing: Fair Dynamic Standing: Poor Informed Consent/Education:? Patient instructed in purpose of PT consult. Patient and agreeable to SNF placement anywhere once a bed becomes available. Assessment:? Patient has fearfulness of falling and has a tendency to get so anxious about transferring and walking,? needs maximal encouragement to safely complete mobility performance.? Able to bear weight through R LE during transfers.? Now requires assist of 2 caregivers for safe transfers.? Takes time to trust caregivers before he gets confident about moving about with them.? S/P nephrostomy tube placement on 04/05/23 from a down and back surgery at [facility].? Patient is a 82-year-old male recently admitted for management of atrial fibrillation, chronic kidney disease, right-sided heart failure, anemia, moderate pulmonary arterial systolic hypertension, obstructive neuropathy, hyperlipidemia, type II DM, and LUCAS.? He requires services and is appropriate for transition to SNF for continued rehabilitation once acceptance for placement is made. Patient presents with clinical signs and symptoms consistent with current/admitting diagnoses that have resulted to mobility limitations, gait instability, generalized weakness, and impairment of motor control as demonstrated by the following impairment level findings: 1.? Decreased strength to B LE major muscle groups 2.? Impaired sitting/standing balance 3.? Impaired activity tolerance/endurance 4.? Obesity 5.? Shortness of breath 6.? fearfulness of falling 7.? Generalized pain Impairments are contributing to the following functional limitations: 1.? Dependent bed mobility skills 2.? Increased dependence with transfers 3.? Inability to safely ambulate without assistive device and physical assi stance 4.? Increase completion time for mobility ADL performance 5.? Increased fall risk 6.? Inability to negotiate steps alone safely 7.? AMPAC score of 69% deficit Patient is assessed as a 63198 moderate complexity based on the following: History: Apparent functional mobility decline and reduced activity tolerance as a result of current medical diagnoses of urinary tract renal insufficiency Examination: Underlying impairments and functional limitations as noted above Presentation:Evolving Decision Makin moderate complexity Goals: Goals X1 week 1. Supine-Sit contact guard assist 2. Sit-Supine contact guard assist 3. Sit-Stand contact guard assist 4. Stand-Sit contact guard assist with FWW 5. Bed-Chair contact guard assist with FWW 6. Chair-Bed contact guard assist with FWW 7. Contact guard assist gait on level surface with use of FWW for at least 30 feet without report of pain nor dyspnea 8. Contact guard assist stair negotiation while holding onto bilateral rails for at least 3 steps without report of pain nor dyspnea PLAN OF CARE/TREATMENT PLAN: 1-2x/day, 7 days/week x 1 week. Plan of care has been reviewed with the FORENSIC ENGINEER providing the service under Physical Therapy direction. Pre-medicate for pain. Improve standing balance and tolerance. Progress ambulation distance as tolerated with wheelchair follow as needed. Initiate seated level strengthening exercises to B UE/LE. Facilitate balance skills to reduce fall risk. Deep breathing exercises in between activities to reduce fatigue. DISCHARGE RECOMMENDATIONS: [] ? Home with no services [] [] ? Home with services [specify] [] ? Home with outpatient PT [] [X] ? SNF for continued rehabilitation.? Patient will benefit from care home facility placement for continued skilled physical therapy services in order to progress mobility level, strength, and balance in preparation for a safe discharge to home. [] ? Corporate Accounting Manager Care [] [] ? SNF versus LTC based on ability to participate and progress [] TREATMENT CODE/TIME: 28981 x 20 minutes, 97074 x 17 minutes beginning at 12:57 PM. Thank you for the opportunity to participate in the care of this patient. Madhavi Victoria PT, DPT, CLT [facility] [place], [place]
--- NOTE | 2023-04-11 19:05 | W.PM.PROGNOT ---
Date of Service Date of service: 04/11/23 Time of Service: 19:06 Assessment and Plan Assessment and plan (1) Noninfected skin tear of left lower extremity: Status: Acute Assessment and plan: Continue wound care. (2) VRE (vancomycin resistant enterococcus) culture positive: Status: Acute Assessment and plan: Continue linezolid. Patient's did notify us that there was possibly an interruption in his antibiotic regimen because linezolid was not available at the pharmacy. On discharge, we will need to make sure that his SNF has it in stock. (3) Hydronephrosis, left: Status: Acute Assessment and plan: S/P nephrostomy. For outpatient f/u with [facility] (Dr Santos is arranging this). (4) Atrial fibrillation: Status: Chronic Assessment and plan: Continue warfarin. (5) Chronic kidney disease: Status: Chronic Assessment and plan: Cr stable. I am considering obtaining an ultrasound to ensure that the nephrostomy tube is in good position as its output was only 50 cc overnight. Continue torsemide 40mg daily and metolazone 5 mg Mon and Th prn. (6) Diabetes mellitus type 2 in obese: Assessment and plan: I have adjusted his basal bolus insulin to 39 units of lantus at night and SSI. (7) Fall: Status: Acute Assessment and plan: PT following. Will need placement. (8) Hyperphosphatemia: Status: Acute Assessment and plan: Continue phoslo. (9) Chronic indwelling Knox catheter: Status: Acute Assessment and plan: No evidence of a UTI. Followed by urology. (10) Pressure ulcer of right ischium: Status: Acute Assessment and plan: Present on previous admission. Continue would care. (11) Essential hypertension, benign: Assessment and plan: Continue current regimen. (12) Hyperlipidemia: Assessment and plan: Continue pravastatin. (13) LUCAS on CPAP: Assessment and plan: Continue Home CPAP (14) Discharge planning issues: Status: Acute Assessment and plan: Awaiting SNF placement. Subjective Subjective Interval history since last seen: Reports L knee pain which has already gotten better, but he was guarding it during PT today. Denies dizziness, chest pain, shortness of breath, nausea. Feels well overall. pointed out again that his insulin regimen is not what he takes at home. This has now been corrected. Exam Narrative Exam Narrative: General: Pleasant obese male who is A&Ox3, NAD HEENT: EOMI, MMM Heart: RRR, no m/r/g Lungs: CTAB Abdomen: soft, nontender, nondistended Extremities: no edema BLEs; dressing distal LLE. No evidence of hematoma/abrasion to L knee Objective Last Vital Signs Temp 36.3 C L 04/11/23 14:51 Pulse 73 04/11/23 14:51 Resp 18 04/11/23 14:51 BP 101/66 04/11/23 14:51 Pulse Ox 99 04/11/23 14:51 Laboratory Results - last 24 hr 04/11/23 04/11/23 04/11/23 06:32 06:32 06:32 PT 28.2 H INR 2.8 H Sodium 136 Potassium 5.0 Chloride 103 Carbon Dioxide 22.2 Anion Gap 10.8 BUN 113 H* Creatinine 4.5 H* Est GFR (CKD-EPI 2020) 12.28 Glucose 158 H Calcium 10.3 H Phosphorus 5.8 H Magnesium 2.0 Time Spent with Patient Time Spent with Patient: 25-34 minutes Time was spent: preparing to see the patient(eg.review tests), obtaining and/or reviewing separately otained hiistory, ordering medications,tests, procedures, referring, communicating with other health care transport nurse, indepentently interpreting results, counseling the patient and care coordination
[2023-04-11] MEDS: Warfarin 5 MG TAB PO (20:04)
[2023-04-11] MEDS: Pravastatin 40 MG TAB PO (20:04)
[2023-04-11] MEDS: Tamsulosin 0.4 MG CAPCR PO (21:13)
[2023-04-11] MEDS: Melatonin 3 MG TAB 6 MG PO (21:13)
[2023-04-11] MEDS: Gabapentin 100 MG CAP 200 MG PO (21:13)
[2023-04-11] MEDS: Insulin Glargine 300 UNITS/3 ML PEN 39 UNITS SC (21:14)
--- NOTE | 2023-04-12 | DI.CT_ITS ---
Exam(s) CT RENAL COLIC WO EXAM: CT RENAL COLIC WO CLINICAL HISTORY: confirm placement of the nephrostomy tube. TECHNIQUE: Imaging Protocol: Axial computed tomography images with coronal and sagittal reformatted images were created and reviewed CONTRAST MATERIAL: Intravenous: none Oral: None COMPARISON: CT CT ABDOMEN PELVIS WO from 04/18/2019 FINDINGS: VISUALIZED LUNG BASES: No nodules nor pleural effusions evident. ABDOMEN: There is no ascites. LIVER: There are no obvious focal hepatic lesions evident of this noninfused study. GALLBLADDER/BILIARY: Gallbladder again noted be surgically absent. CBD is not dilated. PANCREAS: Multiple small parenchymal calcifications noted. Pancreatic duct is not dilated. No evide nce of acute pancreatitis. No ominous pancreatic mass evident on this non few study. SPLEEN: Mildly enlarged. No obvious splenic lesions ADRENALS: There are no significant adrenal masses. KIDNEYS:Multiple calcifications are seen in both kidneys and large exophytic cyst again seen off the lateral aspect of the right kidney, presently measuring 6 by 4.5 cm no obstructing calculus in the ri ght ureter. On the left side there is a nephrostomy tube in upper pole calyx. There is some surroun ding streaking around the left kidney again noted. Prominent nephrolithiasis again noted and there i s again noted an obstructing calculus in the left ureter at approximately L4 level, this calculus yusra suring 10 mm craniocaudal by 10 mm wide. Ureter above this level is dilated. Ureter below this leve l is not dilated. There are multiple calculi in the collapsed urinary bladder. There is a E Knox c atheter in the bladder lumen.. ABDOMINAL AORTA: Abdominal aorta is not enlarged. LYMPH NODES: There is no retroperitoneal nor paraaortic adenopathy. ABDOMINAL WALL: Large fat containing midline abdominal umbilical hernia noted, unchanged. No bowel l oops therein. No bowel obstruction. GI: There is no evidence of bowel obstruction, free air, nor abscess. PELVIS: LYMPH NODES: There is no intrapelvic nor inguinal adenopathy. GI: No evidence of appendicitis.Redundant sigmoid. No diverticulitis. URINARY BLADDER: Knox catheter in the urinary bladder and the bladder contains multiple calculi, as previously present. REPRODUCTIVE: Prostate not enlarged. OSSEOUS: No significant osseous lesions. No fractures. Mild anterolisthesis L4 upon L5 related to facet arthropathy. IMPRESSION: 1. There is a left-sided nephrostomy tube which is in the upper pole calyx. There are numerous calcu li in the left upper pole calyx as well as throughout the left kidney and there is again noted a prom inent 1 cm x 1 cm obstructing calculus in the mid left ureter at approximately the L4 level. There i s streaking around the left kidney which is most probably related to back pressure and possibly recen t interventional procedure-placement of the nephrostomy tube. 2. Multiple calculi are also again noted in the opposite-right kidney as well as in the urinary bladd er. 3. Knox catheter is noted in the urinary bladder. 4. Other findings as above. RADIATION DOSE DELIVERED: 1,900.94mGy.cm Total DLP DATA REPOSITORY: All CT scans at this facility are submitted to the National Radiology Data Registry (NRDR) Dose Index Registry (DIR) with the [employer] (A[employer]). RADIATION OPTIMIZATION: All CT scans at this facility use at least one of these dose optimization te chniques: automated exposure control; mA and/or kV adjustment per patient size (includes targeted exa ms where dose is matched to clinical indication); or iterative reconstruction.
[2023-04-12 01:58] VITALS: RESP 20
[2023-04-12 03:15] VITALS: BP 117/69; PULSE 71; RESP 18; TEMP 36.5; O2SAT 97
[2023-04-12] MEDS: Acetaminophen 325 MG TAB PO ×4 (03:46→20:44)
[2023-04-12 06:23] LABS: Abs Immature Grans 0.04 10^3/uL (0.0-0.06); Absolute Basophil Count 0.02 10^3/uL (0.0-0.2); Absolute Eosinophil Count 0.19 10^3/uL (0.0-0.7); Absolute Lymphocyte Count 1.41 10^3/uL (1.2-3.4); Absolute Monocyte Count 0.81 10^3/uL (0.1-0.8); Absolute Neutrophil Count 5.99 10^3/uL (1.2-6.7); Basophils % 0.2; Eosinophils % 2.2; HGB 8.8 g/dL (13.5-17.5); Immature Grans % 0.5; Lymphocytes % 16.7; MCHC 31.4 % (32.0-36.0); MCV 86 fL (80-95); MPV 9.2 fL (8.0-11.0); Monocytes % 9.6; Neutrophils % 70.8; Platelet Count 172 10^3/uL (130-400); RBC 3.26 10^6/uL (4.36-5.78); RDW 18.6 % (11.8-14.1); WBC 8.46 10^3/uL (4.4-10.8)
[2023-04-12 06:38] LABS: Prothrombin Time 37.7 sec (9.3-11.0)
[2023-04-12 06:41] LABS: INR 3.7 (0.9-1.1)
[2023-04-12 06:54] LABS: Anion Gap 13.1 mmol/L (3-11); CO2 19.9 mmol/L (21.0-32.0); Calcium 9.9 mg/dL (8.5-10.1); Chloride 101 mmol/L (98-107); Estimated GFR 11.37 (mL/min/1.73m2); Glucose 121 mg/dL (74-106); Magnesium 1.9 mg/dL (1.8-2.4); Potassium 4.3 mmol/L (3.5-5.1); Sodium 134 mmol/L (136-145)
[2023-04-12 06:57] LABS: BUN 104 mg/dL (7-18); CREATININE 4.8 mg/dL (0.70-1.30)
[2023-04-12 07:33] VITALS: BP 103/67; PULSE 64; RESP 22; TEMP 36; O2SAT 99
[2023-04-12] MEDS: Omeprazole 20 MG CAPCR PO (07:43)
[2023-04-12] MEDS: Linezolid 600 MG TAB PO ×2 (07:43→20:44)
[2023-04-12] MEDS: Multivitamin TAB 1 TAB PO (07:43)
[2023-04-12] MEDS: Finasteride 5 MG TAB PO (07:43)
[2023-04-12] MEDS: Docusate Sodium 100 MG CAP PO (07:44)
--- NOTE | 2023-04-12 09:35 | CMPROGNOTE_ITS ---
Date of service: 04/12/23 Time of Service: 09:36 Care Management Progress Note Progress Note Text Progress Note Text: S/O: Sav is lying in bed when CM met with him. He is awake, alert and engages in conversation. He is planning on discharging to SNF for STR, and is awaiting placement. [facility] is anticipating a couple of discharges next week. Saturday is a holiday, CM will follow up on all referrals on Saturday. A: 82 year old male readmitted to [facility] on 04/10/23 hyperkalemia, CKD, Ambulatory Discfuntion, Hydronephrosis P:Anticipate, Sav will require SNF for STR, prior to discharging home. SNF referrals sent to [facility], [facility], [facility] and [facility]. Transportation will be dependent on mobility and disposition at time of discharge. CM will follow.
[2023-04-12] MEDS: Insulin Aspart 300 UNITS/3 ML PEN SC ×2 (11:45→16:56)
[2023-04-12 15:28] VITALS: BP 108/70; PULSE 83; RESP 22; TEMP 36.6; O2SAT 100
--- NOTE | 2023-04-12 17:44 | PT.INTREAT ---
Date of service: 04/12/23 Time of Service: 10:17 PT Notes Visit Reasons: Ambulatory Disfunction, Hyperkalemia,CKD Inpatient Physical Therapy Treatment Note [facility] Date: 04/12/23 PRECAUTIONS: Fall, standard, activity as tolerated. Contact precautions. SUBJECTIVE: Patient reports feeling fair to middlin. Supine in bed. Agreeable to therapy. Agreeable to get up to the chair. OBJECTIVE: PAIN: none reported, although does demonstrate some pain signs especially when moving left leg. BED MOBILITY/TRANSFERS Rolling L/R: mod assist Supine-sit: max assist of one with verbal cues Sit-supine: mod assist of one to get into the bed. Max assist of 2 / depdendent for positioning. Sit-stand: mod assist of one. Stand-sit: Contact guard assist. Bed-Chair: Max assist of one. Patient is unsafe. Patient attempts to sit before lined up with chair. GAIT Assistive Device: FWW Weight bearing: full Assist: Mod, with verbal and tactile cues Distance: 3 feet Deviation: reduced step height, reduced step length, reduced weight through left leg, poor posture. Verbal and tactile cues for stepping, lining up with chair. ASSESSMENT: Patient is resting comfortably in chair at end of treatment; call mcneal, water, recliner control within reach. Pleased with his ability to get into chair with assist of one. PLAN: Continue strengthening per plan of care. TREATMENT CODE/TIME: 24951 Gait 15 minutes, 50722 Ther Act 13 minutes beginning at 10:17
--- NOTE | 2023-04-12 19:55 | PGE_ITS ---
Date of Service Date of service: 04/12/23 Time of Service: 17:50 Assessment and Plan Assessment and plan (1) Noninfected skin tear of left lower extremity: Status: Acute Assessment and plan: Continue wound care. (2) VRE (vancomycin resistant enterococcus) culture positive: Status: Acute Assessment and plan: Continue linezolid. Patient's did notify us that there was possibly an interruption in his antibiotic regimen because linezolid was not available at the pharmacy. On discharge, we will need to make sure that his SNF has it in stock. (3) Hydronephrosis, left: Status: Acute Assessment and plan: S/P nephrostomy. We did confirm on CT that the nephrostomy tube tip is in the right place (CT obtained due to low UOP via nephrostomy as compared to the griffin catheter). For outpatient f/u with [facility] (Dr Santos is arranging this). (4) Atrial fibrillation: Status: Chronic Assessment and plan: INR supratherapeutic. Hold warfarin tonight. (5) Chronic kidney disease: Status: Chronic Assessment and plan: Cr slightly worse. Hold diuretics today. CT as above: nephrostomy is in place. (6) Diabetes mellitus type 2 in obese: Assessment and plan: Continue basal bolus insulin (39 units of lantus at night + SSI). (7) Fall: Status: Acute Assessment and plan: PT following. Will need placement. (8) Hyperphosphatemia: Status: Acute Assessment and plan: Continue phoslo. (9) Chronic indwelling Griffin catheter: Status: Acute Assessment and plan: No evidence of a UTI. Followed by urology. (10) Pressure ulcer of right ischium: Status: Acute Assessment and plan: Present on previous admission. Continue would care. (11) Essential hypertension, benign: Assessment and plan: Continue current regimen. (12) Hyperlipidemia: Assessment and plan: Continue pravastatin. (13) LUCAS on CPAP: Assessment and plan: Continue Home CPAP (14) Discharge planning issues: Status: Acute Assessment and plan: DNR Awaiting SNF placement. Subjective Subjective Interval history since last seen: Mr Winkler had LLE pain earlier but not now. Denies dizziness, CP, SOB, n/v. Renal CT today shows the nephrostomy tube is in the adequate position. Exam Narrative Exam Narrative: General: Pleasant obese male who is A&Ox3, NAD HEENT: EOMI, MMM Heart: RRR, no m/r/g Lungs: CTAB Abdomen: soft, nontender, nondistended Extremities: no edema BLEs; dressing distal LLE. No evidence of hematoma/abrasion to L knee Objective Last Vital Signs Temp 36.6 C 04/12/23 15:28 Pulse 83 04/12/23 15:28 Resp 22 04/12/23 15:28 BP 108/70 04/12/23 15:28 Pulse Ox 100 04/12/23 15:28 Laboratory Results - last 24 hr 04/12/23 04/12/23 04/12/23 06:10 06:10 06:10 WBC 8.46 RBC 3.26 L Hgb 8.8 L Hct 28.0 L MCV 86 MCH 27.0 MCHC 31.4 L RDW 18.6 H Plt Count 172 MPV 9.2 Immature Gran % 0.5 Neutrophils % 70.8 Lymphocytes % 16.7 Monocytes % 9.6 Eosinophils % 2.2 Basophils % 0.2 Nucleated RBC % 0.0 Absolute Neutrophils 5.99 Absolute Lymphocytes 1.41 Absolute Monocytes 0.81 H Absolute Eosinophils 0.19 Absolute Basophils 0.02 PT 37.7 H INR 3.7 H Sodium 134 L Potassium 4.3 Chloride 101 Carbon Dioxide 19.9 L Anion Gap 13.1 H BUN 104 H* Creatinine 4.8 H* Est GFR (CKD-EPI 2020) 11.37 Glucose 121 H Calcium 9.9 Magnesium 1.9 Objective Narrative Objective Narrative: CT renal: 1. There is a left-sided nephrostomy tube which is in the upper pole calyx.? There are numerous calculi in the left upper pole calyx as well as throughout the left kidney and there is again noted a prominent 1 cm x 1 cm obstructing calculus in the mid left ureter at approximately the L4 level.? There is streaking around the left kidney which is most probably related to back pressure and possibly recent interventional procedure-placement of the nephrostomy tube. 2. Multiple calculi are also again noted in the opposite-right kidney as well as in the urinary bladder. 3. Griffin catheter is noted in the urinary bladder. Time Spent with Patient Time Spent with Patient: 25-34 minutes Time was spent: preparing to see the patient(eg.review tests), obtaining and/or reviewing separately otained hiistory, ordering medications,tests, procedures, referring, communicating with other health primary care physician, indepentently interpreting results, counseling the patient and care coordination
[2023-04-12] MEDS: Tamsulosin 0.4 MG CAPCR PO (20:44)
[2023-04-12] MEDS: Gabapentin 100 MG CAP 200 MG PO (20:44)
[2023-04-12] MEDS: Melatonin 3 MG TAB 6 MG PO (20:44)
[2023-04-12] MEDS: Pravastatin 40 MG TAB PO (20:44)
[2023-04-12] MEDS: Insulin Glargine 300 UNITS/3 ML PEN 39 UNITS SC (20:45)
[2023-04-12 22:45] VITALS: BP 104/60; PULSE 77; RESP 22; TEMP 36.1; O2SAT 98
[2023-04-13] MEDS: Acetaminophen 325 MG TAB PO ×3 (02:09→21:00)
[2023-04-13 06:15] VITALS: BP 108/68; PULSE 88; RESP 22; TEMP 36.3; O2SAT 93
[2023-04-13 06:44] LABS: Abs Immature Grans 0.12 10^3/uL (0.0-0.06); Absolute Basophil Count 0.03 10^3/uL (0.0-0.2); Absolute Eosinophil Count 0.16 10^3/uL (0.0-0.7); Absolute Monocyte Count 0.78 10^3/uL (0.1-0.8); Basophils % 0.4; Eosinophils % 2.2; HCT 26.9 % (40.0-50.0); HGB 8.5 g/dL (13.5-17.5); Immature Grans % 1.7; Lymphocytes % 15.3; MCH 26.8 pg (27.0-33.0); MCHC 31.6 % (32.0-36.0); MCV 85 fL (80-95); MPV 8.6 fL (8.0-11.0); Monocytes % 10.8; Neutrophils % 69.6; Platelet Count 157 10^3/uL (130-400); RBC 3.17 10^6/uL (4.36-5.78); RDW 18.6 % (11.8-14.1); RDW-SD 56.4 fL; WBC 7.19 10^3/uL (4.4-10.8)
[2023-04-13 06:58] LABS: Anion Gap 11.3 mmol/L (3-11); CO2 19.7 mmol/L (21.0-32.0); Calcium 9.4 mg/dL (8.5-10.1); Chloride 99 mmol/L (98-107); Estimated GFR 11.66 (mL/min/1.73m2); Glucose 149 mg/dL (74-106); Potassium 4.3 mmol/L (3.5-5.1); Sodium 130 mmol/L (136-145)
[2023-04-13 07:19] LABS: BUN 107 mg/dL (7-18); CREATININE 4.7 mg/dL (0.70-1.30)
[2023-04-13 07:28] LABS: Prothrombin Time 45.3 sec (9.3-11.0)
[2023-04-13 07:31] VITALS: RESP 20
[2023-04-13 07:32] LABS: INR 4.5 (0.9-1.1)
[2023-04-13] MEDS: Linezolid 600 MG TAB PO ×2 (07:38→21:00)
[2023-04-13] MEDS: Multivitamin TAB 1 TAB PO (07:38)
[2023-04-13] MEDS: Docusate Sodium 100 MG CAP PO (07:38)
[2023-04-13] MEDS: Omeprazole 20 MG CAPCR PO (07:38)
[2023-04-13] MEDS: Finasteride 5 MG TAB PO (07:38)
[2023-04-13] MEDS: Metoprolol CR 100 MG TABCR PO (07:38)
[2023-04-13] MEDS: Insulin Aspart 300 UNITS/3 ML PEN SC ×3 (09:00→17:29)
--- NOTE | 2023-04-13 12:20 | PT.INTREAT ---
Date of service: 04/13/23 Time of Service: 09:00 PT Notes Visit Reasons: Ambulatory Disfunction, Hyperkalemia,CKD Inpatient Physical Therapy Treatment Note [facility] Date: 04/13/23 PRECAUTIONS: Fall, standard, activity as tolerated, contact precautions. SUBJECTIVE: patient reports feeling fair to middlin'. Supine in bed, agreeable to therapy. OBJECTIVE: PAIN: denied pain but grimaced several times with movement. BED MOBILITY/TRANSFERS Rolling L/R: min assist, verbal cues, extra time required. Supine-sit: Mod assist, verbal cues, extra time required. Sit-supine: Mod assist, verbal cues, extra time required. Sit-stand: Mod assist, extra time required. Stand-sit: CGA, verbal cues for safety. THER ACT: Patient participiates in bed mobility training including bridging, rolling, scooting. Therapist verbal and tactile cues. ASSESSMENT: Patient tolerates therapy well, is resting supine in bed at end of treatment. Phone, call mcneal, bed control all within easy reach. PLAN: Bring caregiver assisted living, leg mine surveyor, long handled shoe horn tomorrow and teach patient to don/doff own footwear. Possible OT referral? TREATMENT CODE/TIME: 76525 Ther Act 31 minutes beginning at 9:00
--- NOTE | 2023-04-13 14:23 | PGE_ITS ---
Date of Service Date of service: 04/13/23 Time of Service: 14:24 Assessment and Plan Assessment and plan (1) Noninfected skin tear of left lower extremity: Status: Acute Assessment and plan: Continue wound care. (2) VRE (vancomycin resistant enterococcus) culture positive: Status: Acute Assessment and plan: Continue linezolid. Patient's did notify us that there was possibly an interruption in his antibiotic regimen because linezolid was not available at the pharmacy. On discharge, we will need to make sure that his SNF has it in stock. (3) Hydronephrosis, left: Status: Acute Assessment and plan: S/P nephrostomy. We did confirm on CT that the nephrostomy tube tip is in the right place (CT obtained due to low UOP via nephrostomy as compared to the griffin catheter). For outpatient f/u with [facility] [place] (Dr Santos is arranging this). (4) Atrial fibrillation: Status: Chronic Assessment and plan: INR supratherapeutic. Hold warfarin again tonight. (5) Chronic kidney disease: Status: Chronic Assessment and plan: Cr slightly worse. Diuretic held on 04/12 and will hold again today. CT as above: nephrostomy is in place. (6) Diabetes mellitus type 2 in obese: Assessment and plan: Continue basal bolus insulin (39 units of lantus at night + SSI). (7) Fall: Status: Acute Assessment and plan: PT following. Will need placement. (8) Hyperphosphatemia: Status: Acute Assessment and plan: Continue phoslo. (9) Chronic indwelling Griffin catheter: Status: Acute Assessment and plan: No evidence of a UTI. Followed by urology. (10) Pressure ulcer of right ischium: Status: Acute Assessment and plan: Present on previous admission. Continue would care. (11) Essential hypertension, benign: Assessment and plan: Continue current regimen. (12) Hyperlipidemia: Assessment and plan: Continue pravastatin. (13) LUCAS on CPAP: Assessment and plan: Continue Home CPAP (14) Discharge planning issues: Status: Acute Assessment and plan: DNR Awaiting SNF placement. Subjective Subjective Patient reports: no new complaints and afebrile; denies nausea, vomiting or shortness of breath Exam Narrative Exam Narrative: General: Pleasant and cooperative. Asleep in recliner; wakens readily. HEENT: jSclera clear, MMM Heart: RRR, no murmur Lungs: CTAB. Nonlabored breathing. Abdomen: soft, nontender, nondistended Extremities: no edema BLEs; dressing distal LLE. No evidence of hematoma/abrasion to L knee Objective Last Vital Signs Temp 36.3 C L 04/13/23 06:15 Pulse 88 04/13/23 06:15 Resp 22 04/13/23 06:15 BP 108/68 04/13/23 06:15 Pulse Ox 93 04/13/23 06:15 Laboratory Results - last 24 hr 04/13/23 04/13/23 04/13/23 06:35 06:35 06:35 WBC 7.19 RBC 3.17 L Hgb 8.5 L Hct 26.9 L MCV 85 MCH 26.8 L MCHC 31.6 L RDW 18.6 H Plt Count 157 MPV 8.6 Immature Gran % 1.7 Neutrophils % 69.6 Lymphocytes % 15.3 Monocytes % 10.8 Eosinophils % 2.2 Basophils % 0.4 Nucleated RBC % 0.0 Absolute Neutrophils 5.00 Absolute Lymphocytes 1.10 L Absolute Monocytes 0.78 Absolute Eosinophils 0.16 Absolute Basophils 0.03 PT 45.3 H INR 4.5 H* Sodium 130 L Potassium 4.3 Chloride 99 Carbon Dioxide 19.7 L Anion Gap 11.3 H BUN 107 H* Creatinine 4.7 H* Est GFR (CKD-EPI 2020) 11.66 Glucose 149 H Calcium 9.4 Magnesium 2.0 Time Spent with Patient Time Spent with Patient: 25-34 minutes Time was spent: preparing to see the patient(eg.review tests), obtaining and/or reviewing separately otained hiistory, ordering medications,tests, procedures, referring, communicating with other health career development coordinator/teacher and indepentently interpreting results
[2023-04-13 14:57] VITALS: BP 108/74; PULSE 54; RESP 20; TEMP 36.3; O2SAT 100
[2023-04-13] MEDS: Melatonin 3 MG TAB 6 MG PO (21:00)
[2023-04-13] MEDS: Gabapentin 100 MG CAP 200 MG PO (21:00)
[2023-04-13] MEDS: Pravastatin 40 MG TAB PO (21:00)
[2023-04-13] MEDS: Tamsulosin 0.4 MG CAPCR PO (21:00)
[2023-04-13] MEDS: Insulin Glargine 300 UNITS/3 ML PEN 39 UNITS SC (21:00)
[2023-04-13 23:10] VITALS: BP 100/64; PULSE 52; RESP 20; TEMP 36; O2SAT 97
[2023-04-14 06:18] LABS: Abs Immature Grans 0.04 10^3/uL (0.0-0.06); Absolute Basophil Count 0.02 10^3/uL (0.0-0.2); Absolute Lymphocyte Count 1.31 10^3/uL (1.2-3.4); Absolute Monocyte Count 0.62 10^3/uL (0.1-0.8); Absolute Neutrophil Count 4.57 10^3/uL (1.2-6.7); Basophils % 0.3; Immature Grans % 0.6; Lymphocytes % 19.4; MCH 26.7 pg (27.0-33.0); MCV 86 fL (80-95); MPV 8.7 fL (8.0-11.0); Monocytes % 9.2; Neutrophils % 67.5; Platelet Count 146 10^3/uL (130-400); RBC 3.37 10^6/uL (4.36-5.78); RDW 18.6 % (11.8-14.1); RDW-SD 57.7 fL; WBC 6.76 10^3/uL (4.4-10.8)
[2023-04-14 06:38] LABS: Prothrombin Time 50.8 sec (9.3-11.0)
[2023-04-14 06:44] LABS: Anion Gap 12.7 mmol/L (3-11); CO2 20.3 mmol/L (21.0-32.0); Calcium 9.4 mg/dL (8.5-10.1); Chloride 101 mmol/L (98-107); Estimated GFR 11.96 (mL/min/1.73m2); Glucose 137 mg/dL (74-106); Potassium 4.4 mmol/L (3.5-5.1); Sodium 134 mmol/L (136-145)
[2023-04-14 06:51] LABS: INR 5.1 (0.9-1.1)
[2023-04-14 06:52] LABS: BUN 103 mg/dL (7-18); CREATININE 4.6 mg/dL (0.70-1.30)
[2023-04-14 07:31] VITALS: BP 110/74; PULSE 57; RESP 20; TEMP 36.2; O2SAT 99
[2023-04-14 08:05] VITALS: RESP 20
[2023-04-14] MEDS: Docusate Sodium 100 MG CAP PO (09:07)
[2023-04-14] MEDS: Finasteride 5 MG TAB PO (09:07)
[2023-04-14] MEDS: Linezolid 600 MG TAB PO ×2 (09:07→21:03)
[2023-04-14] MEDS: Multivitamin TAB 1 TAB PO (09:07)
[2023-04-14] MEDS: Omeprazole 20 MG CAPCR PO (09:07)
[2023-04-14] MEDS: Acetaminophen 325 MG TAB PO ×3 (09:18→21:03)
[2023-04-14 09:22] VITALS: PULSE 71
[2023-04-14] MEDS: Metoprolol CR 100 MG TABCR PO (09:22)
--- NOTE | 2023-04-14 10:30 | PGE_ITS ---
Date of Service Date of service: 04/14/23 Time of Service: 10:30 Assessment and Plan Assessment and plan (1) Noninfected skin tear of left lower extremity: Status: Acute Assessment and plan: Continue wound care. (2) VRE (vancomycin resistant enterococcus) culture positive: Status: Acute Assessment and plan: Continue linezolid. Patient's did notify us that there was possibly an interruption in his antibiotic regimen because linezolid was not available at the pharmacy. On discharge, we will need to make sure that his SNF has it in stock. (3) Hydronephrosis, left: Status: Acute Assessment and plan: S/P nephrostomy. Draining well For outpatient f/u with [facility] [place] (Dr Santos is arranging this). From [place] - To reduce the rate of tube malfunction and associated infectious complications, some institutions routinely flush nephrostomy tubes with sterile?once or twice a day, but there is little evidence to support this practice - and after speaking with Dr. Wilson @ [facility] he recommends NOT flushing the tube. Follow output (4) Atrial fibrillation: Status: Chronic Assessment and plan: INR supratherapeutic. 5.1 - Vitamin K 2.5 mg orally given s/t blood tinged urine in nephrostomy collection bag - no increased pain, draining adequatelty, afebrile Hold warfarin again tonight. Rate controlled 55-80 (5) Chronic anticoagulation: Status: Chronic Assessment and plan: INR supratherapeutic. 5.1 - Vitamin K 2.5 mg orally given s/t blood tinged urine in nephrostomy collection bag - no increased pain, draining adequatelty, afebrile Hold warfarin again tonight. Follow INR (6) Anemia: Status: Chronic Assessment and plan: Hgb yup to 9.0 from 8.5 and Hct up to 29 from 26.9; Rechecked after having red coolaid colored urine from nephrostomy tube - continues to improved Hgb - 9.2 and Hct 29.8 Follow H&H (7) Chronic kidney disease: Status: Chronic Assessment and plan: BUN 103 Creatinine 4.6 Follow renal fxn (8) Diabetes mellitus type 2 in obese: Assessment and plan: Continue basal bolus insulin (39 units of lantus at night + SSI). Glucose ~ 220-230 Continue to monitor and adjust accordingly (9) Fall: Status: Acute Assessment and plan: PT following. Will need placement. (10) Hyperphosphatemia: Status: Acute Assessment and plan: Continue phoslo. (11) Chronic indwelling Knox catheter: Status: Acute Assessment and plan: No evidence of a UTI. Followed by urology. (12) Pressure ulcer of right ischium: Status: Acute Assessment and plan: Present on previous admission. Continue wound care. (13) Essential hypertension, benign: Assessment and plan: Continue current regimen. (14) Hyperlipidemia: Assessment and plan: Continue pravastatin. (15) LUCAS on CPAP: Assessment and plan: Continue Home CPAP (16) DVT prophylaxis: Status: Acute Assessment and plan: On warfarin - being held at present time - INR 5.1 (17) Discharge planning issues: Status: Acute Assessment and plan: DNR Awaiting SNF placement. Discussed with Dr Miller Subjective Subjective Patient reports: no new complaints Interval history since last seen: Sitting up in a chair, eating watermellon, in the room. He reports feeling better. Exam Narrative Exam Narrative: General: Pleasant obese male who is A&Ox3, NAD HEENT: EOMI, MMM Heart: RRR, no m/r/g Lungs: CTAB Abdomen: soft, nontender, nondistended Extremities: no edema BLEs; dressing distal LLE. No evidence of hematoma/abrasion to L knee Objective Last Vital Signs Temp 36.2 C L 04/14/23 07:31 Pulse 71 04/14/23 09:22 Resp 20 04/14/23 07:31 BP 110/74 04/14/23 07:31 Pulse Ox 99 04/14/23 07:31 Laboratory Results - last 24 hr 04/14/23 04/14/23 04/14/23 06:12 06:12 06:12 WBC 6.76 RBC 3.37 L Hgb 9.0 L Hct 29.0 L MCV 86 MCH 26.7 L MCHC 31.0 L RDW 18.6 H Plt Count 146 MPV 8.7 Immature Gran % 0.6 Neutrophils % 67.5 Lymphocytes % 19.4 Monocytes % 9.2 Eosinophils % 3.0 Basophils % 0.3 Nucleated RBC % 0.0 Absolute Neutrophils 4.57 Absolute Lymphocytes 1.31 Absolute Monocytes 0.62 Absolute Eosinophils 0.20 Absolute Basophils 0.02 PT 50.8 H INR 5.1 H* Sodium 134 L Potassium 4.4 Chloride 101 Carbon Dioxide 20.3 L Anion Gap 12.7 H BUN 103 H* Creatinine 4.6 H* Est GFR (CKD-EPI 2020) 11.96 Glucose 137 H Calcium 9.4 Time Spent with Patient Time Spent with Patient: 35-49 minutes Time was spent: preparing to see the patient(eg.review tests), ordering medications,tests, procedures, referring, communicating with other health outdoor emergency care technician, indepentently interpreting results, counseling the patient and care coordination
[2023-04-14] MEDS: Phytonadione 5 MG TABLET 2.5 MG PO (10:56)
[2023-04-14] MEDS: Insulin Aspart 300 UNITS/3 ML PEN SC ×2 (12:02→17:21)
[2023-04-14 13:10] LABS: HCT 29.8 % (40.0-50.0); HGB 9.2 g/dL (13.5-17.5)
[2023-04-14] MEDS: Normal Saline Flush 10 ML SYR IVP ×2 (13:24→21:05)
--- NOTE | 2023-04-14 13:47 | PTTR_ITS ---
Date of service: 04/14/23 Time of Service: 09:15 PT Notes Visit Reasons: Ambulatory Disfunction, Hyperkalemia,CKD Inpatient Physical Therapy Treatment Note [facility] Date: 04/14/23 PRECAUTIONS: Fall, standard, activity as tolerated, contact precautions SUBJECTIVE: Patient reports feeling fair to middlin. Sitting up in recliner, agreeable to therapy. OBJECTIVE: Red liquid observed collecting in nephrostomy tube, possibly blood. RN notified, advised that this is not patient's baseline fluid appearance. RN stated they will keep it under close observation. PAIN: None reported except occassional sharp, burning pain over left nicolas which causes patient to wince. Reported to last 3-5 seconds and then resolve. Does not appear to be related to movement. GAIT Assistive Device: Front wheeled walker Weight bearing: full Assist: CGA Distance: 6 feet Deviation: Markedly improved over the last few days. Still reduced stride length, reduced step height, but patient is much more confident putting weight through left leg today, able to tolerate more steps, able to hear instructions without increased verbal indications of anxiety. THEREX: With focus on functional mobility, sit to stands x5. Standing foot taps to 8 step stool 2x5 bilaterally. Spent time educating patient on recruitment techniques to get feet up higher. THERACT: Brought patient a grounds supervisor and a dressing stick. Instructed patient how to don shoes with grounds supervisor, doff with dressing stick. Patient would benefit from long handled shoe horn and elastic laces. Discussed elastic laces with of patient. ASSESSMENT: Patient tolerates therapy well PLAN: Continue building functional activity tolerance, strengthening per plan of care. TREATMENT CODE/TIME: 34738 Ther Ex 30, 49882 TherAct 14, 28738 Gait 15 beginning at 9:15
[2023-04-14 15:14] VITALS: BP 103/68; PULSE 83; RESP 20; TEMP 36.3; O2SAT 98
[2023-04-14] MEDS: Pravastatin 40 MG TAB PO (21:02)
[2023-04-14] MEDS: Insulin Glargine 300 UNITS/3 ML PEN 39 UNITS SC (21:04)
[2023-04-14] MEDS: Gabapentin 100 MG CAP 200 MG PO (21:04)
[2023-04-14] MEDS: Melatonin 3 MG TAB 6 MG PO (21:04)
[2023-04-14] MEDS: Tamsulosin 0.4 MG CAPCR PO (21:04)
[2023-04-14 23:30] VITALS: BP 98/61; PULSE 81; RESP 20; TEMP 36.1; O2SAT 98
[2023-04-15 06:45] LABS: Prothrombin Time 30.7 sec (9.3-11.0)
[2023-04-15 07:01] LABS: Anion Gap 13.6 mmol/L (3-11); CO2 20.4 mmol/L (21.0-32.0); Calcium 9.2 mg/dL (8.5-10.1); Chloride 102 mmol/L (98-107); Estimated GFR 13.34 (mL/min/1.73m2); Glucose 128 mg/dL (74-106); Potassium 4.3 mmol/L (3.5-5.1); Sodium 136 mmol/L (136-145)
[2023-04-15 07:27] LABS: BUN 103 mg/dL (7-18); CREATININE 4.2 mg/dL (0.70-1.30)
[2023-04-15 07:36] VITALS: BP 120/76; PULSE 84; RESP 18; TEMP 36.5; O2SAT 96
[2023-04-15] MEDS: Linezolid 600 MG TAB PO ×2 (07:46→21:21)
[2023-04-15] MEDS: Finasteride 5 MG TAB PO (07:46)
[2023-04-15] MEDS: Docusate Sodium 100 MG CAP PO (07:47)
[2023-04-15] MEDS: Multivitamin TAB 1 TAB PO (07:47)
[2023-04-15] MEDS: Omeprazole 20 MG CAPCR PO (07:47)
[2023-04-15] MEDS: Metoprolol CR 100 MG TABCR PO (07:47)
[2023-04-15 09:37] VITALS: RESP 20
--- NOTE | 2023-04-15 10:42 | PHA.REVIEW2 ---
Pharmacy Admission Review - Admission Clinical Review (Last Reviewed 04/11/23 @ 00:58 by Mor Adames MD) DVT prophylaxis (Acute) History of fall (Acute) Noninfected skin tear of left lower extremity (Acute) Fall (Acute) Advance care planning (Acute) Skin tear of left lower leg without complication (Acute) Discharge planning issues (Acute) VRE (vancomycin resistant enterococcus) culture positive (Acute) Hydronephrosis, left (Acute) Hyperphosphatemia (Acute) Do not resuscitate (Acute) Pressure ulcer of right ischium (Acute) Chronic indwelling Knox catheter (Acute) Venous insufficiency (chronic) (peripheral) (Acute) No Known Allergies Allergy (Verified 04/10/23 13:42) Resuscitation Status DNR Height 6 ft 2 in Weight 145.24 kg - Comments Comments/Follow Ups: Warfarin for A-fib, rate controlled, some low HR's in the 50's, currently HR 84. INR was supertherapeutic, Warfarin currently on hold, blood tinged urine in nephrostomy bag. Last H/H 9.2/29.8, no levels today. Monitor electrolytes, SCr, diuresis, HR, INR, H/H, Blood sugars - Renal Dosing Renal Dosing: BUN 103 mg/dL (7-18) H* 04/15/23 06:16 Creatinine 4.2 mg/dL (0.70-1.30) H* 04/15/23 06:16 SCr 4.2, CrCl~20.25ml/min - Anticoagulation Anticoagulation: Hgb 9.2 g/dL (13.5-17.5) L 04/14/23 13:05 Hct 29.8 % (40.0-50.0) L 04/14/23 13:05 Plt Count 146 10^3/uL (130-400) 04/14/23 06:12 INR 3.0 (0.9-1.1) H 04/15/23 06:16 Creatinine 4.2 mg/dL (0.70-1.30) H* 04/15/23 06:16 Medications: Warfarin (INR supertherapeutic 04/13 & 04/14, Vit K oral given, Warfarin held, INR currently 3.0) - Opiate Usage Evaluate Pain Scale/Pains Meds: N/A - Relevant Labs Sodium 136 mmol/L (136-145) 04/15/23 06:16 Potassium 4.3 mmol/L (3.5-5.1) 04/15/23 06:16 Chloride 102 mmol/L (98-107) 04/15/23 06:16 Phosphorus 5.8 mg/dL (2.6-4.7) H 04/11/23 06:32 Magnesium 2.0 mg/dL (1.8-2.4) 04/15/23 06:16 Phosphorous levels and dose adjustments for Phos-lo usually at 2-3 week intervals, so no need to really check phos level at this time. Current dose is Phos-lo is 667mg twice a day - DM Control DM Control: Glucose 128 mg/dL (74-106) H 04/15/23 06:16 Finger Stick Blood Glucose 115 Finger Stick Blood Glucose 115 Finger Stick Blood Glucose 115 DM Control: Reviewed (Lantus and Aspart with some minor adjustments since admission) - Cardiac Review BP, HR, EF%: Intervened (Metoprolol needs hold parameters, Diurectics on hold) - Qtc Review QTc: Reviewed (QTC 441) - IV to PO Switch IV Medications: N/A (all orals) - Home Meds Home Med List reviewed: Reviewed (Amlodipine, Potassium-level was elevated on admission, Jardiance-has insulin) - Comments Comments/Follow Ups: Torsemide and Metolazone on HOLD, Warfarin also, anticipate restarting Warfarin Saturday evening. Awaiting SNF placement Antibiotic Activity - Pharmacy Antibiotic Review Pharmacy Antibiotic Activity: C/S review (Urine-VRE on Linezolid day 5/6) - Antibiotic Information Antibiotic Review Info: Linezolid day 5/6 for VRE urine
--- NOTE | 2023-04-15 10:50 | W.PM.PROGNOT ---
Date of Service Date of service: 04/15/23 Time of Service: 10:50 Assessment and Plan Assessment and plan (1) Hydronephrosis, left: Status: Acute Assessment and plan: S/P nephrostomy on left Draining well For outpatient f/u with [facility] [place] (Dr Santos is arranging this). From [facility] - To reduce the rate of tube malfunction and associated infectious complications, some institutions routinely flush nephrostomy tubes with sterile?once or twice a day, but there is little evidence to support this practice - and after speaking with Dr. Wilson @ [facility] [place] he recommends NOT flushing the tube. Follow output (2) Noninfected skin tear of left lower extremity: Status: Acute Assessment and plan: Continue wound care. (3) VRE (vancomycin resistant enterococcus) culture positive: Status: Acute Assessment and plan: Continue linezolid. Patient's did notify us that there was possibly an interruption in his antibiotic regimen because linezolid was not available at the pharmacy. On discharge, we will need to make sure that his SNF has it in stock. (4) Atrial fibrillation: Status: Chronic Assessment and plan: INR 3.0 Hold warfarin again tonight. Rate controlled 55-80 (5) Chronic anticoagulation: Status: Chronic Assessment and plan: INR supratherapeutic. 3.0 Hold warfarin again tonight. Follow INR (6) Anemia: Status: Chronic Assessment and plan: Hgb stable @ 9.2 Urine continues to have a pink tinge Follow H&H (7) Chronic kidney disease: Status: Chronic Assessment and plan: BUN 103 Creatinine 4.2 Baseline for him Follow renal fxn Resume Torsemide (8) Diabetes mellitus type 2 in obese: Assessment and plan: Continue basal bolus insulin (39 units of lantus at night + SSI). Glucose ~ 170-200 Continue to monitor and adjust accordingly (9) Fall: Status: Acute Assessment and plan: PT following. Will need placement. (10) Hyperphosphatemia: Status: Acute Assessment and plan: Continue phoslo. (11) Chronic indwelling Knox catheter: Status: Acute Assessment and plan: No evidence of a UTI. Followed by urology. (12) Pressure ulcer of right ischium: Status: Acute Assessment and plan: Present on previous admission. Continue wound care. (13) Essential hypertension, benign: Assessment and plan: Continue current regimen. (14) Hyperlipidemia: Assessment and plan: Continue pravastatin. (15) LUCAS on CPAP: Assessment and plan: Continue Home CPAP (16) DVT prophylaxis: Status: Acute Assessment and plan: On warfarin - being held at present time - INR 3.0 (17) Discharge planning issues: Status: Acute Assessment and plan: DNR Awaiting SNF placement. Discussed with Dr Miller Subjective Subjective Patient reports: no new complaints, tolerating a regular diet and afebrile; denies diarrhea, nausea, vomiting or shortness of breath Interval history since last seen: No complaints, states is feeling better, continues to feel weak. in to visit most of the day. Exam Narrative Exam Narrative: General: Pleasant obese male who is A&Ox3, NAD HEENT: EOMI, MMM Heart: RRR, no m/r/g Lungs: CTAB Abdomen: soft, nontender, nondistended Extremities: no edema BLEs; dressing distal LLE. No evidence of hematoma/abrasion to L knee Objective Last Vital Signs Temp 36.5 C 04/15/23 07:36 Pulse 84 04/15/23 07:36 Resp 18 04/15/23 07:36 BP 120/76 04/15/23 07:36 Pulse Ox 96 04/15/23 07:36 Laboratory Results - last 24 hr 04/14/23 04/15/23 04/15/23 13:05 06:16 06:16 Hgb 9.2 L Hct 29.8 L PT 30.7 H INR 3.0 H Sodium 136 Potassium 4.3 Chloride 102 Carbon Dioxide 20.4 L Anion Gap 13.6 H BUN 103 H* Creatinine 4.2 H* Est GFR (CKD-EPI 2020) 13.34 Glucose 128 H Calcium 9.2 Magnesium 2.0 Time Spent with Patient Time Spent with Patient: 25-34 minutes Time was spent: preparing to see the patient(eg.review tests), ordering medications,tests, procedures, referring, communicating with other health patient care provider, indepentently interpreting results, counseling the patient and care coordination
[2023-04-15] MEDS: Insulin Aspart 300 UNITS/3 ML PEN SC ×2 (12:02→17:00)
--- NOTE | 2023-04-15 15:04 | PT.INTREAT ---
Date of service: 04/15/23 Time of Service: 11:10 PT Notes Visit Reasons: Ambulatory Disfunction, Hyperkalemia,CKD Inpatient Physical Therapy Treatment Note [facility] Date: 04/15/23 PRECAUTIONS: Fall, standard, activity as tolerated SUBJECTIVE: Patient supine in bed, agreeable to therapy OBJECTIVE: PAIN: Patient reports pain is improving. BED MOBILITY/TRANSFERS Rolling L/R: modified independent Supine-sit: mod assist Sit-supine: modified independent Sit-stand: contact guard Stand-sit: contact guard with verbal cues for safety Bed-Chair: contact guard with verbal cues for safety Chair-bed: contact guard with verbal cues for safety THEREX: Patient participates in some bed-level exercises including heel slides, hip ab/adduction, glute sets, quad sets. Move to seated EOB, patient performs long arc quads, heel raises, toe raises, sit to stands. THERACT: Patient participates in stand pivot transfer training from bed to chair, chair to bed. Patient also practices using surveillance monitor to don and doff shoes. ASSESSMENT: Patient tolerates therapy well, resting in recliner at end of treatment with Lashawn present and call mcneal in hand. PLAN: continue strengthening per plan of care TREATMENT CODE/TIME: 96563 TherEx 30 minutes, 44223 Ther Act 10 minutes beginning at 11:10
[2023-04-15 15:38] VITALS: BP 102/64; PULSE 64; RESP 18; TEMP 36.5; O2SAT 100
[2023-04-15] MEDS: Pravastatin 40 MG TAB PO (21:21)
[2023-04-15] MEDS: Tamsulosin 0.4 MG CAPCR PO (21:21)
[2023-04-15] MEDS: Gabapentin 100 MG CAP 200 MG PO (21:21)
[2023-04-15] MEDS: Melatonin 3 MG TAB 6 MG PO (21:22)
[2023-04-15] MEDS: Insulin Glargine 300 UNITS/3 ML PEN 39 UNITS SC (21:22)
[2023-04-16 00:34] VITALS: BP 99/64; PULSE 67; RESP 18; TEMP 36.6; O2SAT 100
[2023-04-16] MEDS: Acetaminophen 325 MG TAB PO (02:25)
[2023-04-16 06:41] LABS: Abs Immature Grans 0.03 10^3/uL (0.0-0.06); Absolute Basophil Count 0.01 10^3/uL (0.0-0.2); Absolute Eosinophil Count 0.19 10^3/uL (0.0-0.7); Absolute Lymphocyte Count 1.28 10^3/uL (1.2-3.4); Absolute Monocyte Count 0.62 10^3/uL (0.1-0.8); Absolute Neutrophil Count 5.68 10^3/uL (1.2-6.7); Basophils % 0.1; Eosinophils % 2.4; HCT 26.8 % (40.0-50.0); HGB 8.5 g/dL (13.5-17.5); Immature Grans % 0.4; Lymphocytes % 16.4; MCH 27.2 pg (27.0-33.0); MCHC 31.7 % (32.0-36.0); MCV 86 fL (80-95); MPV 9.1 fL (8.0-11.0); Monocytes % 7.9; Neutrophils % 72.8; Platelet Count 141 10^3/uL (130-400); RBC 3.12 10^6/uL (4.36-5.78); RDW 18.8 % (11.8-14.1); RDW-SD 58.4 fL; WBC 7.81 10^3/uL (4.4-10.8)
[2023-04-16 06:53] LABS: INR 2.9 (0.9-1.1); Prothrombin Time 29.1 sec (9.3-11.0)
[2023-04-16 06:58] VITALS: BP 100/60; PULSE 54; RESP 19; TEMP 36.5; O2SAT 99
[2023-04-16 07:02] LABS: Anion Gap 13.1 mmol/L (3-11); CO2 20.9 mmol/L (21.0-32.0); Calcium 9.2 mg/dL (8.5-10.1); Chloride 102 mmol/L (98-107); Estimated GFR 14.59 (mL/min/1.73m2); Glucose 117 mg/dL (74-106); Potassium 4.2 mmol/L (3.5-5.1); Sodium 136 mmol/L (136-145)
[2023-04-16 07:13] LABS: BUN 99 mg/dL (7-18); CREATININE 3.9 mg/dL (0.70-1.30)
[2023-04-16] MEDS: Omeprazole 20 MG CAPCR PO (07:42)
[2023-04-16] MEDS: Multivitamin TAB 1 TAB PO (07:42)
[2023-04-16] MEDS: Finasteride 5 MG TAB PO (07:44)
[2023-04-16] MEDS: Docusate Sodium 100 MG CAP PO (07:44)
[2023-04-16] MEDS: Torsemide 20 MG TAB 40 MG PO (07:44)
[2023-04-16] MEDS: Linezolid 600 MG TAB PO (07:45)
[2023-04-16] MEDS: Metoprolol CR 100 MG TABCR PO (07:54)
[2023-04-16 07:55] VITALS: BP 110/80
--- NOTE | 2023-04-16 09:19 | CMPROGNOTE_ITS ---
Date of service: 04/16/23 Time of Service: 09:19 Care Management Progress Note Progress Note Text Progress Note Text: S/O: Sav is lying in bed visiting with his when CM met with him. SNF referral's are pending, no bed offers are made due to limited availability. Per PT, Sav is doing better and working on ambulating 8-9 inch steps. Per pt, discharge home with a (lift assist) can now be considered when medically ready for discharge. Per provider, Sav is medically ready for discharge with outpatient follow up. Sav and his are in favor of discharging home and being met by a lift assist with resumption of full [facility] services. Additionally per Lashawn, they are interested in hiring private Caregivers. CM provided Lashawn with resources and a referral to the [facility]. A: 82 year old male readmitted to [facility] on 04/10/23 hyperkalemia, CKD, Ambulatory Discfuntion, Hydronephrosis P:Anticipate, Sav will require SNF for STR, prior to discharging home. [facility]. Transportation will be dependent on mobility and disposition at time of discharge. CM will follow. 04/16/23 [facility]- No beds [facility]-Left Message for Nusrat Barreto [facility]- Left Message for Kathy Bell-No male [facility]- Left message
[2023-04-16] MEDS: Insulin Aspart 300 UNITS/3 ML PEN SC (11:50)
[2023-04-16] MEDS: Normal Saline Flush 10 ML SYR IVP (14:05)
--- NOTE | 2023-04-16 14:45 | W.PM.DS.N ---
Date of service: 04/16/23 Time of Service: 14:45 DS: Diagnosis Discharge Diagnosis (1) Hydronephrosis, left: Status: Acute (2) Noninfected skin tear of left lower extremity: Status: Acute (3) VRE (vancomycin resistant enterococcus) culture positive: Status: Acute (4) Atrial fibrillation: Status: Chronic (5) Chronic anticoagulation: Status: Chronic (6) Anemia: Status: Chronic (7) Chronic kidney disease: Status: Chronic (8) Diabetes mellitus type 2 in obese: (9) Fall: Status: Acute (10) Hyperphosphatemia: Status: Acute (11) Chronic indwelling Grififn catheter: Status: Acute (12) Pressure ulcer of right ischium: Status: Acute (13) Essential hypertension, benign: (14) Hyperlipidemia: (15) LUCAS on CPAP: Discharge Plan Disposition Patient Disposition: Home W/Home Health Services Condition: Stable Discharge Details Reason For Visit: Ambulatory Disfunction, Hyperkalemia,CKD Admit Date/Time: 04/10/23 18:52 Admit Provider: Mor Adames Attending Provider: Mor Adames Primary Care Provider: Gordo Dominguez Hospital Course Hospital Course: Mr Winkler is an 82 yo male with a PMH of obstructive uropathy (s/o percutaneous nephrostomy tube placement on 04/05/23), afib on warfarin, DM2 insulin requiring, VRE UTI on linezolid, KENNETH on CKD, right heart failure, Moderate pulmonary hypertension, HLD.? He had a long complicated course, ultimately having nephrostomy tube placed after developing acute on chronic renal failure from obstructive urolpathy. His urine last growing VRE organism enterococcus faecium for which he is finishing a 2 week course of linezolid.? He had been treated earlier for Klebsiella UTI.? He was working with PT and on the day of discharge was evaluated for safety on stairs and he did well.? He endorses not lifting his foot away from the stair riser and catching it on the stair.? This caused him to fall and scrape the left nicolas. He denied striking head. No presyncope or syncope. No CP or palpitations.? He returned due to unsafe ambulation secondary to his new left leg discomfort/injury.? In the ED there was no fracture noted.? His lab showed a Hgb of 10.? K of 5.8. INR 2.2. BUN 103. Creatinine 4.5. Attempts were made to find a SNF that would accept him for admission from the ED but this was not successful.? He was therefore admitted for observation.? He continued to work with PT and now is safe for discharge to home with resumption of home health services. He will be transported by his with lift assist to meet them at the house for facilitate safe entry. Urology placed?an outpatient referral to see Dr. Pulliam at [facility].?He does not need a specific follow-up appointment locally with DR Santos until after he has completed his care with Dr Pulliam. discussed with DR Traore Home Meds and New Rx's Prescriptions: Continued finasteride 5 mg tablet 5 mg PO DAILY Qty: 90 3RF multivitamin [Daily Multiple] 1 EACH tablet 1 ea PO DAILY omeprazole 20 MG capsule,delayed release(DR/EC) 20 mg PO DAILY melatonin 5 mg capsule 5 mg PO HS tamsulosin 0.4 mg capsule 0.4 mg PO HS Qty: 90 3RF lidocaine HCl [Glydo] 2 % jelly in applicator 10 ml intra-urethral ONCE Qty: 120 0RF Rx Instructions: as a single dose - one dose per catheter change. lactulose 10 gram packet 10 g PO DAILY PRN (Reason: constipation) Qty: 30 1RF metoprolol succinate [Toprol XL] 100 mg tablet extended release 24 hr 100 mg PO DAILY Qty: 90 3RF pravastatin 40 mg tablet 40 mg PO QPM Qty: 90 3RF torsemide 20 mg tablet 40 mg PO DAILY Qty: 360 3RF acetaminophen [Tylenol] 325 mg Tablet 650 mg PO Q4H PRN PRNQty: 0 0RF docusate sodium [Colace] 100 mg capsule 100 mg PO DAILY insulin aspart U-100 [Novolog FlexPen U-100 Insulin] 100 unit/mL (3 mL) insulin pen 20 sliding scale dose SUBCUT DIRECTED Patient Comments: INJECT 30 UNITS SUBCUTANEOUSLY BEFORE MEALS Rx Instructions: -No rapid acting insulin with breakfast or lunch. -20 units + SSI 2:50>150 with dinner. insulin glargine [Lantus Solostar U-100 Insulin] 100 unit/mL (3 mL) insulin pen 39 unit SUBCUT HS Patient Comments: INJECT 40 UNITS SUBCUTANEOUSLY EVERY EVENING linezolid 600 mg tablet 600 mg PO BID Qty: 24 0RF polyethylene glycol 3350 17 gram Powder In Packet 17 g PO DAILY Qty: 0 0RF gabapentin 100 mg Capsule 200 mg PO HS Qty: 30 0RF Changed warfarin [Jantoven] 5 mg Tablet 2.5 mg PO QPM Qty: 0 0RF Held potassium chloride [Klor-Con M10] 10 mEq tablet,ER particles/crystals 30 meq PO DAILY Qty: 270 0RF Hold Instructions: defer to outpatient team Rx Instructions: dose increase 08/30/22 metolazone 5 mg tablet 5 mg PO .q Th, Mon PRN (Reason: weight gain 3lbs/day or 7 lbs/week) Hold Instructions: defer to outpatient team No Action (DME) pen needle, diabetic [Comfort EZ Pen [place]] 33 gauge x 3/16 needle See Rx Instructions .ROUTE .MEDSUPPLY Qty: 100 3RF Rx Instructions: inject once/day (DME) blood-glucose meter [whodoyouuch Ultra2 Meter] 1 EACH kit 1 ea Miscellaneous DAILY Qty: 1 (DME) lancets [OneTouch UltraSoft Lancets] misc 1 ea Miscellaneous DAILY Qty: 90 4RF Rx Instructions: test daily before breakfast 5-hydroxytryptophan (5-HTP) [5-HTP] 100 mg capsule 100 mg PO DAILY coenzyme Q10 [Co Q-10] 10 mg capsule 10 mg PO DAILY (DME) OneTouch Ultra Test Strip 1 ea Miscellaneous DAILY Qty: 90 3RF Rx Instructions: test daily before breakfast Jardiance 25 mg tablet 25 mg PO QAM Qty: 90 3RF Hold Instructions: Hold until renal function allows resumption; likely resume at 10mg daily (DME) FreeStyle [place] 2 [place] Misc See Rx Instructions .MEDSUPPLY Qty: 1 0RF Rx Instructions: As directed (DME) FreeStyle Shantell 2 Sensor Kit See Rx Instructions .MEDSUPPLY Qty: 1 11RF Rx Instructions: As directed Discharge Instructions Instructions: Acute Kidney Injury (DC), Nephrostomy Tube Care (DC) Additional Instructions: Dr Santos's office placed outpatient referral to see DR Pulliam for outpatient urology follow up at [facility] [place], the office will call you to arrange the appointment. Resume coumadin 2.5 mg daily and check INR as directed by your outpatient team that oversees your coumadin management. Continue routine griffin catheter and nephrotomy tube care as previously directed. Wound care: To coccyx, right and left ischium -- Cleanse with normal saline; apply Anasept Gel; cover with foam island dressing - change daily Right anterior lower leg - Cleanse with normal saline; apply silver impregnated foam island dressing ( 10x25 ) - change every two days and prn Stand Alone Forms: Nursing Discharge Form Referrals: Jovani Pulliam MD [ [facility] STAFF PHYSICIAN] - (referral placed by Dr Santos last week. A Nurse from [facility] [place] [facility] will call you with an Appointment) Gordo Dominguez MD [Primary Care Provider] - 04/24/23 9:20 am Activity:: Activity as Tolerated Equipment/Supplies:: No Equipment Needed Diet:: As Tolerated Discharge Orders Discharge Orders: Discharge Order (Routine); Ordered 04/16/23 Ordered By: Esha Aaron DS: Summary Time Spent with Patient providing and/or coordinating discharge services: Greater than 30 minutes Status at Discharge Functional status at discharge: uses cane/walker Overall status at discharge: patient is progressing back to baseline Mental Status: mental status grossly normal Speech and Movement: speech and movement normal Mood: congruent mood Affect: normal affect Exam Const General: cooperative and no acute distress Nutritional Appearance: obese Orientation: alert, awake and oriented x3 HENMT Head: normal to inspection, normocephalic and atraumatic Mouth: oral mucosae normal Eyes General: appearance normal, both eyes and all related structures Neck Neck: normal visual inspection and full ROM Chest Chest: normal inspection of the chest Resp Effort & Inspection: normal respiratory effort Cardio Rate: regular rate Rhythm: regular rhythm GI Inspection: obesity Palpation: soft General: other (left nephrostomy tube intact, blood tinged urine, ) Penis: other (griffin catheter in place, draining med yellow urine) Skin Lesions: lesion noted (left anterior lower extremity) Neuro General: patient alert, patient awake and patient oriented x3 Cognition: normal cognition Speech: speech normal Motor: muscle tone normal throughout Psych Mental Status: mental status grossly normal Speech and Movement: speech and movement normal Mood: congruent mood Affect: normal affect DS: Data Vitals/I&O Vitals and I&O: Vital Signs Temperature 36.5 C 04/16/23 06:58 Temperature Source Tympanic 04/16/23 06:58 Pulse 54 L 04/16/23 06:58 Pulse Rhythm Irregular 04/16/23 08:50 Respiratory Rate 19 04/16/23 06:58 Respiratory Effort Normal 04/16/23 08:50 Respiratory Depth Normal 04/16/23 08:50 Respiratory Pattern Normal 04/16/23 08:50 Blood Pressure 110/80 04/16/23 07:55 Blood Pressure Position Supine 04/10/23 13:01 Pulse Oximetry 99 04/16/23 06:58 Oxygen Delivery Method Room Air 04/16/23 06:58 Oxygen Flow Rate 0 04/16/23 06:58 Fraction of Inspired Oxygen (FIO2) 21 04/15/23 09:37 Pain Level 0 04/16/23 12:39 Intake & Output 04/15/23 04/16/23 04/16/23 23:59 11:59 23:59 Intake Total 150 / 270 120 / 270 Output Total 92 / 0 925 / 1700 775 / 1700 Balance -925 / -2050 -775 / -1430 -655 / -1430 Weight 143.5 kg Intake: Oral 120 / 120 Injectate 150 / 150 Nephrostomy 150 / 150 Output: Drainage 50 / 200 100 / 100 Nephrostomy 50 / 200 100 / 100 Urine 875 / 1850 825 / 1525 700 / 1525 Stool 75 / 75 Other: Urine Color Yellow Yellow Yellow Urine Appearance Clear Clear Clear Urine Odor None None None Stool Size Large Stool Characteristics Soft Formed Voiding Methods Indwelling Catheter Indwelling Catheter Indwelling Catheter Data Completed and Pending Labs on day of discharge: Labs from last 24 hours 04/16/23 04/16/23 04/16/23 06:07 06:07 06:07 WBC 7.81 RBC 3.12 L Hgb 8.5 L Hct 26.8 L MCV 86 MCH 27.2 MCHC 31.7 L RDW 18.8 H Plt Count 141 MPV 9.1 Immature Gran % 0.4 Neutrophils % 72.8 Lymphocytes % 16.4 Monocytes % 7.9 Eosinophils % 2.4 Basophils % 0.1 Nucleated RBC % 0.0 Absolute Neutrophils 5.68 Absolute Lymphocytes 1.28 Absolute Monocytes 0.62 Absolute Eosinophils 0.19 Absolute Basophils 0.01 PT 29.1 H INR 2.9 H Sodium 136 Potassium 4.2 Chloride 102 Carbon Dioxide 20.9 L Anion Gap 13.1 H BUN 99 H* Creatinine 3.9 H* Est GFR (CKD-EPI 2020) 14.59 Glucose 117 H Calcium 9.2 Magnesium 2.0 PFSH All Active Problems (Updated 04/14/23 @ 15:52 by Lurdes Giordano NP) DVT prophylaxis (Acute) History of fall (Acute) Noninfected skin tear of left lower extremity (Acute) Fall (Acute) Advance care planning (Acute) Skin tear of left lower leg without complication (Acute) Discharge planning issues (Acute) Hyperkalemia (Acute) VRE (vancomycin resistant enterococcus) culture positive (Acute) Hydronephrosis, left (Acute) Hyperphosphatemia (Acute) Do not resuscitate (Acute) Pressure ulcer of right ischium (Acute) Chronic indwelling Griffin catheter (Acute) Acute renal failure (Acute) Acute UTI (Acute) Diabetes mellitus (Chronic) Atrial fibrillation (Chronic) on coumadin Chronic kidney disease (Chronic) 2020- borderline stage 4 Venous insufficiency (chronic) (peripheral) (Acute) Nail dystrophy (Acute) COVID-19 (Acute ~08/05/22) Thumb pain (Acute) Right heart failure (Acute) Urinary retention (Acute) 11/2021, ultrasound shows significant pretty and post void residual- minimal response to voiding Kidney stones (Chronic) Longstanding history of multiple stones 11/2021 ultrasound showed multiple stones in kidney, 1 stone possibly in right ureter Anemia (Chronic) Chronic mild anemia, associated with CKD Obstructive sleep apnea (Chronic) cpap Acute on chronic heart failure with preserved ejection fraction (Acute) Hives (Acute) Obesity (Acute 02/11/13) Obstructive nephropathy (Acute) Moderate pulmonary arterial systolic hypertension (Chronic) Chronic anticoagulation (Chronic) Polyp of colon (Chronic) Rosacea (Chronic) Constipation (Chronic) CHF (congestive heart failure) (Chronic) Medical History 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 Daughter No problems noted. Social History Smoking/Tobacco Use Status: Never Second Hand Exposure: No Smoking risk assessment performed?: Yes Alcohol Intake: current Alcohol Intake frequency: holidays/special occasions only Drug use: Never Substance use type: does not use Caregiver/Support person: Yes Household members: spouse Housing: house Communication Needs: Hard of Hearing Do you need help understanding health information?: Often Pets and animals: No Sexually active: No What is your relationship status?: How often do you talk on the phone with friends or family?: decline to answer How often do you get together with friends or relatives?: decline to answer How often do you attend judaism or gnosticism services?: decline to answer Do you belong to any clubs or organized social groups?: decline to answer Panel score (0-1 are the most socially isolated patients): 1 What type of physical activity do you participate in: walking Duration: < 15 minutes/day Frequency: daily Special amor needs: No Do you feel safe at home: Yes Do you feel safe in your relationship?: Yes Time Spent with Patient Time Spent with Patient: 45-69 minutes Time was spent: preparing to see the patient(eg.review tests), obtaining and/or reviewing separately otained hiistory, ordering medications,tests, procedures, indepentently interpreting results, counseling the patient and care coordination
--- NOTE | 2023-04-16 15:35 | PDOC.CMDIS ---
Date of service: 04/16/23 Time of Service: 15:36 LACE Index Scoring Tool Questions: Length of Stay (in days): 4 - 6 Was the patient admitted via the E.D.?: Yes Comorbidities: Diabetes w/o Complication, Congestive Heart Failure and Liver or Renal Disease E.D. Visits: 3 Answers: Total Score: 15 Risk of Readmission: High Risk Care Management Discharge Plan Discharge Plan: Sav is discharged home with resumption of [facility] RN,PT,OT,DENTAL OFFICE RECEPTIONIST services. He is transported via private vehicle with with a plan to be met by Luis Angel Cabrales for a Lift Assist. He will follow up with community providers and his discharge plan of care as instructed. PCP f/u will be on 04/24/23, as previously scheduled and an outpatient referral to see Dr. Pulliam at [facility] was made by [facility]. sent a referral to [facility] and provided Lashawn with resources for increased home support, if needed. Patient/Family Education Needs: Review discharge instructions, limitations, medications and plan to follow up with community providers. Discuss ask me three and goals of self care. Services Needed at Discharge: Home Health Care Services (Resumption [facility] RN,PT,OT,DENTAL OFFICE RECEPTIONIST)
--- NOTE | 2023-04-16 17:34 | PT.INTREAT ---
Date of service: 04/16/23 Time of Service: 10:15 PT Notes Visit Reasons: Ambulatory Disfunction, Hyperkalemia,CKD Inpatient Physical Therapy Treatment Note [facility] Date: 04/16/23 PRECAUTIONS: Fall, standard, activity as tolerated, enteric contact precautions SUBJECTIVE: Patient reports feeling fair to middlin' OBJECTIVE: PAIN: none reported BED MOBILITY/TRANSFERS Rolling L/R: standby Supine-sit: mod assist Sit-supine: min assist with verbal cues Sit-stand: contact guard Stand-sit: contact guard Bed-Chair: contact guard Chair-bed: contact guard THEREX: Patient participates in sit to stands, foot taps to an 8 inch step, standing heel raises, standing high knees, standing hamstring curls. THERACT: Patient participates in transfer training including supine to sit, sit to supine, bed to chair, chair to bed. ASSESSMENT: Patient tolerates therapy well PLAN: Continue strengthening per plan of care TREATMENT CODE/TIME: 08941 Ther Act 11 minutes and 70491 Ther Ex 15 minutes beginning at 10:15
--- NOTE | 2023-04-19 10:25 | INDS_ITS ---
Date of service: 04/17/23 PT Notes Visit Reasons: Ambulatory Disfunction, Hyperkalemia,CKD Physical Therapy Inpatient Discharge Summary Date: 04/17/2023 Dates of service: 04/11/2023 through 04/16/2023 This is a clinical summary of care provided for the duration of dates listed above. No charge was made in the completion of this documentation. Referring Doctor:? Ru Adames,? PT Orders: PT CONSULT: Eval/Treat Precautions: Fall. Standard.? Activity as tolerated.? Fearful of falling. Patient Profile/Admitting Diagnosis:? Returns to the ED on 04/10/2023 due to a loss of balance that caused and another caregiver to slowly lower patient onto the floor at home last night.? Patient was discharged from this hospital on . S/P nephrostomy tube placement on 04/05/23 from a down and back surgery at [facility] [place].?? Patient is a 82-year-old male who presented to the ED on 03/21/2023 due to 5 days worth of shortness of breath and is admitted admitted for the management of atrial fibrillation, chronic kidney disease, right-sided heart failure, anemia, moderate pulmonary arterial systolic hypertension, obstructive neuropathy, hyperlipidemia, type II DM, and LUCAS. PMHX: All Active Problems? Fever (Acute) Chronic indwelling Knox catheter (Acute) Symptomatic anemia (Acute) Acute renal failure (Acute) Acute UTI (Acute) Diabetes mellitus (Chronic) Atrial fibrillation (Chronic) on coumadin Chronic kidney disease (Chronic) 2020- borderline stage 4 Venous insufficiency (chronic) (peripheral) (Acute) Nail dystrophy (Acute) COVID-19 (Acute ~08/05/22) Thumb pain (Acute) Right heart failure (Acute) Urinary retention (Acute) 11/2021, ultrasound shows significant pretty and post void residual- minimal response to voiding Kidney stones (Chronic) Longstanding history of multiple stones 11/2021 ultrasound showed multiple stones in kidney, 1 stone possibly in right ureter Anemia (Chronic) Chronic mild anemia, associated with CKD Obstructive sleep apnea (Chronic) cpapAcute on chronic heart failure with preserved ejection fraction (Acute) Hives (Acute) Obesity (Acute 02/11/13) Obstructive nephropathy (Acute) Moderate pulmonary arterial systolic hypertension (Chronic) Chronic anticoagulation (Chronic) Polyp of colon (Chronic) Rosacea (Chronic) Constipation (Chronic) CHF (congestive heart failure) (Chronic) Medical History? Atrial fibrillation BPH (benign prostatic hyperplasia) Diabetes mellitus type 2 in obese Essential hypertension, benign GERD (gastroesophageal reflux disease) Hyperlipidemia Nephrolithiasis Obesity hypoventilation syndrome LUCAS on CPAP Palliative care patient Surgical History? Cholecystectomy (~1985) Colonoscopy - MAC (~2002) Replacement of total knee joint B/L Tonsillectomy and adenoidectomy Social History/Home Situation: Patient lives with Lashawn in a 1 floor house in [facility] with 2 steps to enter, no rails.?? 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 They have one supportive daughter who lives locally.? states that she uses a device that she holds up to him so that he can pull on it to sit up in bed.? Equipment Owned/DME: Bed that has changeable angles at the head and the knee but is not able to move up nor down Motorized wheelchair FWW SPC Subjective:? NT. See most recent FINISHED CARPET INSPECTOR notes. Objective:? General Observation: NT. See most recent FINISHED CARPET INSPECTOR notes. Mental Status: NT. See most recent FINISHED CARPET INSPECTOR notes. Pain: NT. See most recent FINISHED CARPET INSPECTOR notes. ROM: Right Lower Extremity: Hip flexion up to 60 degrees. Hip abduction WFL. Knee flexion 0-90. Ankle dorsiflexion WFL. Ankle plantarflexion WFL. Left Lower Extremity: Hip flexion about 30 degrees. Hip abduction 10 degrees. Knee flexion 15-20 degrees. Ankle dorsiflexion WFL. Ankle plantarflexion WFL. Strength: Right Lower Extremity: Hip flexors 3-/5. Hip abductors 4/5. Knee flexors 3-/5. Knee extensors 4-/5. Ankle dorsiflexors 4-/5. Ankle plantarflexors 4-/5. Left Lower Extremity:Hip flexors 2-/5. Hip abductors 3-/5. Knee flexors 3-/5. Knee extensors 4-/5. Ankle dorsiflexors 4-/5. Ankle plantarflexors 4-/5. BED MOBILITY/TRANSFERS? Rolling L/R: modified independent Supine-sit: modified independent? Sit-supine: modified independent ? Sit-stand: contact guard ? Stand-sit: contact guard with verbal cues for safety ? Bed-Chair: contact guard with verbal cues for safety ? Chair-bed: contact guard with verbal cues for safety ? GAIT? Assistive Device: FWW? Weight bearing: FWB Assist: ?contact guard assist ? Distance:? Up to 20 feet ?Balance:? Static Sitting: Good Dynamic Sitting: Fair Static Standing: Fair Dynamic Standing: Poor Assessment:? Patient has fearfulness of falling and has a tendency to get so anxious about transferring and walking,? needs maximal encouragement to safely complete mobility performance.? Able to bear weight through R LE during transfers.? Now requires only contact guard assist for safe transfers.? Takes time to trust caregivers before he gets confident about moving about with them.? S/P nephrostomy tube placement on 04/05/23 from a down and back surgery at [facility] [place].? Patient is a 82-year-old male recently admitted for management of atrial fibrillation, chronic kidney disease, right-sided heart failure, anemia, moderate pulmonary arterial systolic hypertension, obstructive neuropathy, hyperlipidemia, type II DM, and LUCAS.? He requires services and is appropriate for transition to SNF for continued rehabilitation once acceptance for placement is made. Patient presents with clinical signs and symptoms consistent with curren t/admitting diagnoses that have resulted to mobility limitations, gait instability, generalized weakness, and impairment of motor control as demonstrated by the following impairment level findings: 1.? Decreased strength to B LE major muscle groups 2.? Impaired sitting/standing balance 3.? Impaired activity tolerance/endurance 4.? Obesity 5.? Shortness of breath 6.? fearfulness of falling 7.? Generalized pain Impairments are contributing to the following functional limitations: 1.? Dependent bed mobility skills 2.? Increased dependence with transfers 3.? Inability to safely ambulate without assistive device and physical assistance 4.? Increase completion time for mobility ADL performance 5.? Increased fall risk 6.? Inability to negotiate steps alone safely 7.? AMPAC score of 69% deficit Goals: Goals X1 week 1. Supine-Sit contact guard assist MET 2. Sit-Supine contact guard assist MET 3. Sit-Stand contact guard assist MET 4. Stand-Sit contact guard assist with FWW MET 5. Bed-Chair contact guard assist with FWW MET 6. Chair-Bed contact guard assist with FWW MET 7. Contact guard assist gait on level surface with use of FWW for at least 30 feet without report of pain nor dyspnea NOT MET 8. Contact guard assist stair negotiation while holding onto bilateral rails for at least 3 steps without report of pain nor dyspnea NOT MET DISCHARGE RECOMMENDATIONS: [] ? Home with no services [] [] ? Home with services [specify] [] ? Home with outpatient PT [] [X] ? SNF for continued rehabilitation.? Patient will benefit from halfway facility placement for continued skilled physical therapy services in order to progress mobility level, strength, and balance in preparation for a safe discharge to home. [] ? Assisted Care [] [] ? SNF versus LTC based on ability to participate and progress [] TREATMENT CODE/TIME: NC Thank you for the opportunity to participate in the care of this patient. Madhavi Victoria PT, DPT, CLT [facility] [place], [place]
== END 2023-04-16 16:42 | disposition home health service (06) ==
LOC: ER 15:17 → MS 20:14
PROVIDERS: Emergency Medicine Emergency Medical Services; Internal Medicine; Nurse Practitioner Family; Admitting Provider Family Medicine; Emergency Provider Emergency Medicine; PCP Family Medicine; Visit Provider Family Medicine
DX: S81.812A Laceration without foreign body, left lower leg, initial encounter; W10.8XXA Fall (on) (from) other stairs and steps, initial encounter; N13.30 Unspecified hydronephrosis; Z79.01 Long term (current) use of anticoagulants; Z93.6 Other artificial openings of urinary tract status; E11.22 Type 2 diabetes mellitus with diabetic chronic kidney disease; E66.9 Obesity, unspecified; Z68.41 Body mass index [BMI] 40.0-44.9, adult; I48.20 Chronic atrial fibrillation, unspecified; E83.39 Other disorders of phosphorus metabolism; L89.899 Pressure ulcer of other site, unspecified stage; I12.9 Hypertensive chronic kidney disease with stage 1 through stage 4 chronic kidney disease, or unspecified chronic kidney disease; G47.33 Obstructive sleep apnea (adult) (pediatric); E78.5 Hyperlipidemia, unspecified; Z79.4 Long term (current) use of insulin; N17.9 Acute kidney failure, unspecified; I27.20 Pulmonary hypertension, unspecified; B95.2 Enterococcus as the cause of diseases classified elsewhere; Z16.21 Resistance to vancomycin; Z66 Do not resuscitate; N39.0 Urinary tract infection, site not specified; N18.4 Chronic kidney disease, stage 4 (severe); D63.1 Anemia in chronic kidney disease; K59.09 Other constipation; I87.2 Venous insufficiency (chronic) (peripheral); E87.5 Hyperkalemia; N40.0 Benign prostatic hyperplasia without lower urinary tract symptoms; Z96.653 Presence of artificial knee joint, bilateral
CPT/HCPCS: 36415; 80048; 80053; 90471; 93005; 96372; 97110; 97116; 97162; 97163; 97530; 99285; 73590; 74176; 81003; 81015; 83735; 84100; 85014; 85018; 85025; 85610; 87086; 93010; 99222; 99232; 99233; 99239; G0378

== ENCOUNTER 2023-05-03 14:12 | Outpatient (REF) | payer MEDICARE, SELFPAY ==
[2023-05-03 14:38] LABS: Bilirubin Negative (Negative); Blood Moderate (Negative); Clarity Cloudy (Clear); Glucose 500 mg/dL (Negative); Ketones Negative (Negative); Leukocyte Esterase Moderate (Negative); Nitrite Negative (Negative); Urobilinogen 0.2 mg/dL (Up to 0.2)
[2023-05-03 14:41] LABS: Bilirubin Negative (Negative); Blood Large (Negative); Clarity Cloudy (Clear); Glucose 500 mg/dL (Negative); Ketones Negative (Negative); Leukocyte Esterase Large (Negative); Nitrite Negative (Negative); Specific Gravity 1.015 (1.005-1.025); Urobilinogen 0.2 mg/dL (Up to 0.2)
[2023-05-03 14:53] LABS: Bacteria Moderate HPF (Negative); C & S Indicated? Yes; Casts 0-2 Hyaline LPF (Negative); Crystals Negative HPF (Negative); Epithelial Cells Negative HPF (Negative); Mucus Trace (Negative); RBC 20-50 HPF (0-2); WBC >50 HPF (0-5)
[2023-05-03 14:54] LABS: C & S Indicated? Yes; WBC >50 HPF (0-5)
== END 2023-05-03 14:13 | disposition home or self-care (01) ==
LOC: LBN 14:12
PROVIDERS: PCP Family Medicine; Visit Provider Family Medicine
DX: N40.1 Benign prostatic hyperplasia with lower urinary tract symptoms (principal); T83.511D Infection and inflammatory reaction due to indwelling urethral catheter, subsequent encounter; N39.0 Urinary tract infection, site not specified
CPT/HCPCS: 87077; 81003; 81015; 87086; 87186

== ENCOUNTER 2023-05-29 17:41 | Outpatient (REF) | payer MEDICARE, SELFPAY ==
[2023-05-29 19:23] LABS: Bilirubin Negative (Negative); Blood Moderate (Negative); Clarity Cloudy (Clear); Glucose Negative (Negative); Ketones Negative (Negative); Leukocyte Esterase Large (Negative); Nitrite Negative (Negative); Specific Gravity 1.015 (1.005-1.025); Urobilinogen 0.2 mg/dL (Up to 0.2); pH 7.5 (5-8)
[2023-05-29 19:32] LABS: Bacteria Moderate HPF (Negative); Casts Negative LPF (Negative); Crystals Negative HPF (Negative); Epithelial Cells Rare HPF (Negative); Mucus Negative (Negative); WBC >50 HPF (0-5)
[2023-05-29 19:33] LABS: C & S Indicated? C&S Done As Ordered
== END 2023-05-29 17:42 | disposition home or self-care (01) ==
LOC: LBN 17:41
PROVIDERS: PCP Family Medicine; Visit Provider Urology
DX: N39.0 Urinary tract infection, site not specified (principal)
CPT/HCPCS: 81003; 81015; 87086

== ENCOUNTER 2023-06-05 17:20 | Outpatient (REF) | payer MEDICARE, SELFPAY ==
[2023-06-05 17:16] LABS: Bilirubin Negative (Negative); Blood Moderate (Negative); Clarity Cloudy (Clear); Glucose Negative (Negative); Ketones Negative (Negative); Leukocyte Esterase Moderate (Negative); Nitrite Negative (Negative); Specific Gravity 1.015 (1.005-1.025); Urobilinogen 0.2 mg/dL (Up to 0.2); pH 7.5 (5-8)
[2023-06-05 17:36] LABS: Bacteria Many HPF (Negative); C & S Indicated? C&S Done As Ordered; Casts Negative LPF (Negative); Crystals Negative HPF (Negative); Epithelial Cells Rare HPF (Negative); Mucus Trace (Negative); WBC 20-50 HPF (0-5)
== END 2023-06-05 17:21 | disposition home or self-care (01) ==
LOC: LBN 17:20
PROVIDERS: PCP Family Medicine; Visit Provider Family Medicine
DX: N32.89 Other specified disorders of bladder (principal); R82.998 Other abnormal findings in urine; R82.79 Other abnormal findings on microbiological examination of urine; N39.0 Urinary tract infection, site not specified; N18.9 Chronic kidney disease, unspecified
CPT/HCPCS: 87077; 81003; 81015; 87086; 87186

== ENCOUNTER 2023-06-06 09:48 | Emergency (ER) | payer MEDICARE, SELFPAY ==
[2023-06-06] VITALS (61 sets, daily range): BP systolic 83–130; BP diastolic 49–73; PULSE 68–103; RESP 15–31; TEMP 37.5; O2SAT 72–100
--- NOTE | 2023-06-06 10:15 | ED.GENADUL_ITS ---
Discharge Plan Disposition Patient Disposition: Transfer-Acute Inpatient Care Specific Acute Inpt Facility: [facility] Condition: Fair Discharge Details Chief Complaint: Urinary Clinical Impression: Pyelonephritis, Hydronephrosis with renal calculous obstruction Primary Care Provider: Gordo Dmoinguez ED Provider: Mor Ceron Home Meds and New Rx's Prescriptions: No Action gabapentin 100 mg capsule 200 mg PO HS Qty: 180 3RF finasteride 5 mg tablet 5 mg PO DAILY Qty: 90 3RF (DME) pen needle, diabetic [Comfort EZ Pen [place]] 33 gauge x 3/16 needle See Rx Instructions .ROUTE .MEDSUPPLY Qty: 100 3RF Rx Instructions: inject once/day multivitamin [Daily Multiple] 1 EACH tablet 1 ea PO DAILY (DME) blood-glucose meter [SimPrintsuch Ultra2 Meter] 1 EACH kit 1 ea Miscellaneous DAILY Qty: 1 omeprazole 20 MG capsule,delayed release(DR/EC) 20 mg PO DAILY (DME) lancets [FormisimoTouch UltraSoft Lancets] misc 1 ea Miscellaneous DAILY Qty: 90 4RF Rx Instructions: test daily before breakfast 5-hydroxytryptophan (5-HTP) [5-HTP] 100 mg capsule 100 mg PO DAILY melatonin 5 mg capsule 5 mg PO HS coenzyme Q10 [Co Q-10] 10 mg capsule 10 mg PO DAILY (DME) OneTouch Ultra Test Strip 1 ea Miscellaneous DAILY Qty: 90 3RF Rx Instructions: test daily before breakfast potassium chloride [Klor-Con M10] 10 mEq tablet,ER particles/crystals 30 meq PO DAILY Qty: 270 0RF Hold Instructions: defer to outpatient team Patient Comments: not on med list Rx Instructions: dose increase 08/30/22 tamsulosin 0.4 mg capsule 0.4 mg PO HS Qty: 90 3RF Jardiance 25 mg tablet 25 mg PO QAM Qty: 90 3RF Hold Instructions: Hold until renal function allows resumption; likely resume at 10mg daily Patient Comments: not on med list lidocaine HCl [Glydo] 2 % jelly in applicator 10 ml intra-urethral ONCE Qty: 120 0RF Rx Instructions: as a single dose - one dose per catheter change. lactulose 10 gram packet 10 g PO DAILY PRN (Reason: constipation) Qty: 30 1RF (DME) FreeStyle Shantell 2 [place] Misc See Rx Instructions .MEDSUPPLY Qty: 1 0RF Rx Instructions: As directed (DME) FreeStyle Shantell 2 Sensor Kit See Rx Instructions .MEDSUPPLY Qty: 1 11RF Rx Instructions: As directed pravastatin 40 mg tablet 40 mg PO QPM Qty: 90 3RF torsemide 20 mg tablet 40 mg PO DAILY Qty: 360 3RF acetaminophen [Tylenol] 325 mg Tablet 650 mg PO Q4H PRN PRNQty: 0 0RF metolazone 5 mg tablet 5 mg PO .q , Sat PRN (Reason: weight gain 3lbs/day or 7 lbs/week) Hold Instructions: defer to outpatient team Patient Comments: not on med list insulin aspart U-100 [Novolog FlexPen U-100 Insulin] 100 unit/mL (3 mL) insulin pen 20 sliding scale dose SUBCUT DIRECTED Patient Comments: INJECT 30 UNITS SUBCUTANEOUSLY BEFORE MEALS Rx Instructions: -No rapid acting insulin with breakfast or lunch. -20 units + SSI 2:50>150 with dinner. insulin glargine [Lantus Solostar U-100 Insulin] 100 unit/mL (3 mL) insulin pen 41 unit SUBCUT HS Patient Comments: INJECT 40 UNITS SUBCUTANEOUSLY EVERY EVENING polyethylene glycol 3350 17 gram Powder In Packet 17 g PO DAILY Qty: 0 0RF docusate sodium 100 mg Capsule 100 mg PO DAILY metoprolol succinate [Toprol XL] 100 mg tablet extended release 24 hr 50 mg PO BID warfarin [Jantoven] 5 mg tablet See Rx Instructions .ROUTE .COMPLEX Protocol: Dose Management Condition: Saturday Dose/Route: 1.25 mg Instruction: 0.25 x 5 mg tablets Condition: Saturday Dose/Route: 2.5 mg Instruction: 0.5 x 5 mg tablets Condition: Saturday Dose/Route: 0 mg Instruction: 0 tablets Condition: Saturday Dose/Route: 2.5 mg Instruction: 0.5 x 5 mg tablets Condition: Dose/Route: 0 mg Instruction: 0 tablets Condition: Saturday Dose/Route: 2.5 mg Instruction: 0.5 x 5 mg tablets Condition: Saturday Dose/Route: 0 mg Instruction: 0 tablets Protocol Text: Adjustment Start Date: Saturday06/05/23 INR Value: 1.7 INR Date: 06/05/23 Recheck Date: 06/12/23 Rx Instructions: Take 2.5mg on Saturday, Saturday & Saturday. Take 1.25mg on Saturday Medical Decision Making 82-year-old male history of CKD, nephrolithiasis, recurrent UTIs, nephrostomy tube placed mid March at [facility] for UTI and obstructing nephrolithiasis presents with inspissated yellow-green urine clogging nephrostomy tube no urine output since 830 this morning. Noted to be hypotensive tachycardic on arrival dry oromucosa dry skin on examination. Does have history of CHF however no evidence of pulmonary congestion at this time given clear lungs no respiratory distress or hypoxia. We will start with fluid bolus of 1 L normal saline, chart review shows history of vancomycin resistant Enterococcus E. coli and yeast in his urine, will begin linezolid and Zosyn empirically. Will obtain urine cultures, blood cultures, basic labs, patient will likely need transfer for urology and interventional radiology for nephrostomy replacement. 12: 53 initial presentation history physical labs and imaging consistent with severe sepsis in the setting of pyelonephritis relating to obstructing ureteral stones and obstructed nephrostomy tube, patient has been fluid responsive repeat heart rate 95 bpm blood pressure 116/41, broad-spectrum antibiotics have been running received fluid bolus, have placed call to [facility] urology and interventional radiology for transfer as patient will likely benefit from replacement nephrostomy and attempted lithotripsy and stenting. 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 Accepting physician Dr. Marlin Shen. It was noted on CT scan the patient also has hydronephrosis of right collecting system consider component of urinary outflow obstruction will order Knox catheter. HPI General Date/Time Provider Initiated Documentation: 06/06/23 09:56 . HPI Narrative: 82-year-old female history of nephrolithiasis, CKD, recent left-sided nephrostomy tube placed in March at [facility] in the setting of kidney stone hydronephrosis and UTI, presents after home health team noted cloudy purulent urine plugging nephrostomy tube, unable to flush nephrostomy no urine output since 830 this morning Related Data Home Medications Medication Instructions Recorded Confirmed multivitamin (Daily Multiple 1 ea PO DAILY 12/11/16 06/06/23 tablet) blood-glucose meter (OneTouch ##1 02/12/17 05/23/23 Ultra2 Meter kit) omeprazole 20 mg capsule,delayed 20 mg PO DAILY 04/15/18 06/06/23 release lancets (OneTouch UltraSoft #90 ea 11/06/18 05/23/23 Lancets) acetaminophen 325 mg tablet 650 mg PO Q4H PRN PRN #0 tabs 04/20/19 06/06/23 (Tylenol) 5-hydroxytryptophan (5-HTP) 100 mg 100 mg PO DAILY 04/10/22 06/06/23 capsule (5-HTP) coenzyme Q10 10 mg capsule (Co 10 mg PO DAILY 04/10/22 06/06/23 Q-10) melatonin 5 mg capsule 5 mg PO HS 04/10/22 06/06/23 blood sugar diagnostic (OneTouch #90 strips 05/17/22 05/23/23 Ultra Test strips) potassium chloride 10 mEq 30 meq PO DAILY #270 tabs 08/30/22 05/23/23 tablet,extended release(part/cryst) (Klor-Con M) tamsulosin 0.4 mg capsule 0.4 mg PO HS #90 caps 08/31/22 06/06/23 empagliflozin 25 mg tablet 25 mg PO QAM #90 tabs 10/10/22 05/23/23 (Jardiance) lidocaine HCl 2 % mucosal jelly in 10 ml intra-urethral ONCE #120 mL 10/31/22 06/06/23 applicator (Glydo) lactulose 10 gram oral packet 10 g PO DAILY PRN constipation #30 11/05/22 06/06/23 ea finasteride 5 mg tablet 5 mg PO DAILY #90 tabs 12/11/22 06/06/23 pen needle, diabetic 33 gauge x #100 ea 12/11/22 05/23/2301/31 (Comfort EZ Pen [place]) metolazone 5 mg tablet 5 mg PO .q Thurs, Mon PRN weight 12/31/22 05/23/23 gain 3lbs/day or 7 lbs/week flash glucose scanning reader #1 ea 01/07/23 05/23/23 (FreeStyle Shantell 2 [place]) flash glucose sensor (FreeStyle #1 ea 01/07/23 05/23/23 Shantell 2 Sensor kit) pravastatin 40 mg tablet 40 mg PO QPM #90 tabs 02/14/23 06/06/23 torsemide 20 mg tablet 40 mg PO DAILY #360 tabs 03/19/23 06/06/23 insulin aspart U-100 100 unit/mL 20 sliding scale dose subcut 03/27/23 06/06/23 (3 mL) subcutaneous pen (Novolog DIRECTED FlexPen U-100 Insulin aspart) insulin glargine 100 unit/mL (3 41 unit subcut HS 03/27/23 06/06/23 mL) subcutaneous pen (Lantus Solostar U-100 Insulin) polyethylene glycol 3350 17 gram 17 g PO DAILY #0 ea 04/09/23 06/06/23 oral powder packet gabapentin 100 mg capsule 200 mg PO HS #180 caps 04/24/23 06/06/23 docusate sodium 100 mg capsule 100 mg PO DAILY 06/06/23 06/06/23 metoprolol succinate 100 mg 50 mg PO BID 06/06/23 06/06/23 tablet,extended release 24 hr (Toprol XL) warfarin 5 mg tablet (Jantoven) See Rx Instructions .Route .COMPLEX 06/06/23 06/06/23 Previous Rx's Medication Instructions Recorded lancets (FormisimoTouch UltraSoft #90 ea 11/06/18 Lancets) acetaminophen 325 mg tablet 650 mg PO Q4H PRN PRN #0 tabs 04/20/19 (Tylenol) blood sugar diagnostic (OneTouch #90 strips 05/17/22 Ultra Test strips) potassium chloride 10 mEq 30 meq PO DAILY #270 tabs 08/30/22 tablet,extended release(part/cryst) (Klor-Con M) tamsulosin 0.4 mg capsule 0.4 mg PO HS #90 caps 08/31/22 empagliflozin 25 mg tablet 25 mg PO QAM #90 tabs 10/10/22 (Jardiance) lidocaine HCl 2 % mucosal jelly in 10 ml intra-urethral ONCE #120 mL 10/31/22 applicator (Glydo) lactulose 10 gram oral packet 10 g PO DAILY PRN constipation #30 11/05/22 ea finasteride 5 mg tablet 5 mg PO DAILY #90 tabs 12/11/22 pen needle, diabetic 33 gauge x #100 ea 12/11/22 3/16 (Comfort EZ Pen [place]) flash glucose scanning reader #1 ea 01/07/23 (FreeStyle Shantell 2 [place]) flash glucose sensor (FreeStyle #1 ea 01/07/23 Shantell 2 Sensor kit) pravastatin 40 mg tablet 40 mg PO QPM #90 tabs 02/14/23 torsemide 20 mg tablet 40 mg PO DAILY #360 tabs 03/19/23 polyethylene glycol 3350 17 gram 17 g PO DAILY #0 ea 04/09/23 oral powder packet gabapentin 100 mg capsule 200 mg PO HS #180 caps 04/24/23 Allergies Allergy/AdvReac Type Severity Reaction Status Date / Time No Known Allergies Allergy Verified 06/06/23 09:56 General Stated Complaint: Urinary GISSEL: 2 Review of Systems Narrative: Review of Systems Constitutional: negative Eyes: negative ENT: negative Cardiovascular: negative Respiratory: negative Gastrointestinal: negative : Purulent urine, clogged nephrostomy Musculoskeletal: negative Skin: negative Neurologic: negative Psych: negative PFSH All Active Problems (Updated 06/06/23 @ 14:51 by Mor Ceron MD) Pyelonephritis (Acute) Hydronephrosis with renal calculous obstruction (Acute) Need for home health care (Acute) History of fall (Acute) Noninfected skin tear of left lower extremity (Acute) Fall (Acute) Advance care planning (Acute) Skin tear of left lower leg without complication (Acute) Hyperkalemia (Acute) VRE (vancomycin resistant enterococcus) culture positive (Acute) Hydronephrosis, left (Acute) Hyperphosphatemia (Acute) Pressure ulcer of right ischium (Acute) Chronic indwelling Knox catheter (Acute) Acute renal failure (Acute) Acute UTI (Acute) Diabetes mellitus (Chronic) Atrial fibrillation (Chronic) on coumadin Chronic kidney disease (Chronic) 2020- borderline stage 4 Venous insufficiency (chronic) (peripheral) (Acute) Nail dystrophy (Acute) COVID-19 (Acute ~08/05/22) Thumb pain (Acute) Right heart failure (Acute) Urinary retention (Acute) 11/2021, ultrasound shows significant pretty and post void residual- minimal response to voiding Kidney stones (Chronic) Longstanding history of multiple stones 11/2021 ultrasound showed multiple stones in kidney, 1 stone possibly in right ureter Anemia (Chronic) Chronic mild anemia, associated with CKD Obstructive sleep apnea (Chronic) cpap Acute on chronic heart failure with preserved ejection fraction (Acute) Hives (Acute) Obesity (Acute 02/11/13) Obstructive nephropathy (Acute) Moderate pulmonary arterial systolic hypertension (Chronic) Chronic anticoagulation (Chronic) Polyp of colon (Chronic) Rosacea (Chronic) Constipation (Chronic) CHF (congestive heart failure) (Chronic) Medical History 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 Daughter No problems noted. Social History Smoking/Tobacco Use Status: Never Second Hand Exposure: No Smoking risk assessment performed?: Yes Alcohol Intake: current Alcohol Intake frequency: holidays/special occasions only Drug use: Never Substance use type: does not use Caregiver/Support person: Yes Household members: spouse Housing: house Communication Needs: Hard of Hearing Do you need help understanding health information?: Often Pets and animals: No Sexually active: No What is your relationship status?: How often do you talk on the phone with friends or family?: decline to answer How often do you get together with friends or relatives?: decline to answer How often do you attend scientologist or pentecostalism services?: decline to answer Do you belong to any clubs or organized social groups?: decline to answer Panel score (0-1 are the most socially isolated patients): 1 What type of physical activity do you participate in: walking Duration: < 15 minutes/day Frequency: daily Special amor needs: No Do you feel safe at home: Yes Do you feel safe in your relationship?: Yes Exam Narrative Exam Narrative: Physical Examination General: alert, awake, cooperative HEENT: normocephalic, atraumatic; PERRL, EOM intact, conjunctiva normal; no nasal discharge; dry oral mucosa Neck: supple, trachea midline; full ROM Chest: normal to inspection Respiratory: normal respiratory effort, speaking in full sentences, clear to auscultation, no wheezing, rales or rhonchi Cardiac: regular rate, regular rhythm, S1S2 intact, no murmurs rubs or gallops GI: abdomen soft, non-tender, non-distended; no palpable mass or hepatosplenomegaly : Yellow-green inspissated purulent urine within nephrostomy tube Skin: Dry Neuro: AAOx3, normal speech, moving all extremities Extremities: Chronic venous stasis changes bilateral lower extremity Psych: Appropriate mood and affect Course Vital Signs Vital signs: Vital Signs Temperature 37.5 C 06/06/23 09:48 Pulse 102 H 06/06/23 09:48 Respiratory Rate 24 06/06/23 09:48 Blood Pressure 89/53 L 06/06/23 09:48 Pulse Oximetry 97 06/06/23 09:48 Temperature 37.5 C 06/06/23 09:48 Temperature Source Oral 06/06/23 09:48 Pulse 102 H 06/06/23 09:48 Respiratory Rate 24 06/06/23 09:48 Respiratory Effort Short of Breath 06/06/23 09:56 Blood Pressure 89/53 L 06/06/23 09:48 Blood Pressure Position Supine 06/06/23 09:48 Pulse Oximetry 97 06/06/23 09:48 Oxygen Delivery Method Room Air 06/06/23 09:48 Oxygen Flow Rate 0 06/06/23 09:48 Pain Level 8 06/06/23 10:02 Comment PT states his pain is in his legs 06/06/23 09:48 Lab/Test Results Lab/Test Results: 06/06/23 10:07 Blood Blood Culture - Pending 06/06/23 09:56 Blood Blood Culture - Pending
[2023-06-06] MEDS: Normal Saline 1,000 ML 1000 ML IV (10:16)
[2023-06-06 10:20] LABS: Abs Immature Grans 0.08 10^3/uL (0.0-0.06); Absolute Basophil Count 0.02 10^3/uL (0.0-0.2); Absolute Eosinophil Count 0.05 10^3/uL (0.0-0.7); Absolute Lymphocyte Count 1.03 10^3/uL (1.2-3.4); Absolute Monocyte Count 1.06 10^3/uL (0.1-0.8); Basophils % 0.2; Eosinophils % 0.4; HCT 28.9 % (40.0-50.0); HGB 9.3 g/dL (13.5-17.5); Immature Grans % 0.7; Lymphocytes % 8.7; MCH 28.3 pg (27.0-33.0); MCHC 32.2 % (32.0-36.0); MCV 88 fL (80-95); MPV 8.8 fL (8.0-11.0); Platelet Count 186 10^3/uL (130-400); RBC 3.29 10^6/uL (4.36-5.78); RDW 16.9 % (11.8-14.1); RDW-SD 54.3 fL; WBC 11.83 10^3/uL (4.4-10.8)
[2023-06-06 10:21] LABS: Absolute Neutrophil Count 9.58 10^3/uL (1.2-6.7)
--- NOTE | 2023-06-06 10:30 | DI.CT_ITS ---
Exam(s) CT ABDOMEN PELVIS WO EXAM: CT ABDOMEN PELVIS WO CLINICAL HISTORY: left nephrostomy tube clog; hx kidney stone. TECHNIQUE: Imaging Protocol: Axial computed tomography images with coronal and sagittal reformatted images were created and reviewed. COMPARISON: CT CT RENAL COLIC WO from 04/12/2023 FINDINGS: The examination is limited due to patient motion artifact. ABDOMEN: Lung Bases: Coronary artery calcification and/or stents are present. Liver: Normal density. No measurable mass. Gallbladder and biliary tract: Status post cholecystectomy. No significant biliary ductal dilatation . Pancreas: Normal density, no abnormal calcifications or inflammatory process. Spleen: Normal. Kidneys: Normal size, contour and axis.There is bilateral nephrolithiasis. There is [id number] dilatation of the mid right ureter without evidence of an obstructing stone. There is now moderate dilatation of the left renal collecting system. A 2nd stone is now located at the UPJ. The patient has a left nephrostomy tube. There are bilateral renal cysts. No follow-up is recommended. Since t he prior examination there has been a decrease in the infiltration in the soft tissues surrounding th e left kidney. There again seen several left periaortic enlarged lymph nodes. Adrenal glands: No mass is seen. Lymph nodes: Enlarged left periaortic lymph nodes. The largest measures 2.2 cm. Abdominal Aorta: Abdominal portion non-dilated. Atherosclerosis. PELVIS: Bladder:There are bladder stones present. No bladder wall thickening is seen. There is thickening s een along the superior aspect of the urinary bladder with a suggestion of multiple diverticula. Bowel: No obstruction or bowel wall thickening. No evidence of appendicitis. There is a duodenal div erticulum. Peritoneal cavity: No ascites, collection or mesenteric inflammatory response. No free air. Reproductive organs: Unremarkable as visualized. Bones: Within normal limits for the patient's age. Soft Tissues: There is a large fat containing umbilical hernia and bilateral fat containing inguinal hernias. IMPRESSION: 1. Since the prior examination, a 2nd stone is now located at the left UPJ. There is also now modera te hydronephrosis present. 2. Soft tissue stranding around the left kidney with mildly enlarged left periaortic lymph nodes. Py elonephritis should be considered. 3. Findings suggesting diverticula along the superior aspect of the urinary bladder. Alternatively b ladder wall thickening resulting from cystitis should be considered. Please correlate clinically. 4. Bilateral nephrolithiasis. 5. Left nephrostomy tube. 6. Findings were discussed with Dr. Ceron at 12:35 p.m. on 06/06/2023. RADIATION DOSE DELIVERED: Total DLP DATA REPOSITORY: All CT scans at this facility are submitted to the National Radiology Data Registry (NRDR) Dose Index Registry (DIR) with the [employer] (ACR). RADIATION OPTIMIZATION: All CT scans at this facility use at least one of these dose optimization te chniques: automated exposure control; mA and/or kV adjustment per patient size (includes targeted exa ms where dose is matched to clinical indication); or iterative reconstruction.
[2023-06-06 10:41] LABS: ALT 11 U/L (16-63); AST 20 U/L (15-37); Albumin 2.4 g/dL (3.4-5.0); Alkaline Phosphatase 107 U/L (46-116); Anion Gap 14.1 mmol/L (3-11); BUN 77 mg/dL (7-18); CO2 23.9 mmol/L (21.0-32.0); Calcium 9.6 mg/dL (8.5-10.1); Chloride 100 mmol/L (98-107); Estimated GFR 9.65 (mL/min/1.73m2); Glucose 195 mg/dL (74-106); Sodium 138 mmol/L (136-145); Total Protein 8.6 g/dL (6.4-8.2)
[2023-06-06 10:42] LABS: CREATININE 5.5 mg/dL (0.70-1.30); Potassium 2.9 mmol/L (3.5-5.1)
[2023-06-06] MEDS: LINEZOLID 600 MG/300 ML BAG 300 MG IVPB (11:11)
[2023-06-06] MEDS: PIPERACILLIN/TAZO 4.5 GM in Normal Saline 100 ML IVPB (11:11)
[2023-06-06 11:36] LABS: Bilirubin Negative (Negative); Blood Moderate (Negative); Clarity Turbid (Clear); Glucose Negative (Negative); Ketones Negative (Negative); Leukocyte Esterase Large (Negative); Nitrite Negative (Negative); Urobilinogen 0.2 mg/dL (Up to 0.2)
[2023-06-06 11:51] LABS: WBC >50 HPF (0-5)
[2023-06-06 11:52] LABS: Bacteria Moderate HPF (Negative); C & S Indicated? Yes
[2023-06-06 14:54] LABS: Lactate 1.4 mmol/L (0.6-1.4)
--- NOTE | 2023-06-07 06:11 | NUR.NOTE ---
Faxed positive blood culture results to [facility]. Spoke to CECI Dimas on 06/07 at 06:10am, provided the results over the phone and faxed the report with the information.Nursing Note:
== END 2023-06-06 16:24 | disposition short-term general hospital (02) ==
PROVIDERS: Emergency Provider Emergency Medicine; PCP Family Medicine
DX: T83.193A Other mechanical complication of other urinary stent, initial encounter (principal); N10 Acute pyelonephritis; N13.2 Hydronephrosis with renal and ureteral calculous obstruction; I13.0 Hypertensive heart and chronic kidney disease with heart failure and stage 1 through stage 4 chronic kidney disease, or unspecified chronic kidney disease; E11.22 Type 2 diabetes mellitus with diabetic chronic kidney disease; N18.4 Chronic kidney disease, stage 4 (severe); I50.22 Chronic systolic (congestive) heart failure; Z79.84 Long term (current) use of oral hypoglycemic drugs; Z79.01 Long term (current) use of anticoagulants
CPT/HCPCS: 36415; 80053; 87040; 87077; 96361; 96365; 96368; 99285; 74176; 81003; 81015; 83605; 85025; 87086; 87186; 99284; J2020; J2543

== ENCOUNTER 2023-07-02 18:56 | Emergency (ER) | payer MEDICARE, SELFPAY ==
[2023-07-02 19:00] VITALS: BP 115/76; PULSE 56; RESP 18; TEMP 36.6; O2SAT 95
== END 2023-07-02 20:55 ==
PROVIDERS: PCP Family Medicine
DX: Z53.21 Procedure and treatment not carried out due to patient leaving prior to being seen by health care provider (principal)

== ENCOUNTER 2023-07-16 13:12 | Outpatient (REF) | payer MEDICARE, SELFPAY ==
[2023-07-16 13:32] LABS: Bilirubin Negative (Negative); Blood Large (Negative); Clarity Cloudy (Clear); Glucose 100 mg/dL (Negative); Ketones Negative (Negative); Leukocyte Esterase Large (Negative); Nitrite Negative (Negative); Urobilinogen 0.2 mg/dL (Up to 0.2); pH 5.5 (5-8)
[2023-07-16 13:43] LABS: C & S Indicated? C&S Done As Ordered; WBC >50 HPF (0-5)
== END 2023-07-16 13:13 | disposition home or self-care (01) ==
LOC: LBN 13:12
PROVIDERS: PCP Family Medicine; Visit Provider Family Medicine
DX: R30.0 Dysuria (principal); R82.998 Other abnormal findings in urine
CPT/HCPCS: 87077; 81003; 81015; 87086; 87186

== ENCOUNTER → 2023-07-30 01:49 | Outpatient (CLI) | payer MEDICARE, SELFPAY ==
--- NOTE | 2023-07-30 08:30 | DI.MRI_ITS ---
Exam(s) MR ABDOMEN WO EXAM: MR ABDOMEN WO CLINICAL HISTORY: assess pancreatic lesion seen on CT,K86.9 TECHNIQUE: Multiplanar multisequence MRI of the Abdomen without contrast was performed due to elevat ed creatinine.. COMPARISON: CT CT RENAL COLIC WO from 04/12/[address] ABDOMEN PELVIS WO from 06/06/2023 FINDINGS: Exam limited by patient body habitus. Liver: Unremarkable. Gallbladder and Bile Ducts: Unremarkable. Adrenals: Unremarkable. Spleen: Unremarkable. Aorta: Unremarkable. Soft Tissues: Unremarkable. Bones: Unremarkable. Lymph Nodes: Unremarkable. Bowel: Small diverticulum of the descending duodenum. Pancreas: Atrophic. Mild dilatation of the pancreatic duct. Conglomeration of cysts at the uncinate process measuring 2.8 by 2.2 cm by 3.2 cm in conjunction. Scattered tiny cysts elsewhere. Gallbladder and Bile Ducts: Unremarkable. Adrenals: Unremarkable. Kidneys: Multiple bilateral renal cysts. Bilateral nonobstructing renal stones. Left-sided nephrost bony tube. No perinephric collection. No evidence of hydronephrosis. IMPRESSION: Conglomeration of cysts in the uncinate process of the pancreatic head. Atrophic pancreas with mild ductal dilatation. Scattered tiny cysts. No suspicious pancreatic mass. Left-sided nephrostomy tube. No evidence of hydronephrosis. Bilateral renal calculi and renal cysts . DATA REPOSITORY:
== END ==
PROVIDERS: PCP Family Medicine; Visit Provider Family Medicine
DX: K86.9 Disease of pancreas, unspecified (principal); N28.1 Cyst of kidney, acquired; Z93.6 Other artificial openings of urinary tract status
CPT/HCPCS: 74181

== ENCOUNTER 2023-09-03 14:30 | Outpatient (REF) | payer MEDICARE, SELFPAY ==
[2023-09-03 14:40] LABS: Bacteria Moderate HPF (Negative); C & S Indicated? C&S Done As Ordered; Casts Negative LPF (Negative); Crystals Negative HPF (Negative); Epithelial Cells Negative HPF (Negative); Mucus Negative (Negative); Other Cells Negative (Negative); RBC Negative HPF (0-2); WBC >50 HPF (0-5)
== END 2023-09-03 14:31 | disposition home or self-care (01) ==
LOC: LBN 14:30
PROVIDERS: PCP Family Medicine
DX: N20.0 Calculus of kidney (principal)
CPT/HCPCS: 87077; 81015; 87086; 87186

== ENCOUNTER 2023-10-24 12:23 | Outpatient (REF) | payer MEDICARE, SELFPAY ==
[2023-10-24 13:51] LABS: Hemoglobin A1C 8.3 % (<5.7)
== END 2023-10-24 12:24 | disposition home or self-care (01) ==
LOC: LBN 12:23
PROVIDERS: PCP Family Medicine; Visit Provider Family Medicine
DX: E11.51 Type 2 diabetes mellitus with diabetic peripheral angiopathy without gangrene (principal); I70.209 Unspecified atherosclerosis of native arteries of extremities, unspecified extremity
CPT/HCPCS: 83036

== ENCOUNTER 2023-12-23 17:23 | Emergency (ER) | payer MEDICARE, SELFPAY ==
[2023-12-23 17:35] VITALS: BP 119/72; PULSE 87; RESP 17; TEMP 36.1; O2SAT 92
--- NOTE | 2023-12-23 18:05 | W.ED.GENAD ---
HPI General Mode of arrival: wheelchair. Date/Time Provider Initiated Documentation: 12/23/23 17:43. Limitations to Documentation: no limitations. Information obtained by: patient, family and old records reviewed. HPI Narrative: 83yo M with hx of CHF, obesity, CKD, afib on warfarin, straight-cath at baseline, presenting for gross hematuria. History from patient, , and [facility] record review. cathed him yesterday afternoon, had more difficulty than usual. After this he began having a large amount of blood in his urine including some clots. She has not cathed him today. He has a sensation of fullness and discomfort in his lower abdomen. Otherwise in his usual state of health with no fevers, chill, rash, nausea, vomiting, abdominal pain, dysuria, edema, or other concerns. Related Data Home Medications Medication Instructions Recorded Confirmed multivitamin (Daily Multiple 1 ea PO DAILY 12/11/16 12/23/23 tablet) blood-glucose meter (OneTouch ##1 02/12/17 12/23/23 Ultra2 Meter kit) lancets (relocalityTouch UltraSoft #90 ea 11/06/18 12/23/23 Lancets) acetaminophen 325 mg tablet 650 mg (2 x 325 mg) PO Q4H PRN PRN 04/20/19 12/23/23 (Tylenol) #0 tabs 5-hydroxytryptophan (5-HTP) 100 mg 100 mg PO DAILY 04/10/22 12/23/23 capsule (5-HTP) coenzyme Q10 10 mg capsule (Co 10 mg PO DAILY 04/10/22 12/23/23 Q-10) melatonin 5 mg capsule 5 mg PO HS 04/10/22 12/23/23 blood sugar diagnostic (OneTouch #90 strips 05/17/22 12/23/23 Ultra Test strips) lidocaine HCl 2 % mucosal jelly in 10 ml intra-urethral ONCE #120 mL 10/31/22 12/23/23 applicator (Glydo) lactulose 10 gram oral packet 10 g PO DAILY PRN constipation #30 11/05/22 12/23/23 ea flash glucose sensor (FreeStyle #1 ea 01/07/23 12/23/23 Shantell 2 Sensor kit) pravastatin 40 mg tablet 40 mg PO QPM #90 tabs 02/14/23 12/23/23 torsemide 20 mg tablet 40 mg (2 x 20 mg) PO DAILY #360 03/19/23 12/23/23 tabs insulin aspart U-100 100 unit/mL 20 sliding scale dose subcut 03/27/23 12/23/23 (3 mL) subcutaneous pen (Novolog DIRECTED FlexPen U-100 Insulin aspart) polyethylene glycol 3350 17 gram 17 g PO DAILY #0 ea 04/09/23 12/23/23 oral powder packet gabapentin 100 mg capsule 200 mg (2 x 100 mg) PO HS #180 caps 04/24/23 12/23/23 docusate sodium 100 mg capsule 100 mg PO DAILY 06/06/23 12/23/23 warfarin 5 mg tablet (Jantoven) See Rx Instructions .Route .COMPLEX 06/06/23 12/23/23 insulin glargine 100 unit/mL (3 30 unit subcut HS 06/14/23 12/23/23 mL) subcutaneous pen (Lantus Solostar U-100 Insulin) nitroglycerin 0.4 mg sublingual 0.4 mg sublingual Q5M PRN chest 07/31/23 12/23/23 tablet pain #25 tabs flash glucose scanning reader #1 ea 09/11/23 12/23/23 (FreeStyle Shantell 2 Edison) metolazone 5 mg tablet 5 mg PO .q , Sat PRN weight 09/30/23 12/23/23 gain 3lbs/day or 7 lbs/week #30 tabs tamsulosin 0.4 mg capsule 0.4 mg PO HS #90 caps 10/08/23 12/23/23 triamcinolone acetonide 0.1 % 1 applic topical BID ear eczema 11/13/23 12/23/23 topical cream #30 grams metoprolol succinate 100 mg 25 mg (1/4 x 100 mg) PO BID #45 12/04/23 12/23/23 tablet,extended release 24 hr tabs (Toprol XL) pen needle, diabetic 31 gauge x #100 ea 12/05/23 12/23/2311/21 (Unifine Pentips Plus) cefpodoxime 200 mg tablet 400 mg (2 x 200 mg) PO Q12H #56 12/23/23 tabs cefpodoxime 200 mg tablet 400 mg (2 x 200 mg) PO Q12H #56 12/23/23 tabs finasteride 5 mg tablet 5 mg PO DAILY #90 tabs 12/23/23 12/23/23 warfarin 2.5 mg tablet 2.5 mg PO DAILY #90 tabs 12/23/23 12/23/23 Previous Rx's Medication Instructions Recorded lancets (OneTouch UltraSoft #90 ea 11/06/18 Lancets) acetaminophen 325 mg tablet 650 mg (2 x 325 mg) PO Q4H PRN PRN 04/20/19 (Tylenol) #0 tabs blood sugar diagnostic (OneTouch #90 strips 05/17/22 Ultra Test strips) lidocaine HCl 2 % mucosal jelly in 10 ml intra-urethral ONCE #120 mL 10/31/22 applicator (Glydo) lactulose 10 gram oral packet 10 g PO DAILY PRN constipation #30 11/05/22 ea flash glucose sensor (FreeStyle #1 ea 01/07/23 Shantell 2 Sensor kit) pravastatin 40 mg tablet 40 mg PO QPM #90 tabs 02/14/23 torsemide 20 mg tablet 40 mg (2 x 20 mg) PO DAILY #360 03/19/23 tabs polyethylene glycol 3350 17 gram 17 g PO DAILY #0 ea 04/09/23 oral powder packet gabapentin 100 mg capsule 200 mg (2 x 100 mg) PO HS #180 caps 04/24/23 nitroglycerin 0.4 mg sublingual 0.4 mg sublingual Q5M PRN chest 07/31/23 tablet pain #25 tabs flash glucose scanning reader #1 ea 09/11/23 (FreeStyle Shantell 2 Edison) metolazone 5 mg tablet 5 mg PO .q Th, Mon PRN weight 09/30/23 gain 3lbs/day or 7 lbs/week #30 tabs tamsulosin 0.4 mg capsule 0.4 mg PO HS #90 caps 10/08/23 triamcinolone acetonide 0.1 % 1 applic topical BID ear eczema 11/13/23 topical cream #30 grams metoprolol succinate 100 mg 25 mg (1/4 x 100 mg) PO BID #45 12/04/23 tablet,extended release 24 hr tabs (Toprol XL) pen needle, diabetic 31 gauge x #100 ea 12/05/2311/21 (Unifine Pentips Plus) cefpodoxime 200 mg tablet 400 mg (2 x 200 mg) PO Q12H #56 12/23/23 tabs cefpodoxime 200 mg tablet 400 mg (2 x 200 mg) PO Q12H #56 12/23/23 tabs finasteride 5 mg tablet 5 mg PO DAILY #90 tabs 12/23/23 warfarin 2.5 mg tablet 2.5 mg PO DAILY #90 tabs 12/23/23 Allergies Allergy/AdvReac Type Severity Reaction Status Date / Time No Known Allergies Allergy Verified 12/23/23 17:57 General Stated Complaint: Urinary GISSEL: 3 Review of Systems Narrative: see HPI Exam Narrative Exam Narrative: General: Alert, well appearing, obese, in no acute distress. Head: Normocephalic, atraumatic Neck: Trachea midline, ?Neck supple. Cardiac: ?RRR, no murmurs appreciated Resp: No respiratory distress. CTAB. Abd: ?Soft, non-distended, nontender : ?No suprapubic tenderness. Extremities: ?No deformities.? No peripheral edema. Neurologic: GCS 15. ? Moves all extremities against gravity Course Vital Signs Vital signs: Vital Signs Temperature 36.1 C L 12/23/23 17:35 Pulse 87 12/23/23 17:35 Respiratory Rate 17 12/23/23 17:35 Blood Pressure 119/72 12/23/23 17:35 Pulse Oximetry 92 12/23/23 17:35 Temperature 36.1 C L 12/23/23 17:35 Temperature Source Oral 12/23/23 17:35 Pulse 87 12/23/23 17:35 Respiratory Rate 17 12/23/23 17:35 Blood Pressure 119/72 12/23/23 17:35 Blood Pressure Position Sitting 12/23/23 17:35 Pulse Oximetry 92 12/23/23 17:35 Oxygen Delivery Method Room Air 12/23/23 17:35 Oxygen Flow Rate 0 12/23/23 17:35 Medical Decision Making 83yo M with hx of CHF, obesity, CKD, afib on warfarin, straight-cath at baseline, presenting for gross hematuria. History from patient, , and [facility] record review. cathed him yesterday afternoon, had more difficulty than usual. After this he began having a large amount of blood in his urine including some clots. No fevers or chills, no flank pain, no change in urine output. She has not cathed him today. Vital signs reassuring on arrival, no suprapubic tenderness on exam. Consistent with traumatic cath in the setting of anticoagulation; low suspicion for renal/upper urinary tract source. No pain to suggest stone. Would not get imaging or chem panel. Medical records reviewed including palliative and urology clinic notes; of note he does have a history of recurrent kidney stones with prior urosepsis with obstructive uropathy, now s/p ureteral stent and stent removal. 3-way griffin placed and drained with gross hematuria. Initially dark, over the course of an hour became more pink. states his urine looks much clearer now than it did initially at home. Will plan to leave griffin in place give risk of obstruction/clots/further trauma. Given degree of hematuria reported, will evalaute with CBC and coags. CBC reassuring with Hg 9.2 at baseline on [facility] record review. INR appropriate. UA with as expected large blood, some WBC/nitrate/leuks, difficult to intrept in the setting of gross hematuria however given history and risk factors will treat presumptively for UTI especially as leaving with indwelling griffin. Repeat vital signs reassuring. Strict return precautions reviewed with patient and ; instructed to followup with urology. Discharged home; discharge instructions were reviewed with patient and who verbalized understanding. All questions were answered and they are in full agreement with the plan. . Medical Records Medical records reviewed: Yes I reviewed the patient's medical records. Lab Data Lab results reviewed: Yes I reviewed the patient's lab results. Labs: 12/23/23 18:53 Urine - Reflex from Ua Urine Culture - Pending Laboratory Tests Range/Units 12/23/23 12/23/23 18:18 18:53 WBC (4.4-10.8) 10^3/uL 8.02 RBC (4.36-5.78) 10^6/uL 3.14 L Hgb (13.5-17.5) g/dL 9.2 L Hct (40.0-50.0) % 29.0 L MCV (80-95) fL 92 MCH (27.0-33.0) pg 29.3 MCHC (32.0-36.0) % 31.7 L RDW (11.8-14.1) % 17.0 H Plt Count (130-400) 10^3/uL 162 MPV (8.0-11.0) fL 9.1 Immature Gran % 0.6 Neutrophils % 76.4 Lymphocytes % 10.7 Monocytes % 9.9 Eosinophils % 2.0 Basophils % 0.4 Nucleated RBC % (0.0-0.3) % 0.0 Absolute Neutrophils (1.2-6.7) 10^3/uL 6.13 Absolute Lymphocytes (1.2-3.4) 10^3/uL 0.86 L Absolute Monocytes (0.1-0.8) 10^3/uL 0.79 Absolute Eosinophils (0.0-0.7) 10^3/uL 0.16 Absolute Basophils (0.0-0.2) 10^3/uL 0.03 PT (9.1-11.1) sec 21.3 H INR (0.9-1.1) 2.3 H APTT (23.6-32.8) sec 37.4 H Urine Color (Yellow) Red Urine Clarity (Clear) Turbid Urine pH (5-8) 5.5 Ur Specific [place] (1.005-1.025) 1.015 Urine Protein (Negative) mg/dL >=300 H Urine Ketones (Negative) mg/dL Negative Urine Blood (Negative) Large H Urine Nitrite (Negative) Positive H Urine Bilirubin (Negative) Small H Urine Urobilinogen (Up to 0.2) mg/dL 1.0 H Ur Leukocyte Esterase (Negative) Large H Urine RBC (0-2) HPF Urine WBC (0-5) HPF >50 H Ur Epithelial Cells Not Applicable Urine Crystals Not Applicable Urine Bacteria Not Applicable Urine Mucus Not Applicable Ur Culture Indicated? Yes Urine Glucose (Negative) mg/dL Negative Quality:SDOH Health Related Social Needs: No Data to Display PFSH All Active Problems (Updated 12/23/23 @ 19:29 by Hafsa Maloney MD) Acute UTI (Acute) Hematuria (Acute) Edema (Acute) Cloudy urine (Acute) Lesion of pancreas (Acute) Obstructive uropathy (Acute) 06/12/23 Per [facility]. -hb Need for home health care (Acute) History of fall (Acute) Noninfected skin tear of left lower extremity (Acute) Fall (Acute) Advance care planning (Acute) Skin tear of left lower leg without complication (Acute) Hyperkalemia (Acute) VRE (vancomycin resistant enterococcus) culture positive (Acute) Hydronephrosis, left (Acute) Hyperphosphatemia (Acute) Pressure ulcer of right ischium (Acute) Chronic indwelling Griffin catheter (Acute) Acute renal failure (Acute) Acute UTI (Acute) Diabetes mellitus (Chronic) Atrial fibrillation (Chronic) on coumadin Chronic kidney disease (Chronic) 2020- borderline stage 4 Venous insufficiency (chronic) (peripheral) (Acute) Nail dystrophy (Acute) COVID-19 (Acute ~08/05/22) Thumb pain (Acute) Right heart failure (Acute) Urinary retention (Acute) 11/2021, ultrasound shows significant pretty and post void residual- minimal response to voiding Kidney stones (Chronic) Longstanding history of multiple stones 11/2021 ultrasound showed multiple stones in kidney, 1 stone possibly in right ureter Anemia (Chronic) Chronic mild anemia, associated with CKD Obstructive sleep apnea (Chronic) cpap Acute on chronic heart failure with preserved ejection fraction (Acute) Hives (Acute) Obesity (Acute 02/11/13) Obstructive nephropathy (Acute) Moderate pulmonary arterial systolic hypertension (Chronic) Chronic anticoagulation (Chronic) Polyp of colon (Chronic) Rosacea (Chronic) Constipation (Chronic) CHF (congestive heart failure) (Chronic) Medical History Chondrocalcinosis articularis Arthritis of right shoulder region Arthritis of right wrist Right wrist pain Palliative care patient Obesity hypoventilation syndrome Atrial fibrillation Nephrolithiasis BPH (benign prostatic hyperplasia) GERD (gastroesophageal reflux disease) Hyperlipidemia Essential hypertension, benign LUCAS on CPAP Diabetes mellitus type 2 in obese Surgical History Replacement of total knee joint B/L Tonsillectomy and adenoidectomy Colonoscopy - MAC (~2002) Cholecystectomy (~1985) Family History Mother Diabetes Heart disease Father Neoplasm STOMACH Brother Neoplasm Brother No problems noted. Daughter No problems noted. Social History Smoking/Tobacco Use Status: Never Second Hand Exposure: No Smoking risk assessment performed?: Yes Alcohol Intake: current Alcohol Intake frequency: holidays/special occasions only Drug use: Never Substance use type: does not use Caregiver/Support person: Yes Household members: spouse Housing: house Communication Needs: Hard of Hearing Do you need help understanding health information?: Often Pets and animals: No Sexually active: No What is your relationship status?: How often do you talk on the phone with friends or family?: decline to answer How often do you get together with friends or relatives?: decline to answer How often do you attend adventist or anabaptism services?: decline to answer Do you belong to any clubs or organized social groups?: decline to answer Panel score (0-1 are the most socially isolated patients): 1 What type of physical activity do you participate in: walking Duration: < 15 minutes/day Frequency: daily Special amor needs: No Do you feel safe at home: Yes Do you feel safe in your relationship?: Yes Discharge Plan Disposition Patient Disposition: Home Condition: Good Discharge Details Clinical Impression: Hematuria, Acute UTI Primary Care Provider: Gordo Dominguez ED Provider: Hafsa Maloney Home Meds and New Rx's Prescriptions: New cefpodoxime 200 mg tablet 400 mg PO Q12H Qty: 56 0RF Rx Instructions: must administer with a meal/food cefpodoxime 200 mg tablet 400 mg PO Q12H Qty: 56 0RF Rx Instructions: must administer with a meal/food Continued gabapentin 100 mg capsule 200 mg PO HS Qty: 180 3RF multivitamin [Daily Multiple] 1 EACH tablet 1 ea PO DAILY (DME) blood-glucose meter [OneTouch Ultra2 Meter] 1 EACH kit 1 ea Miscellaneous DAILY Qty: 1 (DME) lancets [OneTouch UltraSoft Lancets] misc 1 ea Miscellaneous DAILY Qty: 90 4RF Rx Instructions: test daily before breakfast 5-hydroxytryptophan (5-HTP) [5-HTP] 100 mg capsule 100 mg PO DAILY melatonin 5 mg capsule 5 mg PO HS coenzyme Q10 [Co Q-10] 10 mg capsule 10 mg PO DAILY (DME) OneTouch Ultra Test Strip 1 ea Miscellaneous DAILY Qty: 90 3RF Rx Instructions: test daily before breakfast lidocaine HCl [Glydo] 2 % jelly in applicator 10 ml intra-urethral ONCE Qty: 120 0RF Rx Instructions: as a single dose - one dose per catheter change. lactulose 10 gram packet 10 g PO DAILY PRN (Reason: constipation) Qty: 30 1RF (DME) FreeStyle Shantell 2 Sensor Kit See Rx Instructions .MEDSUPPLY Qty: 1 11RF Rx Instructions: As directed pravastatin 40 mg tablet 40 mg PO QPM Qty: 90 3RF torsemide 20 mg tablet 40 mg PO DAILY Qty: 360 3RF insulin glargine [Lantus Solostar U-100 Insulin] 100 unit/mL (3 mL) insulin pen 30 unit SUBCUT HS Patient Comments: INJECT 40 UNITS SUBCUTANEOUSLY EVERY EVENING Rx Instructions: Decrease per [facility]. 06/12/23. -hb nitroglycerin 0.4 mg tablet, sublingual 0.4 mg sublingual Q5M PRN (Reason: chest pain) Qty: 25 0RF Rx Instructions: take as needed q 5 mins for c/p until gone if take 3 pills and pain persists, call (BIMAL) FreeStyle Shantell 2 [facility] See Rx Instructions .MEDSUPPLY Qty: 1 0RF Rx Instructions: As directed metolazone 5 mg tablet 5 mg PO .q , Sat PRN (Reason: weight gain 3lbs/day or 7 lbs/week) Qty: 30 2RF Hold Instructions: defer to outpatient team tamsulosin 0.4 mg capsule 0.4 mg PO HS Qty: 90 3RF triamcinolone acetonide 0.1 % cream 1 applic topical BID Qty: 30 1RF metoprolol succinate [Toprol XL] 100 mg tablet extended release 24 hr 25 mg PO BID Qty: 45 3RF Rx Instructions: 07/03/[address] Dominguez. -hb (DME) pen needle, diabetic [Unifine Pentips Plus] 31 gauge x 1/4 needle See Rx Instructions .ROUTE .COMPLEX Qty: 100 3RF Dose Instruction: TEST ONCE A DAY Rx Instructions: TEST ONCE A DAY finasteride 5 mg tablet 5 mg PO DAILY Qty: 90 3RF warfarin 2.5 mg tablet 2.5 mg PO DAILY Qty: 90 3RF Protocol: Dose Management Condition: Saturday Dose/Route: 0 mg Instruction: 0 tablets Condition: Saturday Dose/Route: 2.5 mg Instruction: 1 x 2.5 mg tablet Condition: Saturday Dose/Route: 0 mg Instruction: 0 tablets Condition: Saturday Dose/Route: 2.5 mg Instruction: 1 x 2.5 mg tablet Condition: Dose/Route: 0 mg Instruction: 0 tablets Condition: Saturday Dose/Route: 2.5 mg Instruction: 1 x 2.5 mg tablet Condition: Saturday Dose/Route: 2.5 mg Instruction: 1 x 2.5 mg tablet Protocol Text: Adjustment Start Date: Saturday12/20/23 INR Value: 2.5 INR Date: 12/20/23 Recheck Date: 12/27/23 Rx Instructions: Take daily as directed by [facility] acetaminophen [Tylenol] 325 mg Tablet 650 mg PO Q4H PRN PRNQty: 0 0RF insulin aspart U-100 [Novolog FlexPen U-100 Insulin] 100 unit/mL (3 mL) insulin pen 20 sliding scale dose SUBCUT DIRECTED Patient Comments: INJECT 30 UNITS SUBCUTANEOUSLY BEFORE MEALS Rx Instructions: -No rapid acting insulin with breakfast or lunch. -20 units + SSI 2:50>150 with dinner. polyethylene glycol 3350 17 gram Powder In Packet 17 g PO DAILY Qty: 0 0RF docusate sodium 100 mg Capsule 100 mg PO DAILY warfarin [Jantoven] 5 mg tablet See Rx Instructions .ROUTE .COMPLEX Protocol: Dose Management Condition: Saturday Dose/Route: 0 mg Instruction: 0 tablets Condition: Saturday Dose/Route: 2.5 mg Instruction: 1 x 2.5 mg tablet Condition: Saturday Dose/Route: 0 mg Instruction: 0 tablets Condition: Saturday Dose/Route: 2.5 mg Instruction: 1 x 2.5 mg tablet Condition: Dose/Route: 0 mg Instruction: 0 tablets Condition: Saturday Dose/Route: 2.5 mg Instruction: 1 x 2.5 mg tablet Condition: Saturday Dose/Route: 2.5 mg Instruction: 1 x 2.5 mg tablet Protocol Text: Adjustment Start Date: Saturday12/20/23 INR Value: 2.5 INR Date: 12/20/23 Recheck Date: 12/27/23 Rx Instructions: Take 2.5mg on Saturday, Saturday & Saturday. Take 1.25mg on Saturday Discharge Instructions Instructions: Urinary Tract Infection in Men (ED), Hematuria (ED) Additional Instructions: Call your primary care doctor tomorrow to schedule an appointment within the next three days to followup on your visit today. They may want to repeat your blood counts. Take the antibiotic twice a day for the next 14 days. Followup with urology in the office; they will call you to schedule an appointment. Return to the emergency department for new or worsening symptoms including fever, if the catheter is not draining, if you feel lightheaded, or if you have any other concerns. Referrals: [facility] [Provider Group] Gordo Dominguez MD [Primary Care Provider] -
[2023-12-23 18:31] LABS: Abs Immature Grans 0.05 10^3/uL (0.0-0.06); Absolute Basophil Count 0.03 10^3/uL (0.0-0.2); Absolute Eosinophil Count 0.16 10^3/uL (0.0-0.7); Absolute Lymphocyte Count 0.86 10^3/uL (1.2-3.4); Absolute Monocyte Count 0.79 10^3/uL (0.1-0.8); Absolute Neutrophil Count 6.13 10^3/uL (1.2-6.7); Basophils % 0.4; HGB 9.2 g/dL (13.5-17.5); Immature Grans % 0.6; Lymphocytes % 10.7; MCH 29.3 pg (27.0-33.0); MCHC 31.7 % (32.0-36.0); MCV 92 fL (80-95); MPV 9.1 fL (8.0-11.0); Monocytes % 9.9; Neutrophils % 76.4; Platelet Count 162 10^3/uL (130-400); RBC 3.14 10^6/uL (4.36-5.78); RDW-SD 56.9 fL; WBC 8.02 10^3/uL (4.4-10.8)
[2023-12-23 18:40] LABS: INR 2.3 (0.9-1.1); PTT Activated 37.4 sec (23.6-32.8); Prothrombin Time 21.3 sec (9.1-11.1)
[2023-12-23 18:47] VITALS: BP 119/72; PULSE 87; RESP 17; TEMP 36.1; O2SAT 92
[2023-12-23] MEDS: Lidocaine 2% Jelly 6 ML SYR (18:49)
[2023-12-23 19:07] LABS: Bilirubin Small (Negative); Blood Large (Negative); Clarity Turbid (Clear); Glucose Negative (Negative); Ketones Negative (Negative); Leukocyte Esterase Large (Negative); Nitrite Positive (Negative); Specific Gravity 1.015 (1.005-1.025); pH 5.5 (5-8)
[2023-12-23 19:11] LABS: WBC >50 HPF (0-5)
[2023-12-23 19:12] LABS: C & S Indicated? Yes
[2023-12-23] MEDS: Cefpodoxime 200 MG TAB 400 MG PO (19:44)
--- NOTE | 2023-12-23 19:55 | NUR.NOTE ---
Pt placed on care management referral list to see Urology for Hematuria to be seen within [address] Maloney
== END 2023-12-23 20:14 | disposition home or self-care (01) ==
PROVIDERS: Emergency Provider Student in an Organized Health Care Education/Training Program; PCP Family Medicine
DX: R31.9 Hematuria, unspecified (principal); N39.0 Urinary tract infection, site not specified; I48.91 Unspecified atrial fibrillation; I13.0 Hypertensive heart and chronic kidney disease with heart failure and stage 1 through stage 4 chronic kidney disease, or unspecified chronic kidney disease; I50.9 Heart failure, unspecified; N18.9 Chronic kidney disease, unspecified; E11.22 Type 2 diabetes mellitus with diabetic chronic kidney disease; Z79.01 Long term (current) use of anticoagulants; Z79.4 Long term (current) use of insulin
CPT/HCPCS: 51702; 87077; 99283; 81003; 81015; 85025; 85610; 85730; 87086; 87186

== ENCOUNTER 2024-05-20 11:31 | Inpatient (IN) | payer MEDICARE, SELFPAY ==
[2024-05-20] VITALS (60 sets, daily range): BP systolic 83–138; BP diastolic 34–119; PULSE 40–100; RESP 13–32; TEMP 36.4–37.1; O2SAT 93–100
[2024-05-20 12:00] LABS: Abs Immature Grans 0.02 10^3/uL (0.0-0.06); Absolute Basophil Count 0.02 10^3/uL (0.0-0.2); Absolute Eosinophil Count 0.12 10^3/uL (0.0-0.7); Absolute Monocyte Count 0.55 10^3/uL (0.1-0.8); Absolute Neutrophil Count 3.67 10^3/uL (1.2-6.7); Basophils % 0.4 %; Eosinophils % 2.3 %; HCT 25.6 % (40.0-50.0); Immature Grans % 0.4 %; MCH 28.7 pg (27.0-33.0); MCHC 31.3 % (32.0-36.0); MCV 92 fL (80-95); MPV 9.2 fL (8.0-11.0); Monocytes % 10.4 %; Neutrophils % 69.5 %; Platelet Count 120 10^3/uL (130-400); RBC 2.79 10^6/uL (4.36-5.78); RDW 15.2 % (11.8-14.1); RDW-SD 51.6 fL; WBC 5.28 10^3/uL (4.4-10.8)
--- NOTE | 2024-05-20 12:02 | DI.RAD_ITS ---
Exam(s) XR PORTABLE CHEST AP EXAM: XR PORTABLE CHEST AP CLINICAL HISTORY: eval for pneumonia. TECHNIQUE: 2D digital imaging was performed. COMPARISON: CR,XR XR PORTABLE CHEST AP from 04/07/2023 FINDINGS: Single AP portable view. Mild cardiomegaly. The mediastinum is not widened Lungs are clear. No infiltrates nor obvious pleural effusions. Pulmonary edema. No fracture seen. IMPRESSION: No acute pulmonary findings on this single AP portable view of the chest. Cardiomegaly again noted. No CHF. DATA REPOSITORY: RADIATION DOSE DELIVERED:
[2024-05-20 12:13] LABS: Diff Comment Diff Reviewed; Hypochromasia 2+
[2024-05-20 12:27] LABS: ALT 14 U/L (16-63); AST 19 U/L (15-37); Albumin 2.5 g/dL (3.4-5.0); Alkaline Phosphatase 111 U/L (46-116); Anion Gap 9.1 mmol/L (3-11); BUN 43 mg/dL (7-18); CO2 26.9 mmol/L (21.0-32.0); Calcium 9.2 mg/dL (8.5-10.1); Chloride 102 mmol/L (98-107); Glucose 165 mg/dL (74-106); Potassium 3.4 mmol/L (3.5-5.1); Sodium 138 mmol/L (136-145); TSH (W/Ref FT4) 2.44 uIU/mL (0.36-3.74); Total Protein 7.8 g/dL (6.4-8.2)
[2024-05-20 12:29] LABS: INR 1.9 (0.9-1.1); PTT Activated 33.9 sec (23.6-32.8); Prothrombin Time 17.8 sec (9.1-11.1)
[2024-05-20 12:32] LABS: CREATININE 4.8 mg/dL (0.70-1.30); Troponin I 69 ng/L (< or =60)
[2024-05-20 12:37] LABS: Procalcitonin < 0.1 ng/mL
[2024-05-20 13:11] LABS: Bilirubin Negative (Negative); Blood Large (Negative); Clarity Cloudy (Clear); Glucose Negative (Negative); Ketones Negative (Negative); Leukocyte Esterase Moderate (Negative); Nitrite Negative (Negative); Urobilinogen 0.2 mg/dL (Up to 0.2)
[2024-05-20 13:21] LABS: C & S Indicated? C&S Done As Ordered; WBC >50 HPF (0-5)
[2024-05-20] MEDS: CEFEPIME 2 GM in Normal Saline 100 ML IVPB (13:55)
[2024-05-20] MEDS: Lidocaine 2% Jelly 6 ML SYR (13:59)
--- NOTE | 2024-05-20 14:18 | ED.GENADUL_ITS ---
Discharge Plan Disposition Patient Disposition: Admit to [facility] Condition: Improving Discharge Details Chief Complaint: Urinary Clinical Impression: Acute UTI Primary Care Provider: Gordo Dominguez ED Provider: Silas Del Cid Home Meds and New Rx's Prescriptions: No Action multivitamin [Daily Multiple] 1 EACH tablet 1 ea PO DAILY (DME) blood-glucose meter [OneTouch Ultra2 Meter] 1 EACH kit 1 ea Miscellaneous DAILY Qty: 1 (DME) lancets [OneTouch UltraSoft Lancets] misc 1 ea Miscellaneous DAILY Qty: 90 4RF Rx Instructions: test daily before breakfast melatonin 5 mg capsule 5 mg PO HS (DME) OneTouch Ultra Test Strip 1 ea Miscellaneous DAILY Qty: 90 3RF Rx Instructions: test daily before breakfast lidocaine HCl [Glydo] 2 % jelly in applicator 10 ml intra-urethral ONCE Qty: 120 0RF Rx Instructions: as a single dose - one dose per catheter change. lactulose 10 gram packet 10 g PO DAILY PRN (Reason: constipation) Qty: 30 1RF (DME) FreeStyle Shantell 2 Sensor Kit See Rx Instructions .MEDSUPPLY Qty: 1 11RF Rx Instructions: As directed insulin glargine [Lantus Solostar U-100 Insulin] 100 unit/mL (3 mL) insulin pen 30 unit SUBCUT HS Patient Comments: INJECT 40 UNITS SUBCUTANEOUSLY EVERY EVENING Rx Instructions: Decrease per [facility]. 06/12/23. -hb nitroglycerin 0.4 mg tablet, sublingual 0.4 mg sublingual Q5M PRN (Reason: chest pain) Qty: 25 0RF Rx Instructions: take as needed q 5 mins for c/p until gone if take 3 pills and pain persists, call (DME) FreeStyle Shantell 2 [place] [facility] [place] See Rx Instructions .MEDSUPPLY Qty: 1 0RF Rx Instructions: As directed metolazone 5 mg tablet 5 mg PO .q Thurs, Mon PRN (Reason: weight gain 3lbs/day or 7 lbs/week) Qty: 30 2RF Hold Instructions: defer to outpatient team tamsulosin 0.4 mg capsule 0.4 mg PO HS Qty: 90 3RF triamcinolone acetonide 0.1 % cream 1 applic topical BID Qty: 30 1RF finasteride 5 mg tablet 5 mg PO DAILY Qty: 90 3RF warfarin 2.5 mg tablet 2.5 mg PO DAILY Qty: 90 3RF Protocol: Dose Management Condition: Saturday Dose/Route: 0 mg Instruction: 0 tablets Condition: Saturday Dose/Route: 2.5 mg Instruction: 1 x 2.5 mg tablet Condition: Saturday Dose/Route: 1.25 mg Instruction: 0.5 x 2.5 mg tablets Condition: Saturday Dose/Route: 2.5 mg Instruction: 1 x 2.5 mg tablet Condition: Dose/Route: 1.25 mg Instruction: 0.5 x 2.5 mg tablets Condition: Saturday Dose/Route: 1.25 mg Instruction: 0.5 x 2.5 mg tablets Condition: Saturday Dose/Route: 2.5 mg Instruction: 1 x 2.5 mg tablet Protocol Text: Adjustment Start Date: Saturday05/12/24 INR Value: 1.8 INR Date: 05/12/24 Recheck Date: 05/26/24 Rx Instructions: Take daily as directed by [facility] (DME) pen needle, diabetic [Comfort EZ Pen [place]] 33 gauge x 3/16 needle See Rx Instructions .ROUTE .MEDSUPPLY Qty: 400 3RF Rx Instructions: inject 4 x/day metoprolol succinate [Toprol XL] 100 mg tablet extended release 24 hr 25 mg PO BID Qty: 45 3RF Rx Instructions: 07/03/[address] Dominguez. -hb torsemide 20 mg tablet 40 mg PO DAILY Qty: 180 3RF pravastatin 40 mg tablet 40 mg PO QPM Qty: 90 3RF gabapentin 100 mg capsule 200 mg PO HS Qty: 180 3RF acetaminophen [Tylenol] 325 mg Tablet 650 mg PO Q4H PRN PRNQty: 0 0RF insulin aspart U-100 [Novolog FlexPen U-100 Insulin] 100 unit/mL (3 mL) insulin pen 20 sliding scale dose SUBCUT DIRECTED Patient Comments: INJECT 30 UNITS SUBCUTANEOUSLY BEFORE MEALS Rx Instructions: -No rapid acting insulin with breakfast or lunch. -20 units + SSI 2:50>150 with dinner. polyethylene glycol 3350 17 gram Powder In Packet 17 g PO DAILY Qty: 0 0RF warfarin [Jantoven] 5 mg tablet See Rx Instructions .ROUTE .COMPLEX Protocol: Dose Management Condition: Saturday Dose/Route: 0 mg Instruction: 0 tablets Condition: Saturday Dose/Route: 2.5 mg Instruction: 1 x 2.5 mg tablet Condition: Saturday Dose/Route: 1.25 mg Instruction: 0.5 x 2.5 mg tablets Condition: Saturday Dose/Route: 2.5 mg Instruction: 1 x 2.5 mg tablet Condition: Dose/Route: 1.25 mg Instruction: 0.5 x 2.5 mg tablets Condition: Saturday Dose/Route: 1.25 mg Instruction: 0.5 x 2.5 mg tablets Condition: Saturday Dose/Route: 2.5 mg Instruction: 1 x 2.5 mg tablet Protocol Text: Adjustment Start Date: Saturday05/12/24 INR Value: 1.8 INR Date: 05/12/24 Recheck Date: 05/26/24 Rx Instructions: Take 2.5mg on Saturday, Saturday & Saturday. Take 1.25mg on Saturday HPI General Date/Time Provider Initiated Documentation: 05/20/24 11:39 . HPI Narrative: This is an 83-year-old male with a past medical history of being a palliative care patient, but not on hospice. He has chronic kidney disease managed at [facility], congestive heart failure, obesity, general gradual decline in functionality, chronic Knox catheter, atrial fibrillation, obstructive sleep apnea, diabetes, high cholesterol, currently anticoagulated with warfarin, who presents today for evaluation of weakness. I spoke with the patient's , she had shoulder surgery 2 to 3 weeks ago and has been having a much harder time managing things at home for the patient. She has noted that over the last 2 to 3 days urine has become a bit more cloudy. Today the patient tried to get up but he could not because he was so weak. He did fall and hit h is right knee. He did not hit his head or strike anything else. He denies any pain in the knee. He denies any loss of consciousness. He states that his legs buckled under him and he was not able to get up. EMS was called and the patient was brought to the ER for further assessment. Currently he denies any chest pain headache neck pain or extremity pain. He denies any vomiting or diarrhea. No other complaints at this time. No other modifying factors. Related Data Home Medications Medication Instructions Recorded Confirmed multivitamin (Daily Multiple 1 ea PO DAILY 12/11/16 05/20/24 tablet) blood-glucose meter (OneTouch ##1 02/12/17 05/20/24 Ultra2 Meter kit) lancets (OneTouch UltraSoft #90 ea 11/06/18 05/20/24 Lancets) acetaminophen 325 mg tablet 650 mg (2 x 325 mg) PO Q4H PRN PRN 04/20/19 05/20/24 (Tylenol) #0 tabs melatonin 5 mg capsule 5 mg PO HS 04/10/22 05/20/24 blood sugar diagnostic (OneTouch #90 strips 05/17/22 05/20/24 Ultra Test strips) lidocaine HCl 2 % mucosal jelly in 10 ml intra-urethral ONCE #120 mL 10/31/22 05/20/24 applicator (Glydo) lactulose 10 gram oral packet 10 g PO DAILY PRN constipation #30 11/05/22 05/20/24 ea flash glucose sensor (FreeStyle #1 ea 01/07/23 05/20/24 Shantell 2 Sensor kit) insulin aspart U-100 100 unit/mL 20 sliding scale dose subcut 03/27/23 05/20/24 (3 mL) subcutaneous pen (Novolog DIRECTED FlexPen U-100 Insulin aspart) polyethylene glycol 3350 17 gram 17 g PO DAILY #0 ea 04/09/23 05/20/24 oral powder packet warfarin 5 mg tablet (Tajtoven) See Rx Instructions .Route .COMPLEX 06/06/23 05/20/24 insulin glargine 100 unit/mL (3 30 unit subcut HS 06/14/23 05/20/24 mL) subcutaneous pen (Lantus Solostar U-100 Insulin) nitroglycerin 0.4 mg sublingual 0.4 mg sublingual Q5M PRN chest 07/31/23 05/20/24 tablet pain #25 tabs flash glucose scanning reader #1 ea 09/11/23 05/20/24 (FreeStyle Shantell 2 [place]) metolazone 5 mg tablet 5 mg PO .q Thurs, Mon PRN weight 09/30/23 05/20/24 gain 3lbs/day or 7 lbs/week #30 tabs tamsulosin 0.4 mg capsule 0.4 mg PO HS #90 caps 10/08/23 05/20/24 triamcinolone acetonide 0.1 % 1 applic topical BID ear eczema 11/13/23 05/20/24 topical cream #30 grams finasteride 5 mg tablet 5 mg PO DAILY #90 tabs 12/23/23 05/20/24 warfarin 2.5 mg tablet 2.5 mg PO DAILY #90 tabs 12/23/23 05/20/24 pen needle, diabetic 33 gauge x #400 ea 01/31/24 05/20/2401/31 (Comfort EZ Pen [place]) metoprolol succinate 100 mg 25 mg (1/4 x 100 mg) PO BID #45 02/25/24 05/20/24 tablet,extended release 24 hr tabs (Toprol XL) torsemide 20 mg tablet 40 mg (2 x 20 mg) PO DAILY #180 04/09/24 05/20/24 tabs pravastatin 40 mg tablet 40 mg PO QPM #90 tabs 04/15/24 05/20/24 gabapentin 100 mg capsule 200 mg (2 x 100 mg) PO HS #180 caps 04/22/24 05/20/24 Previous Rx's Medication Instructions Recorded lancets (BitmenuTouch UltraSoft #90 ea 11/06/18 Lancets) acetaminophen 325 mg tablet 650 mg (2 x 325 mg) PO Q4H PRN PRN 04/20/19 (Tylenol) #0 tabs blood sugar diagnostic (OneTouch #90 strips 05/17/22 Ultra Test strips) lidocaine HCl 2 % mucosal jelly in 10 ml intra-urethral ONCE #120 mL 10/31/22 applicator (Glydo) lactulose 10 gram oral packet 10 g PO DAILY PRN constipation #30 11/05/22 ea flash glucose sensor (FreeStyle #1 ea 01/07/23 Shantell 2 Sensor kit) polyethylene glycol 3350 17 gram 17 g PO DAILY #0 ea 04/09/23 oral powder packet nitroglycerin 0.4 mg sublingual 0.4 mg sublingual Q5M PRN chest 07/31/23 tablet pain #25 tabs flash glucose scanning reader #1 ea 09/11/23 (FreeStyle Shantell 2 [place]) metolazone 5 mg tablet 5 mg PO .q Thurs, Mon PRN weight 09/30/23 gain 3lbs/day or 7 lbs/week #30 tabs tamsulosin 0.4 mg capsule 0.4 mg PO HS #90 caps 10/08/23 triamcinolone acetonide 0.1 % 1 applic topical BID ear eczema 11/13/23 topical cream #30 grams finasteride 5 mg tablet 5 mg PO DAILY #90 tabs 12/23/23 warfarin 2.5 mg tablet 2.5 mg PO DAILY #90 tabs 12/23/23 pen needle, diabetic 33 gauge x #400 ea 01/31/2401/31 (Comfort EZ Pen [place]) metoprolol succinate 100 mg 25 mg (1/4 x 100 mg) PO BID #45 02/25/24 tablet,extended release 24 hr tabs (Toprol XL) torsemide 20 mg tablet 40 mg (2 x 20 mg) PO DAILY #180 04/09/24 tabs pravastatin 40 mg tablet 40 mg PO QPM #90 tabs 04/15/24 gabapentin 100 mg capsule 200 mg (2 x 100 mg) PO HS #180 caps 04/22/24 Allergies Allergy/AdvReac Type Severity Reaction Status Date / Time No Known Allergies Allergy Verified 12/23/23 17:57 General Stated Complaint: Urinary GISSEL: 3 Review of Systems All systems reviewed & are unremarkable except as noted in HPI and below Exam Narrative Exam Narrative: 1.Const: Well-nourished, Well-developed, appearing stated age 2.Eyes: PERRL, no conjunctival injection, and symmetrical lids. 3.ENT: Atraumatic external nose and ears. Moist MM. Neck: Symmetric, trachea midline, No thyromegaly. 4.CVS: +S1/S2, No murmurs or gallops. Peripheral pulses 2+ and equal in all extremities. Brisk capillary refill in all extremities. 5.RESP: Unlabored respiratory effort. Clear to auscultation bilaterally. No wheezes rales or rhonchi 6.GI: Soft, Nontender/Nondistended, No hepatosplenomegaly. No guarding or rebound. Knox catheter in place, mild urine and drainage around the urethral meatus and the Knox catheter. 7.MSK: Normocephalic/Atraumatic, Extremities w/o deformity or ttp No cyanosis or clubbing, Normal movement of all extremities. Minimal pitting edema. 8.Skin: Warm, Dry. No rashes or lesions. 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 Sensation grossly intact, no focal n eurologic deficits. 10.Psych: (AAO) x3. Appropriate mood and affect Course Vital Signs Vital signs: Vital Signs Pulse Oximetry 97 05/20/24 11:35 Temperature 36.6 C 05/20/24 11:37 Temperature Source Temporal Artery Scan 05/20/24 11:37 Pulse 50 L 05/20/24 13:01 Pulse 59 L 05/20/24 13:01 Respiratory Rate 26 H 05/20/24 13:01 Blood Pressure 135/63 05/20/24 13:01 Blood Pressure Mean 83 05/20/24 13:01 Blood Pressure Position Sitting 05/20/24 11:37 Pulse Oximetry 96 05/20/24 12:10 Oxygen Delivery Method Room Air 05/20/24 11:37 Oxygen Flow Rate 0 05/20/24 11:37 Pain Level 0 05/20/24 11:37 Lab/Test Results Lab/Test Results: 05/20/24 12:43 Urine - Cath Knox Indwelling Urine Culture - Pending 05/20/24 12:42 Blood Blood Culture - Pending 05/20/24 12:01 Blood Blood Culture - Pending Laboratory Tests Range/Units 05/20/24 05/20/24 05/20/24 11:44 11:52 12:43 WBC (4.4-10.8) 10^3/uL 5.28 RBC (4.36-5.78) 10^6/uL 2.79 L Hgb (13.5-17.5) g/dL 8.0 L Hct (40.0-50.0) % 25.6 L MCV (80-95) fL 92 MCH (27.0-33.0) pg 28.7 MCHC (32.0-36.0) % 31.3 L RDW (11.8-14.1) % 15.2 H Plt Count (130-400) 10^3/uL 120 L MPV (8.0-11.0) fL 9.2 Immature Gran % % 0.4 Neutrophils % % 69.5 Lymphocytes % % 17.0 Monocytes % % 10.4 Eosinophils % % 2.3 Basophils % % 0.4 Nucleated RBC % (0.0-0.3) % 0.0 Absolute Neutrophils (1.2-6.7) 10^3/uL 3.67 Absolute Lymphocytes (1.2-3.4) 10^3/uL 0.90 L Absolute Monocytes (0.1-0.8) 10^3/uL 0.55 Absolute Eosinophils (0.0-0.7) 10^3/uL 0.12 Absolute Basophils (0.0-0.2) 10^3/uL 0.02 RBC Morphology See Below Hypochromasia 2+ PT (9.1-11.1) sec 17.8 H INR (0.9-1.1) 1.9 H APTT (23.6-32.8) sec 33.9 H VBG Lactate (0.6-1.4) mmol/L 2.0 H Sodium (136-145) mmol/L 138 Potassium (3.5-5.1) mmol/L 3.4 L Chloride (98-107) mmol/L 102 Carbon Dioxide (21.0-32.0) mmol/L 26.9 Anion Gap (3-11) mmol/L 9.1 BUN (7-18) mg/dL 43 H Creatinine (0.70-1.30) mg/dL 4.8 H* Est GFR (CKD-EPI 2020) (mL/min/1.73m2) 11.30 Glucose (74-106) mg/dL 165 H Calcium (8.5-10.1) mg/dL 9.2 Total Bilirubin (0.2-1.0) mg/dL 0.70 AST (15-37) U/L 19 ALT (16-63) U/L 14 L Alkaline Phosphatase (46-116) U/L 111 Troponin I (< or =60) ng/L 69 H* Total Protein (6.4-8.2) g/dL 7.8 Albumin (3.4-5.0) g/dL 2.5 L Procalcitonin ng/mL < 0.1 TSH Cancelled 2.44 Urine Color (Yellow) Yellow Urine Clarity (Clear) Cloudy Urine pH (5-8) 6.0 Ur Specific [place] (1.005-1.025) 1.020 Urine Protein (Neg-Trace) mg/dL 100 H Urine Ketones (Negative) mg/dL Negative Urine Blood (Negative) Large H Urine Nitrite (Negative) Negative Urine Bilirubin (Negative) Negative Urine Urobilinogen (Up to 0.2) mg/dL 0.2 Ur Leukocyte Esterase (Negative) Moderate H Urine RBC Not Applicable Urine WBC (0-5) HPF >50 H Ur Epithelial Cells Not Applicable Urine Crystals Not Applicable Urine Bacteria Not Applicable Urine Mucus Not Applicable Ur Culture Indicated? C&S Done As Ordered Urine Glucose (Negative) mg/dL Negative Medical Decision Making This is an 83-year-old male with a past medical history of being a palliative care patient, but not on hospice. He has chronic kidney disease managed at [facility], congestive heart failure, obesity, general gradual decline in functionality, chronic Knox catheter, atrial fibrillation, obstructive sleep apnea, diabetes, high cholesterol, currently anticoagulated with warfarin, who presents today for evaluation of weakness. I spoke with the patient's , she had shoulder surgery 2 to 3 weeks ago and has been having a much harder time managing things at home for the patient. She has noted that over the last 2 to 3 days urine has become a bit more cloudy. Today the patient tried to get up but he could not because he was so weak. He did fall and hit his right knee. He did not hit his head or strike anything else. He denies any pain in the knee. He denies any loss of consciousness. He states that his legs buckled under him and he was not able to get up. EMS was called and the patient was brought to the ER for further assessment. Currently he denies any chest pain headache neck pain or extremity pain. He denies any vomiting or diarrhea. No other complaints at this time. No other modifying factors. Physical exam demonstrates clear lung sounds, Knox catheter in place, drainage around the urethral meatus and the catheter itself. Minimal pitting edema. No focal deficit. Intellectually the patient is notably stable, he is able to move all extremities. No focal weakness. Symptoms appear inconsistent with stroke. Notable pus is in his Knox catheter bag. Concern for potential infectious etiology. Will evaluate for these components, monitor closely and reassess. 2:37 PM Laboratory workup is relatively stable, hemoglobin 8, slightly lower than normal. White count stable. Mild lymphopenia. INR relatively therapeutic at 1.9, lactate 2.0. Potassium 3.4, creatinine 4.8 which appears to be around baseline for the episodes of significant illness that he has had. Troponin minimally elevated at 69, but no evidence of significant ST elevation or STEMI. Suspect demand ischemia from illness. Procalcitonin stable, thyroid function normal, urinalysis shows notable white blood cells with moderate leuk esterase. Out of concern for early pyelonephritis versus severe UTI secondary to Knox catheter, we did start the patient on cefepime. With the patient's multiple comorbidities, age, and risk factors I do not feel that he would be a good candidate for immediate transition home with his continued mild weakness. No clinical evidence to suggest stroke. Will recommend admission for 24 to 48 hours at minimum to continue to monitor for decline or worsening of symptoms. Discussed the case with hospitalist Dr. Donovan. He agrees with the assessment plan. I have extensively reviewed the treatment plan with the patient. I have addressed all patient concerns at this time. I have also discussed the plan with the admitting physician and they agree with the current assessment and plan and have agreed to assume responsibility for the patient. All parties demonstrate verbal understanding and agreement with our assessment and plan at this time. The documentation in this chart was dictated using [employer] dictation software. Please excuse any dictation errors. Quality:SDOH Health Related Social Needs: No Data to Display PFSH All Active Problems (Updated 05/20/24 @ 14:41 by Silas Del Cid DO) Acute UTI (Acute) Dyspnea (Acute) Palliative care patient (Acute) Deficit in activities of daily living (ADL) (Acute) Encounter for hospice care discussion (Acute) Edema (Acute) Cloudy urine (Acute) Lesion of pancreas (Acute) Obstructive uropathy (Acute) 06/12/23 Per [facility]. -hb Need for home health care (Acute) History of fall (Acute) Noninfected skin tear of left lower extremity (Acute) Fall (Acute) Advance care planning (Acute) Skin tear of left lower leg without complication (Acute) Hyperkalemia (Acute) VRE (vancomycin resistant enterococcus) culture positive (Acute) Hydronephrosis, left (Acute) Hyperphosphatemia (Acute) Pressure ulcer of right ischium (Acute) Chronic indwelling Knox catheter (Acute) Acute renal failure (Acute) Acute UTI (Acute) Diabetes mellitus (Chronic) Atrial fibrillation (Chronic) on coumadin Chronic kidney disease (Chronic) 2020- borderline stage 4 Venous insufficiency (chronic) (peripheral) (Acute) Nail dystrophy (Acute) COVID-19 (Acute ~08/05/22) Thumb pain (Acute) Right heart failure (Acute) Urinary retention (Acute) 11/2021, ultrasound shows significant pretty and post void residual- minimal response to voiding Kidney stones (Chronic) Longstanding history of multiple stones 11/2021 ultrasound showed multiple stones in kidney, 1 stone possibly in right ureter Anemia (Chronic) Chronic mild anemia, associated with CKD Obstructive sleep apnea (Chronic) cpap Acute on chronic heart failure with preserved ejection fraction (Acute) Hives (Acute) Obesity (Acute 02/11/13) Obstructive nephropathy (Acute) Moderate pulmonary arterial systolic hypertension (Chronic) Chronic anticoagulation (Chronic) Polyp of colon (Chronic) Rosacea (Chronic) Constipation (Chronic) CHF (congestive heart failure) (Chronic) Medical History 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 Daughter No problems noted. Social History Smoking/Tobacco Use Status: Never Second Hand Exposure: No Smoking risk assessment performed?: Yes Alcohol Intake: current Alcohol Intake frequency: holidays/special occasions only Drug use: Never Substance use type: does not use Caregiver/Support person: Yes Household members: spouse Housing: house Communication Needs: Hard of Hearing Do you need help understanding health information?: Often Pets and animals: No Sexually active: No What is your relationship status?: How often do you talk on the phone with friends or family?: decline to answer How often do you get together with friends or relatives?: decline to answer How often do you attend anabaptism or yazdanism services?: decline to answer Do you belong to any clubs or organized social groups?: decline to answer Panel score (0-1 are the most socially isolated patients): 1 What type of physical activity do you participate in: walking Duration: < 15 minutes/day Frequency: daily Special amor needs: No Do you feel safe at home: Yes Do you feel safe in your relationship?: Yes
--- NOTE | 2024-05-20 14:53 | HPE_ITS ---
Date of service: 05/20/24 Time of Service: 15:03 Assessment and Plan Assessment and plan (1) Acute UTI: Status: Acute Assessment and plan: Cefepime for + leuk esterase in urine -Renal dose as per pharmacy Renal US for suspected early pyelonephritis as per ED provider Urine cultures pending Urology consult SBP < 90 w MAP 55: LR one liter bolus then LR at 50 cc/hour LVEF 55% in 2022 (2) Elevated troponin: Status: Acute Assessment and plan: troponins 69 & 72 corralating to previous values seen in chart. The patient has no symptoms of ACS Will trend troponins and order an EKG (3) Palliative care patient: Status: Acute Assessment and plan: Palliative care consult (4) Deficit in activities of daily living (ADL): Status: Acute Assessment and plan: PT consult Discussed with Dr. Donovan History of Present Illness History of Present Illness Chief Complaint: Weakness Narrative: This 83 years old male patient with past medical history of CKD managed at [facility], HFpEF with an LVEF of 55 as of 01/07/2023, obesity, chronic kidney catheter, atrial fibrillation anticoagulated on Coumadin, LUCAS, diabetes, hyperlipidemia presented today in the ED at [facility] via EMS for evaluation of weakness. The patient mention using his walker to walk to the bathroom and his knees giving up and causing him to fall. The patient mentioned having had difficulty ambulating for the past 2 or 3 days due to increased weakness. The patient denied hitting his head during fall or any residual knee pain. The patient's spouse mention that over the last 2 to 3 days urine has become slightly more cloudy. In the ED the patient denied chest pain, headache, neck pain, or extremity pain. The patient also denied nausea, vomiting, diarrhea or constipation. Workup in the ED was positive for UTI with urine cultures pending. The patient was started on cefepime. H&H was 8.0 and 25.6, today's BUN was 43 with a creatinine of 4.8 with a GFR of 11.30. Initial troponin in the ED was 69 the previous troponin values are between 54 and 89 in the patient chart in 2021 and 2022 as mentioned by the ED provider. The patient did not complain of chest pain, shortness of breath and an EKG was not performed in the ED. Chest x-ray showed no acute pulmonary findings. The hospitalist was consulted and the patient admitted for evaluation and management of UTI in male patient with a chronic indwelling urinary catheter. Review of Systems All systems reviewed & are unremarkable except as noted in HPI and below PFSH All Active Problems (Updated 05/20/24 @ 18:37 by Yesenia Luis APRN) Elevated troponin (Acute) Acute UTI (Acute) Dyspnea (Acute) Palliative care patient (Acute) Deficit in activities of daily living (ADL) (Acute) Encounter for hospice care discussion (Acute) Edema (Acute) Cloudy urine (Acute) Lesion of pancreas (Acute) Obstructive uropathy (Acute) 06/12/23 Per [facility] [place] Need for home health care (Acute) History of fall (Acute) Noninfected skin tear of left lower extremity (Acute) Fall (Acute) Advance care planning (Acute) Skin tear of left lower leg without complication (Acute) Hyperkalemia (Acute) VRE (vancomycin resistant enterococcus) culture positive (Acute) Hydronephrosis, left (Acute) Hyperphosphatemia (Acute) Pressure ulcer of right ischium (Acute) Chronic indwelling Griffin catheter (Acute) Acute renal failure (Acute) Acute UTI (Acute) Diabetes mellitus (Chronic) Atrial fibrillation (Chronic) on coumadin Chronic kidney disease (Chronic) 2020- borderline stage 4 Venous insufficiency (chronic) (peripheral) (Acute) Nail dystrophy (Acute) COVID-19 (Acute ~08/05/22) Thumb pain (Acute) Right heart failure (Acute) Urinary retention (Acute) 11/2021, ultrasound shows significant pretty and post void residual- minimal response to voiding Kidney stones (Chronic) Longstanding history of multiple stones 11/2021 ultrasound showed multiple stones in kidney, 1 stone possibly in right ureter Anemia (Chronic) Chronic mild anemia, associated with CKD Obstructive sleep apnea (Chronic) cpap Acute on chronic heart failure with preserved ejection fraction (Acute) Hives (Acute) Obesity (Acute 02/11/13) Obstructive nephropathy (Acute) Moderate pulmonary arterial systolic hypertension (Chronic) Chronic anticoagulation (Chronic) Polyp of colon (Chronic) Rosacea (Chronic) Constipation (Chronic) CHF (congestive heart failure) (Chronic) Medical History 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 Daughter No problems noted. Social History Smoking/Tobacco Use Status: Never Second Hand Exposure: No Smoking risk assessment performed?: Yes Alcohol Intake: current Alcohol Intake frequency: holidays/special occasions only Drug use: Never Substance use type: does not use Caregiver/Support person: Yes Household members: spouse Housing: house Communication Needs: Hard of Hearing Do you need help understanding health information?: Often Pets and animals: No Sexually active: No What is your relationship status?: How often do you talk on the phone with friends or family?: decline to answer How often do you get together with friends or relatives?: decline to answer How often do you attend nondenominational or latter day services?: decline to answer Do you belong to any clubs or organized social groups?: decline to answer Panel score (0-1 are the most socially isolated patients): 1 What type of physical activity do you participate in: walking Duration: < 15 minutes/day Frequency: daily Special amor needs: No Do you feel safe at home: Yes Do you feel safe in your relationship?: Yes Meds Allergies and Home Medications Allergies Allergy/AdvReac Type Severity Reaction Status Date / Time No Known Allergies Allergy Verified 12/23/23 17:57 Home Medications Medication Instructions Recorded Confirmed Type multivitamin (Daily Multiple 1 ea PO DAILY 12/11/16 05/20/24 History tablet) blood-glucose meter (KampyleTouch ##1 02/12/17 05/20/24 History Ultra2 Meter kit) lancets (KampyleTouch UltraSoft #90 ea 11/06/18 05/20/24 Rx Lancets) acetaminophen 325 mg tablet 650 mg (2 x 325 mg) PO Q4H PRN PRN 04/20/19 05/20/24 Rx (Tylenol) #0 tabs melatonin 5 mg capsule 5 mg PO HS 04/10/22 05/20/24 History blood sugar diagnostic (OneTouch #90 strips 05/17/22 05/20/24 Rx Ultra Test strips) lidocaine HCl 2 % mucosal jelly in 10 ml intra-urethral ONCE #120 mL 10/31/22 05/20/24 Rx applicator (Glydo) lactulose 10 gram oral packet 10 g PO DAILY PRN constipation #30 11/05/22 05/20/24 Rx ea flash glucose sensor (FreeStyle #1 ea 01/07/23 05/20/24 Rx Shantell 2 Sensor kit) insulin aspart U-100 100 unit/mL 20 sliding scale dose subcut 03/27/23 05/20/24 History (3 mL) subcutaneous pen (Novolog DIRECTED FlexPen U-100 Insulin aspart) polyethylene glycol 3350 17 gram 17 g PO DAILY #0 ea 04/09/23 05/20/24 Rx oral powder packet warfarin 5 mg tablet (Jantoven) See Rx Instructions .Route .COMPLEX 06/06/23 05/20/24 History insulin glargine 100 unit/mL (3 30 unit subcut HS 06/14/23 05/20/24 History mL) subcutaneous pen (Lantus Solostar U-100 Insulin) nitroglycerin 0.4 mg sublingual 0.4 mg sublingual Q5M PRN chest 07/31/23 05/20/24 Rx tablet pain #25 tabs flash glucose scanning reader #1 ea 09/11/23 05/20/24 Rx (FreeStyle Shantell 2 [place]) metolazone 5 mg tablet 5 mg PO .q Th, Mon PRN weight 09/30/23 05/20/24 Rx gain 3lbs/day or 7 lbs/week #30 tabs tamsulosin 0.4 mg capsule 0.4 mg PO HS #90 caps 10/08/23 05/20/24 Rx triamcinolone acetonide 0.1 % 1 applic topical BID ear eczema 11/13/23 05/20/24 Rx topical cream #30 grams finasteride 5 mg tablet 5 mg PO DAILY #90 tabs 12/23/23 05/20/24 Rx warfarin 2.5 mg tablet 2.5 mg PO DAILY #90 tabs 12/23/23 05/20/24 Rx pen needle, diabetic 33 gauge x #400 ea 01/31/24 05/20/24 Rx 3/16 (Comfort EZ Pen [place]) metoprolol succinate 100 mg 25 mg (1/4 x 100 mg) PO BID #45 02/25/24 05/20/24 Rx tablet,extended release 24 hr tabs (Toprol XL) torsemide 20 mg tablet 40 mg (2 x 20 mg) PO DAILY #180 04/09/24 05/20/24 Rx tabs pravastatin 40 mg tablet 40 mg PO QPM #90 tabs 04/15/24 05/20/24 Rx gabapentin 100 mg capsule 200 mg (2 x 100 mg) PO HS #180 caps 04/22/24 05/20/24 Rx Exam Narrative Exam Narrative: Constitutional The patient is in bed comfortable without acute distress . Neuro:alert and oriented X 4, non-focal Resp: clear lung bilaterally Cardio: regular rhythm, S1, S2, distant , no murmur, capillary refill<3 sec., bilateral radial and dorsalis pedis pulses are positive GI: Abdomen is not distended, soft and non tender, bowel sounds are present : Negative Costovertebral angle tenderness, griffin replaced in ED Integumentary: No lesions or rash on exposed skin Psych: RASS 0, congruent mood and normal affect. Results Labs 05/20/24 11:52 05/20/24 11:52 Labs: Laboratory Results - last 24 hr 05/20/24 05/20/24 05/20/24 11:44 11:52 12:43 WBC 5.28 RBC 2.79 L Hgb 8.0 L Hct 25.6 L MCV 92 MCH 28.7 MCHC 31.3 L RDW 15.2 H Plt Count 120 L MPV 9.2 Immature Gran % 0.4 Neutrophils % 69.5 Lymphocytes % 17.0 Monocytes % 10.4 Eosinophils % 2.3 Basophils % 0.4 Nucleated RBC % 0.0 Absolute Neutrophils 3.67 Absolute Lymphocytes 0.90 L Absolute Monocytes 0.55 Absolute Eosinophils 0.12 Absolute Basophils 0.02 RBC Morphology See Below Hypochromasia 2+ PT 17.8 H INR 1.9 H APTT 33.9 H VBG Lactate 2.0 H Sodium 138 Potassium 3.4 L Chloride 102 Carbon Dioxide 26.9 Anion Gap 9.1 BUN 43 H Creatinine 4.8 H* Est GFR (CKD-EPI 2020) 11.30 Glucose 165 H Calcium 9.2 Total Bilirubin 0.70 AST 19 ALT 14 L Alkaline Phosphatase 111 Troponin I 69 H* Total Protein 7.8 Albumin 2.5 L Procalcitonin < 0.1 TSH Cancelled 2.44 Urine Color Yellow Urine Clarity Cloudy Urine pH 6.0 Ur Specific [place] 1.020 Urine Protein 100 H Urine Ketones Negative Urine Blood Large H Urine Nitrite Negative Urine Bilirubin Negative Urine Urobilinogen 0.2 Ur Leukocyte Esterase Moderate H Urine RBC Not Applicable Urine WBC >50 H Ur Epithelial Cells Not Applicable Urine Crystals Not Applicable Urine Bacteria Not Applicable Urine Mucus Not Applicable Ur Culture Indicated? C&S Done As Ordered Urine Glucose Negative Last Vital Signs Temp 36.6 C 05/20/24 11:37 Pulse 50 L 05/20/24 13:01 Resp 26 H 05/20/24 13:01 BP 135/63 05/20/24 13:01 Pulse Ox 96 05/20/24 12:10 Time Spent Time spent with Patient: >75 minutes Time was spent: preparing to see the patient(eg.review tests), obtaining and/or reviewing separately otained hiistory, ordering medications,tests, procedures, referring, communicating with other health medicare contact specialist, indepentently interpreting results, counseling the patient and care coordination
[2024-05-20 15:16] LABS: Troponin I 72 ng/L (< or =60)
[2024-05-20] MEDS: Normal Saline Flush 10 ML SYR IVP ×2 (17:30→20:48)
[2024-05-20] MEDS: Lactated Ringers 1,000 ML 1000 ML IV (17:30)
--- NOTE | 2024-05-20 18:30 | RT.EKG_ITS ---
APPROVED REPORT Exam: Resting ECG Reason for Exam: elevated troponin Patient Location: I HR:50 bpm ECG Measurements Heart Rate 50 AXIS MI [id number] P [id number] QRSd 105 QRS 17 QT 473 T 15 QTc 432 Conclusion Atrial fibrillation...? atrial activity Low voltage, precordial leads...precordial leads <1.0mV
[2024-05-20] MEDS: Gabapentin 100 MG CAP 200 MG PO (20:46)
[2024-05-20] MEDS: Tamsulosin 0.4 MG CAPCR PO (20:46)
[2024-05-20] MEDS: Melatonin 3 MG TAB 6 MG PO (20:46)
[2024-05-20] MEDS: Pravastatin 40 MG TAB PO (20:46)
[2024-05-20] MEDS: Aspirin E.C. 81 MG TABEC PO (20:46)
[2024-05-20] MEDS: Potassium Chloride 20 MEQ TABCR PO (20:46)
[2024-05-20] MEDS: Acetaminophen 325 MG TAB 650 MG PO (20:47)
[2024-05-20] MEDS: Triamcinolone 0.1% CR 15 GM TUBE TP (20:50)
[2024-05-20] MEDS: Insulin Glargine 300 UNITS/3 ML PEN 30 UNITS SC (20:51)
[2024-05-20 20:56] LABS: Troponin I 72 ng/L (< or =60)
[2024-05-21 04:09] VITALS: BP 112/60; PULSE 60; RESP 18; TEMP 36.4; O2SAT 99
[2024-05-21] MEDS: Acetaminophen 325 MG TAB 650 MG PO (04:15)
[2024-05-21 07:05] LABS: Abs Immature Grans 0.02 10^3/uL (0.0-0.06); Absolute Basophil Count 0.01 10^3/uL (0.0-0.2); Absolute Eosinophil Count 0.08 10^3/uL (0.0-0.7); Absolute Lymphocyte Count 0.85 10^3/uL (1.2-3.4); Absolute Neutrophil Count 2.88 10^3/uL (1.2-6.7); Basophils % 0.2 %; Eosinophils % 1.8 %; HCT 24.6 % (40.0-50.0); HGB 7.8 g/dL (13.5-17.5); Immature Grans % 0.5 %; Lymphocytes % 19.1 %; MCH 28.9 pg (27.0-33.0); MCHC 31.7 % (32.0-36.0); MCV 91 fL (80-95); MPV 9.5 fL (8.0-11.0); Monocytes % 13.5 %; Neutrophils % 64.9 %; Platelet Count 135 10^3/uL (130-400); RDW 15.2 % (11.8-14.1); RDW-SD 50.4 fL; WBC 4.44 10^3/uL (4.4-10.8)
[2024-05-21 07:19] LABS: INR 1.8 (0.9-1.1); Prothrombin Time 16.9 sec (9.1-11.1)
[2024-05-21 07:30] LABS: Basophilic Stippling Present; Diff Comment Diff Reviewed; Hypochromasia 2+
[2024-05-21 07:32] LABS: Anion Gap 8.4 mmol/L (3-11); BUN 46 mg/dL (7-18); CO2 26.6 mmol/L (21.0-32.0); Chloride 104 mmol/L (98-107); Glucose 144 mg/dL (74-106); Magnesium 1.5 mg/dL (1.8-2.4); Potassium 3.6 mmol/L (3.5-5.1); Sodium 139 mmol/L (136-145)
[2024-05-21 07:34] VITALS: BP 98/58; PULSE 61; RESP 19; TEMP 36; O2SAT 97
[2024-05-21 07:40] LABS: CREATININE 4.8 mg/dL (0.70-1.30); Troponin I 65 ng/L (< or =60)
--- NOTE | 2024-05-21 07:59 | PGE_ITS ---
Date of Service Date of service: 05/21/24 Time of Service: 16:13 Assessment and Plan Assessment and plan (1) Acute UTI: Status: Acute Assessment and plan: Positive UA in the ED Continue Cefepime at renal dose Renal US for suspected early pyelonephritis as per ED provider: pending Urine cultures showed GNR further results pending Urology consult pending IF SBP < 90 w MAP 55n will consider small bolus of fluid LVEF 55% in 2022 (2) Elevated troponin: Status: Acute Assessment and plan: troponins trending down , max 72 w/o symptoms of ACS EKG was negative for ischemia, atrial fibrillation at 50 bpm echo pending (3) Palliative care patient: Status: Acute Assessment and plan: Palliative care consult Wishes to be a full code (4) Deficit in activities of daily living (ADL): Status: Acute Assessment and plan: PT consult : Difficulty working w PT Right knee pain:s/p fall prior to presentation to the ED -XR negative for fracture or component displacement -Scheduled APAP -PRN tramadol Q12 [address] Lozano (5) Contraindication to deep vein thrombosis (DVT) prophylaxis: Status: Acute Assessment and plan: On warfarin for A-fib Subjective Subjective Patient reports: feels better, tolerating liquids well, tolerating a regular diet, voiding w/o difficulty, flatus and other (difficulty sleeping ); denies no bowel movement, diarrhea, nausea, vomiting, shortness of breath or fever Exam Narrative Exam Narrative: Constitutional The patient is in bed comfortable without acute distress, at bedside and home CPAP brought in Neuro:alert and oriented X 4, no focal deficit Resp: clear upper lung bilaterally,but diminished bases, shallow breathing Cardio: regular rhythm, S1, S2, distant , bilateral radial and pedal pulses p ositive, left LE edema is less-will apply TEDs GI: Abdomen is not distended, soft and non tender, bowel sounds are present : Negative Costovertebral angle tenderness,new griffin in place from laced in ED Integumentary: No lesions or rash on exposed skin Psych: RASS 0, congruent mood and normal affect. Objective Last Vital Signs Temp 36.0 C L 05/21/24 07:34 Pulse 61 05/21/24 07:34 Resp 19 05/21/24 07:34 BP 98/58 L 05/21/24 07:34 Pulse Ox 97 05/21/24 07:34 Laboratory Results - last 24 hr 05/20/24 05/20/24 05/20/24 11:44 11:52 12:43 WBC 5.28 RBC 2.79 L Hgb 8.0 L Hct 25.6 L MCV 92 MCH 28.7 MCHC 31.3 L RDW 15.2 H Plt Count 120 L MPV 9.2 Immature Gran % 0.4 Neutrophils % 69.5 Lymphocytes % 17.0 Monocytes % 10.4 Eosinophils % 2.3 Basophils % 0.4 Nucleated RBC % 0.0 Absolute Neutrophils 3.67 Absolute Lymphocytes 0.90 L Absolute Monocytes 0.55 Absolute Eosinophils 0.12 Absolute Basophils 0.02 RBC Morphology See Below Hypochromasia 2+ Basophilic Stippling PT 17.8 H INR 1.9 H APTT 33.9 H VBG Lactate 2.0 H Sodium 138 Potassium 3.4 L Chloride 102 Carbon Dioxide 26.9 Anion Gap 9.1 BUN 43 H Creatinine 4.8 H* Est GFR (CKD-EPI 2020) 11.30 Glucose 165 H Calcium 9.2 Magnesium Total Bilirubin 0.70 AST 19 ALT 14 L Alkaline Phosphatase 111 Troponin I 69 H* Total Protein 7.8 Albumin 2.5 L Procalcitonin < 0.1 TSH Cancelled 2.44 Urine Color Yellow Urine Clarity Cloudy Urine pH 6.0 Ur Specific [place] 1.020 Urine Protein 100 H Urine Ketones Negative Urine Blood Large H Urine Nitrite Negative Urine Bilirubin Negative Urine Urobilinogen 0.2 Ur Leukocyte Esterase Moderate H Urine RBC Not Applicable Urine WBC >50 H Ur Epithelial Cells Not Applicable Urine Crystals Not Applicable Urine Bacteria Not Applicable Urine Mucus Not Applicable Ur Culture Indicated? C&S Done As Ordered Urine Glucose Negative 05/20/24 05/20/24 05/21/24 14:42 20:30 06:20 WBC 4.44 RBC 2.70 L Hgb 7.8 L Hct 24.6 L MCV 91 MCH 28.9 MCHC 31.7 L RDW 15.2 H Plt Count 135 MPV 9.5 Immature Gran % 0.5 Neutrophils % 64.9 Lymphocytes % 19.1 Monocytes % 13.5 Eosinophils % 1.8 Basophils % 0.2 Nucleated RBC % 0.0 Absolute Neutrophils 2.88 Absolute Lymphocytes 0.85 L Absolute Monocytes 0.60 Absolute Eosinophils 0.08 Absolute Basophils 0.01 RBC Morphology See Below Hypochromasia 2+ Basophilic Stippling Present PT 16.9 H INR 1.8 H APTT VBG Lactate Sodium 139 Potassium 3.6 Chloride 104 Carbon Dioxide 26.6 Anion Gap 8.4 BUN 46 H Creatinine 4.8 H* Est GFR (CKD-EPI 2020) 11.30 Glucose 144 H Calcium 9.0 Magnesium 1.5 L Total Bilirubin AST ALT Alkaline Phosphatase Troponin I 72 H* 72 H* 65 H* Total Protein Albumin Procalcitonin TSH Urine Color Urine Clarity Urine pH Ur Specific [place] Urine Protein Urine Ketones Urine Blood Urine Nitrite Urine Bilirubin Urine Urobilinogen Ur Leukocyte Esterase Urine RBC Urine WBC Ur Epithelial Cells Urine Crystals Urine Bacteria Urine Mucus Ur Culture Indicated? Urine Glucose Time Spent with Patient Time Spent with Patient: >50 minutes Time was spent: preparing to see the patient(eg.review tests), obtaining and/or reviewing separately otained hiistory, ordering medications,tests, procedures, referring, communicating with other health rehab care assistant, indepentently interpreting results, counseling the patient and care coordination
[2024-05-21] MEDS: Insulin Aspart 300 UNITS/3 ML PEN SC ×3 (08:19→17:05)
[2024-05-21] MEDS: Torsemide 20 MG TAB 40 MG PO (08:20)
[2024-05-21] MEDS: Finasteride 5 MG TAB PO (08:20)
[2024-05-21] MEDS: Multivitamin TAB 1 TAB PO (08:20)
[2024-05-21] MEDS: Polyethylene Glycol 3350 17 GM PACKET PO (08:21)
[2024-05-21] MEDS: Normal Saline Flush 10 ML SYR IVP ×4 (08:21→20:29)
[2024-05-21] MEDS: Aspirin E.C. 81 MG TABEC PO (08:21)
[2024-05-21] MEDS: Triamcinolone 0.1% CR 15 GM TUBE TP ×2 (09:07→22:27)
--- NOTE | 2024-05-21 10:07 | PT.INIE ---
Date of service: 05/21/24 Time of Service: 09:15 PT Notes Visit Reasons: UTI, Pyelonephritis Weakness Inpatient Physical Therapy Evaluation Date: May 21, 2024 Referring Doctor: Yesenia Luis PT Orders: PT CONSULT: Fall Safety Assessment Precautions: Standard, Falls Patient Profile/Admitting Diagnosis: Sav is a 83 year old male with past medical history of CKD managed at [facility], HFpEF with an LVEF of 55 as of 01/07/2023, obesity, chronic kidney catheter, atrial fibrillation anticoagulated on Coumadin, LUCAS, diabetes, hyperlipidemia presented yesterday in the ED at [facility] via EMS for evaluation of weakness. Sav notes he was using his walker to walk to the bathroom and his knees gave out and causing him to fall. Notes that his R leg got caught underneath him. PMHX: (Updated 05/20/24 @ 14:41 by Silas Del Cid DO) Acute UTI (Acute) Dyspnea (Acute) Palliative care patient (Acute) Deficit in activities of daily living (ADL) (Acute) Encounter for hospice care discussion (Acute) Edema (Acute) Cloudy urine (Acute) Lesion of pancreas (Acute) Obstructive uropathy (Acute) 06/12/23 Per [facility] [place] -hbNeed for home health care (Acute) History of fall (Acute) Noninfected skin tear of left lower extremity (Acute) Fall (Acute) Advance care planning (Acute) Skin tear of left lower leg without complication (Acute) Hyperkalemia (Acute) VRE (vancomycin resistant enterococcus) culture positive (Acute) Hydronephrosis, left (Acute) Hyperphosphatemia (Acute) Pressure ulcer of right ischium (Acute) Chronic indwelling Knox catheter (Acute) Acute renal failure (Acute) Acute UTI (Acute) Diabetes mellitus (Chronic) Atrial fibrillation (Chronic) on coumadinChronic kidney disease (Chronic) 2020- borderline stage 4Venous insufficiency (chronic) (peripheral) (Acute) Nail dystrophy (Acute) COVID-19 (Acute ~08/05/22) Thumb pain (Acute) Right heart failure (Acute) Urinary retention (Acute) 11/2021, ultrasound shows significant pretty and post void residual- minimal response to voidingKidney stones (Chronic) Longstanding history of multiple stones 11/2021 ultrasound showed multiple stones in kidney, 1 stone possibly in right ureterAnemia (Chronic) Chronic mild anemia, associated with CKDObstructive sleep apnea (Chronic) cpapAcute on chronic heart failure with preserved ejection fraction (Acute) Hives (Acute) Obesity (Acute 02/11/13) Obstructive nephropathy (Acute) Moderate pulmonary arterial systolic hypertension (Chronic) Chronic anticoagulation (Chronic) Polyp of colon (Chronic) Rosacea (Chronic) Constipation (Chronic) CHF (congestive heart failure) (Chronic) Medical History Chondrocalcinosis articularis Arthritis of right shoulder region Arthritis of right wrist Right wrist pain Obesity hypoventilation syndrome Atrial fibrillation Nephrolithiasis BPH (benign prostatic hyperplasia) GERD (gastroesophageal reflux disease) Hyperlipidemia Essential hypertension, benign LUCAS on CPAP Diabetes mellitus type 2 in obese Surgical History Replacement of total knee joint B/LTonsillectomy and adenoidectomy Colonoscopy - MAC (~2002) Cholecystectomy (~1985) Social History/Home Situation: Patient lives with Lashawn in a 3 floor house with ramp to enter. Everything that he needs is on one level. Utilizes his rollator walker at all times for ambulation. Does have a power wheelchair to assist getting into/out of car. Requires assistance from his for his legs in/out of bed and car. Does report that he drives. also assists him with bathing/dressing. 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 They have one supportive daughter who lives locally.? states that she uses a device that she holds up to him so that he can pull on it to sit up in bed.? Current Functional Limitations: Decreased activity tolerance, unable to bear weight on R LE since fall. Requires rollator walker for all ambulation prior to hospital admission. Equipment Owned/DME: Rollater, shower chair, grab bars, power wheelchair, elevating bed, power recliner Subjective: Sav notes that his R knee is really bothering him since his fall. Is unsure he is going to be able to place pressure on his leg secondary to this. Is agreeable to PT evaluation and treatment. Objective: General Observation: Catheter, telemetry, significant swelling R knee- ice packs in place at start of PT consult Mental Status: Alert and oriented x3 Pain: 0/10 at rest, 5/10 with any movement of the R knee. Unable to bear any weight thru the R LE. Requires significant assistance with all transfers and mobility ROM: Right Upper Extremity: R shoulder mobility is significantly limited. Elbow wrist and hand WFL Left Upper Extremity: L shoulder mobility is significantly limited. Elbow wrist and hand WFL Right Lower Extremity: Hip flexion 80 degrees, hip abduction 20 degrees, knee flexion in supine 35 degrees, in seated position 80 degrees, lacking 20 degrees of terminal knee extension. Limited ankle ROM Left Lower Extremity: Hip flexion 90 degrees, hip abduction 25 degrees, knee flexion 100 degrees, knee extension lacking 10 degrees, limited ankle ROM Strength: Right Upper Extremity: Shoulder flexion 3/5, abduction 3/5, bicep 4/5, good functional grasp Left Upper Extremity: Shoulder flexion 3/5, abduction 3/5, bicep 4/5, good functional grasp Right Lower Extremity: Unable to complete independent SLR in supine secondary to pain R knee. Hip flexion 3+/5, knee flexion 4-/5, DF 4/5 Left Lower Extremity: Independent with active SLR in supine, hip flexion 4-/5, knee extension 4/5, knee flexion 4+/5, DF 4/5 Bed Mobility/Transfers: supine-sit: modAx2 sit-supine: modAx2 sit-stand: unable with modAx2 -unable to bear weight on R LE Patient was able to scoot up in bed mod A x2 to assume correct position in bed upon transfer from sit to supine. Gait: Unable to assess. Patient unable to bear weight on R LE secondary to knee pain. Xrays ordered Balance: Static Sitting: Good Dynamic Sitting: Good Static Standing: N/A Dynamic Standing: N/A Special Tests: Mobility Limitations Standardized Measure [facility] AM-PAC 6 clicks Basic Mobility Inpatient Short Form: Raw Score: 8 CMS Score:87% Informed Consent/Education: Patient instructed in purpose of PT consult and plan of care. Assessment: Patient is a 83 year old male referred to physical therapy services with the diagnosis of UTI,pyelonephritis, and weakness. Patient presents with clinical signs and symptoms consistent with diagnosis, as demonstrated by the following impairment level findings: 1.? Decreased strength to B UE/LE major muscle groups 2.? Impaired sitting/standing balance 3.? Impaired activity tolerance/endurance 4.? Obesity 5.? Shortness of breath 6.? fearfulness of falling 7.? Generalized pain Impairments are contributing to the following functional limitations: 1.? Dependent bed mobility skills 2.? Increased dependence with transfers 3.? Inability to safely ambulate without assistive device and physical assistance 4.? Increase completion time for mobility ADL performance 5.? Increased fall risk 6.? Inability to negotiate steps alone safely 7.? AMPAC score of 87% deficit Patient is assessed as a Moderate 62751 complexity based on the following: History: As above Examination: As above Presentation: Evolving Decision Making: Moderate Complexity Goals: Goals X1 week 1. Supine-Sit min A x1 2. Sit-Supine minAx1 3. Sit-Stand minAx1 with FWW 4. Stand-Sit supervision 5. Bed-Chair minAx1 with FWW 6. Chair-Bed minAx1 with FWW 7. Gait- minAx1 with FWW 8. Standing Balance fair to good with FWW Plan of Care/Treatment Plan: 1-2x/day, 7 days/week x 1 week. Plan of care has been reviewed with the [employer] TECHNICIAN providing the service under Physical Therapy direction. Initiate Physical Therapy intervention for strengthening, bed mobility, transfers, gait, stairs, balance training, use of assistive device. DISCHARGE RECOMMENDATIONS: SNF for continued rehabilitation. [facility] benefit [facility] for continued skilled physical therapy services in order to progress mobility level, strength, and balance in preparation for a safe discharge to home. TREATMENT CODE/TIME: 33344 30 minutes IE 9:15 am [facility] Please sign an return this page within 30 days if you agree with the above POC. Thank you! Physician Signature Date [facility] Disclaimer: This note was created using [employer] voice recognition software. It was reviewed for major content. However, there may be multiple small discrepancies and errors due to the voice recognition aspects of the software.
--- NOTE | 2024-05-21 10:45 | DI.RAD_ITS ---
Exam(s) XR KNEE RT 3V AP,LAT,NEPTALI EXAM: XR KNEE RT 3V AP,LAT,NEPTALI CLINICAL HISTORY: Pain post fall. TECHNIQUE: 2D digital imaging was performed. Three images were obtained. AP, AP tunnel and lateral views were obtained. COMPARISON: No priors for comparison. FINDINGS: BONES: There are postsurgical changes of a right total knee replacement. There is a lucency seen deric ng the prosthetic-bone interface in the medial tibial plateau. This may represent loosening or infec tion. No fracture or dislocation. JOINTS: There is a slight tilt of the tibial component medially. There is a joint effusion. SOFT TISSUE: Vascular calcifications are present. IMPRESSION: 1. There is lucency seen along the prosthetic-bone interface in the medial tibial plateau which may r epresent loosening. There is also mild tilt of the tibial component. Follow-up as clinically approp riate. 2. Joint effusion. 3. No fracture is identified. DATA REPOSITORY: RADIATION DOSE DELIVERED:
--- NOTE | 2024-05-21 11:37 | DI.VRAD_ITS ---
PROCEDURE INFORMATION: Exam: XR Right Knee Exam date and time: 05/21/2024 10:53 AM Age: 83 years old Clinical indication: Injury or trauma; Fall and other: Approx. 1 day ago per patient; Blunt trauma; Knee; Right; Prior surgery; Surgery date: 6+ months; Surgery type: Replacement TECHNIQUE: Imaging protocol: Radiologic exam of the right knee. Views: 3 views. COMPARISON: US extremity venous BI 04/18/2019 1:00 PM FINDINGS: Bones/joints: Total arthroplasty. No component displacement or bone stock fracture. The cement bone interface is intact. Soft tissues: Nonspecific suprapatellar bursa effusion. Vasculature: The vasculature demonstrates diffuse moderate-severe atherosclerotic calcification. IMPRESSION: Total right knee arthroplasty. No bone stock fracture component displacement. Dictated and Authenticated by: Juan Rodarte MD. Ordering:RHONDA Ang MD
[2024-05-21 11:39] VITALS: BP 100/48; PULSE 60; RESP 19; TEMP 36.5; O2SAT 98
[2024-05-21] MEDS: Metoprolol CR 25 MG TABCR PO ×2 (12:04→20:28)
[2024-05-21 12:48] LABS: Bilirubin Negative (Negative); Blood Large (Negative); Clarity Clear (Clear); Glucose Negative (Negative); Ketones Negative (Negative); Leukocyte Esterase Large (Negative); Nitrite Negative (Negative); Urobilinogen 0.2 mg/dL (Up to 0.2)
[2024-05-21 13:00] LABS: Bacteria Few HPF (Negative); C & S Indicated? Yes; Casts Negative LPF (Negative); Crystals Negative HPF (Negative); Epithelial Cells Few HPF (Negative); Mucus Trace (Negative); RBC 20-50 HPF (0-2); WBC 20-50 HPF (0-5)
[2024-05-21] MEDS: CEFEPIME 2 GM in Normal Saline 100 ML IVPB (13:58)
[2024-05-21] MEDS: MAGNESIUM SULFATE 4 GM/100 ML BAG IVINF (16:35)
[2024-05-21 16:55] VITALS: BP 115/59; PULSE 72; RESP 20; TEMP 37.2; O2SAT 98
[2024-05-21 18:49] VITALS: RESP 20
[2024-05-21] MEDS: Pravastatin 40 MG TAB PO (20:28)
[2024-05-21] MEDS: Melatonin 3 MG TAB 9 MG PO (20:28)
[2024-05-21] MEDS: Docusate Sodium 100 MG CAP PO (20:29)
[2024-05-21] MEDS: Gabapentin 100 MG CAP 200 MG PO (20:29)
[2024-05-21] MEDS: Tamsulosin 0.4 MG CAPCR PO (20:29)
[2024-05-21] MEDS: Insulin Glargine 300 UNITS/3 ML PEN 30 UNITS SC (20:37)
[2024-05-21 20:47] VITALS: BP 103/58; PULSE 55; RESP 20; TEMP 36.5; O2SAT 96
[2024-05-21] MEDS: Acetaminophen 500 MG TAB 1000 MG PO (22:27)
[2024-05-22] VITALS (11 sets, daily range): BP systolic 82–103; BP diastolic 46–69; PULSE 54–72; RESP 18–28; TEMP 36.1–36.7; O2SAT 94–98
[2024-05-22] MEDS: traMADol 50 MG TAB 25 MG PO ×2 (03:20→15:38)
[2024-05-22 06:49] LABS: Abs Immature Grans 0.03 10^3/uL (0.0-0.06); Absolute Basophil Count 0.02 10^3/uL (0.0-0.2); Absolute Eosinophil Count 0.18 10^3/uL (0.0-0.7); Absolute Lymphocyte Count 0.95 10^3/uL (1.2-3.4); Absolute Monocyte Count 0.62 10^3/uL (0.1-0.8); Basophils % 0.4 %; Eosinophils % 3.8 %; HCT 25.2 % (40.0-50.0); HGB 8.1 g/dL (13.5-17.5); Immature Grans % 0.6 %; Lymphocytes % 20.2 %; MCH 29.2 pg (27.0-33.0); MCHC 32.1 % (32.0-36.0); MCV 91 fL (80-95); MPV 9.7 fL (8.0-11.0); Monocytes % 13.2 %; Neutrophils % 61.8 %; Platelet Count 141 10^3/uL (130-400); RBC 2.77 10^6/uL (4.36-5.78); RDW 15.3 % (11.8-14.1); RDW-SD 50.8 fL
[2024-05-22 07:00] LABS: INR 1.7 (0.9-1.1); Prothrombin Time 16.6 sec (9.1-11.1)
[2024-05-22 07:01] LABS: Magnesium 2.2 mg/dL (1.8-2.4)
[2024-05-22 07:02] LABS: Anion Gap 8.9 mmol/L (3-11); BUN 50 mg/dL (7-18); CO2 26.1 mmol/L (21.0-32.0); Chloride 100 mmol/L (98-107); Diff Comment RBC Morph Reviewed; Estimated GFR 11.02 (mL/min/1.73m2); Glucose 173 mg/dL (74-106); Hypochromasia 1+; Polychromasia Present; Potassium 3.6 mmol/L (3.5-5.1); Sodium 135 mmol/L (136-145)
[2024-05-22 07:06] LABS: CREATININE 4.9 mg/dL (0.70-1.30)
--- NOTE | 2024-05-22 07:36 | W.PC.ACHO ---
Registration Status: ADM IN Primary Language: Preferred Language: Lao ED Information & Data Chief Complaint Urinary 05/20/24 16:36 Chief Complaint Urinary 05/20/24 14:20 Medical / Surgical History (Last Reviewed 05/20/24 @ 14:19 by Silas Del Cid DO) Chondrocalcinosis articularis Arthritis of right shoulder region Arthritis of right wrist Right wrist pain Obesity hypoventilation syndrome Atrial fibrillation Nephrolithiasis BPH (benign prostatic hyperplasia) GERD (gastroesophageal reflux disease) Hyperlipidemia Essential hypertension, benign LUCAS on CPAP Diabetes mellitus type 2 in obese (Last Reviewed 05/20/24 @ 14:19 by Silas Del Cid DO) Replacement of total knee joint Tonsillectomy and adenoidectomy Colonoscopy - MAC (~2002) Cholecystectomy (~1985) Most Recent Vital Signs Temperature 36.7 C 05/22/24 03:00 Temperature Source Temporal Artery Scan 05/22/24 03:00 Pulse 68 05/22/24 03:00 Pulse Rhythm Irregular 05/21/24 20:25 Pulse 68 05/20/24 16:30 Respiratory Rate 24 05/22/24 03:00 Respiratory Effort Short of Breath 05/21/24 20:25 Respiratory Depth Shallow 05/21/24 20:25 Respiratory Pattern Normal 05/21/24 20:25 Blood Pressure 102/68 05/22/24 03:00 Blood Pressure Mean 62 05/20/24 16:17 Blood Pressure Position Sitting 05/20/24 16:36 Pulse Oximetry 96 05/22/24 03:00 Oxygen Delivery Method Bi-pap 05/22/24 03:00 Oxygen Flow Rate 0 05/22/24 03:00 Fraction of Inspired Oxygen (FIO2) 21 05/21/24 18:49 Pain Level 8 05/22/24 03:20 Comment Home bipap w/ 2L 05/22/24 00:00 Allergies No Known Allergies Allergy (Verified 12/23/23 17:57) Active Medications Generic Name Dose Route Start Last Admin Trade Name Freq PRN Reason Stop Dose Admin Acetaminophen 1,000 mg 05/21/24 23:00 05/21/24 22:27 Acetaminophen 500 Mg Tab PO 1,000 mg TID AIDEE Administration Aspirin 81 mg 05/20/24 19:20 05/21/24 08:21 Aspirin E.C. 81 Mg Tabec PO 81 mg DAILY AIDEE Administration Docusate Sodium 100 mg 05/21/24 20:00 05/21/24 20:29 Docusate Sodium 100 Mg Cap PO 100 mg BID AIDEE Administration Finasteride 5 mg 05/21/24 08:30 05/21/24 08:20 Finasteride 5 Mg Tab PO 5 mg DAILY AIDEE Administration Gabapentin 200 mg 05/20/24 20:00 05/21/24 20:29 Gabapentin 100 Mg Cap PO 200 mg HS AIDEE Administration Cefepime HCl 2 gm/ Sodium 100 mls @ 200 mls/hr 05/21/24 14:00 05/21/24 15:41 Chloride IVPB Infused Q24H AIDEE Infusion Insulin Aspart 0 units 05/21/24 08:00 05/21/24 17:05 Insulin Aspart 300 Units/3 Ml Pen SC 4 units 0800,1200,1700 AIDEE Administration Protocol Insulin Glargine 30 units 05/20/24 20:00 05/21/24 20:37 Insulin Glargine 300 Units/3 Ml Pen SC 30 units HS AIDEE Administration Melatonin 9 mg 05/21/24 20:00 05/21/24 20:28 Melatonin 3 Mg Tab PO 9 mg HS AIDEE Administration Metoprolol Succinate 25 mg 05/20/24 20:00 05/21/24 20:28 Metoprolol Cr 25 Mg Tabcr PO 25 mg BID AIDEE Administration Multivitamins 1 tab 05/21/24 08:30 05/21/24 08:20 Multivitamin Tab PO 1 tab DAILY AIDEE Administration Polyethylene Glycol 17 gm 05/21/24 08:30 05/21/24 08:21 Polyethylene Glycol 3350 17 Gm Packet PO 17 gm DAILY AIDEE Administration Pravastatin Sodium 40 mg 05/20/24 20:00 05/21/24 20:28 Pravastatin 40 Mg Tab PO 40 mg QPM AIDEE Administration Sodium Chloride 0 ml 05/20/24 16:50 05/21/24 16:36 Normal Saline Flush 10 Ml Syr IVP 10 ml PRN PRN Administration Sodium Chloride 0 ml 05/20/24 20:00 05/21/24 20:29 Normal Saline Flush 10 Ml Syr IVP 10 ml BID AIDEE Administration Tamsulosin HCl 0.4 mg 05/20/24 20:00 05/21/24 20:29 Tamsulosin 0.4 Mg Capcr PO 0.4 mg HS AIDEE Administration Torsemide 40 mg 05/21/24 08:30 05/21/24 08:20 Torsemide 20 Mg Tab PO 40 mg DAILY AIDEE Administration Tramadol HCl 25 mg 05/21/24 16:36 05/22/24 03:20 Tramadol 50 Mg Tab PO 25 mg Q12H PRN PRN Administration Triamcinolone Acetonide 0 gm 05/20/24 20:00 05/21/24 22:27 Triamcinolone 0.1% Cr 15 Gm Tube TP 1 applic BID AIDEE Administration Warfarin Sodium 2.5 mg 05/21/24 20:00 05/21/24 20:29 Warfarin 2.5 Mg Tab PO 2.5 mg DAILY@1999 AIDEE Administration IV IV Catheter Type [Left Saline Lock Antecubital] IV Catheter Gauge [Left 20 Antecubital] Diagnostics 05/22/24 05/21/24 05/21/24 Range/Units 06:25 12:20 06:20 WBC 4.70 4.44 (4.4-10.8) 10^3/uL RBC 2.77 L 2.70 L (4.36-5.78) 10^6/uL Hgb 8.1 L 7.8 L (13.5-17.5) g/dL Hct 25.2 L 24.6 L (40.0-50.0) % MCV 91 91 (80-95) fL MCH 29.2 28.9 (27.0-33.0) pg MCHC 32.1 31.7 L (32.0-36.0) % RDW 15.3 H 15.2 H (11.8-14.1) % Plt Count 141 135 (130-400) 10^3/uL MPV 9.7 9.5 (8.0-11.0) fL Immature Gran % 0.6 0.5 % Neutrophils % 61.8 64.9 % Lymphocytes % 20.2 19.1 % Monocytes % 13.2 13.5 % Eosinophils % 3.8 1.8 % Basophils % 0.4 0.2 % Nucleated RBC % 0.0 0.0 (0.0-0.3) % Absolute Neutrophils 2.90 2.88 (1.2-6.7) 10^3/uL Absolute Lymphocytes 0.95 L 0.85 L (1.2-3.4) 10^3/uL Absolute Monocytes 0.62 0.60 (0.1-0.8) 10^3/uL Absolute Eosinophils 0.18 0.08 (0.0-0.7) 10^3/uL Absolute Basophils 0.02 0.01 (0.0-0.2) 10^3/uL RBC Morphology See Below See Below Polychromasia Present Hypochromasia 1+ 2+ Basophilic Stippling Present PT 16.6 H (9.1-11.1) sec INR 1.7 H (0.9-1.1) Sodium 135 L 139 (136-145) mmol/L Potassium 3.6 3.6 (3.5-5.1) mmol/L Chloride 100 104 (98-107) mmol/L Carbon Dioxide 26.1 26.6 (21.0-32.0) mmol/L Anion Gap 8.9 8.4 (3-11) mmol/L BUN 50 H 46 H (7-18) mg/dL Creatinine 4.9 H* 4.8 H* (0.70-1.30) mg/dL Est GFR (CKD-EPI 2020) 11.02 11.30 (mL/min/1.73m2) Glucose 173 H 144 H (74-106) mg/dL Calcium 9.0 9.0 (8.5-10.1) mg/dL Magnesium 2.2 1.5 L (1.8-2.4) mg/dL Troponin I 65 H* (< or =60) ng/L Urine Color Yellow (Yellow) Urine Clarity Clear (Clear) Urine pH 6.0 (5-8) Ur Specific Reubens 1.020 (1.005-1.025) Urine Protein 100 H (Neg-Trace) mg/dL Urine Ketones Negative (Negative) mg/dL Urine Blood Large H (Negative) Urine Nitrite Negative (Negative) Urine Bilirubin Negative (Negative) Urine Urobilinogen 0.2 (Up to 0.2) mg/dL Ur Leukocyte Esterase Large H (Negative) Urine RBC 20-50 H (0-2) HPF Urine WBC 20-50 H (0-5) HPF Ur Epithelial Cells Few (Negative) HPF Urine Crystals Negative (Negative) HPF Urine Bacteria Few (Negative) HPF Urine Casts Negative (Negative) LPF Urine Mucus Trace (Negative) Ur Culture Indicated? Yes Urine Glucose Negative (Negative) mg/dL 05/20/24 12:42 Blood Culture - Preliminary Blood NO GROWTH 24 HOURS 05/20/24 12:01 Blood Culture - Preliminary Blood NO GROWTH 24 HOURS 05/21/24 12:20 Urine Culture - Pending Urine - Reflex from Ua 05/20/24 12:43 Urine Culture - Preliminary Urine - Cath Griffin Indwelling Gram Negative Jose [id number] Documentation Fingerstick Glucose Start: 05/20/24 15:23 Freq: .ACHS Status: Active Protocol: Activity Type Activity Date Activity User E-sign Co-sign Detail Recorded Client Recorded Date Recorded By Document 05/21/24 20:37 BKG DAEMON(10) [id number] 05/21/24 20:39 BKG DAEMON(10) Intake and Output - 24 Hour Total 05/20/24 11:22 thru 05/22/24 03:31 Intake Total 3110 Output Total 3825 Balance -715 Weight 152 kg Intake: IV 1310 Oral 1800 Output: Urine 3825 Other: Urine Color Straw Urine Appearance Cloudy Urine Odor None Voiding Methods Indwelling Catheter Urinary Catheter Urinary Catheter Date of 05/20/24 Insertion [Uretheral (Griffin)] Urinary Catheter Date of 05/20/24 Insertion [Uretheral (Griffin)] Time of insertion [Uretheral ( 12:30 Griffin)] Falls Risk Assessment History of Falls Admit Due to Fall 05/20/24 16:55 Contributing Factors Unstable 05/20/24 16:55 Ambulatory Aids Uses ambulatory device + 05/20/24 16:55 Tubes/Lines With any additional score 05/20/24 16:55 Gait Evaluation W/any additional score 05/20/24 16:55 Cognition No cognitive impairment 05/20/24 16:55 Fall Total Score 98 05/20/24 16:55 Level of Risk Maximum Risk 05/20/24 16:55 Problems (Last Reviewed 05/20/24 @ 14:19 by Silas Del Cid DO) Contraindication to deep vein thrombosis (DVT) prophylaxis (Acute) Elevated troponin (Acute) Acute UTI (Acute) Palliative care patient (Acute) Deficit in activities of daily living (ADL) (Acute) v v v v v v v v v Sending and/or Receiving Nurses: Please use comment section below to note any information pertinent to the patient hand-off not included above. Information / Comments: A/o x4, chronic griffin, dark and cloudy, UTI, being cultured, griffin changed in ER, VSS, afebrile, HR irregular on Tele, weak, fall at home, Lung sounds clear, scattered bruising. Report received from: Report received from CECI Villafuerte, 05/20/24
--- NOTE | 2024-05-22 08:00 | DI.US_ITS ---
Exam(s) US RENAL EXAM: US RENAL CLINICAL HISTORY: pyelonephritis TECHNIQUE: Ultrasound of both kidneys performed using standard protocol. COMPARISON: US US RENAL from 04/03/2023 FINDINGS: Exam is limited due to body habitus and patient being immobile. KIDNEYS: Kidneys exhibit normal size measuring 11.6 cm on the right and 11.1 cm on the left. Bilateral calculi are again noted, largest on the right measuring 7 mm and largest on left measuring 8 mm. In addition, there are bilateral cysts again noted, the largest being on the right kidney and measuring 5 cm. In the superior aspect of the left kidney there is a cystic appearing finding measur ing 2 cm size but color flow imaging reveals some internal flow and therefore this may be a solid nod ule. Also in the left kidney is a semi lunar are hypoechoic structure which may be a calculus versus possi ble nephrostomy tube. There is no hydronephrosis on either side. URINARY BLADDER: Urinary bladder volume is 38 cc. Poorly visualize due to body habitus. Ureterovesical jets were not able to be identified. IMPRESSION: 1. There is no hydronephrosis on either side. 2. Bilateral renal cysts measuring up to 5 cm (right kidney). 3. Bilateral intra- renal calculi 4. Possible process me tube in the left kidney. 5. There is a 2 cm cystic appearing finding in the superior pole the left kidney which, upon color f low imaging, reveals some internal color flow and therefore this may be a solid nodule/neoplasm in th e superior pole of the left kidney. Apparently difficult to evaluate because of patient was not able to be cooperative with respect to movement and related to body habitus. DATA REPOSITORY:
[2024-05-22] MEDS: Aspirin E.C. 81 MG TABEC PO (08:31)
[2024-05-22] MEDS: Acetaminophen 500 MG TAB 1000 MG PO ×3 (08:31→20:15)
[2024-05-22] MEDS: Insulin Aspart 300 UNITS/3 ML PEN SC ×3 (08:32→16:46)
[2024-05-22] MEDS: Polyethylene Glycol 3350 17 GM PACKET PO (08:32)
[2024-05-22] MEDS: Finasteride 5 MG TAB PO (08:32)
[2024-05-22] MEDS: Docusate Sodium 100 MG CAP PO ×2 (08:32→20:17)
[2024-05-22] MEDS: Multivitamin TAB 1 TAB PO (08:32)
[2024-05-22] MEDS: Normal Saline Flush 10 ML SYR IVP ×2 (08:33→20:51)
--- NOTE | 2024-05-22 09:33 | INITIAL_ITS ---
Date of service: 05/22/24 Time of Service: 09:33 Care Management Initial Assmt Initial Assessment Reason for Hospitalization: UTI Functional Status/Living Situation Patient Presentation: Sav was sitting up in bed when CM met with him. He was agreeable to conversation and engaged well with CM. Sav shared that hew has one child, a daughter, but they are estranged. He lives alone with his who has MS. She is still doing well he shared and is in remission. Sav needs assistance with showering and dressing but he can feed and toilet himself independently. He uses a walker all of the time and occasionally, an electric wheelchair. Lashawn helps with his ADLs and prepares all of their meals. Both Sav and Lashawn continue to drive. 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 Walker. Cpap Advance Directives Advance Directives: Do you have an Advance Directive: Y 07/12/23 07:58 AD On File at [facility]: Y 07/12/23 07:58 Date Asked 03/24/23 05/21/24 07:50 AD Date Reviewed 05/20/24 05/21/24 07:50 COLST On File at [facility] Yes 04/13/23 00:58 COLST Date Scanned 04/13/23 04/13/23 00:58 Code Status Resuscitation Status Full Code Insurance Coverage/Financial Issues Insurance: [employer] Medicare Replacement ACO Member: No Care Team Visit Care Team Role Provider Type Gordo Doimnguez MD Primary Care Provider [facility] STAFF PHYSICIAN Denisha Santiago RDN, [facility] Other Providers P 3 [employer]ENT[employer] IMA TECHNICIAN Michelle Tabares Other Providers P 3 ARMAMENT/ORDNANCE IMA TECHNICIAN David Bucio Other Providers OTHER Naveen Santos MD Other Providers [facility] STAFF PHYSICIAN Maynor Obando RDN Other Providers P 3 ARMAMENT/ORDNANCE IMA TECHNICIAN Silas Del Cid DO Emergency Provider [facility] STAFF PHYSICIAN Song Donovan MD Admit Provider [facility] STAFF PHYSICIAN Attending Provider Discharge Potential Discharge Needs: PCP F/U Appt Anticipated Barriers to Discharge: None Identified Patient/Family Education Needs: Review discharge instructions, discuss Ask Me Three Transportation: Private vehicle Plan: Sav was admitted with a Uti and weakness. PT has recommended SNF for short term rehab, however Sav is not willing to consider that option. He did agree to home health services for PT however. He will follow up with his community providers and plan of care and transport with his . CM will follow and continue to assess for discharge needs. PFSH All Active Problems (Updated 05/22/24 @ 14:09 by Yesenia Luis APRN) Hypomagnesemia (Acute) Right knee pain (Acute) Contraindication to deep vein thrombosis (DVT) prophylaxis (Acute) Elevated troponin (Acute) Acute UTI (Acute) Dyspnea (Acute) Palliative care patient (Acute) Deficit in activities of daily living (ADL) (Acute) Encounter for hospice care discussion (Acute) Edema (Acute) Cloudy urine (Acute) Lesion of pancreas (Acute) Obstructive uropathy (Acute) 06/12/23 Per [facility] [place]. -hb Need for home health care (Acute) History of fall (Acute) Noninfected skin tear of left lower extremity (Acute) Fall (Acute) Advance care planning (Acute) Skin tear of left lower leg without complication (Acute) Hyperkalemia (Acute) VRE (vancomycin resistant enterococcus) culture positive (Acute) Hydronephrosis, left (Acute) Hyperphosphatemia (Acute) Pressure ulcer of right ischium (Acute) Chronic indwelling Knox catheter (Acute) Acute renal failure (Acute) Acute UTI (Acute) Diabetes mellitus (Chronic) Atrial fibrillation (Chronic) on coumadin Chronic kidney disease (Chronic) 2020- borderline stage 4 Venous insufficiency (chronic) (peripheral) (Acute) Nail dystrophy (Acute) COVID-19 (Acute ~08/05/22) Thumb pain (Acute) Right heart failure (Acute) Urinary retention (Acute) 11/2021, ultrasound shows significant pretty and post void residual- minimal response to voiding Kidney stones (Chronic) Longstanding history of multiple stones 11/2021 ultrasound showed multiple stones in kidney, 1 stone possibly in right ureter Anemia (Chronic) Chronic mild anemia, associated with CKD Obstructive sleep apnea (Chronic) cpap Acute on chronic heart failure with preserved ejection fraction (Acute) Hives (Acute) Obesity (Acute 02/11/13) Obstructive nephropathy (Acute) Moderate pulmonary arterial systolic hypertension (Chronic) Chronic anticoagulation (Chronic) Polyp of colon (Chronic) Rosacea (Chronic) Constipation (Chronic) CHF (congestive heart failure) (Chronic) Medical History 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 Daughter No problems noted. Social History Smoking/Tobacco Use Status: Never Second Hand Exposure: No Smoking risk assessment performed?: Yes Alcohol Intake: current Alcohol Intake frequency: holidays/special occasions only Drug use: Never Substance use type: does not use Caregiver/Support person: Yes Household members: spouse Housing: house Communication Needs: Hard of Hearing Do you need help understanding health information?: Often Pets and animals: No Sexually active: No What is your relationship status?: How often do you talk on the phone with friends or family?: decline to answer How often do you get together with friends or relatives?: decline to answer How often do you attend anglican or scientologist services?: decline to answer Do you belong to any clubs or organized social groups?: decline to answer Panel score (0-1 are the most socially isolated patients): 1 What type of physical activity do you participate in: walking Duration: < 15 minutes/day Frequency: daily Special amor needs: No Do you feel safe at home: Yes Do you feel safe in your relationship?: Yes SDOH(Care Management) Screening Will the Patient Participate in the Screening?: Yes Do you worry about having a steady place to live?: yes Problems where you live: no known problems In the past 12 months, have you had to go without electric, gas, oil or water in your home?: no Have you or anyone in your house had to go without enough food to eat?: no Has lack of transportation kept you from medical appointments or from doing things needed for daily living?: no Has anyone in your support network made you feel unsafe for any reason?: no Health Related Social Needs Health related social needs: housing instability, housed, with risk of homelessness(Z59.591)
--- NOTE | 2024-05-22 10:00 | PGE_ITS ---
Date of Service Date of service: 05/22/24 Time of Service: 10:00 Assessment and Plan Assessment and plan (1) Acute UTI: Status: Acute Assessment and plan: Positive UA in the ED Continue Cefepime at renal dose Renal US for suspected early pyelonephritis as per ED provider: pending Urine cultures showed GNR further results pending Urology consult pending IF SBP < 90 w MAP 55n will consider small bolus of fluid (2) Elevated troponin: Status: Acute Assessment and plan: troponins trending down , max 72 w/o symptoms of ACS EKG was negative for ischemia, atrial fibrillation at 50 bpm Echo US resulted in an LVEF of 55%, RVSP of 26.5 mmHg, with normal overall left ventricular systolic function without ventricular septal defect. The quality of the study was poor technically limited due to body habitus and inability to position the patient adequately; study done in the supine position. The right ventricular systolic function could not be assessed due to poor visualization of the right ventricle. Reporting notes no M V S, mild MR, no TVS with mild TR, no PVS. IVC of normal size with over 50% collapse with inspiration. No pericardial effusion noticed. Telemetry discontinued (3) Palliative care patient: Status: Acute Assessment and plan: Palliative care consult pending Previous COLST in chart will inquire Expressed wish to be a full code and for short term intubation on admission (4) Deficit in activities of daily living (ADL): Status: Acute Assessment and plan: PT consult : Difficulty working w PT Managing right knee pain to improve patient's ability to work with physical therapy (5) Contraindication to deep vein thrombosis (DVT) prophylaxis: Status: Acute Assessment and plan: On warfarin for A-fib INR 1.8 on 05/21 and today INR is again 1.7 with goal between 2 and 3 Will give an additional 1 mg of warfarin; patient was already getting 2.5 mg daily PT/INR in a.m. (6) Right knee pain: Status: Acute Assessment and plan: XR negative for fracture or hardware displacement Scheduled APAP PRN tramadol Ice pack PRN PT consult in progress Consideration given to ortho consult but will evaluate effectiveness of current interventions (7) Hypomagnesemia: Status: Acute Assessment and plan: Magnesium level was 1.5 on 05/21/2024 Supplementation completed and mag level at 2.2 today. QTc on EKG tracing remains at 0.44 this morning despite magnesium correction; will discontinue telemetry Discussed with Dr. Lozano Subjective Subjective Patient reports: still having pain, tolerating liquids well, tolerating a regular diet, flatus and diarrhea; denies no bowel movement, nausea, vomiting, shortness of breath or fever Exam Narrative Exam Narrative: Constitutional The patient is in bed comfortable except for right knee pain on mobilization Neuro:alert and oriented X 4, no deficit Resp: clear lung bilaterally Cardio:telemetry atrial -fib HR in the 50's, S1, S2, distant , positive bilateral radial and pedal pulses , TEDs in place GI: Abdomen is obese not distended, soft and non tender, bowel sounds are present : Negative Costovertebral angle tenderness, chronic griffin in place from 05/20 replaced in ED Psych: RASS 0, congruent mood and normal affect. Objective Last Vital Signs Temp 36.1 C L 05/22/24 07:28 Pulse 54 L 05/22/24 07:28 Resp 19 05/22/24 07:28 BP 103/64 05/22/24 07:28 Pulse Ox 98 05/22/24 07:28 Laboratory Results - last 24 hr 05/21/24 05/22/24 12:20 06:25 WBC 4.70 RBC 2.77 L Hgb 8.1 L Hct 25.2 L MCV 91 MCH 29.2 MCHC 32.1 RDW 15.3 H Plt Count 141 MPV 9.7 Immature Gran % 0.6 Neutrophils % 61.8 Lymphocytes % 20.2 Monocytes % 13.2 Eosinophils % 3.8 Basophils % 0.4 Nucleated RBC % 0.0 Absolute Neutrophils 2.90 Absolute Lymphocytes 0.95 L Absolute Monocytes 0.62 Absolute Eosinophils 0.18 Absolute Basophils 0.02 RBC Morphology See Below Polychromasia Present Hypochromasia 1+ PT 16.6 H INR 1.7 H Sodium 135 L Potassium 3.6 Chloride 100 Carbon Dioxide 26.1 Anion Gap 8.9 BUN 50 H Creatinine 4.9 H* Est GFR (CKD-EPI 2020) 11.02 Glucose 173 H Calcium 9.0 Magnesium 2.2 Urine Color Yellow Urine Clarity Clear Urine pH 6.0 Ur Specific [place] 1.020 Urine Protein 100 H Urine Ketones Negative Urine Blood Large H Urine Nitrite Negative Urine Bilirubin Negative Urine Urobilinogen 0.2 Ur Leukocyte Esterase Large H Urine RBC 20-50 H Urine WBC 20-50 H Ur Epithelial Cells Few Urine Crystals Negative Urine Bacteria Few Urine Casts Negative Urine Mucus Trace Ur Culture Indicated? Yes Urine Glucose Negative Time Spent with Patient Time Spent with Patient: >50 minutes Time was spent: preparing to see the patient(eg.review tests), obtaining and/or reviewing separately otained hiistory, ordering medications,tests, procedures, referring, communicating with other health lawn care specialist, indepentently interpreting results, counseling the patient and care coordination
[2024-05-22] MEDS: Triamcinolone 0.1% CR 15 GM TUBE TP ×2 (10:50→23:14)
--- NOTE | 2024-05-22 12:04 | UCONE_ITS ---
Date of service: 05/22/24 Time of Service: 12:40 Assessment and Plan Assessment and plan (1) Acute UTI: Status: Acute Assessment and plan: He is at risk for recurring urinary tract infections because of his indwelling urethral catheter. He has been taught clean intermittent catheterization as recently as September of this past year but was unable to comply, so the urethral catheter was replaced. There is no evidence of hydronephrosis on the renal ultrasound, so there is no indication that he would benefit from a ureteral stent or from a nephrostomy tube. I do not believe his kidney stones are playing any role in his infection. The stones have been present for years and his previous stone analysis does not show any struvite composition. He has had multiple discussions with the [facility] [place] urology providers regarding surgery for his kidney stones and has elected not to proceed with treatment of asymptomatic stones. (2) Kidney stones: Status: Chronic History of Present Illness Narrative: This is an 83-year-old gentleman who has a long history of bilateral kidney stones. He has a history of urinary retention. He is not felt to be a surgical candidate at our facility because of his comorbidities. He has been under the care of the urology team at [facility] His urinary retention is managed with an indwelling Knox catheter. His home health services change the catheter for him monthly. Back in September 2023, he was taught to perform CIC. He was ultimately not successful and his Knox catheter was replaced. He has bilateral kidney stones with a large stone burden. Back in 2016, he declined percutaneous nephrolithotomy. In 2018, when he developed left ureteral stone, he had a left stent placement followed by ureteroscopy. In March 2023, he presented with worsening renal function and left hydronephrosis. He had a 2 cm stone impacted into the left ureter. I was unable to pass a ureteral stent so he required a nephrostomy tube that was placed at [facility]. A few months later he presented with urosepsis. In July 2023, he began a series of staged ureteroscopy's with treatment of his obstructing left ureteral stone along with some of the smaller stones in his left kidney. After the series of ureteroscopy's, a 2 cm upper pole stone and a 1.5 to 2 cm midpole stone remained in place. His stent was removed in September 2023. He was scheduled for a follow-up renal ultrasound 6 to 10 weeks later, but I am unable to find any documentation that the ultrasound was done. His stone composition was 60% calcium oxalate monohydrate, 20% calcium oxalate dihydrate and 20% calcium phosphate. There was no struvite composition. He is now admitted with concerns for a urinary tract infection. He tells me that he has had weakness and at least 1 fall starting about 2 or 3 days ago. He had no flank pain. He was seen in the emergency department and his indwelling urethral catheter was changed. His urine cultures are pending. He was started on broad-spectrum antibiotics. I have been asked to see him to assess the need for any type of surgical treatment. Review of Systems Narrative: No fevers or chills No vision change or dysphasia Diabetes. No thyroid dysfunction COPD. No hemoptysis No chest pain or palpitations No nausea, vomiting, hepatitis, ulcers, jaundice No seizures or strokes On coumadin. Right soulder and bilateral knee pain. [facility] All Active Problems (Updated 05/22/24 @ 10:05 by Yesenia Luis APRN) Right knee pain (Acute) Contraindication to deep vein thrombosis (DVT) prophylaxis (Acute) Elevated troponin (Acute) Acute UTI (Acute) Dyspnea (Acute) Palliative care patient (Acute) Deficit in activities of daily living (ADL) (Acute) Encounter for hospice care discussion (Acute) Edema (Acute) Cloudy urine (Acute) Lesion of pancreas (Acute) Obstructive uropathy (Acute) 06/12/23 Per [facility] – [place]. -hb Need for home health care (Acute) History of fall (Acute) Noninfected skin tear of left lower extremity (Acute) Fall (Acute) Advance care planning (Acute) Skin tear of left lower leg without complication (Acute) Hyperkalemia (Acute) VRE (vancomycin resistant enterococcus) culture positive (Acute) Hydronephrosis, left (Acute) Hyperphosphatemia (Acute) Pressure ulcer of right ischium (Acute) Chronic indwelling Knox catheter (Acute) Acute renal failure (Acute) Acute UTI (Acute) Diabetes mellitus (Chronic) Atrial fibrillation (Chronic) on coumadin Chronic kidney disease (Chronic) 2020- borderline stage 4 Venous insufficiency (chronic) (peripheral) (Acute) Nail dystrophy (Acute) COVID-19 (Acute ~08/05/22) Thumb pain (Acute) Right heart failure (Acute) Urinary retention (Acute) 11/2021, ultrasound shows significant pretty and post void residual- minimal response to voiding Kidney stones (Chronic) Longstanding history of multiple stones 11/2021 ultrasound showed multiple stones in kidney, 1 stone possibly in right ureter Anemia (Chronic) Chronic mild anemia, associated with CKD Obstructive sleep apnea (Chronic) cpap Acute on chronic heart failure with preserved ejection fraction (Acute) Hives (Acute) Obesity (Acute 02/11/13) Obstructive nephropathy (Acute) Moderate pulmonary arterial systolic hypertension (Chronic) Chronic anticoagulation (Chronic) Polyp of colon (Chronic) Rosacea (Chronic) Constipation (Chronic) CHF (congestive heart failure) (Chronic) Medical History 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 Daughter No problems noted. Social History Smoking/Tobacco Use Status: Never Second Hand Exposure: No Smoking risk assessment performed?: Yes Alcohol Intake: current Alcohol Intake frequency: holidays/special occasions only Drug use: Never Substance use type: does not use Caregiver/Support person: Yes Household members: spouse Housing: house Communication Needs: Hard of Hearing Do you need help understanding health information?: Often Pets and animals: No Sexually active: No What is your relationship status?: How often do you talk on the phone with friends or family?: decline to answer How often do you get together with friends or relatives?: decline to answer How often do you attend congregation or baptist services?: decline to answer Do you belong to any clubs or organized social groups?: decline to answer Panel score (0-1 are the most socially isolated patients): 1 What type of physical activity do you participate in: walking Duration: < 15 minutes/day Frequency: daily Special amor needs: No Do you feel safe at home: Yes Do you feel safe in your relationship?: Yes Exam Narrative Exam Narrative: He is an obese gentleman who does not appear septic or toxic His vital signs are documented elsewhere His abdomen is soft with no peritoneal signs A Knox catheter is in place and is draining yellow urine Chronic venous stasis changes lower extremities He is awake and alert Results Last Vital Signs Temp 36.4 C L 05/22/24 11:24 Pulse 55 L 05/22/24 11:24 Resp 19 05/22/24 11:24 BP 100/60 05/22/24 11:24 Pulse Ox 97 05/22/24 11:24 Labs 05/22/24 06:25 05/22/24 06:25 Labs: Laboratory Results - last 24 hr 05/21/24 05/22/24 12:20 06:25 WBC 4.70 RBC 2.77 L Hgb 8.1 L Hct 25.2 L MCV 91 MCH 29.2 MCHC 32.1 RDW 15.3 H Plt Count 141 MPV 9.7 Immature Gran % 0.6 Neutrophils % 61.8 Lymphocytes % 20.2 Monocytes % 13.2 Eosinophils % 3.8 Basophils % 0.4 Nucleated RBC % 0.0 Absolute Neutrophils 2.90 Absolute Lymphocytes 0.95 L Absolute Monocytes 0.62 Absolute Eosinophils 0.18 Absolute Basophils 0.02 RBC Morphology See Below Polychromasia Present Hypochromasia 1+ PT 16.6 H INR 1.7 H Sodium 135 L Potassium 3.6 Chloride 100 Carbon Dioxide 26.1 Anion Gap 8.9 BUN 50 H Creatinine 4.9 H* Est GFR (CKD-EPI 2020) 11.02 Glucose 173 H Calcium 9.0 Magnesium 2.2 Urine Color Yellow Urine Clarity Clear Urine pH 6.0 Ur Specific [place] 1.020 Urine Protein 100 H Urine Ketones Negative Urine Blood Large H Urine Nitrite Negative Urine Bilirubin Negative Urine Urobilinogen 0.2 Ur Leukocyte Esterase Large H Urine RBC 20-50 H Urine WBC 20-50 H Ur Epithelial Cells Few Urine Crystals Negative Urine Bacteria Few Urine Casts Negative Urine Mucus Trace Ur Culture Indicated? Yes Urine Glucose Negative
--- NOTE | 2024-05-22 14:08 | CHAPLAIN ---
Sav was resting in bed when I visited. He shared some personal history, telling about his 35 year career with [employer] in [place], [place]. He vacationed in [place] and eventually retired to [facility]. Sav said his isn't feeling well at home so she won't be in to visit today. Sav seemed fine with this. They have been in touch by phone. I explained my role and offered support. I will continue to visit.
[2024-05-22] MEDS: CEFEPIME 2 GM in Normal Saline 100 ML IVPB (14:12)
[2024-05-22] MEDS: Melatonin 3 MG TAB 9 MG PO (20:15)
[2024-05-22] MEDS: Tamsulosin 0.4 MG CAPCR PO (20:15)
[2024-05-22] MEDS: Gabapentin 100 MG CAP 200 MG PO (20:16)
[2024-05-22] MEDS: Pravastatin 40 MG TAB PO (20:17)
[2024-05-22] MEDS: Warfarin 1 MG TAB PO (20:17)
[2024-05-22] MEDS: Insulin Glargine 300 UNITS/3 ML PEN 30 UNITS SC (20:20)
[2024-05-22] MEDS: Normal Saline 500 ML IV (23:45)
[2024-05-23] VITALS (8 sets, daily range): BP systolic 94–111; BP diastolic 50–64; PULSE 60–68; RESP 16–30; TEMP 36.3–36.6; O2SAT 94–97
--- NOTE | 2024-05-23 | DI.CT_ITS ---
Exam(s) CT LOWER EXTREMITY RT WO EXAM: CT LOWER EXTREMITY RT WO CLINICAL HISTORY: Unable to bear weight, R TKA with known loosening,. TECHNIQUE: Imaging Protocol: Axial computed tomography images with coronal and sagittal reformatted images were created and reviewed. CONTRAST MATERIAL: Intravenous: Omnipaque 350 Contrast volume:structured data in ml Contrast route:I V - Oral: yes / no COMPARISON: CT CT UPPER EXTREMITY LT WO from 11/30/2020 CR,XR XR KNEE RT 3V AP,LAT,NEPTALI from 05/21/2024 FINDINGS: OSSEOUS: There is a total right knee arthroplasty which produces artifact obscuring detail. There is a promin ent knee joint effusion. There is a nondisplaced vertical fracture in the peripheral aspect of the medial femoral condyle, bes t seen on the coronal images. There does not appear to be loosening of the femoral component of the prosthesis. However, there are resorptive changes at the bone cement interface of the medial tibial plateau compo nent of the prosthesis suspicious for loosening. There is also linear lucency of the bone component interspace of the patellar component suspicious fo r loosening also at this level. IMPRESSION: There is a nondisplaced vertical cortical fracture in the peripheral aspect of the medial femoral con dyle, not associated with loosening of the femoral component of the knee prosthesis. There is evidence of loosening of the component of the medial tibial plateau and of the patellar comp onent as well. There is a large ipsilateral knee joint effusion. RADIATION DOSE DELIVERED: 321.86mGy.cm Total DLP DATA REPOSITORY: All CT scans at this facility are submitted to the National Radiology Data Registry (NRDR) Dose Index Registry (DIR) with the [employer] ([employer]). RADIATION OPTIMIZATION: All CT scans at this facility use at least one of these dose optimization te chniques: automated exposure control; mA and/or kV adjustment per patient size (includes targeted exa ms where dose is matched to clinical indication); or iterative reconstruction.
[2024-05-23] MEDS: HYDROmorphone 2 MG/ML SYR 0.5 MG IVP (01:48)
[2024-05-23 06:22] LABS: Abs Immature Grans 0.03 10^3/uL (0.0-0.06); Absolute Basophil Count 0.01 10^3/uL (0.0-0.2); Absolute Eosinophil Count 0.31 10^3/uL (0.0-0.7); Absolute Lymphocyte Count 1.11 10^3/uL (1.2-3.4); Absolute Monocyte Count 0.57 10^3/uL (0.1-0.8); Absolute Neutrophil Count 2.64 10^3/uL (1.2-6.7); Basophils % 0.2 %; Eosinophils % 6.6 %; HCT 22.6 % (40.0-50.0); HGB 7.1 g/dL (13.5-17.5); Immature Grans % 0.6 %; Lymphocytes % 23.8 %; MCH 28.7 pg (27.0-33.0); MCHC 31.4 % (32.0-36.0); MCV 92 fL (80-95); MPV 9.6 fL (8.0-11.0); Monocytes % 12.2 %; Neutrophils % 56.6 %; Platelet Count 126 10^3/uL (130-400); RBC 2.47 10^6/uL (4.36-5.78); RDW 15.3 % (11.8-14.1); RDW-SD 50.8 fL; WBC 4.67 10^3/uL (4.4-10.8)
[2024-05-23 06:33] LABS: INR 1.8 (0.9-1.1); Prothrombin Time 17.1 sec (9.1-11.1)
[2024-05-23 06:34] LABS: BUN 57 mg/dL (7-18); Calcium 8.7 mg/dL (8.5-10.1); Chloride 102 mmol/L (98-107); Glucose 176 mg/dL (74-106); Potassium 3.7 mmol/L (3.5-5.1); Sodium 137 mmol/L (136-145)
[2024-05-23 06:37] LABS: CREATININE 4.8 mg/dL (0.70-1.30)
--- NOTE | 2024-05-23 07:53 | W.PM.PROGNOT ---
Date of Service Date of service: 05/23/24 Time of Service: 10:35 Assessment and Plan Assessment and plan (1) Acute UTI: Status: Acute Assessment and plan: Positive UA in the ED on 05/20 Continue Cefepime at renal dose Renal US completed and negative for hydronephrosis and no interention required at this time for calculi as per urology consult. Urine cultures showed GNR 50 K to 100K on initial specimen; will treat based on this specimen from 05/20; further results pending Urology consult completed and no intervention needed IF SBP < 90 w MAP 55n will consider small bolus of fluid Blood culture negative at 72 hours (2) Right knee pain: Status: Acute Assessment and plan: XR negative for fracture or hardware displacement Continue multimodal pain management with: Scheduled APAP PRN tramadol Ice pack PRN Diclofenac topical Lidocaine patch PT consult in progress Ortho consult initiated, please read notes: confirmed non-displaced vertical cortical fracture and loosening of both femoral, midtibial and patellar component of the prosthesis with large ipsilateral large joint effusion as per CT report -Patient was seen by Dr. Harris who is familiar with the patient's orthopedic history -Joint aspiration of right knee effusion was completed; gram stain showed no bacteria and cultures are pending 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, initial encounter (4) Loose right total knee arthroplasty: Status: Acute Assessment and plan: as above Qualifiers: Encounter type: sequela Qualified Code(s): T84.032S - Mechanical loosening of internal right knee prosthetic joint, sequela (5) Anemia: Status: Chronic Assessment and plan: Most likely d/t right knee effusion combined with CKD V, but erythropoietin level in 03/2023 was 32.0 Type and screen Stool guaic Will transfuse if symptomatic or Hgb< 7.0 Iron studies: Fe 28, TIBC 221, Transferrin % sat 13 -Iron sucrose IV 300 mg today -Calculated iron deficit of > 1300mg B12 : 322 -Cyancobalamin 1000 mg po daily Hgb remains 7.1 in PM (6) Atrial fibrillation: Status: Chronic Assessment and plan: Metoprolol succinate adjusted to 12.5 mg BID with parameters On warfarin INR 1.8 on 7/05 and today INR is again 1.8 with goal between 2 and 3 Will give an additional 2 mg of warfarin; patient was already getting 2.5 mg daily PT/INR in a.m. 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: Status: Acute Assessment and plan: GFR 11.3, Cr 4.8 CT w contrast done today LVEF 55% LR at 50 cc/hr ordered (8) Hypomagnesemia: Status: Acute Assessment and plan: resolved Magnesium level was 1.5 on 05/21/2024 Supplementation completed and mag level at 2.2 today. QTc on EKG tracing remains at 0.44 this morning despite magnesium correction; will discontinue telemetry (9) Elevated troponin: Status: Acute Assessment and plan: At baseline troponins trending down , max 72 w/o symptoms of ACS EKG was negative for ischemia, atrial fibrillation at 50 bpm Echo US resulted and report indicated:(study was poor technically limited due to body habitus) -LVEF of 55%, RVSP of 26.5 mmHg, -Normal overall left ventricular systolic function without ventricular septal defect. -Right ventricular systolic function could not be assessed due to poor visualization of the right ventricle. - IVC of normal size with over 50% collapse with inspiration. -No pericardial effusion noticed. Slow continuous IV hydration initiated today 05/23, night hospitalist had given 500 ml bolus for hypotension Telemetry discontinued (10) Deficit in activities of daily living (ADL): Status: Acute Assessment and plan: PT consult : Difficulty working w PT Managing right knee pain to improve patient's ability to work with physical therapy Brace ordered as per ortho consult (11) Palliative care patient: Status: Acute Assessment and plan: Palliative care consult pending Previous COLST in chart will inquire Expressed wish to be a full code and for short term intubation on admission, on subsequent day the spouse seemed agreeable to the patient's decision (12) Contraindication to deep vein thrombosis (DVT) prophylaxis: Status: Acute Assessment and plan: On warfarin for A-fib (13) Discharge planning issues: Status: Acute Assessment and plan: Plan will depend on the patient's ability to resume his ADL PT consult for discharge CM to f/u on possibly STR Discussed with Dr. Lozano Subjective Subjective Patient reports: no new complaints, feels better (but right knee is still painfull), still having pain, tolerating liquids well, tolerating a regular diet, voiding w/o difficulty (chronic griffin ), flatus, no bowel movement, blood in stool (occult blood ordered) and shortness of breath (Patient denies but RR is increased during conversation and opened mouth breathing noticed); denies nausea, vomiting or fever Exam Narrative Exam Narrative: Constitutional The patient is in bed comfortable except for right knee pain on mobilization, Neuro:alert and oriented X 4, no deficit Resp: clear lung bilaterally with decreased bases Cardio: S1, S2, + faint murmur, positive right pedal pulse, TEDs in place GI: Abdomen is obese remains not distended, soft and non tender, bowel sounds are present :Chronic griffin in place from 05/20 replaced in ED Psych: RASS 0, congruent mood and normal affect. Objective Last Vital Signs Temp 36.5 C 05/23/24 07:41 Pulse 68 05/23/24 07:41 Resp 16 05/23/24 07:41 BP 101/55 L 05/23/24 07:41 Pulse Ox 95 05/23/24 07:41 Laboratory Results - last 24 hr 05/23/24 06:05 WBC 4.67 RBC 2.47 L Hgb 7.1 L Hct 22.6 L MCV 92 MCH 28.7 MCHC 31.4 L RDW 15.3 H Plt Count 126 L MPV 9.6 Immature Gran % 0.6 Neutrophils % 56.6 Lymphocytes % 23.8 Monocytes % 12.2 Eosinophils % 6.6 Basophils % 0.2 Nucleated RBC % 0.0 Absolute Neutrophils 2.64 Absolute Lymphocytes 1.11 L Absolute Monocytes 0.57 Absolute Eosinophils 0.31 Absolute Basophils 0.01 PT 17.1 H INR 1.8 H Sodium 137 Potassium 3.7 Chloride 102 Carbon Dioxide 25.0 Anion Gap 10.0 BUN 57 H Creatinine 4.8 H* Est GFR (CKD-EPI 2020) 11.30 Glucose 176 H Calcium 8.7 Time Spent with Patient Time Spent with Patient: >50 minutes Time was spent: preparing to see the patient(eg.review tests), obtaining and/or reviewing separately otained hiistory, ordering medications,tests, procedures, referring, communicating with other health women's health care nurse practitioner, indepentently interpreting results, counseling the patient and care coordination
[2024-05-23] MEDS: Polyethylene Glycol 3350 17 GM PACKET PO (07:57)
[2024-05-23] MEDS: Insulin Aspart 300 UNITS/3 ML PEN SC ×3 (07:59→16:49)
[2024-05-23] MEDS: Triamcinolone 0.1% CR 15 GM TUBE TP ×2 (08:00→21:54)
[2024-05-23] MEDS: Acetaminophen 500 MG TAB 1000 MG PO ×3 (08:01→21:53)
[2024-05-23] MEDS: Docusate Sodium 100 MG CAP PO ×2 (08:01→21:53)
[2024-05-23] MEDS: Multivitamin TAB 1 TAB PO (08:01)
[2024-05-23] MEDS: Finasteride 5 MG TAB PO (08:01)
[2024-05-23] MEDS: Aspirin E.C. 81 MG TABEC PO (08:02)
[2024-05-23] MEDS: Normal Saline Flush 10 ML SYR IVP ×2 (08:02→21:54)
[2024-05-23] MEDS: Torsemide 20 MG TAB 40 MG PO (08:02)
[2024-05-23] MEDS: Metoprolol CR 25 MG TABCR 12.5 MG PO ×2 (08:02→21:51)
--- NOTE | 2024-05-23 08:17 | W.ORTHOCONSU ---
Date of service: 05/23/24 Time of Service: 10:45 History of Present Illness History of Present Illness Chief Complaint: Right knee pain Narrative: Sav is an 83-year-old male with multiple medical comorbidities to presented to the emergency department for weakness. Prior to admission about 3 days ago he was having 2 to 3 days of increasing weakness which actually led to him falling while the right knee buckled underneath him on the right side. He also had some reportedly cloudy urine. He is seen in the emergency department with notable anemia. He has chronic kidney disease which seem to be relatively stable with a creatinine of 4.8 and a GFR of 11. He had some mildly elevated troponins as well although was asymptomatic in that regard. He complained mostly of pain in the right knee with active motion and with attempted weightbearing. He did have a culture positive urine sample and has been started on antibiotics for this. He has been unable to ambulate since admission due to pain. I have seen Sav previously in 2017 for evaluation of right knee pain. He had previously underwent bilateral knee arthroplasties performed at [facility]. The right knee was grossly loose on x-rays previously with lucencies. He was not a surgical candidate here at [facility]. He was seen at [facility] and due to other urologic complications was never scheduled for surgery. He has continued to have pain about the right knee. He has been unable to stand without significant assistance and even then cannot fully straighten the knee. He has been able to activate his quad with physical therapy although still limited. Blood cultures have been negative. Consults Consult date: 05/23/24 Requesting physician: Song Donovan Consult Reason Right knee pain Assessment and Plan Assessment and plan (1) Loose right total knee arthroplasty: Status: Acute Assessment and plan: Unfortunately, Sav has a known recent tibial component and likely patellar component confirmed today. He has been seen for this previously. However, given his multiple comorbidities he was deemed not a surgical candidate for that complex procedure here at this [facility] and surgery, which was recommended [facility], was postponed due to other medical complications. The treatment for this loose prosthesis would be a revision arthroplasty. This is a complex procedure that does carry with this and significant risk, elevated and him due to his morbid obesity, diabetes, chronic anemia and severe chronic kidney disease. All of these independent medical comorbidities impart increasing risk to the procedure. If he were to have significant complication of this knee it is very possible he may lose the leg above the knee joint or require multiple other procedures and antibiotics rendering his knee less useful. However, it is quite painful for him and would benefit from revision surgery given the complexity of the case and comorbidities this should be done at a tertiary center. If surgery were to be considered for a more stable need to allow better mobilization he would need evaluation and care with his urologist on board as well as optimization in regards to diabetes and chronic anemia. Qualifiers: Encounter type: sequela Qualified Code(s): T84.032S - Mechanical loosening of internal right knee prosthetic joint, sequela (2) Periprosthetic fracture around internal prosthetic right knee joint: Status: Acute Assessment and plan: Sav's worsening right knee pain today was confirmed with CT scan showing a small fracture about the distal?medial aspect of the medial femur. This is more of an avulsion type injury likely from the fall. I do think a hinged knee brace could be beneficial. The smaller 1, while not being as robust in varus/valgus protection, would likely be easier to don and doff. The longer knee immobilizer will be quite challenging with his habitus but could be considered. I did aspirate the knee, removing approximate 40 cc of blood. I also sent this to the lab to ensure there is no sign of infection within it although there is no significant infectious properties. I will continue to follow the cultures. This will likely start improving slowly on its own. Surgical treatment for this would not be recommended but in the setting of the loose component would be the same time revision knee arthroplasty. Qualifiers: Encounter type: initial encounter Qualified Code(s): M97.11XA - Periprosthetic fracture around internal prosthetic right knee joint, initial encounter Review of Systems All systems reviewed & are unremarkable except as noted in HPI and below PFSH All Active Problems (Updated 05/23/24 @ 13:21 by Papa Harris MD) Periprosthetic fracture around internal prosthetic right knee joint (Acute) Loose right total knee arthroplasty (Acute) Hypomagnesemia (Acute) Right knee pain (Acute) Contraindication to deep vein thrombosis (DVT) prophylaxis (Acute) Elevated troponin (Acute) Acute UTI (Acute) Dyspnea (Acute) Palliative care patient (Acute) Deficit in activities of daily living (ADL) (Acute) Encounter for hospice care discussion (Acute) Edema (Acute) Cloudy urine (Acute) Lesion of pancreas (Acute) Obstructive uropathy (Acute) 06/12/23 Per [facility]. -hb Need for home health care (Acute) History of fall (Acute) Noninfected skin tear of left lower extremity (Acute) Fall (Acute) Advance care planning (Acute) Skin tear of left lower leg without complication (Acute) Hyperkalemia (Acute) VRE (vancomycin resistant enterococcus) culture positive (Acute) Hydronephrosis, left (Acute) Hyperphosphatemia (Acute) Pressure ulcer of right ischium (Acute) Chronic indwelling Knox catheter (Acute) Acute renal failure (Acute) Acute UTI (Acute) Diabetes mellitus (Chronic) Atrial fibrillation (Chronic) on coumadin Chronic kidney disease (Chronic) 2020- borderline stage 4 Venous insufficiency (chronic) (peripheral) (Acute) Nail dystrophy (Acute) COVID-19 (Acute ~08/05/22) Thumb pain (Acute) Right heart failure (Acute) Urinary retention (Acute) 11/2021, ultrasound shows significant pretty and post void residual- minimal response to voiding Kidney stones (Chronic) Longstanding history of multiple stones 11/2021 ultrasound showed multiple stones in kidney, 1 stone possibly in right ureter Anemia (Chronic) Chronic mild anemia, associated with CKD Obstructive sleep apnea (Chronic) cpap Acute on chronic heart failure with preserved ejection fraction (Acute) Hives (Acute) Obesity (Acute 02/11/13) Obstructive nephropathy (Acute) Moderate pulmonary arterial systolic hypertension (Chronic) Chronic anticoagulation (Chronic) Polyp of colon (Chronic) Rosacea (Chronic) Constipation (Chronic) CHF (congestive heart failure) (Chronic) Medical History 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 Daughter No problems noted. Social History Smoking/Tobacco Use Status: Never Second Hand Exposure: No Smoking risk assessment performed?: Yes Alcohol Intake: current Alcohol Intake frequency: holidays/special occasions only Drug use: Never Substance use type: does not use Caregiver/Support person: Yes Household members: spouse Housing: house Communication Needs: Hard of Hearing Do you need help understanding health information?: Often Pets and animals: No Sexually active: No What is your relationship status?: How often do you talk on the phone with friends or family?: decline to answer How often do you get together with friends or relatives?: decline to answer How often do you attend nondenominational or christian services?: decline to answer Do you belong to any clubs or organized social groups?: decline to answer Panel score (0-1 are the most socially isolated patients): 1 What type of physical activity do you participate in: walking Duration: < 15 minutes/day Frequency: daily Special amor needs: No Do you feel safe at home: Yes Do you feel safe in your relationship?: Yes Exam Narrative Exam Narrative: Evaluated in the hospital bed with head of bed elevated approximate 45 degrees. Notable external rotation of both legs due to patient habitus. Breathing very heavily although denies having shortness of breath or work of breathing. Evaluation of the right leg shows a large effusion. Incision is well-healed. No erythema. No significant warmth. There is exquisite pain to palpation about the knee, worse over the medial aspect of the tibia, however, he has some global pain to palpation throughout. He really struggles activate his quadriceps. However, when he does the patella moves appropriately and seems to be well attached. Superior medially is difficult to appreciate if there is some arthrotomy diastases or rupture of the quadriceps tendon appears to be intact that does the patellar ligament. However, this is limited in testing due to patient habitus and pain. There is some increased laxity with valgus stress although this causes pain is limited to test. Chronic venous stasis changes about the legs. Results Last Vital Signs Temp 36.5 C 05/23/24 07:41 Pulse 68 05/23/24 07:41 Resp 16 05/23/24 07:41 BP 101/55 L 05/23/24 07:41 Pulse Ox 95 05/23/24 07:41 Labs 05/23/24 06:05 05/23/24 06:05 Labs: Laboratory Results - last 24 hr 05/23/24 06:05 WBC 4.67 RBC 2.47 L Hgb 7.1 L Hct 22.6 L MCV 92 MCH 28.7 MCHC 31.4 L RDW 15.3 H Plt Count 126 L MPV 9.6 Immature Gran % 0.6 Neutrophils % 56.6 Lymphocytes % 23.8 Monocytes % 12.2 Eosinophils % 6.6 Basophils % 0.2 Nucleated RBC % 0.0 Absolute Neutrophils 2.64 Absolute Lymphocytes 1.11 L Absolute Monocytes 0.57 Absolute Eosinophils 0.31 Absolute Basophils 0.01 PT 17.1 H INR 1.8 H Sodium 137 Potassium 3.7 Chloride 102 Carbon Dioxide 25.0 Anion Gap 10.0 BUN 57 H Creatinine 4.8 H* Est GFR (CKD-EPI 2020) 11.30 Glucose 176 H Calcium 8.7 Imaging Imaging Studies: X-ray of the right knee was reviewed. This shows subsidence of the tibial component with further displacement on previous x-rays, lucency seen laterally and medially. Large effusion present CT scan of the right knee shows lucency medially and laterally about the tibial component with obvious subsidence. There also seems to be some erosion around the cement mantle anteriorly and medially. Difficult to appreciate any significant femoral loosening. There also appears to be lucency behind the cement of the patella. Patella is slightly laterally tilted and there is a large effusion present. There is also a small cortical break at the medial flange of the femur adjacent to the MCL insertion at the epicondyle. No significant displacement. This does not involve the weightbearing portion of the femur. Procedures Joint Aspiration/Injection Joint Asp./Inject. 1: Time out performed: Yes Side of body: right Joint aspirated: knee Skin prep: Chlorhexidine Needle size used: 18G Fluid obtained: bloody Total fluid obtained (ml): 40 Additional comments: Fluid sent for cell count and culture
[2024-05-23 08:22] LABS: Lab Add On Test DONE
--- NOTE | 2024-05-23 10:16 | DI.VRAD_ITS ---
PROCEDURE INFORMATION: Exam: CT Right Lower Extremity Without Contrast, Knee Exam date and time: 05/23/2024 9:47 AM Age: 83 years old Clinical indication: Other: Unable to bear weight, R tka with known loosening. Prior surgery; Surgery date: 6+ months; Surgery type: Knee replacement 17 years ago TECHNIQUE: Imaging protocol: CT of the right lower extremity without contrast was performed. Exam focused on the knee. COMPARISON: CR XR KNEE RT 3V AP,LAT,NEPTALI 05/21/2024 10:53 AM FINDINGS: Bones/joints: Right total knee arthroplasty. Metallic artifact obscures detail. Large knee effusion. The bones are demineralized. Resorptive changes at the superior bone cement interface of the medial tibial plateau suspicious for loosening. There is also lucency of the bone component interface of the patellar component suspicious for loosening Nondisplaced vertical cortical fracture of the medial femoral condyle, best seen on the coronal series 6 images 29 through 35. Soft tissues: Subcutaneous edema about the knee. Vasculature: Vascular calcifications. IMPRESSION: 1. Right TKA with loosening of the component of the medial tibial plateau and probable loosening of patellar component is well 2. Nondisplaced vertical cortical fracture of the medial femoral condyle 3. Large knee joint effusion Dictated and Authenticated by: Chely Parks MD. Ordering:LALITA Elam MD
[2024-05-23] MEDS: Lidocaine 5% Patch 2 PATCH TP (10:55)
[2024-05-23] MEDS: Lactated Ringers 1,000 ML 50 ML IV (11:06)
[2024-05-23 11:42] LABS: Clarity Cloudy; Mononuclear Cells 15 %; Nucleated Cells 2349 uL (0); Polynuclear Cells 85 %
--- NOTE | 2024-05-23 11:43 | PT.INTREAT ---
PT Notes Visit Reasons: UTI, Pyelonephritis Weakness Inpatient Physical Therapy Treatment Note [facility] Date: 05/23/2024 PRECAUTIONS: Pain in R knee SUBJECTIVE: Pt states he has not been able to stand up yet. He feels weaker than normal but would like to go home as soon as possible. OBJECTIVE: ? PAIN: R knee pain with any movement Therapeutic Activities ([id number]): Direct one-on-one instruction in dynamic activities to improve functional performance. ? BED MOBILITY/TRANSFERS? Rolling L/R: max Ax2 Supine-sit: max Ax2? Sit-supine: max Ax2? Sit-stand: max Ax2? Stand-sit: max Ax2? *Pt able to stand w/maxAx2 x10 sec so that the bed could be slid down for a more optimal position to return to supine in bed. -Provided skilled cues and instruction on performance and technique throughout. ASSESSMENT:? Pt is a max assist of 2 for all forms of bed mobility and going from a sit to a stand position. He was able to stand today which is a progression from previously. He is unable to perform any form of ambulatory activities or transfers at this time. He is expressing some fear in movement due to his RLE pain and instability. He may benefit from a R knee brace to be able to progress functionally. He will need rehab to get stronger to be able to return home at some point. PLAN: Continue progressing with bed mobility and standing tolerance, work towards transferring, trial knee brace TREATMENT CODE/TIME: Ther Act [id number] - 45 min
[2024-05-23 13:43] LABS: HCT 22.8 % (40.0-50.0); HGB 7.1 g/dL (13.5-17.5)
[2024-05-23] MEDS: CEFEPIME 2 GM in Normal Saline 100 ML IVPB (14:19)
[2024-05-23 14:25] LABS: Iron 28 ug/dL (65-175); Total Iron Binding Capacity 221 ug/dL (250-450); Transferrin Sat 13 % (20-55); Vitamin B12 322 pg/mL (193-986)
[2024-05-23] MEDS: Diclofenac 1% Gel 100 GM TUBE TP ×2 (16:51→21:53)
[2024-05-23] MEDS: traMADol 50 MG TAB 25 MG PO (21:52)
[2024-05-23] MEDS: Melatonin 3 MG TAB 9 MG PO (21:52)
[2024-05-23] MEDS: Gabapentin 100 MG CAP 200 MG PO (21:52)
[2024-05-23] MEDS: Tamsulosin 0.4 MG CAPCR PO (21:53)
[2024-05-23] MEDS: Pravastatin 40 MG TAB PO (21:53)
[2024-05-23] MEDS: IRON SUCROSE COMPLEX 300 MG in Normal Saline 250 ML 167 MG IVPB (21:55)
[2024-05-23] MEDS: Insulin Glargine 300 UNITS/3 ML PEN 30 UNITS SC (22:22)
[2024-05-23] MEDS: Warfarin 1 MG TAB 2 MG PO (22:23)
[2024-05-24 03:50] VITALS: BP 93/62; PULSE 60; RESP 24; TEMP 36.5; O2SAT 95
[2024-05-24 06:21] LABS: Abs Immature Grans 0.06 10^3/uL (0.0-0.06); Absolute Basophil Count 0.02 10^3/uL (0.0-0.2); Absolute Eosinophil Count 0.35 10^3/uL (0.0-0.7); Absolute Lymphocyte Count 1.11 10^3/uL (1.2-3.4); Absolute Monocyte Count 0.52 10^3/uL (0.1-0.8); Absolute Neutrophil Count 2.88 10^3/uL (1.2-6.7); Basophils % 0.4 %; Eosinophils % 7.1 %; HGB 7.1 g/dL (13.5-17.5); Immature Grans % 1.2 %; Lymphocytes % 22.5 %; MCH 28.3 pg (27.0-33.0); MCHC 30.9 % (32.0-36.0); MCV 92 fL (80-95); MPV 9.3 fL (8.0-11.0); Monocytes % 10.5 %; Neutrophils % 58.3 %; Platelet Count 126 10^3/uL (130-400); RBC 2.51 10^6/uL (4.36-5.78); RDW 15.1 % (11.8-14.1); RDW-SD 50.6 fL; WBC 4.94 10^3/uL (4.4-10.8)
[2024-05-24 06:33] LABS: INR 2.1 (0.9-1.1)
[2024-05-24 06:34] LABS: Anion Gap 11.2 mmol/L (3-11); BUN 59 mg/dL (7-18); CO2 23.8 mmol/L (21.0-32.0); Calcium 9.1 mg/dL (8.5-10.1); Chloride 101 mmol/L (98-107); Glucose 188 mg/dL (74-106); Potassium 3.6 mmol/L (3.5-5.1); Sodium 136 mmol/L (136-145)
[2024-05-24 06:41] LABS: CREATININE 4.8 mg/dL (0.70-1.30)
[2024-05-24 08:11] VITALS: BP 114/59; PULSE 71; RESP 20; TEMP 36.7; O2SAT 96
[2024-05-24] MEDS: Normal Saline Flush 10 ML SYR IVP ×3 (08:18→20:55)
[2024-05-24] MEDS: Acetaminophen 500 MG TAB 1000 MG PO ×3 (08:18→20:49)
[2024-05-24] MEDS: Finasteride 5 MG TAB PO (08:19)
[2024-05-24] MEDS: Cyanocobalamin 500 MCG TAB 1000 MCG PO (08:19)
[2024-05-24] MEDS: Multivitamin TAB 1 TAB PO (08:20)
[2024-05-24] MEDS: Aspirin E.C. 81 MG TABEC PO (08:20)
[2024-05-24] MEDS: Metoprolol CR 25 MG TABCR 12.5 MG PO ×2 (08:21→20:51)
[2024-05-24] MEDS: Insulin Aspart 300 UNITS/3 ML PEN SC ×3 (08:21→18:41)
[2024-05-24] MEDS: Triamcinolone 0.1% CR 15 GM TUBE TP ×2 (08:29→21:26)
[2024-05-24] MEDS: Torsemide 20 MG TAB 40 MG PO (08:29)
[2024-05-24 08:52] LABS: Lab Add On Test DONE
--- NOTE | 2024-05-24 09:15 | PGE_ITS ---
Date of Service Date of service: 05/24/24 Time of Service: 09:15 Assessment and Plan Assessment and plan (1) Acute UTI: Status: Acute Assessment and plan: Positive UA in the ED on 05/20 Today on 706 culture results staying in serratia M and Enterobacter cloacae complex Changing cefepime to ceftriaxone 1 gm IV q24 Renal US completed and negative for hydronephrosis and no intervention required at this time for calculi as per urology consult. IF SBP < 90 w MAP 55n will consider small bolus of fluid Blood culture negative at 96 hours (2) Right knee pain: Status: Acute Assessment and plan: XR negative for fracture or hardware displacement but CT showed non-displaced vertical cortical fracture and loosening of both femoral, midtibial and patellar component of the prosthesis with large ipsilateral large joint effusion which was drained on 05/23 Continue multimodal pain management with: Scheduled APAP PRN tramadol Ice pack PRN Diclofenac topical Lidocaine patch PT consult in progress Ortho consult initiated, please read notes: -Patient was seen by Dr. Harris who is familiar with the patient's orthopedic history -The patient is not a candidate for surgery at d/t multiple comorbidities and anesthesia risk an [facility] -Joint aspiration of right knee effusion was completed on 05/23; gram stain showed no bacteria and cultures no growth art 24 hours -Discussed consultation ( ortho was not available as per Deric at switchboard today) VS transfer (discussed directly with transfer center) for [facility] [place] , but no capacity today and likely not tomorrow either, recommendation to treat UTI and OPT ref to orhtopedics at [facility], if no bed tomorrow and on subsequent days. Patient is refusing surgery after discussion. No further calls to be made to [facility] [place]o Brace recommendation from discussion with Dr. Harris: -Hinged knee brace smaller one VS longer one with consideration body habitus.Ordered on 05/23, pending Patient reported to stay in bed at home as per spouse. Also mention CARMEN RN completing wound care to sacrum. But Desi Ferguson CM could not find records indicating this fact. Wound consult ordered for Sacral wound sacral and risk of developing LEs wound as per Apoorva Crowder RN during her assessment of the skin on his lower legs TEDs in place and the patient feels that the edema and the pain to the LEs has decreased. 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, initial encounter (4) Loose right total knee arthroplasty: Status: Acute Assessment and plan: as above Qualifiers: Encounter type: sequela Qualified Code(s): T84.032S - Mechanical loosening of internal right knee prosthetic joint, sequela (5) Anemia: Status: Chronic Assessment and plan: Most likely d/t right knee effusion combined with CKD V, but erythropoietin level in 03/2023 was 32.0 Type and screen on 05/22 Stool guaic Will transfuse if symptomatic or Hgb< 7.0, HGB 7.1 today Iron studies: Fe 28, TIBC 221, Transferrin % sat 13 -Iron sucrose IV 300 mg in AM , one dose given today -Calculated iron deficit of > 1300mg ( with ideal weight) B12 : 322 -Cyancobalamin 1000 mg po daily -Acute phase reactant level should be higher in the setting of acute illness/infection (6) Atrial fibrillation: Status: Chronic Assessment and plan: Metoprolol succinate adjusted to 12.5 mg BID with parameters On warfarin INR 1.8 on 05/22 and today INR is therapeutic at 2.1 Will give warfarin 2.5 mg today and monitor as patient has been supra- therapeutic in the past PT/INR in a.m. 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: Status: Acute Assessment and plan: GFR 11.3, Cr 4.8 again today - baseline CT w contrast completed on 05/23 LVEF 55% w/o systolic dysfunction LR at 50 cc/hr completed (8) Hypomagnesemia: Status: Acute Assessment and plan: resolved Magnesium level was 1.5 on 05/21/2024 Supplementation completed and mag level at 2.2 today. QTc on EKG tracing remains at 0.44 this morning despite magnesium correction; will discontinue telemetry (9) Elevated troponin: Status: Acute Assessment and plan: Resolved At baseline troponins trending down , max 72 w/o symptoms of ACS EKG was negative for ischemia, atrial fibrillation at 50 bpm Echo US resulted and report indicated:(study was poor technically limited due to body habitus) -LVEF of 55%, RVSP of 26.5 mmHg, -Normal overall left ventricular systolic function without ventricular septal defect. -Right ventricular systolic function could not be assessed due to poor visualization of the right ventricle. - IVC of normal size with over 50% collapse with inspiration. -No pericardial effusion noticed. Slow continuous IV hydration completed Telemetry discontinued (10) Deficit in activities of daily living (ADL): Status: Acute Assessment and plan: PT consult : Difficulty working w PT but improving as knee pain is better , brace is pending Managing right knee pain to improve patient's ability to work with physical therapy Brace ordered as per ortho consult (11) Palliative care patient: Status: Acute Assessment and plan: Palliative care consult pending Previous COLST in chart will inquire Expressed wish to be a full code and for short term intubation on admission, on subsequent day the spouse seemed agreeable to the patient's decision STR to consider if mobility is not improving No surgery as per patient (12) Contraindication to deep vein thrombosis (DVT) prophylaxis: Status: Acute Assessment and plan: On warfarin for A-fib (13) Diabetes mellitus: Status: Chronic Assessment and plan: NIBG AC and HS, SSI coverage,and home dose insulin bolus w lantus ; A1C 7.3 (14) Discharge planning issues: Status: Acute Assessment and plan: Plan will depend on the patient's ability to resume his ADL PT consult for discharge CM to f/u on possibly STR No f[place] with [facility] [place] as per patient Discussed with Dr. Lozano Subjective Subjective Patient reports: feels better, tolerating liquids well, tolerating a regular diet, voiding w/o difficulty, flatus and no bowel movement; denies diarrhea, nausea, vomiting, shortness of breath or fever Exam Narrative Exam Narrative: Constitutional Right knee with increased range of motion and less pain on flexion and extension; less swelling noted Neuro:alert and oriented X 3, no deficit Resp: clear lung bilaterally Cardio: S1, S2, distant, TEDs in place less LE's edema GI: Abdomen is obese remains not distended, soft and non tender, bowel sounds are present :Chronic griffin in place from 05/20 replaced in ED Skin: no opened wound to exposed skin Psych: RASS 0, congruent mood and normal affect. Objective Last Vital Signs Temp 36.7 C 05/24/24 08:11 Pulse 71 05/24/24 08:11 Resp 20 05/24/24 08:11 BP 114/59 L 05/24/24 08:11 Pulse Ox 96 05/24/24 08:11 Laboratory Results - last 24 hr 05/23/24 05/23/24 05/23/24 06:05 08:40 10:50 WBC RBC Hgb Hct MCV MCH MCHC RDW Plt Count MPV Immature Gran % Neutrophils % Lymphocytes % Monocytes % Eosinophils % Basophils % Nucleated RBC % Absolute Neutrophils Absolute Lymphocytes Absolute Monocytes Absolute Eosinophils Absolute Basophils PT INR Sodium Potassium Chloride Carbon Dioxide Anion Gap BUN Creatinine Est GFR (CKD-EPI 2020) Glucose Hemoglobin A1c Cancelled Calcium Iron TIBC Transferrin % Sat Vitamin B12 Fluid Source R Knee Fluid Color Red Fluid Clarity Cloudy Fluid WBC 2349 Fld Polynuclear WBCs % 85 Fluid Mononuclear Cell 15 Add-On Test Request ABO/Rh O Negative Antibody Screen NEGATIVE 05/23/24 05/24/24 13:36 06:05 WBC 4.94 RBC 2.51 L Hgb 7.1 L 7.1 L Hct 22.8 L 23.0 L MCV 92 MCH 28.3 MCHC 30.9 L RDW 15.1 H Plt Count 126 L MPV 9.3 Immature Gran % 1.2 Neutrophils % 58.3 Lymphocytes % 22.5 Monocytes % 10.5 Eosinophils % 7.1 Basophils % 0.4 Nucleated RBC % 0.0 Absolute Neutrophils 2.88 Absolute Lymphocytes 1.11 L Absolute Monocytes 0.52 Absolute Eosinophils 0.35 Absolute Basophils 0.02 PT 20.0 H INR 2.1 H Sodium 136 Potassium 3.6 Chloride 101 Carbon Dioxide 23.8 Anion Gap 11.2 H BUN 59 H Creatinine 4.8 H* Est GFR (CKD-EPI 2020) 11.30 Glucose 188 H Hemoglobin A1c Calcium 9.1 Iron 28 L TIBC 221 L Transferrin % Sat 13 L Vitamin B12 322 Fluid Source Fluid Color Fluid Clarity Fluid WBC Fld Polynuclear WBCs % Fluid Mononuclear Cell Add-On Test Request DONE ABO/Rh Antibody Screen Time Spent with Patient Time Spent with Patient: >50 minutes Time was spent: preparing to see the patient(eg.review tests), obtaining and/or reviewing separately otained hiistory, ordering medications,tests, procedures, referring, communicating with other health congregational care pastor, indepentently interpreting results, counseling the patient and care coordination
[2024-05-24 09:16] LABS: Hemoglobin A1C 7.3 % (<5.7)
[2024-05-24] MEDS: Lidocaine 5% Patch 2 PATCH TP (10:11)
[2024-05-24] MEDS: Docusate Sodium 100 MG CAP PO ×2 (10:12→20:54)
[2024-05-24] MEDS: Diclofenac 1% Gel 100 GM TUBE TP ×3 (10:13→21:26)
[2024-05-24 11:00] LABS: Estimated Average Glucose 148 mg/dL; Hemoglobin A1C 6.8 % (<5.7)
--- NOTE | 2024-05-24 12:22 | PT.INTREAT ---
PT Notes Visit Reasons: UTI, Pyelonephritis Weakness Inpatient Physical Therapy Treatment Note [facility] Date: 05/24/24 PRECAUTIONS: Pain in right knee SUBJECTIVE: Pt states that his pain is better today as some fluid was removed from his knee yesterday. He is eager to work with PT today. OBJECTIVE: ? PAIN: More controlled today Therapeutic Activities ([id number]): Direct one-on-one instruction in dynamic activities to improve functional performance. ? BED MOBILITY/TRANSFERS? Rolling L/R: Max Assist x2 Supine-sit: Max Assist x2 ? Sit-supine: Max Assist x2? Sit-stand: Max Assist ? Stand-sit: Max Assist ? -Provided skilled cues and instruction on performance and technique throughout. ? ASSESSMENT:? Pt was able to show some progress today as he was able to stand up with max assist of only 1 person. He continues to require max assist of 2 for all forms of bed mobility as he has very little abdominal strength. He did show improved tolerance to right knee movement and weight bearing today which helped with his functional progression. He would benefit greatly from being placed in a rehab for the short term to help him return home safely. This was discussed with him today and he understands. PLAN: Continue to progress with functional strength and transfers TREATMENT CODE/TIME: Ther Act [id number] - 30 min
[2024-05-24 12:36] VITALS: BP 105/58; PULSE 63; RESP 24; TEMP 36.8; O2SAT 96
--- NOTE | 2024-05-24 14:16 | PHA.REVIEW2 ---
Pharmacy Admission Review Admission Clinical Review Admission Pharmacy Review: Discharge planning issues (Acute) CKD (chronic kidney disease) stage 5, GFR 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 (Acute) Periprosthetic fracture around internal prosthetic right knee joint (Acute) Loose right total knee arthroplasty (Acute) Hypomagnesemia (Acute) Right knee pain (Acute) Contraindication to deep vein thrombosis (DVT) prophylaxis (Acute) Elevated troponin (Acute) Acute UTI (Acute) Palliative care patient (Acute) Deficit in activities of daily living (ADL) (Acute) No Known Allergies Allergy (Verified 12/23/23 17:57) Resuscitation Status Full Code Height 6 ft 2 in Weight 152 kg Pharmacy Admission Review Renal Dosing Renal Dosing: BUN 59 mg/dL (7-18) H 05/24/24 06:05 Creatinine 4.8 mg/dL (0.70-1.30) H* 05/24/24 06:05 Medications needing adjustments: Reviewed (crcl = 17.8 (Scr = 4.8, appears to be baseline)) List of meds needing interventions: cefepime adjusted to 2g q24h for complicated UTI, other meds ok at current doses (gabapentin 200 mg/day, tramadol 25 mg q12h prn) Anticoagulation Anticoagulation: Hgb 7.1 g/dL (13.5-17.5) L 05/24/24 06:05 Hct 23.0 % (40.0-50.0) L 05/24/24 06:05 Plt Count 126 10^3/uL (130-400) L 05/24/24 06:05 INR 2.1 (0.9-1.1) H 05/24/24 06:05 Creatinine 4.8 mg/dL (0.70-1.30) H* 05/24/24 06:05 DVT Prophylaxis: Reviewed Medications: Warfarin Therapeutic Anticoagulation: Reviewed Medications: Warfarin (INR = 2.1 today (goal: 2-3), 2.5 mg daily ordered (had 4.5 mg yesterday for INR = 1.8) home regimen on admission: 2.5 mg mon, wed, sat & 1.25 mg , , sat, no dose on Saturday (protocol as of 05/12/24 [INR = 1.8], next outpt INR scheduled for 05/26) ) Opiate Usage Evaluate Pain Scale/Pains Meds: Reviewed (minimal usage of tramadol (3 doses 05/22 & 05/23)) Scheduled Bowel Reg ordered if on Opiates?: Yes (carolynn miralax, [id number]) Relevant Labs Relevant Labs: Sodium 136 mmol/L (136-145) 05/24/24 06:05 Potassium 3.6 mmol/L (3.5-5.1) 05/24/24 06:05 Chloride 101 mmol/L (98-107) 05/24/24 06:05 Magnesium 2.2 mg/dL (1.8-2.4) 05/22/24 06:25 Electrolytes, C-Reactive P, ESR: Reviewed DM Control DM Control: Reviewed (a1c = 7.3% 05/24/24) Insulin Dosing, Diabetic Medication: insulin glargine 30 units QHS (home dose) + aspart sliding scale Cardiac Review Cardiac Review: Troponin I 65 ng/L (< or =60) H* 05/21/24 06:20 BP, HR, EF%: Reviewed (some hypotension, metoprolol succ adjusted to 12.5 mg BID (from 25 mg BID)) QTc Review QTc: Not Reviewed (EKG done 05/20/24 but is not available for review in chart) IV to PO Switch IV Medications: Reviewed (switch IV abx when appropriate) Home Meds Home Med List reviewed: Reviewed
[2024-05-24] MEDS: CEFEPIME 2 GM in Normal Saline 100 ML IVPB (15:48)
[2024-05-24] MEDS: Normal Saline 500 ML IV (15:49)
[2024-05-24] MEDS: Bisacodyl 10 MG SUPP PR (16:13)
[2024-05-24 17:00] VITALS: BP 103/50; PULSE 74; RESP 28; TEMP 36.9; O2SAT 96
[2024-05-24] MEDS: Polyethylene Glycol 3350 17 GM PACKET PO (18:42)
[2024-05-24] MEDS: Tamsulosin 0.4 MG CAPCR PO (20:50)
[2024-05-24] MEDS: Gabapentin 100 MG CAP 200 MG PO (20:50)
[2024-05-24] MEDS: Melatonin 3 MG TAB 9 MG PO (20:51)
[2024-05-24] MEDS: Pravastatin 40 MG TAB PO (20:54)
[2024-05-24] MEDS: cefTRIAXone 1 GM/50 ML BAG IVPB (20:56)
[2024-05-24] MEDS: Insulin Glargine 300 UNITS/3 ML PEN 30 UNITS SC (21:25)
[2024-05-24 23:58] VITALS: BP 112/70; PULSE 62; RESP 20; TEMP 36.3; O2SAT 99
[2024-05-25 03:08] VITALS: BP 114/68; PULSE 62; RESP 20; TEMP 36.2; O2SAT 95
[2024-05-25 06:53] LABS: INR 2.8 (0.9-1.1); Prothrombin Time 25.6 sec (9.1-11.1)
[2024-05-25 07:43] VITALS: BP 99/58; PULSE 68; RESP 20; TEMP 36.1; O2SAT 100
[2024-05-25] MEDS: Polyethylene Glycol 3350 17 GM PACKET PO (08:08)
[2024-05-25] MEDS: Aspirin E.C. 81 MG TABEC PO (08:10)
[2024-05-25] MEDS: Docusate Sodium 100 MG CAP PO ×2 (08:10→21:36)
[2024-05-25] MEDS: Finasteride 5 MG TAB PO (08:11)
[2024-05-25] MEDS: Multivitamin TAB 1 TAB PO (08:11)
[2024-05-25] MEDS: Torsemide 20 MG TAB 40 MG PO (08:11)
[2024-05-25] MEDS: Cyanocobalamin 500 MCG TAB 1000 MCG PO (08:11)
[2024-05-25] MEDS: Acetaminophen 500 MG TAB 1000 MG PO ×3 (08:11→21:33)
[2024-05-25] MEDS: Normal Saline Flush 10 ML SYR IVP ×2 (09:19→21:37)
[2024-05-25] MEDS: Diclofenac 1% Gel 100 GM TUBE TP ×2 (09:20→21:32)
[2024-05-25] MEDS: Triamcinolone 0.1% CR 15 GM TUBE TP ×2 (09:20→21:33)
[2024-05-25] MEDS: Lidocaine 5% Patch 2 PATCH TP (09:58)
[2024-05-25] MEDS: IRON SUCROSE COMPLEX 300 MG in Normal Saline 250 ML 167 MG IVPB (10:22)
--- NOTE | 2024-05-25 10:31 | CMPROGNOTE_ITS ---
Date of service: 05/25/24 Time of Service: 10:31 Care Management Progress Note Progress Note Text Progress Note Text: Sav was sitting up in bed when CM met with him. He was admitted with a UTI and has responded well to treatment. His current issue is the inability to walk. He fell at home prior to admission and injured his right knee which had been causing him problems for a while. Sav is not considered a good surgical candidate and would need to go to [facility] if he were to have surgery on the knee. He is opting instead for medical management with the addition of a knee brace. Sav has agreed to go to a SNF for short term rehab prior to returning home with the hope that he will get stronger and return to baseline. Referrals will be sent to [facility] and [facility], at his request. Sav's Lashawn came to visit while CM was with Sav and is agreement with the plan and choices of facilities. Discharge Potential Discharge Needs: PCP F/U Appt Anticipated Barriers to Discharge: Medical Status Patient/Family Education Needs: Review discharge instructions, discuss Ask Me Three Transportation: Private vehicle Plan: Sav was admitted with a Uti and weakness. PT has recommended SNF for short term rehab. Initially Sav was not willing to consider that option. He has changed his mind however in the face of the inability to ambulate. referrals will be sent to [facility] and [facility] at his request.Sav will follow up with facility providers and plan of care. Transportation will be determined by disposition. CM will follow and continue to assess for discharge needs. SDOH(Care Management) Screening Will the Patient Participate in the Screening?: Yes Do you worry about having a steady place to live?: yes Problems where you live: no known problems In the past 12 months, have you had to go without electric, gas, oil or water in your home?: no Have you or anyone in your house had to go without enough food to eat?: no Has lack of transportation kept you from medical appointments or from doing things needed for daily living?: no Has anyone in your support network made you feel unsafe for any reason?: no Health Related Social Needs Health related social needs: housing instability, housed, with risk of homelessness(Z59.811)
[2024-05-25 11:16] VITALS: BP 103/56; PULSE 60; RESP 20; TEMP 36.2; O2SAT 99
--- NOTE | 2024-05-25 11:35 | PT.INTREAT ---
PT Notes Visit Reasons: UTI, Pyelonephritis Weakness Inpatient Physical Therapy Treatment Note [facility] Date: 05/25/2024 PRECAUTIONS: Hinged knee brace on the R when OOB. Activity as tolerated. SUBJECTIVE: Looking forward to seeing how use of the brace will help with knee stabilization. Continues to complain of pain in B knees with R more affected. OBJECTIVE: ? PAIN: Minimal pain at rest but increase to moderate pain with weight bearing ? BED MOBILITY/TRANSFERS? Rolling L/R: Max Assist x2 Supine-sit: Max Assist x2 ? Sit-supine: Max Assist x2? Sit-stand: Max Assist x 2 using FWW/STEDY lift? Stand-sit: Max Assist x 2?using FWW/STEDY lift? GAIT: Deferred as patient's standing balance and tolerance is poor due pain in B knees, R more than L compounded by body weight. ASSESSMENT:? Use of R knee hinged brace helped minimally with today's session. Standing tolerance minimally improved due to joint aspiration done on 05/23/2024. Patient will require slow and gradual progression in mobility, strength and balance in a subacute rehab facility prior to discharge to home as is uanble to proved the amount of assistance the patient currently needs. PLAN: Progress overall functional level as tolerated while managing pain in R knee using multi-modal approach. Coordinate with nurse for pain pre-medication. DISCHARGE RECOMMENDATIONS: [] [] Home with no services [] [] Home with services [specify] [] Home with outpatient PT [] [X] SNF for continued rehabilitation. Patient will benefit from [facility] for continued skilled physical therapy services in order to progress mobility level, strength, and balance in preparation for a safe discharge to home. [] Skilled Nursing Care [] [] SNF versus LTC based on ability to participate and progress [] TREATMENT CODE/TIME: 30902 x 25 minutes for 2 units (11:25-12:00)
[2024-05-25] MEDS: Insulin Aspart 300 UNITS/3 ML PEN SC (12:11)
--- NOTE | 2024-05-25 15:18 | PT.INTREAT ---
PT Notes Visit Reasons: UTI, Pyelonephritis Weakness Inpatient Physical Therapy Treatment Note [facility] Date: 05/25/24 SUBJECTIVE: Sav states that he is willing to do whatever he needs to do to go home. He likes the brace. Very little to no pain when he is not moving his knee. OBJECTIVE: []? VITALS: monitored by nursing. Therapeutic Activities ([id number]): Direct one-on-one instruction in dynamic activities to improve functional performance. ? BED MOBILITY/TRANSFERS? Supine-sit: max A x2? Sit-supine: max A x2? Provided skilled cues and instruction on performance and technique throughout. ? Therapeutic Exercises (91515n2): Direct one-on-one instruction in therapeutic exercises to develop strength, endurance, range of motion and flexibility. ? Exercises ?seated LAQ x10, march x10. Supine hip AB/add x10. Left heel slide, SLR and bridge x10 Provided skilled instruction in proper exercise performance ASSESSMENT:? tolerated ex well. Still requires max assist to transfer any change of position. Reminders to engage glutes when moving legs. PLAN: continue functional mobility to tolerance TREATMENT CODE/TIME: 25 min
--- NOTE | 2024-05-25 15:59 | PGE_ITS ---
Date of Service Date of service: 05/25/24 Time of Service: 15:59 Assessment and Plan Assessment and plan (1) Acute UTI: Status: Acute Assessment and plan: culture growing serratia M and Enterobacter cloacae complex both sensitive to ceftriaxone day 6 Renal US completed and negative for hydronephrosis and no intervention required at this time for calculi as per urology consult. Blood culture negative at 96 hours (2) Right knee pain: Status: Acute Assessment and plan: XR negative for fracture or hardware displacement but CT showed non-displaced vertical cortical fracture and loosening of both femoral, midtibial and patellar component of the prosthesis with large ipsilateral large joint effusion which was drained on 05/23 Continue multimodal pain management with: Scheduled APAP PRN tramadol Ice pack PRN Diclofenac topical Lidocaine patch PT consult in progress Ortho consult initiated, please read notes: -Patient was seen by Dr. Harris who is familiar with the patient's orthopedic history -The patient is not a candidate for surgery at d/t multiple comorbidities and anesthesia risk an [facility] -Joint aspiration of right knee effusion was completed on 05/23; gram stain showed no bacteria and cultures no growth art 24 hours -Discussed consultation with [facility] and Patient is refusing surgery after discussion. Brace recommendation from discussion with Dr. Harris: -Hinged knee brace smaller one VS longer one with consideration body h abitus.Ordered on 05/23, pending Patient reported to stay in bed at home as per spouse. Also mention RN completing wound care to sacrum. But Desi Ferguson CM could not find records indicating this fact. Wound consult ordered for Sacral wound sacral and risk of developing LEs wound as per Apoorva Crowder RN during her assessment of the skin on his lower legs TEDs in place and the patient feels that the edema and the pain to the LEs has decreased. 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, initial encounter (4) Loose right total knee arthroplasty: Status: Acute Assessment and plan: as above Qualifiers: Encounter type: sequela Qualified Code(s): T84.032S - Mechanical loosening of internal right knee prosthetic joint, sequela (5) Anemia: Status: Chronic Assessment and plan: Most likely d/t right knee effusion combined with CKD V, but erythropoietin level in 03/2023 was 32.0 Type and screen on 05/22 Stool guaic Will transfuse if symptomatic or Hgb< 7.0, HGB 7.1 today Iron studies: Fe 28, TIBC 221, Transferrin % sat 13 -Iron sucrose IV 300 mg in AM , one dose given today -Calculated iron deficit of > 1300mg ( with ideal weight) B12 : 322 -Cyancobalamin 1000 mg po daily -Acute phase reactant level should be higher in the setting of acute illness/infection (6) Atrial fibrillation: Status: Chronic Assessment and plan: Metoprolol succinate adjusted to 12.5 mg BID with parameters On warfarin INR is therapeutic at 2.8 continue warfarin 2.5 mg and monitor as patient has been supra-therapeutic in the past PT/INR in a.m. 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: Status: Acute Assessment and plan: GFR 11.3, Cr 4.8 again today - baseline CT w contrast completed on 05/23 LVEF 55% w/o systolic dysfunction LR at 50 cc/hr completed (8) Hypomagnesemia: Status: Acute Assessment and plan: resolved Magnesium level was 1.5 on 05/21/2024 Supplementation completed and mag level at 2.2 today. QTc on EKG tracing remains at 0.44 this morning despite magnesium correction; will discontinue telemetry (9) Elevated troponin: Status: Acute Assessment and plan: Resolved At baseline troponins trending down , max 72 w/o symptoms of ACS EKG was negative for ischemia, atrial fibrillation at 50 bpm Echo US resulted and report indicated:(study was poor technically limited due to body habitus) -LVEF of 55%, RVSP of 26.5 mmHg, -Normal overall left ventricular systolic function without ventricular septal defect. -Right ventricular systolic function could not be assessed due to poor visualization of the right ventricle. - IVC of normal size with over 50% collapse with inspiration. -No pericardial effusion noticed. Slow continuous IV hydration completed Telemetry discontinued (10) Deficit in activities of daily living (ADL): Status: Acute Assessment and plan: PT consult : Difficulty working w PT but improving as knee pain is better , brace is pending Managing right knee pain to improve patient's ability to work with physical therapy Brace ordered as per ortho consult (11) Palliative care patient: Status: Acute Assessment and plan: Palliative care consult pending Previous COLST in chart will inquire Expressed wish to be a full code and for short term intubation on admission, on subsequent day the spouse seemed agreeable to the patient's decision STR to consider if mobility is not improving No surgery as per patient (12) Contraindication to deep vein thrombosis (DVT) prophylaxis: Status: Acute Assessment and plan: On warfarin for A-fib (13) Diabetes mellitus: Status: Chronic Assessment and plan: NIBG AC and HS, SSI coverage,and home dose insulin bolus w lantus ; A1C 7.3 (14) Discharge planning issues: Status: Acute Assessment and plan: referrals placed for rehab. No f/u with [facility] for surgery as per patient Discussed with Dr. Traore Subjective Subjective Patient reports: still having pain (right knee), tolerating liquids well, tolerating a regular diet and afebrile; denies shortness of breath Interval history since last seen: unable to bear weight. Exam Const General: cooperative and no acute distress Nutritional Appearance: obese Orientation: alert, awake and oriented x3 HENMT Head: normal to inspection, normocephalic and atraumatic Mouth: oral mucosae normal Eyes General: appearance normal, both eyes and all related structures Neck Neck: normal visual inspection and full ROM Chest Chest: normal inspection of the chest Resp Effort & Inspection: normal respiratory effort Cardio Rate: regular rate Rhythm: regular rhythm GI Inspection: obesity Palpation: soft Penis: other (griffin catheter in place, draining med yellow urine) Neuro General: patient alert, patient awake and patient oriented x3 Cognition: normal cognition Speech: speech normal Motor: muscle tone normal throughout Extrem Right lower extremity: knee Details: tenderness and swelling; ROM abnormal Psych Mental Status: mental status grossly normal Speech and Movement: speech and movement normal Mood: congruent mood Affect: normal affect Objective Last Vital Signs Temp 36.2 C L 05/25/24 11:16 Pulse 60 05/25/24 11:16 Resp 20 05/25/24 11:16 BP 103/56 L 05/25/24 11:16 Pulse Ox 99 05/25/24 11:16 Laboratory Results - last 24 hr 05/23/24 05/23/24 05/25/24 06:05 10:50 06:05 PT 25.[address] Glu mg/dL 148 Hemoglobin A1c 6.8 H Path Cons Comment Time Spent with Patient Time Spent with Patient: 35-49 minutes Time was spent: preparing to see the patient(eg.review tests), obtaining and/or reviewing separately otained hiistory, ordering medications,tests, procedures, indepentently interpreting results and care coordination
[2024-05-25 16:00] VITALS: BP 109/56; PULSE 70; RESP 20; TEMP 36.7; O2SAT 96
--- NOTE | 2024-05-25 17:32 | W.PALLCONSUL ---
Date of service: 05/25/24 Time of Service: 16:00 History of Present Illness Narrative: Mr. Ang is an 83 y/o M est PC pt currently hospitalized 2/2 UTI and R LLE injury; PC dx CKD/CHF; PMH sig for CKD, CHF w/a fib, DM, HTN, HLD, BPH, GERD, obesity; present today /[facility] Lashawn; Hospital Course: Sav presented to the emergency department on May 20 after 2 to 3 days of cloudy urine, increasing weakness and a fall landing on the right knee. Admitted with UTI, started on cefepime which is now resolved. Orthopedic consult due to nondisplaced vertical cortical fracture, loosening femoral, mid tibial patellar component, treatment would be revision arthroplasty, however this would be considered a significant high risk procedure and complex, requiring a tertiary hospital; alternative plan to trial a brace, which she has started today. PT consult with recommendations for SNF. Palliative care consult placed specifically regarding CODE STATUS per staff: PT placed brace today; pain with any repositioning, excruciating. Brace this afternoon, they did get him up sitting on side of bed, he tried standing 5 times but was not able to related to pain and being unsteady. He was unable to use the EZ lift Sav reports that his pain is worse with repositioning, he is aware that he has lidocaine patches, Tylenol, tramadol available to him, he does not feel that he needs more pain management at this time. He is refusing to have his pre-dinner BS checked, bc he has already been poked twice today, at home he uses a CGM, which is not working correctly. Lashawn reports his BS have been not going over 200 for quite some time, only using 2 units for SSI occasionally. His appetite has been reduced His tenant has been extremely helpful with getting things done around the house, he is helping Sav achieve his goals of doing the things to help support Lashawn after his . he has one daughter, whom has estranged herself from him, this makes him sad and he worries about how she would behave once she learns that Lashawn will be his sole inheritor. his goals continue to be to take care of his many things for his Lashawn prior to his , as long as his pain is controlled. He would also want his to be quick. Recalls previous conversations regarding DNR status and would want this to stand. He is less sure about intubation. he is aware that he is not safe to return home in current condition w/o caregiver support - Lashawn pulls provider aside after visit to raise her concerns w/him not seeing her exhaustion and inability to provide the heavy lifting of personal care. She has a hard time saying no to him or explaining how she is exhausted, she doesn't want him to feel bad or like a burden Assessment and Plan Assessment and plan (1) Discharge planning issues: Status: Acute Assessment and plan: plan for discharge to SNF for acute rehab to see if can regain ambulatory function; reconsider plan w/in 1 mo or sooner if changes mind (2) CKD (chronic kidney disease) stage 5, GFR 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: Status: Acute Assessment and plan: previously reviewed as nearing hospice eligibility, co-morbidities CHF GFR 11.3 (<10 for criteria) CrCl 25 (<20 for criteria) Creatinine 4.8 (>8 for criteria) 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: Status: Acute Assessment and plan: opted for no surgery d/t high risk for during procedure reviewed surgery vs rehab w/brace vs home w/hospice, opted for rehab today Qualifiers: Encounter type: initial encounter Qualified Code(s): M97.11XA - Periprosthetic fracture around internal prosthetic right knee joint, initial encounter (4) Loose right total knee arthroplasty: Status: Acute Qualifiers: Encounter type: sequela Qualified Code(s): T84.032S - Mechanical loosening of internal right knee prosthetic joint, sequela (5) Right knee pain: Status: Acute Assessment and plan: reviewed options for stronger pain management, franco before repositioning, to help w/trials ambulating he is aware he can ask for changes in in pain as needed consider IV fentanyl while hospitalized d/t renal disease; oxycodone PO outpatient (6) Acute UTI: Status: Acute Assessment and plan: resolved (7) Dyspnea: Status: Acute Assessment and plan: resolving w/rest, on RA (8) Deficit in activities of daily living (ADL): Status: Acute Assessment and plan: SNF pending discharge will need caregiver support if returnin home as Lashawn is unable to provide personal care (9) Palliative care patient: Status: Acute (10) Encounter for hospice care discussion: Status: Acute Assessment and plan: reviewed option at this time if desired consider in future (11) Advance care planning: Status: Acute Assessment and plan: reviewed code status, MEJIA from March 2023 UTD, DNR, trial intubation (althought may consider no pending what is occuring, Lashawn feels comfortable w/this role); reviewed knee options: surgery, rehab, home on hospice; see above reviewed GOC and future planning, will need ongoing review, including caregivers additional to family reviewed hospital protocols w/BS and insulin monitoring spent 33 mins w/ACP (12) Pressure ulcer of right ischium: Status: Acute (13) Chronic indwelling Knox catheter: Status: Acute (14) Diabetes mellitus: Status: Chronic Assessment and plan: refused BS check, agreed to 9pm check aware that CGM not working and not what can be used in hospital, reviewed hyperglycemia concerns w/193 reading at meal before dinner, where he won't receive insulin either (15) Kidney stones: Status: Chronic (16) CHF (congestive heart failure): Status: Chronic Review of Systems Narrative: as per HPI PFSH All Active Problems Discharge planning issues (Acute) CKD (chronic kidney disease) stage 5, GFR 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 (Acute) Periprosthetic fracture around internal prosthetic right knee joint (Acute) Loose right total knee arthroplasty (Acute) Hypomagnesemia (Acute) Right knee pain (Acute) Contraindication to deep vein thrombosis (DVT) prophylaxis (Acute) Elevated troponin (Acute) Acute UTI (Acute) Dyspnea (Acute) Palliative care patient (Acute) Deficit in activities of daily living (ADL) (Acute) Encounter for hospice care discussion (Acute) Edema (Acute) Cloudy urine (Acute) Lesion of pancreas (Acute) Obstructive uropathy (Acute) 06/12/23 Per [facility]. -hb Need for home health care (Acute) History of fall (Acute) Noninfected skin tear of left lower extremity (Acute) Fall (Acute) Advance care planning (Acute) Skin tear of left lower leg without complication (Acute) Hyperkalemia (Acute) VRE (vancomycin resistant enterococcus) culture positive (Acute) Hydronephrosis, left (Acute) Hyperphosphatemia (Acute) Pressure ulcer of right ischium (Acute) Chronic indwelling Knox catheter (Acute) Acute renal failure (Acute) Acute UTI (Acute) Diabetes mellitus (Chronic) Atrial fibrillation (Chronic) on coumadin Chronic kidney disease (Chronic) 2020- borderline stage 4 Venous insufficiency (chronic) (peripheral) (Acute) Nail dystrophy (Acute) COVID-19 (Acute ~08/05/22) Thumb pain (Acute) Right heart failure (Acute) Urinary retention (Acute) 11/2021, ultrasound shows significant pretty and post void residual- minimal response to voiding Kidney stones (Chronic) Longstanding history of multiple stones 11/2021 ultrasound showed multiple stones in kidney, 1 stone possibly in right ureter Anemia (Chronic) Chronic mild anemia, associated with CKD Obstructive sleep apnea (Chronic) cpap Acute on chronic heart failure with preserved ejection fraction (Acute) Hives (Acute) Obesity (Acute 02/11/13) Obstructive nephropathy (Acute) Moderate pulmonary arterial systolic hypertension (Chronic) Chronic anticoagulation (Chronic) Polyp of colon (Chronic) Rosacea (Chronic) Constipation (Chronic) CHF (congestive heart failure) (Chronic) Medical History 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 Daughter No problems noted. Social History Smoking/Tobacco Use Status: Never Second Hand Exposure: No Smoking risk assessment performed?: Yes Alcohol Intake: current Alcohol Intake frequency: holidays/special occasions only Drug use: Never Substance use type: does not use Caregiver/Support person: Yes Household members: spouse Housing: house Communication Needs: Hard of Hearing Do you need help understanding health information?: Often Pets and animals: No Sexually active: No What is your relationship status?: How often do you talk on the phone with friends or family?: decline to answer How often do you get together with friends or relatives?: decline to answer How often do you attend nondenominational or episcopal services?: decline to answer Do you belong to any clubs or organized social groups?: decline to answer Panel score (0-1 are the most socially isolated patients): 1 What type of physical activity do you participate in: walking Duration: < 15 minutes/day Frequency: daily Special amor needs: No Do you feel safe at home: Yes Do you feel safe in your relationship?: Yes Exam Narrative Exam Narrative: General: older adult obese male, lying in hospital bed, at bedside, cooperative and pleasant HEENT: normocephalic, atraumatic, hearing grossly abnormal, able to hear w/elevated voice volume Resp: even and unlabored at rest, increased resp effort w/prolonged speech, recovers w/in 20s; no cough, no audible wheeze Neuro: AAOx3; speech WNL Psych: appearance WNL, mood/affect congruent, thought process/content normal, insight/judgment fair Results Last Vital Signs Temp 98.1 F 05/25/24 16:00 Pulse 70 05/25/24 16:00 Resp 20 05/25/24 16:00 BP 109/56 L 05/25/24 16:00 Pulse Ox 96 05/25/24 16:00 Labs 05/24/24 06:05 05/24/24 06:05 Labs: Laboratory Results - last 24 hr 05/23/24 05/23/24 05/25/24 06:05 10:50 06:05 PT 25.6 H INR 2.[address] Glu mg/dL 148 Hemoglobin A1c 6.8 H Path Cons Comment
[2024-05-25 19:20] VITALS: BP 95/48; PULSE 70; RESP 28; TEMP 36.6; O2SAT 93
[2024-05-25] MEDS: cefTRIAXone 1 GM/50 ML BAG IVPB (20:45)
[2024-05-25] MEDS: Metoprolol CR 25 MG TABCR 12.5 MG PO (21:33)
[2024-05-25] MEDS: traMADol 50 MG TAB 25 MG PO (21:34)
[2024-05-25] MEDS: Melatonin 3 MG TAB 9 MG PO (21:34)
[2024-05-25] MEDS: Pravastatin 40 MG TAB PO (21:36)
[2024-05-25] MEDS: Tamsulosin 0.4 MG CAPCR PO (21:36)
[2024-05-25] MEDS: Gabapentin 100 MG CAP 200 MG PO (21:36)
[2024-05-25] MEDS: Insulin Glargine 300 UNITS/3 ML PEN 30 UNITS SC (21:38)
[2024-05-25 23:27] VITALS: BP 106/52; PULSE 66; RESP 19; TEMP 36; O2SAT 96
[2024-05-26 07:57] VITALS: BP 115/68; PULSE 71; RESP 20; TEMP 36.4; O2SAT 97
[2024-05-26 08:24] LABS: Abs Immature Grans 0.04 10^3/uL (0.0-0.06); Absolute Basophil Count 0.03 10^3/uL (0.0-0.2); Absolute Eosinophil Count 0.27 10^3/uL (0.0-0.7); Absolute Lymphocyte Count 1.18 10^3/uL (1.2-3.4); Absolute Monocyte Count 0.43 10^3/uL (0.1-0.8); Absolute Neutrophil Count 2.28 10^3/uL (1.2-6.7); Basophils % 0.7 %; Eosinophils % 6.4 %; HCT 25.8 % (40.0-50.0); HGB 7.8 g/dL (13.5-17.5); Immature Grans % 0.9 %; Lymphocytes % 27.9 %; MCH 28.1 pg (27.0-33.0); MCHC 30.2 % (32.0-36.0); MCV 93 fL (80-95); MPV 8.9 fL (8.0-11.0); Monocytes % 10.2 %; Neutrophils % 53.9 %; Platelet Count 133 10^3/uL (130-400); RBC 2.78 10^6/uL (4.36-5.78); RDW 15.2 % (11.8-14.1); RDW-SD 50.4 fL; WBC 4.23 10^3/uL (4.4-10.8)
[2024-05-26 08:35] LABS: INR 3.7 (0.9-1.1); Prothrombin Time 32.8 sec (9.1-11.1)
[2024-05-26 08:36] LABS: Anion Gap 9.7 mmol/L (3-11); BUN 57 mg/dL (7-18); CO2 26.3 mmol/L (21.0-32.0); Calcium 9.3 mg/dL (8.5-10.1); Chloride 102 mmol/L (98-107); Estimated GFR 11.59 (mL/min/1.73m2); Glucose 179 mg/dL (74-106); Potassium 3.6 mmol/L (3.5-5.1); Sodium 138 mmol/L (136-145)
[2024-05-26 08:39] LABS: CREATININE 4.7 mg/dL (0.70-1.30)
[2024-05-26] MEDS: Insulin Aspart 300 UNITS/3 ML PEN SC ×3 (08:45→17:10)
--- NOTE | 2024-05-26 08:53 | PTTR_ITS ---
PT Notes Visit Reasons: UTI, Pyelonephritis Weakness Inpatient Physical Therapy Treatment Note [facility] Date: 05/26/24 PRECAUTIONS:UTI, Pyelonephritis Weakness, Standard SUBJECTIVE: Pt reports that he wants to do what he needs to to go home. OBJECTIVE: Therapeutic Activities (31756b[[id number]]): Direct one-on-one instruction in dynamic activities to improve functional performance. ? BED MOBILITY/TRANSFERS? Supine-sit: Modx3? Sit-stand: Steady lift with Min assist x 3? Stand-sit: Steady lift with CGA x 3 ? Bed-Chair: Steady lift ? Provided skilled cues and instruction on performance and technique through out. Gait Training ([id number][]): Direct one-on-one instruction and skilled instruction in: ? Therapeutic Exercises ([id number][]): Direct one-on-one instruction in therapeutic exercises to develop strength, endurance, range of motion and flexibility. ? Exercises ? Seated hip abd x 5 B Seated heel slide x 5 B Seated Q.S. x 10 Rowing x 10 Shoulder horz abd x 10 Shoulder flexion x 10 Shoulder circles x 10 ASSESSMENT:? Pt has the most weakness and difficulty with bed transfers. PLAN: Cont as per PT POC. TREATMENT CODE/TIME: 8:30-8:53 (23) TAx2
[2024-05-26] MEDS: Polyethylene Glycol 3350 17 GM PACKET PO (08:59)
[2024-05-26] MEDS: Lidocaine 5% Patch 2 PATCH TP (08:59)
[2024-05-26] MEDS: Diclofenac 1% Gel 100 GM TUBE TP ×3 (09:01→20:43)
[2024-05-26] MEDS: Triamcinolone 0.1% CR 15 GM TUBE TP ×2 (09:01→20:44)
[2024-05-26] MEDS: Metoprolol CR 25 MG TABCR 12.5 MG PO ×2 (09:02→20:42)
[2024-05-26] MEDS: Docusate Sodium 100 MG CAP PO ×2 (09:02→20:44)
[2024-05-26] MEDS: Torsemide 20 MG TAB 40 MG PO (09:02)
[2024-05-26] MEDS: Acetaminophen 500 MG TAB 1000 MG PO ×3 (09:03→20:42)
[2024-05-26] MEDS: Aspirin E.C. 81 MG TABEC PO (09:03)
[2024-05-26] MEDS: Finasteride 5 MG TAB PO (09:03)
[2024-05-26] MEDS: Cyanocobalamin 500 MCG TAB 1000 MCG PO (09:03)
[2024-05-26] MEDS: Multivitamin TAB 1 TAB PO (09:03)
[2024-05-26] MEDS: Normal Saline Flush 10 ML SYR IVP ×2 (09:04→20:44)
--- NOTE | 2024-05-26 09:48 | CMPROGNOTE_ITS ---
Date of service: 05/26/24 Time of Service: 09:48 Care Management Progress Note Progress Note Text Progress Note Text: Sav was sitting up in bed visiting with his when CM met with him. Referrals were sent to the [facility] and [facility] and today Sav received bed offers from both facilities. After a brief discussion they decided to choose [facility]. CM notified the director aeronautics commission and the prior authorization process was started. At the end of the day, Sav and his changed their minds and decided to go to the [facility] instead. It was too late to contact the director aeronautics commission at the [facility] as she had left for the day. CM will attempt to reach her tomorrow to see if there is still a bed available. Discharge Potential Discharge Needs: Other (SNF) Anticipated Barriers to Discharge: Bed availability Patient/Family Education Needs: Review discharge instructions, discuss Ask Me Three Transportation: Other (to be determined by disposition) Plan: Anticipate Sav will be transferred to a SNF when ready for discharge. Referrals have been sent to [facility] and [facility] and offers were received from both. Initially Sav accepted the offer from [facility] but changed his mind at the end of the day. CM will attempt to secure the bed at the [facility] tomorrow if it is still available. Sav will follow up with facility providers and plan of care and transport via facility van vs RCT. CM will continue to assess for discharge needs. SDOH(Care Management) Screening Will the Patient Participate in the Screening?: Yes Do you worry about having a steady place to live?: yes Problems where you live: no known problems In the past 12 months, have you had to go without electric, gas, oil or water in your home?: no Have you or anyone in your house had to go without enough food to eat?: no Has lack of transportation kept you from medical appointments or from doing things needed for daily living?: no Has anyone in your support network made you feel unsafe for any reason?: no Health Related Social Needs Health related social needs: housing instability, housed, with risk of homelessness(Z59.811)
--- NOTE | 2024-05-26 10:38 | DM INPTCON_ITS ---
Date of service: 05/26/24 Time of Service: 10:30 Diabetes Inpatient Consult Reason for Visit: diabetes educaton consult DESCRIPTION/ASSESSMENT: Sav is 83yo pt who lives at home with his -she does the shopping and cooking. History of CKD stage 5 and on anticoagulant therapy with warfarin. Weight history shows 7kg weight gain over the last year - fluid contributing to this at least in partial. helps administer insulin at 30units HS of lantus and Novolog at meals based on sliding scale when glucose is >150. He is not able to ambulate at this time - plan is to discharge next door to [facility] and rehab per Sav's . INTERVENTION: Patient has low capability of ADL's and his does most of his diabetes mgt with diet and medication administration. She was open to taking my card for s ome guidance in the outpatient setting once Sav finishes rehab. Pt will contnue on carb consistent diet until anticipated d/c tomorrow. PLAN: Will remain available for any nutrition needs in outpatient setting Time Spent in Nutritional Counseling and Treatment: 10 min
[2024-05-26 11:44] VITALS: BP 101/65; PULSE 70; RESP 20; TEMP 36.4; O2SAT 98
[2024-05-26 15:11] VITALS: BP 112/63; PULSE 65; RESP 20; TEMP 36.5; O2SAT 98
--- NOTE | 2024-05-26 15:54 | PT.INTREAT ---
PT Notes Visit Reasons: UTI, Pyelonephritis Weakness Date: 05/26/2024 PRECAUTIONS: UTI, Pyelonephritis Weakness, Standard SUBJECTIVE: pt in recliner when approached for herapy tis afternoon, agreed to trial sit to stand using steady lift. OBJECTIVE: ? PAIN: Right knee pain on movement VITALS: MOnitored by nursing ? Therapeutic Activities 84295: Direct one-on-one instruction in dynamic activities to improve functional performance. ?? BED MOBILITY/TRANSFERS? Rolling L/R: Max A Supine-sit: ? Max A ? Sit-supine: ?Max A? Sit-stand: ?Max A ? Stand-sit: ?Max A? Bed-Chair:? Hina lift? Chair-bed: Hina lift Provided skilled cues and instruction on performance and technique throughout. ? Therapeutic Exercises [id number]: Direct one-on-one instruction in therapeutic exercises to develop strength, endurance, range of motion and flexibility. Exercises Seated hip abd x 5 B Seated heel slide x 5 B Seated Q.S. x 10 Rowing x 10 Shoulder horz abd x 10 Shoulder flexion x 10 Shoulder circles x 10 ? Provided skilled instruction in proper exercise performance Provided skilled manual cues to facilitate proper muscle recruitment and/or form: ASSESSMENT:?Multiple attempts at transitioning from sit to stand fro recliner to steady lift, pt unsuccessful, transferred pt from recliner to Bed to allow for bed elevation to improve pt chances of being able to stand up by himself using steady lift, pt reports he feels very exhausted after the transfer and refused further engagement after getting situated in bed. PLAN: Continue with Standing Balance activity, global strengthening and general conditioning for improved safety, mobility and activity tolerance until pt is ready for DC. TREATMENT CODE/TIME: Therapeutic activity [id number] 25mins (2:30-2:55pm)
--- NOTE | 2024-05-26 17:44 | W.PM.PROGNOT ---
Date of Service Date of service: 05/26/24 Time of Service: 17:44 Assessment and Plan Assessment and plan (1) Acute UTI: Status: Acute Assessment and plan: culture growing serratia M and Enterobacter cloacae complex both sensitive to ceftriaxone day 7 (2) Right knee pain: Status: Acute Assessment and plan: XR negative for fracture or hardware displacement but CT showed non-displaced vertical cortical fracture and loosening of both femoral, midtibial and patellar component of the prosthesis with large ipsilateral large joint effusion which was drained on 05/23 Continue multimodal pain management with: Scheduled APAP PRN tramadol Ice pack PRN Diclofenac topical Lidocaine patch PT consult in progress Ortho consult completed - please read notes: -Patient was seen by Dr. Harris who is familiar with the patient's orthopedic history -The patient is not a candidate for surgery d/t multiple comorbidities and anesthesia risk an [facility] -Joint aspiration of right knee effusion was completed on 05/23; gram stain showed no bacteria and cultures no growth -Discussed consultation with [facility] and Patient is refusing surgery after discussion. Brace recommendation from discussion with Dr. Harris: -Hinged knee brace smaller one VS longer one with consideration body habitus.Ordered on 05/23, pending Patient reported to stay in bed at home as per spouse. Patient would like to go to the [facility] for rehab. 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, initial encounter (4) Loose right total knee arthroplasty: Status: Acute Assessment and plan: as above Qualifiers: Encounter type: sequela Qualified Code(s): T84.032S - Mechanical loosening of internal right knee prosthetic joint, sequela (5) Anemia: Status: Chronic Assessment and plan: Most likely d/t right knee effusion combined with CKD V, but erythropoietin level in 03/2023 was 32.0 Type and screen on 05/22 Stool guaic Will transfuse if symptomatic or Hgb< 7.0, HGB 7.1 today Iron studies: Fe 28, TIBC 221, Transferrin % sat 13 -Iron sucrose IV 300 mg in AM , one dose given today -Calculated iron deficit of > 1300mg ( with ideal weight) B12 : 322 -Cyancobalamin 1000 mg po daily -Acute phase reactant level should be higher in the setting of acute illness/infection Hgb 7.8 today - ~ baseline (6) Atrial fibrillation: Status: Chronic Assessment and plan: Metoprolol succinate continue 12.5 mg BID with parameters On warfarin INR warfarin tonight 3.7 - continue home dosing tomorrow PT/INR in a.m. 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: Status: Acute Assessment and plan: GFR 11.59, Cr 4.7 again today - baseline CT w contrast completed on 05/23 LVEF 55% w/o systolic dysfunction (8) Hypomagnesemia: Status: Resolved Assessment and plan: resolved QTc on EKG tracing remains at 0.44 this morning despite magnesium correction; will discontinue telemetry (9) Elevated troponin: Status: Resolved Assessment and plan: Resolved Echo US resulted and report indicated:(study was poor technically limited due to body habitus) -LVEF of 55%, RVSP of 26.5 mmHg, -Normal overall left ventricular systolic function without ventricular septal defect. -Right ventricular systolic function could not be assessed due to poor visualization of the right ventricle. - IVC of normal size with over 50% collapse with inspiration. -No pericardial effusion noticed. (10) Deficit in activities of daily living (ADL): Status: Acute Assessment and plan: PT consult : Difficulty working w PT but improving as knee pain is better , brace is pending Managing right knee pain to improve patient's ability to work with physical therapy Brace ordered as per ortho consult Referral to SNF pending (11) Palliative care patient: Status: Acute Assessment and plan: Palliative care consult see note (12) Contraindication to deep vein thrombosis (DVT) prophylaxis: Status: Acute Assessment and plan: On warfarin for A-fib (13) Diabetes mellitus: Status: Chronic Assessment and plan: NIBG AC and HS, SSI coverage,and home dose insulin bolus w lantus ; A1C 7.3 (14) Discharge planning issues: Status: Acute Assessment and plan: referrals placed for rehab. No f/u with [facility] for surgery as per patient Discussed with Dr. Traore Subjective Subjective Patient reports: no new complaints Exam Const General: cooperative and no acute distress Nutritional Appearance: obese Orientation: alert, awake and oriented x3 HENMT Head: normal to inspection, normocephalic and atraumatic Mouth: oral mucosae normal Eyes General: appearance normal, both eyes and all related structures Neck Neck: normal visual inspection and full ROM Chest Chest: normal inspection of the chest Resp Effort & Inspection: normal respiratory effort Cardio Rate: regular rate Rhythm: regular rhythm GI Inspection: obesity Palpation: soft Penis: other (griffin catheter in place, draining med yellow urine) Neuro General: patient alert, patient awake and patient oriented x3 Cognition: normal cognition Speech: speech normal Motor: muscle tone normal throughout Extrem Right lower extremity: knee Details: tenderness and swelling; ROM abnormal Other: red staining bilateral lower extremities 2/3 up calves circumferentially, Psych Mental Status: mental status grossly normal Speech and Movement: speech and movement normal Mood: congruent mood Affect: normal affect Objective Last Vital Signs Temp 36.5 C 05/26/24 15:11 Pulse 65 05/26/24 15:11 Resp 20 05/26/24 15:11 BP 112/63 05/26/24 15:11 Pulse Ox 98 05/26/24 15:11 Laboratory Results - last 24 hr 05/26/24 05/26/24 08:05 08:15 WBC 4.23 L RBC 2.78 L Hgb 7.8 L Hct 25.8 L MCV 93 MCH 28.1 MCHC 30.2 L RDW 15.2 H Plt Count 133 MPV 8.9 Immature Gran % 0.9 Neutrophils % 53.9 Lymphocytes % 27.9 Monocytes % 10.2 Eosinophils % 6.4 Basophils % 0.7 Nucleated RBC % 0.0 Absolute Neutrophils 2.28 Absolute Lymphocytes 1.18 L Absolute Monocytes 0.43 Absolute Eosinophils 0.27 Absolute Basophils 0.03 PT 32.8 H INR 3.7 H Sodium 138 Potassium 3.6 Chloride 102 Carbon Dioxide 26.3 Anion Gap 9.7 BUN 57 H Creatinine 4.7 H* Est GFR (CKD-EPI 2020) 11.59 Glucose 179 H Calcium 9.3 Time Spent with Patient Time Spent with Patient: 25-34 minutes Time was spent: preparing to see the patient(eg.review tests), ordering medications,tests, procedures, referring, communicating with other health acute care nurse practitioner, indepentently interpreting results, counseling the patient and care coordination
[2024-05-26 20:03] VITALS: BP 102/56; PULSE 67; RESP 20; TEMP 36.7; O2SAT 96
[2024-05-26] MEDS: Gabapentin 100 MG CAP 200 MG PO (20:42)
[2024-05-26] MEDS: Pravastatin 40 MG TAB PO (20:42)
[2024-05-26] MEDS: traMADol 50 MG TAB 25 MG PO (20:43)
[2024-05-26] MEDS: Tamsulosin 0.4 MG CAPCR PO (20:43)
[2024-05-26] MEDS: Melatonin 3 MG TAB 9 MG PO (20:44)
[2024-05-26] MEDS: cefTRIAXone 1 GM/50 ML BAG IVPB (23:20)
[2024-05-26 23:31] VITALS: BP 115/69; PULSE 56; RESP 19; TEMP 36; O2SAT 94
[2024-05-27] VITALS (8 sets, daily range): BP systolic 90–117; BP diastolic 51–84; PULSE 57–72; RESP 18–26; TEMP 36–36.5; O2SAT 95–98
[2024-05-27 07:07] LABS: Abs Immature Grans 0.03 10^3/uL (0.0-0.06); Absolute Basophil Count 0.02 10^3/uL (0.0-0.2); Absolute Eosinophil Count 0.26 10^3/uL (0.0-0.7); Absolute Lymphocyte Count 1.11 10^3/uL (1.2-3.4); Absolute Monocyte Count 0.46 10^3/uL (0.1-0.8); Absolute Neutrophil Count 2.68 10^3/uL (1.2-6.7); Basophils % 0.4 %; Eosinophils % 5.7 %; HCT 23.6 % (40.0-50.0); HGB 7.2 g/dL (13.5-17.5); Immature Grans % 0.7 %; Lymphocytes % 24.3 %; MCH 28.5 pg (27.0-33.0); MCHC 30.5 % (32.0-36.0); MCV 93 fL (80-95); MPV 9.1 fL (8.0-11.0); Monocytes % 10.1 %; Neutrophils % 58.8 %; Platelet Count 141 10^3/uL (130-400); RBC 2.53 10^6/uL (4.36-5.78); RDW 15.4 % (11.8-14.1); RDW-SD 51.2 fL; WBC 4.56 10^3/uL (4.4-10.8)
[2024-05-27 07:18] LABS: INR 3.5 (0.9-1.1); Prothrombin Time 31.7 sec (9.1-11.1)
[2024-05-27 07:28] LABS: Anion Gap 10.9 mmol/L (3-11); BUN 60 mg/dL (7-18); CO2 25.1 mmol/L (21.0-32.0); Chloride 104 mmol/L (98-107); Estimated GFR 12.21 (mL/min/1.73m2); Glucose 179 mg/dL (74-106); Magnesium 1.8 mg/dL (1.8-2.4); Potassium 3.5 mmol/L (3.5-5.1); Sodium 140 mmol/L (136-145)
[2024-05-27 07:31] LABS: CREATININE 4.5 mg/dL (0.70-1.30)
[2024-05-27] MEDS: Triamcinolone 0.1% CR 15 GM TUBE TP ×2 (08:00→22:47)
[2024-05-27] MEDS: Normal Saline Flush 10 ML SYR IVP ×2 (08:00→22:19)
[2024-05-27] MEDS: Diclofenac 1% Gel 100 GM TUBE TP ×4 (08:01→21:55)
[2024-05-27] MEDS: Insulin Aspart 300 UNITS/3 ML PEN SC ×3 (08:01→16:52)
[2024-05-27] MEDS: Metoprolol CR 25 MG TABCR 12.5 MG PO ×2 (08:03→22:05)
[2024-05-27] MEDS: Torsemide 20 MG TAB 40 MG PO (08:03)
[2024-05-27] MEDS: Cyanocobalamin 500 MCG TAB 1000 MCG PO (08:04)
[2024-05-27] MEDS: Acetaminophen 500 MG TAB 1000 MG PO ×3 (08:04→21:50)
[2024-05-27] MEDS: Multivitamin TAB 1 TAB PO (08:04)
[2024-05-27] MEDS: Finasteride 5 MG TAB PO (08:05)
[2024-05-27] MEDS: Docusate Sodium 100 MG CAP PO (08:05)
[2024-05-27] MEDS: Aspirin E.C. 81 MG TABEC PO (08:06)
[2024-05-27] MEDS: Polyethylene Glycol 3350 17 GM PACKET PO (08:06)
[2024-05-27] MEDS: Lidocaine 5% Patch 2 PATCH TP (09:13)
--- NOTE | 2024-05-27 16:51 | PT.INTREAT ---
PT Notes Visit Reasons: UTI, Pyelonephritis Weakness Inpatient Physical Therapy Treatment Note [facility] Date: 05/27/2024 PRECAUTIONS: Hinged knee brace on the R when OOB. Activity as tolerated. SUBJECTIVE: Nursing staff needed assistance with moving patient to assist with toileting. Recommended use of a tall and wide bedside commode for safety. Bariatric commode is ot built to allow for use of STEDY lift and so patient was STED lifted to the toilett instead. OBJECTIVE: ? PAIN: Minimal pain at rest but increase to moderate pain with weight bearing on th R knee ? BED MOBILITY/TRANSFERS? Rolling L/R: Max Assist x2 Supine-sit: Max Assist x2 ? Sit-supine: Max Assist x2? Sit-stand: Max Assist x 2 using FWW/STEDY lift? Stand-sit: Max Assist x 2?using FWW/STEDY lift? ? ? Bed to toilet seat: Moderate assist of 2 using STEDY lift ? ?? Toilet seat to bed : Moderate assist of 2 using STEDY lift ? GAIT: Deferred as patient's standing balance and tolerance is poor due pain in B knees, R more than L compounded by body weight. ASSESSMENT:? Standing tolerance minimally improved due to joint aspiration done on 05/23/2024. Patient will require slow and gradual progression in mobility, strength and balance in a subacute rehab facility prior to discharge to home as is uanble to proved the amount of assistance the patient currently needs. PLAN: Progress overall functional level as tolerated while managing pain in R knee using multi-modal approach. Coordinate with nurse for pain pre-medication. DISCHARGE RECOMMENDATIONS: [] [] Home with no services [] [] Home with services [specify] [] Home with outpatient PT [] [X] SNF for continued rehabilitation. Patient will benefit from snf facility placement for continued skilled physical therapy services in order to progress mobility level, strength, and balance in preparation for a safe discharge to home. [] [facility] [employer] [facility] [] [] SNF versus LTC based on ability to participate and progress [] TREATMENT CODE/TIME: 53017 x 29 minutes for 2 units (16:18-16:33 and 16:51-17:05)
--- NOTE | 2024-05-27 17:52 | CMPROGNOTE_ITS ---
Date of service: 05/27/24 Time of Service: 17:52 Care Management Progress Note Progress Note Text Progress Note Text: CM met with Sav this morning to determine which SNF he would prefer, as he has bed offers at both [facility] and the [facility], and has waivered between the two. He stated that his preference is the [facility], due to the proximity to his home. CM informed [facility] that he declined their bed offer, and the [facility] that he accepted theirs. The [facility] initiated the PA for his insurance, which remained pending throughout the day. CM will continue to follow. Discharge Potential Discharge Needs: PCP F/U Appt and Surgical F/U Appt Anticipated Barriers to Discharge: Bed availability (Ins PA) Patient/Family Education Needs: Review discharge instructions, discuss [facility] Me [facility] Transportation: [facility] RCT Transportation: Wheel chair van Plan: Sav will transfer to the [facility] for short term rehab as early as tomorrow, once the insurance PA has been approved. He will transport via [facility] w/c van, coordinated by CM. He will follow up with his PCP and discharge plan of care. CM will continue to follow. SDOH(Care Management) Screening Will the Patient Participate in the Screening?: Yes Do you worry about having a steady place to live?: yes Problems where you live: no known problems In the past 12 months, have you had to go without electric, gas, oil or water in your home?: no Have you or anyone in your house had to go without enough food to eat?: no Has lack of transportation kept you from medical appointments or from doing things needed for daily living?: no Has anyone in your support network made you feel unsafe for any reason?: no Health Related Social Needs Health related social needs: housing instability, housed, with risk of homelessness(Z59.811)
--- NOTE | 2024-05-27 18:09 | W.PM.PROGNOT ---
Date of Service Date of service: 05/27/24 Time of Service: 18:09 Assessment and Plan Assessment and plan (1) Acute UTI: Status: Acute Assessment and plan: culture growing serratia M and Enterobacter cloacae complex both sensitive to ceftriaxone day 8 (2) Right knee pain: Status: Acute Assessment and plan: XR negative for fracture or hardware displacement but CT showed non-displaced vertical cortical fracture and loosening of both femoral, midtibial and patellar component of the prosthesis with large ipsilateral large joint effusion which was drained on 05/23 Continue multimodal pain management with: Scheduled APAP PRN tramadol Ice pack PRN Diclofenac topical Lidocaine patch PT consult in progress Ortho consult completed - please read notes: -Patient was seen by Dr. Harris who is familiar with the patient's orthopedic history -The patient is not a candidate for surgery d/t multiple comorbidities and anesthesia risk an [facility] -Joint aspiration of right knee effusion was completed on 05/23; gram stain showed no bacteria and cultures no growth -D[facility] consultation with [facility] and Patient is refusing surgery after discussion. Brace recommendation from discussion with Dr. Harris: -Hinged knee brace smaller one VS longer one with consideration body habitus.Ordered on 05/23, pending Patient reported to stay in bed at home as per spouse. Patient would like to go to the [facility]] for rehab. 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, initial encounter (4) Loose right total knee arthroplasty: Status: Acute Assessment and plan: as above Qualifiers: Encounter type: sequela Qualified Code(s): T84.032S - Mechanical loosening of internal right knee prosthetic joint, sequela (5) Anemia: Status: Chronic Assessment and plan: Most likely d/t right knee effusion combined with CKD V, but erythropoietin level in 03/2023 was 32.0 Type and screen on 05/22 Stool guaic Will transfuse if symptomatic or Hgb< 7.0, HGB 7.1 today Iron studies: Fe 28, TIBC 221, Transferrin % sat 13 -Iron sucrose IV 300 mg in AM , one dose given today -Calculated iron deficit of > 1300mg ( with ideal weight) B12 : 322 -Cyancobalamin 1000 mg po daily -Acute phase reactant level should be higher in the setting of acute illness/infection Hgb 7.2 today - ~ baseline (6) Atrial fibrillation: Status: Chronic Assessment and plan: Metoprolol succinate continue 12.5 mg BID with parameters On warfarin INR warfarin tonight 3.5 - hold - - continue home dosing tomorrow PT/INR in a.m. 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: Status: Acute Assessment and plan: GFR 11.59, Cr 4.5 again today - baseline CT w contrast completed on 05/23 LVEF 55% w/o systolic dysfunction (8) Hypomagnesemia: Status: Resolved Assessment and plan: resolved (9) Elevated troponin: Status: Resolved Assessment and plan: Resolved Echo US resulted and report indicated:(study was poor technically limited due to body habitus) -LVEF of 55%, RVSP of 26.5 mmHg, -Normal overall left ventricular systolic function without ventricular septal defect. -Right ventricular systolic function could not be assessed due to poor visualization of the right ventricle. - IVC of normal size with over 50% collapse with inspiration. -No pericardial effusion noticed. (10) Deficit in activities of daily living (ADL): Status: Acute Assessment and plan: PT consult : Difficulty working w PT but improving as knee pain is better , brace is pending Managing right knee pain to improve patient's ability to work with physical therapy Brace ordered as per ortho consult Referral to SNF pending (11) Palliative care patient: Status: Acute Assessment and plan: Palliative care consult see note (12) Contraindication to deep vein thrombosis (DVT) prophylaxis: Status: Acute Assessment and plan: On warfarin for A-fib (13) Diabetes mellitus: Status: Chronic Assessment and plan: NIBG AC and HS, SSI coverage,and home dose insulin bolus w lantus ; A1C 7.3 (14) Discharge planning issues: Status: Acute Assessment and plan: referrals placed for rehab. No f/u with [facility] [place] as per patient Discussed with Dr. Traore Exam Const General: cooperative and no acute distress Nutritional Appearance: obese Orientation: alert, awake and oriented x3 HENMT Head: normal to inspection, normocephalic and atraumatic Mouth: oral mucosae normal Eyes General: appearance normal, both eyes and all related structures Neck Neck: normal visual inspection and full ROM Chest Chest: normal inspection of the chest Resp Effort & Inspection: normal respiratory effort Cardio Rate: regular rate Rhythm: regular rhythm GI Inspection: obesity Palpation: soft Penis: other (griffin catheter in place, draining med yellow urine) Neuro General: patient alert, patient awake and patient oriented x3 Cognition: normal cognition Speech: speech normal Motor: muscle tone normal throughout Extrem Right lower extremity: knee Details: tenderness and swelling; ROM abnormal Other: red staining bilateral lower extremities 2/3 up calves circumferentially, Psych Mental Status: mental status grossly normal Speech and Movement: speech and movement normal Mood: congruent mood Affect: normal affect Objective Last Vital Signs Temp 36.4 C L 05/27/24 15:17 Pulse 72 05/27/24 15:17 Resp 26 H 05/27/24 15:17 BP 100/70 05/27/24 15:57 Pulse Ox 96 05/27/24 15:17 Laboratory Results - last 24 hr 05/27/24 06:06 WBC 4.56 RBC 2.53 L Hgb 7.2 L Hct 23.6 L MCV 93 MCH 28.5 MCHC 30.5 L RDW 15.4 H Plt Count 141 MPV 9.1 Immature Gran % 0.7 Neutrophils % 58.8 Lymphocytes % 24.3 Monocytes % 10.1 Eosinophils % 5.7 Basophils % 0.4 Nucleated RBC % 0.0 Absolute Neutrophils 2.68 Absolute Lymphocytes 1.11 L Absolute Monocytes 0.46 Absolute Eosinophils 0.26 Absolute Basophils 0.02 PT 31.7 H INR 3.5 H Sodium 140 Potassium 3.5 Chloride 104 Carbon Dioxide 25.1 Anion Gap 10.9 BUN 60 H Creatinine 4.5 H* Est GFR (CKD-EPI 2020) 12.21 Glucose 179 H Calcium 9.0 Magnesium 1.8 Time Spent with Patient Time Spent with Patient: 25-34 minutes Time was spent: preparing to see the patient(eg.review tests), ordering medications,tests, procedures, referring, communicating with other health home care administrator, indepentently interpreting results, counseling the patient and care coordination
[2024-05-27] MEDS: Pravastatin 40 MG TAB PO (21:51)
[2024-05-27] MEDS: Tamsulosin 0.4 MG CAPCR PO (21:51)
[2024-05-27] MEDS: Melatonin 3 MG TAB 9 MG PO (21:53)
[2024-05-27] MEDS: Gabapentin 100 MG CAP 200 MG PO (21:55)
[2024-05-27] MEDS: Insulin Glargine 300 UNITS/3 ML PEN 30 UNITS SC (22:20)
[2024-05-28 03:47] VITALS: BP 112/60; PULSE 55; RESP 18; TEMP 35.8; O2SAT 97
[2024-05-28 06:59] LABS: Abs Immature Grans 0.04 10^3/uL (0.0-0.06); Absolute Basophil Count 0.03 10^3/uL (0.0-0.2); Absolute Eosinophil Count 0.21 10^3/uL (0.0-0.7); Absolute Lymphocyte Count 1.18 10^3/uL (1.2-3.4); Absolute Monocyte Count 0.39 10^3/uL (0.1-0.8); Absolute Neutrophil Count 2.36 10^3/uL (1.2-6.7); Basophils % 0.7 %; HCT 24.8 % (40.0-50.0); HGB 7.5 g/dL (13.5-17.5); MCH 28.3 pg (27.0-33.0); MCHC 30.2 % (32.0-36.0); MCV 94 fL (80-95); MPV 9.1 fL (8.0-11.0); Monocytes % 9.3 %; Platelet Count 133 10^3/uL (130-400); RBC 2.65 10^6/uL (4.36-5.78); RDW 15.7 % (11.8-14.1); RDW-SD 50.9 fL; WBC 4.21 10^3/uL (4.4-10.8)
[2024-05-28 07:12] LABS: Anion Gap 10.2 mmol/L (3-11); BUN 60 mg/dL (7-18); C-Reactive Protein 1.96 mg/dL (<or=0.5); CO2 25.8 mmol/L (21.0-32.0); Calcium 9.2 mg/dL (8.5-10.1); Chloride 102 mmol/L (98-107); Estimated GFR 11.89 (mL/min/1.73m2); Glucose 131 mg/dL (74-106); Magnesium 1.7 mg/dL (1.8-2.4); Potassium 3.5 mmol/L (3.5-5.1); Sodium 138 mmol/L (136-145)
[2024-05-28 07:17] LABS: Prothrombin Time 27.3 sec (9.1-11.1)
[2024-05-28 07:20] LABS: CREATININE 4.6 mg/dL (0.70-1.30)
[2024-05-28 08:40] VITALS: BP 102/62; PULSE 68; TEMP 35.9; O2SAT 99
[2024-05-28] MEDS: Diclofenac 1% Gel 100 GM TUBE TP ×4 (08:44→21:50)
[2024-05-28] MEDS: Triamcinolone 0.1% CR 15 GM TUBE TP ×2 (08:44→21:49)
[2024-05-28] MEDS: Polyethylene Glycol 3350 17 GM PACKET PO (08:44)
[2024-05-28] MEDS: Docusate Sodium 100 MG CAP PO (08:45)
[2024-05-28] MEDS: Acetaminophen 500 MG TAB 1000 MG PO ×3 (08:45→21:45)
[2024-05-28] MEDS: Metoprolol CR 25 MG TABCR 12.5 MG PO ×2 (08:46→21:47)
[2024-05-28] MEDS: Torsemide 20 MG TAB 40 MG PO (08:46)
[2024-05-28] MEDS: Aspirin E.C. 81 MG TABEC PO (08:46)
[2024-05-28] MEDS: Finasteride 5 MG TAB PO (08:47)
[2024-05-28] MEDS: Cyanocobalamin 500 MCG TAB 1000 MCG PO (08:47)
[2024-05-28] MEDS: Multivitamin TAB 1 TAB PO (08:47)
[2024-05-28] MEDS: Normal Saline Flush 10 ML SYR IVP ×3 (08:48→21:49)
[2024-05-28] MEDS: Lidocaine 5% Patch 2 PATCH TP (08:49)
[2024-05-28] MEDS: Insulin Aspart 300 UNITS/3 ML PEN SC ×3 (09:25→17:13)
--- NOTE | 2024-05-28 10:14 | W.PM.PROGNOT ---
Date of Service Date of service: 05/28/24 Time of Service: 10:14 Assessment and Plan Assessment and plan (1) Acute UTI: Status: Acute Assessment and plan: Culture growing serratia M and Enterobacter cloacae complex both sensitive to ceftriaxone day 9 Urinalysis ordered resulting in moderate leukk esterase, urine culture pending (2) Right knee pain: Status: Acute Assessment and plan: CT showed non-displaced vertical cortical fracture and loosening of both femoral, midtibial and patellar component of the prosthesis with large ipsilateral large joint effusion which was drained on 05/23 Continue multimodal pain management with: Scheduled APAP PRN tramadol Ice pack PRN Diclofenac topical Lidocaine patch PT consult in progress Ortho consult completed - please read notes: -Patient was seen by Dr. Harris who is familiar with the patient's orthopedic history -The patient is not a candidate for surgery d/t multiple comorbidities and anesthesia risk an [facility] -Joint aspiration of right knee effusion was completed on 05/23; gram stain showed no bacteria and cultures no growth -Discussed consultation with [facility] and Patient is refusing surgery after discussion. Brace recommendation from discussion with Dr. Harris: -Hinged knee brace smaller one VS longer one with consideration body habitus.Not well tolerated Patient reported to stay in bed at home as per spouse. Patient would like to go to the [facility] for rehab. 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, initial encounter (4) Loose right total knee arthroplasty: Status: Acute Assessment and plan: as above Qualifiers: Encounter type: sequela Qualified Code(s): T84.032S - Mechanical loosening of internal right knee prosthetic joint, sequela (5) Anemia: Status: Chronic Assessment and plan: Most likely d/t right knee effusion combined with CKD V, but erythropoietin level in 03/2023 was 32.0 Type and screen on 05/22 Stool guaic-negative Will transfuse if symptomatic or Hgb< 7.0, HGB 7.5 today Iron studies showed : Fe 28, TIBC 221, Transferrin % sat 13 -Iron sucrose IV 300 mg X2 days -Calculated iron deficit of > 1300mg ( with ideal weight) -oral iron B12 : 322 -Cyancobalamin 1000 mg po daily -Acute phase reactant level should be higher in the setting of acute illness/infection (6) Atrial fibrillation: Status: Chronic Assessment and plan: Metoprolol succinate 12.5 mg BID changed with parameters On warfarin INR warfarin tonight 3.0 - home dose today PT/INR in a.m. 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: Status: Acute Assessment and plan: GFR 11.59, Cr 4.[address] w contrast completed on 05/23 LVEF 55% w/o systolic dysfunction ; could tolerate IVF small bolus if needed BMP in AM (8) Hypomagnesemia: Status: Resolved Assessment and plan: Mg 1.7 , supplementation ordered Mg level in AM (9) Elevated troponin: Status: Resolved Assessment and plan: Resolved Echo US resulted and report indicated:(study was poor technically limited due to body habitus) -LVEF of 55%, RVSP of 26.5 mmHg, -Normal overall left ventricular systolic function without ventricular septal defect. -Right ventricular systolic function could not be assessed due to poor visualization of the right ventricle. - IVC of normal size with over 50% collapse with inspiration. -No pericardial effusion noticed. (10) Deficit in activities of daily living (ADL): Status: Acute Assessment and plan: PT consult : Difficulty working w PT but improving as knee pain is better , brace orderedn but the patient refused to wear it re; discoomfort Managing right knee pain to improve patient's ability to work with physical therapy Brace ordered as per ortho consult but refused Mepilex to sacral healed ulcers as per report from spouse. Wound care consult ordered and pending (11) Palliative care patient: Status: Acute Assessment and plan: Palliative care consult see note (12) Contraindication to deep vein thrombosis (DVT) prophylaxis: Status: Acute Assessment and plan: On warfarin for A-fib (13) Diabetes mellitus: Status: Chronic Assessment and plan: NIBG AC and HS: 156 to 215, continue w SSI coverage,and home dose insulin bolus w lantus ; A1C 7.3 (14) Discharge planning issues: Status: Acute Assessment and plan: referrals to the [facility] pending PA and discharge in the morning No f/u with [facility] for [place] as per patient Discussed with Dr. Traore Subjective Subjective Patient reports: no new complaints, feels better, tolerating liquids well, tolerating a regular diet, voiding w/o difficulty, flatus and bowel movement; denies diarrhea, nausea, vomiting, shortness of breath or fever Exam Narrative Exam Narrative: Constitutional Right knee with increased range of motion and less pain on flexion and extension; less swelling noted Neuro:alert and oriented X 3, no deficit Resp: clear lung bilaterally Cardio: S1, S2, distant, TEDs in place less LE's edema GI: Abdomen is obese remains not distended, soft and non tender, bowel sounds are present :Chronic griffin in place from 05/20 replaced in ED, no CVA tenderness Skin: no opened wound to exposed skin, sacral mepilex Psych: RASS 0, congruent mood and normal affect. Objective Last Vital Signs Temp 35.9 C L 05/28/24 08:40 Pulse 68 05/28/24 08:40 Resp 18 05/28/24 03:47 BP 102/62 05/28/24 08:40 Pulse Ox 99 05/28/24 08:40 Laboratory Results - last 24 hr 05/28/24 06:24 WBC 4.21 L RBC 2.65 L Hgb 7.5 L Hct 24.8 L MCV 94 MCH 28.3 MCHC 30.2 L RDW 15.7 H Plt Count 133 MPV 9.1 Immature Gran % 1.0 Neutrophils % 56.0 Lymphocytes % 28.0 Monocytes % 9.3 Eosinophils % 5.0 Basophils % 0.7 Nucleated RBC % 0.0 Absolute Neutrophils 2.36 Absolute Lymphocytes 1.18 L Absolute Monocytes 0.39 Absolute Eosinophils 0.21 Absolute Basophils 0.03 PT 27.3 H INR 3.0 H Sodium 138 Potassium 3.5 Chloride 102 Carbon Dioxide 25.8 Anion Gap 10.2 BUN 60 H Creatinine 4.6 H* Est GFR (CKD-EPI 2020) 11.89 Glucose 131 H Calcium 9.2 Magnesium 1.7 L C-Reactive Protein 1.96 H Time Spent with Patient Time Spent with Patient: >50 minutes Time was spent: preparing to see the patient(eg.review tests), obtaining and/or reviewing separately otained hiistory, ordering medications,tests, procedures, referring, communicating with other health healthcare risk control consultant, indepentently interpreting results, counseling the patient and care coordination
[2024-05-28] MEDS: MAGNESIUM SULFATE 2 GM/50 ML BAG IVINF (10:46)
[2024-05-28 11:14] LABS: Bilirubin Negative (Negative); Blood Large (Negative); Clarity Cloudy (Clear); Glucose Negative (Negative); Ketones Negative (Negative); Leukocyte Esterase Moderate (Negative); Nitrite Negative (Negative); Urobilinogen 0.2 mg/dL (Up to 0.2); pH 5.5 (5-8)
[2024-05-28 11:20] LABS: Bacteria Few HPF (Negative); C & S Indicated? Yes; Casts 0-2 Hyaline LPF (Negative); Crystals Negative HPF (Negative); Epithelial Cells Rare HPF (Negative); Mucus Negative (Negative); RBC >50 HPF (0-2); WBC >50 HPF (0-5)
--- NOTE | 2024-05-28 13:09 | PTTR_ITS ---
PT Notes Visit Reasons: UTI, Pyelonephritis Weakness Inpatient Physical Therapy Treatment Note [facility] Date: 05/28/2024 PRECAUTIONS: Hinged knee brace on the R when OOB. Activity as tolerated. SUBJECTIVE: Nursing staff needed assistance with moveing patient back in bed. OBJECTIVE: ? PAIN: Minimal pain at rest but increase to moderate pain with weight bearing ? BED MOBILITY/TRANSFERS: Nurse Ramirez assisted for safety ? Sit-supine: Max Assist x2? Scooting up in bed: total assistance with bed in minimal Trendelenberg posisiton? GAIT: Deferred as patient's standing balance and tolerance is poor due pain in B knees, R more than L compounded by body weight. ASSESSMENT:? Patient will require slow and gradual progression in mobility, strength and balance in a subacute rehab facility prior to discharge to home as is uanble to proved the amount of assistance the patient currently needs. PLAN: Progress overall functional level as tolerated while managing pain in R knee using multi-modal approach. Coordinate with nurse for pain pre-medication. DISCHARGE RECOMMENDATIONS: [] [] Home with no services [] [] Home with services [specify] [] Home with outpatient PT [] [X] SNF for continued rehabilitation. Patient will benefit from long-term facility placement for continued skilled physical therapy services in order to progress mobility level, strength, and balance in preparation for a safe discharge to home. [] Longterm Care [] [] SNF versus LTC based on ability to participate and progress [] TREATMENT CODE/TIME: [id number] x 18 minutes for 1 unit (13:09-13:27)
[2024-05-28 21:37] VITALS: BP 120/64; PULSE 63; RESP 18; TEMP 36.9; O2SAT 97
[2024-05-28] MEDS: Pravastatin 40 MG TAB PO (21:46)
[2024-05-28] MEDS: Melatonin 3 MG TAB 9 MG PO (21:46)
[2024-05-28] MEDS: Tamsulosin 0.4 MG CAPCR PO (21:47)
[2024-05-28] MEDS: Insulin Glargine 300 UNITS/3 ML PEN 30 UNITS SC (21:49)
[2024-05-28] MEDS: Gabapentin 100 MG CAP 200 MG PO (21:50)
[2024-05-29 03:24] VITALS: BP 101/63; PULSE 61; RESP 20; TEMP 36.5; O2SAT 98
[2024-05-29 06:35] LABS: Abs Immature Grans 0.04 10^3/uL (0.0-0.06); Absolute Basophil Count 0.03 10^3/uL (0.0-0.2); Absolute Eosinophil Count 0.24 10^3/uL (0.0-0.7); Absolute Lymphocyte Count 1.44 10^3/uL (1.2-3.4); Absolute Monocyte Count 0.48 10^3/uL (0.1-0.8); Absolute Neutrophil Count 2.31 10^3/uL (1.2-6.7); Basophils % 0.7 %; Eosinophils % 5.3 %; HCT 25.1 % (40.0-50.0); HGB 7.6 g/dL (13.5-17.5); Immature Grans % 0.9 %; Lymphocytes % 31.7 %; MCH 28.6 pg (27.0-33.0); MCHC 30.3 % (32.0-36.0); MCV 94 fL (80-95); Monocytes % 10.6 %; Neutrophils % 50.8 %; Platelet Count 132 10^3/uL (130-400); RBC 2.66 10^6/uL (4.36-5.78); RDW 15.9 % (11.8-14.1); RDW-SD 51.3 fL; WBC 4.54 10^3/uL (4.4-10.8)
[2024-05-29 06:46] LABS: INR 2.3 (0.9-1.1); Prothrombin Time 21.8 sec (9.1-11.1)
[2024-05-29 06:54] LABS: BUN 61 mg/dL (7-18); Calcium 9.2 mg/dL (8.5-10.1); Chloride 101 mmol/L (98-107); Estimated GFR 11.89 (mL/min/1.73m2); Glucose 121 mg/dL (74-106); Magnesium 2.2 mg/dL (1.8-2.4); Potassium 3.8 mmol/L (3.5-5.1); Sodium 136 mmol/L (136-145)
[2024-05-29 06:57] LABS: CREATININE 4.6 mg/dL (0.70-1.30)
[2024-05-29 07:15] VITALS: BP 127/69; PULSE 68; RESP 18; TEMP 36.5; O2SAT 96
[2024-05-29] MEDS: Metoprolol CR 25 MG TABCR 12.5 MG PO (08:28)
[2024-05-29] MEDS: Polyethylene Glycol 3350 17 GM PACKET PO (08:28)
[2024-05-29] MEDS: Insulin Aspart 300 UNITS/3 ML PEN SC (08:29)
[2024-05-29] MEDS: Diclofenac 1% Gel 100 GM TUBE TP (08:30)
[2024-05-29] MEDS: Triamcinolone 0.1% CR 15 GM TUBE TP (08:32)
[2024-05-29] MEDS: Lidocaine 5% Patch 2 PATCH TP (08:33)
[2024-05-29] MEDS: Acetaminophen 500 MG TAB 1000 MG PO (08:34)
[2024-05-29] MEDS: Torsemide 20 MG TAB 40 MG PO (08:34)
[2024-05-29] MEDS: Cyanocobalamin 500 MCG TAB 1000 MCG PO (08:34)
[2024-05-29] MEDS: Docusate Sodium 100 MG CAP PO (08:34)
[2024-05-29] MEDS: Multivitamin TAB 1 TAB PO (08:35)
[2024-05-29] MEDS: Ferrous Sulfate 325 MG TAB PO (08:35)
[2024-05-29] MEDS: Aspirin E.C. 81 MG TABEC PO (08:35)
[2024-05-29] MEDS: Finasteride 5 MG TAB PO (08:35)
[2024-05-29] MEDS: Normal Saline Flush 10 ML SYR IVP (08:36)
--- NOTE | 2024-05-29 09:01 | PGE_ITS ---
Date of Service Date of service: 05/29/24 Time of Service: 09:01 Assessment and Plan Assessment and plan (1) Acute UTI: Status: Acute Assessment and plan: Culture growing serratia M and Enterobacter cloacae complex both sensitive to ceftriaxone day 9 Urinalysis ordered resulting in moderate leukk esterase, urine culture pending (2) Right knee pain: Status: Acute Assessment and plan: CT showed non-displaced vertical cortical fracture and loosening of both fe moral, midtibial and patellar component of the prosthesis with large ipsilateral large joint effusion which was drained on 05/23 Continue multimodal pain management with: Scheduled APAP PRN tramadol Ice pack PRN Diclofenac topical Lidocaine patch PT consult in progress Ortho consult completed - please read notes: -Patient was seen by Dr. Harris who is familiar with the patient's orthopedic history -The patient is not a candidate for surgery d/t multiple comorbidities and anesthesia risk an [facility] -Joint aspiration of right knee effusion was completed on 05/23; gram stain showed no bacteria and cultures no growth -Discussed consultation with [facility] [place] and Patient is refusing surgery after discussion. Brace recommendation from discussion with Dr. Harris: -Hinged knee brace smaller one VS longer one with consideration body habitus.Not well tolerated Patient reported to stay in bed at home as per spouse. Patient would like to go to the [facility] for rehab. 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, initial encounter (4) Loose right total knee arthroplasty: Status: Acute Assessment and plan: as above Qualifiers: Encounter type: sequela Qualified Code(s): T84.032S - Mechanical loosening of internal right knee prosthetic joint, sequela (5) Anemia: Status: Chronic Assessment and plan: Most likely d/t right knee effusion combined with CKD V, but erythropoietin level in 03/2023 was 32.0 Type and screen on 05/22 Stool guaic-negative Will transfuse if symptomatic or Hgb< 7.0, HGB 7.5 today Iron studies showed : Fe 28, TIBC 221, Transferrin % sat 13 -Iron sucrose IV 300 mg X2 days -Calculated iron deficit of > 1300mg ( with ideal weight) -oral iron B12 : 322 -Cyancobalamin 1000 mg po daily -Acute phase reactant level should be higher in the setting of acute illness/infection (6) Atrial fibrillation: Status: Chronic Assessment and plan: Metoprolol succinate 12.5 mg BID changed with parameters On warfarin INR warfarin tonight 3.0 - home dose today PT/INR in a.m. 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: Status: Acute Assessment and plan: GFR 11.59, Cr 4.[address] w contrast completed on 05/23 LVEF 55% w/o systolic dysfunction ; could tolerate IVF small bolus if needed BMP in AM (8) Hypomagnesemia: Status: Resolved Assessment and plan: Mg 1.7 , supplementation ordered Mg level in AM (9) Elevated troponin: Status: Resolved Assessment and plan: Resolved Echo US resulted and report indicated:(study was poor technically limited due to body habitus) -LVEF of 55%, RVSP of 26.5 mmHg, -Normal overall left ventricular systolic function without ventricular septal defect. -Right ventricular systolic function could not be assessed due to poor visualization of the right ventricle. - IVC of normal size with over 50% collapse with inspiration. -No pericardial effusion noticed. (10) Deficit in activities of daily living (ADL): Status: Acute Assessment and plan: PT consult : Difficulty working w PT but improving as knee pain is better , brace orderedn but the patient refused to wear it re; discoomfort Managing right knee pain to improve patient's ability to work with physical therapy Brace ordered as per ortho consult but refused Mepilex to sacral healed ulcers as per report from spouse. Wound care consult ordered and pending (11) Palliative care patient: Status: Acute Assessment and plan: Palliative care consult see note (12) Contraindication to deep vein thrombosis (DVT) prophylaxis: Status: Acute Assessment and plan: On warfarin for A-fib (13) Diabetes mellitus: Status: Chronic Assessment and plan: NIBG AC and HS: 156 to 215, continue w SSI coverage,and home dose insulin bolus w lantus ; A1C 7.3 (14) Discharge planning issues: Status: Acute Assessment and plan: referrals to the [facility] pending PA and discharge in the morning No f/u with [facility] [place] for surgery as per patient Discussed with Dr. Traore Subjective Subjective Patient reports: no new complaints, feels better, tolerating liquids well, tolerating a regular diet, voiding w/o difficulty, flatus and bowel movement; denies diarrhea, nausea, vomiting, shortness of breath or fever Exam Narrative Exam Narrative: Constitutional Right knee with increased range of motion and less pain on flexion and extension; less swelling noted Neuro:alert and oriented X 3, no deficit Resp: clear lung bilaterally Cardio: S1, S2, distant, TEDs in place less LE's edema GI: Abdomen is obese remains not distended, soft and non tender, bowel sounds are present :Chronic griffin in place from 05/20 replaced in ED, no CVA tenderness Skin: no opened wound to exposed skin, sacral mepilex Psych: RASS 0, congruent mood and normal affect. Objective Last Vital Signs Temp 36.5 C 05/29/24 07:15 Pulse 68 05/29/24 07:15 Resp 18 05/29/24 07:15 BP 127/69 05/29/24 07:15 Pulse Ox 96 05/29/24 07:15 Laboratory Results - last 24 hr 05/28/24 05/29/24 10:45 06:12 WBC 4.54 RBC 2.66 L Hgb 7.6 L Hct 25.1 L MCV 94 MCH 28.6 MCHC 30.3 L RDW 15.9 H Plt Count 132 MPV 9.0 Immature Gran % 0.9 Neutrophils % 50.8 Lymphocytes % 31.7 Monocytes % 10.6 Eosinophils % 5.3 Basophils % 0.7 Nucleated RBC % 0.0 Absolute Neutrophils 2.31 Absolute Lymphocytes 1.44 Absolute Monocytes 0.48 Absolute Eosinophils 0.24 Absolute Basophils 0.03 PT 21.8 H INR 2.3 H Sodium 136 Potassium 3.8 Chloride 101 Carbon Dioxide 25.0 Anion Gap 10.0 BUN 61 H Creatinine 4.6 H* Est GFR (CKD-EPI 2020) 11.89 Glucose 121 H Calcium 9.2 Magnesium 2.2 Urine Color Yellow Urine Clarity Cloudy Urine pH 5.5 Ur Specific [place] 1.020 Urine Protein 100 H Urine Ketones Negative Urine Blood Large H Urine Nitrite Negative Urine Bilirubin Negative Urine Urobilinogen 0.2 Ur Leukocyte Esterase Moderate H Urine RBC >50 H Urine WBC >50 H Ur Epithelial Cells Rare Urine Crystals Negative Urine Bacteria Few Urine Casts 0-2 Hyaline Urine Mucus Negative Ur Culture Indicated? Yes Urine Glucose Negative
--- NOTE | 2024-05-29 09:20 | PDOC.CMDIS ---
Date of service: 05/29/24 Time of Service: 09:20 LACE Index Scoring Tool Questions: Length of Stay (in days): 7 - 13 Was the patient admitted via the E.D.?: Yes Comorbidities: Diabetes w/o Complication, Congestive Heart Failure and Liver or Renal Disease E.D. Visits: 2 Answers: Total Score: 15 Risk of Readmission: High Risk Care Management Discharge Plan Reason for Hospitalization: UTI Discharge Plan: Sav is discharged to the [facility] for STR. Pt will follow up with facility/community providers and his discharge plan of care as instructed. He will be transported by [employer] W/C van. Patient/Family Education Needs: Review discharge instructions, limitations, medications and plan for community follow up. Discuss ask me three. Services Needed at Discharge: Jail Facility ([facility]) and Transportation ([facility] W[facility]C van coordinated by CM) SDOH Health Related Social Needs: Health related social needs risk of homeless
--- NOTE | 2024-05-29 09:44 | PT.INNT ---
PT Notes Visit Reasons: UTI, Pyelonephritis Weakness Received message from RN requesting patient be seen [facility] to have ARCADIO Patterson able to see patient mobilize. While speaking with ARCADIO Patterson, Rn reported patient was going to be discharged to the [facility] in ~ 2 hours. Hold PT per her request secondary to pending discharge. Expect discharge to the [facility] in ~2 hours.
--- NOTE | 2024-05-29 10:02 | DSE_ITS ---
Date of service: 05/29/24 Time of Service: 10:03 DS: Diagnosis Discharge Diagnosis (1) Acute UTI: Status: Acute (2) Right knee pain: Status: Acute 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: Status: Acute (4) Loose right total knee arthroplasty: Status: Acute (5) Anemia: Status: Chronic (6) Atrial fibrillation: Status: Chronic 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: Status: Acute (8) Hypomagnesemia: Status: Resolved (9) Elevated troponin: Status: Resolved (10) Deficit in activities of daily living (ADL): Status: Acute (11) Palliative care patient: Status: Acute (12) Contraindication to deep vein thrombosis (DVT) prophylaxis: Status: Acute (13) Diabetes mellitus: Status: Chronic (14) Discharge planning issues: Status: Acute Discharge Plan Disposition [facility] Disposition[facility] Condition: Poor Discharge Details Reason For Visit: UTI, Pyelonephritis Weakness Admit Date/Time: 05/20/24 15:18 Admit Provider: Song Donovan Attending Provider: Song Donovan Primary Care Provider: Gordo Dominguez Hospital Course Hospital Course: History of Present Illness: Patient presented to [facility] ED via EMS on 05/20/2024. Reported using a walker and experiencing knee weakness, leading to a fall. Cloudy urine noted by spouse. Initial workup confirmed UTI with positive leuk esterase in urine. Past Medical History: * Chronic kidney disease (Cr 4.5, CrCl ~19 mL/min) * Heart failure with preserved ejection fraction (HFpEF), LVEF 55% * Obesity * Chronic indwelling urinary catheter (changed 05/20/2024) * Atrial fibrillation on Coumadin * Obstructive sleep apnea * Diabetes * Hyperlipidemia * Chronic anemia (hemoglobins in the 7?s during hospitalization) Hospital Course: * Started on cefepime, changed to ceftriaxone for UTI for a total of 9 days for sensitive serratia marcescens and enterobacter cloacae * UA repeatedon 05/28 showing moderate leukocyte esterase, culture pending with priliminary showing yeast -will discharge on 3 more days of cefpodoxime and fluconazole with a UA follow-up as well as urology follow-up. * Laboratory findings: Hemoglobin 8.0 g/dL, hematocrit 25.6%, BUN 43 mg/dL, creatinine 4.8 mg/dL, GFR 11.30 mL/min. * Elevated troponin levels with no symptoms of acute coronary syndrome, ischemic demand. * Renal ultrasound showed bilateral renal cysts, intra-renal calculi, and a cystic finding in left kidney's superior pole suggestive of possible neoplasm. * Urine cultures positive for Serratia marcescens and Enterobacter cloacae complex, both sensitive to ceftriaxone. * Urology consultation for chronic indwelling urinary catheter management, discussed clean intermittent catheterization, patient unable to perform. Continue indwelling urinary catheter. * Orthopedic consultation for knee pain management, diagnosed loose tibial and likely patellar knee prosthesis components. Not a surgical candidate. A hinged knee brace for support is recommended. Knee aspiration was performed and is negatvie for bacteria. * Palliative care consultation completed. * Physical therapy attempted without success; recommend SNF for mobility, strength and balance progression. Medications on Discharge: Adjusted per renal function and comorbidities. Patient was started on Tramadol for knee pain with good relief. Diclofenac gel was applied to knee. Follow-up: Outpatient follow-up arranged with urology, orthopedics and cardiology. Discharge Disposition: Discharged to [facility] for ongoing care. Instructions: Emphasized close monitoring of renal function and management of comorbid conditions. Home Meds and New Rx's Prescriptions: New aspirin 81 mg Tablet,Delayed Release (Dr/Ec) 81 mg PO DAILY Qty: 10 0RF diclofenac sodium 3 % Gel 100 g topical QID Qty: 0 0RF tramadol 50 mg Tablet 25 mg PO Q12H PRN PRNQty: 0 0RF lidocaine 5 % Adhesive Patch,Medicated 2 patch topical Q24H Qty: 0 0RF fluconazole 200 mg tablet 200 mg PO DAILY Qty: 14 0RF Bio-K plus 50 billion cell capsule,delayed release(DR/EC) 1 cap PO DAILY Qty: 14 0RF cefpodoxime 200 mg tablet 200 mg PO DAILY Qty: 3 0RF Rx Instructions: must administer with a meal/food Continued multivitamin [Daily Multiple] 1 EACH tablet 1 ea PO DAILY (DME) blood-glucose meter [Moodyouch Ultra2 Meter] 1 EACH kit 1 ea Miscellaneous DAILY Qty: 1 (DME) lancets [OneTouch UltraSoft Lancets] misc 1 ea Miscellaneous DAILY Qty: 90 4RF Rx Instructions: test daily before breakfast melatonin 5 mg capsule 5 mg PO HS (DME) OneTouch Ultra Test Strip 1 ea Miscellaneous DAILY Qty: 90 3RF Rx Instructions: test daily before breakfast lidocaine HCl [Glydo] 2 % jelly in applicator 10 ml intra-urethral ONCE Qty: 120 0RF Rx Instructions: as a single dose - one dose per catheter change. lactulose 10 gram packet 10 g PO DAILY PRN (Reason: constipation) Qty: 30 1RF (DME) BIO Wellnessyle Shantell 2 Sensor Kit See Rx Instructions .MEDSUPPLY Qty: 1 11RF Rx Instructions: As directed insulin glargine [Lantus Solostar U-100 Insulin] 100 unit/mL (3 mL) insulin pen 30 unit SUBCUT HS Patient Comments: INJECT 40 UNITS SUBCUTANEOUSLY EVERY EVENING Rx Instructions: Decrease per [facility]. 06/12/23. -hb nitroglycerin 0.4 mg tablet, sublingual 0.4 mg sublingual Q5M PRN (Reason: chest pain) Qty: 25 0RF Rx Instructions: take as needed q 5 mins for c/p until gone if take 3 pills and pain persists, call MD (BIMAL) BIO Wellnessyle Shantell 2 [facility] See Rx Instructions .MEDSUPPLY Qty: 1 0RF Rx Instructions: As directed metolazone 5 mg tablet 5 mg PO .q , Sat PRN (Reason: weight gain 3lbs/day or 7 lbs/week) Qty: 30 2RF tamsulosin 0.4 mg capsule 0.4 mg PO HS Qty: 90 3RF triamcinolone acetonide 0.1 % cream 1 applic topical BID Qty: 30 1RF finasteride 5 mg tablet 5 mg PO DAILY Qty: 90 3RF warfarin 2.5 mg tablet 2.5 mg PO DAILY Qty: 90 3RF Protocol: Dose Management Condition: Saturday Dose/Route: 0 mg Instruction: 0 tablets Condition: Saturday Dose/Route: 2.5 mg Instruction: 1 x 2.5 mg tablet Condition: Saturday Dose/Route: 1.25 mg Instruction: 0.5 x 2.5 mg tablets Condition: Saturday Dose/Route: 2.5 mg Instruction: 1 x 2.5 mg tablet Condition: Dose/Route: 1.25 mg Instruction: 0.5 x 2.5 mg tablets Condition: Saturday Dose/Route: 1.25 mg Instruction: 0.5 x 2.5 mg tablets Condition: Saturday Dose/Route: 2.5 mg Instruction: 1 x 2.5 mg tablet Protocol Text: Adjustment Start Date: Saturday05/12/24 INR Value: 1.8 INR Date: 05/12/24 Recheck Date: 05/26/24 Rx Instructions: Take daily as directed by [facility] (DME) pen needle, diabetic [Comfort EZ Pen [place]] 33 gauge x 3/16 needle See Rx Instructions .ROUTE .MEDSUPPLY Qty: 400 3RF Rx Instructions: inject 4 x/day metoprolol succinate [Toprol XL] 100 mg tablet extended release 24 hr 25 mg PO BID Qty: 45 3RF Rx Instructions: 07/03/[address] Dominguez. -hb torsemide 20 mg tablet 40 mg PO DAILY Qty: 180 3RF pravastatin 40 mg tablet 40 mg PO QPM Qty: 90 3RF gabapentin 100 mg capsule 200 mg PO HS Qty: 180 3RF acetaminophen [Tylenol] 325 mg Tablet 650 mg PO Q4H PRN PRNQty: 0 0RF insulin aspart U-100 [Novolog FlexPen U-100 Insulin] 100 unit/mL (3 mL) insulin pen 20 sliding scale dose SUBCUT DIRECTED Patient Comments: INJECT 30 UNITS SUBCUTANEOUSLY BEFORE MEALS Rx Instructions: -No rapid acting insulin with breakfast or lunch. -20 units + SSI 2:50>150 with dinner. polyethylene glycol 3350 17 gram Powder In Packet 17 g PO DAILY Qty: 0 0RF warfarin [Jantoven] 5 mg tablet See Rx Instructions .ROUTE .COMPLEX Protocol: Dose Management Condition: Saturday Dose/Route: 0 mg Instruction: 0 tablets Condition: Saturday Dose/Route: 2.5 mg Instruction: 1 x 2.5 mg tablet Condition: Saturday Dose/Route: 1.25 mg Instruction: 0.5 x 2.5 mg tablets Condition: Saturday Dose/Route: 2.5 mg Instruction: 1 x 2.5 mg tablet Condition: Dose/Route: 1.25 mg Instruction: 0.5 x 2.5 mg tablets Condition: Saturday Dose/Route: 1.25 mg Instruction: 0.5 x 2.5 mg tablets Condition: Saturday Dose/Route: 2.5 mg Instruction: 1 x 2.5 mg tablet Protocol Text: Adjustment Start Date: Saturday05/12/24 INR Value: 1.8 INR Date: 05/12/24 Recheck Date: 05/26/24 Rx Instructions: Take 2.5mg on Saturday, Saturday & Saturday. Take 1.25mg on Saturday Discharge Instructions Referrals: ORTHOPAEDICS,[facility] [OTHER] - (Right knee arthroplasty and CT scan showing a small fracture about the distal?medial aspect of the medial femur; more of an avulsion type injury likely from the fall as per in house orthopedics notes. Referral sent) Naveen Santos MD [ [facility] STAFF PHYSICIAN] - (F/u within 7 days, UTI SERRATIA MARCESCENS/ENTEROBACTER CLOACAE COMPLEX treated with ceftriaxone then cefpodoxime on d/c , then grew yeast on fluconazole but chronic griffin) Gordo Dominguez MD [Primary Care Provider] - (The patient will be see by the [facility] Doctor till he is discharged and then critical access hospital will take back over care of the patient ) Activity:: Activity as Tolerated Equipment/Supplies:: Blood Glucose Monitor Diet:: Low Sodium Discharge Orders Discharge Orders: Discharge Order (Routine); Ordered 05/29/24 Ordered By: Yesenia Luis Other Ambulatory Orders: Urinalysis (Routine) Timeframe: 20240602 Facility: [facility] - Location: Laboratory Outpatient - [facility] Ordered By: Yesenia Luis Prothrombin Time (Routine) Timeframe: [id number] Facility: [facility] - Location: Laboratory Outpatient - [facility] Ordered By: Yesenia Luis DS: Summary Time Spent with Patient providing and/or coordinating discharge services: Greater than 30 minutes Status at Discharge Functional status at discharge: uses cane/walker Overall status at discharge: patient is progressing back to baseline Mental Status: mental status grossly normal Speech and Movement: speech and movement normal Mood: congruent mood Affect: normal affect Quality:SDOH Health Related Social Needs: Health related social needs risk of homeless Exam Narrative Exam Narrative: Constitutional Right knee with increased range of motion and less pain on flexion and extension; less swelling noted Neuro:alert and oriented X 3, no deficit Resp: clear lung bilaterally Cardio: S1, S2, distant, positive bilateral pedal and radial pulses GI: Abdomen is obese remains not distended, soft and non tender, bowel sounds are present :Chronic griffin in place from 05/20 replaced in ED Skin: no opened wound to exposed skin, sacral mepilex on intergluteal fold d/t erythema-excoration, skin was blancheable Psych: RASS 0, congruent mood and normal affect. Psych Mental Status: mental status grossly normal Speech and Movement: speech and movement normal Mood: congruent mood Affect: normal affect DS: Data Vitals/I&O Vitals and I&O: Vital Signs Temperature 36.5 C 05/29/24 07:15 Temperature Source Tympanic 05/29/24 07:15 Pulse 68 05/29/24 07:15 Pulse Rhythm Irregular 05/29/24 03:32 Pulse 68 05/20/24 16:30 Respiratory Rate 18 05/29/24 07:15 Respiratory Effort Normal 05/29/24 03:32 Respiratory Depth Shallow 05/29/24 03:32 Respiratory Pattern Normal 05/29/24 03:32 Blood Pressure 127/69 05/29/24 07:15 Blood Pressure Mean 62 05/20/24 16:17 Blood Pressure Position Sitting 05/20/24 16:36 Pulse Oximetry 96 05/29/24 07:15 Oxygen Delivery Method Room Air 05/29/24 07:15 Oxygen Flow Rate 0 05/29/24 07:15 Fraction of Inspired Oxygen (FIO2) 21 05/24/24 21:06 Pain Level 0 05/29/24 07:15 Comment call mcneal within reach 05/24/24 08:11 Intake & Output 05/28/24 05/28/24 05/29/24 11:59 23:59 11:59 Intake Total 200 / 490 290 / 490 250 / 250 Output Total 250 / 1900 1650 / 1900 300 / 300 Balance -50 / -1410 -1360 / -1410 -50 / -50 Intake: IV 50 / 50 Oral 200 / 440 240 / 440 250 / 250 Output: Urine 250 / 1900 1650 / 1900 300 / 300 Other: Urine Color Straw Yellow Yellow Urine Appearance Cloudy Cloudy Cloudy Stool Size Moderate Stool Characteristics Soft Brown Data Completed and Pending Labs on day of discharge: Labs from last 24 hours 05/29/24 05/28/24 06:12 10:45 WBC 4.54 RBC 2.66 L Hgb 7.6 L Hct 25.1 L MCV 94 MCH 28.6 MCHC 30.3 L RDW 15.9 H Plt Count 132 MPV 9.0 Immature Gran % 0.9 Neutrophils % 50.8 Lymphocytes % 31.7 Monocytes % 10.6 Eosinophils % 5.3 Basophils % 0.7 Nucleated RBC % 0.0 Absolute Neutrophils 2.31 Absolute Lymphocytes 1.44 Absolute Monocytes 0.48 Absolute Eosinophils 0.24 Absolute Basophils 0.03 PT 21.8 H INR 2.3 H Sodium 136 Potassium 3.8 Chloride 101 Carbon Dioxide 25.0 Anion Gap 10.0 BUN 61 H Creatinine 4.6 H* Est GFR (CKD-EPI 2020) 11.89 Glucose 121 H Calcium 9.2 Magnesium 2.2 Urine Color Yellow Urine Clarity Cloudy Urine pH 5.5 Ur Specific [place] 1.020 Urine Protein 100 H Urine Ketones Negative Urine Blood Large H Urine Nitrite Negative Urine Bilirubin Negative Urine Urobilinogen 0.2 Ur Leukocyte Esterase Moderate H Urine RBC >50 H Urine WBC >50 H Ur Epithelial Cells Rare Urine Crystals Negative Urine Bacteria Few Urine Casts 0-2 Hyaline Urine Mucus Negative Ur Culture Indicated? Yes Urine Glucose Negative 05/28/24 10:45 Urine - Reflex from Urine Culture - Pending Preliminary micro results at discharge 05/28/24 10:45 Urine Culture - Pending Urine - Reflex from Ua 05/23/24 10:50 Body Fluid Culture - Preliminary Synovial - Right Knee PFSH All Active Problems (Updated 05/27/24 @ 12:41 by Lurdes Giordano NP) Discharge planning issues (Acute) CKD (chronic kidney disease) stage 5, GFR 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 (Acute) Periprosthetic fracture around internal prosthetic right knee joint (Acute) Loose right total knee arthroplasty (Acute) Right knee pain (Acute) Contraindication to deep vein thrombosis (DVT) prophylaxis (Acute) Acute UTI (Acute) Dyspnea (Acute) Palliative care patient (Acute) Deficit in activities of daily living (ADL) (Acute) Encounter for hospice care discussion (Acute) Edema (Acute) Cloudy urine (Acute) Lesion of pancreas (Acute) Obstructive uropathy (Acute) 06/12/23 Per [facility]. -hb Need for home health care (Acute) History of fall (Acute) Noninfected skin tear of left lower extremity (Acute) Fall (Acute) Advance care planning (Acute) Skin tear of left lower leg without complication (Acute) Hyperkalemia (Acute) VRE (vancomycin resistant enterococcus) culture positive (Acute) Hydronephrosis, left (Acute) Hyperphosphatemia (Acute) Pressure ulcer of right ischium (Acute) Chronic indwelling Griffin catheter (Acute) Acute renal failure (Acute) Acute UTI (Acute) Diabetes mellitus (Chronic) Atrial fibrillation (Chronic) on coumadin Chronic kidney disease (Chronic) 2020- borderline stage 4 Venous insufficiency (chronic) (peripheral) (Acute) Nail dystrophy (Acute) COVID-19 (Acute ~08/05/22) Thumb pain (Acute) Right heart failure (Acute) Urinary retention (Acute) 11/2021, ultrasound shows significant pretty and post void residual- minimal response to voiding Kidney stones (Chronic) Longstanding history of multiple stones 11/2021 ultrasound showed multiple stones in kidney, 1 stone possibly in right ureter Anemia (Chronic) Chronic mild anemia, associated with CKD Obstructive sleep apnea (Chronic) cpap Acute on chronic heart failure with preserved ejection fraction (Acute) Hives (Acute) Obesity (Acute 02/11/13) Obstructive nephropathy (Acute) Moderate pulmonary arterial systolic hypertension (Chronic) Chronic anticoagulation (Chronic) Polyp of colon (Chronic) Rosacea (Chronic) Constipation (Chronic) CHF (congestive heart failure) (Chronic) Medical History 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 Daughter No problems noted. Social History Smoking/Tobacco Use Status: Never Second Hand Exposure: No Smoking risk assessment performed?: Yes Alcohol Intake: current Alcohol Intake frequency: holidays/special occasions only Drug use: Never Substance use type: does not use Caregiver/Support person: Yes Household members: spouse Housing: house Communication Needs: Hard of Hearing Do you need help understanding health information?: Often Pets and animals: No Sexually active: No What is your relationship status?: How often do you talk on the phone with friends or family?: decline to answer How often do you get together with friends or relatives?: decline to answer How often do you attend islam or gnosticism services?: decline to answer Do you belong to any clubs or organized social groups?: decline to answer Panel score (0-1 are the most socially isolated patients): 1 What type of physical activity do you participate in: walking Duration: < 15 minutes/day Frequency: daily Special amor needs: No Do you feel safe at home: Yes Do you feel safe in your relationship?: Yes Time Spent with Patient Time Spent with Patient: 70-84 minutes4 Time was spent: preparing to see the patient(eg.review tests), obtaining and/or reviewing separately otained hiistory, ordering medications,tests, procedures, referring, communicating with other health manager of care, indepentently interpreting results, counseling the patient and care coordination
[2024-05-29] MEDS: Fluconazole 100 MG TAB 200 MG PO (10:57)
[2024-05-29] MEDS: Cefpodoxime 200 MG TAB PO (10:58)
== END 2024-05-29 12:00 | disposition skilled nursing facility (03) | DRG 690 ==
LOC: ER 14:41 → MS 16:45
PROVIDERS: Family Medicine; Nurse Practitioner Acute Care; Nurse Practitioner Family; Student in an Organized Health Care Education/Training Program; Admitting Provider Family Medicine; Emergency Provider Student in an Organized Health Care Education/Training Program; PCP Family Medicine; Visit Provider Family Medicine
DX: N10 Acute pyelonephritis (principal); S72.434A Nondisplaced fracture of medial condyle of right femur, initial encounter for closed fracture; I50.32 Chronic diastolic (congestive) heart failure; E66.2 Morbid (severe) obesity with alveolar hypoventilation; Z68.41 Body mass index [BMI] 40.0-44.9, adult; N20.1 Calculus of ureter; T84.032A Mechanical loosening of internal right knee prosthetic joint, initial encounter; M97.11XA Periprosthetic fracture around internal prosthetic right knee joint, initial encounter; I13.0 Hypertensive heart and chronic kidney disease with heart failure and stage 1 through stage 4 chronic kidney disease, or unspecified chronic kidney disease; N18.5 Chronic kidney disease, stage 5; M25.561 Pain in right knee; E83.42 Hypomagnesemia; I48.91 Unspecified atrial fibrillation; E11.22 Type 2 diabetes mellitus with diabetic chronic kidney disease; J44.9 Chronic obstructive pulmonary disease, unspecified; Z79.01 Long term (current) use of anticoagulants; R74.8 Abnormal levels of other serum enzymes; L89.319 Pressure ulcer of right buttock, unspecified stage; I87.2 Venous insufficiency (chronic) (peripheral); D63.1 Anemia in chronic kidney disease; I27.20 Pulmonary hypertension, unspecified; K59.09 Other constipation; E78.5 Hyperlipidemia, unspecified; R53.1 Weakness; W18.39XA Other fall on same level, initial encounter; Z79.4 Long term (current) use of insulin; B96.89 Other specified bacterial agents as the cause of diseases classified elsewhere; Z73.6 Limitation of activities due to disability; K21.9 Gastro-esophageal reflux disease without esophagitis; Z66 Do not resuscitate; M25.461 Effusion, right knee
CPT/HCPCS: 20610; 00123; 36415; 51702; 73562; 76770; 80048; 80053; 84145; 86850; 86900; 86901; 87040; 87077; 96374; 97110; 97162; 97530; 99222; 99285; 71045; 73700; 81003; 81015; 82270; 82607; 83036; 83540; 83550; 83605; 83735; 84443; 84484; 85014; 85018; 85025; 85610; 85730; 86140; 87070; 87086; 87186; 87205; 89051; 93306; 99223; 99231; 99232; 99233; 99239; J0692; J0696; J1170; J1756; J1815; J3475; J3490

== ENCOUNTER → 2024-05-22 08:32 | Outpatient (BNVA) | payer MEDICARE, SELFPAY | PROVIDERS: PCP Family Medicine; Referring Provider Family Medicine; Visit Provider Urology ==

== ENCOUNTER 2024-06-01 17:53 | Outpatient (REF) | payer MEDICARE, SELFPAY ==
[2024-06-01 17:42] LABS: Abs Immature Grans 0.03 10^3/uL (0.0-0.06); Absolute Basophil Count 0.03 10^3/uL (0.0-0.2); Absolute Eosinophil Count 0.17 10^3/uL (0.0-0.7); Absolute Lymphocyte Count 1.09 10^3/uL (1.2-3.4); Absolute Monocyte Count 0.43 10^3/uL (0.1-0.8); Absolute Neutrophil Count 3.45 10^3/uL (1.2-6.7); Basophils % 0.6 %; Eosinophils % 3.3 %; HCT 26.7 % (40.0-50.0); HGB 7.9 g/dL (13.5-17.5); Immature Grans % 0.6 %; MCH 28.5 pg (27.0-33.0); MCHC 29.6 % (32.0-36.0); MCV 96 fL (80-95); MPV 9.7 fL (8.0-11.0); Monocytes % 8.3 %; Neutrophils % 66.2 %; Platelet Count 123 10^3/uL (130-400); RBC 2.77 10^6/uL (4.36-5.78); RDW 17.5 % (11.8-14.1); RDW-SD 59.4 fL
[2024-06-01 17:57] LABS: Iron 63 ug/dL (65-175); Total Iron Binding Capacity 317 ug/dL (250-450); Transferrin Sat 20 % (20-55)
[2024-06-01 18:18] LABS: Hemoglobin A1C 6.8 % (<5.7)
[2024-06-01 18:20] LABS: ALT 23 U/L (16-63); AST 35 U/L (15-37); Albumin 2.8 g/dL (3.4-5.0); Alkaline Phosphatase 122 U/L (46-116); Anion Gap 12.6 mmol/L (3-11); BUN 66 mg/dL (7-18); CO2 24.4 mmol/L (21.0-32.0); Chloride 104 mmol/L (98-107); Estimated GFR 13.26 (mL/min/1.73m2); Ferritin 254 ng/mL (26-388); Folate 7.1 ng/mL (8.6-20.0); Glucose 193 mg/dL (74-106); Magnesium 2.2 mg/dL (1.8-2.4); Potassium 4.1 mmol/L (3.5-5.1); Sodium 141 mmol/L (136-145); TSH (W/Ref FT4) 2.99 uIU/mL (0.36-3.74); Total Protein 7.8 g/dL (6.4-8.2); Vitamin B12 463 pg/mL (193-986); Vitamin D 25 Total 64.5 ng/mL (30-100)
[2024-06-01 19:40] LABS: NT-proBNP 5865 pg/mL (<300)
[2024-06-01 19:42] LABS: CREATININE 4.2 mg/dL (0.70-1.30)
== END 2024-06-01 17:54 | disposition home or self-care (01) ==
LOC: LBN 17:53
PROVIDERS: PCP Family Medicine; Visit Provider Nurse Practitioner Gerontology
DX: D52.9 Folate deficiency anemia, unspecified (principal); R73.09 Other abnormal glucose; I11.0 Hypertensive heart disease with heart failure; G89.4 Chronic pain syndrome; D51.9 Vitamin B12 deficiency anemia, unspecified; R53.82 Chronic fatigue, unspecified; E83.42 Hypomagnesemia
CPT/HCPCS: 80053; 82306; 82607; 82728; 82746; 83036; 83540; 83550; 83735; 83880; 84443; 85025

== ENCOUNTER → 2024-06-04 12:17 | Outpatient (BNVA) | payer MEDICARE, SELFPAY | PROVIDERS: PCP Family Medicine; Referring Provider Family Medicine; Visit Provider Urology | DX: R33.8 Other retention of urine (principal) | CPT/HCPCS: 99214 ==

== ENCOUNTER 2024-06-06 13:04 | Emergency (ER) | payer MEDICARE, SELFPAY ==
[2024-06-06 13:08] VITALS: BP 97/56; PULSE 69; RESP 18; TEMP 37.2; O2SAT 96
--- NOTE | 2024-06-06 13:15 | DI.RAD_ITS ---
Exam(s) XR WRIST RT COMPLETE EXAM: XR WRIST RT COMPLETE CLINICAL HISTORY: swelling pain. TECHNIQUE: 2D digital imaging was performed. COMPARISON: CR XR HAND RT COMPLETE from 06/06/2024 FINDINGS: 3 views No evidence of acute fracture nor dislocation. No significant ulnar variance. There are degenerativ e changes in the radiocarpal joint as well as calcification the triangular fibrocartilage on the medi al aspect of the wrist. Mild degenerative changes noted in the 1st carpometacarpal joint. Vascular calcifications noted in both the radial and ulnar arteries. IMPRESSION: Degenerative changes. No obvious acute fractures in the wrist although I note that there is no dedic ated scaphoid-navicular view. If there is pain over the snuffbox than I would recommend this additio nal view. DATA REPOSITORY: RADIATION DOSE DELIVERED:
--- NOTE | 2024-06-06 13:15 | DI.RAD_ITS ---
Exam(s) XR HAND RT COMPLETE EXAM: XR HAND RT COMPLETE CLINICAL HISTORY: swelling pain. TECHNIQUE: 2D digital imaging was performed. COMPARISON: No exams were available for comparison FINDINGS: 3 views Age-related osteopenia noted in the hand and wrist. No obvious acute fractures evident in the hand. Degenerative changes are evident in the metacarpopha langeal joints as well as partial subluxation of the 2nd and 3rd MCP joints. No associated erosions. Moderate degenerative changes are noted in the DIP joints as well as the interphalangeal joint of t he thumb and thumb MCP joint. There is no radiopaque foreign body IMPRESSION: Degenerative changes. No obvious fractures. There is partial subluxation of the metacarpophalangeal joints of the 2nd and 3rd digits. Correlation with site of tenderness recommended. DATA REPOSITORY: RADIATION DOSE DELIVERED:
--- NOTE | 2024-06-06 13:27 | ED.GENADUL_ITS ---
Discharge Plan Disposition Patient Disposition: Home Condition: Stable Discharge Details Clinical Impression: Cellulitis Primary Care Provider: Gordo Dominguez ED Provider: Mor Ceron Home Meds and New Rx's Prescriptions: New clindamycin HCl 300 mg capsule 300 mg PO TID 7 Days Qty: 21 0RF No Action (DME) blood-glucose meter [OneTouch Ultra2 Meter] 1 EACH kit 1 ea Miscellaneous DAILY Qty: 1 (DME) lancets [OneTouch UltraSoft Lancets] misc 1 ea Miscellaneous DAILY Qty: 90 4RF Rx Instructions: test daily before breakfast melatonin 5 mg capsule 5 mg PO HS (DME) OneTouch Ultra Test Strip 1 ea Miscellaneous DAILY Qty: 90 3RF Rx Instructions: test daily before breakfast lidocaine HCl [Glydo] 2 % jelly in applicator 10 ml intra-urethral ONCE Qty: 120 0RF Rx Instructions: as a single dose - one dose per catheter change. lactulose 10 gram packet 10 g PO DAILY PRN (Reason: constipation) Qty: 30 1RF (DME) FreeStyle Shantell 2 Sensor Kit See Rx Instructions .MEDSUPPLY Qty: 1 11RF Rx Instructions: As directed insulin glargine [Lantus Solostar U-100 Insulin] 100 unit/mL (3 mL) insulin pen 30 unit SUBCUT HS Patient Comments: INJECT 40 UNITS SUBCUTANEOUSLY EVERY EVENING Rx Instructions: Decrease per [facility]. 06/12/23. -hb nitroglycerin 0.4 mg tablet, sublingual 0.4 mg sublingual Q5M PRN (Reason: chest pain) Qty: 25 0RF Rx Instructions: take as needed q 5 mins for c/p until gone if take 3 pills and pain persists, call MD (DME) FreeStyle Shantell 2 [place] Misc See Rx Instructions .MEDSUPPLY Qty: 1 0RF Rx Instructions: As directed metolazone 5 mg tablet 5 mg PO .q Thurs, Mon PRN (Reason: weight gain 3lbs/day or 7 lbs/week) Qty: 30 2RF tamsulosin 0.4 mg capsule 0.4 mg PO HS Qty: 90 3RF triamcinolone acetonide 0.1 % cream 1 applic topical BID Qty: 30 1RF finasteride 5 mg tablet 5 mg PO DAILY Qty: 90 3RF warfarin 2.5 mg tablet 2.5 mg PO DAILY Qty: 90 3RF Protocol: Dose Management Condition: Saturday Dose/Route: 0 mg Instruction: 0 tablets Condition: Saturday Dose/Route: 2.5 mg Instruction: 1 x 2.5 mg tablet Condition: Saturday Dose/Route: 1.25 mg Instruction: 0.5 x 2.5 mg tablets Condition: Saturday Dose/Route: 2.5 mg Instruction: 1 x 2.5 mg tablet Condition: Dose/Route: 1.25 mg Instruction: 0.5 x 2.5 mg tablets Condition: Saturday Dose/Route: 1.25 mg Instruction: 0.5 x 2.5 mg tablets Condition: Saturday Dose/Route: 2.5 mg Instruction: 1 x 2.5 mg tablet Protocol Text: Adjustment Start Date: Saturday05/12/24 INR Value: 1.8 INR Date: 05/12/24 Recheck Date: 05/26/24 Rx Instructions: Take daily as directed by [facility] [place] pen needle, diabetic [Comfort EZ Pen Chaplin] 33 gauge x 3/16 needle See Rx Instructions .ROUTE .MEDSUPPLY Qty: 400 3RF Rx Instructions: inject 4 x/day metoprolol succinate [Toprol XL] 100 mg tablet extended release 24 hr 25 mg PO BID Qty: 45 3RF Rx Instructions: 07/03/[address] Dominguez. -hb torsemide 20 mg tablet 40 mg PO DAILY Qty: 180 3RF pravastatin 40 mg tablet 40 mg PO QPM Qty: 90 3RF gabapentin 100 mg capsule 200 mg PO HS Qty: 180 3RF acetaminophen [Tylenol] 325 mg Tablet 650 mg PO Q4H PRN PRNQty: 0 0RF insulin aspart U-100 [Novolog FlexPen U-100 Insulin] 100 unit/mL (3 mL) insulin pen 20 sliding scale dose SUBCUT DIRECTED Patient Comments: INJECT 30 UNITS SUBCUTANEOUSLY BEFORE MEALS Rx Instructions: -No rapid acting insulin with breakfast or lunch. -20 units + SSI 2:50>150 with dinner. polyethylene glycol 3350 17 gram Powder In Packet 17 g PO DAILY Qty: 0 0RF warfarin [Jantoven] 5 mg tablet See Rx Instructions .ROUTE .COMPLEX Protocol: Dose Management Condition: Saturday Dose/Route: 0 mg Instruction: 0 tablets Condition: Saturday Dose/Route: 2.5 mg Instruction: 1 x 2.5 mg tablet Condition: Saturday Dose/Route: 1.25 mg Instruction: 0.5 x 2.5 mg tablets Condition: Saturday Dose/Route: 2.5 mg Instruction: 1 x 2.5 mg tablet Condition: Dose/Route: 1.25 mg Instruction: 0.5 x 2.5 mg tablets Condition: Saturday Dose/Route: 1.25 mg Instruction: 0.5 x 2.5 mg tablets Condition: Saturday Dose/Route: 2.5 mg Instruction: 1 x 2.5 mg tablet Protocol Text: Adjustment Start Date: Saturday05/12/24 INR Value: 1.8 INR Date: 05/12/24 Recheck Date: 05/26/24 Rx Instructions: Take 2.5mg on Saturday, Saturday & Saturday. Take 1.25mg on Saturday fluconazole 200 mg tablet 100 mg PO DAILY Daily Multivitamin with Iron 18-400 mg-mcg tablet 1 tab PO DAILY aspirin 81 mg Tablet,Delayed Release (Dr/Ec) 81 mg PO DAILY Qty: 10 0RF diclofenac sodium 3 % Gel 100 g topical QID Qty: 0 0RF tramadol 50 mg Tablet 25 mg PO Q12H PRN PRNQty: 0 0RF lidocaine 5 % Adhesive Patch,Medicated 2 patch topical Q24H Qty: 0 0RF Bio-K plus 50 billion cell capsule,delayed release(DR/EC) 1 cap PO DAILY Qty: 14 0RF Discharge Instructions Instructions: Phlebitis (DC), Cellulitis (Skin Infection), Adult ED Additional Instructions: Please return to the emergency department for any worsening symptoms HPI General Date/Time Provider Initiated Documentation: 06/06/24 13:15 . HPI Narrative: 83-year-old male recent hospitalization with multiple IV attempts in his right upper extremity presents with painful swelling to right hand and wrist warm to the touch referred in from the [facility] for evaluation of possible cellulitis Related Data Home Medications ?Medication ?Instructions ?Recorded ?Confirmed blood-glucose meter (BromiumTouch ##1 02/12/17 05/20/24 Ultra2 Meter kit) lancets (BromiumTouch UltraSoft #90 ea 11/06/18 05/20/24 Lancets) acetaminophen 325 mg tablet 650 mg (2 x 325 mg) PO Q4H PRN PRN 04/20/19 06/06/24 (Tylenol) #0 tabs melatonin 5 mg capsule 5 mg PO HS 04/10/22 06/06/24 blood sugar diagnostic (OneTouch #90 strips 05/17/22 05/20/24 Ultra Test strips) lidocaine HCl 2 % mucosal jelly in 10 ml intra-urethral ONCE #120 mL 10/31/22 06/06/24 applicator (Glydo) lactulose 10 gram oral packet 10 g PO DAILY PRN constipation #30 11/05/22 06/06/24 ea flash glucose sensor (FreeStyle #1 ea 01/07/23 05/20/24 Shantell 2 Sensor kit) insulin aspart U-100 100 unit/mL 20 sliding scale dose subcut 03/27/23 06/06/24 (3 mL) subcutaneous pen (Novolog DIRECTED FlexPen U-100 Insulin aspart) polyethylene glycol 3350 17 gram 17 g PO DAILY #0 ea 04/09/23 06/06/24 oral powder packet warfarin 5 mg tablet (Jantoven) See Rx Instructions .Route .COMPLEX 06/06/23 06/06/24 insulin glargine 100 unit/mL (3 30 unit subcut HS 06/14/23 06/06/24 mL) subcutaneous pen (Lantus Solostar U-100 Insulin) nitroglycerin 0.4 mg sublingual 0.4 mg sublingual Q5M PRN chest 07/31/23 06/06/24 tablet pain #25 tabs flash glucose scanning reader #1 ea 09/11/23 05/20/24 (FreeStyle Shantell 2 [place]) metolazone 5 mg tablet 5 mg PO .q Thurs, Mon PRN weight 09/30/23 06/06/24 gain 3lbs/day or 7 lbs/week #30 tabs tamsulosin 0.4 mg capsule 0.4 mg PO HS #90 caps 10/08/23 06/06/24 triamcinolone acetonide 0.1 % 1 applic topical BID ear eczema 11/13/23 06/06/24 topical cream #30 grams finasteride 5 mg tablet 5 mg PO DAILY #90 tabs 12/23/23 06/06/24 warfarin 2.5 mg tablet 2.5 mg PO DAILY #90 tabs 12/23/23 06/06/24 pen needle, diabetic 33 gauge x #400 ea 01/31/24 05/20/2416 (Comfort EZ Pen Chaplin) metoprolol succinate 100 mg 25 mg (1/4 x 100 mg) PO BID #45 02/25/24 06/06/24 tablet,extended release 24 hr tabs (Toprol XL) torsemide 20 mg tablet 40 mg (2 x 20 mg) PO DAILY #180 04/09/24 06/06/24 tabs pravastatin 40 mg tablet 40 mg PO QPM #90 tabs 04/15/24 06/06/24 gabapentin 100 mg capsule 200 mg (2 x 100 mg) PO HS #180 caps 04/22/24 06/06/24 aspirin 81 mg tablet,delayed 81 mg PO DAILY #10 tabs 05/27/24 06/06/24 release diclofenac sodium 3 % topical gel 100 g topical QID #0 grams 05/27/24 06/06/24 lidocaine 5 % topical patch 2 patch topical Q24H #0 ea 05/27/24 06/06/24 tramadol 50 mg tablet 25 mg (1/2 x 50 mg) PO Q12H PRN 05/27/24 06/06/24 PRN #0 tabs L. acidophilus,casei,rhamnosus 50 1 cap PO DAILY #14 caps 05/29/24 06/06/24 billion cell capsule,delayed release (Bio-K plus) clindamycin HCl 300 mg capsule 300 mg PO TID 7 days #21 caps 06/06/24 fluconazole 200 mg tablet 100 mg PO DAILY 06/06/24 06/06/24 multivitamin-ferrous 1 tab PO DAILY 06/06/24 06/06/24 fumarate-folic acid 18 mg-400 mcg tablet (Daily Multivitamin with Iron) Previous Rx's ?Medication ?Instructions ?Recorded lancets (BromiumTouch UltraSoft #90 ea 11/06/18 Lancets) acetaminophen 325 mg tablet 650 mg (2 x 325 mg) PO Q4H PRN PRN 04/20/19 (Tylenol) #0 tabs blood sugar diagnostic (BromiumTouch #90 strips 05/17/22 Ultra Test strips) lidocaine HCl 2 % mucosal jelly in 10 ml intra-urethral ONCE #120 mL 10/31/22 applicator (Glydo) lactulose 10 gram oral packet 10 g PO DAILY PRN constipation #30 11/05/22 ea flash glucose sensor (FreeStyle #1 ea 01/07/23 Shantell 2 Sensor kit) polyethylene glycol 3350 17 gram 17 g PO DAILY #0 ea 04/09/23 oral powder packet nitroglycerin 0.4 mg sublingual 0.4 mg sublingual Q5M PRN chest 07/31/23 tablet pain #25 tabs flash glucose scanning reader #1 ea 09/11/23 (FreeStyle Shantell 2 [place]) metolazone 5 mg tablet 5 mg PO .q Thurs, Mon PRN weight 09/30/23 gain 3lbs/day or 7 lbs/week #30 tabs tamsulosin 0.4 mg capsule 0.4 mg PO HS #90 caps 10/08/23 triamcinolone acetonide 0.1 % 1 applic topical BID ear eczema 11/13/23 topical cream #30 grams finasteride 5 mg tablet 5 mg PO DAILY #90 tabs 12/23/23 warfarin 2.5 mg tablet 2.5 mg PO DAILY #90 tabs 12/23/23 pen needle, diabetic 33 gauge x #400 ea 01/31/2401/31 (Comfort EZ Pen Chaplin) metoprolol succinate 100 mg 25 mg (1/4 x 100 mg) PO BID #45 02/25/24 tablet,extended release 24 hr tabs (Toprol XL) torsemide 20 mg tablet 40 mg (2 x 20 mg) PO DAILY #180 04/09/24 tabs pravastatin 40 mg tablet 40 mg PO QPM #90 tabs 04/15/24 gabapentin 100 mg capsule 200 mg (2 x 100 mg) PO HS #180 caps 04/22/24 aspirin 81 mg tablet,delayed 81 mg PO DAILY #10 tabs 05/27/24 release diclofenac sodium 3 % topical gel 100 g topical QID #0 grams 05/27/24 lidocaine 5 % topical patch 2 patch topical Q24H #0 ea 05/27/24 tramadol 50 mg tablet 25 mg (1/2 x 50 mg) PO Q12H PRN 05/27/24 PRN #0 tabs L. acidophilus,casei,rhamnosus 50 1 cap PO DAILY #14 caps 05/29/24 billion cell capsule,delayed release (Bio-K plus) clindamycin HCl 300 mg capsule 300 mg PO TID 7 days #21 caps 06/06/24 Allergies Allergy/AdvReac Type Severity Reaction Status Date / Time No Known Allergies Allergy Verified 06/06/24 13:06 General Stated Complaint: Cellulitis GISSEL: 3 Exam Narrative Exam Narrative: Right upper extremity: Area of warmth and ecchymosis to dorsal aspect of right hand at base of first digit and extending onto dorsum of hand, tender to the touch warm to the touch without crepitus or fluctuance, full flexion extension in all fingers, capillary refill intact sensation median radial and ulnar nerve distribution intact, radial pulse intact no swelling to wrist forearm or upper arm Patient alert interactive no acute distress speaking in full sentences neurologically intact Course Vital Signs Vital signs: Vital Signs Temperature 37.2 C 06/06/24 13:08 Pulse 69 06/06/24 13:08 Respiratory Rate 18 06/06/24 13:08 Blood Pressure 97/56 L 06/06/24 13:08 Pulse Oximetry 96 06/06/24 13:08 Temperature 37.2 C 06/06/24 13:08 Temperature Source Oral 06/06/24 13:08 Pulse 69 06/06/24 13:08 Respiratory Rate 18 06/06/24 13:08 Blood Pressure 97/56 L 06/06/24 13:08 Blood Pressure Position Sitting 06/06/24 13:08 Pulse Oximetry 96 06/06/24 13:08 Oxygen Delivery Method Room Air 06/06/24 13:08 Oxygen Flow Rate 0 06/06/24 13:08 Medical Decision Making 83-year-old male presents referred in from [facility] for evaluation of possible cellulitis of right hand, had recent admission with multiple IV sticks and right upper extremity, Right upper extremity: Area of warmth and ecchymosis to dorsal aspect of right hand at base of first digit and extending onto dorsum of hand, tender to the touch warm to the touch without crepitus or fluctuance, full flexion extension in all fingers, capillary refill intact sensation median radial and ulnar nerve distribution intact, radial pulse intact no swelling to wrist forearm or upper arm; consider localized cellulitis versus thrombophlebitis lower suspicion for retained foreign body lower suspicion for fracture or dislocation, will obtain screening x-ray, will provide analgesia anti-inflammatory in the form of acetaminophen and ibuprofen, will cover empi rically with clindamycin given recent hospitalization and localized erythema and warmth, lower suspicion for extensive thrombophlebitis or DVT of upper extremity patient is also on Coumadin, likely home with close follow-up will continue with antibiotics as an outpatient. No systemic signs of illness such as tachycardia or fever 14: 33 patient resting comfortably no acute distress. X-ray showing degenerative changes of hand and wrist, no fracture or dislocation. Treating empirically for cellulitis however may be component of phlebitis given home care instructions and return precautions. Quality:SDOH Health Related Social Needs: Health related social needs risk of homeless PFSH All Active Problems (Updated 06/06/24 @ 14:34 by Mor Ceron MD) Cellulitis (Acute) Periprosthetic fracture around internal prosthetic right knee joint (Acute) Loose right total knee arthroplasty (Acute) Right knee pain (Acute) Acute UTI (Acute) Edema (Acute) Cloudy urine (Acute) Lesion of pancreas (Acute) Obstructive uropathy (Acute) 06/12/23 Per [facility]. -hb Need for home health care (Acute) History of fall (Acute) Noninfected skin tear of left lower extremity (Acute) Fall (Acute) Skin tear of left lower leg without complication (Acute) Hyperkalemia (Acute) VRE (vancomycin resistant enterococcus) culture positive (Acute) Hydronephrosis, left (Acute) Hyperphosphatemia (Acute) Pressure ulcer of right ischium (Acute) Chronic indwelling Knox catheter (Acute) Acute renal failure (Acute) Acute UTI (Acute) Chronic kidney disease (Chronic) 2020- borderline stage 4 Venous insufficiency (chronic) (peripheral) (Acute) Nail dystrophy (Acute) COVID-19 (Acute ~08/05/22) Thumb pain (Acute) Right heart failure (Acute) Urinary retention (Acute) 11/2021, ultrasound shows significant pretty and post void residual- minimal response to voiding Anemia (Chronic) Chronic mild anemia, associated with CKD Obstructive sleep apnea (Chronic) cpap Acute on chronic heart failure with preserved ejection fraction (Acute) Hives (Acute) Obesity (Acute 02/11/13) Obstructive nephropathy (Acute) Moderate pulmonary arterial systolic hypertension (Chronic) Chronic anticoagulation (Chronic) Polyp of colon (Chronic) Rosacea (Chronic) Constipation (Chronic) Medical History 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 Daughter No problems noted. Social History Smoking/Tobacco Use Status: Never Second Hand Exposure: No Smoking risk assessment performed?: Yes Alcohol Intake: current Alcohol Intake frequency: holidays/special occasions only Drug use: Never Substance use type: does not use Caregiver/Support person: Yes Household members: spouse Housing: house Communication Needs: Hard of Hearing Do you need help understanding health information?: Often Pets and animals: No Sexually active: No What is your relationship status?: How often do you talk on the phone with friends or family?: decline to answer How often do you get together with friends or relatives?: decline to answer How often do you attend anabaptism or taoist services?: decline to answer Do you belong to any clubs or organized social groups?: decline to answer Panel score (0-1 are the most socially isolated patients): 1 What type of physical activity do you participate in: walking Duration: < 15 minutes/day Frequency: daily Special amor needs: No Do you feel safe at home: Yes Do you feel safe in your relationship?: Yes
[2024-06-06] MEDS: Acetaminophen 325 MG TAB 650 MG PO (14:28)
[2024-06-06] MEDS: Clindamycin 150 MG CAP 450 MG PO (14:28)
[2024-06-06] MEDS: Ibuprofen 600 MG TAB PO (14:28)
[2024-06-06 14:43] VITALS: BP 97/56; PULSE 69; RESP 18; TEMP 37.2; O2SAT 96
== END 2024-06-06 14:44 | disposition home or self-care (01) ==
PROVIDERS: Emergency Provider Emergency Medicine; PCP Family Medicine
DX: M79.641 Pain in right hand (principal); M25.531 Pain in right wrist; R22.31 Localized swelling, mass and lump, right upper limb; L03.113 Cellulitis of right upper limb
CPT/HCPCS: 99284; 73110; 73130; 99283

== ENCOUNTER 2024-06-08 18:45 | Outpatient (REF) | payer MEDICARE, SELFPAY ==
[2024-06-08 18:44] LABS: Abs Immature Grans 0.02 10^3/uL (0.0-0.06); Absolute Basophil Count 0.02 10^3/uL (0.0-0.2); Absolute Eosinophil Count 0.16 10^3/uL (0.0-0.7); Absolute Lymphocyte Count 0.95 10^3/uL (1.2-3.4); Absolute Monocyte Count 0.67 10^3/uL (0.1-0.8); Basophils % 0.3 %; Eosinophils % 2.7 %; HCT 25.9 % (40.0-50.0); Immature Grans % 0.3 %; MCH 29.1 pg (27.0-33.0); MCHC 30.9 % (32.0-36.0); MCV 94 fL (80-95); Monocytes % 11.3 %; Neutrophils % 69.4 %; Platelet Count 125 10^3/uL (130-400); RBC 2.75 10^6/uL (4.36-5.78); RDW 16.7 % (11.8-14.1); RDW-SD 57.3 fL; WBC 5.92 10^3/uL (4.4-10.8)
[2024-06-08 19:23] LABS: Albumin 2.5 g/dL (3.4-5.0); Anion Gap 16.3 mmol/L (3-11); CO2 25.7 mmol/L (21.0-32.0); Calcium 9.7 mg/dL (8.5-10.1); Chloride 95 mmol/L (98-107); Estimated GFR 11.02 (mL/min/1.73m2); Glucose 199 mg/dL (74-106); NT-proBNP 4419 pg/mL (<300); PHOSPHORUS 6.6 mg/dL (2.6-4.7); Potassium 3.7 mmol/L (3.5-5.1); Sodium 137 mmol/L (136-145)
[2024-06-08 20:50] LABS: BUN 97 mg/dL (7-18); CREATININE 4.9 mg/dL (0.70-1.30)
== END 2024-06-08 18:46 | disposition home or self-care (01) ==
LOC: LBN 18:45
PROVIDERS: PCP Family Medicine; Visit Provider Nurse Practitioner Gerontology
DX: I11.0 Hypertensive heart disease with heart failure (principal); R73.09 Other abnormal glucose; D52.9 Folate deficiency anemia, unspecified; R53.82 Chronic fatigue, unspecified; E83.42 Hypomagnesemia
CPT/HCPCS: 80069; 83880; 85025

== ENCOUNTER 2024-06-15 18:16 | Outpatient (REF) | payer MEDICARE, SELFPAY ==
[2024-06-15 18:08] LABS: INR 1.2 (0.9-1.1); PTT Activated 31.1 sec (23.6-32.8); Prothrombin Time 12.1 sec (9.1-11.1)
== END 2024-06-15 18:17 | disposition home or self-care (01) ==
LOC: LBN 18:16
PROVIDERS: PCP Family Medicine; Visit Provider Nurse Practitioner Gerontology
DX: I48.91 Unspecified atrial fibrillation (principal); Z79.01 Long term (current) use of anticoagulants
CPT/HCPCS: 85610; 85730

== ENCOUNTER 2024-07-07 11:17 | Inpatient (IN) | payer MEDICARE, SELFPAY ==
[2024-07-07] VITALS (69 sets, daily range): BP systolic 90–107; BP diastolic 49–69; PULSE 63–93; RESP 9–27; TEMP 36–37; O2SAT 88–98
--- NOTE | 2024-07-07 11:30 | DI.RAD_ITS ---
Exam(s) XR PORTABLE CHEST AP EXAM: XR PORTABLE CHEST AP CLINICAL HISTORY: relative hypoxia TECHNIQUE: 2D digital imaging was performed. COMPARISON: No exams were available for comparison FINDINGS: Exam limited by under penetration at the lung bases, particularly on the left. Infiltrate and small effusion not excluded. LUNGS: Clear. No pleural abnormality seen. HEART: Normal size. AORTA: Normal diameter. BONES: Severe degenerative changes the right shoulder. Spine mostly obscured. Soft tissues: Unremarkable. IMPRESSION: Limited exam. No acute findings. DATA REPOSITORY: RADIATION DOSE DELIVERED:
--- NOTE | 2024-07-07 11:45 | DI.CT_ITS ---
Exam(s) CT HEAD WO EXAM: CT HEAD WO CLINICAL HISTORY: ams on AC. TECHNIQUE: Imaging Protocol: Axial computed tomography images with coronal and sagittal reformatted images were created and reviewed COMPARISON: CT CT HEAD WO from 12/31/2022 FINDINGS: Ventricles and Extra axial spaces: Normal in size and morphology for the patient's age. Hemorrhage: None. Cerebral parenchyma: Atrophy. White matter changes consistent with small vessel disease. Old right basal ganglia lacunar infarct. Midline shift: None. Brainstem/Cerebellum: Normal. Calvarium: Normal. Visualized Paranasal sinuses/Mastoids: Complete opacification of the left maxillary sinus again with some expansion into the nasal cavity. Opacification of multiple left ethmoid sinuses. Mild mucosal thickening left sphenoid and right ethmoid sinuses. Mastoid air cells are clear. IMPRESSION: No acute abnormality. Severe chronic left-sided sinus disease. RADIATION DOSE DELIVERED: Total DLP Total DLP DATA REPOSITORY: All CT scans at this facility are submitted to the National Radiology Data Registry (NRDR) Dose Index Registry (DIR) with the [employer] (A[employer]). RADIATION OPTIMIZATION: All CT scans at this facility use at least one of these dose optimization te chniques: automated exposure control; mA and/or kV adjustment per patient size (includes targeted exa ms where dose is matched to clinical indication); or iterative reconstruction.
--- NOTE | 2024-07-07 11:47 | W.ED.GENAD ---
Discharge Plan Disposition Patient Disposition: Admit to [facility] Condition: Stable Discharge Details Chief Complaint: Urinary Clinical Impression: KENNETH (acute kidney injury), Acute UTI, Acute hyperkalemia Primary Care Provider: Gordo Dominguez ED Provider: Mor Ceron Home Meds and New Rx's Prescriptions: No Action morphine concentrate 100 mg/5 mL (20 mg/mL) solution 5 - 20 mg PO Q4H MDD 480 PRN (Reason: pain) Qty: 30 0RF (DME) blood-glucose meter [OneTouch Ultra2 Meter] 1 EACH kit 1 ea Miscellaneous DAILY Qty: 1 (DME) lancets [OneTouch UltraSoft Lancets] misc 1 ea Miscellaneous DAILY Qty: 90 4RF Rx Instructions: test daily before breakfast melatonin 5 mg capsule 5 mg PO HS (DME) OneTouch Ultra Test Strip 1 ea Miscellaneous DAILY Qty: 90 3RF Rx Instructions: test daily before breakfast lidocaine HCl [Glydo] 2 % jelly in applicator 10 ml intra-urethral ONCE Qty: 120 0RF Rx Instructions: as a single dose - one dose per catheter change. lactulose 10 gram packet 10 g PO DAILY PRN (Reason: constipation) Qty: 30 1RF (DME) FreeStyle [place] 2 Sensor Kit See Rx Instructions .MEDSUPPLY Qty: 1 11RF Rx Instructions: As directed insulin glargine [Lantus Solostar U-100 Insulin] 100 unit/mL (3 mL) insulin pen 30 unit SUBCUT HS Patient Comments: INJECT 40 UNITS SUBCUTANEOUSLY EVERY EVENING Rx Instructions: Decrease per [facility] [place] 06/12/23. -hb nitroglycerin 0.4 mg tablet, sublingual 0.4 mg sublingual Q5M PRN (Reason: chest pain) Qty: 25 0RF Rx Instructions: take as needed q 5 mins for c/p until gone if take 3 pills and pain persists, call (BIMAL) FreeStyle Shantell 2 [place] Misc See Rx Instructions .MEDSUPPLY Qty: 1 0RF Rx Instructions: As directed metolazone 5 mg tablet 5 mg PO .q Thurs, Mon PRN (Reason: weight gain 3lbs/day or 7 lbs/week) Qty: 30 2RF tamsulosin 0.4 mg capsule 0.4 mg PO HS Qty: 90 3RF triamcinolone acetonide 0.1 % cream 1 applic topical BID Qty: 30 1RF finasteride 5 mg tablet 5 mg PO DAILY Qty: 90 3RF warfarin 2.5 mg tablet 2.5 mg PO DAILY Qty: 90 3RF Protocol: Dose Management Condition: Saturday Dose/Route: 0 mg Instruction: 0 tablets Condition: Saturday Dose/Route: 2.5 mg Instruction: 1 x 2.5 mg tablet Condition: Saturday Dose/Route: 1.25 mg Instruction: 0.5 x 2.5 mg tablets Condition: Saturday Dose/Route: 2.5 mg Instruction: 1 x 2.5 mg tablet Condition: Dose/Route: 1.25 mg Instruction: 0.5 x 2.5 mg tablets Condition: Saturday Dose/Route: 1.25 mg Instruction: 0.5 x 2.5 mg tablets Condition: Saturday Dose/Route: 2.5 mg Instruction: 1 x 2.5 mg tablet Protocol Text: Adjustment Start Date: Saturday05/12/24 INR Value: 1.8 INR Date: 05/12/24 Recheck Date: 05/26/24 Rx Instructions: Take daily as directed by [facility] (DME) pen needle, diabetic [Comfort EZ Pen Powderly] 33 gauge x 3/16 needle See Rx Instructions .ROUTE .MEDSUPPLY Qty: 400 3RF Rx Instructions: inject 4 x/day metoprolol succinate [Toprol XL] 100 mg tablet extended release 24 hr 25 mg PO BID Qty: 45 3RF Rx Instructions: 07/03/[address] Dominguez. -hb pravastatin 40 mg tablet 40 mg PO QPM Qty: 90 3RF gabapentin 100 mg capsule 200 mg PO HS Qty: 180 3RF pantoprazole 40 mg tablet,delayed release (DR/EC) 40 mg PO DAILY torsemide 20 mg tablet 20 mg PO BID tamsulosin 0.4 mg capsule 0.4 mg PO DAILY Eliquis 2.5 mg tablet 2.5 mg PO BID Qty: 14 0RF acetaminophen [Tylenol] 325 mg Tablet 650 mg PO Q4H PRN PRNQty: 0 0RF insulin aspart U-100 [Novolog FlexPen U-100 Insulin] 100 unit/mL (3 mL) insulin pen 20 sliding scale dose SUBCUT DIRECTED Patient Comments: INJECT 30 UNITS SUBCUTANEOUSLY BEFORE MEALS Rx Instructions: -No rapid acting insulin with breakfast or lunch. -20 units + SSI 2:50>150 with dinner. polyethylene glycol 3350 17 gram Powder In Packet 17 g PO DAILY Qty: 0 0RF warfarin [Jantoven] 5 mg tablet See Rx Instructions .ROUTE .COMPLEX Protocol: Dose Management Condition: Saturday Dose/Route: 0 mg Instruction: 0 tablets Condition: Saturday Dose/Route: 2.5 mg Instruction: 1 x 2.5 mg tablet Condition: Saturday Dose/Route: 1.25 mg Instruction: 0.5 x 2.5 mg tablets Condition: Saturday Dose/Route: 2.5 mg Instruction: 1 x 2.5 mg tablet Condition: Dose/Route: 1.25 mg Instruction: 0.5 x 2.5 mg tablets Condition: Saturday Dose/Route: 1.25 mg Instruction: 0.5 x 2.5 mg tablets Condition: Saturday Dose/Route: 2.5 mg Instruction: 1 x 2.5 mg tablet Protocol Text: Adjustment Start Date: Saturday05/12/24 INR Value: 1.8 INR Date: 05/12/24 Recheck Date: 05/26/24 Rx Instructions: Take 2.5mg on Saturday, Saturday & Saturday. Take 1.25mg on Saturday fluconazole 200 mg tablet 100 mg PO DAILY Daily Multivitamin with Iron 18-400 mg-mcg tablet 1 tab PO DAILY aspirin 81 mg Tablet,Delayed Release (Dr/Ec) 81 mg PO DAILY Qty: 10 0RF diclofenac sodium 3 % Gel 100 g topical QID Qty: 0 0RF tramadol 50 mg Tablet 25 mg PO Q12H PRN PRNQty: 0 0RF lidocaine 5 % Adhesive Patch,Medicated 2 patch topical Q24H Qty: 0 0RF Bio-K plus 50 billion cell capsule,delayed release(DR/EC) 1 cap PO DAILY Qty: 14 0RF HPI General Date/Time Provider Initiated Documentation: 07/07/24 11:20. HPI Narrative: 83-year-old male recent stay at the [facility], currently at home, concern for altered mental status concerned that he may have a UTI noted cloudy dark urine in Knox bag. Patient alert interactive has no complaints denies headache chest pain shortness of breath nausea or vomiting. Patient is thirsty and would like a drink of water Related Data Home Medications ?Medication ?Instructions ?Recorded ?Confirmed blood-glucose meter (OneTouch ##1 02/12/17 07/01/24 Ultra2 Meter kit) lancets (OneTouch UltraSoft #90 ea 11/06/18 07/01/24 Lancets) acetaminophen 325 mg tablet 650 mg (2 x 325 mg) PO Q4H PRN PRN 04/20/19 07/01/24 (Tylenol) #0 tabs melatonin 5 mg capsule 5 mg PO HS 04/10/22 07/01/24 blood sugar diagnostic (OneTouch #90 strips 05/17/22 07/01/24 Ultra Test strips) lidocaine HCl 2 % mucosal jelly in 10 ml intra-urethral ONCE #120 mL 10/31/22 07/01/24 applicator (Glydo) lactulose 10 gram oral packet 10 g PO DAILY PRN constipation #30 11/05/22 07/01/24 ea flash glucose sensor (FreeStyle #1 ea 01/07/23 07/01/24 Shantell 2 Sensor kit) insulin aspart U-100 100 unit/mL 20 sliding scale dose subcut 03/27/23 07/01/24 (3 mL) subcutaneous pen (Novolog DIRECTED FlexPen U-100 Insulin aspart) polyethylene glycol 3350 17 gram 17 g PO DAILY #0 ea 04/09/23 07/01/24 oral powder packet warfarin 5 mg tablet (Jantoven) See Rx Instructions .Route .COMPLEX 06/06/23 07/01/24 insulin glargine 100 unit/mL (3 30 unit subcut HS 06/14/23 07/01/24 mL) subcutaneous pen (Lantus Solostar U-100 Insulin) nitroglycerin 0.4 mg sublingual 0.4 mg sublingual Q5M PRN chest 07/31/23 07/01/24 tablet pain #25 tabs flash glucose scanning reader #1 ea 09/11/23 07/01/24 (FreeStyle Shantell 2 [place]) metolazone 5 mg tablet 5 mg PO .q Thurs, Mon PRN weight 09/30/23 07/01/24 gain 3lbs/day or 7 lbs/week #30 tabs tamsulosin 0.4 mg capsule 0.4 mg PO HS #90 caps 10/08/23 07/01/24 triamcinolone acetonide 0.1 % 1 applic topical BID ear eczema 11/13/23 07/01/24 topical cream #30 grams finasteride 5 mg tablet 5 mg PO DAILY #90 tabs 12/23/23 07/01/24 warfarin 2.5 mg tablet 2.5 mg PO DAILY #90 tabs 12/23/23 07/01/24 pen needle, diabetic 33 gauge x #400 ea 01/31/24 07/01/24/16 (Comfort EZ Pen Powderly) metoprolol succinate 100 mg 25 mg (1/4 x 100 mg) PO BID #45 02/25/24 07/01/24 tablet,extended release 24 hr tabs (Toprol XL) pravastatin 40 mg tablet 40 mg PO QPM #90 tabs 04/15/24 07/01/24 gabapentin 100 mg capsule 200 mg (2 x 100 mg) PO HS #180 caps 04/22/24 07/01/24 aspirin 81 mg tablet,delayed 81 mg PO DAILY #10 tabs 05/27/24 07/01/24 release diclofenac sodium 3 % topical gel 100 g topical QID #0 grams 05/27/24 07/01/24 lidocaine 5 % topical patch 2 patch topical Q24H #0 ea 05/27/24 07/01/24 tramadol 50 mg tablet 25 mg (1/2 x 50 mg) PO Q12H PRN 05/27/24 07/01/24 PRN #0 tabs L. acidophilus,casei,rhamnosus 50 1 cap PO DAILY #14 caps 05/29/24 07/01/24 billion cell capsule,delayed release (Bio-K plus) fluconazole 200 mg tablet 100 mg PO DAILY 06/06/24 07/01/24 multivitamin-ferrous 1 tab PO DAILY 06/06/24 07/01/24 fumarate-folic acid 18 mg-400 mcg tablet (Daily Multivitamin with Iron) pantoprazole 40 mg tablet,delayed 40 mg PO DAILY 06/25/24 07/01/24 release tamsulosin 0.4 mg capsule 0.4 mg PO DAILY 06/25/24 07/01/24 torsemide 20 mg tablet 20 mg PO BID 06/25/24 07/01/24 morphine concentrate 100 mg/5 mL 5 - 20 mg (0.25 - 1 mL) PO Q4H PRN 07/01/24 07/01/24 (20 mg/mL) oral solution pain #30 mL apixaban 2.5 mg tablet (Eliquis) 2.5 mg PO BID #14 tabs 07/06/24 Previous Rx's ?Medication ?Instructions ?Recorded lancets (ResponseTap (formerly AdInsight)Touch UltraSoft #90 ea 11/06/18 Lancets) acetaminophen 325 mg tablet 650 mg (2 x 325 mg) PO Q4H PRN PRN 04/20/19 (Tylenol) #0 tabs blood sugar diagnostic (OneTouch #90 strips 05/17/22 Ultra Test strips) lidocaine HCl 2 % mucosal jelly in 10 ml intra-urethral ONCE #120 mL 10/31/22 applicator (Glydo) lactulose 10 gram oral packet 10 g PO DAILY PRN constipation #30 11/05/22 ea flash glucose sensor (FreeStyle #1 ea 01/07/23 Shantell 2 Sensor kit) polyethylene glycol 3350 17 gram 17 g PO DAILY #0 ea 04/09/23 oral powder packet nitroglycerin 0.4 mg sublingual 0.4 mg sublingual Q5M PRN chest 07/31/23 tablet pain #25 tabs flash glucose scanning reader #1 ea 09/11/23 (FreeStyle Sh[place]ell 2 [place]) metolazone 5 mg tablet 5 mg PO .q , Sat PRN weight 09/30/23 gain 3lbs/day or 7 lbs/week #30 tabs tamsulosin 0.4 mg capsule 0.4 mg PO HS #90 caps 10/08/23 triamcinolone acetonide 0.1 % 1 applic topical BID ear eczema 11/13/23 topical cream #30 grams finasteride 5 mg tablet 5 mg PO DAILY #90 tabs 12/23/23 warfarin 2.5 mg tablet 2.5 mg PO DAILY #90 tabs 12/23/23 pen needle, diabetic 33 gauge x #400 ea 01/31/2401/31 (Comfort EZ Pen Powderly) metoprolol succinate 100 mg 25 mg (1/4 x 100 mg) PO BID #45 02/25/24 tablet,extended release 24 hr tabs (Toprol XL) pravastatin 40 mg tablet 40 mg PO QPM #90 tabs 04/15/24 gabapentin 100 mg capsule 200 mg (2 x 100 mg) PO HS #180 caps 04/22/24 aspirin 81 mg tablet,delayed 81 mg PO DAILY #10 tabs 05/27/24 release diclofenac sodium 3 % topical gel 100 g topical QID #0 grams 05/27/24 lidocaine 5 % topical patch 2 patch topical Q24H #0 ea 05/27/24 tramadol 50 mg tablet 25 mg (1/2 x 50 mg) PO Q12H PRN 05/27/24 PRN #0 tabs L. acidophilus,casei,rhamnosus 50 1 cap PO DAILY #14 caps 05/29/24 billion cell capsule,delayed release (Bio-K plus) morphine concentrate 100 mg/5 mL 5 - 20 mg (0.25 - 1 mL) PO Q4H PRN 07/01/24 (20 mg/mL) oral solution pain #30 mL apixaban 2.5 mg tablet (Eliquis) 2.5 mg PO BID #14 tabs 07/06/24 Allergies Allergy/AdvReac Type Severity Reaction Status Date / Time No Known Allergies Allergy Verified 07/07/24 11:27 General Stated Complaint: Urinary GISSEL: 3 Exam Narrative Exam Narrative: Alert interactive Dry oral mucosa Lungs clear bilaterally no wheezes rales or rhonchi speaking full sentences no tachypnea no retractions Warm well-perfused extremities Abdomen soft nontender nondistended Cloudy sediment. Urine in Knox catheter bag Moving all extremities without deficit following commands normal speech no ataxia Course Vital Signs Vital signs: Vital Signs Temperature 37.0 C 07/07/24 11:31 Pulse 80 07/07/24 11:31 Respiratory Rate 18 07/07/24 11:31 Blood Pressure 99/59 L 07/07/24 11:31 Pulse Oximetry 95 07/07/24 11:31 Temperature 37.0 C 07/07/24 11:31 Temperature Source Temporal Artery Scan 07/07/24 11:31 Pulse 80 07/07/24 11:31 Respiratory Rate 18 07/07/24 11:31 Respiratory Effort Normal, Non-Labored 07/07/24 11:34 Blood Pressure 99/59 L 07/07/24 11:31 Blood Pressure Position Supine 07/07/24 11:31 Pulse Oximetry 95 07/07/24 11:31 Oxygen Delivery Method Room Air 07/07/24 11:31 Oxygen Flow Rate 0 07/07/24 11:31 Pain Level 0 07/07/24 11:31 Medical Decision Making 83-year-old male recent stay at the [facility], currently at home, concern for altered mental status concerned that he may have a UTI noted cloudy dark urine in Knox bag. Patient alert interactive has no complaints denies headache chest pain shortness of breath nausea or vomiting. Patient is thirsty and would like a drink of water; patient appears dry with dry oral mucosa, sedimentary cloudy urine in Knox bag, alert moving all extremities following commands no deficits, afebrile nontoxic relatively soft BP on arrival consider hypovolemia versus UTI versus viral illness muscles consider pneumonia versus electrolyte derangement lower suspicion for ACS PE aortic pathology lower suspicion for CVA or intracranial hemorrhage given nonfocal examination, no trauma; will obtain basic labs imaging close reassessment after light fluids given patient has history of CHF Evidence of UTI initiating ceftriaxone, patient was found to have worsening CKD and hyperkalemia. Clinically appears improved after light fluid, ceftriaxone, calcium gluconate, dextrose and insulin however hyperkalemia and creatinine are not improving patient will need admission however we do not have dialysis capabilities here at [facility], I have expressed to patient and family that I may need to transfer him they are currently discussing whether they are comfortable with transfer 16: 44 discussed findings and plan with family, patient does not wish to pursue dialysis, patient does not wish to pursue transfer, goals of care have been discussed and patient is DNR/DNI, they are amenable to medical management of the hyperkalemia and infection as well as other medical conditions without invasive procedures. 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 -hb Need for home health care (Acute) History of fall (Acute) Noninfected skin tear of left lower extremity (Acute) Fall (Acute) Skin tear of left lower leg without complication (Acute) Hyperkalemia (Acute) VRE (vancomycin resistant enterococcus) culture positive (Acute) Hydronephrosis, left (Acute) Hyperphosphatemia (Acute) Pressure ulcer of right ischium (Acute) Chronic indwelling Knox catheter (Acute) Acute renal failure (Acute) Acute UTI (Acute) Chronic kidney disease (Chronic) 2020- borderline stage 4 Venous insufficiency (chronic) (peripheral) (Acute) Nail dystrophy (Acute) COVID-19 (Acute ~08/05/22) Thumb pain (Acute) Right heart failure (Acute) Urinary retention (Acute) 11/2021, ultrasound shows significant pretty and post void residual- minimal response to voiding Anemia (Chronic) Chronic mild anemia, associated with CKD Obstructive sleep apnea (Chronic) cpap Acute on chronic heart failure with preserved ejection fraction (Acute) Hives (Acute) Obesity (Acute 02/11/13) Obstructive nephropathy (Acute) Moderate pulmonary arterial systolic hypertension (Chronic) Chronic anticoagulation (Chronic) Polyp of colon (Chronic) Rosacea (Chronic) Constipation (Chronic) Medical History CKD (chronic kidney disease) stage 5, GFR 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 Deficit in activities of daily living (ADL) Kidney stones Longstanding history of multiple stones 11/2021 ultrasound showed multiple stones in kidney, 1 stone possibly in right ureter Atrial fibrillation on coumadin Diabetes mellitus CHF (congestive heart failure) 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 Daughter No problems noted. Social History Smoking/Tobacco Use Status: Never Second Hand Exposure: No Smoking risk assessment performed?: Yes Alcohol Intake: current Alcohol Intake frequency: holidays/special occasions only Drug use: Never Substance use type: does not use Caregiver/Support person: Yes Household members: spouse Housing: house Communication Needs: Hard of Hearing Do you need help understanding health information?: Often Pets and animals: No Sexually active: No What is your relationship status?: How often do you talk on the phone with friends or family?: decline to answer How often do you get together with friends or relatives?: decline to answer How often do you attend mosque or restoration services?: decline to answer Do you belong to any clubs or organized social groups?: decline to answer Panel score (0-1 are the most socially isolated patients): 1 What type of physical activity do you participate in: walking Duration: < 15 minutes/day Frequency: daily Special amor needs: No Do you feel safe at home: Yes Do you feel safe in your relationship?: Yes
[2024-07-07 12:15] LABS: Abs Immature Grans 0.02 10^3/uL (0.0-0.06); Absolute Basophil Count 0.04 10^3/uL (0.0-0.2); Absolute Monocyte Count 0.67 10^3/uL (0.1-0.8); Absolute Neutrophil Count 2.61 10^3/uL (1.2-6.7); Basophils % 0.8 %; Eosinophils % 4.1 %; HCT 28.8 % (40.0-50.0); HGB 8.5 g/dL (13.5-17.5); Immature Grans % 0.4 %; Lymphocytes % 26.9 %; MCH 29.2 pg (27.0-33.0); MCHC 29.5 % (32.0-36.0); MCV 99 fL (80-95); MPV 10.2 fL (8.0-11.0); Monocytes % 13.8 %; Platelet Count 156 10^3/uL (130-400); RBC 2.91 10^6/uL (4.36-5.78); RDW 16.5 % (11.8-14.1); RDW-SD 60.4 fL; WBC 4.84 10^3/uL (4.4-10.8)
[2024-07-07] MEDS: Normal Saline 500 ML 1000 ML IV (12:22)
[2024-07-07 12:38] LABS: ALT 15 U/L (16-63); AST 22 U/L (15-37); Albumin 2.5 g/dL (3.4-5.0); Alkaline Phosphatase 143 U/L (46-116); BUN 54 mg/dL (7-18); Bilirubin, Total 0.73 mg/dL (0.2-1.0); Calcium 9.7 mg/dL (8.5-10.1); Chloride 102 mmol/L (98-107); Estimated GFR 10.03 (mL/min/1.73m2); Glucose 152 mg/dL (74-106); Potassium 5.8 mmol/L (3.5-5.1); Sodium 136 mmol/L (136-145); Total Protein 8.3 g/dL (6.4-8.2)
[2024-07-07 12:42] LABS: CREATININE 5.3 mg/dL (0.70-1.30)
--- NOTE | 2024-07-07 13:00 | RT.EKG_ITS ---
APPROVED REPORT Exam: Resting ECG Reason for Exam: hyperkalemia Patient Location: E HR:83 bpm ECG Measurements Heart Rate [address] [place] [place] [id number] P [id number] QRSd 83 QRS 39 QT 380 T 23 QTc 446 Conclusion Atrial fibrillation...? atrial activity Low voltage, extremity and precordial leads...extremity<0.5mV, precordial<1.0mV narrow complex, irregular rhythm, consider afib rate controlled
[2024-07-07 13:08] LABS: Bilirubin Negative (Negative); Blood Large (Negative); Clarity Cloudy (Clear); Glucose Negative (Negative); Ketones Negative (Negative); Leukocyte Esterase Large (Negative); Nitrite Negative (Negative); Urobilinogen 0.2 mg/dL (Up to 0.2); pH 6.5 (5-8)
[2024-07-07 13:18] LABS: Bacteria Moderate HPF (Negative); C & S Indicated? Yes; Casts Negative LPF (Negative); Crystals Negative HPF (Negative); Epithelial Cells Rare HPF (Negative); Mucus Negative (Negative); Other Cells Negative (Negative); RBC >50 HPF (0-2); WBC >50 HPF (0-5)
[2024-07-07 13:21] LABS: COVID-19 PCR Negative (Negative); Influenza A PCR Negative (Negative); Influenza B PCR Negative (Negative); RSV PCR Negative (Negative)
[2024-07-07] MEDS: CALCIUM GLUCONATE in NaCl 1 GM/50 ML BAG IVPB (13:38)
[2024-07-07] MEDS: Albuterol 2.5 MG/3 ML INH SOLN VIAL UPD (14:03)
[2024-07-07] MEDS: Insulin REGULAR-Human 100 UNITS/ML UNIT SC (14:03)
[2024-07-07] MEDS: Dextrose 25%-Water 10 ML SYR IVP (14:03)
[2024-07-07] MEDS: DEXTROSE 10%-WATER 500 ML 30 ML IV (14:09)
[2024-07-07] MEDS: cefTRIAXone 1 GM/50 ML BAG IVPB (14:57)
[2024-07-07 16:00] LABS: Anion Gap 6.9 mmol/L (3-11); BUN 56 mg/dL (7-18); CO2 26.1 mmol/L (21.0-32.0); Calcium 9.5 mg/dL (8.5-10.1); Chloride 104 mmol/L (98-107); Estimated GFR 10.26 (mL/min/1.73m2); Glucose 151 mg/dL (74-106); Potassium 5.6 mmol/L (3.5-5.1); Sodium 137 mmol/L (136-145)
[2024-07-07 16:19] LABS: CREATININE 5.2 mg/dL (0.70-1.30)
--- NOTE | 2024-07-07 17:47 | W.PM.HP.N ---
Date of service: 07/07/24 Time of Service: 17:47 Assessment and Plan Assessment and plan (1) Acute UTI: Status: Acute Assessment and plan: recurrent UTI in setting of patient w/ chronic obstructive lower urinary tract symptoms and has been requiring chronic indwelling griffin, he has hx of prior pyelonephritis altough he has no flank pain, nevertheless should have imaging of his kidneys and bladder done. In light of his CKD, will obtain renal US in the morning. continue w/ Ceftriaxone 1 gm IV daily and will modify based on culture results. Prior cultures from May included yeast and Enterobacter cloacae, and Serratia marsescens (both which were sensitive to Ceftriaxone). (2) Acute hyperkalemia: Status: Acute Assessment and plan: unclear as to why his K moreno from 3.7 one month ago to 5.8 other than his worsening renal failure. He is not on an MIS I nor on an ARB nor on spironolactone for his CHF. EKG demosntrated atrial fibrillation at controlled rate of 83 bpm and diffusely small voltage across all leads, no peaked T waves. I am not going to give any further calcium gluconate nor iv insulin. However he would benefit from Lokelma. I will also give additional 500 mL of NS and hold his diuretics for now. He needs his home meds clarified, unfortunately his had left and was not available at the time I saw the patient. I will ask pharmacy to try to reconcile his home meds. I will also discuss w/ his in the morning. (3) KENNETH (acute kidney injury): Status: Acute Assessment and plan: BUN is not really over his baseline however his creatinine is higher than his baseline. this is probably d/t poor oral intake and continued use of diuretics. I have put his diuretics on hold for now, ordered another 500 mL NS bolus over next 5 hr, will repeat his BMP in the morning and obtain renal US. I have asked nursing to change out his griffin for new one. (4) Obstructive uropathy: Status: Chronic Assessment and plan: patient continues to need griffin catheter for ongoing post bladder obstruction from BPH. (5) CKD (chronic kidney disease) stage 5, GFR 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: (6) Atrial fibrillation: Assessment and plan: rate seems controlled it appears that he was on low dose Toprol XL at home however his medications were not confirmed by the ED staff and his has gone home. I will ask [facility] telepharmacy to reconcile otherwise I will review w/ his or his PCP office in the morning. There are two different anticoagulants listed: apixaban and warfarin. For now will just give heparin prophylaxis. Qualifiers: Atrial fibrillation type: unspecified chronic Qualified Code(s): I48.20 - Chronic atrial fibrillation, unspecified (7) CHF (congestive heart failure): Assessment and plan: reportedly has HFPEF, last echo done 05/22/24 and demonstrated preserved LVEF 55% w/ no RWMA however poor endocardial definition so could not determine w/ certaintly. Normal size LV and normal size and systolic fxn to his RV, he has mild aortic stenosis and mild MR and trace TR. I think he his being over diuresed givne his worsening renal fxn. Hold diuretics for now, give judicious amount of iv fluids. If needed can repeat his echo but perform PLR VTI, measure his MV inflow pressures and measure right sided pressures. Also could do VEXUS study. Qualifiers: Heart failure type: diastolic Heart failure chronicity: chronic Qualified Code(s): I50.32 - Chronic diastolic (congestive) heart failure (8) LUCAS on CPAP: Assessment and plan: continue home CPAP/BIPAP (9) Diabetes mellitus type 2 in obese: (10) BPH (benign prostatic hyperplasia): Assessment and plan: continue griffin however needs changed out in setting of recurrent UTI. Qualifiers: Lower urinary tract symptom presence: symptoms present Lower urinary tract symptom detail: urinary retention Qualified Code(s): N40.1 - Benign prostatic hyperplasia with lower urinary tract symptoms; R33.8 - Other retention of urine (11) GERD (gastroesophageal reflux disease): Assessment and plan: continue PPI Qualifiers: Esophagitis presence: esophagitis presence not specified Qualified Code(s): K21.9 - Gastro-esophageal reflux disease without esophagitis (12) DVT prophylaxis: Status: Acute Assessment and plan: will place on heparin SC pending reconciliation of his home anticoagulants History of Present Illness History of Present Illness Chief Complaint: concerned for UTI Narrative: 83-year-old gentleman lives at home with his after recent stay at a half-way facility, [facility] after being treated for complicated UTI secondary to chronic Griffin placement for urinary retention his comorbidities include obstructive sleep apnea, atrial fibrillation, chronic kidney disease stage V, followed by [facility] investigative reporter Dr. 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 Patient was brought in by ambulance from home out of his 's concern that he was developing another UTI as he was acting more confused, having dark robles colored urine that was cloudy. In the ED he was found to have KENNETH in setting of CKD along w/ evidence of recurrent UTI and hyperkalemia. Labs demonstrated BUN 56 and creatinine 5.3. The BUN is about his recent baseline of 55 to 60 however his creatinine was slightly higher than his baseline of 4.2 to 4.6. His K+ WAS ELEATED AT 5.8. He was given iv fluid bolus of NS x 500 mL and given Insulin 5 units IV along w/ dextrose and calcium gluconate w/ repeat K+ OF 5.6. He was also given Ceftriaxone 1 gm IVPB for his UTI (UA was abnormal w/ cloudy uirne SG 1.020, 100 mg/dL proteine, large amount of blood and large leukocyte esterase, > 50 RBC/HPF, moderate bacteria and negative casts and rare epithelial cell. Urine culture was sent. I was asked by the ED provider to admit the patient for his UTI and hyperkalemia. I recommended starting the patient on Lokelma while he was in the ED awaiting the opening of a bed. Lokelma will be started on arrival and repeat labs will be done in the morning. His diuretics will be put on hold and he will be given additional fluid bolus of NS. His home medications have not been reconciled and there are discrepancies in his home meds including both apixaban and warfarin listed as an anticoagulant for his afib. Review of Systems Constitutional Constitutional: Reports fatigue, Denies fever(s), Reports lethargy and Reports weakness Cardiovascular Cardiovascular: Reports system reviewed and no additional complaints, except as documented Respiratory Respiratory: Reports system reviewed and no additional complaints, except as documented Gastrointestinal Gastrointestinal: Reports system reviewed and no additional complaints, except as documented, Denies abdominal pain, Denies melena and Denies nausea Genitourinary Genitourinary: Reports as per HPI Musculoskeletal Musculoskeletal: Reports system reviewed and no additional complaints, except as documented Integumentary/Breasts Skin/Breast: Reports system reviewed and no additional complaints, except as documented Neurologic Neurologic: Reports system reviewed and no additional complaints, except as documented and Reports weakness Endocrine Endocrine: Reports system reviewed and no additional complaints, except as documented and Reports fatigue Hematologic/Lymphatic Hematologic/Lymphatic: Reports system reviewed and no additional complaints, except as documented PFSH All Active Problems (Updated 07/07/24 @ 21:34 by Robert Traore MD) DVT prophylaxis (Acute) Acute hyperkalemia (Acute) Acute UTI (Acute) KENNETH (acute kidney injury) (Acute) Pain (Acute) Periprosthetic fracture around internal prosthetic right knee joint (Acute) Loose right total knee arthroplasty (Acute) Right knee pain (Acute) Acute UTI (Acute) Edema (Acute) Cloudy urine (Acute) Lesion of pancreas (Acute) Obstructive uropathy (Chronic) 06/12/23 Per [facility]. -hb Need for home health care (Acute) History of fall (Acute) Noninfected skin tear of left lower extremity (Acute) Fall (Acute) Skin tear of left lower leg without complication (Acute) Hyperkalemia (Acute) VRE (vancomycin resistant enterococcus) culture positive (Acute) Hydronephrosis, left (Acute) Hyperphosphatemia (Acute) Pressure ulcer of right ischium (Acute) Chronic indwelling Griffin catheter (Acute) Acute renal failure (Acute) Acute UTI (Acute) Chronic kidney disease (Chronic) 2020- borderline stage 4 Venous insufficiency (chronic) (peripheral) (Acute) Nail dystrophy (Acute) COVID-19 (Acute ~08/05/22) Thumb pain (Acute) Right heart failure (Acute) Urinary retention (Acute) 11/2021, ultrasound shows significant pretty and post void residual- minimal response to voiding Anemia (Chronic) Chronic mild anemia, associated with CKD Obstructive sleep apnea (Chronic) cpap Acute on chronic heart failure with preserved ejection fraction (Acute) Hives (Acute) Obesity (Acute 02/11/13) Obstructive nephropathy (Acute) Moderate pulmonary arterial systolic hypertension (Chronic) Chronic anticoagulation (Chronic) Polyp of colon (Chronic) Rosacea (Chronic) Constipation (Chronic) Medical History CKD (chronic kidney disease) stage 5, GFR 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 Deficit in activities of daily living (ADL) Kidney stones Longstanding history of multiple stones 11/2021 ultrasound showed multiple stones in kidney, 1 stone possibly in right ureter Atrial fibrillation on coumadin Diabetes mellitus CHF (congestive heart failure) 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 Daughter No problems noted. Social History Smoking/Tobacco Use Status: Never Second Hand Exposure: No Smoking risk assessment performed?: Yes Alcohol Intake: current Alcohol Intake frequency: holidays/special occasions only Drug use: Never Substance use type: does not use Caregiver/Support person: Yes Household members: spouse Housing: house Communication Needs: Hard of Hearing Do you need help understanding health information?: Often Pets and animals: No Sexually active: No What is your relationship status?: How often do you talk on the phone with friends or family?: decline to answer How often do you get together with friends or relatives?: decline to answer How often do you attend yazdanism or evangelical services?: decline to answer Do you belong to any clubs or organized social groups?: decline to answer Panel score (0-1 are the most socially isolated patients): 1 What type of physical activity do you participate in: walking Duration: < 15 minutes/day Frequency: daily Special amor needs: No Do you feel safe at home: Yes Do you feel safe in your relationship?: Yes Meds Allergies and Home Medications Allergies Allergy/AdvReac Type Severity Reaction Status Date / Time No Known Allergies Allergy Verified 07/07/24 11:27 Home Medications ?Medication ?Instructions ?Recorded ?Confirmed ?Type blood-glucose meter ([employer] ##1 02/12/17 07/01/24 History Ultra2 Meter kit) lancets (OneTouch UltraSoft #90 ea 11/06/18 07/01/24 Rx Lancets) acetaminophen 325 mg tablet 650 mg (2 x 325 mg) PO Q4H PRN PRN 04/20/19 07/01/24 Rx (Tylenol) #0 tabs melatonin 5 mg capsule 5 mg PO HS 04/10/22 07/01/24 History blood sugar diagnostic (OneTouch #90 strips 05/17/22 07/01/24 Rx Ultra Test strips) lidocaine HCl 2 % mucosal jelly in 10 ml intra-urethral ONCE #120 mL 10/31/22 07/01/24 Rx applicator (Glydo) lactulose 10 gram oral packet 10 g PO DAILY PRN constipation #30 11/05/22 07/01/24 Rx ea flash glucose sensor (FreeStyle #1 ea 01/07/23 07/01/24 Rx Shantell 2 Sensor kit) insulin aspart U-100 100 unit/mL 20 sliding scale dose subcut 03/27/23 07/01/24 History (3 mL) subcutaneous pen (Novolog DIRECTED FlexPen U-100 Insulin aspart) polyethylene glycol 3350 17 gram 17 g PO DAILY #0 ea 04/09/23 07/01/24 Rx oral powder packet warfarin 5 mg tablet (Jantoven) See Rx Instructions .Route .COMPLEX 06/06/23 07/01/24 History insulin glargine 100 unit/mL (3 30 unit subcut HS 06/14/23 07/01/24 History mL) subcutaneous pen (Lantus Solostar U-100 Insulin) nitroglycerin 0.4 mg sublingual 0.4 mg sublingual Q5M PRN chest 07/31/23 07/01/24 Rx tablet pain #25 tabs flash glucose scanning reader #1 ea 09/11/23 07/01/24 Rx (FreeStyle Shantell 2 [place]) metolazone 5 mg tablet 5 mg PO .q Thurs, Mon PRN weight 09/30/23 07/01/24 Rx gain 3lbs/day or 7 lbs/week #30 tabs tamsulosin 0.4 mg capsule 0.4 mg PO HS #90 caps 10/08/23 07/01/24 Rx triamcinolone acetonide 0.1 % 1 applic topical BID ear eczema 11/13/23 07/01/24 Rx topical cream #30 grams finasteride 5 mg tablet 5 mg PO DAILY #90 tabs 12/23/23 07/01/24 Rx warfarin 2.5 mg tablet 2.5 mg PO DAILY #90 tabs 12/23/23 07/01/24 Rx pen needle, diabetic 33 gauge x #400 ea 01/31/24 07/01/24 Rx 3/16 (Comfort EZ Pen [place]) metoprolol succinate 100 mg 25 mg (1/4 x 100 mg) PO BID #45 02/25/24 07/01/24 Rx tablet,extended release 24 hr tabs (Toprol XL) pravastatin 40 mg tablet 40 mg PO QPM #90 tabs 04/15/24 07/01/24 Rx gabapentin 100 mg capsule 200 mg (2 x 100 mg) PO HS #180 caps 04/22/24 07/01/24 Rx aspirin 81 mg tablet,delayed 81 mg PO DAILY #10 tabs 05/27/24 07/01/24 Rx release diclofenac sodium 3 % topical gel 100 g topical QID #0 grams 05/27/24 07/01/24 Rx lidocaine 5 % topical patch 2 patch topical Q24H #0 ea 05/27/24 07/01/24 Rx tramadol 50 mg tablet 25 mg (1/2 x 50 mg) PO Q12H PRN 05/27/24 07/01/24 Rx PRN #0 tabs L. acidophilus,casei,rhamnosus 50 1 cap PO DAILY #14 caps 05/29/24 07/01/24 Rx billion cell capsule,delayed release (Bio-K plus) fluconazole 200 mg tablet 100 mg PO DAILY 06/06/24 07/01/24 History multivitamin-ferrous 1 tab PO DAILY 06/06/24 07/01/24 History fumarate-folic acid 18 mg-400 mcg tablet (Daily Multivitamin with Iron) pantoprazole 40 mg tablet,delayed 40 mg PO DAILY 06/25/24 07/01/24 History release tamsulosin 0.4 mg capsule 0.4 mg PO DAILY 06/25/24 07/01/24 History torsemide 20 mg tablet 20 mg PO BID 06/25/24 07/01/24 History morphine concentrate 100 mg/5 mL 5 - 20 mg (0.25 - 1 mL) PO Q4H PRN 07/01/24 07/01/24 Rx (20 mg/mL) oral solution pain #30 mL apixaban 2.5 mg tablet (Eliquis) 2.5 mg PO BID #14 tabs 07/06/24 Rx Exam Narrative Exam Narrative: Morbidly obese white male who appears to be in no acute distress he is alert he is oriented to person and place although he is sketchy on details leading up to his hospitalization. HEENT is remarkable for dry mucous membranes. Lower teeth are intact he is missing his upper teeth says he wears upper dentures. I see no exudates in his mouth but his oral mucosa does appear to be dry particularly his tongue Neck is obese there is no overt JVD no HJR normal carotid pulses Lungs are clear anteriorly and posteriorly Heart is irregularly irregular in a controlled rate with a harsh systolic murmur over the apex consistent with MR Abdomen is obese he has a number of superficial abdominal wall varicosities and he has an umbilical hernia that is reducible and nontender. Because of his obese abdomen I could not adequately palpate liver or spleen but did not appreciate any organomegaly nor did I hear any bruits. Lower extremities he has chronic stasis dermatitis skin changes with dark bronze to purplish discoloration to his skin with trace to 1+ pitting edema strong palpable dorsalis pedis pulses griffin catheter w/ grossly purulent opaque matter in his urine Results Labs 07/07/24 12:00 07/07/24 15:42 Labs: Laboratory Results - last 24 hr 07/07/24 07/07/24 07/07/24 12:00 12:01 12:10 WBC 4.84 RBC 2.91 L Hgb 8.5 L Hct 28.8 L MCV 99 H MCH 29.2 MCHC 29.5 L RDW 16.5 H Plt Count 156 MPV 10.2 Immature Gran % 0.4 Neutrophils % 54.0 Lymphocytes % 26.9 Monocytes % 13.8 Eosinophils % 4.1 Basophils % 0.8 Nucleated RBC % 0.0 Absolute Neutrophils 2.61 Absolute Lymphocytes 1.30 Absolute Monocytes 0.67 Absolute Eosinophils 0.20 Absolute Basophils 0.04 Sodium 136 Potassium 5.8 H Chloride 102 Carbon Dioxide 28.0 Anion Gap 6.0 BUN 54 H Creatinine 5.3 H* Est GFR (CKD-EPI 2020) 10.03 Glucose 152 H Calcium 9.7 Total Bilirubin 0.73 AST 22 ALT 15 L Alkaline Phosphatase 143 H Total Protein 8.3 H Albumin 2.5 L Urine Color Yellow Urine Clarity Cloudy Urine pH 6.5 Ur Specific [place] 1.020 Urine Protein 100 H Urine Ketones Negative Urine Blood Large H Urine Nitrite Negative Urine Bilirubin Negative Urine Urobilinogen 0.2 Ur Leukocyte Esterase Large H Urine RBC >50 H Urine WBC >50 H Ur Epithelial Cells Rare Urine Crystals Negative Urine Bacteria Moderate Urine Casts Negative Urine Mucus Negative Urine Other Negative Ur Culture Indicated? Yes Urine Glucose Negative COVID-19 Source Not Applicable SARS-CoV-2 (PCR) Negative Influenza Type A (PCR) Negative Influenza Type B (PCR) Negative RSV (PCR) Negative 07/07/24 15:42 WBC RBC Hgb Hct MCV MCH MCHC RDW Plt Count MPV Immature Gran % Neutrophils % Lymphocytes % Monocytes % Eosinophils % Basophils % Nucleated RBC % Absolute Neutrophils Absolute Lymphocytes Absolute Monocytes Absolute Eosinophils Absolute Basophils Sodium 137 Potassium 5.6 H Chloride 104 Carbon Dioxide 26.1 Anion Gap 6.9 BUN 56 H Creatinine 5.2 H* Est GFR (CKD-EPI 2020) 10.26 Glucose 151 H Calcium 9.5 Total Bilirubin AST ALT Alkaline Phosphatase Total Protein Albumin Urine Color Urine Clarity Urine pH Ur Specific [place] Urine Protein Urine Ketones Urine Blood Urine Nitrite Urine Bilirubin Urine Urobilinogen Ur Leukocyte Esterase Urine RBC Urine WBC Ur Epithelial Cells Urine Crystals Urine Bacteria Urine Casts Urine Mucus Urine Other Ur Culture Indicated? Urine Glucose COVID-19 Source SARS-CoV-2 (PCR) Influenza Type A (PCR) Influenza Type B (PCR) RSV (PCR) Last Vital Signs Temp 37.0 C 07/07/24 11:31 Pulse 80 07/07/24 11:45 Resp 20 07/07/24 16:37 BP 103/67 07/07/24 11:45 Pulse Ox 97 07/07/24 16:02 Time Spent Time spent with Patient: 55-74 minutes Time was spent: preparing to see the patient(eg.review tests), obtaining and/or reviewing separately otained hiistory, ordering medications,tests, procedures, referring, communicating with other health youth care professional, indepentently interpreting results, counseling the patient and care coordination
--- NOTE | 2024-07-07 19:35 | W.PC.ACHO ---
Registration Status: Primary Language: Preferred Language: ED Information & Data Chief Complaint Urinary 07/07/24 11:51 Triage Note pt with recent d[facility]c [facility] 11[facility] [place] to [facility] after stay at [facility] for complicated UTI, chronic griffin, BIBA from home for AMS per concerned for UTI, pt alert and appropriate, following commands, denies pain/SOB/CP , right arm edema/swelling noted, BP slightly soft 99/ 59 but pt was sleeping comfortably, O2 sats mid 90' s, HR 80's, essential tremors noted, griffin with sediment and large output of urine, pt afebrile on monitors, fairly immobile per pt, in depends. 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 Deficit in activities of daily living (ADL) Kidney stones Atrial fibrillation Diabetes mellitus CHF (congestive heart failure) Chondrocalcinosis articularis Arthritis of right shoulder region Arthritis of right wrist Right wrist pain Obesity hypoventilation syndrome Atrial fibrillation Nephrolithiasis BPH (benign prostatic hyperplasia) GERD (gastroesophageal reflux disease) Hyperlipidemia Essential hypertension, benign LUCAS on CPAP Diabetes mellitus type 2 in obese (Last Reviewed 07/01/24 @ 13:30 by Kathy Reeder NP) Replacement of total knee joint Tonsillectomy and adenoidectomy Colonoscopy - MAC (~2002) Cholecystectomy (~1985) Most Recent Vital Signs Temperature 37.0 C 07/07/24 11:31 Temperature Source Temporal Artery Scan 07/07/24 11:31 Pulse 80 07/07/24 11:45 Pulse 71 07/07/24 14:30 Respiratory Rate 20 07/07/24 16:37 Respiratory Effort Normal, Non-Labored 07/07/24 11:34 Blood Pressure 103/67 07/07/24 11:45 Blood Pressure Mean 78 07/07/24 11:45 Blood Pressure Position Supine 07/07/24 11:31 Pulse Oximetry 97 07/07/24 16:02 Oxygen Delivery Method Room Air 07/07/24 11:31 Oxygen Flow Rate 0 07/07/24 11:31 Pain Level 0 07/07/24 11:31 Allergies No Known Allergies Allergy (Verified 07/07/24 11:27) Precautions Isolation Standard precaution 07/07/24 11:34 Active Medications Generic Name Dose Route Start Last Admin Trade Name Jun PRN Reason Stop Dose Admin Dextrose/Water 500 mls @ 30 mls/hr 07/07/24 13:03 07/07/24 14:09 Dextrose 10%-Water IV 07/08/24 05:42 30 mls/hr INFUSION STA Administration IV IV Catheter Type [Left Saline Lock Antecubital] IV Catheter Gauge [Left 20 Antecubital] Diet Orders Category Date Time Status Diabetes Consistent CHO/Heart Healthy [DIET] Nutrition 07/07/24 Dinner Active Diagnostics 07/07/24 07/07/24 07/07/24 Range/Units 15:42 12:10 12:01 WBC (4.4-10.8) 10^3/uL RBC (4.36-5.78) 10^6/uL Hgb (13.5-17.5) g/dL Hct (40.0-50.0) % MCV (80-95) fL MCH (27.0-33.0) pg MCHC (32.0-36.0) % RDW (11.8-14.1) % Plt Count (130-400) 10^3/uL MPV (8.0-11.0) fL Immature Gran % % Neutrophils % % Lymphocytes % % Monocytes % % Eosinophils % % Basophils % % Nucleated RBC % (0.0-0.3) % Absolute Neutrophils (1.2-6.7) 10^3/uL Absolute Lymphocytes (1.2-3.4) 10^3/uL Absolute Monocytes (0.1-0.8) 10^3/uL Absolute Eosinophils (0.0-0.7) 10^3/uL Absolute Basophils (0.0-0.2) 10^3/uL Sodium 137 (136-145) mmol/L Potassium 5.6 H (3.5-5.1) mmol/L Chloride 104 (98-107) mmol/L Carbon Dioxide 26.1 (21.0-32.0) mmol/L Anion Gap 6.9 (3-11) mmol/L BUN 56 H (7-18) mg/dL Creatinine 5.2 H* (0.70-1.30) mg/dL Est GFR (CKD-EPI 2020) 10.26 (mL/min/1.73m2) Glucose 151 H (74-106) mg/dL Calcium 9.5 (8.5-10.1) mg/dL Total Bilirubin (0.2-1.0) mg/dL AST (15-37) U/L ALT (16-63) U/L Alkaline Phosphatase (46-116) U/L Total Protein (6.4-8.2) g/dL Albumin (3.4-5.0) g/dL Urine Color Yellow (Yellow) Urine Clarity Cloudy (Clear) Urine pH 6.5 (5-8) Ur Specific [place] 1.020 (1.005-1.025) Urine Protein 100 H (Neg-Trace) mg/dL Urine Ketones Negative (Negative) mg/dL Urine Blood Large H (Negative) Urine Nitrite Negative (Negative) Urine Bilirubin Negative (Negative) Urine Urobilinogen 0.2 (Up to 0.2) mg/dL Ur Leukocyte Esterase Large H (Negative) Urine RBC >50 H (0-2) HPF Urine WBC >50 H (0-5) HPF Ur Epithelial Cells Rare (Negative) HPF Urine Crystals Negative (Negative) HPF Urine Bacteria Moderate (Negative) HPF Urine Casts Negative (Negative) LPF Urine Mucus Negative (Negative) Urine Other Negative (Negative) Ur Culture Indicated? Yes Urine Glucose Negative (Negative) mg/dL COVID-19 Source Not Applicable SARS-CoV-2 (PCR) Negative (Negative) Influenza Type A (PCR) Negative (Negative) Influenza Type B (PCR) Negative (Negative) RSV (PCR) Negative (Negative) 07/07/24 Range/Units 12:00 WBC 4.84 (4.4-10.8) 10^3/uL RBC 2.91 L (4.36-5.78) 10^6/uL Hgb 8.5 L (13.5-17.5) g/dL Hct 28.8 L (40.0-50.0) % MCV 99 H (80-95) fL MCH 29.2 (27.0-33.0) pg MCHC 29.5 L (32.0-36.0) % RDW 16.5 H (11.8-14.1) % Plt Count 156 (130-400) 10^3/uL MPV 10.2 (8.0-11.0) fL Immature Gran % 0.4 % Neutrophils % 54.0 % Lymphocytes % 26.9 % Monocytes % 13.8 % Eosinophils % 4.1 % Basophils % 0.8 % Nucleated RBC % 0.0 (0.0-0.3) % Absolute Neutrophils 2.61 (1.2-6.7) 10^3/uL Absolute Lymphocytes 1.30 (1.2-3.4) 10^3/uL Absolute Monocytes 0.67 (0.1-0.8) 10^3/uL Absolute Eosinophils 0.20 (0.0-0.7) 10^3/uL Absolute Basophils 0.04 (0.0-0.2) 10^3/uL Sodium 136 (136-145) mmol/L Potassium 5.8 H (3.5-5.1) mmol/L Chloride 102 (98-107) mmol/L Carbon Dioxide 28.0 (21.0-32.0) mmol/L Anion Gap 6.0 (3-11) mmol/L BUN 54 H (7-18) mg/dL Creatinine 5.3 H* (0.70-1.30) mg/dL Est GFR (CKD-EPI 2020) 10.03 (mL/min/1.73m2) Glucose 152 H (74-106) mg/dL Calcium 9.7 (8.5-10.1) mg/dL Total Bilirubin 0.73 (0.2-1.0) mg/dL AST 22 (15-37) U/L ALT 15 L (16-63) U/L Alkaline Phosphatase 143 H (46-116) U/L Total Protein 8.3 H (6.4-8.2) g/dL Albumin 2.5 L (3.4-5.0) g/dL Urine Color (Yellow) Urine Clarity (Clear) Urine pH (5-8) Ur Specific [place] (1.005-1.025) Urine Protein (Neg-Trace) mg/dL Urine Ketones (Negative) mg/dL Urine Blood (Negative) Urine Nitrite (Negative) Urine Bilirubin (Negative) Urine Urobilinogen (Up to 0.2) mg/dL Ur Leukocyte Esterase (Negative) Urine RBC (0-2) HPF Urine WBC (0-5) HPF Ur Epithelial Cells (Negative) HPF Urine Crystals (Negative) HPF Urine Bacteria (Negative) HPF Urine Casts (Negative) LPF Urine Mucus (Negative) Urine Other (Negative) Ur Culture Indicated? Urine Glucose (Negative) mg/dL COVID-19 Source SARS-CoV-2 (PCR) (Negative) Influenza Type A (PCR) (Negative) Influenza Type B (PCR) (Negative) RSV (PCR) (Negative) 07/07/24 12:01 Urine Culture - Pending Urine - Reflex from Ua Intake and Output - 24 Hour Total 07/07/24 11:12 thru 07/07/24 15:44 Intake Total 600 Balance 600 Weight 151.2 kg Intake: IV 600 Falls Risk Assessment History of Falls Previous History 07/07/24 12:20 Contributing Factors Confusion,Impairments, 07/07/24 12:20 Medications Ambulatory Aids Uses ambulatory device + 07/07/24 12:20 Tubes/Lines None 07/07/24 12:20 Gait Evaluation W/any additional score 07/07/24 12:20 Fall Total Score 74 07/07/24 12:20 Level of Risk High Risk 07/07/24 12:20 Problems (Last Reviewed 07/01/24 @ 13:30 by Kathy Reeder NP) Acute hyperkalemia (Acute) Acute UTI (Acute) KENNETH (acute kidney injury) (Acute) v v v v v v v v v Sending and/or Receiving Nurses: Please use comment section below to note any information pertinent to the patient hand-off not included above. Information / Comments: To [place] floor at [phone]. Transferred to bed via hover mat. VSS. Oriented to hospital room, call mcneal system, etc. Call mcneal within reach. Bed alarms on. at bedside. Report received from: CECI Koenig.
[2024-07-07] MEDS: Insulin Glargine 300 UNITS/3 ML PEN 30 UNITS SC (22:31)
[2024-07-07] MEDS: Sodium Zirconium Cyclosilicate 10 GM PKT PO (22:32)
[2024-07-07] MEDS: Lidocaine 2% Jelly 11 ML SYR UR (22:32)
[2024-07-07] MEDS: Insulin Aspart 300 UNITS/3 ML PEN SC (22:33)
[2024-07-07] MEDS: Pantoprazole 40 MG TABCR PO (22:33)
[2024-07-07] MEDS: Heparin 5,000 UNITS/ML VIAL 5000 UNITS SC (22:34)
--- NOTE | 2024-07-07 22:48 | TELEP.MEDR_ITS ---
Date of service: 07/07/24 Time of Service: 22:[address] [facility] All[facility]ies Allergies: No Known Allergies Allergy (Verified 07/07/24 11:27) Interview Person Interviewed: * Quality Quality of Interview/Accuracy of Medication List: Excellent Sources Sources used to compile medication list: GoodGuide Medication List, Patient List and SureScripts Changes made to Home Medication List: ADDITIONS: * Colace 100mg PO daily DELETIONS: * Warfarin * Tramadol * Aspirin * Lactobacillus * Fluconazole CHANGES: * Torsemide 40mg PO daily Additional Notes Additional Notes: * none Recommended Changes Recommended Changes(reason for recommendation): * none Attestation: The home medication list is now updated to the best of my knowledge and is ready to be reconciled by the provider. Please contact the [facility] Medication Reconciliation Pharmacist at for any questions.
--- NOTE | 2024-07-07 22:48 | TELEP.MEDREC ---
Date of service: 07/07/24 Time of Service: 22:48 Telepharmacy Home Med Rec Allergies Allergies: No Known Allergies Allergy (Verified 07/07/24 11:27) Interview Person Interviewed: Quality Quality of Interview/Accuracy of Medication List: Excellent Sources Sources used to compile medication list: iGuiders Medication List, Patient List and SureScripts Changes made to Home Medication List: ADDITIONS: Colace 100mg PO daily DELETIONS: Warfarin Tramadol Aspirin Lactobacillus Fluconazole CHANGES: Torsemide 40mg PO daily Additional Notes Additional Notes: none Recommended Changes Recommended Changes(reason for recommendation): none Attestation: The home medication list is now updated to the best of my knowledge and is ready to be reconciled by the provider. Please contact the [facility] Medication Reconciliation Pharmacist at for any questions.
--- NOTE | 2024-07-08 | DI.US_ITS ---
Exam(s) US RENAL EXAM: US RENAL CLINICAL HISTORY: UTI, KENNETH in setting of CKD. TECHNIQUE: Reardon scale, color and spectral Doppler were used. COMPARISON: CT CT ABDOMEN PELVIS WO from 06/06/2023 US US RENAL from 05/22/2024 FINDINGS: the exam is limited by the patient's body habitus. Right kidney: 12.7cm Echogenicity: Normal Hydronephrosis: No Cyst or mass: 5.4 centimeter cyst upper pole Nephrolithiasis: 1.8 centimeter stone upper pole. Left kidney: 9.6cm Echogenicity: Normal Hydronephrosis: No Cyst or mass: 3 centimeter cyst upper pole Nephrolithiasis: Large shadowing stones noted, upper mid and lower poles. Not well seen due to body habitus. Bladder:Decompressed by Knox catheter. Lateral IMPRESSION: Bilateral nephrolithiasis. No evidence of hydronephrosis. Exam is extremely limited by body habitus . DATA REPOSITORY:
[2024-07-08 04:05] VITALS: BP 130/62; PULSE 75; RESP 16; TEMP 36.6; O2SAT 98
[2024-07-08] MEDS: Sodium Zirconium Cyclosilicate 10 GM PKT PO ×3 (06:20→22:26)
[2024-07-08] MEDS: Heparin 5,000 UNITS/ML VIAL 5000 UNITS SC (06:21)
[2024-07-08 07:16] LABS: Abs Immature Grans 0.02 10^3/uL (0.0-0.06); Absolute Basophil Count 0.03 10^3/uL (0.0-0.2); Absolute Eosinophil Count 0.21 10^3/uL (0.0-0.7); Absolute Lymphocyte Count 1.35 10^3/uL (1.2-3.4); Absolute Monocyte Count 0.61 10^3/uL (0.1-0.8); Basophils % 0.7 %; Eosinophils % 4.6 %; HCT 28.3 % (40.0-50.0); HGB 8.4 g/dL (13.5-17.5); Immature Grans % 0.4 %; Lymphocytes % 29.9 %; MCH 29.3 pg (27.0-33.0); MCHC 29.7 % (32.0-36.0); MCV 99 fL (80-95); MPV 9.8 fL (8.0-11.0); Monocytes % 13.5 %; Neutrophils % 50.9 %; Nucleated RBC 0.4 % (0.0-0.3); Platelet Count 130 10^3/uL (130-400); RBC 2.87 10^6/uL (4.36-5.78); RDW 16.4 % (11.8-14.1); RDW-SD 59.4 fL; WBC 4.52 10^3/uL (4.4-10.8)
[2024-07-08 07:21] LABS: INR 1.1 (0.9-1.1); Prothrombin Time 10.9 sec (9.1-11.1)
[2024-07-08 07:30] VITALS: BP 116/69; PULSE 81; RESP 20; TEMP 36.1; O2SAT 97
[2024-07-08 07:36] LABS: Anion Gap 9.3 mmol/L (3-11); BUN 57 mg/dL (7-18); CO2 25.7 mmol/L (21.0-32.0); Calcium 9.5 mg/dL (8.5-10.1); Chloride 103 mmol/L (98-107); Estimated GFR 9.81 (mL/min/1.73m2); Glucose 145 mg/dL (74-106); Potassium 5.9 mmol/L (3.5-5.1); Sodium 138 mmol/L (136-145)
[2024-07-08 07:49] LABS: CREATININE 5.4 mg/dL (0.70-1.30)
[2024-07-08] MEDS: Folic Acid 1 MG TAB 2 MG PO (09:20)
[2024-07-08] MEDS: Finasteride 5 MG TAB PO (09:20)
[2024-07-08] MEDS: Apixaban 2.5 MG TAB PO ×2 (09:20→19:48)
[2024-07-08] MEDS: Insulin Aspart 300 UNITS/3 ML PEN SC ×4 (09:21→19:58)
[2024-07-08] MEDS: Metoprolol CR 25 MG TABCR PO ×2 (09:21→19:48)
[2024-07-08] MEDS: Multivitamin w/Minerals TAB 1 TAB PO (09:22)
[2024-07-08] MEDS: Pantoprazole 40 MG TABCR PO (09:22)
[2024-07-08] MEDS: Docusate Sodium 100 MG CAP PO (09:24)
[2024-07-08] MEDS: Polyethylene Glycol 3350 17 GM PACKET PO (09:24)
[2024-07-08] MEDS: Lidocaine 5% Patch 2 PATCH TP (09:26)
--- NOTE | 2024-07-08 10:06 | PDOC.CMIN ---
Date of service: 07/08/24 Time of Service: 10:06 Care Management Initial Assmt Initial Assessment Reason for Hospitalization: UTI Functional Status/Living Situation Patient Presentation: Sav was sitting up in a chair visiting with Kathy from [facility] when CM met with him initially. He was awakre and alert and oriented and engaged well with Kathy, well known to him from previous visits both here and at home. Sav and Lashawn are evaluating Sav's goals of care. he has end stage kidney disease and is at the point of needing to make a decision about hemodialysis. he has indicated in the past it is not something he wishes to pursue but now is not sure. Discussions have centered on a choice of 3 paths which include proceeding with treatment, transitioning to a more comfort oriented approach or possibly going home on hospice. Please see Kathy's Palliative Care consult from today for more details. 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 Walker. Cpap Advance Directives Advance Directives: Do you have an Advance Directive: Y 07/12/23 07:58 AD On File at [facility]: Y 07/12/23 07:58 Date Asked 07/07/24 07/07/24 11:19 AD Date Reviewed 05/20/24 06/04/24 11:35 COLST On File at [facility] Yes 04/13/23 00:58 COLST Date Scanned 04/13/23 04/13/23 00:58 Code Status Resuscitation Status DNR/DNI Insurance Coverage/Financial Issues Insurance: [employer] medicare Replacement Care Team Visit Care Team Role Provider Type Gordo Dominguez MD Primary Care Provider [facility] STAFF PHYSICIAN InPatient Randell Bucio Other Providers OTHER Mor Ceron MD Emergency Provider [facility] STAFF PHYSICIAN Robert Traore MD Admit Provider [facility] STAFF PHYSICIAN Attending Provider Discharge Potential Discharge Needs: PCP F/U Appt Anticipated Barriers to Discharge: None Identified Patient/Family Education Needs: Review discharge instructions, discuss Ask Me Three Transportation: Private vehicle Plan: Anticipate Sav will be discharged home with a resumption of home health services when medically cleared, although he is currently re-evaluating his goals of care. He will follow up with his PCP and plan of care and transport with [facility]. CM will follow and continue to assess for discharge needs. PFSH All Active Problems (Updated 07/08/24 @ 17:19 by Kathy Reeder NP) Palliative care encounter (Acute) Itching (Acute) ACP (advance care planning) (Acute) DVT prophylaxis (Acute) Acute hyperkalemia (Acute) Acute UTI (Acute) KENNETH (acute kidney injury) (Acute) Pain (Acute) Periprosthetic fracture around internal prosthetic right knee joint (Acute) Loose right total knee arthroplasty (Acute) Right knee pain (Acute) Acute UTI (Acute) Edema (Acute) Cloudy urine (Acute) Lesion of pancreas (Acute) Obstructive uropathy (Chronic) 06/12/23 Per [facility]. -hb Need for home health care (Acute) History of fall (Acute) Noninfected skin tear of left lower extremity (Acute) Fall (Acute) Skin tear of left lower leg without complication (Acute) Hyperkalemia (Acute) VRE (vancomycin resistant enterococcus) culture positive (Acute) Hydronephrosis, left (Acute) Hyperphosphatemia (Acute) Pressure ulcer of right ischium (Acute) Chronic indwelling Knox catheter (Acute) Acute renal failure (Acute) Acute UTI (Acute) Chronic kidney disease (Chronic) 2020- borderline stage 4 Venous insufficiency (chronic) (peripheral) (Acute) Nail dystrophy (Acute) COVID-19 (Acute ~08/05/22) Thumb pain (Acute) Right heart failure (Acute) Urinary retention (Acute) 11/2021, ultrasound shows significant pretty and post void residual- minimal response to voiding Anemia (Chronic) Chronic mild anemia, associated with CKD Obstructive sleep apnea (Chronic) cpap Acute on chronic heart failure with preserved ejection fraction (Acute) Hives (Acute) Obesity (Acute 02/11/13) Obstructive nephropathy (Acute) Moderate pulmonary arterial systolic hypertension (Chronic) Chronic anticoagulation (Chronic) Polyp of colon (Chronic) Rosacea (Chronic) Constipation (Chronic) Medical History CKD (chronic kidney disease) stage 5, GFR 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 Deficit in activities of daily living (ADL) Kidney stones Longstanding history of multiple stones 11/2021 ultrasound showed multiple stones in kidney, 1 stone possibly in right ureter Atrial fibrillation on coumadin Diabetes mellitus CHF (congestive heart failure) 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 Daughter No problems noted. Social History Smoking/Tobacco Use Status: Never Second Hand Exposure: No Smoking risk assessment performed?: Yes Alcohol Intake: current Alcohol Intake frequency: holidays/special occasions only Drug use: Never Substance use type: does not use Caregiver/Support person: Yes Household members: spouse Housing: house Communication Needs: Hard of Hearing Do you need help understanding health information?: Often Pets and animals: No Sexually active: No What is your relationship status?: How often do you talk on the phone with friends or family?: decline to answer How often do you get together with friends or relatives?: decline to answer How often do you attend taoism or rastafari services?: decline to answer Do you belong to any clubs or organized social groups?: decline to answer Panel score (0-1 are the most socially isolated patients): 1 What type of physical activity do you participate in: walking Duration: < 15 minutes/day Frequency: daily Special amor needs: No Do you feel safe at home: Yes Do you feel safe in your relationship?: Yes SDOH(Care Management) Screening Will the Patient Participate in the Screening?: Declined to provide Do you worry about having a steady place to live?: no In the past 12 months, have you had to go without electric, gas, oil or water in your home?: no Have you or anyone in your house had to go without enough food to eat?: no Has lack of transportation kept you from medical appointments or from doing things needed for daily living?: no Has anyone in your support network made you feel unsafe for any reason?: no
[2024-07-08 11:40] VITALS: BP 104/57; PULSE 84; RESP 20; TEMP 36.6; O2SAT 96
--- NOTE | 2024-07-08 11:57 | W.PM.PROGNOT ---
Date of Service Date of service: 07/08/24 Time of Service: 11:57 Assessment and Plan Assessment and plan (1) Acute UTI: Status: Acute Assessment and plan: recurrent UTI complicated by chronic indwelling griffin catheter. Griffin catheter was changed yesterday and urine is clearing up continue ceftriaxone but increase to 2 g IV daily. Unfortunately no blood cultures were obtained in the emergency department. Urine culture is pending at this time but was submitted.. (2) Acute hyperkalemia: Status: Acute Assessment and plan: His medication list has been reconciled he does not take any spironolactone nor does he take any MIS inhibitor or ARB medications and is not on any potassium supplement. Presumably with potassium elevation secondary to worsening renal function along with lack of compliance with a renal diet. Continue Lokelma repeat his potassium later today. However he is making adequate urine and therefore I do not think he needs urgent hemodialysis. I discussed with him the option of going on hemodialysis in the near future as his renal function has been progressively getting worse. He would like to think about this and discuss it further with his and further conversations will be held between him and his and palliative care.. (3) KENNETH (acute kidney injury): Status: Acute Assessment and plan: Attempt was made to perform a bedside POCUS exam including a limited echocardiogram as well as evaluation of his IVC and hepatic and portal veins however images were still poor due to his obesity and increased tissue density I could not obtain adequate images to appropriately interpret his study. Grossly it looks like he has moderate LV systolic dysfunction RV still appears to be smaller than his LV did not image his IVC or hepatic or portal veins and he is subcostal views of his heart and his IVC were so poor I could not make any interpretation. Clinically still seems to be dry he has not taken a lot of oral intake although he did make some attempts of breakfast this morning and he is trying to drink water and juice. He did not want to put him on ongoing IV fluid infusions out of concern that he will go into acute on chronic heart failure. Nevertheless I am still going to withhold his diuretics for 1 more day and give him another 500 mL normal saline bolus today. We will recheck his potassium level later today repeat his BMP in the morning. He will have a palliative care consult to discuss goals of care including whether or not to go on hospice if he chooses not to go on hospice whether or not he would want to reconsider hemodialysis. (4) Obstructive uropathy: Status: Chronic Assessment and plan: patient continues to need griffin catheter for ongoing post bladder obstruction from BPH. 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 I have resumed his home dose of Toprol XL and resumed his apixaban for stroke prophylaxis Qualifiers: Atrial fibrillation type: unspecified chronic Qualified Code(s): I48.20 - Chronic atrial fibrillation, unspecified (7) CHF (congestive heart failure): Assessment and plan: Last echocardiogram that was formally obtained here was performed on 05/22/2024 but was poor image with poor endocardial definition. Overall LV function was globally normal with an estimated EF of 55% however given the poor definition I am sure how that could be adequately interpreted. RV appeared grossly normal in size and function. I will continue to withhold his diuretics while we give him gentle hydration and recheck his electrolytes and BUN/creatinine Qualifiers: Heart failure type: diastolic Heart failure chronicity: chronic Qualified Code(s): I50.32 - Chronic diastolic (congestive) heart failure (8) LUCAS on CPAP: Assessment and plan: continue home CPAP/BIPAP (9) Diabetes mellitus type 2 in obese: Assessment and plan: Continue basal bolus dosing of insulin. Monitor blood sugars ACHS (10) BPH (benign prostatic hyperplasia): Assessment and plan: continue griffin however needs changed out in setting of recurrent UTI. Qualifiers: Lower urinary tract symptom presence: symptoms present Lower urinary tract symptom detail: urinary retention Qualified Code(s): N40.1 - Benign prostatic hyperplasia with lower urinary tract symptoms; R33.8 - Other retention of urine (11) GERD (gastroesophageal reflux disease): Assessment and plan: continue PPI Qualifiers: Esophagitis presence: esophagitis presence not specified Qualified Code(s): K21.9 - Gastro-esophageal reflux disease without esophagitis (12) DVT prophylaxis: Status: Acute Assessment and plan: DC heparin and resume his home dose of apixaban Subjective Subjective Interval history since last seen: Sav has no new complaints/concerns. Not dyspneic at rest, no CP. Despite receiving couple doses of Lokelma, potassium remains elevated at 5.9. However he only got one dose last night as none was given in the ED, so the 5.9 level this mornning only reflects one dose of Lokelma. I will repeat his K level this afternoon. I webexed texts w/ Kathy Reeder NP from Palliative Care and she has seen him in outpatient setting and feels that he is probably a candidate for hospice. She will see him today to discuss this w/ him and his . I did bring up the potential of hemodialysis but carefully outlined that it comes w/ risks and that at present he does not need acute hemodialysis but this would be goals of care choice once his kidney function reaches the stage of needing dialysis and that dialysis may or may not improve the quality of life but deciding on hemodialysis means he needs close follow up w/ his kidney specialist to prepare him for HD when the time comes. I think his hyperkalemia can still be treated w/ out acute HD. Exam Narrative Exam Narrative: Sav is lying in bed he is alert he is oriented to person place circumstance. He denies any pain or dyspnea Lungs are clear to auscultation Heart distant heart tones but sounds to be regular but was difficult to hear, when I reviewed his telemetry it shows that he is in atrial fibrillation at controlled rate Abdomen: obese, soft, nontender, obese Extremities: chronic venous stasis skin changes but no pitting edema, normal DP pulses griffin catheter draininig clearer urine but w/ some blood tinge to it but no longer cloudy/milky like yesterday Objective Last Vital Signs Temp 36.6 C 07/08/24 11:40 Pulse 84 07/08/24 11:40 Resp 20 07/08/24 11:40 BP 104/57 L 07/08/24 11:40 Pulse Ox 96 07/08/24 11:40 Laboratory Results - last 24 hr 07/07/24 07/07/24 07/07/24 12:00 12:01 12:10 WBC 4.84 RBC 2.91 L Hgb 8.5 L Hct 28.8 L MCV 99 H MCH 29.2 MCHC 29.5 L RDW 16.5 H Plt Count 156 MPV 10.2 Immature Gran % 0.4 Neutrophils % 54.0 Lymphocytes % 26.9 Monocytes % 13.8 Eosinophils % 4.1 Basophils % 0.8 Nucleated RBC % 0.0 Absolute Neutrophils 2.61 Absolute Lymphocytes 1.30 Absolute Monocytes 0.67 Absolute Eosinophils 0.20 Absolute Basophils 0.04 PT INR Sodium 136 Potassium 5.8 H Chloride 102 Carbon Dioxide 28.0 Anion Gap 6.0 BUN 54 H Creatinine 5.3 H* Est GFR (CKD-EPI 2020) 10.03 Glucose 152 H Calcium 9.7 Total Bilirubin 0.73 AST 22 ALT 15 L Alkaline Phosphatase 143 H Total Protein 8.3 H Albumin 2.5 L Urine Color Yellow Urine Clarity Cloudy Urine pH 6.5 Ur Specific Buckner 1.020 Urine Protein 100 H Urine Ketones Negative Urine Blood Large H Urine Nitrite Negative Urine Bilirubin Negative Urine Urobilinogen 0.2 Ur Leukocyte Esterase Large H Urine RBC >50 H Urine WBC >50 H Ur Epithelial Cells Rare Urine Crystals Negative Urine Bacteria Moderate Urine Casts Negative Urine Mucus Negative Urine Other Negative Ur Culture Indicated? Yes Urine Glucose Negative COVID-19 Source Not Applicable SARS-CoV-2 (PCR) Negative Influenza Type A (PCR) Negative Influenza Type B (PCR) Negative RSV (PCR) Negative 07/07/24 07/08/24 15:42 07:00 WBC 4.52 RBC 2.87 L Hgb 8.4 L Hct 28.3 L MCV 99 H MCH 29.3 MCHC 29.7 L RDW 16.4 H Plt Count 130 MPV 9.8 Immature Gran % 0.4 Neutrophils % 50.9 Lymphocytes % 29.9 Monocytes % 13.5 Eosinophils % 4.6 Basophils % 0.7 Nucleated RBC % 0.4 H Absolute Neutrophils 2.30 Absolute Lymphocytes 1.35 Absolute Monocytes 0.61 Absolute Eosinophils 0.21 Absolute Basophils 0.03 PT 10.9 INR 1.1 Sodium 137 138 Potassium 5.6 H 5.9 H Chloride 104 103 Carbon Dioxide 26.1 25.7 Anion Gap 6.9 9.3 BUN 56 H 57 H Creatinine 5.2 H* 5.4 H* Est GFR (CKD-EPI 2020) 10.26 9.81 Glucose 151 H 145 H Calcium 9.5 9.5 Total Bilirubin AST ALT Alkaline Phosphatase Total Protein Albumin Urine Color Urine Clarity Urine pH Ur Specific Buckner Urine Protein Urine Ketones Urine Blood Urine Nitrite Urine Bilirubin Urine Urobilinogen Ur Leukocyte Esterase Urine RBC Urine WBC Ur Epithelial Cells Urine Crystals Urine Bacteria Urine Casts Urine Mucus Urine Other Ur Culture Indicated? Urine Glucose COVID-19 Source SARS-CoV-2 (PCR) Influenza Type A (PCR) Influenza Type B (PCR) RSV (PCR) Time Spent with Patient Time Spent with Patient: >50 minutes Time was spent: preparing to see the patient(eg.review tests), ordering medications,tests, procedures, referring, communicating with other health physician primary care sports medicine, indepentently interpreting results, counseling the patient and care coordination
[2024-07-08] MEDS: cefTRIAXone 2 GM/50 ML BAG IVPB (13:29)
[2024-07-08] MEDS: Normal Saline 500 ML 100 ML IV (13:29)
--- NOTE | 2024-07-08 13:50 | PT.INIE ---
PT Notes Visit Reasons: dehydration,UTI,hyperkalemia, KENNETH Inpatient Physical Therapy Evaluation Date: 07/08/2024 Referring Doctor: Dr Traore PT Orders: PT CONSULT: Fall Safety Assessment Precautions:Knox catheter, IV LUE, telemetry in place Patient Profile/Admitting Diagnosis: Pt is an 83yo male presented to the ED on 07/07/24 with increased confusion. His medical work up in the ED revealed KENNETH in setting of CKD stage V, (+) UTI and hyperkalemia. He is being treated with IV fluids and Antibiotics. PMHX: DVT prophylaxis (Acute) Acute hyperkalemia (Acute) Acute UTI (Acute) KENNETH (acute kidney injury) (Acute) Pain (Acute) Periprosthetic fracture around internal prosthetic right knee joint (Acute) Loose right total knee arthroplasty (Acute) Right knee pain (Acute) Acute UTI (Acute) Edema (Acute) Cloudy urine (Acute) Lesion of pancreas (Acute) Obstructive uropathy (Chronic) 06/12/23 Per [facility] [place]. -hbNeed for home health care (Acute) History of fall (Acute) Noninfected skin tear of left lower extremity (Acute) Fall (Acute) Skin tear of left lower leg without complication (Acute) Hyperkalemia (Acute) VRE (vancomycin resistant enterococcus) culture positive (Acute) Hydronephrosis, left (Acute) Hyperphosphatemia (Acute) Pressure ulcer of right ischium (Acute) Chronic indwelling Knox catheter (Acute) Acute renal failure (Acute) Acute UTI (Acute) Chronic kidney disease (Chronic) 2020- borderline stage 4Venous insufficiency (chronic) (peripheral) (Acute) Nail dystrophy (Acute) COVID-19 (Acute ~08/05/22) Thumb pain (Acute) Right heart failure (Acute) Urinary retention (Acute) 11/2021, ultrasound shows significant pretty and post void residual- minimal response to voidingAnemia (Chronic) Chronic mild anemia, associated with CKDObstructive sleep apnea (Chronic) cpapAcute on chronic heart failure with preserved ejection fraction (Acute) Hives (Acute) Obesity (Acute 02/11/13) Obstructive nephropathy (Acute) Moderate pulmonary arterial systolic hypertension (Chronic) Chronic anticoagulation (Chronic) Polyp of colon (Chronic) Rosacea (Chronic) Constipation (Chronic) Medical History CKD (chronic kidney disease) stage 5, GFR 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 Deficit in activities of daily living (ADL) Kidney stones Longstanding history of multiple stones 11/2021 ultrasound showed multiple stones in kidney, 1 stone possibly in right ureterAtrial fibrillation on coumadinDiabetes mellitus CHF (congestive heart failure) Chondrocalcinosis articularis Arthritis of right shoulder region Arthritis of right wrist Right wrist pain Obesity hypoventilation syndrome Atrial fibrillation Nephrolithiasis BPH (benign prostatic hyperplasia) GERD (gastroesophageal reflux disease) Hyperlipidemia Essential hypertension, benign LUCAS on CPAP Diabetes mellitus type 2 in obese Surgical History Replacement of total knee joint B/LTonsillectomy and adenoidectomy Colonoscopy - MAC (~2002) Cholecystectomy (~1985) Social History/Home Situation: resides at home with his in 1 level home with ramp to enter. He reports he has not been walking more than a few steps for transfers since he got home from [facility]. He reports his assists with ADLs. He states he uses the adjustable bed to help him get seated at the edge of the bed. at home He has been using wheelchair as his primary mode of locomotion. His assists with CPAP management. Equipment Owned/DME: wheelchair ramp to enter home, wheelchair, 4WW and FWW, adjustable bed, CPAP, stand Assist recliner Subjective: Pt reports he is uncertain how long he has had the swelling in his right hand. It started at the [facility] Objective: General Observation: ill appearing male presenting in bed with HOB fully elevated and increase weight shift to the left.Swelling in RUE with stockenette in place MCP to elbow. Mental Status: alert and Ox2 Pain: 2/10 right lower leg; 4/10 in right arm Vital Signs: telemetry in place ROM: Right Upper Extremity: shoulder flexion 40degrees , abduction 15 degrees, elbow flexion 100 degrees, wrist [id number], wrist extension 8 degrees, thumb opposition 0 AROM, finger flexion gross grasp for support on FWW Left Upper Extremity: WFL Right Lower Extremity: hip flexion 15-85degrees, hip add to neutral, knee flexion 95 degrees ankle to neutralDF. Left Lower Extremity: hip flexion 15-85degrees, hip add to neutral, knee flexion 95 degrees ankle to neutral DF. Pt BLE rest in frog leg position in bed. Strength: Right Upper Extremity:shoulder flexion 2-/5 abduction, 2-/5, elbow flexion 3-/5, elbow extension 3/5, wrist 2+/5 finger and thumb 2-/5 Left Upper Extremity: grossly 3/5 Right Lower Extremity: hips flexion 3-/5; abduction, 2-/5, IR 2-/5, Knee extension, 3-/5, knee flexion 2+/5, ankle 3/5 Left Lower Extremity: hips flexion 3-/5; abduction, 2-/5, IR 2-/5, Knee extension, 3-/5, knee flexion 2+/5, ankle 3/5 Sensation: intact Swelling: right UE hand wrist and forearm Bed Mobility/Transfers: Rolling Dependent of 3 supine to sit with Max A of 2 with HOB up Sit to supine Max A of 2 Sit to stand mod A of 2 with CGA of a 3rd person to hold FWW in place; pushing up with hands on FWW d/t inability to push up from bed Bed to chair with FWW step turn with Mod A of 2 and CGA of 3rd Gait: FWW with mod A of 2 5 steps Balance: Static Sitting:Good Dynamic Sitting: Fair Static Standing:Fair - Dynamic Standing: Fair - with BUE support Special Tests: Mobility Limitations Standardized Measure [facility] 6 clicks Basic Mobility Inpatient Short Form: Raw Score: 10 CMS Score: 76.75% disability Informed Consent/Education: Patient instructed in purpose of PT consult and plan of care. Assessment: Patient is a 83 year old male referred to physical therapy services with the diagnosis of UTI, dehydration, KENNETH in setting of CKD stage V and Hyperkalemia. Patient presents with clinical signs and symptoms consistent with current diagnosis, as demonstrated by the following impairment level findings: 1. swelling RUE 2.impaired ROM RUE, and BLE 3. increased pain in RUE and RLE 4. Impaired strength Impairments are contributing to the following functional limitations: 1. AMPAC score. 2. decreased ability to perform bed mobility 3. decreased ability to perform transfers with FWW 4. decreased ability to perform ambulation with FWW 5. Impaired self care ability Patient is assessed as a Moderate [id number] complexity based on the following: History: Pt is an 83 yo male presenting with KENNETH in setting of CKD stage V with multiple comorbidities. Examination: see above Presentation: evolving Decision Making:moderate Goals: Goals X1 week 1. Supine-Sit mod A of 1 2. Sit-Supine mod A of 1 3. Sit-Standmod A of 1 4. Stand-Sit mod A of 1 5. Bed-Chair mod A of 1 with FWW 6. Chair-Bed Mod A of 1 with FWW 7. Gait with FWW mod A of 1; 25 feet 8. Independent with home exercise program for BLE and Plan of Care/Treatment Plan: 1-2x/day, 7 days/week x 1 week. Plan of care has been reviewed with the TRAFFIC CONTROL OPERATOR providing the service under Physical Therapy direction. Initiate Physical Therapy intervention for strengthening, bed mobility, transfers, gait, stairs, balance training, use of assistive device. DISCHARGE RECOMMENDATIONS: [X] SNF for continued rehabilitation to improve functional mobility to allow for return to home with his vs Home with PT TREATMENT CODE/TIME:[id number]; [id number]; 2nd session:[id number] Please sign an return this page within 30 days if you agree with the above POC. Thank you! Physician Signature Date [facility]
[2024-07-08 14:41] LABS: Potassium 5.2 mmol/L (3.5-5.1)
[2024-07-08 15:33] VITALS: BP 110/50; PULSE 91; RESP 20; TEMP 36.5; O2SAT 98
--- NOTE | 2024-07-08 15:40 | W.PALLCONSUL ---
Date of service: 07/08/24 Time of Service: 13:00 History of Present Illness Narrative: Mr. Ang is an 83 y/o M est PC pt currently hospitalized at [facility] 2/2 UTI and hyperkalemia in the setting of CKD; PC dx CKD, falls; PMH sig for CKD, CHF w/a fid, DM, HTN, HLD, BPH, GERD, obesity; present today /HCA Lashawn; Hospital course: presented to [facility] ED on 07/07/24 w/AMS, after 2 nights of increased delusions, non-sensicle speech and comprehension, w/reported cloudy urine in griffin catheter. ED work up consistent w/UTI and hyperkalemia, admitted for ongoing management; started on Lokelma, w/no response after 2 doses; urine clear, continues ceftriaxone 2g IV daily, cultures pending, MS improving; clinically dry, suspected r/t no oral intake, home diuretics on hold, currently receiving NS bolus of 500 at 100mL/hr rate. plan to receive additional dose of Lokelma w/close monitoring of potassium. - pending potassium levels, decision for transfer for initiation of dialysis vs transition to comfort focused care w/potential discharge home on hospice per staff: transfer to recliner w/3 person assist, he initiated. PO intake reduced, <25% breakfast/lunch; he reported to nursing no BM in 4 days, started on BM regimen today; Lashawn self presented to PC office to review POC and Sav's current status; she is tired, having difficult time going back and forth from home to hospital. she worries about transfer to tertiary facility and the toll that will take on her; she worries about his QoL, franco since he is largely bedbound at current state, how will he present to dialysis 3d/wk? - unfortunately, she got a flat tire today, their [employer] membership had lapsed, but a good sumaritan did stop and help her, she is able to join Sav for visit at end of day. - based on prior conversations she has had with Sav, if he were to lose capacity, she would consider no dialysis and going home on hospice. - she is worried about his itching, he has complained of this increasingly over last few weeks. applying some lotion sometimes - she has started giving him morphine 1mL for pain, he has intermittently yelled out in pain w/movement; seems to be working for him. - he is currently using bed pain for BM movements d/t inability to use transfer to bathroom; - was bed bound for 4 days prior to ED presentation Sav is sitting in recliner in room today throughout visit; w/o prompting he describes current treatment plan of receiving medication to lower potassium, aware that if it doesn't work it is indicating his CKD is progressing to end stage, requiring dialysis. he is unsure if he would want dialysis, I don't know what my QoL would be like until I try it. he is aware that if he opted for dialysis he could not initiate this at [facility] and he would need to be transferred, w/potential outpatient dialysis occuring in [facility] once discharged. he denies pain today. he denies itching currently, but does endorse full body itching occuring daily. he worries most about life for Lashawn, both now in her current role and after he dies, fearing she will have no one. Assessment and Plan Assessment and plan (1) Acute hyperkalemia: Status: Acute Assessment and plan: has now received 3 doses of Lokelma potassium 5.9 on morning labs down to 5.2 afternoon labs continue to monitor goal of returning to baseline ~3.7 likely r/t CKD (2) Acute UTI: Status: Acute Assessment and plan: recurrent chronic griffin catheter, changed yesterday urine improving continue ceftriaxone, 2g IV daily (3) Pain: Status: Acute Assessment and plan: denies today using morphine 10mg q4h PRN at home, consider adding if needed for pain lidocaine patches in place (4) Itching: Status: Acute Assessment and plan: suspect associated w/CKD; denies currently - requested nursing assess for itching if itching complaint, recommend 1. hydrourea cream, 2. ondanesetron 3. antihistamines he is currently on gabapentin 200mg qhs, which could be considered TID dosing if no effect w/above, however d/t renal concerns would advise 100mg dose w/close monitoring (5) Edema: Status: Acute Assessment and plan: remains dry today, diuretics on hold NS 500mL bolus today, receiving currently; Sav would like to continue IVF (6) Need for home health care: Status: Acute Assessment and plan: HH currently following will need home health on discharge, previously stated would not want to return to SNF previously instructed to hire additional caregiving and provided information on caregiver programs would benefit from hospice supports at home (7) History of fall: Status: Acute Assessment and plan: w/need for lift assist high fall risk using electric WC at home, able to stand and pivot at previous baseline last week (8) Chronic indwelling Griffin catheter: Status: Acute (9) Venous insufficiency (chronic) (peripheral): Status: Acute (10) Obesity: Status: Acute (11) Constipation: Status: Chronic Assessment and plan: using bed luna d/t inability to transfer at home bowel regimen restarted (12) Hematuria: Status: Resolved (13) CKD (chronic kidney disease) stage 5, GFR 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: Assessment and plan: hospice eligible today if: 1. not seeking dialysis or transplant - he would like to hold on decision today, see if his potassium returns to baseline w/medication. aware would need transfer to tertiary facility for initiation. would like to review with . 2. CrCl <15cc/min w/CHF comorbidity - CrCl ~16 today 3. serum creatinine >8.0mg/dl - 5.4 today 4. S/sxs of renal failure: uremia, oliguria, hyperkalemia, uremic pericarditis, HRS, intractable fluid overload - continues to make urine, hyperkalemia present, current dry 5. GFR <10ml/min - 9.8mL/min today he is eligible for hospice at this time; pending decision making for dialysis (14) Deficit in activities of daily living (ADL): Assessment and plan: near total assist, currently from eating independent bowels continent w/bedpan; griffin catheter unable to transfer w/o assistance assistance w/dressing and hygiene (15) CHF (congestive heart failure): Qualifiers: Heart failure chronicity: chronic Heart failure type: diastolic Qualified Code(s): I50.32 - Chronic diastolic (congestive) heart failure (16) ACP (advance care planning): Status: Acute Assessment and plan: reviewed pathway with Nadege independently; monitor potassium, if return baseline go home and continue CKM, if no baseline consider yes dialysis w/transfer or no dialysis w/remain in hospital vs home on hospice - pathway decisions reviewed x3 w/Sav, who demonstrated capacity each time; he appears fearful and worried, would benefit from ongoing, slowed conversations, giving pause/space for review reviewed potassium levels r/t renal function, likely transitioning to ESRD, which requires HD if decision is for life sustaining treatment; reviewed HD requirements of 3d/week, multiple hour runs, frequent visits, likely ongoing decline in function; reviewed w/o dialysis can focus on conservative management, maximizing medications for symptom relief, comfort, etc, w/support from hospice reviewed need for transfer for dialysis initiation, if fail Lokelma trial; he is unsure if he would want this; Lashawn has significant concerns with the travel requirements for her Sav's biggest concerns continue to be, and have historically been around Lashawn's well being now and after he dies; I asked Lashawn to have a honest conversation with him regarding how things are going currently; her preference in his care would be home on hospice, she feels comfortable that she could care for him in home w/hospice supports spent 55 mins w/ACP (17) Palliative care encounter: Status: Acute Assessment and plan: palliative will be available for ongoing GOC conversations in the upcoming days as needed appreciate consult today Review of Systems Narrative: as per HPI PFSH All Active Problems (Updated 07/08/24 @ 17:19 by Kathy Reeder NP) Palliative care encounter (Acute) Itching (Acute) ACP (advance care planning) (Acute) DVT prophylaxis (Acute) Acute hyperkalemia (Acute) Acute UTI (Acute) KENNETH (acute kidney injury) (Acute) Pain (Acute) Periprosthetic fracture around internal prosthetic right knee joint (Acute) Loose right total knee arthroplasty (Acute) Right knee pain (Acute) Acute UTI (Acute) Edema (Acute) Cloudy urine (Acute) Lesion of pancreas (Acute) Obstructive uropathy (Chronic) 06/12/23 Per [facility] [place] Need for home health care (Acute) History of fall (Acute) Noninfected skin tear of left lower extremity (Acute) Fall (Acute) Skin tear of left lower leg without complication (Acute) Hyperkalemia (Acute) VRE (vancomycin resistant enterococcus) culture positive (Acute) Hydronephrosis, left (Acute) Hyperphosphatemia (Acute) Pressure ulcer of right ischium (Acute) Chronic indwelling Griffin catheter (Acute) Acute renal failure (Acute) Acute UTI (Acute) Chronic kidney disease (Chronic) 2020- borderline stage 4 Venous insufficiency (chronic) (peripheral) (Acute) Nail dystrophy (Acute) COVID-19 (Acute ~08/05/22) Thumb pain (Acute) Right heart failure (Acute) Urinary retention (Acute) 11/2021, ultrasound shows significant pretty and post void residual- minimal response to voiding Anemia (Chronic) Chronic mild anemia, associated with CKD Obstructive sleep apnea (Chronic) cpap Acute on chronic heart failure with preserved ejection fraction (Acute) Hives (Acute) Obesity (Acute 02/11/13) Obstructive nephropathy (Acute) Moderate pulmonary arterial systolic hypertension (Chronic) Chronic anticoagulation (Chronic) Polyp of colon (Chronic) Rosacea (Chronic) Constipation (Chronic) Medical History CKD (chronic kidney disease) stage 5, GFR 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 Deficit in activities of daily living (ADL) Kidney stones Longstanding history of multiple stones 11/2021 ultrasound showed multiple stones in kidney, 1 stone possibly in right ureter Atrial fibrillation on coumadin Diabetes mellitus CHF (congestive heart failure) 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 Daughter No problems noted. Social History Smoking/Tobacco Use Status: Never Second Hand Exposure: No Smoking risk assessment performed?: Yes Alcohol Intake: current Alcohol Intake frequency: holidays/special occasions only Drug use: Never Substance use type: does not use Caregiver/Support person: Yes Household members: spouse Housing: house Communication Needs: Hard of Hearing Do you need help understanding health information?: Often Pets and animals: No Sexually active: No What is your relationship status?: How often do you talk on the phone with friends or family?: decline to answer How often do you get together with friends or relatives?: decline to answer How often do you attend episcopalian or jain services?: decline to answer Do you belong to any clubs or organized social groups?: decline to answer Panel score (0-1 are the most socially isolated patients): 1 What type of physical activity do you participate in: walking Duration: < 15 minutes/day Frequency: daily Special amor needs: No Do you feel safe at home: Yes Do you feel safe in your relationship?: Yes Exam Narrative Exam Narrative: General: older adult male, sitting in recliner, cooperative HEENT: normocephalic, atraumatic, hearing appropriate w/elevated voice volume Resp: even and shallow, able to speak full sentences, no cough or audible wheeze Ext: chronic venous stasis skin changes, less edematous compared to previous visit, non-pitting Neuro: AAOx3; Psych: speech clear and delayed; mood congruent; affect blunted to normal; thought process circumstantial, loose association; insight and judgment limited Results Last Vital Signs Temp 97.7 F 07/08/24 15:33 Pulse 91 H 07/08/24 15:33 Resp 20 07/08/24 15:33 BP 110/50 L 07/08/24 15:33 Pulse Ox 98 07/08/24 15:33 Labs 07/08/24 07:00 07/08/24 14:02 Labs: Laboratory Results - last 24 hr 07/07/24 07/08/24 07/08/24 15:42 07:00 14:02 WBC 4.52 RBC 2.87 L Hgb 8.4 L Hct 28.3 L MCV 99 H MCH 29.3 MCHC 29.7 L RDW 16.4 H Plt Count 130 MPV 9.8 Immature Gran % 0.4 Neutrophils % 50.9 Lymphocytes % 29.9 Monocytes % 13.5 Eosinophils % 4.6 Basophils % 0.7 Nucleated RBC % 0.4 H Absolute Neutrophils 2.30 Absolute Lymphocytes 1.35 Absolute Monocytes 0.61 Absolute Eosinophils 0.21 Absolute Basophils 0.03 PT 10.9 INR 1.1 Sodium 137 138 Potassium 5.6 H 5.9 H 5.2 H Chloride 104 103 Carbon Dioxide 26.1 25.7 Anion Gap 6.9 9.3 BUN 56 H 57 H Creatinine 5.2 H* 5.4 H* Est GFR (CKD-EPI 2020) 10.26 9.81 Glucose 151 H 145 H Calcium 9.5 9.5 Time Spent Time Spent with Patient Time Spent(min): 150
[2024-07-08] MEDS: Diclofenac 1% Gel 100 GM TUBE TP ×2 (17:08→19:48)
[2024-07-08] MEDS: MORPHine Oral Concentrate 20 MG/ML PO (18:03)
[2024-07-08 18:50] LABS: Homocysteine 18.5 umol/L (5.0-13.9)
[2024-07-08 19:11] VITALS: BP 113/66; PULSE 88; RESP 20; TEMP 36.1; O2SAT 97
[2024-07-08] MEDS: Gabapentin 100 MG CAP 200 MG PO (19:47)
[2024-07-08] MEDS: Pravastatin 40 MG TAB PO (19:48)
[2024-07-08] MEDS: Melatonin 3 MG TAB 4.5 MG PO (19:48)
[2024-07-08] MEDS: Tamsulosin 0.4 MG CAPCR PO (19:48)
[2024-07-08] MEDS: Patch Removal 2 EACH TP (19:50)
[2024-07-08] MEDS: Insulin Glargine 300 UNITS/3 ML PEN 30 UNITS SC (19:57)
[2024-07-08 23:22] VITALS: BP 98/65; PULSE 64; RESP 20; TEMP 36.5; O2SAT 97
[2024-07-09] VITALS (7 sets, daily range): BP systolic 95–102; BP diastolic 59–64; PULSE 69–79; RESP 5–20; TEMP 36–36.7; O2SAT 91–98
[2024-07-09] MEDS: Pantoprazole 40 MG TABCR PO (06:40)
[2024-07-09] MEDS: Sodium Zirconium Cyclosilicate 10 GM PKT PO (06:41)
[2024-07-09 07:41] LABS: Anion Gap 8.3 mmol/L (3-11); BUN 56 mg/dL (7-18); CO2 25.7 mmol/L (21.0-32.0); Calcium 9.2 mg/dL (8.5-10.1); Chloride 102 mmol/L (98-107); Estimated GFR 10.03 (mL/min/1.73m2); Glucose 103 mg/dL (74-106); Potassium 4.8 mmol/L (3.5-5.1); Sodium 136 mmol/L (136-145)
[2024-07-09 07:47] LABS: CREATININE 5.3 mg/dL (0.70-1.30)
[2024-07-09] MEDS: Lidocaine 5% Patch 2 PATCH TP (09:10)
[2024-07-09] MEDS: Polyethylene Glycol 3350 17 GM PACKET PO (09:10)
[2024-07-09] MEDS: Finasteride 5 MG TAB PO (09:11)
[2024-07-09] MEDS: Multivitamin w/Minerals TAB 1 TAB PO (09:11)
[2024-07-09] MEDS: Folic Acid 1 MG TAB 2 MG PO (09:11)
[2024-07-09] MEDS: Docusate Sodium 100 MG CAP PO (09:11)
[2024-07-09] MEDS: Apixaban 2.5 MG TAB PO ×2 (09:11→20:43)
--- NOTE | 2024-07-09 09:33 | PCPN_ITS ---
Date of service: 07/09/24 Time of Service: 09:05 Subjective Subjective Interval history since last seen: See Palliative Care Note from Kathy Reeder NP from yesterday. -Last evening Lashwan sent PC a portal message saying that she thoughther should go home on hospice. explains that she decided on hospice because she wants him to be comfortable. She needs the extra help, because he can only walk 10-20 feet and needs help with transfer. However, she did not discuss this with her . -Patient is not so sure. He is happy that his potassium is better and that he does not need dialysis. He is not sure whether he would want to have dialysis once it was indicated. He cannot tell me whether he would choose dialysis at the time if offered. Unable to think how he would make this decision in the future if he needed to do so. (note multiple discussions regarding this in terrence past with Kathy Reeder NP and ) -Sounds like is struggling to keep him at home without additional help. -She did not think that she would be able to transport him herself to dialysis, (I explained that RCT can be arranged). -He does not have CFC, but does have some intermodal dispatcher care insurance. They had hired aides to come in and help with housework, but did not seem to be helpful. and Pt would like to talk it over. Sounds like they are NOT leaning towards hospice today. I will touch base with them later. 17:05: Multiple attempts to reconnect with during the day, finally successful. I was nable to set up in person meeting with both and pt (due to her car troubles, etc) Additional hx: Pt becoming less and less mobile. SHe had been having great di fficulty with any transfers, even with some sort of device (not a kana). AFter his May 2024 admission for UTI, he spent 4-5 weeks at [facility] working on getting stronger. He got stgrong enough so that he could walk up to 40 feet in the hallway with a walker, but still needed assist with standing up and transfers. HE was finallt discharged to home ONLY A WEEK before this admission. SHe is still having so much trouble helping him with transfers. SHe is not sure how she is going to manage him at home. Lashawn says that he is NOT willing to consider intermodal dispatcher SNF placement. HE would rather at home. SHe also was worried about how is he going to do dialysis...how is he going to crawl on his own into that machine? We talked a little bit about logistics of dialysis. SHe will look at pics on internet. Additional updates: -Sav will remain inpt at [facility] at least overnight, too weak to go home. -I asked if she though he was confused, and she said she thinks he is confused. She and Sav talked earlier. He is firm about not going home on hopsice. HE wants to see how it goes over a the first few days. If not going well, would consider hospice. Plan: Pt and and hoping to go home with Home Health services. Things are going to be tenuous at home with his imobility, size and lack of addl help for transfers at home. I do not think that dialysis is imminent (i.e. not days to week). However, given his CKD5 and two episodes of urosepsis within 7 weeks, I do think he qualifies for hospice, should they elect to enroll. Close follow-up with palliative Care. Hoping that Kathy Reeder can see him in the next 2 weeks. At that time pursing thoughtful conversation regarding Goals of Care, with careful attention to his capacity to make decision regarding dialysis and even the ability to be cared for at home without addl help. Objective Last Vital Signs Temp 36.4 C L 07/09/24 08:06 Pulse 79 07/09/24 08:06 Resp 17 07/09/24 08:06 BP 100/61 07/09/24 08:06 Pulse Ox 91 L 07/09/24 08:06 Laboratory Results - last 24 hr 07/08/24 07/08/24 07/09/24 09:10 14:02 06:20 Sodium 136 Potassium 5.2 H 4.8 Chloride 102 Carbon Dioxide 25.7 Anion Gap 8.3 BUN 56 H Creatinine 5.3 H* Est GFR (CKD-EPI 2020) 10.03 Glucose 103 Calcium 9.2 Homocysteine 18.5 H
--- NOTE | 2024-07-09 09:40 | PDOC.CMPRO ---
Date of service: 07/09/24 Time of Service: 09:40 Care Management Progress Note Progress Note Text Progress Note Text: Sav was sitting up in bed when CM met with him. He stated that he is working on a plan to discharge home, with his and neighbor, who will transport him. Per MD, he is not yet medically cleared for discharge, due to edema in his legs and in his right hand. CM discussed discharge planning considerations; Sav stated he does not feel ready for hospice, and that he would like to return home and see how it goes. CM informed him that he can make the transition to hospice at home. Sav also stated that he does not want to go to SNF, and feels that he can manage at home. He stated that he has a power w/c, a 4WW, and is able to walk short distances/transfer; PT working with him to progress his mobility. CM spoke to Lashawn, his , over the phone, and informed her that he will likely discharge home tomorrow. She is preparing to take him home, and reported that a neighbor will help transport him home. CM will continue to follow. Discharge Potential Discharge Needs: Other (Possible home with hospice vs SNF) Anticipated Barriers to Discharge: None Identified Patient/Family Education Needs: Review discharge instructions, discuss Ask Me Three Transportation: Private vehicle Plan: Anticipate Sav will return home, with a resumption of HH services vs hospice care. His transportation will depend on his mobility; private vehicle vs w/c van. He will follow up with his community providers and discharge plan of care. CM will continue to follow. SDOH(Care Management) Screening Will the Patient Participate in the Screening?: Declined to provide Do you worry about having a steady place to live?: no In the past 12 months, have you had to go without electric, gas, oil or water in your home?: no Have you or anyone in your house had to go without enough food to eat?: no Has lack of transportation kept you from medical appointments or from doing things needed for daily living?: no Has anyone in your support network made you feel unsafe for any reason?: no
--- NOTE | 2024-07-09 11:47 | NUR.NOTE ---
Nursing Note: Patient is refusing all interventions at this time, and states I want to go home with my He had a pallative meeting this morning, which patient states didn't go well, and I need an ambulance to bring me home This nurse edcuated patient on importance of interventions but the patient didn't want to hear or listen at this time. Sounds like the plan may be fore patient to go home on hospice today.
--- NOTE | 2024-07-09 12:35 | PTTR_ITS ---
PT Notes Visit Reasons: Dehydration, UTI, Hyperkalemia, KENNETH Inpatient Physical Therapy Treatment Note [facility] Date: 07/09/2024 PRECAUTIONS:CLARICE griffin SUBJECTIVE: I am feeling a little better but I am not up for doing much. at start of 2nd session pt stated: I am just waiting for a ride to take me home. I am not getting into the chair I just want to lay back down in the bed. OBJECTIVE: Pt in bed with HOB elevated eating chips trunk slight lean to the le ft. Pt agreeable to exercising his right arm and his legs. Significant reduction in swelling in his right wrist and hand . During 2nd session pt seated at EOB with gait belt on fully dressed ? PAIN: only if I move that right arm certain ways VITALS: ?monitored by Nursing/telemetry Therapeutic Activities (58838x1): Direct one-on-one instruction in dynamic activities to improve functional performance. ? BED MOBILITY/TRANSFERS?( 2nd session) ? Rolling L/R: max assist of 3? Sit-supine: max A of 2 ? Sit-stand: refused ? Stand-sit: refused? Bed-Chair: refused ? Chair-bed: refused Provided skilled cues and instruction on performance and technique throughout. ? Therapeutic Exercises ([id number]): Direct one-on-one instruction in therapeutic exercises to develop strength, endurance, range of motion and flexibility. (1st session) ? Exercises 10 reps ? RUE : AAROM: elbow extension, pronation/supination, wrist flexion/extension, thumb opposition to all digits. finger flexion and extension BLE Quad sets, ankle pumps ? Provided skilled instruction in proper exercise performance Provided skilled manual cues to facilitate proper muscle recruitment and/or form: ASSESSMENT:? Pt demonstrates significant reduction in swelling in his right thumb fingers and wrist, [place] remains off of his right UE. He tolerates AAROM to right elbow wrist thumb and fingers this session without facial grimacing. He able to perform opposition to all digits AAROM today. This session shortened by Palliative consultation. During 2nd session pt required max A of 2 to return to supine position then dependent of 3 to boost up in bed with draw sheet and gravity assist position of bed. Uncertain of his 's ability to provide care d/t need for 2-3 assist. PLAN:continue with strengthening functional mobility as pt allows in prep for discharge to home TREATMENT CODE/TIME: 48701 17 mins [id number], 2nd session [id number] 11 mins [id number] DISCHARGE RECOMMENDATION: Home with with supportive hospice services vs SNF
--- NOTE | 2024-07-09 16:38 | PHA.REVIEW2 ---
Pharmacy Admission Review Admission Clinical Review Admission Pharmacy Review: Palliative care encounter (Acute) Itching (Acute) ACP (advance care planning) (Acute) DVT prophylaxis (Acute) Acute hyperkalemia (Acute) Acute UTI (Acute) KENNETH (acute kidney injury) (Acute) Pain (Acute) Edema (Acute) Need for home health care (Acute) History of fall (Acute) Chronic indwelling Knox catheter (Acute) Venous insufficiency (chronic) (peripheral) (Acute) Obesity (Acute 02/11/13) No Known Allergies Allergy (Verified 07/07/24 11:27) Resuscitation Status DNR/DNI Height 6 ft 2 in Weight 145.5 kg Comments Comments/Follow Ups: Patient did have hyperkalemia and was receiving Lokelma. Potassium normalized today. Pharmacy Admission Review Renal Dosing Renal Dosing: BUN 56 mg/dL (7-18) H 07/09/24 06:20 Creatinine 5.3 mg/dL (0.70-1.30) H* 07/09/24 06:20 Medications needing adjustments: Reviewed (CrCl 15.7 mL/min, BUN decreased from 57 and SCr decreased from 5.3) List of meds needing interventions: Current medications are okay Anticoagulation Anticoagulation: Hgb 8.4 g/dL (13.5-17.5) L 07/08/24 07:00 Hct 28.3 % (40.0-50.0) L 07/08/24 07:00 Plt Count 130 10^3/uL (130-400) 07/08/24 07:00 INR 1.1 (0.9-1.1) 07/08/24 07:00 Creatinine 5.3 mg/dL (0.70-1.30) H* 07/09/24 06:20 DVT Prophylaxis: Reviewed Medications: Apixaban (2.5mg PO BID) Relevant Labs Relevant Labs: Sodium 136 mmol/L (136-145) 07/09/24 06:20 Potassium 4.8 mmol/L (3.5-5.1) 07/09/24 06:20 Chloride 102 mmol/L (98-107) 07/09/24 06:20 Electrolytes, C-Reactive P, ESR: Reviewed DM Control DM Control: Glucose 103 mg/dL (74-106) 07/09/24 06:20 Finger Stick Blood Glucose 184 1621 Finger Stick Blood Glucose 184 1621 DM Control: Reviewed Insulin Dosing, Diabetic Medication: Has order for SS insulin with meals and at bedtime, and glargine 30 units at bedtime Cardiac Review Cardiac Review: Blood Pressure 100/59 1140 Blood Pressure 100/61 0806 BP, HR, EF%: Reviewed (HR WNL) QTc Review QTc: Reviewed (446 from 07/07/24) IV to PO Switch IV Medications: Reviewed (ceftriaxone) Home Meds Home Med List reviewed: Reviewed Relevent Home Meds Not ordered & why?: Acetaminophen (PRN), metolazone (PRN) and torsemide Current Meds Current Medication Order Review: Intervened Comments: Added IV admission order set Pharmacy Antibiotic Review Relevant Labs: WBC 4.52 10^3/uL (4.4-10.8) 07/08/24 07:00 Temperature 36.0 C Temperature 36.4 C Microbiology 07/07/24 12:01 Urine Culture - Final Urine - Reflex from Ua Serratia Marcescens Gram Positive Kanchan,Mixed Pharmacy Antibiotic Activity: C/S review and Reviewed, no change Comments: Patient is on ceftriaxone day 3 for UTI. Serratia Marcescens showing resistance to cefazolin and Macrobid. Comments Comments/Follow Ups: Patient did have hyperkalemia and was receiving Lokelma. Potassium normalized today.
[2024-07-09] MEDS: Insulin Aspart 300 UNITS/3 ML PEN SC ×2 (16:48→20:52)
[2024-07-09] MEDS: Melatonin 3 MG TAB 4.5 MG PO (20:42)
[2024-07-09] MEDS: Gabapentin 100 MG CAP 200 MG PO (20:43)
[2024-07-09] MEDS: Tamsulosin 0.4 MG CAPCR PO (20:43)
[2024-07-09] MEDS: Pravastatin 40 MG TAB PO (20:43)
[2024-07-09] MEDS: Metoprolol CR 25 MG TABCR PO (20:43)
[2024-07-09] MEDS: Lactulose 20 GM/30 ML CUP 10 GM PO (20:43)
[2024-07-09] MEDS: Patch Removal 2 EACH TP (20:44)
[2024-07-09] MEDS: Insulin Glargine 300 UNITS/3 ML PEN 30 UNITS SC (20:51)
[2024-07-10] VITALS (11 sets, daily range): BP systolic 99–123; BP diastolic 56–76; PULSE 74–92; RESP 5–24; TEMP 36.2–36.8; O2SAT 93–98
[2024-07-10 07:16] LABS: Anion Gap 9.7 mmol/L (3-11); BUN 51 mg/dL (7-18); CO2 25.3 mmol/L (21.0-32.0); Calcium 9.1 mg/dL (8.5-10.1); Chloride 100 mmol/L (98-107); Estimated GFR 10.03 (mL/min/1.73m2); Glucose 147 mg/dL (74-106); Potassium 4.6 mmol/L (3.5-5.1); Sodium 135 mmol/L (136-145)
[2024-07-10 07:33] LABS: CREATININE 5.3 mg/dL (0.70-1.30)
[2024-07-10] MEDS: Lactulose 20 GM/30 ML CUP 10 GM PO (09:06)
[2024-07-10] MEDS: Lidocaine 5% Patch 2 PATCH TP (09:07)
[2024-07-10] MEDS: Folic Acid 1 MG TAB 2 MG PO (09:07)
[2024-07-10] MEDS: Multivitamin w/Minerals TAB 1 TAB PO (09:07)
[2024-07-10] MEDS: Apixaban 2.5 MG TAB PO ×2 (09:08→21:40)
[2024-07-10] MEDS: Finasteride 5 MG TAB PO (09:08)
[2024-07-10] MEDS: Metoprolol CR 25 MG TABCR PO ×2 (09:08→21:40)
[2024-07-10] MEDS: Docusate Sodium 100 MG CAP PO (09:08)
[2024-07-10] MEDS: MORPHine Oral Concentrate 20 MG/ML PO ×3 (09:08→17:32)
[2024-07-10] MEDS: Pantoprazole 40 MG TABCR PO (09:08)
[2024-07-10] MEDS: Insulin Aspart 300 UNITS/3 ML PEN SC ×4 (09:11→22:58)
--- NOTE | 2024-07-10 09:40 | PDOC.CMPRO ---
Date of service: 07/10/24 Time of Service: 09:40 Care Management Progress Note Progress Note Text Progress Note Text: Sav was lying in bed when CM met with him. He was scheduled to be discharged home today with a resumption of home health services for nursing and OT. Unfortunately, Sav has not had a BM in 6 days according to him. He was given a laxative on 07/08 with no effect and lactulose last evening and this morning. Additional bowel meds were ordered as well as an enema. By the end of the day, Sav had still not had a BM so the decision was made to postpone his discharge until tomorrow. Tonight he will receive more medication to address the problem and an enema in the morning if other measures are unsuccessful. Sav is still not sure what his future healthcare goals will look like. He informed CM that his potassium is too high and if they can't bring it down, he may need dialysis. He stated he is not sure if he wants to take that path or not. For now, he will continue with treatment and see what happens. He may choose to go on comfort care or hospice in the future but will not make any different decisions in the short term. Discharge Potential Discharge Needs: PCP F/U Appt and Other (possibly hospice) Anticipated Barriers to Discharge: None Identified Patient/Family Education Needs: Review discharge instructions, discuss Ask Me Three Transportation: Private vehicle Plan: Anticipate Sav will return home, with a resumption of services. His transportation will depend on his mobility; private vehicle vs w/c van. He will follow up with his community providers and discharge plan of care. CM will continue to follow and support discharge planning needs.. SDOH(Care Management) Screening Will the Patient Participate in the Screening?: Declined to provide Do you worry about having a steady place to live?: no In the past 12 months, have you had to go without electric, gas, oil or water in your home?: no Have you or anyone in your house had to go without enough food to eat?: no Has lack of transportation kept you from medical appointments or from doing things needed for daily living?: no Has anyone in your support network made you feel unsafe for any reason?: no
[2024-07-10] MEDS: Polyethylene Glycol 3350 17 GM PACKET PO (10:20)
[2024-07-10] MEDS: Normal Saline 500 ML 30 ML IV (12:17)
[2024-07-10] MEDS: cefTRIAXone 2 GM/50 ML BAG IVPB (12:18)
[2024-07-10] MEDS: Normal Saline Flush 10 ML SYR IVP (12:19)
--- NOTE | 2024-07-10 12:24 | PT.INTREAT ---
PT Notes Visit Reasons: Dehydration, UTI, Hyperkalemia, KENNETH Inpatient Physical Therapy Treatment Note [facility] Date: 07/10/2024 PRECAUTIONS:CLARICE griffin SUBJECTIVE: Patient reports he may be going home today agreeable to participate and requesting to try transfer to the commode OBJECTIVE: Supine in bed. ? PAIN: Pain in right shoulder patient unable to use numeric scale reports it hurts a little if I move it the wrong way inpatient PT this is Keturah she is not not known 90 okay okay VITALS: ?monitored by Nursing/telemetry Therapeutic Activities (07730l1): Direct one-on-one instruction in dynamic activities to improve functional performance. ? BED MOBILITY/TRANSFERS?( 2nd session) ? Rolling L/R: max assist of 3? Supine?sit; max assist of 1 with head of bed up? Sit-supine: max A of 2 Sit-stand: Mod assist of 2 x 4 trials ? Stand-sit: Mod assist of 2? ?x 4 trials ? Bed- commode : ? ?Unable to unweight lower extremities ? Provided skilled cues and instruction on performance and technique throughout. ? Therapeutic Exercises (40652r2): Direct one-on-one instruction in therapeutic exercises to develop strength, endurance, range of motion and flexibility. (1st session) ? Exercises 10 reps ? RUE : AAROM: elbow extension, pronation/supination, wrist flexion/extension, thumb opposition to all digits. finger flexion and extension BLE Quad sets, ankle pumps ? Provided skilled instruction in proper exercise performance Provided skilled manual cues to facilitate proper muscle recruitment and/or form: ASSESSMENT: Patient continues to demonstrate reduction in swelling in right thumb fingers and wrist stockinette remains off of upper extremity. He demonstrated increased ability getting lower extremities to edge of bed requiring max assist of 1 and the head of bed elevated as compared to prior sessions with need of 3 assist. Attempted stand assist lift however unsuccessful due to patient girth. For skin integrity purposes lift was not appropriate. Patient unable to perform unweighting of lower extremities to advance for step turn transfer this session despite 3 assist present. Patient continues to require 2-3 assist for transfers when able. Concern for 's ability to provide assistance for transfers. Therefore if returns home bed level care would be recommendeduntil further assessment of his ability to move within his home is performed by home services PT PLAN:continue with strengthening functional mobility as pt allows in prep for discharge to home TREATMENT CODE/TIME: 09223 14 mins, 92433 41 minutes/1005?1100 DISCHARGE RECOMMENDATION: Home with with supportive hospice services vs SNF when medically appropriate
[2024-07-10] MEDS: Bisacodyl 5 MG TABEC PO (14:46)
[2024-07-10] MEDS: Methylnaltrexone 12 MG/0.6 ML VIAL SC (14:46)
[2024-07-10] MEDS: Mineral Oil-Enema 133 ML BTL PR ×2 (14:46→22:43)
--- NOTE | 2024-07-10 14:59 | PT.INTREAT ---
PT Notes Visit Reasons: Dehydration, UTI, Hyperkalemia, KENNETH Inpatient Physical Therapy Treatment Note [facility] Date: 07/10/24 SUBJECTIVE: Sav agrees to exercises in bed. Getting up did not work so well this morning. OBJECTIVE: []? VITALS: ?monitored by nsg ? Therapeutic Exercises ([id number]): Direct one-on-one instruction in therapeutic exercises to develop strength, endurance, range of motion and flexibility. ? Exercises ? AP, SLR, heel slides, hip AB/ADD x20. Bridging x10 (required his feet to be held down). UE press ups x20, chicken wing x10 and bicep curls x10. Provided skilled instruction in proper exercise performance ASSESSMENT:?tolerated ex quite well. Is relatively independent with them as they are familiar to him from past hospital stays. PLAN: will continue to progress his strength and functional mobility to tolerance following PT POC. TREATMENT CODE/TIME: 20 min. [id number]
--- NOTE | 2024-07-10 18:04 | NUR.NOTE ---
Nursing Note: Patient administered MS early post disimpaction and repositioning in bed. Patient requires a hover mat and 4 people to reposition him.
--- NOTE | 2024-07-10 18:08 | NUR.NOTE ---
Nursing Note:Patient reported 5+days with no bowel movement. MD ordered oral,sq, and rectal bowel meds. Pt tolerated enema with difficulty. Pt required manual disimpaction, stool hard, unable to pass on his own. 4 small-med size light brown stool, stool hard and rocklike. Guiac negative at bedside. Specimen sent to lab. Pt in distress post procedure. MD aware. Pt given a short break for meds to take effect and eat dinner.
--- NOTE | 2024-07-10 19:39 | PGE_ITS ---
Date of Service Date of service: 07/09/24 (This note was recreated on 07/10/24 as it was missed on rounds on 07/09 but reflect my actual visit w/ the patient, visit was done w/ the nurse behavioral health care present) Time of Service: 15:30 Assessment and Plan Assessment and plan (1) Acute UTI: Status: Acute Assessment and plan: recurrent UTI complicated by chronic indwelling griffin catheter. Griffin catheter was changed yesterday and urine is clearing up continue ceftriaxone but increase to 2 g IV daily. Unfortunately no blood cultures were obtained in the emergency department growing gram negative rods in the urine one colony >100,000 colonies, the other <10,000; continue ceftriaxone 2 gm daily (2) Acute hyperkalemia: Status: Acute Assessment and plan: patient was not on an MIS-I nor ARB nor on potassium sparing diuretic when he was admitted. he has been treated w/ Lokelma and K now down to 4.8 (3) KENNETH (acute kidney injury): Status: Acute Assessment and plan: BUN 56 and creatinine 5.3 unchanged from admission, I think this is his new baseline fxn. He did not have any improvement w/ limited fluid boluses. I will continue to hold his diuretics for now but will need to resume them soon to prevent CHF exacerbation. Renal US yesterday did not show any hydrnephrosis or obstruction although he has bilateral nephrolithiasis (4) Obstructive uropathy: Status: Chronic Assessment and plan: patient continues to need griffin catheter for ongoing post bladder obstruction from BPH. 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 I have resumed his home dose of Toprol XL and resumed his apixaban for stroke prophylaxis Qualifiers: Atrial fibrillation type: unspecified chronic Qualified Code(s): I48.20 - Chronic atrial fibrillation, unspecified (7) CHF (congestive heart failure): Assessment and plan: Last echocardiogram that was formally obtained here was performed on 05/22/2024 but was poor image with poor endocardial definition. Overall LV function was globally normal with an estimated EF of 55% however given the poor definition I am sure how that could be adequately interpreted. RV appeared grossly normal in size and function. I will continue to withhold his diuretics while we give him gentle hydration and recheck his electrolytes and BUN/creatinine Qualifiers: Heart failure type: diastolic Heart failure chronicity: chronic Qualified Code(s): I50.32 - Chronic diastolic (congestive) heart failure (8) LUCAS on CPAP: Assessment and plan: continue home CPAP/BIPAP (9) Diabetes mellitus type 2 in obese: Assessment and plan: Continue basal bolus dosing of insulin. Monitor blood sugars ACHS (10) BPH (benign prostatic hyperplasia): Assessment and plan: continue griffin however needs changed out in setting of recurrent UTI. Qualifiers: Lower urinary tract symptom presence: symptoms present Lower urinary tract symptom detail: urinary retention Qualified Code(s): N40.1 - Benign prostatic hyperplasia with lower urinary tract symptoms; R33.8 - Other retention of urine (11) GERD (gastroesophageal reflux disease): Assessment and plan: continue PPI Qualifiers: Esophagitis presence: esophagitis presence not specified Qualified Code(s): K21.9 - Gastro-esophageal reflux disease without esophagitis (12) DVT prophylaxis: Status: Acute Assessment and plan: DC heparin and resume his home dose of apixaban Subjective Subjective Interval history since last seen: Patient desiring to go home. He refuses to consider SNF. He refused his antibiotic this morning. I met w/ him along w/ the nurse behavioral health care, Marily. He has agreed to stay one more day. His (louie Calixto) wants him to go home on hospice. He wants to think about hospice but does not want hospice consult as yet. 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 Objective Last Vital Signs Temp 36.4 C L 07/10/24 19:29 Pulse 79 07/10/24 19:29 Resp 20 07/10/24 19:29 BP 99/68 L 07/10/24 19:29 Pulse Ox 97 07/10/24 19:29 Laboratory Results - last 24 hr 07/10/24 06:15 Sodium 135 L Potassium 4.6 Chloride 100 Carbon Dioxide 25.3 Anion Gap 9.7 BUN 51 H Creatinine 5.3 H* Est GFR (CKD-EPI 2021) 10.03 Glucose 147 H Calcium 9.1 Time Spent with Patient Time Spent with Patient: 25-34 minutes Time was spent: preparing to see the patient(eg.review tests), ordering medications,tests, procedures, referring, communicating with other health clinical care manager (nurse behavioral health care, Marily Ferguson, nursing), indepentently interpreting results, counseling the patient and care coordination
--- NOTE | 2024-07-10 19:59 | W.PM.PROGNOT ---
Date of Service Date of service: 07/10/24 Time of Service: 16:00 Assessment and Plan Assessment and plan (1) Fecal impaction in rectum: Status: Acute Assessment and plan: nursing did partial disimpaction, he will need further enemas tonight. I have also ordered high dose Miralax for his constipation. (2) Constipation: Status: Chronic Qualifiers: Constipation type: slow transit constipation Qualified Code(s): K59.01 - Slow transit constipation (3) Acute UTI: Status: Acute Assessment and plan: recurrent UTI complicated by chronic indwelling griffin catheter. Griffin catheter was changed on admission and urine is clearing up continue ceftriaxone but increase to 2 g IV daily. No blood cultures obtained on admission but urine culture is growing Serratia marsescens, he has nonobstructive kidney stones; He should be referred to urology for follow up as he may need lithotripsy to remove the kidney stones given his propensity for recurrent UTI. (4) Acute hyperkalemia: Status: Acute Assessment and plan: home meds do not include any meds that cause hyperkalemia. patient completed treatment of his Lokelma, K+ now 4.6 (5) KENNETH (acute kidney injury): Status: Acute Assessment and plan: I think that he does not have KENNETH but rather just progression of his CKD. There was not change in his BUN and creatinine since admission despite witholding his diuretics and giving small boluses of fluids. BUN 51 and creatinine 5.3 (was 56 and 5.2 on admisson, this has been a rise over his previous baseline readings of 4.5 to 4.8 I will resume his torsemide (6) Obstructive uropathy: Status: Chronic Assessment and plan: patient continues to need griffin catheter for ongoing post bladder obstruction from BPH. 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: Assessment and plan: As above (8) Atrial fibrillation: Assessment and plan: Rate seems to be well-controlled. I have resumed his home dose of Toprol XL and resumed his apixaban for stroke prophylaxis Qualifiers: Atrial fibrillation type: unspecified chronic Qualified Code(s): I48.20 - Chronic atrial fibrillation, unspecified (9) CHF (congestive heart failure): Assessment and plan: Last echocardiogram that was formally obtained here was performed on 05/22/2024 but was poor image with poor endocardial definition. Overall LV function was globally normal with an estimated EF of 55% however given the poor definition I am sure how that could be adequately interpreted. RV appeared grossly normal in size and function. REsume diuretics as there has been no improvement in his renal function despite witholding diuretics and even after couple iv boluses of fluid Qualifiers: Heart failure type: diastolic Heart failure chronicity: chronic Qualified Code(s): I50.32 - Chronic diastolic (congestive) heart failure (10) LUCAS on CPAP: Assessment and plan: continue home CPAP/BIPAP (11) Diabetes mellitus type 2 in obese: Assessment and plan: Continue basal bolus dosing of insulin. Monitor blood sugars ACHS (12) BPH (benign prostatic hyperplasia): Assessment and plan: griffin changed on admission; needs monthly change Qualifiers: Lower urinary tract symptom presence: symptoms present Lower urinary tract symptom detail: urinary retention Qualified Code(s): N40.1 - Benign prostatic hyperplasia with lower urinary tract symptoms; R33.8 - Other retention of urine (13) GERD (gastroesophageal reflux disease): Assessment and plan: continue PPI Qualifiers: Esophagitis presence: esophagitis presence not specified Qualified Code(s): K21.9 - Gastro-esophageal reflux disease without esophagitis (14) DVT prophylaxis: Status: Acute Assessment and plan: continue apixaban for afib/stroke prevention Subjective Subjective Interval history since last seen: Sav was supposed to be discharged this afternoon but apparently had not had BM this admission despite being on stool softeners and laxatives. The plan has been for him to go home w/ home heatlh services then consult hospice as outpatient if he and his agree. Exam Narrative Exam Narrative: Sav is sitting up in bed, he denies any pain or dyspnea. No nausea or vomiting. When asked if he has passed gas or BM, he replies I am working on it Lungs remain clear Heart: distant heart tones but irregularly irregular, controlled rate Abdomen: obese, soft, nontender, no guarding, active bowel sounds present Griffin draining clear yellow urine Extremities: right hand w/ trace edema of the hand and nuckles but better today; legs: trace of pitting edema in feet and lower tibia; chronic venous skin changes Objective Last Vital Signs Temp 36.4 C L 07/10/24 19:29 Pulse 79 07/10/24 19:29 Resp 20 07/10/24 19:29 BP 99/68 L 07/10/24 19:29 Pulse Ox 97 07/10/24 19:29 Laboratory Results - last 24 hr 07/10/24 06:15 Sodium 135 L Potassium 4.6 Chloride 100 Carbon Dioxide 25.3 Anion Gap 9.7 BUN 51 H Creatinine 5.3 H* Est GFR (CKD-EPI 2020) 10.03 Glucose 147 H Calcium 9.1 Time Spent with Patient Time Spent with Patient: 25-34 minutes Time was spent: preparing to see the patient(eg.review tests), ordering medications,tests, procedures, referring, communicating with other health healthcare advisory services manager, indepentently interpreting results, counseling the patient and care coordination
[2024-07-10] MEDS: Melatonin 3 MG TAB 4.5 MG PO (21:40)
[2024-07-10] MEDS: Gabapentin 100 MG CAP 200 MG PO (21:40)
[2024-07-10] MEDS: Tamsulosin 0.4 MG CAPCR PO (21:40)
[2024-07-10] MEDS: Senna TAB 1 TAB PO (21:41)
[2024-07-10] MEDS: Torsemide 20 MG TAB PO (21:41)
[2024-07-10] MEDS: Pravastatin 40 MG TAB PO (21:41)
[2024-07-10] MEDS: Polyethylene Glycol 3350 238 GM BTL PO (22:44)
[2024-07-10] MEDS: Insulin Glargine 300 UNITS/3 ML PEN 30 UNITS SC (22:59)
[2024-07-10] MEDS: Patch Removal 2 EACH TP (23:15)
[2024-07-11 06:44] LABS: Anion Gap 9.7 mmol/L (3-11); BUN 52 mg/dL (7-18); CO2 23.3 mmol/L (21.0-32.0); Calcium 9.1 mg/dL (8.5-10.1); Chloride 99 mmol/L (98-107); Estimated GFR 10.76 (mL/min/1.73m2); Glucose 144 mg/dL (74-106); Potassium 4.1 mmol/L (3.5-5.1); Sodium 132 mmol/L (136-145)
[2024-07-11] MEDS: Folic Acid 1 MG TAB 2 MG PO (09:59)
[2024-07-11] MEDS: Metoprolol CR 25 MG TABCR PO ×2 (09:59→20:17)
[2024-07-11] MEDS: Multivitamin w/Minerals TAB 1 TAB PO (09:59)
[2024-07-11] MEDS: Pantoprazole 40 MG TABCR PO (10:00)
[2024-07-11] MEDS: Finasteride 5 MG TAB PO (10:00)
[2024-07-11] MEDS: Torsemide 20 MG TAB PO (10:01)
[2024-07-11] MEDS: Lidocaine 5% Patch 2 PATCH TP (10:03)
[2024-07-11] MEDS: Apixaban 2.5 MG TAB PO ×2 (10:05→20:16)
[2024-07-11] MEDS: Insulin Aspart 300 UNITS/3 ML PEN SC ×4 (10:09→21:13)
[2024-07-11 11:04] VITALS: BP 104/71; PULSE 82; RESP 20; TEMP 36.3; O2SAT 97
[2024-07-11] MEDS: Normal Saline Flush 10 ML SYR IVP ×2 (12:05→20:17)
[2024-07-11] MEDS: cefTRIAXone 2 GM/50 ML BAG IVPB (12:14)
--- NOTE | 2024-07-11 13:04 | DSE_ITS ---
Date of service: 07/11/24 Time of Service: 13:05 DS: Diagnosis Discharge Diagnosis (1) Acute hyperkalemia: Status: Acute (2) Acute UTI: Status: Acute (3) Fecal impaction in rectum: Status: Acute (4) Constipation: Status: Chronic (5) KENNETH (acute kidney injury): Status: Acute (6) Obstructive uropathy: Status: Chronic 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: (8) Atrial fibrillation: (9) CHF (congestive heart failure): (10) LUCAS on CPAP: (11) Diabetes mellitus type 2 in obese: (12) BPH (benign prostatic hyperplasia): (13) GERD (gastroesophageal reflux disease): Discharge Plan Disposition Patient Disposition: Home W/Home Health Services Condition: Improving Discharge Details Reason For Visit: Dehydration, UTI, Hyperkalemia, KENNETH Admit Date/Time: 07/07/24 17:32 Admit Provider: Robert Traore Attending Provider: Robert Traore Primary Care Provider: Gordo Dominguez Home Meds and New Rx's Prescriptions: New levofloxacin 500 mg tablet 500 mg PO Q48H 6 Days Qty: 3 0RF Continued morphine concentrate 100 mg/5 mL (20 mg/mL) solution 5 - 20 mg PO Q4H MDD 480 PRN (Reason: pain) Qty: 30 0RF Patient Comments: use only as needed (DME) blood-glucose meter [OneTouch Ultra2 Meter] 1 EACH kit 1 ea Miscellaneous DAILY Qty: 1 (DME) lancets [OneTouch UltraSoft Lancets] misc 1 ea Miscellaneous DAILY Qty: 90 4RF Rx Instructions: test daily before breakfast melatonin 5 mg capsule 5 mg PO HS (DME) OneTouch Ultra Test Strip 1 ea Miscellaneous DAILY Qty: 90 3RF Rx Instructions: test daily before breakfast lactulose 10 gram packet 10 g PO DAILY PRN (Reason: constipation) Qty: 30 1RF (DME) FreeStyle Shantell 2 Sensor Kit See Rx Instructions .MEDSUPPLY Qty: 1 11RF Rx Instructions: As directed insulin glargine [Lantus Solostar U-100 Insulin] 100 unit/mL (3 mL) insulin pen 30 unit SUBCUT HS Rx Instructions: Decrease per [facility] [place] [facility]. 06/12/23. -hb nitroglycerin 0.4 mg tablet, sublingual 0.4 mg sublingual Q5M PRN (Reason: chest pain) Qty: 25 0RF Rx Instructions: take as needed q 5 mins for c/p until gone if take 3 pills and pain persists, call (BIMAL) Obdulia Stinson 2 [facility] See Rx Instructions .MEDSUPPLY Qty: 1 0RF Rx Instructions: As directed metolazone 5 mg tablet 5 mg PO .q , Sat PRN (Reason: weight gain 3lbs/day or 7 lbs/week) Qty: 30 2RF tamsulosin 0.4 mg capsule 0.4 mg PO HS Qty: 90 3RF finasteride 5 mg tablet 5 mg PO DAILY Qty: 90 3RF (DME) pen needle, diabetic [Comfort EZ Pen [place]] 33 gauge x 3/16 needle See Rx Instructions .ROUTE .MEDSUPPLY Qty: 400 3RF Rx Instructions: inject 4 x/day metoprolol succinate [Toprol XL] 100 mg tablet extended release 24 hr 25 mg PO BID Qty: 45 3RF Rx Instructions: 07/03/[address] Dominguez. -hb pravastatin 40 mg tablet 40 mg PO QPM Qty: 90 3RF gabapentin 100 mg capsule 200 mg PO HS Qty: 180 3RF pantoprazole 40 mg tablet,delayed release (DR/EC) 40 mg PO DAILY Eliquis 2.5 mg tablet 2.5 mg PO BID Qty: 14 0RF acetaminophen [Tylenol] 325 mg Tablet 650 mg PO Q4H PRN PRNQty: 0 0RF insulin aspart U-100 [Novolog FlexPen U-100 Insulin] 100 unit/mL (3 mL) insulin pen 20 sliding scale dose SUBCUT DIRECTED Patient Comments: has not needed for a while due to not eating enough Rx Instructions: -No rapid acting insulin with breakfast or lunch. -20 units + SSI 2:50>150 with dinner. polyethylene glycol 3350 17 gram Powder In Packet 17 g PO DAILY Qty: 0 0RF Daily Multivitamin with Iron 18-400 mg-mcg tablet 1 tab PO DAILY diclofenac sodium 3 % Gel 100 g topical QID Qty: 0 0RF lidocaine 5 % Adhesive Patch,Medicated 2 patch topical Q24H Qty: 0 0RF Patient Comments: Apply to right knee docusate sodium [Colace] 100 mg capsule 100 mg PO DAILY Changed torsemide 20 mg tablet 20 mg PO DAILY Qty: 0 0RF Discharge Instructions Instructions: How to Prevent Catheter Associated Urinary Tract Infections, Low- potassium diet, Urinary Tract Infection, Adult ED Additional Instructions: You are found to have a recurrent urinary tract infection.Your Knox catheter was changed and the urine culture grew Serratia which we treated with ceftriaxone. You will be discharged home on Levaquin 500 mg every other day for 3 doses. You should arrange telehealth visit with Dr. Santos as well as your primary care provider in the next week. You were also treated for hyperkalemia this is an elevated potassium level caused by your worsening kidney function. Your potassium level peaked at 5.9 mmol/L and you were treated with Lokelma which brought your potassium level down to 4.1. You should have a repeat lab work next week including a BMP. We will ask the visiting nurse to draw this lab work and sent to your primary care provider. Avoid high potassium foods you should be on a diabetic/renal diet. Referrals: Naveen Santos MD [ [facility] STAFF PHYSICIAN] - Gordo Dominguez MD [Primary Care Provider] - Activity:: Activity as Tolerated Equipment/Supplies:: No Equipment Needed Diet:: Carb Counting Discharge Orders Discharge Orders: Discharge Order (Routine); Ordered 07/11/24 Ordered By: Robert Traore Other Ambulatory Orders: Urinalysis (Routine) Timeframe: 1 Week Facility: [facility] - Location: Laboratory Outpatient - [facility] Ordered By: Robert Traore Basic Metabolic Panel (Routine) Timeframe: 1 Week Facility: [facility] - Location: Laboratory Outpatient - [facility] Ordered By: Robert Traore DS: Summary Time Spent with Patient providing and/or coordinating discharge services: Greater than 30 minutes Specific discharge activities: Interview/exam of patient; review of discharge instructions, completion of prescriptions/discharge instructions; discussion w/ nursing and CM; documentation of hospital visit Status at Discharge Functional status at discharge: wheelchair bound Overall status at discharge: patient is progressing back to baseline Mental Status: mental status grossly normal Speech and Movement: speech and movement normal Mood: congruent mood Affect: normal affect Quality:SDOH Health Related Social Needs: Health related social needs risk of homeless Exam Psych Mental Status: mental status grossly normal Speech and Movement: speech and movement normal Mood: congruent mood Affect: normal affect DS: Data Vitals/I&O Vitals and I&O: Vital Signs Temperature 36.3 C L 07/11/24 11:04 Temperature Source Tympanic 07/11/24 11:04 Pulse 82 07/11/24 11:04 Pulse Rhythm Irregular 07/11/24 11:04 Pulse 71 07/07/24 14:30 Respiratory Rate 20 07/11/24 11:04 Respiratory Effort Short of Breath 07/11/24 11:04 Respiratory Depth Shallow 07/11/24 11:04 Respiratory Pattern Normal 07/11/24 11:04 Blood Pressure 104/71 07/11/24 11:04 Blood Pressure Mean 78 07/07/24 11:45 Blood Pressure Position Supine 07/07/24 11:31 Pulse Oximetry 97 07/11/24 11:04 Oxygen Delivery Method Room Air 07/11/24 11:04 Oxygen Flow Rate 0 07/11/24 11:04 Fraction of Inspired Oxygen (FIO2) 21 07/10/24 23:14 Pain Level 5 07/11/24 11:04 Comment VS gathered prior to digital removal of impaction. BP cuff placed on rt. forearm. 07/10/24 17:04 Intake & Output 07/10/24 07/11/24 07/11/24 23:59 11:59 23:59 Intake Total 821.5 / 1301.5 200 / 200 Output Total 650 / 1300 1250 / 1250 Balance 171.5 / 1.5 -1050 / -1050 Intake: IV 341.5 / 341.5 Oral 480 / 960 200 / 200 Output: Urine 650 / 1300 1250 / 1250 Other: Urine Color Pale Pale Yellow Yellow Urine Appearance Sediment Clear Mucous Threads Purulent Urine Odor Normal Strong Stool Occult Blood Negative Stool Size Moderate Moderate Stool Characteristics Hard Soft Brown Brown Voiding Methods Incontinent Incontinent Indwelling Catheter Data Completed and Pending Labs on day of discharge: Labs from last 24 hours 07/11/24 06:10 Sodium 132 L Potassium 4.1 Chloride 99 Carbon Dioxide 23.3 Anion Gap 9.7 BUN 52 H Creatinine 5.0 H* Est GFR (CKD-EPI 2020) 10.76 Glucose 144 H Calcium 9.1 PFSH All Active Problems Fecal impaction in rectum (Acute) Palliative care encounter (Acute) Itching (Acute) ACP (advance care planning) (Acute) DVT prophylaxis (Acute) Acute hyperkalemia (Acute) Acute UTI (Acute) KENNETH (acute kidney injury) (Acute) Pain (Acute) Periprosthetic fracture around internal prosthetic right knee joint (Acute) Loose right total knee arthroplasty (Acute) Right knee pain (Acute) Acute UTI (Acute) Edema (Acute) Cloudy urine (Acute) Lesion of pancreas (Acute) Obstructive uropathy (Chronic) 06/12/23 Per [facility] [place]. -hb Need for home health care (Acute) History of fall (Acute) Noninfected skin tear of left lower extremity (Acute) Fall (Acute) Skin tear of left lower leg without complication (Acute) Hyperkalemia (Acute) VRE (vancomycin resistant enterococcus) culture positive (Acute) Hydronephrosis, left (Acute) Hyperphosphatemia (Acute) Pressure ulcer of right ischium (Acute) Chronic indwelling Knox catheter (Acute) Acute renal failure (Acute) Acute UTI (Acute) Chronic kidney disease (Chronic) 2020- borderline stage 4 Venous insufficiency (chronic) (peripheral) (Acute) Nail dystrophy (Acute) COVID-19 (Acute ~08/05/22) Thumb pain (Acute) Right heart failure (Acute) Urinary retention (Acute) 11/2021, ultrasound shows significant pretty and post void residual- minimal response to voiding Anemia (Chronic) Chronic mild anemia, associated with CKD Obstructive sleep apnea (Chronic) cpap Acute on chronic heart failure with preserved ejection fraction (Acute) Hives (Acute) Obesity (Acute 02/11/13) Obstructive nephropathy (Acute) Moderate pulmonary arterial systolic hypertension (Chronic) Chronic anticoagulation (Chronic) Polyp of colon (Chronic) Rosacea (Chronic) Constipation (Chronic) Medical History CKD (chronic kidney disease) stage 5, GFR 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 Deficit in activities of daily living (ADL) Kidney stones Longstanding history of multiple stones 11/2021 ultrasound showed multiple stones in kidney, 1 stone possibly in right ureter Atrial fibrillation on coumadin Diabetes mellitus CHF (congestive heart failure) 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 Daughter No problems noted. Social History Smoking/Tobacco Use Status: Never Second Hand Exposure: No Smoking risk assessment performed?: Yes Alcohol Intake: current Alcohol Intake frequency: holidays/special occasions only Drug use: Never Substance use type: does not use Caregiver/Support person: Yes Household members: spouse Housing: house Communication Needs: Hard of Hearing Do you need help understanding health information?: Often Pets and animals: No Sexually active: No What is your relationship status?: How often do you talk on the phone with friends or family?: decline to answer How often do you get together with friends or relatives?: decline to answer How often do you attend baptist or anabaptist services?: decline to answer Do you belong to any clubs or organized social groups?: decline to answer Panel score (0-1 are the most socially isolated patients): 1 What type of physical activity do you participate in: walking Duration: < 15 minutes/day Frequency: daily Special amor needs: No Do you feel safe at home: Yes Do you feel safe in your relationship?: Yes Time Spent with Patient Time Spent with Patient: 45-69 minutes Time was spent: preparing to see the patient(eg.review tests), ordering medications,tests, procedures, referring, communicating with other health manager primary care, indepentently interpreting results, counseling the patient and care coordination
--- NOTE | 2024-07-11 13:06 | PDOC.HHF2F ---
Home Health Referral Registered Nurse: Check all that apply Instruct on new or changed medication(s)/assess compliance: Ordered Instruct on, and maintenance of, urinary device: Ordered Assess for exacerbation of medical condition, instruct patient/caregivers on signs and symptoms to report for early detection: Ordered Physical Therapist: Check all that apply Increase strength & endurance for safe mobility at home: Ordered To design/establish home maintenance program: Ordered Fall reduction therapy program for patient with history of frequent falls: Ordered Home safety evaluation and teaching/gait training including stair management (if applicable): Ordered Occupational Therapist: Evaluate and treat for patient unable to perform ADL/IADL/self-care: Ordered Shank Boner: Assist with community resources: Ordered Home Bound Status Requires the aid of supportive device (check all that apply): Walker Encounter Date and Reason: I certify that a FTF encounter for this patient was performed on July 11, 2024 and that such encounter was related to the primary reason the patient requires home health services. The encounter was conducted in the following manner: By me as the certifying physician, AIRCRAFT STEEL FABRICATOR, PA or By an inpatient physician, AIRCRAFT STEEL FABRICATOR or PA during an inpatient stay who communicated findings to me, Certification And Authentication I certify that I composed the above information based on my clinical judgment relating to this patient's medical condition and, if applicable, clinical findings communicated to me by the NPP or inpatient physician who performed the FTF encounter.
[2024-07-11] MEDS: levoFLOXacin 500 MG, levoFLOXacin 250 MG 750 MG PO (13:12)
--- NOTE | 2024-07-11 13:22 | PT.INTREAT ---
PT Notes Visit Reasons: Dehydration, UTI, Hyperkalemia, KENNETH Date: 07/11/24 SUBJECTIVE:Pt in bed when approached for therapy this morning, agreed to bed level exercises. OBJECTIVE: []? VITALS: monitored by nsg ? Therapeutic Exercises [id number]: Direct one-on-one instruction in therapeutic exercises to develop strength, endurance, range of motion and flexibility. Exercises AP, SLR, heel slides, hip AB/ADD x20. Bridging x10 (required his feet to be held down). UE press ups x20, chicken wing x10 and bicep curls x10. Provided skilled instruction in proper exercise performance ASSESSMENT: good carry over with exercise only requiring foot to be held stationary to complete bridging. PLAN: will continue to progress his strength and functional mobility to tolerance following PT POC. TREATMENT CODE/TIME: [id number] 15mins (11:15-11:30am)
--- NOTE | 2024-07-11 15:14 | PGE_ITS ---
Date of Service Date of service: 07/11/24 Time of Service: 15:14 Assessment and Plan Assessment and plan (1) Fecal impaction in rectum: Status: Acute Assessment and plan: resolved. I will dc his scheduled senna and miralax but continue him on metamucil. he is now having diarrhea; I have ordered stool for C difficile (2) Constipation: Status: Chronic Assessment and plan: no longer constipated but will put him on metamucil to prevent constipation Qualifiers: Constipation type: slow transit constipation Qualified Code(s): K59.01 - Slow transit constipation (3) Acute UTI: Status: Acute Assessment and plan: will switch to po Levaquin (4) Acute hyperkalemia: Status: Acute Assessment and plan: home meds do not include any meds that cause hyperkalemia. patient completed treatment of his Lokelma, K+ now 4.1 (5) KENNETH (acute kidney injury): Status: Acute Assessment and plan: I think that he does not have KENNETH but rather just progression of his CKD. There was not change in his BUN and creatinine since admission despite witholding his diuretics and giving small boluses of fluids. BUN 51 and creatinine 5.3 (was 56 and 5.2 on admisson, this has been a rise over his previous baseline readings of 4.5 to 4.8 I have resumed his torsemide (6) Obstructive uropathy: Status: Chronic Assessment and plan: patient continues to need griffin catheter for ongoing post bladder obstruction from BPH. 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: Assessment and plan: As above (8) Atrial fibrillation: Assessment and plan: Rate seems to be well-controlled. I have resumed his home dose of Toprol XL and resumed his apixaban for stroke prophylaxis Qualifiers: Atrial fibrillation type: unspecified chronic Qualified Code(s): I48.20 - Chronic atrial fibrillation, unspecified (9) CHF (congestive heart failure): Assessment and plan: Last echocardiogram that was formally obtained here was performed on 05/22/2024 but was poor image with poor endocardial definition. Overall LV function was globally normal with an estimated EF of 55% however given the poor definition I am sure how that could be adequately interpreted. RV appeared grossly normal in size and function. REsume diuretics as there has been no improvement in his renal function despite witholding diuretics and even after couple iv boluses of fluid Qualifiers: Heart failure chronicity: chronic Heart failure type: diastolic Qualified Code(s): I50.32 - Chronic diastolic (congestive) heart failure (10) LUCAS on CPAP: Assessment and plan: continue home CPAP/BIPAP (11) Diabetes mellitus type 2 in obese: Assessment and plan: Continue basal bolus dosing of insulin. Monitor blood sugars ACHS (12) BPH (benign prostatic hyperplasia): Assessment and plan: griffin changed on admission; needs monthly change Qualifiers: Lower urinary tract symptom detail: urinary retention Lower urinary tract symptom presence: symptoms present Qualified Code(s): N40.1 - Benign prostatic hyperplasia with lower urinary tract symptoms; R33.8 - Other retention of urine (13) GERD (gastroesophageal reflux disease): Assessment and plan: continue PPI Qualifiers: Esophagitis presence: esophagitis presence not specified Qualified Code(s): K21.9 - Gastro-esophageal reflux disease without esophagitis (14) DVT prophylaxis: Status: Acute Assessment and plan: continue apixaban for afib/stroke prevention Subjective Subjective Interval history since last seen: Patient finally had a large bowel movement last night and continues to have bowel movements today. Patient was too weak to transfer out of bed this morning and therefore staff is concerned about him going home w/ his . His has assured staff she can handle him once he is home. Because of the ongoing diarrhea we will hold up his dc home and check stool C diff. Exam Narrative Exam Narrative: alert, oriented, no acute distress Lungs: clear anteriorly Heart: distant heart tones, irregularly irregular Abdomen: obese, soft, nontender Objective Last Vital Signs Temp 36.3 C L 07/11/24 11:04 Pulse 82 07/11/24 11:04 Resp 20 07/11/24 11:04 BP 104/71 07/11/24 11:04 Pulse Ox 97 07/11/24 11:04 Laboratory Results - last 24 hr 07/11/24 06:10 Sodium 132 L Potassium 4.1 Chloride 99 Carbon Dioxide 23.3 Anion Gap 9.7 BUN 52 H Creatinine 5.0 H* Est GFR (CKD-EPI 2020) 10.76 Glucose 144 H Calcium 9.1 Time Spent with Patient Time Spent with Patient: 25-34 minutes Time was spent: preparing to see the patient(eg.review tests), ordering medications,tests, procedures, referring, communicating with other health geriatric care manager, indepentently interpreting results and care coordination
--- NOTE | 2024-07-11 15:44 | CMPROGNOTE_ITS ---
Date of service: 07/11/24 Time of Service: 15:44 Care Management Progress Note Progress Note Text Progress Note Text: Sav was lying in bed when CM met with him. He had been constipated yesterday and was given various bowel meds as well as an enema. He was able to have a small BM yesterday and has had several more today. Sav is currently unable to stand and support himself. Nursing expressed concerns about his Lashawn's ability to care for him alone at home. Efforts to have him stand to see if he was able to transfer were met with resistance due to his current weakness and frequent BMs today. CM met with Sav and Lashawn and explored the options for tasneem miramontes. Lashawn reported that she feels confident that she can care for him at home as she has been doing so. She realizes he may not be a strong or as capable of transferring as he was. They have discussed the situation with Kathy Reeder, palliative METAL FABRICATOR HELPER, and their plan is to transition Sav to hospice if things become too difficult at home. Sav and Lashawn were both in agreement with that plan. CM also reminded them that, if need be, he could always go to rehab from home if that was something they wished to do. The plan now is for Sav to remain one more night then discharge tomorrow, likely via EMS. Discharge Potential Discharge Needs: PCP F/U Appt Anticipated Barriers to Discharge: Medical Status Patient/Family Education Needs: Review discharge instructions, discuss Ask Me Three Transportation: EMS Plan: Sav will be discharged home with home health services for RN, PT and OT. He will follow up with his PCP, Palliative Care and his plan of care. He will likely transport via EMS coordinated by CM. CM will follow and continue to assess for discharge needs. SDOH(Care Management) Screening Will the Patient Participate in the Screening?: Declined to provide Do you worry about having a steady place to live?: no In the past 12 months, have you had to go without electric, gas, oil or water in your home?: no Have you or anyone in your house had to go without enough food to eat?: no Has lack of transportation kept you from medical appointments or from doing things needed for daily living?: no Has anyone in your support network made you feel unsafe for any reason?: no
[2024-07-11] MEDS: Tamsulosin 0.4 MG CAPCR PO (20:16)
[2024-07-11] MEDS: Melatonin 3 MG TAB 4.5 MG PO (20:16)
[2024-07-11] MEDS: Pravastatin 40 MG TAB PO (20:16)
[2024-07-11] MEDS: Gabapentin 100 MG CAP 200 MG PO (20:17)
[2024-07-11 21:00] VITALS: RESP 20
[2024-07-11 21:05] VITALS: BP 92/61; PULSE 65; RESP 20; TEMP 36.3; O2SAT 97
[2024-07-11] MEDS: Patch Removal 2 EACH TP (21:14)
[2024-07-11] MEDS: Insulin Glargine 300 UNITS/3 ML PEN 30 UNITS SC (21:14)
[2024-07-11] MEDS: Psyllium PKT 1 EACH PO (22:19)
[2024-07-11 22:54] VITALS: PULSE 62; RESP 16; RESP 20; RESP 8; O2SAT 98
[2024-07-11 22:59] VITALS: O2SAT 97
[2024-07-12] MEDS: Pantoprazole 40 MG TABCR PO (07:30)
[2024-07-12 07:42] VITALS: BP 104/61; PULSE 61; RESP 20; TEMP 36; O2SAT 99
[2024-07-12] MEDS: Folic Acid 1 MG TAB 2 MG PO (10:02)
[2024-07-12] MEDS: Apixaban 2.5 MG TAB PO (10:02)
[2024-07-12] MEDS: Metoprolol CR 25 MG TABCR PO (10:03)
[2024-07-12] MEDS: Finasteride 5 MG TAB PO (10:03)
[2024-07-12] MEDS: Multivitamin w/Minerals TAB 1 TAB PO (10:03)
[2024-07-12] MEDS: Psyllium PKT 1 EACH PO (10:03)
[2024-07-12] MEDS: Torsemide 20 MG TAB PO (10:03)
[2024-07-12 11:37] VITALS: BP 96/46; PULSE 64; RESP 20; TEMP 36; O2SAT 96
--- NOTE | 2024-07-12 12:03 | PDOC.CMDIS ---
Date of service: 07/12/24 Time of Service: 12:04 LACE Index Scoring Tool Questions: Length of Stay (in days): 4 - 6 Was the patient admitted via the E.D.?: Yes Comorbidities: Diabetes w/o Complication, Congestive Heart Failure and Liver or Renal Disease E.D. Visits: 4 Answers: Total Score: 16 Risk of Readmission: High Risk Care Management Discharge Plan Reason for Hospitalization: UTI, KENNETH Discharge Plan: Sav will be discharged home with a resumption of home health services. He will follow up with his PCP, Palliative Care and his plan of care. Sav will transport via EMS ([facility]). Patient/Family Education Needs: Review discharge instructions, activity, limitations, follow up plan, discuss Ask Me Three Services Needed at Discharge: Home Health Care Services and Transportation SDOH Health Related Social Needs: Health related social needs risk of homeless
--- NOTE | 2024-07-12 12:50 | DSE_ITS ---
Date of service: 07/12/24 Time of Service: 12:50 DS: Diagnosis Discharge Diagnosis (1) Acute hyperkalemia: Status: Resolved Asessment and Plan: acute hyperkalemia d/t CKD, K+ 5.9 resolved to 4.1 after treatment w/ Lokelma. Initially was given insulin and calcium gluconate in the emergency room but did not have any acutely peaked T wave changes on his EKG. K has been stable for 3 days at 4.8 > 4.6 > 4.1 patient and his given information on renal/low K diet, repeat BMP next week (2) KENNETH (acute kidney injury): Status: Ruled-out Asessment and Plan: no evidence for acute KENNETH as his BUN and creatinine have remained unchanged from his ouptpatient levels however he is now at a new baseline w/ BUN 52 and creatinine 5.0 (3) CKD (chronic kidney disease) stage 5, GFR 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: Asessment and Plan: progressive stage 5 CKD current BUN 52 and creatinine 5.0, complicated by presenting w/ hyperkalemia but w/ no acute EKG changes. resolved after Lokelma, no identified source for the hyperkalemia other than diet and worsening renal fxn. He is not on potassium supplements, not on an ARB or MIS-I nor is he taking any potassium sparing diuretics. Patient needs to follow renal diet of low sodium low potassium. (4) Obstructive uropathy: Status: Chronic (5) Acute UTI: Status: Acute Asessment and Plan: secondary to indwelling griffin, griffin changed on admission, urine grew Serratia Marcescens, no blood cultures taken on admission, UTI treated w/ Ceftriaxone 2 gm daily x 5 d, will continue Levquin 500 mg q48h x 3 doses, which would equate to 11 days of therapy. Recommend repeat urinalysis and cultures upon completion of antibiotics. change griffin catheter q monthly or sooner if signs of infection. (6) Fecal impaction in rectum: Status: Resolved (7) Constipation: Status: Chronic (8) Atrial fibrillation: Asessment and Plan: stable chronic afib, continue current renal adjusted apixaban 2.5 mg bid, con tinue rate control w/ Toprol XL (9) CHF (congestive heart failure): Asessment and Plan: holding his diuretics and giving him judicious fluid boluses did not change his BUN and creatinine. he has been resumed on torsemide but at reduced dose of 20 mg daily, please repeat BMP next week (10) LUCAS on CPAP: (11) Diabetes mellitus type 2 in obese: Asessment and Plan: continue home insulin orders (12) BPH (benign prostatic hyperplasia): Asessment and Plan: continue griffin, follow up w/ telehealth visit w/ Dr. Santos, change griffin monthly or sooner if signs of infection (13) GERD (gastroesophageal reflux disease): Asessment and Plan: continue protonix Discharge Plan Disposition Patient Disposition: Home W/Home Health Services Condition: Improving Discharge Details Reason For Visit: Dehydration, UTI, Hyperkalemia, KENNETH Admit Date/Time: 07/07/24 17:32 Admit Provider: Robert Traore Attending Provider: Robert Traore Primary Care Provider: Gordo Dominguez Hospital Course Hospital Course: 83-year-old gentleman lives at home with his after recent stay at a long term facility, [facility] after being treated for complicated UTI secondary to chronic Griffin placement for urinary retention his comorbidities include obstructive sleep apnea, atrial fibrillation, chronic kidney disease stage V, followed by [facility] personal computer network analyst Dr. 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 Patient was brought in by ambulance from home out of his 's concern that he was developing another UTI as he was acting more confused, having dark robles colored urine that was cloudy. Patient was found to have purulent drainage from his Griffin catheter which was then changed. Urine culture was obtained although no blood cultures were obtained. Patient was begun on Rocephin 1 g IV daily and changed to 2 g daily per the admitting hospitalist.Patient was treated with ceftriaxone x 5 days from 07/07/2024 to 07/11/2024 and then switched to Levaquin on the day prior to discharge. He will be discharged on continued Levaquin 500 mg every 48 hours for 3 more doses.. Patient's admission labs showed an elevated potassium level of 5.8 with a BUN of 54 creatinine 5.3 and normal anion gap of 6. Bicarbonate level 28. Sodium level 136. EKG was obtained showed atrial fibrillation at a controlled rate with low voltages. There were no peaked T waves. Nevertheless the patient did receive calcium gluconate IV insulin and dextrose in the emergency department. Subsequently the admitting hospitalist started the patient on Lokelma patient received 6 doses Lokelma over the next 2 days with serial monitoring of his BMP. Potassium came down to 5.2 by the next day and subsequent levels were 4.8, 4.6 and finally the day prior to discharge was 4.1. His diuretics were withheld he was given some judicious small fluid boluses but in spite of this there was no change in his BUN and creatinine. His final BUN and creatinine were 52 and 5.0. This represents a progression in the degree of his chronic kidney disease. Renal ultrasound was obtained showed bilateral nephrolithiasis but no evidence of hydronephrosis. Because of his acute confusion CT was done on admission showed no acute abnormality he has chronic severe left-sided sinus disease. Chest x-ray on admission was a limited exam but showed clear lungs no pleural abnormalities. 2 days prior to discharge we will plan on discharge home at that time however the patient had not had a bowel movement he required multiple laxatives digital disimpaction of his rectum and enemas. Subsequent day he had severe diarrhea which resolved on its own. Physical therapy was consulted the patient they tried working with him and in the bed but patient still was maximal assistance of 2 people to get him out of bed. Patient is are offered referral to area long term facilities for continued rehab however both the patient and his declined referrals. His felt she could take care of him at home and she was interested in getting him on hospice. Patient was discharged in stable but improved condition on 07/12/2024. His mental status had cleared up rapidly with treatment of his infection and correction of his electrolyte abnormalities. Home Meds and New Rx's Prescriptions: New levofloxacin 500 mg tablet 500 mg PO Q48H 6 Days Qty: 3 0RF Continued morphine concentrate 100 mg/5 mL (20 mg/mL) solution 5 - 20 mg PO Q4H MDD 480 PRN (Reason: pain) Qty: 30 0RF Patient Comments: use only as needed (DME) blood-glucose meter [Talentauch Ultra2 Meter] 1 EACH kit 1 ea Miscellaneous DAILY Qty: 1 (DME) lancets [OneTouch UltraSoft Lancets] misc 1 ea Miscellaneous DAILY Qty: 90 4RF Rx Instructions: test daily before breakfast melatonin 5 mg capsule 5 mg PO HS (DME) OneTouch Ultra Test Strip 1 ea Miscellaneous DAILY Qty: 90 3RF Rx Instructions: test daily before breakfast lactulose 10 gram packet 10 g PO DAILY PRN (Reason: constipation) Qty: 30 1RF (DME) [employer] Shantell 2 Sensor Kit See Rx Instructions .MEDSUPPLY Qty: 1 11RF Rx Instructions: As directed insulin glargine [Lantus Solostar U-100 Insulin] 100 unit/mL (3 mL) insulin pen 30 unit SUBCUT HS Rx Instructions: Decrease per [facility]. 06/12/23. -hb nitroglycerin 0.4 mg tablet, sublingual 0.4 mg sublingual Q5M PRN (Reason: chest pain) Qty: 25 0RF Rx Instructions: take as needed q 5 mins for c/p until gone if take 3 pills and pain persists, call MD (DME) [employer] Shantell 2 [facility] See Rx Instructions .MEDSUPPLY Qty: 1 0RF Rx Instructions: As directed metolazone 5 mg tablet 5 mg PO .q Th, Mon PRN (Reason: weight gain 3lbs/day or 7 lbs/week) Qty: 30 2RF tamsulosin 0.4 mg capsule 0.4 mg PO HS Qty: 90 3RF finasteride 5 mg tablet 5 mg PO DAILY Qty: 90 3RF (DME) pen needle, diabetic [Comfort EZ Pen Valentines] 33 gauge x 3/16 needle See Rx Instructions .ROUTE .MEDSUPPLY Qty: 400 3RF Rx Instructions: inject 4 x/day metoprolol succinate [Toprol XL] 100 mg tablet extended release 24 hr 25 mg PO BID Qty: 45 3RF Rx Instructions: 07/03/[address] Dominguez. -hb pravastatin 40 mg tablet 40 mg PO QPM Qty: 90 3RF gabapentin 100 mg capsule 200 mg PO HS Qty: 180 3RF pantoprazole 40 mg tablet,delayed release (DR/EC) 40 mg PO DAILY Eliquis 2.5 mg tablet 2.5 mg PO BID Qty: 14 0RF acetaminophen [Tylenol] 325 mg Tablet 650 mg PO Q4H PRN PRNQty: 0 0RF insulin aspart U-100 [Novolog FlexPen U-100 Insulin] 100 unit/mL (3 mL) insulin pen 20 sliding scale dose SUBCUT DIRECTED Patient Comments: has not needed for a while due to not eating enough Rx Instructions: -No rapid acting insulin with breakfast or lunch. -20 units + SSI 2:50>150 with dinner. polyethylene glycol 3350 17 gram Powder In Packet 17 g PO DAILY Qty: 0 0RF Daily Multivitamin with Iron 18-400 mg-mcg tablet 1 tab PO DAILY diclofenac sodium 3 % Gel 100 g topical QID Qty: 0 0RF lidocaine 5 % Adhesive Patch,Medicated 2 patch topical Q24H Qty: 0 0RF Patient Comments: Apply to right knee docusate sodium [Colace] 100 mg capsule 100 mg PO DAILY Changed torsemide 20 mg tablet 20 mg PO DAILY Qty: 0 0RF Discharge Instructions Instructions: How to Prevent Catheter Associated Urinary Tract Infections, Low- potassium diet, Urinary Tract Infection, Adult ED Additional Instructions: You are found to have a recurrent urinary tract infection.Your Griffin catheter was changed and the urine culture grew Serratia which we treated with ceftriaxone. You will be discharged home on Levaquin 500 mg every other day for 3 doses. You should arrange telehealth visit with Dr. Santos as well as your primary care provider in the next week. You were also treated for hyperkalemia this is an elevated potassium level caused by your worsening kidney function. Your potassium level peaked at 5.9 mmol/L and you were treated with Lokelma which brought your potassium level down to 4.1. You should have a repeat lab work next week including a BMP. We will ask the visiting nurse to draw this lab work and sent to your primary care provider. Avoid high potassium foods you should be on a diabetic/renal diet. Stand Alone Forms: Nursing Discharge Form Referrals: Naveen Santos MD [ [facility] STAFF PHYSICIAN] - (Please call the office on Saturday to make a follow up. ) Gordo Dominguez MD [Primary Care Provider] - (Please call the office on Saturday for a hospital follow up. ) Activity:: Activity as Tolerated Equipment/Supplies:: No Equipment Needed Diet:: Carb Counting Discharge Orders Discharge Orders: Discharge Order (Routine); Ordered 07/11/24 Ordered By: Robert Traore Other Ambulatory Orders: Urinalysis (Routine) Timeframe: 1 Week Facility: [facility] - Location: Laboratory Outpatient - [facility] Ordered By: Robert Traore Basic Metabolic Panel (Routine) Timeframe: [address] Facility: [facility] - Location: Laboratory Outpatient - [facility] Ordered By: Robert Traore DS: Summary Time Spent with Patient providing and/or coordinating discharge services: Greater than 30 minutes Specific discharge activities: Interview/exam of patient; review of discharge instructions, completion of prescriptions/discharge instructions; discussion w/ nursing and CM; documentation of hospital visit Status at Discharge Functional status at discharge: bed bound Overall status at discharge: patient is back to baseline Mental Status: mental status grossly normal Speech and Movement: speech and movement normal Mood: congruent mood Affect: normal affect Quality:SDOH Health Related Social Needs: Health related social needs risk of homeless Exam Narrative Exam Narrative: Sav is lying in bed in semi-Best position, He says that the diarrhea resolved by midnight last nijght and he slept through the night. LUngs: clear Heart: irregularly irregular, controlled rate Abdomen: obese but soft and nondistended, normal bowel sounds Legs: pitting edema has improved, down to trace, chronic skin changes c/w venous stasis Psych Mental Status: mental status grossly normal Speech and Movement: speech and movement normal Mood: congruent mood Affect: normal affect DS: Data Vitals/I&O Vitals and I&O: Vital Signs Temperature 36 C L 07/12/24 11:37 Temperature Source Temporal Artery Scan 07/12/24 11:37 Pulse 64 07/12/24 11:37 Pulse Rhythm Irregular 07/12/24 02:38 Pulse 71 07/07/24 14:30 Respiratory Rate 20 07/12/24 11:37 Respiratory Effort Short of Breath 07/12/24 02:38 Respiratory Depth Shallow 07/12/24 02:38 Respiratory Pattern Normal 07/12/24 02:38 Blood Pressure 96/46 L 07/12/24 11:37 Blood Pressure Mean 78 07/07/24 11:45 Blood Pressure Position Supine 07/07/24 11:31 Pulse Oximetry 96 07/12/24 11:37 Oxygen Delivery Method Room Air 07/12/24 11:37 Oxygen Flow Rate 0 07/12/24 11:37 Fraction of Inspired Oxygen (FIO2) 21 07/11/24 22:54 Pain Level 0 07/12/24 07:30 Comment Will inform RN of BP (taken on rt lower arm) 07/12/24 11:37 Intake & Output 07/11/24 07/12/24 07/12/24 23:59 11:59 23:59 Intake Total 250 / 450 180 / 180 Output Total 950 / 2200 650 / 650 Balance -700 / -1750 -470 / -470 Intake: IV 50 / 50 0 / 0 Oral 200 / 400 180 / 180 Output: Urine 950 / 2200 650 / 650 Other: Urine Color Yellow Yellow Urine Appearance Cloudy Cloudy Urine Odor Strong Stool Size Moderate Moderate Stool Characteristics Liquid Soft Brown Voiding Methods Incontinent Indwelling Catheter PFSH All Active Problems (Updated 07/12/24 @ 12:59 by Robert Traore MD) Palliative care encounter (Acute) Itching (Acute) ACP (advance care planning) (Acute) DVT prophylaxis (Acute) Acute UTI (Acute) Pain (Acute) Periprosthetic fracture around internal prosthetic right knee joint (Acute) Loose right total knee arthroplasty (Acute) Right knee pain (Acute) Acute UTI (Acute) Edema (Acute) Cloudy urine (Acute) Lesion of pancreas (Acute) Obstructive uropathy (Chronic) 06/12/23 Per [facility]. -hb Need for home health care (Acute) History of fall (Acute) Noninfected skin tear of left lower extremity (Acute) Fall (Acute) Skin tear of left lower leg without complication (Acute) Hyperkalemia (Acute) VRE (vancomycin resistant enterococcus) culture positive (Acute) Hydronephrosis, left (Acute) Hyperphosphatemia (Acute) Pressure ulcer of right ischium (Acute) Chronic indwelling Griffin catheter (Acute) Acute renal failure (Acute) Acute UTI (Acute) Chronic kidney disease (Chronic) 2020- borderline stage 4 Venous insufficiency (chronic) (peripheral) (Acute) Nail dystrophy (Acute) COVID-19 (Acute ~08/05/22) Thumb pain (Acute) Right heart failure (Acute) Urinary retention (Acute) 11/2021, ultrasound shows significant pretty and post void residual- minimal response to voiding Anemia (Chronic) Chronic mild anemia, associated with CKD Obstructive sleep apnea (Chronic) cpap Acute on chronic heart failure with preserved ejection fraction (Acute) Hives (Acute) Obesity (Acute 02/11/13) Obstructive nephropathy (Acute) Moderate pulmonary arterial systolic hypertension (Chronic) Chronic anticoagulation (Chronic) Polyp of colon (Chronic) Rosacea (Chronic) Constipation (Chronic) Medical History CKD (chronic kidney disease) stage 5, GFR 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 Deficit in activities of daily living (ADL) Kidney stones Longstanding history of multiple stones 11/2021 ultrasound showed multiple stones in kidney, 1 stone possibly in right ureter Atrial fibrillation on coumadin Diabetes mellitus CHF (congestive heart failure) 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 Daughter No problems noted. Social History Smoking/Tobacco Use Status: Never Second Hand Exposure: No Smoking risk assessment performed?: Yes Alcohol Intake: current Alcohol Intake frequency: holidays/special occasions only Drug use: Never Substance use type: does not use Caregiver/Support person: Yes Household members: spouse Housing: house Communication Needs: Hard of Hearing Do you need help understanding health information?: Often Pets and animals: No Sexually active: No What is your relationship status?: How often do you talk on the phone with friends or family?: decline to answer How often do you get together with friends or relatives?: decline to answer How often do you attend lutheran or baptist services?: decline to answer Do you belong to any clubs or organized social groups?: decline to answer Panel score (0-1 are the most socially isolated patients): 1 What type of physical activity do you participate in: walking Duration: < 15 minutes/day Frequency: daily Special amor needs: No Do you feel safe at home: Yes Do you feel safe in your relationship?: Yes Time Spent with Patient Time Spent with Patient: 45-69 minutes Time was spent: preparing to see the patient(eg.review tests), ordering medications,tests, procedures, referring, communicating with other health healthcare recruiter, indepentently interpreting results, counseling the patient and care coordination
--- NOTE | 2024-07-12 13:52 | PDOC.HHF2F ---
Home Health Referral Home Health Orders Clinical synopsis of why skilled professionals are needed: Patient presented to the hospital w/ hyperkalemia K 5.9 treated w/ Lokelma w/ resolution to K of 4.1. and UTI Ilya amaro, treated w/ 5 days of Ceftriaxone then put on oral Levaquin. Patient is severely debilitated d/t his morbid obesity and CKD. He had physical therapy but still requires 2 person assist to transfer in/out of bed. He has chronic indwelling griffin catheter which needs changed monthly and sooner if signs of infection. Griffin was changed this admission. Patient need nursing to draw/monitor labs, instruct family in low potassium/renal diet, coordinate medication changes w/ his PCP and his urologist and to change the griffin catheter monthly. Home health aid is needed to assist his in the personal care of the patient. P.T. and O.T. is needed to work w/ the patient on improving his strength, balance and ADL performance w/ a goal to achieve independence on self care. Medical diagnosis necessitation home health referral: Chronic kidney disease stage 5, hyperkalemia, UTI, atrial fibrillation, congestive heart failure, diabetes mellitus Registered Nurse: Check all that apply Instruct on new or changed medication(s)/assess compliance: Ordered Instruct on, and maintenance of, urinary device: Ordered Assess for exacerbation of medical condition, instruct patient/caregivers on signs and symptoms to report for early detection: Ordered Physical Therapist: Check all that apply Increase strength & endurance for safe mobility at home: Ordered To design/establish home maintenance program: Ordered Fall reduction therapy program for patient with history of frequent falls: Ordered Home safety evaluation and teaching/gait training including stair management (if applicable): Ordered Occupational Therapist: Evaluate and treat for patient unable to perform ADL/IADL/self-care: Ordered Fiction And Nonfiction Writer Prose: Assist with community resources: Ordered Home Bound Status Requires the aid of supportive device (check all that apply): Walker Describe why leaving home would require a considerable and taxing effort: Safety Concerns: describe (high ris of falls) Encounter Date and Reason: I certify that a FTF encounter for this patient was performed on July 12, 2024 and that such encounter was related to the primary reason the patient requires home health services. The encounter was conducted in the following manner: By me as the certifying physician, SIGN BOARD ERECTOR, PA or By an inpatient physician, SIGN BOARD ERECTOR or PA during an inpatient stay who communicated findings to me, Certification And Authentication I certify that I composed the above information based on my clinical judgment relating to this patient's medical condition and, if applicable, clinical findings communicated to me by the NPP or inpatient physician who performed the FTF encounter. Name of Provider that will be monitoring home health services: Gordo Dominguez
[2024-07-13 08:35] LABS: Methylmalonic Acid 0.79 nmol/mL (<=0.40)
== END 2024-07-12 13:40 | disposition home health service (06) | DRG 699 ==
LOC: ER 17:04 → MS 07-08 08:20
PROVIDERS: Admitting Provider Internal Medicine; Emergency Provider Emergency Medicine; PCP Family Medicine; Visit Provider Internal Medicine
DX: I48.20 Chronic atrial fibrillation, unspecified (principal); I50.32 Chronic diastolic (congestive) heart failure; T83.511A Infection and inflammatory reaction due to indwelling urethral catheter, initial encounter; Z68.41 Body mass index [BMI] 40.0-44.9, adult; N18.5 Chronic kidney disease, stage 5; N13.8 Other obstructive and reflux uropathy; N39.0 Urinary tract infection, site not specified; E87.5 Hyperkalemia; G47.33 Obstructive sleep apnea (adult) (pediatric); E11.22 Type 2 diabetes mellitus with diabetic chronic kidney disease; E66.9 Obesity, unspecified; K21.9 Gastro-esophageal reflux disease without esophagitis; N40.1 Benign prostatic hyperplasia with lower urinary tract symptoms; R29.6 Repeated falls; Z79.4 Long term (current) use of insulin; I87.2 Venous insufficiency (chronic) (peripheral); D63.1 Anemia in chronic kidney disease; I27.21 Secondary pulmonary arterial hypertension; Z79.01 Long term (current) use of anticoagulants; L71.9 Rosacea, unspecified; E78.5 Hyperlipidemia, unspecified; K59.01 Slow transit constipation; Y73.1 Therapeutic (nonsurgical) and rehabilitative gastroenterology and urology devices associated with adverse incidents; B96.89 Other specified bacterial agents as the cause of diseases classified elsewhere
CPT/HCPCS: 00123; 36415; 76770; 80048; 80053; 80186; 83090; 87077; 87637; 93005; 94640; 96361; 96365; 96366; 96367; 96372; 97110; 97162; 97530; 99285; 70450; 71045; 81003; 81015; 82270; 84132; 85025; 85610; 87086; 87186; 93010; 94660; 94760; 99222; 99231; 99233; 99239; J0613; J0696; J1644; J1815; J2212; J3490; J7613

== ENCOUNTER → 2024-07-14 09:11 | Outpatient (BNVA) | payer MEDICARE, SELFPAY | PROVIDERS: PCP Family Medicine; Referring Provider Family Medicine; Visit Provider Urology | DX: Z97.8 Presence of other specified devices (principal) ==